=== PATIENT | female | born 1970 | race Caucasian/White ===

== ENCOUNTER 2020-07-08 17:27 | Inpatient (IN) | payer OTHER ==
[2020-07-08] MEDS ORDERED: IPRATROPIUM 0.5 MG/2.5 ML NEBU INHALATION STA (18:18)
[2020-07-08] MEDS ORDERED: ALBUTEROL NEBULIZED 2.5 MG/3 ML INHALATION STA (18:18)
[2020-07-08] MEDS ORDERED: SODIUM CHLORIDE 0.9% 500 ML 500 ML IV STA (18:18)
[2020-07-08] MEDS ORDERED: methylPREDNISolone SOD SUCCI 125 MG/2 ML VIAL IV STA (18:18)
[2020-07-08] MEDS ORDERED: cefTRIAXone IN SWFI 1,000 MG/10 ML SYRINGE IVP STA (18:22)
--- NOTE | 2020-07-08 18:35 | ED ---
General Adult HPI - General Chief complaint: Upper Respiratory Infection Stated complaint: near syncope Time Seen by Provider: 07/08/20 18:10 Source: patient Mode of arrival: ambulatory Limitations: no limitations - History of Present Illness Initial comments: 49-year-old female history of recurrent pneumonia, COPD, current smoker presenting for evaluation of cough and dyspnea. Patient states her symptoms have been on and off for the past several weeks. She has been admitted at outside hospitals with a bilateral pneumonia. She does report subjective fever and chills. She has a productive cough. She denies some left-sided chest pain worse with cough. No central radiating chest pain. No abdominal pain or vomiting. - Related Data Home Medications Medication Instructions Recorded Confirmed ALPRAZolam [Xanax] 0.5 mg PO TID 07/08/20 07/08/20 Albuterol Inhaler [Ventolin Hfa 2 puff INHALATION RT-TID PRN 07/08/20 07/08/20 Inhaler] Aspirin EC [Ecotrin Low Dose] 81 mg PO DAILY 07/08/20 07/08/20 Atorvastatin [Lipitor] 80 mg PO HS 07/08/20 07/08/20 Clopidogrel [Plavix] 75 mg PO DAILY 07/08/20 07/08/20 Cyclobenzaprine [Flexeril] 10 mg PO TID 07/08/20 07/08/20 Escitalopram [Lexapro] 20 mg PO DAILY 07/08/20 07/08/20 Hydrocodone/Acetaminophen [[place] 1 tab PO Q4-6H PRN 07/08/20 07/08/20 10-325] Isosorbide Mononitrate [Imdur] 120 mg PO BID 07/08/20 07/08/20 Metoprolol Tartrate [Lopressor] 50 mg PO BID 07/08/20 07/08/20 Omeprazole 40 mg PO BID 07/08/20 07/08/20 Pregabalin [Lyrica] 75 mg PO BID 07/08/20 07/08/20 Ranolazine [Ranolazine ER] 1,000 mg PO BID 07/08/20 07/08/20 amLODIPine [Norvasc] 10 mg PO DAILY 07/08/20 07/08/20 diphenhydrAMINE HCL [Benadryl] 50 mg PO HS 07/08/20 07/08/20 Allergies Allergy/AdvReac Type Severity Reaction Status Date / Time No Known Allergies Allergy Verified 07/08/20 17:45 Review of Systems ROS Statement: Those systems with pertinent positive or pertinent negative responses have been documented in the HPI. ROS Other: All systems not noted in ROS Statement are negative. Past Medical History Past Medical History: Asthma, Coronary Artery Disease (CAD), COPD, Diabetes Mellitus, GERD/Reflux, Osteoarthritis (OA) Additional Past Medical History / Comment(s): DDD History of Any Multi-Drug Resistant Organisms: None Reported Past Surgical History: Coronary Bypass/CABG, Heart Catheterization With Stent Past Psychological History: Anxiety, Bipolar Smoking Status: Current every day smoker Past Alcohol Use History: Occasional Past Drug Use History: Marijuana General Exam Limitations: no limitations General appearance: alert, in no apparent distress Head exam: Present: atraumatic, normocephalic Eye exam: Present: normal appearance, PERRL ENT exam: Present: mucous membranes dry Neck exam: Present: normal inspection. Absent: tenderness, meningismus Respiratory exam: Present: respiratory distress, wheezes Cardiovascular Exam: Present: regular rate, normal rhythm GI/Abdominal exam: Present: soft. Absent: distended, tenderness, guarding Extremities exam: Present: normal inspection, normal capillary refill. Absent: pedal edema Neurological exam: Present: alert, oriented X3, CN II-XII intact. Absent: motor sensory deficit Psychiatric exam: Present: normal affect, normal mood Course Vital Signs 07/08/20 07/08/20 07/08/20 17:46 18:25 18:42 Temperature 97.9 F Pulse Rate 81 77 63 Respiratory 18 26 H 20 Rate Blood Pressure 129/83 O2 Sat by Pulse 94 L 100 Oximetry 07/08/20 18:51 Temperature Pulse Rate 68 Respiratory 20 Rate Blood Pressure O2 Sat by Pulse Oximetry EKG Findings - EKG Comments: EKG Findings:: EKG: Normal sinus rhythm, rate 75, VT interval 120, QRS duration 96, QTC 424, no ST segment elevation. Medical Decision Making - Medical Decision Making 49-year-old female with cough and dyspnea. Patient has diffuse bronchospastic cough, wheezing, mild respiratory distress. She is stable vitals on arrival. Workup reveals chest x-ray concerning for pulmonary fibrosis, no focal pneumonia. She has an elevated white blood cell count of 21.6. Hemoglobin is 10.0 with no baseline for comparison. She has normal electrolytes. Negative troponin, nonischemic EKG sinus rhythm. Patient will be admitted for COPD exacerbation. Case discussed with Dr. Cotton - Lab Data Result diagrams: 07/08/20 18:54 07/08/20 18:54 Lab Results 07/08/20 07/08/20 07/08/20 Range/Units 18:54 18:54 18:54 WBC 21.6 H (3.8-10.6) k/uL RBC 3.51 L (3.80-5.40) m/uL Hgb 10.0 L (11.4-16.0) gm/dL Hct 31.9 L (34.0-46.0) % MCV 91.0 (80.0-100.0) fL MCH 28.6 (25.0-35.0) pg MCHC 31.4 (31.0-37.0) g/dL RDW 15.4 (11.5-15.5) % Plt Count 512 H (150-450) k/uL Neutrophils % 78 % Lymphocytes % 17 % Monocytes % 4 % Eosinophils % 0 % Basophils % 0 % Neutrophils # 16.9 H (1.3-7.7) k/uL Lymphocytes # 3.6 (1.0-4.8) k/uL Monocytes # 0.8 (0-1.0) k/uL Eosinophils # 0.0 (0-0.7) k/uL Basophils # 0.0 (0-0.2) k/uL Hypochromasia Slight Sodium 139 (137-145) mmol/L Potassium 4.4 (3.5-5.1) mmol/L Chloride 108 H (98-107) mmol/L Carbon Dioxide 25 (22-30) mmol/L Anion Gap 6 mmol/L BUN 17 (7-17) mg/dL Creatinine 0.86 (0.52-1.04) mg/dL Est GFR (CKD-EPI)AfAm >90 (>60 ml/min/1.73 sqM) Est GFR (CKD-EPI)NonAf 79 (>60 ml/min/1.73 sqM) Glucose 145 H (74-99) mg/dL Plasma Lactic Acid Sarthak 1.3 (0.7-2.0) mmol/L Calcium 9.7 (8.4-10.2) mg/dL Magnesium 2.0 (1.6-2.3) mg/dL Total Bilirubin 0.4 (0.2-1.3) mg/dL AST 24 (14-36) U/L ALT 19 (4-34) U/L Alkaline Phosphatase 123 (38-126) U/L Troponin I (0.000-0.034) ng/mL NT-Pro-B Natriuret Pep pg/mL Total Protein 6.8 (6.3-8.2) g/dL Albumin 4.1 (3.5-5.0) g/dL 07/08/20 07/08/20 Range/Units 18:54 18:54 WBC (3.8-10.6) k/uL RBC (3.80-5.40) m/uL Hgb (11.4-16.0) gm/dL Hct (34.0-46.0) % MCV (80.0-100.0) fL MCH (25.0-35.0) pg MCHC (31.0-37.0) g/dL RDW (11.5-15.5) % Plt Count (150-450) k/uL Neutrophils % % Lymphocytes % % Monocytes % % Eosinophils % % Basophils % % Neutrophils # (1.3-7.7) k/uL Lymphocytes # (1.0-4.8) k/uL Monocytes # (0-1.0) k/uL Eosinophils # (0-0.7) k/uL Basophils # (0-0.2) k/uL Hypochromasia Sodium (137-145) mmol/L Potassium (3.5-5.1) mmol/L Chloride (98-107) mmol/L Carbon Dioxide (22-30) mmol/L Anion Gap mmol/L BUN (7-17) mg/dL Creatinine (0.52-1.04) mg/dL Est GFR (CKD-EPI)AfAm (>60 ml/min/1.73 sqM) Est GFR (CKD-EPI)NonAf (>60 ml/min/1.73 sqM) Glucose (74-99) mg/dL Plasma Lactic Acid Sarthak (0.7-2.0) mmol/L Calcium (8.4-10.2) mg/dL Magnesium (1.6-2.3) mg/dL Total Bilirubin (0.2-1.3) mg/dL AST (14-36) U/L ALT (4-34) U/L Alkaline Phosphatase (38-126) U/L Troponin I <0.012 (0.000-0.034) ng/mL NT-Pro-B Natriuret Pep 1930 pg/mL Total Protein (6.3-8.2) g/dL Albumin (3.5-5.0) g/dL Disposition Clinical Impression: COPD exacerbation Disposition: ADMITTED IP TO THIS HOSP Condition: Stable Is patient prescribed a controlled substance at d/c from ED?: No Referrals: Nonstaff,Physician [Primary Care Provider] - 1-2 days Decision to Admit Reason: Admit from EC Decision Date: 07/08/20 Decision Time: 19:53
[2020-07-08 19:21] LABS: Basophils % (A) 0 %; Eosinophils % (A) 0 %; HCT 31.9 % (34.0-46.0); Hypochromasia Slight; Lymphocytes # (A) 3.6 k/uL (1.0-4.8); Lymphocytes % (A) 17 %; MCH 28.6 pg (25.0-35.0); MCHC 31.4 g/dL (31.0-37.0); Mean Platelet Volume 7.2; Monocytes # (A) 0.8 k/uL (0-1.0); Monocytes % (A) 4 %; Neutrophils # (A) 16.9 k/uL (1.3-7.7); Neutrophils % (A) 78 %; Platelet Count 512 k/uL (150-450); RBC 3.51 m/uL (3.80-5.40); RDW 15.4 % (11.5-15.5); WBC 21.6 k/uL (3.8-10.6)
--- NOTE | 2020-07-08 19:28 | XR ---
EXAMINATION TYPE: XR chest 2V DATE OF EXAM: 07/08/2020 COMPARISON: NONE HISTORY: Difficulty breathing TECHNIQUE: 3 views FINDINGS: Heart is normal. Lungs are clear of consolidation. There are sternal wires. There are chest leads. Costophrenic angles are clear. There is very slight coarsening of interstitial markings. IMPRESSION: Mild pulmonary fibrotic changes. No heart failure seen.
[2020-07-08 19:30] LABS: ALT 19 U/L (4-34); AST 24 U/L (14-36); African American GFR (CKD) >90 (>60 ml/min/1.73 sqM); Albumin 4.1 g/dL (3.5-5.0); Alkaline Phosphatase 123 U/L (38-126); Anion Gap 6 mmol/L; Blood Urea Nitrogen 17 mg/dL (7-17); Calcium 9.7 mg/dL (8.4-10.2); Carbon Dioxide 25 mmol/L (22-30); Chloride 108 mmol/L (98-107); Glucose 145 mg/dL (74-99); Non-African American GFR(CKD) 79 (>60 ml/min/1.73 sqM); Potassium 4.4 mmol/L (3.5-5.1); Sodium 139 mmol/L (137-145); Total Bilirubin 0.4 mg/dL (0.2-1.3); Total Protein 6.8 g/dL (6.3-8.2)
[2020-07-08] MEDS ORDERED: IPRATROPIUM-ALBUTEROL 3 ML NEB INHALATION PRN (19:51)
[2020-07-08] MEDS ORDERED: HYDROmorphone 1 MG/ML 1 ML SYRINGE IVP STA (19:57)
[2020-07-08 19:59] LABS: INR 0.9 (<1.2); Prothrombin Time 9.2 sec (9.0-12.0)
[2020-07-08 20:00] LABS: Partial Thromboplastin Time 20.8 sec (22.0-30.0)
[2020-07-08] MEDS: IPRATROPIUM-ALBUTEROL 3 ML NEB INHALATION SCH (20:10)
[2020-07-08] MEDS: CYCLOBENZAPRINE 10 MG TAB PO SCH (22:34)
[2020-07-08] MEDS: ALPRAZolam 0.5 MG TAB PO SCH (22:34)
[2020-07-08] MEDS: ATORVASTATIN 80 MG TAB PO SCH (22:34)
[2020-07-08] MEDS: PANTOPRAZOLE 40 MG TABLET PO SCH (22:35)
[2020-07-08] MEDS: METOPROLOL TARTRATE 50 MG TAB PO SCH (22:35)
[2020-07-08] MEDS: ISOSORBIDE MONONITRATE ER 60 MG TAB.ER.24H PO SCH (22:35)
[2020-07-09] MEDS: methylPREDNISolone SOD SUCCI 125 MG/2 ML VIAL IV SCH ×4 (00:43→17:30)
[2020-07-09 05:56] LABS: Glucose,Whole Blood 453 mg/dL (75-99)
[2020-07-09] MEDS: INSULIN ASPART (NovoLOG) 100 UNIT/ML VIAL SQ SCH ×4 (06:27→21:46)
[2020-07-09 06:54] LABS: Glucose,Whole Blood 396 mg/dL (75-99)
[2020-07-09] MEDS: IPRATROPIUM-ALBUTEROL 3 ML NEB INHALATION SCH ×4 (07:56→20:09)
[2020-07-09] MEDS: METOPROLOL TARTRATE 50 MG TAB PO SCH ×2 (08:08→21:48)
[2020-07-09] MEDS: ASPIRIN 81 MG PO SCH (08:08)
[2020-07-09] MEDS: ALPRAZolam 0.5 MG TAB PO SCH ×3 (08:08→21:47)
[2020-07-09] MEDS: amLODIPine 10 MG TAB PO SCH (08:09)
[2020-07-09] MEDS: ESCITALOPRAM 20 MG TAB PO SCH (08:09)
[2020-07-09] MEDS: RANOLAZINE 500 MG TAB.ER.12H PO SCH ×2 (08:09→21:47)
[2020-07-09] MEDS: CLOPIDOGREL 75 MG TAB PO SCH (08:09)
[2020-07-09] MEDS: CYCLOBENZAPRINE 10 MG TAB PO SCH ×3 (08:09→21:47)
[2020-07-09] MEDS: PANTOPRAZOLE 40 MG TABLET PO SCH ×2 (08:09→21:47)
[2020-07-09] MEDS: ISOSORBIDE MONONITRATE ER 60 MG TAB.ER.24H PO SCH (08:09)
[2020-07-09] MEDS: HYDROcodone/APAP 10-325MG 1 EACH TAB PO PRN ×2 (11:31→17:33)
[2020-07-09] MEDS: AZITHROMYCIN 500 MG TAB PO SCH (11:32)
[2020-07-09 11:39] LABS: Glucose,Whole Blood 245 mg/dL (75-99)
--- NOTE | 2020-07-09 12:28 | P.HPIM ---
History of Present Illness This is a pleasant 49 years old female with past medical history of diabetes mellitus, COPD, coronary artery disease, asthma, GERD, osteoarthritis, she is a status post CABG and cardiac bypass surgery. She is a cigarette smoker with anxiety and depression. She is a patient of Dr. Steele .Patient states she came to the hospital because of dyspnea of one week duration, earlier today week and she went to [facility] until her she has pneumonia but she refused to stay and she went to [facility] before she's been transferred to this hospital [facility]. Besides the dyspnea also patient complaining of from with cough but no thickness coming up associated with significant right lateral chest pain felt like sharp increased with coughing and deep breathing. Also she has loose bowel movements about 4 times per day with some vomiting but no abdominal pain She denies depression. She smokes about 1 pack per day and she is consult and she wants nicotine patch. Occasional alcohol and she uses marijuana daily. Vitals are stable and she saturating 95% and 2 L oxygen via nasal cannula patient is afebrile. Labs showed leukocytosis of 21.6. Hemoglobin is 10 and platelets 512. BMP is unremarkable, glucose is elevated 453 and 396. Liver enzymes are unremarkable and troponin is negative less than 0.012, proBNP is 1930. EKG showing normal sinus rhythm at 79 BPM. Chest x-ray showing mild pulmonary fibrotic changes with no heart failure seen. In the emergency room patient was given antibiotic block ceftazidime and ceftriaxone, and started on some Medrol 60 mg, Protonix twice daily and 500 bolus of normal saline. Review of Systems CONSTITUTIONAL: No fever, no malaise, no fatigue. HEENT: No recent visual problems or hearing problems. Denied any sore throat. CARDIOVASCULAR: No orthopnea, PND, no palpitations, no syncope. PULMONARY: No shortness of breath, no cough, no hemoptysis. GASTROINTESTINAL: No diarrhea, no nausea, no vomiting, no abdominal pain. Normoactive bowel sounds. NEUROLOGICAL: No headaches, no weakness, no numbness. HEMATOLOGICAL: Denies any bleeding or petechiae. GENITOURINARY: Denies any burning micturition, frequency, or urgency. MUSCULOSKELETAL/RHEUMATOLOGICAL: Denies any joint pain, swelling, or any muscle pain. ENDOCRINE: Denies any polyuria or polydipsia. Past Medical History Past Medical History: Asthma, Coronary Artery Disease (CAD), COPD, Diabetes Mellitus, GERD/Reflux, Osteoarthritis (OA) Additional Past Medical History / Comment(s): DDD History of Any Multi-Drug Resistant Organisms: None Reported Past Surgical History: Coronary Bypass/CABG, Heart Catheterization With Stent Past Anesthesia/Blood Transfusion Reactions: No Reported Reaction Date of Last Stent Placement:: 11/2018 Past Psychological History: Anxiety, Bipolar Smoking Status: Current every day smoker Past Alcohol Use History: Occasional Past Drug Use History: Marijuana Medications and Allergies Home Medications Medication Instructions Recorded Confirmed Type ALPRAZolam [Xanax] 0.5 mg PO TID 07/08/20 07/08/20 History Albuterol Inhaler [Ventolin Hfa 2 puff INHALATION RT-TID PRN 07/08/20 07/08/20 History Inhaler] Aspirin EC [Ecotrin Low Dose] 81 mg PO DAILY 07/08/20 07/08/20 History Atorvastatin [Lipitor] 80 mg PO HS 07/08/20 07/08/20 History Clopidogrel [Plavix] 75 mg PO DAILY 07/08/20 07/08/20 History Cyclobenzaprine [Flexeril] 10 mg PO TID 07/08/20 07/08/20 History Escitalopram [Lexapro] 20 mg PO DAILY 07/08/20 07/08/20 History Hydrocodone/Acetaminophen [[place] 1 tab PO Q4-6H PRN 07/08/20 07/08/20 History 10-325] Metoprolol Tartrate [Lopressor] 50 mg PO BID 07/08/20 07/08/20 History Omeprazole 40 mg PO BID 07/08/20 07/08/20 History Pregabalin [Lyrica] 75 mg PO BID 07/08/20 07/08/20 History Ranolazine [Ranolazine ER] 1,000 mg PO BID 07/08/20 07/08/20 History amLODIPine [Norvasc] 10 mg PO DAILY 07/08/20 07/08/20 History diphenhydrAMINE HCL [Benadryl] 50 mg PO HS 07/08/20 07/08/20 History Isosorbide Dinitrate 30 mg PO BID 07/09/20 07/09/20 History Allergies Allergy/AdvReac Type Severity Reaction Status Date / Time No Known Allergies Allergy Verified 07/08/20 17:45 Physical Exam Vitals: Vital Signs Temp Pulse Pulse Resp BP BP Pulse Ox 07/09/20 08:05 97.6 F 79 16 114/70 95 07/09/20 02:56 88 16 07/09/20 02:45 97.9 F 88 16 142/77 92 L 07/08/20 21:00 97.9 F 88 16 142/77 92 L 07/08/20 20:35 83 18 07/08/20 20:28 95 07/08/20 20:26 83 18 07/08/20 18:51 68 20 07/08/20 18:42 63 20 07/08/20 18:25 77 26 H 129/83 100 07/08/20 17:46 97.9 F 81 18 94 L Intake and Output 07/08/20 07/09/20 07/09/20 22:59 06:59 14:59 Intake Total 240 Balance 240 Intake: Oral 240 Other: # Voids 1 1 Weight 89.358 kg GENERAL: The patient is alert and oriented x3, not in any acute distress. Well developed, well nourished. HEENT: Pupils are round and equally reacting to light. EOMI. No scleral icterus. No conjunctival pallor. Normocephalic, atraumatic. No pharyngeal erythema. No thyromegaly. CARDIOVASCULAR: S1 and S2 present. No murmurs, rubs, or gallops. -PULMONARY: Chest is clear to auscultation, harsh breath sounds with wheezing an d prolonged expiration ABDOMEN: Soft, nontender, nondistended, normoactive bowel sounds. No palpable organomegaly. MUSCULOSKELETAL: No joint swelling or deformity. EXTREMITIES: No cyanosis, clubbing, or pedal edema. NEUROLOGICAL: Gross neurological examination did not reveal any focal deficits. SKIN: No rashes. No petechiae Results CBC & Chem 7: 07/08/20 18:54 07/08/20 18:54 Labs: Abnormal Lab Results - Last 24 Hours (Table) 07/08/20 07/08/20 07/08/20 Range/Units 18:54 18:54 18:54 WBC 21.6 H (3.8-10.6) k/uL RBC 3.51 L (3.80-5.40) m/uL Hgb 10.0 L (11.4-16.0) gm/dL Hct 31.9 L (34.0-46.0) % Plt Count 512 H (150-450) k/uL Neutrophils # 16.9 H (1.3-7.7) k/uL APTT 20.8 L (22.0-30.0) sec Chloride 108 H (98-107) mmol/L Glucose 145 H (74-99) mg/dL POC Glucose (mg/dL) (75-99) mg/dL 07/09/20 07/09/20 Range/Units 05:54 06:52 WBC (3.8-10.6) k/uL RBC (3.80-5.40) m/uL Hgb (11.4-16.0) gm/dL Hct (34.0-46.0) % Plt Count (150-450) k/uL Neutrophils # (1.3-7.7) k/uL APTT (22.0-30.0) sec Chloride (98-107) mmol/L Glucose (74-99) mg/dL POC Glucose (mg/dL) 453 H 396 H (75-99) mg/dL Assessment and Plan Assessment: Acute COPD exacerbation Acute tracheobronchitis Reactive gastroenteritis Nicotine dependence 2 diabetes mellitus Gastroesophageal reflux disease Osteoarthritis History of coronary artery disease status post CABG osteoarthritis Substance abuse Plan: This is a pleasant 49 years old female who was admitted for suspected COPD exacerbation. Continue with steroids, breathing treatment and oxygen as needed. Call for pulmonary consult. Continue with ceftriaxone and Zithromax. Sent for sputum culture and C. diff Labs and medication were reviewed.. Continue same treatment. Continue with symptomatic treatment. Resume home medication. Monitor lytes and vitals. DVT and GI prophylaxis. Further recommendations depends on the clinical course of the patient DVT prophylaxis: Subcutaneous heparin GI Prophylaxis: Pepcid PT/OT: Pending Prognosis is guarded
--- NOTE | 2020-07-09 13:05 | P.CNPUL ---
History of Present Illness Consult date: 07/09/20 Requesting physician: Kayleigh Cotton Reason for consult: COPD Chief complaint: Shortness of breath cough and wheezing History of present illness: This is a 49-year-old female, [id number] smoker, continues to smoke, patient is known to have history of severe COPD, however she is not O2 dependent, not prednisone dependent, she has mostly an updraft machine at home, and inhalers. Patient is also known to have history of severe underlying coronary artery disease, previous CABG and multiple stents. Last Monday, the patient was seen by her primary care physician in [place], and she was advised admission to [facility]. She was in the hospital for one day, patient apparently signed out AGAINST MEDICAL ADVICE, readmitted at [facility] for symptoms of COPD exacerbation. Patient was transferred to [facility] with worsening symptoms of cough wheezing and shortness of breath. Patient denies any fever, no chills, no hemoptysis, describes cough as dry hacking cough. Denies any nausea vomiting, she had a few loose bowel movements prior to admission. Patient has history of chronic pain syndrome, and she is maintained on multiple medications for pain control. Chest x-ray on this admission showed no evidence of infiltrate. Her WBC count was noted to be elevated at 21.6 hemoglobin is at 10 electrolytes are normal renal profile is normal. BNP level was a bit elevated at 1930. Review of Systems CONSTITUTIONAL: One episode of fever no malaise, no weight loss. HEENT: No sore throat, no earache, no nasal discharge. CARDIOVASCULAR: History of underlying coronary artery disease, however the patient has no active anginal symptoms PULMONARY: As noted in HPI, mostly symptoms of COPD exacerbation. GASTROINTESTINAL: As noted in HPI. NEUROLOGICAL: No headache blurred vision or dizziness. HEMATOLOGICAL: No clotting bleeding or bruising. GENITOURINARY: Dysuria frequency urgency or hematuria. MUSCULOSKELETAL/RHEUMATOLOGICAL: Chronic pain syndrome. ENDOCRINE: Heat or cold intolerance. Psychiatric: No symptoms of depression. Past Medical History Past Medical History: Asthma, Coronary Artery Disease (CAD), COPD, Diabetes Mellitus, GERD/Reflux, Osteoarthritis (OA) Additional Past Medical History / Comment(s): DDD History of Any Multi-Drug Resistant Organisms: None Reported Past Surgical History: Coronary Bypass/CABG, Heart Catheterization With Stent Past Anesthesia/Blood Transfusion Reactions: No Reported Reaction Date of Last Stent Placement:: 11/2018 Past Psychological History: Anxiety, Bipolar Smoking Status: Current every day smoker Past Alcohol Use History: Occasional Past Drug Use History: Marijuana Medications and Allergies Home Medications Medication Instructions Recorded Confirmed Type ALPRAZolam [Xanax] 0.5 mg PO TID 07/08/20 07/08/20 History Albuterol Inhaler [Ventolin Hfa 2 puff INHALATION RT-TID PRN 07/08/20 07/08/20 History Inhaler] Aspirin EC [Ecotrin Low Dose] 81 mg PO DAILY 07/08/20 07/08/20 History Atorvastatin [Lipitor] 80 mg PO HS 07/08/20 07/08/20 History Clopidogrel [Plavix] 75 mg PO DAILY 07/08/20 07/08/20 History Cyclobenzaprine [Flexeril] 10 mg PO TID 07/08/20 07/08/20 History Escitalopram [Lexapro] 20 mg PO DAILY 07/08/20 07/08/20 History Hydrocodone/Acetaminophen [[place] 1 tab PO Q4-6H PRN 07/08/20 07/08/20 History 10-325] Metoprolol Tartrate [Lopressor] 50 mg PO BID 07/08/20 07/08/20 History Omeprazole 40 mg PO BID 07/08/20 07/08/20 History Pregabalin [Lyrica] 75 mg PO BID 07/08/20 07/08/20 History Ranolazine [Ranolazine ER] 1,000 mg PO BID 07/08/20 07/08/20 History amLODIPine [Norvasc] 10 mg PO DAILY 07/08/20 07/08/20 History diphenhydrAMINE HCL [Benadryl] 50 mg PO HS 07/08/20 07/08/20 History Isosorbide Dinitrate 30 mg PO BID 07/09/20 07/09/20 History Allergies Allergy/AdvReac Type Severity Reaction Status Date / Time No Known Allergies Allergy Verified 07/08/20 17:45 Physical Exam Vitals: Vital Signs Temp Pulse Pulse Resp BP BP Pulse Ox 07/09/20 08:05 97.6 F 79 16 114/70 95 07/09/20 02:56 88 16 07/09/20 02:45 97.9 F 88 16 142/77 92 L 10/14/20 21:00 97.9 F 88 16 142/77 92 L 07/08/20 20:35 83 18 07/08/20 20:28 95 07/08/20 20:26 83 18 07/08/20 18:51 68 20 07/08/20 18:42 63 20 07/08/20 18:25 77 26 H 129/83 100 07/08/20 17:46 97.9 F 81 18 94 L Intake and Output 07/08/20 07/09/20 07/09/20 22:59 06:59 14:59 Intake Total 240 200 Balance 240 200 Intake: Oral 240 Other 200 Other: # Voids 1 1 Weight 89.358 kg Physical Exam: Revealed 49-year-old female in no distress. Head: Atraumatic, normocephalic. HEENT:[Neck is supple.] [No neck masses.] [No thyromegaly.] [No JVD.] PERRLA, EOMI, no icterus. Chest: [Symmetrical chest expansion, diffuse rhonchi and wheezes bilaterally.] Cardiac Exam: [Normal S1 and S2, no S3 gallop, no murmur.] Abdomen: [Obese, Soft, nontender, no megaly, no rebound, no guarding, normal bowel sounds.] Extremities: [No clubbing, trace of bipedal edema, no cyanosis.] Neurological Exam: [No focal neurologic deficit.] Alert and oriented 3. Skin: No rashes. Psychiatric: Normal mood affect and normal mental status examination. Results - Laboratory Findings CBC and BMP: 07/08/20 18:54 07/08/20 18:54 PT/INR, D-dimer PT 9.2 sec (9.0-12.0) 07/08/20 18:54 INR 0.9 (<1.2) 07/08/20 18:54 Abnormal lab findings: Abnormal Labs 07/08/20 07/08/20 07/08/20 18:54 18:54 18:54 WBC 21.6 H RBC 3.51 L Hgb 10.0 L Hct 31.9 L Plt Count 512 H Neutrophils # 16.9 H APTT 20.8 L Chloride 108 H Glucose 145 H POC Glucose (mg/dL) 07/09/20 07/09/20 07/09/20 05:54 06:52 11:37 WBC RBC Hgb Hct Plt Count Neutrophils # APTT Chloride Glucose POC Glucose (mg/dL) 453 H 396 H 245 H - Diagnostic Findings Chest x-ray: image reviewed (Chest x-ray as noted in HPI.) Assessment and Plan Assessment: Impression: Acute exacerbation of COPD. Acute tracheobronchitis. Tobacco dependence syndrome. GERD without esophagitis. Type 2 diabetes. History of underlying coronary artery disease. History of substance abuse. Recommendation: Continue present course of bronchodilators. Continue antibiotics. Continue Solu-Medrol. Continue Symbicort inhaler and DuoNeb updrafts 4 times a day and when necessary. Continue GI and DVT prophylaxis. Possible discharge in the next 48 hours. We'll continue to follow. Counseled regarding smoking cessation. Time with Patient: Greater than 30
[2020-07-09 16:42] LABS: Glucose,Whole Blood 192 mg/dL (75-99)
[2020-07-09] MEDS: SYMBICORT 160-4.5 MCG INHALER INHALATION SCH (20:09)
[2020-07-09] MEDS ORDERED: HEPARIN SODIUM,PORCINE 5,000 UNIT/ML 1 ML VIAL SQ SCH (21:00)
[2020-07-09 21:09] LABS: Glucose,Whole Blood 294 mg/dL (75-99)
[2020-07-09] MEDS: FAMOTIDINE 20 MG/2 ML VIAL IV SCH (21:47)
[2020-07-09] MEDS: ISOSORBIDE DINITRATE 10 MG TAB PO SCH (21:47)
[2020-07-09] MEDS: ATORVASTATIN 80 MG TAB PO SCH (21:48)
[2020-07-09] MEDS: HEPARIN SODIUM,PORCINE 5,000 UNIT/ML 1 ML VIAL SQ SCH (21:48)
[2020-07-10] MEDS: methylPREDNISolone SOD SUCCI 125 MG/2 ML VIAL IV SCH ×5 (00:34→23:46)
[2020-07-10] MEDS: HYDROcodone/APAP 10-325MG 1 EACH TAB PO PRN ×2 (03:28→21:00)
[2020-07-10 06:27] LABS: Glucose,Whole Blood 286 mg/dL (75-99)
[2020-07-10] MEDS: SYMBICORT 160-4.5 MCG INHALER INHALATION SCH ×2 (07:24→20:03)
[2020-07-10] MEDS: IPRATROPIUM-ALBUTEROL 3 ML NEB INHALATION SCH ×4 (07:24→20:04)
[2020-07-10 08:00] LABS: Basophils % (A) 0 %; Eosinophils % (A) 0 %; HCT 32.9 % (34.0-46.0); HGB 10.4 gm/dL (11.4-16.0); Hypochromasia Slight; Lymphocytes # (A) 1.3 k/uL (1.0-4.8); Lymphocytes % (A) 11 %; MCH 28.9 pg (25.0-35.0); MCHC 31.8 g/dL (31.0-37.0); Mean Platelet Volume 7.1; Monocytes # (A) 0.4 k/uL (0-1.0); Monocytes % (A) 4 %; Neutrophils # (A) 9.5 k/uL (1.3-7.7); Neutrophils % (A) 84 %; Platelet Count 479 k/uL (150-450); RBC 3.61 m/uL (3.80-5.40); RDW 15.6 % (11.5-15.5); WBC 11.3 k/uL (3.8-10.6)
[2020-07-10 08:10] LABS: African American GFR (CKD) >90 (>60 ml/min/1.73 sqM); Anion Gap 6 mmol/L; Blood Urea Nitrogen 15 mg/dL (7-17); Calcium 9.2 mg/dL (8.4-10.2); Carbon Dioxide 27 mmol/L (22-30); Chloride 103 mmol/L (98-107); Glucose 273 mg/dL (74-99); Non-African American GFR(CKD) >90 (>60 ml/min/1.73 sqM); Sodium 136 mmol/L (137-145)
[2020-07-10] MEDS: INSULIN ASPART (NovoLOG) 100 UNIT/ML VIAL SQ SCH ×4 (08:29→21:01)
[2020-07-10] MEDS: ASPIRIN 81 MG PO SCH (08:35)
[2020-07-10] MEDS: amLODIPine 10 MG TAB PO SCH (08:35)
[2020-07-10] MEDS: ALPRAZolam 0.5 MG TAB PO SCH ×3 (08:35→20:59)
[2020-07-10] MEDS: FAMOTIDINE 20 MG/2 ML VIAL IV SCH (08:36)
[2020-07-10] MEDS: CYCLOBENZAPRINE 10 MG TAB PO SCH ×3 (08:36→20:59)
[2020-07-10] MEDS: CLOPIDOGREL 75 MG TAB PO SCH (08:36)
[2020-07-10] MEDS: AZITHROMYCIN 500 MG TAB PO SCH (08:36)
[2020-07-10] MEDS: ESCITALOPRAM 20 MG TAB PO SCH (08:36)
[2020-07-10] MEDS: HEPARIN SODIUM,PORCINE 5,000 UNIT/ML 1 ML VIAL SQ SCH ×2 (08:37→21:01)
[2020-07-10] MEDS: METOPROLOL TARTRATE 50 MG TAB PO SCH ×2 (08:37→21:00)
[2020-07-10] MEDS: RANOLAZINE 500 MG TAB.ER.12H PO SCH ×2 (08:38→20:59)
[2020-07-10] MEDS: PANTOPRAZOLE 40 MG TABLET PO SCH ×2 (08:42→21:00)
[2020-07-10] MEDS: ISOSORBIDE DINITRATE 10 MG TAB PO SCH ×2 (08:43→21:03)
[2020-07-10] MEDS ORDERED: TRIMETHOBENZAMIDE 300 MG CAP PO PRN (09:54)
[2020-07-10] MEDS ORDERED: MORPHINE SULFATE 4 MG/ML SYRINGE IVP STA (09:54)
[2020-07-10 10:44] LABS: Glucose,Whole Blood 194 mg/dL (75-99)
[2020-07-10 11:51] LABS: Glucose,Whole Blood 144 mg/dL (75-99)
--- NOTE | 2020-07-10 12:14 | P.PN ---
Subjective Progress Note Date: 07/10/20 Principal diagnosis: Acute exacerbation of COPD This is a 49-year-old female, [id number] smoker, continues to smoke, patient is known to have history of severe COPD, however she is not O2 dependent, not prednisone dependent, she has mostly an updraft machine at home, and inhalers. Patient is also known to have history of severe underlying coronary artery disease, previous CABG and multiple stents. Last Monday, the patient was seen by her primary care physician in [facility], and she was advised admission to [facility]. She was in the hospital for one day, patient apparently signed out AGAINST MEDICAL ADVICE, readmitted at [facility] for symptoms of COPD exacerbation. Patient was transferred to [facility] with worsening symptoms of cough wheezing and shortness of breath. Patient denies any fever, no chills, no hemoptysis, describes cough as dry hacking cough. Denies any nausea vomiting, she had a few loose bowel movements prior to admission. Patient has history of chronic pain syndrome, and she is maintained on multiple medications for pain control. Chest x-ray on this admission showed no evidence of infiltrate. Her WBC count was noted to be elevated at 21.6 hemoglobin is at 10 electrolytes are normal renal profile is normal. BNP level was a bit elevated at 1930. Patient was reevaluated today on 07/10/20, feeling better from the pulmonary perspective, less cough and less wheezing, however she had an episode which seem to be a vasovagal episode patient was standing in the room, and she felt extremely lightheaded and dizzy. Patient was placed in bed and assisted by nursing, and she recovered quite well. Pulmonary-reina better, less cough and less wheezing less shortness of breath. Obviously seems to be responding well to her present course of bronchodilators. CBC is relatively normal electrolytes and renal profile are normal Objective - Vital Signs Vital signs: Vital Signs Temp 97.3 F L 07/10/20 09:00 Pulse 82 07/10/20 11:40 Resp 20 07/10/20 09:00 BP 145/75 07/10/20 11:40 Pulse Ox 98 07/10/20 11:40 Intake & Output 07/09/20 07/10/20 07/10/20 18:59 06:59 18:59 Intake Total 200 Balance 200 Intake: Other 200 Other: Voiding Method Toilet Toilet # Voids 1 1 - Exam Physical Exam: Revealed 49-year-old female in no distress. Laying flat in bed, felt lightheaded earlier, and she is recovering. Head: Atraumatic, normocephalic. HEENT:[Neck is supple.] [No neck masses.] [No thyromegaly.] [No JVD.] PERRLA, EOMI, no icterus. Chest: [Symmetrical chest expansion, minimal wheezing on forced expiratory maneuver. Cardiac Exam: [Normal S1 and S2, no S3 gallop, no murmur.] Abdomen: [Obese, Soft, nontender, no megaly, no rebound, no guarding, normal bowel sounds.] Extremities: [No clubbing, trace of bipedal edema, no cyanosis.] Neurological Exam: [No focal neurologic deficit.] Alert and oriented 3. Skin: No rashes. Psychiatric: Normal mood affect and normal mental status examination. - Labs CBC & Chem 7: 07/10/20 07:07 07/10/20 07:07 Labs: Abnormal Lab Results - Last 24 Hours (Table) 07/09/20 07/09/20 07/10/20 Range/Units 16:39 21:07 06:25 WBC (3.8-10.6) k/uL RBC (3.80-5.40) m/uL Hgb (11.4-16.0) gm/dL Hct (34.0-46.0) % RDW (11.5-15.5) % Plt Count (150-450) k/uL Neutrophils # (1.3-7.7) k/uL Sodium (137-145) mmol/L Glucose (74-99) mg/dL POC Glucose (mg/dL) 192 H 294 H 286 H (75-99) mg/dL 07/10/20 07/10/20 07/10/20 Range/Units 07:07 07:07 10:42 WBC 11.3 H (3.8-10.6) k/uL RBC 3.61 L (3.80-5.40) m/uL Hgb 10.4 L (11.4-16.0) gm/dL Hct 32.9 L (34.0-46.0) % RDW 15.6 H (11.5-15.5) % Plt Count 479 H (150-450) k/uL Neutrophils # 9.5 H (1.3-7.7) k/uL Sodium 136 L (137-145) mmol/L Glucose 273 H (74-99) mg/dL POC Glucose (mg/dL) 194 H (75-99) mg/dL 07/10/20 Range/Units 11:50 WBC (3.8-10.6) k/uL RBC (3.80-5.40) m/uL Hgb (11.4-16.0) gm/dL Hct (34.0-46.0) % RDW (11.5-15.5) % Plt Count (150-450) k/uL Neutrophils # (1.3-7.7) k/uL Sodium (137-145) mmol/L Glucose (74-99) mg/dL POC Glucose (mg/dL) 144 H (75-99) mg/dL Microbiology - Last 24 Hours (Table) 07/08/20 18:54 Blood Culture - Preliminary Blood No Growth after 24 hours Assessment and Plan Assessment: Impression: Acute exacerbation of COPD. Acute tracheobronchitis. Tobacco dependence syndrome. GERD without esophagitis. Type 2 diabetes. History of underlying coronary artery disease. History of substance abuse. Possible vasovagal episode. Recommendation: Continue present course of bronchodilators. Continue antibiotics. Continue Solu-Medrol. Continue Symbicort inhaler and DuoNeb updrafts 4 times a day and when necessary. Continue GI and DVT prophylaxis. Consider discharge planning in the next 24 hours. Counseled regarding smoking cessation. Time with Patient: Less than 30
[2020-07-10 16:48] LABS: Glucose,Whole Blood 207 mg/dL (75-99)
--- NOTE | 2020-07-10 18:43 | P.PN ---
Subjective This is a pleasant 32 years old female with past medical history of asthma and polycystic ovarian syndrome and closed head injury 10 years ago from a fall. Anxiety bipolar and depression. Presents with fever, hypertension and abdominal pain. Patient states she came family because of her left side, abdominal pain that is been going on for 2 week s, also she is been feeling dizzy mostly related to her hypotension. Associated with vomiting about once and loose bowel movement each time she eats starts about 2-3 times also patient found to have fever the abdominal pain is in the left upper quadrant area, left flank area radiating down into the pelvic area felt about 8/10 in severity but currently is pain free and rated 0/10 by patient. Patient went to [facility] where they checked her urine and they told her she has little blood in it.however UA checked here it's completely normal and patient denies any dysuria or other abnormality. Patient does has IUD so she really has no menstrual period as she states She denies smoking, alcohol or illicit drugs. She denies depression or suicidal ideation. On admission she has a fever of 101.1. Blood pressure was 92/42, she received 3 L boluses of normal saline as per documentation. Currently her blood pressure is 85/50. Labs showed leukocytosis of 12.7 K, with leukopenia at 0.3%. risks of CBC is unremarkable. D-dimer is at 0.74. Elevated lactic acid 2.4 Back to normal at 1.0. Lactate dehydrogenase elevated at 697, C-reactive protein is elevated mildly at 13.1. Urinalysis is unremarkable Chest x-ray: No active cardiopulmonary disease. Radiologist. CT of the abdomen and pelvis without contrast showing no acute abnormality of the abdomen and pelvis. EKG showed normal sinus rhythm at 86 BPM in the emergency room she received 3 boluses of normal saline of total of 3 L, and continued on normal saline at a rate of 1 30 mL/h. She received morphine wants and Toradol and Zofran. She was continued on levofloxacin orally 750 mg dailyand Flagyl orally.already given this morning 07/10/2020 Patient breathing status is improving with less cough and less wheezing however she was feeling nauseous and medication provided and on her way to the restroom patient developed dizziness and was going to pass out mostly due to vasovagal pre-syncope, happened while pulmonary team rounding. Orthostatic vitals are negative. Leukocytosis improved from 20 1K down to 11 K. Physical therapist evaluated the patient and recommended home Patient to continue on Zithromax and ceftriaxone and submental 60 mg. Tigan added. She is on aspirin and Plavix on subcu heparin. Objective - Vital Signs Vital signs: Vital Signs Temp 97.3 F L 07/10/20 09:00 Pulse 82 07/10/20 11:40 Resp 20 07/10/20 09:00 BP 145/75 07/10/20 11:40 Pulse Ox 98 07/10/20 11:40 Intake & Output 07/09/20 07/10/20 07/10/20 18:59 06:59 18:59 Intake Total 200 600 Balance 200 600 Intake: Oral 600 Other 200 Other: Voiding Method Toilet Toilet # Voids 1 2 - Exam -GENERAL: The patient is alert and oriented x3, not in any acute distress. obese HEENT: Pupils are round and equally reacting to light. EOMI. No scleral icterus. No conjunctival pallor. Normocephalic, atraumatic. No pharyngeal erythema. No thyromegaly. CARDIOVASCULAR: S1 and S2 present. No murmurs, rubs, or gallops. PULMONARY: Chest is clear to auscultation, no wheezing or crackles. -ABDOMEN: Soft, mild LUQ tenderness, no rebound tenderness or guarding, nondistended, normoactive bowel sounds. No palpable organomegaly. MUSCULOSKELETAL: No joint swelling or deformity. EXTREMITIES: No cyanosis, clubbing, or pedal edema. NEUROLOGICAL: Gross neurological examination did not reveal any focal deficits. SKIN: No rashes. No petechiae - Labs CBC & Chem 7: 07/10/20 07:07 07/10/20 07:07 Labs: Abnormal Lab Results - Last 24 Hours (Table) 07/09/20 07/09/20 07/10/20 Range/Units 16:39 21:07 06:25 WBC (3.8-10.6) k/uL RBC (3.80-5.40) m/uL Hgb (11.4-16.0) gm/dL Hct (34.0-46.0) % RDW (11.5-15.5) % Plt Count (150-450) k/uL Neutrophils # (1.3-7.7) k/uL Sodium (137-145) mmol/L Glucose (74-99) mg/dL POC Glucose (mg/dL) 192 H 294 H 286 H (75-99) mg/dL 07/10/20 07/10/20 07/10/20 Range/Units 07:07 07:07 10:42 WBC 11.3 H (3.8-10.6) k/uL RBC 3.61 L (3.80-5.40) m/uL Hgb 10.4 L (11.4-16.0) gm/dL Hct 32.9 L (34.0-46.0) % RDW 15.6 H (11.5-15.5) % Plt Count 479 H (150-450) k/uL Neutrophils # 9.5 H (1.3-7.7) k/uL Sodium 136 L (137-145) mmol/L Glucose 273 H (74-99) mg/dL POC Glucose (mg/dL) 194 H (75-99) mg/dL 07/10/20 Range/Units 11:50 WBC (3.8-10.6) k/uL RBC (3.80-5.40) m/uL Hgb (11.4-16.0) gm/dL Hct (34.0-46.0) % RDW (11.5-15.5) % Plt Count (150-450) k/uL Neutrophils # (1.3-7.7) k/uL Sodium (137-145) mmol/L Glucose (74-99) mg/dL POC Glucose (mg/dL) 144 H (75-99) mg/dL Microbiology - Last 24 Hours (Table) 07/08/20 18:54 Blood Culture - Preliminary Blood No Growth after 24 hours Assessment and Plan Assessment: Acute COPD exacerbation Acute tracheobronchitis Reactive gastroenteritis Nicotine dependence 2 diabetes mellitus Gastroesophageal reflux disease Osteoarthritis History of coronary artery disease status post CABG osteoarthritis Substance abuse Plan: This is a pleasant 49 years old female who was admitted for suspected COPD exacerbation. Continue with steroids, breathing treatment and oxygen as needed. Call for pulmonary consult. Continue with ceftriaxone and Zithromax. Sent for sputum culture and C. diff Labs and medication were reviewed.. Continue same treatment. Continue with symptomatic treatment. Resume home medication. Monitor lytes and vitals. DVT and GI prophylaxis. Further recommendations depends on the clinical course of the patient DVT prophylaxis: Subcutaneous heparin GI Prophylaxis: Pepcid PT/OT: Pending Prognosis is guarded
[2020-07-10] MEDS: ATORVASTATIN 80 MG TAB PO SCH (21:00)
[2020-07-11 03:57] LABS: Glucose,Whole Blood 400 mg/dL (75-99)
[2020-07-11 03:58] LABS: Glucose,Whole Blood 415 mg/dL (75-99)
[2020-07-11] MEDS: NITROGLYCERIN SL TABS 0.4 MG TAB SUBLINGUAL ONE ×3 (04:06→04:16)
[2020-07-11] MEDS ORDERED: NITROGLYCERIN SL TABS 0.4 MG TAB SUBLINGUAL ONE (04:11)
[2020-07-11] MEDS: HYDROcodone/APAP 10-325MG 1 EACH TAB PO PRN ×2 (04:17→12:22)
[2020-07-11 05:13] LABS: Glucose,Whole Blood 412 mg/dL (75-99)
[2020-07-11] MEDS ORDERED: INSULIN ASPART (NovoLOG) 100 UNIT/ML VIAL SQ ONE (05:13)
[2020-07-11] MEDS: methylPREDNISolone SOD SUCCI 125 MG/2 ML VIAL IV SCH ×2 (05:19→12:21)
[2020-07-11 07:21] LABS: Glucose,Whole Blood 260 mg/dL (75-99)
[2020-07-11] MEDS ORDERED: metFORMIN 500 MG TAB PO SCH (07:30)
[2020-07-11 07:42] LABS: Basophils % (A) 0 %; Eosinophils # (A) 0.1 k/uL (0-0.7); Eosinophils % (A) 1 %; HCT 37.3 % (34.0-46.0); Hypochromasia Slight; Lymphocytes % (A) 9 %; MCH 29.1 pg (25.0-35.0); MCHC 32.2 g/dL (31.0-37.0); MCV 90.5 fL (80.0-100.0); Mean Platelet Volume 6.8; Monocytes # (A) 0.4 k/uL (0-1.0); Monocytes % (A) 3 %; Neutrophils # (A) 10.3 k/uL (1.3-7.7); Neutrophils % (A) 87 %; Platelet Count 546 k/uL (150-450); RBC 4.12 m/uL (3.80-5.40); RDW 15.3 % (11.5-15.5); WBC 11.9 k/uL (3.8-10.6)
[2020-07-11] MEDS: IPRATROPIUM-ALBUTEROL 3 ML NEB INHALATION SCH ×2 (07:58→11:41)
[2020-07-11] MEDS: SYMBICORT 160-4.5 MCG INHALER INHALATION SCH (07:58)
[2020-07-11] MEDS: ISOSORBIDE DINITRATE 10 MG TAB PO SCH (08:30)
[2020-07-11] MEDS: HEPARIN SODIUM,PORCINE 5,000 UNIT/ML 1 ML VIAL SQ SCH (08:30)
[2020-07-11] MEDS: amLODIPine 10 MG TAB PO SCH (08:31)
[2020-07-11] MEDS: CLOPIDOGREL 75 MG TAB PO SCH (08:31)
[2020-07-11] MEDS: AZITHROMYCIN 500 MG TAB PO SCH (08:31)
[2020-07-11] MEDS: ASPIRIN 81 MG PO SCH (08:31)
[2020-07-11] MEDS: ESCITALOPRAM 20 MG TAB PO SCH (08:31)
[2020-07-11] MEDS: METOPROLOL TARTRATE 50 MG TAB PO SCH (08:31)
[2020-07-11] MEDS: PANTOPRAZOLE 40 MG TABLET PO SCH (08:31)
[2020-07-11] MEDS: ALPRAZolam 0.5 MG TAB PO SCH (08:31)
[2020-07-11] MEDS: RANOLAZINE 500 MG TAB.ER.12H PO SCH (08:31)
[2020-07-11] MEDS: CYCLOBENZAPRINE 10 MG TAB PO SCH (08:34)
[2020-07-11] MEDS: INSULIN ASPART (NovoLOG) 100 UNIT/ML VIAL SQ SCH ×2 (08:35→12:20)
[2020-07-11 09:15] VITALS: BP 149/91; PULSE 95; RESP 18; TEMP 97.9
--- NOTE | 2020-07-11 09:32 | P.PN ---
Subjective This is a pleasant 32 years old female with past medical history of asthma and polycystic ovarian syndrome and closed head injury 10 years ago from a fall. Anxiety bipolar and depression. Presents with fever, hypertension and abdominal pain. Patient states she came family because of her left side, abdominal pain that is been going on for 2 week s, also she is been feeling dizzy mostly related to her hypotension. Associated with vomiting about once and loose bowel movement each time she eats starts about 2-3 times also patient found to have fever the abdominal pain is in the left upper quadrant area, left flank area radiating down into the pelvic area felt about 8/10 in severity but currently is pain free and rated 0/10 by patient. Patient went to [facility] where they checked her urine and they told her she has little blood in it.however UA checked here it's completely normal and patient denies any dysuria or other abnormality. Patient does has IUD so she really has no menstrual period as she states She denies smoking, alcohol or illicit drugs. She denies depression or suicidal ideation. On admission she has a fever of 101.1. Blood pressure was 92/42, she received 3 L boluses of normal saline as per documentation. Currently her blood pressure is 85/50. Labs showed leukocytosis of 12.7 K, with leukopenia at 0.3%. risks of CBC is unremarkable. D-dimer is at 0.74. Elevated lactic acid 2.4 Back to normal at 1.0. Lactate dehydrogenase elevated at 697, C-reactive protein is elevated mildly at 13.1. Urinalysis is unremarkable Chest x-ray: No active cardiopulmonary disease. Radiologist. CT of the abdomen and pelvis without contrast showing no acute abnormality of the abdomen and pelvis. EKG showed normal sinus rhythm at 86 BPM in the emergency room she received 3 boluses of normal saline of total of 3 L, and continued on normal saline at a rate of 1 30 mL/h. She received morphine wants and Toradol and Zofran. She was continued on levofloxacin orally 750 mg dailyand Flagyl orally.already given this morning 07/10/2020 Patient breathing status is improving with less cough and less wheezing however she was feeling nauseous and medication provided and on her way to the restroom patient developed dizziness and was going to pass out mostly due to vasovagal pre-syncope, happened while pulmonary team rounding. Orthostatic vitals are negative. Leukocytosis improved from 20 1K down to 11 K. Physical therapist evaluated the patient and recommended home Patient to continue on Zithromax and ceftriaxone and submental 60 mg. Tigan added. She is on aspirin and Plavix on subcu heparin. 07/11/2020 Patient is awake this morning. Her breathing is improving and she thinks with the way she presents she can go home with. However patient had another episode of presyncope when she was at the restroom before voiding. Also this morning she has mild central chest pain that is improved with nitro glycerin, and review of her recurrent dizziness and cardiac history, we will ask for plant associate evaluated the patient. He ordered serial troponin 2 and EKG. Patient is already on aspirin 81 mg as well as Plavix, we'll continue with that. Orthostasis is negative. She is saturating 96% on 2 L oxygen Staple mild leukocytosis. Patient continue on some Medrol 60 mg, Zithromax and ceftriaxone. Pulmonary team on the case as well. CONSTITUTIONAL: No fever, no malaise, no fatigue. HEENT: No recent visual problems or hearing problems. Denied any sore throat. CARDIOVASCULAR: No orthopnea, PND, no palpitations, no syncope. PULMONARY: No shortness of breath, no cough, no hemoptysis. GASTROINTESTINAL: No diarrhea, no nausea, no vomiting, no abdominal pain. Normoactive bowel sounds. NEUROLOGICAL: No headaches, no weakness, no numbness. Active Medications Generic Name Dose Route Start Last Admin Trade Name Freq PRN Reason Stop Dose Admin Hydrocodone Bitart/Acetaminophen 1 each 07/08/20 21:48 07/11/20 04:17 Hydrocodone/Apap 10-325mg 1 Each Tab PO 1 each Q6H PRN Administration Pain Albuterol/Ipratropium 3 ml 07/08/20 19:51 07/08/20 20:26 Ipratropium-Albuterol 3 Ml Neb INHALATION 3 ml RT-Q4H PRN Administration Shortness Of Breath Or Wheezing Albuterol/Ipratropium 3 ml 07/08/20 20:00 07/11/20 07:58 Ipratropium-Albuterol 3 Ml Neb INHALATION Not Given RT-QID AMANDA Alprazolam 0.5 mg 07/08/20 22:00 07/11/20 08:31 Alprazolam 0.5 Mg Tab PO 0.5 mg TID AMANDA Administration Amlodipine Besylate 10 mg 07/09/20 09:00 07/11/20 08:31 Amlodipine 10 Mg Tab PO 10 mg DAILY AMANDA Administration Aspirin 81 mg 07/09/20 09:00 07/11/20 08:31 Aspirin 81 Mg PO 81 mg DAILY AMANDA Administration Atorvastatin Calcium 80 mg 07/08/20 22:00 07/10/20 21:00 Atorvastatin 80 Mg Tab PO 80 mg HS AMANDA Administration Azithromycin 500 mg 07/09/20 09:00 07/11/20 08:31 Azithromycin 500 Mg Tab PO 500 mg DAILY AMANDA Administration Budesonide/Formoterol Fumarate 2 puff 07/09/20 20:00 07/11/20 07:58 Symbicort 160-4.5 Mcg Inhaler INHALATION Not Given RT-BID [facility] Clopidogrel Bisulfate 75 mg 07/09/20 09:00 07/11/20 08:31 Clopidogrel 75 Mg Tab PO 75 mg DAILY AMANDA Administration Cyclobenzaprine HCl 10 mg 07/08/20 22:00 07/11/20 08:34 Cyclobenzaprine 10 Mg Tab PO 10 mg TID [facility] Administration Escitalopram Oxalate 20 mg 07/09/20 09:00 07/11/20 08:31 Escitalopram 20 Mg Tab PO 20 mg DAILY AMANDA Administration Heparin Sodium (Porcine) 5,000 unit 07/09/20 21:00 07/11/20 08:30 Heparin Sodium,Porcine 5,000 Unit/Ml 1 Ml Vial SQ 5,000 unit Q12HR AMANDA Administration Ceftriaxone Sodium 1 gm/ 50 mls @ 100 mls/hr 07/09/20 12:45 07/11/20 08:32 Sodium Chloride IVPB 100 mls/hr Q24HR AMANDA Administration Insulin Aspart 0 unit 07/09/20 07:30 07/11/20 08:35 Insulin Aspart (Novolog) 100 Unit/Ml Vial SQ 8 unit ACHS AMANDA Administration Protocol Isosorbide Dinitrate 30 mg 07/09/20 21:00 07/11/20 08:30 Isosorbide Dinitrate 10 Mg Tab PO 30 mg BID AMANDA Administration Metformin HCl 1,000 mg 07/11/20 07:30 07/11/20 08:31 Metformin 500 Mg Tab PO 1,000 mg BID-W/MEALS AMANDA Administration Methylprednisolone Sodium Succinate 60 mg 07/09/20 00:00 07/11/20 05:19 Methylprednisolone Sod Succi 125 Mg/2 Ml Vial IV 60 mg Q6HR AMANDA Administration Metoprolol Tartrate 50 mg 07/08/20 22:00 07/11/20 08:31 Metoprolol Tartrate 50 Mg Tab PO 50 mg BID AMANDA Administration Pantoprazole Sodium 40 mg 07/08/20 22:00 07/11/20 08:31 Pantoprazole 40 Mg Tablet PO 40 mg BID AMANDA Administration Ranolazine 1,000 mg 07/09/20 09:00 07/11/20 08:31 Ranolazine 500 Mg Tab.Er.12h PO 1,000 mg BID AMANDA Administration Trimethobenzamide HCl 300 mg 07/10/20 09:54 Trimethobenzamide 300 Mg Cap PO QID PRN Nausea And Vomiting Objective - Vital Signs Vital signs: Vital Signs Temp 97.9 F 07/11/20 08:00 Pulse 95 07/11/20 09:00 Resp 18 07/11/20 09:00 BP 149/91 07/11/20 08:00 Pulse Ox 96 07/11/20 08:00 Intake & Output 07/10/20 07/11/20 07/11/20 18:59 06:59 18:59 Intake Total 600 400 Balance 600 400 Intake: Oral 600 400 Other: Voiding Method Toilet Toilet Toilet # Voids 2 1 - Exam -GENERAL: The patient is alert and oriented x3, not in any acute distress. obese HEENT: Pupils are round and equally reacting to light. EOMI. No scleral icterus. No conjunctival pallor. Normocephalic, atraumatic. No pharyngeal erythema. No t hyromegaly. CARDIOVASCULAR: S1 and S2 present. No murmurs, rubs, or gallops. PULMONARY: Chest is clear to auscultation, no wheezing or crackles. -ABDOMEN: Soft, mild LUQ tenderness, no rebound tenderness or guarding, nondistended, normoactive bowel sounds. No palpable organomegaly. MUSCULOSKELETAL: No joint swelling or deformity. EXTREMITIES: No cyanosis, clubbing, or pedal edema. NEUROLOGICAL: Gross neurological examination did not reveal any focal deficits. SKIN: No rashes. No petechiae - Labs CBC & Chem 7: 07/11/20 07:24 07/10/20 07:07 Labs: Abnormal Lab Results - Last 24 Hours (Table) 07/10/20 07/10/20 07/10/20 Range/Units 10:42 11:50 16:47 WBC (3.8-10.6) k/uL Plt Count (150-450) k/uL Neutrophils # (1.3-7.7) k/uL POC Glucose (mg/dL) 194 H 144 H 207 H (75-99) mg/dL 07/11/20 07/11/20 07/11/20 Range/Units 03:54 03:56 05:11 WBC (3.8-10.6) k/uL Plt Count (150-450) k/uL Neutrophils # (1.3-7.7) k/uL POC Glucose (mg/dL) 400 H 415 H 412 H (75-99) mg/dL 07/11/20 07/11/20 Range/Units 07:19 07:24 WBC 11.9 H (3.8-10.6) k/uL Plt Count 546 H (150-450) k/uL Neutrophils # 10.3 H (1.3-7.7) k/uL POC Glucose (mg/dL) 260 H (75-99) mg/dL Microbiology - Last 24 Hours (Table) 07/08/20 18:54 Blood Culture - Preliminary Blood No Growth after 48 hours Assessment and Plan Assessment: Acute COPD exacerbation Acute tracheobronchitis Presyncope 2 while in the toilet, suspicious for vasovagal effect Mild chest pain, and in view of her presyncope, we will consult cardiology Reactive gastroenteritis Nicotine dependence 2 diabetes mellitus Gastroesophageal reflux disease Osteoarthritis History of coronary artery disease status post CABG osteoarthritis Substance abuse Plan: This is a pleasant 49 years old female who was admitted for suspected COPD exacerbation. Continue with steroids, breathing treatment and oxygen as needed. Call for pulmonary consult. Continue with ceftriaxone and Zithromax. We'll do serial troponins, EKG and cardiology consult Labs and medication were reviewed.. Continue same treatment. Continue with symptomatic treatment. Resume home medication. Monitor lytes and vitals. DVT and GI prophylaxis. Further recommendations depends on the clinical course of the patient DVT prophylaxis: Subcutaneous heparin GI Prophylaxis: Pepcid PT/OT: Recommended home
[2020-07-11 11:32] LABS: Glucose,Whole Blood 175 mg/dL (75-99)
== END 2020-07-11 15:33 | disposition left against medical advice (07) | DRG 192 ==
LOC: EC 17:27 → 1SOBS 19:52 → OBSVTOIN 07-10 10:13
PROVIDERS: ADMIT Internal Medicine; ATTEND Internal Medicine
DX: J44.1 Chronic obstructive pulmonary disease with (acute) exacerbation (principal); I95.9 Hypotension, unspecified; E11.9 Type 2 diabetes mellitus without complications; F31.9 Bipolar disorder, unspecified; J44.0 Chronic obstructive pulmonary disease with (acute) lower respiratory infection; M19.90 Unspecified osteoarthritis, unspecified site; I25.10 Atherosclerotic heart disease of native coronary artery without angina pectoris; M51.36 Other intervertebral disc degeneration, lumbar region; F41.9 Anxiety disorder, unspecified; F17.210 Nicotine dependence, cigarettes, uncomplicated; J20.9 Acute bronchitis, unspecified; K52.9 Noninfective gastroenteritis and colitis, unspecified; K21.9 Gastro-esophageal reflux disease without esophagitis; F12.10 Cannabis abuse, uncomplicated; G89.4 Chronic pain syndrome; R55 Syncope and collapse; I10 Essential (primary) hypertension; R79.89 Other specified abnormal findings of blood chemistry; D72.819 Decreased white blood cell count, unspecified; R06.03 Acute respiratory distress; Z71.6 Tobacco abuse counseling; Z79.899 Other long term (current) drug therapy; Z79.82 Long term (current) use of aspirin; Z79.02 Long term (current) use of antithrombotics/antiplatelets; Z95.1 Presence of aortocoronary bypass graft; Z95.5 Presence of coronary angioplasty implant and graft; Z87.820 Personal history of traumatic brain injury; Z87.42 Personal history of other diseases of the female genital tract; Z87.01 Personal history of pneumonia (recurrent)
CPT/HCPCS: 36415; 71046; 80048; 80053; 83605; 83735; 83880; 84484; 85025; 85610; 85730; 87040; 93005; 94640; 94760; 96361; 96374; 96375; 99284

== ENCOUNTER 2020-07-14 03:34 | Observation (INO) | payer OTHER ==
--- NOTE | 2020-07-14 04:09 | ED ---
Chest Pain HPI - General Chief Complaint: Chest Pain Stated Complaint: Chest pain Time Seen by Provider: 07/14/20 03:45 Source: patient, EMS Mode of arrival: EMS Limitations: no limitations - History of Present Illness Initial Comments: Griselda is a 49-year-old female who returns to the ER today as a transfer from [facility] for reevaluation of cough, shortness of breath, recurrent near-syncope and chest pain. Over the past 2 weeks the patient has been hospitalized 3 times once in [place], once a [facility] and once here she has left AMA from each of these hospitalizations. Most recently left AMA 3 days ago. Patient reports that at the time she left [place] she was supposed to be evaluated by cardiology for this recurrent syncope or near syncope. Patient return to [facility] today reporting chest pain and shortness of breath. Her workup there was essentially negative she was treated for COPD exacerbation with steroids, azithromycin, Rocephin and breathing treatments. Due to her extensive history and recent hospitalization here possible need for evaluation by pulmonology and cardiology she was transferred here for further evaluation. Upon arrival patient continues to complain of sharp chest pain that is worse with any deep breathing or coughing. She complains of sore throat. No active cough near-syncope. - Related Data Home Medications Medication Instructions Recorded Confirmed ALPRAZolam [Xanax] 0.5 mg PO TID 07/08/20 07/08/20 Albuterol Inhaler [Ventolin Hfa 2 puff INHALATION RT-TID PRN 07/08/20 07/08/20 Inhaler] Aspirin EC [Ecotrin Low Dose] 81 mg PO DAILY 07/08/20 07/08/20 Atorvastatin [Lipitor] 80 mg PO HS 07/08/20 07/08/20 Clopidogrel [Plavix] 75 mg PO DAILY 07/08/20 07/08/20 Cyclobenzaprine [Flexeril] 10 mg PO TID 07/08/20 07/08/20 Escitalopram [Lexapro] 20 mg PO DAILY 07/08/20 07/08/20 Hydrocodone/Acetaminophen [[place] 1 tab PO Q4-6H PRN 07/08/20 07/08/20 10-325] Metoprolol Tartrate [Lopressor] 50 mg PO BID 07/08/20 07/08/20 Omeprazole 40 mg PO BID 07/08/20 07/08/20 Pregabalin [Lyrica] 75 mg PO BID 07/08/20 07/08/20 Ranolazine [Ranolazine ER] 1,000 mg PO BID 07/08/20 07/08/20 amLODIPine [Norvasc] 10 mg PO DAILY 07/08/20 07/08/20 diphenhydrAMINE HCL [Benadryl] 50 mg PO HS 07/08/20 07/08/20 Isosorbide Dinitrate 30 mg PO BID 07/09/20 07/09/20 Allergies Allergy/AdvReac Type Severity Reaction Status Date / Time No Known Allergies Allergy Verified 07/14/20 03:38 Review of Systems ROS Statement: Those systems with pertinent positive or pertinent negative responses have been documented in the HPI. ROS Other: All systems not noted in ROS Statement are negative. EKG Findings - EKG Comments: EKG Findings:: EKG was obtained due to complaint of chest pain, EKG was obtained at 3:40 AM, rate is 79 rhythm is sinus tachycardia normal axis, normal intervals, CO 120, care is 86, QTC is 447 there are no acute ST elevations or depressions no evidence of acute ischemia or infarction. Movement artifact noted. Past Medical History Past Medical History: Asthma, Coronary Artery Disease (CAD), COPD, Diabetes Mellitus, GERD/Reflux, Osteoarthritis (OA) Additional Past Medical History / Comment(s): DDD History of Any Multi-Drug Resistant Organisms: None Reported Past Surgical History: Coronary Bypass/CABG, Heart Catheterization With Stent Past Anesthesia/Blood Transfusion Reactions: No Reported Reaction Date of Last Stent Placement:: 11/2018 Past Psychological History: Anxiety, Bipolar Smoking Status: Current every day smoker Past Alcohol Use History: Occasional Past Drug Use History: Marijuana General Exam - General Exam Comments Initial Comments: Physical Exam GENERAL: Patient is well-developed and well-nourished. Patient is nontoxic and well-hydrated and is in no distress. HENT: Normocephalic, Atraumatic. EYES: PERRL, EOMI PULMONARY: Crackles at left base CARDIOVASCULAR: There is a regular rate and rhythm without any murmurs gallops or rubs. ABDOMEN: Obese Soft and nontender with normal bowel sounds. SKIN: Skin is clear with no lesions or rashes and otherwise unremarkable. : Deferred NEUROLOGIC: Patient is alert and oriented x3. Moving all extremities spontaneously MUSCULOSKELETAL: Normal extremities with adequate strength and full range of motion. No lower extremity swelling or edema. No calf tenderness. PSYCHIATRIC: Anxious Normal psychiatric evaluation. Limitations: no limitations Course Vital Signs 07/14/20 07/14/20 03:36 05:00 Temperature 97.8 F Pulse Rate 80 78 Respiratory 18 18 Rate Blood Pressure 115/81 112/70 O2 Sat by Pulse 98 98 Oximetry Chest Pain MDM - MDM The patient was seen and evaluated history is obtained from transferring physician, review of medical record and the patient 49-year-old female, obese, smoker history of COPD CAD drug abuse who has left AMA 3 times in the past 2 weeks for hospitalizations for pneumonia Patient presenting to outside hospital hypoxic short of breath, afebrile Workup at outside hospital was relatively unremarkable Patient transferred here for further management of COPD, Chest pain, near syncope Disposition Clinical Impression: Chest pain, COPD exacerbation, Pleurisy Disposition: ADMITTED IP TO THIS HOSP Condition: Stable Is patient prescribed a controlled substance at d/c from ED?: No
[2020-07-14] MEDS ORDERED: NICOTINE POLACRILEX 2 MG GUM BUCCAL PRN (04:11)
[2020-07-14] MEDS ORDERED: MORPHINE SULFATE 2 MG/ML SYRINGE IVP PRN (04:17)
[2020-07-14 05:05] LABS: INR 0.9 (<1.2); Prothrombin Time 9.3 sec (9.0-12.0)
[2020-07-14 05:36] LABS: Partial Thromboplastin Time 18.2 sec (22.0-30.0)
[2020-07-14 06:32] LABS: Glucose,Whole Blood 305 mg/dL (75-99)
[2020-07-14] MEDS: KETOROLAC 15 MG/ML 1 ML VIAL IVP SCH ×2 (06:38→11:56)
[2020-07-14] MEDS: INSULIN ASPART (NovoLOG) 100 UNIT/ML VIAL SQ SCH ×3 (07:16→17:45)
[2020-07-14] MEDS: IPRATROPIUM-ALBUTEROL 3 ML NEB INHALATION SCH ×3 (07:19→15:31)
[2020-07-14 07:45] VITALS: RESP 16
[2020-07-14 08:17] LABS: INR 0.9 (<1.2); Prothrombin Time 9.7 sec (9.0-12.0)
[2020-07-14 08:18] LABS: Basophils % (A) 0 %; Eosinophils % (A) 0 %; HCT 37.1 % (34.0-46.0); HGB 11.7 gm/dL (11.4-16.0); Hypochromasia Slight; Lymphocytes % (A) 9 %; MCHC 31.5 g/dL (31.0-37.0); Monocytes # (A) 0.1 k/uL (0-1.0); Monocytes % (A) 1 %; Neutrophils # (A) 10.7 k/uL (1.3-7.7); Neutrophils % (A) 90 %; Platelet Count 451 k/uL (150-450); RBC 4.04 m/uL (3.80-5.40); RDW 15.2 % (11.5-15.5)
[2020-07-14 08:32] LABS: ALT 23 U/L (4-34); AST 21 U/L (14-36); African American GFR (CKD) >90 (>60 ml/min/1.73 sqM); Albumin 3.3 g/dL (3.5-5.0); Alkaline Phosphatase 96 U/L (38-126); Anion Gap 6 mmol/L; Bilirubin, Delta 0.3 mg/dL (0.0-0.2); Bilirubin,Unconjugated 0.1 mg/dL (0.0-1.1); Blood Urea Nitrogen 22 mg/dL (7-17); Calcium 8.7 mg/dL (8.4-10.2); Carbon Dioxide 24 mmol/L (22-30); Chloride 105 mmol/L (98-107); Glucose 334 mg/dL (74-99); Magnesium 1.9 mg/dL (1.6-2.3); Non-African American GFR(CKD) >90 (>60 ml/min/1.73 sqM); Potassium 4.7 mmol/L (3.5-5.1); Sodium 135 mmol/L (137-145); Total Bilirubin 0.4 mg/dL (0.2-1.3); Total Protein 5.6 g/dL (6.3-8.2)
--- NOTE | 2020-07-14 08:43 | P.HPIM ---
History of Present Illness This is a pleasant 32 years old female with past medical history of asthma and polycystic ovarian syndrome and closed head injury 10 years ago from a fall. Anxiety bipolar and depression. Patient was admitted to the hospital recently 07/08-07/11 for COPD and tracheobronchitis. Then developed presyncope however she left AMA As per documents over the last 2 weeks she is been hospitalized 3 times) yet, [facility] and [facility] and she left AMA each of these hospitals. This time she presents for similar complaints to [facility] with chest pain and shortness of breath. She was treated for COPD exacerbation with steroids, and antibiotic and bronchodilators and transferred to [facility] for further evaluation by cardiology and pulmonary services Patient denies abdominal pain or change in urine or bowel habits. She smokes about half pack per day but now is down to 5 cigarettes per day when she became sick. She denies alcohol or illicit drugs. She denies depression or suicidal ideation. Currently vital signs stable. He has mild leukocytosis of 11.9 other than that her CBC is unremarkable. INR 0.9, troponin is negative at less than 0.012 In the emergency room patient was started on Toradol, nicotine patch and prednisone 40 mg daily. Review of Systems CONSTITUTIONAL: No fever, no malaise, no fatigue. HEENT: No recent visual problems or hearing problems. Denied any sore throat. CARDIOVASCULAR: No orthopnea, PND, no palpitations, no syncope. PULMONARY no chest wall tenderness, no hemoptysis. GASTROINTESTINAL: No diarrhea, no nausea, no vomiting, no abdominal pain. Normoactive bowel sounds. NEUROLOGICAL: No headaches, no weakness, no numbness. HEMATOLOGICAL: Denies any bleeding or petechiae. GENITOURINARY: Denies any burning micturition, frequency, or urgency. MUSCULOSKELETAL/RHEUMATOLOGICAL: Denies any joint pain, swelling, or any muscle pain. ENDOCRINE: Denies any polyuria or polydipsia. Past Medical History Past Medical History: Asthma, Coronary Artery Disease (CAD), COPD, Diabetes Mellitus, GERD/Reflux, Osteoarthritis (OA) Additional Past Medical History / Comment(s): DDD History of Any Multi-Drug Resistant Organisms: None Reported Past Surgical History: Coronary Bypass/CABG, Heart Catheterization With Stent Past Anesthesia/Blood Transfusion Reactions: No Reported Reaction Date of Last Stent Placement:: 11/2018 Past Psychological History: Anxiety, Bipolar Smoking Status: Current every day smoker Past Alcohol Use History: Occasional Past Drug Use History: Marijuana Medications and Allergies Home Medications Medication Instructions Recorded Confirmed Type ALPRAZolam [Xanax] 0.5 mg PO TID 07/08/20 07/14/20 History Albuterol Inhaler [Ventolin Hfa 2 puff INHALATION RT-TID PRN 07/08/20 07/14/20 History Inhaler] Aspirin EC [Ecotrin Low Dose] 81 mg PO DAILY 07/08/20 07/14/20 History Atorvastatin [Lipitor] 80 mg PO HS 07/08/20 07/14/20 History Clopidogrel [Plavix] 75 mg PO DAILY 07/08/20 07/14/20 History Cyclobenzaprine [Flexeril] 10 mg PO TID 07/08/20 07/14/20 History Escitalopram [Lexapro] 20 mg PO DAILY 07/08/20 07/14/20 History Hydrocodone/Acetaminophen [[place] 1 tab PO Q4-6H PRN 07/08/20 07/14/20 History 10-325] Metoprolol Tartrate [Lopressor] 50 mg PO BID 07/08/20 07/14/20 History Omeprazole 40 mg PO BID 07/08/20 07/14/20 History Pregabalin [Lyrica] 75 mg PO BID 07/08/20 07/14/20 History Ranolazine [Ranolazine ER] 1,000 mg PO BID 07/08/20 07/14/20 History amLODIPine [Norvasc] 10 mg PO DAILY 07/08/20 07/14/20 History diphenhydrAMINE HCL [Benadryl] 50 mg PO HS 07/08/20 07/14/20 History Isosorbide Dinitrate 30 mg PO BID 07/09/20 07/14/20 History Allergies Allergy/AdvReac Type Severity Reaction Status Date / Time No Known Allergies Allergy Verified 07/14/20 07:57 Physical Exam Vitals: Vital Signs Temp Pulse Resp BP Pulse Ox 07/14/20 05:00 78 18 112/70 98 07/14/20 03:36 97.8 F 80 18 115/81 98 Intake and Output 07/13/20 07/14/20 07/14/20 22:59 06:59 14:59 Other: Weight 90.718 kg GENERAL: The patient is alert and oriented x3, not in any acute distress. Well developed, well nourished. HEENT: Pupils are round and equally reacting to light. EOMI. No scleral icterus. No conjunctival pallor. Normocephalic, atraumatic. No pharyngeal erythema. No thyromegaly. CARDIOVASCULAR: S1 and S2 present. No murmurs, rubs, or gallops. -PULMONARY: Chest is clear to auscultation, bilateral. Scattered wheezing with prolonged expiration ABDOMEN: Soft, nontender, nondistended, normoactive bowel sounds. No palpable organomegaly. MUSCULOSKELETAL: No joint swelling or deformity. EXTREMITIES: No cyanosis, clubbing, or pedal edema. NEUROLOGICAL: Gross neurological examination did not reveal any focal deficits. SKIN: No rashes. No petechiae Results CBC & Chem 7: 07/14/20 07:44 07/14/20 07:44 Labs: Abnormal Lab Results - Last 24 Hours (Table) 07/14/20 07/14/20 Range/Units 04:37 06:30 APTT 18.2 L (22.0-30.0) sec POC Glucose (mg/dL) 305 H (75-99) mg/dL Thrombosis Risk Factor Assmnt - Choose All That Apply Any of the Below Risk Factors Present?: Yes Each Factor Represents 1 point: Abnormal pulmonary function (COPD), Age 41-60 years, Obesity (BMI >25) Thrombosis Risk Factor Assessment Total Risk Factor Score: 3 Thrombosis Risk Factor Assessment Level: Moderate Risk Assessment and Plan Assessment: Acute COPD exacerbation Presyncope 2 while in the toilet last admission, and one episode of syncope at home chest pain, pleuritic-like Nonadherence to therapy and frequent leaving AMA 3 Nicotine dependence 2 diabetes mellitus Gastroesophageal reflux disease Osteoarthritis History of coronary artery disease status post CABG osteoarthritis Substance abuse Plan: This is a pleasant 49 years old female who presents with recurrent COPD exacerbation associated with chest pain and syncope/presyncope. Continue with steroids. Continue with cardiac telemetry. Pulmonary and cardiology consult with echocardiogram. Nicotine patch Labs and medication were reviewed.. Continue same treatment. Continue with symptomatic treatment. Resume home medication. Monitor lytes and vitals. DVT and GI prophylaxis. Further recommendations depends on the clinical course of the patient DVT prophylaxis: Subcutaneous heparin GI Prophylaxis: Pepcid Prognosis is guarded
[2020-07-14] MEDS ORDERED: NICOTINE 14MG/24HR PATCH TRANSDERM SCH (09:00)
[2020-07-14] MEDS ORDERED: AZITHROMYCIN 250 MG TAB PO SCH (09:00)
[2020-07-14] MEDS ORDERED: amLODIPine 10 MG TAB PO SCH (09:00)
[2020-07-14] MEDS ORDERED: METOPROLOL TARTRATE 50 MG TAB PO SCH (09:00)
[2020-07-14] MEDS ORDERED: ISOSORBIDE DINITRATE 10 MG TAB PO SCH (09:00)
[2020-07-14] MEDS ORDERED: FAMOTIDINE 20 MG/2 ML VIAL IV SCH (09:00)
[2020-07-14] MEDS ORDERED: predniSONE 20 MG TAB PO SCH (09:00)
[2020-07-14] MEDS ORDERED: CLOPIDOGREL 75 MG TAB PO SCH (09:00)
[2020-07-14] MEDS ORDERED: ASPIRIN 81 MG PO SCH (09:00)
[2020-07-14] MEDS ORDERED: HEPARIN SODIUM,PORCINE 5,000 UNIT/ML 1 ML VIAL SQ SCH (09:00)
[2020-07-14] MEDS ORDERED: ESCITALOPRAM 20 MG TAB PO SCH (09:00)
[2020-07-14] MEDS ORDERED: PREGABALIN 75 MG CAP PO SCH (09:00)
[2020-07-14] MEDS: HYDROcodone/APAP 5-325MG 1 EACH TAB PO PRN ×2 (09:32→15:29)
[2020-07-14] MEDS: guaiFENesin-DM 100-10MG/5ML 10 ML CUP PO SCH ×2 (09:33→15:02)
--- NOTE | 2020-07-14 09:37 | P.CRDCN ---
<Rupa Centeno - Last Filed: 07/14/20 09:35> History of Present Illness Consult date: 07/14/20 History of present illness: CHIEF COMPLAINT: syncope, chest pain HISTORY OF PRESENT ILLNESS: This is a 49-year old female with a past medical history significant for coronary artery disease with previous stent and CABG, COPD, GERD, and diabetes mellitus. Patient follows with a Dr. Sierra in [facility]. We have been asked to see the patient in consultation for chest pain and syncope. Patient states she has had a "chest cold" for the last two weeks. She reports seen her primary care physician about 10 days ago in [place] and was admitted to the hospital at that time for pneumonia. She states that she left AMA. Patient was also admitted to [facility] last week for pneumonia and left AMA because she thought she was feeling better. Patient states she began having chest pain last night around 2300. She states the pain was midsternal and felt like a squeezing sensation. She reports taking 3 nitro with no relief. She reports vomiting which has been on and off for the last 2 weeks. She reports feeling mildly short of breath this morning. She is coughing but denies sputum production. Patient reports history of CABG x 2 and also reports having 7 stents with the last one being placed in 2018. She reports she feel last week when she was sitting in her chair. She states she just slumped over and hit her head. DIAGNOSTICS: EKG reveals sinus rhythm Laboratory data: WBC 12.0. Hemoglobin 11.7. platelet Count 451. Sodium 135. Potassium 4.7. BUN 22. Creatinine 0.72. Troponin negative 2 Current home cardiac medications include Norvasc 10 mg daily, metoprolol 50 mg twice a day, Imdur 30 mg twice a day, Plavix 75 mg daily, Lipitor 80 mg daily, aspirin 81 mg daily REVIEW OF SYSTEMS: At the time of my exam: CONSTITUTIONAL: Denies fever or chills. HEENT: Denies blurred vision, vision changes, or eye pain. Denies hemoptysis CARDIOVASCULAR: Denies chest pain, orthopnea, PND or palpitations RESPIRATORY: No shortness of breath. GASTROINTESTINAL: Denies abdominal pain. Denies nausea or vomiting. HEMATOLOGIC: Denies bleeding disorders. GENITOURINARY: Denies any blood in urine. SKIN: Denies pruitis. Denies rash. PHYSICAL EXAM: VITAL SIGNS: Reviewed. GENERAL: Well-developed in no acute distress. HEENT: Head is normocephalic. Pupils are equal, round. Sclerae anicteric. Mucous membranes of the mouth are moist. Neck supple. No JVD or thyromegaly LUNGS: Respirations even and unlabored. Lungs essentially clear to auscultation bilaterally. HEART: Regular rate and rhythm. S1 and S2 heard. ABDOMEN: Soft. Nondistended. Nontender. EXTREMITIES: Normal range of motion. No clubbing or cyanosis. Peripheral pulses intact. No lower extremity edema NEUROLOGIC: Awake and alert. Oriented x 3. ASSESSMENT: Chest pain, atypical Acute COPD exacerbation Recent diagnosis of pneumonia Questionable presyncope History of coronary artery disease with previous CABG and stent placement Diabetes mellitus, type II Hypertension Nicotine dependence History of substance abuse PLAN: An acute coronary event has been ruled out Obtain 2D echo to assess cardiac structure and function If no significant abnormalities on echocardiogram, patient may be discharged from a cardiac perspective and follow-up outpatient with her board layer in [place] Nurse practitioner note has been reviewed by physician. Signing provider agrees with the documented findings, assessment, and plan of care. Past Medical History Past Medical History: Asthma, Coronary Artery Disease (CAD), COPD, Diabetes Mellitus, GERD/Reflux, Osteoarthritis (OA) Additional Past Medical History / Comment(s): DDD History of Any Multi-Drug Resistant Organisms: None Reported Past Surgical History: Coronary Bypass/CABG, Heart Catheterization With Stent Past Anesthesia/Blood Transfusion Reactions: No Reported Reaction Date of Last Stent Placement:: 11/2018 Past Psychological History: Anxiety, Bipolar Smoking Status: Current every day smoker Past Alcohol Use History: Occasional Past Drug Use History: Marijuana Medications and Allergies Home Medications Medication Instructions Recorded Confirmed Type ALPRAZolam [Xanax] 0.5 mg PO TID 07/08/20 07/14/20 History Albuterol Inhaler [Ventolin Hfa 2 puff INHALATION RT-TID PRN 07/08/20 07/14/20 History Inhaler] Aspirin EC [Ecotrin Low Dose] 81 mg PO DAILY 07/08/20 07/14/20 History Atorvastatin [Lipitor] 80 mg PO HS 07/08/20 07/14/20 History Clopidogrel [Plavix] 75 mg PO DAILY 07/08/20 07/14/20 History Cyclobenzaprine [Flexeril] 10 mg PO TID 07/08/20 07/14/20 History Escitalopram [Lexapro] 20 mg PO DAILY 07/08/20 07/14/20 History Hydrocodone/Acetaminophen [[place] 1 tab PO Q4-6H PRN 07/08/20 07/14/20 History 10-325] Metoprolol Tartrate [Lopressor] 50 mg PO BID 07/08/20 07/14/20 History Omeprazole 40 mg PO BID 07/08/20 07/14/20 History Pregabalin [Lyrica] 75 mg PO BID 07/08/20 07/14/20 History Ranolazine [Ranolazine ER] 1,000 mg PO BID 07/08/20 07/14/20 History amLODIPine [Norvasc] 10 mg PO DAILY 07/08/20 07/14/20 History diphenhydrAMINE HCL [Benadryl] 50 mg PO HS 07/08/20 07/14/20 History Isosorbide Dinitrate 30 mg PO BID 07/09/20 07/14/20 History Allergies Allergy/AdvReac Type Severity Reaction Status Date / Time No Known Allergies Allergy Verified 07/14/20 07:57 Physical Exam Vitals: Vital Signs Temp Pulse Pulse Resp BP BP Pulse Ox 07/14/20 07:41 97.4 F L 74 16 117/80 95 07/14/20 07:33 76 07/14/20 07:20 76 07/14/20 05:00 78 18 112/70 98 07/14/20 03:36 97.8 F 80 18 115/81 98 Intake and Output 07/13/20 07/14/20 07/14/20 22:59 06:59 14:59 Other: Weight 90.718 kg Results 07/14/20 07:44 07/14/20 07:44 Cardiac Enzymes 07/14/20 Range/Units 04:37 Troponin I <0.012 (0.000-0.034) ng/mL Coagulation 07/14/20 Range/Units 04:37 PT 9.3 (9.0-12.0) sec APTT 18.2 L (22.0-30.0) sec Current Medications Generic Name Dose Route Start Last Admin Trade Name Freq PRN Reason Stop Dose Admin Albuterol/Ipratropium 3 ml 07/14/20 08:00 07/14/20 07:19 Ipratropium-Albuterol 3 Ml Neb INHALATION 3 ml RT-QID AMANDA Administration Famotidine 20 mg 07/14/20 09:00 Famotidine 20 Mg/2 Ml Vial IV Q12HR AMANDA Heparin Sodium (Porcine) 5,000 unit 07/14/20 09:00 Heparin Sodium,Porcine 5,000 Unit/Ml 1 Ml Vial SQ Q12HR AMANDA Insulin Aspart 0 unit 07/14/20 07:30 07/14/20 07:16 Insulin Aspart (Novolog) 100 Unit/Ml Vial SQ 8 unit ACHS AMANDA Administration Protocol Ketorolac Tromethamine 15 mg 07/14/20 06:00 07/14/20 06:38 Ketorolac 15 Mg/Ml 1 Ml Vial IVP 07/17/20 04:17 15 mg Q6HR AMANDA Administration Nicotine 1 patch 07/14/20 09:00 Nicotine 14mg/24hr Patch TRANSDERM DAILY AMANDA Nicotine Polacrilex 4 mg 07/14/20 04:11 Nicotine Polacrilex 2 Mg Gum BUCCAL Q2HR PRN Nicotine Cravings Prednisone 40 mg 07/14/20 09:00 Prednisone 20 Mg Tab PO DAILY AMANDA Intake and Output 07/13/20 07/14/20 07/14/20 22:59 06:59 14:59 Other: Weight 90.718 kg <Genaro Guerra - Last Filed: 07/14/20 12:55> History of Present Illness History of present illness: Patient's main presentation appears related to an infection and COPD exacerbation with recent fevers, chills and cough. Echocardiogram reviewed with normal ejection fraction 55-60% without wall motion abnormality. Normal diastolic function and do not suspect heart failure. Doubt chest pain is cardiac in nature with normal troponins and normal echocardiogram. Would recommend outpatient follow-upwith primary board layer upon discharge for possible stress testing. Continue with management of her infection, COPD. Tobacco cessation encouraged. Please call with any questions. Genaro Guerra D.O. Physical Exam Vitals: Vital Signs Temp Pulse Pulse Resp BP BP Pulse Ox 07/14/20 11:21 76 07/14/20 11:08 76 07/14/20 07:41 97.4 F L 74 16 117/80 95 07/14/20 07:33 76 07/14/20 07:20 76 07/14/20 05:00 78 18 112/70 98 07/14/20 03:36 97.8 F 80 18 115/81 98 Intake and Output 07/13/20 07/14/20 07/14/20 22:59 06:59 14:59 Other: Weight 90.718 kg Results 07/14/20 07:44 07/14/20 07:44 Cardiac Enzymes 07/14/20 07/14/20 07/14/20 Range/Units 04:37 07:44 09:42 AST 21 (14-36) U/L Troponin I <0.012 <0.012 (0.000-0.034) ng/mL 07/14/20 Range/Units 11:13 AST (14-36) U/L Troponin I <0.012 (0.000-0.034) ng/mL Coagulation 07/14/20 07/14/20 Range/Units 04:37 07:44 PT 9.3 9.7 (9.0-12.0) sec APTT 18.2 L (22.0-30.0) sec CBC 07/14/20 Range/Units 07:44 WBC 12.0 H (3.8-10.6) k/uL RBC 4.04 (3.80-5.40) m/uL Hgb 11.7 (11.4-16.0) gm/dL Hct 37.1 (34.0-46.0) % Plt Count 451 H (150-450) k/uL Comprehensive Metabolic Panel 07/14/20 Range/Units 07:44 Sodium 135 L (137-145) mmol/L Potassium 4.7 (3.5-5.1) mmol/L Chloride 105 (98-107) mmol/L Carbon Dioxide 24 (22-30) mmol/L BUN 22 H (7-17) mg/dL Creatinine 0.72 (0.52-1.04) mg/dL Glucose 334 H (74-99) mg/dL Calcium 8.7 (8.4-10.2) mg/dL Unconjugated Bilirubin 0.1 (0.0-1.1) mg/dL AST 21 (14-36) U/L ALT 23 (4-34) U/L Alkaline Phosphatase 96 (38-126) U/L Total Protein 5.6 L (6.3-8.2) g/dL Albumin 3.3 L (3.5-5.0) g/dL Current Medications Generic Name Dose Route Start Last Admin Trade Name Freq PRN Reason Stop Dose Admin Hydrocodone Bitart/Acetaminophen 1 each 07/14/20 08:41 07/14/20 09:32 Hydrocodone/Apap 5-325mg 1 Each Tab PO 1 each Q6HR PRN Administration Pain Albuterol/Ipratropium 3 ml 07/14/20 08:00 07/14/20 11:08 Ipratropium-Albuterol 3 Ml Neb INHALATION 3 ml RT-QID AMANDA Administration Amlodipine Besylate 10 mg 07/14/20 09:00 07/14/20 09:32 Amlodipine 10 Mg Tab PO 10 mg DAILY AMANDA Administration Aspirin 81 mg 07/14/20 09:00 07/14/20 09:32 Aspirin 81 Mg PO 81 mg DAILY AMANDA Administration Atorvastatin Calcium 80 mg 07/14/20 21:00 Atorvastatin 80 Mg Tab PO HS AMANDA Azithromycin 250 mg 07/14/20 09:00 07/14/20 09:33 Azithromycin 250 Mg Tab PO 250 mg DAILY AMANDA Administration Clopidogrel Bisulfate 75 mg 07/14/20 09:00 07/14/20 09:32 Clopidogrel 75 Mg Tab PO 75 mg DAILY AMANDA Administration Escitalopram Oxalate 20 mg 07/14/20 09:00 07/14/20 09:33 Escitalopram 20 Mg Tab PO 20 mg DAILY AMANDA Administration Famotidine 20 mg 07/14/20 21:00 Famotidine 20 Mg Tab PO Q12HR AMANDA Guaifenesin/Dextromethorphan 10 ml 07/14/20 09:00 07/14/20 09:33 Guaifenesin-Dm 100-10mg/5ml 10 Ml Cup PO 10 ml Q6H AMANDA Administration Heparin Sodium (Porcine) 5,000 unit 07/14/20 09:00 07/14/20 09:31 Heparin Sodium,Porcine 5,000 Unit/Ml 1 Ml Vial SQ 5,000 unit Q12HR AMANDA Administration Insulin Aspart 0 unit 07/14/20 07:30 07/14/20 11:57 Insulin Aspart (Novolog) 100 Unit/Ml Vial SQ 8 unit ACHS AMANDA Administration Protocol Isosorbide Dinitrate 30 mg 07/14/20 09:00 07/14/20 09:33 Isosorbide Dinitrate 10 Mg Tab PO 30 mg BID AMANDA Administration Ketorolac Tromethamine 15 mg 07/14/20 06:00 07/14/20 11:56 Ketorolac 15 Mg/Ml 1 Ml Vial IVP 07/17/20 04:17 15 mg Q6HR AMANDA Administration Metoprolol Tartrate 50 mg 07/14/20 09:00 07/14/20 09:32 Metoprolol Tartrate 50 Mg Tab PO 50 mg BID AMANDA Administration Nicotine 1 patch 07/14/20 09:00 07/14/20 09:31 Nicotine 14mg/24hr Patch TRANSDERM 1 patch DAILY AMANDA Administration Nicotine Polacrilex 4 mg 07/14/20 04:11 Nicotine Polacrilex 2 Mg Gum BUCCAL Q2HR PRN Nicotine Cravings Prednisone 40 mg 07/14/20 09:00 07/14/20 09:32 Prednisone 20 Mg Tab PO 40 mg DAILY AMANDA Administration Pregabalin 75 mg 07/14/20 09:00 07/14/20 09:32 Pregabalin 75 Mg Cap PO 75 mg BID AMANDA Administration Intake and Output 07/13/20 07/14/20 07/14/20 22:59 06:59 14:59 Other: Weight 90.718 kg 07/14/20 07:44 07/14/20 07:44
--- NOTE | 2020-07-14 10:52 | ECHOF ---
Referral Reason:LV function MEASUREMENTS -------- HEIGHT: 165.1 cm WEIGHT: 90.7 kg BP: 117/80 IVSd: 1.7 cm (0.6 - 1.1) LVIDd: 3.4 cm (3.9 - 5.3) LVPWd: 1.7 cm (0.6 - 1.1) IVSs: 1.8 cm LVIDs: 2.4 cm LVPWs: 2.0 cm LAESV Index (A-L): 22.50 ml/m Ao Diam: 3.0 cm (2.0 - 3.7) AV Cusp: 1.6 cm (1.5 - 2.6) MV EXCURSION: 15.315 mm (> 18.000) MV EF SLOPE: 64 mm/s (70 - 150) EPSS: 0.7 cm MV E Oziel: 1.12 m/s MV DecT: 223 ms MV A Oziel: 0.86 m/s MV E/A Ratio: 1.31 RAP: 5.00 mmHg RVSP: 24.59 mmHg FINDINGS -------- This was a technically difficult study with suboptimal apical views. The left ventricular size is normal. There is borderline concentric left ventricular hypertrophy. Overall left ventricular systolic function is normal with, an EF between 55 - 60 %. Septal wall mo tion is delayed and consistent with prior cardiac surgery. The RV was not well visualized. Normal LA size by volume 22+/-6 ml/m2. The right atrium was not well visualized. 5.0mg of Lumason was utilized for enhancement of images Interatrial and interventricular septum intact. The aortic valve was not well visualized. There is no evidence of aortic regurgitation. There is no evidence of aortic stenosis. There is trace mitral regurgitation. Mild tricuspid regurgitation present. There is no evidence of pulmonary hypertension. The right v entricular systolic pressure, as measured by Doppler, is 24.59mmHg. There is no pulmonic regurgitation present. The aortic root size is normal. IVC Not well visulized. There is no pericardial effusion. CONCLUSIONS -------- 1. The left ventricular size is normal. 2. Overall left ventricular systolic function is normal with, an EF between 55 - 60 %. 3. Septal wall motion is delayed and consistent with prior cardiac surgery. 4. Mild tricuspid regurgitation present. COP[employer] LATHE TENDER: Zoë Ramirez RDCS
[2020-07-14 11:32] LABS: Glucose,Whole Blood 337 mg/dL (75-99)
--- NOTE | 2020-07-14 13:50 | CT ---
EXAMINATION TYPE: CT brain wo con DATE OF EXAM: 07/14/2020 HISTORY: Fall injury with headache CT DLP: 1121 mGycm. Automated Exposure Control for Dose Reduction was Utilized. TECHNIQUE: CT scan of the head is performed without contrast. COMPARISON: None. FINDINGS: Exam is suboptimal as there is some motion artifact degradation. There is no obvious acut e intracranial hemorrhage or midline shift identified. Ventricles and sulci are within normal limits in size for age. Medley-white matter differentiation maintained. Air-fluid level and visualized right m axillary sinus otherwise paranasal sinuses are clear. Globes are intact. IMPRESSION: Suboptimal study, No acute intracranial hemorrhage or midline shift. Acute right maxilla ry sinus disease suspected. Correlate clinically.
[2020-07-14] MEDS ORDERED: ALPRAZolam 0.5 MG TAB PO PRN (13:56)
[2020-07-14 15:04] VITALS: BP 110/70; TEMP 97.8
[2020-07-14 15:44] VITALS: PULSE 70
[2020-07-14 17:19] LABS: Glucose,Whole Blood 421 mg/dL (75-99)
[2020-07-14] MEDS ORDERED: INSULIN ASPART (NovoLOG) 100 UNIT/ML VIAL SQ ONE (17:45)
[2020-07-14] MEDS ORDERED: FAMOTIDINE 20 MG TAB PO SCH (21:00)
[2020-07-14] MEDS ORDERED: ATORVASTATIN 80 MG TAB PO SCH (21:00)
== END 2020-07-14 17:55 | disposition left against medical advice (07) ==
LOC: EC 03:34 → 3NCARDOBS 04:14
PROVIDERS: ADMIT Hospitalist; ATTEND Hospitalist
DX: R07.89 Other chest pain (principal); R55 Syncope and collapse; E11.9 Type 2 diabetes mellitus without complications; F17.210 Nicotine dependence, cigarettes, uncomplicated; F31.9 Bipolar disorder, unspecified; R11.10 Vomiting, unspecified; F41.9 Anxiety disorder, unspecified; I10 Essential (primary) hypertension; I25.10 Atherosclerotic heart disease of native coronary artery without angina pectoris; J44.0 Chronic obstructive pulmonary disease with (acute) lower respiratory infection; J44.1 Chronic obstructive pulmonary disease with (acute) exacerbation; K21.9 Gastro-esophageal reflux disease without esophagitis; M19.90 Unspecified osteoarthritis, unspecified site; R09.1 Pleurisy; Z79.02 Long term (current) use of antithrombotics/antiplatelets; Z79.82 Long term (current) use of aspirin; Z79.899 Other long term (current) drug therapy; Z95.1 Presence of aortocoronary bypass graft; Z95.5 Presence of coronary angioplasty implant and graft
CPT/HCPCS: 96372; 96374; 96375; 96376; 99285; 94640 ×2; 93005; 93306; 80048; 80076; 83735; 84484; 85025; 85610; 85730; 70450; G0378; S4990; J1644; J1885; J7512

== ENCOUNTER 2020-12-20 07:07 | Observation (INO) | payer OTHER ==
[2020-12-20] MEDS ORDERED: NITROGLYCERIN SL TABS 0.4 MG TAB SUBLINGUAL STA (07:35)
[2020-12-20] MEDS ORDERED: NITROGLYCERIN OINT 1 INCH/GM PACKET TOPICAL STA (07:35)
[2020-12-20] MEDS ORDERED: NITROGLYCERIN SL TABS 0.4 MG TAB SUBLINGUAL PRN (07:41)
[2020-12-20] MEDS ORDERED: ASPIRIN 81 MG PO STA (07:41)
--- NOTE | 2020-12-20 07:41 | ED ---
General Adult HPI - General Chief complaint: Chest Pain Stated complaint: Chest pain Time Seen by Provider: 12/20/20 07:11 Source: patient, RN notes reviewed, old records reviewed (Chart reviewed from [facility]) Mode of arrival: EMS Limitations: no limitations - History of Present Illness Initial comments: Patient is a pleasant 50-year-old female presenting to the emergency Department with complaints of chest discomfort. Patient was transferred from [facility]. Patient transferred for cardiac evaluation. Patient states ch est discomfort started early this morning. Discomfort improved however is starting to come back. Discomfort feels like pressure. Patient does have history of similar symptoms previously and does take nitro glycerin for this. Patient does have some mild associated dyspnea and nausea. No diaphoresis. There is some radiation towards left arm. No leg pain or leg swelling. - Related Data Home Medications Medication Instructions Recorded Confirmed ALPRAZolam [Xanax] 0.5 mg PO TID 07/08/20 12/20/20 Aspirin EC [Ecotrin Low Dose] 81 mg PO DAILY 07/08/20 12/20/20 Atorvastatin [Lipitor] 80 mg PO HS 07/08/20 12/20/20 Clopidogrel [Plavix] 75 mg PO DAILY 07/08/20 12/20/20 Cyclobenzaprine [Flexeril] 10 mg PO TID 07/08/20 12/20/20 Escitalopram [Lexapro] 20 mg PO DAILY 07/08/20 12/20/20 Hydrocodone/Acetaminophen [[place] 1 tab PO Q4-6H PRN 07/08/20 12/20/20 10-325] Metoprolol Tartrate [Lopressor] 50 mg PO BID 07/08/20 12/20/20 Omeprazole 40 mg PO BID 07/08/20 12/20/20 Pregabalin [Lyrica] 75 mg PO BID 07/08/20 12/20/20 Ranolazine [Ranolazine ER] 1,000 mg PO BID 07/08/20 12/20/20 amLODIPine [Norvasc] 10 mg PO DAILY 07/08/20 12/20/20 diphenhydrAMINE HCL [Benadryl] 50 mg PO HS 07/08/20 12/20/20 Isosorbide Dinitrate 30 mg PO BID 07/09/20 12/20/20 Albuterol Nebulized [Ventolin 2.5 mg INHALATION RT-Q6H PRN 12/20/20 12/20/20 Nebulized] Albuterol Sulfate [Proair Hfa] 1 - 2 puff INHALATION RT-Q6H PRN 12/20/20 12/20/20 Aspirin EC [Ecotrin Low Dose] 324 mg PO ONCE PRN 12/20/20 12/20/20 Budesonide/Formoterol Fumarate 2 puff INHALATION RT-BID 12/20/20 12/20/20 [Symbicort 160-4.5 Mcg Inhaler] levETIRAcetam [Keppra] 500 mg PO Q12HR 12/20/20 12/20/20 metFORMIN HCL 1,000 mg PO BID 12/20/20 12/20/20 rOPINIRole HCL [Requip] 0.25 mg PO HS 12/20/20 12/20/20 Allergies Allergy/AdvReac Type Severity Reaction Status Date / Time No Known Allergies Allergy Verified 12/20/20 08:28 Review of Systems ROS Statement: Those systems with pertinent positive or pertinent negative responses have been documented in the HPI. ROS Other: All systems not noted in ROS Statement are negative. Constitutional: Denies: fever Eyes: Denies: eye pain ENT: Denies: ear pain Respiratory: Reports: as per HPI. Denies: cough Cardiovascular: Reports: as per HPI, chest pain Endocrine: Denies: fatigue Gastrointestinal: Denies: abdominal pain Genitourinary: Denies: dysuria Musculoskeletal: Denies: back pain Skin: Denies: rash Neurological: Denies: weakness Past Medical History Past Medical History: Asthma, Coronary Artery Disease (CAD), COPD, Diabetes Mellitus, GERD/Reflux, Myocardial Infarction ([place]), Osteoarthritis (OA) Additional Past Medical History / Comment(s): DDD History of Any Multi-Drug Resistant Organisms: None Reported Past Surgical History: Coronary Bypass/CABG, Heart Catheterization With Stent Past Anesthesia/Blood Transfusion Reactions: No Reported Reaction Date of Last Stent Placement:: 11/2018 Past Psychological History: Anxiety, Bipolar Smoking Status: Current every day smoker Past Alcohol Use History: Occasional Past Drug Use History: Marijuana General Exam Limitations: no limitations General appearance: alert, in no apparent distress Head exam: Present: normocephalic Eye exam: Present: normal appearance Neck exam: Present: normal inspection Respiratory exam: Present: normal lung sounds bilaterally. Absent: chest wall tenderness Cardiovascular Exam: Present: regular rate, normal rhythm Expanded Peripheral pulses: 2+: Radial (R), Radial (L), Posterior Tibialis (R), Posterior Tibialis (L) GI/Abdominal exam: Present: soft. Absent: tenderness Extremities exam: Present: normal inspection. Absent: pedal edema, calf tenderness Neurological exam: Present: alert Psychiatric exam: Present: normal affect, normal mood Skin exam: Present: normal color Course Vital Signs 12/20/20 12/20/20 07:27 08:00 Temperature 97.8 F Pulse Rate 81 88 Respiratory 16 22 Rate Blood Pressure 152/81 118/73 O2 Sat by Pulse 94 L 94 L Oximetry EKG Findings - EKG Comments: EKG Findings:: Normal sinus rhythm with a rate of 87. IN 132. QRS 82. QT 380. QTC 457. Normal axis. Normal QRS. No acute ST change. Medical Decision Making - Medical Decision Making Chart reviewed. Patient made aware of plan. Case was discussed in detail with Dr. German, who will admit covering for hospital call. D-dimer will be added. He is aware. Disposition Clinical Impression: Chest pain Disposition: ADMITTED IP TO THIS HOSP Is patient prescribed a controlled substance at d/c from ED?: No Decision Time: 07:41
[2020-12-20] MEDS ORDERED: ONDANSETRON 4 MG/2 ML VIAL IVP STA (08:37)
[2020-12-20] MEDS ORDERED: ACETAMINOPHEN TAB 325 MG TAB PO PRN (08:52)
[2020-12-20] MEDS ORDERED: ONDANSETRON 4 MG/2 ML VIAL IVP PRN (08:52)
[2020-12-20] MEDS ORDERED: HEPARIN SODIUM,PORCINE 5,000 UNIT/ML 1 ML VIAL IV PRN (08:53)
[2020-12-20] MEDS ORDERED: HEPARIN SODIUM,PORCINE 5,000 UNIT/ML 1 ML VIAL IV ONE (08:53)
[2020-12-20] MEDS ORDERED: ALBUTEROL NEBULIZED 2.5 MG/3 ML INHALATION PRN (08:55)
[2020-12-20] MEDS ORDERED: CYCLOBENZAPRINE 10 MG TAB PO PRN (08:55)
[2020-12-20] MEDS ORDERED: CLOPIDOGREL 75 MG TAB PO SCH (09:00)
--- NOTE | 2020-12-20 09:04 | P.HPIM ---
History of Present Illness H&P Date: 12/20/20 Chief Complaint: Chest pain This is a 50-year-old female with a very complex past medical history noted below significant for coronary artery disease with history of bypass surgery and multiple stent placement [place] [facility] [place] I presented to the emergency room at [facility] with chest pain. Patient said that the pain started one hour prior to her presentation and woke her up from her sleep. Pain mostly in the left side of her chest. Pain was radiating to her left upper extremity. Patient said that she took 3 baby aspirin and 3 nitroglycerin with minimal relief. Patient was evaluated in outside emergency room in 12-lead EKG showed no acute ischemic changes. Initial troponin was negative. Patient was transferred here for cardiology evaluation. Soon after arrival to the ER, patient had an episode of vomiting. She was seen by me in the ED. She is still complaining of chest pain that she rates it as 6 out of 10 in severity. She denies significant shortness of breath. She reports compliance with her medications. She is a current every day smoker and usually smokes 1 pack per day. She also smokes marijuana. She denies heavy alcohol use. Patient will be admitted to the hospital for further evaluation. Review of Systems Review of system: 14 points review of systems were obtained and were negative except to what were mentioned in the HPI. Past Medical History Past Medical History: Asthma, Coronary Artery Disease (CAD), COPD, Diabetes Mellitus, GERD/Reflux, Myocardial Infarction ([place]), Osteoarthritis (OA) Additional Past Medical History / Comment(s): DDD History of Any Multi-Drug Resistant Organisms: None Reported Past Surgical History: Coronary Bypass/CABG, Heart Catheterization With Stent Past Anesthesia/Blood Transfusion Reactions: No Reported Reaction Date of Last Stent Placement:: 11/2018 Past Psychological History: Anxiety, Bipolar Smoking Status: Current every day smoker Past Alcohol Use History: Occasional Past Drug Use History: Marijuana Medications and Allergies Home Medications Medication Instructions Recorded Confirmed Type ALPRAZolam [Xanax] 0.5 mg PO TID 07/08/20 12/20/20 History Aspirin EC [Ecotrin Low Dose] 81 mg PO DAILY 07/08/20 12/20/20 History Atorvastatin [Lipitor] 80 mg PO HS 07/08/20 12/20/20 History Clopidogrel [Plavix] 75 mg PO DAILY 07/08/20 12/20/20 History Cyclobenzaprine [Flexeril] 10 mg PO TID 07/08/20 12/20/20 History Escitalopram [Lexapro] 20 mg PO DAILY 07/08/20 12/20/20 History Hydrocodone/Acetaminophen [[place] 1 tab PO Q4-6H PRN 07/08/20 12/20/20 History 10-325] Metoprolol Tartrate [Lopressor] 50 mg PO BID 07/08/20 12/20/20 History Omeprazole 40 mg PO BID 07/08/20 12/20/20 History Pregabalin [Lyrica] 75 mg PO BID 07/08/20 12/20/20 History Ranolazine [Ranolazine ER] 1,000 mg PO BID 07/08/20 12/20/20 History amLODIPine [Norvasc] 10 mg PO DAILY 07/08/20 12/20/20 History diphenhydrAMINE HCL [Benadryl] 50 mg PO HS 07/08/20 12/20/20 History Isosorbide Dinitrate 30 mg PO BID 07/09/20 12/20/20 History Albuterol Nebulized [Ventolin 2.5 mg INHALATION RT-Q6H PRN 12/20/20 12/20/20 History Nebulized] Albuterol Sulfate [Proair Hfa] 1 - 2 puff INHALATION RT-Q6H PRN 12/20/20 12/20/20 History Aspirin EC [Ecotrin Low Dose] 324 mg PO ONCE PRN 12/20/20 12/20/20 History Budesonide/Formoterol Fumarate 2 puff INHALATION RT-BID 12/20/20 12/20/20 History [Symbicort 160-4.5 Mcg Inhaler] levETIRAcetam [Keppra] 500 mg PO Q12HR 12/20/20 12/20/20 History metFORMIN HCL 1,000 mg PO BID 12/20/20 12/20/20 History rOPINIRole HCL [Requip] 0.25 mg PO HS 12/20/20 12/20/20 History Allergies Allergy/AdvReac Type Severity Reaction Status Date / Time No Known Allergies Allergy Verified 12/20/20 08:28 Physical Exam Vitals: Vital Signs Temp Pulse Resp BP Pulse Ox 12/20/20 08:00 88 22 118/73 94 L 12/20/20 07:27 97.8 F 81 16 152/81 94 L Intake and Output 12/19/20 12/20/20 12/20/20 22:59 06:59 14:59 Other: Weight 89.358 kg General: The patient is awake and alert, in no distress Eye: there is normal conjunctiva bilaterally. Neck: The neck is supple, there is no JVD. Cardiovascular: Normal S1-S2, no S3-S4, no murmurs. Respiratory: Lungs with end expiratory wheezing Gastrointestinal: Abdomen is soft, nontender Musculoskeletal: There is no pedal edema. Neurological:. Speech is normal. Skin: Skin is warm and dry Assessment and Plan Assessment: This is a 50-year-old female with very complex past medical history noted below presented to the emergency room with chest pain. Patient was evaluated in the ER and admitted to the hospital for further management of her medical problems noted below. 1. Unstable angina: Twelve-lead EKG showed no acute ischemic changes. Serial troponin negative 2 sets. I would start the patient on IV heparin drip and consult cardiology for further evaluation. Echocardiogram in June of last y ear showed preserved ejection fraction of 55-60%. D-dimer was normal. Continue home dose of Imdur and Ranexa 2. Coronary artery disease with history of CABG and multiple stent placement most recently last [place] [facility] [place] per patient report. On dual antiplatelet therapy with aspirin and Plavix 3. Essential hypertension: Blood pressure within acceptable range. Hold home dose of amlodipine. 4. Underlying COPD, with mild exacerbation. Continue duo nebs every 6 hours. 5. Type 2 diabetes: Hold oral medication and continue sliding scale insulin 6. Tobacco abuse, counseled extensively to quit 7. Chronic medical problems: Underlying depression, anxiety, chronic pain syndrome, reported brain aneurysm Today, I reviewed her medication list and lab work results. CBC and electrolytes done at [facility] within normal range. We will continue supportive care. Zofran as needed for nausea. IV morphine 2 mg every 4 hours as needed for pain. Continue telemetry monitoring. Awaiting cardiology evaluation.
[2020-12-20] MEDS: MORPHINE SULFATE 2 MG/ML SYRINGE IVP PRN ×3 (09:35→20:19)
[2020-12-20] MEDS: PANTOPRAZOLE 40 MG/10 ML VIAL IVP SCH (09:36)
[2020-12-20] MEDS: CLOPIDOGREL 75 MG TAB PO SCH (09:36)
[2020-12-20] MEDS: ALPRAZolam 0.5 MG TAB PO SCH ×3 (09:36→21:29)
[2020-12-20] MEDS: PREGABALIN 75 MG CAP PO SCH ×2 (09:37→21:30)
[2020-12-20] MEDS: HEPARIN SOD,PORK IN 0.45% NACL 25,000 UNIT in 0.45% NACL 1 250ML.BAG IV SCH (09:49)
[2020-12-20 10:08] LABS: INR 0.9 (<1.2); Prothrombin Time 9.5 sec (9.0-12.0)
[2020-12-20 10:20] LABS: Partial Thromboplastin Time 18.6 sec (22.0-30.0)
[2020-12-20] MEDS: METOPROLOL TARTRATE 50 MG TAB PO SCH ×2 (10:28→21:28)
[2020-12-20] MEDS: levETIRAcetam 500 MG TAB PO SCH ×2 (10:28→21:30)
[2020-12-20] MEDS: RANOLAZINE 500 MG TAB.ER.12H PO SCH ×2 (10:28→21:30)
[2020-12-20] MEDS: ESCITALOPRAM 20 MG TAB PO SCH (10:28)
[2020-12-20] MEDS: ISOSORBIDE DINITRATE 10 MG TAB PO SCH ×2 (10:28→22:19)
[2020-12-20] MEDS: IPRATROPIUM-ALBUTEROL 3 ML NEB INHALATION SCH ×3 (11:21→19:39)
--- NOTE | 2020-12-20 11:30 | CT ---
EXAMINATION TYPE: CT brain wo con DATE OF EXAM: 12/20/2020 COMPARISON: 07/14/2020 HISTORY: Chest pains, headache, vomiting CT DLP: 1078.4 mGycm Automated exposure control for dose reduction was used. Multiple axial images are obtained from skull base to vertex without IV contrast. FINDINGS: The ventricles, basal cisterns and sulci over the convexities are within normal limits. There is no mass, mass effect or shift of midline structures. No abnormal brain parenchyma and there is no acute intra or extra-axial hemorrhage. Grossly the posterior fossa including the brainstem, fourth ventricle and cerebellar pontine angles a ppear normal. The intraorbital contents appear normal and symmetric. Visualized paranasal sinuses are well aerated. The calvarium is intact. IMPRESSION: No significant abnormality seen.
[2020-12-20] MEDS: INSULIN ASPART (NovoLOG) 100 UNIT/ML VIAL SQ SCH ×3 (12:26→21:31)
[2020-12-20] MEDS: NITROGLYCERIN OINT 1 INCH/GM PACKET TOPICAL SCH ×2 (12:26→18:45)
[2020-12-20 14:55] LABS: Glucose,Whole Blood 100 mg/dL (75-99)
[2020-12-20] MEDS: SYMBICORT 160-4.5 MCG INHALER INHALATION SCH (19:39)
[2020-12-20] MEDS ORDERED: ATORVASTATIN 80 MG TAB PO SCH (21:00)
[2020-12-21] LABS: Glucose,Whole Blood 118 mg/dL (75-99)
[2020-12-21] MEDS: NITROGLYCERIN OINT 1 INCH/GM PACKET TOPICAL SCH ×3 (00:04→12:20)
[2020-12-21] MEDS: MORPHINE SULFATE 2 MG/ML SYRINGE IVP PRN ×3 (00:08→07:52)
[2020-12-21] MEDS: IPRATROPIUM-ALBUTEROL 3 ML NEB INHALATION SCH ×2 (07:23→11:05)
[2020-12-21] MEDS: SYMBICORT 160-4.5 MCG INHALER INHALATION SCH (07:23)
[2020-12-21] MEDS: levETIRAcetam 500 MG TAB PO SCH (07:53)
[2020-12-21] MEDS: PREGABALIN 75 MG CAP PO SCH (07:53)
[2020-12-21] MEDS: ALPRAZolam 0.5 MG TAB PO SCH (07:53)
[2020-12-21] MEDS: PANTOPRAZOLE 40 MG/10 ML VIAL IVP SCH (07:53)
[2020-12-21] MEDS: CLOPIDOGREL 75 MG TAB PO SCH (07:53)
[2020-12-21] MEDS: ISOSORBIDE DINITRATE 10 MG TAB PO SCH (07:54)
[2020-12-21] MEDS: RANOLAZINE 500 MG TAB.ER.12H PO SCH (07:54)
[2020-12-21] MEDS: HEPARIN SOD,PORK IN 0.45% NACL 25,000 UNIT in 0.45% NACL 1 250ML.BAG IV SCH (07:56)
[2020-12-21 08:04] VITALS: BP 116/78; PULSE 74; RESP 17; TEMP 98
[2020-12-21] MEDS: INSULIN ASPART (NovoLOG) 100 UNIT/ML VIAL SQ SCH (08:11)
[2020-12-21 08:12] LABS: Glucose,Whole Blood 102 mg/dL (75-99)
[2020-12-21] MEDS ORDERED: ASPIRIN 325 MG TAB PO SCH (09:00)
[2020-12-21 10:28] LABS: Basophils # (A) 0.04 X 10*3/uL (0.00-0.10); Basophils % (A) 0.6 %; Eosinophils # (A) 0.22 X 10*3/uL (0.04-0.35); Eosinophils % (A) 3.2 %; HCT 33.6 % (37.2-46.3); HGB 10.1 g/dL (12.0-15.0); Lymphocytes # (A) 3.44 X 10*3/uL (0.90-5.00); Lymphocytes % (A) 49.5 %; MCHC 30.1 g/dL (32.0-37.0); MCV 83.2 fL (80.0-97.0); Mean Platelet Volume 10.1 fL (9.5-12.2); Monocytes % (A) 7.2 %; Neutrophils # (A) 2.71 X 10*3/uL (1.80-7.70); Neutrophils % (A) 38.9 %; Platelet Count 297 X 10*3/uL (140-440); RBC 4.04 X 10*6/uL (4.10-5.20); RDW 18.4 % (11.5-14.5); WBC 6.95 X 10*3/uL (4.50-10.00)
[2020-12-21] MEDS: METOPROLOL TARTRATE 50 MG TAB PO SCH (10:28)
[2020-12-21] MEDS: ESCITALOPRAM 20 MG TAB PO SCH (10:28)
[2020-12-21 10:55] LABS: African American GFR (CKD) 98.2 (60.0-200.0); Anion Gap 8.1 mmol/L (4.00-12.00); BUN/Creat Ratio 13.75 Ratio (12.00-20.00); Calcium 8.6 mg/dL (8.7-10.3); Carbon Dioxide 21.9 mmol/L (21.6-31.8); Chol/HDL Ratio 8.19; LDL Cholesterol,Calculated 199.2 mg/dL (0.0-131.0); Non-African American GFR(CKD) 84.8 (60.0-200.0); VLDL Calculation 59.8 mg/dL (5.00-40.00)
--- NOTE | 2020-12-21 11:05 | P.CRDCN ---
History of Present Illness History of present illness: HISTORY OF PRESENT ILLNESS: This is a 49-year old female with a past medical history significant for coronary artery disease with previous stent and CABG in 2009 at [facility], COPD, GERD, and Type 2 diabetes mellitus. Patient reports history of 2 CVAs, and 4 MIs and CABG x 2 and also reports having 7 stents with the last one being placed in 2018. Patient follows with a Dr. Sierra in [facility]. States she has not seen Dr. Sierra in over a year. We have been asked to see the patient in consultation for chest pain. Patient was transferred from [facility]. Chest pain started 3:00am. Left sided radiating to left side of neck. Associated symptoms include nausea, vomiting (1 episode) and diaphoresis. Chest pain is non-exertional. States her left neck pain is sharp pain 10/10, does sometimes hurt with movement of marisa neck. Feels the same as previous MIs. Nitro and aspirin did not help alleviate the pain. Morphine helped relieve the pain. Patient with family history of heart disease- father had an AZ in 80s and Grandmother had AZ in her 60s. She continues to smoke cigarrettes. Denies alcohol and illicit drug use. DIAGNOSTICS: EKG reveals sinus rhythm, with T wave inversions in the lateral leads, T wave flattening in lead II, poor R wave progression Prior EKG in 06/2020- normal sinus rhythm, T wave inversion in lead aVL, poor R wave progression no significant ST-T wave abnormalities Most recent echocardiogram 06/2020- LV systolic function is normal with an EF 5 5-60%, septal wall motion is delayed and consistent with prior cardiac surgery. mild TR Brain CT- negative for any acute abnormalities Laboratory data: Troponin negative 1 at [facility] and negative x 2 Here, Current home cardiac medications include [id number] mg daily, metoprolol 50 mg twice a day, Imdur 30 mg twice a day, Plavix 75 mg daily, Lipitor 80 mg daily, aspirin 81 mg daily. REVIEW OF SYSTEMS: At the time of my exam: CONSTITUTIONAL: Denies fever or chills. HEENT: Denies blurred vision, vision changes, or eye pain. Denies hemoptysis CARDIOVASCULAR: +chest pain, Denies orthopnea, PND or palpitations RESPIRATORY: No shortness of breath. GASTROINTESTINAL: Denies abdominal pain. +nausea or vomiting. HEMATOLOGIC: Denies bleeding disorders. GENITOURINARY: Denies any blood in urine. SKIN: Denies pruitis. Denies rash. PHYSICAL EXAM: VITAL SIGNS: Reviewed. GENERAL: Well-developed in no acute distress. HEENT: Head is normocephalic. Pupils are equal, round. Sclerae anicteric. Mucous membranes of the mouth are moist. Neck supple. No JVD or thyromegaly LUNGS: Respirations even and unlabored. Lungs essentially clear to auscultation bilaterally. HEART: Regular rate and rhythm. S1 and S2 heard. ABDOMEN: Soft. Nondistended. Nontender. EXTREMITIES: Normal range of motion. No clubbing or cyanosis. Peripheral pulses intact. No lower extremity edema NEUROLOGIC: Awake and alert. Oriented x 3. ASSESSMENT: Chest pain, atypical - acute coronary event has been ruled out. COPD History of coronary artery disease with previous CABG in 2008 and multiple stent placements (most recent in 2018) Diabetes mellitus, type II Hypertension Nicotine dependence History of substance abuse PLAN: Chest pain is atypical, an acute coronary event has been ruled out Patient may be discharged from a cardiac perspective and follow-up outpatient with her fast food cashier in [place] Continue home cardiac medications: [id number] mg daily, metoprolol 50 mg twice a day, Imdur 30 mg twice a day, Plavix 75 mg daily, Lipitor 80 mg daily, aspirin 81 mg daily. Nurse practitioner note has been reviewed by physician. Signing provider agrees with the documented findings, assessment, and plan of care. Past Medical History Past Medical History: Asthma, Coronary Artery Disease (CAD), COPD, Diabetes Mellitus, GERD/Reflux, Myocardial Infarction (AZ), Osteoarthritis (OA) Additional Past Medical History / Comment(s): DDD History of Any Multi-Drug Resistant Organisms: None Reported Past Surgical History: Coronary Bypass/CABG, Heart Catheterization With Stent Past Anesthesia/Blood Transfusion Reactions: No Reported Reaction Date of Last Stent Placement:: 11/2018 Past Psychological History: Anxiety, Bipolar Smoking Status: Current every day smoker Past Alcohol Use History: Occasional Past Drug Use History: Marijuana Medications and Allergies Home Medications Medication Instructions Recorded Confirmed Type ALPRAZolam [Xanax] 0.5 mg PO TID 07/08/20 12/20/20 History Aspirin EC [Ecotrin Low Dose] 81 mg PO DAILY 07/08/20 12/20/20 History Atorvastatin [Lipitor] 80 mg PO HS 07/08/20 12/20/20 History Clopidogrel [Plavix] 75 mg PO DAILY 07/08/20 12/20/20 History Cyclobenzaprine [Flexeril] 10 mg PO TID 07/08/20 12/20/20 History Escitalopram [Lexapro] 20 mg PO DAILY 07/08/20 12/20/20 History Hydrocodone/Acetaminophen [[place]on 1 tab PO Q4-6H PRN 07/08/20 12/20/20 History 10-325] Metoprolol Tartrate [Lopressor] 50 mg PO BID 07/08/20 12/20/20 History Omeprazole 40 mg PO BID 07/08/20 12/20/20 History Pregabalin [Lyrica] 75 mg PO BID 07/08/20 12/20/20 History Ranolazine [Ranolazine ER] 1,000 mg PO BID 07/08/20 12/20/20 History amLODIPine [Norvasc] 10 mg PO DAILY 07/08/20 12/20/20 History diphenhydrAMINE HCL [Benadryl] 50 mg PO HS 07/08/20 12/20/20 History Isosorbide Dinitrate 30 mg PO BID 07/09/20 12/20/20 History Albuterol Nebulized [Ventolin 2.5 mg INHALATION RT-Q6H PRN 12/20/20 12/20/20 History Nebulized] Albuterol Sulfate [Proair Hfa] 1 - 2 puff INHALATION RT-Q6H PRN 12/20/20 12/20/20 History Aspirin EC [Ecotrin Low Dose] 324 mg PO ONCE PRN 12/20/20 12/20/20 History Budesonide/Formoterol Fumarate 2 puff INHALATION RT-BID 12/20/20 12/20/20 History [Symbicort 160-4.5 Mcg Inhaler] levETIRAcetam [Keppra] 500 mg PO Q12HR 12/20/20 12/20/20 History metFORMIN HCL 1,000 mg PO BID 12/20/20 12/20/20 History rOPINIRole HCL [Requip] 0.25 mg PO HS 12/20/20 12/20/20 History Allergies Allergy/AdvReac Type Severity Reaction Status Date / Time No Known Allergies Allergy Verified 12/20/20 08:28 Physical Exam Vitals: Vital Signs Temp Pulse Resp BP Pulse Ox 12/20/20 15:33 76 12/20/20 14:00 71 16 103/74 96 12/20/20 13:53 98.2 F 12/20/20 13:00 97 23 102/70 94 L 12/20/20 12:00 68 16 107/62 92 L 12/20/20 11:31 74 12/20/20 11:22 74 12/20/20 11:00 88 16 117/70 94 L 12/20/20 10:00 89 16 124/72 92 L 12/20/20 09:00 86 20 130/85 93 L 12/20/20 08:00 88 22 118/73 94 L 12/20/20 07:27 97.8 F 81 16 152/81 94 L Intake and Output 12/20/20 12/20/20 12/20/20 06:59 14:59 22:59 Other: Weight 89.358 kg Results 12/21/20 07:07 12/21/20 07:07 Cardiac Enzymes 12/20/20 12/20/20 Range/Units 07:48 10:19 Troponin I <0.012 <0.012 (0.000-0.034) ng/mL Coagulation 12/20/20 12/20/20 Range/Units 07:48 14:32 PT 9.5 (9.0-12.0) sec APTT 18.6 L 33.6 H (22.0-30.0) sec Current Medications Generic Name Dose Route Start Last Admin Trade Name Wesleyq PRN Reason Stop Dose Admin Acetaminophen 650 mg 12/20/20 08:52 Acetaminophen Tab 325 Mg Tab PO Q6HR PRN Fever and/ or Pain Albuterol Sulfate 2.5 mg 12/20/20 08:55 Albuterol Nebulized 2.5 Mg/3 Ml INHALATION RT-Q6H PRN Shortness Of Breath Albuterol/Ipratropium 3 ml 12/20/20 12:00 12/20/20 15:33 Ipratropium-Albuterol 3 Ml Neb INHALATION 3 ml RT-QID AMANDA Administration Alprazolam 0.5 mg 12/20/20 09:00 12/20/20 09:36 Alprazolam 0.5 Mg Tab PO 0.5 mg TID [facility] Administration Aspirin 325 mg 12/21/20 09:00 Aspirin 325 Mg Tab PO DAILY [facility] Atorvastatin Calcium 80 mg 12/20/20 21:00 Atorvastatin 80 Mg Tab PO HS [facility] Budesonide/Formoterol Fumarate 2 puff 12/20/20 20:00 Symbicort 160-4.5 Mcg Inhaler INHALATION RT-BID [facility] Clopidogrel Bisulfate 75 mg 12/20/20 09:30 12/20/20 09:36 Clopidogrel 75 Mg Tab PO 75 mg DAILY [facility] Administration Cyclobenzaprine HCl 10 mg 12/20/20 08:55 Cyclobenzaprine 10 Mg Tab PO TID PRN Muscle Spasm Escitalopram Oxalate 20 mg 12/20/20 09:30 12/20/20 10:28 Escitalopram 20 Mg Tab PO 20 mg DAILY [facility] Administration Heparin Sodium (Porcine) 0 unit 12/20/20 08:53 Heparin Sodium,Porcine 5,000 Unit/Ml 1 Ml Vial IV PER PROTOCOL PRN Low PTT Protocol Heparin Sodium/Sodium Chloride 250 mls @ 10 mls/hr 12/20/20 09:00 12/20/20 09:49 25,000 unit/ Sodium Chloride IV 11.191 units/kg/hr .Q24H AMANDA 10 mls/hr Administration Protocol 11.191 UNITS/KG/HR Insulin Aspart 0 unit 12/20/20 12:30 12/20/20 12:26 Insulin Aspart (Novolog) 100 Unit/Ml Vial SQ Not Given ACHS [facility] Protocol Isosorbide Dinitrate 30 mg 12/20/20 09:30 12/20/20 10:28 Isosorbide Dinitrate 10 Mg Tab PO 30 mg BID [facility] Administration Levetiracetam 500 mg 12/20/20 09:30 12/20/20 10:28 Levetiracetam 500 Mg Tab PO 500 mg Q12HR [facility] Administration Metoprolol Tartrate 50 mg 12/20/20 09:30 12/20/20 10:28 Metoprolol Tartrate 50 Mg Tab PO 50 mg BID [facility] Administration Morphine Sulfate 2 mg 12/20/20 08:52 12/20/20 09:35 Morphine Sulfate 2 Mg/Ml Syringe IVP 2 mg Q4H PRN Administration Pain/Discomfort Nitroglycerin 0.4 mg 12/20/20 07:41 Nitroglycerin Sl Tabs 0.4 Mg Tab SUBLINGUAL Q5M PRN Chest Pain Nitroglycerin 1 inch 12/20/20 12:00 12/20/20 12:26 Nitroglycerin Oint 1 Inch/Gm Packet TOPICAL Not Given Q6HR [facility]ANDA Ondansetron HCl 4 mg 12/20/20 08:52 Ondansetron 4 Mg/2 Ml Vial IVP Q6HR PRN Nausea And Vomiting Pantoprazole Sodium 40 mg 12/20/20 09:00 12/20/20 09:36 Pantoprazole 40 Mg/10 Ml Vial IVP 40 mg DAILY [facility]ANDA Administration Pregabalin 75 mg 12/20/20 09:00 12/20/20 09:37 Pregabalin 75 Mg Cap PO 75 mg BID [facility]ANDA Administration Ranolazine 1,000 mg 12/20/20 09:30 12/20/20 10:28 Ranolazine 500 Mg Tab.Er.12h PO 1,000 mg BID [facility]ANDA Administration Ropinirole HCl 0.25 mg 12/20/20 21:00 Ropinirole Hcl 0.25 Mg Tab PO HS [facility]AN[facility] Intake and Output 12/20/20 12/20/20 12/20/20 06:59 14:59 22:59 Other: Weight 89.358 kg Patient Weight 12/21/20 06:59 Weight 89.358 kg
--- NOTE | 2020-12-21 11:16 | P.DS ---
Providers Date of admission: 12/20/20 07:41 Expected date of discharge: 12/21/20 Attending physician: Elham Moyer Consults: 12/20/20 07:41 Consult Physician Urgent Consulting Provider: Iqra Ascencio Consult Reason/Comments: cp Do you want consulting provider notified?: Yes Primary care physician: Stated None Hospital Course: This is a 50-year-old female with very complex past medical history noted below presented to the emergency room with chest pain. Patient was evaluated in the ER and admitted to the hospital for further management of her medical problems noted below. 1. Chest pain. ACS ruled out. Patient was seen and evaluated by cardiology. No further testing recommended at this time. Twelve-lead EKG showed no acute ischemic changes. Serial troponin negative 2 sets. Patient was cleared by cardiology for discharge home. Echocardiogram in June of last year showed preserved ejection fraction of 55-60%. D-dimer was normal. Continue home dose of Imdur and Ranexa 2. Coronary artery disease with history of CABG and multiple stent placement most recently last year at [facility] in [place] per patient report. On dual antiplatelet therapy with aspirin and Plavix 3. Essential hypertension: Blood pressure within acceptable range. 4. Underlying COPD, with mild exacerbation. Improved significantly 5. Type 2 diabetes: Resume medications 6. Tobacco abuse, counseled extensively to quit 7. Chronic medical problems: Underlying depression, anxiety, chronic pain syndrome, reported brain aneurysm Patient will be discharged home in a stable condition. She will follow-up with her intermodal truck driver in [place] as directed. Patient Condition at Discharge: Stable Plan - Discharge Summary New Discharge Prescriptions: Continue Pregabalin [Lyrica] 75 mg PO BID Hydrocodone/Acetaminophen [[place] 10-325] 1 tab PO Q4-6H PRN PRN Reason: Pain Escitalopram [Lexapro] 20 mg PO DAILY Cyclobenzaprine [Flexeril] 10 mg PO TID Aspirin EC [Ecotrin Low Dose] 81 mg PO DAILY amLODIPine [Norvasc] 10 mg PO DAILY Omeprazole 40 mg PO BID Metoprolol Tartrate [Lopressor] 50 mg PO BID ALPRAZolam [Xanax] 0.5 mg PO TID Ranolazine [Ranolazine ER] 1,000 mg PO BID Clopidogrel [Plavix] 75 mg PO DAILY Atorvastatin [Lipitor] 80 mg PO HS Isosorbide Dinitrate 30 mg PO BID rOPINIRole HCL [Requip] 0.25 mg PO HS Albuterol Nebulized [Ventolin Nebulized] 2.5 mg INHALATION RT-Q6H PRN PRN Reason: Shortness Of Breath levETIRAcetam [Keppra] 500 mg PO Q12HR Budesonide/Formoterol Fumarate [Symbicort 160-4.5 Mcg Inhaler] 2 puff INHALATION RT-BID Albuterol Sulfate [Proair Hfa] 1 - 2 puff INHALATION RT-Q6H PRN PRN Reason: Shortness Of Breath metFORMIN HCL 1,000 mg PO BID Discontinued diphenhydrAMINE HCL [Benadryl] 50 mg PO HS Aspirin EC [Ecotrin Low Dose] 324 mg PO ONCE PRN PRN Reason: Chest Pain Discharge Medication List ALPRAZolam [Xanax] 0.5 mg PO TID 07/08/20 [History] Aspirin EC [Ecotrin Low Dose] 81 mg PO DAILY 07/08/20 [History] Atorvastatin [Lipitor] 80 mg PO HS 07/08/20 [History] Clopidogrel [Plavix] 75 mg PO DAILY 07/08/20 [History] Cyclobenzaprine [Flexeril] 10 mg PO TID 07/08/20 [History] Escitalopram [Lexapro] 20 mg PO DAILY 07/08/20 [History] Hydrocodone/Acetaminophen [[place] 10-325] 1 tab PO Q4-6H PRN 07/08/20 [History] Metoprolol Tartrate [Lopressor] 50 mg PO BID 07/08/20 [History] Omeprazole 40 mg PO BID 07/08/20 [History] Pregabalin [Lyrica] 75 mg PO BID 07/08/20 [History] Ranolazine [Ranolazine ER] 1,000 mg PO BID 07/08/20 [History] amLODIPine [Norvasc] 10 mg PO DAILY 07/08/20 [History] Isosorbide Dinitrate 30 mg PO BID 07/09/20 [History] Albuterol Nebulized [Ventolin Nebulized] 2.5 mg INHALATION RT-Q6H PRN 12/20/20 [History] Albuterol Sulfate [Proair Hfa] 1 - 2 puff INHALATION RT-Q6H PRN 12/20/20 [History] Budesonide/Formoterol Fumarate [Symbicort 160-4.5 Mcg Inhaler] 2 puff INHALATION RT-BID 12/20/20 [History] levETIRAcetam [Keppra] 500 mg PO Q12HR 12/20/20 [History] metFORMIN HCL 1,000 mg PO BID 12/20/20 [History] rOPINIRole HCL [Requip] 0.25 mg PO HS 12/20/20 [History] Follow up Appointment(s)/Referral(s): [facility] [NON-STAFF] - As Needed (Supplier of 4 wheeled walker) None,Stated [Primary Care Provider] - 1-2 days Discharge Disposition: HOME SELF-CARE
[2020-12-21 11:53] LABS: Glucose,Whole Blood 174 mg/dL (75-99)
== END 2020-12-21 12:18 | disposition home or self-care (01) ==
LOC: EC 07:07 → 6NMEDSUR 07:41
PROVIDERS: ADMIT Internal Medicine; ATTEND Internal Medicine
DX: R07.89 Other chest pain (principal); R61 Generalized hyperhidrosis; R06.00 Dyspnea, unspecified; R11.2 Nausea with vomiting, unspecified; M54.2 Cervicalgia; I25.10 Atherosclerotic heart disease of native coronary artery without angina pectoris; E11.9 Type 2 diabetes mellitus without complications; K21.9 Gastro-esophageal reflux disease without esophagitis; J44.9 Chronic obstructive pulmonary disease, unspecified; I25.2 Old myocardial infarction; F41.9 Anxiety disorder, unspecified; F31.9 Bipolar disorder, unspecified; F17.210 Nicotine dependence, cigarettes, uncomplicated; F12.90 Cannabis use, unspecified, uncomplicated; M19.90 Unspecified osteoarthritis, unspecified site; I10 Essential (primary) hypertension; G89.4 Chronic pain syndrome; I67.1 Cerebral aneurysm, nonruptured; F19.11 Other psychoactive substance abuse, in remission; Z86.73 Personal history of transient ischemic attack (TIA), and cerebral infarction without residual deficits; Z95.1 Presence of aortocoronary bypass graft; Z95.5 Presence of coronary angioplasty implant and graft; Z79.82 Long term (current) use of aspirin; Z79.899 Other long term (current) drug therapy; Z79.02 Long term (current) use of antithrombotics/antiplatelets; Z79.891 Long term (current) use of opiate analgesic; Z79.51 Long term (current) use of inhaled steroids; Z79.84 Long term (current) use of oral hypoglycemic drugs; Z82.49 Family history of ischemic heart disease and other diseases of the circulatory system; Z20.822 Contact with and (suspected) exposure to COVID-19
CPT/HCPCS: 96376 ×2; 96366 ×2; 93005 ×2; 96365; 96375; 99285; 94640 ×2; 97162; 97166; 85379; 80061; 80048; 84484; 85025; 85610; 85730 ×2; 87635; 70450; G0378 ×2; J1644 ×3; J2405; J2270 ×2; C9113 ×2

== ENCOUNTER 2021-04-03 22:20 | Emergency (ER) | payer OTHER ==
[2021-04-03 22:28] LABS: Glucose,Whole Blood 119 mg/dL (75-99)
[2021-04-03] MEDS ORDERED: SODIUM CHLORIDE 0.9% 1,000 ML IV STA ×2 (22:30)
[2021-04-03] MEDS ORDERED: methylPREDNISolone SOD SUCCI 125 MG/2 ML VIAL IV STA (22:31)
[2021-04-03] MEDS ORDERED: LORazepam 2 MG/ML INJ IV STA ×2 (22:38→22:45)
[2021-04-03] MEDS ORDERED: levETIRAcetam IV 1,500 MG in SALINE 1 100ML.BAG IVPB ONE (22:45)
[2021-04-03] MEDS ORDERED: DIAZEPAM 5 MG/ML 2 ML INJ IVP STA (22:48)
[2021-04-03 23:07] LABS: VBG PH 7.33 (7.31-7.41)
[2021-04-03 23:07] LABS: Anisocytosis Slight; Basophils # (A) 0.1 k/uL (0-0.2); Basophils % (A) 1 %; Eosinophils # (A) 0.3 k/uL (0-0.7); Eosinophils % (A) 3 %; HCT 35.5 % (34.0-46.0); HGB 11.4 gm/dL (11.4-16.0); Hypochromasia Moderate; Lymphocytes # (A) 3.3 k/uL (1.0-4.8); Lymphocytes % (A) 39 %; MCHC 32.1 g/dL (31.0-37.0); Mean Platelet Volume 7.3; Microcytosis Moderate; Monocytes # (A) 0.7 k/uL (0-1.0); Monocytes % (A) 8 %; Neutrophils # (A) 4.1 k/uL (1.3-7.7); Neutrophils % (A) 47 %; Platelet Count 299 k/uL (150-450); RBC 4.55 m/uL (3.80-5.40); RDW 19.9 % (11.5-15.5); WBC 8.6 k/uL (3.8-10.6)
[2021-04-03 23:13] VITALS: TEMP 98
[2021-04-03 23:16] LABS: Lactic Acid, Venous 1.9 mmol/L (0.7-2.0)
[2021-04-03 23:18] LABS: ALT 19 U/L (4-34); AST 32 U/L (14-36); Acetaminophen <10.0 ug/mL; African American GFR (CKD) >90 (>60 ml/min/1.73 sqM); Albumin 4.1 g/dL (3.5-5.0); Alcohol <10 mg/dL; Alkaline Phosphatase 135 U/L (38-126); Anion Gap 8 mmol/L; Blood Urea Nitrogen 14 mg/dL (7-17); Calcium 9.6 mg/dL (8.4-10.2); Carbon Dioxide 24 mmol/L (22-30); Chloride 108 mmol/L (98-107); Creatine Kinase 68 U/L (30-135); Glucose 101 mg/dL (74-99); INR 0.9 (<1.2); Magnesium 1.8 mg/dL (1.6-2.3); Non-African American GFR(CKD) 82 (>60 ml/min/1.73 sqM); Phosphorus 3.7 mg/dL (2.5-4.5); Potassium 3.6 mmol/L (3.5-5.1); Prothrombin Time 10.2 sec (9.0-12.0); Salicylate <1.0 mg/dL; Sodium 140 mmol/L (137-145); Total Bilirubin 0.7 mg/dL (0.2-1.3); Total Protein 6.5 g/dL (6.3-8.2)
--- NOTE | 2021-04-03 23:30 | XR ---
EXAMINATION TYPE: XR chest 1V portable DATE OF EXAM: 04/03/2021 COMPARISON: 12/20/2020 HISTORY: Weakness seizure TECHNIQUE: Single view FINDINGS: Heart and mediastinum appear normal. Lungs are clear of infiltrate. There is no heart failu re. There are chest leads. Costophrenic angles are clear. Bony thorax is intact. IMPRESSION: No active cardiopulmonary disease. No change.
[2021-04-03] MEDS ORDERED: ONDANSETRON 4 MG/2 ML VIAL IVP PRN (23:32)
[2021-04-03] MEDS ORDERED: NALOXONE 0.4 MG/ML 1 ML VIAL IV PRN (23:32)
--- NOTE | 2021-04-03 23:38 | ED ---
Seizure HPI - General Chief Complaint: Seizure Stated Complaint: seizure Time Seen by Provider: 04/03/21 22:30 Source: family, RN notes reviewed, old records reviewed Mode of arrival: wheelchair Limitations: altered mental status, physical limitation - History of Present Illness Initial Comments: This is a 50-year-old female who presents by car drop-off for active seizure. Patient unresponsive on arrival. Patient given supportive oxygen, did have a pulse and maintaining airway. Patient watch closely for possible intubation but she did come out of the seizure but remained significantly postictal history obtained from family and prior charting MD Complaint: seizure, loss of consciousness -: hour(s) Description of Episode: loss of consciousness, tonic-clonic movement, bladder incontinence, bowel incontinence, post-event confusion -: minutes(s) Witnessed: yes - by bystander Seizure History: known seizure disorder Place: home Possible Precipitating Event: none Associated Symptoms: denies other symptoms Treatments Prior to Arrival: none - Related Data Home Medications Medication Instructions Recorded Confirmed ALPRAZolam [Xanax] 0.5 mg PO TID 07/08/20 12/20/20 Aspirin EC [Ecotrin Low Dose] 81 mg PO DAILY 07/08/20 12/20/20 Atorvastatin [Lipitor] 80 mg PO HS 07/08/20 12/20/20 Clopidogrel [Plavix] 75 mg PO DAILY 07/08/20 12/20/20 Cyclobenzaprine [Flexeril] 10 mg PO TID 07/08/20 12/20/20 Escitalopram [Lexapro] 20 mg PO DAILY 07/08/20 12/20/20 Hydrocodone/Acetaminophen [[place] 1 tab PO Q4-6H PRN 07/08/20 12/20/20 10-325] Metoprolol Tartrate [Lopressor] 50 mg PO BID 07/08/20 12/20/20 Omeprazole 40 mg PO BID 07/08/20 12/20/20 Pregabalin [Lyrica] 75 mg PO BID 07/08/20 12/20/20 Ranolazine [Ranolazine ER] 1,000 mg PO BID 07/08/20 12/20/20 amLODIPine [Norvasc] 10 mg PO DAILY 07/08/20 12/20/20 Isosorbide Dinitrate 30 mg PO BID 07/09/20 12/20/20 Albuterol Nebulized [Ventolin 2.5 mg INHALATION RT-Q6H PRN 12/20/20 12/20/20 Nebulized] Albuterol Sulfate [Proair Hfa] 1 - 2 puff INHALATION RT-Q6H PRN 12/20/20 12/20/20 Budesonide/Formoterol Fumarate 2 puff INHALATION RT-BID 12/20/20 12/20/20 [Symbicort 160-4.5 Mcg Inhaler] levETIRAcetam [Keppra] 500 mg PO Q12HR 12/20/20 12/20/20 metFORMIN HCL 1,000 mg PO BID 12/20/20 12/20/20 rOPINIRole HCL [Requip] 0.25 mg PO HS 12/20/20 12/20/20 Allergies Allergy/AdvReac Type Severity Reaction Status Date / Time No Known Allergies Allergy Verified 12/20/20 08:28 Review of Systems ROS Statement: Those systems with pertinent positive or pertinent negative responses have been documented in the HPI. ROS Other: All systems not noted in ROS Statement are negative. Past Medical History Past Medical History: Asthma, Coronary Artery Disease (CAD), COPD, Diabetes Mellitus, GERD/Reflux, Myocardial Infarction (OR), Osteoarthritis (OA) Additional Past Medical History / Comment(s): DDD Last Myocardial Infarction Date:: 2011 History of Any Multi-Drug Resistant Organisms: None Reported Past Surgical History: Coronary Bypass/CABG, Heart Catheterization With Stent Past Anesthesia/Blood Transfusion Reactions: No Reported Reaction Date of Last Stent Placement:: 11/2018 Past Psychological History: Anxiety, Bipolar Smoking Status: Current every day smoker Past Alcohol Use History: Occasional Past Drug Use History: Marijuana General Exam Limitations: altered mental status, physical limitation General appearance: lethargic, obtunded, in distress Head exam: Present: atraumatic, normocephalic, normal inspection Eye exam: Present: normal appearance, other (Patient's pupils are reacting is active seizure). Absent: scleral icterus, conjunctival injection, periorbital swelling ENT exam: Present: normal exam, mucous membranes moist Neck exam: Present: normal inspection. Absent: tenderness, meningismus, lymph adenopathy Respiratory exam: Present: normal lung sounds bilaterally. Absent: respiratory distress, wheezes, rales, rhonchi, stridor Cardiovascular Exam: Present: regular rate, normal rhythm, normal heart sounds. Absent: systolic murmur, diastolic murmur, rubs, gallop, clicks GI/Abdominal exam: Present: soft, normal bowel sounds. Absent: distended, tenderness, guarding, rebound, rigid Extremities exam: Present: normal inspection, full ROM, normal capillary refill. Absent: tenderness, pedal edema, joint swelling, calf tenderness Back exam: Present: normal inspection Neurological exam: Present: alert, oriented X3, CN II-XII intact Psychiatric exam: Present: normal affect, normal mood Skin exam: Present: warm, dry, intact, normal color. Absent: rash Course Vital Signs 04/03/21 04/03/21 04/03/21 22:42 22:50 23:00 Temperature 98.0 F Pulse Rate 89 60 78 Respiratory 24 19 13 Rate Blood Pressure 134/84 143/93 O2 Sat by Pulse 98 99 98 Oximetry 04/03/21 04/03/21 23:10 23:16 Temperature Pulse Rate 72 Respiratory 33 H 18 Rate Blood Pressure 149/90 O2 Sat by Pulse 98 97 Oximetry - Reevaluation(s) Reevaluation #1: 04/03/21 23:36 Medical record is reviewed Reevaluation #2: 04/03/21 23:36 Patient has multiple recurrent seizures here in the ER requiring evaluation, Ativan Reevaluation #3: 04/03/21 23:36 Patient given Valium for recurrent seizures Reevaluation #4: 04/03/21 23:37 Currently patient is return to Baseline, informed results questions answered - Consultations Consultation #1: Spoke with sound who agree to admit the patient Medical Decision Making - Medical Decision Making 50 female DF for evaluation. Presents in status epilepticus today multiple seizures here in the ER without recurrent baseline. At this time patient's awake alert conversant, requiring antibiotic medication here in the emergency department placed back on Keppra IV and will be admitted for neurology to evaluate - Lab Data Result diagrams: 04/03/21 22:56 04/03/21 22:56 Lab Results 04/03/21 04/03/21 04/03/21 Range/Units 22:27 22:50 22:56 WBC 8.6 (3.8-10.6) k/uL RBC 4.55 (3.80-5.40) m/uL Hgb 11.4 (11.4-16.0) gm/dL Hct 35.5 (34.0-46.0) % MCV 78.0 L (80.0-100.0) fL MCH 25.0 (25.0-35.0) pg MCHC 32.1 (31.0-37.0) g/dL RDW 19.9 H (11.5-15.5) % Plt Count 299 (150-450) k/uL MPV 7.3 Neutrophils % 47 % Lymphocytes % 39 % Monocytes % 8 % Eosinophils % 3 % Basophils % 1 % Neutrophils # 4.1 (1.3-7.7) k/uL Lymphocytes # 3.3 (1.0-4.8) k/uL Monocytes # 0.7 (0-1.0) k/uL Eosinophils # 0.3 (0-0.7) k/uL Basophils # 0.1 (0-0.2) k/uL Hypochromasia Moderate Anisocytosis Slight Microcytosis Moderate VBG pH 7.33 (7.31-7.41) VBG pCO2 47 (37-51) mmHg VBG HCO3 24 (24-28) mmol/L Sodium (137-145) mmol/L Potassium (3.5-5.1) mmol/L Chloride (98-107) mmol/L Carbon Dioxide (22-30) mmol/L Anion Gap mmol/L BUN (7-17) mg/dL Creatinine (0.52-1.04) mg/dL Est GFR (CKD-EPI)AfAm (>60 ml/min/1.73 sqM) Est GFR (CKD-EPI)NonAf (>60 ml/min/1.73 sqM) Glucose (74-99) mg/dL POC Glucose (mg/dL) 119 H (75-99) mg/dL POC Glu [employer] Welding Equipment [employer]ic ID Alo, Rupa Plasma Lactic Acid Sarthak (0.7-2.0) mmol/L Calcium (8.4-10.2) mg/dL Phosphorus (2.5-4.5) mg/dL Magnesium (1.6-2.3) mg/dL Total Bilirubin (0.2-1.3) mg/dL AST (14-36) U/L ALT (4-34) U/L Alkaline Phosphatase (38-126) U/L Ammonia (<30) umol/L Creatine Kinase (30-135) U/L Troponin I (0.000-0.034) ng/mL NT-Pro-B Natriuret Pep pg/mL Total Protein (6.3-8.2) g/dL Albumin (3.5-5.0) g/dL Salicylates mg/dL Acetaminophen ug/mL Serum Alcohol mg/dL 04/03/21 04/03/21 04/03/21 Range/Units 22:56 22:56 22:56 WBC (3.8-10.6) k/uL RBC (3.80-5.40) m/uL Hgb (11.4-16.0) gm/dL Hct (34.0-46.0) % MCV (80.0-100.0) fL MCH (25.0-35.0) pg MCHC (31.0-37.0) g/dL RDW (11.5-15.5) % Plt Count (150-450) k/uL MPV Neutrophils % % Lymphocytes % % Monocytes % % Eosinophils % % Basophils % % Neutrophils # (1.3-7.7) k/uL Lymphocytes # (1.0-4.8) k/uL Monocytes # (0-1.0) k/uL Eosinophils # (0-0.7) k/uL Basophils # (0-0.2) k/uL Hypochromasia Anisocytosis Microcytosis VBG pH (7.31-7.41) VBG pCO2 (37-51) mmHg VBG HCO3 (24-28) mmol/L Sodium 140 (137-145) mmol/L Potassium 3.6 (3.5-5.1) mmol/L Chloride 108 H (98-107) mmol/L Carbon Dioxide 24 (22-30) mmol/L Anion Gap 8 mmol/L BUN 14 (7-17) mg/dL Creatinine 0.83 (0.52-1.04) mg/dL Est GFR (CKD-EPI)AfAm >90 (>60 ml/min/1.73 sqM) Est GFR (CKD-EPI)NonAf 82 (>60 ml/min/1.73 sqM) Glucose 101 H (74-99) mg/dL POC Glucose (mg/dL) (75-99) mg/dL POC Glu [employer] Welding Equipment Mechanic ID Plasma Lactic Acid Sarthak 1.9 (0.7-2.0) mmol/L Calcium 9.6 (8.4-10.2) mg/dL Phosphorus 3.7 (2.5-4.5) mg/dL Magnesium 1.8 (1.6-2.3) mg/dL Total Bilirubin 0.7 (0.2-1.3) mg/dL AST 32 (14-36) U/L ALT 19 (4-34) U/L Alkaline Phosphatase 135 H (38-126) U/L Ammonia <9 (<30) umol/L Creatine Kinase 68 (30-135) U/L Troponin I <0.012 (0.000-0.034) ng/mL NT-Pro-B Natriuret Pep pg/mL Total Protein 6.5 (6.3-8.2) g/dL Albumin 4.1 (3.5-5.0) g/dL Salicylates <1.0 mg/dL Acetaminophen <10.0 ug/mL Serum Alcohol <10 mg/dL 04/03/21 Range/Units 22:56 WBC (3.8-10.6) k/uL RBC (3.80-5.40) m/uL Hgb (11.4-16.0) gm/dL Hct (34.0-46.0) % MCV (80.0-100.0) fL MCH (25.0-35.0) pg MCHC (31.0-37.0) g/dL RDW (11.5-15.5) % Plt Count (150-450) k/uL MPV Neutrophils % % Lymphocytes % % Monocytes % % Eosinophils % % Basophils % % Neutrophils # (1.3-7.7) k/uL Lymphocytes # (1.0-4.8) k/uL Monocytes # (0-1.0) k/uL Eosinophils # (0-0.7) k/uL Basophils # (0-0.2) k/uL Hypochromasia Anisocytosis Microcytosis VBG pH (7.31-7.41) VBG pCO2 (37-51) mmHg VBG HCO3 (24-28) mmol/L Sodium (137-145) mmol/L Potassium (3.5-5.1) mmol/L Chloride (98-107) mmol/L Carbon Dioxide (22-30) mmol/L Anion Gap mmol/L BUN (7-17) mg/dL Creatinine (0.52-1.04) mg/dL Est GFR (CKD-EPI)AfAm (>60 ml/min/1.73 sqM) Est GFR (CKD-EPI)NonAf (>60 ml/min/1.73 sqM) Glucose (74-99) mg/dL POC Glucose (mg/dL) (75-99) mg/dL POC Glu [employer] Welding Equipment Mechanic ID Plasma Lactic Acid Sarthak (0.7-2.0) mmol/L Calcium (8.4-10.2) mg/dL Phosphorus (2.5-4.5) mg/dL Magnesium (1.6-2.3) mg/dL Total Bilirubin (0.2-1.3) mg/dL AST (14-36) U/L ALT (4-34) U/L Alkaline Phosphatase (38-126) U/L Ammonia (<30) umol/L Creatine Kinase (30-135) U/L Troponin I (0.000-0.034) ng/mL NT-Pro-B Natriuret Pep 193 pg/mL Total Protein (6.3-8.2) g/dL Albumin (3.5-5.0) g/dL Salicylates mg/dL Acetaminophen ug/mL Serum Alcohol mg/dL - Radiology Data Radiology results: report reviewed (CT brain negative for acute disease), image reviewed Critical Care Time Critical Care Time: Yes Total Critical Care Time: 31 Disposition Clinical Impression: Status epilepticus, Intractable seizure disorder, Epileptic seizure, generalized Disposition: ADMITTED IP TO THIS [facility] Condition: Serious Instructions (If sedation given, give patient instructions): Seizure/Epilepsy Discharge Instructions & Follow-Up Is patient prescribed a controlled substance at d/c from ED?: No Referrals: None,Stated [Primary Care Provider] - 1-2 days
[2021-04-03 23:40] LABS: Partial Thromboplastin Time 21.2 sec (22.0-30.0)
--- NOTE | 2021-04-03 23:53 | CT ---
EXAMINATION TYPE: CT brain wo con DATE OF EXAM: 04/03/2021 COMPARISON: 12/20/2020 HISTORY: seizure CT DLP: 1031.4 mGycm Automated exposure control for dose reduction was used. Ventricles and sulci appear normal. There is no mass effect nor midline shift. There is no sign of in tracranial hemorrhage. Calvarium is intact. There is normal aeration of the mastoid sinuses. Skull ba se is intact. IMPRESSION: Normal unenhanced head CT scan. No change.
--- NOTE | 2021-04-04 00:20 | ED ---
Medical Decision Making - Medical Decision Making 50 female DF for evaluation and reevaluation here in the emergency room patient continues to have recurrent seizures. Family at this time prefers discharged to [facility] is a very difficult to console seizures at home. Family is agreeable for transfer this patient has not returned to complete baseline are remaining postictal although alert able to answer questions - Lab Data Result diagrams: 04/03/21 22:56 04/03/21 22:56 Lab Results 04/03/21 04/03/21 04/03/21 Range/Units 22:27 22:50 22:56 WBC 8.6 (3.8-10.6) k/uL RBC 4.55 (3.80-5.40) m/uL Hgb 11.4 (11.4-16.0) gm/dL Hct 35.5 (34.0-46.0) % MCV 78.0 L (80.0-100.0) fL MCH 25.0 (25.0-35.0) pg MCHC 32.1 (31.0-37.0) g/dL RDW 19.9 H (11.5-15.5) % Plt Count 299 (150-450) k/uL MPV 7.3 Neutrophils % 47 % Lymphocytes % 39 % Monocytes % 8 % Eosinophils % 3 % Basophils % 1 % Neutrophils # 4.1 (1.3-7.7) k/uL Lymphocytes # 3.3 (1.0-4.8) k/uL Monocytes # 0.7 (0-1.0) k/uL Eosinophils # 0.3 (0-0.7) k/uL Basophils # 0.1 (0-0.2) k/uL Hypochromasia Moderate Anisocytosis Slight Microcytosis Moderate PT (9.0-12.0) sec INR (<1.2) APTT (22.0-30.0) sec VBG pH 7.33 (7.31-7.41) VBG pCO2 47 (37-51) mmHg VBG HCO3 24 (24-28) mmol/L Sodium (137-145) mmol/L Potassium (3.5-5.1) mmol/L Chloride (98-107) mmol/L Carbon Dioxide (22-30) mmol/L Anion Gap mmol/L BUN (7-17) mg/dL Creatinine (0.52-1.04) mg/dL Est GFR (CKD-EPI)AfAm (>60 ml/min/1.73 sqM) Est GFR (CKD-EPI)NonAf (>60 ml/min/1.73 sqM) Glucose (74-99) mg/dL POC Glucose (mg/dL) 119 H (75-99) mg/dL POC Glu Nursing Assoc ID Alo, Rupa Plasma Lactic Acid Sarthak (0.7-2.0) mmol/L Calcium (8.4-10.2) mg/dL Phosphorus (2.5-4.5) mg/dL Magnesium (1.6-2.3) mg/dL Total Bilirubin (0.2-1.3) mg/dL AST (14-36) U/L ALT (4-34) U/L Alkaline Phosphatase (38-126) U/L Ammonia (<30) umol/L Creatine Kinase (30-135) U/L Troponin I (0.000-0.034) ng/mL NT-Pro-B Natriuret Pep pg/mL Total Protein (6.3-8.2) g/dL Albumin (3.5-5.0) g/dL TSH (0.465-4.680) mIU/L Salicylates mg/dL Acetaminophen ug/mL Serum Alcohol mg/dL 04/03/21 04/03/21 04/03/21 Range/Units 22:56 22:56 22:56 WBC (3.8-10.6) k/uL RBC (3.80-5.40) m/uL Hgb (11.4-16.0) gm/dL Hct (34.0-46.0) % MCV (80.0-100.0) fL MCH (25.0-35.0) pg MCHC (31.0-37.0) g/dL RDW (11.5-15.5) % Plt Count (150-450) k/uL MPV Neutrophils % % Lymphocytes % % Monocytes % % Eosinophils % % Basophils % % Neutrophils # (1.3-7.7) k/uL Lymphocytes # (1.0-4.8) k/uL Monocytes # (0-1.0) k/uL Eosinophils # (0-0.7) k/uL Basophils # (0-0.2) k/uL Hypochromasia Anisocytosis Microcytosis PT 10.2 (9.0-12.0) sec INR 0.9 (<1.2) APTT 21.2 L (22.0-30.0) sec VBG pH (7.31-7.41) VBG pCO2 (37-51) mmHg VBG HCO3 (24-28) mmol/L Sodium 140 (137-145) mmol/L Potassium 3.6 (3.5-5.1) mmol/L Chloride 108 H (98-107) mmol/L Carbon Dioxide 24 (22-30) mmol/L Anion Gap 8 mmol/L BUN 14 (7-17) mg/dL Creatinine 0.83 (0.52-1.04) mg/dL Est GFR (CKD-EPI)AfAm >90 (>60 ml/min/1.73 sqM) Est GFR (CKD-EPI)NonAf 82 (>60 ml/min/1.73 sqM) Glucose 101 H (74-99) mg/dL POC Glucose (mg/dL) (75-99) mg/dL POC Glu Nursing Assoc ID Plasma Lactic Acid Sarthak 1.9 (0.7-2.0) mmol/L Calcium 9.6 (8.4-10.2) mg/dL Phosphorus 3.7 (2.5-4.5) mg/dL Magnesium 1.8 (1.6-2.3) mg/dL Total Bilirubin 0.7 (0.2-1.3) mg/dL AST 32 (14-36) U/L ALT 19 (4-34) U/L Alkaline Phosphatase 135 H (38-126) U/L Ammonia <9 (<30) umol/L Creatine Kinase 68 (30-135) U/L Troponin I (0.000-0.034) ng/mL NT-Pro-B Natriuret Pep pg/mL Total Protein 6.5 (6.3-8.2) g/dL Albumin 4.1 (3.5-5.0) g/dL TSH 3.760 (0.465-4.680) mIU/L Salicylates <1.0 mg/dL Acetaminophen <10.0 ug/mL Serum Alcohol <10 mg/dL 04/03/21 04/03/21 Range/Units 22:56 22:56 WBC (3.8-10.6) k/uL RBC (3.80-5.40) m/uL Hgb (11.4-16.0) gm/dL Hct (34.0-46.0) % MCV (80.0-100.0) fL MCH (25.0-35.0) pg MCHC (31.0-37.0) g/dL RDW (11.5-15.5) % Plt Count (150-450) k/uL MPV Neutrophils % % Lymphocytes % % Monocytes % % Eosinophils % % Basophils % % Neutrophils # (1.3-7.7) k/uL Lymphocytes # (1.0-4.8) k/uL Monocytes # (0-1.0) k/uL Eosinophils # (0-0.7) k/uL Basophils # (0-0.2) k/uL Hypochromasia Anisocytosis Microcytosis PT (9.0-12.0) sec INR (<1.2) APTT (22.0-30.0) sec VBG pH (7.31-7.41) VBG pCO2 (37-51) mmHg VBG HCO3 (24-28) mmol/L Sodium (137-145) mmol/L Potassium (3.5-5.1) mmol/L Chloride (98-107) mmol/L Carbon Dioxide (22-30) mmol/L Anion Gap mmol/L BUN (7-17) mg/dL Creatinine (0.52-1.04) mg/dL Est GFR (CKD-EPI)AfAm (>60 ml/min/1.73 sqM) Est GFR (CKD-EPI)NonAf (>60 ml/min/1.73 sqM) Glucose (74-99) mg/dL POC Glucose (mg/dL) (75-99) mg/dL POC Glu Nursing Assoc ID Plasma Lactic Acid Sarthak (0.7-2.0) mmol/L Calcium (8.4-10.2) mg/dL Phosphorus (2.5-4.5) mg/dL Magnesium (1.6-2.3) mg/dL Total Bilirubin (0.2-1.3) mg/dL AST (14-36) U/L ALT (4-34) U/L Alkaline Phosphatase (38-126) U/L Ammonia (<30) umol/L Creatine Kinase (30-135) U/L Troponin I <0.012 (0.000-0.034) ng/mL NT-Pro-B Natriuret Pep 193 pg/mL Total Protein (6.3-8.2) g/dL Albumin (3.5-5.0) g/dL TSH (0.465-4.680) mIU/L Salicylates mg/dL Acetaminophen ug/mL Serum Alcohol mg/dL Critical Care Time Critical Care Time: Yes Total Critical Care Time: 31 Disposition Clinical Impression: Status epilepticus, Intractable seizure disorder, Epileptic seizure, generalize d Disposition: TRANSFER TO PSYCH HOSP/UNIT Condition: Serious Is patient prescribed a controlled substance at d/c from ED?: No - Out of Hospital Transfer - Req. Specs Out of Hospital Transfer - Requested Specifics: Other Emergency Center ([facility])
[2021-04-04 01:29] VITALS: BP 109/71; PULSE 78; RESP 18
--- NOTE | 2021-04-04 02:58 | P.PN ---
Progress Note - Text Progress Note Date: 04/04/21 The patient was initially admitted to our service. I evaluated the patient in the emergency room. During the history taking, it became clear that the patient has been having continuous seizures throughout the day today as per the daughter at the bedside. The patient was confused and could provide little meaningful history. A full physical examination was not performed. I discussed the case with the emergency room physician regarding possible transfer due to suspected status epilepticus. He agreed with transfer to a tertiary care facility with 24-hour EEG monitoring. Advised the ED physician to load the patient with antiepileptics prior to transfer.
[2021-04-04] MEDS ORDERED: levETIRAcetam IV 1,000 MG in SALINE 1 100ML.BAG IVPB SCH (09:00)
== END 2021-04-04 01:32 ==
LOC: EC 22:20 → 3SCARD 23:32 → UNDOADMIN 23:32 → EC 04-04 01:32
DX: G40.411 Other generalized epilepsy and epileptic syndromes, intractable, with status epilepticus (principal); E11.9 Type 2 diabetes mellitus without complications; I25.10 Atherosclerotic heart disease of native coronary artery without angina pectoris; I25.2 Old myocardial infarction; J44.9 Chronic obstructive pulmonary disease, unspecified; M19.90 Unspecified osteoarthritis, unspecified site; F31.9 Bipolar disorder, unspecified; F41.9 Anxiety disorder, unspecified; F17.200 Nicotine dependence, unspecified, uncomplicated; F12.90 Cannabis use, unspecified, uncomplicated; Z79.82 Long term (current) use of aspirin; Z79.51 Long term (current) use of inhaled steroids; Z79.84 Long term (current) use of oral hypoglycemic drugs; Z79.891 Long term (current) use of opiate analgesic; Z79.899 Other long term (current) drug therapy
CPT/HCPCS: 96375 ×4; 96361 ×2; 96374 ×2; 99285 ×2; 36415; 93005; 83880; 80053; 80177; 82140; 82550; 82803; 83605; 83735; 84100; 84443; 84484; 85025; 85610; 85730; 80143; 80179; 71045; 70450; G0480; J2060; J2930; J3360; J1953; 80320

== ENCOUNTER 2021-11-12 17:01 | Inpatient (IN) | payer OTHER ==
[2021-11-12] MEDS ORDERED: NITROGLYCERIN OINT 1 INCH/GM PACKET TOPICAL STA (17:04)
[2021-11-12] MEDS ORDERED: HEPARIN SODIUM 1,000 UN/ML (10ML VL) IV ONE (17:04)
--- NOTE | 2021-11-12 17:08 | ED ---
Chest Pain HPI - General Stated Complaint: chest pain Time Seen by Provider: 11/12/21 17:03 Source: RN notes reviewed - History of Present Illness Initial Comments: 51-year-old female with extensive cardiac history including bypass surgery 2008 who presents with complaints of sharp midsternal chest pain 07/04 severity is started about one half hours ago she was given 324 aspirin as well as nitroglycerin with resolution of the pain down to a 6 she also had nausea with it. She states it feels similar to her previous episodes of heart disease. No shortness of breath at this time no fevers chills or sweats. MD Complaint: chest pain - Related Data Home Medications Medication Instructions Recorded Confirmed ALPRAZolam [Xanax] 0.5 mg PO TID 07/08/20 11/12/21 Aspirin EC [Ecotrin Low Dose] 81 mg PO DAILY 07/08/20 11/12/21 Atorvastatin [Lipitor] 80 mg PO HS 07/08/20 11/12/21 Clopidogrel [Plavix] 75 mg PO DAILY 07/08/20 11/12/21 Escitalopram [Lexapro] 20 mg PO DAILY 07/08/20 11/12/21 Hydrocodone/Acetaminophen [[place] 1 tab PO TID 07/08/20 11/12/21 10-325] Metoprolol Tartrate [Lopressor] 50 mg PO BID 07/08/20 11/12/21 Omeprazole 40 mg PO BID 07/08/20 11/12/21 amLODIPine [Norvasc] 10 mg PO DAILY 07/08/20 11/12/21 Albuterol Sulfate [Proair Hfa] 2 puff INHALATION RT-TID 12/20/20 11/12/21 metFORMIN HCL [Glucophage] 1,000 mg PO BID 12/20/20 11/12/21 Abilify 5mg(Unknown) 1 tab PO DAILY 11/12/21 11/12/21 Butalb/Acetaminophen/Caffeine 1 tab PO DAILY 11/12/21 11/12/21 [Fioricet 50-325-40] Isosorbide(Unknown) 1 tab PO DIRECTED 11/12/21 11/12/21 Nitroglycerin Sl Tabs [Nitrostat] 0.4 mg SL Q5M PRN 11/12/21 11/12/21 Pregabalin [Lyrica] 150 mg PO BID 11/12/21 11/12/21 Ranexa Er 1000mg(Unknown) 1 tab PO DIRECTED 11/12/21 11/12/21 Tiotropium 2.5 Mcg/Puff [Spiriva 1 puff INHALATION RT-BID 11/12/21 11/12/21 Respimat 2.5 Mcg] diphenhydrAMINE [Benadryl] 25 mg PO BID 11/12/21 11/12/21 rOPINIRole HCL [Requip] 1 mg PO HS 11/12/21 11/12/21 Allergies Allergy/AdvReac Type Severity Reaction Status Date / Time No Known Allergies Allergy Verified 11/12/21 17:23 Review of Systems ROS Statement: Those systems with pertinent positive or pertinent negative responses have been documented in the HPI. ROS Other: All systems not noted in ROS Statement are negative. EKG Findings - EKG Results: EKG: interpreted by SANJUANITA, sinus rhythm (Sinus bradycardia rate 54. Ago 146 QRS duration 84 QT since QTC 432/[address]-T wave configuration) Past Medical History Past Medical History: Asthma, Coronary Artery Disease (CAD), COPD, Diabetes Mellitus, GERD/Reflux, Myocardial Infarction (PR), Osteoarthritis (OA) Additional Past Medical History / Comment(s): DDD Last Myocardial Infarction Date:: 2011 History of Any Multi-Drug Resistant Organisms: None Reported Past Surgical History: Coronary Bypass/CABG, Heart Catheterization With Stent Past Anesthesia/Blood Transfusion Reactions: No Reported Reaction Date of Last Stent Placement:: 11/2018 Past Psychological History: Anxiety, Bipolar Smoking Status: Current every day smoker Past Alcohol Use History: Occasional Past Drug Use History: Marijuana General Exam - General Exam Comments Initial Comments: This is a well-developed well-nourished awake alert oriented 3 female General appearance: alert, in no apparent distress Head exam: Present: atraumatic, normocephalic, normal inspection Eye exam: Present: normal appearance, PERRL, EOMI. Absent: scleral icterus, conjunctival injection, periorbital swelling ENT exam: Present: normal exam, mucous membranes moist Neck exam: Present: normal inspection, full ROM, other. Absent: tenderness, meningismus, lymphadenopathy Respiratory exam: Present: normal lung sounds bilaterally. Absent: respiratory distress, wheezes, rales, rhonchi, stridor Cardiovascular Exam: Present: regular rate, normal rhythm, normal heart sounds. Absent: systolic murmur, diastolic murmur, rubs, gallop, clicks GI/Abdominal exam: Present: soft, normal bowel sounds. Absent: distended, tenderness, guarding, rebound, rigid, bruit (No surgery or bruits), pulsatile mass Extremities exam: Present: normal inspection, full ROM, normal capillary refill. Absent: tenderness, pedal edema, joint swelling, calf tenderness Back exam: Present: normal inspection Neurological exam: Present: alert, oriented X3, CN II-XII intact Psychiatric exam: Present: normal affect, normal mood Skin exam: Present: warm, dry, intact, normal color. Absent: rash Course Vital Signs 11/12/21 11/12/21 17:13 18:04 Temperature 98.6 F Pulse Rate 62 54 L Respiratory 18 18 Rate Blood Pressure 162/91 150/81 O2 Sat by Pulse 92 L 98 Oximetry - Reevaluation(s) Reevaluation #1: 11/12/21 19:23 Did complain of more chest pain and nausea. She was given IV morphine and Zofran Chest Pain MDM - MDM Imaging reviewed no evidence of acute findings this was within normal limits patient will be admitted I did discuss the case with Dr. Cortez. All labs are not back at this time Critical Care Time Critical Care Time: Yes Total Critical Care Time: 31 Critical Care Time: Critical care time including initial presentation with history physical labs x- rays multiple reevaluation the patient discussed with the admitting physician review of old charting admission orders documentation the above Disposition Clinical Impression: Chest pain, Unstable angina pectoris Disposition: ADMITTED IP TO THIS [facility] Condition: Fair Referrals: Nonstaff,Physician [Primary Care Provider] - 1-2 days
[2021-11-12 17:24] LABS: Anisocytosis Slight; Basophils % (A) 1 %; Eosinophils # (A) 0.2 k/uL (0-0.7); Eosinophils % (A) 2 %; HCT 40.4 % (34.0-46.0); HGB 12.9 gm/dL (11.4-16.0); Hypochromasia Moderate; Lymphocytes # (A) 2.7 k/uL (1.0-4.8); Lymphocytes % (A) 29 %; MCH 26.4 pg (25.0-35.0); MCV 82.5 fL (80.0-100.0); Mean Platelet Volume 7.4; Monocytes # (A) 0.7 k/uL (0-1.0); Monocytes % (A) 7 %; Neutrophils # (A) 5.2 k/uL (1.3-7.7); Neutrophils % (A) 57 %; Platelet Count 382 k/uL (150-450); WBC 9.2 k/uL (3.8-10.6)
[2021-11-12] MEDS ORDERED: MORPHINE SULFATE 4 MG/ML SYRINGE IVP STA ×2 (17:27→19:22)
[2021-11-12 17:30] LABS: ALT 17 U/L (4-34); AST 23 U/L (14-36); African American GFR (CKD) >90 (>60 ml/min/1.73 sqM); Albumin 4.4 g/dL (3.5-5.0); Alkaline Phosphatase 136 U/L (38-126); Anion Gap 9 mmol/L; Blood Urea Nitrogen 14 mg/dL (7-17); Calcium 9.5 mg/dL (8.4-10.2); Carbon Dioxide 23 mmol/L (22-30); Chloride 108 mmol/L (98-107); Glucose 113 mg/dL (74-99); Lipase 103 U/L (23-300); Magnesium 1.8 mg/dL (1.6-2.3); Non-African American GFR(CKD) 87 (>60 ml/min/1.73 sqM); Potassium 3.8 mmol/L (3.5-5.1); Sodium 140 mmol/L (137-145); Total Bilirubin 0.8 mg/dL (0.2-1.3); Total Protein 7.3 g/dL (6.3-8.2)
[2021-11-12 17:34] LABS: INR 0.9 (<1.2)
[2021-11-12] MEDS: HEPARIN SOD,PORK IN 0.45% NACL 25,000 UNIT in 0.45% NACL 1 250ML.BAG IV SCH (17:35)
[2021-11-12] MEDS ORDERED: CALCIUM CARBONATE 500 MG CHEWABLE PO PRN (18:25)
[2021-11-12] MEDS ORDERED: NALOXONE 0.4 MG/ML 1 ML VIAL IV PRN (18:25)
[2021-11-12] MEDS ORDERED: MAG HYDROX/AL HYDROX/SIMETH 30 ML CUP PO PRN (18:25)
[2021-11-12] MEDS ORDERED: ACETAMINOPHEN TAB 325 MG TAB PO PRN (18:25)
[2021-11-12] MEDS ORDERED: ONDANSETRON 4 MG/2 ML VIAL IVP PRN (18:25)
--- NOTE | 2021-11-12 18:32 | P.HPIM ---
History of Present Illness H&P Date: 11/12/21 51-year-old female with past medical history of diabetes hypertension: Artery disease and stents in the past was admitted to the hospital with chest pain started several hours before the admission substernal Review of systems and systems has been reviewed all negative and positive findings as per history of present illness Constitutional: No acute distress, conversant, pleasant Eyes: Anicteric sclerae, moist conjunctiva, no lid-lag PERRLA ENMT: NC/AT Oropharynx clear, no erythema, exudates Neck: Supple, FROM, no masses, or JVD No carotid bruits No thyromegaly Lungs: Clear to auscultation Clear to percussion Normal respiratory effort, no accessory muscle use Cardiovascular: Heart regular in rate and rhythm, No murmurs, gallops, or rubs No peripheral edema Abdominal: Soft Nontender, no guarding, rebound or rigidity Abdomen moving with respiration Normoactive bowel sounds No hepatomegaly, No splenomegaly No palpable mass No abdominal wall hernia noted Skin: Normal temperature, tone, texture, turgor No induration No subcutaneous nodules No rash, lesions No ulcers Extremities: No digital cyanosis No clubbing Pedal pulses intact and symmetrical Radial pulses intact and symmetrical Normal gait and station No calf tenderness Psychiatric:Alert and oriented to person, place and time Appropriate affect Intact judgement Neuro: Muscles Strength 5/5 in all 4 extremities Sensation to light touch grossly present throughout Cranial nerves II-XII grossly intact No focal sensory deficits Chest pain with typical and atypical features we'll observe overnight we'll consult cardiology Diabetes we'll put the patient on sliding scale insulin Hypertension Anxiety Multiple medical problems Past Medical History Past Medical History: Asthma, Coronary Artery Disease (CAD), COPD, Diabetes Mellitus, GERD/Reflux, Myocardial Infarction ([place]), Osteoarthritis (OA) Additional Past Medical History / Comment(s): DDD Last Myocardial Infarction Date:: 2011 History of Any Multi-Drug Resistant Organisms: None Reported Past Surgical History: Coronary Bypass/CABG, Heart Catheterization With Stent Past Anesthesia/Blood Transfusion Reactions: No Reported Reaction Date of Last Stent Placement:: 11/2018 Past Psychological History: Anxiety, Bipolar Smoking Status: Current every day smoker Past Alcohol Use History: Occasional Past Drug Use History: Marijuana Medications and Allergies Home Medications Medication Instructions Recorded Confirmed Type ALPRAZolam [Xanax] 0.5 mg PO TID 07/08/20 12/20/20 History Aspirin EC [Ecotrin Low Dose] 81 mg PO DAILY 07/08/20 12/20/20 History Atorvastatin [Lipitor] 80 mg PO HS 07/08/20 12/20/20 History Clopidogrel [Plavix] 75 mg PO DAILY 07/08/20 12/20/20 History Cyclobenzaprine [Flexeril] 10 mg PO TID 07/08/20 12/20/20 History Escitalopram [Lexapro] 20 mg PO DAILY 07/08/20 12/20/20 History Hydrocodone/Acetaminophen [[place] 1 tab PO Q4-6H PRN 07/08/20 12/20/20 History 10-325] Metoprolol Tartrate [Lopressor] 50 mg PO BID 07/08/20 12/20/20 History Omeprazole 40 mg PO BID 07/08/20 12/20/20 History Pregabalin [Lyrica] 75 mg PO BID 07/08/20 12/20/20 History Ranolazine [Ranolazine ER] 1,000 mg PO BID 07/08/20 12/20/20 History amLODIPine [Norvasc] 10 mg PO DAILY 07/08/20 12/20/20 History Isosorbide Dinitrate 30 mg PO BID 07/09/20 12/20/20 History Albuterol Nebulized [Ventolin 2.5 mg INHALATION RT-Q6H PRN 12/20/20 12/20/20 History Nebulized] Albuterol Sulfate [Proair Hfa] 1 - 2 puff INHALATION RT-Q6H PRN 12/20/20 12/20/20 History Budesonide/Formoterol Fumarate 2 puff INHALATION RT-BID 12/20/20 12/20/20 History [Symbicort 160-4.5 Mcg Inhaler] levETIRAcetam [Keppra] 500 mg PO Q12HR 12/20/20 12/20/20 History metFORMIN HCL [Glucophage] 1,000 mg PO BID 12/20/20 12/20/20 History rOPINIRole HCL [Requip] 0.25 mg PO HS 12/20/20 12/20/20 History Allergies Allergy/AdvReac Type Severity Reaction Status Date / Time No Known Allergies Allergy Verified 11/12/21 17:23 Physical Exam Vitals: Vital Signs Temp Pulse Resp BP Pulse Ox 11/12/21 18:04 54 L 18 150/81 98 11/12/21 17:13 98.6 F 62 18 162/91 92 L Intake and Output 11/12/21 11/12/21 11/12/21 06:59 14:59 22:59 Other: Weight 90.718 kg Results CBC & Chem 7: 11/12/21 17:09 11/12/21 17:09 Labs: Abnormal Lab Results - Last 24 Hours (Table) 11/12/21 11/12/21 11/12/21 Range/Units 17:09 17:09 17:09 RDW 17.0 H (11.5-15.5) % D-Dimer 0.75 H (<0.60) mg/L FEU Chloride 108 H (98-107) mmol/L Glucose 113 H (74-99) mg/dL Alkaline Phosphatase 136 H (38-126) U/L
--- NOTE | 2021-11-12 18:48 | XR ---
EXAMINATION TYPE: XR chest 2V DATE OF EXAM: 11/12/2021 COMPARISON: 04/03/2021 HISTORY: Seizure TECHNIQUE: 2 views FINDINGS: There is no heart failure nor confluent pneumonic infiltrate. There are sternal wires. Cost ophrenic angles are clear. There are chest leads. Bony thorax is intact. IMPRESSION: No active cardiopulmonary disease. Normal heart. No change.
[2021-11-12] MEDS ORDERED: ONDANSETRON 4 MG/2 ML VIAL IVP STA (19:21)
[2021-11-12] MEDS ORDERED: levETIRAcetam 500 MG TAB PO SCH (21:00)
[2021-11-12] MEDS ORDERED: RANOLAZINE 1000 MG PO SCH (21:00)
[2021-11-12] MEDS ORDERED: ISOSORBIDE DINITRATE 30 MG PO SCH (21:00)
[2021-11-12] MEDS ORDERED: CYCLOBENZAPRINE 10 MG TAB PO SCH (22:00)
[2021-11-12] MEDS: INSULIN ASPART (NovoLOG) 100 UNIT/ML VIAL SQ SCH (23:23)
[2021-11-12 23:24] LABS: Glucose,Whole Blood 132 mg/dL (75-99)
[2021-11-12] MEDS: METOPROLOL TARTRATE 50 MG TAB PO SCH (23:26)
[2021-11-12] MEDS: HYDROmorphone 1 MG/ML 1 ML SYRINGE IVP PRN (23:26)
[2021-11-12] MEDS: PANTOPRAZOLE 40 MG TABLET PO SCH (23:26)
[2021-11-12] MEDS: ATORVASTATIN 80 MG TAB PO SCH (23:26)
[2021-11-13] MEDS: HYDROmorphone 1 MG/ML 1 ML SYRINGE IVP PRN ×5 (02:52→20:26)
[2021-11-13 06:10] LABS: Glucose,Whole Blood 124 mg/dL (75-99)
[2021-11-13] MEDS: INSULIN ASPART (NovoLOG) 100 UNIT/ML VIAL SQ SCH ×4 (06:14→20:25)
[2021-11-13 06:52] LABS: Anisocytosis Slight; Basophils # (A) 0.1 k/uL (0-0.2); Basophils % (A) 1 %; Eosinophils # (A) 0.2 k/uL (0-0.7); Eosinophils % (A) 3 %; HCT 40.4 % (34.0-46.0); HGB 12.6 gm/dL (11.4-16.0); Hypochromasia Marked; Lymphocytes # (A) 1.5 k/uL (1.0-4.8); Lymphocytes % (A) 21 %; MCHC 31.2 g/dL (31.0-37.0); MCV 83.3 fL (80.0-100.0); Mean Platelet Volume 7.7; Monocytes # (A) 0.6 k/uL (0-1.0); Monocytes % (A) 8 %; Neutrophils # (A) 4.6 k/uL (1.3-7.7); Neutrophils % (A) 65 %; Platelet Count 338 k/uL (150-450); RBC 4.85 m/uL (3.80-5.40); RDW 17.1 % (11.5-15.5); WBC 7.1 k/uL (3.8-10.6)
[2021-11-13 07:30] LABS: ALT 19 U/L (4-34); AST 29 U/L (14-36); African American GFR (CKD) >90 (>60 ml/min/1.73 sqM); Albumin 4.3 g/dL (3.5-5.0); Alkaline Phosphatase 151 U/L (38-126); Anion Gap 7 mmol/L; Blood Urea Nitrogen 14 mg/dL (7-17); Calcium 9.6 mg/dL (8.4-10.2); Carbon Dioxide 23 mmol/L (22-30); Chloride 106 mmol/L (98-107); Glucose 128 mg/dL (74-99); Non-African American GFR(CKD) 80 (>60 ml/min/1.73 sqM); Potassium 4.4 mmol/L (3.5-5.1); Sodium 136 mmol/L (137-145); Total Protein 7.2 g/dL (6.3-8.2)
[2021-11-13] MEDS: ESCITALOPRAM 20 MG TAB PO SCH (08:49)
[2021-11-13] MEDS: CLOPIDOGREL 75 MG TAB PO SCH (08:49)
[2021-11-13] MEDS: METOPROLOL TARTRATE 50 MG TAB PO SCH ×2 (08:49→20:25)
[2021-11-13] MEDS: ASPIRIN 81 MG PO SCH (08:49)
[2021-11-13] MEDS: PANTOPRAZOLE 40 MG TABLET PO SCH ×2 (08:50→20:25)
[2021-11-13] MEDS ORDERED: ASPIRIN 325 MG TAB PO SCH (09:00)
--- NOTE | 2021-11-13 11:01 | P.CRDCN ---
History of Present Illness Consult date: 11/13/21 Consult reason: chest pain History of present illness: HISTORY OF PRESENT ILLNESS: This is a 51-year old female with a past medical history significant for coronary artery disease with previous stent and CABG in 2009 at [facility], COPD, GERD, and Type 2 diabetes mellitus. Patient reports history of 2 CVAs, and 4 MIs and CABG x 2 and also reports having 7 stents with the last one being placed in 2018. Patient followed in the past with a Dr. Sierra in [facility] but states that she is no longer following with his cardiol ogist and has not seen a [facility] for greater than 1 year. Patient presented to the hospital due to left shoulder and back pain. She denies having any shortness of breath. She complains of vomiting. She also complains of tenderness on the upper back area and pain with movement. She denies chest pain with deep breathing. This started at 3 PM yesterday and has been coming and going until it stayed for 2 hour. Patient states that Dilaudid helped her pain. EKG sinus bradycardia Chest x-ray reveals no active cardiopulmonary disease. Troponin was negative on 3 draws. Alkaline phosphatase 136. Chronic virus PCR not detected. Creatinine 0.78. Patient is a active tobacco use or cut down to 5 cigarettes per day. Denies alcohol and illicit drug use. Echocardiogram from 06/2020: EF 55-60%, mild tricuspid regurgitation. REVIEW OF SYSTEMS: At the time of my exam: CONSTITUTIONAL: Denies fever or chills. HEENT: Denies blurred vision, vision changes, or eye pain. Denies hemoptysis CARDIOVASCULAR: +chest pain/left upper back pain, Denies orthopnea, PND or palpitations RESPIRATORY: No shortness of breath. GASTROINTESTINAL: Denies abdominal pain. +nausea reports vomiting. HEMATOLOGIC: Denies bleeding disorders. GENITOURINARY: Denies any blood in urine. SKIN: Denies pruitis. Denies rash. PHYSICAL EXAM: VITAL SIGNS: Afebrile, heart rate in the 50s and 60s, blood pressure 124/81, pulse ox 94% on room air GENERAL: Well-developed in no acute distress. HEENT: Head is normocephalic. Pupils are equal, round. Sclerae anicteric. Mucous membranes of the mouth are moist. Neck supple. No JVD or thyromegaly LUNGS: Respirations even and unlabored. Lungs essentially clear to auscultation bilaterally. HEART: Regular rate and rhythm. S1 and S2 heard. ABDOMEN: Soft. Nondistended. Nontender. EXTREMITIES: Normal range of motion. No clubbing or cyanosis. Peripheral pulses intact. No lower extremity edema NEUROLOGIC: Awake and alert. Oriented x 3. ASSESSMENT: Chest pain, atypical - acute coronary event has been ruled out. COPD History of coronary artery disease with previous CABG in 2008 and multiple stent placements (most recent in 2017) Diabetes mellitus, type II Hypertension Nicotine dependence History of substance abuse PLAN: Patient has been resumed on home medications which will be continued, no new medications ordered Obtain 2-D echocardiogram and Doppler study to assess cardiac structure and function. Further recommendations to follow. Nurse practitioner note has been reviewed by physician. Signing provider agrees with the documented findings, assessment, and plan of care. Past Medical History Past Medical History: Asthma, Coronary Artery Disease (CAD), COPD, Diabetes Mellitus, GERD/Reflux, Myocardial Infarction ([place]), Osteoarthritis (OA) Additional Past Medical History / Comment(s): DDD Last Myocardial Infarction Date:: 2011 History of Any Multi-Drug Resistant Organisms: None Reported Past Surgical History: Coronary Bypass/CABG, Heart Catheterization With Stent Additional Past Surgical History / Comment(s): seven stents Past Anesthesia/Blood Transfusion Reactions: No Reported Reaction Date of Last Stent Placement:: 11/2018 Past Psychological History: Anxiety, Bipolar Smoking Status: Current every day smoker Past Alcohol Use History: Occasional Past Drug Use History: Marijuana Medications and Allergies Home Medications Medication Instructions Recorded Confirmed Type ALPRAZolam [Xanax] 0.5 mg PO TID 07/08/20 11/12/21 History Aspirin EC [Ecotrin Low Dose] 81 mg PO DAILY 07/08/20 11/12/21 History Atorvastatin [Lipitor] 80 mg PO HS 07/08/20 11/12/21 History Clopidogrel [Plavix] 75 mg PO DAILY 07/08/20 11/12/21 History Escitalopram [Lexapro] 20 mg PO DAILY 07/08/20 11/12/21 History Hydrocodone/Acetaminophen [[place] 1 tab PO TID 07/08/20 11/12/21 History 10-325] Metoprolol Tartrate [Lopressor] 50 mg PO BID 07/08/20 11/12/21 History Omeprazole 40 mg PO BID 07/08/20 11/12/21 History amLODIPine [Norvasc] 10 mg PO DAILY 07/08/20 11/12/21 History Albuterol Sulfate [Proair Hfa] 2 puff INHALATION RT-TID 12/20/20 11/12/21 History metFORMIN HCL [Glucophage] 1,000 mg PO BID 12/20/20 11/12/21 History Abilify 5mg(Unknown) 1 tab PO DAILY 11/12/21 11/12/21 History Butalb/Acetaminophen/Caffeine 1 tab PO DAILY 11/12/21 11/12/21 History [Fioricet 50-325-40] Isosorbide(Unknown) 1 tab PO DIRECTED 11/12/21 11/12/21 History Nitroglycerin Sl Tabs [Nitrostat] 0.4 mg SL Q5M PRN 11/12/21 11/12/21 History Pregabalin [Lyrica] 150 mg PO BID 11/12/21 11/12/21 History Ranexa Er 1000mg(Unknown) 1 tab PO DIRECTED 11/12/21 11/12/21 History Tiotropium 2.5 Mcg/Puff [Spiriva 1 puff INHALATION RT-BID 11/12/21 11/12/21 History Respimat 2.5 Mcg] diphenhydrAMINE [Benadryl] 25 mg PO BID 11/12/21 11/12/21 History rOPINIRole HCL [Requip] 1 mg PO HS 11/12/21 11/12/21 History Allergies Allergy/AdvReac Type Severity Reaction Status Date / Time No Known Allergies Allergy Verified 11/12/21 17:23 Physical Exam Vitals: Vital Signs Temp Pulse Pulse Resp BP BP Pulse Ox 11/13/21 08:00 98.5 F 59 L 17 124/81 94 L 11/13/21 04:00 66 16 128/81 91 L 11/12/21 23:30 98.1 F 75 18 120/78 95 11/12/21 19:37 54 L 18 152/86 94 L 11/12/21 18:04 54 L 18 150/81 98 11/12/21 17:13 98.6 F 62 18 162/91 92 L Intake and Output 11/12/21 11/13/21 11/13/21 22:59 06:59 14:59 Intake Total 548.667 Balance 548.667 Intake: Intake, IV Titration 63.667 Amount Heparin Sod,Pork in 0.45% 63.667 NaCl 25,000 unit In 0.45 % NaCl 1 250ml.bag @ 11. 023 UNITS/KG/HR 10 mls/hr IV .Q24H [facility] Rx#: [id number] Oral 485 Other: Voiding Method Toilet # Voids 1 Weight 90.718 kg 90.718 kg Results 11/13/21 06:26 11/13/21 06:26 Cardiac Enzymes 11/12/21 11/12/21 11/12/21 Range/Units 17:09 17:09 20:36 AST 23 (14-36) U/L Troponin I <0.012 <0.012 (0.000-0.034) ng/mL 11/12/21 11/13/21 Range/Units 23:14 06:26 AST 29 (14-36) U/L Troponin I <0.012 (0.000-0.034) ng/mL Coagulation 11/12/21 11/12/21 11/13/21 Range/Units 17:09 23:14 06:26 PT 10.0 (9.0-12.0) sec APTT 23.0 67.0 H 49.3 H (22.0-30.0) sec CBC 11/12/21 11/13/21 Range/Units 17:09 06:26 WBC 9.2 7.1 (3.8-10.6) k/uL RBC 4.90 4.85 (3.80-5.40) m/uL Hgb 12.9 12.6 (11.4-16.0) gm/dL Hct 40.4 40.4 (34.0-46.0) % Plt Count 382 338 (150-450) k/uL Comprehensive Metabolic Panel 11/12/21 11/13/21 Range/Units 17:09 06:26 Sodium 140 136 L (137-145) mmol/L Potassium 3.8 4.4 (3.5-5.1) mmol/L Chloride 108 H 106 (98-107) mmol/L Carbon Dioxide 23 23 (22-30) mmol/L BUN 14 14 (7-17) mg/dL Creatinine 0.78 0.84 (0.52-1.04) mg/dL Glucose 113 H 128 H (74-99) mg/dL Calcium 9.5 9.6 (8.4-10.2) mg/dL AST 23 29 (14-36) U/L ALT 17 19 (4-34) U/L Alkaline Phosphatase 136 H 151 H (38-126) U/L Total Protein 7.3 7.2 (6.3-8.2) g/dL Albumin 4.4 4.3 (3.5-5.0) g/dL Current Medications Generic Name Dose Route Start Last Admin Trade Name Freq PRN Reason Stop Dose Admin Acetaminophen 650 mg 11/12/21 18:25 Acetaminophen Tab 325 Mg Tab PO Q6HR PRN Mild Pain or Fever > 100.5 Hydrocodone Bitart/Acetaminophen 1 each 11/12/21 18:28 Hydrocodone/Apap 10-325mg 1 Each Tab PO Q6H PRN Pain Al Hydroxide/Mg Hydroxide 15 ml 11/12/21 18:25 Mag Hydrox/Al Hydrox/Simeth 30 Ml Cup PO Q6HR PRN Indigestion Alprazolam 0.5 mg 11/12/21 18:28 Alprazolam 0.5 Mg Tab PO TID PRN Anxiety Aspirin 81 mg 11/13/21 09:00 11/13/21 08:49 Aspirin 81 Mg PO 81 mg DAILY [facility] Administration Atorvastatin Calcium 80 mg 11/12/21 21:00 11/12/21 23:26 Atorvastatin 80 Mg Tab PO 80 mg HS [facility] Administration Calcium Carbonate/Glycine 1,000 mg 11/12/21 18:25 Calcium Carbonate 500 Mg Chewable PO Q4HR PRN Dyspepsia Clopidogrel Bisulfate 75 mg 11/13/21 09:00 11/13/21 08:49 Clopidogrel 75 Mg Tab PO 75 mg DAILY [facility] Administration Escitalopram Oxalate 20 mg 11/13/21 09:00 11/13/21 08:49 Escitalopram 20 Mg Tab PO 20 mg DAILY [facility] Administration Hydromorphone HCl 1 mg 11/12/21 18:25 11/13/21 08:48 Hydromorphone 1 Mg/Ml 1 Ml Syringe IVP 1 mg Q3HR PRN Administration Severe Pain Heparin Sodium/Sodium Chloride 250 mls @ 10 mls/hr 11/12/21 17:15 11/12/21 23:57 25,000 unit/ Sodium Chloride IV 9.023 units/kg/hr .Q24H [facility] 8.185 mls/hr Titration Protocol 11.023 UNITS/KG/HR Insulin Aspart 0 unit 11/12/21 21:00 11/13/21 06:14 Insulin Aspart (Novolog) 100 Unit/Ml Vial SQ Not Given ACHS [facility] Protocol Metoprolol Tartrate 50 mg 11/12/21 21:00 11/13/21 08:49 Metoprolol Tartrate 50 Mg Tab PO 50 mg BID [facility] Administration Naloxone HCl 0.2 mg 11/12/21 18:25 Naloxone 0.4 Mg/Ml 1 Ml Vial IV Q2M PRN Opioid Reversal Ondansetron HCl 4 mg 11/12/21 18:25 Ondansetron 4 Mg/2 Ml Vial IVP Q8HR PRN Nausea And Vomiting Pantoprazole Sodium 40 mg 11/12/21 21:00 11/13/21 08:50 Pantoprazole 40 Mg Tablet PO 40 mg BID [facility] Administration Intake and Output 11/12/21 11/13/21 11/13/21 22:59 06:59 14:59 Intake Total 548.667 Balance 548.667 Intake: Intake, IV Titration 63.667 Amount Heparin Sod,Pork in 0.45% 63.667 NaCl 25,000 unit In 0.45 % NaCl 1 250ml.bag @ 11. 023 UNITS/KG/HR 10 mls/hr IV .Q24H [facility] Rx#: [id number] Oral 485 Other: Voiding Method Toilet # Voids 1 Weight 90.718 kg 90.718 kg 11/13/21 06:26 11/13/21 06:26
[2021-11-13 12:17] LABS: Glucose,Whole Blood 102 mg/dL (75-99)
[2021-11-13] MEDS: HYDROcodone/APAP 10-325MG 1 EACH TAB PO PRN ×3 (12:17→23:05)
--- NOTE | 2021-11-13 13:19 | P.PN ---
Subjective Progress Note Date: 11/13/21 Patient continues to have chest pain radiating to the left shoulder 51-year-old female with past medical history of diabetes hypertension: Artery disease and stents in the past was admitted to the hospital with chest pain started several hours before the admission substernal Review of systems and systems has been reviewed all negative and positive findings as per history of present illness Constitutional: No acute distress, conversant, pleasant Eyes: Anicteric sclerae, moist conjunctiva, no lid-lag PERRLA ENMT: NC/AT Oropharynx clear, no erythema, exudates Neck: Supple, FROM, no masses, or JVD No carotid bruits No thyromegaly Lungs: Clear to auscultation Clear to percussion Normal respiratory effort, no accessory muscle use Cardiovascular: Heart regular in rate and rhythm, No murmurs, gallops, or rubs No peripheral edema Abdominal: Soft Nontender, no guarding, rebound or rigidity Abdomen moving with respiration Normoactive bowel sounds No hepatomegaly, No splenomegaly No palpable mass No abdominal wall hernia noted Skin: Normal temperature, tone, texture, turgor No induration No subcutaneous nodules No rash, lesions No ulcers Extremities: No digital cyanosis No clubbing Pedal pulses intact and symmetrical Radial pulses intact and symmetrical Normal gait and station No calf tenderness Psychiatric:Alert and oriented to person, place and time Appropriate affect Intact judgement Neuro: Muscles Strength 5/5 in all 4 extremities Sensation to light touch grossly present throughout Cranial nerves II-XII grossly intact No focal sensory deficits Echocardiogram has been ordered we'll continue to monitor Chest pain with typical and atypical features we'll observe overnight we'll consult cardiology Diabetes we'll put the patient on sliding scale insulin Hypertension Anxiety Multiple medical problems Objective - Vital Signs Vital signs: Vital Signs Temp 98.4 F 11/13/21 12:00 Pulse 74 11/13/21 12:00 Resp 17 11/13/21 12:00 BP 126/71 11/13/21 12:00 Pulse Ox 95 11/13/21 12:00 Intake & Output 11/12/21 11/13/21 11/13/21 18:59 06:59 18:59 Intake Total 548.667 Balance 548.667 Weight 90.718 kg 90.718 kg Intake: Intake, IV Titration 63.667 Amount Heparin Sod,Pork in 0.45% 63.667 NaCl 25,000 unit In 0.45 % NaCl 1 250ml.bag @ 11. 023 UNITS/KG/HR 10 mls/hr IV .Q24H [facility] Rx#: [id number] Oral 485 Other: Voiding Method Toilet Toilet # Voids 1 - Labs CBC & Chem 7: 11/13/21 06:26 11/13/21 06:26 Labs: Abnormal Lab Results - Last 24 Hours (Table) 11/12/21 11/12/21 11/12/21 Range/Units 17:09 17:09 17:09 RDW 17.0 H (11.5-15.5) % APTT (22.0-30.0) sec D-Dimer 0.75 H (<0.60) mg/L FEU Sodium (137-145) mmol/L Chloride 108 H (98-107) mmol/L Glucose 113 H (74-99) mg/dL POC Glucose (mg/dL) (75-99) mg/dL Alkaline Phosphatase 136 H (38-126) U/L 11/12/21 11/12/21 11/13/21 Range/Units 23:14 23:22 06:07 RDW (11.5-15.5) % APTT 67.0 H (22.0-30.0) sec D-Dimer (<0.60) mg/L FEU Sodium (137-145) mmol/L Chloride (98-107) mmol/L Glucose (74-99) mg/dL POC Glucose (mg/dL) 132 H 124 H (75-99) mg/dL Alkaline Phosphatase (38-126) U/L 11/13/21 11/13/21 11/13/21 Range/Units 06:26 06:26 06:26 RDW 17.1 H (11.5-15.5) % APTT 49.3 H (22.0-30.0) sec D-Dimer (<0.60) mg/L FEU Sodium 136 L (137-145) mmol/L Chloride (98-107) mmol/L Glucose 128 H (74-99) mg/dL POC Glucose (mg/dL) (75-99) mg/dL Alkaline Phosphatase 151 H (38-126) U/L 11/13/21 Range/Units 11:57 RDW (11.5-15.5) % APTT (22.0-30.0) sec D-Dimer (<0.60) mg/L FEU Sodium (137-145) mmol/L Chloride (98-107) mmol/L Glucose (74-99) mg/dL POC Glucose (mg/dL) 102 H (75-99) mg/dL Alkaline Phosphatase (38-126) U/L
--- NOTE | 2021-11-13 16:08 | ECHOF ---
Referral Reason:LVF MEASUREMENTS -------- HEIGHT: 165.1 cm WEIGHT: 90.7 kg BP: RVIDd: 2.8 cm (< 3.3) IVSd: 1.0 cm (0.6 - 1.1) LVIDd: 5.2 cm (3.9 - 5.3) LVPWd: 1.1 cm (0.6 - 1.1) IVSs: 1.2 cm LVIDs: 3.7 cm LVPWs: 1.4 cm LA Diam: 3.5 cm (2.7 - 3.8) Ao Diam: 3.0 cm (2.0 - 3.7) MV EXCURSION: 16.000 mm (> 18.000) MV EF SLOPE: 58 mm/s (70 - 150) EPSS: 2.1 cm MV E Oziel: 0.86 m/s MV DecT: 211 ms MV A Oziel: 0.57 m/s MV E/A Ratio: 1.50 RAP: 5.00 mmHg RVSP: 12.23 mmHg FINDINGS -------- Sinus rhythm. This was a techncally difficult study with suboptimal views, , Lumason utilized for enhancement of im ages. LV size, wall thickness and systolic function are normal, with an EF greater than 55%. The left arlyn tricular size is normal. The right ventricle is normal in size. The left atrial size is normal. The right atrial size is normal. The aortic valve was not well visualized. Mild mitral regurgitation is present. Mild tricuspid regurgitation present. Right ventricular systolic pressure is normal at < 35 mmHg. The pulmonic valve was not well visualized. The aortic root size is normal. There is no pericardial effusion. CONCLUSIONS -------- 1. This was a techncally difficult study with suboptimal views, , Lumason utilized for enhancement of images. 2. LV size, wall thickness and systolic function are normal, with an EF greater than 55%. 3. The left ventricular size is normal. 4. The right ventricle is normal in size. 5. The left atrial size is normal. 6. The right atrial size is normal. 7. The aortic valve was not well visualized. 8. Mild mitral regurgitation is present. 9. Mild tricuspid regurgitation present. 10. The pulmonic valve was not well visualized. 11. The aortic root size is normal. 12. There is no pericardial effusion. FUNCTIONAL CONSULTANT: Manda Watkins RDCS
[2021-11-13 16:37] LABS: Glucose,Whole Blood 106 mg/dL (75-99)
[2021-11-13] MEDS: HEPARIN SOD,PORK IN 0.45% NACL 25,000 UNIT in 0.45% NACL 1 250ML.BAG IV SCH (17:22)
[2021-11-13 19:57] LABS: Glucose,Whole Blood 141 mg/dL (75-99)
[2021-11-13] MEDS: ATORVASTATIN 80 MG TAB PO SCH (20:25)
[2021-11-14] MEDS: HYDROmorphone 1 MG/ML 1 ML SYRINGE IVP PRN ×5 (00:57→22:05)
[2021-11-14] MEDS: HYDROcodone/APAP 10-325MG 1 EACH TAB PO PRN ×3 (05:02→17:23)
[2021-11-14 06:05] LABS: Glucose,Whole Blood 127 mg/dL (75-99)
[2021-11-14] MEDS: INSULIN ASPART (NovoLOG) 100 UNIT/ML VIAL SQ SCH ×4 (06:13→21:17)
[2021-11-14 09:14] LABS: Chol/HDL Ratio 4.21 Ratio; LDL Cholesterol,Calculated 118.4 mg/dL (0.0-131.0)
[2021-11-14] MEDS ORDERED: AMINOPHYLLINE 500 MG/20 ML VIAL IV PRN (09:16)
[2021-11-14] MEDS: METOPROLOL TARTRATE 50 MG TAB PO SCH ×2 (09:18→21:18)
[2021-11-14] MEDS: CLOPIDOGREL 75 MG TAB PO SCH (09:18)
[2021-11-14] MEDS: PANTOPRAZOLE 40 MG TABLET PO SCH ×2 (09:18→21:18)
[2021-11-14] MEDS: ASPIRIN 81 MG PO SCH (09:18)
[2021-11-14] MEDS: ESCITALOPRAM 20 MG TAB PO SCH (09:18)
[2021-11-14 09:29] LABS: Albumin 4.5 g/dL (3.5-5.0); Calcium 10.2 mg/dL (8.4-10.2); Potassium 4.6 mmol/L (3.5-5.1); Total Bilirubin 0.7 mg/dL (0.2-1.3); Total Protein 7.3 g/dL (6.3-8.2)
[2021-11-14 09:48] LABS: Anisocytosis Slight; Basophils # (A) 0.1 k/uL (0-0.2); Basophils % (A) 1 %; Eosinophils # (A) 0.2 k/uL (0-0.7); Eosinophils % (A) 3 %; HGB 13.8 gm/dL (11.4-16.0); Hypochromasia Marked; Lymphocytes # (A) 3.2 k/uL (1.0-4.8); Lymphocytes % (A) 42 %; MCH 26.8 pg (25.0-35.0); MCHC 31.4 g/dL (31.0-37.0); MCV 85.3 fL (80.0-100.0); Mean Platelet Volume 8.1; Monocytes # (A) 0.8 k/uL (0-1.0); Monocytes % (A) 11 %; Neutrophils % (A) 39 %; Platelet Count 315 k/uL (150-450); RBC 5.16 m/uL (3.80-5.40); RDW 16.8 % (11.5-15.5); WBC 7.6 k/uL (3.8-10.6)
--- NOTE | 2021-11-14 11:39 | P.PN ---
Subjective Progress Note Date: 11/14/21 HISTORY OF PRESENT ILLNESS: This is a 51-year old female with a past medical history significant for cor onary artery disease with previous stent and CABG in 2009 at [facility], COPD, GERD, and Type 2 diabetes mellitus. Patient reports history of 2 CVAs, and 4 MIs and CABG x 2 and also reports having 7 stents with the last one being placed in 2018. Patient followed in the past with a Dr. Sierra in [facility] but states that she is no longer following with his tobacco conditioner and has not seen a tobacco conditioner for greater than 1 year. Patient presented to the hospital due to left shoulder and back pain. She denies having any shortness of breath. She complains of vomiting. She also complains of tenderness on the upper back area and pain with movement. She denies chest pain with deep breathing. This started at 3 PM yesterday and has been coming and going until it stayed for 2 hour. Patient states that Dilaudid helped her pain. EKG sinus bradycardia Chest x-ray reveals no active cardiopulmonary disease. Troponin was negative on 3 draws. Alkaline phosphatase 136. Chronic virus PCR not detected. Creatinine 0.78. Patient is a active tobacco use or cut down to 5 cigarettes per day. Denies alcohol and illicit drug use. Echocardiogram from 06/2020: EF 55-60%, mild tricuspid regurgitation. 11/14: Patient says she continues to have chest pain. Echocardiogram reveals EF of 55%, mild mitral regurgitation, mild tricuspid regurgitation. Discussed options with patient and she is agreeable for Lexiscan stress test tomorrow. PHYSICAL EXAM: VITAL SIGNS: Afebrile, heart rate in the 60s80s, blood pressure 123/84, pulse ox 96% on room air GENERAL: Well-developed in no acute distress. HEENT: Head is normocephalic. Pupils are equal, round. Sclerae anicteric. Mucous membranes of the mouth are moist. Neck supple. No JVD LUNGS: Respirations even and unlabored. Lungs essentially clear to auscultation bilaterally. HEART: Regular rate and rhythm. S1 and S2 heard. ABDOMEN: Soft. Nondistended. Nontender. EXTREMITIES: Normal range of motion. No clubbing or cyanosis. Peripheral pulses intact. No lower extremity edema NEUROLOGIC: Awake and alert. Oriented x 3. ASSESSMENT: Chest pain, atypical - acute coronary event has been ruled out. COPD History of coronary artery disease with previous CABG in 2009 and multiple stent placements (most recent in 2018) Diabetes mellitus, type II Hypertension Nicotine dependence History of substance abuse PLAN: Patient has been resumed on home medications which will be continued, no new medications ordered Patient will be scheduled for Lexiscan stress test tomorrow Further recommendations to follow. Nurse practitioner note has been reviewed by physician. Signing provider agrees with the documented findings, assessment, and plan of care. Objective - Vital Signs Vital signs: Vital Signs Temp 98.5 F 11/14/21 08:00 Pulse 82 11/14/21 08:00 Resp 17 11/14/21 08:00 BP 123/84 11/14/21 08:00 Pulse Ox 96 11/14/21 08:00 Intake & Output 11/13/21 11/14/21 11/14/21 18:59 06:59 18:59 Intake Total 142.555 970 0 Balance 142.555 970 0 Intake: Intake, IV Titration 142.555 Amount Heparin Sod,Pork in 0.45% 142.555 NaCl 25,000 unit In 0.45 % NaCl 1 250ml.bag @ 11. 023 UNITS/KG/HR 10 mls/hr IV .Q24H [facility] Rx#: [id number] Oral 970 0 Other: Voiding Method Toilet Toilet Toilet # Voids 3 1 - Labs CBC & Chem 7: 11/14/21 08:38 11/14/21 08:38 Labs: Abnormal Lab Results - Last 24 Hours (Table) 11/13/21 11/13/21 11/13/21 Range/Units 06:26 11:57 16:33 POC Glucose (mg/dL) 102 H 106 H (75-99) mg/dL Triglycerides 163.00 H (0.00-149.00) mg/dL 11/13/21 11/14/21 Range/Units 19:55 06:03 POC Glucose (mg/dL) 141 H 127 H (75-99) mg/dL Triglycerides (0.00-149.00) mg/dL
--- NOTE | 2021-11-14 12:13 | P.PN ---
Subjective Progress Note Date: 11/14/21 Principal diagnosis: patient continues to have chest pain radiating to the left shoulder 51-year-old female with past medical history of diabetes hypertension: Artery disease and stents in the past was admitted to the hospital with chest pain started several hours before the admission substernal Review of systems and systems has been reviewed all negative and positive findings as per history of present illness Constitutional: No acute distress, conversant, pleasant Eyes: Anicteric sclerae, moist conjunctiva, no lid-lag PERRLA ENMT: NC/AT Oropharynx clear, no erythema, exudates Neck: Supple, FROM, no masses, or JVD No carotid bruits No thyromegaly Lungs: Clear to auscultation Clear to percussion Normal respiratory effort, no accessory muscle use Cardiovascular: Heart regular in rate and rhythm, No murmurs, gallops, or rubs No peripheral edema Abdominal: Soft Nontender, no guarding, rebound or rigidity Abdomen moving with respiration Normoactive bowel sounds No hepatomegaly, No splenomegaly No palpable mass No abdominal wall hernia noted Skin: Normal temperature, tone, texture, turgor No induration No subcutaneous nodules No rash, lesions No ulcers Extremities: No digital cyanosis No clubbing Pedal pulses intact and symmetrical Radial pulses intact and symmetrical Normal gait and station No calf tenderness Psychiatric:Alert and oriented to person, place and time Appropriate affect Intact judgement Neuro: Muscles Strength 5/5 in all 4 extremities Sensation to light touch grossly present throughout Cranial nerves II-XII grossly intact No focal sensory deficits Echocardiogram has been ordered we'll continue to monitor Chest pain with typical and atypical features we'll observe overnight we'll consult cardiology Diabetes we'll put the patient on sliding scale insulin Hypertension Anxiety Multiple medical problems Patient scheduled to have a stress test in a.m. Objective - Vital Signs Vital signs: Vital Signs Temp 98.5 F 11/14/21 08:00 Pulse 82 11/14/21 08:00 Resp 17 11/14/21 08:00 BP 123/84 11/14/21 08:00 Pulse Ox 96 11/14/21 08:00 Intake & Output 11/13/21 11/14/21 11/14/21 18:59 06:59 18:59 Intake Total 142.555 970 0 Balance 142.555 970 0 Intake: Intake, IV Titration 142.555 Amount Heparin Sod,Pork in 0.45% 142.555 NaCl 25,000 unit In 0.45 % NaCl 1 250ml.bag @ 11. 023 UNITS/KG/HR 10 mls/hr IV .Q24H [facility] Rx#: [id number] Oral 970 0 Other: Voiding Method Toilet Toilet Toilet # Voids 3 1 - Labs CBC & Chem 7: 11/14/21 08:38 11/14/21 08:38 Labs: Abnormal Lab Results - Last 24 Hours (Table) 11/13/21 11/13/21 11/13/21 Range/Units 06:26 11:57 16:33 RDW (11.5-15.5) % Glucose (74-99) mg/dL POC Glucose (mg/dL) 102 H 106 H (75-99) mg/dL Alkaline Phosphatase (38-126) U/L Triglycerides 163.00 H (0.00-149.00) mg/dL 11/13/21 11/14/21 11/14/21 Range/Units 19:55 06:03 08:38 RDW 16.8 H (11.5-15.5) % Glucose (74-99) mg/dL POC Glucose (mg/dL) 141 H 127 H (75-99) mg/dL Alkaline Phosphatase (38-126) U/L Triglycerides (0.00-149.00) mg/dL 11/14/21 Range/Units 08:38 RDW (11.5-15.5) % Glucose 115 H (74-99) mg/dL POC Glucose (mg/dL) (75-99) mg/dL Alkaline Phosphatase 145 H (38-126) U/L Triglycerides (0.00-149.00) mg/dL
[2021-11-14 12:26] LABS: Glucose,Whole Blood 132 mg/dL (75-99)
[2021-11-14 17:10] LABS: Glucose,Whole Blood 113 mg/dL (75-99)
[2021-11-14 20:32] LABS: Glucose,Whole Blood 155 mg/dL (75-99)
[2021-11-14] MEDS: ALPRAZolam 0.5 MG TAB PO PRN (21:18)
[2021-11-14] MEDS: ATORVASTATIN 80 MG TAB PO SCH (21:18)
[2021-11-14] MEDS: HEPARIN SOD,PORK IN 0.45% NACL 25,000 UNIT in 0.45% NACL 1 250ML.BAG IV SCH (21:21)
[2021-11-15] MEDS: HYDROmorphone 1 MG/ML 1 ML SYRINGE IVP PRN ×7 (01:07→23:53)
[2021-11-15 06:16] LABS: Glucose,Whole Blood 114 mg/dL (75-99)
[2021-11-15] MEDS: INSULIN ASPART (NovoLOG) 100 UNIT/ML VIAL SQ SCH ×4 (06:46→20:30)
[2021-11-15] MEDS ORDERED: AMINOPHYLLINE 500 MG/20 ML VIAL IV PRN (07:00)
[2021-11-15] MEDS ORDERED: CAFFEINE CITRATE 60 MG/3 ML VIAL IV PRN (07:00)
[2021-11-15] MEDS ORDERED: REGADENOSON 0.4 MG/5 ML SYRINGE IV PRN (07:00)
[2021-11-15] MEDS: ASPIRIN 81 MG PO SCH (08:15)
[2021-11-15] MEDS: CLOPIDOGREL 75 MG TAB PO SCH (08:15)
[2021-11-15] MEDS: ESCITALOPRAM 20 MG TAB PO SCH (08:15)
[2021-11-15] MEDS: PANTOPRAZOLE 40 MG TABLET PO SCH ×2 (08:16→20:01)
[2021-11-15] MEDS: METOPROLOL TARTRATE 50 MG TAB PO SCH ×2 (08:16→20:00)
[2021-11-15 08:27] LABS: Albumin 4.3 g/dL (3.5-5.0); Calcium 9.9 mg/dL (8.4-10.2); Potassium 4.1 mmol/L (3.5-5.1); Total Bilirubin 0.9 mg/dL (0.2-1.3); Total Protein 7.3 g/dL (6.3-8.2)
[2021-11-15 08:36] LABS: Anisocytosis Slight; Basophils # (A) 0.1 k/uL (0-0.2); Basophils % (A) 1 %; Eosinophils # (A) 0.3 k/uL (0-0.7); Eosinophils % (A) 4 %; HCT 41.5 % (34.0-46.0); HGB 13.3 gm/dL (11.4-16.0); Hypochromasia Moderate; Lymphocytes # (A) 3.8 k/uL (1.0-4.8); Lymphocytes % (A) 47 %; MCH 26.6 pg (25.0-35.0); MCV 83.2 fL (80.0-100.0); Monocytes # (A) 0.6 k/uL (0-1.0); Monocytes % (A) 8 %; Neutrophils # (A) 3.1 k/uL (1.3-7.7); Neutrophils % (A) 38 %; Platelet Count 341 k/uL (150-450); RBC 4.99 m/uL (3.80-5.40); RDW 16.7 % (11.5-15.5); WBC 8.1 k/uL (3.8-10.6)
--- NOTE | 2021-11-15 11:49 | NM ---
EXAMINATION TYPE: NM stress lexiscan cardiolite DATE OF EXAM: 11/15/2021 COMPARISON: NONE HISTORY: Chest pain TECHNIQUE: After the intravenous administration of 9.9 mCi Tc 99m Sestamibi - Cardiolite resting SPE CT images acquired 70 minutes post injection. At peak stress 25.3 mCi Tc 99m Sestamibi - Stress images obtained 37 minutes post injection The patient was stressed with 0.4mg Lexiscan. FINDINGS: There is some diminished radiotracer accumulation along the inferior lateral wall. This appears large r on the stress images in the resting images. Correlate for some stress-induced ischemic change. There may be some dyskinesia of the cardiac apex. Some dyskinesia of the inferior wall may also be pr esent. Ejection fraction is calculated to be 55 %. IMPRESSION: 1. Clinical correlation recommended for stress-induced ischemic change inferior lateral wall. 2. Dyskinesia of the cardiac apex and inferior wall.
[2021-11-15 12:14] LABS: Glucose,Whole Blood 113 mg/dL (75-99)
--- NOTE | 2021-11-15 13:23 | P.PN ---
Subjective Progress Note Date: 11/15/21 Principal diagnosis: patient continues to have chest pain radiating to the left shoulder 51-year-old female with past medical history of diabetes hypertension: Artery disease and stents in the past was admitted to the hospital with chest pain started several hours before the admission substernal Review of systems and systems has been reviewed all negative and positive findings as per history of present illness Constitutional: No acute distress, conversant, pleasant Eyes: Anicteric sclerae, moist conjunctiva, no lid-lag PERRLA ENMT: NC/AT Oropharynx clear, no erythema, exudates Neck: Supple, FROM, no masses, or JVD No carotid bruits No thyromegaly Lungs: Clear to auscultation Clear to percussion Normal respiratory effort, no accessory muscle use Cardiovascular: Heart regular in rate and rhythm, No murmurs, gallops, or rubs No peripheral edema Abdominal: Soft Nontender, no guarding, rebound or rigidity Abdomen moving with respiration Normoactive bowel sounds No hepatomegaly, No splenomegaly No palpable mass No abdominal wall hernia noted Skin: Normal temperature, tone, texture, turgor No induration No subcutaneous nodules No rash, lesions No ulcers Extremities: No digital cyanosis No clubbing Pedal pulses intact and symmetrical Radial pulses intact and symmetrical Normal gait and station No calf tenderness Psychiatric:Alert and oriented to person, place and time Appropriate affect Intact judgement Neuro: Muscles Strength 5/5 in all 4 extremities Sensation to light touch grossly present throughout Cranial nerves II-XII grossly intact No focal sensory deficits Echocardiogram has been ordered we'll continue to monitor Chest pain with typical and atypical features we'll observe overnight we'll consult cardiology Diabetes we'll put the patient on sliding scale insulin Hypertension Anxiety Multiple medical problems We will check computed tomography scan of the lungs to rule out PE Stress test pending Objective - Vital Signs Vital signs: Vital Signs Temp 97.6 F 11/15/21 08:00 Pulse 54 L 11/15/21 11:10 Resp 16 11/15/21 11:10 BP 135/80 11/15/21 11:10 Pulse Ox 95 11/15/21 11:10 Intake & Output 11/14/21 11/15/21 11/15/21 18:59 06:59 18:59 Intake Total 209.4 326.844 Balance 209.4 326.844 Weight 90.72 kg Intake: Intake, IV Titration 209.4 26.844 Amount Heparin Sod,Pork in 0.45% 209.4 26.844 NaCl 25,000 unit In 0.45 % NaCl 1 250ml.bag @ 11. 023 UNITS/KG/HR 10 mls/hr IV .Q24H [facility] Rx#: [id number] Oral 0 300 Other: Voiding Method Toilet Toilet # Voids 0 1 - Labs CBC & Chem 7: 11/15/21 07:37 11/15/21 07:37 Labs: Abnormal Lab Results - Last 24 Hours (Table) 11/14/21 11/14/21 11/14/21 Range/Units 16:46 17:07 20:31 RDW (11.5-15.5) % APTT 30.5 H (22.0-30.0) sec Glucose (74-99) mg/dL POC Glucose (mg/dL) 113 H 155 H (75-99) mg/dL Alkaline Phosphatase (38-126) U/L 11/15/21 11/15/21 11/15/21 Range/Units 00:29 06:15 07:37 RDW 16.7 H (11.5-15.5) % APTT 45.2 H (22.0-30.0) sec Glucose (74-99) mg/dL POC Glucose (mg/dL) 114 H (75-99) mg/dL Alkaline Phosphatase (38-126) U/L 11/15/21 11/15/21 Range/Units 07:37 12:12 RDW (11.5-15.5) % APTT (22.0-30.0) sec Glucose 115 H (74-99) mg/dL POC Glucose (mg/dL) 113 H (75-99) mg/dL Alkaline Phosphatase 140 H (38-126) U/L
--- NOTE | 2021-11-15 13:52 | P.PN ---
Subjective Progress Note Date: 11/15/21 HISTORY OF PRESENT ILLNESS: This is a 51-year old female with a past medical history significant for coronary artery disease with previous stent and CABG in 2008 at [facility], COPD, GERD, and Type 2 diabetes mellitus. Patient reports history of 2 CVAs, and 4 MIs and CABG x 2 and also reports having 7 stents with the last one being placed in 2018. Patient followed in the past with a Dr. Sierra in [facility] but states that she is no longer following with his produce wrapper and has not seen a produce wrapper for greater than 1 year. Patient presented to the hospital due to left shoulder and back pain. She denies having any shortness of breath. She complains of vomiting. She also complains of tenderness on the upper back area and pain with movement. She denies chest pain with deep breathing. This started at 3 PM yesterday and has been coming and going until it stayed for 2 hour. Patient states that Dilaudid helped her pain. EKG sinus bradycardia Chest x-ray reveals no active cardiopulmonary disease. Troponin was negative on 3 draws. Alkaline phosphatase 136. Chronic virus PCR not detected. Creatinine 0.78. Patient is a active tobacco use or cut down to 5 cigarettes per day. Denies alcohol and illicit drug use. Echocardiogram from 06/2020: EF 55-60%, mild tricuspid regurgitation. 11/14: Patient says she continues to have chest pain. Echocardiogram reveals EF of 55%, mild mitral regurgitation, mild tricuspid regurgitation. Discussed o ptions with patient and she is agreeable for Lexiscan stress test tomorrow. 11/15/2021 Patient examined this morning at the bedside. Patient underwent Lexiscan stress test revealing stress-induced ischemic changes inferior lateral wall. Dyskinesia of the cardiac apex and inferior wall. Patient's vital signs are stable. Patient is scheduled to undergo chest CT to rule out PE per internal medicine. PHYSICAL EXAM: VITAL SIGNS: Reviewed. GENERAL: Well-developed in no acute distress. NECK: Supple. No JVD or thyromegaly LUNGS: Respirations even and unlabored. Lungs essentially clear to auscultation bilaterally. HEART: Regular rate and rhythm. S1 and S2 heard. EXTREMITIES: Normal range of motion. No clubbing or cyanosis. Peripheral pulses intact. No lower extremity edema ASSESSMENT: Chest pain, atypical - acute coronary event has been ruled out. COPD History of coronary artery disease with previous CABG in 2009 and multiple stent placements (most recent in 2018) Diabetes mellitus, type II Hypertension Nicotine dependence History of substance abuse PLAN: Stress test reviewed by Dr. Devlin which he states reveals "old infarct with toya-infarct ischemia" Per Dr. Devlin, no plans for cardiac cath at this time. He states patient may be discharged home today and follow up outpatient with Dr. Garcia Will add Imdur 30mg daily Nurse practitioner note has been reviewed by physician. Signing provider agrees with the documented findings, assessment, and plan of care. Objective - Vital Signs Vital signs: Vital Signs Temp 97.6 F 11/15/21 08:00 Pulse 54 L 11/15/21 11:10 Resp 16 11/15/21 11:10 BP 135/80 11/15/21 11:10 Pulse Ox 95 11/15/21 11:10 Intake & Output 11/14/21 11/15/21 11/15/21 18:59 06:59 18:59 Intake Total 209.4 326.844 Balance 209.4 326.844 Weight 90.72 kg Intake: Intake, IV Titration 209.4 26.844 Amount Heparin Sod,Pork in 0.45% 209.4 26.844 NaCl 25,000 unit In 0.45 % NaCl 1 250ml.bag @ 11. 023 UNITS/KG/HR 10 mls/hr IV .Q24H [facility] Rx#: [id number] Oral 0 300 Other: Voiding Method Toilet Toilet # Voids 0 1 - Labs CBC & Chem 7: 11/15/21 07:37 11/15/21 07:37 Labs: Abnormal Lab Results - Last 24 Hours (Table) 11/14/21 11/14/21 11/14/21 Range/Units 16:46 17:07 20:31 RDW (11.5-15.5) % APTT 30.5 H (22.0-30.0) sec Glucose (74-99) mg/dL POC Glucose (mg/dL) 113 H 155 H (75-99) mg/dL Alkaline Phosphatase (38-126) U/L 11/15/21 11/15/21 11/15/21 Range/Units 00:29 06:15 07:37 RDW 16.7 H (11.5-15.5) % APTT 45.2 H (22.0-30.0) sec Glucose (74-99) mg/dL POC Glucose (mg/dL) 114 H (75-99) mg/dL Alkaline Phosphatase (38-126) U/L 11/15/21 11/15/21 Range/Units 07:37 12:12 RDW (11.5-15.5) % APTT (22.0-30.0) sec Glucose 115 H (74-99) mg/dL POC Glucose (mg/dL) 113 H (75-99) mg/dL Alkaline Phosphatase 140 H (38-126) U/L
[2021-11-15] MEDS: ISOSORBIDE MONONITRATE ER 30 MG TAB.ER.24H PO SCH (13:54)
[2021-11-15] MEDS: HYDROcodone/APAP 10-325MG 1 EACH TAB PO PRN ×2 (13:55→23:04)
--- NOTE | 2021-11-15 14:40 | EST ---
EXERCISE STRESS AGE: 51 SEX: F HT: 5'5" WT: 200 lbs. PROTOCOL: Lexiscan STAGE: NA DURATION OF EXERCISE: NA HEART RATE REST: 51 BLOOD PRESSURE REST: 140/78 MAXIMUM HEART RATE ACHIEVED: 81 MAXIMUM BLOOD PRESSURE: 155/84 85% MPHR: 142 100% MPHR: 167 METS: NA INDICATIONS: Chest pain CLINICAL INFORMATION: Baseline rhythm is sinus mechanism, rate of 51, normal axis and intervals, minor nonspecific ST-T wave changes. Baseline blood pressure 140/78 mmHg. Patient received injection of Lexiscan. Electrocardiographic monitoring revealed no evidence of diagnostic ischemic ST deviation. Cardiolite was injected per protocol. CONCLUSION: 1. Nondiagnostic electrocardiograph stress testing. 2. Nuclear images will be reported separately. MMODL / IJN: [id number] /
[2021-11-15 17:00] LABS: Glucose,Whole Blood 169 mg/dL (75-99)
--- NOTE | 2021-11-15 17:30 | CT ---
EXAMINATION TYPE: CT chest angio for PE DATE OF EXAM: 11/15/2021 COMPARISON: None available HISTORY: Chest pain. CT DLP: 354.1 mGycm Automated exposure control for dose reduction was used. CONTRAST: CT Chest for pulmonary embolism performed with with IV Contrast, patient injected with 100 mL of Isov ue 370. MIP images were performed and reviewed. FINDINGS: Artifactual images mainly in the left lower lobe. No definite filling defect is seen within the pulmo nary trunk, main pulmonary arteries, lobar, segmental and proximal subsegmental arteries. Distal subs egmental arteries mainly in the left lower lobe are suboptimally assessed. The pulmonary trunk measur es 2.9 cm. Scattered arterial atherosclerotic calcifications. Previous coronary bypass surgery. No gross cardiom egaly. No pleural or pericardial effusion. Subcentimeter bilateral hilar and mediastinal lymph nodes, nonspecific. No pathologically enlarged lymph nodes in the chest. COPD changes mainly involving the upper lung lobes. 5.6 mm nodule along the right transverse fissure, with 5.8 mm pleural-based nodule at the lateral asp ect of the left lower lobe and adjacent 5 mm pleural-based nodule. For optional follow-up CT scan in 12 months. Unremarkable lungs otherwise. Patent central airways. Previous sternotomy wire sutures. Un remarkable upper abdomen. No aggressive bone lesion. IMPRESSION: With the limitation of the artifactual images, no major or central pulmonary emboli. No definite acut e pulmonary abnormality. COPD changes as described above. Scattered pulmonary nodules as described above, requiring no further follow-up if low risk patient. I f high-risk patient, optional follow-up CT scan in 12 months can be considered. Other incidental find ings as described above.
[2021-11-15] MEDS: ALPRAZolam 0.5 MG TAB PO PRN (20:01)
[2021-11-15] MEDS: ATORVASTATIN 80 MG TAB PO SCH (20:01)
[2021-11-15 20:27] LABS: Glucose,Whole Blood 96 mg/dL (75-99)
[2021-11-16] MEDS: HYDROmorphone 1 MG/ML 1 ML SYRINGE IVP PRN ×2 (03:43→06:51)
[2021-11-16 06:14] LABS: Glucose,Whole Blood 117 mg/dL (75-99)
[2021-11-16] MEDS: INSULIN ASPART (NovoLOG) 100 UNIT/ML VIAL SQ SCH (06:49)
[2021-11-16] MEDS: HYDROcodone/APAP 10-325MG 1 EACH TAB PO PRN (08:28)
[2021-11-16] MEDS: CLOPIDOGREL 75 MG TAB PO SCH (08:28)
[2021-11-16] MEDS: PANTOPRAZOLE 40 MG TABLET PO SCH (08:29)
[2021-11-16] MEDS: ASPIRIN 81 MG PO SCH (08:29)
[2021-11-16] MEDS: ESCITALOPRAM 20 MG TAB PO SCH (08:29)
[2021-11-16] MEDS: METOPROLOL TARTRATE 50 MG TAB PO SCH (08:29)
[2021-11-16] MEDS: ISOSORBIDE MONONITRATE ER 30 MG TAB.ER.24H PO SCH (08:29)
[2021-11-16] MEDS: ALPRAZolam 0.5 MG TAB PO PRN (08:29)
[2021-11-16 09:35] LABS: Anisocytosis Slight; Basophils % (A) 1 %; Eosinophils # (A) 0.3 k/uL (0-0.7); Eosinophils % (A) 4 %; HCT 41.3 % (34.0-46.0); HGB 13.2 gm/dL (11.4-16.0); Hypochromasia Slight; Lymphocytes # (A) 2.4 k/uL (1.0-4.8); Lymphocytes % (A) 35 %; MCH 26.4 pg (25.0-35.0); MCHC 31.9 g/dL (31.0-37.0); MCV 82.9 fL (80.0-100.0); Mean Platelet Volume 7.9; Monocytes # (A) 0.5 k/uL (0-1.0); Monocytes % (A) 7 %; Neutrophils # (A) 3.6 k/uL (1.3-7.7); Neutrophils % (A) 51 %; Platelet Count 344 k/uL (150-450); RBC 4.98 m/uL (3.80-5.40); RDW 16.8 % (11.5-15.5)
[2021-11-16 10:00] LABS: ALT 24 U/L (4-34); AST 32 U/L (14-36); African American GFR (CKD) >90 (>60 ml/min/1.73 sqM); Albumin 4.3 g/dL (3.5-5.0); Alkaline Phosphatase 129 U/L (38-126); Anion Gap 6 mmol/L; Blood Urea Nitrogen 16 mg/dL (7-17); Calcium 10.1 mg/dL (8.4-10.2); Carbon Dioxide 25 mmol/L (22-30); Chloride 105 mmol/L (98-107); Glucose 119 mg/dL (74-99); Non-African American GFR(CKD) 87 (>60 ml/min/1.73 sqM); Potassium 4.1 mmol/L (3.5-5.1); Sodium 136 mmol/L (137-145); Total Bilirubin 0.9 mg/dL (0.2-1.3); Total Protein 7.2 g/dL (6.3-8.2)
[2021-11-16 10:24] VITALS: BP 116/69; PULSE 89; RESP 16; TEMP 98.3
--- NOTE | 2021-11-16 10:59 | P.DS ---
Providers Date of admission: 11/15/21 07:51 Expected date of discharge: 11/16/21 Attending physician: Erasto Cortez MD Consults: 11/12/21 18:27 Consult Physician Routine Consulting Provider: Iqra Ascencio Consult Reason/Comments: cp Do you want consulting provider notified?: Yes Primary care physician: Physician Nonstaff Hospital Course: Discharge Diagnosis: Chest pain, atypical - acute coronary event has been ruled out. COPD History of coronary artery disease with previous CABG in 2008 and multiple stent placements (most recent in 2018) Diabetes mellitus, type II Hypertension Nicotine dependence History of substance abuse Hospital Course: This is a 51-year old female with a past medical history significant for coronary artery disease with previous stent and CABG in 2008 at [facility], COPD, GERD, and Type 2 diabetes mellitus. Patient reports history of 2 CVAs, and 4 MIs and CABG x 2 and also reports having 7 stents with the last one being placed in 2018. Patient followed in the past with a Dr. Sierra in [facility] but states that she is no longer following with his rn palliative and has not seen a rn palliative for greater than 1 year. Patient presented to the hospital due to left shoulder and back pain. Patient's pain was atypical in however due to her significant cardiac history she is admitted for ACS rule out. Patient had a stress test done that showed "old infarct with toya-infarct ischemia". Patient was seen by cardiology and deemed stable for discharge. Patient states that she is looking for a new rn palliative in the area. Patient will be referred to . Patient was seen on the day of discharge. She denied any chest pain. She is looking f orward to going home. Patient seen and examined at bedside.[] Vital signs reviewed and stable. General: [non toxic], [no distress], [appears at stated age] Derm: [warm], [dry] Head: [atraumatic], [normocephalic], [symmetric] Eyes: [EOMI], [no lid lag], [anicteric sclera] Mouth: [no lip lesion], [mucus membranes moist] Cardiovascular: [S1S2 reg], [no murmur], [positive posterior tibial pulse bilateral], Lungs: [CTA bilateral], [no rhonchi, no rales] , [no accessory muscle use] Abdominal: [soft], [ nontender to palpation], [no guarding], [no appreciable organomegaly] Ext: [no gross muscle atrophy], [no edema], [no contractures] Neuro: [ CN II-XI grossly intact], [no focal neuro deficits] Psych: [Alert], [oriented], [appropriate affect] A total of [25] minutes of time were spent preparing this complex discharge summary . Patient Condition at Discharge: Fair Plan - Discharge Summary Discharge Rx Participant: Yes New Discharge Prescriptions: Continue Hydrocodone/Acetaminophen [[place] 10-325] 1 tab PO TID Escitalopram [Lexapro] 20 mg PO DAILY Aspirin EC [Ecotrin Low Dose] 81 mg PO DAILY amLODIPine [Norvasc] 10 mg PO DAILY Omeprazole 40 mg PO BID Metoprolol Tartrate [Lopressor] 50 mg PO BID ALPRAZolam [Xanax] 0.5 mg PO TID Clopidogrel [Plavix] 75 mg PO DAILY Atorvastatin [Lipitor] 80 mg PO HS rOPINIRole HCL [Requip] 1 mg PO HS diphenhydrAMINE [Benadryl] 25 mg PO BID Butalb/Acetaminophen/Caffeine [Fioricet 50-325-40] 1 tab PO DAILY ARIPiprazole [Abilify] 5 mg PO DAILY Ranolazine [Ranexa] 1,000 mg PO BID Albuterol Sulfate [Proair Hfa] 2 puff INHALATION RT-TID metFORMIN HCL [Glucophage] 1,000 mg PO BID Pregabalin [Lyrica] 150 mg PO BID Tiotropium 2.5 Mcg/Puff [Spiriva Respimat 2.5 Mcg] 1 puff INHALATION RT-BID Nitroglycerin Sl Tabs [Nitrostat] 0.4 mg SL Q5M PRN PRN Reason: Chest Pain Isosorbide Dinitrate 30 mg PO BID Discharge Medication List ALPRAZolam [Xanax] 0.5 mg PO TID 07/08/20 [History] Aspirin EC [Ecotrin Low Dose] 81 mg PO DAILY 07/08/20 [History] Atorvastatin [Lipitor] 80 mg PO HS 07/08/20 [History] Clopidogrel [Plavix] 75 mg PO DAILY 07/08/20 [History] Escitalopram [Lexapro] 20 mg PO DAILY 07/08/20 [History] Hydrocodone/Acetaminophen [[place] 10-325] 1 tab PO TID 07/08/20 [History] Metoprolol Tartrate [Lopressor] 50 mg PO BID 07/08/20 [History] Omeprazole 40 mg PO BID 07/08/20 [History] amLODIPine [Norvasc] 10 mg PO DAILY 07/08/20 [History] Albuterol Sulfate [Proair Hfa] 2 puff INHALATION RT-TID 12/20/20 [History] metFORMIN HCL [Glucophage] 1,000 mg PO BID 12/20/20 [History] Butalb/Acetaminophen/Caffeine [Fioricet 50-325-40] 1 tab PO DAILY 11/12/21 [History] Nitroglycerin Sl Tabs [Nitrostat] 0.4 mg SL Q5M PRN 11/12/21 [History] Pregabalin [Lyrica] 150 mg PO BID 11/12/21 [History] Tiotropium 2.5 Mcg/Puff [Spiriva Respimat 2.5 Mcg] 1 puff INHALATION RT-BID 11/12/21 [History] diphenhydrAMINE [Benadryl] 25 mg PO BID 11/12/21 [History] rOPINIRole HCL [Requip] 1 mg PO HS 11/12/21 [History] ARIPiprazole [Abilify] 5 mg PO DAILY 11/13/21 [History] Isosorbide Dinitrate 30 mg PO BID 11/13/21 [History] Ranolazine [Ranexa] 1,000 mg PO BID 11/13/21 [History] Follow up Appointment(s)/Referral(s): Genaro Guerra DO [STAFF PHYSICIAN] - 11/30/21 3:45 pm Nonstaff,Physician [Primary Care Provider] - 1-2 days Patient Instructions/Handouts: Chest Pain (DC) Discharge Disposition: HOME SELF-CARE
--- NOTE | 2021-11-16 11:57 | P.PN ---
Subjective Progress Note Date: 11/16/21 HISTORY OF PRESENT ILLNESS: This is a 51-year old female with a past medical history significant for coronary artery disease with previous stent and CABG in 2009 at [facility], COPD, GERD, and Type 2 diabetes mellitus. Patient reports history of 2 CVAs, and 4 MIs and CABG x 2 and also reports having 7 stents with the last one being placed in 2018. Patient followed in the past with a Dr. Sierra in [facility] but states that she is no longer following with his vegetable grower and has not seen a vegetable grower for greater than 1 year. Patient presented to the hospital due to left shoulder and back pain. She denies having any shortness of breath. She complains of vomiting. She also complains of tenderness on the upper back area and pain with movement. She denies chest pain with deep breathing. This started at 3 PM yesterday and has been coming and going until it stayed for 2 hour. Patient states that Dilaudid helped her pain. EKG sinus bradycardia Chest x-ray reveals no active cardiopulmonary disease. Troponin was negative on 3 draws. Alkaline phosphatase 136. Chronic virus PCR not detected. Creatinine 0.78. Patient is a active tobacco use or cut down to 5 cigarettes per day. Denies alcohol and illicit drug use. Echocardiogram from 06/2020: EF 55-60%, mild tricuspid regurgitation. 11/14: Patient says she continues to have chest pain. Echocardiogram reveals EF of 55%, mild mitral regurgitation, mild tricuspid regurgitation. Discussed o ptions with patient and she is agreeable for Lexiscan stress test tomorrow. 11/15/2021 Patient examined this morning at the bedside. Patient underwent Lexiscan stress test revealing stress-induced ischemic changes inferior lateral wall. Dyskinesia of the cardiac apex and inferior wall. Patient's vital signs are stable. Patient is scheduled to undergo chest CT to rule out PE per internal medicine. 11/16/2021 Patient examined this morning at the bedside. Patient remains hemodynamically stable. She underwent CTA of the chest which was negative for pulmonary embolism. Her vital signs are stable. PHYSICAL EXAM: VITAL SIGNS: Reviewed. GENERAL: Well-developed in no acute distress. NECK: Supple. No JVD or thyromegaly LUNGS: Respirations even and unlabored. Lungs essentially clear to auscultation bilaterally. HEART: Regular rate and rhythm. S1 and S2 heard. EXTREMITIES: Normal range of motion. No clubbing or cyanosis. Peripheral pulses intact. No lower extremity edema ASSESSMENT: Chest pain, atypical - acute coronary event has been ruled out. COPD History of coronary artery disease with previous CABG in 2009 and multiple stent placements (most recent in 2018) Diabetes mellitus, type II Hypertension Nicotine dependence History of substance abuse PLAN: No plans for cardiac catheterization per Dr. Devlin Patient may be discharged home today from a cardiac standpoint and follow up on an outpatient basis Nurse practitioner note has been reviewed by physician. Signing provider agrees with the documented findings, assessment, and plan of care. Objective - Vital Signs Vital signs: Vital Signs Temp 98.3 F 11/16/21 08:00 Pulse 89 11/16/21 08:00 Resp 16 11/16/21 08:00 BP 116/69 11/16/21 08:00 Pulse Ox 97 11/16/21 08:00 Intake & Output 11/15/21 11/16/21 11/16/21 18:59 06:59 18:59 Intake Total 240 540 Balance 240 540 Weight 90.72 kg Intake: Oral 240 540 Other: Voiding Method Toilet Toilet # Voids 1 1 - Labs CBC & Chem 7: 11/16/21 09:02 11/16/21 09:02 Labs: Abnormal Lab Results - Last 24 Hours (Table) 11/15/21 11/15/21 11/15/21 Range/Units 12:12 14:07 16:58 RDW (11.5-15.5) % D-Dimer 0.66 H (<0.60) mg/L FEU Sodium (137-145) mmol/L Glucose (74-99) mg/dL POC Glucose (mg/dL) 113 H 169 H (75-99) mg/dL Alkaline Phosphatase (38-126) U/L 11/16/21 11/16/21 11/16/21 Range/Units 06:12 09:02 09:02 RDW 16.8 H (11.5-15.5) % D-Dimer (<0.60) mg/L FEU Sodium 136 L (137-145) mmol/L Glucose 119 H (74-99) mg/dL POC Glucose (mg/dL) 117 H (75-99) mg/dL Alkaline Phosphatase 129 H (38-126) U/L
== END 2021-11-16 11:08 | disposition left against medical advice (07) | DRG 313 ==
LOC: EC 17:01 → 3SCARD 19:25 → OBSVTOIN 11-15 07:51
PROVIDERS: ADMIT Internal Medicine; ATTEND Internal Medicine
DX: R07.89 Other chest pain (principal); E11.9 Type 2 diabetes mellitus without complications; I25.10 Atherosclerotic heart disease of native coronary artery without angina pectoris; F17.210 Nicotine dependence, cigarettes, uncomplicated; F31.9 Bipolar disorder, unspecified; F41.9 Anxiety disorder, unspecified; I10 Essential (primary) hypertension; Z20.822 Contact with and (suspected) exposure to COVID-19; I25.2 Old myocardial infarction; J44.9 Chronic obstructive pulmonary disease, unspecified; Z79.02 Long term (current) use of antithrombotics/antiplatelets; Z79.51 Long term (current) use of inhaled steroids; Z79.82 Long term (current) use of aspirin; Z79.84 Long term (current) use of oral hypoglycemic drugs; Z79.899 Other long term (current) drug therapy; Z95.1 Presence of aortocoronary bypass graft; Z95.5 Presence of coronary angioplasty implant and graft; G24.9 Dystonia, unspecified
CPT/HCPCS: 36415; 71046; 71275; 78452; 80053; 80061; 83690; 83735; 83880; 84484; 85025; 85379; 85610; 85730; 87635; 93005; 93017; 93306; 96374; 96375; 99291

== ENCOUNTER 2021-11-17 19:30 | Inpatient (IN) | payer OTHER ==
[2021-11-17] MEDS ORDERED: HEPARIN SODIUM 1,000 UN/ML (10ML VL) IV PRN (20:00)
[2021-11-17] MEDS ORDERED: HEPARIN SODIUM 1,000 UN/ML (10ML VL) IV ONE (20:00)
[2021-11-17] MEDS ORDERED: HEPARIN SOD,PORK IN 0.45% NACL 25,000 UNIT in 0.45% NACL 1 250ML.BAG IV SCH (20:00)
[2021-11-17] MEDS ORDERED: MORPHINE SULFATE 4 MG/ML SYRINGE IV STA (20:00)
[2021-11-17 20:16] LABS: Anisocytosis Slight; Basophils # (A) 0.1 k/uL (0-0.2); Basophils % (A) 1 %; Eosinophils # (A) 0.3 k/uL (0-0.7); Eosinophils % (A) 3 %; HCT 39.8 % (34.0-46.0); HGB 12.7 gm/dL (11.4-16.0); Hypochromasia Slight; Lymphocytes # (A) 3.2 k/uL (1.0-4.8); Lymphocytes % (A) 31 %; MCH 25.9 pg (25.0-35.0); MCV 80.8 fL (80.0-100.0); Mean Platelet Volume 8.1; Microcytosis Slight; Monocytes # (A) 0.7 k/uL (0-1.0); Monocytes % (A) 7 %; Neutrophils # (A) 5.8 k/uL (1.3-7.7); Neutrophils % (A) 56 %; Platelet Count 392 k/uL (150-450); RBC 4.93 m/uL (3.80-5.40); RDW 17.3 % (11.5-15.5); WBC 10.4 k/uL (3.8-10.6)
--- NOTE | 2021-11-17 20:21 | ED ---
General Adult HPI - General Chief complaint: Chest Pain Stated complaint: Chest Pain Time Seen by Provider: 11/17/21 19:51 Source: patient, EMS Mode of arrival: EMS Limitations: no limitations - History of Present Illness Initial comments: Dictation was produced using [employer] dictation software. please excuse any grammatical, word or spelling errors. Chief Complaint: 51-year-old female presents to emergency room for chest pain. History of Present Illness: She is 51-year-old female presents emergency department for chest pain. Patient was just discharged from this facility yesterday. She is admitted for 5 days for chest pain. Patient had an abnormal stress test. Patient was discharged after the stress test with plans to follow up with outpatient care. She presents emergency department for one hour of chest pain symptoms. She states that it's pressure-like sensation to her substernal area ideation to the left shoulder. Emergency medical services was contacted patient was brought to the emergency department. She is given Zofran, morphine and aspirin. She was also given 4 sublingual nitroglycerin doses. Patient states that her pain slightly abated however still persistent. The ROS documented in this emergency department record has been reviewed and confirmed by me. Those systems with pertinent positive or negative responses have been documented in the HPI. All other systems are other negative and/or noncontributory. PHYSICAL EXAM: General Impression: Alert and oriented x3, acute distress secondary to pain HEENT: Normocephalic atraumatic, extra-ocular movements intact, pupils equal and reactive to light bilaterally, mucous membranes moist. Cardiovascular: Heart regular rate and rhythm Chest: Able to complete full sentences, no retractions, no tachypnea Abdomen: abdomen soft, non-tender, non-distended, no organomegaly Musculoskeletal: Pulses present and equal in all extremities, no peripheral e lilo Motor: no focal deficits noted Neurological: CN II-XII grossly intact, no focal motor or sensory deficits noted Skin: Intact with no visualized rashes Psych: Normal affect and mood ED course: 51-year-old female presents to the emergency room for chest pain concerning for acute coronary syndrome. Signs upon arrival are within acceptable limits. Initial EKG showed ST depressions in inferior leads. No obvious ST elevations. First EKG was performed at 7:40 PM. Second EKG was performed at 7:56 PM showing improvement of ST depressions in inferior leads however still noticeable. EKG #3 was performed at 813 showing similar findings a second EKG. patient started on low dose heparin. Clinical presentation consistent with unstable angina. Laboratory evaluation obtained. CBC 7, coag panel, metabolic panel is unremarkable. First troponin is negative. Chest x-ray is nonacute. Patient given IV analgesia. Patient will be admitted for unstable angina. She will be admitted to [facility]. Cardiology be consulted. EKG interpretation: Ventricular rate sinus rhythm, LA interval 120, QRS 89, QTc 43, ST depressions in inferior leads.. No LA prolongation. This EKG is conc erning for cardiac ischemia. - Related Data Home Medications Medication Instructions Recorded Confirmed ALPRAZolam [Xanax] 0.5 mg PO TID 07/08/20 11/17/21 Aspirin EC [Ecotrin Low Dose] 81 mg PO DAILY 07/08/20 11/17/21 Atorvastatin [Lipitor] 80 mg PO HS 07/08/20 11/17/21 Clopidogrel [Plavix] 75 mg PO DAILY 07/08/20 11/17/21 Escitalopram [Lexapro] 20 mg PO DAILY 07/08/20 11/17/21 Hydrocodone/Acetaminophen [[place] 1 tab PO TID 07/08/20 11/17/21 10-325] Metoprolol Tartrate [Lopressor] 50 mg PO BID 07/08/20 11/17/21 Omeprazole 40 mg PO BID 07/08/20 11/17/21 amLODIPine [Norvasc] 10 mg PO DAILY 07/08/20 11/17/21 Albuterol Sulfate [Proair Hfa] 2 puff INHALATION RT-TID 12/20/20 11/17/21 metFORMIN HCL [Glucophage] 1,000 mg PO BID 12/20/20 11/17/21 Butalb/Acetaminophen/Caffeine 1 tab PO DAILY 11/12/21 11/17/21 [Fioricet 50-325-40] Nitroglycerin Sl Tabs [Nitrostat] 0.4 mg SL Q5M PRN 11/12/21 11/17/21 Pregabalin [Lyrica] 150 mg PO BID 11/12/21 11/17/21 Tiotropium 2.5 Mcg/Puff [Spiriva 1 puff INHALATION RT-BID 11/12/21 11/17/21 Respimat 2.5 Mcg] diphenhydrAMINE [Benadryl] 25 mg PO BID 11/12/21 11/17/21 rOPINIRole HCL [Requip] 1 mg PO HS 11/12/21 11/17/21 ARIPiprazole [Abilify] 5 mg PO DAILY 11/13/21 11/17/21 Isosorbide Dinitrate 30 mg PO BID 11/13/21 11/17/21 Ranolazine [Ranexa] 1,000 mg PO BID 11/13/21 11/17/21 Allergies Allergy/AdvReac Type Severity Reaction Status Date / Time No Known Allergies Allergy Verified 11/12/21 17:23 Review of Systems ROS Statement: Those systems with pertinent positive or pertinent negative responses have been documented in the HPI. ROS Other: All systems not noted in ROS Statement are negative. Past Medical History Past Medical History: Asthma, Coronary Artery Disease (CAD), COPD, Diabetes Mellitus, GERD/Reflux, Myocardial Infarction ([place]), Osteoarthritis (OA) Additional Past Medical History / Comment(s): DDD Last Myocardial Infarction Date:: 2011 History of Any Multi-Drug Resistant Organisms: None Reported Past Surgical History: Coronary Bypass/CABG, Heart Catheterization With Stent Additional Past Surgical History / Comment(s): seven stents Past Anesthesia/Blood Transfusion Reactions: No Reported Reaction Date of Last Stent Placement:: 11/2018 Past Psychological History: Anxiety, Bipolar Smoking Status: Current every day smoker Past Alcohol Use History: Occasional Past Drug Use History: Marijuana General Exam Limitations: no limitations Course Vital Signs 11/17/21 19:34 Temperature 98.7 F Pulse Rate 85 Respiratory 20 Rate Blood Pressure 158/97 O2 Sat by Pulse 97 Oximetry Medical Decision Making - Lab Data Result diagrams: 11/17/21 19:52 11/17/21 19:52 Lab Results 11/17/21 11/17/21 11/17/21 Range/Units 19:52 19:52 19:52 WBC 10.4 (3.8-10.6) k/uL RBC 4.93 (3.80-5.40) m/uL Hgb 12.7 (11.4-16.0) gm/dL Hct 39.8 (34.0-46.0) % MCV 80.8 (80.0-100.0) fL MCH 25.9 (25.0-35.0) pg MCHC 32.0 (31.0-37.0) g/dL RDW 17.3 H (11.5-15.5) % Plt Count 392 (150-450) k/uL MPV 8.1 Neutrophils % 56 % Lymphocytes % 31 % Monocytes % 7 % Eosinophils % 3 % Basophils % 1 % Neutrophils # 5.8 (1.3-7.7) k/uL Lymphocytes # 3.2 (1.0-4.8) k/uL Monocytes # 0.7 (0-1.0) k/uL Eosinophils # 0.3 (0-0.7) k/uL Basophils # 0.1 (0-0.2) k/uL Hypochromasia Slight Anisocytosis Slight Microcytosis Slight PT 10.3 (9.0-12.0) sec INR 0.9 (<1.2) APTT 22.1 (22.0-30.0) sec Sodium 140 (137-145) mmol/L Potassium 3.2 L (3.5-5.1) mmol/L Chloride 104 (98-107) mmol/L Carbon Dioxide 26 (22-30) mmol/L Anion Gap 10 mmol/L BUN 13 (7-17) mg/dL Creatinine 0.87 (0.52-1.04) mg/dL Est GFR (CKD-EPI)AfAm 88 (>60 ml/min/1.73 sqM) Est GFR (CKD-EPI)NonAf 77 (>60 ml/min/1.73 sqM) Glucose 146 H (74-99) mg/dL Calcium 10.1 (8.4-10.2) mg/dL Total Bilirubin 0.6 (0.2-1.3) mg/dL AST 25 (14-36) U/L ALT 21 (4-34) U/L Alkaline Phosphatase 125 (38-126) U/L Troponin I (0.000-0.034) ng/mL Total Protein 7.5 (6.3-8.2) g/dL Albumin 4.6 (3.5-5.0) g/dL Lipase 46 (23-300) U/L 11/17/21 Range/Units 19:52 WBC (3.8-10.6) k/uL RBC (3.80-5.40) m/uL Hgb (11.4-16.0) gm/dL Hct (34.0-46.0) % MCV (80.0-100.0) fL MCH (25.0-35.0) pg MCHC (31.0-37.0) g/dL RDW (11.5-15.5) % Plt Count (150-450) k/uL MPV Neutrophils % % Lymphocytes % % Monocytes % % Eosinophils % % Basophils % % Neutrophils # (1.3-7.7) k/uL Lymphocytes # (1.0-4.8) k/uL Monocytes # (0-1.0) k/uL Eosinophils # (0-0.7) k/uL Basophils # (0-0.2) k/uL Hypochromasia Anisocytosis Microcytosis PT (9.0-12.0) sec INR (<1.2) APTT (22.0-30.0) sec Sodium (137-145) mmol/L Potassium (3.5-5.1) mmol/L Chloride (98-107) mmol/L Carbon Dioxide (22-30) mmol/L Anion Gap mmol/L BUN (7-17) mg/dL Creatinine (0.52-1.04) mg/dL Est GFR (CKD-EPI)AfAm (>60 ml/min/1.73 sqM) Est GFR (CKD-EPI)NonAf (>60 ml/min/1.73 sqM) Glucose (74-99) mg/dL Calcium (8.4-10.2) mg/dL Total Bilirubin (0.2-1.3) mg/dL AST (14-36) U/L ALT (4-34) U/L Alkaline Phosphatase (38-126) U/L Troponin I <0.012 (0.000-0.034) ng/mL Total Protein (6.3-8.2) g/dL Albumin (3.5-5.0) g/dL Lipase (23-300) U/L Critical Care Time Critical Care Time: Yes Total Critical Care Time: 33 Disposition Clinical Impression: Unstable angina Disposition: ADMITTED IP TO THIS [facility] Condition: Critical Referrals: Nonstaff,Physician [Primary Care Provider] - 1-2 days
[2021-11-17 20:27] LABS: INR 0.9 (<1.2); Partial Thromboplastin Time 22.1 sec (22.0-30.0); Prothrombin Time 10.3 sec (9.0-12.0)
--- NOTE | 2021-11-17 20:30 | XR ---
EXAMINATION TYPE: XR chest 1V portable DATE OF EXAM: 11/17/2021 COMPARISON: 11/12/2021 HISTORY: Chest pain TECHNIQUE: Single frontal view of the chest is obtained. FINDINGS: There is no focal air space opacity, pleural effusion, or pneumothorax seen. The cardiac silhouette size is within normal limits. The osseous structures are without acute abnormality. Medi an sternotomy seen. Subcentimeter calcification adjacent to the right humeral greater tuberosity cons istent with calcific tendinopathy seen. IMPRESSION: No acute process.
[2021-11-17 20:35] LABS: Albumin 4.6 g/dL (3.5-5.0); Calcium 10.1 mg/dL (8.4-10.2); Potassium 3.2 mmol/L (3.5-5.1); Total Bilirubin 0.6 mg/dL (0.2-1.3); Total Protein 7.5 g/dL (6.3-8.2)
[2021-11-17] MEDS ORDERED: HYDROmorphone 0.5 MG/0.5 ML SYRINGE IVP STA (21:05)
[2021-11-17] MEDS: NITROGLYCERIN SL TABS 0.4 MG TAB SUBLINGUAL PRN ×3 (23:13→23:26)
[2021-11-17] MEDS ORDERED: HYDROmorphone 1 MG/ML 1 ML SYRINGE IVP PRN (23:26)
[2021-11-17] MEDS ORDERED: POTASSIUM CHLORIDE ER 20 MEQ TAB.ER PO STA (23:27)
[2021-11-17] MEDS ORDERED: ALPRAZolam 0.5 MG TAB PO PRN (23:42)
--- NOTE | 2021-11-17 23:45 | P.HPIM ---
History of Present Illness H&P Date: 11/17/21 Chief Complaint: chest pain 51 year old female with CAD s/p CABG, Stents, DM, hypertension patient was just discharged from the hospital yesterday for which she was admitted for atypical chest pain , cardiology did cardiac workup and cleared patient for discharge and outpatient follow up and maximize medical management patient comes back today due to recurrent chest pain described as central pressure 8/10 in severity radiating to left shoulder, and jaw tightness. as sociated with nausea and vomiting, profuse sweating and palpitations. patient took nitro and aspirin with not much relief, notified EMS and was brought to hospital for evaluation upon arrival , her EKG showed inferior leads ST depression , negative trops. patient was started on heparin drip and meds to control pain patient denies any bleeding , abd pain , fever chills, or any focal neuro de ficits Review of Systems Pertinent positives as noted in HPI. All other systems were reviewed and are negative Past Medical History Past Medical History: Asthma, Coronary Artery Disease (CAD), COPD, Diabetes Mellitus, GERD/Reflux, Myocardial Infarction ([place]), Osteoarthritis (OA) Additional Past Medical History / Comment(s): DDD Last Myocardial Infarction Date:: 2011 History of Any Multi-Drug Resistant Organisms: None Reported Past Surgical History: Coronary Bypass/CABG, Heart Catheterization With Stent Additional Past Surgical History / Comment(s): seven stents Past Anesthesia/Blood Transfusion Reactions: No Reported Reaction Date of Last Stent Placement:: 11/2018 Past Psychological History: Anxiety, Bipolar Smoking Status: Current every day smoker Past Alcohol Use History: Occasional Past Drug Use History: Marijuana - Past Family History Fmily Family Medical History: No Reported History Medications and Allergies Home Medications Medication Instructions Recorded Confirmed Type ALPRAZolam [Xanax] 0.5 mg PO TID 07/08/20 11/17/21 History Aspirin EC [Ecotrin Low Dose] 81 mg PO DAILY 07/08/20 11/17/21 History Atorvastatin [Lipitor] 80 mg PO HS 07/08/20 11/17/21 History Clopidogrel [Plavix] 75 mg PO DAILY 07/08/20 11/17/21 History Escitalopram [Lexapro] 20 mg PO DAILY 07/08/20 11/17/21 History Hydrocodone/Acetaminophen [[place] 1 tab PO TID 07/08/20 11/17/21 History 10-325] Metoprolol Tartrate [Lopressor] 50 mg PO BID 07/08/20 11/17/21 History Omeprazole 40 mg PO BID 07/08/20 11/17/21 History amLODIPine [Norvasc] 10 mg PO DAILY 07/08/20 11/17/21 History Albuterol Sulfate [Proair Hfa] 2 puff INHALATION RT-TID 12/20/20 11/17/21 History metFORMIN HCL [Glucophage] 1,000 mg PO BID 12/20/20 11/17/21 History Butalb/Acetaminophen/Caffeine 1 tab PO DAILY 11/12/21 11/17/21 History [Fioricet 50-325-40] Nitroglycerin Sl Tabs [Nitrostat] 0.4 mg SL Q5M PRN 11/12/21 11/17/21 History Pregabalin [Lyrica] 150 mg PO BID 11/12/21 11/17/21 History Tiotropium 2.5 Mcg/Puff [Spiriva 1 puff INHALATION RT-BID 11/12/21 11/17/21 History Respimat 2.5 Mcg] diphenhydrAMINE [Benadryl] 25 mg PO BID 11/12/21 11/17/21 History rOPINIRole HCL [Requip] 1 mg PO HS 11/12/21 11/17/21 History ARIPiprazole [Abilify] 5 mg PO DAILY 11/13/21 11/17/21 History Isosorbide Dinitrate 30 mg PO BID 11/13/21 11/17/21 History Ranolazine [Ranexa] 1,000 mg PO BID 11/13/21 11/17/21 History Allergies Allergy/AdvReac Type Severity Reaction Status Date / Time No Known Allergies Allergy Verified 11/12/21 17:23 Physical Exam Vitals: Vital Signs Temp Pulse Resp BP Pulse Ox 11/17/21 19:34 98.7 F 85 20 158/97 97 Intake and Output 11/17/21 11/17/21 11/17/21 06:59 14:59 22:59 Other: Weight 90.718 kg Constitutional: No acute distress, conversant, pleasant Eyes: Anicteric sclerae, moist conjunctiva, Pupils equal round reactive to light ENMT: NC/AT Oropharynx clear, no erythema, or exudates Neck: Supple, FROM, no masses, or JVD No carotid bruits No thyromegaly Lungs: Clear to auscultation Clear to percussion Normal respiratory effort, no accessory muscle use Cardiovascular: Heart regular in rate and rhythm, No murmurs, gallops, or rubs No peripheral edema Abdominal: Soft Nontender, no guarding, rebound or rigidity Abdomen moving with respiration Normoactive bowel sounds No hepatomegaly, No splenomegaly No palpable mass No abdominal wall hernia noted Skin: Normal temperature, tone, texture, turgor No induration No subcutaneous nodules No rash, lesions No ulcers Extremities: No digital cyanosis No clubbing Pedal pulses intact and symmetrical Radial pulses intact and symmetrical No calf tenderness Psychiatric: Alert and oriented to person, place and time Appropriate affect fair judgement Neuro Muscles Strength 5/5 in all 4 extremities Sensation to light touch grossly present throughout Cranial nerves II-XII grossly intact No focal sensory deficits Lymphatics: no palpable cervical or supraclavicular , or inguinal lymph nodes Results CBC & Chem 7: 11/17/21 19:52 11/17/21 19:52 Labs: Abnormal Lab Results - Last 24 Hours (Table) 11/17/21 11/17/21 Range/Units 19:52 19:52 RDW 17.3 H (11.5-15.5) % Potassium 3.2 L (3.5-5.1) mmol/L Glucose 146 H (74-99) mg/dL Assessment and Plan Assessment: atypical chest pain with history of CAD trend trops, negative X2 cardio consult heparin drip EKG st depression in inferior leads patient had extensive cardiac workup and was discharged yesterday opiates for pain control xanax for anxiety ASA, statin , plavix cardiac tele hypokalemia replace and follow up levels chronic conditions DM , insulin sliding scale CAD s/p CABG and stents last stent 2018 hypertension , resume home meds full code GI PPX ppi DVT PPX on heparin drip anticipated length of stay < 2midnights
[2021-11-17] MEDS: PANTOPRAZOLE 40 MG TABLET PO SCH (23:53)
[2021-11-17] MEDS: HYDROmorphone 1 MG/ML 1 ML SYRINGE IVP PRN (23:54)
[2021-11-18] MEDS: HYDROmorphone 1 MG/ML 1 ML SYRINGE IVP PRN ×4 (02:45→16:22)
[2021-11-18] MEDS: NITROGLYCERIN SL TABS 0.4 MG TAB SUBLINGUAL PRN ×3 (05:12→05:22)
[2021-11-18 06:14] LABS: Glucose,Whole Blood 126 mg/dL (75-99)
[2021-11-18] MEDS: INSULIN ASPART (NovoLOG) 100 UNIT/ML VIAL SQ SCH ×2 (06:16→12:16)
[2021-11-18] MEDS: PANTOPRAZOLE 40 MG TABLET PO SCH ×2 (06:21→16:22)
[2021-11-18] MEDS ORDERED: HEPARIN SODIUM,PORCINE 2,500 UNIT in SODIUM CHLORIDE 0.9% 250 ML IRRIGATION PRN (07:00)
[2021-11-18] MEDS ORDERED: HEPARIN SODIUM,PORCINE 10,000 UNIT in SODIUM CHLORIDE 0.9% 1,000 ML IRRIGATION PRN (07:00)
[2021-11-18] MEDS ORDERED: PANTOPRAZOLE 40 MG TABLET PO SCH (07:30)
[2021-11-18] MEDS ORDERED: ATORVASTATIN 80 MG TAB PO STA (08:11)
[2021-11-18] MEDS ORDERED: ALPRAZolam 0.5 MG TAB PO PRN (08:11)
[2021-11-18] MEDS ORDERED: NITROGLYCERIN SL TABS 0.4 MG TAB SUBLINGUAL PRN (08:11)
[2021-11-18] MEDS ORDERED: ASPIRIN 325 MG TAB PO STA (08:11)
[2021-11-18] MEDS ORDERED: ALPRAZolam 0.25 MG TAB PO PRN (08:11)
[2021-11-18] MEDS ORDERED: IV FLUID CONTINUATION 900 ML IV ONE (08:45)
[2021-11-18] MEDS ORDERED: fentaNYL (PF) 50 MCG/ML 2 ML AMP IV ONE (08:55)
[2021-11-18] MEDS ORDERED: MIDAZOLAM 2 MG/2 ML VIAL IV ONE (08:55)
[2021-11-18] MEDS ORDERED: LIDOCAINE 1% INJ 10MG/ML (20 ML MDV) SQ ONE (08:57)
[2021-11-18] MEDS ORDERED: ISOSORBIDE DINITRATE 10 MG TAB PO SCH (09:00)
[2021-11-18] MEDS ORDERED: ASPIRIN 325 MG TAB PO SCH (09:00)
[2021-11-18] MEDS ORDERED: ARIPiprazole 5 MG TAB PO SCH (09:00)
[2021-11-18] MEDS ORDERED: diphenhydrAMINE 25 MG CAP PO SCH (09:00)
[2021-11-18] MEDS ORDERED: RANOLAZINE 500 MG TAB.ER.12H PO SCH (09:00)
[2021-11-18] MEDS ORDERED: amLODIPine 10 MG TAB PO SCH (09:00)
[2021-11-18] MEDS ORDERED: METOPROLOL TARTRATE 50 MG TAB PO SCH (09:00)
[2021-11-18] MEDS ORDERED: ALPRAZolam 0.5 MG TAB PO SCH (09:00)
[2021-11-18] MEDS ORDERED: PREGABALIN 75 MG CAP PO SCH (09:00)
[2021-11-18] MEDS ORDERED: ESCITALOPRAM 20 MG TAB PO SCH (09:00)
[2021-11-18] MEDS ORDERED: CLOPIDOGREL 75 MG TAB PO SCH (09:00)
[2021-11-18] MEDS: ALBUTEROL NEBULIZED 2.5 MG/3 ML INHALATION SCH ×2 (09:18→13:01)
[2021-11-18] MEDS: IPRATROPIUM 0.5 MG/2.5 ML NEBU INHALATION SCH ×3 (09:19→16:25)
[2021-11-18] MEDS ORDERED: IOPAMIDOL-370 125ML BTL INJ ONE (09:20)
[2021-11-18] MEDS ORDERED: RX INFO: IV CONTRAST WAS GIVEN 1 EACH MISC MISCELLANE PRN (09:47)
[2021-11-18 10:00] LABS: Chol/HDL Ratio 3.94 Ratio
[2021-11-18] MEDS ORDERED: SODIUM CHLORIDE 0.9% 1,000 ML IV SCH (10:00)
--- NOTE | 2021-11-18 10:16 | P.CRDCN ---
History of Present Illness Consult date: 11/18/21 History of present illness: HISTORY OF PRESENT ILLNESS: This is a 51 year old female with a past medical history significant for coronary artery disease with previous CABG and stenting, hypertension, hyperlipidemia, and nicotine dependence. Patient does not follow with a perforator at [facility]. We have been asked to see the patient in consultation for chest pain. Patient examined at the bedside. Patient was recently hospitalized for chest pain. She underwent Patricia scan revealing clinical correlation recommended for stress-induced ischemic changes inferior lateral wall. Dyskinesia of the cardiac apex and inferior wall. Dr. Devlin reviewed the stress test and cleared the patient for discharge home and to follow up with Dr. Garcia. The patient presented back to the hospital with complaints of chest pain that radiated into her left arm and back. She was started on IV heparin. Records were obtained from [facility]. Patient had cardiac cath in 2018 with stenting to the circumflex. * EKG reveals sinus mechanism with ST depression throughout, however most prominent in inferior leads * Chest xray negative for acute process * Laboratory data: WBC 10.4. Hemoglobin 12.7. Platelet count 392. Sodium 140. Potassium 3.2. BUN 13. Creatinine 0.87. Troponin negative 3 * Current home cardiac medications include amlodipine 10 mg daily, Ranexa 1000 mg twice a day, metoprolol 50 mg twice a day, isosorbide 30 mg twice a day, Plavix 75 mg daily, Lipitor 80 mg daily, aspirin 81 mg daily * Most recent echocardiogram obtained November 13 2021 revealed ejection fraction greater than 55%, mild MR, mild TR REVIEW OF SYSTEMS: At the time of my exam: CONSTITUTIONAL: Denies fever or chills. HEENT: Denies blurred vision, vision changes, or eye pain. Denies hemoptysis CARDIOVASCULAR: Denies chest pain. Denies orthopnea. Denies PND. Denies palpitations RESPIRATORY: Denies shortness of breath. GASTROINTESTINAL: Denies abdominal pain. Denies nausea or vomiting. HEMATOLOGIC: Denies bleeding disorders. GENITOURINARY: Denies any blood in urine. SKIN: Denies pruitis. Denies rash. PHYSICAL EXAM: VITAL SIGNS: Reviewed. GENERAL: Well-developed in no acute distress. HEENT: Head is normocephalic. Pupils are equal, round. Sclerae anicteric. Mucous membranes of the mouth are moist. Neck supple. No JVD or thyromegaly LUNGS: Respirations even and unlabored. Lungs essentially clear to auscultation bilaterally. HEART: Regular rate and rhythm. S1 and S2 heard. ABDOMEN: Soft. Nondistended. Nontender. EXTREMITIES: Normal range of motion. No clubbing or cyanosis. Peripheral pulses intact. No lower extremity edema NEUROLOGIC: Awake and alert. Oriented x 3. ASSESSMENT: Chest pain Coronary artery disease with previous CABG and stenting Hypertension Hyperlipidemia Nicotine dependence PLAN: No need to repeat echo Continue IV heparin Patient to undergo cardiac cath today with Dr. Garcia Further recommendations pending patient course Nurse practitioner note has been reviewed by physician. Signing provider agrees with the documented findings, assessment, and plan of care. Past Medical History Past Medical History: Asthma, Coronary Artery Disease (CAD), COPD, Diabetes Mellitus, GERD/Reflux, Myocardial Infarction (AK), Osteoarthritis (OA) Additional Past Medical History / Comment(s): DDD Last Myocardial Infarction Date:: 2011 History of Any Multi-Drug Resistant Organisms: None Reported Past Surgical History: Coronary Bypass/CABG, Heart Catheterization With Stent Additional Past Surgical History / Comment(s): seven stents Past Anesthesia/Blood Transfusion Reactions: No Reported Reaction Date of Last Stent Placement:: 11/2018 Past Psychological History: Anxiety, Bipolar Smoking Status: Current every day smoker Past Alcohol Use History: Occasional Past Drug Use History: Marijuana - Past Family History Mother Family Medical History: Cancer Additional Family Medical History / Comment(s): Ovarian cancer Father Family Medical History: Congestive Heart Failure (CHF) Fmily Family Medical History: No Reported History Medications and Allergies Home Medications Medication Instructions Recorded Confirmed Type ALPRAZolam [Xanax] 0.5 mg PO TID 07/08/20 11/17/21 History Aspirin EC [Ecotrin Low Dose] 81 mg PO DAILY 07/08/20 11/17/21 History Atorvastatin [Lipitor] 80 mg PO HS 07/08/20 11/17/21 History Clopidogrel [Plavix] 75 mg PO DAILY 07/08/20 11/17/21 History Escitalopram [Lexapro] 20 mg PO DAILY 07/08/20 11/17/21 History Hydrocodone/Acetaminophen [[place] 1 tab PO TID 07/08/20 11/17/21 History 10-325] Metoprolol Tartrate [Lopressor] 50 mg PO BID 10/14/20 02/23/22 History Omeprazole 40 mg PO BID 07/08/20 11/17/21 History amLODIPine [Norvasc] 10 mg PO DAILY 07/08/20 11/17/21 History Albuterol Sulfate [Proair Hfa] 2 puff INHALATION RT-TID 12/20/20 11/17/21 History metFORMIN HCL [Glucophage] 1,000 mg PO BID 12/20/20 11/17/21 History Butalb/Acetaminophen/Caffeine 1 tab PO DAILY 11/12/21 11/17/21 History [Fioricet 50-325-40] Nitroglycerin Sl Tabs [Nitrostat] 0.4 mg SL Q5M PRN 11/12/21 11/17/21 History Pregabalin [Lyrica] 150 mg PO BID 11/12/21 11/17/21 History Tiotropium 2.5 Mcg/Puff [Spiriva 1 puff INHALATION RT-BID 11/12/21 11/17/21 History Respimat 2.5 Mcg] diphenhydrAMINE [Benadryl] 25 mg PO BID 11/12/21 11/17/21 History rOPINIRole HCL [Requip] 1 mg PO HS 11/12/21 11/17/21 History ARIPiprazole [Abilify] 5 mg PO DAILY 11/13/21 11/17/21 History Isosorbide Dinitrate 30 mg PO BID 11/13/21 11/17/21 History Ranolazine [Ranexa] 1,000 mg PO BID 11/13/21 11/17/21 History Allergies Allergy/AdvReac Type Severity Reaction Status Date / Time No Known Allergies Allergy Verified 11/12/21 17:23 Physical Exam Vitals: Vital Signs Temp Pulse Pulse Resp BP BP Pulse Ox 11/18/21 06:19 122/78 11/18/21 05:25 99/67 11/18/21 05:21 121/72 11/18/21 05:16 119/76 11/18/21 05:12 134/66 11/18/21 03:27 98.1 F 87 18 159/84 95 11/18/21 01:18 68 11/18/21 00:48 137/86 11/17/21 23:34 122/70 11/17/21 23:26 133/81 11/17/21 23:20 133/76 11/17/21 23:10 98.2 F 68 20 163/84 96 11/17/21 22:00 74 16 133/96 93 L 11/17/21 21:01 70 17 122/84 97 11/17/21 19:34 98.7 F 85 20 158/97 97 Intake and Output 11/17/21 11/18/21 11/18/21 22:59 06:59 14:59 Intake Total 100 Balance 100 Intake: IV 100 Oral 0 Other: # Voids 1 Weight 90.718 kg Results 11/17/21 19:52 11/17/21 19:52 Cardiac Enzymes 11/17/21 11/17/21 11/17/21 Range/Units 19:52 19:52 22:37 AST 25 (14-36) U/L Troponin I <0.012 <0.012 (0.000-0.034) ng/mL 11/18/21 Range/Units 02:40 AST (14-36) U/L Troponin I <0.012 (0.000-0.034) ng/mL Coagulation 11/17/21 11/18/21 Range/Units 19:52 02:40 PT 10.3 (9.0-12.0) sec APTT 22.1 45.4 H (22.0-30.0) sec CBC 11/17/21 Range/Units 19:52 WBC 10.4 (3.8-10.6) k/uL RBC 4.93 (3.80-5.40) m/uL Hgb 12.7 (11.4-16.0) gm/dL Hct 39.8 (34.0-46.0) % Plt Count 392 (150-450) k/uL Comprehensive Metabolic Panel 11/17/21 Range/Units 19:52 Sodium 140 (137-145) mmol/L Potassium 3.2 L (3.5-5.1) mmol/L Chloride 104 (98-107) mmol/L Carbon Dioxide 26 (22-30) mmol/L BUN 13 (7-17) mg/dL Creatinine 0.87 (0.52-1.04) mg/dL Glucose 146 H (74-99) mg/dL Calcium 10.1 (8.4-10.2) mg/dL AST 25 (14-36) U/L ALT 21 (4-34) U/L Alkaline Phosphatase 125 (38-126) U/L Total Protein 7.5 (6.3-8.2) g/dL Albumin 4.6 (3.5-5.0) g/dL Current Medications Generic Name Dose Route Start Last Admin Trade Name Freq PRN Reason Stop Dose Admin Albuterol Sulfate 2.5 mg 11/18/21 08:00 11/18/21 09:18 Albuterol Nebulized 2.5 Mg/3 Ml INHALATION Not Given RT-TID AMANDA Alprazolam 0.25 mg 11/18/21 08:11 Alprazolam 0.25 Mg Tab PO Q6HR PRN Mild Anxiety Alprazolam 0.5 mg 11/18/21 08:11 Alprazolam 0.5 Mg Tab PO Q6HR PRN Moderate Anxiety Amlodipine Besylate 10 mg 11/18/21 09:00 Amlodipine 10 Mg Tab PO DAILY AMANDA Aripiprazole 5 mg 11/18/21 09:00 Aripiprazole 5 Mg Tab PO DAILY [facility] Aspirin 81 mg 11/19/21 09:00 Aspirin 81 Mg PO DAILY AMANDA Atorvastatin Calcium 80 mg 11/18/21 21:00 Atorvastatin 80 Mg Tab PO HS [facility] Clopidogrel Bisulfate 75 mg 11/18/21 09:00 Clopidogrel 75 Mg Tab PO DAILY [facility] Diphenhydramine HCl 25 mg 11/18/21 09:00 Diphenhydramine 25 Mg Cap PO BID AMANDA Escitalopram Oxalate 20 mg 11/18/21 09:00 Escitalopram 20 Mg Tab PO DAILY AMANDA Heparin Sodium (Porcine) 0 unit 11/17/21 20:00 Heparin Sodium 1,000 Un/Ml (10ml Vl) IV PER PROTOCOL PRN Low PTT Protocol Hydromorphone HCl 0.5 mg 11/17/21 23:42 11/18/21 06:20 Hydromorphone 1 Mg/Ml 1 Ml Syringe IVP 0.5 mg Q3HR PRN Administration Pain Heparin Sodium (Porcine) 10, 1,001 mls @ 999 mls/hr 11/19/21 07:00 000 unit/ Sodium Chloride IRRIGATION 11/19/21 23:00 ONCE PRN INTRA-OP Heparin Sodium (Porcine) 2,500 250.5 mls @ 250 mls/hr 11/19/21 07:00 unit/ Sodium Chloride IRRIGATION 11/19/21 23:00 ONCE PRN INTRA-OP Sodium Chloride 1,000 mls @ 75 mls/hr 11/18/21 10:00 Saline 0.9% IV .[id number] [facility] Insulin Aspart 0 unit 11/18/21 07:30 11/18/21 06:16 Insulin Aspart (Novolog) 100 Unit/Ml Vial SQ Not Given ACHS AMANDA Protocol Ipratropium [place] 0.5 mg 11/18/21 08:00 11/18/21 09:19 Ipratropium 0.5 Mg/2.5 Ml Nebu INHALATION Not Given RT-QID [facility] Isosorbide Dinitrate 30 mg 11/18/21 09:00 Isosorbide Dinitrate 10 Mg Tab PO BID [facility] Metoprolol Tartrate 50 mg 11/18/21 09:00 Metoprolol Tartrate 50 Mg Tab PO BID [facility] Miscellaneous Information 1 each 11/18/21 09:47 Rx Info: Iv Contrast Was Given 1 Each Misc MISCELLANE 11/20/21 09:47 DAILY PRN Per Protocol Nitroglycerin 0.4 mg 11/17/21 21:44 11/18/21 05:22 Nitroglycerin Sl Tabs 0.4 Mg Tab SUBLINGUAL 0.4 mg Q5M PRN Administration Chest Pain Pantoprazole Sodium 40 mg 11/17/21 23:45 11/18/21 06:21 Pantoprazole 40 Mg Tablet PO 40 mg AC-BID AMANDA Administration Pregabalin 150 mg 11/18/21 09:00 Pregabalin 75 Mg Cap PO BID [facility] Ranolazine 1,000 mg 11/18/21 09:00 Ranolazine 500 Mg Tab.Er.12h PO BID [facility] Ropinirole HCl 1 mg 11/17/21 23:44 11/17/21 23:53 Ropinirole Hcl 1 Mg Tab PO 1 mg HS AMANDA Administration Intake and Output 11/17/21 11/18/21 11/18/21 22:59 06:59 14:59 Intake Total 100 Balance 100 Intake: IV 100 Oral 0 Other: # Voids 1 Weight 90.718 kg 11/17/21 19:52 11/17/21 19:52
[2021-11-18 12:08] LABS: Glucose,Whole Blood 168 mg/dL (75-99)
--- NOTE | 2021-11-18 13:19 | P.DS ---
Providers Date of admission: 11/17/21 21:44 Expected date of discharge: 11/18/21 Attending physician: Ander Mccain MD Consults: 11/17/21 21:44 Consult Physician Urgent Consulting Provider: González Devlin Consult Reason/Comments: unstable angina Do you want consulting provider notified?: Yes Primary care physician: Physician Nonstaff Hospital Course: Discharge Diagnosis: atypical chest pain with history of CAD mild hypokalemia Diabetes mellitus Coronary artery disease status post CABG and stents Hypertension Hospital Course: Patient is a 50-year-old female with a past medical history of coronary artery disease status post CABG and stents, diabetes and hypertension who was just discharged yesterday for atypical chest pain and returns back to the ED with chest pain. On last admission patient had a stress test that showed findings consistent with previous NC. There were no reversible defects noted. Patient was seen again by cardiology on this admission and she had a heart catheterization done. No intervention done during heart catheterization as patient did not have any significant coronary blockages. I discussed the case with cardiology who said okay to discharge from their standpoint. Patient instructed to follow cardiology as outpatient Patient seen and examined at bedside.[] Vital signs reviewed and stable. General: [non toxic], [no distress], [appears at stated age] Derm: [warm], [dry] Head: [atraumatic], [normocephalic], [symmetric] Eyes: [EOMI], [no lid lag], [anicteric sclera] Mouth: [no lip lesion], [mucus membranes moist] Cardiovascular: [S1S2 reg], [no murmur], [positive posterior tibial pulse bilateral], Lungs: [CTA bilateral], [no rhonchi, no rales] , [no accessory muscle use] Abdominal: [soft], [ nontender to palpation], [no guarding], [no appreciable organomegaly] Ext: [no gross muscle atrophy], [no edema], [no contractures] Neuro: [ CN II-XI grossly intact], [no focal neuro deficits] Psych: [Alert], [oriented], [appropriate affect] A total of [25] minutes of time were spent preparing this complex discharge summary . Patient Condition at Discharge: Fair Plan - Discharge Summary Discharge Rx Participant: No New Discharge Prescriptions: Continue Hydrocodone/Acetaminophen [[place] 10-325] 1 tab PO TID Escitalopram [Lexapro] 20 mg PO DAILY Aspirin EC [Ecotrin Low Dose] 81 mg PO DAILY amLODIPine [Norvasc] 10 mg PO DAILY Metoprolol Tartrate [Lopressor] 50 mg PO BID ALPRAZolam [Xanax] 0.5 mg PO TID Clopidogrel [Plavix] 75 mg PO DAILY Atorvastatin [Lipitor] 80 mg PO HS rOPINIRole HCL [Requip] 1 mg PO HS diphenhydrAMINE [Benadryl] 25 mg PO BID Butalb/Acetaminophen/Caffeine [Fioricet 50-325-40] 1 tab PO DAILY ARIPiprazole [Abilify] 5 mg PO DAILY Ranolazine [Ranexa] 1,000 mg PO BID Albuterol Sulfate [Proair Hfa] 2 puff INHALATION RT-TID metFORMIN HCL [Glucophage] 1,000 mg PO BID Pregabalin [Lyrica] 150 mg PO BID Tiotropium 2.5 Mcg/Puff [Spiriva Respimat 2.5 Mcg] 1 puff INHALATION RT-BID Nitroglycerin Sl Tabs [Nitrostat] 0.4 mg SL Q5M PRN PRN Reason: Chest Pain Isosorbide Dinitrate 30 mg PO BID Discontinued Omeprazole 40 mg PO BID Discharge Medication List ALPRAZolam [Xanax] 0.5 mg PO TID 07/08/20 [History] Aspirin EC [Ecotrin Low Dose] 81 mg PO DAILY 07/08/20 [History] Atorvastatin [Lipitor] 80 mg PO HS 07/08/20 [History] Clopidogrel [Plavix] 75 mg PO DAILY 07/08/20 [History] Escitalopram [Lexapro] 20 mg PO DAILY 07/08/20 [History] Hydrocodone/Acetaminophen [[place] 10-325] 1 tab PO TID 07/08/20 [History] Metoprolol Tartrate [Lopressor] 50 mg PO BID 07/08/20 [History] amLODIPine [Norvasc] 10 mg PO DAILY 07/08/20 [History] Albuterol Sulfate [Proair Hfa] 2 puff INHALATION RT-TID 12/20/20 [History] metFORMIN HCL [Glucophage] 1,000 mg PO BID 12/20/20 [History] Butalb/Acetaminophen/Caffeine [Fioricet 50-325-40] 1 tab PO DAILY 11/12/21 [History] Nitroglycerin Sl Tabs [Nitrostat] 0.4 mg SL Q5M PRN 11/12/21 [History] Pregabalin [Lyrica] 150 mg PO BID 11/12/21 [History] Tiotropium 2.5 Mcg/Puff [Spiriva Respimat 2.5 Mcg] 1 puff INHALATION RT-BID 11/12/21 [History] diphenhydrAMINE [Benadryl] 25 mg PO BID 11/12/21 [History] rOPINIRole HCL [Requip] 1 mg PO HS 11/12/21 [History] ARIPiprazole [Abilify] 5 mg PO DAILY 11/13/21 [History] Isosorbide Dinitrate 30 mg PO BID 11/13/21 [History] Ranolazine [Ranexa] 1,000 mg PO BID 11/13/21 [History] Follow up Appointment(s)/Referral(s): Nonstaff,Physician [Primary Care Provider] - 1-2 days Neena Garcia MD [STAFF PHYSICIAN] - 1 Week Discharge Disposition: HOME SELF-CARE
--- NOTE | 2021-11-18 13:41 | P.CARDCATH ---
Date of Procedure: 11/18/21 Preoperative Diagnosis: Chest pain and abnormal EKG Postoperative Diagnosis: Patent vein graft to the LAD, patent stent in the circumflex and mild disease in the RCA Procedure(s) Performed: Left heart catheterization without left ventriculography Description of Procedure: HISTORY: This is a 51-year-old female with history of ischemic heart disease with previous stent placement of the LAD and also proximal circumflex. Patient had previous bypass surgery with vein graft to the LAD and vein graft to circumflex. Patient had occluded vein graft to circumflex, according to the cath done in [place] and also totally occluded proximal LAD which was stented previously. Patient presented to the hospital second time with chest pain with some abnormal findings on the EKG and recent stress test. Advised to have cardiac catheterization for definitive diagnosis CONSENT:I have discussed the risks, benefits and alternative therapies for the above-mentioned procedure and for both sedation/analgesia as well as necessary blood product administration, if indicated, as they pertain to this patient. The patient has indicated understanding and acceptance of the risks and procedures discussed. [] PROCEDURE: Patient was brought to the lab in a fasting state. Patient was given some IV sedation. The right groin is infiltrated with lidocaine and right femoral artery was entered using Seldinger technique. A 6-German catheter was left in place and selective coronary arteriography was performed. Left ventriculography was not performed Patient tolerated the procedure well. Femoral angiogram was performed and manual compression was applied for hemostasis. No immediate complications were noted and patient was transferred to [facility] in a stable condition Conscious Sedation: Versed 1mg Fentanyl 25 g Duration 27minutes HEMODYNAMICS: The aortic pressure is about 120/70. SELECTIVE CORONARY ARTERIOGRAPHY: LEFT MAIN: Moderate in caliber and seemed to be free of any occlusive disease with a stent noted in the proximal circumflex THE LEFT ANTERIOR DESCENDING CORONARY ARTERY: Totally occluded at the ostium with evidence of previous stent placement THE LEFT CIRCUMFLEX AND IS CORONARY ARTERY:. This is a proximally patent at the stented area. Beyond that it appears to be small in caliber with about 40-50% stenosis THE RIGHT CORONARY ARTERY:. This is a moderate caliber vessel and dominant in distribution mild disease noted in the proximal and mid segments without any critical lesions. No THE VEIN GRAFT TO THE LAD: This is a huge caliber vessel and patent at the proximal and distal anastomosis. The distal LAD is small in caliber but free of occlusive disease. THE VEIN GRAFT TO THE CIRCUMFLEX: This is proximally totally occluded. LEFT VENTRICULOGRAPHY: Not performed FINAL IMPRESSION: Stable coronary artery disease with patent vein graft to the LAD. Total occluded graft to the circumflex but stent in the proximal circumflex is patent. Right coronary artery is mild disease PLAN: Maximum medical therapy and this factor modification PROGNOSIS: Fair
[2021-11-18 16:21] VITALS: BP 126/72; PULSE 51; RESP 17; TEMP 98
[2021-11-18 16:42] LABS: Glucose,Whole Blood 92 mg/dL (75-99)
[2021-11-18] MEDS ORDERED: ATORVASTATIN 80 MG TAB PO SCH (21:00)
[2021-11-19] MEDS ORDERED: ASPIRIN 81 MG PO SCH (09:00)
== END 2021-11-18 17:55 | disposition home or self-care (01) | DRG 287 ==
LOC: EC 19:30 → 3SCARD 21:44
PROVIDERS: ADMIT Internal Medicine; ATTEND Internal Medicine
PROC: B2151ZZ Fluoroscopy of Left Heart using Low Osmolar Contrast (ICD-10-PCS; 2021-11-18)
PROC: 4A023N7 Measurement of Cardiac Sampling and Pressure, Left Heart, Percutaneous Approach (ICD-10-PCS; principal; 2021-11-18 11:15)
DX: I25.110 Atherosclerotic heart disease of native coronary artery with unstable angina pectoris (principal); E11.9 Type 2 diabetes mellitus without complications; J44.9 Chronic obstructive pulmonary disease, unspecified; F31.9 Bipolar disorder, unspecified; Z20.822 Contact with and (suspected) exposure to COVID-19; E87.6 Hypokalemia; I08.1 Rheumatic disorders of both mitral and tricuspid valves; I10 Essential (primary) hypertension; K21.9 Gastro-esophageal reflux disease without esophagitis; I25.2 Old myocardial infarction; M19.90 Unspecified osteoarthritis, unspecified site; E78.5 Hyperlipidemia, unspecified; G24.9 Dystonia, unspecified; F41.9 Anxiety disorder, unspecified; F17.210 Nicotine dependence, cigarettes, uncomplicated; Z95.5 Presence of coronary angioplasty implant and graft; Z95.1 Presence of aortocoronary bypass graft; Z79.82 Long term (current) use of aspirin; Z79.899 Other long term (current) drug therapy; Z79.02 Long term (current) use of antithrombotics/antiplatelets; Z79.84 Long term (current) use of oral hypoglycemic drugs; Z80.41 Family history of malignant neoplasm of ovary; Z82.49 Family history of ischemic heart disease and other diseases of the circulatory system
CPT/HCPCS: 36415; 71045; 80053; 80061; 83690; 84484; 85025; 85610; 85730; 87635; 93005; 93458; 96374; 96375; 99291

== ENCOUNTER 2022-12-10 12:21 | Inpatient (IN) | payer OTHER ==
[2022-12-10] MEDS ORDERED: ASPIRIN 325 MG TAB PO STA (12:41)
[2022-12-10] MEDS ORDERED: CLOPIDOGREL 75 MG TAB PO STA (12:42)
--- NOTE | 2022-12-10 12:57 | ED ---
General Adult HPI - General Chief complaint: Chest Pain Stated complaint: chest pain Time Seen by Provider: 12/10/22 12:24 Source: patient, police, RN notes reviewed, old records reviewed Mode of arrival: EMS Limitations: no limitations - History of Present Illness Initial comments: 52-year-old female presenting for evaluation of substernal chest pain associated with nausea. Patient has significant past medical history including coronary artery disease status post bypass surgery and multiple stents. She had a heart catheterization performed approximately one year ago. She is on dual antiplatelet therapy. She has not been taking her medication because she has been in the [facility] for the past several days. The denies significant dyspnea. Denies fever. Symptoms began about 2 hours prior to arrival. - Related Data Home Medications Medication Instructions Recorded Confirmed Atorvastatin [Lipitor] 80 mg PO HS 07/08/20 12/10/22 ARIPiprazole [Abilify] 5 mg PO DAILY 11/13/21 12/10/22 Ranolazine [Ranexa] 1,000 mg PO BID 11/13/21 12/10/22 Albuterol Nebulized [Ventolin 2.5 mg INHALATION RT-TID PRN 12/10/22 12/10/22 Nebulized] Isosorbide Mononitrate ER [Imdur] 30 mg PO BID 12/10/22 12/10/22 Omeprazole 20 mg PO BID 12/10/22 12/10/22 lisinopriL [Zestril] 5 mg PO DAILY 12/10/22 12/10/22 Allergies Allergy/AdvReac Type Severity Reaction Status Date / Time No Known Allergies Allergy Verified 12/10/22 13:41 Review of Systems ROS Statement: Those systems with pertinent positive or pertinent negative responses have been documented in the HPI. ROS Other: All systems not noted in ROS Statement are negative. Past Medical History Past Medical History: Asthma, Coronary Artery Disease (CAD), COPD, Diabetes Mellitus, GERD/Reflux, Myocardial Infarction (NH), Osteoarthritis (OA) Additional Past Medical History / Comment(s): DDD Last Myocardial Infarction Date:: 2011 History of Any Multi-Drug Resistant Organisms: None Reported Past Surgical History: Coronary Bypass/CABG, Heart Catheterization With Stent Additional Past Surgical History / Comment(s): seven stents Past Anesthesia/Blood Transfusion Reactions: No Reported Reaction Date of Last Stent Placement:: 11/2018 Past Psychological History: Anxiety, Bipolar Smoking Status: Current every day smoker Past Alcohol Use History: Occasional Past Drug Use History: Marijuana - Past Family History Mother Family Medical History: Cancer Additional Family Medical History / Comment(s): Ovarian cancer Father Family Medical History: Congestive Heart Failure (CHF) Fmily Family Medical History: No Reported History General Exam Limitations: no limitations General appearance: alert, in no apparent distress Head exam: Present: atraumatic, normocephalic Eye exam: Present: normal appearance, PERRL ENT exam: Present: normal exam Neck exam: Present: normal inspection. Absent: tenderness Respiratory exam: Present: normal lung sounds bilaterally. Absent: respiratory distress, wheezes Cardiovascular Exam: Present: regular rate, normal rhythm GI/Abdominal exam: Present: soft. Absent: distended, tenderness Extremities exam: Present: normal inspection, normal capillary refill. Absent: pedal edema, calf tenderness Neurological exam: Present: alert, oriented X3, CN II-XII intact. Absent: motor sensory deficit Psychiatric exam: Present: normal affect, normal mood Skin exam: Present: warm, dry, intact. Absent: cyanosis, diaphoretic Course Vital Signs 12/10/22 12:23 Temperature 97.6 F Pulse Rate 82 Respiratory 18 Rate Blood Pressure 141/96 O2 Sat by Pulse 99 Oximetry EKG Findings - EKG Comments: EKG Findings:: EKG sinus rhythm ventricular rate of 61, WI interval 133, QRS duration 88, QTC 409, no ST segment elevation T waves are upright Medical Decision Making - Medical Decision Making Was pt. sent in by a medical professional or institution (, PA, FURNITURE MAKER, urgent care, hospital, or long term...) When possible be specific @ -No Did you speak to anyone other than the patient for history (EMS, parent, family, police, friend...)? What history was obtained from this source @ -No Did you review nursing and triage notes (agree or disagree)? Why? @ -I reviewed and agree with nursing and triage notes Were old charts reviewed (outside hosp., previous admission, EMS record, old EKG, old radiological studies, urgent care reports/EKG's, long term records)? Report findings @ -Previous heart cath, previous cardiology consultation Differential Diagnosis (chest pain, altered mental status, abdominal pain women, abdominal pain men, vaginal bleeding, weakness, fever, dyspnea, syncope, headache, dizziness, GI bleed, back pain, seizure, CVA, palpatations, mental health, musculoskeletal)? @ -Differential Chest Pain: Stable Angina, Unstable Angina, STEMI, NSTEMI Aortic Dissection, Pneumothorax, Musculoskeletal, Esophageal Spasm GERD, Cholecystitis, Pancreatitis, Zoster, this is not meant to be an all-inclusive list. EKG interpreted by me (3pts min.). @ -As above X-rays interpreted by me (1pt min.). @ -Chest x-ray reviewed by myself, no acute findings CT interpreted by me (1pt min.). @ -None done U/S interpreted by me (1pt. min.). @ -None done What testing was considered but not performed or refused? (CT, X-rays, U/S, labs)? Why? @ -None What meds were considered but not given or refused? Why? @ -None Did you discuss the management of the patient with other professionals (professionals i.e. , PA, FURNITURE MAKER, lab, RT, psych nurse, manager social services, media center director school, teacher, chairman president and chief executive officer, clinical case manager)? Give summary @ -Case discussed with Dr. Nelson who will admit Was smoking cessation discussed for >3mins.? @ -No Was critical care preformed (if so, how long)? @ -No Were there social determinants of health that impacted care today? How? (Homelessness, low income, unemployed, alcoholism, drug addiction, transportation, low edu. Level, literacy, decrease access to med. care, assisted, rehab)? @ -Sheet currently in the [facility] Was there de-escalation of care discussed even if they declined (Discuss DNR or withdrawal of care, Hospice)? DNR status @ -No What co-morbidities impacted this encounter? (DM, HTN, Smoking, COPD, CAD, Cancer, CVA, ARF, Chemo, Hep., AIDS, mental health diagnosis, sleep apnea, morbid obesity)? @ -Hypertension, CAD Was patient admitted / discharged? Hospital course, mention meds given and route, prescriptions, significant lab abnormalities, going to OR and other pertinent info. @ -52-year-old female with known coronary artery disease status post stenting and bypass surgery presenting with upper chest pain pain had been present for approximately 2 hours at the time of arrival. Patient's has an EKG showing sinus rhythm without definitive signs of ischemia. Chest x-ray is clear without acute findings. She has normal CBC, normal CMP, negative initial troponin. She's given aspirin and given her dose of Plavix in the emergency department. She will be admitted for serial cardiac enzymes, telemetry, cardiology consultation. Undiagnosed new problem with uncertain prognosis? @ -No Drug Therapy requiring intensive monitoring for toxicity (Heparin, Nitro, Insulin, Cardizem)? @ -No Were any procedures done? @ -No Diagnosis/symptom? @ -CP Acute, or Chronic, or Acute on Chronic? @ -acute Uncomplicated (without systemic symptoms) or Complicated (systemic symptoms)? @ -Complicated Side effects of treatment? @ -No Exacerbation, Progression, or Severe Exacerbation? @ -No Poses a threat to life or bodily function? How? (Chest pain, USA, NH, pneumonia, PE, COPD, DKA, ARF, appy, cholecystitis, CVA, Diverticulitis, Homicidal, Suicidal, threat to staff... and all critical care pts) @ -Yes chest pain, risk of coronary ischemia, arrhythmia, sudden cardiac - Lab Data Result diagrams: 12/10/22 12:34 12/10/22 12:34 Lab Results 12/10/22 12/10/22 12/10/22 Range/Units 12:34 12:34 12:34 WBC 9.0 (3.8-10.6) k/uL RBC 5.21 (3.80-5.40) m/uL Hgb 14.3 (11.4-16.0) gm/dL Hct 43.9 (34.0-46.0) % MCV 84.3 (80.0-100.0) fL MCH 27.4 (25.0-35.0) pg MCHC 32.5 (31.0-37.0) g/dL RDW 16.7 H (11.5-15.5) % Plt Count 346 (150-450) k/uL MPV 8.1 Neutrophils % 55 % Lymphocytes % 34 % Monocytes % 7 % Eosinophils % 1 % Basophils % 1 % Neutrophils # 5.0 (1.3-7.7) k/uL Lymphocytes # 3.0 (1.0-4.8) k/uL Monocytes # 0.6 (0-1.0) k/uL Eosinophils # 0.1 (0-0.7) k/uL Basophils # 0.1 (0-0.2) k/uL Anisocytosis Slight PT 9.8 (9.0-12.0) sec INR 0.9 (<1.2) APTT 22.1 (22.0-30.0) sec Sodium 142 (137-145) mmol/L Potassium 4.4 (3.5-5.1) mmol/L Chloride 107 (98-107) mmol/L Carbon Dioxide 25 (22-30) mmol/L Anion Gap 10 mmol/L BUN 14 (7-17) mg/dL Creatinine 0.75 (0.52-1.04) mg/dL Est GFR (CKD-EPI)AfAm >90 (>60 ml/min/1.73 sqM) Est GFR (CKD-EPI)NonAf >90 (>60 ml/min/1.73 sqM) Glucose 95 (74-99) mg/dL Calcium 10.4 H (8.4-10.2) mg/dL Magnesium 2.1 (1.6-2.3) mg/dL Total Bilirubin 1.2 (0.2-1.3) mg/dL AST 43 H (14-36) U/L ALT 36 H (4-34) U/L Alkaline Phosphatase 172 H (38-126) U/L Troponin I (0.000-0.034) ng/mL NT-Pro-B Natriuret Pep pg/mL Total Protein 8.2 (6.3-8.2) g/dL Albumin 5.1 H (3.5-5.0) g/dL 12/10/22 12/10/22 Range/Units 12:34 12:34 WBC (3.8-10.6) k/uL RBC (3.80-5.40) m/uL Hgb (11.4-16.0) gm/dL Hct (34.0-46.0) % MCV (80.0-100.0) fL MCH (25.0-35.0) pg MCHC (31.0-37.0) g/dL RDW (11.5-15.5) % Plt Count (150-450) k/uL MPV Neutrophils % % Lymphocytes % % Monocytes % % Eosinophils % % Basophils % % Neutrophils # (1.3-7.7) k/uL Lymphocytes # (1.0-4.8) k/uL Monocytes # (0-1.0) k/uL Eosinophils # (0-0.7) k/uL Basophils # (0-0.2) k/uL Anisocytosis PT (9.0-12.0) sec INR (<1.2) APTT (22.0-30.0) sec Sodium (137-145) mmol/L Potassium (3.5-5.1) mmol/L Chloride (98-107) mmol/L Carbon Dioxide (22-30) mmol/L Anion Gap mmol/L BUN (7-17) mg/dL Creatinine (0.52-1.04) mg/dL Est GFR (CKD-EPI)AfAm (>60 ml/min/1.73 sqM) Est GFR (CKD-EPI)NonAf (>60 ml/min/1.73 sqM) Glucose (74-99) mg/dL Calcium (8.4-10.2) mg/dL Magnesium (1.6-2.3) mg/dL Total Bilirubin (0.2-1.3) mg/dL AST (14-36) U/L ALT (4-34) U/L Alkaline Phosphatase (38-126) U/L Troponin I <0.012 (0.000-0.034) ng/mL NT-Pro-B Natriuret Pep 115 pg/mL Total Protein (6.3-8.2) g/dL Albumin (3.5-5.0) g/dL Disposition Clinical Impression: Chest pain Disposition: ADMITTED IP TO THIS [facility] Condition: Stable Is patient prescribed a controlled substance at d/c from ED?: No Referrals: Nonstaff,Physician [REFERRING] - 1-2 days Time of Disposition: 14:06
--- NOTE | 2022-12-10 12:59 | XR ---
EXAMINATION TYPE: XR chest 2V DATE OF EXAM: 12/10/2022 COMPARISON: 11/17/2021 HISTORY: 52-year-old female with chest pain TECHNIQUE: PA and lateral views FINDINGS: Median sternotomy wires are present with post-CABG clips. Coronary stents are noted. Mild hyperinflat ion. The cardiomediastinal silhouette, aorta, and pulmonary vasculature are within normal limits. Lindy gs and pleural spaces are clear. IMPRESSION: Mild hyperinflation which may relate to depth of inspiration underlying emphysema. Post-CABG changes. Underlying coronary stents. No acute cardiopulmonary process.
[2022-12-10 13:10] LABS: Anisocytosis Slight; Basophils # (A) 0.1 k/uL (0-0.2); Basophils % (A) 1 %; Eosinophils # (A) 0.1 k/uL (0-0.7); Eosinophils % (A) 1 %; HCT 43.9 % (34.0-46.0); HGB 14.3 gm/dL (11.4-16.0); Lymphocytes % (A) 34 %; MCH 27.4 pg (25.0-35.0); MCHC 32.5 g/dL (31.0-37.0); MCV 84.3 fL (80.0-100.0); Mean Platelet Volume 8.1; Monocytes # (A) 0.6 k/uL (0-1.0); Monocytes % (A) 7 %; Neutrophils % (A) 55 %; Platelet Count 346 k/uL (150-450); RBC 5.21 m/uL (3.80-5.40); RDW 16.7 % (11.5-15.5)
[2022-12-10 13:16] LABS: Potassium 4.4 mmol/L (3.5-5.1)
[2022-12-10 13:17] LABS: ALT 36 U/L (4-34); AST 43 U/L (14-36); African American GFR (CKD) >90 (>60 ml/min/1.73 sqM); Albumin 5.1 g/dL (3.5-5.0); Alkaline Phosphatase 172 U/L (38-126); Anion Gap 10 mmol/L; Blood Urea Nitrogen 14 mg/dL (7-17); Calcium 10.4 mg/dL (8.4-10.2); Carbon Dioxide 25 mmol/L (22-30); Chloride 107 mmol/L (98-107); Glucose 95 mg/dL (74-99); Magnesium 2.1 mg/dL (1.6-2.3); Non-African American GFR(CKD) >90 (>60 ml/min/1.73 sqM); Sodium 142 mmol/L (137-145); Total Bilirubin 1.2 mg/dL (0.2-1.3); Total Protein 8.2 g/dL (6.3-8.2)
[2022-12-10 13:25] LABS: INR 0.9 (<1.2); Partial Thromboplastin Time 22.1 sec (22.0-30.0); Prothrombin Time 9.8 sec (9.0-12.0)
[2022-12-10] MEDS ORDERED: NALOXONE 0.4 MG/ML 1 ML VIAL IV PRN (14:01)
[2022-12-10] MEDS: MORPHINE SULFATE 4 MG/ML SYRINGE IV PRN ×2 (14:15→19:54)
[2022-12-10] MEDS ORDERED: ALBUTEROL NEBULIZED 2.5 MG/3 ML INHALATION PRN (17:04)
[2022-12-10] MEDS ORDERED: IPRATROPIUM 0.5 MG/2.5 ML NEBU INHALATION PRN (17:04)
[2022-12-10 17:21] LABS: Glucose,Whole Blood 110 mg/dL (70-110)
[2022-12-10] MEDS: ONDANSETRON 4 MG/2 ML VIAL IVP PRN (20:06)
[2022-12-10] MEDS: ISOSORBIDE MONONITRATE ER 30 MG TAB.ER.24H PO SCH (20:07)
[2022-12-10] MEDS: HEPARIN SODIUM,PORCINE/PF 5,000 UNIT/0.5 ML SYRINGE SQ SCH (20:07)
[2022-12-10] MEDS: RANOLAZINE 500 MG TAB.ER.12H PO SCH (20:07)
[2022-12-10] MEDS: ATORVASTATIN 80 MG TAB PO SCH (20:07)
[2022-12-10 22:01] LABS: Glucose,Whole Blood 117 mg/dL (70-110)
--- NOTE | 2022-12-10 23:13 | P.HPIM ---
History of Present Illness H&P Date: 12/10/22 Chief Complaint: Chest pain Patient is a 52-year-old female with a known history of coronary artery disease with stent placement x6, coronary artery bypass graft, COPD, diabetes type 2 [id number] history of DC, osteoarthritis, anxiety/bipolar disorder and currently on day smoker and history of marijuana use was brought to the hospital due to complaints of chest pain. Patient states that she developed chest pain around 10:30 AM mainly left retrosternal squeezing type pain with radiation to the left arm and tingling sensation of the fingers. Patient also states that she had a jaw pain as well. Associate with nausea and cold sweats. Symptoms lasted about 5 minutes. Denies any complaints of dizziness or lightheadedness. No cough or sputum production. Denies any recent illnesses. Denies any shortness of breath. Patient is currently not taking medications because she has been in the [facility] for the past several days. EKG showed sinus rhythm. Chest x-ray showed mild hyperinflation which may relate to depth of inspiration underlying emphysema. Laboratory data showed WBC 9.0 hemoglobin 14.3 and platelets 346 sodium 142 potassium 4.4. 107 bicarb is 25 BUN 14 and creatinine 0.75 calcium 10.4 AST 43 ALT 36 and alk phos 172. Troponin x2 negative and proBNP is 115. Review of Systems Constitutional: Patient denies any fever or chills . no Generalized weakness. Abdomen: Patient denied any nausea or vomiting or abd. pain Cardiovascular: Patient did have chest pain. No short of breath no palpitations. No leg swelling Respiratory: patient denied any cough . no sputum production. No shortness of breath Neurologic: Patient denied any numbness or tingling headache. Musculoskeletal: Patient denies any complaints of joint swelling or deformity. Skin: Negative Psychiatric: Negative Endocrine: No heat or cold intolerance. No recent weight gain. Genitourinary: No dysuria or hematuria. All other 14 point ROS negative except the above Past Medical History Past Medical History: Asthma, Coronary Artery Disease (CAD), COPD, Diabetes Mellitus, GERD/Reflux, Myocardial Infarction (DC), Osteoarthritis (OA) Additional Past Medical History / Comment(s): DDD Last Myocardial Infarction Date:: 2011 History of Any Multi-Drug Resistant Organisms: None Reported Past Surgical History: Coronary Bypass/CABG, Heart Catheterization With Stent Additional Past Surgical History / Comment(s): seven stents Past Anesthesia/Blood Transfusion Reactions: No Reported Reaction Date of Last Stent Placement:: 11/2018 Past Psychological History: Anxiety, Bipolar Smoking Status: Current every day smoker Past Alcohol Use History: Occasional Additional Past Alcohol Use History / Comment(s): 5 cigarettes per day Past Drug Use History: Marijuana - Past Family History Mother Family Medical History: Cancer Additional Family Medical History / Comment(s): Ovarian cancer Father Family Medical History: Congestive Heart Failure (CHF) Fmily Family Medical History: No Reported History Medications and Allergies Home Medications Medication Instructions Recorded Confirmed Type Atorvastatin [Lipitor] 80 mg PO HS 07/08/20 12/10/22 History ARIPiprazole [Abilify] 5 mg PO DAILY 11/13/21 12/10/22 History Ranolazine [Ranexa] 1,000 mg PO BID 11/13/21 12/10/22 History Albuterol Nebulized [Ventolin 2.5 mg INHALATION RT-TID PRN 12/10/22 12/10/22 History Nebulized] Isosorbide Mononitrate ER [Imdur] 30 mg PO BID 12/10/22 12/10/22 History Omeprazole 20 mg PO BID 12/10/22 12/10/22 History lisinopriL [Zestril] 5 mg PO DAILY 12/10/22 12/10/22 History Allergies Allergy/AdvReac Type Severity Reaction Status Date / Time No Known Allergies Allergy Verified 12/10/22 13:41 Physical Exam Vitals: Vital Signs Temp Pulse Pulse Resp BP BP Pulse Ox 12/10/22 16:25 98 F 69 16 133/90 98 12/10/22 14:26 96 18 141/69 98 12/10/22 12:23 97.6 F 82 18 141/96 99 Intake and Output 12/10/22 12/10/22 12/10/22 06:59 14:59 22:59 Other: Weight 93.894 kg 93.894 kg PHYSICAL EXAMINATION: Patient is lying in the bed comfortably, no acute distress, awake alert and oriented.. HEENT: Normocephalic. Neck is supple. Pupils reactive. Nostrils clear. Oral cav ity is moist. Neck reveals no JVD, carotid bruits, or thyromegaly. CHEST EXAMINATION: Trachea is central. Symmetrical expansion. Patient does have bilateral expiratory wheezing. No rhonchi or crackles. Nonlabored breathing.. CARDIAC: Normal S1, S2 with no gallops. No murmurs ABDOMEN: Soft. Bowel sounds present. Nontender. No organomegaly. No abdominal bruits. Extremities: reveal no edema. No clubbing or cyanosis Neurologically awake, alert, oriented x3 with well-coordinated movements. No focal deficits noted Skin: No rash or skin lesions. Psychiatric: Coperative. Nonsuicidal, Musculoskeletal: No joint swelling or deformity. Normal range of motion. Results CBC & Chem 7: 12/10/22 12:34 12/10/22 12:34 Labs: Abnormal Lab Results - Last 24 Hours (Table) 12/10/22 12/10/22 Range/Units 12:34 12:34 RDW 16.7 H (11.5-15.5) % Calcium 10.4 H (8.4-10.2) mg/dL AST 43 H (14-36) U/L ALT 36 H (4-34) U/L Alkaline Phosphatase 172 H (38-126) U/L Albumin 5.1 H (3.5-5.0) g/dL Thrombosis Risk Factor Assmnt - DVT/VTE Prophylaxis DVT/VTE Prophylaxis: Pharmacologic Prophylaxis ordered - Choose All That Apply Each Factor Represents 1 point: Age 41-60 years Each Risk Factor Represents 3 Points: History of DVT/PE Thrombosis Risk Factor Assessment Total Risk Factor Score: 4 Thrombosis Risk Factor Assessment Level: Moderate Risk Assessment and Plan Assessment: Chest pain with history of coronary artery disease and multiple stent placement History of CABG about 1 year ago COPD GERD Diabetes type 2 [id number] History of DC Osteoarthritis Anxiety/ bipolar disorder Currently everyday smoker and occasional marijuana use DVT prophylaxis with heparin subcu Plan: Patient will continue on telemetry monitoring. EKG and troponin x2 negative. Follow-up third troponin. Patient will be started back on her home medications including aspirin, statins, ranolazine and Imdur. Cardiology was consulted Continue with breathing treatments. Patient is currently on room air. Follow-up closely. Time with Patient: Greater than 30
[2022-12-11] MEDS: MORPHINE SULFATE 4 MG/ML SYRINGE IV PRN ×4 (03:23→22:05)
[2022-12-11] MEDS: PANTOPRAZOLE 40 MG TABLET PO SCH (06:30)
--- NOTE | 2022-12-11 07:57 | US ---
EXAMINATION TYPE: US liver DATE OF EXAM: 12/11/2022 COMPARISON: NONE CLINICAL HISTORY: 52-year-old female elevated Liver Enzymes. Chest pain/tightness. Abnormal labs. TECHNIQUE: Multiple sonographic images of the right upper quadrant are obtained. FINDINGS: EXAM MEASUREMENTS: Liver Length: 14.9 cm Gallbladder Wall: 0.1 cm CBD: 0.4 cm Right Kidney: 10.0 x 4.3 x 5.6 cm Pancreas: Limited visualization of the pancreatic tail due to bowel gas shadowing. Visualized portio ns within normal limits. Liver: slightly echogenic and attenuating. No focal lesion seen. Gallbladder: Mildly hydropic measuring 5.1 cm wide. No shadowing calculi, wall thickening, or surrou nding fluid. Evidence for sonographic Rose's sign: neg CBD: wnl Right Kidney: No hydronephrosis or masses seen IMPRESSION: 1. There may be mild fatty infiltration of the liver. 2. No gallstones or biliary ductal dilatation. 3. Mild gallbladder hydrops may be due to fasting state. Recommend clinical confirmation. No gallston es or ancillary imaging findings of acute cholecystitis. If concern for early acute cholecystitis, fo llow-up ultrasound or HIDA scan.
--- NOTE | 2022-12-11 08:21 | P.CRDCN ---
History of Present Illness History of present illness: HISTORY OF PRESENT ILLNESS: This is a 52 year old female with a past medical history significant for coronary artery disease with previous CABG and stenting, DM2, hypertension, hyperlipidemia, and nicotine dependence. Patient does not follow with a pre coder at [facility]. Patient currently has been in group home over the last 4 days for contempt of court. She therefore has not been receiving any of her home medications over the last 3 days. She states a day ago she started having persistent chest pain radiating into her arm and jaw similar to her prior angina. She admits the pain medications have helped. She was also placed back on some of her home medications however some of these are missing including metoprolol and Metformin. Patient had undergone heart catheterization November 14 tried to which showed patent vein graft to LAD and known occluded vein graft to circumflex. Prior stress test that shown ischemia in the inferolateral wall. REVIEW OF SYSTEMS: At the time of my exam: CONSTITUTIONAL: Denies fever or chills. HEENT: Denies blurred vision, vision changes, or eye pain. Denies hemoptysis CARDIOVASCULAR: +chest pain. Denies orthopnea. Denies PND. Denies palpitations RESPIRATORY: Denies shortness of breath. GASTROINTESTINAL: Denies abdominal pain. Denies nausea or vomiting. HEMATOLOGIC: Denies bleeding disorders. GENITOURINARY: Denies any blood in urine. SKIN: Denies pruitis. Denies rash. PHYSICAL EXAM: VITAL SIGNS: Reviewed. GENERAL: Well-developed in no acute distress. HEENT: Head is normocephalic. Pupils are equal, round. Sclerae anicteric. Mucous membranes of the mouth are moist. Neck supple. No JVD or thyromegaly LUNGS: Respirations even and unlabored. Lungs essentially clear to auscultation bilaterally. HEART: Regular rate and rhythm. S1 and S2 heard. ABDOMEN: Soft. Nondistended. Nontender. EXTREMITIES: Normal range of motion. No clubbing or cyanosis. Peripheral pulses intact. No lower extremity edema NEUROLOGIC: Awake and alert. Oriented x 3. ASSESSMENT: Chest pain consistent with angina Coronary artery disease with previous CABG and stenting Hypertension Hyperlipidemia Nicotine dependence DM2 PLAN: Patient having chest pain similar to her prior angina which has occurred 4 days after stopping her medications. Chest pain likely related to an revascularized circumflex territory and chronic angina. Restart home antianginal medications and monitor response. Check repeat stress test for completeness sake. If no other significant ischemia other than inferior lateral wall likely discharge home tomorrow. Past Medical History Past Medical History: Asthma, Coronary Artery Disease (CAD), COPD, Diabetes Mellitus, GERD/Reflux, Myocardial Infarction (HI), Osteoarthritis (OA) Additional Past Medical History / Comment(s): DDD Last Myocardial Infarction Date:: 2011 History of Any Multi-Drug Resistant Organisms: None Reported Past Surgical History: Coronary Bypass/CABG, Heart Catheterization With Stent Additional Past Surgical History / Comment(s): seven stents Past Anesthesia/Blood Transfusion Reactions: No Reported Reaction Date of Last Stent Placement:: 11/2018 Past Psychological History: Anxiety, Bipolar Smoking Status: Current every day smoker Past Alcohol Use History: Occasional Additional Past Alcohol Use History / Comment(s): 5 cigarettes per day Past Drug Use History: Marijuana - Past Family History Mother Family Medical History: Cancer Additional Family Medical History / Comment(s): Ovarian cancer Father Family Medical History: Congestive Heart Failure (CHF) Fmily Family Medical History: No Reported History Medications and Allergies Home Medications Medication Instructions Recorded Confirmed Type Atorvastatin [Lipitor] 80 mg PO HS 07/08/20 12/10/22 History ARIPiprazole [Abilify] 5 mg PO DAILY 11/13/21 12/10/22 History Ranolazine [Ranexa] 1,000 mg PO BID 11/13/21 12/10/22 History Albuterol Nebulized [Ventolin 2.5 mg INHALATION RT-TID PRN 12/10/22 12/10/22 History Nebulized] Isosorbide Mononitrate ER [Imdur] 30 mg PO BID 12/10/22 12/10/22 History Omeprazole 20 mg PO BID 12/10/22 12/10/22 History lisinopriL [Zestril] 5 mg PO DAILY 12/10/22 12/10/22 History Allergies Allergy/AdvReac Type Severity Reaction Status Date / Time No Known Allergies Allergy Verified 12/10/22 13:41 Physical Exam Vitals: Vital Signs Temp Pulse Pulse Resp BP BP Pulse Ox 12/11/22 07:00 97.9 F 95 16 100/67 96 12/11/22 03:08 98.3 F 74 16 94/59 95 12/10/22 20:00 69 16 12/10/22 19:40 97.7 F 83 19 132/83 96 12/10/22 16:25 98 F 69 16 133/90 98 12/10/22 14:26 96 18 141/69 98 12/10/22 12:23 97.6 F 82 18 141/96 99 Intake and Output 12/10/22 12/11/22 12/11/22 22:59 06:59 14:59 Other: # Voids 1 1 Weight 93.894 kg Results 12/10/22 12:34 12/10/22 12:34 Cardiac Enzymes 12/10/22 12/10/22 12/10/22 Range/Units 12:34 12:34 15:26 AST 43 H (14-36) U/L Troponin I <0.012 <0.012 (0.000-0.034) ng/mL 12/10/22 Range/Units 19:26 AST (14-36) U/L Troponin I 0.018 (0.000-0.034) ng/mL Coagulation 12/10/22 Range/Units 12:34 PT 9.8 (9.0-12.0) sec APTT 22.1 (22.0-30.0) sec CBC 12/10/22 Range/Units 12:34 WBC 9.0 (3.8-10.6) k/uL RBC 5.21 (3.80-5.40) m/uL Hgb 14.3 (11.4-16.0) gm/dL Hct 43.9 (34.0-46.0) % Plt Count 346 (150-450) k/uL Comprehensive Metabolic Panel 12/10/22 Range/Units 12:34 Sodium 142 (137-145) mmol/L Potassium 4.4 (3.5-5.1) mmol/L Chloride 107 (98-107) mmol/L Carbon Dioxide 25 (22-30) mmol/L BUN 14 (7-17) mg/dL Creatinine 0.75 (0.52-1.04) mg/dL Glucose 95 (74-99) mg/dL Calcium 10.4 H (8.4-10.2) mg/dL AST 43 H (14-36) U/L ALT 36 H (4-34) U/L Alkaline Phosphatase 172 H (38-126) U/L Total Protein 8.2 (6.3-8.2) g/dL Albumin 5.1 H (3.5-5.0) g/dL Current Medications Generic Name Dose Route Start Last Admin Trade Name Freq PRN Reason Stop Dose Admin Acetaminophen 650 mg 12/10/22 14:01 Acetaminophen Tab 325 Mg Tab PO Q6HR PRN Mild Pain or Fever > 100.5 Albuterol Sulfate 2.5 mg 12/10/22 17:04 Albuterol Nebulized 2.5 Mg/3 Ml INHALATION RT-TID PRN Shortness Of Breath Aripiprazole 5 mg 12/11/22 09:00 Aripiprazole 5 Mg Tab PO DAILY AMANDA Atorvastatin Calcium 80 mg 12/10/22 21:00 12/10/22 20:07 Atorvastatin 80 Mg Tab PO 80 mg HS AMANDA Administration Heparin Sodium (Porcine) 5,000 unit 12/11/22 00:00 12/10/22 20:07 Heparin Sodium,Porcine/Pf 5,000 Unit/0.5 Ml Syringe SQ 5,000 unit Q8HR AMANDA Administration Ipratropium [place] 0.5 mg 12/10/22 17:04 Ipratropium 0.5 Mg/2.5 Ml Nebu INHALATION RT-QID PRN Shortness Of Breath Or Wheezing Isosorbide Mononitrate 30 mg 12/10/22 21:00 12/10/22 20:07 Isosorbide Mononitrate Er 30 Mg Tab.Er.24h PO 30 mg BID AMANDA Administration Lisinopril 5 mg 12/11/22 09:00 Lisinopril 5 Mg Tab PO DAILY [facility] Morphine Sulfate 4 mg 12/10/22 14:01 12/11/22 03:23 Morphine Sulfate 4 Mg/Ml Syringe IV 4 mg Q4HR PRN Administration Severe Pain (Scale 7 to 10) Naloxone HCl 0.2 mg 12/10/22 14:01 Naloxone 0.4 Mg/Ml 1 Ml Vial IV Q2M PRN Opioid Reversal Ondansetron HCl 4 mg 12/10/22 14:01 12/10/22 20:06 Ondansetron 4 Mg/2 Ml Vial IVP 4 mg Q8HR PRN Administration Nausea And Vomiting Pantoprazole Sodium 40 mg 12/11/22 07:30 12/11/22 06:30 Pantoprazole 40 Mg Tablet PO 40 mg DAILY@0730 AMANDA Administration Ranolazine 1,000 mg 12/10/22 21:00 12/10/22 20:07 Ranolazine 500 Mg Tab.Er.12h PO 1,000 mg BID AMANDA Administration Intake and Output 12/10/22 12/11/22 12/11/22 22:59 06:59 14:59 Other: # Voids 1 1 Weight 93.894 kg 12/10/22 12:34 12/10/22 12:34
[2022-12-11] MEDS: lisinopriL 5 MG TAB PO SCH (09:13)
[2022-12-11] MEDS: RANOLAZINE 500 MG TAB.ER.12H PO SCH ×2 (09:13→22:07)
[2022-12-11] MEDS: METOPROLOL SUCCINATE (ER) 25 MG TAB.ER.24H PO SCH (09:13)
[2022-12-11] MEDS: ARIPiprazole 5 MG TAB PO SCH (09:13)
[2022-12-11] MEDS: ISOSORBIDE MONONITRATE ER 30 MG TAB.ER.24H PO SCH ×2 (09:13→22:07)
[2022-12-11] MEDS: HEPARIN SODIUM,PORCINE/PF 5,000 UNIT/0.5 ML SYRINGE SQ SCH ×3 (09:14→22:07)
[2022-12-11 09:53] LABS: Hepatitis A Antibody IgM Nonreactive (Nonreactive); Hepatitis B Core IgM Nonreactive (Nonreactive); Hepatitis B Surface Antigen Nonreactive (Nonreactive); Hepatitis C IgG Antibody Nonreactive (Nonreactive)
[2022-12-11 12:25] LABS: Glucose,Whole Blood 105 mg/dL (70-110)
[2022-12-11 17:24] LABS: Glucose,Whole Blood 94 mg/dL (70-110)
[2022-12-11 21:09] LABS: Glucose,Whole Blood 100 mg/dL (70-110)
[2022-12-11] MEDS: ATORVASTATIN 80 MG TAB PO SCH (22:07)
[2022-12-11] MEDS: ACETAMINOPHEN TAB 325 MG TAB PO PRN (22:08)
--- NOTE | 2022-12-12 01:31 | P.PN ---
Subjective Progress Note Date: 12/11/22 Patient is a 52-year-old female with a known history of coronary artery disease with stent placement x6, coronary artery bypass graft, COPD, diabetes type 2 acd-opadtmo-dgegwhqnd history of [place], osteoarthritis, anxiety/bipolar disorder and currently on day smoker and history of marijuana use was brought to the hospital due to complaints of chest pain. Patient states that she developed chest pain around 10:30 AM mainly left retrosternal squeezing type pain with radiation to the left arm and tingling sensation of the fingers. Patient also states that she had a jaw pain as well. Associate with nausea and cold sweats. Symptoms lasted about 5 minutes. Denies any complaints of dizziness or lightheadedness. No cough or sputum production. Denies any recent illnesses. Denies any shortness of breath. Patient is currently not taking medications because she has been in the [facility] skilled nursing for the past several days. EKG showed sinus rhythm. Chest x-ray showed mild hyperinflation which may relate to depth of inspiration underlying emphysema. Laboratory data showed WBC 9.0 hemoglobin 14.3 and platelets 346 sodium 142 potassium 4.4. 107 bicarb is 25 BUN 14 and creatinine 0.75 calcium 10.4 AST 43 ALT 36 and alk phos 172. Troponin x2 negative and proBNP is 115. 12/11/2022 Patient is currently resting in bed. Awake alert and oriented x3. No complaints of chest pain or shortness of breath. Patient was seen by cardiology and recommending repeat stress test likely tomorrow. Patient was started back on antianginal medications. Currently on Imdur and started on metoprolol XL. Patient is also on ranolazine. Otherwise hepatitis panel is negative. Ultrasound of the liver due to elevated liver enzymes showed mild fatty infiltration of the liver. No gallstones or biliary ductal dilatation. Mild gallbladder hydrops may be due to fasting state. No gallstones. Other laboratory data reviewed. Current medications reviewed. Objective - Vital Signs Vital signs: Vital Signs Temp 97.6 F 12/11/22 14:08 Pulse 93 12/11/22 14:08 Resp 16 12/11/22 14:08 BP 92/61 12/11/22 14:08 Pulse Ox 94 L 12/11/22 14:08 FiO2 21 12/11/22 09:08 Intake & Output 12/10/22 12/11/22 12/11/22 18:59 06:59 18:59 Intake Total 50 Balance 50 Weight 93.894 kg Intake: Oral 50 Other: # Voids 1 2 - Exam PHYSICAL EXAMINATION: Patient is lying in the bed comfortably, no acute distress, awake alert and oriented.. HEENT: Normocephalic. Neck is supple. Pupils reactive. Nostrils clear. Oral cavity is moist. Neck reveals no JVD, carotid bruits, or thyromegaly. CHEST EXAMINATION: Trachea is central. Symmetrical expansion. no wheezing. No rhonchi or crackles. Nonlabored breathing.. CARDIAC: Normal S1, S2 with no gallops. No murmurs ABDOMEN: Soft. Bowel sounds present. Nontender. No organomegaly. No abdominal bruits. Extremities: reveal no edema. No clubbing or cyanosis Neurologically awake, alert, oriented x3 with well-coordinated movements. No focal deficits noted Skin: No rash or skin lesions. Psychiatric: Coperative. Nonsuicidal, Musculoskeletal: No joint swelling or deformity. Normal range of motion. - Labs CBC & Chem 7: 12/10/22 12:34 12/10/22 12:34 Labs: Abnormal Lab Results - Last 24 Hours (Table) 12/10/22 Range/Units 21:59 POC Glucose (mg/dL) 117 H (70-110) mg/dL Assessment and Plan Assessment: Chest pain with history of coronary artery disease and multiple stent placement.Suggestive of angina. Patient is off medication for the past 4 days. History of CABG about 1 year ago COPD GERD Diabetes type 2 [id number]-kemyasrgd History of [place] Osteoarthritis Anxiety/ bipolar disorder Currently everyday smoker and occasional marijuana use DVT prophylaxis with heparin subcu Plan: Patient will continue on telemetry monitoring. EKG and troponin x3 negative. Patient will be started back on her home medications including aspirin, statins, ranolazine and Imdur.added bb Cardiology is on board. Patient is scheduled for stress test tomorrow. Continue with breathing treatments. Patient is currently on room air. Follow-up closely.
[2022-12-12] MEDS: ACETAMINOPHEN TAB 325 MG TAB PO PRN ×2 (04:08→14:52)
[2022-12-12] MEDS: ONDANSETRON 4 MG/2 ML VIAL IVP PRN (04:09)
[2022-12-12] MEDS ORDERED: CAFFEINE CITRATE 60 MG/3 ML VIAL IV PRN (05:00)
[2022-12-12] MEDS ORDERED: AMINOPHYLLINE 500 MG/20 ML VIAL IV PRN (05:00)
[2022-12-12] MEDS: PANTOPRAZOLE 40 MG TABLET PO SCH (06:14)
[2022-12-12] MEDS ORDERED: REGADENOSON 0.4 MG/5 ML SYRINGE IV PRN (07:00)
[2022-12-12 07:07] LABS: Glucose,Whole Blood 118 mg/dL (70-110)
[2022-12-12] MEDS: MORPHINE SULFATE 4 MG/ML SYRINGE IV PRN (07:51)
[2022-12-12] MEDS: RANOLAZINE 500 MG TAB.ER.12H PO SCH (07:52)
[2022-12-12] MEDS: HEPARIN SODIUM,PORCINE/PF 5,000 UNIT/0.5 ML SYRINGE SQ SCH ×2 (07:52→15:04)
[2022-12-12] MEDS: ISOSORBIDE MONONITRATE ER 30 MG TAB.ER.24H PO SCH (07:52)
[2022-12-12] MEDS: METOPROLOL SUCCINATE (ER) 25 MG TAB.ER.24H PO SCH (07:52)
[2022-12-12] MEDS: lisinopriL 5 MG TAB PO SCH (07:52)
[2022-12-12] MEDS: ARIPiprazole 5 MG TAB PO SCH (07:52)
[2022-12-12] MEDS ORDERED: REGADENOSON 0.4 MG/5 ML SYRINGE IV ONE (08:00)
--- NOTE | 2022-12-12 09:19 | P.PN ---
Subjective Progress Note Date: 12/12/22 HISTORY OF PRESENT ILLNESS: This is a 52 year old female with a past medical history significant for co ronary artery disease with previous CABG and stenting, DM2, hypertension, hyperlipidemia, and nicotine dependence. Patient does not follow with a ammunition specialist at [facility]. Patient currently has been in half-way over the last 4 days for contempt of court. She therefore has not been receiving any of her home medications over the last 3 days. She states a day ago she started having persistent chest pain radiating into her arm and jaw similar to her prior angina. She admits the pain medications have helped. She was also placed back on some of her home medications however some of these are missing including metoprolol and Metformin. Patient had undergone heart catheterization November 14 tried to which showed patent vein graft to LAD and known occluded vein graft to circumflex. Prior stress test that shown ischemia in the inferolateral wall. 12/12 Patient states that she has had some chest pain overnight off and on but is not sure what is causing it to come and go. She denies having any shortness of breath which she states is improved after receiving nebulizer treatment. Vital signs have been stable. ekg monitor has been a sinus rhythm. Sheriff lombardi at bedside PHYSICAL EXAM: VITAL SIGNS: Reviewed. GENERAL: Well-developed in no acute distress. HEENT: Head is normocephalic. Pupils are equal, round. Sclerae anicteric. Mucous membranes of the mouth are moist. Neck supple. No JVD or thyromegaly LUNGS: Respirations even and unlabored. Lungs essentially clear to auscultation bilaterally. HEART: Regular rate and rhythm. S1 and S2 heard. ABDOMEN: Soft. Nondistended. Nontender. EXTREMITIES: Normal range of motion. No clubbing or cyanosis. Peripheral puls es intact. No lower extremity edema NEUROLOGIC: Awake and alert. Oriented x 3. ASSESSMENT: Chest pain consistent with angina Coronary artery disease with previous CABG and stenting Hypertension Hyperlipidemia Nicotine dependence DM2 PLAN: Patient having chest pain similar to her prior angina which has occurred 4 days after stopping her medications. Chest pain likely related to an revascularized circumflex territory and chronic angina. Continue patient's home cardiac medications Obtain Lexiscan stress test today If stress testing is within normal limits, patient is cleared for discharge from cardiology. Nurse practitioner note has been reviewed, I agree with the documented findings and plan of care. Patient was seen and examined. Objective - Vital Signs Vital signs: Vital Signs Temp 97.8 F 12/12/22 07:36 Pulse 67 12/12/22 07:36 Resp 18 12/12/22 07:36 BP 142/74 12/12/22 07:36 Pulse Ox 95 12/12/22 07:51 FiO2 21 12/11/22 09:08 Intake & Output 12/11/22 12/12/22 12/12/22 18:59 06:59 18:59 Intake Total 50 Balance 50 Intake: Oral 50 Other: # Voids 2 2 - Labs CBC & Chem 7: 12/10/22 12:34 12/10/22 12:34 Labs: Abnormal Lab Results - Last 24 Hours (Table) 12/12/22 Range/Units 07:05 POC Glucose (mg/dL) 118 H (70-110) mg/dL
[2022-12-12 09:49] LABS: Basophils # (A) 0.06 X 10*3/uL (0.00-0.10); Basophils % (A) 0.8 %; Eosinophils # (A) 0.24 X 10*3/uL (0.04-0.35); Eosinophils % (A) 3.1 %; HCT 40.2 % (37.2-46.3); HGB 12.8 g/dL (12.0-15.0); Immature Grans, Automated 0.3 %; Lymphocytes # (A) 3.56 X 10*3/uL (0.90-5.00); Lymphocytes % (A) 46.4 %; MCH 26.6 pg (27.0-32.0); MCHC 31.8 g/dL (32.0-37.0); MCV 83.6 fL (80.0-97.0); Mean Platelet Volume 10.7 fL (9.5-12.2); Monocytes # (A) 0.87 X 10*3/uL (0.20-1.00); Monocytes % (A) 11.3 %; NRBC Per 100 WBC 0 /100 WBCS (0.0-0.0); Neutrophils # (A) 2.93 X 10*3/uL (1.80-7.70); Neutrophils % (A) 38.1 %; Platelet Count 299 X 10*3/uL (140-440); RBC 4.81 X 10*6/uL (4.10-5.20); RDW 17.2 % (11.5-14.5); WBC 7.68 X 10*3/uL (4.50-10.00)
--- NOTE | 2022-12-12 12:49 | CA ---
Lexiscan Nuclear Stress Test Report Name: Griselda Mcadams Exam Date: 12/12/2022 11:38 Exam Location: [facility] Ht (in): 65 Wt (lb): 200 BSA: 1.98 Ordering Phys: Genaro Eastman DO Referring Phys: ELLY EASTMAN,, Technologist: Davis Macedo Age: 52 Gender: F : 1970 Procedure CPT: Indications: Reflex order-Stress test ICD-10 Codes: Patient History: Medications: SEE CHART Meds past 24 hrs: Pretest Chest Pain: STRESS TEST Lexiscan Protocol Exercise Duration (min:sec): 02:[address] Depressions (mm): Angina Score: Justice Score: Resting HR (bpm): 73 Peak HR (bpm): 122 Resting BP (mmHg): 113 / 79 Peak BP (mmHg): 141 / 80 MPHR: 166 Target HR: 141 % MPHR: 73 METS: 1.0 Total Dose: Peak Dose: Atropine: Double Product: 39279 BP Response: Stress Termination: PROTOCOL COMPLETE Stress Symptoms: CHEST PAIN x8, SHORT OF BREATH Stress Summary: ECG ANALYSIS Resting ECG: Sinus rhythm. Normal conduction. No arrhythmias. Nonspecific ST-T abnormality. Stress ECG: No ECG changes from baseline with Lexiscan infusion. CONCLUSIONS No ECG evidence of ischemia with Lexiscan infusion. Nuclear test results to follow. Dr. Iqra Ascencio MD (Electronically Signed) Final Date: 12 December 2022 12:48
[2022-12-12 12:57] LABS: Glucose,Whole Blood 121 mg/dL (70-110)
--- NOTE | 2022-12-12 14:27 | NM ---
EXAMINATION TYPE: NM stress lexiscan cardiolite DATE OF EXAM: 12/12/2022 COMPARISON: Prior study November 15, 2021 HISTORY: History of hypertension and diabetes with 2 prior strokes and for prior heart attacks along with 2 vessel CABG procedure along with COPD and asthma presents with chest pain and difficulty in br eathing. TECHNIQUE: After the intravenous administration of 10.1 mCi Tc 99m Sestamibi - Cardiolite resting SP ECT images acquired 45 minutes post injection. The patient received 0.4mg Lexiscan, 25.0 mCi Tc 99m Sestamibi - Stress images obtained [address] injection FINDINGS: Review of stress and rest SPECT images demonstrates small area of diminished radiotracer uptake invol ving the inferolateral left ventricular wall on stress and rest images could reflect old infarct. Thi s is less prominent versus prior study. No definitive reversible ischemia on today's study. Gated rosaura lysis shows normal wall motion with an estimated left ventricular ejection fraction of 54 %. IMPRESSION: Possible old infarct. No convincing scintigraphic evidence for reversible ischemia on rosita saucedo's study.
[2022-12-12 14:45] VITALS: BP 97/63; PULSE 90; RESP 17; TEMP 97.4
[2022-12-12 18:50] LABS: African American GFR (CKD) 65.9 (60.0-200.0); Albumin 4.8 g/dL (3.8-4.9); Albumin/Globulin Ratio 1.92 (1.60-3.17); Anion Gap 18.1 mmol/L (10.00-18.00); BUN/Creat Ratio 15.64 Ratio (12.00-20.00); Blood Urea Nitrogen 17.2 mg/dL (9.0-27.0); Calcium 10.2 mg/dL (8.7-10.3); Carbon Dioxide 18.9 mmol/L (20.0-27.5); Globulin 2.5 g/dL (1.6-3.3); Non-African American GFR(CKD) 56.9 (60.0-200.0); Potassium 4.5 mmol/L (3.5-5.5); Total Bilirubin 0.8 mg/dL (0.30-1.20); Total Protein 7.3 g/dL (6.2-8.2)
--- NOTE | 2022-12-13 14:30 | P.DS ---
Providers Date of admission: 12/10/22 14:03 Expected date of discharge: 12/12/22 Attending physician: Valorie Nelson Consults: 12/10/22 14:01 Consult Physician Routine Consulting Provider: Iqra Ascencio Consult Reason/Comments: CP Do you want consulting provider notified?: Yes Primary care physician: Stated None Hospital Course: Final diagnosis Chest pain with history of coronary artery disease and multiple stent placement. Suggestive of angina. Patient is off medication for the past 4 days. Negative stress test History of CABG about 1 year ago COPD GERD Diabetes type 2 [id number]-gjswrnreg History of [place] Osteoarthritis Anxiety/ bipolar disorder Currently everyday smoker and occasional marijuana use DVT prophylaxis Discharge disposition Patient is being discharged in a stable condition with guarded prognosis to [facility]. Patient will follow-up with her PCP as well as cardiology in the outpatient setting upon discharge. Patient is to continue with Toprol-XL on discharge. Total time taken is greater than 35 minutes. Hospital course This is a 52-year-old female who was recently [facility] with chest [facility] at prison and sent here for further evaluation. Patient was seen and evaluated by cardiology recommend undergoing stress testing. Stress testing was negative and patient has been cleared by cardiology for outpatient follow-up. Patient will continue on Toprol-XL and a prescription was provided. Patient had been noncompliant with medications that she had been incarcerated over the last few days. Please refer to cardiology notes for further HPI. Currently no reports of worsening chest pain, shortness of breath, or palpitations. Patient is afebrile. No reports of nausea or vomiting and patient is tolerating diet. Patient will be discharged back to prison today. Guarded prognosis Physical exam: Gen: This is a 52-year-old female who is awake, alert and oriented 3, well- developed, well-nourished, obese HEENT: Head is atraumatic, normocephalic. Pupils equal, round. Sclerae is anicteric. NECK: Supple. No JVD. No lymphadenopathy. No thyromegaly. LUNGS: Clear to auscultation. No wheezes or rhonchi. No intercostal retractions. HEART: S1, S2 are muffled ABDOMEN: Soft. Bowel sounds are present. No masses. No tenderness. EXTREMITIES: No pedal edema. No calf tenderness. NEUROLOGICAL: Patient is awake, alert and oriented x3. Cranial nerves 2 through 12 are grossly intact. Please refer to medication reconciliation sheet for a list of medications. The impression and plan of care has been dictated by Lesia Rivera, Nurse Practitioner as directed. Dr. Agustin MD I have performed a history and examination and MDM of this patient, discussed the same with the dictator, and agree with the dictator's assessment and plan as written ,documented as a scribe. Based on total visit time, I have performed more than 50% of the visit. Patient Condition at Discharge: Fair Plan - Discharge Summary Discharge Rx Participant: No New Discharge Prescriptions: New Acetaminophen Tab [Tylenol] 650 mg PO Q6HR PRN tab PRN Reason: Mild Pain Or Fever > 100.5 Metoprolol Succinate (ER) [Toprol Xl] 25 mg PO DAILY 30 Days #30 tab Continue Atorvastatin [Lipitor] 80 mg PO HS ARIPiprazole [Abilify] 5 mg PO DAILY Ranolazine [Ranexa] 1,000 mg PO BID Albuterol Nebulized [Ventolin Nebulized] 2.5 mg INHALATION RT-TID PRN PRN Reason: Shortness Of Breath Isosorbide Mononitrate ER [Imdur] 30 mg PO BID lisinopriL [Zestril] 5 mg PO DAILY Omeprazole 20 mg PO BID Discharge Medication List Atorvastatin [Lipitor] 80 mg PO HS 07/08/20 [History] ARIPiprazole [Abilify] 5 mg PO DAILY 11/13/21 [History] Ranolazine [Ranexa] 1,000 mg PO BID 11/13/21 [History] Albuterol Nebulized [Ventolin Nebulized] 2.5 mg INHALATION RT-TID PRN 12/10/22 [History] Isosorbide Mononitrate ER [Imdur] 30 mg PO BID 12/10/22 [History] Omeprazole 20 mg PO BID 12/10/22 [History] lisinopriL [Zestril] 5 mg PO DAILY 12/10/22 [History] Acetaminophen Tab [Tylenol] 650 mg PO Q6HR PRN tab 12/12/22 [Rx] Metoprolol Succinate (ER) [Toprol Xl] 25 mg PO DAILY 30 Days #30 tab 12/12/22 [Rx] Follow up Appointment(s)/Referral(s): Nonstaff,Physician [REFERRING] - 1-2 days Ambulatory/Diagnostic Orders: Comprehensive Metabolic Panel [LAB.AMB] Time Frame: 1 Week, Location: None Selected Patient Instructions/Handouts: Chest Pain (DC) Activity/Diet/Wound Care/Special Instructions: activity limited until follow up follow up with cardio outpatient continue heart healthy diet Discharge Disposition: DC/TRANSFER COURT/LAW
== END 2022-12-12 15:40 | DRG 198 ==
LOC: EC 12:21 → OBSVTOIN 14:03 → 6NMEDSUR 14:03 → UNDODISOB 12-12 15:40
PROVIDERS: ADMIT Internal Medicine; ATTEND Internal Medicine
DX: I25.719 Atherosclerosis of autologous vein coronary artery bypass graft(s) with unspecified angina pectoris (principal); I25.119 Atherosclerotic heart disease of native coronary artery with unspecified angina pectoris; J44.9 Chronic obstructive pulmonary disease, unspecified; K82.1 Hydrops of gallbladder; K76.0 Fatty (change of) liver, not elsewhere classified; E11.9 Type 2 diabetes mellitus without complications; F31.9 Bipolar disorder, unspecified; Z28.310 Unvaccinated for COVID-19; K21.9 Gastro-esophageal reflux disease without esophagitis; M19.90 Unspecified osteoarthritis, unspecified site; E78.5 Hyperlipidemia, unspecified; I10 Essential (primary) hypertension; F41.9 Anxiety disorder, unspecified; I25.2 Old myocardial infarction; F17.210 Nicotine dependence, cigarettes, uncomplicated; T50.916A Underdosing of multiple unspecified drugs, medicaments and biological substances, initial encounter; Z91.138 Patient's unintentional underdosing of medication regimen for other reason; E66.9 Obesity, unspecified; Z68.34 Body mass index [BMI] 34.0-34.9, adult; Z79.899 Other long term (current) drug therapy; Z95.5 Presence of coronary angioplasty implant and graft; Z95.1 Presence of aortocoronary bypass graft; Z82.49 Family history of ischemic heart disease and other diseases of the circulatory system
CPT/HCPCS: 36415; 71046; 76705; 78452; 80053; 80074; 83735; 83880; 84484; 85025; 85610; 85730; 93005; 93017; 94640; 94760; 96372; 96374; 96375; 96376; 99285

== ENCOUNTER 2022-12-17 21:47 | Emergency (ER) | payer OTHER ==
[2022-12-17 21:58] VITALS: TEMP 98
--- NOTE | 2022-12-17 22:00 | ED ---
General Adult HPI - General Source: patient, EMS Mode of arrival: EMS Limitations: no limitations <Dariusz Peña - Last Filed: 12/17/22 23:11> <Justo Hilario - Last Filed: 12/18/22 01:23> - General Chief complaint: Chest Pain Stated complaint: Chest Pain Time Seen by Provider: 12/17/22 21:51 - History of Present Illness Initial comments: Patient presents to the ED by ambulance from care home with chief nursing officer for evaluation. Patient states that she has had left-sided chest pain radiating to her left arm with associated nausea for the past 2 hours or so. Patient states that her pain/symptoms began while at rest. Patient denies having any other associated symptoms. Patient was admitted to the hospital just a few days ago for similar symptoms, and she had a negative nuclear stress test done at that time. Patient states that she took 3 sublingual nitroglycerin tabs prior to EMS arrival, and she was given aspirin and IV fentanyl by EMS. Patient reports that her chest pain has currently improved. Patient denies trauma or injury, fever or chills, headache, focal numbness/weakness/neuro deficit, neck/jaw/back pain, pleuritic pain, dyspnea, cough or cold symptoms, diaphoresis, palpitations, dizziness, vomiting or diarrhea, bloody or melanotic stool, dysuria or urinary symptoms, decreased urine output, leg or calf swelling or pain, or any other symptoms or complaints. (Dariusz Peña) - Related Data Home Medications Medication Instructions Recorded Confirmed Atorvastatin [Lipitor] 80 mg PO HS 07/08/20 12/10/22 ARIPiprazole [Abilify] 5 mg PO DAILY 11/13/21 12/10/22 Ranolazine [Ranexa] 1,000 mg PO BID 11/13/21 12/10/22 Albuterol Nebulized [Ventolin 2.5 mg INHALATION RT-TID PRN 12/10/22 12/10/22 Nebulized] Isosorbide Mononitrate ER [Imdur] 30 mg PO BID 12/10/22 12/10/22 Omeprazole 20 mg PO BID 12/10/22 12/10/22 lisinopriL [Zestril] 5 mg PO DAILY 12/10/22 12/10/22 Previous Rx's Medication Instructions Recorded Acetaminophen Tab [Tylenol] 650 mg PO Q6HR PRN tab 12/12/22 Metoprolol Succinate (ER) [Toprol 25 mg PO DAILY 30 Days #30 tab 12/12/22 Xl] Allergies Allergy/AdvReac Type Severity Reaction Status Date / Time No Known Allergies Allergy Verified 12/17/22 21:57 Review of Systems ROS Other: All systems not noted in ROS Statement are negative. <Dariusz Peña - Last Filed: 12/17/22 23:11> ROS Other: All systems not noted in ROS Statement are negative. <Justo Hilario - Last Filed: 12/18/22 01:23> ROS Statement: Those systems with pertinent positive or pertinent negative responses have been documented in the HPI. Past Medical History Past Medical History: Asthma, Coronary Artery Disease (CAD), COPD, Diabetes Mellitus, GERD/Reflux, Myocardial Infarction ([place]), Osteoarthritis (OA) Additional Past Medical History / Comment(s): DDD Last Myocardial Infarction Date:: 2011 History of Any Multi-Drug Resistant Organisms: None Reported Past Surgical History: Coronary Bypass/CABG, Heart Catheterization With Stent Additional Past Surgical History / Comment(s): seven stents Past Anesthesia/Blood Transfusion Reactions: No Reported Reaction Date of Last Stent Placement:: 11/2018 Past Psychological History: Anxiety, Bipolar Smoking Status: Current every day smoker Past Alcohol Use History: Occasional Past Drug Use History: Marijuana - Past Family History Mother Family Medical History: Cancer Additional Family Medical History / Comment(s): Ovarian cancer Father Family Medical History: Congestive Heart Failure (CHF) Fmily Family Medical History: No Reported History <Dariusz Peña - Last Filed: 12/17/22 23:11> General Exam Limitations: no limitations General appearance: alert, in no apparent distress Head exam: Present: atraumatic, normocephalic Eye exam: Present: normal appearance, EOMI ENT exam: Present: mucous membranes moist Neck exam: Present: other (Trachea is in midline) Respiratory exam: Present: normal lung sounds bilaterally. Absent: respiratory distress, wheezes, rales, rhonchi, stridor, chest wall tenderness Cardiovascular Exam: Present: regular rate, normal rhythm, normal heart sounds, other (Normal radial pulses bilaterally) GI/Abdominal exam: Present: soft. Absent: distended, tenderness, guarding Extremities exam: Present: other (Negative Homans sign bilaterally). Absent: tenderness, pedal edema, calf tenderness Neurological exam: Present: alert, oriented X3. Absent: motor sensory deficit Psychiatric exam: Present: normal affect, normal mood Skin exam: Present: warm, dry, intact, normal color <KeshiafarihavandanaDariusz - Last Filed: 12/17/22 23:11> Course Vital Signs 12/17/22 12/17/22 12/17/22 21:52 22:08 23:07 Temperature 98.0 F Pulse Rate 70 63 Respiratory 18 18 Rate Blood Pressure 172/102 143/91 126/87 O2 Sat by Pulse 97 98 Oximetry 12/17/22 12/18/22 12/18/22 23:41 00:02 00:57 Temperature Pulse Rate 76 82 Respiratory 24 16 Rate Blood Pressure 210/120 200/109 138/82 O2 Sat by Pulse 100 98 Oximetry EKG Findings - EKG Comments: EKG Findings:: ED physician interpretation: Normal sinus rhythm, ventricular rate of 65 bpm, no ectopy, normal KS and QRS intervals, normal QT interval, normal axis, nonspecific ST and T-wave abnormality, no significant change when compared to 12/10/2022 EKG <NataliaDariusz balderas - Last Filed: 12/17/22 23:11> Medical Decision Making - Lab Data Result diagrams: 12/17/22 22:06 12/17/22 22:06 <Dariusz Peña - Last Filed: 12/17/22 23:11> - Lab Data Result diagrams: 12/17/22 22:06 12/17/22 22:06 - EKG Data -: EKG Interpreted by [facility] <Justo Hilario - Last Filed: 12/18/22 01:23> - Medical Decision Making Was pt. sent in by a medical professional or institution (, PA, CAREER DEVELOPMENT DIRECTOR, urgent care, hospital, or assisted...) When possible be specific @ -[No] Did you speak to anyone other than the patient for history (EMS, parent, family, police, friend...)? What history was obtained from this source @ -[No] Did you review nursing and triage notes (agree or disagree)? Why? @ -[I reviewed and agree with nursing and triage notes] Were old charts reviewed (outside hosp., previous admission, EMS record, old EKG, old radiological studies, urgent care reports/EKG's, assisted records)? Report findings @ -[No old charts were reviewed] Differential Diagnosis (chest pain, altered mental status, abdominal pain women, abdominal pain men, vaginal bleeding, weakness, fever, dyspnea, syncope, headache, dizziness, GI bleed, back pain, seizure, CVA, palpatations, mental health, musculoskeletal)? @ -Differential Chest Pain: Stable Angina, Unstable Angina, STEMI, NSTEMI Aortic Dissection, Pneumothorax, Musculoskeletal, Esophageal Spasm GERD, pleurisy, pleural effusion, chest wall pain, this is not meant to be an all-inclusive list. EKG interpreted by me (3pts min.). @ -[As above] X-rays interpreted by me (1pt min.). @ -[Chest x-ray was reviewed myself, and agree with the radiologist's interpretation as above.] CT interpreted by me (1pt min.). @ -[None done] U/S interpreted by me (1pt. min.). @ -[None done] What testing was considered but not performed or refused? (CT, X-rays, U/S, labs)? Why? @ -[None] What meds were considered but not given or refused? Why? @ -[None] Did you discuss the management of the patient with other professionals (professionals i.e. , PA, CAREER DEVELOPMENT DIRECTOR, lab, RT, psych nurse, social staff worker, automobile body repair chief, teacher, chief risk officer, pillowcase cleaner)? Give summary @ -[No] Was smoking cessation discussed for >3mins.? @ -[No] Was critical care preformed (if so, how long)? @ -[No] Were there social determinants of health that impacted care today? How? (Homelessness, low income, unemployed, alcoholism, drug addiction, transportation, low edu. Level, literacy, decrease access to med. care, care home, rehab)? @ -[No] Was there de-escalation of care discussed even if they declined (Discuss DNR or withdrawal of care, Hospice)? DNR status @ -[No] What co-morbidities impacted this encounter? (DM, HTN, Smoking, COPD, CAD, Cancer, CVA, ARF, Chemo, Hep., AIDS, mental health diagnosis, sleep apnea, morb id obesity)? @ -[CAD] Was patient admitted / discharged? Hospital course, mention meds given and route, prescriptions, significant lab abnormalities, going to OR and other pertinent info. @ -[Patient has been alert and breathing comfortably in the ED. Patient has a normal room air oxygen saturation. Patient's chest x-ray is negative. Pat ient's initial troponin is negative. Patient's d-dimer is elevated. A CT angiography chest has been ordered to rule out PE. A 2 hour troponin has also been ordered. 2310: Patient was endorsed to ED physician Dr. Hilario secondary to end of my shift. Dr. Hilario to follow up on the patient's 2 hour troponin result, as well as the patient's CT angiography chest report. Dr. Hilario to take over care of the patient at this time.] (Dariusz Peña) Patient signed out to me pending results of workup, repeat troponin, CT angiogram. Has a history of significant cardiac disease. This includes bypass, angina. Had an episode of chest pain today while at care home. Had similar episode last week and received a full cardiac workup including stress test that was within acceptable limits. Workup here shows an EKG that is unchanged from prior EKGs. No evidence of acute ischemia. Initial troponin is undetectable. Secondary troponin that was obtained 3 hours after the first was unremarkable. Chest x-ray revealed no acute cardio putting process. D-dimer was elevated and CT angiogram was obtained to evaluate for PE. CT PE was negative for pulmonary embolism. Patient did become briefly hypotensive the result of pain medication. At that time, patient did complain of some anxiety as well as tightness in her chest. Morphine resolved all of her symptoms. I have treated the patient. We discussed her recent full cardiac workup on admission last week as well as her negative workup thus far today. We did discuss admission versus discharge, and we are both in agreement for discharge home at this time, considering she did have the recent cardiac observation with stress test that was unremarkable within the last week. She was in agreement with this plan. Strict return precautions were discussed. She'll be discharged back to care home. I instructed the patient to follow up with their PCP in the next 1-3 days. I explained that the patient should return to the emergency department if they experience any worsening symptoms. Strict return precautions were discussed with the patient. The patient expressed understanding of these instructions. I answered all questions that the patient had. The patient was discharged home in good condition with their prescriptions and follow up information. Diagnosis/symptom? @ -Chest pain Acute, or Chronic, or Acute on Chronic? @ -Acute Uncomplicated (without systemic symptoms) or Complicated (systemic symptoms)? @ -Uncomplicated Side effects of treatment? @ -none Exacerbation, Progression, or Severe Exacerbation] @ -no Poses a threat to life or bodily function? @ - Potentially, however patient does have recent negative cardiac workup and negative stress test within the last week for identical symptoms. (Justo Hilario) - Lab Data Lab Results 12/17/22 12/17/22 12/17/22 Range/Units 22:06 22:06 22:06 WBC 8.7 (3.8-10.6) k/uL RBC 4.93 (3.80-5.40) m/uL Hgb 13.9 (11.4-16.0) gm/dL Hct 41.5 (34.0-46.0) % MCV 84.3 (80.0-100.0) fL MCH 28.1 (25.0-35.0) pg MCHC 33.4 (31.0-37.0) g/dL RDW 16.7 H (11.5-15.5) % Plt Count 317 (150-450) k/uL MPV 8.1 Neutrophils % 48 % Lymphocytes % 39 % Monocytes % 7 % Eosinophils % 2 % Basophils % 0 % Neutrophils # 4.1 (1.3-7.7) k/uL Lymphocytes # 3.4 (1.0-4.8) k/uL Monocytes # 0.6 (0-1.0) k/uL Eosinophils # 0.2 (0-0.7) k/uL Basophils # 0.0 (0-0.2) k/uL Anisocytosis Slight PT 10.2 (9.0-12.0) sec INR 1.0 (<1.2) APTT 22.3 (22.0-30.0) sec D-Dimer 1.12 H (<0.60) mg/L FEU Sodium 139 (137-145) mmol/L Potassium 3.8 (3.5-5.1) mmol/L Chloride 107 (98-107) mmol/L Carbon Dioxide 19 L (22-30) mmol/L Anion Gap 13 mmol/L BUN 18 H (7-17) mg/dL Creatinine 0.96 (0.52-1.04) mg/dL Est GFR (CKD-EPI)AfAm 78 (>60 ml/min/1.73 sqM) Est GFR (CKD-EPI)NonAf 67 (>60 ml/min/1.73 sqM) Glucose 106 H (74-99) mg/dL Calcium 9.9 (8.4-10.2) mg/dL Magnesium 1.6 (1.6-2.3) mg/dL Total Bilirubin 0.8 (0.2-1.3) mg/dL AST 37 H (14-36) U/L ALT 32 (4-34) U/L Alkaline Phosphatase 134 H (38-126) U/L Troponin I (0.000-0.034) ng/mL NT-Pro-B Natriuret Pep pg/mL Total Protein 7.8 (6.3-8.2) g/dL Albumin 5.0 (3.5-5.0) g/dL 12/17/22 12/17/22 12/18/22 Range/Units 22:06 22:06 00:21 WBC (3.8-10.6) k/uL RBC (3.80-5.40) m/uL Hgb (11.4-16.0) gm/dL Hct (34.0-46.0) % MCV (80.0-100.0) fL MCH (25.0-35.0) pg MCHC (31.0-37.0) g/dL RDW (11.5-15.5) % Plt Count (150-450) k/uL MPV Neutrophils % % Lymphocytes % % Monocytes % % Eosinophils % % Basophils % % Neutrophils # (1.3-7.7) k/uL Lymphocytes # (1.0-4.8) k/uL Monocytes # (0-1.0) k/uL Eosinophils # (0-0.7) k/uL Basophils # (0-0.2) k/uL Anisocytosis PT (9.0-12.0) sec INR (<1.2) APTT (22.0-30.0) sec D-Dimer (<0.60) mg/L FEU Sodium (137-145) mmol/L Potassium (3.5-5.1) mmol/L Chloride (98-107) mmol/L Carbon Dioxide (22-30) mmol/L Anion Gap mmol/L BUN (7-17) mg/dL Creatinine (0.52-1.04) mg/dL Est GFR (CKD-EPI)AfAm (>60 ml/min/1.73 sqM) Est GFR (CKD-EPI)NonAf (>60 ml/min/1.73 sqM) Glucose (74-99) mg/dL Calcium (8.4-10.2) mg/dL Magnesium (1.6-2.3) mg/dL Total Bilirubin (0.2-1.3) mg/dL AST (14-36) U/L ALT (4-34) U/L Alkaline Phosphatase (38-126) U/L Troponin I <0.012 0.013 (0.000-0.034) ng/mL NT-Pro-B Natriuret Pep 65 pg/mL Total Protein (6.3-8.2) g/dL Albumin (3.5-5.0) g/dL - EKG Data EKG Comments: 12-lead Electrocardiogram Interpretation Note EKG was reviewed and interpreted by myself. 12-lead ECG performed at 2359 is interpreted by me as revealing normal sinus rhythm at a rate of 59 beats per minute. [place] is normal. KS interval is 137 ms, QRS duration is 86 ms, QTc is 434 ms.. There were no acute ST or T wave abnormalities to suggest myocardial ischemia or injury. R wave progression across the precordium was satisfactory. By my interpretation this EKG is non-diagnostic for acute ischemia. No change from prior EKG earlier this evening. (Justo Hilario) - Radiology Data Chest x-ray: No active cardiopulmonary disease. No change. (Dariusz Peña) Disposition <Dariusz Peña - Last Filed: 12/17/22 23:11> Is patient prescribed a controlled substance at d/c from ED?: No Time of Disposition: 01:15 <Justo Hilario - Last Filed: 12/18/22 01:23> Clinical Impression: Chest pain Disposition: HOME SELF-CARE Condition: Good Instructions (If sedation given, give patient instructions): Chest Pain (ED) Referrals: None,Stated [Primary Care Provider] - 1-2 days
[2022-12-17 22:28] LABS: Anisocytosis Slight; Basophils % (A) 0 %; Eosinophils # (A) 0.2 k/uL (0-0.7); Eosinophils % (A) 2 %; HCT 41.5 % (34.0-46.0); HGB 13.9 gm/dL (11.4-16.0); Lymphocytes # (A) 3.4 k/uL (1.0-4.8); Lymphocytes % (A) 39 %; MCH 28.1 pg (25.0-35.0); MCHC 33.4 g/dL (31.0-37.0); MCV 84.3 fL (80.0-100.0); Mean Platelet Volume 8.1; Monocytes # (A) 0.6 k/uL (0-1.0); Monocytes % (A) 7 %; Neutrophils # (A) 4.1 k/uL (1.3-7.7); Neutrophils % (A) 48 %; Platelet Count 317 k/uL (150-450); RBC 4.93 m/uL (3.80-5.40); RDW 16.7 % (11.5-15.5); WBC 8.7 k/uL (3.8-10.6)
--- NOTE | 2022-12-17 22:38 | XR ---
EXAMINATION TYPE: XR chest 2V DATE OF EXAM: 12/17/2022 COMPARISON: 12/10/2022 HISTORY: Chest pain TECHNIQUE: 2 views FINDINGS: Heart is normal. Lungs are clear of consolidation. There are no hilar masses. There are terrie rnal wires. No pleural effusion. Bony thorax is intact. There are chest leads. There is apparent card iac stents. IMPRESSION: No active cardiopulmonary disease. No change.
[2022-12-17 22:45] LABS: Calcium 9.9 mg/dL (8.4-10.2); Magnesium 1.6 mg/dL (1.6-2.3); Potassium 3.8 mmol/L (3.5-5.1); Total Bilirubin 0.8 mg/dL (0.2-1.3); Total Protein 7.8 g/dL (6.3-8.2)
[2022-12-17 22:46] LABS: Partial Thromboplastin Time 22.3 sec (22.0-30.0); Prothrombin Time 10.2 sec (9.0-12.0)
[2022-12-17] MEDS ORDERED: KETOROLAC 15 MG/ML 1 ML VIAL IVP STA (22:54)
[2022-12-17] MEDS ORDERED: MORPHINE SULFATE 4 MG/ML SYRINGE IVP STA (23:49)
--- NOTE | 2022-12-17 23:57 | CT ---
EXAMINATION TYPE: CT chest angio for PE DATE OF EXAM: 12/17/2022 COMPARISON: 11/15/2021 HISTORY: chest pain since 1999 tonight, elevated d dimer CT DLP: 401.7 mGycm Automated exposure control for dose reduction was used. CONTRAST: Performed with IV Contrast, patient injected with 90 mL of Isovue 370. There are Three-D postprocessed images. There is some pulmonary emphysema. There is mild subsegmental atelectasis and scarring left lung base without change. Heart size is normal. No pericardial effusion. There are no hilar masses. No mediast inal adenopathy. Thoracic aorta is intact. No aneurysm. There is no evidence of filling defect in the pulmonary arteri es. The thoracic spine is intact. No compression fracture. There are sternal wires. IMPRESSION: No evidence of pulmonary embolism. Mild pulmonary emphysema without change.
[2022-12-18 01:45] VITALS: BP 134/79; PULSE 78; RESP 15
== END 2022-12-18 01:52 | disposition home or self-care (01) ==
LOC: EC 21:47
DX: R07.89 Other chest pain (principal); E11.9 Type 2 diabetes mellitus without complications; I25.10 Atherosclerotic heart disease of native coronary artery without angina pectoris; I25.2 Old myocardial infarction; J44.9 Chronic obstructive pulmonary disease, unspecified; K21.9 Gastro-esophageal reflux disease without esophagitis; F31.9 Bipolar disorder, unspecified; F41.9 Anxiety disorder, unspecified; F17.200 Nicotine dependence, unspecified, uncomplicated; F12.90 Cannabis use, unspecified, uncomplicated; Z95.1 Presence of aortocoronary bypass graft; Z79.899 Other long term (current) drug therapy
CPT/HCPCS: 36415 ×2; 93005; 85379; 83880; 80053; 83735; 84484 ×2; 85025; 85610; 85730; 71046; 71275; 99285; 96374; 96375; J2270; J1885; Q9967

== ENCOUNTER 2023-03-27 11:16 | Emergency (ER) | payer OTHER ==
[2023-03-27 12:04] LABS: Glucose,Whole Blood 141 mg/dL (70-110)
[2023-03-27] MEDS ORDERED: MORPHINE SULFATE 4 MG/ML SYRINGE IV STA (12:37)
[2023-03-27] MEDS ORDERED: NITROGLYCERIN OINT 1 INCH/GM PACKET TOPICAL STA (12:37)
[2023-03-27] MEDS ORDERED: ONDANSETRON 4 MG/2 ML VIAL IVP STA (12:37)
[2023-03-27] MEDS ORDERED: ASPIRIN 81 MG PO STA (12:37)
--- NOTE | 2023-03-27 12:45 | ED ---
General Adult HPI - General Chief complaint: Weakness Stated complaint: General Weakness, High Blood Sugar, Dizziness Time Seen by Provider: 03/27/23 11:20 Source: patient Mode of arrival: EMS Limitations: no limitations - History of Present Illness Initial comments: 52-year-old female past history of asthma, COPD, diabetes, heart disease who presents to the emergency department reporting elevated sugars, weakness and chest pain. States that her symptoms started last night. She took her glucose at home and it was in the 300s. She is [id number]. She also began having left-sided chest wall pain which radiates into her jaw. She does have significant cardiac history including 7 stents and 2 bypass surgeries. She denies fevers, chills or cough. No shortness of breath. No ripping or tearing sensation to her back. Follows with a [facility] faculty assistant out of [place]. No other alleviating, precipitating or modifying factors - Related Data Home Medications Medication Instructions Recorded Confirmed Atorvastatin [Lipitor] 80 mg PO DAILY 07/08/20 04/03/23 ARIPiprazole [Abilify] 5 mg PO DAILY 11/13/21 04/03/23 Ranolazine [Ranexa] 1,000 mg PO BID 11/13/21 04/03/23 lisinopriL [Zestril] 5 mg PO DAILY 12/10/22 04/03/23 Albuterol Inhaler [Ventolin Hfa 1 - 2 puff INHALATION RT-Q4H PRN 03/27/23 04/03/23 Inhaler] Aspirin EC [Ecotrin Low Dose] 81 mg PO DAILY 03/27/23 04/03/23 Budesonide/Formoterol Fumarate 2 puff INHALATION RT-BID 03/27/23 04/03/23 [Symbicort 160-4.5 Mcg Inhaler] Clopidogrel [Plavix] 75 mg PO DAILY 03/27/23 04/03/23 Dulaglutide [Trulicity] 1.5 mg SQ TU 03/27/23 04/03/23 Escitalopram [Lexapro] 20 mg PO DAILY 03/27/23 04/03/23 Isosorbide Dinitrate 30 mg PO BID 03/27/23 04/03/23 Metoprolol Tartrate [Lopressor] 50 mg PO BID 03/27/23 04/03/23 Nitroglycerin Sl Tabs [Nitrostat] 0.4 mg SUBLINGUAL Q5M PRN 03/27/23 04/03/23 Omeprazole 40 mg PO BID 03/27/23 04/03/23 Ondansetron [Zofran] 4 mg PO TID PRN 03/27/23 04/03/23 Pregabalin [Lyrica] 150 mg PO BID 03/27/23 04/03/23 Spiriva Respimat 1.25mcg/Actua 2 puff INHALATION RT-DAILY 03/27/23 04/03/23 amLODIPine [Norvasc] 10 mg PO DAILY 03/27/23 04/03/23 diphenhydrAMINE [Benadryl] 25 mg PO BID 03/27/23 04/03/23 metFORMIN HCL 1,000 mg PO BID 03/27/23 04/03/23 rOPINIRole HCL [Requip] 1 mg PO HS 03/27/23 04/03/23 Allergies Allergy/AdvReac Type Severity Reaction Status Date / Time No Known Allergies Allergy Verified 04/03/23 12:29 Review of Systems ROS Statement: Those systems with pertinent positive or pertinent negative responses have been documented in the HPI. ROS Other: All systems not noted in ROS Statement are negative. Past Medical History Past Medical History: Asthma, Coronary Artery Disease (CAD), COPD, Diabetes Mellitus, GERD/Reflux, Myocardial Infarction (UT), Osteoarthritis (OA) Additional Past Medical History / Comment(s): DDD Last Myocardial Infarction Date:: 2011 History of Any Multi-Drug Resistant Organisms: None Reported Past Surgical History: Coronary Bypass/CABG, Heart Catheterization With Stent Additional Past Surgical History / Comment(s): seven stents Past Anesthesia/Blood Transfusion Reactions: No Reported Reaction Date of Last Stent Placement:: 11/2018 Past Psychological History: Anxiety, Bipolar Smoking Status: Current every day smoker Past Alcohol Use History: Occasional Past Drug Use History: Marijuana - Past Family History Mother Family Medical History: Cancer Additional Family Medical History / Comment(s): Ovarian cancer Father Family Medical History: Congestive Heart Failure (CHF) Fmily Family Medical History: No Reported History General Exam Limitations: no limitations General appearance: alert, in no apparent distress Head exam: Present: atraumatic, normocephalic, normal inspection Eye exam: Present: normal appearance, PERRL, EOMI. Absent: scleral icterus, conjunctival injection, periorbital swelling ENT exam: Present: normal exam, mucous membranes moist Neck exam: Present: normal inspection. Absent: tenderness, meningismus, lymphadenopathy Respiratory exam: Present: normal lung sounds bilaterally. Absent: respiratory distress, wheezes, rales, rhonchi, stridor Cardiovascular Exam: Present: regular rate, normal rhythm, normal heart sounds. Absent: systolic murmur, diastolic murmur, rubs, gallop, clicks GI/Abdominal exam: Present: soft, normal bowel sounds. Absent: distended, tenderness, guarding, rebound, rigid Extremities exam: Present: normal inspection, full ROM, normal capillary refill. Absent: tenderness, pedal edema, joint swelling, calf tenderness Back exam: Present: normal inspection Neurological exam: Present: alert, oriented X3, CN II-XII intact Psychiatric exam: Present: normal affect, normal mood Skin exam: Present: warm, dry, intact, normal color. Absent: rash Course Vital Signs 03/27/23 03/27/23 03/27/23 11:19 12:11 14:52 Pulse Rate 61 71 82 Respiratory 18 22 18 Rate Blood Pressure 124/76 125/93 105/68 O2 Sat by Pulse 97 97 92 L Oximetry Medical Decision Making - Medical Decision Making Was pt. sent in by a medical professional or institution (VICENTE Mckenna, PHARMACY STUDENT, urgent care, hospital, or fpc...) When possible be specific @ -No Did you speak to anyone other than the patient for history (EMS, parent, family, police, friend...)? What history was obtained from this source @ -No Did you review nursing and triage notes (agree or disagree)? Why? @ -I reviewed and agree with nursing and triage notes Were old charts reviewed (outside hosp., previous admission, EMS record, old EKG, old radiological studies, urgent care reports/EKG's, fpc records)? Report findings @ -No old charts were reviewed Differential Diagnosis (chest pain, altered mental status, abdominal pain women, abdominal pain men, vaginal bleeding, weakness, fever, dyspnea, syncope, headache, dizziness, GI bleed, back pain, seizure, CVA, palpatations, mental health, musculoskeletal)? @ -acs, stemi, nstemi, coronary vasospasm EKG interpreted by me (3pts min.). @ -yes. EKG completed at 1123 demonstrates sinus rhythm with a rate of 62. CA interval 159. QRS 90. QTC 419. No acute ST segment elevations or depressions. Repeat EKG performed at 1240 as patient is having worsening chest pain. Continues to demonstrate sinus rhythm with no ST segment elevations or depressions. Rate of 60. CA interval 144. QRS 86. QTC of 408 X-rays interpreted by me (1pt min.). @ -yes, no acute process CT interpreted by me (1pt min.). @ -None done U/S interpreted by me (1pt. min.). @ -None done What testing was considered but not performed or refused? (CT, X-rays, U/S, labs)? Why? @ -None What meds were considered but not given or refused? Why? @ -None Did you discuss the management of the patient with other professionals (pro fessionals i.e. , PA, PHARMACY STUDENT, lab, RT, psych nurse, social media coordinator, mortgage loan officer originator, teacher, founder and chief executive officer, family caseworker)? Give summary @ -No Was smoking cessation discussed for >3mins.? @ -No Was critical care preformed (if so, how long)? @ -No Were there social determinants of health that impacted care today? How? (Homelessness, low income, unemployed, alcoholism, drug addiction, transporta tion, low edu. Level, literacy, decrease access to med. care, [place] [facility], rehab)? @ -No Was there de-escalation of care discussed even if they declined (Discuss DNR or withdrawal of care, Hospice)? DNR status @ -No What co-morbidities impacted this encounter? (DM, HTN, Smoking, COPD, CAD, Cancer, CVA, ARF, Chemo, Hep., AIDS, mental health diagnosis, sleep apnea, morbid obesity)? @ -CAD, DM, HTN Was patient admitted / discharged? Hospital course, mention meds given and route, prescriptions, significant lab abnormalities, going to OR and other pertinent info. @ -Upon arrival patient was placed in room 17. There are history of physical exam is performed. IV access was established laboratory studies are conducted. Patient was given 4 mg of Zofran, 1 nitro, formula grams of morphine and a full dose aspirin. Laboratory studies are conducted and reviewed. Troponin is negative. Glucose is only 126. Chest x-ray demonstrates no acute cardio pulmonary process. Did discuss results with the patient. Did recommend admission. Patient would like to go home at this time. She has been admitted several times in the past for same complaints and states that this time she wants to go home. I did discuss the risks with the patient for which she understood that chest pain with her significant cardiac history could mean permanent disability and even . She is willing to accept these risks. With like to follow up with her own doctor. She is instructed to continue taking her medications as directed and return for any new or worsening symptoms. Patient agreeable to plan and discharged in stable condition Undiagnosed new problem with uncertain prognosis? @ -yes Drug Therapy requiring intensive monitoring for toxicity (Heparin, Nitro, Insulin, Cardizem)? @ -No Were any procedures done? @ -No Diagnosis/symptom? @ -acute chest pain, hx ascad Acute, or Chronic, or Acute on Chronic? @ -acute Uncomplicated (without systemic symptoms) or Complicated (systemic symptoms)? @ -complicated Side effects of treatment? @ -No Exacerbation, Progression, or Severe Exacerbation? @ -No Poses a threat to life or bodily function? How? (Chest pain, USA, [place], pneumonia, PE, COPD, DKA, ARF, appy, cholecystitis, CVA, Diverticulitis, Homicidal, Cervantes icidal, threat to staff... and all critical care pts) @ -yes - Lab Data Result diagrams: 03/27/23 12:41 03/27/23 12:41 Lab Results 03/27/23 03/27/23 03/27/23 Range/Units 12:03 12:41 12:41 WBC 9.0 (3.8-10.6) k/uL RBC 4.56 (3.80-5.40) m/uL Hgb 12.6 (11.4-16.0) gm/dL Hct 39.2 (34.0-46.0) % MCV 86.0 (80.0-100.0) fL MCH 27.5 (25.0-35.0) pg MCHC 32.0 (31.0-37.0) g/dL RDW 15.3 (11.5-15.5) % Plt Count 353 (150-450) k/uL MPV 8.1 Neutrophils % 56 % Lymphocytes % 33 % Monocytes % 5 % Eosinophils % 2 % Basophils % 0 % Neutrophils # 5.1 (1.3-7.7) k/uL Lymphocytes # 3.0 (1.0-4.8) k/uL Monocytes # 0.5 (0-1.0) k/uL Eosinophils # 0.2 (0-0.7) k/uL Basophils # 0.0 (0-0.2) k/uL PT 9.6 (9.0-12.0) sec INR 0.9 (<1.2) APTT 22.4 (22.0-30.0) sec Sodium (137-145) mmol/L Potassium (3.5-5.1) mmol/L Chloride (98-107) mmol/L Carbon Dioxide (22-30) mmol/L Anion Gap mmol/L BUN (7-17) mg/dL Creatinine (0.52-1.04) mg/dL Est GFR (CKD-EPI)AfAm (>60 ml/min/1.73 sqM) Est GFR (CKD-EPI)NonAf (>60 ml/min/1.73 sqM) Glucose (74-99) mg/dL POC Glucose (mg/dL) 141 H (70-110) mg/dL POC Glu Director Of Employer Services ID Iveth, Benji Calcium (8.4-10.2) mg/dL Magnesium (1.6-2.3) mg/dL Total Bilirubin (0.2-1.3) mg/dL AST (14-36) U/L ALT (4-34) U/L Alkaline Phosphatase (38-126) U/L Troponin I (0.000-0.034) ng/mL NT-Pro-B Natriuret Pep pg/mL Total Protein (6.3-8.2) g/dL Albumin (3.5-5.0) g/dL Lipase (23-300) U/L 03/27/23 03/27/23 03/27/23 Range/Units 12:41 12:41 12:41 WBC (3.8-10.6) k/uL RBC (3.80-5.40) m/uL Hgb (11.4-16.0) gm/dL Hct (34.0-46.0) % MCV (80.0-100.0) fL MCH (25.0-35.0) pg MCHC (31.0-37.0) g/dL RDW (11.5-15.5) % Plt Count (150-450) k/uL MPV Neutrophils % % Lymphocytes % % Monocytes % % Eosinophils % % Basophils % % Neutrophils # (1.3-7.7) k/uL Lymphocytes # (1.0-4.8) k/uL Monocytes # (0-1.0) k/uL Eosinophils # (0-0.7) k/uL Basophils # (0-0.2) k/uL PT (9.0-12.0) sec INR (<1.2) APTT (22.0-30.0) sec Sodium 138 (137-145) mmol/L Potassium 4.6 (3.5-5.1) mmol/L Chloride 103 (98-107) mmol/L Carbon Dioxide 27 (22-30) mmol/L Anion Gap 8 mmol/L BUN 12 (7-17) mg/dL Creatinine 0.84 (0.52-1.04) mg/dL Est GFR (CKD-EPI)AfAm >90 (>60 ml/min/1.73 sqM) Est GFR (CKD-EPI)NonAf 79 (>60 ml/min/1.73 sqM) Glucose 126 H (74-99) mg/dL POC Glucose (mg/dL) (70-110) mg/dL POC Glu Director Of Employer Services ID Calcium 9.3 (8.4-10.2) mg/dL Magnesium 2.2 (1.6-2.3) mg/dL Total Bilirubin 0.5 (0.2-1.3) mg/dL AST 25 (14-36) U/L ALT 21 (4-34) U/L Alkaline Phosphatase 150 H (38-126) U/L Troponin I <0.012 (0.000-0.034) ng/mL NT-Pro-B Natriuret Pep 274 pg/mL Total Protein 7.0 (6.3-8.2) g/dL Albumin 4.2 (3.5-5.0) g/dL Lipase 61 (23-300) U/L Disposition Clinical Impression: Chest pain Disposition: HOME SELF-CARE Condition: Stable Instructions (If sedation given, give patient instructions): Chest Pain (ED) Additional Instructions: I recommended hospital admission. Please follow-up with your doctor as soon as possible and return for any new or worsening symptoms Is patient prescribed a controlled substance at d/c from ED?: No Referrals: Ike Meza MD [Primary Care Provider] - 1-2 days Time of Disposition: 15:08
[2023-03-27 12:55] LABS: Basophils % (A) 0 %; Eosinophils # (A) 0.2 k/uL (0-0.7); Eosinophils % (A) 2 %; HCT 39.2 % (34.0-46.0); HGB 12.6 gm/dL (11.4-16.0); Lymphocytes % (A) 33 %; MCH 27.5 pg (25.0-35.0); Mean Platelet Volume 8.1; Monocytes # (A) 0.5 k/uL (0-1.0); Monocytes % (A) 5 %; Neutrophils # (A) 5.1 k/uL (1.3-7.7); Neutrophils % (A) 56 %; Platelet Count 353 k/uL (150-450); RBC 4.56 m/uL (3.80-5.40); RDW 15.3 % (11.5-15.5)
[2023-03-27 13:09] LABS: INR 0.9 (<1.2); Partial Thromboplastin Time 22.4 sec (22.0-30.0); Prothrombin Time 9.6 sec (9.0-12.0)
[2023-03-27 13:28] LABS: ALT 21 U/L (4-34); AST 25 U/L (14-36); African American GFR (CKD) >90 (>60 ml/min/1.73 sqM); Albumin 4.2 g/dL (3.5-5.0); Alkaline Phosphatase 150 U/L (38-126); Anion Gap 8 mmol/L; Blood Urea Nitrogen 12 mg/dL (7-17); Calcium 9.3 mg/dL (8.4-10.2); Carbon Dioxide 27 mmol/L (22-30); Chloride 103 mmol/L (98-107); Glucose 126 mg/dL (74-99); Lipase 61 U/L (23-300); Magnesium 2.2 mg/dL (1.6-2.3); Non-African American GFR(CKD) 79 (>60 ml/min/1.73 sqM); Potassium 4.6 mmol/L (3.5-5.1); Sodium 138 mmol/L (137-145); Total Bilirubin 0.5 mg/dL (0.2-1.3)
--- NOTE | 2023-03-27 13:43 | XR ---
EXAMINATION TYPE: XR chest 2V DATE OF EXAM: 03/27/2023 COMPARISON: 12/17/2022 INDICATION: Weakness TECHNIQUE: Frontal and lateral views of the chest are obtained. FINDINGS: The heart size is normal. The pulmonary vasculature is normal. The lungs are clear. IMPRESSION: 1. No acute pulmonary process.
[2023-03-27 14:52] VITALS: BP 105/68; PULSE 82; RESP 18
== END 2023-03-27 15:14 | disposition home or self-care (01) ==
LOC: EC 11:16
DX: R07.89 Other chest pain (principal); J44.9 Chronic obstructive pulmonary disease, unspecified; K21.9 Gastro-esophageal reflux disease without esophagitis; E11.9 Type 2 diabetes mellitus without complications; I25.2 Old myocardial infarction; I25.10 Atherosclerotic heart disease of native coronary artery without angina pectoris; M19.90 Unspecified osteoarthritis, unspecified site; F31.9 Bipolar disorder, unspecified; F41.9 Anxiety disorder, unspecified; F17.200 Nicotine dependence, unspecified, uncomplicated; F12.90 Cannabis use, unspecified, uncomplicated; Z79.82 Long term (current) use of aspirin; Z79.02 Long term (current) use of antithrombotics/antiplatelets; Z79.51 Long term (current) use of inhaled steroids; Z79.84 Long term (current) use of oral hypoglycemic drugs; Z79.899 Other long term (current) drug therapy
CPT/HCPCS: 36415; 93005; 83880; 80053; 83690; 83735; 84484; 85025; 85610; 85730; 71046; 99285; 96374; 96375; J2270; J2405

== ENCOUNTER 2023-04-03 10:52 | Observation (INO) | payer OTHER ==
[2023-04-03] MEDS ORDERED: MORPHINE SULFATE 4 MG/ML SYRINGE IVP STA (11:25)
[2023-04-03] MEDS ORDERED: ONDANSETRON 4 MG/2 ML VIAL IVP STA (11:37)
--- NOTE | 2023-04-03 11:37 | ED ---
Chest Pain HPI - General Chief Complaint: Chest Pain Stated Complaint: Upper Left Chest Pain Time Seen by Provider: 04/03/23 11:08 Source: EMS Limitations: no limitations - History of Present Illness Initial Comments: 42-year-old female with a past medical history significant for hypertension, hyperlipidemia, tobacco use, type 2 diabetes, and CAD S/PE CABG and stenting presents to ED with a chief complaint of chest pain. Patient states started to experience chest pain this morning at 9 PM while at rest. Pain is on the left side of her chest and radiates to her left arm. She notes similar to history of prior angina. Associated nausea and vomiting. Patient states she took a nitro which improved pain initially however notes upon EMS arrival additional nitro did not improve pain. Associated palpitations and shortness of breath. No other complaints. - Related Data Home Medications Medication Instructions Recorded Confirmed Atorvastatin [Lipitor] 80 mg PO DAILY 07/08/20 04/03/23 ARIPiprazole [Abilify] 5 mg PO DAILY 11/13/21 04/03/23 Ranolazine [Ranexa] 1,000 mg PO BID 11/13/21 04/03/23 lisinopriL [Zestril] 5 mg PO DAILY 12/10/22 04/03/23 Albuterol Inhaler [Ventolin Hfa 1 - 2 puff INHALATION RT-Q4H PRN 03/27/23 04/03/23 Inhaler] Aspirin EC [Ecotrin Low Dose] 81 mg PO DAILY 03/27/23 04/03/23 Budesonide/Formoterol Fumarate 2 puff INHALATION RT-BID 03/27/23 04/03/23 [Symbicort 160-4.5 Mcg Inhaler] Clopidogrel [Plavix] 75 mg PO DAILY 03/27/23 04/03/23 Dulaglutide [Trulicity] 1.5 mg SQ TU 03/27/23 04/03/23 Escitalopram [Lexapro] 20 mg PO DAILY 03/27/23 04/03/23 Isosorbide Dinitrate 30 mg PO BID 03/27/23 04/03/23 Metoprolol Tartrate [Lopressor] 50 mg PO BID 03/27/23 04/03/23 Nitroglycerin Sl Tabs [Nitrostat] 0.4 mg SUBLINGUAL Q5M PRN 03/27/23 04/03/23 Omeprazole 40 mg PO BID 03/27/23 04/03/23 Ondansetron [Zofran] 4 mg PO TID PRN 03/27/23 04/03/23 Pregabalin [Lyrica] 150 mg PO BID 03/27/23 04/03/23 Spiriva Respimat 1.25mcg/Actua 2 puff INHALATION RT-DAILY 03/27/23 04/03/23 amLODIPine [Norvasc] 10 mg PO DAILY 03/27/23 04/03/23 diphenhydrAMINE [Benadryl] 25 mg PO BID 03/27/23 04/03/23 metFORMIN HCL 1,000 mg PO BID 03/27/23 04/03/23 rOPINIRole HCL [Requip] 1 mg PO HS 03/27/23 04/03/23 Allergies Allergy/AdvReac Type Severity Reaction Status Date / Time No Known Allergies Allergy Verified 04/03/23 12:29 Review of Systems ROS Statement: Those systems with pertinent positive or pertinent negative responses have been documented in the HPI. ROS Other: All systems not noted in ROS Statement are negative. Past Medical History Past Medical History: Asthma, Coronary Artery Disease (CAD), COPD, Diabetes Mellitus, GERD/Reflux, Myocardial Infarction (DC), Osteoarthritis (OA) Additional Past Medical History / Comment(s): DDD Last Myocardial Infarction Date:: 2011 History of Any Multi-Drug Resistant Organisms: None Reported Past Surgical History: Coronary Bypass/CABG, Heart Catheterization With Stent Additional Past Surgical History / Comment(s): seven stents Past Anesthesia/Blood Transfusion Reactions: No Reported Reaction Date of Last Stent Placement:: 11/2018 Past Psychological History: Anxiety, Bipolar Smoking Status: Current every day smoker Past Alcohol Use History: Occasional Past Drug Use History: Marijuana - Past Family History Mother Family Medical History: Cancer Additional Family Medical History / Comment(s): Ovarian cancer Father Family Medical History: Congestive Heart Failure (CHF) Fmily Family Medical History: No Reported History General Exam Limitations: no limitations General appearance: alert, in distress Eye exam: Present: normal appearance Respiratory exam: Present: wheezes Cardiovascular Exam: Present: regular rate, normal rhythm Neurological exam: Present: alert, oriented X3 Course Vital Signs 04/03/23 11:07 Temperature 97.6 F Pulse Rate 85 Respiratory 18 Rate Blood Pressure 176/100 O2 Sat by Pulse 98 Oximetry Chest Pain MDM - MDM Was pt. sent in by a medical professional or institution (, PA, EASTERN PHILOSOPHY PROFESSOR, urgent care, hospital, or long term...) When possible be specific @ -No Did you speak to anyone other than the patient for history (EMS, parent, family, police, friend...)? What history was obtained from this source @ -No Did you review nursing and triage notes (agree or disagree)? Why? @ -I reviewed and agree with nursing and triage notes Were old charts reviewed (outside hosp., previous admission, EMS record, old EKG, old radiological studies, urgent care reports/EKG's, long term records)? Report findings @ -Charts reviewed showing history of coronary disease status post CABG and stent additional history of hypertension and hyperlipidemia. Prior EKG reviewed for comparison to new. Differential Diagnosis (chest pain, altered mental status, abdominal pain women, abdominal pain men, vaginal bleeding, weakness, fever, dyspnea, syncope, headache, dizziness, GI bleed, back pain, seizure, CVA, palpatations, mental health, musculoskeletal)? @ -Differential Chest Pain: Stable Angina, Unstable Angina, STEMI, NSTEMI Aortic Dissection, Pneumothorax, Musculoskeletal, Esophageal Spasm GERD, Cholecystitis, Pancreatitis, Zoster, this is not meant to be an all-inclusive list. EKG interpreted by me (3pts min.). @ -EKG shows a sinus rhythm with diffuse ST and T-wave changes. New T-wave inversions in leads 1 and aVL compared to prior. T-wave changes in V2. 75 bpm, AR 135, QRS 88, QT/QTc 356/385. X-rays interpreted by me (1pt min.). @ -X-ray shows no acute process CT interpreted by me (1pt min.). @ -None done U/S interpreted by me (1pt. min.). @ -None done What testing was considered but not performed or refused? (CT, X-rays, U/S, labs)? Why? @ -None What meds were considered but not given or refused? Why? @ -None Did you discuss the management of the patient with other professionals (professionals i.e. , PA, EASTERN PHILOSOPHY PROFESSOR, lab, RT, psych nurse, executive secretary social welfare, tip fixer, teacher, ship officer, residential case manager)? Give summary @ -Spoke to Dr. Rinaldi who accepted admission. Was smoking cessation discussed for >3mins.? @ -No Was critical care preformed (if so, how long)? @ -No Were there social determinants of health that impacted care today? How? (Homelessness, low income, unemployed, alcoholism, drug addiction, transportation, low edu. Level, literacy, decrease access to med. care, snf, rehab)? @ -No Was there de-escalation of care discussed even if they declined (Discuss DNR or withdrawal of care, Hospice)? DNR status @ -No What co-morbidities impacted this encounter? (DM, HTN, Smoking, COPD, CAD, Cancer, CVA, ARF, Chemo, Hep., AIDS, mental health diagnosis, sleep apnea, morbid obesity)? @ -Hypertension, hyperlipidemia, smoking Was patient admitted / discharged? Hospital course, mention meds given and route, prescriptions, significant lab abnormalities, going to OR and other pertinent info. @ -Admission. Initial troponin negative. Chest x-ray as above. Patient will be admitted to observation with consultation to cardiology for chest pain rule out. Discussed plan of care with patient who is in agreement. Spoke to Dr. Rinaldi who accepted admission. Undiagnosed new problem with uncertain prognosis? @ -No Drug Therapy requiring intensive monitoring for toxicity (Heparin, Nitro, Insulin, Cardizem)? @ -No Were any procedures done? @ -No Diagnosis/symptom? @ -Chest pain Acute, or Chronic, or Acute on Chronic? @ -Acute Uncomplicated (without systemic symptoms) or Complicated (systemic symptoms)? @ -Uncomplicated Side effects of treatment? @ -No Exacerbation, Progression, or Severe Exacerbation? @ -No Poses a threat to life or bodily function? How? (Chest pain, USA, [place], pneumonia, PE, COPD, DKA, ARF, appy, cholecystitis, CVA, Diverticulitis, Homicidal, Suicidal, threat to staff... and all critical care pts) @ Yes, Chest pain Disposition Clinical Impression: Chest pain Disposition: ADMITTED IP TO THIS [facility] Condition: Good Referrals: Ike Meza MD [Primary Care Provider] - 1-2 days Time of Disposition: 12:50
[2023-04-03 11:49] LABS: Basophils % (A) 0 %; Eosinophils # (A) 0.3 k/uL (0-0.7); Eosinophils % (A) 2 %; HCT 44.1 % (34.0-46.0); Hypochromasia Slight; Lymphocytes # (A) 2.6 k/uL (1.0-4.8); Lymphocytes % (A) 14 %; MCH 27.3 pg (25.0-35.0); MCHC 31.7 g/dL (31.0-37.0); MCV 86.2 fL (80.0-100.0); Monocytes # (A) 0.7 k/uL (0-1.0); Monocytes % (A) 4 %; Neutrophils # (A) 13.9 k/uL (1.3-7.7); Neutrophils % (A) 77 %; Platelet Count 337 k/uL (150-450); RBC 5.12 m/uL (3.80-5.40); RDW 15.1 % (11.5-15.5); WBC 17.9 k/uL (3.8-10.6)
--- NOTE | 2023-04-03 12:02 | XR ---
EXAMINATION TYPE: XR chest 2V DATE OF EXAM: 04/03/2023 11:56 AM COMPARISON: Chest radiographs from 03/27/2023 TECHNIQUE: XR chest 2V Frontal and lateral views of the chest. CLINICAL INDICATION:Female, 52 years old with history of Chest Pain; FINDINGS: Lungs/Pleura: There is no evidence of pleural effusion, focal consolidation, or pneumothorax. Pulmonary vascularity: Unremarkable. Heart/mediastinum: Cardiomediastinal silhouette is unremarkable. Coronary artery stent grafts noted. Musculoskeletal: No acute osseous pathology. Midline sternotomy wires are noted. IMPRESSION: No acute cardiopulmonary disease/process.
[2023-04-03 12:22] LABS: ALT 23 U/L (4-34); AST 30 U/L (14-36); African American GFR (CKD) 80 (>60 ml/min/1.73 sqM); Albumin 4.8 g/dL (3.5-5.0); Alkaline Phosphatase 171 U/L (38-126); Anion Gap 10 mmol/L; Blood Urea Nitrogen 15 mg/dL (7-17); Calcium 9.9 mg/dL (8.4-10.2); Carbon Dioxide 19 mmol/L (22-30); Chloride 110 mmol/L (98-107); Glucose 95 mg/dL (74-99); Magnesium 1.9 mg/dL (1.6-2.3); Non-African American GFR(CKD) 69 (>60 ml/min/1.73 sqM); Potassium 4.5 mmol/L (3.5-5.1); Sodium 139 mmol/L (137-145); Total Bilirubin 0.5 mg/dL (0.2-1.3); Total Protein 7.9 g/dL (6.3-8.2)
[2023-04-03 12:30] LABS: INR 0.9 (<1.2); Prothrombin Time 9.4 sec (9.0-12.0)
[2023-04-03 12:34] LABS: Partial Thromboplastin Time 21.8 sec (22.0-30.0)
[2023-04-03] MEDS ORDERED: NALOXONE 0.4 MG/ML 1 ML VIAL IV PRN (12:56)
[2023-04-03] MEDS ORDERED: ACETAMINOPHEN TAB 325 MG TAB PO PRN (12:57)
[2023-04-03] MEDS ORDERED: ONDANSETRON 4 MG/2 ML VIAL IVP PRN (12:57)
[2023-04-03] MEDS: SODIUM CHLORIDE 0.9% 1,000 ML IV SCH (13:03)
[2023-04-03] MEDS ORDERED: ALBUTEROL NEBULIZED 2.5 MG/3 ML INHALATION PRN (14:28)
[2023-04-03] MEDS ORDERED: DEXTROSE 50% SYRINGE 50 ML IVP PRN ×2 (14:32)
--- NOTE | 2023-04-03 14:32 | P.HPIM ---
History of Present Illness H&P Date: 04/03/23 History of present illness; patient is a 52-year-old lady with past medical history significant for coronary artery disease status post CABG, hypertension, hyperlipidemia, tobacco use who presented to The ER because of chest pain. Patient stated that she was all right this morning when while sitting in the chair she started experiencing left-sided chest pain, it was severe in intensity, stabbing in nature, radiating to her left shoulder and jaw. It was associated with shortness of breath. Patient took some nitroglycerin that relieved her pain but after a few moments chest pain came back at which time she took another dose of nitro decided to come to the ER. In the ER, initial lab work done in the ER showed WBC 17.9, hemoglobin 14, platelet count 337, sodium 139, potassium 4.5, BUN 15, creatinine 0.94, Initial EKG done did not show any ST segment changes, no T-wave inversion. Patient was admitted to medicine service REVIEW OF SYSTEMS: CONSTITUTIONAL: No fever, no malaise, no fatigue. HEENT: No recent visual problems or hearing problems. Denied any sore throat. CARDIOVASCULAR: As mentioned in HPI PULMONARY: No shortness of breath, no cough, no hemoptysis. GASTROINTESTINAL: No diarrhea, no nausea, no vomiting, no abdominal pain. NEUROLOGICAL: No headaches, no weakness, no numbness. HEMATOLOGICAL: Denies any bleeding or petechiae. GENITOURINARY: Denies any burning micturition, frequency, or urgency. MUSCULOSKELETAL/RHEUMATOLOGICAL: Denies any joint pain, swelling, or any muscle pain. ENDOCRINE: Denies any polyuria or polydipsia. The rest of the 14-point review of systems is negative. PHYSICAL EXAMINATION: GENERAL: The patient is alert and oriented x3, not in any acute distress. Well developed, well nourished. HEENT: Pupils are round and equally reacting to light. EOMI. No scleral icterus. No conjunctival pallor. Normocephalic, atraumatic. No pharyngeal erythema. No thyromegaly. CARDIOVASCULAR: S1 and S2 present. No murmurs, rubs, or gallops. PULMONARY: Chest is clear to auscultation, no wheezing or crackles. ABDOMEN: Soft, nontender, nondistended, normoactive bowel sounds. No palpable organomegaly. MUSCULOSKELETAL: No joint swelling or deformity. EXTREMITIES: No cyanosis, clubbing, or pedal edema. NEUROLOGICAL: Gross neurological examination did not reveal any focal deficits. SKIN: No rashes. Assessment and plan Chest pain Hypertension Hyperlipidemia History of coronary artery disease Monitor vital signs Monitor CBC Monitor CMP Trend troponin Telemetry monitoring Ordered 2-D echo Ordered lipid panel Continue aspirin Consult cardiology DVT prophylaxis: Past Medical History Past Medical History: Asthma, Coronary Artery Disease (CAD), COPD, Diabetes Mellitus, GERD/Reflux, Myocardial Infarction (PR), Osteoarthritis (OA) Additional Past Medical History / Comment(s): DDD Last Myocardial Infarction Date:: 2011 History of Any Multi-Drug Resistant Organisms: None Reported Past Surgical History: Coronary Bypass/CABG, Heart Catheterization With Stent Additional Past Surgical History / Comment(s): seven stents Past Anesthesia/Blood Transfusion Reactions: No Reported Reaction Date of Last Stent Placement:: 11/2018 Past Psychological History: Anxiety, Bipolar Smoking Status: Current every day smoker Past Alcohol Use History: Occasional Past Drug Use History: Marijuana - Past Family History Mother Family Medical History: Cancer Additional Family Medical History / Comment(s): Ovarian cancer Father Family Medical History: Congestive Heart Failure (CHF) Fmily Family Medical History: No Reported History Medications and Allergies Home Medications Medication Instructions Recorded Confirmed Type Atorvastatin [Lipitor] 80 mg PO DAILY 07/08/20 04/03/23 History ARIPiprazole [Abilify] 5 mg PO DAILY 11/13/21 04/03/23 History Ranolazine [Ranexa] 1,000 mg PO BID 11/13/21 04/03/23 History lisinopriL [Zestril] 5 mg PO DAILY 12/10/22 04/03/23 History Albuterol Inhaler [Ventolin Hfa 1 - 2 puff INHALATION RT-Q4H PRN 03/27/23 04/03/23 History Inhaler] Aspirin EC [Ecotrin Low Dose] 81 mg PO DAILY 03/27/23 04/03/23 History Budesonide/Formoterol Fumarate 2 puff INHALATION RT-BID 03/27/23 04/03/23 History [Symbicort 160-4.5 Mcg Inhaler] Clopidogrel [Plavix] 75 mg PO DAILY 03/27/23 04/03/23 History Dulaglutide [Trulicity] 1.5 mg SQ TU 03/27/23 04/03/23 History Escitalopram [Lexapro] 20 mg PO DAILY 03/27/23 04/03/23 History Isosorbide Dinitrate 30 mg PO BID 03/27/23 04/03/23 History Metoprolol Tartrate [Lopressor] 50 mg PO BID 03/27/23 04/03/23 History Nitroglycerin Sl Tabs [Nitrostat] 0.4 mg SUBLINGUAL Q5M PRN 03/27/23 04/03/23 History Omeprazole 40 mg PO BID 03/27/23 04/03/23 History Ondansetron [Zofran] 4 mg PO TID PRN 03/27/23 04/03/23 History Pregabalin [Lyrica] 150 mg PO BID 03/27/23 04/03/23 History Spiriva Respimat 1.25mcg/Actua 2 puff INHALATION RT-DAILY 03/27/23 04/03/23 History amLODIPine [Norvasc] 10 mg PO DAILY 03/27/23 04/03/23 History diphenhydrAMINE [Benadryl] 25 mg PO BID 03/27/23 04/03/23 History metFORMIN HCL 1,000 mg PO BID 03/27/23 04/03/23 History rOPINIRole HCL [Requip] 1 mg PO HS 03/27/23 04/03/23 History Allergies Allergy/AdvReac Type Severity Reaction Status Date / Time No Known Allergies Allergy Verified 04/03/23 12:29 Physical Exam Vitals: Vital Signs Temp Pulse Resp BP Pulse Ox 04/03/23 13:00 77 20 162/107 04/03/23 11:07 97.6 F 85 18 176/100 98 Intake and Output 04/02/23 04/03/23 04/03/23 22:59 06:59 14:59 Other: Weight 90.718 kg Results CBC & Chem 7: 04/03/23 11:29 04/03/23 11:29 Labs: Abnormal Lab Results - Last 24 Hours (Table) 04/03/23 04/03/23 04/03/23 Range/Units 11:29 11:29 11:29 WBC 17.9 H (3.8-10.6) k/uL Neutrophils # 13.9 H (1.3-7.7) k/uL APTT 21.8 L (22.0-30.0) sec Chloride 110 H (98-107) mmol/L Carbon Dioxide 19 L (22-30) mmol/L Alkaline Phosphatase 171 H (38-126) U/L
[2023-04-03 15:13] LABS: Glucose,Whole Blood 95 mg/dL (70-110)
[2023-04-03] MEDS: HYDROmorphone 1 MG/ML 1 ML SYRINGE IVP PRN ×2 (15:15→19:57)
[2023-04-03 16:47] LABS: Glucose,Whole Blood 119 mg/dL (70-110)
[2023-04-03] MEDS: INSULIN ASPART (NovoLOG) 100 UNIT/ML VIAL SQ SCH ×2 (16:48→21:09)
[2023-04-03] MEDS: IPRATROPIUM 0.5 MG/2.5 ML NEBU INHALATION SCH ×2 (17:21→19:33)
[2023-04-03] MEDS: PANTOPRAZOLE 40 MG TABLET PO SCH (17:32)
[2023-04-03] MEDS: SYMBICORT 160-4.5 MCG INHALER INHALATION SCH (19:33)
[2023-04-03 20:49] LABS: Glucose,Whole Blood 126 mg/dL (70-110)
[2023-04-03] MEDS: diphenhydrAMINE 25 MG CAP PO SCH (21:05)
[2023-04-03] MEDS: PREGABALIN 75 MG CAP PO SCH (21:05)
[2023-04-03] MEDS: RANOLAZINE 500 MG TAB.ER.12H PO SCH (21:05)
[2023-04-03] MEDS: ISOSORBIDE DINITRATE 10 MG TAB PO SCH (21:05)
--- NOTE | 2023-04-03 22:51 | CONS ---
CONSULTATION REFERRING PHYSICIAN: James Rinaldi. CHIEF COMPLAINT: Chest pain. HISTORY OF PRESENT ILLNESS: Griselda is a 52-year-old lady with history of coronary artery disease status post bypass surgery, hypertension, dyslipidemia, who presents to hospital complaining of chest pain. She describes the chest discomfort as left-sided that radiates to her left shoulder and jaw. She was just in the hospital back in November with very similar symptoms ruled out for myocardial infarction, underwent a stress test that revealed normal myocardial perfusion function. The patient had a cardiac catheterization a year ago that revealed patent venous graft to LAD and occluded venous graft to the circ. At the time of my evaluation, she appears comfortable at rest and states that the only thing that is helping the pain is pain medication. CBC shows that the white cell count is elevated. Two sets of troponins are negative. EKG does not reveal acute ischemic changes. She had a chest x-ray that is unremarkable. D-dimer is elevated at 1.19, but it was 1.1 even at last visit. She has a chronically elevated D-dimer. PAST MEDICAL HISTORY: Significant for coronary artery disease status post CABG, hypertension, diabetes, dyslipidemia and COPD. CURRENT MEDICATIONS: Include, 1. Aspirin. 2. Lipitor. 3. Abilify. 4. Symbicort. 5. Plavix. 6. Trulicity. 7. Lexapro. 8. Lopressor. 9. Ranexa. 10.Lyrica. 11.Omeprazole. 12.Zofran. 13.Requip. 14.Vistaril. 15.Benadryl. ALLERGIES: There are no known drug allergies. FAMILY HISTORY: Negative for premature coronary artery disease. SOCIAL HISTORY: Denies smoking, ETOH abuse, or drug abuse. REVIEW OF SYSTEMS: 14 out of 14 review of systems has been performed. Pertinents are as documented in history of presenting illness. PHYSICAL EXAMINATION: GENERAL: On exam, comfortable at rest. VITAL SIGNS: Stable. NECK: There jugular venous distention. Carotid upstroke is normal. There is no bruit. CHEST: Reveals good air entry bilaterally. HEART: Reveals first and second heart sounds. No gallop. No murmur. No rub. ABDOMEN: Soft, nontender. EXTREMITIES: Exam of extremities did not reveal any edema. Peripheral pulses are felt. DIAGNOSTIC DATA: EKG shows sinus rhythm without acute ST-T wave changes. Cardiac enzymes have been negative. I reviewed rest of plan. She has elevated white cell count of unclear clinical significance . ASSESSMENT AND PLAN: 1. Precordial chest pain. 2. Coronary artery disease, status post coronary artery bypass grafting. PLAN: The patient had a stress test within the last 2 months that did not reveal any ischemia. I am going to treat her with continued aggressive and optimal medical therapy. Obtain a 2D echo to evaluate LV function. Once the chest discomfort resolves, we should be able to discharge her home. SEGUNDO / IJN: [id number] /
[2023-04-04] MEDS: HYDROmorphone 1 MG/ML 1 ML SYRINGE IVP PRN ×4 (01:20→20:13)
[2023-04-04] MEDS: SODIUM CHLORIDE 0.9% 1,000 ML IV SCH ×2 (01:22→15:04)
[2023-04-04] MEDS: HYDROcodone/APAP 5-325MG 1 EACH TAB PO PRN (05:44)
[2023-04-04 08:07] LABS: Glucose,Whole Blood 114 mg/dL (70-110)
[2023-04-04] MEDS: IPRATROPIUM 0.5 MG/2.5 ML NEBU INHALATION SCH ×4 (08:17→19:36)
[2023-04-04] MEDS: SYMBICORT 160-4.5 MCG INHALER INHALATION SCH ×2 (08:17→19:36)
[2023-04-04 09:02] LABS: ALT 22 U/L (4-34); AST 30 U/L (14-36); African American GFR (CKD) >90 (>60 ml/min/1.73 sqM); Albumin 3.9 g/dL (3.5-5.0); Albumin/Globulin Ratio 1.5; Alkaline Phosphatase 140 U/L (38-126); Anion Gap 7 mmol/L; Blood Urea Nitrogen 12 mg/dL (7-17); Calcium 8.8 mg/dL (8.4-10.2); Carbon Dioxide 23 mmol/L (22-30); Chloride 108 mmol/L (98-107); Globulin 2.6 g/dL; Glucose 118 mg/dL (74-99); Non-African American GFR(CKD) 88 (>60 ml/min/1.73 sqM); Potassium 4.3 mmol/L (3.5-5.1); Sodium 138 mmol/L (137-145); Total Bilirubin 0.6 mg/dL (0.2-1.3); Total Protein 6.5 g/dL (6.3-8.2)
--- NOTE | 2023-04-04 10:15 | PN ---
PROGRESS NOTE SUBJECTIVE: Griselda is a 52-year-old lady, with known coronary artery disease, status post prior bypass surgery; hypertension; and dyslipidemia, who presented to hospital complaining of chest discomfort. EKG did not reveal acute ischemic changes and her 3 sets of troponins have all been negative. At the time of my evaluation this morning, she appears comfortable at rest and is free of symptoms. The patient had a stress test earlier in the year that did not reveal any ischemia. Had a cardiac catheterization last year and was advised medical therapy. As soon as we had information on the echocardiogram, we should be able to discharge her. I asked her to ambulate and she has done that without any issues. OBJECTIVE: GENERAL: The patient is comfortable at rest VITAL SIGNS: Stable. CHEST: Reveals good air entry bilaterally. HEART: Reveals first and second heart sounds. No gallop. No murmur. ABDOMEN: Soft, nontender. EXTREMITIES: Did not reveal any edema. Peripheral pulses are felt. LABORATORY DATA: Showed that the potassium is 4.3 creatinine is 0.7. Hemoglobin is 14. ASSESSMENT: 1. Precordial chest pain, myocardial infarction ruled out. 2. Coronary artery disease, status post coronary artery bypass graft. 3. Elevated white cell count of unclear clinical significance. PLAN: I will obtain a 2D echo. 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 SEGUNDO / KATE: [id number] /
[2023-04-04] MEDS: INSULIN ASPART (NovoLOG) 100 UNIT/ML VIAL SQ SCH ×4 (10:19→21:42)
[2023-04-04] MEDS: amLODIPine 10 MG TAB PO SCH (10:21)
[2023-04-04] MEDS: ARIPiprazole 5 MG TAB PO SCH (10:21)
[2023-04-04] MEDS: PANTOPRAZOLE 40 MG TABLET PO SCH ×2 (10:21→18:25)
[2023-04-04] MEDS: ATORVASTATIN 80 MG TAB PO SCH (10:21)
[2023-04-04] MEDS: ASPIRIN 81 MG PO SCH (10:21)
[2023-04-04] MEDS: CLOPIDOGREL 75 MG TAB PO SCH (10:21)
[2023-04-04] MEDS: diphenhydrAMINE 25 MG CAP PO SCH ×2 (10:21→21:49)
[2023-04-04] MEDS: PREGABALIN 75 MG CAP PO SCH ×2 (10:21→21:49)
[2023-04-04] MEDS: ESCITALOPRAM 20 MG TAB PO SCH (10:21)
[2023-04-04] MEDS: RANOLAZINE 500 MG TAB.ER.12H PO SCH ×2 (10:22→21:49)
[2023-04-04] MEDS: lisinopriL 5 MG TAB PO SCH (10:22)
[2023-04-04] MEDS: ISOSORBIDE DINITRATE 10 MG TAB PO SCH ×2 (10:22→21:49)
[2023-04-04 11:41] LABS: Glucose,Whole Blood 113 mg/dL (70-110)
--- NOTE | 2023-04-04 14:33 | P.PN ---
Subjective Progress Note Date: 04/04/23 patient is a 52-year-old lady with past medical history significant for coronary artery disease status post CABG, hypertension, hyperlipidemia, tobacco use who presented to The ER because of chest pain. Patient stated that she was all right this morning when while sitting in the chair she started experiencing left-sided chest pain, it was severe in intensity, stabbing in nature, radiating to her left shoulder and jaw. It was associated with shortness of breath. Patient took some nitroglycerin that relieved her pain but after a few moments chest pain came back at which time she took another dose of nitro decided to come to the ER. In the ER, initial lab work done in the ER showed WBC 17.9, hemoglobin 14, platelet count 337, sodium 139, potassium 4.5, BUN 15, creatinine 0.94, Initial EKG done did not show any ST segment changes, no T-wave inversion. Patient was admitted to medicine service 04/04. Patient seen and examined. Has any further episodes of chest pain. Vital signs stable REVIEW OF SYSTEMS: CONSTITUTIONAL: No fever, no malaise,. CARDIOVASCULAR: No chest pain, no palpitations, no syncope. PULMONARY: No shortness of breath, no cough, GASTROINTESTINAL: No diarrhea, no nausea, no vomiting, no abdominal pain. NEUROLOGICAL: No headaches, no weakness, PHYSICAL EXAMINATION: GENERAL: The patient is alert and oriented x3, not in any acute distress. Well developed, well nourished. HEENT: Pupils are round and equally reacting to light. EOMI. No scleral icterus. No conjunctival pallor. Normocephalic, atraumatic. No pharyngeal erythema. No thyromegaly. CARDIOVASCULAR: S1 and S2 present. No murmurs, rubs, or gallops. PULMONARY: Chest is clear to auscultation, no wheezing or crackles. ABDOMEN: Soft, nontender, nondistended, normoactive bowel sounds. No palpable organomegaly. MUSCULOSKELETAL: No joint swelling or deformity. EXTREMITIES: No cyanosis, clubbing, or pedal edema. NEUROLOGICAL: Gross neurological examination did not reveal any focal deficits. SKIN: No rashes. Assessment and plan Chest pain Hypertension Hyperlipidemia History of coronary artery disease Monitor vital signs Monitor CBC Monitor CMP Continue telemetry monitoring Follow-up on 2-D echo. Cardiology recommended keeping patient current medications and following up on 2-D echo Labs and medication were reviewed.. Continue same treatment. Continue with symptomatic treatment. Resume home medication. Monitor labs and vitals. DVT and GI prophylaxis. Further recommendations as per clinical course of the patient Objective - Vital Signs Vital signs: Vital Signs Temp 97.5 F L 04/04/23 14:20 Pulse 95 04/04/23 14:20 Resp 18 04/04/23 14:20 BP 116/70 04/04/23 14:20 Pulse Ox 91 L 04/04/23 14:20 FiO2 Intake & Output 04/03/23 04/04/23 04/04/23 18:59 06:59 18:59 Intake Total 0 Balance 0 Weight 90.718 kg Intake: Oral 0 Other: # Voids 1 # Bowel Movements 0 - Labs CBC & Chem 7: 04/03/23 11:29 04/04/23 08:29 Labs: Abnormal Lab Results - Last 24 Hours (Table) 04/03/23 04/03/23 04/03/23 Range/Units 12:00 16:45 20:47 D-Dimer 1.19 H (<0.60) mg/L FEU Chloride (98-107) mmol/L Glucose (74-99) mg/dL POC Glucose (mg/dL) 119 H 126 H (70-110) mg/dL Alkaline Phosphatase (38-126) U/L 04/04/23 04/04/23 04/04/23 Range/Units 08:06 08:29 11:40 D-Dimer (<0.60) mg/L FEU Chloride 108 H (98-107) mmol/L Glucose 118 H (74-99) mg/dL POC Glucose (mg/dL) 114 H 113 H (70-110) mg/dL Alkaline Phosphatase 140 H (38-126) U/L
[2023-04-04 16:36] LABS: HCT 41.4 % (37.2-46.3); HGB 12.4 d/dL (12.0-15.0); MCH 26.6 pg (27.0-32.0); MCV 88.7 FL (80.0-97.0); Mean Platelet Volume 10.4 FL (9.5-12.2); NRBC Per 100 WBC 0 X 10*3/uL (0.00-0.01); Platelet Count 297 X 10*3/uL (140-440); RBC 4.67 X 10*6/uL (4.10-5.20); RDW 15.5 % (11.5-14.5)
[2023-04-04 17:27] LABS: Glucose,Whole Blood 108 mg/dL (70-110)
--- NOTE | 2023-04-04 17:42 | CA ---
Transthoracic Echo Report Name: Griselda Mcadams Age: 52 Gender: F : 1970 Exam Date: 04/04/2023 09:39 Exam Location: [facility] Ht (in): 65 Wt (lb): 200 Ordering Physician: Isra Rinaldi MD Attending/Referring Phys: Chip Frier TM Procedure CPT: Indications: Slurred speech, CVA Cardiac Hx: Technical Quality: Very technically difficult study Contrast 1: Lumason Total Dose (mL): 5 Contrast 2: Agitated Saline Total Dose (mL): 10 MEASUREMENTS (Male / Female) Normal Values 2D ECHO LV Systolic Diameter PLAX 3.2 cm RV Internal Dim ED PLAX 2.6 cm LVOT Diameter 2.0 cm Aortic Root Diameter 2.8 cm LA Systolic Diameter LX 2.6 cm 3.0 - 4.0 / 2.7 - 3.8 cm LV Diastolic Volume MOD BP 71.1 cm??? 67 - 155 / 56 - 104 cm??? LV Systolic Volume MOD BP 26.4 cm??? 22 - 58 / 19 - 49 cm??? LV Ejection Fraction MOD BP 62.8 % >= 55 % LV Diastolic Volume MOD 4C 80.2 cm??? LV Systolic Volume MOD 4C 29.2 cm??? LV Ejection Fraction MOD 4C 63.6 % LV Diastolic Length 4C 7.7 cm LV Systolic Length 4C 6.8 cm LV Diastolic Volume MOD 2C 57.7 cm??? LV Systolic Volume MOD 2C 21.8 cm??? LV Ejection Fraction MOD 2C 62.2 % LV Diastolic Length 2C 7.0 cm LV Systolic Length 2C 6.2 cm LA Volume 44.4 cm??? 18 - 58 / 22 - 52 cm??? DOPPLER AV Peak Velocity 203.8 cm/s AV Peak Gradient 16.6 mmHg AV Mean Velocity 124.3 cm/s AV Mean Gradient 7.5 mmHg AV Velocity Time Integral 40.2 cm AI Peak Velocity 374.9 cm/s AI Peak Gradient 56.2 mmHg AI Pressure Half Time 705.3 ms LVOT Peak Velocity 118.7 cm/s LVOT Peak Gradient 5.6 mmHg AV Area Cont Eq pk 1.9 cm??? MV Peak Velocity 109.2 cm/s MV Peak Gradient 4.8 mmHg MV Mean Velocity 55.9 cm/s MV Mean Gradient 1.6 mmHg MV Velocity Time Integral 48.3 cm MR Peak Velocity 280.8 cm/s MR Peak Gradient 31.5 mmHg Mitral E Point Velocity 91.2 cm/s Mitral A Point Velocity 69.9 cm/s Mitral E to A Ratio 1.3 MV Deceleration Time 278.9 ms TR Peak Velocity 144.2 cm/s TR Peak Gradient 8.3 mmHg PV Peak Velocity 143.1 cm/s PV Peak Gradient 8.2 mmHg FINDINGS Left Ventricle Normal LV size. Left ventricular ejection fraction is estimated at 55-60 %. Right Ventricle Normal right ventricular size. Right Atrium Normal right atrial size. Left Atrium Normal left atrial size. Mitral Valve Structurally normal mitral valve. Trace MR. Aortic Valve Aortic valve not well visualized. Moderate AI. Tricuspid Valve Tricuspid valve not well visualized. Trace TR. Pulmonic Valve Pulmonic valve not well visualized. No pulmonic regurgitation. Pericardium Normal pericardium. Aorta Normal size aortic root and proximal ascending aorta. CONCLUSIONS Normal LV function Moderate aortic regurgitation Previewed by: Dr. Navin Mcfarlane MD (Electronically Signed) Final Date: 04 April 2023 17:42
[2023-04-04 17:44] LABS: Chol/HDL Ratio 4.02 Ratio; LDL Cholesterol,Calculated 120.9 mg/dL (0.0-131.0)
[2023-04-04 21:05] LABS: Glucose,Whole Blood 120 mg/dL (70-110)
[2023-04-05] MEDS: HYDROmorphone 1 MG/ML 1 ML SYRINGE IVP PRN (03:25)
[2023-04-05] MEDS: SODIUM CHLORIDE 0.9% 1,000 ML IV SCH (06:20)
[2023-04-05] MEDS: PANTOPRAZOLE 40 MG TABLET PO SCH (06:21)
[2023-04-05 06:28] LABS: Glucose,Whole Blood 118 mg/dL (70-110)
[2023-04-05] MEDS: INSULIN ASPART (NovoLOG) 100 UNIT/ML VIAL SQ SCH (06:31)
[2023-04-05] MEDS: SYMBICORT 160-4.5 MCG INHALER INHALATION SCH (07:58)
[2023-04-05] MEDS: IPRATROPIUM 0.5 MG/2.5 ML NEBU INHALATION SCH ×3 (07:59→15:19)
[2023-04-05 08:46] VITALS: BP 108/73; PULSE 80; RESP 18; TEMP 98.1
[2023-04-05] MEDS: ESCITALOPRAM 20 MG TAB PO SCH (08:46)
[2023-04-05] MEDS: CLOPIDOGREL 75 MG TAB PO SCH (08:46)
[2023-04-05] MEDS: amLODIPine 10 MG TAB PO SCH (08:46)
[2023-04-05] MEDS: diphenhydrAMINE 25 MG CAP PO SCH (08:47)
[2023-04-05] MEDS: ASPIRIN 81 MG PO SCH (08:47)
[2023-04-05] MEDS: ATORVASTATIN 80 MG TAB PO SCH (08:47)
[2023-04-05] MEDS: RANOLAZINE 500 MG TAB.ER.12H PO SCH (08:47)
[2023-04-05] MEDS: lisinopriL 5 MG TAB PO SCH (08:47)
[2023-04-05] MEDS: PREGABALIN 75 MG CAP PO SCH (08:47)
[2023-04-05] MEDS: HYDROcodone/APAP 5-325MG 1 EACH TAB PO PRN (08:48)
[2023-04-05] MEDS ORDERED: ISOSORBIDE DINITRATE 20 MG TAB PO SCH (09:00)
--- NOTE | 2023-04-05 09:49 | P.PN ---
Subjective Progress Note Date: 04/05/23 History of present illness: This is a 52-year-old female with known coronary artery disease status post pr ior bypass surgery, hypertension, dyslipidemia. Patient presented to the hospital due to chest discomfort. EKG did not reveal any acute ischemic changes and 3 sets of troponins were negative. Patient is complaining of chest pain and requiring pain medications. She is currently on Imdur 30 mg twice daily and Ranexa 1000 mg twice daily. Also noted the patient had cardiac catheterization last year and advised for medical therapy. Echocardiogram reveals normal LV function, moderate aortic regurgitation. Physical examination: Gen: This is a obese 52-year-old female. She is resting in bed. No acute respiratory distress noted. VS: reviewed HEENT: Head is atraumatic, normocephalic. Pupils equal, round. Sclerae is anicteric. NECK: Supple. No JVD. . LUNGS: Clear to auscultation. No wheezes or rhonchi. No intercostal retractions. HEART: Regular rate and rhythm. No murmur. ABDOMEN: Soft and obese. EXTREMITIES: No pedal edema. NEUROLOGICAL: Patient is awake, alert and oriented x3. Assessment: Precordial chest pain, myocardial infarction ruled out Coronary artery disease status post CABG Elevated WBC unclear significance Plan: Continue current cardiac medications Increase Imdur to 60 mg twice daily Patient is cleared for discharge from cardiology. Nurse practitioner note has been reviewed, I agree with documented findings and plan of care. Patient was seen and examined. Objective - Vital Signs Vital signs: Vital Signs Temp 98.3 F 04/05/23 03:00 Pulse 79 04/05/23 03:00 Resp 20 04/05/23 03:00 BP 149/91 04/05/23 03:00 Pulse Ox 94 L 04/05/23 03:00 FiO2 Intake & Output 04/04/23 04/05/23 04/05/23 18:59 06:59 18:59 Intake Total 591 Balance 591 Intake: Oral 591 Other: Voiding Method Toilet # Voids 1 2 # Bowel Movements 0 - Labs CBC & Chem 7: 04/04/23 08:29 04/04/23 08:29 Labs: Abnormal Lab Results - Last 24 Hours (Table) 04/04/23 04/04/23 04/04/23 Range/Units 08:06 08:29 08:29 WBC 11.50 H (4.50-10.00) X 10*3/uL MCH 26.6 L (27.0-32.0) pg MCHC 30.0 L (32.0-37.0) d/dL RDW 15.5 H (11.5-14.5) % Chloride (98-107) mmol/L Glucose (74-99) mg/dL POC Glucose (mg/dL) 114 H (70-110) mg/dL Hemoglobin A1c 7.4 H (<=6.0) % Alkaline Phosphatase (38-126) U/L Triglycerides (0.00-149.00) mg/dL Cholesterol (0.00-200.00) mg/dL 04/04/23 04/04/23 04/04/23 Range/Units 08:29 11:40 21:04 WBC (4.50-10.00) X 10*3/uL MCH (27.0-32.0) pg MCHC (32.0-37.0) d/dL RDW (11.5-14.5) % Chloride 108 H (98-107) mmol/L Glucose 118 H (74-99) mg/dL POC Glucose (mg/dL) 113 H 120 H (70-110) mg/dL Hemoglobin A1c (<=6.0) % Alkaline Phosphatase 140 H (38-126) U/L Triglycerides 162.00 H (0.00-149.00) mg/dL Cholesterol 204.00 H (0.00-200.00) mg/dL 04/05/23 Range/Units 06:27 WBC (4.50-10.00) X 10*3/uL MCH (27.0-32.0) pg MCHC (32.0-37.0) d/dL RDW (11.5-14.5) % Chloride (98-107) mmol/L Glucose (74-99) mg/dL POC Glucose (mg/dL) 118 H (70-110) mg/dL Hemoglobin A1c (<=6.0) % Alkaline Phosphatase (38-126) U/L Triglycerides (0.00-149.00) mg/dL Cholesterol (0.00-200.00) mg/dL
[2023-04-05] MEDS: ARIPiprazole 5 MG TAB PO SCH (11:55)
[2023-04-05 12:47] LABS: Glucose,Whole Blood 104 mg/dL (70-110)
--- NOTE | 2023-04-05 13:40 | P.DS ---
Providers Date of admission: 04/03/23 13:17 Expected date of discharge: 04/05/23 Attending physician: Isra Rinaldi MD Consults: 04/03/23 14:24 Consult Physician Routine Consulting Provider: Navin Mcfarlane Consult Reason/Comments: Chest pain Do you want consulting provider notified?: Yes Primary care physician: Ike Meza MD Hospital Course: Discharge diagnoses; Chest pain Hypertension Hyperlipidemia History of coronary artery disease Hospital course; patient is a 52-year-old lady with past medical history significant for coronary artery disease status post CABG, hypertension, hyperlipidemia, tobacco use who presented to The ER because of chest pain. Patient stated that she was all right this morning when while sitting in the chair she started experiencing left-sided chest pain, it was severe in intensity, stabbing in nature, radiating to her left shoulder and jaw. It was associated with shortness of breath. Patient took some nitroglycerin that relieved her pain but after a few moments chest pain came back at which time she took another dose of nitro decided to come to the ER. In the ER, initial lab work done in the ER showed WBC 17.9, hemoglobin 14, platelet count 337, sodium 139, potassium 4.5, BUN 15, creatinine 0.94, Initial EKG done did not show any ST segment changes, no T-wave inversion. Patient was admitted to medicine service 04/04. Patient seen and examined. Has any further episodes of chest pain. Vital signs stable 04/05. Cardiology evaluated the patient, increase the dose of Imdur to 60 minute on twice a day. Echo done showed moderate aortic regurg, normal LV function Recommend outpatient follow-up PHYSICAL EXAMINATION: GENERAL: The patient is alert and oriented x3, not in any acute distress. Well developed, well nourished. HEENT: Pupils are round and equally reacting to light. EOMI. No scleral icterus. No conjunctival pallor. Normocephalic, atraumatic. No pharyngeal erythema. No thyromegaly. CARDIOVASCULAR: S1 and S2 present. No murmurs, rubs, or gallops. PULMONARY: Chest is clear to auscultation, no wheezing or crackles. ABDOMEN: Soft, nontender, nondistended, normoactive bowel sounds. No palpable organomegaly. MUSCULOSKELETAL: No joint swelling or deformity. EXTREMITIES: No cyanosis, clubbing, or pedal edema. NEUROLOGICAL: Gross neurological examination did not reveal any focal deficits. SKIN: No rashes. Patient Condition at Discharge: Good Plan - Discharge Summary New Discharge Prescriptions: New Isosorbide Dinitrate [Isordil] 60 mg PO BID #60 tab Continue Atorvastatin [Lipitor] 80 mg PO DAILY ARIPiprazole [Abilify] 5 mg PO DAILY Ranolazine [Ranexa] 1,000 mg PO BID lisinopriL [Zestril] 5 mg PO DAILY metFORMIN HCL 1,000 mg PO BID Spiriva Respimat 1.25mcg/Actua 2 puff INHALATION RT-DAILY Nitroglycerin Sl Tabs [Nitrostat] 0.4 mg SUBLINGUAL Q5M PRN PRN Reason: Chest Pain Dulaglutide [Trulicity] 1.5 mg SQ TU diphenhydrAMINE [Benadryl] 25 mg PO BID Aspirin EC [Ecotrin Low Dose] 81 mg PO DAILY Albuterol Inhaler [Ventolin Hfa Inhaler] 1 - 2 puff INHALATION RT-Q4H PRN PRN Reason: Shortness Of Breath rOPINIRole HCL [Requip] 1 mg PO HS Metoprolol Tartrate [Lopressor] 50 mg PO BID Escitalopram [Lexapro] 20 mg PO DAILY amLODIPine [Norvasc] 10 mg PO DAILY Omeprazole 40 mg PO BID Budesonide/Formoterol Fumarate [Symbicort 160-4.5 Mcg Inhaler] 2 puff INHALAT ION RT-BID Ondansetron [Zofran] 4 mg PO TID PRN PRN Reason: Nausea Pregabalin [Lyrica] 150 mg PO BID Clopidogrel [Plavix] 75 mg PO DAILY Discontinued Isosorbide Dinitrate 30 mg PO BID Discharge Medication List Atorvastatin [Lipitor] 80 mg PO DAILY 07/08/20 [History] ARIPiprazole [Abilify] 5 mg PO DAILY 11/13/21 [History] Ranolazine [Ranexa] 1,000 mg PO BID 11/13/21 [History] lisinopriL [Zestril] 5 mg PO DAILY 12/10/22 [History] Albuterol Inhaler [Ventolin Hfa Inhaler] 1 - 2 puff INHALATION RT-Q4H PRN 03/27/23 [History] Aspirin EC [Ecotrin Low Dose] 81 mg PO DAILY 03/27/23 [History] Budesonide/Formoterol Fumarate [Symbicort 160-4.5 Mcg Inhaler] 2 puff INHALATION RT-BID 03/27/23 [History] Clopidogrel [Plavix] 75 mg PO DAILY 03/27/23 [History] Dulaglutide [Trulicity] 1.5 mg SQ TU 03/27/23 [History] Escitalopram [Lexapro] 20 mg PO DAILY 03/27/23 [History] Metoprolol Tartrate [Lopressor] 50 mg PO BID 03/27/23 [History] Nitroglycerin Sl Tabs [Nitrostat] 0.4 mg SUBLINGUAL Q5M PRN 03/27/23 [History] Omeprazole 40 mg PO BID 03/27/23 [History] Ondansetron [Zofran] 4 mg PO TID PRN 03/27/23 [History] Pregabalin [Lyrica] 150 mg PO BID 03/27/23 [History] Spiriva Respimat 1.25mcg/Actua 2 puff INHALATION RT-DAILY 03/27/23 [History] amLODIPine [Norvasc] 10 mg PO DAILY 03/27/23 [History] diphenhydrAMINE [Benadryl] 25 mg PO BID 03/27/23 [History] metFORMIN HCL 1,000 mg PO BID 03/27/23 [History] rOPINIRole HCL [Requip] 1 mg PO HS 03/27/23 [History] Isosorbide Dinitrate [Isordil] 60 mg PO BID #60 tab 04/05/23 [Rx] Follow up Appointment(s)/Referral(s): Ike Meza MD [Primary Care Provider] - 1-2 days Discharge Disposition: HOME SELF-CARE
== END 2023-04-05 16:03 | disposition home or self-care (01) ==
LOC: EC 10:52 → 6NMEDSUR 13:17
PROVIDERS: ADMIT Internal Medicine; ATTEND Internal Medicine
DX: R07.9 Chest pain, unspecified (principal); I10 Essential (primary) hypertension; E78.5 Hyperlipidemia, unspecified; I25.10 Atherosclerotic heart disease of native coronary artery without angina pectoris; M19.90 Unspecified osteoarthritis, unspecified site; F41.9 Anxiety disorder, unspecified; F31.9 Bipolar disorder, unspecified; Z95.1 Presence of aortocoronary bypass graft; F17.200 Nicotine dependence, unspecified, uncomplicated; Z95.5 Presence of coronary angioplasty implant and graft; J44.9 Chronic obstructive pulmonary disease, unspecified; I25.2 Old myocardial infarction; Z80.41 Family history of malignant neoplasm of ovary; Z82.49 Family history of ischemic heart disease and other diseases of the circulatory system; Z79.85 Long-term (current) use of injectable non-insulin antidiabetic drugs; Z79.84 Long term (current) use of oral hypoglycemic drugs; Z79.82 Long term (current) use of aspirin; Z79.51 Long term (current) use of inhaled steroids; Z79.899 Other long term (current) drug therapy; Z79.02 Long term (current) use of antithrombotics/antiplatelets
CPT/HCPCS: 96376 ×4; 96361 ×4; 96374; 96375; 99285; 36415; 94640 ×4; 94760; 93005; 85379; 80061; 80053 ×2; 84443; 83735; 84484; 85025; 85027; 85610; 85730; 83036; 71046; G0378 ×3; C8929; J2270; J2405; J1170 ×3; 93306

== ENCOUNTER 2023-06-22 18:51 | Observation (INO) | payer OTHER ==
[2023-06-22 19:13] VITALS: TEMP 98.6
[2023-06-22] MEDS ORDERED: NITROGLYCERIN OINT 1 INCH/GM PACKET TOPICAL STA (19:19)
--- NOTE | 2023-06-22 19:20 | ED ---
General Adult HPI - General Chief complaint: Chest Pain Stated complaint: Chest Pain Time Seen by Provider: 06/22/23 18:55 Source: patient, EMS Mode of arrival: EMS - History of Present Illness Initial comments: Dictation was produced using [employer] dictation software. please excuse any grammatical, word or spelling errors. Chief Complaint: 52-year-old female with past medical history of myocardia infarction presents to the ER for chest pain History of Present Illness: 52-year-old female presents emergency department for chest pain. She has history of myocardia infarction and alleged coronary artery stents. She does not remember when was the last time she had a stent placed. States that for the last several hours she's had left-sided sharp chest pain that radiates to the left neck. Associated with nausea. No diaphoresis. Chart review was performed. She has history of coronary artery disease and patent vein graft to the LAD. She rates her pain as a 9 out of 10. The ROS documented in this emergency department record has been reviewed and confirmed by me. Those systems with pertinent positive or negative responses have been documented in the HPI. All other systems are other negative and/or noncontributory. - Related Data Home Medications Medication Instructions Recorded Confirmed Atorvastatin [Lipitor] 80 mg PO DAILY 07/08/20 06/22/23 ARIPiprazole [Abilify] 5 mg PO DAILY 11/13/21 06/22/23 Ranolazine [Ranexa] 1,000 mg PO BID 11/13/21 06/22/23 lisinopriL [Zestril] 5 mg PO DAILY 12/10/22 06/22/23 Albuterol Inhaler [Ventolin Hfa 2 puff INHALATION RT-TID 03/27/23 06/22/23 Inhaler] Aspirin EC [Ecotrin Low Dose] 81 mg PO DAILY 03/27/23 06/22/23 Budesonide/Formoterol Fumarate 2 puff INHALATION RT-BID 03/27/23 06/22/23 [Symbicort 160-4.5 Mcg Inhaler] Clopidogrel [Plavix] 75 mg PO DAILY 03/27/23 06/22/23 Dulaglutide [Trulicity] 1.5 mg SQ TU 03/27/23 06/22/23 Escitalopram [Lexapro] 20 mg PO DAILY 03/27/23 06/22/23 Metoprolol Tartrate [Lopressor] 50 mg PO BID 03/27/23 06/22/23 Nitroglycerin Sl Tabs [Nitrostat] 0.4 mg SL Q5M PRN 03/27/23 06/22/23 Omeprazole 40 mg PO BID 03/27/23 06/22/23 Ondansetron [Zofran] 4 mg PO TID PRN 03/27/23 06/22/23 Pregabalin [Lyrica] 150 mg PO BID 03/27/23 06/22/23 amLODIPine [Norvasc] 10 mg PO DAILY 03/27/23 06/22/23 diphenhydrAMINE [Benadryl] 25 mg PO BID 03/27/23 06/22/23 metFORMIN HCL 1,000 mg PO BID 03/27/23 06/22/23 rOPINIRole HCL [Requip] 1 mg PO HS 03/27/23 06/22/23 ALPRAZolam [Xanax] 0.5 mg PO TID PRN 06/22/23 06/22/23 HYDROcodone/APAP 10-325MG [[place] 1 tab PO TID PRN 06/22/23 06/22/23 10-325] Isosorbide(Unknown Dose) 1 tab PO DIRECTED 06/22/23 06/22/23 Tiotropium 2.5 Mcg/Puff [Spiriva 1 puff INHALATION RT-BID 06/22/23 06/22/23 Respimat 2.5 Mcg] Allergies Allergy/AdvReac Type Severity Reaction Status Date / Time No Known Allergies Allergy Verified 04/03/23 12:29 Review of Systems ROS Statement: Those systems with pertinent positive or pertinent negative responses have been documented in the HPI. ROS Other: All systems not noted in ROS Statement are negative. Past Medical History Past Medical History: Asthma, Coronary Artery Disease (CAD), COPD, Diabetes Mellitus, GERD/Reflux, Myocardial Infarction (VT), Osteoarthritis (OA) Additional Past Medical History / Comment(s): DDD Last Myocardial Infarction Date:: 2011 History of Any Multi-Drug Resistant Organisms: None Reported Past Surgical History: Coronary Bypass/CABG, Heart Catheterization With Stent Additional Past Surgical History / Comment(s): seven stents Past Anesthesia/Blood Transfusion Reactions: No Reported Reaction Date of Last Stent Placement:: 11/2018 Past Psychological History: Anxiety, Bipolar Smoking Status: Current every day smoker Past Alcohol Use History: None Reported, Occasional Past Drug Use History: Marijuana - Past Family History Mother Family Medical History: Cancer Additional Family Medical History / Comment(s): Ovarian cancer Father Family Medical History: Congestive Heart Failure (CHF) Fmily Family Medical History: No Reported History General Exam - General Exam Comments Initial Comments: PHYSICAL EXAM: General Impression: Alert and oriented x3, not in acute distress HEENT: Normocephalic atraumatic, extra-ocular movements intact, pupils equal and reactive to light bilaterally, mucous membranes moist. Cardiovascular: Heart regular rate and rhythm Chest: Able to complete full sentences, no retractions, no tachypnea Abdomen: abdomen soft, non-tender, non-distended, no organomegaly Musculoskeletal: Pulses present and equal in all extremities, no peripheral edema Motor: no focal deficits noted Neurological: CN II-XII grossly intact, no focal motor or sensory deficits noted Skin: Intact with no visualized rashes Psych: Normal affect and mood Course Vital Signs 06/22/23 18:58 Temperature 98.6 F Pulse Rate 70 Respiratory 18 Rate Blood Pressure 151/111 O2 Sat by Pulse 98 Oximetry - Reevaluation(s) Reevaluation #1: 06/22/23 21:05 Patient reevaluated at bedside and 9:05pm. she is well-appearing and showing stable vital signs. Patient requesting Percocet. EKG Findings - EKG Comments: EKG Findings:: My EKG interpretation: Ventricular rate 69, sinus rhythm, ME interval 135, QRS 84, QTC 420. No ME prolongation, no QTC prolongation, no ST or T-wave changes noted. . Overall, this EKG is unremarkable Medical Decision Making - Medical Decision Making Was pt. sent in by a medical professional or institution (, PA, BUSINESS CONTINUITY CONSULTANT, urgent care, hospital, or usp...) When possible be specific @ -No Did you speak to anyone other than the patient for history (EMS, parent, family, police, friend...)? What history was obtained from this source @ -EMS provide some history states that patient's here for chest pain Did you review nursing and triage notes (agree or disagree)? Why? @ -I reviewed and agree with nursing and triage notes Were old charts reviewed (outside hosp., previous admission, EMS record, old EKG, old radiological studies, urgent care reports/EKG's, usp records)? Report findings @ -No old charts were reviewed Differential Diagnosis (chest pain, altered mental status, abdominal pain women, abdominal pain men, vaginal bleeding, musculoskeletal, weakness, fever, dyspnea, syncope, headache, dizziness, GI bleed, back pain, seizure, CVA, palpatations, mental health)? @ -Differential Chest Pain: Stable Angina, Unstable Angina, STEMI, NSTEMI Aortic Dissection, Pneumothorax, Musculoskeletal, Esophageal Spasm GERD, Cholecystitis, Pancreatitis, Zoster, this is not meant to be an all-inclusive list. EKG interpreted by me (3pts min.). @ -None done X-rays interpreted by me (1pt min.). @ -Right medial base infiltrate seen on chest x-ray CT interpreted by me (1pt min.). @ -None done U/S interpreted by me (1pt. min.). @ -None done What testing was considered but not performed or refused? (CT, X-rays, U/S, labs)? Why? @ -None What meds were considered but not given or refused? Why? @ -None Did you discuss the management of the patient with other professionals (professionals i.e. , PA, BUSINESS CONTINUITY CONSULTANT, lab, RT, psych nurse, social service worker, video coordinator, teacher, certification officer, outsole caser)? Give summary @ -No Was smoking cessation discussed for >3mins.? @ -No Was critical care preformed (if so, how long)? @ -No Were there social determinants of health that impacted care today? How? (Homele ssness, low income, unemployed, alcoholism, drug addiction, transportation, low edu. Level, literacy, decrease access to med. care, usp, rehab)? @ -No Was there de-escalation of care discussed even if they declined (Discuss DNR or withdrawal of care, Hospice)? DNR status @ -No What co-morbidities impacted this encounter? (DM, HTN, Smoking, COPD, CAD, Cancer, CVA, ARF, Chemo, Hep., AIDS, mental health diagnosis, sleep apnea, morbid obesity)? @ -None Was patient admitted / discharged? Hospital course, mention meds given and route, prescriptions, significant lab abnormalities, going to OR and other pertinent info. @ -52-year-old female past medical history coronary artery disease presents to the ER for chest pain or symptoms are atypical typical features. Patient well- appearing at bedside. Vital signs are stable. EKG is unremarkable. Patient received aspirin by prehospital providers. She also reported some improvement of her symptoms with sublingual nitroglycerin. Patient given topical nitro. Patient stable. Troponin is negative. Will be admitted for cardiac monitoring, cardiac consultation. Undiagnosed new problem with uncertain prognosis? @ -No Drug Therapy requiring intensive monitoring for toxicity (Heparin, Nitro, Insulin, Cardizem)? @ -No Were any procedures done? @ -No Diagnosis/symptom? Acute, or Chronic, or Acute on Chronic? Uncomplicated (without systemic symptoms) or Complicated (systemic symptoms)? @ -Chest pain Side effects of treatment? @ -No Exacerbation, Progression, or Severe Exacerbation? @ -No Poses a threat to life or bodily function? How? (Chest pain, USA, VT, pneumonia, PE, COPD, DKA, ARF, appy, cholecystitis, CVA, Diverticulitis, Homicidal, Suicidal, threat to staff... and all critical care pts) @ -yes - Lab Data Result diagrams: 06/22/23 19:46 06/22/23 19:46 Lab Results 06/22/23 06/22/23 06/22/23 Range/Units 19:46 19:46 19:46 WBC 12.6 H (3.8-10.6) k/uL RBC 4.68 (3.80-5.40) m/uL Hgb 13.1 (11.4-16.0) gm/dL Hct 40.1 (34.0-46.0) % MCV 85.7 (80.0-100.0) fL MCH 28.0 (25.0-35.0) pg MCHC 32.7 (31.0-37.0) g/dL RDW 16.3 H (11.5-15.5) % Plt Count 273 (150-450) k/uL MPV 8.5 Neutrophils % 60 % Lymphocytes % 30 % Monocytes % 5 % Eosinophils % 3 % Basophils % 0 % Neutrophils # 7.6 (1.3-7.7) k/uL Lymphocytes # 3.8 (1.0-4.8) k/uL Monocytes # 0.6 (0-1.0) k/uL Eosinophils # 0.4 (0-0.7) k/uL Basophils # 0.1 (0-0.2) k/uL Anisocytosis Slight PT 9.6 (9.0-12.0) sec INR 0.9 (<1.2) APTT 23.7 (22.0-30.0) sec Sodium 139 (137-145) mmol/L Potassium 3.8 (3.5-5.1) mmol/L Chloride 110 H (98-107) mmol/L Carbon Dioxide 20 L (22-30) mmol/L Anion Gap 9 mmol/L BUN 13 (7-17) mg/dL Creatinine 0.77 (0.52-1.04) mg/dL Est GFR (CKD-EPI)AfAm >90 (>60 ml/min/1.73 sqM) Est GFR (CKD-EPI)NonAf 88 (>60 ml/min/1.73 sqM) Glucose 122 H (74-99) mg/dL Calcium 9.6 (8.4-10.2) mg/dL Magnesium 1.7 (1.6-2.3) mg/dL Total Bilirubin 0.6 (0.2-1.3) mg/dL AST 30 (14-36) U/L ALT 27 (4-34) U/L Alkaline Phosphatase 144 H (38-126) U/L Troponin I (0.000-0.034) ng/mL Total Protein 7.5 (6.3-8.2) g/dL Albumin 4.4 (3.5-5.0) g/dL 06/22/23 Range/Units 19:46 WBC (3.8-10.6) k/uL RBC (3.80-5.40) m/uL Hgb (11.4-16.0) gm/dL Hct (34.0-46.0) % MCV (80.0-100.0) fL MCH (25.0-35.0) pg MCHC (31.0-37.0) g/dL RDW (11.5-15.5) % Plt Count (150-450) k/uL MPV Neutrophils % % Lymphocytes % % Monocytes % % Eosinophils % % Basophils % % Neutrophils # (1.3-7.7) k/uL Lymphocytes # (1.0-4.8) k/uL Monocytes # (0-1.0) k/uL Eosinophils # (0-0.7) k/uL Basophils # (0-0.2) k/uL Anisocytosis PT (9.0-12.0) sec INR (<1.2) APTT (22.0-30.0) sec Sodium (137-145) mmol/L Potassium (3.5-5.1) mmol/L Chloride (98-107) mmol/L Carbon Dioxide (22-30) mmol/L Anion Gap mmol/L BUN (7-17) mg/dL Creatinine (0.52-1.04) mg/dL Est GFR (CKD-EPI)AfAm (>60 ml/min/1.73 sqM) Est GFR (CKD-EPI)NonAf (>60 ml/min/1.73 sqM) Glucose (74-99) mg/dL Calcium (8.4-10.2) mg/dL Magnesium (1.6-2.3) mg/dL Total Bilirubin (0.2-1.3) mg/dL AST (14-36) U/L ALT (4-34) U/L Alkaline Phosphatase (38-126) U/L Troponin I <0.012 (0.000-0.034) ng/mL Total Protein (6.3-8.2) g/dL Albumin (3.5-5.0) g/dL Disposition Clinical Impression: Chest pain Disposition: ADMITTED IP TO THIS [facility] Condition: Fair Referrals: Arian Chaparro MD [Primary Care Provider] - 1-2 days Decision Time: 21:20
--- NOTE | 2023-06-22 20:07 | XR ---
EXAMINATION TYPE: XR chest 2V DATE OF EXAM: 06/22/2023 COMPARISON: 04/03/2023 HISTORY: 52-year-old female with chest pain TECHNIQUE: PA and lateral views FINDINGS: Heart normal size. Cardiac stents are present. Aorta and pulmonary vasculature within normal limits. Median sternotomy wires are present. There is some focal opacity adjacent to the right heart border b ut without clear correlate on the lateral view. IMPRESSION: Correlate for any infectious respiratory signs/symptoms to exclude the possibility of an early pneumo miladys at the medial right base.
[2023-06-22] MEDS ORDERED: oxyCODONE-APAP 10-325MG 1 EACH TAB PO STA (20:50)
[2023-06-22 20:55] LABS: Anisocytosis Slight; Basophils # (A) 0.1 k/uL (0-0.2); Basophils % (A) 0 %; Eosinophils # (A) 0.4 k/uL (0-0.7); Eosinophils % (A) 3 %; HCT 40.1 % (34.0-46.0); HGB 13.1 gm/dL (11.4-16.0); Lymphocytes # (A) 3.8 k/uL (1.0-4.8); Lymphocytes % (A) 30 %; MCHC 32.7 g/dL (31.0-37.0); MCV 85.7 fL (80.0-100.0); Mean Platelet Volume 8.5; Monocytes # (A) 0.6 k/uL (0-1.0); Monocytes % (A) 5 %; Neutrophils # (A) 7.6 k/uL (1.3-7.7); Neutrophils % (A) 60 %; Platelet Count 273 k/uL (150-450); RBC 4.68 m/uL (3.80-5.40); RDW 16.3 % (11.5-15.5); WBC 12.6 k/uL (3.8-10.6)
[2023-06-22 21:00] LABS: INR 0.9 (<1.2); Partial Thromboplastin Time 23.7 sec (22.0-30.0); Prothrombin Time 9.6 sec (9.0-12.0)
[2023-06-22 21:04] LABS: ALT 27 U/L (4-34); AST 30 U/L (14-36); African American GFR (CKD) >90 (>60 ml/min/1.73 sqM); Albumin 4.4 g/dL (3.5-5.0); Alkaline Phosphatase 144 U/L (38-126); Anion Gap 9 mmol/L; Blood Urea Nitrogen 13 mg/dL (7-17); Calcium 9.6 mg/dL (8.4-10.2); Carbon Dioxide 20 mmol/L (22-30); Chloride 110 mmol/L (98-107); Glucose 122 mg/dL (74-99); Magnesium 1.7 mg/dL (1.6-2.3); Non-African American GFR(CKD) 88 (>60 ml/min/1.73 sqM); Potassium 3.8 mmol/L (3.5-5.1); Sodium 139 mmol/L (137-145); Total Bilirubin 0.6 mg/dL (0.2-1.3); Total Protein 7.5 g/dL (6.3-8.2)
[2023-06-22] MEDS ORDERED: ALPRAZolam 0.5 MG TAB PO PRN (22:08)
[2023-06-22] MEDS ORDERED: HYDROcodone/APAP 10-325MG 1 EACH TAB PO PRN (22:08)
[2023-06-22] MEDS ORDERED: ONDANSETRON 4 MG TAB PO PRN (22:08)
[2023-06-22] MEDS ORDERED: DEXTROSE 50% SYRINGE 50 ML IVP PRN ×2 (22:10)
[2023-06-22] MEDS: RANOLAZINE 500 MG TAB.ER.12H PO SCH (22:47)
[2023-06-22] MEDS: METOPROLOL TARTRATE 50 MG TAB PO SCH (22:47)
[2023-06-22] MEDS: PANTOPRAZOLE 40 MG TABLET PO SCH (22:48)
[2023-06-22] MEDS: PREGABALIN 75 MG CAP PO SCH (22:48)
[2023-06-22] MEDS: IPRATROPIUM 0.5 MG/2.5 ML NEBU INHALATION SCH (23:26)
[2023-06-23] MEDS: NITROGLYCERIN SL TABS 0.4 MG TAB SUBLINGUAL PRN ×2 (04:31→04:37)
[2023-06-23 07:21] LABS: Glucose,Whole Blood 119 mg/dL (70-110)
[2023-06-23] MEDS ORDERED: INSULIN ASPART (NovoLOG) 100 UNIT/ML VIAL SQ SCH (07:30)
[2023-06-23] MEDS: IPRATROPIUM 0.5 MG/2.5 ML NEBU INHALATION SCH (07:57)
--- NOTE | 2023-06-23 07:58 | CT ---
EXAMINATION TYPE: CT chest angio for PE DATE OF EXAM: 06/23/2023 COMPARISON: 12/17/2022 HISTORY: 52-year-old female with chest pain, shortness of breath TECHNIQUE: Contiguous axial scanning of the chest performed with IV Contrast, patient injected with 1 00 mL of Isovue 370. Coronal/sagittal MIP reconstructions performed. CT DLP: 470.7 mGycm Automated exposure control for dose reduction was used. FINDINGS: The heart is normal size without pericardial effusion. Median sternotomy wires and post-CABG changes. Mild atherosclerotic calcifications aortic arch with conventional arch vessel branching anatomy. Satisfactory opacification of the pulmonary arterial system. No evidence for pulmonary embolus. Enlarged right hilar lymph nodes measuring up to 2.2 cm remains unchanged back to at least 11/15/2021. Smaller left hilar lymph nodes also remain unchanged findings suggest a chronic reactive/post inflam matory etiology. Also, unchanged lower left paratracheal nodes measuring up to 9 mm. There is moderate emphysematous change. Some strandy scarring scattered throughout. Diffuse bronchial wall thickening. A few scattered 4 mm smaller pulmonary nodules remain unchanged. Additional mild strandy atelectasis in the lower lungs. Visualized upper abdomen shows no gross abnormality. Bones: No osseous destructive process. IMPRESSION: 1. COPD WITH MODERATE EMPHYSEMA. DIFFUSE BRONCHIAL WALL THICKENING COULD REPRESENT A PROMINENT COMPON ENT OF CHRONIC BRONCHITIS VERSUS SUPERIMPOSED ACUTE BRONCHITIS. CLINICALLY CORRELATE. 2. NO EVIDENCE FOR PULMONARY EMBOLUS. 3. SCATTERED HILAR NODES MEASURING UP TO 2.2 CM REMAIN UNCHANGED BACK TO AT LEAST 11/15/2021 SUGGESTIN G A CHRONIC REACTIVE/POST INFLAMMATORY ETIOLOGY. MEDIASTINAL LYMPH NODES ARE ALSO SIMILAR.
[2023-06-23] MEDS ORDERED: ALBUTEROL NEBULIZED 2.5 MG/3 ML INHALATION SCH (08:00)
[2023-06-23] MEDS ORDERED: SYMBICORT 160-4.5 MCG INHALER INHALATION SCH (08:00)
[2023-06-23] MEDS: PREGABALIN 75 MG CAP PO SCH (08:54)
[2023-06-23] MEDS: PANTOPRAZOLE 40 MG TABLET PO SCH (08:55)
[2023-06-23] MEDS: RANOLAZINE 500 MG TAB.ER.12H PO SCH (08:55)
[2023-06-23] MEDS: METOPROLOL TARTRATE 50 MG TAB PO SCH (08:55)
[2023-06-23] MEDS ORDERED: diphenhydrAMINE 25 MG CAP PO SCH (09:00)
[2023-06-23] MEDS ORDERED: CLOPIDOGREL 75 MG TAB PO SCH (09:00)
[2023-06-23] MEDS ORDERED: lisinopriL 5 MG TAB PO SCH (09:00)
[2023-06-23] MEDS ORDERED: ATORVASTATIN 80 MG TAB PO SCH (09:00)
[2023-06-23] MEDS ORDERED: ASPIRIN 325 MG TAB PO SCH (09:00)
[2023-06-23] MEDS ORDERED: ARIPiprazole 5 MG TAB PO SCH (09:00)
[2023-06-23] MEDS ORDERED: ISOSORBIDE MONONITRATE ER 60 MG TAB.ER.24H PO SCH (09:00)
[2023-06-23] MEDS ORDERED: ESCITALOPRAM 20 MG TAB PO SCH (09:00)
[2023-06-23] MEDS ORDERED: ASPIRIN 81 MG PO SCH (09:00)
[2023-06-23] MEDS ORDERED: metFORMIN 500 MG TAB PO SCH (09:00)
[2023-06-23] MEDS ORDERED: lisinopriL 10 MG TAB PO SCH (09:00)
[2023-06-23] MEDS ORDERED: ISOSORBIDE MONONITRATE ER 30 MG TAB.ER.24H PO SCH (09:00)
[2023-06-23] MEDS ORDERED: amLODIPine 10 MG TAB PO SCH (09:00)
[2023-06-23 09:49] LABS: Chol/HDL Ratio 5.72 Ratio; LDL Cholesterol,Calculated 175.1 mg/dL (0.0-131.0)
--- NOTE | 2023-06-23 10:10 | P.CRDCN ---
History of Present Illness History of present illness: HISTORY OF PRESENT ILLNESS: This is a 52-year-old female with a past medical history significant for hypertension, hyperlipidemia, and coronary artery disease with previous 2 vessel CABG in 2008 at [facility] in [place]. Patient does not follow with a bander and cellophaner machine. We have been asked to see the patient in consultation for chest pain. Patient examined at the bedside. Patient states she began having chest pain yesterday in the middle of her chest with radiation into her arm and neck. She denied any shortness of breath. Denied any dizziness or lightheadedness. Vital signs are stable. * EKG reveals sinus mechanism with nonspecific ST-T wave changes. No signs of acute ischemia * Chest xray COPD with moderate emphysema. No evidence for pulmonary embolism. * Laboratory data: W BC 12.6. Hemoglobin 13.1. Platelet count 273. Sodium 139. Potassium 3.8. BUN 13. Creatinine 0.77. Troponin negative 3 * Current home cardiac medications include aspirin 81 mg daily, Lipitor 80 mg daily, Plavix 75 mg daily, metoprolol tartrate 50 mg twice a day, Ranexa 1000 mg twice a day, amlodipine 10 mg daily, lisinopril 5 mg daily, and Imdur (dosage unknown) * Most recent echocardiogram obtained in March 2023 revealed normal LV function with moderate aortic regurgitation * patient underwent Lexiscan stress test in November 2022 revealing possible old infarct. No convincing evidence for reversible ischemia. * Cardiac catheterization history: October 2021 revealing stable coronary artery disease with patent vein graft to the LAD. Totally occluded graft to the circumflex but stent in the proximal circumflex is patent. Right coronary artery with mild disease. Medical management was recommended. REVIEW OF SYSTEMS: At the time of my exam: CONSTITUTIONAL: Denies fever or chills. HEENT: Denies blurred vision, vision changes, or eye pain. Denies hemoptysis CARDIOVASCULAR: Denies chest pain. Denies orthopnea. Denies PND. Denies palpitations RESPIRATORY: Denies shortness of breath. GASTROINTESTINAL: Denies abdominal pain. Denies nausea or vomiting. HEMATOLOGIC: Denies bleeding disorders. GENITOURINARY: Denies any blood in urine. SKIN: Denies pruitis. Denies rash. PHYSICAL EXAM: VITAL SIGNS: Reviewed. GENERAL: Well-developed in no acute distress. HEENT: Head is normocephalic. Pupils are equal, round. Sclerae anicteric. Mucous membranes of the mouth are moist. Neck supple. No JVD or thyromegaly LUNGS: Respirations even and unlabored. Lungs essentially clear to auscultation bilaterally. HEART: Regular rate and rhythm. S1 and S2 heard. ABDOMEN: Soft. Nondistended. Nontender. EXTREMITIES: Normal range of motion. No clubbing or cyanosis. Peripheral pulses intact. No lower extremity edema NEUROLOGIC: Awake and alert. Oriented x 3. ASSESSMENT: Chest pain, troponins negative 3 Coronary artery disease with previous 2 vessel CABG, 2008, at [facility] in [place] Hypertension Hyperlipidemia Moderate aortic regurgitation PLAN: An acute coronary event has been ruled out No need to obtain echo Resume home cardiac medications Add Imdur 60mg daily Increase lisinopril to 10mg daily patient may be discharged home today from a cardiac standpoint and follow up on an outpatient basis Nurse practitioner note has been reviewed by physician. Signing provider agrees with the documented findings, assessment, and plan of care. Past Medical History Past Medical History: Asthma, Coronary Artery Disease (CAD), COPD, Diabetes Mellitus, GERD/Reflux, Myocardial Infarction ([place]), Osteoarthritis (OA) Additional Past Medical History / Comment(s): DDD, scoliosis Last Myocardial Infarction Date:: 2011 History of Any Multi-Drug Resistant Organisms: None Reported Past Surgical History: Coronary Bypass/CABG, Heart Catheterization With Stent Additional Past Surgical History / Comment(s): seven stents Past Anesthesia/Blood Transfusion Reactions: No Reported Reaction Date of Last Stent Placement:: 11/2018 Past Psychological History: Anxiety, Bipolar Smoking Status: Current every day smoker Past Alcohol Use History: None Reported Additional Past Alcohol Use History / Comment(s): 1 ppd Past Drug Use History: Marijuana - Past Family History Mother Family Medical History: Cancer Additional Family Medical History / Comment(s): Ovarian cancer Father Family Medical History: Congestive Heart Failure (CHF) Fmily Family Medical History: No Reported History Medications and Allergies Home Medications Medication Instructions Recorded Confirmed Type Atorvastatin [Lipitor] 80 mg PO DAILY 07/08/20 06/22/23 History ARIPiprazole [Abilify] 5 mg PO DAILY 11/13/21 06/22/23 History Ranolazine [Ranexa] 1,000 mg PO BID 11/13/21 06/22/23 History lisinopriL [Zestril] 5 mg PO DAILY 12/10/22 06/22/23 History Albuterol Inhaler [Ventolin Hfa 2 puff INHALATION RT-TID 03/27/23 06/22/23 History Inhaler] Aspirin EC [Ecotrin Low Dose] 81 mg PO DAILY 03/27/23 06/22/23 History Budesonide/Formoterol Fumarate 2 puff INHALATION RT-BID 03/27/23 06/22/23 History [Symbicort 160-4.5 Mcg Inhaler] Clopidogrel [Plavix] 75 mg PO DAILY 03/27/23 06/22/23 History Dulaglutide [Trulicity] 1.5 mg SQ TU 03/27/23 06/22/23 History Escitalopram [Lexapro] 20 mg PO DAILY 03/27/23 06/22/23 History Metoprolol Tartrate [Lopressor] 50 mg PO BID 03/27/23 06/22/23 History Nitroglycerin Sl Tabs [Nitrostat] 0.4 mg SL Q5M PRN 03/27/23 06/22/23 History Omeprazole 40 mg PO BID 03/27/23 06/22/23 History Ondansetron [Zofran] 4 mg PO TID PRN 03/27/23 06/22/23 History Pregabalin [Lyrica] 150 mg PO BID 03/27/23 06/22/23 History amLODIPine [Norvasc] 10 mg PO DAILY 03/27/23 06/22/23 History diphenhydrAMINE [Benadryl] 25 mg PO BID 03/27/23 06/22/23 History metFORMIN HCL 1,000 mg PO BID 03/27/23 06/22/23 History rOPINIRole HCL [Requip] 1 mg PO HS 03/27/23 06/22/23 History ALPRAZolam [Xanax] 0.5 mg PO TID PRN 06/22/23 06/22/23 History HYDROcodone/APAP 10-325MG [[place] 1 tab PO TID PRN 06/22/23 06/22/23 History 10-325] Tiotropium 2.5 Mcg/Puff [Spiriva 1 puff INHALATION RT-BID 06/22/23 06/22/23 History Respimat 2.5 Mcg] Isosorbide Dinitrate-Unk Dose 1 tab PO DIRECTED 06/23/23 06/23/23 History Allergies Allergy/AdvReac Type Severity Reaction Status Date / Time No Known Allergies Allergy Verified 04/03/23 12:29 Physical Exam Vitals: Vital Signs Temp Pulse Resp BP Pulse Ox 06/23/23 06:00 57 L 20 128/85 98 06/23/23 04:25 58 L 22 146/91 93 L 06/22/23 22:50 92 20 167/102 95 06/22/23 18:58 98.6 F 70 18 151/111 98 Intake and Output 06/22/23 06/23/23 06/23/23 22:59 06:59 14:59 Other: Weight 90.718 kg 90.718 kg Results 06/22/23 19:46 06/22/23 19:46 Cardiac Enzymes 06/22/23 06/22/23 06/22/23 Range/Units 19:46 19:46 21:36 AST 30 (14-36) U/L Troponin I <0.012 <0.012 (0.000-0.034) ng/mL 06/22/23 Range/Units 23:57 AST (14-36) U/L Troponin I <0.012 (0.000-0.034) ng/mL Coagulation 06/22/23 Range/Units 19:46 PT 9.6 (9.0-12.0) sec APTT 23.7 (22.0-30.0) sec CBC 06/22/23 Range/Units 19:46 WBC 12.6 H (3.8-10.6) k/uL RBC 4.68 (3.80-5.40) m/uL Hgb 13.1 (11.4-16.0) gm/dL Hct 40.1 (34.0-46.0) % Plt Count 273 (150-450) k/uL Comprehensive Metabolic Panel 06/22/23 Range/Units 19:46 Sodium 139 (137-145) mmol/L Potassium 3.8 (3.5-5.1) mmol/L Chloride 110 H (98-107) mmol/L Carbon Dioxide 20 L (22-30) mmol/L BUN 13 (7-17) mg/dL Creatinine 0.77 (0.52-1.04) mg/dL Glucose 122 H (74-99) mg/dL Calcium 9.6 (8.4-10.2) mg/dL AST 30 (14-36) U/L ALT 27 (4-34) U/L Alkaline Phosphatase 144 H (38-126) U/L Total Protein 7.5 (6.3-8.2) g/dL Albumin 4.4 (3.5-5.0) g/dL Current Medications Generic Name Dose Route Start Last Admin Trade Name Freq PRN Reason Stop Dose Admin Hydrocodone Bitart/Acetaminophen 1 each 06/22/23 22:08 06/23/23 06:22 Hydrocodone/Apap 10-325mg 1 Each Tab PO 1 each TID PRN Administration Pain Albuterol Sulfate 2.5 mg 06/23/23 08:00 Albuterol Nebulized 2.5 Mg/3 Ml INHALATION RT-TID [facility] Alprazolam 0.5 mg 06/22/23 22:08 Alprazolam 0.5 Mg Tab PO TID PRN Anxiety Amlodipine Besylate 10 mg 06/23/23 09:00 Amlodipine 10 Mg Tab PO DAILY [facility] Aripiprazole 5 mg 06/23/23 09:00 Aripiprazole 5 Mg Tab PO DAILY [facility] Aspirin 81 mg 06/23/23 09:00 Aspirin 81 Mg PO DAILY [facility] Atorvastatin Calcium 80 mg 06/23/23 09:00 Atorvastatin 80 Mg Tab PO DAILY [facility] Budesonide/Formoterol Fumarate 2 puff 06/23/23 08:00 Symbicort 160-4.5 Mcg Inhaler INHALATION RT-BID [facility] Clopidogrel Bisulfate 75 mg 06/23/23 09:00 Clopidogrel 75 Mg Tab PO DAILY [facility] Dextrose/Water 25 ml 06/22/23 22:10 Dextrose 50% Syringe 50 Ml IVP PER PROTOCOL PRN Hypoglycemia Protocol Dextrose/Water 50 ml 06/22/23 22:10 Dextrose 50% Syringe 50 Ml IVP PER PROTOCOL PRN Hypoglycemia Protocol Diphenhydramine HCl 25 mg 06/23/23 09:00 Diphenhydramine 25 Mg Cap PO BID [facility] Escitalopram Oxalate 20 mg 06/23/23 09:00 Escitalopram 20 Mg Tab PO DAILY [facility] Insulin Aspart 0 unit 06/23/23 07:30 06/23/23 07:22 Insulin Aspart (Novolog) 100 Unit/Ml Vial SQ Not Given AC-TID [facility] Protocol Ipratropium [place] 0.5 mg 06/22/23 22:08 06/22/23 23:26 Ipratropium 0.5 Mg/2.5 Ml Nebu INHALATION Not Given RT-QID [facility] Lisinopril 5 mg 06/23/23 09:00 Lisinopril 5 Mg Tab PO DAILY [facility] Metformin HCl 1,000 mg 06/23/23 09:00 Metformin 500 Mg Tab PO BID [facility] Metoprolol Tartrate 50 mg 06/22/23 22:15 06/22/23 22:47 Metoprolol Tartrate 50 Mg Tab PO 50 mg BID AMANDA Administration Nitroglycerin 0.4 mg 06/22/23 20:47 06/23/23 04:37 Nitroglycerin Sl Tabs 0.4 Mg Tab SUBLINGUAL 0.4 mg Q5M PRN Administration Chest Pain Non-Formulary Medication 1.5 mg 06/27/23 09:00 Dulaglutide [Trulicity] SQ TU [facility] Ondansetron HCl 4 mg 06/22/23 22:08 Ondansetron 4 Mg Tab PO TID PRN Nausea Pantoprazole Sodium 40 mg 06/22/23 22:15 06/22/23 22:48 Pantoprazole 40 Mg Tablet PO 40 mg BID [facility] Administration Pregabalin 150 mg 06/22/23 22:15 06/22/23 22:48 Pregabalin 75 Mg Cap PO 150 mg BID AMANDA Administration Ranolazine 1,000 mg 06/22/23 22:15 06/22/23 22:47 Ranolazine 500 Mg Tab.Er.12h PO 1,000 mg BID AMANDA Administration Ropinirole HCl 1 mg 06/22/23 22:15 06/22/23 22:48 Ropinirole Hcl 1 Mg Tab PO 1 mg HS AMANDA Administration Intake and Output 06/22/23 06/23/23 06/23/23 22:59 06:59 14:59 Other: Weight 90.718 kg 90.718 kg 06/22/23 19:46 06/22/23 19:46
[2023-06-23] MEDS ORDERED: IPRATROPIUM-ALBUTEROL 3 ML NEB INHALATION SCH (12:00)
[2023-06-23] MEDS ORDERED: NICOTINE 21MG/24HR PATCH TRANSDERM SCH (12:15)
[2023-06-23 12:26] VITALS: BP 105/78; PULSE 67; RESP 18
--- NOTE | 2023-06-23 14:36 | P.HPIM ---
History of Present Illness H&P Date: 06/23/23 Chief Complaint: Chest pain This is a 52-year-old patient who follows with Kathryn oMise. Chronic stable medical conditions include COPD, diabetes, GERD, osteoarthritis, bipolar,. Continue to smoke. Patient has a known history of CAD with stent and coronary bypass. Last stent was over 5 years ago. For 3 days patient had a left precordial pain on and off for about 3 days. Initial 2 days nitroglycerin helping the stopped helping yesterday. Pain didn't radiate to the neck and arm. Patient has baseline junctional shortness of breath and wheezing from COPD. Decided to come in. Admitted for unstable angina Review of systems: GEN.: Tired EYES: None HEENT: None NECK: None RESPIRATORY: As above CARDIOVASCULAR: No edema GASTROINTESTINAL: None GENITOURINARY: None MUSCULOSKELETAL: Chronic joint pains LYMPHATICS: None HEMATOLOGICAL: None PSYCHIATRY: Anxious NEUROLOGICAL: None Past medical history to include: COPD, CAD with stent and coronary bypass, diabetes mellitus, GERD, osteomyelitis, scoliosis, restless legs syndrome, bipolar disorder Social history: Patient been smoking for 46 years. Used to be up to 2 packs a day. Now one pack a day. Lives alone. Physical examination: VITAL SIGNS: 98.6, 57, 20, 128/85, 98% on 3 L GENERAL: BMI 33.3, declining but awake not in distress. EYES: Pupils equal. Conjunctiva normal. HEENT: External appearance of nose and ears normal, oral cavity grossly normal. NECK: JVD not raised; masses not palpable. HEART: First and second heart sounds are normal; no edema. LUNGS:[ Respiratory rate normal; decreased breath sounds or wheezing. ABDOMEN: Soft, nontender, liver spleen not palpable, no masses palpable. PSYCH: Alert and oriented x3; mood and affect anxiousl. MUSCULOSKELETAL:No Clubbing/cyanosis;muscles-grossly intact NEUROLOGICAL: Cranial nerves grossly intact; no facial asymmetry, power and sensation grossly intact. LYMPHATICS: No lymph nodes palpable in the axilla and neck INVESTIGATIONS, reviewed in the clinical context: White count 12.6 hemoglobin 13.1 platelets 273 potassium 3.8 BUN 13 creatinine 0.77 Troponin I less than 0.0123 LDL 175 EKG tracing personally reviewed by me-no sinus rhythm. Nonspecific T ST segment changes. Chest x-ray film personally reviewed by me-possibly some hyperinflation. Chest CTA: Moderate emphysema. Diffuse bronchial wall thickening. Assessment and plan: -Possible unstable angina in a patient with known coronary artery disease and prior coronary bypass. Has had chest pain on and off for 3 days. With some initial relief with nitroglycerin. Has some nonspecific EKG changes. Negative troponin. Aspirin. Telemetry. Cardiology consulted. -COPD in a current smoker Symbicort, Spiriva. -Chronic nicotine dependence, cigarette smoker Nicotine patch. Patient advised against. -Bipolar disorder Abilify. Lexapro. Xanax when necessary. -Restless leg syndrome Requip 1 mg daily at bedtime -Diabetes mellitus type 2 on oral hypoglycemic Metformin. Follow Accu-Cheks and sliding scale. Trulicity. -Essential hypertension Zestril. Lopressor. Amlodipine. -Chronic pain in the chest at the bypass incision site. Patient takes Lyrica for the same. [place] when necessary. Care was discussed with the patient. Home medications resumed. Cardiac cardiology consulted. Was placed on Nitropaste in the ER. Past Medical History Past Medical History: Asthma, Coronary Artery Disease (CAD), COPD, Diabetes Mellitus, GERD/Reflux, Myocardial Infarction ([place]), Osteoarthritis (OA) Additional Past Medical History / Comment(s): DDD, scoliosis Last Myocardial Infarction Date:: 2011 History of Any Multi-Drug Resistant Organisms: None Reported Past Surgical History: Coronary Bypass/CABG, Heart Catheterization With Stent Additional Past Surgical History / Comment(s): seven stents Past Anesthesia/Blood Transfusion Reactions: No Reported Reaction Date of Last Stent Placement:: 11/2018 Past Psychological History: Anxiety, Bipolar Smoking Status: Current every day smoker Past Alcohol Use History: None Reported Additional Past Alcohol Use History / Comment(s): 1 ppd Past Drug Use History: Marijuana - Past Family History Mother Family Medical History: Cancer Additional Family Medical History / Comment(s): Ovarian cancer Father Family Medical History: Congestive Heart Failure (CHF) Fmily Family Medical History: No Reported History Medications and Allergies Home Medications Medication Instructions Recorded Confirmed Type Atorvastatin [Lipitor] 80 mg PO DAILY 07/08/20 06/22/23 History ARIPiprazole [Abilify] 5 mg PO DAILY 11/13/21 06/22/23 History Ranolazine [Ranexa] 1,000 mg PO BID 11/13/21 06/22/23 History Albuterol Inhaler [Ventolin Hfa 2 puff INHALATION RT-TID 03/27/23 06/22/23 History Inhaler] Aspirin EC [Ecotrin Low Dose] 81 mg PO DAILY 03/27/23 06/22/23 History Budesonide/Formoterol Fumarate 2 puff INHALATION RT-BID 03/27/23 06/22/23 History [Symbicort 160-4.5 Mcg Inhaler] Clopidogrel [Plavix] 75 mg PO DAILY 03/27/23 06/22/23 History Dulaglutide [Trulicity] 1.5 mg SQ TU 03/27/23 06/22/23 History Escitalopram [Lexapro] 20 mg PO DAILY 03/27/23 06/22/23 History Metoprolol Tartrate [Lopressor] 50 mg PO BID 03/27/23 06/22/23 History Nitroglycerin Sl Tabs [Nitrostat] 0.4 mg SL Q5M PRN 03/27/23 06/22/23 History Omeprazole 40 mg PO BID 03/27/23 06/22/23 History Ondansetron [Zofran] 4 mg PO TID PRN 03/27/23 06/22/23 History Pregabalin [Lyrica] 150 mg PO BID 03/27/23 06/22/23 History amLODIPine [Norvasc] 10 mg PO DAILY 03/27/23 06/22/23 History diphenhydrAMINE [Benadryl] 25 mg PO BID 03/27/23 06/22/23 History metFORMIN HCL 1,000 mg PO BID 03/27/23 06/22/23 History rOPINIRole HCL [Requip] 1 mg PO HS 03/27/23 06/22/23 History ALPRAZolam [Xanax] 0.5 mg PO TID PRN 06/22/23 06/22/23 History HYDROcodone/APAP 10-325MG [[place] 1 tab PO TID PRN 06/22/23 06/22/23 History 10-325] Tiotropium 2.5 Mcg/Puff [Spiriva 1 puff INHALATION RT-BID 06/22/23 06/22/23 History Respimat 2.5 Mcg] Isosorbide Mononitrate ER [Imdur] 60 mg PO DAILY #30 tab 06/23/23 Rx Nicotine [Nicoderm Cq 21 mg] 21 mg TRANSDERM DAILY #14 patch 06/23/23 Rx lisinopriL [Zestril] 10 mg PO DAILY #30 tab 06/23/23 Rx Allergies Allergy/AdvReac Type Severity Reaction Status Date / Time No Known Allergies Allergy Verified 04/03/23 12:29 Physical Exam Vitals: Vital Signs Temp Pulse Resp BP Pulse Ox 06/23/23 07:57 93 L 06/23/23 06:00 57 L 20 128/85 98 06/23/23 04:25 58 L 22 146/91 93 L 06/22/23 22:50 92 20 167/102 95 06/22/23 18:58 98.6 F 70 18 151/111 98 Intake and Output 06/22/23 06/23/23 06/23/23 22:59 06:59 14:59 Other: Weight 90.718 kg 90.718 kg Results CBC & Chem 7: 06/22/23 19:46 06/22/23 19:46 Labs: Abnormal Lab Results - Last 24 Hours (Table) 06/22/23 06/22/23 06/22/23 Range/Units 19:46 19:46 19:46 WBC 12.6 H (3.8-10.6) k/uL RDW 16.3 H (11.5-15.5) % Chloride 110 H (98-107) mmol/L Carbon Dioxide 20 L (22-30) mmol/L Glucose 122 H (74-99) mg/dL POC Glucose (mg/dL) (70-110) mg/dL Alkaline Phosphatase 144 H (38-126) U/L Triglycerides 185.00 H (0.00-149.00) mg/dL Cholesterol 257.00 H (0.00-200.00) mg/dL LDL Cholesterol, Calc 175.1 H (0.0-131.0) mg/dL 06/23/23 Range/Units 07:20 WBC (3.8-10.6) k/uL RDW (11.5-15.5) % Chloride (98-107) mmol/L Carbon Dioxide (22-30) mmol/L Glucose (74-99) mg/dL POC Glucose (mg/dL) 119 H (70-110) mg/dL Alkaline Phosphatase (38-126) U/L Triglycerides (0.00-149.00) mg/dL Cholesterol (0.00-200.00) mg/dL LDL Cholesterol, Calc (0.0-131.0) mg/dL Thrombosis Risk Factor Assmnt - Choose All That Apply Any of the Below Risk Factors Present?: Yes Each Factor Represents 1 point: Abnormal pulmonary function (COPD), Age 41-60 years Other Risk Factors: No Other congenital or acquired thrombophilia - If yes, enter type in comment: No Thrombosis Risk Factor Assessment Total Risk Factor Score: 2 Thrombosis Risk Factor Assessment Level: Low Risk
--- NOTE | 2023-06-23 21:18 | P.DS ---
Providers Date of admission: 06/22/23 20:47 Expected date of discharge: 06/23/23 Attending physician: Jay Jay Weaver Consults: 06/22/23 20:47 Consult Physician Urgent Consulting Provider: Genaro Guerra Consult Reason/Comments: chest pain Do you want consulting provider notified?: Yes Primary care physician: [facility] Course: Chief Complaint: Chest pain This is a 52-year-old patient who follows with Kathryn Moise. Chronic stable medical conditions include COPD, diabetes, GERD, osteoarthritis, bipolar,. Continue to smoke. Patient has a known history of CAD with stent and coronary bypass. Last stent was over 5 years ago. For 3 days patient had a left precordial pain on and off for about 3 days. Initial 2 days nitroglycerin helping the stopped helping yesterday. Pain didn't radiate to the neck and arm. Patient has baseline junctional shortness of breath and wheezing from COPD. Decided to come in. Admitted for unstable angina Patient was seen by cardiac he. Imdur 60 mg a day added. Lisinopril increased. Follow-up outpatient. Past medical history to include: COPD, CAD with stent and coronary bypass, diabetes mellitus, GERD, osteomyelitis, scoliosis, restless legs syndrome, bipolar disorder Social history: Patient been smoking for 46 years. Used to be up to 2 packs a day. Now one pack a day. Lives alone. Physical examination: VITAL SIGNS: 98.6, 57, 20, 128/85, 98% on 3 L GENERAL: BMI 33.3, declining but awake not in distress. EYES: Pupils equal. Conjunctiva normal. HEENT: External appearance of nose and ears normal, oral cavity grossly normal. NECK: JVD not raised; masses not palpable. HEART: First and second heart sounds are normal; no edema. LUNGS:[ Respiratory rate normal; decreased breath sounds or wheezing. ABDOMEN: Soft, nontender, liver spleen not palpable, no masses palpable. PSYCH: Alert and oriented x3; mood and affect anxiousl. MUSCULOSKELETAL:No Clubbing/cyanosis;muscles-grossly intact NEUROLOGICAL: Cranial nerves grossly intact; no facial asymmetry, power and sensation grossly intact. LYMPHATICS: No lymph nodes palpable in the axilla and neck INVESTIGATIONS, reviewed in the clinical context: White count 12.6 hemoglobin 13.1 platelets 273 potassium 3.8 BUN 13 creatinine 0.77 Troponin I less than 0.0123 LDL 175 EKG tracing personally reviewed by me-no sinus rhythm. Nonspecific T ST segment changes. Chest x-ray film personally reviewed by me-possibly some hyperinflation. Chest CTA: Moderate emphysema. Diffuse bronchial wall thickening. Assessment and plan: -Possible unstable angina in a patient with known coronary artery disease and prior coronary bypass. Has had chest pain on and off for 3 days. With some initial relief with nitroglycerin. Has some nonspecific EKG changes. Negative troponin. Aspirin. Telemetry. Seen by cardiac cardiology. Imdur 60 mg daily added. Follow-up outpatient. -COPD in a current smoker Symbicort, Spiriva. -Chronic nicotine dependence, cigarette smoker Nicotine patch. Patient advised against. -Bipolar disorder Abilify. Lexapro. Xanax when necessary. -Restless leg syndrome Requip 1 mg daily at bedtime -Diabetes mellitus type 2 on oral hypoglycemic Metformin. Follow Accu-Cheks and sliding scale. Trulicity. -Essential hypertension Zestril increased to 10 mg a day. Lopressor. Amlodipine. -Chronic pain in the chest at the bypass incision site. Patient takes Lyrica for the same. [place] when necessary. Disposition: Home Past Medical History Past Medical History: Asthma, Coronary Artery Disease (CAD), COPD, Diabetes Mellitus, GERD/Reflux, Myocardial Infarction ([place]), Osteoarthritis (OA) Additional Past Medical History / Comment(s): DDD, scoliosis Last Myocardial Infarction Date:: 2011 History of Any Multi-Drug Resistant Organisms: None Reported Past Surgical History: Coronary Bypass/CABG, Heart Catheterization With Stent Additional Past Surgical History / Comment(s): seven stents Past Anesthesia/Blood Transfusion Reactions: No Reported Reaction Date of Last Stent Placement:: 11/2018 Past Psychological History: Anxiety, Bipolar Smoking Status: Current every day smoker Past Alcohol Use History: None Reported Additional Past Alcohol Use History / Comment(s): 1 ppd Past Drug Use History: Marijuana - Past Family History Mother Family Medical History: Cancer Additional Family Medical History / Comment(s): Ovarian cancer Father Family Medical History: Congestive Heart Failure (CHF) Fmily Family Medical History: No Reported History Plan - Discharge Summary Discharge Rx Participant: Yes New Discharge Prescriptions: New Isosorbide Mononitrate ER [Imdur] 60 mg PO DAILY #30 tab Nicotine [Nicoderm Cq 21 mg] 21 mg TRANSDERM DAILY #14 patch lisinopriL [Zestril] 10 mg PO DAILY #30 tab Continue Atorvastatin [Lipitor] 80 mg PO DAILY ARIPiprazole [Abilify] 5 mg PO DAILY Ranolazine [Ranexa] 1,000 mg PO BID metFORMIN HCL 1,000 mg PO BID Nitroglycerin Sl Tabs [Nitrostat] 0.4 mg SL Q5M PRN PRN Reason: Chest Pain Dulaglutide [Trulicity] 1.5 mg SQ TU diphenhydrAMINE [Benadryl] 25 mg PO BID Aspirin EC [Ecotrin Low Dose] 81 mg PO DAILY Albuterol Inhaler [Ventolin Hfa Inhaler] 2 puff INHALATION RT-TID HYDROcodone/APAP 10-325MG [[place]land 10-325] 1 tab PO TID PRN PRN Reason: Pain rOPINIRole HCL [Requip] 1 mg PO HS Metoprolol Tartrate [Lopressor] 50 mg PO BID Escitalopram [Lexapro] 20 mg PO DAILY amLODIPine [Norvasc] 10 mg PO DAILY Omeprazole 40 mg PO BID Budesonide/Formoterol Fumarate [Symbicort 160-4.5 Mcg Inhaler] 2 puff INHALATION RT-BID Ondansetron [Zofran] 4 mg PO TID PRN PRN Reason: Nausea Pregabalin [Lyrica] 150 mg PO BID Clopidogrel [Plavix] 75 mg PO DAILY ALPRAZolam [Xanax] 0.5 mg PO TID PRN PRN Reason: Anxiety Tiotropium 2.5 Mcg/Puff [Spiriva Respimat 2.5 Mcg] 1 puff INHALATION RT-BID Discontinued lisinopriL [Zestril] 5 mg PO DAILY Isosorbide Dinitrate-Unk Dose 1 tab PO DIRECTED Discharge Medication List Atorvastatin [Lipitor] 80 mg PO DAILY 07/08/20 [History] ARIPiprazole [Abilify] 5 mg PO DAILY 11/13/21 [History] Ranolazine [Ranexa] 1,000 mg PO BID 11/13/21 [History] Albuterol Inhaler [Ventolin Hfa Inhaler] 2 puff INHALATION RT-TID 03/27/23 [History] Aspirin EC [Ecotrin Low Dose] 81 mg PO DAILY 03/27/23 [History] Budesonide/Formoterol Fumarate [Symbicort 160-4.5 Mcg Inhaler] 2 puff INHALATION RT-BID 03/27/23 [History] Clopidogrel [Plavix] 75 mg PO DAILY 03/27/23 [History] Dulaglutide [Trulicity] 1.5 mg SQ TU 03/27/23 [History] Escitalopram [Lexapro] 20 mg PO DAILY 03/27/23 [History] Metoprolol Tartrate [Lopressor] 50 mg PO BID 03/27/23 [History] Nitroglycerin Sl Tabs [Nitrostat] 0.4 mg SL Q5M PRN 03/27/23 [History] Omeprazole 40 mg PO BID 03/27/23 [History] Ondansetron [Zofran] 4 mg PO TID PRN 03/27/23 [History] Pregabalin [Lyrica] 150 mg PO BID 03/27/23 [History] amLODIPine [Norvasc] 10 mg PO DAILY 03/27/23 [History] diphenhydrAMINE [Benadryl] 25 mg PO BID 03/27/23 [History] metFORMIN HCL 1,000 mg PO BID 03/27/23 [History] rOPINIRole HCL [Requip] 1 mg PO HS 03/27/23 [History] ALPRAZolam [Xanax] 0.5 mg PO TID PRN 06/22/23 [History] HYDROcodone/APAP 10-325MG [[place] 10-325] 1 tab PO TID PRN 06/22/23 [History] Tiotropium 2.5 Mcg/Puff [Spiriva Respimat 2.5 Mcg] 1 puff INHALATION RT-BID 06/22/23 [History] Isosorbide Mononitrate ER [Imdur] 60 mg PO DAILY #30 tab 06/23/23 [Rx] Nicotine [Nicoderm Cq 21 mg] 21 mg TRANSDERM DAILY #14 patch 06/23/23 [Rx] lisinopriL [Zestril] 10 mg PO DAILY #30 tab 06/23/23 [Rx] Follow up Appointment(s)/Referral(s): González Devlin MD [STAFF PHYSICIAN] - 1 Week Arian Chaparro MD [Primary Care Provider] - 1-2 days Discharge Disposition: HOME SELF-CARE
[2023-06-27] MEDS ORDERED: NON FORMULARY DRUG (Dulaglutide [Trulicity] 1.5 MG/0.5 ML Each) SQ SCH (09:00)
== END 2023-06-23 12:30 | disposition home or self-care (01) ==
LOC: EC 18:51 → 6NMEDSUR 20:47
PROVIDERS: ADMIT Hospitalist; ATTEND Hospitalist
DX: R07.89 Other chest pain (principal); R07.2 Precordial pain; G89.29 Other chronic pain; I25.10 Atherosclerotic heart disease of native coronary artery without angina pectoris; J43.9 Emphysema, unspecified; I35.1 Nonrheumatic aortic (valve) insufficiency; I25.2 Old myocardial infarction; I10 Essential (primary) hypertension; E78.5 Hyperlipidemia, unspecified; K21.9 Gastro-esophageal reflux disease without esophagitis; M41.9 Scoliosis, unspecified; F17.210 Nicotine dependence, cigarettes, uncomplicated; G25.81 Restless legs syndrome; F31.9 Bipolar disorder, unspecified; F41.9 Anxiety disorder, unspecified; Z79.82 Long term (current) use of aspirin; Z79.02 Long term (current) use of antithrombotics/antiplatelets; Z79.51 Long term (current) use of inhaled steroids; Z79.85 Long-term (current) use of injectable non-insulin antidiabetic drugs; Z79.84 Long term (current) use of oral hypoglycemic drugs; Z79.899 Other long term (current) drug therapy; Z95.5 Presence of coronary angioplasty implant and graft; Z95.1 Presence of aortocoronary bypass graft; Z80.41 Family history of malignant neoplasm of ovary; Z82.49 Family history of ischemic heart disease and other diseases of the circulatory system
CPT/HCPCS: 99285; 36415; 94760; 93005 ×2; 80061; 80053; 83735; 84484; 85025; 85610; 85730; 71046; 71275; G0378 ×2; Q9967

== ENCOUNTER 2024-03-15 23:05 | Observation (INO) | payer OTHER ==
--- NOTE | 2024-03-15 23:16 | ED ---
Recheck HPI - General Stated Complaint: chest pain Time Seen by Provider: 03/15/24 23:07 Source: RN notes reviewed, old records reviewed Mode of arrival: EMS Limitations: no limitations - History of Present Illness Initial Comments: Is a 53-year-old female accepted in transfer from outside facility for chest pain. Well-known to our facility for chest pain and cardiac evaluations MD Complaint: abnormal lab Returns Today for: Called Because of Abnormal Lab/Test, persistent/worsening pain related to initial visit Symptoms Since Prior Visit: worsening pain Context: planned re-check Associated Symptoms: none - Related Data Home Medications Medication Instructions Recorded Confirmed Atorvastatin [Lipitor] 80 mg PO DAILY 07/08/20 06/22/23 ARIPiprazole [Abilify] 5 mg PO DAILY 11/13/21 06/22/23 Ranolazine [Ranexa] 1,000 mg PO BID 11/13/21 06/22/23 Albuterol Inhaler [Ventolin Hfa 2 puff INHALATION RT-TID 03/27/23 06/22/23 Inhaler] Aspirin EC [Ecotrin Low Dose] 81 mg PO DAILY 03/27/23 06/22/23 Budesonide/Formoterol Fumarate 2 puff INHALATION RT-BID 03/27/23 06/22/23 [Symbicort 160-4.5 Mcg Inhaler] Clopidogrel [Plavix] 75 mg PO DAILY 03/27/23 06/22/23 Dulaglutide [Trulicity] 1.5 mg SQ TU 03/27/23 06/22/23 Escitalopram [Lexapro] 20 mg PO DAILY 03/27/23 06/22/23 Metoprolol Tartrate [Lopressor] 50 mg PO BID 03/27/23 06/22/23 Nitroglycerin Sl Tabs [Nitrostat] 0.4 mg SL Q5M PRN 03/27/23 06/22/23 Omeprazole 40 mg PO BID 03/27/23 06/22/23 Ondansetron [Zofran] 4 mg PO TID PRN 03/27/23 06/22/23 Pregabalin [Lyrica] 150 mg PO BID 03/27/23 06/22/23 amLODIPine [Norvasc] 10 mg PO DAILY 03/27/23 06/22/23 diphenhydrAMINE [Benadryl] 25 mg PO BID 03/27/23 06/22/23 metFORMIN HCL 1,000 mg PO BID 03/27/23 06/22/23 rOPINIRole HCL [Requip] 1 mg PO HS 03/27/23 06/22/23 ALPRAZolam [Xanax] 0.5 mg PO TID PRN 06/22/23 06/22/23 HYDROcodone/APAP 10-325MG [[place] 1 tab PO TID PRN 06/22/23 06/22/23 10-325] Tiotropium 2.5 Mcg/Puff [Spiriva 1 puff INHALATION RT-BID 06/22/23 06/22/23 Respimat 2.5 Mcg] Previous Rx's Medication Instructions Recorded Isosorbide Mononitrate ER [Imdur] 60 mg PO DAILY #30 tab 06/23/23 Nicotine [Nicoderm Cq 21 mg] 21 mg TRANSDERM DAILY #14 patch 06/23/23 lisinopriL [Zestril] 10 mg PO DAILY #30 tab 06/23/23 Allergies Allergy/AdvReac Type Severity Reaction Status Date / Time No Known Allergies Allergy Verified 04/03/23 12:29 Review of Systems ROS Statement: Those systems with pertinent positive or pertinent negative responses have been documented in the HPI. ROS Other: All systems not noted in ROS Statement are negative. Past Medical History Past Medical History: Asthma, Coronary Artery Disease (CAD), COPD, Diabetes Mellitus, GERD/Reflux, Myocardial Infarction ([place]), Osteoarthritis (OA) Additional Past Medical History / Comment(s): DDD, scoliosis Last Myocardial Infarction Date:: 2011 History of Any Multi-Drug Resistant Organisms: None Reported Past Surgical History: Coronary Bypass/CABG, Heart Catheterization With Stent Additional Past Surgical History / Comment(s): seven stents Past Anesthesia/Blood Transfusion Reactions: No Reported Reaction Date of Last Stent Placement:: 11/2018 Past Psychological History: Anxiety, Bipolar Smoking Status: Current every day smoker Past Alcohol Use History: None Reported Additional Past Alcohol Use History / Comment(s): 1 ppd Past Drug Use History: Marijuana - Past Family History Mother Family Medical History: Cancer Additional Family Medical History / Comment(s): Ovarian cancer Father Family Medical History: Congestive Heart Failure (CHF) Fmily Family Medical History: No Reported History General Exam General appearance: alert, in no apparent distress Head exam: Present: atraumatic, normocephalic, normal inspection Eye exam: Present: normal appearance, PERRL, EOMI. Absent: scleral icterus, conjunctival injection, periorbital swelling ENT exam: Present: normal exam, mucous membranes moist Neck exam: Present: normal inspection. Absent: tenderness, meningismus, lymphadenopathy Respiratory exam: Present: normal lung sounds bilaterally. Absent: respiratory distress, wheezes, rales, rhonchi, stridor Cardiovascular Exam: Present: regular rate, normal rhythm, normal heart sounds. Absent: systolic murmur, diastolic murmur, rubs, gallop, clicks GI/Abdominal exam: Present: soft, normal bowel sounds. Absent: distended, tenderness, guarding, rebound, rigid Extremities exam: Present: normal inspection, full ROM, normal capillary refill. Absent: tenderness, pedal edema, joint swelling, calf tenderness Back exam: Present: normal inspection Neurological exam: Present: alert, oriented X3, CN II-XII intact Psychiatric exam: Present: normal affect, normal mood Skin exam: Present: warm, dry, intact, normal color. Absent: rash Course Vital Signs 03/15/24 03/16/24 23:08 00:04 Temperature 98.4 F Pulse Rate 86 94 Respiratory 20 18 Rate Blood Pressure 152/110 131/81 O2 Sat by Pulse 96 92 L Oximetry - Reevaluation(s) Reevaluation #1: 03/16/24 01:15 Records reviewed transferring paperwork is also reviewed Reevaluation #2: 03/16/24 01:15 Patient's chest pain is resolved here in the ER or at least mildly improved Reevaluation #3: 03/16/24 01:16 Patient informed of results and questions answered Reevaluation #4: Was pt. sent in by a medical professional or institution (, PA, POOL TABLE MECHANIC, urgent care, hospital, or long term...) When possible be specific @ -no Did you speak to anyone other than the patient for history (EMS, parent, family, police, friend...)? What history was obtained from this source @ -no Did you review nursing and triage notes (agree or disagree)? Why? @ -agree Are old charts reviewed (outside hosp., previous admission, EMS record, old EKG, old radiological studies, urgent care reports/EKG's, long term records)? Report findings @ -yes Differential Diagnosis (chest pain, altered mental status, abdominal pain women, abdominal pain men, vaginal bleeding, weakness, fever, dyspnea, syncope, headache, dizziness, GI bleed, back pain, seizure, CVA, palpatations, mental health, musculoskeletal)? @ -prior EKG interpreted by me (3pts min.). @ -yes X-rays interpreted by me (1pt min.). @ -yes negative for acute disease CT interpreted by me (1pt min.). @ -no U/S interpreted by me (1pt. min.). @ -no What testing was considered but not performed or refused? (CT, X-rays, U/S, labs)? Why? @ -none What meds were considered but not given or refused? Why? @ -none Did you discuss the management of the patient with other professionals (professionals i.e. , PA, POOL TABLE MECHANIC, lab, RT, psych nurse, social sciences department chair, hot blaster, teacher, transport corps officer, case filler)? Give summary @ -no Was smoking cessation discussed for >3mins.? @ -no Was critical care preformed (if so, how long)? @ -no Were there social determinants of health that impacted care today? How? (Homelessness, low income, unemployed, alcoholism, drug addiction, transportation, low edu. Level, literacy, decrease access to med. care, mcc, rehab)? @ -none Was there de-escalation of care discussed even if they declined (Discuss DNR or withdrawal of care, Hospice)? DNR status @ -no What co-morbidities impacted this encounter? (DM, HTN, Smoking, COPD, CAD, Cancer, CVA, ARF, Chemo, Hep., AIDS, mental health diagnosis, sleep apnea, morbid obesity)? @ -none Was patient admitted / discharged? Hospital course, mention meds given and route, prescriptions, significant lab abnormalities, going to OR and other pertinent info. @ - Undiagnosed new problem with uncertain prognosis? @ -no Drug Therapy requiring intensive monitoring for toxicity (Heparin, Nitro, Insulin, Cardizem)? @ -no Were any procedures done? @ -no Diagnosis/symptom? @ - Acute, or Chronic, or Acute on Chronic? @ -Acute Uncomplicated (without systemic symptoms) or Complicated (systemic symptoms)? @ -Complicated Side effects of treatment? @ -no Exacerbation, Progression, or Severe Exacerbation? @ -exacerbation Poses a threat to life or bodily function? How? (Chest pain, [place], [place], pneumonia, PE, COPD, DKA, ARF, appy, cholecystitis, CVA, Diverticulitis, Homicidal, Suicidal, threat to staff... and all critical care pts) @ -yes Reevaluation #5: Differential Chest Pain: Stable Angina, Unstable Angina, STEMI, NSTEMI Aortic Dissection, Pneumothorax, Musculoskeletal, Esophageal Spasm GERD, Cholecystitis, Pancreatitis, Zoster, this is not meant to be an all-inclusive list. - Consultations Consultation #1: Spoke with Roxanna who agrees to admit this patient Medical Decision Making - Medical Decision Making 53 Female accepted in transfer for chest pain observation - Lab Data Result diagrams: 03/16/24 00:00 03/16/24 00:00 Lab Results 03/16/24 03/16/24 03/16/24 Range/Units 00:00 00:00 00:00 WBC 10.5 (3.8-10.6) k/uL RBC 5.49 H (3.80-5.40) m/uL Hgb 14.4 (11.4-16.0) gm/dL Hct 45.8 (34.0-46.0) % MCV 83.6 (80.0-100.0) fL MCH 26.3 (25.0-35.0) pg MCHC 31.5 (31.0-37.0) g/dL RDW 18.2 H (11.5-15.5) % Plt Count 355 (150-450) k/uL MPV 8.2 Neutrophils % 41 % Lymphocytes % 49 % Monocytes % 5 % Eosinophils % 2 % Basophils % 1 % Neutrophils # 4.3 (1.3-7.7) k/uL Lymphocytes # 5.2 H (1.0-4.8) k/uL Monocytes # 0.6 (0-1.0) k/uL Eosinophils # 0.2 (0-0.7) k/uL Basophils # 0.1 (0-0.2) k/uL Anisocytosis Slight PT 11.0 (10.0-12.5) sec INR 1.0 (<1.2) APTT 88.7 H (22.0-30.0) sec Sodium 140 (137-145) mmol/L Potassium 3.4 L (3.5-5.1) mmol/L Chloride 110 H (98-107) mmol/L Carbon Dioxide 18 L (22-30) mmol/L Anion Gap 12 mmol/L BUN 21 H (7-17) mg/dL Creatinine 0.91 (0.52-1.04) mg/dL Est GFR (CKD-EPI)AfAm 82 (>60 ml/min/1.73 sqM) Est GFR (CKD-EPI)NonAf 71 (>60 ml/min/1.73 sqM) Glucose 129 H (74-99) mg/dL Calcium 9.4 (8.4-10.2) mg/dL Magnesium 1.8 (1.6-2.3) mg/dL Total Bilirubin 1.0 (0.2-1.3) mg/dL AST 31 (14-36) U/L ALT 13 (4-34) U/L Alkaline Phosphatase 157 H (38-126) U/L Troponin I (0.000-0.034) ng/mL NT-Pro-B Natriuret Pep 652 pg/mL Total Protein 7.0 (6.3-8.2) g/dL Albumin 4.3 (3.5-5.0) g/dL 03/16/24 Range/Units 00:00 WBC (3.8-10.6) k/uL RBC (3.80-5.40) m/uL Hgb (11.4-16.0) gm/dL Hct (34.0-46.0) % MCV (80.0-100.0) fL MCH (25.0-35.0) pg MCHC (31.0-37.0) g/dL RDW (11.5-15.5) % Plt Count (150-450) k/uL MPV Neutrophils % % Lymphocytes % % Monocytes % % Eosinophils % % Basophils % % Neutrophils # (1.3-7.7) k/uL Lymphocytes # (1.0-4.8) k/uL Monocytes # (0-1.0) k/uL Eosinophils # (0-0.7) k/uL Basophils # (0-0.2) k/uL Anisocytosis PT (10.0-12.5) sec INR (<1.2) APTT (22.0-30.0) sec Sodium (137-145) mmol/L Potassium (3.5-5.1) mmol/L Chloride (98-107) mmol/L Carbon Dioxide (22-30) mmol/L Anion Gap mmol/L BUN (7-17) mg/dL Creatinine (0.52-1.04) mg/dL Est GFR (CKD-EPI)AfAm (>60 ml/min/1.73 sqM) Est GFR (CKD-EPI)NonAf (>60 ml/min/1.73 sqM) Glucose (74-99) mg/dL Calcium (8.4-10.2) mg/dL Magnesium (1.6-2.3) mg/dL Total Bilirubin (0.2-1.3) mg/dL AST (14-36) U/L ALT (4-34) U/L Alkaline Phosphatase (38-126) U/L Troponin I <0.012 (0.000-0.034) ng/mL NT-Pro-B Natriuret Pep pg/mL Total Protein (6.3-8.2) g/dL Albumin (3.5-5.0) g/dL - EKG Data -: EKG Interpreted by Me (EKG is is a 52 TN 125 QRS 80 QTc 407) Disposition Clinical Impression: Chest pain Disposition: ADMITTED IP TO THIS HOSP Condition: Undetermined Is patient prescribed a controlled substance at d/c from ED?: No Referrals: Arian Chaparro MD [Primary Care Provider] - 1-2 days Time of Disposition: 01:00
[2024-03-15 23:20] VITALS: TEMP 98.4
[2024-03-15] MEDS: SODIUM CHLORIDE 0.9% 1,000 ML IV STA (23:28)
[2024-03-16] MEDS: HEPARIN SOD,PORK IN 0.45% NACL 25,000 UNIT in 0.45% NACL 1 250ML.BAG IV SCH (00:07)
[2024-03-16 00:35] LABS: Anisocytosis Slight; Basophils # (A) 0.1 k/uL (0-0.2); Basophils % (A) 1 %; Eosinophils # (A) 0.2 k/uL (0-0.7); Eosinophils % (A) 2 %; HCT 45.8 % (34.0-46.0); HGB 14.4 gm/dL (11.4-16.0); Lymphocytes # (A) 5.2 k/uL (1.0-4.8); Lymphocytes % (A) 49 %; MCH 26.3 pg (25.0-35.0); MCHC 31.5 g/dL (31.0-37.0); MCV 83.6 fL (80.0-100.0); Mean Platelet Volume 8.2; Monocytes # (A) 0.6 k/uL (0-1.0); Monocytes % (A) 5 %; Neutrophils # (A) 4.3 k/uL (1.3-7.7); Neutrophils % (A) 41 %; Platelet Count 355 k/uL (150-450); RBC 5.49 m/uL (3.80-5.40); RDW 18.2 % (11.5-15.5); WBC 10.5 k/uL (3.8-10.6)
[2024-03-16 00:43] LABS: ALT 13 U/L (4-34); AST 31 U/L (14-36); African American GFR (CKD) 82 (>60 ml/min/1.73 sqM); Albumin 4.3 g/dL (3.5-5.0); Alkaline Phosphatase 157 U/L (38-126); Anion Gap 12 mmol/L; Blood Urea Nitrogen 21 mg/dL (7-17); Calcium 9.4 mg/dL (8.4-10.2); Carbon Dioxide 18 mmol/L (22-30); Chloride 110 mmol/L (98-107); Glucose 129 mg/dL (74-99); Magnesium 1.8 mg/dL (1.6-2.3); Non-African American GFR(CKD) 71 (>60 ml/min/1.73 sqM); Potassium 3.4 mmol/L (3.5-5.1); Sodium 140 mmol/L (137-145)
[2024-03-16 00:51] LABS: NT-Pro-B-Type Natriuretic Pept 652 pg/mL
[2024-03-16 00:52] LABS: Partial Thromboplastin Time 88.7 sec (22.0-30.0)
[2024-03-16] MEDS ORDERED: NITROGLYCERIN SL TABS 0.4 MG TAB SUBLINGUAL PRN ×2 (01:17→10:56)
[2024-03-16] MEDS: MORPHINE SULFATE 4 MG/ML SYRINGE IV PRN (03:41)
[2024-03-16] MEDS: HEPARIN SODIUM 1,000 UN/ML (10ML VL) IV PRN (09:24)
[2024-03-16] MEDS ORDERED: HYDROcodone/APAP 5-325MG 1 EACH TAB PO PRN (10:56)
[2024-03-16] MEDS ORDERED: ALPRAZolam 0.5 MG TAB PO PRN (10:56)
[2024-03-16] MEDS ORDERED: ALBUTEROL NEBULIZED 2.5 MG/3 ML INHALATION PRN (10:56)
[2024-03-16] MEDS ORDERED: ONDANSETRON 4 MG TAB PO PRN (10:56)
[2024-03-16] MEDS ORDERED: DEXTROSE 50% SYRINGE 50 ML IVP PRN ×2 (10:58)
[2024-03-16] MEDS ORDERED: NON FORMULARY DRUG (Aspirin Ec 81 MG Tablet) PO SCH (11:00)
[2024-03-16] MEDS: RANOLAZINE 500 MG TAB.ER.12H PO SCH (11:19)
[2024-03-16] MEDS: ATORVASTATIN 80 MG TAB PO SCH (11:19)
[2024-03-16] MEDS: METOPROLOL TARTRATE 50 MG TAB PO SCH (11:19)
[2024-03-16] MEDS: PANTOPRAZOLE 40 MG TABLET PO SCH (11:19)
[2024-03-16] MEDS: CLOPIDOGREL 75 MG TAB PO SCH (11:19)
[2024-03-16] MEDS: ISOSORBIDE MONONITRATE ER 30 MG TAB.ER.24H PO SCH (11:20)
[2024-03-16] MEDS: metFORMIN 500 MG TAB PO SCH (11:20)
[2024-03-16] MEDS: ENOXAPARIN 40 MG/0.4 ML SYRINGE SQ SCH (11:20)
[2024-03-16] MEDS: DAPAGLIFLOZIN PROPANEDIOL 5 MG TABLET PO SCH (11:20)
[2024-03-16] MEDS: lisinopriL 10 MG TAB PO SCH (11:20)
--- NOTE | 2024-03-16 11:56 | P.CRDCN ---
History of Present Illness Consult date: 03/16/24 Requesting physician: Jay Jay Weaver Reason for Consult (text): chest pain Chief complaint: chest pain History of present illness: This is a pleasant 53-year-old female who follows with Dr. Acosta at [place] [facility]. She has a prior history of two-vessel CABG in 2008 at [facility] in [place]. Most recent available cardiac catheterization done here in 2021 showed stable CAD with patent vein graft to the LAD and totally occluded graft to the circumflex with patent proximal circumflex stent And mild RCA disease. She presented with complaints of sudden onset chest and jaw pain somewhat similar but different compared to what she has felt in the past she does have stable angina with activity but this is unchanged for quite some time. She recently underwent cardiac catheterization at [facility] and according to the patient this was stable with some blockage not requiring intervention. Troponins have been negative. EKG is relatively unchanged compared to previous. She has been chest pain-free since admission. Past Medical History Past Medical History: Asthma, Coronary Artery Disease (CAD), COPD, Diabetes Mellitus, GERD/Reflux, Myocardial Infarction ([place]), Osteoarthritis (OA) Additional Past Medical History / Comment(s): DDD, scoliosis Last Myocardial Infarction Date:: 2011 History of Any Multi-Drug Resistant Organisms: None Reported Past Surgical History: Coronary Bypass/CABG, Heart Catheterization With Stent Additional Past Surgical History / Comment(s): seven stents Past Anesthesia/Blood Transfusion Reactions: No Reported Reaction Date of Last Stent Placement:: 11/2018 Past Psychological History: Anxiety, Bipolar Smoking Status: Current every day smoker Past Alcohol Use History: None Reported Additional Past Alcohol Use History / Comment(s): 1 ppd Past Drug Use History: Marijuana - Past Family History Mother Family Medical History: Cancer Additional Family Medical History / Comment(s): Ovarian cancer Father Family Medical History: Congestive Heart Failure (CHF) Fmily Family Medical History: No Reported History Medications and Allergies Home Medications Medication Instructions Recorded Confirmed Type Atorvastatin [Lipitor] 80 mg PO DAILY 07/08/20 03/16/24 History Ranolazine [Ranexa] 1,000 mg PO BID 11/13/21 03/16/24 History Albuterol Inhaler [Ventolin Hfa 2 puff INHALATION RT-QID PRN 03/27/23 03/16/24 History Inhaler] Aspirin EC [Ecotrin Low Dose] 81 mg PO DAILY 03/27/23 03/16/24 History Budesonide/Formoterol Fumarate 2 puff INHALATION RT-BID 03/27/23 03/16/24 History [Symbicort 160-4.5 Mcg Inhaler] Clopidogrel [Plavix] 75 mg PO DAILY 03/27/23 03/16/24 History Metoprolol Tartrate [Lopressor] 50 mg PO BID 03/27/23 03/16/24 History Nitroglycerin Sl Tabs [Nitrostat] 0.4 mg SL Q5M PRN 03/27/23 03/16/24 History Omeprazole 40 mg PO BID 03/27/23 03/16/24 History Ondansetron [Zofran] 4 mg PO TID PRN 03/27/23 03/16/24 History Pregabalin [Lyrica] 150 mg PO TID 03/27/23 03/16/24 History amLODIPine [Norvasc] 10 mg PO DAILY 03/27/23 03/16/24 History metFORMIN HCL 1,000 mg PO BID 03/27/23 03/16/24 History rOPINIRole HCL [Requip] 1 mg PO HS 03/27/23 03/16/24 History ALPRAZolam [Xanax] 0.5 mg PO BID PRN 06/22/23 03/16/24 History lisinopriL [Zestril] 10 mg PO DAILY #30 tab 06/23/23 03/16/24 Rx Dapagliflozin Propanediol [Farxiga] 5 mg PO DAILY 03/16/24 03/16/24 History Doxycycline Hyclate 100 mg PO BID 03/16/24 03/16/24 History Dulaglutide [Trulicity] 3 mg SQ WE 03/16/24 03/16/24 History HYDROcodone/APAP 5-325MG [[place] 1 tab PO BID PRN 03/16/24 03/16/24 History 5-325] Insulin Lispro [humaLOG Kwikpen] See Protocol SQ AC-TID PRN 03/16/24 03/16/24 History Ipratropium-Albuterol Nebulize 3 ml INHALATION RT-TID 03/16/24 03/16/24 History [Duoneb 0.5 mg-3 mg/3 ml Soln] Isosorbide Mononitrate ER [Imdur] 30 mg PO DAILY 03/16/24 03/16/24 History Nystatin [Nystatin Oral Susp] 4 ml PO QID 03/16/24 03/16/24 History Spiriva Respimat 1.25mcg/Acutation 2 puff INHALATION RT-DAILY 03/16/24 03/16/24 History Mist predniSONE [Deltasone] 40 mg PO DAILY 03/16/24 03/16/24 History Allergies Allergy/AdvReac Type Severity Reaction Status Date / Time No Known Allergies Allergy Verified 03/16/24 10:07 Physical Exam Vitals: Vital Signs Temp Pulse Resp BP Pulse Ox 03/16/24 11:24 72 134/96 03/16/24 10:41 81 16 114/81 96 03/16/24 08:29 92 L 03/16/24 07:59 85 16 138/100 98 03/16/24 06:18 89 14 127/89 96 03/16/24 03:38 85 16 125/94 95 03/16/24 00:04 94 18 131/81 92 L 03/15/24 23:08 98.4 F 86 20 152/110 96 Intake and Output 03/15/24 03/16/24 03/16/24 22:59 06:59 14:59 Intake Total 7.668 69.229 Balance 7.668 69.229 Intake: Intake, IV Titration 7.668 69.229 Amount Heparin Sod,Pork in 0.45% 7.668 69.229 NaCl 25,000 unit In 0.45 % NaCl 1 250ml.bag @ 10.5 UNITS/KG/HR 10.002 mls/ hr IV .Q24H [facility] Rx#: [id number] Other: Weight 95.254 kg PHYSICAL EXAMINATION: This is a 53-year-old female in no apparent distress at the time of my examination. VITAL SIGNS: Reviewed. HEENT: Head is atraumatic, normocephalic. Pupils are equal, round. Sclerae anicteric. Conjunctivae are clear. Mucous membranes of the mouth are moist. Neck is supple. There is no elevated jugular venous pressure. No carotid bruit is heard. CHEST EXAMINATION: Clear to auscultation bilaterally. No wheezes rales or rhonchi. Respirations even and nonlabored. HEART EXAMINATION: Heart regular, positive S1 and S2. No S3. No S4. No clicks, rubs or murmurs. ABDOMEN: Soft, nontender. Bowel sounds are heard. No organomegaly noted. EXTREMITIES: 2+ peripheral pulses with no evidence of peripheral edema and no calf tenderness noted. NEUROLOGIC EXAMINATION: Patient is awake, alert and oriented x3. Results 03/16/24 00:00 03/16/24 00:00 Cardiac Enzymes 03/16/24 03/16/24 03/16/24 Range/Units 00:00 00:00 01:52 AST 31 (14-36) U/L Troponin I <0.012 <0.012 (0.000-0.034) ng/mL 03/16/24 Range/Units 07:52 AST (14-36) U/L Troponin I <0.012 (0.000-0.034) ng/mL Coagulation 03/16/24 03/16/24 Range/Units 00:00 07:52 PT 11.0 (10.0-12.5) sec APTT 88.7 H 36.0 H (22.0-30.0) sec CBC 03/16/24 Range/Units 00:00 WBC 10.5 (3.8-10.6) k/uL RBC 5.49 H (3.80-5.40) m/uL Hgb 14.4 (11.4-16.0) gm/dL Hct 45.8 (34.0-46.0) % Plt Count 355 (150-450) k/uL Comprehensive Metabolic Panel 03/16/24 Range/Units 00:00 Sodium 140 (137-145) mmol/L Potassium 3.4 L (3.5-5.1) mmol/L Chloride 110 H (98-107) mmol/L Carbon Dioxide 18 L (22-30) mmol/L BUN 21 H (7-17) mg/dL Creatinine 0.91 (0.52-1.04) mg/dL Glucose 129 H (74-99) mg/dL Calcium 9.4 (8.4-10.2) mg/dL AST 31 (14-36) U/L ALT 13 (4-34) U/L Alkaline Phosphatase 157 H (38-126) U/L Total Protein 7.0 (6.3-8.2) g/dL Albumin 4.3 (3.5-5.0) g/dL Current Medications Generic Name Dose Route Start Last Admin Trade Name Freq PRN Reason Stop Dose Admin Hydrocodone Bitart/Acetaminophen 1 each 03/16/24 10:56 Hydrocodone/Apap 5-325mg 1 Each Tab PO BID PRN Pain Albuterol Sulfate 2.5 mg 03/16/24 10:56 Albuterol Nebulized 2.5 Mg/3 Ml INHALATION RT-QID PRN Shortness Of Breath Albuterol/Ipratropium 3 ml 03/16/24 13:00 Ipratropium-Albuterol 3 Ml Neb INHALATION RT-TID AMANDA Alprazolam 0.5 mg 03/16/24 10:56 Alprazolam 0.5 Mg Tab PO BID PRN Anxiety Aspirin 81 mg 03/17/24 09:00 Aspirin 81 Mg PO DAILY AMANDA Atorvastatin Calcium 80 mg 03/16/24 11:00 03/16/24 11:19 Atorvastatin 80 Mg Tab PO 80 mg DAILY AMANDA Administration Budesonide/Formoterol Fumarate 2 puff 03/16/24 10:56 Symbicort 160-4.5 Mcg Inhaler INHALATION RT-BID AMANDA Clopidogrel Bisulfate 75 mg 03/16/24 11:00 03/16/24 11:19 Clopidogrel 75 Mg Tab PO 75 mg DAILY AMANDA Administration Dapagliflozin 5 mg 03/16/24 11:00 03/16/24 11:20 Dapagliflozin Propanediol 5 Mg Tablet PO 5 mg DAILY AMANDA Administration Dextrose/Water 25 ml 03/16/24 10:58 Dextrose 50% Syringe 50 Ml IVP PER PROTOCOL PRN Hypoglycemia Protocol Dextrose/Water 50 ml 03/16/24 10:58 Dextrose 50% Syringe 50 Ml IVP PER PROTOCOL PRN Hypoglycemia Protocol Enoxaparin Sodium 40 mg 03/16/24 11:00 03/16/24 11:20 Enoxaparin 40 Mg/0.4 Ml Syringe SQ 40 mg DAILY AMANDA Administration Sodium Chloride 1,000 mls @ 20 mls/hr 03/15/24 23:15 03/15/24 23:28 Saline 0.9% IV 03/16/24 23:14 20 mls/hr .Q24H STA Administration Insulin Aspart 0 unit 03/16/24 12:30 Insulin Aspart (Novolog) 100 Unit/Ml Vial SQ AC-TID [facility] Protocol Isosorbide Mononitrate 30 mg 03/16/24 11:00 03/16/24 11:20 Isosorbide Mononitrate Er 30 Mg Tab.Er.24h PO 30 mg DAILY AMANDA Administration Lisinopril 10 mg 03/16/24 11:00 03/16/24 11:20 Lisinopril 10 Mg Tab PO 10 mg DAILY AMANDA Administration Metformin HCl 1,000 mg 03/16/24 11:00 03/16/24 11:20 Metformin 500 Mg Tab PO 1,000 mg BID-W/MEALS AMANDA Administration Metoprolol Tartrate 50 mg 03/16/24 11:00 03/16/24 11:19 Metoprolol Tartrate 50 Mg Tab PO 50 mg BID AMANDA Administration Morphine Sulfate 4 mg 03/16/24 01:17 03/16/24 08:04 Morphine Sulfate 4 Mg/Ml Syringe IV 4 mg Q4HR PRN Administration Chest Pain Nitroglycerin 0.4 mg 03/16/24 01:17 Nitroglycerin Sl Tabs 0.4 Mg Tab SUBLINGUAL Q5M PRN Chest Pain Non-Formulary Medication 3 mg 03/20/24 09:00 Dulaglutide [Trulicity] SQ WE AMANDA Ondansetron HCl 4 mg 03/16/24 10:56 Ondansetron 4 Mg Tab PO TID PRN Nausea Pantoprazole Sodium 40 mg 03/16/24 11:00 03/16/24 11:19 Pantoprazole 40 Mg Tablet PO 40 mg AC-BID AMANDA Administration Ranolazine 1,000 mg 03/16/24 11:00 03/16/24 11:19 Ranolazine 500 Mg Tab.Er.12h PO 1,000 mg BID AMANDA Administration Ropinirole HCl 1 mg 03/16/24 21:00 Ropinirole Hcl 1 Mg Tab PO HS [facility] Intake and Output 03/15/24 03/16/24 03/16/24 22:59 06:59 14:59 Intake Total 7.668 69.229 Balance 7.668 69.229 Intake: Intake, IV Titration 7.668 69.229 Amount Heparin Sod,Pork in 0.45% 7.668 69.229 NaCl 25,000 unit In 0.45 % NaCl 1 250ml.bag @ 10.5 UNITS/KG/HR 10.002 mls/ hr IV .Q24H [facility] Rx#: [id number] Other: Weight 95.254 kg 03/16/24 00:00 03/16/24 00:00 Assessment and Plan Assessment: #1 chest pain, acute coronary event has been ruled out 2 CAD with prior CABG in 2008 with subsequent stent to the circumflex #3 hypertension #4 hyperlipidemia #5 diabetes Plan: From cardiology's perspective though we will attempt to obtain results of recent cardiac catheterization. Will obtain a 2D echo with Doppler study to assess cardiac structure and function. Continue current home cardiac medications. If echocardiogram shows no significant abnormalities may consider discharge home w ith follow-up with her primary steno typist. ACCOUNTING FILE CLERK note has been reviewed, I agree with a documented findings and plan of care. Patient was seen and examined.
[2024-03-16 12:00] LABS: Glucose,Whole Blood 111 mg/dL (70-110)
[2024-03-16] MEDS: [UNRECOGNIZED DRUG - OTHER] INHALATION SCH (12:14)
[2024-03-16] MEDS: TIOTROPIUM INHALATION SCH (12:14)
[2024-03-16] MEDS: predniSONE 20 MG TAB PO SCH (12:14)
[2024-03-16] MEDS: SYMBICORT 160-4.5 MCG INHALER INHALATION SCH (12:18)
[2024-03-16] MEDS: INSULIN ASPART (NovoLOG) 100 UNIT/ML VIAL SQ SCH (12:20)
[2024-03-16] MEDS: IPRATROPIUM-ALBUTEROL 3 ML NEB INHALATION SCH (12:31)
[2024-03-16 13:18] VITALS: BP 103/70; PULSE 81; RESP 16
[2024-03-16] MEDS ORDERED: TEMAZEPAM 15 MG CAP PO PRN (13:44)
[2024-03-16] MEDS ORDERED: LACTULOSE 20 GM/30 ML CUP PO PRN (13:44)
[2024-03-16] MEDS ORDERED: CALCIUM CARBONATE 500 MG CHEWABLE PO PRN (13:44)
[2024-03-16] MEDS ORDERED: NALOXONE 0.4 MG/ML 1 ML VIAL IV PRN (13:44)
[2024-03-16] MEDS ORDERED: ONDANSETRON 4 MG/2 ML VIAL IVP PRN (13:44)
[2024-03-16] MEDS ORDERED: ACETAMINOPHEN TAB 325 MG TAB PO PRN (13:44)
--- NOTE | 2024-03-16 13:46 | P.HPIM ---
History of Present Illness H&P Date: 03/16/24 Chief Complaint: Chest pain This is a 52-year-old patient who follows with Kathryn Moise. Chronic stable medical conditions include COPD, diabetes, GERD, osteoarthritis, bipolar,. Continue to smoke. Patient has a known history of CAD with stent and coronary bypass. Last stent about [address] Oconnor. Patient underwent a cardiac catheterization in the last 1 to 2 months. Some blockage was discovered. But was medically managed. Left precordial pressure started yesterday. Going up to the jaw. Has been present on and off even at rest. No dizziness no lightheadedness. Did break down into perspiration. Tired. Nausea. Admitted unstable angina. Patient walks about 100 feet he gets cramping in both the legs. Continues to smoke a pack a day. Review of systems: GEN.: Tired EYES: None HEENT: None NECK: None RESPIRATORY: As above CARDIOVASCULAR: As above GASTROINTESTINAL: None GENITOURINARY: None MUSCULOSKELETAL: Chronic joint pains LYMPHATICS: None HEMATOLOGICAL: None PSYCHIATRY: Anxious NEUROLOGICAL: None Past medical history to include: COPD, CAD with stent and coronary bypass, diabetes mellitus, GERD, osteomyelitis, scoliosis, restless legs syndrome, bipolar disorder Social history: Patient been smoking for 46 years. Used to be up to 2 packs a day. Now one pack a day. Lives alone. Physical examination: VITAL SIGNS: Afebrile, 81, 16, 114/81, 96% on 2 L GENERAL: BMI 34.9, reclining bed awake slightly anxious EYES: Pupils equal. Conjunctiva normal. HEENT: External appearance of nose and ears normal, oral cavity grossly normal. NECK: JVD not raised; masses not palpable. HEART: First and second heart sounds are normal; no edema. LUNGS:[ Respiratory rate normal; decreased breath sounds . ABDOMEN: Soft, nontender, liver spleen not palpable, no masses palpable. PSYCH: Alert and oriented x3; mood and affect anxiousl. MUSCULOSKELETAL:No Clubbing/cyanosis;muscles-grossly intact NEUROLOGICAL: Cranial nerves grossly intact; no facial asymmetry, power and sensation grossly intact. LYMPHATICS: No lymph nodes palpable in the axilla and neck INVESTIGATIONS, reviewed in the clinical context: March 16: White count 10.5 hemoglobin 14.4 platelets 355 sodium 140 potassium 3.4 BUN 21 creatinine 0.91 Troponin I less than 0.012 x 3 EKG tracing personally reviewed by me-normal sinus rhythm. ST segment d epression in inferior lateral leads Assessment and plan: -Possible unstable angina in a patient with known coronary artery disease and prior coronary bypass. Patient last stent was about 2 years ago. Cardiac catheterization with last 1 to 2 months showed blockage with no intervention except for medical management. Aspirin. Telemetry. Seen by cardiology. They have asked for a 2D echocardiogram. -COPD in a current smoker Symbicort, Spiriva. -Chronic nicotine dependence, cigarette smoker Nicotine patch. . -Bipolar disorder Abilify. Lexapro. Xanax when necessary. -Restless leg syndrome Requip 1 mg daily at bedtime -Diabetes mellitus type 2 on oral hypoglycemic Metformin. Follow Accu-Cheks and sliding scale. Trulicity. -Essential hypertension Zestril . Lopressor. Amlodipine. -Chronic pain in the chest at the bypass incision site. takes Lyrica for the same. [place] when necessary. Discussed with patient. Follow with cardiology. Past Medical History Past Medical History: Asthma, Coronary Artery Disease (CAD), COPD, Diabetes Antionette itus, GERD/Reflux, Myocardial Infarction ([place]), Osteoarthritis ([place]) Additional Past Medical History / Comment(s): DDD, scoliosis Last Myocardial Infarction Date:: 2011 History of Any Multi-Drug Resistant Organisms: None Reported Past Surgical History: Coronary Bypass/CABG, Heart Catheterization With Stent Additional Past Surgical History / Comment(s): seven stents Past Anesthesia/Blood Transfusion Reactions: No Reported Reaction Date of Last Stent Placement:: 11/2018 Past Psychological History: Anxiety, Bipolar Smoking Status: Current every day smoker Past Alcohol Use History: None Reported Additional Past Alcohol Use History / Comment(s): 1 ppd Past Drug Use History: Marijuana - Past Family History Mother Family Medical History: Cancer Additional Family Medical History / Comment(s): Ovarian cancer Father Family Medical History: Congestive Heart Failure (CHF) Fmily Family Medical History: No Reported History Medications and Allergies Home Medications Medication Instructions Recorded Confirmed Type Atorvastatin [Lipitor] 80 mg PO DAILY 07/08/20 03/16/24 History Ranolazine [Ranexa] 1,000 mg PO BID 11/13/21 03/16/24 History Albuterol Inhaler [Ventolin Hfa 2 puff INHALATION RT-QID PRN 03/27/23 03/16/24 History Inhaler] Aspirin EC [Ecotrin Low Dose] 81 mg PO DAILY 03/27/23 03/16/24 History Budesonide/Formoterol Fumarate 2 puff INHALATION RT-BID 03/27/23 03/16/24 History [Symbicort 160-4.5 Mcg Inhaler] Clopidogrel [Plavix] 75 mg PO DAILY 03/27/23 03/16/24 History Metoprolol Tartrate [Lopressor] 50 mg PO BID 03/27/23 03/16/24 History Nitroglycerin Sl Tabs [Nitrostat] 0.4 mg SL Q5M PRN 03/27/23 03/16/24 History Omeprazole 40 mg PO BID 03/27/23 03/16/24 History Ondansetron [Zofran] 4 mg PO TID PRN 03/27/23 03/16/24 History Pregabalin [Lyrica] 150 mg PO TID 03/27/23 03/16/24 History amLODIPine [Norvasc] 10 mg PO DAILY 03/27/23 03/16/24 History metFORMIN HCL 1,000 mg PO BID 03/27/23 03/16/24 History rOPINIRole HCL [Requip] 1 mg PO HS 03/27/23 03/16/24 History ALPRAZolam [Xanax] 0.5 mg PO BID PRN 06/22/23 03/16/24 History lisinopriL [Zestril] 10 mg PO DAILY #30 tab 06/23/23 03/16/24 Rx Dapagliflozin Propanediol [Farxiga] 5 mg PO DAILY 03/16/24 03/16/24 History Doxycycline Hyclate 100 mg PO BID 03/16/24 03/16/24 History Dulaglutide [Trulicity] 3 mg SQ WE 03/16/24 03/16/24 History HYDROcodone/APAP 5-325MG [[place] 1 tab PO BID PRN 03/16/24 03/16/24 History 5-325] Insulin Lispro [humaLOG Kwikpen] See Protocol SQ AC-TID PRN 03/16/24 03/16/24 History Ipratropium-Albuterol Nebulize 3 ml INHALATION RT-TID 03/16/24 03/16/24 History [Duoneb 0.5 mg-3 mg/3 ml Soln] Isosorbide Mononitrate ER [Imdur] 30 mg PO DAILY 03/16/24 03/16/24 History Nystatin [Nystatin Oral Susp] 4 ml PO QID 03/16/24 03/16/24 History Spiriva Respimat 1.25mcg/Acutation 2 puff INHALATION RT-DAILY 03/16/24 03/16/24 History Mist predniSONE [Deltasone] 40 mg PO DAILY 03/16/24 03/16/24 History Allergies Allergy/AdvReac Type Severity Reaction Status Date / Time No Known Allergies Allergy Verified 03/16/24 10:07 Physical Exam Vitals: Vital Signs Temp Pulse Resp BP Pulse Ox 03/16/24 10:41 81 16 114/81 96 03/16/24 08:29 92 L 03/16/24 07:59 85 16 138/100 98 03/16/24 06:18 89 14 127/89 96 03/16/24 03:38 85 16 125/94 95 03/16/24 00:04 94 18 131/81 92 L 03/15/24 23:08 98.4 F 86 20 152/110 96 Intake and Output 03/15/24 03/16/24 03/16/24 22:59 06:59 14:59 Intake Total 7.668 69.229 Balance 7.668 69.229 Intake: Intake, IV Titration 7.668 69.229 Amount Heparin Sod,Pork in 0.45% 7.668 69.229 NaCl 25,000 unit In 0.45 % NaCl 1 250ml.bag @ 10.5 UNITS/KG/HR 10.002 mls/ hr IV .Q24H [facility] Rx#: [id number] Other: Weight 95.254 kg Results CBC & Chem 7: 03/16/24 00:00 03/16/24 00:00 Labs: Abnormal Lab Results - Last 24 Hours (Table) 03/16/24 03/16/24 03/16/24 Range/Units 00:00 00:00 00:00 RBC 5.49 H (3.80-5.40) m/uL RDW 18.2 H (11.5-15.5) % Lymphocytes # 5.2 H (1.0-4.8) k/uL APTT 88.7 H (22.0-30.0) sec Potassium 3.4 L (3.5-5.1) mmol/L Chloride 110 H (98-107) mmol/L Carbon Dioxide 18 L (22-30) mmol/L BUN 21 H (7-17) mg/dL Glucose 129 H (74-99) mg/dL Alkaline Phosphatase 157 H (38-126) U/L 03/16/24 Range/Units 07:52 RBC (3.80-5.40) m/uL RDW (11.5-15.5) % Lymphocytes # (1.0-4.8) k/uL APTT 36.0 H (22.0-30.0) sec Potassium (3.5-5.1) mmol/L Chloride (98-107) mmol/L Carbon Dioxide (22-30) mmol/L BUN (7-17) mg/dL Glucose (74-99) mg/dL Alkaline Phosphatase (38-126) U/L
[2024-03-16] MEDS: NICOTINE 21MG/24HR PATCH TRANSDERM SCH (16:24)
[2024-03-16 17:00] LABS: Glucose,Whole Blood 108 mg/dL (70-110)
[2024-03-17] MEDS ORDERED: ASPIRIN 81 MG PO SCH (09:00)
[2024-03-17] MEDS ORDERED: ASPIRIN 325 MG TAB PO SCH (09:00)
--- NOTE | 2024-03-17 09:49 | P.DS ---
Providers Date of admission: 03/16/24 01:17 Expected date of discharge: 03/16/24 (Left AMA) Attending physician: Jay Jay Weaver Consults: 03/16/24 01:17 Consult Physician Urgent Consulting Provider: Iqra Ascencio Consult Reason/Comments: cp Do you want consulting provider notified?: Yes Primary care physician: [facility] Course: Chief Complaint: Chest pain This is a 52-year-old patient who follows with Kathryn Moise. Chronic stable medical conditions include COPD, diabetes, GERD, osteoarthritis, bipolar,. Continue to smoke. Patient has a known history of CAD with stent and coronary bypass. Last stent about [address] [employer] Dr. Oconnor. Patient underwent a cardiac catheterization in the last 1 to 2 months. Some blockage was discovered. But was medically managed. Left precordial pressure started yesterday. Going up to the jaw. Has been present on and off even at rest. No dizziness no lightheadedness. Did break down into perspiration. Tired. Nausea. Admitted unstable angina. Patient walks about 100 feet he gets cramping in both the legs. Continues to smoke a pack a day. Later in the day nurse called to state that patient leaving AMA Past medical history to include: COPD, CAD with stent and coronary bypass, diabetes mellitus, GERD, osteomyelitis, scoliosis, restless legs syndrome, bipolar disorder Social history: Patient been smoking for 46 years. Used to be up to 2 packs a day. Now one pack a day. Lives alone. Physical examination: VITAL SIGNS: Afebrile, 81, 16, 114/81, 96% on 2 L GENERAL: BMI 34.9, reclining bed awake slightly anxious EYES: Pupils equal. Conjunctiva normal. HEENT: External appearance of nose and ears normal, oral cavity grossly normal. NECK: JVD not raised; masses not palpable. HEART: First and second heart sounds are normal; no edema. LUNGS:[ Respiratory rate normal; decreased breath sounds . ABDOMEN: Soft, nontender, liver spleen not palpable, no masses palpable. PSYCH: Alert and oriented x3; mood and affect anxiousl. MUSCULOSKELETAL:No Clubbing/cyanosis;muscles-grossly intact NEUROLOGICAL: Cranial nerves grossly intact; no facial asymmetry, power and sensation grossly intact. LYMPHATICS: No lymph nodes palpable in the axilla and neck INVESTIGATIONS, reviewed in the clinical context: March 16: White count 10.5 hemoglobin 14.4 platelets 355 sodium 140 potassium 3.4 BUN 21 creatinine 0.91 Troponin I less than 0.012 x 3 EKG tracing personally reviewed by me-normal sinus rhythm. ST segment depression in inferior lateral leads Assessment and plan: -Possible unstable angina in a patient with known coronary artery disease and prior coronary bypass. Patient last stent was about 2 years ago. Cardiac catheterization with last 1 to 2 months showed blockage with no intervention except for medical management. Aspirin. Telemetry. Seen by cardiology. They have asked for a 2D echocardiogram. -COPD in a current smoker Symbicort, Spiriva. -Chronic nicotine dependence, cigarette smoker Nicotine patch. . -Bipolar disorder Abilify. Lexapro. Xanax when necessary. -Restless leg syndrome Requip 1 mg daily at bedtime -Diabetes mellitus type 2 on oral hypoglycemic Metformin. Follow Accu-Cheks and sliding scale. Trulicity. -Essential hypertension Zestril . Lopressor. Amlodipine. -Chronic pain in the chest at the bypass incision site. takes Lyrica for the same. [place] when necessary. Disposition: Left AMA Past Medical History Past Medical History: Asthma, Coronary Artery Disease (CAD), COPD, Diabetes Mellitus, GERD/Reflux, Myocardial Infarction ([place]), Osteoarthritis (OA) Additional Past Medical History / Comment(s): DDD, scoliosis Last Myocardial Infarction Date:: 2011 History of Any Multi-Drug Resistant Organisms: None Reported Past Surgical History: Coronary Bypass/CABG, Heart Catheterization With Stent Additional Past Surgical History / Comment(s): seven stents Past Anesthesia/Blood Transfusion Reactions: No Reported Reaction Date of Last Stent Placement:: 11/2018 Past Psychological History: Anxiety, Bipolar Smoking Status: Current every day smoker Past Alcohol Use History: None Reported Additional Past Alcohol Use History / Comment(s): 1 ppd Past Drug Use History: Marijuana Patient Condition at Discharge: Undetermined Plan - Discharge Summary New Discharge Prescriptions: No Action Atorvastatin [Lipitor] 80 mg PO DAILY Ranolazine [Ranexa] 1,000 mg PO BID metFORMIN HCL 1,000 mg PO BID Nitroglycerin Sl Tabs [Nitrostat] 0.4 mg SL Q5M PRN PRN Reason: Chest Pain Aspirin EC [Ecotrin Low Dose] 81 mg PO DAILY Albuterol Inhaler [Ventolin Hfa Inhaler] 2 puff INHALATION RT-QID PRN PRN Reason: Shortness Of Breath Isosorbide Mononitrate ER [Imdur] 30 mg PO DAILY Insulin Lispro [humaLOG Kwikpen] See Protocol SQ AC-TID PRN PRN Reason: HIGH BLOOD SUGAR Dapagliflozin Propanediol [Farxiga] 5 mg PO DAILY predniSONE [Deltasone] 40 mg PO DAILY Dulaglutide [Trulicity] 3 mg SQ WE Doxycycline Hyclate 100 mg PO BID Ipratropium-Albuterol Nebulize [Duoneb 0.5 mg-3 mg/3 ml Soln] 3 ml INHALATION RT-TID rOPINIRole HCL [Requip] 1 mg PO HS Metoprolol Tartrate [Lopressor] 50 mg PO BID amLODIPine [Norvasc] 10 mg PO DAILY Omeprazole 40 mg PO BID Budesonide/Formoterol Fumarate [Symbicort 160-4.5 Mcg Inhaler] 2 puff INHALATION RT-BID Ondansetron [Zofran] 4 mg PO TID PRN PRN Reason: Nausea Pregabalin [Lyrica] 150 mg PO TID Clopidogrel [Plavix] 75 mg PO DAILY ALPRAZolam [Xanax] 0.5 mg PO BID PRN PRN Reason: Anxiety lisinopriL [Zestril] 10 mg PO DAILY #30 tab Spiriva Respimat 1.25mcg/Acutation Mist 2 puff INHALATION RT-DAILY HYDROcodone/APAP 5-325MG [[place] 5-325] 1 tab PO BID PRN PRN Reason: Pain Nystatin [Nystatin Oral Susp] 4 ml PO QID Discharge Medication List Atorvastatin [Lipitor] 80 mg PO DAILY 07/08/20 [History] Ranolazine [Ranexa] 1,000 mg PO BID 11/13/21 [History] Albuterol Inhaler [Ventolin Hfa Inhaler] 2 puff INHALATION RT-QID PRN 03/27/23 [History] Aspirin EC [Ecotrin Low Dose] 81 mg PO DAILY 03/27/23 [History] Budesonide/Formoterol Fumarate [Symbicort 160-4.5 Mcg Inhaler] 2 puff INHALATION RT-BID 03/27/23 [History] Clopidogrel [Plavix] 75 mg PO DAILY 03/27/23 [History] Metoprolol Tartrate [Lopressor] 50 mg PO BID 03/27/23 [History] Nitroglycerin Sl Tabs [Nitrostat] 0.4 mg SL Q5M PRN 03/27/23 [History] Omeprazole 40 mg PO BID 03/27/23 [History] Ondansetron [Zofran] 4 mg PO TID PRN 03/27/23 [History] Pregabalin [Lyrica] 150 mg PO TID 03/27/23 [History] amLODIPine [Norvasc] 10 mg PO DAILY 03/27/23 [History] metFORMIN HCL 1,000 mg PO BID 03/27/23 [History] rOPINIRole HCL [Requip] 1 mg PO HS 03/27/23 [History] ALPRAZolam [Xanax] 0.5 mg PO BID PRN 06/22/23 [History] lisinopriL [Zestril] 10 mg PO DAILY #30 tab 06/23/23 [Rx] Dapagliflozin Propanediol [Farxiga] 5 mg PO DAILY 03/16/24 [History] Doxycycline Hyclate 100 mg PO BID 03/16/24 [History] Dulaglutide [Trulicity] 3 mg SQ WE 03/16/24 [History] HYDROcodone/APAP 5-325MG [[place] 5-325] 1 tab PO BID PRN 03/16/24 [History] Insulin Lispro [humaLOG Kwikpen] See Protocol SQ AC-TID PRN 03/16/24 [History] Ipratropium-Albuterol Nebulize [Duoneb 0.5 mg-3 mg/3 ml Soln] 3 ml INHALATION RT-TID 03/16/24 [History] Isosorbide Mononitrate ER [Imdur] 30 mg PO DAILY 03/16/24 [History] Nystatin [Nystatin Oral Susp] 4 ml PO QID 03/16/24 [History] Spiriva Respimat 1.25mcg/Acutation Mist 2 puff INHALATION RT-DAILY 03/16/24 [History] predniSONE [Deltasone] 40 mg PO DAILY 03/16/24 [History] Follow up Appointment(s)/Referral(s): Arian Chaparro MD [Primary Care Provider] - 1-2 days Discharge Disposition: LEFT AGAINST MEDICAL ADVICE
[2024-03-20] MEDS ORDERED: NON FORMULARY DRUG (Dulaglutide [Trulicity] 3 MG/0.5 ML Each) SQ SCH (09:00)
== END 2024-03-16 18:57 | disposition left against medical advice (07) ==
LOC: EC 23:05 → 6NMEDSUR 03-16 01:17
PROVIDERS: ADMIT Hospitalist; ATTEND Hospitalist
DX: R07.89 Other chest pain (principal); G89.29 Other chronic pain; I25.810 Atherosclerosis of coronary artery bypass graft(s) without angina pectoris; I25.82 Chronic total occlusion of coronary artery; E11.9 Type 2 diabetes mellitus without complications; R68.84 Jaw pain; I10 Essential (primary) hypertension; E78.5 Hyperlipidemia, unspecified; K21.9 Gastro-esophageal reflux disease without esophagitis; M19.90 Unspecified osteoarthritis, unspecified site; F31.9 Bipolar disorder, unspecified; G25.81 Restless legs syndrome; Z53.29 Procedure and treatment not carried out because of patient's decision for other reasons; F17.210 Nicotine dependence, cigarettes, uncomplicated; Z79.82 Long term (current) use of aspirin; Z79.02 Long term (current) use of antithrombotics/antiplatelets; Z79.51 Long term (current) use of inhaled steroids; Z79.85 Long-term (current) use of injectable non-insulin antidiabetic drugs; Z79.52 Long term (current) use of systemic steroids; Z79.84 Long term (current) use of oral hypoglycemic drugs; Z79.899 Other long term (current) drug therapy; Z95.1 Presence of aortocoronary bypass graft; Z95.5 Presence of coronary angioplasty implant and graft
CPT/HCPCS: 96376; 96365; 96366; 96372; 96375; 99285; 36415; 94640; 93005 ×2; 83880; 80053; 83735; 84484; 85025; 85610; 85730; G0378; J2270; J1650; J1644 ×2

== ENCOUNTER 2024-05-20 15:39 | Observation (INO) | payer OTHER ==
--- NOTE | 2024-05-20 16:01 | ED ---
General Adult HPI - General Chief complaint: Chest Pain Stated complaint: Chest Pain Time Seen by Provider: 05/20/24 15:44 Source: patient, RN notes reviewed, old records reviewed Mode of arrival: EMS Limitations: no limitations - History of Present Illness Initial comments: 53 male presenting with left-sided upper chest pain. Pain began suddenly after an episode of vomiting. Patient states that her stomach had not felt well this morning and she began to have nausea vomiting subsequently developed left upper chest pain with associated dyspnea. Patient denies substernal chest pain currently. She also reports associated dyspnea. Patient was transported by paramedics, given aspirin, nitroglycerin, fentanyl for pain. Additionally she was given albuterol and Solu-Medrol. - Related Data Home Medications Medication Instructions Recorded Confirmed Atorvastatin [Lipitor] 80 mg PO DAILY 07/08/20 05/20/24 Ranolazine [Ranexa] 1,000 mg PO BID 11/13/21 05/20/24 Albuterol Inhaler [Ventolin Hfa 2 puff INHALATION RT-QID PRN 03/27/23 05/20/24 Inhaler] Aspirin EC [Ecotrin Low Dose] 81 mg PO DAILY 03/27/23 05/20/24 Budesonide/Formoterol Fumarate 2 puff INHALATION RT-BID 03/27/23 05/20/24 [Symbicort 160-4.5 Mcg Inhaler] Clopidogrel [Plavix] 75 mg PO DAILY 03/27/23 05/20/24 Metoprolol Tartrate [Lopressor] 50 mg PO BID 03/27/23 05/20/24 Nitroglycerin Sl Tabs [Nitrostat] 0.4 mg SL Q5M PRN 03/27/23 05/20/24 Omeprazole 40 mg PO BID 03/27/23 05/20/24 Ondansetron [Zofran] 4 mg PO TID PRN 03/27/23 05/20/24 Pregabalin [Lyrica] 150 mg PO TID 03/27/23 05/20/24 amLODIPine [Norvasc] 10 mg PO DAILY 03/27/23 05/20/24 metFORMIN HCL 1,000 mg PO BID 03/27/23 05/20/24 rOPINIRole HCL [Requip] 1 mg PO HS 03/27/23 05/20/24 ALPRAZolam [Xanax] 0.5 mg PO BID PRN 06/22/23 05/20/24 Dapagliflozin Propanediol [Farxiga] 5 mg PO DAILY 03/16/24 05/20/24 Dulaglutide [Trulicity] 3 mg SQ WE 03/16/24 05/20/24 HYDROcodone/APAP 5-325MG [[place] 1 tab PO BID PRN 03/16/24 05/20/24 5-325] Insulin Lispro [humaLOG Kwikpen] See Protocol SQ AC-TID 03/16/24 05/20/24 Ipratropium-Albuterol Nebulize 3 ml INHALATION RT-TID 03/16/24 05/20/24 [Duoneb 0.5 mg-3 mg/3 ml Soln] Isosorbide Mononitrate ER [Imdur] 30 mg PO DAILY 03/16/24 05/20/24 Spiriva Respimat 1.25mcg/Acutation 2 puff INHALATION RT-DAILY 03/16/24 05/20/24 Mist Previous Rx's Medication Instructions Recorded lisinopriL [Zestril] 10 mg PO DAILY #30 tab 06/23/23 Allergies Allergy/AdvReac Type Severity Reaction Status Date / Time No Known Allergies Allergy Verified 05/20/24 16:39 Review of Systems ROS Statement: Those systems with pertinent positive or pertinent negative responses have been documented in the HPI. ROS Other: All systems not noted in ROS Statement are negative. Past Medical History Past Medical History: Asthma, Coronary Artery Disease (CAD), COPD, Diabetes Mellitus, GERD/Reflux, Hypertension, Myocardial Infarction ([place]), Osteoarthritis (OA) Additional Past Medical History / Comment(s): DDD, scoliosis Last Myocardial Infarction Date:: 2011 History of Any Multi-Drug Resistant Organisms: None Reported Past Surgical History: Coronary Bypass/CABG, Heart Catheterization With Stent Additional Past Surgical History / Comment(s): seven stents Past Anesthesia/Blood Transfusion Reactions: No Reported Reaction Date of Last Stent Placement:: 11/2018 Past Psychological History: Anxiety, Bipolar Smoking Status: Current every day smoker Past Alcohol Use History: None Reported Past Drug Use History: Marijuana - Past Family History Mother Family Medical History: Cancer Additional Family Medical History / Comment(s): Ovarian cancer Father Family Medical History: Congestive Heart Failure (CHF) Fmily Family Medical History: No Reported History General Exam Limitations: no limitations General appearance: alert, in distress Head exam: Present: atraumatic, normocephalic Eye exam: Present: normal appearance, PERRL ENT exam: Present: normal exam Neck exam: Present: normal inspection. Absent: tenderness, meningismus Respiratory exam: Present: respiratory distress, rhonchi Cardiovascular Exam: Present: regular rate, normal rhythm GI/Abdominal exam: Present: soft. Absent: distended, tenderness, guarding Extremities exam: Present: normal inspection, normal capillary refill Course Vital Signs 05/20/24 05/20/24 05/20/24 15:42 15:47 15:57 Temperature 97.1 F L Pulse Rate 102 H 105 H Pulse Rate [ 108 H Auto Damage Insurance Appraiser ] Respiratory 26 H 30 H Rate Blood Pressure 148/112 161/131 O2 Sat by Pulse 93 L 94 L Oximetry 05/20/24 05/20/24 05/20/24 16:05 16:41 17:30 Temperature Pulse Rate 79 113 H Pulse Rate [ Auto Damage Insurance Appraiser ] Respiratory 28 H 20 34 H Rate Blood Pressure 142/89 151/116 O2 Sat by Pulse 97 96 Oximetry 05/20/24 05/20/24 05/20/24 17:51 18:03 19:02 Temperature Pulse Rate 94 96 76 Pulse Rate [ Auto Damage Insurance Appraiser ] Respiratory 24 20 18 Rate Blood Pressure 136/96 146/97 118/79 O2 Sat by Pulse 95 96 95 Oximetry - Reevaluation(s) Reevaluation #1: 05/20/24 19:54 Patient has persistent chest pain requiring multiple doses of medication. Pain is atypical at this time. No associated diaphoresis.'s are improved and stable. Repeat troponin is pending. Had been given aspirin by paramedics prior to arrival. Medical Decision Making - Medical Decision Making Was pt. sent in by a medical professional or institution (, PA, CIVIL ENGINEERING TECHNICIAN, urgent care, hospital, or senior care...) When possible be specific @ -No Did you speak to anyone other than the patient for history (EMS, parent, family, police, friend...)? What history was obtained from this source @ -No Did you review nursing and triage notes (agree or disagree)? Why? @ -I reviewed and agree with nursing and triage notes Were old charts reviewed (outside hosp., previous admission, EMS record, old EKG, old radiological studies, urgent care reports/EKG's, senior care records)? Report findings @ -No old charts were reviewed Differential Diagnosis (chest pain, altered mental status, abdominal pain women, abdominal pain men, vaginal bleeding, weakness, fever, dyspnea, syncope, headache, dizziness, GI bleed, back pain, seizure, CVA, palpatations, mental health, musculoskeletal)? @ -Not applicable EKG interpreted by me (3pts min.). @Sinus rhythm rate of 96, MI interval 133, QRS duration 82, QTc [address] segment elevation X-rays interpreted by me (1pt min.). @ -Single view chest x-ray negative for acute cardiopulmonary finding CT interpreted by me (1pt min.). @CT angiogram reviewed of the chest abdomen pelvis, no aortic pathology. U/S interpreted by me (1pt. min.). @ -None done What testing was considered but not performed or refused? (CT, X-rays, U/S, labs)? Why? @ -None What meds were considered but not given or refused? Why? @ -None Did you discuss the management of the patient with other professionals (professionals i.e. , PA, CIVIL ENGINEERING TECHNICIAN, lab, RT, psych nurse, social work manager, puzzle assembler, teacher, fire officer, nurse outreach case manager)? Give summary @ -Case discussed with [facility], will admit, Joseph Was smoking cessation discussed for >3mins.? @ -No Was critical care preformed (if so, how long)? @ -No Were there social determinants of health that impacted care today? How? (Homelessness, low income, unemployed, alcoholism, drug addiction, transportation, low edu. Level, literacy, decrease access to med. care, [place] [facility], rehab)? @ -No Was there de-escalation of care discussed even if they declined (Discuss DNR or withdrawal of care, Hospice)? DNR status @ -No What co-morbidities impacted this encounter? (DM, HTN, Smoking, COPD, CAD, Cancer, CVA, ARF, Chemo, Hep., AIDS, mental health diagnosis, sleep apnea, morbid obesity)? @ -None Was patient admitted / discharged? Hospital course, mention meds given and route, prescriptions, significant lab abnormalities, going to OR and other perti nent info. @ -53-year-old female with left-sided chest pain radiating into her back. Patient is in significant pain upon arrival. EKG is sinus without ST segment elevation. I did perform single view chest followed by CT angiography to rule out aortic pathology. This was negative. Patient has normal CBC, normal CMP, negative initial troponin. Her pain is atypical but persistent. She will be observed overnight with repeat cardiac enzymes, telemetry, cardiology consultation. Undiagnosed new problem with uncertain prognosis? @ -No Drug Therapy requiring intensive monitoring for toxicity (Heparin, Nitro, Insulin, Cardizem)? @ -No Were any procedures done? @ -No Diagnosis/symptom? @ -Left-sided chest pain Acute, or Chronic, or Acute on Chronic? @ -[Acute Uncomplicated (without systemic symptoms) or Complicated (systemic symptoms)? @ -Default Side effects of treatment? @ -No Exacerbation, Progression, or Severe Exacerbation? @ -No Poses a threat to life or bodily function? How? (Chest pain, [place], [place], pneumonia, PE, COPD, DKA, ARF, appy, cholecystitis, CVA, Diverticulitis, Homicidal, Suicidal, threat to staff... and all critical care pts) @Yes, chest pain, ACS - Lab Data Result diagrams: 05/20/24 15:52 05/20/24 15:52 Lab Results 05/20/24 05/20/24 05/20/24 Range/Units 15:52 15:52 15:52 WBC 10.5 (3.8-10.6) k/uL RBC 4.61 (3.80-5.40) m/uL Hgb 13.0 (11.4-16.0) gm/dL Hct 39.5 (34.0-46.0) % MCV 85.7 (80.0-100.0) fL MCH 28.2 (25.0-35.0) pg MCHC 32.9 (31.0-37.0) g/dL RDW 17.1 H (11.5-15.5) % Plt Count 377 (150-450) k/uL MPV 7.6 Neutrophils % 52 % Lymphocytes % 38 % Monocytes % 6 % Eosinophils % 2 % Basophils % 0 % Neutrophils # 5.4 (1.3-7.7) k/uL Lymphocytes # 4.0 (1.0-4.8) k/uL Monocytes # 0.6 (0-1.0) k/uL Eosinophils # 0.2 (0-0.7) k/uL Basophils # 0.0 (0-0.2) k/uL Hypochromasia Slight Anisocytosis Slight PT 10.0 (10.0-12.5) sec INR 0.9 (<1.2) APTT 23.0 (22.0-30.0) sec Sodium 137 (137-145) mmol/L Potassium 3.9 (3.5-5.1) mmol/L Chloride 113 H (98-107) mmol/L Carbon Dioxide 16 L (22-30) mmol/L Anion Gap 8 mmol/L BUN 10 (7-17) mg/dL Creatinine 0.68 (0.52-1.04) mg/dL Est GFR (CKD-EPI)AfAm >90 (>60 ml/min/1.73 sqM) Est GFR (CKD-EPI)NonAf >90 (>60 ml/min/1.73 sqM) Glucose 129 H (74-99) mg/dL Plasma Lactic Acid Sarthak (0.7-2.0) mmol/L Calcium 9.5 (8.4-10.2) mg/dL Magnesium 1.7 (1.6-2.3) mg/dL Total Bilirubin 0.9 (0.2-1.3) mg/dL AST 24 (14-36) U/L ALT 14 (4-34) U/L Alkaline Phosphatase 108 (38-126) U/L Troponin I (0.000-0.034) ng/mL NT-Pro-B Natriuret Pep 106 pg/mL Total Protein 6.8 (6.3-8.2) g/dL Albumin 4.1 (3.5-5.0) g/dL Lipase 80 (23-300) U/L 05/20/24 05/20/24 Range/Units 15:52 15:52 WBC (3.8-10.6) k/uL RBC (3.80-5.40) m/uL Hgb (11.4-16.0) gm/dL Hct (34.0-46.0) % MCV (80.0-100.0) fL MCH (25.0-35.0) pg MCHC (31.0-37.0) g/dL RDW (11.5-15.5) % Plt Count (150-450) k/uL MPV Neutrophils % % Lymphocytes % % Monocytes % % Eosinophils % % Basophils % % Neutrophils # (1.3-7.7) k/uL Lymphocytes # (1.0-4.8) k/uL Monocytes # (0-1.0) k/uL Eosinophils # (0-0.7) k/uL Basophils # (0-0.2) k/uL Hypochromasia Anisocytosis PT (10.0-12.5) sec INR (<1.2) APTT (22.0-30.0) sec Sodium (137-145) mmol/L Potassium (3.5-5.1) mmol/L Chloride (98-107) mmol/L Carbon Dioxide (22-30) mmol/L Anion Gap mmol/L BUN (7-17) mg/dL Creatinine (0.52-1.04) mg/dL Est GFR (CKD-EPI)AfAm (>60 ml/min/1.73 sqM) Est GFR (CKD-EPI)NonAf (>60 ml/min/1.73 sqM) Glucose (74-99) mg/dL Plasma Lactic Acid Sarthak 1.2 (0.7-2.0) mmol/L Calcium (8.4-10.2) mg/dL Magnesium (1.6-2.3) mg/dL Total Bilirubin (0.2-1.3) mg/dL AST (14-36) U/L ALT (4-34) U/L Alkaline Phosphatase (38-126) U/L Troponin I <0.012 (0.000-0.034) ng/mL NT-Pro-B Natriuret Pep pg/mL Total Protein (6.3-8.2) g/dL Albumin (3.5-5.0) g/dL Lipase (23-300) U/L Disposition Clinical Impression: Chest pain Disposition: ADMITTED IP TO THIS [facility] Condition: Stable Is patient prescribed a controlled substance at d/c from ED?: No Referrals: Nonstaff,Physician [Primary Care Provider] - 1-2 days Time of Disposition: 19:56
[2024-05-20 16:08] LABS: Anisocytosis Slight; Basophils % (A) 0 %; Eosinophils # (A) 0.2 k/uL (0-0.7); Eosinophils % (A) 2 %; HCT 39.5 % (34.0-46.0); Hypochromasia Slight; Lymphocytes % (A) 38 %; MCH 28.2 pg (25.0-35.0); MCHC 32.9 g/dL (31.0-37.0); MCV 85.7 fL (80.0-100.0); Mean Platelet Volume 7.6; Monocytes # (A) 0.6 k/uL (0-1.0); Monocytes % (A) 6 %; Neutrophils # (A) 5.4 k/uL (1.3-7.7); Neutrophils % (A) 52 %; Platelet Count 377 k/uL (150-450); RBC 4.61 m/uL (3.80-5.40); RDW 17.1 % (11.5-15.5); WBC 10.5 k/uL (3.8-10.6)
[2024-05-20 16:20] LABS: INR 0.9 (<1.2)
[2024-05-20] MEDS: HYDROmorphone 1 MG/ML 1 ML SYRINGE IVP STA ×4 (16:20→19:57)
--- NOTE | 2024-05-20 16:23 | XR ---
EXAMINATION TYPE: XR chest 1V portable DATE OF EXAM: 05/20/2024 COMPARISON: 06/14/2023 HISTORY: Chest pain TECHNIQUE: Single frontal view of the chest is obtained. FINDINGS: There is been prior CABG surgery. The lungs are clear. No pleural effusion or pneumothorax. Heart and pulmonary vasculature are normal. The osseous structures are intact. IMPRESSION: No acute cardiopulmonary disease.
[2024-05-20 16:38] LABS: ALT 14 U/L (4-34); African American GFR (CKD) >90 (>60 ml/min/1.73 sqM); Albumin 4.1 g/dL (3.5-5.0); Anion Gap 8 mmol/L; Blood Urea Nitrogen 10 mg/dL (7-17); Calcium 9.5 mg/dL (8.4-10.2); Carbon Dioxide 16 mmol/L (22-30); Chloride 113 mmol/L (98-107); Glucose 129 mg/dL (74-99); Lipase 80 U/L (23-300); Non-African American GFR(CKD) >90 (>60 ml/min/1.73 sqM); Sodium 137 mmol/L (137-145); Total Bilirubin 0.9 mg/dL (0.2-1.3); Total Protein 6.8 g/dL (6.3-8.2)
[2024-05-20 16:46] LABS: NT-Pro-B-Type Natriuretic Pept 106 pg/mL
[2024-05-20 16:49] LABS: AST 24 U/L (14-36); Potassium 3.9 mmol/L (3.5-5.1)
[2024-05-20 16:50] LABS: Alkaline Phosphatase 108 U/L (38-126); Magnesium 1.7 mg/dL (1.6-2.3)
[2024-05-20] MEDS: LORazepam 2 MG/ML INJ IV STA (17:33)
--- NOTE | 2024-05-20 18:17 | CT ---
EXAMINATION TYPE: CT angio thor/abd pel aorta CT DLP: 1817.1 mGycm, Automated exposure control for dose reduction was used. DATE OF EXAM: 05/20/2024 5:29 PM COMPARISON: 06/23/2023.. CLINICAL INDICATION: Female, 53 years old with history of CP/Back pain/HTN, chest pain, back pain, HT N TECHNIQUE: Dissection protocol: Multiple axial CT images of the chest, abdomen, and pelvis were obtai caroline prior and to the administration of IV contrast. 3-D reformats and maximum intensity projection fo rmat were performed on a separate workstation. Contrast used:100ml mL of Isovue 370 with IV Contrast, Oral contrast used: FINDINGS: ARTERIAL VASCULATURE: Ascending thoracic aorta and descending thoracic aorta are within normal limits for size. There is no evidence for intramural hematoma within the aorta on noncontrast imaging. Post contrast imaging demonstrates no evidence for dissection. The major vessels of the aortic arch are pa tent. The major vessels of the abdominal aorta are patent. PULMONARY ARTERIAL VASCULATURE: Normal caliber. No evidence of filling defect to suggest pulmonary em bolus. VENOUS SYSTEM: Unremarkable. LUNGS/ PLEURA: Mild centrilobular emphysema changes throughout the lungs. No evidence for focal conso lidation, pneumothorax or pleural effusion. AIRWAY: Patent and unremarkable. HEART: Size within normal limits. Coronary artery atherosclerotic calcifications and/or stent grafts from surgery. MEDIASTINUM: No gross evidence of adenopathy. MUSCULOSKELETAL: No acute osseous abnormalities SOFT TISSUES/LYMPH NODES: Unremarkable. LOWER NECK: No significant findings. Abdomen: LIVER: Unremarkable GALLBLADDER AND BILE DUCTS: Unremarkable. PANCREAS: Unremarkable. SPLEEN: Unremarkable. ADRENAL GLANDS: Unremarkable. KIDNEYS AND URETERS: No evidence of hydronephrosis or renal calculus. The ureters are unremarkable. PELVIS BLADDER: Unremarkable REPRODUCTIVE: Unremarkable. ABDOMEN & PELVIS STOMACH AND BOWEL: No evidence of bowel obstruction. Scattered colonic diverticula. PERITONEUM/RETROPERITONEUM: No evidence of pneumoperitoneum or free fluid. MUSCULOSKELETAL: No acute osseous abnormalities LYMPH NODES: No gross evidence for lymphadenopathy. SOFT TISSUE/ABDOMINAL WALL: Unremarkable IMPRESSION: 1. Moderate atherosclerosis of the arterial vasculature. No evidence for intramural hematoma, dissec tion, aneurysm or occlusion. 2. Postsurgical changes of the coronary arteries with Moderate coronary artery atherosclerosis and/o r stent grafts.
[2024-05-20] MEDS ORDERED: NALOXONE 0.4 MG/ML 1 ML VIAL IV PRN (19:51)
[2024-05-20] MEDS: SODIUM CHLORIDE 0.9% 1,000 ML IV SCH (22:38)
[2024-05-20] MEDS: HYDROmorphone 0.5 MG/0.5 ML SYRINGE IVP PRN (22:48)
--- NOTE | 2024-05-21 10:09 | P.CRDCN ---
History of Present Illness History of present illness: HISTORY OF PRESENT ILLNESS: This is a 53-year-old female with a past medical history significant for coronary artery disease with previous CABG, hypertension, hyperlipidemia, and diabetes. 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 We have been asked to see the patient in consultation for chest pain. Patient examined at the bedside in the ER. Patient states she was nauseated all day yesterday. She threw up a few times. She states she had mild chest pain prior to throwing up but after vomiting the chest pain got alot worse. She states the pain is similiar to previous heart attacks she has had. She is receiving Dilaudid which is helping her pain. Pain is not worse with deep inspiration and chest wall palpation. She reports compliance with her medications at home. Reports normal stress test about 7 months ago with her primary bean weigher. DIAGNOSTICS: - EKG reveals sinus mechanism with mild ST depression inferiorly. - Chest xray negative for acute process. - Laboratory data: WBC 10.5. Hemoglobin 13.0. Platelet count 377. Sodium 137. Potassium 3.9. BUN 10. Creatinine 0.68. Troponin negative x 3. proBNP 106. - Current home cardiac medications include aspirin 81 mg daily, Lipitor 80 mg daily, Plavix 75 mg daily, Farxiga 5 mg daily, Imdur 30 mg daily, metoprolol tartrate 50 mg twice a day, Ranexa 1000 mg twice a day, amlodipine 10 mg daily, lisinopril 10 mg daily - Most recent echocardiogram obtained in March 2023 revealed normal LV systolic function with moderate aortic regurgitation, trace MR, trace TR - Cardiac catheterization history: October 2021 revealing stable coronary artery disease with patent vein graft to the LAD. Total occluded graft to the circumflex but stent in the proximal circumflex is patent. RCA with mild disease. Medical management was recommended. REVIEW OF SYSTEMS: At the time of my exam: CONSTITUTIONAL: Denies fever or chills. HEENT: Denies blurred vision, vision changes, or eye pain. Denies hemoptysis CARDIOVASCULAR: Denies chest pain. Denies orthopnea. Denies PND. Denies palpitations RESPIRATORY: Denies shortness of breath. GASTROINTESTINAL: Denies abdominal pain. Denies nausea or vomiting. HEMATOLOGIC: Denies bleeding disorders. GENITOURINARY: Denies any blood in urine. SKIN: Denies pruitis. Denies rash. PHYSICAL EXAM: VITAL SIGNS: Reviewed. GENERAL: Well-developed in no acute distress. HEENT: Head is normocephalic. Pupils are equal, round. Sclerae anicteric. Mucous membranes of the mouth are moist. Neck supple. No JVD or thyromegaly LUNGS: Respirations even and unlabored. Lungs with expiratory wheezing throughout. HEART: Regular rate and rhythm. S1 and S2 heard. ABDOMEN: Soft. Nondistended. Nontender. EXTREMITIES: Normal range of motion. No clubbing or cyanosis. Peripheral pulses intact. No lower extremity edema NEUROLOGIC: Awake and alert. Oriented x 3. ASSESSMENT: Chest pain may be secondary to vomiting as CP worsening after episodes of vomiting Nausea and vomiting Coronary artery disease with previous two-vessel CABG in 2008, [facility] Patent VG to LAD, totally occluded graft to circumflex with patent proximal circumflex stent, mild RCA disease, per cardiac catheterization in 2021 Hypertension Hyperlipidemia Diabetes Nicotine dependence PLAN: An acute coronary event has been ruled out Obtain 2D echo to assess cardiac structure and function Resume home cardiac medications Smoking cessation recommended GI cocktail x 1 Further recommendations pending patient course Nurse practitioner note has been reviewed by physician. Signing provider agrees with the documented findings, assessment, and plan of care documented by FELT STRIP FINISHER as a scribe. Past Medical History Past Medical History: Asthma, Coronary Artery Disease (CAD), COPD, Diabetes Mellitus, GERD/Reflux, Hypertension, Myocardial Infarction ([place]), Osteoarthritis (OA) Additional Past Medical History / Comment(s): DDD, scoliosis Last Myocardial Infarction Date:: 2011 History of Any Multi-Drug Resistant Organisms: None Reported Past Surgical History: Coronary Bypass/CABG, Heart Catheterization With Stent Additional Past Surgical History / Comment(s): seven stents Past Anesthesia/Blood Transfusion Reactions: No Reported Reaction Date of Last Stent Placement:: 11/2018 Past Psychological History: Anxiety, Bipolar Smoking Status: Current every day smoker Past Alcohol Use History: None Reported Past Drug Use History: Marijuana - Past Family History Mother Family Medical History: Cancer Additional Family Medical History / Comment(s): Ovarian cancer Father Family Medical History: Congestive Heart Failure (CHF) Fmily Family Medical History: No Reported History Medications and Allergies Home Medications Medication Instructions Recorded Confirmed Type Atorvastatin [Lipitor] 80 mg PO DAILY 07/08/20 05/20/24 History Ranolazine [Ranexa] 1,000 mg PO BID 11/13/21 05/20/24 History Albuterol Inhaler [Ventolin Hfa 2 puff INHALATION RT-QID PRN 03/27/23 05/20/24 History Inhaler] Aspirin EC [Ecotrin Low Dose] 81 mg PO DAILY 03/27/23 05/20/24 History Budesonide/Formoterol Fumarate 2 puff INHALATION RT-BID 03/27/23 05/20/24 History [Symbicort 160-4.5 Mcg Inhaler] Clopidogrel [Plavix] 75 mg PO DAILY 03/27/23 05/20/24 History Metoprolol Tartrate [Lopressor] 50 mg PO BID 03/27/23 05/20/24 History Nitroglycerin Sl Tabs [Nitrostat] 0.4 mg SL Q5M PRN 03/27/23 05/20/24 History Omeprazole 40 mg PO BID 03/27/23 05/20/24 History Ondansetron [Zofran] 4 mg PO TID PRN 03/27/23 05/20/24 History Pregabalin [Lyrica] 150 mg PO TID 03/27/23 05/20/24 History amLODIPine [Norvasc] 10 mg PO DAILY 03/27/23 05/20/24 History metFORMIN HCL 1,000 mg PO BID 03/27/23 05/20/24 History rOPINIRole HCL [Requip] 1 mg PO HS 03/27/23 05/20/24 History ALPRAZolam [Xanax] 0.5 mg PO BID PRN 06/22/23 05/20/24 History lisinopriL [Zestril] 10 mg PO DAILY #30 tab 06/23/23 05/20/24 Rx Dapagliflozin Propanediol [Farxiga] 5 mg PO DAILY 03/16/24 05/20/24 History Dulaglutide [Trulicity] 3 mg SQ WE 03/16/24 05/20/24 History HYDROcodone/APAP 5-325MG [[place] 1 tab PO BID PRN 03/16/24 05/20/24 History 5-325] Insulin Lispro [humaLOG Kwikpen] See Protocol SQ AC-TID 03/16/24 05/20/24 History Ipratropium-Albuterol Nebulize 3 ml INHALATION RT-TID 03/16/24 05/20/24 History [Duoneb 0.5 mg-3 mg/3 ml Soln] Isosorbide Mononitrate ER [Imdur] 30 mg PO DAILY 03/16/24 05/20/24 History Spiriva Respimat 1.25mcg/Acutation 2 puff INHALATION RT-DAILY 03/16/24 05/20/24 History Mist Allergies Allergy/AdvReac Type Severity Reaction Status Date / Time No Known Allergies Allergy Verified 05/20/24 16:39 Physical Exam Vitals: Vital Signs Temp Pulse Pulse Resp BP Pulse Ox 05/21/24 07:51 98.6 F 85 20 129/78 98 05/21/24 06:01 57 L 16 116/61 96 05/21/24 02:31 81 18 124/86 96 05/20/24 22:34 91 20 130/72 98 05/20/24 19:02 76 18 118/79 95 05/20/24 18:03 96 20 146/97 96 05/20/24 17:51 94 24 136/96 95 05/20/24 17:30 113 H 34 H 151/116 96 05/20/24 16:41 79 20 142/89 97 05/20/24 16:05 28 H 05/20/24 15:57 105 H 30 H 161/131 94 L 05/20/24 15:47 108 H 05/20/24 15:42 97.1 F L 102 H 26 H 148/112 93 L Intake and Output 05/20/24 05/21/24 05/21/24 22:59 06:59 14:59 Other: Weight 90.718 kg Results 05/20/24 15:52 05/20/24 15:52 Cardiac Enzymes 05/20/24 05/20/24 05/20/24 Range/Units 15:52 15:52 20:52 AST 24 (14-36) U/L Troponin I <0.012 <0.012 (0.000-0.034) ng/mL 05/21/24 Range/Units 00:41 AST (14-36) U/L Troponin I 0.014 (0.000-0.034) ng/mL Coagulation 05/20/24 Range/Units 15:52 PT 10.0 (10.0-12.5) sec APTT 23.0 (22.0-30.0) sec CBC 05/20/24 Range/Units 15:52 WBC 10.5 (3.8-10.6) k/uL RBC 4.61 (3.80-5.40) m/uL Hgb 13.0 (11.4-16.0) gm/dL Hct 39.5 (34.0-46.0) % Plt Count 377 (150-450) k/uL Comprehensive Metabolic Panel 05/20/24 Range/Units 15:52 Sodium 137 (137-145) mmol/L Potassium 3.9 (3.5-5.1) mmol/L Chloride 113 H (98-107) mmol/L Carbon Dioxide 16 L (22-30) mmol/L BUN 10 (7-17) mg/dL Creatinine 0.68 (0.52-1.04) mg/dL Glucose 129 H (74-99) mg/dL Calcium 9.5 (8.4-10.2) mg/dL AST 24 (14-36) U/L ALT 14 (4-34) U/L Alkaline Phosphatase 108 (38-126) U/L Total Protein 6.8 (6.3-8.2) g/dL Albumin 4.1 (3.5-5.0) g/dL Current Medications Generic Name Dose Route Start Last Admin Trade Name Freq PRN Reason Stop Dose Admin Hydromorphone HCl 0.5 mg 05/20/24 19:51 05/21/24 06:31 Hydromorphone 0.5 Mg/0.5 Ml Syringe IVP 0.5 mg Q3HR PRN Administration Moderate Pain (Scale 4 to 6) Sodium Chloride 1,000 mls @ 75 mls/hr 05/20/24 20:00 05/20/24 22:38 Saline 0.9% IV 75 mls/hr .[id number] AMANDA Administration Naloxone HCl 0.2 mg 05/20/24 19:51 Naloxone 0.4 Mg/Ml 1 Ml Vial IV Q2M PRN Opioid Reversal Ondansetron HCl 4 mg 05/20/24 19:51 Ondansetron 4 Mg/2 Ml Vial IVP Q8HR PRN Nausea And Vomiting Intake and Output 05/20/24 05/21/24 05/21/24 22:59 06:59 14:59 Other: Weight 90.718 kg 05/20/24 15:52 05/20/24 15:52
[2024-05-21] MEDS: ISOSORBIDE MONONITRATE ER 30 MG TAB.ER.24H PO SCH (10:18)
[2024-05-21] MEDS: ATORVASTATIN 80 MG TAB PO SCH (10:18)
[2024-05-21] MEDS: lisinopriL 10 MG TAB PO SCH (10:18)
[2024-05-21] MEDS: ASPIRIN 81 MG PO SCH (10:18)
[2024-05-21] MEDS: RANOLAZINE 500 MG TAB.ER.12H PO SCH (10:18)
[2024-05-21] MEDS: CLOPIDOGREL 75 MG TAB PO SCH (10:18)
[2024-05-21] MEDS: amLODIPine 10 MG TAB PO SCH (10:19)
[2024-05-21] MEDS: DAPAGLIFLOZIN PROPANEDIOL 5 MG TABLET PO SCH (10:19)
[2024-05-21] MEDS: MAG HYDROX/AL HYDROX/SIMETH 30 ML, HYOSCYAMINE ELIXIR 10 ML, LIDOCAINE VISCOUS 2% 10 ML PO ONE (10:26)
[2024-05-21] MEDS ORDERED: ALBUTEROL HFA INHALER INHALATION PRN (15:21)
[2024-05-21] MEDS ORDERED: guaiFENesin SYRUP 100MG/5ML 200 MG/10 ML CUP PO PRN (15:23)
[2024-05-21] MEDS ORDERED: DEXTROSE 50% SYRINGE 50 ML IVP PRN ×2 (15:25)
--- NOTE | 2024-05-21 15:25 | P.HPIM ---
History of Present Illness H&P Date: 05/21/24 This is a pleasant 53-year-old female with medical history significant for oxygen dependent COPD, coronary artery disease with prior CABG and cardiac stenting,, diabetes mellitus, Acid reflux, hypertension, patient is a current smoker about 1/2 pack/day. She comes into the hospital complaining of si gnificant left-sided chest discomfort with radiation into the neck and shoulder. She also reports feeling short of breath and having episodes of nausea and diaphoresis she states that she felt the same with her prior heart attacks. Not having any fever or chills she is not having numbness or tingling in her extremities she is not having any dizziness or lightheadedness or palpitations. Her EKG reveals sinus rhythm with no specific ST or T wave changes heart rate of 96 normal sinus rhythm. Chest X-ray reveals no acute cardiopulmonary process. Thoracic aorta CT reveals moderate atherosclerosis of the arterial vasculature, no evidence of intramural hematoma, dissection, aneurysm, or occlusion. There are postsurgical changes of the coronary arteries with moderate coronary artery atherosclerosis and or stent grafts. Blood work is essentially unremarkable, troponin level is negative x 3, proBNP is 106. REVIEW OF SYSTEMS: CONSTITUTIONAL: No fever, no malaise, no fatigue. HEENT: No recent visual problems or hearing problems. Denied any sore throat. CARDIOVASCULAR: Reports chest pain, orthopnea, PND, no palpitations, no syncope. PULMONARY: Reports shortness of breath, no cough, no hemoptysis. GASTROINTESTINAL: No diarrhea, no nausea, no vomiting, no abdominal pain. NEUROLOGICAL: No headaches, no weakness, no numbness. HEMATOLOGICAL: Denies any bleeding or petechiae. GENITOURINARY: Denies any burning micturition, frequency, or urgency. MUSCULOSKELETAL/RHEUMATOLOGICAL: Denies any joint pain, swelling, or any muscle pain. ENDOCRINE: Denies any polyuria or polydipsia. The rest of the 14-point review of systems is negative. PHYSICAL EXAMINATION: GENERAL: The patient is alert and oriented x3, not in any acute distress. Well developed, well nourished. Elderly appearing, on 2 L of oxygen. HEENT: Pupils are round and equally reacting to light. EOMI. No scleral icterus. No conjunctival pallor. Normocephalic, atraumatic. No pharyngeal erythema. No thyromegaly. CARDIOVASCULAR: S1 and S2 present. No murmurs, rubs, or gallops. PULMONARY: Chest is clear to auscultation, no wheezing or crackles. ABDOMEN: Soft, nontender, nondistended, normoactive bowel sounds. No palpable organomegaly. MUSCULOSKELETAL: No joint swelling or deformity. EXTREMITIES: No cyanosis, clubbing, or pedal edema. NEUROLOGICAL: Gross neurological examination did not reveal any focal deficits. SKIN: No rashes. Assessment Chest pain, ACS rule out, chest pain may have been exacerbated by vomiting Nausea and vomiting as well as episode of diaphoresis need to rule out cardiac causes this also could be gastritis Coronary artery disease with prior cardiac stenting and percutaneous in tervention Patent VG to LAD, totally occluded graft to circumflex with patent proximal circumflex stent, mild RCA disease, per cardiac catheterization in 2021 Hypertension Hyperlipidemia Diabetes mellitus type II Nicotine use and oxygen dependent COPD Anxiety/bipolar Prophylaxis DVT prophylaxis Full code Plan Echocardiogram ordered and pending Continue IV fluids Resume appropriate cardiac medications Continue pain management Continue on aspirin Plavix The impression and plan of care has been dictated by Violetta Maya Nurse Practitioner as directed. Dr. Lito MD I have performed a history and physical examination and medical decision making of this patient, discussed the same with the dictator, and agree with the dictators assessment and plan as written, documented as a scribe. Based on total visit time, I have performed more than 50% of this visit. Past Medical History Past Medical History: Asthma, Coronary Artery Disease (CAD), COPD, Diabetes Mellitus, GERD/Reflux, Hypertension, Myocardial Infarction ([place]), Osteoarthritis (OA) Additional Past Medical History / Comment(s): DDD, scoliosis Last Myocardial Infarction Date:: 2011 History of Any Multi-Drug Resistant Organisms: None Reported Past Surgical History: Coronary Bypass/CABG, Heart Catheterization With Stent Additional Past Surgical History / Comment(s): seven stents Past Anesthesia/Blood Transfusion Reactions: No Reported Reaction Date of Last Stent Placement:: 11/2018 Past Psychological History: Anxiety, Bipolar Smoking Status: Current every day smoker Past Alcohol Use History: None Reported Past Drug Use History: Marijuana - Past Family History Mother Family Medical History: Cancer Additional Family Medical History / Comment(s): Ovarian cancer Father Family Medical History: Congestive Heart Failure (CHF) Fmily Family Medical History: No Reported History Medications and Allergies Home Medications Medication Instructions Recorded Confirmed Type Atorvastatin [Lipitor] 80 mg PO DAILY 07/08/20 05/20/24 History Ranolazine [Ranexa] 1,000 mg PO BID 11/13/21 05/20/24 History Albuterol Inhaler [Ventolin Hfa 2 puff INHALATION RT-QID PRN 03/27/23 05/20/24 History Inhaler] Aspirin EC [Ecotrin Low Dose] 81 mg PO DAILY 03/27/23 05/20/24 History Budesonide/Formoterol Fumarate 2 puff INHALATION RT-BID 03/27/23 05/20/24 History [Symbicort 160-4.5 Mcg Inhaler] Clopidogrel [Plavix] 75 mg PO DAILY 03/27/23 05/20/24 History Metoprolol Tartrate [Lopressor] 50 mg PO BID 03/27/23 05/20/24 History Nitroglycerin Sl Tabs [Nitrostat] 0.4 mg SL Q5M PRN 03/27/23 05/20/24 History Omeprazole 40 mg PO BID 03/27/23 05/20/24 History Ondansetron [Zofran] 4 mg PO TID PRN 03/27/23 05/20/24 History Pregabalin [Lyrica] 150 mg PO TID 03/27/23 05/20/24 History amLODIPine [Norvasc] 10 mg PO DAILY 03/27/23 05/20/24 History metFORMIN HCL 1,000 mg PO BID 03/27/23 05/20/24 History rOPINIRole HCL [Requip] 1 mg PO HS 03/27/23 05/20/24 History ALPRAZolam [Xanax] 0.5 mg PO BID PRN 06/22/23 05/20/24 History lisinopriL [Zestril] 10 mg PO DAILY #30 tab 06/23/23 05/20/24 Rx Dapagliflozin Propanediol [Farxiga] 5 mg PO DAILY 03/16/24 05/20/24 History Dulaglutide [Trulicity] 3 mg SQ WE 03/16/24 05/20/24 History HYDROcodone/APAP 5-325MG [[place] 1 tab PO BID PRN 03/16/24 05/20/24 History 5-325] Insulin Lispro [humaLOG Kwikpen] See Protocol SQ AC-TID 03/16/24 05/20/24 Histo ry Ipratropium-Albuterol Nebulize 3 ml INHALATION RT-TID 03/16/24 05/20/24 History [Duoneb 0.5 mg-3 mg/3 ml Soln] Isosorbide Mononitrate ER [Imdur] 30 mg PO DAILY 03/16/24 05/20/24 History Spiriva Respimat 1.25mcg/Acut[place] 2 puff INHALATION RT-DAILY 03/16/24 05/20/24 History Mist Allergies Allergy/AdvReac Type Severity Reaction Status Date / Time No Known Allergies Allergy Verified 05/20/24 16:39 Physical Exam Vitals: Vital Signs Temp Pulse Pulse Resp BP Pulse Ox 05/21/24 14:34 86 16 118/68 98 05/21/24 14:00 82 16 119/70 98 05/21/24 12:00 68 16 136/68 94 L 05/21/24 10:21 70 20 130/60 98 05/21/24 10:00 78 16 123/40 98 05/21/24 07:51 98.6 F 85 20 129/78 98 05/21/24 06:01 57 L 16 116/61 96 05/21/24 02:31 81 18 124/86 96 05/20/24 22:34 91 20 130/72 98 05/20/24 19:02 76 18 118/79 95 05/20/24 18:03 96 20 146/97 96 05/20/24 17:51 94 24 136/96 95 05/20/24 17:30 113 H 34 H 151/116 96 05/20/24 16:41 79 20 142/89 97 05/20/24 16:05 28 H 05/20/24 15:57 105 H 30 H 161/131 94 L 05/20/24 15:47 108 H 05/20/24 15:42 97.1 F L 102 H 26 H 148/112 93 L Results CBC & Chem 7: 05/20/24 15:52 05/20/24 15:52 Labs: Abnormal Lab Results - Last 24 Hours (Table) 05/20/24 05/20/24 Range/Units 15:52 15:52 RDW 17.1 H (11.5-15.5) % Chloride 113 H (98-107) mmol/L Carbon Dioxide 16 L (22-30) mmol/L Glucose 129 H (74-99) mg/dL Assessment and Plan Time with Patient: Greater than 30
[2024-05-21] MEDS: PREGABALIN 75 MG CAP PO SCH (16:05)
[2024-05-21] MEDS: INSULIN ASPART (NovoLOG) 100 UNIT/ML VIAL SQ SCH (16:16)
[2024-05-21 16:19] LABS: Glucose,Whole Blood 105 mg/dL (70-110)
[2024-05-21] MEDS: ONDANSETRON 4 MG/2 ML VIAL IVP PRN (18:52)
[2024-05-21] MEDS: SYMBICORT 160-4.5 MCG INHALER INHALATION SCH (19:58)
[2024-05-21] MEDS: IPRATROPIUM-ALBUTEROL 3 ML NEB INHALATION SCH (19:58)
[2024-05-21 20:22] LABS: Glucose,Whole Blood 112 mg/dL (70-110)
[2024-05-21] MEDS: METOPROLOL TARTRATE 50 MG TAB PO SCH (20:25)
[2024-05-21] MEDS: PANTOPRAZOLE 40 MG TABLET PO SCH (21:09)
[2024-05-22] MEDS: ALPRAZolam 0.5 MG TAB PO PRN (01:58)
[2024-05-22 05:17] LABS: Glucose,Whole Blood 113 mg/dL (70-110)
[2024-05-22] MEDS: TIOTROPIUM 2.5 MCG INHALER INHALATION SCH (08:11)
[2024-05-22] MEDS: HYDROcodone/APAP 5-325MG 1 EACH TAB PO PRN (11:24)
--- NOTE | 2024-05-22 12:01 | CA ---
Transthoracic Echo Report Name: Griselda Mcadams Age: 53 Gender: F : 1970 Exam Date: 05/22/2024 10:25 Exam Location: [facility] Ht (in): 65 Wt (lb): 200 Ordering Physician: Rupa García Attending/Referring Phys: [id number], Ricky Insole Rounder Antonia Pizarro, KEM Procedure CPT: Indications: CP, hx CABG, LV function Cardiac Hx: Technical Quality: Fair Contrast 1: Total Dose (mL): Contrast 2: Total Dose (mL): MEASUREMENTS (Male / Female) Normal Values 2D ECHO LV Diastolic Diameter PLAX 4.6 cm 4.2 - 5.9 / 3.9 - 5.3 cm LV Systolic Diameter PLAX 3.2 cm IVS Diastolic Thickness 1.5 cm 0.6 - 1.0 / 0.6 - 0.9 cm LVPW Diastolic Thickness 1.2 cm 0.6 - 1.0 / 0.6 - 0.9 cm LV Relative Wall Thickness 0.6 RV Internal Dim ED PLAX 2.3 cm LVOT Diameter 1.8 cm LA Systolic Diameter LX 3.9 cm 3.0 - 4.0 / 2.7 - 3.8 cm LV Diastolic Volume MOD BP 60.6 cm??? 67 - 155 / 56 - 104 cm??? LV Systolic Volume MOD BP 21.8 cm??? 22 - 58 / 19 - 49 cm??? LV Ejection Fraction MOD BP 64.0 % >= 55 % LV Cardiac Index MOD BP 1494.6 cm???/min???m??? LV Diastolic Volume MOD 4C 70.7 cm??? LV Systolic Volume MOD 4C 22.9 cm??? LV Ejection Fraction MOD 4C 67.6 % LV Cardiac Index MOD 4C 1842.4 cm???/min???m??? LV Diastolic Length 4C 8.0 cm LV Systolic Length 4C 6.2 cm LV Diastolic Volume MOD 2C 46.1 cm??? LV Systolic Volume MOD 2C 20.5 cm??? LV Ejection Fraction MOD 2C 55.4 % LV Cardiac Index MOD 2C 985.3 cm???/min???m??? LV Diastolic Length 2C 7.1 cm LV Systolic Length 2C 6.1 cm LA Volume 57.2 cm??? 18 - 58 / 22 - 52 cm??? LA Volume Index 27.6 cm???/m??? 16 - 28 cm???/m??? M-MODE Aortic Root Diameter MM 3.1 cm LA Systolic Diameter MM 2.9 cm LA Ao Ratio MM 0.9 AV Cusp Separation MM 1.9 cm DOPPLER AV Peak Velocity 189.3 cm/s AV Peak Gradient 14.3 mmHg AV Mean Velocity 127.9 cm/s AV Mean Gradient 7.4 mmHg AV Velocity Time Integral 39.5 cm AI Peak Velocity 347.1 cm/s AI Peak Gradient 48.2 mmHg AI Pressure Half Time 569.9 ms MV Area PHT 2.3 cm??? Mitral E Point Velocity 101.8 cm/s Mitral A Point Velocity 73.4 cm/s Mitral E to A Ratio 1.4 MV Deceleration Time 325.6 ms TR Peak Velocity 250.3 cm/s TR Peak Gradient 25.1 mmHg Right Ventricular Systolic Press 29.2 mmHg FINDINGS Left Ventricle Left ventricular ejection fraction is estimated at 55-60 %. Moderately increased septal wall thickness. Mildly increased posterior wall thickness. No obvious regional wall motion abnormalities. Left ventricular cavity size normal. Right Ventricle Normal right ventricular size and function. Right ventricular systolic pressure within normal limits. Right Atrium Mild right atrial dilatation. Left Atrium Mildly increased left atrial diameter. Mildly increased left atrial volume. Mitral Valve Structurally normal mitral valve. Mild mitral regurgitation. No mitral stenosis. Aortic Valve Trileaflet aortic valve. Diffuse thickening (sclerosis) of the aortic valve cusps without reduced excursion. Mild aortic regurgitation. Tricuspid Valve Structurally normal tricuspid valve. Mild tricuspid regurgitation. No tricuspid stenosis. Pulmonic Valve Structurally normal pulmonic valve. Trace pulmonic regurgitation. No pulmonic stenosis. Pericardium No pericardial or pleural effusion. Aorta Normal size aortic root and proximal ascending aorta. CONCLUSIONS Left ventricular ejection fraction 55-60% Moderately increased left ventricular wall thickness RVSP 29 Mild mitral regurgitation Mild aortic regurgitation Mild tricuspid regurgitation Previewed by: Dr. Genaro Guerra DO (Electronically Signed) Final Date: 22 May 2024 12:00
[2024-05-22 12:03] LABS: Glucose,Whole Blood 103 mg/dL (70-110)
--- NOTE | 2024-05-22 12:29 | P.PN ---
Subjective HISTORY OF PRESENT ILLNESS: This is a 53-year-old female with a past medical history significant for coronary artery disease with previous CABG, hypertension, hyperlipidemia, and diabetes. Patient follows with a straight knife machine cutter in [place]. We have been asked to see the patient in consultation for chest pain. Patient examined at the bedside in the ER. Patient states she was nauseated all day yesterday. She threw up a few times. She states she had mild chest pain prior to throwing up but after vomiting the chest pain got alot worse. She states the pain is similiar to previous heart attacks she has had. She is receiving Dilaudid which is helping her pain. Pain is not worse with deep inspiration and chest wall palpation. She reports compliance with her medications at home. Reports normal stress test about 7 months ago with her primary straight knife machine cutter. DIAGNOSTICS: - EKG reveals sinus mechanism with mild ST depression inferiorly. - Chest xray negative for acute process. - Laboratory data: WBC 10.5. Hemoglobin 13.0. Platelet count 377. Sodium 137. Potassium 3.9. BUN 10. Creatinine 0.68. Troponin negative x 3. proBNP 106. - Current home cardiac medications include aspirin 81 mg daily, Lipitor 80 mg daily, Plavix 75 mg daily, Farxiga 5 mg daily, Imdur 30 mg daily, metoprolol tartrate 50 mg twice a day, Ranexa 1000 mg twice a day, amlodipine 10 mg daily, lisinopril 10 mg daily - Most recent echocardiogram obtained in March 2023 revealed normal LV systolic function with moderate aortic regurgitation, trace MR, trace TR - Cardiac catheterization history: October 2021 revealing stable coronary artery disease with patent vein graft to the LAD. Total occluded graft to the circumflex but stent in the proximal circumflex is patent. RCA with mild disease. Medical management was recommended. 05/22/2024 Patient examined this morning at the bedside. Patient continues to report chest discomfort. She states the pain is in the left upper portion of her chest. She states the pain feels about the same as it did yesterday. She does report relief of her chest pain with Dilaudid. Additional troponin obtained this morning is negative. EKG obtained this morning with no acute ischemic changes. Echocardiogram completed revealing ejection fraction 55 to 60%, mild aortic regurgitation. PHYSICAL EXAM: VITAL SIGNS: Reviewed. GENERAL: Well-developed in no acute distress. HEENT: Head is normocephalic. Pupils are equal, round. Sclerae anicteric. Mucous membranes of the mouth are moist. Neck supple. No JVD or thyromegaly LUNGS: Respirations even and unlabored. Lungs with expiratory wheezing throughout. HEART: Regular rate and rhythm. S1 and S2 heard. ABDOMEN: Soft. Nondistended. Nontender. EXTREMITIES: Normal range of motion. No clubbing or cyanosis. Peripheral pulses intact. No lower extremity edema NEUROLOGIC: Awake and alert. Oriented x 3. ASSESSMENT: Chest pain may be secondary to vomiting as CP worsening after episodes of vomiting Nausea and vomiting Coronary artery disease with previous two-vessel CABG in 2008, [facility] [place] [facility] VG to LAD, totally occluded graft to circumflex with patent proximal circumflex stent, mild RCA disease, per cardiac catheterization in 2021 Hypertension Hyperlipidemia Diabetes Nicotine dependence PLAN: Continue current cardiac medications Patient may be discharged home today from a cardiac standpoint She is to follow-up postdischarge with her primary straight knife machine cutter in [place] Nurse practitioner note has been reviewed by physician. Signing provider agrees with the documented findings, assessment, and plan of care documented by MANAGEMENT SUPERVISOR as a scribe. Objective - Vital Signs Vital signs: Vital Signs Temp 98.4 F 05/22/24 07:00 Pulse 78 05/22/24 12:06 Resp 16 05/22/24 08:00 BP 93/60 05/22/24 07:00 Pulse Ox 96 05/22/24 08:13 FiO2 Intake & Output 05/21/24 05/22/24 05/22/24 18:59 06:59 18:59 Weight 90.718 kg - Labs CBC & Chem 7: 05/20/24 15:52 05/20/24 15:52 Labs: Abnormal Lab Results - Last 24 Hours (Table) 05/21/24 05/22/24 05/22/24 Range/Units 20:20 04:02 05:16 POC Glucose (mg/dL) 112 H 113 H (70-110) mg/dL Hemoglobin A1c 6.6 H (<=6.0) %
[2024-05-22] MEDS ORDERED: ALBUTEROL NEBULIZED 2.5 MG/3 ML INHALATION PRN (12:41)
[2024-05-22] MEDS: diphenhydrAMINE 50 MG/ML 1 ML VIAL IVP STA (13:00)
[2024-05-22] MEDS: methylPREDNISolone SOD SUCCI 125 MG/2 ML VIAL IV STA (13:53)
[2024-05-22 14:51] VITALS: BP 98/58; PULSE 74; RESP 17; TEMP 98.6
[2024-05-22] MEDS: MAG HYDROX/AL HYDROX/SIMETH 30 ML CUP PO SCH (14:55)
[2024-05-23] MEDS ORDERED: PANTOPRAZOLE 40 MG/10 ML VIAL IVP SCH (09:00)
--- NOTE | 2024-05-24 09:24 | P.DS ---
Providers Date of admission: 05/20/24 19:53 Attending physician: Hiro Velez Consults: 05/20/24 19:51 Consult Physician Routine Consulting Provider: Genaro Guerra Consult Reason/Comments: Chest pain Do you want consulting provider notified?: Yes Primary care physician: Physician Nonstaff Hospital Course: Final Diagnosis Chest pain may be secondary to vomiting as CP worsening after episodes of vomi ting Nausea and vomiting Coronary artery disease with previous two-vessel CABG in 2008, [facility] [place] [facility] VG to LAD, totally occluded graft to circumflex with patent proximal circumflex stent, mild RCA disease, per cardiac catheterization in 2021 Hypertension Hyperlipidemia Diabetes Nicotine dependence Discharge Disposition Patient instructed to discharge with oral steroid taper. Also to continue on her spiriva. patient was given GI cocktail with maalox. Recommended to hold her lisinopril as BP has been running on the lower side and follow up with her main head of product out of [place]. Hospital Course This is a pleasant 53-year-old female with medical history significant for oxygen dependent COPD, coronary artery disease with prior CABG and cardiac stenting,, diabetes mellitus, Acid reflux, hypertension, patient is a current smoker about 1/2 pack/day. She comes into the hospital complaining of significant left-sided chest discomfort with radiation into the neck and shoulder. She also reports feeling short of breath and having episodes of nausea and diaphoresis she states that she felt the same with her prior heart attacks. Not having any fever or chills she is not having numbness or tingling in her extremities she is not having any dizziness or lightheadedness or palpitations. Her EKG reveals sinus rhythm with no specific ST or T wave changes heart rate of 96 normal sinus rhythm. Chest X-ray reveals no acute cardiopulmonary process. Thoracic aorta CT reveals moderate atherosclerosis of the arterial vasculature, no evidence of intramural hematoma, dissection, a neurysm, or occlusion. There are postsurgical changes of the coronary arteries with moderate coronary artery atherosclerosis and or stent grafts. Blood work is essentially unremarkable, troponin level is negative x 3, proBNP is 106. Admitted for cardiac evaluation. Echocardiogram completed revealing ejection fraction 55 to 60%, mild aortic regurgitation. The chest discomfort and nausea got better after a dose of IV steroids and also a GI cocktail with Maalox. She is to follow-up postdischarge with her primary head of product in [place]. Patient was cleared for discharge. Please see medication reconciliation for a list of current medications. Thank you for allowing us to participate in the care of this patient. The impression and plan of care has been dictated by Nurse Debra Briceno as directed. Dr. Lito MD I have performed a history and physical examination and medical decision making of this patient, discussed the same with the dictator, and agree with the dict ators assessment and plan as written, documented as a scribe. Based on total visit time, I have performed more than 50% of this visit. Patient Condition at Discharge: Stable Plan - Discharge Summary New Discharge Prescriptions: New Mag Hydrox/Al Hydrox/Simeth [Maalox] 30 ml PO QID PRN 2 Days #180 ml PRN Reason: Heartburn Continue Atorvastatin [Lipitor] 80 mg PO DAILY Ranolazine [Ranexa] 1,000 mg PO BID metFORMIN HCL 1,000 mg PO BID Nitroglycerin Sl Tabs [Nitrostat] 0.4 mg SL Q5M PRN PRN Reason: Chest Pain Aspirin EC [Ecotrin Low Dose] 81 mg PO DAILY Albuterol Inhaler [Ventolin Hfa Inhaler] 2 puff INHALATION RT-QID PRN PRN Reason: Shortness Of Breath Isosorbide Mononitrate ER [Imdur] 30 mg PO DAILY Insulin Lispro [humaLOG Kwikpen] See Protocol SQ AC-TID Dapagliflozin Propanediol [Farxiga] 5 mg PO DAILY Dulaglutide [Trulicity] 3 mg SQ WE Ipratropium-Albuterol Nebulize [Duoneb 0.5 mg-3 mg/3 ml Soln] 3 ml INHALATION RT-TID rOPINIRole HCL [Requip] 1 mg PO HS Metoprolol Tartrate [Lopressor] 50 mg PO BID amLODIPine [Norvasc] 10 mg PO DAILY Omeprazole 40 mg PO BID Budesonide/Formoterol Fumarate [Symbicort 160-4.5 Mcg Inhaler] 2 puff INHALATION RT-BID Ondansetron [Zofran] 4 mg PO TID PRN PRN Reason: Nausea Pregabalin [Lyrica] 150 mg PO TID Clopidogrel [Plavix] 75 mg PO DAILY ALPRAZolam [Xanax] 0.5 mg PO BID PRN PRN Reason: Anxiety HYDROcodone/APAP 5-325MG [[place] 5-325] 1 tab PO BID PRN PRN Reason: Pain Discontinued lisinopriL [Zestril] 10 mg PO DAILY #30 tab No Action methylPREDNISolone Dose Pack [Medrol Dose Pack] See Taper PO DIRECTED Spiriva Respimat 1.25mcg/Actuation Mist 2 puff INHALATION RT-DAILY Discharge Medication List Atorvastatin [Lipitor] 80 mg PO DAILY 07/08/20 [History] Ranolazine [Ranexa] 1,000 mg PO BID 11/13/21 [History] Albuterol Inhaler [Ventolin Hfa Inhaler] 2 puff INHALATION RT-QID PRN 03/27/23 [History] Aspirin EC [Ecotrin Low Dose] 81 mg PO DAILY 03/27/23 [History] Budesonide/Formoterol Fumarate [Symbicort 160-4.5 Mcg Inhaler] 2 puff INHALATION RT-BID 03/27/23 [History] Clopidogrel [Plavix] 75 mg PO DAILY 03/27/23 [History] Metoprolol Tartrate [Lopressor] 50 mg PO BID 03/27/23 [History] Nitroglycerin Sl Tabs [Nitrostat] 0.4 mg SL Q5M PRN 03/27/23 [History] Omeprazole 40 mg PO BID 03/27/23 [History] Ondansetron [Zofran] 4 mg PO TID PRN 03/27/23 [History] Pregabalin [Lyrica] 150 mg PO TID 03/27/23 [History] amLODIPine [Norvasc] 10 mg PO DAILY 03/27/23 [History] metFORMIN HCL 1,000 mg PO BID 03/27/23 [History] rOPINIRole HCL [Requip] 1 mg PO HS 03/27/23 [History] ALPRAZolam [Xanax] 0.5 mg PO BID PRN 06/22/23 [History] Dapagliflozin Propanediol [Farxiga] 5 mg PO DAILY 03/16/24 [History] Dulaglutide [Trulicity] 3 mg SQ WE 03/16/24 [History] HYDROcodone/APAP 5-325MG [[place] 5-325] 1 tab PO BID PRN 03/16/24 [History] Insulin Lispro [humaLOG Kwikpen] See Protocol SQ AC-TID 03/16/24 [History] Ipratropium-Albuterol Nebulize [Duoneb 0.5 mg-3 mg/3 ml Soln] 3 ml INHALATION RT-TID 03/16/24 [History] Isosorbide Mononitrate ER [Imdur] 30 mg PO DAILY 03/16/24 [History] Mag Hydrox/Al Hydrox/Simeth [Maalox] 30 ml PO QID PRN 2 Days #180 ml 05/22/24 [Rx] Spiriva Respimat 1.25mcg/Actuation Mist 2 puff INHALATION RT-DAILY 05/24/24 [History] methylPREDNISolone Dose Pack [Medrol Dose Pack] See Taper PO DIRECTED 05/24/24 [History] Follow up Appointment(s)/Referral(s): Nonstaff,Physician [Primary Care Provider] - 1-2 days Activity/Diet/Wound Care/Special Instructions: Follow up with your head of product out of [place] Follow up with your Family provider Continue oral prednisone taper Stop lisinopril Discharge Disposition: HOME SELF-CARE
== END 2024-05-22 15:58 | disposition home or self-care (01) ==
LOC: EC 15:39 → 6NMEDSUR 19:53
PROVIDERS: ADMIT Hospitalist; ATTEND Hospitalist
DX: R07.89 Other chest pain (principal); I25.82 Chronic total occlusion of coronary artery; J44.9 Chronic obstructive pulmonary disease, unspecified; I08.3 Combined rheumatic disorders of mitral, aortic and tricuspid valves; I10 Essential (primary) hypertension; R11.2 Nausea with vomiting, unspecified; R61 Generalized hyperhidrosis; M54.9 Dorsalgia, unspecified; M54.2 Cervicalgia; M25.519 Pain in unspecified shoulder; E78.5 Hyperlipidemia, unspecified; E11.9 Type 2 diabetes mellitus without complications; K21.9 Gastro-esophageal reflux disease without esophagitis; I25.2 Old myocardial infarction; F41.9 Anxiety disorder, unspecified; F31.9 Bipolar disorder, unspecified; F17.210 Nicotine dependence, cigarettes, uncomplicated; Z99.81 Dependence on supplemental oxygen; Z79.82 Long term (current) use of aspirin; Z79.51 Long term (current) use of inhaled steroids; Z79.02 Long term (current) use of antithrombotics/antiplatelets; Z79.84 Long term (current) use of oral hypoglycemic drugs; Z79.85 Long-term (current) use of injectable non-insulin antidiabetic drugs; Z79.4 Long term (current) use of insulin; Z79.899 Other long term (current) drug therapy; Z95.1 Presence of aortocoronary bypass graft; Z95.5 Presence of coronary angioplasty implant and graft
CPT/HCPCS: 36415; 71045; 71275; 74174; 80053; 83036; 83605; 83690; 83735; 83880; 84484; 85025; 85610; 85730; 86850; 86900; 86901; 93005; 93306; 94640; 94760; 96361; 96374; 96375; 96376; 99285

== ENCOUNTER 2024-05-24 04:14 | Observation (INO) | payer OTHER ==
--- NOTE | 2024-05-24 05:22 | ED ---
Chest Pain HPI - General Chief Complaint: Chest Pain Stated Complaint: Chest Pain Time Seen by Provider: 05/24/24 04:25 Source: patient, EMS Mode of arrival: EMS Limitations: no limitations - History of Present Illness Initial Comments: This patient is a 53-year-old woman who arrives here as a transfer from [facility]. The patient had gone there at approximately 10:30 PM to have evaluation of chest pain with left upper extremity pain. That had started approximately 1 hour before she went to the hospital. She states it was similar to pain she has previously had an association with coronary artery disease. The patient has history of CABG in 2006 at [facility]. She states she also has had multiple stents placed. The patient does continue to smoke half pack of cigarettes per day. She states she does have some chronically occluded vessels. She had been seen here for similar pain last week and was reportedly discharged 2 days ago. Patient denies associated symptoms. At the other facility the patient had initial workup that was negative including troponin. MD Complaint: chest pain Onset/Timin -: hour(s) Onset: during rest Pain Location: left chest Pain Radiation: LUE Severity: moderate Quality: aching Consistency: constant Improves With: nothing Worsens With: nothing Treatments Prior to Arrival: aspirin, oxygen - Related Data Home Medications Medication Instructions Recorded Confirmed Atorvastatin [Lipitor] 80 mg PO DAILY 07/08/20 06/06/24 Ranolazine [Ranexa] 1,000 mg PO BID 11/13/21 06/06/24 Albuterol Inhaler [Ventolin Hfa 2 puff INHALATION RT-QID PRN 03/27/23 06/06/24 Inhaler] Aspirin EC [Ecotrin Low Dose] 81 mg PO DAILY 03/27/23 06/06/24 Budesonide/Formoterol Fumarate 2 puff INHALATION RT-BID 03/27/23 06/06/24 [Symbicort 160-4.5 Mcg Inhaler] Clopidogrel [Plavix] 75 mg PO DAILY 03/27/23 06/06/24 Nitroglycerin Sl Tabs [Nitrostat] 0.4 mg SL Q5M PRN 03/27/23 06/06/24 Omeprazole 40 mg PO BID 03/27/23 06/06/24 Pregabalin [Lyrica] 150 mg PO TID 03/27/23 06/06/24 amLODIPine [Norvasc] 10 mg PO DAILY 03/27/23 06/06/24 metFORMIN HCL 1,000 mg PO BID 03/27/23 06/06/24 rOPINIRole HCL [Requip] 1 mg PO HS 03/27/23 06/06/24 ALPRAZolam [Xanax] 0.5 mg PO BID PRN 06/22/23 06/06/24 Dapagliflozin Propanediol [Farxiga] 5 mg PO DAILY 03/16/24 06/06/24 Dulaglutide [Trulicity] 3 mg SQ WE 03/16/24 06/06/24 Insulin Lispro [humaLOG Kwikpen] See Protocol SQ AC-TID 03/16/24 06/06/24 Ipratropium-Albuterol Nebulize 3 ml INHALATION RT-TID 03/16/24 06/06/24 [Duoneb 0.5 mg-3 mg/3 ml Soln] Isosorbide Mononitrate ER [Imdur] 30 mg PO DAILY 03/16/24 06/06/24 Spiriva Respimat 1.25mcg/Actuation 2 puff INHALATION RT-DAILY 05/24/24 06/06/24 Mist Albuterol Nebulized [Ventolin 2.5 mg INHALATION RT-Q6H PRN 05/31/24 06/06/24 Nebulized] Ondansetron Odt [Zofran ODT] 4 mg PO Q8HR PRN 05/31/24 06/06/24 lisinopriL [Zestril] 10 mg PO DAILY 05/31/24 06/06/24 Previous Rx's Medication Instructions Recorded Mag Hydrox/Al Hydrox/Simeth 30 ml PO QID PRN 2 Days #180 ml 05/22/24 [Maalox] Metoprolol Tartrate [Lopressor] 25 mg PO BID #60 tab 05/29/24 Cholestyramine (with Sugar) 4 gm PO BID #60 packet 06/03/24 [Questran] HYDROcodone/APAP 5-325MG [[place] 1 tab PO BID PRN 3 Days #6 tab 06/03/24 5-325] cefUROXime axetiL [Ceftin] 500 mg PO BID 6 Days #12 tab 06/03/24 metroNIDAZOLE [Flagyl] 500 mg PO TID 6 Days #18 tab 06/03/24 Allergies Allergy/AdvReac Type Severity Reaction Status Date / Time No Known Allergies Allergy Verified 06/06/24 09:35 Review of Systems ROS Statement: Those systems with pertinent positive or pertinent negative responses have been documented in the HPI. ROS Other: All systems not noted in ROS Statement are negative. Constitutional: Denies: fever, chills, weakness Respiratory: Denies: cough, dyspnea Cardiovascular: Reports: chest pain. Denies: palpitations, dyspnea on exertion, orthopnea, edema Endocrine: Denies: fatigue EKG Findings - EKG Results: EKG: interpreted by ERMD, sinus rhythm (87), normal axis, normal QRS, normal ST/T, no acute changes - DE, Pacemaker, Normal: Normal tracing: normal tracing Past Medical History Past Medical History: Asthma, Coronary Artery Disease (CAD), COPD, Diabetes Mellitus, GERD/Reflux, Hypertension, Myocardial Infarction (DE), Osteoarthritis (OA) Additional Past Medical History / Comment(s): DDD, scoliosis Last Myocardial Infarction Date:: 2011 History of Any Multi-Drug Resistant Organisms: None Reported Past Surgical History: Coronary Bypass/CABG, Heart Catheterization With Stent Additional Past Surgical History / Comment(s): seven stents Past Anesthesia/Blood Transfusion Reactions: No Reported Reaction Date of Last Stent Placement:: 11/2018 Past Psychological History: Anxiety, Bipolar Smoking Status: Current every day smoker Past Alcohol Use History: None Reported Past Drug Use History: Marijuana - Past Family History Mother Family Medical History: Cancer Additional Family Medical History / Comment(s): Ovarian cancer Father Family Medical History: Congestive Heart Failure (CHF) Fmily Family Medical History: No Reported History General Exam Limitations: no limitations General appearance: alert, in no apparent distress Head exam: Present: atraumatic, normocephalic Eye exam: Present: normal appearance. Absent: scleral icterus, conjunctival injection Neck exam: Present: normal inspection, full ROM Respiratory exam: Present: normal lung sounds bilaterally. Absent: respiratory distress, wheezes, rales, rhonchi, stridor, chest wall tenderness, accessory muscle use Cardiovascular Exam: Present: regular rate, normal rhythm, normal heart sounds. Absent: systolic murmur, diastolic murmur, rubs, gallop GI/Abdominal exam: Present: soft. Absent: distended, tenderness, guarding, rebound, rigid, mass Extremities exam: Present: normal inspection, normal capillary refill. Absent: pedal edema, calf tenderness Back exam: Present: normal inspection. Absent: CVA tenderness (R), CVA tenderness (L) Neurological exam: Present: alert Skin exam: Present: warm, dry, intact, normal color. Absent: rash Course Vital Signs 05/24/24 05/24/24 05/24/24 04:15 04:20 05:10 Temperature 97.6 F Pulse Rate 85 87 Respiratory 18 18 Rate Blood Pressure 185/100 164/96 O2 Sat by Pulse 97 96 Oximetry 05/24/24 05/24/24 05/24/24 06:16 08:19 08:29 Temperature Pulse Rate 74 78 89 Respiratory 16 Rate Blood Pressure 138/67 O2 Sat by Pulse 95 98 Oximetry 05/24/24 05/24/24 05/24/24 09:00 09:24 09:30 Temperature 98.8 F Pulse Rate 92 94 87 Respiratory 18 Rate Blood Pressure 141/88 160/101 138/88 O2 Sat by Pulse 96 Oximetry 05/24/24 05/24/24 05/24/24 11:53 12:00 12:56 Temperature 97.7 F Pulse Rate 69 75 75 Respiratory 17 Rate Blood Pressure 139/91 O2 Sat by Pulse 98 Oximetry 05/24/24 16:00 Temperature Pulse Rate 86 Respiratory 18 Rate Blood Pressure 135/82 O2 Sat by Pulse 95 Oximetry Chest Pain MDM - MDM Was pt. sent in by a medical professional or institution (VICENTE Mckenna, SPEECH LANGUAGE PATHOLOGIST PRN, urgent care, hospital, or care home...) When possible be specific @ -[No] Did you speak to anyone other than the patient for history (EMS, parent, family, police, friend...)? What history was obtained from this source @ -[No] Did you review nursing and triage notes (agree or disagree)? Why? @ -[I reviewed and agree with nursing and triage notes] Were old charts reviewed (outside hosp., previous admission, EMS record, old EKG, old radiological studies, urgent care reports/EKG's, care home records)? Report findings @ -[Transfer records were reviewed] Differential Diagnosis (chest pain, altered mental status, abdominal pain women, abdominal pain men, vaginal bleeding, weakness, fever, dyspnea, syncope, headache, dizziness, GI bleed, back pain, seizure, CVA, palpatations, mental health, musculoskeletal)? @ -[Differential Chest Pain: Stable Angina, Unstable Angina, STEMI, NSTEMI Aortic Dissection, Pneumothorax, Musculoskeletal, Esophageal Spasm GERD, Cholecystitis, Pancreatitis, Zoster, this is not meant to be an all-inclusive list. EKG interpreted by me (3pts min.). @ -[I interpreted as above] X-rays interpreted by me (1pt min.). @ -[None done] CT interpreted by me (1pt min.). @ -[None done] U/S interpreted by me (1pt. min.). @ -[None done] What testing was considered but not performed or refused? (CT, X-rays, U/S, labs)? Why? @ -[None] What meds were considered but not given or refused? Why? @ -[None] Did you discuss the management of the patient with other professionals (professionals i.e. , PA, SPEECH LANGUAGE PATHOLOGIST PRN, lab, RT, psych nurse, social service worker, trade embalmer, teacher, field artillery officer, piano case and bench assembler)? Give summary @ -Case discussed with admitting physician and treatment recommendations are incorporated Was smoking cessation discussed for >3mins.? @ -[No] Was critical care preformed (if so, how long)? @ -[No] Were there social determinants of health that impacted care today? How? (Homelessness, low income, unemployed, alcoholism, drug addiction, transportation, low edu. Level, literacy, decrease access to med. care, mcc, rehab)? @ -[No] Was there de-escalation of care discussed even if they declined (Discuss DNR or withdrawal of care, Hospice)? DNR status @ -[No] What co-morbidities impacted this encounter? (DM, HTN, Smoking, COPD, CAD, Canc er, CVA, ARF, Chemo, Hep., AIDS, mental health diagnosis, sleep apnea, morbid obesity)? @ -[None] Was patient admitted / discharged? Hospital course, mention meds given and route, prescriptions, significant lab abnormalities, going to OR and other pertinent info. @ -[This patient is 53-year-old woman who is seen at the outside hospital and transferred here to have further evaluation and treatment including serial cardiac enzymes and cardiology consultation for chest pain. Undiagnosed new problem with uncertain prognosis? @ -[No] Drug Therapy requiring intensive monitoring for toxicity (Heparin, Nitro, Insulin, Cardizem)? @ -[No] Were any procedures done? @ -[No] Diagnosis/symptom? @ -[Acute chest pain Acute, or Chronic, or Acute on Chronic? @ -[Acute Uncomplicated (without systemic symptoms) or Complicated (systemic symptoms)? @ -[d uncomplicated Side effects of treatment? @ -[No] Exacerbation, Progression, or Severe Exacerbation? @ -[No] Poses a threat to life or bodily function? How? (Chest pain, [place], DE, pneumonia, PE, COPD, DKA, ARF, appy, cholecystitis, CVA, Diverticulitis, Homicidal, Suicidal, threat to staff... and all critical care pts) @ -[Requires further evaluation Disposition Clinical Impression: Chest pain Disposition: ADMITTED IP TO THIS HOSP Is patient prescribed a controlled substance at d/c from ED?: No
[2024-05-24] MEDS: MORPHINE SULFATE 2 MG/ML SYRINGE IV STA (05:35)
[2024-05-24] MEDS ORDERED: ONDANSETRON 4 MG TAB PO PRN (06:21)
[2024-05-24] MEDS ORDERED: ALBUTEROL NEBULIZED 2.5 MG/3 ML INHALATION PRN (06:21)
[2024-05-24] MEDS ORDERED: TIOTROPIUM INHALATION SCH (08:00)
[2024-05-24] MEDS ORDERED: [UNRECOGNIZED DRUG - OTHER] INHALATION SCH (08:00)
[2024-05-24] MEDS: SYMBICORT 160-4.5 MCG INHALER INHALATION SCH (08:17)
[2024-05-24] MEDS: IPRATROPIUM-ALBUTEROL 3 ML NEB INHALATION SCH (08:17)
[2024-05-24] MEDS: HYDROcodone/APAP 5-325MG 1 EACH TAB PO PRN (09:23)
[2024-05-24] MEDS: NITROGLYCERIN SL TABS 0.4 MG TAB SUBLINGUAL PRN (09:24)
[2024-05-24] MEDS: CLOPIDOGREL 75 MG TAB PO SCH (09:25)
[2024-05-24] MEDS: MAG HYDROX/AL HYDROX/SIMETH 30 ML CUP PO PRN (09:25)
[2024-05-24] MEDS: ASPIRIN 81 MG PO SCH (09:26)
[2024-05-24] MEDS: RANOLAZINE 500 MG TAB.ER.12H PO SCH (09:26)
[2024-05-24] MEDS: ATORVASTATIN 80 MG TAB PO SCH (09:26)
[2024-05-24] MEDS: METOPROLOL TARTRATE 50 MG TAB PO SCH (09:26)
[2024-05-24] MEDS: amLODIPine 10 MG TAB PO SCH (09:26)
[2024-05-24] MEDS: PANTOPRAZOLE 40 MG TABLET PO SCH (09:26)
[2024-05-24] MEDS: metFORMIN 500 MG TAB PO SCH (09:28)
[2024-05-24] MEDS: ISOSORBIDE MONONITRATE ER 30 MG TAB.ER.24H PO SCH (09:29)
[2024-05-24] MEDS: lisinopriL 10 MG TAB PO SCH (09:34)
[2024-05-24] MEDS: PREGABALIN 75 MG CAP PO SCH (10:25)
--- NOTE | 2024-05-24 11:45 | P.CRDCN ---
History of Present Illness History of present illness: HISTORY OF PRESENT ILLNESS: This is a 53-year-old female with a past medical history significant for coronary artery disease with previous CABG, hypertension, hyperlipidemia, and diabetes. Patient follows with a environmental health technician in [place]. We have been asked to see the patient in consultation for chest pain. Patient examined at the bedside. Patient was just admitted to the hospital earlier this week for chest pain. Patient had developed chest pain after multiple episodes of nausea and vomiting. Echocardiogram was completed revealing normal LV systolic function. The patient's chest pain resolved and she was discharged home in stable condition. Patient states she has continued to have CP since being discharged. She denies radiation of the pain. She did receive nitro this morning without relief of the pain. Repeat EKG negative for ischemia. DIAGNOSTICS: - EKG reveals sinus mechanism with no signs of acute ischemia - Laboratory data: Troponin negative x 2 - Current home cardiac medications include aspirin 81 mg daily, Lipitor 80 mg daily, Plavix 75 mg daily, Farxiga 5 mg daily, Imdur 30 mg daily, metoprolol tartrate 50 mg twice a day, Ranexa 1000 mg twice a day, amlodipine 10 mg daily - Most recent echocardiogram obtained earlier this week revealed ejection fraction 55 to 60% with mild AR - Cardiac catheterization history: October 2021 revealing stable coronary artery disease with patent vein graft to the LAD. Total occluded graft to the circumflex but stent in the proximal circumflex is patent. RCA with mild disease. Medical management was recommended. REVIEW OF SYSTEMS: At the time of my exam: CONSTITUTIONAL: Denies fever or chills. HEENT: Denies blurred vision, vision changes, or eye pain. Denies hemoptysis CARDIOVASCULAR: Denies chest pain. Denies orthopnea. Denies PND. Denies palpitations RESPIRATORY: Denies shortness of breath. GASTROINTESTINAL: Denies abdominal pain. Denies nausea or vomiting. HEMATOLOGIC: Denies bleeding disorders. GENITOURINARY: Denies any blood in urine. SKIN: Denies pruitis. Denies rash. PHYSICAL EXAM: VITAL SIGNS: Reviewed. GENERAL: Well-developed in no acute distress. HEENT: Head is normocephalic. Pupils are equal, round. Sclerae anicteric. Mucous membranes of the mouth are moist. Neck supple. No JVD or thyromegaly LUNGS: Respirations even and unlabored. Lungs essentially clear to auscultation bilaterally. HEART: Regular rate and rhythm. S1 and S2 heard. ABDOMEN: Soft. Nondistended. Nontender. EXTREMITIES: Normal range of motion. No clubbing or cyanosis. Peripheral pulses intact. No lower extremity edema NEUROLOGIC: Awake and alert. Oriented x 3. ASSESSMENT: Chest pain, does not appear cardiac in nature Coronary artery disease with previous two-vessel CABG in 2008, [facility] Patent VG to LAD, totally occluded graft to circumflex with patent proximal circumflex stent, mild RCA disease, per cardiac catheterization in 2021 Hypertension Hyperlipidemia Diabetes Nicotine dependence PLAN: An acute coronary event has been ruled out No need to repeat echocardiogram as this was obtained earlier this week Resume home cardiac medications Obtain d-dimer No plans for stress testing or cardiac cath at this time Further recommendations pending patient course Nurse practitioner note has been reviewed by physician. Signing provider agrees with the documented findings, assessment, and plan of care documented by HARDBOARD COATING MACHINE OPERATOR as a scribe. Past Medical History Past Medical History: Asthma, Coronary Artery Disease (CAD), COPD, Diabetes Mellitus, GERD/Reflux, Hypertension, Myocardial Infarction ([place]), Osteoarthritis (OA) Additional Past Medical History / Comment(s): DDD, scoliosis Last Myocardial Infarction Date:: 2011 History of Any Multi-Drug Resistant Organisms: None Reported Past Surgical History: Coronary Bypass/CABG, Heart Catheterization With Stent Additional Past Surgical History / Comment(s): seven stents Past Anesthesia/Blood Transfusion Reactions: No Reported Reaction Date of Last Stent Placement:: 11/2018 Past Psychological History: Anxiety, Bipolar Smoking Status: Current every day smoker Past Alcohol Use History: None Reported Past Drug Use History: Marijuana - Past Family History Mother Family Medical History: Cancer Additional Family Medical History / Comment(s): Ovarian cancer Father Family Medical History: Congestive Heart Failure (CHF) Fmily Family Medical History: No Reported History Medications and Allergies Home Medications Medication Instructions Recorded Confirmed Type Atorvastatin [Lipitor] 80 mg PO DAILY 07/08/20 05/24/24 History Ranolazine [Ranexa] 1,000 mg PO BID 11/13/21 05/24/24 History Albuterol Inhaler [Ventolin Hfa 2 puff INHALATION RT-QID PRN 03/27/23 05/24/24 History Inhaler] Aspirin EC [Ecotrin Low Dose] 81 mg PO DAILY 03/27/23 05/24/24 History Budesonide/Formoterol Fumarate 2 puff INHALATION RT-BID 03/27/23 05/24/24 History [Symbicort 160-4.5 Mcg Inhaler] Clopidogrel [Plavix] 75 mg PO DAILY 03/27/23 05/24/24 History Metoprolol Tartrate [Lopressor] 50 mg PO BID 03/27/23 05/24/24 History Nitroglycerin Sl Tabs [Nitrostat] 0.4 mg SL Q5M PRN 03/27/23 05/24/24 History Omeprazole 40 mg PO BID 03/27/23 05/24/24 History Ondansetron [Zofran] 4 mg PO TID PRN 03/27/23 05/24/24 History Pregabalin [Lyrica] 150 mg PO TID 03/27/23 05/24/24 History amLODIPine [Norvasc] 10 mg PO DAILY 03/27/23 05/24/24 History metFORMIN HCL 1,000 mg PO BID 03/27/23 05/24/24 History rOPINIRole HCL [Requip] 1 mg PO HS 03/27/23 05/24/24 History ALPRAZolam [Xanax] 0.5 mg PO BID PRN 06/22/23 05/24/24 History Dapagliflozin Propanediol [Farxiga] 5 mg PO DAILY 03/16/24 05/24/24 History Dulaglutide [Trulicity] 3 mg SQ WE 03/16/24 05/24/24 History HYDROcodone/APAP 5-325MG [[place] 1 tab PO BID PRN 03/16/24 05/24/24 History 5-325] Insulin Lispro [humaLOG Kwikpen] See Protocol SQ AC-TID 03/16/24 05/24/24 History Ipratropium-Albuterol Nebulize 3 ml INHALATION RT-TID 03/16/24 05/24/24 History [Duoneb 0.5 mg-3 mg/3 ml Soln] Isosorbide Mononitrate ER [Imdur] 30 mg PO DAILY 03/16/24 05/24/24 History Mag Hydrox/Al Hydrox/Simeth 30 ml PO QID PRN 2 Days #180 ml 05/22/24 05/24/24 Rx [Maalox] Spiriva Respimat 1.25mcg/Actuation 2 puff INHALATION RT-DAILY 05/24/24 05/24/24 History Mist methylPREDNISolone Dose Pack See Taper PO DIRECTED 05/24/24 05/24/24 History [Medrol Dose Pack] Allergies Allergy/AdvReac Type Severity Reaction Status Date / Time No Known Allergies Allergy Verified 05/20/24 16:39 Physical Exam Vitals: Vital Signs Temp Pulse Resp BP Pulse Ox 05/24/24 09:30 87 138/88 05/24/24 09:24 94 160/101 05/24/24 09:00 98.8 F 92 18 141/88 96 05/24/24 08:29 89 05/24/24 08:19 78 98 05/24/24 06:16 74 16 138/67 95 05/24/24 05:10 87 18 164/96 96 05/24/24 04:20 85 18 185/100 97 05/24/24 04:15 97.6 F Intake and Output 05/23/24 05/24/24 05/24/24 22:59 06:59 14:59 Other: Weight 90.718 kg Results Cardiac Enzymes 05/24/24 05/24/24 Range/Units 04:36 07:20 Troponin I <0.012 <0.012 (0.000-0.034) ng/mL Current Medications Generic Name Dose Route Start Last Admin Trade Name Freq PRN Reason Stop Dose Admin Hydrocodone Bitart/Acetaminophen 1 each 05/24/24 06:21 05/24/24 09:23 Hydrocodone/Apap 5-325mg 1 Each Tab PO 1 each BID PRN Administration Pain Al Hydroxide/Mg Hydroxide 30 ml 05/24/24 06:21 05/24/24 09:25 Mag Hydrox/Al Hydrox/Simeth 30 Ml Cup PO 30 ml QID PRN Administration Heartburn Albuterol Sulfate 2.5 mg 05/24/24 06:21 Albuterol Nebulized 2.5 Mg/3 Ml INHALATION RT-QID PRN Shortness Of Breath Albuterol/Ipratropium 3 ml 05/24/24 08:00 05/24/24 08:17 Ipratropium-Albuterol 3 Ml Neb INHALATION 3 ml RT-TID AMANDA Administration Amlodipine Besylate 10 mg 05/24/24 09:00 05/24/24 09:26 Amlodipine 10 Mg Tab PO 10 mg DAILY AMANDA Administration Aspirin 81 mg 05/24/24 09:00 05/24/24 09:26 Aspirin 81 Mg PO 81 mg DAILY AMANDA Administration Atorvastatin Calcium 80 mg 05/24/24 09:00 05/24/24 09:26 Atorvastatin 80 Mg Tab PO 80 mg DAILY AMANDA Administration Budesonide/Formoterol Fumarate 2 puff 05/24/24 08:00 05/24/24 08:17 Symbicort 160-4.5 Mcg Inhaler INHALATION 2 puff RT-BID AMANDA Administration Clopidogrel Bisulfate 75 mg 05/24/24 09:00 05/24/24 09:26 Clopidogrel 75 Mg Tab PO 75 mg DAILY AMANDA Administration Isosorbide Mononitrate 30 mg 05/24/24 09:00 05/24/24 09:29 Isosorbide Mononitrate Er 30 Mg Tab.Er.24h PO 30 mg DAILY AMANDA Administration Lisinopril 10 mg 05/24/24 09:30 05/24/24 09:34 Lisinopril 10 Mg Tab PO 10 mg DAILY AMANDA Administration Metformin HCl 1,000 mg 05/24/24 07:30 05/24/24 09:28 Metformin 500 Mg Tab PO Not Given AC-BID AMANDA Metoprolol Tartrate 50 mg 05/24/24 09:00 05/24/24 09:26 Metoprolol Tartrate 50 Mg Tab PO 50 mg BID AMANDA Administration Nitroglycerin 0.4 mg 05/24/24 06:18 05/24/24 09:34 Nitroglycerin Sl Tabs 0.4 Mg Tab SUBLINGUAL 0.4 mg Q5M PRN Administration Chest Pain Ondansetron HCl 4 mg 05/24/24 06:21 Ondansetron 4 Mg Tab PO TID PRN Nausea Pantoprazole Sodium 40 mg 05/24/24 07:30 05/24/24 09:26 Pantoprazole 40 Mg Tablet PO 40 mg AC-BID AMANDA Administration Pregabalin 150 mg 05/24/24 09:00 Pregabalin 75 Mg Cap PO TID AMANDA Ranolazine 1,000 mg 05/24/24 09:00 05/24/24 09:26 Ranolazine 500 Mg Tab.Er.12h PO 1,000 mg BID AMANDA Administration Ropinirole HCl 1 mg 05/24/24 21:00 Ropinirole Hcl 1 Mg Tab PO HS AMANDA Intake and Output 05/23/24 05/24/24 05/24/24 22:59 06:59 14:59 Other: Weight 90.718 kg
[2024-05-24 13:05] VITALS: TEMP 97.7
--- NOTE | 2024-05-24 14:16 | P.HPIM ---
History of Present Illness H&P Date: 05/24/24 This is a pleasant 53-year-old female with medical history significant for oxygen dependent COPD, coronary artery disease with prior CABG and cardiac stenting,, diabetes mellitus, Acid reflux, hypertension, patient is a current smoker about 1/2 pack/day. She comes into the hospital complaining of si gnificant left-sided chest discomfort with radiation into the neck and shoulder. She also reports feeling short of breath and having episodes of nausea and diaphoresis she states that she felt the same with her prior heart attacks. Not having any fever or chills she is not having numbness or tingling in her extremities she is not having any dizziness or lightheadedness or palpitations. Her EKG reveals sinus rhythm with no specific ST or T wave changes heart rate of 96 normal sinus rhythm. Chest X-ray reveals no acute cardiopulmonary process. Patient was discharged on with same symptoms and she had a thoracic aorta CT reveals moderate atherosclerosis of the arterial vasculature, no evidence of intramural hematoma, dissection, aneurysm, or occlusion. There are postsurgical changes of the coronary arteries with moderate coronary artery atherosclerosis and or stent grafts. Blood work is essentially unremarkable, troponin level is negative x 3, proBNP is 106. Admitted for cardiac evaluation. Echocardiogram completed revealing ejection fraction 55 to 60%, mild aortic regurgitation. 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 Patient returns with the same symptoms and states it started night with mid to left sided chest pressure wrapping around to the back and into the left shoulder and arm. She states it got worse by Monday went to [place] who brought her down for admission. She did receive nitro this morning without relief of the pain. Repeat EKG negative for ischemia. REVIEW OF SYSTEMS: CONSTITUTIONAL: No fever, no malaise, no fatigue. HEENT: No recent visual problems or hearing problems. Denied any sore throat. CARDIOVASCULAR: Reports chest pain, orthopnea, PND, no palpitations, no syncope. PULMONARY: Reports shortness of breath, no cough, no hemoptysis. GASTROINTESTINAL: No diarrhea, no nausea, no vomiting, no abdominal pain. NEUROLOGICAL: No headaches, no weakness, no numbness. HEMATOLOGICAL: Denies any bleeding or petechiae. GENITOURINARY: Denies any burning micturition, frequency, or urgency. MUSCULOSKELETAL/RHEUMATOLOGICAL: Denies any joint pain, swelling, or any muscle pain. ENDOCRINE: Denies any polyuria or polydipsia. The rest of the 14-point review of systems is negative. PHYSICAL EXAMINATION: GENERAL: The patient is alert and oriented x3, not in any acute distress. Well developed, well nourished. Elderly appearing, on 2 L of oxygen. HEENT: Pupils are round and equally reacting to light. EOMI. No scleral icterus. No conjunctival pallor. Normocephalic, atraumatic. No pharyngeal erythema. No thyromegaly. CARDIOVASCULAR: S1 and S2 present. No murmurs, rubs, or gallops. PULMONARY: Chest is clear to auscultation, no wheezing or crackles. ABDOMEN: Soft, nontender, nondistended, normoactive bowel sounds. No palpable organomegaly. MUSCULOSKELETAL: No joint swelling or deformity. EXTREMITIES: No cyanosis, clubbing, or pedal edema. NEUROLOGICAL: Gross neurological examination did not reveal any focal deficits. SKIN: No rashes. Assessment Chest pain, ACS rule out Coronary artery disease with prior cardiac stenting and percutaneous intervention Patent VG to LAD, totally occluded graft to circumflex with patent proximal circumflex stent, mild RCA disease, per cardiac catheterization in 2021 Hypertension Hyperlipidemia Diabetes mellitus type II Nicotine use and oxygen dependent COPD Anxiety/bipolar Prophylaxis DVT prophylaxis Full code Plan Echocardiogram will not be repeated as patient had one 2 days ago Resume appropriate cardiac medications Continue pain management Continue on aspirin Plavix Pending D-Dimer Lipid panel pending Patient admitted in observation. The impression and plan of care has been dictated by Violetta Maya Nurse Practitioner as directed. Dr. Lito MD I have performed a history and physical examination and medical decision making of this patient, discussed the same with the dictator, and agree with the dictators assessment and plan as written, documented as a scribe. Based on total visit time, I have performed more than 50% of this visit. Past Medical History Past Medical History: Asthma, Coronary Artery Disease (CAD), COPD, Diabetes Mellitus, GERD/Reflux, Hypertension, Myocardial Infarction ([place]), Osteoarthritis (OA) Additional Past Medical History / Comment(s): DDD, scoliosis Last Myocardial Infarction Date:: 2011 History of Any Multi-Drug Resistant Organisms: None Reported Past Surgical History: Coronary Bypass/CABG, Heart Catheterization With Stent Additional Past Surgical History / Comment(s): seven stents Past Anesthesia/Blood Transfusion Reactions: No Reported Reaction Date of Last Stent Placement:: 11/2018 Past Psychological History: Anxiety, Bipolar Smoking Status: Current every day smoker Past Alcohol Use History: None Reported Past Drug Use History: Marijuana - Past Family History Mother Family Medical History: Cancer Additional Family Medical History / Comment(s): Ovarian cancer Father Family Medical History: Congestive Heart Failure (CHF) Fmily Family Medical History: No Reported History Medications and Allergies Home Medications Medication Instructions Recorded Confirmed Type Atorvastatin [Lipitor] 80 mg PO DAILY 07/08/20 05/24/24 History Ranolazine [Ranexa] 1,000 mg PO BID 11/13/21 05/24/24 History Albuterol Inhaler [Ventolin Hfa 2 puff INHALATION RT-QID PRN 03/27/23 05/24/24 History Inhaler] Aspirin EC [Ecotrin Low Dose] 81 mg PO DAILY 03/27/23 05/24/24 History Budesonide/Formoterol Fumarate 2 puff INHALATION RT-BID 03/27/23 05/24/24 History [Symbicort 160-4.5 Mcg Inhaler] Clopidogrel [Plavix] 75 mg PO DAILY 03/27/23 05/24/24 History Metoprolol Tartrate [Lopressor] 50 mg PO BID 03/27/23 05/24/24 History Nitroglycerin Sl Tabs [Nitrostat] 0.4 mg SL Q5M PRN 03/27/23 05/24/24 History Omeprazole 40 mg PO BID 03/27/23 05/24/24 History Ondansetron [Zofran] 4 mg PO TID PRN 03/27/23 05/24/24 History Pregabalin [Lyrica] 150 mg PO TID 03/27/23 05/24/24 History amLODIPine [Norvasc] 10 mg PO DAILY 03/27/23 05/24/24 History metFORMIN HCL 1,000 mg PO BID 03/27/23 05/24/24 History rOPINIRole HCL [Requip] 1 mg PO HS 03/27/23 05/24/24 History ALPRAZolam [Xanax] 0.5 mg PO BID PRN 06/22/23 05/24/24 History Dapagliflozin Propanediol [Farxiga] 5 mg PO DAILY 03/16/24 05/24/24 History Dulaglutide [Trulicity] 3 mg SQ WE 03/16/24 05/24/24 History HYDROcodone/APAP 5-325MG [[place] 1 tab PO BID PRN 03/16/24 05/24/24 History 5-325] Insulin Lispro [humaLOG Kwikpen] See Protocol SQ AC-TID 03/16/24 05/24/24 Hi story Ipratropium-Albuterol Nebulize 3 ml INHALATION RT-TID 03/16/24 05/24/24 History [Duoneb 0.5 mg-3 mg/3 ml Soln] Isosorbide Mononitrate ER [Imdur] 30 mg PO DAILY 03/16/24 05/24/24 History Mag Hydrox/Al Hydrox/Simeth 30 ml PO QID PRN 2 Days #180 ml 05/22/24 05/24/24 Rx [Maalox] Spiriva Respimat 1.25mcg/Actuation 2 puff INHALATION RT-DAILY 05/24/24 05/24/24 History Mist methylPREDNISolone Dose Pack See Taper PO DIRECTED 05/24/24 05/24/24 History [Medrol Dose Pack] Allergies Allergy/AdvReac Type Severity Reaction Status Date / Time No Known Allergies Allergy Verified 05/20/24 16:39 Physical Exam Vitals: Vital Signs Temp Pulse Resp BP Pulse Ox 05/24/24 12:56 97.7 F 75 17 139/91 98 05/24/24 12:00 75 05/24/24 11:53 69 05/24/24 09:30 87 138/88 05/24/24 09:24 94 160/101 05/24/24 09:00 98.8 F 92 18 141/88 96 05/24/24 08:29 89 05/24/24 08:19 78 98 05/24/24 06:16 74 16 138/67 95 05/24/24 05:10 87 18 164/96 96 05/24/24 04:20 85 18 185/100 97 05/24/24 04:15 97.6 F Intake and Output 05/23/24 05/24/24 05/24/24 22:59 06:59 14:59 Other: Weight 90.718 kg Assessment and Plan Time with Patient: Less than 30
[2024-05-24] MEDS: KETOROLAC 15 MG/ML 1 ML VIAL IVP PRN (14:58)
[2024-05-24 17:25] VITALS: BP 135/82; PULSE 86; RESP 18
--- NOTE | 2024-05-24 18:49 | P.DS ---
Providers Date of admission: 05/24/24 06:18 Attending physician: Paz Schmitt MD Consults: 05/24/24 06:18 Consult Physician Routine Consulting Provider: Cali Han Consult Reason/Comments: chest pain Do you want consulting provider notified?: Yes Primary care physician: Kemar Jin MD Hospital Course: Patient Left AMA. Chest CT angio ordered due to the ongoing chest pain. Also ordered an xray of the left shoulderr. Patient requesting pain medication. IV toradol given. Patient per nurse stated nothing was being done for her. She left AMA, cardiology felt the chest pain was non cardiac in nature. The impression and plan of care has been dictated by Violetta Maya, Nurse Practitioner as directed. Dr. Lito MD I have performed a history and physical examination and medical decision making of this patient, discussed the same with the dictator, and agree with the dictators assessment and plan as written, documented as a scribe. Based on total visit time, I have performed more than 50% of this visit. Plan - Discharge Summary New Discharge Prescriptions: No Action Atorvastatin [Lipitor] 80 mg PO DAILY Ranolazine [Ranexa] 1,000 mg PO BID metFORMIN HCL 1,000 mg PO BID Nitroglycerin Sl Tabs [Nitrostat] 0.4 mg SL Q5M PRN PRN Reason: Chest Pain Aspirin EC [Ecotrin Low Dose] 81 mg PO DAILY Albuterol Inhaler [Ventolin Hfa Inhaler] 2 puff INHALATION RT-QID PRN PRN Reason: Shortness Of Breath Isosorbide Mononitrate ER [Imdur] 30 mg PO DAILY Insulin Lispro [humaLOG Kwikpen] See Protocol SQ AC-TID Dapagliflozin Propanediol [Farxiga] 5 mg PO DAILY Dulaglutide [Trulicity] 3 mg SQ WE Ipratropium-Albuterol Nebulize [Duoneb 0.5 mg-3 mg/3 ml Soln] 3 ml INHALATION RT-TID methylPREDNISolone Dose Pack [Medrol Dose Pack] See Taper PO DIRECTED Spiriva Respimat 1.25mcg/Actuation Mist 2 puff INHALATION RT-DAILY rOPINIRole HCL [Requip] 1 mg PO HS Metoprolol Tartrate [Lopressor] 50 mg PO BID amLODIPine [Norvasc] 10 mg PO DAILY Omeprazole 40 mg PO BID Budesonide/Formoterol Fumarate [Symbicort 160-4.5 Mcg Inhaler] 2 puff INHALATION RT-BID Ondansetron [Zofran] 4 mg PO TID PRN PRN Reason: Nausea Pregabalin [Lyrica] 150 mg PO TID Clopidogrel [Plavix] 75 mg PO DAILY ALPRAZolam [Xanax] 0.5 mg PO BID PRN PRN Reason: Anxiety HYDROcodone/APAP 5-325MG [[place] 5-325] 1 tab PO BID PRN PRN Reason: Pain Mag Hydrox/Al Hydrox/Simeth [Maalox] 30 ml PO QID PRN 2 Days #180 ml PRN Reason: Heartburn Discharge Medication List Atorvastatin [Lipitor] 80 mg PO DAILY 07/08/20 [History] Ranolazine [Ranexa] 1,000 mg PO BID 11/13/21 [History] Albuterol Inhaler [Ventolin Hfa Inhaler] 2 puff INHALATION RT-QID PRN 03/27/23 [History] Aspirin EC [Ecotrin Low Dose] 81 mg PO DAILY 03/27/23 [History] Budesonide/Formoterol Fumarate [Symbicort 160-4.5 Mcg Inhaler] 2 puff INHALATION RT-BID 03/27/23 [History] Clopidogrel [Plavix] 75 mg PO DAILY 03/27/23 [History] Metoprolol Tartrate [Lopressor] 50 mg PO BID 03/27/23 [History] Nitroglycerin Sl Tabs [Nitrostat] 0.4 mg SL Q5M PRN 03/27/23 [History] Omeprazole 40 mg PO BID 03/27/23 [History] Ondansetron [Zofran] 4 mg PO TID PRN 03/27/23 [History] Pregabalin [Lyrica] 150 mg PO TID 03/27/23 [History] amLODIPine [Norvasc] 10 mg PO DAILY 03/27/23 [History] metFORMIN HCL 1,000 mg PO BID 03/27/23 [History] rOPINIRole HCL [Requip] 1 mg PO HS 03/27/23 [History] ALPRAZolam [Xanax] 0.5 mg PO BID PRN 06/22/23 [History] Dapagliflozin Propanediol [Farxiga] 5 mg PO DAILY 03/16/24 [History] Dulaglutide [Trulicity] 3 mg SQ WE 03/16/24 [History] HYDROcodone/APAP 5-325MG [[place] 5-325] 1 tab PO BID PRN 03/16/24 [History] Insulin Lispro [humaLOG Kwikpen] See Protocol SQ AC-TID 03/16/24 [History] Ipratropium-Albuterol Nebulize [Duoneb 0.5 mg-3 mg/3 ml Soln] 3 ml INHALATION RT-TID 03/16/24 [History] Isosorbide Mononitrate ER [Imdur] 30 mg PO DAILY 03/16/24 [History] Mag Hydrox/Al Hydrox/Simeth [Maalox] 30 ml PO QID PRN 2 Days #180 ml 05/22/24 [Rx] Spiriva Respimat 1.25mcg/Actuation Mist 2 puff INHALATION RT-DAILY 05/24/24 [History] methylPREDNISolone Dose Pack [Medrol Dose Pack] See Taper PO DIRECTED 05/24/24 [History] Follow up Appointment(s)/Referral(s): Kemar Jin MD [Primary Care Provider] - 1-2 days
[2024-05-25] MEDS ORDERED: ASPIRIN 325 MG TAB PO SCH (09:00)
== END 2024-05-24 17:27 | disposition left against medical advice (07) ==
LOC: EC 04:14 → 6NMEDSUR 06:18
PROVIDERS: ADMIT Internal Medicine; ATTEND Internal Medicine
DX: R07.89 Other chest pain (principal); T82.857A Stenosis of other cardiac prosthetic devices, implants and grafts, initial encounter; I25.10 Atherosclerotic heart disease of native coronary artery without angina pectoris; Z53.29 Procedure and treatment not carried out because of patient's decision for other reasons; J44.89 Other specified chronic obstructive pulmonary disease; E11.9 Type 2 diabetes mellitus without complications; I10 Essential (primary) hypertension; I35.1 Nonrheumatic aortic (valve) insufficiency; E78.5 Hyperlipidemia, unspecified; K21.9 Gastro-esophageal reflux disease without esophagitis; M54.2 Cervicalgia; M79.602 Pain in left arm; M25.512 Pain in left shoulder; M54.9 Dorsalgia, unspecified; R11.2 Nausea with vomiting, unspecified; R61 Generalized hyperhidrosis; I25.2 Old myocardial infarction; F31.9 Bipolar disorder, unspecified; F41.9 Anxiety disorder, unspecified; Z99.81 Dependence on supplemental oxygen; F17.210 Nicotine dependence, cigarettes, uncomplicated; Z79.02 Long term (current) use of antithrombotics/antiplatelets; Z79.82 Long term (current) use of aspirin; Z79.52 Long term (current) use of systemic steroids; Z79.51 Long term (current) use of inhaled steroids; Z79.84 Long term (current) use of oral hypoglycemic drugs; Z79.85 Long-term (current) use of injectable non-insulin antidiabetic drugs; Z79.4 Long term (current) use of insulin; Z79.899 Other long term (current) drug therapy; Z95.1 Presence of aortocoronary bypass graft; Z95.5 Presence of coronary angioplasty implant and graft
CPT/HCPCS: 36415; 84484; 85379; 93005; 94640; 94760; 96374; 99285

== ENCOUNTER 2024-05-26 20:03 | Observation (INO) | payer OTHER ==
--- NOTE | 2024-05-26 20:35 | ED ---
Chest Pain HPI - General Chief Complaint: Chest Pain Stated Complaint: SOB chest pain Time Seen by Provider: 05/26/24 20:20 Source: patient, EMS Mode of arrival: EMS - History of Present Illness Initial Comments: Patient is a 53-year-old female presenting today for chest pain that began prior to arrival. Described as pressure and tightness. Radiates to back. Patient states this is how her chest felt prior to her last CABG in 2008. Endorses associated chest tightness, causing shortness of breath. No associated diaphoresis or vomiting. Endorses nausea.No fevers. No cough, no hemoptysis. Hx limited as patient is tearful and painful. - Related Data Home Medications Medication Instructions Recorded Confirmed Atorvastatin [Lipitor] 80 mg PO DAILY 07/08/20 05/27/24 Ranolazine [Ranexa] 1,000 mg PO BID 11/13/21 05/27/24 Albuterol Inhaler [Ventolin Hfa 2 puff INHALATION RT-QID PRN 03/27/23 05/27/24 Inhaler] Aspirin EC [Ecotrin Low Dose] 81 mg PO DAILY 03/27/23 05/27/24 Budesonide/Formoterol Fumarate 2 puff INHALATION RT-BID 03/27/23 05/27/24 [Symbicort 160-4.5 Mcg Inhaler] Clopidogrel [Plavix] 75 mg PO DAILY 03/27/23 05/27/24 Metoprolol Tartrate [Lopressor] 50 mg PO BID 03/27/23 05/27/24 Nitroglycerin Sl Tabs [Nitrostat] 0.4 mg SL Q5M PRN 03/27/23 05/27/24 Omeprazole 40 mg PO BID 03/27/23 05/27/24 Ondansetron [Zofran] 4 mg PO TID PRN 03/27/23 05/27/24 Pregabalin [Lyrica] 150 mg PO TID 03/27/23 05/27/24 amLODIPine [Norvasc] 10 mg PO DAILY 03/27/23 05/27/24 metFORMIN HCL 1,000 mg PO BID 03/27/23 05/27/24 rOPINIRole HCL [Requip] 1 mg PO HS 03/27/23 05/27/24 ALPRAZolam [Xanax] 0.5 mg PO BID PRN 06/22/23 05/27/24 Dapagliflozin Propanediol [Farxiga] 5 mg PO DAILY 03/16/24 05/27/24 Dulaglutide [Trulicity] 3 mg SQ WE 03/16/24 05/27/24 HYDROcodone/APAP 5-325MG [[place] 1 tab PO BID PRN 03/16/24 05/27/24 5-325] Insulin Lispro [humaLOG Kwikpen] See Protocol SQ AC-TID 03/16/24 05/27/24 Ipratropium-Albuterol Nebulize 3 ml INHALATION RT-TID 03/16/24 05/27/24 [Duoneb 0.5 mg-3 mg/3 ml Soln] Isosorbide Mononitrate ER [Imdur] 30 mg PO DAILY 03/16/24 05/27/24 Spiriva Respimat 1.25mcg/Actuation 2 puff INHALATION RT-DAILY 05/24/24 05/27/24 Mist methylPREDNISolone Dose Pack See Taper PO DIRECTED 05/24/24 05/27/24 [Medrol Dose Pack] Previous Rx's Medication Instructions Recorded Mag Hydrox/Al Hydrox/Simeth 30 ml PO QID PRN 2 Days #180 ml 05/22/24 [Maalox] Allergies Allergy/AdvReac Type Severity Reaction Status Date / Time No Known Allergies Allergy Verified 05/27/24 11:54 Review of Systems ROS Statement: Those systems with pertinent positive or pertinent negative responses have been documented in the HPI. EKG Findings - EKG Comments: EKG Findings:: Sinus tachycardia, rate 111 bpm, CT interval 125 ms, QRS duration 86 ms, QT/QTc 330/395 ms, normal axis No ST elevation no arrhythmia Past Medical History Past Medical History: Asthma, Coronary Artery Disease (CAD), COPD, Diabetes Mellitus, GERD/Reflux, Hypertension, Myocardial Infarction ([place]), Osteoarthritis (OA) Additional Past Medical History / Comment(s): DDD, scoliosis Last Myocardial Infarction Date:: 2011 History of Any Multi-Drug Resistant Organisms: None Reported Past Surgical History: Coronary Bypass/CABG, Heart Catheterization With Stent Additional Past Surgical History / Comment(s): seven stents Past Anesthesia/Blood Transfusion Reactions: No Reported Reaction Date of Last Stent Placement:: 11/2018 Past Psychological History: Anxiety, Bipolar Smoking Status: Current every day smoker Past Alcohol Use History: None Reported Past Drug Use History: Marijuana - Past Family History Mother Family Medical History: Cancer Additional Family Medical History / Comment(s): Ovarian cancer Father Family Medical History: Congestive Heart Failure (CHF) Fmily Family Medical History: No Reported History General Exam - General Exam Comments Initial Comments: PE: CONSTITUTIONAL: Mild distress, tearful, mildly tachypneic, non toxic appearing SKIN: Warm, dry, no jaundice, hives or petechiae EYES: Pupils are equally round, extraocular movements intact without nystagmus, clear conjunctiva, non-icteric sclera HENT: Normocephalic, atraumatic, moist mucus membranes, oropharynx clear without exudates NECK: , Full range of motion, normal appearance PULMONARY: Clear to auscultation without wheezes, rhonchi, or rales, normal excursion, no accessory muscle use and no stridor CARDIOVASCULAR: Regular rate, rhythm, normal S1 and S2. No appreciated murmurs, rubs or gallops. Strong radial pulses with intact distal perfusion, strong DP pulses, No lower extremity edema, equal pulses in all 4 extremities GASTROINTESTINAL: Soft, non-tender, non-distended, no palpable masses, no rebound or guarding. No hepatosplenomegaly MUSCULOSKELETAL: Extremities have no gross deformity, no edema, redness, or swelling. No calf swelling NEUROLOGIC:_a/o x 3, GCS 15, normal mentation and speech. Moves all extremities x 4 without motor or sensory deficit PSYCHIATRIC: Anxious mood and tearful affect, thought process is clear and linear Course Vital Signs 05/26/24 05/26/24 05/26/24 20:07 20:15 21:31 Temperature 98.7 F Pulse Rate 116 H 114 H 93 Pulse Rate [ Pulse Oximetery ] Respiratory 18 18 18 Rate Blood Pressure 145/92 145/92 130/93 Blood Pressure [Left Arm] O2 Sat by Pulse 98 98 95 Oximetry 05/26/24 05/27/24 05/27/24 23:22 00:07 00:52 Temperature Pulse Rate 96 72 95 Pulse Rate [ Pulse Oximetery ] Respiratory 18 18 18 Rate Blood Pressure 153/91 152/99 Blood Pressure [Left Arm] O2 Sat by Pulse 100 100 95 Oximetry 05/27/24 05/27/24 01:12 01:25 Temperature 97.8 F Pulse Rate 88 Pulse Rate [ 98 Pulse Oximetery ] Respiratory 19 18 Rate Blood Pressure 119/72 Blood Pressure 156/88 [Left Arm] O2 Sat by Pulse 95 95 Oximetry - Reevaluation(s) Reevaluation #1: 05/26/24 21:28 Patient taken for dissection study however IV blew. Patient requires US guided IV. Zhao RN, will again attempt to place IV. CT delayed due to this. 05/26/24 23:58 Chest Pain MDM - MDM Was pt. sent in by a medical professional or institution (, PA, EDUCATIONAL PSYCHOLOGY TEACHER, urgent care, hospital, or fpc...) When possible be specific @ -No Did you speak to anyone other than the patient for history (EMS, parent, family, police, friend...)? What history was obtained from this source @ -No Did you review nursing and triage notes (agree or disagree)? Why? @ -I reviewed and agree with nursing and triage notes Were old charts reviewed (outside hosp., previous admission, EMS record, old EKG, old radiological studies, urgent care reports/EKG's, fpc records)? Report findings @ -No old charts were reviewed Patient was seen by eggs inspector on 05/24/2024 during recent admission. This note from cardiology does note that echocardiogram obtained during this hospitalization showed ejection fraction of 55 to 60% with mild aortic aortic regurgitation, most recent cardiac cath was in October 2021 revealing stable coronary artery disease with patent vein graft to the left anterior descending artery totally occluded graft stent in the proximal circumflex, patent RCA with mild disease; medical management was recommended ; plan from cardiology notes that acute coronary event had been ruled out, and D-dimer obtained and 0.98 on 05/24/[address] angiogram at that time on 05/20/24 showed mild to moderate atherosclerosis no dissection aneurysm or occlusion. Differential Diagnosis (chest pain, altered mental status, abdominal pain women, abdominal pain men, vaginal bleeding, weakness, fever, dyspnea, syncope, headache, dizziness, GI bleed, back pain, seizure, CVA, palpatations, mental health, musculoskeletal)? @ -Differential Chest Pain: ACS, aortic Dissection, pericarditis, pleurisy, chostochondritis, Musculoskeletal, Esophageal Spasm, GERD, Pancreatitis, Zoster, this is not meant to be an all-inclusive list. EKG interpreted by me (3pts min.). @ -As above X-rays interpreted by me (1pt min.). @ -None done CT interpreted by me (1pt min.). @ CT chest/A/P wo contrast did not show acute process, cardiomegaly, widened mediastinum, consolidations U/S interpreted by me (1pt. min.). @ -None done What testing was considered but not performed or refused? (CT, X-rays, U/S, labs)? Why? @ -Considered CTA dissection study, this was attempted twice however both usable IVs blew when contrast injection was attempted. Patient not significantly hypertensive, D dimer drawn, D dimer lower than prior 0.96 from recent 0.98, V/Q scan ordered; patient has equal pulses in all 4 extremities, on reassessment patient endorses persistent chest pressure/tightness that mildly improves with morphine, however pain mainly present in anterior chest and no longer radiating to back. What meds were considered but not given or refused? Why? @ -None Did you discuss the management of the patient with other professionals (professionals i.e. , PA, EDUCATIONAL PSYCHOLOGY TEACHER, lab, RT, psych nurse, social worker delinquency prevention, preschool assistant teacher, teacher, district resource officer, classification case manager)? Give summary @ -No Was smoking cessation discussed for >3mins.? @ -No Was critical care preformed (if so, how long)? @ -No Were there social determinants of health that impacted care today? How? ( Homelessness, low income, unemployed, alcoholism, drug addiction, transportation, low edu. Level, literacy, decrease access to med. care, long-term, rehab)? @ -No Was there de-escalation of care discussed even if they declined (Discuss DNR or withdrawal of care, Hospice)? @ -No What co-morbidities impacted this encounter? (DM, HTN, Smoking, COPD, CAD, Cancer, CVA, ARF, Chemo, Hep., AIDS, mental health diagnosis, sleep apnea, morbid obesity)? @ -HTN, DM, CAD Was patient admitted / discharged? Hospital course, mention meds given and route, prescriptions, significant lab abnormalities, going to OR and other pertinent info. @ -Hospital course Admitted- Patient is a 53 y/o female presenting today for chest pressure/tightness. States similar to prior [place], recently admitted for the same and discharged approx 2 days river captain after evaluation by cardiology with chest pain suspected to be noncardiac in nature. Pt given ASA and SL nitro river captain without relief. Due to radiation of pain to back, acute aortic syndrome was considered, however BP not significant hypertensive and pain described as pressure/tightness and not tearing, additionally pulses in all 4 extremities 2+ and equal. CT thoracic ordered, US guided IV placed, IV failed with attempted contrast injection, patient was brought back to room, additional ultrasound-guided IV placed, contrast injection was attempted a second time and again IV failed. Patient does still have working IV in left hand for medication administration. On reassessment patient states chest pain is now mainly in front of chest. BP is stable, I have a low suspicion for dissection at this point, D Dimer ordered. Cardiac workup initiated. Patient endorsed slight improvement in pain with morphine so was given additional dose, noted to be sleeping comfortably shortly afterward. Initial Troponin wnl. D Dimer 0.96, so decreased from recent admission when CTA negative. CT chest here shows Atherosclerotic coronary arteries and/or stents. No STEMI or significant changes on EKG. Repeat troponin 0.012, labs otherwise significant for white blood cell count 15.4, otherwise reassuring. On reassessment patient no longer tachycardic, though still somewhat anxious, offered anxiolytic, patient state she takes ativan at home, will administer. Given persistence of CP and patient's hx CAD will admit for observation. Discussed with Dr. Schmitt who kindly accepts for admission. Undiagnosed new problem with uncertain prognosis? @ -No Drug Therapy requiring intensive monitoring for toxicity (Heparin, Nitro, Insulin, Cardizem)? @ -No Were any procedures done? @ -No Diagnosis/symptom? @ -Chest pain Acute, or Chronic, or Acute on Chronic? @ -Acute Uncomplicated (without systemic symptoms) or Complicated (systemic symptoms)? @ -Complicated Side effects of treatment? @ -No Exacerbation, Progression, or Severe Exacerbation? @ -No Poses a threat to life or bodily function? How? (Chest pain, [place], [place], pneumonia, PE, COPD, DKA, ARF, appy, cholecystitis, CVA, Diverticulitis, Homicidal, Suicidal, threat to staff... and all critical care pts) @ -Potentially, secondary to ACS Disposition Clinical Impression: Chest pain Disposition: ADMITTED IP TO THIS HOSP Condition: Stable
[2024-05-26] MEDS: MORPHINE SULFATE 4 MG/ML SYRINGE IV STA (21:21)
[2024-05-26] MEDS: ONDANSETRON 4 MG/2 ML VIAL IVP STA ×2 (21:21→23:33)
[2024-05-26] MEDS: SODIUM CHLORIDE 0.9% 1,000 ML IV STA (21:22)
[2024-05-26 21:27] LABS: Anisocytosis Slight; Basophils # (A) 0.1 k/uL (0-0.2); Basophils % (A) 0 %; Eosinophils # (A) 0.2 k/uL (0-0.7); Eosinophils % (A) 2 %; HCT 39.2 % (34.0-46.0); HGB 12.6 gm/dL (11.4-16.0); Hypochromasia Slight; Lymphocytes # (A) 3.5 k/uL (1.0-4.8); Lymphocytes % (A) 23 %; MCH 27.7 pg (25.0-35.0); MCHC 32.2 g/dL (31.0-37.0); MCV 85.9 fL (80.0-100.0); Mean Platelet Volume 7.8; Monocytes # (A) 0.5 k/uL (0-1.0); Monocytes % (A) 3 %; Neutrophils # (A) 10.9 k/uL (1.3-7.7); Neutrophils % (A) 71 %; Platelet Count 402 k/uL (150-450); RBC 4.57 m/uL (3.80-5.40); RDW 17.2 % (11.5-15.5); WBC 15.4 k/uL (3.8-10.6)
--- NOTE | 2024-05-26 21:30 | CT ---
EXAMINATION TYPE: CT ChestAbdPelvis wo con CT DLP: 924.6 mGycm, Automated exposure control for dose reduction was used. DATE OF EXAM: 05/26/2024 9:19 PM COMPARISON: None. CLINICAL INDICATION: Female, 53 years old with history of Dissection?; PHH, Chest pain substernal rad iating around to the back . pain 10/10 scale. Extensive cardiac history including bypass and several stents. PMH: asthma, COPD, DM, HTN, [place], Technique: CT ChestAbdPelvis wo con; Multiple axial images were obtained. Two-dimensional coronal and sagittal reconstructions were obtained. Contrast used:100 mL of Isovue 370 with IV Contrast, Oral contrast used: without Oral Contrast Findings: CHEST: LUNGS/ PLEURA: No focal consolidation, pneumothorax or pleural effusion. AIRWAY: Patent and unremarkable. HEART: Size within normal limits. High densitywithin the coronary arteries possibly related stents ve rsus atherosclerosis. MEDIASTINUM: No gross evidence of adenopathy. VASCULATURE: No aortic aneurysm. Centimeters skin aorta is within normal limits for size. Scattered moderate atherosclerosis. MUSCULOSKELETAL: No acute osseous abnormalities. SOFT TISSUES/LYMPH NODES: Unremarkable. LOWER NECK: No significant findings. ABDOMEN: ABDOMEN LIVER: Unremarkable GALLBLADDER AND BILE DUCTS: Unremarkable. PANCREAS: Unremarkable. SPLEEN: Unremarkable. ADRENAL GLANDS: Unremarkable. KIDNEYS AND URETERS: No evidence of hydronephrosis or renal calculus. The ureters are unremarkable. PELVIS BLADDER: Unremarkable REPRODUCTIVE: Unremarkable. ABDOMEN & PELVIS STOMACH AND BOWEL: No evidence of bowel obstruction. The appendix is normal. Scattered colonic divert icula. PERITONEUM: No evidence of pneumoperitoneum or free fluid. VASCULATURE: No evidence of aortic aneurysm. MUSCULOSKELETAL: No acute osseous abnormalities LYMPH NODES: No gross evidence for lymphadenopathy. SOFT TISSUE/ABDOMINAL WALL: Unremarkable IMPRESSION: 1. No acute process within the thorax or abdomen and pelvis. 2. Atherosclerotic coronary arteries and/or stents correlate with EKG given patient's symptoms. 3. Scattered colonic diverticula.
[2024-05-26 21:44] LABS: INR 0.9 (<1.2); Prothrombin Time 9.7 sec (10.0-12.5)
[2024-05-26 21:51] LABS: ALT 15 U/L (4-34); AST 20 U/L (14-36); African American GFR (CKD) >90 (>60 ml/min/1.73 sqM); Albumin 4.1 g/dL (3.5-5.0); Alkaline Phosphatase 118 U/L (38-126); Amylase 44 U/L (30-110); Anion Gap 7 mmol/L; Blood Urea Nitrogen 13 mg/dL (7-17); Calcium 9.6 mg/dL (8.4-10.2); Carbon Dioxide 22 mmol/L (22-30); Chloride 110 mmol/L (98-107); Glucose 176 mg/dL (74-99); Lipase 101 U/L (23-300); Non-African American GFR(CKD) 81 (>60 ml/min/1.73 sqM); Potassium 3.7 mmol/L (3.5-5.1); Sodium 139 mmol/L (137-145); Total Bilirubin 0.5 mg/dL (0.2-1.3); Total Protein 6.3 g/dL (6.3-8.2)
[2024-05-26 21:58] LABS: NT-Pro-B-Type Natriuretic Pept 229 pg/mL
[2024-05-26] MEDS: MORPHINE SULFATE 4 MG/ML SYRINGE IVP STA (23:26)
[2024-05-27] MEDS ORDERED: ACETAMINOPHEN TAB 325 MG TAB PO PRN (00:06)
[2024-05-27] MEDS ORDERED: CALCIUM CARBONATE 500 MG CHEWABLE PO PRN (00:06)
[2024-05-27] MEDS ORDERED: HYDROcodone/APAP 5-325MG 1 EACH TAB PO PRN ×2 (00:06→13:29)
[2024-05-27] MEDS ORDERED: MAG HYDROX/AL HYDROX/SIMETH 30 ML CUP PO PRN ×2 (00:06→13:29)
[2024-05-27] MEDS ORDERED: NALOXONE 0.4 MG/ML 1 ML VIAL IV PRN (00:06)
[2024-05-27] MEDS: MORPHINE SULFATE 4 MG/ML SYRINGE IM STA (00:27)
[2024-05-27] MEDS: MORPHINE SULFATE 4 MG/ML SYRINGE IVP STA (00:28)
[2024-05-27] MEDS: ONDANSETRON 4 MG/2 ML VIAL IVP STA (00:28)
[2024-05-27] MEDS: ONDANSETRON 4 MG/2 ML VIAL IM STA (00:28)
[2024-05-27] MEDS: LORazepam 2 MG/ML INJ IV STA (01:27)
[2024-05-27] MEDS: MORPHINE SULFATE 4 MG/ML SYRINGE IV PRN (05:13)
--- NOTE | 2024-05-27 09:15 | NM ---
EXAMINATION TYPE: NM pul vent and perfuse DATE OF EXAM: 05/27/2024 CLINICAL INDICATION: Female, 53 years old with history of elevated D Dimer COMPARISON: NONE TECHNIQUE: Utilizing inhalation of mCi Tc 99m DTPA aerosol and intravenous injection of 5.3 mCi of T c 99m MAA, ventilation and perfusion images are acquired post injection in multiple projections. FINDINGS: Normal radiotracer distribution is noted in the lungs. There is no evidence of mismatched defects. IMPRESSION: Low probability of pulmonary embolism
[2024-05-27] MEDS: FAMOTIDINE 20 MG TAB PO SCH (09:26)
[2024-05-27 09:43] LABS: Glucose,Whole Blood 171 mg/dL (70-110)
[2024-05-27 12:28] LABS: Glucose,Whole Blood 223 mg/dL (70-110)
[2024-05-27] MEDS ORDERED: DEXTROSE 50% SYRINGE 50 ML IVP PRN ×2 (13:25)
[2024-05-27] MEDS ORDERED: ALBUTEROL HFA INHALER INHALATION PRN (13:29)
[2024-05-27] MEDS: ISOSORBIDE MONONITRATE ER 30 MG TAB.ER.24H PO SCH (13:55)
[2024-05-27] MEDS: CLOPIDOGREL 75 MG TAB PO SCH (13:55)
[2024-05-27] MEDS: INSULIN ASPART (NovoLOG) 100 UNIT/ML VIAL SQ SCH (13:55)
--- NOTE | 2024-05-27 15:15 | P.CRDCN ---
History of Present Illness Consult date: 05/27/24 Consult reason: chest pain History of present illness: History of present illness: Patient is a pleasant 53-year-old female with significant past medical history of CAD status post CABG, hypertension, hyperlipidemia, diabetes who presents with chest pain. She follows with a infrastructure administrator in [place]. She has had 2 prior admissions this past week for chest pain. She reports that her chest pain started again yesterday and she tried nitro and rest with no results. She does report that Lyrica and morphine helps her pain. Labs reviewed: WBC 15.4, troponin negative x 3, creatinine 0.82. Echocardiogram was done 05/21/2024 with a EF 55-60%. VQ scan shows low probability of pulmonary embolism. EKG shows sinus tachycardia, nonspecific ST and T wave abnormality. She had prior cardiac catheterization 10/2021 which revealed stable coronary artery disease with patent vein graft to the LAD, total occluded graft to the circumflex but stent in the proximal circumflex is patent, RCA with mild disease. REVIEW OF SYSTEMS: No fever or chills. No cough or expectoration. No diaphoresis. Patient denies headache, dizziness, blurred vision, double vision. Patient denies any stomach discomfort. No nausea, vomiting. No hematochezia. No hematemesis. Denies any black stools or blood in his stools. Denies dysuria or hematuria. No muscle weakness or numbness. Reports chest pain. PHYSICAL EXAMINATION: This is a 53-year-old female in no apparent distress at the time of my examination. HEENT: Head is atraumatic, normocephalic. Pupils are equal, round. Sclerae anicteric. Conjunctivae are clear. Mucous membranes of the mouth are moist. Neck is supple. There is no jugular venous distention. No carotid bruit is heard. CHEST EXAMINATION: Lungs are clear to auscultation. No chest wall tenderness is noted on palpation or with deep breathing. HEART EXAMINATION: Heart regular rate and rhythm. S1, S2 heard. No murmurs, gallops or rub. ABDOMEN: Soft, nontender. Bowel sounds are heard. No organomegaly noted. EXTREMITIES: 2+ peripheral pulses with no evidence of peripheral edema and no calf tenderness noted. NEUROLOGIC EXAMINATION: Patient is awake, alert and oriented x3. IMPRESSION AND PLAN: CAD with prior two-vessel CABG in 2008 Chest pain Hypertension Hyperlipidemia Diabetes type 2 PLAN: She has now had 3 admissions in the past 1 week related to chest pain. VQ scan low probability of a PE. Echo with preserved EF. Will check Lexiscan stress test to rule out inducible ischemia. Further recommendations pending patient's clinical course. I am dictating on behalf of Dr. Genaro Guerra's history/physical and assessment/plan. Past Medical History Past Medical History: Asthma, Coronary Artery Disease (CAD), COPD, Diabetes Mellitus, GERD/Reflux, Hypertension, Myocardial Infarction ([place]), Osteoarthritis (OA) Additional Past Medical History / Comment(s): DDD, scoliosis Last Myocardial Infarction Date:: 2011 History of Any Multi-Drug Resistant Organisms: None Reported Past Surgical History: Coronary Bypass/CABG, Heart Catheterization With Stent Additional Past Surgical History / Comment(s): seven stents Past Anesthesia/Blood Transfusion Reactions: No Reported Reaction Date of Last Stent Placement:: 11/2018 Past Psychological History: Anxiety, Bipolar Smoking Status: Current every day smoker Past Alcohol Use History: None Reported Past Drug Use History: Marijuana - Past Family History Mother Family Medical History: Cancer Additional Family Medical History / Comment(s): Ovarian cancer Father Family Medical History: Congestive Heart Failure (CHF) Fmily Family Medical History: No Reported History Medications and Allergies Home Medications Medication Instructions Recorded Confirmed Type Atorvastatin [Lipitor] 80 mg PO DAILY 07/08/20 05/27/24 History Ranolazine [Ranexa] 1,000 mg PO BID 11/13/21 05/27/24 History Albuterol Inhaler [Ventolin Hfa 2 puff INHALATION RT-QID PRN 03/27/23 05/27/24 History Inhaler] Aspirin EC [Ecotrin Low Dose] 81 mg PO DAILY 03/27/23 05/27/24 History Budesonide/Formoterol Fumarate 2 puff INHALATION RT-BID 03/27/23 05/27/24 History [Symbicort 160-4.5 Mcg Inhaler] Clopidogrel [Plavix] 75 mg PO DAILY 03/27/23 05/27/24 History Metoprolol Tartrate [Lopressor] 50 mg PO BID 03/27/23 05/27/24 History Nitroglycerin Sl Tabs [Nitrostat] 0.4 mg SL Q5M PRN 03/27/23 05/27/24 History Omeprazole 40 mg PO BID 03/27/23 05/27/24 History Ondansetron [Zofran] 4 mg PO TID PRN 03/27/23 05/27/24 History Pregabalin [Lyrica] 150 mg PO TID 03/27/23 05/27/24 History amLODIPine [Norvasc] 10 mg PO DAILY 03/27/23 05/27/24 History metFORMIN HCL 1,000 mg PO BID 03/27/23 05/27/24 History rOPINIRole HCL [Requip] 1 mg PO HS 03/27/23 05/27/24 History ALPRAZolam [Xanax] 0.5 mg PO BID PRN 06/22/23 05/27/24 History Dapagliflozin Propanediol [Farxiga] 5 mg PO DAILY 03/16/24 05/27/24 History Dulaglutide [Trulicity] 3 mg SQ WE 03/16/24 05/27/24 History HYDROcodone/APAP 5-325MG [[place] 1 tab PO BID PRN 03/16/24 05/27/24 History 5-325] Insulin Lispro [humaLOG Kwikpen] See Protocol SQ AC-TID 03/16/24 05/27/24 History Ipratropium-Albuterol Nebulize 3 ml INHALATION RT-TID 03/16/24 05/27/24 History [Duoneb 0.5 mg-3 mg/3 ml Soln] Isosorbide Mononitrate ER [Imdur] 30 mg PO DAILY 03/16/24 05/27/24 History Mag Hydrox/Al Hydrox/Simeth 30 ml PO QID PRN 2 Days #180 ml 05/22/24 05/27/24 Rx [Maalox] Spiriva Respimat 1.25mcg/Actuation 2 puff INHALATION RT-DAILY 05/24/24 05/27/24 History Mist methylPREDNISolone Dose Pack See Taper PO DIRECTED 05/24/24 05/27/24 History [Medrol Dose Pack] Allergies Allergy/AdvReac Type Severity Reaction Status Date / Time No Known Allergies Allergy Verified 05/27/24 11:54 Physical Exam Vitals: Vital Signs Temp Pulse Pulse Resp BP BP Pulse Ox 05/27/24 07:00 98.2 F 92 17 132/84 94 L 05/27/24 01:58 98 18 05/27/24 01:25 88 18 119/72 95 05/27/24 01:12 97.8 F 98 19 156/88 95 05/27/24 00:52 95 18 152/99 95 05/27/24 00:07 72 18 100 05/26/24 23:22 96 18 153/91 100 05/26/24 21:31 93 18 130/93 95 05/26/24 20:15 98.7 F 114 H 18 145/92 98 05/26/24 20:07 116 H 18 145/92 98 Intake and Output 05/26/24 05/27/24 05/27/24 22:59 06:59 14:59 Other: Voiding Method Toilet # Voids 1 Weight 92.986 kg 92.986 kg Results 05/26/24 21:00 05/26/24 21:00 Cardiac Enzymes 05/26/24 05/26/24 05/26/24 Range/Units 21:00 21:00 23:39 AST 20 (14-36) U/L Troponin I <0.012 <0.012 (0.000-0.034) ng/mL 05/27/24 Range/Units 05:40 AST (14-36) U/L Troponin I <0.012 (0.000-0.034) ng/mL Coagulation 05/26/24 Range/Units 21:00 PT 9.7 L (10.0-12.5) sec APTT 22.0 (22.0-30.0) sec CBC 05/26/24 Range/Units 21:00 WBC 15.4 H (3.8-10.6) k/uL RBC 4.57 (3.80-5.40) m/uL Hgb 12.6 (11.4-16.0) gm/dL Hct 39.2 (34.0-46.0) % Plt Count 402 (150-450) k/uL Comprehensive Metabolic Panel 05/26/24 Range/Units 21:00 Sodium 139 (137-145) mmol/L Potassium 3.7 (3.5-5.1) mmol/L Chloride 110 H (98-107) mmol/L Carbon Dioxide 22 (22-30) mmol/L BUN 13 (7-17) mg/dL Creatinine 0.82 (0.52-1.04) mg/dL Glucose 176 H (74-99) mg/dL Calcium 9.6 (8.4-10.2) mg/dL AST 20 (14-36) U/L ALT 15 (4-34) U/L Alkaline Phosphatase 118 (38-126) U/L Total Protein 6.3 (6.3-8.2) g/dL Albumin 4.1 (3.5-5.0) g/dL Current Medications Generic Name Dose Route Start Last Admin Trade Name Freq PRN Reason Stop Dose Admin Acetaminophen 650 mg 05/27/24 00:06 Acetaminophen Tab 325 Mg Tab PO Q6HR PRN Mild Pain or Fever > 100.5 Hydrocodone Bitart/Acetaminophen 1 each 05/27/24 00:06 Hydrocodone/Apap 5-325mg 1 Each Tab PO Q6HR PRN Moderate Pain (Scale 4 to 6) Al Hydroxide/Mg Hydroxide 15 ml 05/27/24 00:06 Mag Hydrox/Al Hydrox/Simeth 30 Ml Cup PO Q6HR PRN Indigestion Calcium Carbonate/Glycine 1,000 mg 05/27/24 00:06 Calcium Carbonate 500 Mg Chewable PO Q4HR PRN Dyspepsia Famotidine 20 mg 05/27/24 09:00 Famotidine 20 Mg Tab PO BID AMANDA Morphine Sulfate 4 mg 05/27/24 00:06 05/27/24 05:13 Morphine Sulfate 4 Mg/Ml Syringe IV 4 mg Q4HR PRN Administration Severe Pain (Scale 7 to 10) Naloxone HCl 0.2 mg 05/27/24 00:06 Naloxone 0.4 Mg/Ml 1 Ml Vial IV Q2M PRN Opioid Reversal Ondansetron HCl 4 mg 05/27/24 00:06 Ondansetron 4 Mg/2 Ml Vial IVP Q8HR PRN Nausea And Vomiting Intake and Output 05/26/24 05/27/24 05/27/24 22:59 06:59 14:59 Other: Voiding Method Toilet # Voids 1 Weight 92.986 kg 92.986 kg 05/26/24 21:00 05/26/24 21:00
[2024-05-27] MEDS: PREGABALIN 75 MG CAP PO SCH (16:27)
[2024-05-27 16:58] LABS: Appearance,Urine Clear (Clear); Bilirubin,Urine Negative (Negative); Blood,Urine Negative (Negative); Color,Urine Colorless; Glucose,Urine (UA) Trace (Negative); Ketones,Urine Negative (Negative); Leukocyte Esterase,Urine Negative (Negative); Nitrite,Urine Negative (Negative); PH, Urine 6.5 (5.0-8.0); Protein,Urine Negative (Negative); Specific Gravity,Urine 1.011 (1.001-1.035); Urobilinogen,Urine <2.0 mg/dL (<2.0)
[2024-05-27 17:15] LABS: Glucose,Whole Blood 116 mg/dL (70-110)
[2024-05-27] MEDS: SYMBICORT 160-4.5 MCG INHALER INHALATION SCH (18:41)
[2024-05-27] MEDS: IPRATROPIUM-ALBUTEROL 3 ML NEB INHALATION SCH (18:41)
[2024-05-27 20:36] LABS: Glucose,Whole Blood 138 mg/dL (70-110)
[2024-05-27] MEDS: METOPROLOL TARTRATE 50 MG TAB PO SCH (21:53)
[2024-05-27] MEDS: RANOLAZINE 500 MG TAB.ER.12H PO SCH (21:54)
--- NOTE | 2024-05-27 21:56 | P.HPIM ---
History of Present Illness H&P Date: 05/27/24 Chief Complaint: Chest pain Patient is a 52-year-old female with a past medical history of coronary artery disease status post CABG, cardiac catheterization and stent placement, hypertension, hyperlipidemia, diabetes type 2 insulin-dependent, history of [place], osteoarthritis, anxiety/bipolar disorder and currently everyday smoker and marijuana use. Patient presents to ER with complaints of chest pain. Patient states that her pain started again yesterday, mainly left retrosternal. And radiating to the left arm. Patient did take nitro without improvement. She was able to take Lyrica and morphine which seemed to improve her pain. Patient has 2 previous admissions with similar complaints during this past week. Patient follows with cardiology at [facility]. Patient had recent echocardiogram done showed ejection fraction 55 to 60%. Denied any fever or chills. No cough or sputum production. No leg swelling. CT of the abdomen pelvis and chest done in the ER showed no acute process within the thorax or abdominal pelvis. There was sclerotic coronary artery disease and stents correlate with EKG given patient's symptoms. Gated colonic diverticula. EKG showed sinus tachycardia. VQ scan showed low probability for PE. Laboratory data showed WBC 15.4 hemoglobin 12.6 and platelets 402 D-dimer 0.96 Sodium 139 potassium 3.7 chloride 110 bicarb is 22 BUN 39 creatinine 0.8 and blood sugar 176 Troponin x 3 negative liver enzymes are not elevated proBNP 229 lipase 101 urinalysis is negative for infection. Review of Systems Constitutional: Patient denies any fever or chills . No generalized weakness or weight loss. Abdomen: Patient denied nausea vomiting and diarrhea and abdominal pain. Cardiovascular: Patient denies any chest pain or short of breath no palpitations. Respiratory: patient denied any cough or sputum production. No shortness of breath Neurologic: Patient denied any numbness or tingling. no headache. Musculoskeletal: Patient denies any complaints of joint swelling or deformity. Skin: Negative Psychiatric: Negative Endocrine: No heat or cold intolerance. No recent weight gain. Genitourinary: No dysuria or hematuria. All other 14 point ROS negative except the above Past Medical History Past Medical History: Asthma, Coronary Artery Disease (CAD), COPD, Diabetes Mellitus, GERD/Reflux, Hypertension, Myocardial Infarction (GA), Osteoarthritis (OA) Additional Past Medical History / Comment(s): DDD, scoliosis Last Myocardial Infarction Date:: 2011 History of Any Multi-Drug Resistant Organisms: None Reported Past Surgical History: Coronary Bypass/CABG, Heart Catheterization With Stent Additional Past Surgical History / Comment(s): seven stents Past Anesthesia/Blood Transfusion Reactions: No Reported Reaction Date of Last Stent Placement:: 11/2018 Past Psychological History: Anxiety, Bipolar Smoking Status: Current every day smoker Past Alcohol Use History: None Reported Past Drug Use History: Marijuana - Past Family History Mother Family Medical History: Cancer Additional Family Medical History / Comment(s): Ovarian cancer Father Family Medical History: Congestive Heart Failure (CHF) Fmily Family Medical History: No Reported History Medications and Allergies Home Medications Medication Instructions Recorded Confirmed Type Atorvastatin [Lipitor] 80 mg PO DAILY 07/08/20 05/27/24 History Ranolazine [Ranexa] 1,000 mg PO BID 11/13/21 05/27/24 History Albuterol Inhaler [Ventolin Hfa 2 puff INHALATION RT-QID PRN 03/27/23 05/27/24 History Inhaler] Aspirin EC [Ecotrin Low Dose] 81 mg PO DAILY 03/27/23 05/27/24 History Budesonide/Formoterol Fumarate 2 puff INHALATION RT-BID 03/27/23 05/27/24 History [Symbicort 160-4.5 Mcg Inhaler] Clopidogrel [Plavix] 75 mg PO DAILY 03/27/23 05/27/24 History Metoprolol Tartrate [Lopressor] 50 mg PO BID 03/27/23 05/27/24 History Nitroglycerin Sl Tabs [Nitrostat] 0.4 mg SL Q5M PRN 03/27/23 05/27/24 History Omeprazole 40 mg PO BID 03/27/23 05/27/24 History Ondansetron [Zofran] 4 mg PO TID PRN 03/27/23 05/27/24 History Pregabalin [Lyrica] 150 mg PO TID 03/27/23 05/27/24 History amLODIPine [Norvasc] 10 mg PO DAILY 03/27/23 05/27/24 History metFORMIN HCL 1,000 mg PO BID 03/27/23 05/27/24 History rOPINIRole HCL [Requip] 1 mg PO HS 03/27/23 05/27/24 History ALPRAZolam [Xanax] 0.5 mg PO BID PRN 06/22/23 05/27/24 History Dapagliflozin Propanediol [Farxiga] 5 mg PO DAILY 03/16/24 05/27/24 History Dulaglutide [Trulicity] 3 mg SQ WE 03/16/24 05/27/24 History HYDROcodone/APAP 5-325MG [[place] 1 tab PO BID PRN 03/16/24 05/27/24 History 5-325] Insulin Lispro [humaLOG Kwikpen] See Protocol SQ AC-TID 03/16/24 05/27/24 History Ipratropium-Albuterol Nebulize 3 ml INHALATION RT-TID 03/16/24 05/27/24 History [Duoneb 0.5 mg-3 mg/3 ml Soln] Isosorbide Mononitrate ER [Imdur] 30 mg PO DAILY 03/16/24 05/27/24 History Mag Hydrox/Al Hydrox/Simeth 30 ml PO QID PRN 2 Days #180 ml 05/22/24 05/27/24 Rx [Maalox] Spiriva Respimat 1.25mcg/Actuation 2 puff INHALATION RT-DAILY 05/24/24 05/27/24 History Mist methylPREDNISolone Dose Pack See Taper PO DIRECTED 05/24/24 05/27/24 History [Medrol Dose Pack] Allergies Allergy/AdvReac Type Severity Reaction Status Date / Time No Known Allergies Allergy Verified 05/27/24 11:54 Physical Exam Vitals: Vital Signs Temp Pulse Pulse Resp BP BP Pulse Ox 05/27/24 07:00 98.2 F 92 17 132/84 94 L 05/27/24 01:58 98 18 05/27/24 01:25 88 18 119/72 95 05/27/24 01:12 97.8 F 98 19 156/88 95 05/27/24 00:52 95 18 152/99 95 05/27/24 00:07 72 18 100 05/26/24 23:22 96 18 153/91 100 05/26/24 21:31 93 18 130/93 95 05/26/24 20:15 98.7 F 114 H 18 145/92 98 05/26/24 20:07 116 H 18 145/92 98 Intake and Output 05/26/24 05/27/24 05/27/24 22:59 06:59 14:59 Other: Voiding Method Toilet # Voids 1 Weight 92.986 kg 92.986 kg PHYSICAL EXAMINATION: Patient is lying in the bed comfortably, no acute distress, awake alert and oriented.. HEENT: Normocephalic. Neck is supple. Pupils reactive. Nostrils clear. Oral cavity is moist. Neck reveals no JVD, carotid bruits, or thyromegaly. CHEST EXAMINATION: Trachea is central. Symmetrical expansion. Lung yeung clear to auscultation and percussion. CARDIAC: Normal S1, S2 with no gallops. No murmurs ABDOMEN: Soft. Bowel sounds normal. No organomegaly. No abdominal bruits. Extremities: reveal no edema. No clubbing or cyanosis Neurologically awake, alert, oriented x3 with well-coordinated movements. No focal deficits noted Skin: No rash or skin lesions. Psychiatric: Coperative. Nonsuicidal Musculoskeletal: No joint swelling or deformity. Normal range of motion. Results CBC & Chem 7: 05/26/24 21:00 05/26/24 21:00 Labs: Abnormal Lab Results - Last 24 Hours (Table) 05/26/24 05/26/24 05/26/24 Range/Units 21:00 21:00 21:00 WBC 15.4 H (3.8-10.6) k/uL RDW 17.2 H (11.5-15.5) % Neutrophils # 10.9 H (1.3-7.7) k/uL PT 9.7 L (10.0-12.5) sec D-Dimer (<0.60) mg/L FEU Chloride 110 H (98-107) mmol/L Glucose 176 H (74-99) mg/dL POC Glucose (mg/dL) (70-110) mg/dL 05/26/24 05/27/24 05/27/24 Range/Units 21:00 09:41 12:26 WBC (3.8-10.6) k/uL RDW (11.5-15.5) % Neutrophils # (1.3-7.7) k/uL PT (10.0-12.5) sec D-Dimer 0.96 H (<0.60) mg/L FEU Chloride (98-107) mmol/L Glucose (74-99) mg/dL POC Glucose (mg/dL) 171 H 223 H (70-110) mg/dL Thrombosis Risk Factor Assmnt - DVT/VTE Prophylaxis DVT/VTE Prophylaxis: Pharmacologic Prophylaxis ordered - Choose All That Apply Any of the Below Risk Factors Present?: Yes Each Factor Represents 1 point: Abnormal pulmonary function (COPD), Age 41-60 years, Obesity (BMI >25) Other Risk Factors: No Other congenital or acquired thrombophilia - If yes, enter type in comment: No Thrombosis Risk Factor Assessment Total Risk Factor Score: 3 Thrombosis Risk Factor Assessment Level: Moderate Risk Assessment and Plan Assessment: Atypical chest pain. Ruled out ACS. Elevated D-dimer level. VQ scan is low probability of PE Leukocytosis likely reactive. Chest x-ray and UA negative. Coronary artery disease with history of CABG and prior stent placement Hypertension Hyperlipidemia GERD Diabetes type 2 insulin-dependent Anxiety/bipolar disorder Marijuana use DVT prophylaxis none GI prophylaxis with heparin subcu and Pepcid. Plan: Patient will be continued on telemonitoring. Continue with aspirin, statins, Plavix and metoprolol. Patient is also on Farxiga which is being continued. Current with insulin regimen and sliding scale. Follow-up repeat CBC and BMP VQ scan showed low probability of PE. 2D echocardiogram showed preserved ejecti on fraction. Cardiology is planning for likely stress test rule out inducible ischemia. Will continue with pain management and follow-up closely. Time with Patient: Greater than 30
[2024-05-28] MEDS: HEPARIN SODIUM,PORCINE 5,000 UNIT/ML 1 ML VIAL SQ SCH (00:05)
[2024-05-28 05:51] LABS: Glucose,Whole Blood 120 mg/dL (70-110)
[2024-05-28] MEDS ORDERED: CAFFEINE CITRATE 60 MG/3 ML VIAL IV PRN (06:00)
[2024-05-28] MEDS ORDERED: REGADENOSON 0.4 MG/5 ML SYRINGE IV PRN (06:00)
[2024-05-28] MEDS ORDERED: AMINOPHYLLINE 500 MG/20 ML VIAL IV PRN (06:00)
[2024-05-28] MEDS ORDERED: SPIRIVA RESPIMAT INHALATION SCH (08:00)
[2024-05-28] MEDS ORDERED: MIST INHALATION SCH (08:00)
[2024-05-28 08:55] LABS: Basophils # (A) 0.05 X 10*3/uL (0.00-0.10); Basophils % (A) 0.4 %; Eosinophils % (A) 0.8 %; HCT 36.5 % (37.2-46.3); HGB 11.4 g/dL (12.0-15.0); Lymphocytes # (A) 3.87 X 10*3/uL (0.90-5.00); Lymphocytes % (A) 29.9 %; MCH 27.5 pg (27.0-32.0); MCHC 31.2 g/dL (32.0-37.0); MCV 88.2 FL (80.0-97.0); Mean Platelet Volume 10.8 FL (9.5-12.2); Monocytes % (A) 6.9 %; NRBC Per 100 WBC 0 X 10*3/uL (0.00-0.01); Neutrophils # (A) 7.94 X 10*3/uL (1.80-7.70); Neutrophils % (A) 61.3 %; Platelet Count 381 X 10*3/uL (140-440); RBC 4.14 X 10*6/uL (4.10-5.20); WBC 12.95 X 10*3/uL (4.50-10.00)
[2024-05-28] MEDS: DAPAGLIFLOZIN PROPANEDIOL 5 MG TABLET PO SCH (09:23)
[2024-05-28] MEDS: ATORVASTATIN 80 MG TAB PO SCH (09:23)
[2024-05-28] MEDS: ASPIRIN 81 MG PO SCH (09:23)
[2024-05-28] MEDS: amLODIPine 10 MG TAB PO SCH (09:23)
[2024-05-28] MEDS ORDERED: DOBUTamine DRIP for NUC MED 500 MG in DEXTROSE/WATER 1 250ML.BAG IV PRN ×2 (09:26→09:34)
[2024-05-28] MEDS: ALPRAZolam 0.5 MG TAB PO PRN (09:35)
[2024-05-28 10:58] LABS: BUN/Creat Ratio 17.67 Ratio (12.00-20.00); Blood Urea Nitrogen 15.9 mg/dL (9.0-27.0); Calcium 9.2 mg/dL (8.7-10.3); Carbon Dioxide 23.1 mmol/L (21.6-31.8); Chloride 110 mmol/L (96-109); Glucose 125 mg/dL (70-110); Potassium 4.4 mmol/L (3.5-5.5); Sodium 143 mmol/L (135-145)
[2024-05-28 11:00] LABS: Glucose,Whole Blood 109 mg/dL (70-110)
[2024-05-28 12:44] LABS: Glucose,Whole Blood 112 mg/dL (70-110)
--- NOTE | 2024-05-28 12:55 | P.PN ---
Subjective Progress Note Date: 05/28/24 Consult reason: chest pain History of present illness: History of present illness: Patient is a pleasant 53-year-old female with significant past medical history of CAD status post CABG, hypertension, hyperlipidemia, diabetes who presents with chest pain. She follows with a global regulatory affairs manager in [place]. She has had 2 prior admissions this past week for chest pain. She reports that her chest pain started again yesterday and she tried nitro and rest with no results. She does report that Lyrica and morphine helps her pain. Labs reviewed: WBC 15.4, tr oponin negative x 3, creatinine 0.82. Echocardiogram was done 05/21/2024 with a EF 55-60%. VQ scan shows low probability of pulmonary embolism. EKG shows sinus tachycardia, nonspecific ST and T wave abnormality. She had prior cardiac catheterization 10/2021 which revealed stable coronary artery disease with patent vein graft to the LAD, total occluded graft to the circumflex but stent in the proximal circumflex is patent, RCA with mild disease. 05/28 Patient is seen today in follow-up. She denies having any chest pain no shortness of breath, no palpitations. She underwent a VQ scan which was low probability for PE but because of this test, Lexiscan needs to be delayed until . She is agreeable to undergo dobutamine echocardiogram which we will schedule for tomorrow as patient has eaten this morning. Blood pressure 125/85, heart rate 70, pulse ox 91 to 95% on room air. Repeat blood work reveals WBC 12.9, hemoglobin 9.4, platelet count 381. Sodium 143, potassium 4.4, creatinine 0.9. Troponins negative x 4 specimens. PHYSICAL EXAMINATION: This is a 53-year-old female in no apparent distress at the time of my examination. HEENT: Head is atraumatic, normocephalic. Pupils are equal, round. Sclerae anicteric. Conjunctivae are clear. Mucous membranes of the mouth are moist. Neck is supple. There is no jugular venous distention. No carotid bruit is heard. CHEST EXAMINATION: Lungs are clear to auscultation. No chest wall tenderness is noted on palpation or with deep breathing. HEART EXAMINATION: Heart regular rate and rhythm. S1, S2 heard. No murmurs, gallops or rub. ABDOMEN: Soft, nontender. Bowel sounds are heard. No organomegaly noted. EXTREMITIES: 2+ peripheral pulses with no evidence of peripheral edema and no calf tenderness noted. NEUROLOGIC EXAMINATION: Patient is awake, alert and oriented x3. IMPRESSION AND PLAN: CAD with prior two-vessel CABG in 2008 Atypical chest pain, acute coronary syndrome ruled out with negative troponins Hypertension Hyperlipidemia Diabetes type 2 PLAN: Continue current cardiac medications Schedule patient for dobutamine echocardiogram tomorrow If testing is unremarkable, patient will be cleared for discharge tomorrow. Patient will follow-up with her primary global regulatory affairs manager in 1 to 2 weeks. Nurse practitioner note has been reviewed, I agree with documented findings and plan of care. Patient was seen and examined. Objective - Vital Signs Vital signs: Vital Signs Temp 98.4 F 05/28/24 01:46 Pulse 75 05/28/24 01:46 Resp 18 05/28/24 01:46 BP 119/74 05/28/24 01:46 Pulse Ox 95 05/28/24 01:46 FiO2 Intake & Output 05/27/24 05/28/24 05/28/24 18:59 06:59 18:59 Intake Total 120 Balance 120 Intake: Oral 120 Other: Voiding Method Toilet # Voids 2 2 - Labs CBC & Chem 7: 05/28/24 05:43 05/28/24 05:43 Labs: Abnormal Lab Results - Last 24 Hours (Table) 05/27/24 05/27/24 05/27/24 Range/Units 09:41 12:26 16:31 WBC (4.50-10.00) X 10*3/uL Hgb (12.0-15.0) g/dL Hct (37.2-46.3) % MCHC (32.0-37.0) g/dL RDW (11.5-14.5) % Immature Gran # (0.00-0.04) X 10*3/uL Neutrophils # (1.80-7.70) X 10*3/uL POC Glucose (mg/dL) 171 H 223 H (70-110) mg/dL Urine Glucose (UA) Trace H (Negative) 05/27/24 05/27/24 05/28/24 Range/Units 17:14 20:35 05:43 WBC 12.95 H (4.50-10.00) X 10*3/uL Hgb 11.4 L (12.0-15.0) g/dL Hct 36.5 L (37.2-46.3) % MCHC 31.2 L (32.0-37.0) g/dL RDW 18.0 H (11.5-14.5) % Immature Gran # 0.09 H (0.00-0.04) X 10*3/uL Neutrophils # 7.94 H (1.80-7.70) X 10*3/uL POC Glucose (mg/dL) 116 H 138 H (70-110) mg/dL Urine Glucose (UA) (Negative) 05/28/24 Range/Units 05:49 WBC (4.50-10.00) X 10*3/uL Hgb (12.0-15.0) g/dL Hct (37.2-46.3) % MCHC (32.0-37.0) g/dL RDW (11.5-14.5) % Immature Gran # (0.00-0.04) X 10*3/uL Neutrophils # (1.80-7.70) X 10*3/uL POC Glucose (mg/dL) 120 H (70-110) mg/dL Urine Glucose (UA) (Negative)
[2024-05-28 17:19] LABS: Glucose,Whole Blood 155 mg/dL (70-110)
[2024-05-28] MEDS: TRIAMCINOLONE ACET 0.1% OINTMENT 15 GM TUBE TOPICAL SCH (20:17)
[2024-05-28] MEDS: ONDANSETRON 4 MG/2 ML VIAL IVP PRN (20:17)
[2024-05-28 20:24] LABS: Glucose,Whole Blood 118 mg/dL (70-110)
[2024-05-28] MEDS ORDERED: SENNOSIDES 8.6 MG TAB PO PRN (23:41)
--- NOTE | 2024-05-28 23:44 | P.PN ---
Subjective Progress Note Date: 05/28/24 Patient is a 52-year-old female with a past medical history of coronary artery disease status post CABG, cardiac catheterization and stent placement, hypertension, hyperlipidemia, diabetes type 2 insulin-dependent, history of [place], osteoarthritis, anxiety/bipolar disorder and currently everyday smoker and marijuana use. Patient presents to ER with complaints of chest pain. Patient states that her pain started again yesterday, mainly left retrosternal. And radiating to the left arm. Patient did take nitro without improvement. She was able to take Lyrica and morphine which seemed to improve her pain. Patient has 2 previous admissions with similar complaints during this past week. Patient follows with cardiology at [facility]. Patient had recent echocardiogram done showed ejection fraction 55 to 60%. Denied any fever or chills. No cough or sputum production. No leg swelling. CT of the abdomen pelvis and chest done in the ER showed no acute process within the thorax or abdominal pelvis. There was sclerotic coronary artery disease and stents correlate with EKG given patient's symptoms. Gated colonic diverticula. EKG showed sinus tachycardia. VQ scan showed low probability for PE. Laboratory data showed WBC 15.4 hemoglobin 12.6 and platelets 402 D-dimer 0.96 Sodium 139 potassium 3.7 chloride 110 bicarb is 22 BUN 39 creatinine 0.8 and blood sugar 176 Troponin x 3 negative liver enzymes are not elevated proBNP 229 lipase 101 urinalysis is negative for infection. 05/28/2024 Patient is complaining of pain in the upper abdomen radiating to the back. Denied any chest pain. Denied any shortness of breath. Patient has been afebrile. CT of the abdomen pelvis and chest was done in the ER showed no acute process. Lipase and amylase levels within normal limits on admission. Laboratory WBC 12.9 hemoglobin 11.4 and platelets 381 RDW 18.0, sodium 143 potassium 4.4 chloride 110 bicarb is 23.1 BUN 15.9 and creatinine 0.9 and blood sugar is 128 hide and calcium 9.2. Urinalysis is negative for infection. Ultrasound of abdomen was ordered and follow-up repeat CMP. Patient is being continued on PPI. Patient is scheduled for Lexiscan on since patient had VQ scan yesterday. Blood pressure is stable. Patient is on room air. Current medications reviewed. Objective - Vital Signs Vital signs: Vital Signs Temp 98.8 F 05/28/24 07:00 Pulse 76 05/28/24 12:09 Resp 16 05/28/24 07:00 BP 125/85 05/28/24 07:00 Pulse Ox 91 L 05/28/24 07:00 FiO2 Intake & Output 05/27/24 05/28/24 05/28/24 18:59 06:59 18:59 Intake Total 120 Balance 120 Intake: Oral 120 Other: Voiding Method Toilet # Voids 2 2 - Exam PHYSICAL EXAMINATION: Patient is lying in the bed comfortably, no acute distress, awake alert and oriented.. HEENT: Normocephalic. Neck is supple. Pupils reactive. Nostrils clear. Oral cavity is moist. Neck reveals no JVD, carotid bruits, or thyromegaly. CHEST EXAMINATION: Trachea is central. Symmetrical expansion. Lung yeung clear to auscultation and percussion. CARDIAC: Normal S1, S2 with no gallops. No murmurs ABDOMEN: Soft. Bowel sounds present. Mild epigastric tenderness.. No o rganomegaly. No abdominal bruits. Extremities: reveal no edema. No clubbing or cyanosis Neurologically awake, alert, oriented x3 with well-coordinated movements. No focal deficits noted Skin: No rash or skin lesions. Psychiatric: Coperative. Nonsuicidal Musculoskeletal: No joint swelling or deformity. Normal range of motion. - Labs CBC & Chem 7: 05/29/24 02:30 05/29/24 02:30 Labs: Abnormal Lab Results - Last 24 Hours (Table) 05/27/24 05/27/24 05/27/24 Range/Units 16:31 17:14 20:35 WBC (4.50-10.00) X 10*3/uL Hgb (12.0-15.0) g/dL Hct (37.2-46.3) % MCHC (32.0-37.0) g/dL RDW (11.5-14.5) % Immature Gran # (0.00-0.04) X 10*3/uL Neutrophils # (1.80-7.70) X 10*3/uL Chloride (96-109) mmol/L Glucose (70-110) mg/dL POC Glucose (mg/dL) 116 H 138 H (70-110) mg/dL Urine Glucose (UA) Trace H (Negative) 05/28/24 05/28/24 05/28/24 Range/Units 05:43 05:43 05:49 WBC 12.95 H (4.50-10.00) X 10*3/uL Hgb 11.4 L (12.0-15.0) g/dL Hct 36.5 L (37.2-46.3) % MCHC 31.2 L (32.0-37.0) g/dL RDW 18.0 H (11.5-14.5) % Immature Gran # 0.09 H (0.00-0.04) X 10*3/uL Neutrophils # 7.94 H (1.80-7.70) X 10*3/uL Chloride 110 H (96-109) mmol/L Glucose 125 H (70-110) mg/dL POC Glucose (mg/dL) 120 H (70-110) mg/dL Urine Glucose (UA) (Negative) 05/28/24 Range/Units 12:43 WBC (4.50-10.00) X 10*3/uL Hgb (12.0-15.0) g/dL Hct (37.2-46.3) % MCHC (32.0-37.0) g/dL RDW (11.5-14.5) % Immature Gran # (0.00-0.04) X 10*3/uL Neutrophils # (1.80-7.70) X 10*3/uL Chloride (96-109) mmol/L Glucose (70-110) mg/dL POC Glucose (mg/dL) 112 H (70-110) mg/dL Urine Glucose (UA) (Negative) Assessment and Plan Assessment: Atypical chest pain. Ruled out ACS. Elevated D-dimer level. VQ scan is low probability of PE Leukocytosis likely reactive. Chest x-ray and UA negative. WBC trending down. Epigastric abdominal pain Coronary artery disease with history of CABG and prior stent placement Hypertension Hyperlipidemia GERD Diabetes type 2 insulin-dependent Anxiety/bipolar disorder Marijuana use DVT prophylaxis none GI prophylaxis with heparin subcu and Pepcid. GI prophylaxis PPI Plan: Patient will be continued on telemonitoring. Continue with aspirin, statins, Plavix and metoprolol. Patient is also on Farxiga which is being continued. Current with insulin regimen and sliding scale. Follow-up repeat CBC and CMP. VQ scan showed low probability of PE. 2D echocardiogram showed preserved ejection fraction. Cardiology is planning for Lexiscan stress test rule out inducible ischemia which is postponed until due to patient had VQ scan. Consider repeat abdominal imaging if continues to have pain and general surgery/GI evaluation.. Ultrasound abdominal/gallbladder was ordered. Continue with PPI. Follow-up closely. Time with Patient: Greater than 30
[2024-05-29] MEDS: PANTOPRAZOLE 40 MG TABLET PO SCH (00:04)
[2024-05-29] MEDS: SODIUM CHLORIDE 0.45% 1,000 ML IV SCH (00:09)
[2024-05-29] MEDS ORDERED: DOBUTamine DRIP for NUC MED 500 MG in DEXTROSE/WATER 1 250ML.BAG IV PRN (06:00)
[2024-05-29 06:07] LABS: Glucose,Whole Blood 132 mg/dL (70-110)
[2024-05-29] MEDS ORDERED: DOBUTamine DRIP for NUC MED 500 MG/250 ML BAG IV ONE (08:00)
--- NOTE | 2024-05-29 08:13 | US ---
EXAMINATION TYPE: US gallbladder DATE OF EXAM: 05/29/2024 COMPARISON: 05/26/2024 CLINICAL INDICATION: Female, 53 years old with history of Abdominal pain; Pain x 2 years with recent increase 1-2 weeks. TECHNIQUE: Multiple sonographic images of the right upper quadrant are obtained. FINDINGS: EXAM MEASUREMENTS: Liver Length: 15.9 cm Gallbladder Wall: 0.2 cm CBD: 0.3 cm Right Kidney: 9.3 x 4.7 x 3.7 cm Pancreas: Main pancreatic duct = 1.0 mm Liver: wnl Gallbladder: No stones or wall thickening Evidence for sonographic Rose's sign: neg CBD: wnl Right Kidney: No hydronephrosis or masses seen IMPRESSION: No evidence for acute process.
[2024-05-29 08:50] LABS: Basophils # (A) 0.05 X 10*3/uL (0.00-0.10); Basophils % (A) 0.6 %; Eosinophils # (A) 0.17 X 10*3/uL (0.04-0.35); Eosinophils % (A) 1.9 %; HCT 39.3 % (37.2-46.3); HGB 12.2 g/dL (12.0-15.0); Lymphocytes # (A) 4.19 X 10*3/uL (0.90-5.00); Lymphocytes % (A) 46.5 %; MCH 27.2 pg (27.0-32.0); MCV 87.7 FL (80.0-97.0); Mean Platelet Volume 10.5 FL (9.5-12.2); Monocytes # (A) 0.77 X 10*3/uL (0.20-1.00); Monocytes % (A) 8.5 %; NRBC Per 100 WBC 0 X 10*3/uL (0.00-0.01); Neutrophils # (A) 3.72 X 10*3/uL (1.80-7.70); Neutrophils % (A) 41.3 %; Platelet Count 370 X 10*3/uL (140-440); RBC 4.48 X 10*6/uL (4.10-5.20); RDW 17.5 % (11.5-14.5); WBC 9.01 X 10*3/uL (4.50-10.00)
[2024-05-29 09:05] LABS: ALT 16 U/L (8-44); AST 17 U/L (13-35); Albumin 4.1 g/dL (3.8-4.9); Albumin/Globulin Ratio 1.95 Ratio (1.60-3.17); Alkaline Phosphatase 115 U/L (41-126); BUN/Creat Ratio 14.82 Ratio (12.00-20.00); Blood Urea Nitrogen 16.3 mg/dL (9.0-27.0); Calcium 9.2 mg/dL (8.7-10.3); Chloride 102 mmol/L (96-109); Globulin 2.1 g/dL (1.6-3.3); Glucose 118 mg/dL (70-110); Potassium 4.3 mmol/L (3.5-5.5); Sodium 140 mmol/L (135-145); Total Bilirubin 0.3 mg/dL (0.3-1.2); Total Protein 6.2 g/dL (6.2-8.2)
--- NOTE | 2024-05-29 11:21 | P.PN ---
Subjective Progress Note Date: 05/29/24 Consult reason: chest pain History of present illness: History of present illness: Patient is a pleasant 53-year-old female with significant past medical history of CAD status post CABG, hypertension, hyperlipidemia, diabetes who presents with chest pain. She follows with a inventory and pricing associate in [place]. She has had 2 prior admissions this past week for chest pain. She reports that her chest pain started again yesterday and she tried nitro and rest with no results. She does report that Lyrica and morphine helps her pain. Labs reviewed: WBC 15.4, tr oponin negative x 3, creatinine 0.82. Echocardiogram was done 05/21/2024 with a EF 55-60%. VQ scan shows low probability of pulmonary embolism. EKG shows sinus tachycardia, nonspecific ST and T wave abnormality. She had prior cardiac catheterization 10/2021 which revealed stable coronary artery disease with patent vein graft to the LAD, total occluded graft to the circumflex but stent in the proximal circumflex is patent, RCA with mild disease. 05/28 Patient is seen today in follow-up. She denies having any chest pain no shortness of breath, no palpitations. She underwent a VQ scan which was low probability for PE but because of this test, Lexiscan needs to be delayed until . She is agreeable to undergo dobutamine echocardiogram which we will schedule for tomorrow as patient has eaten this morning. Blood pressure 125/85, heart rate 70, pulse ox 91 to 95% on room air. Repeat blood work reveals WBC 12.9, hemoglobin 9.4, platelet count 381. Sodium 143, potassium 4.4, creatinine 0.9. Troponins negative x 4 specimens. 05/29 Patient is seen today in follow-up during her dobutamine stress echocardiogram. Overnight she has had no new events. She states she has a lingering chest pain that is a #5. No shortness of breath. Blood pressure 98/64, heart rate 72, pulse ox 96% on room air. Repeat blood work reveals hemoglobin 12.2, BUN 16 creatinine 1.1. PHYSICAL EXAMINATION: This is a 53-year-old female in no apparent distress at the time of my examination. HEENT: Head is atraumatic, normocephalic. Pupils are equal, round. Sclerae anicteric. Conjunctivae are clear. Mucous membranes of the mouth are moist. Neck is supple. There is no jugular venous distention. No carotid bruit is heard. CHEST EXAMINATION: Lungs are clear to auscultation. No chest wall tenderness is noted on palpation or with deep breathing. HEART EXAMINATION: Heart regular rate and rhythm. S1, S2 heard. No murmurs, gallops or rub. ABDOMEN: Soft, nontender. Bowel sounds are heard. No organomegaly noted. EXTREMITIES: 2+ peripheral pulses with no evidence of peripheral edema and no calf tenderness noted. NEUROLOGIC EXAMINATION: Patient is awake, alert and oriented x3. IMPRESSION AND PLAN: CAD with prior two-vessel CABG in 2008 Atypical chest pain, acute coronary syndrome ruled out with negative troponins Hypertension Hyperlipidemia Diabetes type 2 PLAN: Continue current cardiac medications Dobutamine stress echocardiogram revealed no stress-induced ischemia and is cleared for discharge home. Patient will follow-up with her primary inventory and pricing associate in 1 to 2 weeks. Nurse practitioner note has been reviewed, I agree with documented findings and plan of care. Patient was seen and examined. Objective - Vital Signs Vital signs: Vital Signs Temp 97.8 F 05/29/24 07:00 Pulse 90 05/29/24 07:52 Resp 16 05/29/24 07:00 BP 98/64 05/29/24 07:00 Pulse Ox 96 05/29/24 07:00 FiO2 Intake & Output 05/28/24 05/29/24 05/29/24 18:59 06:59 18:59 Intake Total 236 218 Balance 236 218 Intake: Oral 236 218 Other: # Voids 2 2 - Labs CBC & Chem 7: 05/29/24 02:30 05/29/24 02:30 Labs: Abnormal Lab Results - Last 24 Hours (Table) 05/28/24 05/28/24 05/28/24 Range/Units 05:43 05:43 12:43 WBC 12.95 H (4.50-10.00) X 10*3/uL Hgb 11.4 L (12.0-15.0) g/dL Hct 36.5 L (37.2-46.3) % MCHC 31.2 L (32.0-37.0) g/dL RDW 18.0 H (11.5-14.5) % Immature Gran # 0.09 H (0.00-0.04) X 10*3/uL Neutrophils # 7.94 H (1.80-7.70) X 10*3/uL Chloride 110 H (96-109) mmol/L Glucose 125 H (70-110) mg/dL POC Glucose (mg/dL) 112 H (70-110) mg/dL 05/28/24 05/28/24 05/29/24 Range/Units 17:17 20:23 06:06 WBC (4.50-10.00) X 10*3/uL Hgb (12.0-15.0) g/dL Hct (37.2-46.3) % MCHC (32.0-37.0) g/dL RDW (11.5-14.5) % Immature Gran # (0.00-0.04) X 10*3/uL Neutrophils # (1.80-7.70) X 10*3/uL Chloride (96-109) mmol/L Glucose (70-110) mg/dL POC Glucose (mg/dL) 155 H 118 H 132 H (70-110) mg/dL
--- NOTE | 2024-05-29 11:23 | CA ---
Dobutamine Stress Echocardiogram Report Griselda Mcadams Age: 53 Gender: F : 1970 Exam Date: 05/29/2024 09:17 Exam Location: [place] [facility] Ordering Physician: Marybeth Leslie Referring Physician: nAuj HSU Hardware Press Operator: XOCHITL,, Technologist: Ht (in): 65 Wt (lb): 205 Procedure CPT: Indication: Chest Pain ICD-9 Codes: Rhythm: Patient History: ASCAD, Chest pain, shortness of breath palpitations, AK x 4, PTCA x 7, Bypass surgery x2. Cardiac Medications: Medications in past 24 hours: Contrast: Definity Total Dose (mL): 2 Stress Results Protocol: Dobutamine Peak Dose (???g/kg/min): 40 Duration (min:sec): Atropine:(mg) Target HR: 140 Double Product: Resting HR: 50 Resting BP: 102 / 69 Peak HR: 131 Peak BP: 149 / 65 Max Predicted HR: 165 79 % Max Predicted HR Stress Summary: BP Response: Reason for Termination: 18 min infusion with max exertion. Cardiac Symptoms: No symptoms ECG Analysis Resting EKG: Stress EKG: Arrhythmia: Echo Analysis Base Echo Analysis: Low Echo Anaylsis: Peak Echo Analysis: Recovery Echo: MEASUREMENTS (Male/Female) Normal Values CONCLUSIONS Baseline EKG revealed a normal sinus rhythm without significant ST-T changes. Patient was administered dobutamine as per protocol and the heart rate went up to 130 bpm which is about 80% of her predicted maximal. No significant symptoms no EKG changes no significant arrhythmia. Baseline echo images revealed normal wall motion and wall thickening. Echo contrast was used. With dobutamine administration there was progressive increase in contractility noted. Maximal heart rate was about 80% of predicted maximal. No ischemia at this level. Final impression: #1 this is a negative stress test by EKG criteria at 80% of predicted maximal heart rate. #2 negative dobutamine stress test echocardiogram without evidence of ischemia at a heart rate of 80% of predicted maximal Dr. González Devlin MD (Electronically Signed) Final Date: 29 May 2024 11:20
[2024-05-29 12:00] LABS: Glucose,Whole Blood 175 mg/dL (70-110)
[2024-05-29 14:20] VITALS: BP 85/60; PULSE 85; RESP 17; TEMP 97.7
[2024-05-29] MEDS ORDERED: METOPROLOL TARTRATE 25 MG TAB PO SCH (21:00)
== END 2024-05-29 15:55 | disposition home or self-care (01) ==
LOC: EC 20:03 → 6NMEDSUR 05-27 00:12
PROVIDERS: ADMIT Internal Medicine; ATTEND Internal Medicine
DX: R07.89 Other chest pain (principal); R79.89 Other specified abnormal findings of blood chemistry; I10 Essential (primary) hypertension; E11.9 Type 2 diabetes mellitus without complications; E78.5 Hyperlipidemia, unspecified; I25.810 Atherosclerosis of coronary artery bypass graft(s) without angina pectoris; K57.30 Diverticulosis of large intestine without perforation or abscess without bleeding; J44.89 Other specified chronic obstructive pulmonary disease; I35.1 Nonrheumatic aortic (valve) insufficiency; F17.200 Nicotine dependence, unspecified, uncomplicated; R00.0 Tachycardia, unspecified; D72.829 Elevated white blood cell count, unspecified; I25.2 Old myocardial infarction; M19.90 Unspecified osteoarthritis, unspecified site; F41.9 Anxiety disorder, unspecified; F31.9 Bipolar disorder, unspecified; E66.9 Obesity, unspecified; Z68.34 Body mass index [BMI] 34.0-34.9, adult; K21.9 Gastro-esophageal reflux disease without esophagitis; M54.9 Dorsalgia, unspecified; Z79.82 Long term (current) use of aspirin; Z79.51 Long term (current) use of inhaled steroids; Z79.84 Long term (current) use of oral hypoglycemic drugs; Z79.85 Long-term (current) use of injectable non-insulin antidiabetic drugs; Z79.02 Long term (current) use of antithrombotics/antiplatelets; Z79.4 Long term (current) use of insulin; Z79.52 Long term (current) use of systemic steroids; Z79.899 Other long term (current) drug therapy; Z95.1 Presence of aortocoronary bypass graft; Z95.5 Presence of coronary angioplasty implant and graft
CPT/HCPCS: 36415; 71250; 71275; 74174; 74176; 76705; 78582; 80048; 80053; 81003; 82150; 83690; 83880; 84484; 85025; 85379; 85610; 85730; 93005; 93351; 94640; 96361; 96372; 96374; 96375; 96376; 99285

== ENCOUNTER 2024-05-30 18:46 | Observation (INO) | payer OTHER ==
--- NOTE | 2024-05-30 19:11 | ED ---
Abdominal Pain HPI - General Chief Complaint: Abdominal Pain Stated Complaint: Abd pain Time Seen by Provider: 05/30/24 19:02 Source: patient, EMS, RN notes reviewed Mode of arrival: EMS Limitations: no limitations - History of Present Illness Initial Comments: 53-year-old female with a history of diabetes, hypertension, COPD presents to emergency department chief complaint of right sided abdominal pain that started this morning. She states that this pain is constant described as a stabbing sensation. Denies radiation of pain. endorses nausea with no vomiting. Denies fevers, chills, bladder or bowel changes. denies previous surgical abdominal h istory. Patient was recently evaluated admitted to the hospital for chest pain and discharged yesterday. - Related Data Home Medications Medication Instructions Recorded Confirmed Atorvastatin [Lipitor] 80 mg PO DAILY 07/08/20 05/27/24 Ranolazine [Ranexa] 1,000 mg PO BID 11/13/21 05/27/24 Albuterol Inhaler [Ventolin Hfa 2 puff INHALATION RT-QID PRN 03/27/23 05/27/24 Inhaler] Aspirin EC [Ecotrin Low Dose] 81 mg PO DAILY 03/27/23 05/27/24 Budesonide/Formoterol Fumarate 2 puff INHALATION RT-BID 03/27/23 05/27/24 [Symbicort 160-4.5 Mcg Inhaler] Clopidogrel [Plavix] 75 mg PO DAILY 03/27/23 05/27/24 Nitroglycerin Sl Tabs [Nitrostat] 0.4 mg SL Q5M PRN 03/27/23 05/27/24 Omeprazole 40 mg PO BID 03/27/23 05/27/24 Ondansetron [Zofran] 4 mg PO TID PRN 03/27/23 05/27/24 Pregabalin [Lyrica] 150 mg PO TID 03/27/23 05/27/24 amLODIPine [Norvasc] 10 mg PO DAILY 03/27/23 05/27/24 metFORMIN HCL 1,000 mg PO BID 03/27/23 05/27/24 rOPINIRole HCL [Requip] 1 mg PO HS 03/27/23 05/27/24 ALPRAZolam [Xanax] 0.5 mg PO BID PRN 06/22/23 05/27/24 Dapagliflozin Propanediol [Farxiga] 5 mg PO DAILY 03/16/24 05/27/24 Dulaglutide [Trulicity] 3 mg SQ WE 03/16/24 05/27/24 HYDROcodone/APAP 5-325MG [Vivian 1 tab PO BID PRN 03/16/24 05/27/24 5-325] Insulin Lispro [humaLOG Kwikpen] See Protocol SQ AC-TID 03/16/24 05/27/24 Ipratropium-Albuterol Nebulize 3 ml INHALATION RT-TID 03/16/24 05/27/24 [Duoneb 0.5 mg-3 mg/3 ml Soln] Isosorbide Mononitrate ER [Imdur] 30 mg PO DAILY 03/16/24 05/27/24 Spiriva Respimat 1.25mcg/Actuation 2 puff INHALATION RT-DAILY 05/24/24 05/27/24 Mist methylPREDNISolone Dose Pack See Taper PO DIRECTED 05/24/24 05/27/24 [Medrol Dose Pack] Previous Rx's Medication Instructions Recorded Mag Hydrox/Al Hydrox/Simeth 30 ml PO QID PRN 2 Days #180 ml 05/22/24 [Maalox] Metoprolol Tartrate [Lopressor] 25 mg PO BID #60 tab 05/29/24 Allergies Allergy/AdvReac Type Severity Reaction Status Date / Time No Known Allergies Allergy Verified 05/27/24 11:54 Review of Systems ROS Statement: Those systems with pertinent positive or pertinent negative responses have been documented in the HPI. ROS Other: All systems not noted in ROS Statement are negative. Past Medical History Past Medical History: Asthma, Coronary Artery Disease (CAD), COPD, Diabetes Mellitus, GERD/Reflux, Hypertension, Myocardial Infarction (NM), Osteoarthritis (OA) Additional Past Medical History / Comment(s): DDD, scoliosis Last Myocardial Infarction Date:: 2011 History of Any Multi-Drug Resistant Organisms: None Reported Past Surgical History: Coronary Bypass/CABG, Heart Catheterization With Stent Additional Past Surgical History / Comment(s): seven stents Past Anesthesia/Blood Transfusion Reactions: No Reported Reaction Date of Last Stent Placement:: 11/2018 Past Psychological History: Anxiety, Bipolar Smoking Status: Current every day smoker Past Alcohol Use History: None Reported Past Drug Use History: Marijuana - Past Family History Mother Family Medical History: Cancer Additional Family Medical History / Comment(s): Ovarian cancer Father Family Medical History: Congestive Heart Failure (CHF) Fmily Family Medical History: No Reported History General Exam Limitations: no limitations General appearance: alert, in no apparent distress Head exam: Present: atraumatic, normocephalic, normal inspection Eye exam: Present: normal appearance, PERRL, EOMI. Absent: scleral icterus, conjunctival injection, periorbital swelling Neck exam: Present: normal inspection. Absent: tenderness, meningismus, lymphadenopathy Respiratory exam: Present: wheezes, decreased breath sounds. Absent: respiratory distress, rales, rhonchi, stridor Cardiovascular Exam: Present: regular rate, normal rhythm, normal heart sounds. Absent: systolic murmur, diastolic murmur, rubs, gallop, clicks GI/Abdominal exam: Present: soft, tenderness (right sided, suprapubic), normal bowel sounds. Absent: distended, guarding, rebound, rigid Extremities exam: Present: normal inspection, full ROM, normal capillary refill. Absent: tenderness, pedal edema, joint swelling, calf tenderness Back exam: Present: normal inspection Skin exam: Present: warm, dry, intact, normal color. Absent: rash Course Vital Signs 05/30/24 18:48 Temperature 98.3 F Pulse Rate 99 Respiratory 18 Rate Blood Pressure 122/86 O2 Sat by Pulse 97 Oximetry Medical Decision Making - Medical Decision Making Was pt. sent in by a medical professional or institution (VICENTE Mckenna, ELECTROENCEPHALOGRAPH TECHNOLOGIST, urgent care, hospital, or shelter...) When possible be specific @ -No Did you speak to anyone other than the patient for history (EMS, parent, family, police, friend...)? What history was obtained from this source @ -No Did you review nursing and triage notes (agree or disagree)? Why? @ -I reviewed and agree with nursing and triage notes Were old charts reviewed (outside hosp., previous admission, EMS record, old EKG, old radiological studies, urgent care reports/EKG's, shelter records)? Report findings @ -I reviewed the patient's emergency department visit note from 05/26/2024 where she presented with chest pain was admitted to the hospital for further e valuation. Differential Diagnosis (chest pain, altered mental status, abdominal pain women, abdominal pain men, vaginal bleeding, weakness, fever, dyspnea, syncope, headache, dizziness, GI bleed, back pain, seizure, CVA, palpatations, mental health, musculoskeletal)? @ -Differential Abdominal Pain Women: Appendicitis, Cholecystitis, diverticulosis, ischemic bowel, pancreatitis, hepatitis, UTI, gastroenteritis, AAA, incarcerated hernia, bowel obstruction, constipation, inflammatory bowel, hepatitis, peptic ulcer disease, splenic infarction, perforated viscus, vulvitis, ovarian torsion, PID, kidney stone, placenta abruption, this is not meant to be an all-inclusive list EKG interpreted by me (3pts min.). @ -Completed at 1916 sinus tachycardia with a ventricular rate of 100, KS interval 136, QTc 404. No acute signs of ischemia. X-rays interpreted by me (1pt min.). @ -None done CT interpreted by me (1pt min.). @ -CT imaging of the abdomen pelvis with IV contrast reveals a minimal inflammatory change adjacent to the cecum and terminal ileum, dilated small bowel loops containing fluid with potential ileus with no zone of transition identified or obstruction. U/S interpreted by me (1pt. min.). @ -None done What testing was considered but not performed or refused? (CT, X-rays, U/S, labs)? Why? @ -None What meds were considered but not given or refused? Why? @ -None Did you discuss the management of the patient with other professionals (professionals i.e. , PA, ELECTROENCEPHALOGRAPH TECHNOLOGIST, lab, RT, psych nurse, public health social worker, automatic serging machine operator, teacher, press officer, human services case manager)? Give summary @ -Spoke with internal medicine nurse practitioner, Violetta from [facility] hospitalist group in regard to the patient's abdominal pain, leukocytosis, CT scan concerning for early development diverticulitis. Patient is excepted with admission and surgery on consult and IV antibiotics started Was smoking cessation discussed for >3mins.? @ -No Was critical care preformed (if so, how long)? @ -No Were there social determinants of health that impacted care today? How? (Homelessness, low income, unemployed, alcoholism, drug addiction, transportation, low edu. Level, literacy, decrease access to med. care, half-way, rehab)? @ -No Was there de-escalation of care discussed even if they declined (Discuss DNR or withdrawal of care, Hospice)? DNR status @ -No What co-morbidities impacted this encounter? (DM, HTN, Smoking, COPD, CAD, Cancer, CVA, ARF, Chemo, Hep., AIDS, mental health diagnosis, sleep apnea, morbid obesity)? @ -None Was patient admitted / discharged? Hospital course, mention meds given and route, prescriptions, significant lab abnormalities, going to OR and other pertinent info. @ -Admitted. 53-year-old female with abdominal pain. On examination patient is in mild pain to palpation of the right mid abdomen and suprapubic region with equal bowel sounds heard throughout. Vitals are stable. She is symptomatically treated with fluids and Toradol pending labs. Patient CBC reveals a leukocytosis of 25.5 and neutrophilia of 22.5, CMP unremarkable, troponin nonelevated at less than 0.012, pancreatic enzymes within normal limits. Due to patient's abdominal pain and elevated white count that his increases yesterday she is sent for a CT of the abdomen for further evaluation. CT remarkable for potential early development of diverticulitis addition to ileus. Patient will be maintained on n.p.o. status and started on IV antibiotics and deferred from opioids to be treated for infection and ileus. Surgery on consult and internal medicine has accepted patient, [facility],. discussed with Dr. Shane. Undiagnosed new problem with uncertain prognosis? @ -No Drug Therapy requiring intensive monitoring for toxicity (Heparin, Nitro, Insulin, Cardizem)? @ -No Were any procedures done? @ -No Diagnosis/symptom? @ -ileus, early development diverticulitis vs. colitis Acute, or Chronic, or Acute on Chronic? @ -Acute Uncomplicated (without systemic symptoms) or Complicated (systemic symptoms)? @ -Complicated Side effects of treatment? @ -No Exacerbation, Progression, or Severe Exacerbation? @ -No Poses a threat to life or bodily function? How? (Chest pain, USA, NM, pneumonia, PE, COPD, DKA, ARF, appy, cholecystitis, CVA, Diverticulitis, Homicidal, Suicidal, threat to staff... and all critical care pts) @ -No - Lab Data Result diagrams: 05/30/24 20:15 05/30/24 20:15 Lab Results 05/30/24 05/30/24 05/30/24 Range/Units 20:15 20:15 20:15 WBC 25.5 H (3.8-10.6) k/uL RBC 4.36 (3.80-5.40) m/uL Hgb 12.1 (11.4-16.0) gm/dL Hct 37.0 (34.0-46.0) % MCV 84.8 (80.0-100.0) fL MCH 27.9 (25.0-35.0) pg MCHC 32.8 (31.0-37.0) g/dL RDW 17.0 H (11.5-15.5) % Plt Count 318 (150-450) k/uL MPV 7.9 Neutrophils % 88 % Lymphocytes % 8 % Monocytes % 3 % Eosinophils % 1 % Basophils % 0 % Neutrophils # 22.5 H (1.3-7.7) k/uL Lymphocytes # 2.0 (1.0-4.8) k/uL Monocytes # 0.8 (0-1.0) k/uL Eosinophils # 0.2 (0-0.7) k/uL Basophils # 0.0 (0-0.2) k/uL Hypochromasia Slight Anisocytosis Slight Sodium 137 (137-145) mmol/L Potassium 3.8 (3.5-5.1) mmol/L Chloride 108 H (98-107) mmol/L Carbon Dioxide 23 (22-30) mmol/L Anion Gap 6 mmol/L BUN 14 (7-17) mg/dL Creatinine 0.79 (0.52-1.04) mg/dL Est GFR (CKD-EPI)AfAm >90 (>60 ml/min/1.73 sqM) Est GFR (CKD-EPI)NonAf 85 (>60 ml/min/1.73 sqM) Glucose 139 H (74-99) mg/dL Plasma Lactic Acid Sarthak (0.7-2.0) mmol/L Calcium 8.9 (8.4-10.2) mg/dL Total Bilirubin 0.8 (0.2-1.3) mg/dL AST 17 (14-36) U/L ALT 13 (4-34) U/L Alkaline Phosphatase 93 (38-126) U/L Troponin I <0.012 (0.000-0.034) ng/mL Total Protein 5.5 L (6.3-8.2) g/dL Albumin 3.3 L (3.5-5.0) g/dL Amylase 35 (30-110) U/L Lipase 27 (23-300) U/L 05/30/24 Range/Units 20:15 WBC (3.8-10.6) k/uL RBC (3.80-5.40) m/uL Hgb (11.4-16.0) gm/dL Hct (34.0-46.0) % MCV (80.0-100.0) fL MCH (25.0-35.0) pg MCHC (31.0-37.0) g/dL RDW (11.5-15.5) % Plt Count (150-450) k/uL MPV Neutrophils % % Lymphocytes % % Monocytes % % Eosinophils % % Basophils % % Neutrophils # (1.3-7.7) k/uL Lymphocytes # (1.0-4.8) k/uL Monocytes # (0-1.0) k/uL Eosinophils # (0-0.7) k/uL Basophils # (0-0.2) k/uL Hypochromasia Anisocytosis Sodium (137-145) mmol/L Potassium (3.5-5.1) mmol/L Chloride (98-107) mmol/L Carbon Dioxide (22-30) mmol/L Anion Gap mmol/L BUN (7-17) mg/dL Creatinine (0.52-1.04) mg/dL Est GFR (CKD-EPI)AfAm (>60 ml/min/1.73 sqM) Est GFR (CKD-EPI)NonAf (>60 ml/min/1.73 sqM) Glucose (74-99) mg/dL Plasma Lactic Acid Sarthak 1.6 (0.7-2.0) mmol/L Calcium (8.4-10.2) mg/dL Total Bilirubin (0.2-1.3) mg/dL AST (14-36) U/L ALT (4-34) U/L Alkaline Phosphatase (38-126) U/L Troponin I (0.000-0.034) ng/mL Total Protein (6.3-8.2) g/dL Albumin (3.5-5.0) g/dL Amylase (30-110) U/L Lipase (23-300) U/L Disposition Clinical Impression: Ileus, Colitis Disposition: ADMITTED IP TO THIS [facility] Condition: Stable Is patient prescribed a controlled substance at d/c from ED?: No Referrals: Kemar Jin MD [Primary Care Provider] - 1-2 days Decision to Admit Reason: Admit from EC Decision Date: 05/30/24 Decision Time: 22:40
[2024-05-30] MEDS: SODIUM CHLORIDE 0.9% 1,000 ML IV STA (20:05)
[2024-05-30] MEDS: KETOROLAC 15 MG/ML 1 ML VIAL IVP STA (20:12)
[2024-05-30] MEDS: ONDANSETRON 4 MG/2 ML VIAL IVP STA (20:13)
[2024-05-30 20:31] LABS: Anisocytosis Slight; Basophils % (A) 0 %; Eosinophils # (A) 0.2 k/uL (0-0.7); Eosinophils % (A) 1 %; HGB 12.1 gm/dL (11.4-16.0); Hypochromasia Slight; Lymphocytes % (A) 8 %; MCH 27.9 pg (25.0-35.0); MCHC 32.8 g/dL (31.0-37.0); MCV 84.8 fL (80.0-100.0); Mean Platelet Volume 7.9; Monocytes # (A) 0.8 k/uL (0-1.0); Monocytes % (A) 3 %; Neutrophils # (A) 22.5 k/uL (1.3-7.7); Neutrophils % (A) 88 %; Platelet Count 318 k/uL (150-450); RBC 4.36 m/uL (3.80-5.40); WBC 25.5 k/uL (3.8-10.6)
[2024-05-30 20:46] LABS: African American GFR (CKD) >90 (>60 ml/min/1.73 sqM); Albumin 3.3 g/dL (3.5-5.0); Amylase 35 U/L (30-110); Anion Gap 6 mmol/L; Blood Urea Nitrogen 14 mg/dL (7-17); Calcium 8.9 mg/dL (8.4-10.2); Carbon Dioxide 23 mmol/L (22-30); Chloride 108 mmol/L (98-107); Glucose 139 mg/dL (74-99); Non-African American GFR(CKD) 85 (>60 ml/min/1.73 sqM); Potassium 3.8 mmol/L (3.5-5.1); Sodium 137 mmol/L (137-145); Total Bilirubin 0.8 mg/dL (0.2-1.3); Total Protein 5.5 g/dL (6.3-8.2)
[2024-05-30 20:47] LABS: ALT 13 U/L (4-34); AST 17 U/L (14-36); Alkaline Phosphatase 93 U/L (38-126); Lipase 27 U/L (23-300)
[2024-05-30] MEDS: MORPHINE SULFATE 2 MG/ML SYRINGE IVP ONE (21:20)
--- NOTE | 2024-05-30 22:08 | CT ---
EXAMINATION TYPE: CT abdomen pelvis w con DATE OF EXAM: 05/30/2024 COMPARISON: 05/26/2024 INDICATION: Abdominal pain and nausea DLP: 1262.4 mGycm, Automated exposure control for dose reduction was used. CONTRAST: 100 ml mL of Isovue 300. Study performed without Oral Contrast TECHNIQUE: Axial images were obtained from above the diaphragm to the pubic rami in the axial plane a t 5 mm thick sections. Reconstructed images are reviewed on the computer in the coronal plane. FINDINGS: Limited CT sections are obtained the lung bases. The lung bases are clear. CT ABDOMEN: Liver: Normal Spleen: Normal Pancreas: Normal Adrenal glands: The adrenal glands are normal. Gallbladder: Normal Kidneys: No masses are evident. No hydronephrosis is present. No cysts are present. No renal stone s are evident. Aorta: Vascular calcification is within the aorta. Inferior vena cava: Normal. CT PELVIS: There is some inflammatory change in the right lower quadrant adjacent to terminal ileum cecum. Cecum contains fecal debris. The adjacent appendix appears normal without wall thickening dilatation. Flui d-filled small bowel loops extend through the pelvis. Some proximal jejunal loops are dilated with fl uid. Some minimal wall thickening of the distal transverse colon may be present. Example image series 202 image 61. No adjacent inflammatory change adjacent to this area is evident. No zone of transiti on is evident. Prominent small bowel loops extend to the terminal ileum. Differential diagnosis inclu vikki ileus and partial small bowel obstruction. This study is without oral contrast material bowel paul luation. Appendix: Normal as visualized. Urinary bladder: Normal. Genitourinary structures: Uterus and adnexa appear normal. Osseous structures: No suspicious lytic or sclerotic lesions. IMPRESSION: 1. Some minimal inflammatory change may be developing adjacent to the cecum and terminal ileum. The appendix in this region however appears normal. 2. Some mild wall thickening of the splenic flexure of the colon may be present. 3. Multiple dilated small bowel loops containing fluid. Ileus may be present. No zone of transition i dentified obstruction identified.
[2024-05-30] MEDS ORDERED: NALOXONE 0.4 MG/ML 1 ML VIAL IV PRN (22:40)
[2024-05-30] MEDS: CIPROFLOXACIN/DEXTROSE PMX 400 MG in DEXTROSE/WATER 1 200ML.BAG IVPB ONE (23:23)
[2024-05-30] MEDS: KETOROLAC 15 MG/ML 1 ML VIAL IVP PRN (23:26)
[2024-05-30] MEDS: metroNIDAZOLE-NS PMX 500 MG in SALINE 1 100ML.BAG IVPB SCH (23:32)
[2024-05-30] MEDS: ACETAMINOPHEN TAB 500 MG TAB PO STA (23:42)
[2024-05-31] MEDS: IBUPROFEN 400 MG TAB PO PRN (02:37)
[2024-05-31 05:58] LABS: Anisocytosis Slight; Basophils % (A) 0 %; Eosinophils # (A) 0.3 k/uL (0-0.7); Eosinophils % (A) 1 %; HCT 35.5 % (34.0-46.0); HGB 11.4 gm/dL (11.4-16.0); Hypochromasia Moderate; Lymphocytes # (A) 1.4 k/uL (1.0-4.8); Lymphocytes % (A) 7 %; MCHC 32.1 g/dL (31.0-37.0); Mean Platelet Volume 7.8; Monocytes # (A) 0.4 k/uL (0-1.0); Monocytes % (A) 2 %; Neutrophils # (A) 17.6 k/uL (1.3-7.7); Neutrophils % (A) 89 %; Platelet Count 283 k/uL (150-450); RBC 4.08 m/uL (3.80-5.40); WBC 19.8 k/uL (3.8-10.6)
[2024-05-31 06:10] LABS: ALT 11 U/L (4-34); AST 17 U/L (14-36); African American GFR (CKD) >90 (>60 ml/min/1.73 sqM); Albumin 3.1 g/dL (3.5-5.0); Alkaline Phosphatase 101 U/L (38-126); Anion Gap 9 mmol/L; Blood Urea Nitrogen 15 mg/dL (7-17); Calcium 8.7 mg/dL (8.4-10.2); Carbon Dioxide 22 mmol/L (22-30); Chloride 104 mmol/L (98-107); Glucose 107 mg/dL (74-99); Non-African American GFR(CKD) >90 (>60 ml/min/1.73 sqM); Potassium 3.5 mmol/L (3.5-5.1); Sodium 135 mmol/L (137-145); Total Bilirubin 1.2 mg/dL (0.2-1.3); Total Protein 5.4 g/dL (6.3-8.2)
[2024-05-31] MEDS ORDERED: NON FORMULARY DRUG (Albuterol Inhaler 90 MCG Puff) INHALATION PRN (09:07)
[2024-05-31] MEDS ORDERED: ALBUTEROL NEBULIZED 2.5 MG/3 ML INHALATION PRN (09:07)
[2024-05-31] MEDS: HYDROmorphone 0.5 MG/0.5 ML SYRINGE IVP PRN (09:20)
[2024-05-31 10:03] LABS: Appearance,Urine Clear (Clear); Bilirubin,Urine Negative (Negative); Blood,Urine Negative (Negative); Color,Urine Yellow; Glucose,Urine (UA) 3+ (Negative); Ketones,Urine Negative (Negative); Leukocyte Esterase,Urine Negative (Negative); Mucus,Urine Rare /hpf; Nitrite,Urine Negative (Negative); PH, Urine 6.5 (5.0-8.0); Protein,Urine 1+ (Negative); RBC,Urine 2 /hpf (0-5); Squamous Epithelial Cell,Urine 2 /hpf (0-4); Urobilinogen,Urine <2.0 mg/dL (<2.0); WBC,Urine 4 /hpf (0-5)
[2024-05-31 10:13] LABS: Specific Gravity,Urine 1.047 (1.001-1.035)
[2024-05-31] MEDS ORDERED: CIPROFLOXACIN/DEXTROSE PMX 400 MG in DEXTROSE/WATER 1 200ML.BAG IVPB SCH (12:00)
[2024-05-31 12:01] LABS: Glucose,Whole Blood 149 mg/dL (70-110)
--- NOTE | 2024-05-31 12:49 | P.HPIM ---
History of Present Illness H&P Date: 05/31/24 Patient is a 53-year-old female with diabetes, hypertension, COPD who presented to the emergency department last night with complaints of right-sided abdominal pain for several hours that started after being discharge. She notes that the pain started while she was resting, it is constant and stabbing, does not radiate, worsens with breathing. She attempted to take aspirin to relieve the pain but it did not help. She denies radiation of the pain. She endorses nausea without vomiting. She was discharged from the hospital on 05/29/2024 after chest pain evaluation. She denies fever, chills, vomiting, chest pain, shortness of breath, hematochezia, melena, hematuria, dysuria. She was started on IV antibiotics and made n.p.o. status. CT abdomen/pelvis: Minimal inflammatory changes adjacent to the cecum and terminal ileum, appendix appears normal, mild wall thickening of the splenic fle xure, multiple dilated small bowel loops containing fluid, ileus may be present, no obstruction identified. WBCs 25.5, hemoglobin 12.1, troponin <0.012. Remainder of labs unremarkable. Afebrile, normotensive. CT chest/abdomen/pelvis 05/26/2024 showed scattered colonic diverticula. ED documentation reviewed. Review of systems: Pertinent positives and negatives as discussed in HPI, a complete review of systems was performed and all other systems are negative. Family history: Father -congestive heart failure; mother -ovarian cancer Social history: Tobacco: Every day smoker, less than 1/2 ppd for 40 years Alcohol: Denies Recreational drugs: Marijuana, a few joints/day Travel: Denies Occupation: Unemployed Physical examination: Vital signs reviewed General: non toxic, mild distress Derm: no unusual rashes/lesions, warm Head: atraumatic, normocephalic, symmetric Eyes: EOMI, no lid lag, anicteric sclera, pupils equal round reactive to light ENT: Nose and ears atraumatic Neck: No cervical lymphadenopathy, trachea midline, supple Mouth: no lip lesion, mucus membranes moist Cardiovascular: S1S2 present, regular rate and rhythm, no murmurs, rubs, gallops Lungs: CTA bilateral, no rhonchi, no rales, no accessory muscle use Abdominal: Diffuse tenderness to palpation, no rebound, soft abdomen Ext: muscle strength 5 out of 5 in all 4 extremities grossly, no gross muscle atrophy, no contractures, positive dorsalis pedis pulse bilateral, no edema Neuro: CN II-XI grossly intact, no gross focal neuro deficits Psych: Alert, oriented, appropriate affect and mood Assessment/Plan: #. Diverticulitis versus colitis #. Possible ileus Pain control Surgery consulted - pending recommendations #. Leukocytosis IV Rocephin DVT prophylaxis: SCD Chronic conditions: COPD, diabetes mellitus type 2, hypertension, hyperlipidemia, tobacco abuse The patient is admitted with an anticipated less than than 2 midnight stay for evaluation of abdominal pain. Discussed with: Patient Anticipated discharge place: Home Past Medical History Past Medical History: Asthma, Coronary Artery Disease (CAD), COPD, Diabetes Mellitus, GERD/Reflux, Hypertension, Myocardial Infarction ([place]), Osteoarthritis (OA) Additional Past Medical History / Comment(s): DDD, scoliosis Last Myocardial Infarction Date:: 2011 History of Any Multi-Drug Resistant Organisms: None Reported Past Surgical History: Coronary Bypass/CABG, Heart Catheterization With Stent Additional Past Surgical History / Comment(s): seven stents Past Anesthesia/Blood Transfusion Reactions: No Reported Reaction Date of Last Stent Placement:: 11/2018 Past Psychological History: Anxiety, Bipolar Smoking Status: Current every day smoker Past Alcohol Use History: None Reported Past Drug Use History: Marijuana - Past Family History Mother Family Medical History: Cancer Additional Family Medical History / Comment(s): Ovarian cancer Father Family Medical History: Congestive Heart Failure (CHF) Fmily Family Medical History: No Reported History Medications and Allergies Home Medications Medication Instructions Recorded Confirmed Type Atorvastatin [Lipitor] 80 mg PO DAILY 07/08/20 05/31/24 History Ranolazine [Ranexa] 1,000 mg PO BID 11/13/21 05/31/24 History Albuterol Inhaler [Ventolin Hfa 2 puff INHALATION RT-QID PRN 03/27/23 05/31/24 History Inhaler] Aspirin EC [Ecotrin Low Dose] 81 mg PO DAILY 03/27/23 05/31/24 History Budesonide/Formoterol Fumarate 2 puff INHALATION RT-BID 03/27/23 05/31/24 Histor y [Symbicort 160-4.5 Mcg Inhaler] Clopidogrel [Plavix] 75 mg PO DAILY 03/27/23 05/31/24 History Nitroglycerin Sl Tabs [Nitrostat] 0.4 mg SL Q5M PRN 03/27/23 05/31/24 History Omeprazole 40 mg PO BID 03/27/23 05/31/24 History Pregabalin [Lyrica] 150 mg PO TID 03/27/23 05/31/24 History amLODIPine [Norvasc] 10 mg PO DAILY 03/27/23 05/31/24 History metFORMIN HCL 1,000 mg PO BID 03/27/23 05/31/24 History rOPINIRole HCL [Requip] 1 mg PO HS 03/27/23 05/31/24 History ALPRAZolam [Xanax] 0.5 mg PO BID PRN 06/22/23 05/31/24 History Dapagliflozin Propanediol [Farxiga] 5 mg PO DAILY 03/16/24 05/31/24 History Dulaglutide [Trulicity] 3 mg SQ WE 03/16/24 05/31/24 History HYDROcodone/APAP 5-325MG [[place] 1 tab PO BID PRN 03/16/24 05/31/24 History 5-325] Insulin Lispro [humaLOG Kwikpen] See Protocol SQ AC-TID 03/16/24 05/31/24 History Ipratropium-Albuterol Nebulize 3 ml INHALATION RT-TID 03/16/24 05/31/24 History [Duoneb 0.5 mg-3 mg/3 ml Soln] Isosorbide Mononitrate ER [Imdur] 30 mg PO DAILY 03/16/24 05/31/24 History Mag Hydrox/Al Hydrox/Simeth 30 ml PO QID PRN 2 Days #180 ml 05/22/24 05/31/24 Rx [Maalox] Spiriva Respimat 1.25mcg/Actuation 2 puff INHALATION RT-DAILY 05/24/24 05/31/24 History Mist Metoprolol Tartrate [Lopressor] 25 mg PO BID #60 tab 05/29/24 05/31/24 Rx Albuterol Nebulized [Ventolin 2.5 mg INHALATION RT-Q6H PRN 05/31/24 05/31/24 History Nebulized] Ondansetron Odt [Zofran Odt] 4 mg PO Q8HR PRN 05/31/24 05/31/24 History lisinopriL [Zestril] 10 mg PO DAILY 05/31/24 05/31/24 History Allergies Allergy/AdvReac Type Severity Reaction Status Date / Time No Known Allergies Allergy Verified 05/31/24 07:09 Physical Exam Vitals: Vital Signs Temp Pulse Pulse Resp BP BP Pulse Ox 05/31/24 05:07 84 18 120/54 95 05/31/24 01:33 85 18 109/61 95 05/31/24 00:03 86 18 116/60 94 L 05/30/24 18:48 98.3 F 99 18 122/86 97 Intake and Output 05/30/24 05/31/24 05/31/24 22:59 06:59 14:59 Other: Weight 90.718 kg Results CBC & Chem 7: 05/31/24 05:34 05/31/24 05:34 Labs: Abnormal Lab Results - Last 24 Hours (Table) 05/30/24 05/30/24 05/31/24 Range/Units 20:15 20:15 05:34 WBC 25.5 H 19.8 H (3.8-10.6) k/uL RDW 17.0 H 17.0 H (11.5-15.5) % Neutrophils # 22.5 H 17.6 H (1.3-7.7) k/uL Sodium (137-145) mmol/L Chloride 108 H (98-107) mmol/L Glucose 139 H (74-99) mg/dL Total Protein 5.5 L (6.3-8.2) g/dL Albumin 3.3 L (3.5-5.0) g/dL 05/31/24 Range/Units 05:34 WBC (3.8-10.6) k/uL RDW (11.5-15.5) % Neutrophils # (1.3-7.7) k/uL Sodium 135 L (137-145) mmol/L Chloride (98-107) mmol/L Glucose 107 H (74-99) mg/dL Total Protein 5.4 L (6.3-8.2) g/dL Albumin 3.1 L (3.5-5.0) g/dL
--- NOTE | 2024-05-31 15:04 | P.CON ---
Consult Note - . Consult date: 05/31/24 Assessment/Plan:: 53-year-old female with a history of diabetes, hypertension, COPD presents to emergency department chief complaint of right sided abdominal pain that started this morning. She states that this pain is constant described as a stabbing s ensation. Denies radiation of pain. She endorses nausea with no vomiting. Denies fevers, chills, bladder or bowel changes. Denies previous surgical abdominal history. Patient was recently evaluated admitted to the hospital for chest pain and discharged yesterday. CT-AP shows some inflammation around her right colon concerning for colitis. No evidence of Appendicitis Review of Systems ROS Statement: Those systems with pertinent positive or pertinent negative responses have been documented in the HPI. ROS Other: All systems not noted in ROS Statement are negative. Past Medical History Past Medical History: Asthma, Coronary Artery Disease (CAD), COPD, Diabetes Mellitus, GERD/Reflux, Hypertension, Myocardial Infarction ([place]), Osteoarthritis (OA) Additional Past Medical History / Comment(s): DDD, scoliosis Last Myocardial Infarction Date:: 2011 History of Any Multi-Drug Resistant Organisms: None Reported Past Surgical History: Coronary Bypass/CABG, Heart Catheterization With Stent Additional Past Surgical History / Comment(s): seven stents Past Anesthesia/Blood Transfusion Reactions: No Reported Reaction Date of Last Stent Placement:: 11/2018 Past Psychological History: Anxiety, Bipolar Smoking Status: Current every day smoker Past Alcohol Use History: None Reported Past Drug Use History: Marijuana - Past Family History Mother Family Medical History: Cancer Additional Family Medical History / Comment(s): Ovarian cancer Father Family Medical History: Congestive Heart Failure (CHF) Fmily Family Medical History: No Reported History General Exam Limitations: no limitations General appearance: alert, in no apparent distress Head exam: Present: atraumatic, normocephalic, normal inspection Eye exam: Present: normal appearance, PERRL, EOMI. Absent: scleral icterus, conjunctival injection, periorbital swelling Neck exam: Present: normal inspection. Absent: tenderness, meningismus, lymphadenopathy Respiratory exam: Present: wheezes, decreased breath sounds. Absent: respiratory distress, rales, rhonchi, stridor Cardiovascular Exam: Present: regular rate, normal rhythm, normal heart sounds. Absent: systolic murmur, diastolic murmur, rubs, gallop, clicks GI/Abdominal exam: Present: soft, tenderness (right sided, suprapubic), normal bowel sounds. Absent: distended, guarding, rebound, rigid Extremities exam: Present: normal inspection, full ROM, normal capillary refill. Absent: tenderness, pedal edema, joint swelling, calf tenderness Back exam: Present: normal inspection Skin exam: Present: warm, dry, intact, normal color. Absent: rash Assessment/Plan 1. Right Colon Colitis/Inflammation with Leukocytosis -NPO -Rocephin/Flagyl -IV fluids -Pain and Nausea Control -AM labs -Further recs to follow pending patients clinical course Freeman Portillo DO [facility] [phone]
[2024-05-31] MEDS: HYDROmorphone 1 MG/ML 1 ML SYRINGE IVP PRN (16:50)
[2024-05-31 17:06] LABS: Glucose,Whole Blood 110 mg/dL (70-110)
[2024-05-31] MEDS: PANTOPRAZOLE 40 MG/10 ML VIAL IVP SCH (20:15)
[2024-05-31] MEDS: SYMBICORT 160-4.5 MCG INHALER INHALATION SCH (20:31)
[2024-05-31 20:46] LABS: Glucose,Whole Blood 116 mg/dL (70-110)
[2024-06-01] MEDS: ACETAMINOPHEN TAB 325 MG TAB PO PRN (00:02)
[2024-06-01 07:02] LABS: Glucose,Whole Blood 98 mg/dL (70-110)
[2024-06-01] MEDS: TIOTROPIUM 2.5 MCG INHALER INHALATION SCH (07:56)
[2024-06-01 08:12] LABS: Anisocytosis Slight; Basophils % (A) 0 %; Eosinophils # (A) 0.2 k/uL (0-0.7); Eosinophils % (A) 2 %; HCT 32.6 % (34.0-46.0); HGB 10.5 gm/dL (11.4-16.0); Hypochromasia Moderate; Lymphocytes # (A) 1.7 k/uL (1.0-4.8); Lymphocytes % (A) 15 %; MCH 28.2 pg (25.0-35.0); MCHC 32.3 g/dL (31.0-37.0); MCV 87.3 fL (80.0-100.0); Mean Platelet Volume 7.7; Monocytes # (A) 0.6 k/uL (0-1.0); Monocytes % (A) 5 %; Neutrophils # (A) 8.8 k/uL (1.3-7.7); Neutrophils % (A) 76 %; Platelet Count 294 k/uL (150-450); RBC 3.74 m/uL (3.80-5.40); RDW 17.1 % (11.5-15.5); WBC 11.5 k/uL (3.8-10.6)
[2024-06-01 08:36] LABS: ALT 9 U/L (4-34); AST 18 U/L (14-36); African American GFR (CKD) >90 (>60 ml/min/1.73 sqM); Albumin 2.9 g/dL (3.5-5.0); Albumin/Globulin Ratio 1.3; Alkaline Phosphatase 101 U/L (38-126); Anion Gap 2 mmol/L; Blood Urea Nitrogen 14 mg/dL (7-17); Calcium 8.4 mg/dL (8.4-10.2); Carbon Dioxide 23 mmol/L (22-30); Chloride 109 mmol/L (98-107); Globulin 2.2 g/dL; Glucose 93 mg/dL (74-99); Non-African American GFR(CKD) 84 (>60 ml/min/1.73 sqM); Potassium 3.6 mmol/L (3.5-5.1); Sodium 134 mmol/L (137-145); Total Bilirubin 0.7 mg/dL (0.2-1.3); Total Protein 5.1 g/dL (6.3-8.2)
--- NOTE | 2024-06-01 10:34 | P.PN ---
Progress Note - Text Progress Note Date: 06/01/24 Patient seen and examined. NAEO. Right sided abdominal pain is improving. WBC is trending down. General Exam Limitations: no limitations General appearance: alert, in no apparent distress Head exam: Present: atraumatic, normocephalic, normal inspection Eye exam: Present: normal appearance, PERRL, EOMI. Absent: scleral icterus, conjunctival injection, periorbital swelling Neck exam: Present: normal inspection. Absent: tenderness, meningismus, lymphadenopathy Respiratory exam: Present: wheezes, decreased breath sounds. Absent: respiratory distress, rales, rhonchi, stridor Cardiovascular Exam: Present: regular rate, normal rhythm, normal heart sounds. Absent: systolic murmur, diastolic murmur, rubs, gallop, clicks GI/Abdominal exam: Present: soft, tenderness (right sided, suprapubic), normal bowel sounds. Absent: distended, guarding, rebound, rigid Extremities exam: Present: normal inspection, full ROM, normal capillary refill. Absent: tenderness, pedal edema, joint swelling, calf tenderness Back exam: Present: normal inspection Skin exam: Present: warm, dry, intact, normal color. Absent: rash Assessment/Plan 1. Right Colon Colitis/Inflammation with Leukocytosis -Will start CLD -Rocephin/Flagyl -IV fluids -Pain and Nausea Control -AM labs -Further recs to follow pending patients clinical course Freeman Portillo DO [facility] [phone]
[2024-06-01 12:00] LABS: Glucose,Whole Blood 105 mg/dL (70-110)
[2024-06-01] MEDS ORDERED: DEXTROSE 50% SYRINGE 50 ML IVP PRN ×2 (13:05)
[2024-06-01] MEDS: POTASSIUM CHLORIDE ER 20 MEQ TAB.ER PO STA (14:29)
[2024-06-01] MEDS ORDERED: NITROGLYCERIN SL TABS 0.4 MG TAB SUBLINGUAL PRN (14:34)
[2024-06-01] MEDS: ASPIRIN 81 MG PO SCH (15:08)
[2024-06-01] MEDS: PREGABALIN 75 MG CAP PO SCH (15:08)
--- NOTE | 2024-06-01 16:37 | P.PN ---
Subjective Progress Note Date: 06/01/24 Patient is a 53-year-old female with diabetes, hypertension, COPD who presented to the emergency department last night with complaints of right-sided abdominal pain for several hours. She notes that the pain started while she was resting, it is constant and stabbing, does not radiate, worsens with breathing. She attempted to take aspirin to relieve the pain but it did not help. She denies radiation of the pain. She endorses nausea without vomiting. She was discharged from the hospital on 05/29/2024 after chest pain evaluation. She denies fever, chills, vomiting, chest pain, shortness of breath, hematochezia, melena, hematuria, dysuria. She was started on IV antibiotics and made n.p.o. status. CT abdomen/pelvis: Minimal inflammatory changes adjacent to the cecum and terminal ileum, appendix appears normal, mild wall thickening of the splenic flexure, multiple dilated small bowel loops containing fluid, ileus may be present, no obstruction identified. WBCs 25.5, hemoglobin 12.1, troponin <0.012. Remainder of labs unremarkable. Afebrile, normotensive. 06/01. Patient seen and examined laying in bed. She endorses continued right- sided abdominal discomfort but improved from yesterday, now states pain is 9/10. She endorses nausea and 2 episodes of watery diarrhea in the last 24 hours. She denies chest pain, shortness of breath, vomiting. WBCs 11.5, downtrending. Hemoglobin 10.5, sodium 134, chloride 109. Pertinent positives and negatives discussed above, a complete review of systems was preformed and all the other systems were negative. Physical examination: Vitals signs reviewed. General: No acute distress Derm: No unusual rashes/lesions, warm Head: Atraumatic normocephalic, symmetric Eyes: EOMI, no lid lag, anicteric sclera, pupils equal round reactive to light ENT: Nose and ears atraumatic Neck: Trachea midline, supple Mouth: No lip lesion, mucus membranes moist Cardiovascular: S1S2 present, regular rate and rhythm, no murmurs, rubs, gallops, dorsalis pedis pulses bilaterally, no edema Lungs: Decreased air entry bilaterally, no rhonchi, no rales, no accessory muscle use Abdominal: Soft, moderately tender to palpation Ext: muscle strength 5 out of 5 in all 4 extremities grossly, no gross muscle atrophy, no contractures Neuro: CN II-XI grossly intact, no gross focal neuro deficits Psych: Alert, oriented, appropriate affect Assessment/Plan: #. Right colon colitis #. Inflammation with leukocytosis Can begin clear liquid diet as per surgery Rocephin IV fluids Pain and nausea control Monitor CBC/CMP #. Diarrhea Obtain c.diff PCR Attestation: I have personally seen and examined the patient with Resident, reviewed the documentation and participated and agree with the assessment and plan as written. Objective - Vital Signs Vital signs: Vital Signs Temp 98.6 F 06/01/24 02:00 Pulse 90 06/01/24 02:00 Resp 16 06/01/24 02:00 BP 114/76 06/01/24 02:00 Pulse Ox 91 L 06/01/24 02:00 FiO2 Intake & Output 05/31/24 06/01/24 06/01/24 18:59 06:59 18:59 Weight 90.718 kg Other: # Voids 1 2 # Bowel Movements 1 1 - Labs CBC & Chem 7: 06/01/24 08:01 06/01/24 08:01 Labs: Abnormal Lab Results - Last 24 Hours (Table) 05/31/24 05/31/24 05/31/24 Range/Units 09:26 12:00 20:44 POC Glucose (mg/dL) 149 H 116 H (70-110) mg/dL Ur Specific [place] 1.047 H (1.001-1.035) Urine Protein 1+ H (Negative) Urine Glucose (UA) 3+ H (Negative) Urine Mucus Rare H (None) /hpf
[2024-06-01 17:03] LABS: Glucose,Whole Blood 69 mg/dL (70-110)
[2024-06-01] MEDS: INSULIN ASPART (NovoLOG) 100 UNIT/ML VIAL SQ SCH (17:05)
[2024-06-01] MEDS: CLOPIDOGREL 75 MG TAB PO SCH (17:05)
[2024-06-01 17:25] LABS: Glucose,Whole Blood 88 mg/dL (70-110)
[2024-06-01 20:22] LABS: Glucose,Whole Blood 129 mg/dL (70-110)
[2024-06-01] MEDS: RANOLAZINE 500 MG TAB.ER.12H PO SCH (20:32)
[2024-06-01] MEDS: METOPROLOL TARTRATE 25 MG TAB PO SCH (20:32)
[2024-06-01] MEDS: ALPRAZolam 0.5 MG TAB PO PRN (20:45)
[2024-06-01] MEDS ORDERED: NON FORMULARY DRUG (Omeprazole [Omeprazole] 40 MG Capsule.Dr) PO SCH (21:00)
--- NOTE | 2024-06-02 06:55 | P.PN ---
Progress Note - Text Progress Note Date: 06/02/24 Patient seen and examined. NAEO. Right sided abdominal pain is improving. WBC is trending down. AM labs pending this morning General Exam Limitations: no limitations General appearance: alert, in no apparent distress Head exam: Present: atraumatic, normocephalic, normal inspection Eye exam: Present: normal appearance, PERRL, EOMI. Absent: scleral icterus, conjunctival injection, periorbital swelling Neck exam: Present: normal inspection. Absent: tenderness, meningismus, lymphadenopathy Respiratory exam: Present: wheezes, decreased breath sounds. Absent: respiratory distress, rales, rhonchi, stridor Cardiovascular Exam: Present: regular rate, normal rhythm, normal heart sounds. Absent: systolic murmur, diastolic murmur, rubs, gallop, clicks GI/Abdominal exam: Present: soft, tenderness (right sided, suprapubic), normal bowel sounds. Absent: distended, guarding, rebound, rigid Extremities exam: Present: normal inspection, full ROM, normal capillary refill. Absent: tenderness, pedal edema, joint swelling, calf tenderness Back exam: Present: normal inspection Skin exam: Present: warm, dry, intact, normal color. Absent: rash Assessment/Plan 1. Right Colon Colitis/Inflammation with Leukocytosis -Advanced to FLD -Rocephin/Flagyl -IV fluids -Pain and Nausea Control -AM labs -Further recs to follow pending patients clinical course Freeman Portillo DO [facility] [phone]
[2024-06-02 07:05] LABS: Glucose,Whole Blood 105 mg/dL (70-110)
[2024-06-02] MEDS: ATORVASTATIN 80 MG TAB PO SCH (07:35)
[2024-06-02] MEDS: amLODIPine 10 MG TAB PO SCH (07:35)
[2024-06-02] MEDS: ISOSORBIDE MONONITRATE ER 30 MG TAB.ER.24H PO SCH (07:35)
[2024-06-02] MEDS: lisinopriL 10 MG TAB PO SCH (07:36)
[2024-06-02 09:36] LABS: Basophils # (A) 0.03 X 10*3/uL (0.00-0.10); Basophils % (A) 0.3 %; Eosinophils % (A) 1.9 %; HCT 34.8 % (37.2-46.3); HGB 10.6 g/dL (12.0-15.0); Lymphocytes # (A) 1.54 X 10*3/uL (0.90-5.00); Lymphocytes % (A) 14.7 %; MCH 26.9 pg (27.0-32.0); MCHC 30.5 g/dL (32.0-37.0); MCV 88.3 FL (80.0-97.0); Mean Platelet Volume 11.1 FL (9.5-12.2); Monocytes # (A) 0.77 X 10*3/uL (0.20-1.00); Monocytes % (A) 7.4 %; NRBC Per 100 WBC 0 X 10*3/uL (0.00-0.01); Neutrophils # (A) 7.85 X 10*3/uL (1.80-7.70); Neutrophils % (A) 75.1 %; Platelet Count 320 X 10*3/uL (140-440); RBC 3.94 X 10*6/uL (4.10-5.20); RDW 17.6 % (11.5-14.5); WBC 10.45 X 10*3/uL (4.50-10.00)
[2024-06-02 10:40] LABS: ALT 8 U/L (8-44); AST 14 U/L (13-35); Albumin 3.3 g/dL (3.8-4.9); Albumin/Globulin Ratio 1.83 Ratio (1.60-3.17); Alkaline Phosphatase 104 U/L (41-126); BUN/Creat Ratio 9.88 Ratio (12.00-20.00); Blood Urea Nitrogen 7.9 mg/dL (9.0-27.0); Calcium 8.3 mg/dL (8.7-10.3); Carbon Dioxide 21.6 mmol/L (21.6-31.8); Chloride 110 mmol/L (96-109); Globulin 1.8 g/dL (1.6-3.3); Glucose 96 mg/dL (70-110); Potassium 4.6 mmol/L (3.5-5.5); Sodium 140 mmol/L (135-145); Total Bilirubin 0.3 mg/dL (0.3-1.2); Total Protein 5.1 g/dL (6.2-8.2)
[2024-06-02 12:11] LABS: Glucose,Whole Blood 107 mg/dL (70-110)
--- NOTE | 2024-06-02 14:22 | P.PN ---
Subjective Progress Note Date: 06/02/24 Interval History: Patient is a 53-year-old female with diabetes, hypertension, COPD who presented to the emergency department last night with complaints of right-sided abdominal pain for several hours. She notes that the pain started while she was resting, it is constant and stabbing, does not radiate, worsens with breathing. She attempted to take aspirin to relieve the pain but it did not help. She denies radiation of the pain. She endorses nausea without vomiting. She was discharged from the hospital on 05/29/2024 after chest pain evaluation. She denies fever, chills, vomiting, chest pain, shortness of breath, hematochezia, melena, hematuria, dysuria. She was started on IV antibiotics and made n.p.o. status. CT abdomen/pelvis: Minimal inflammatory changes adjacent to the cecum and term inal ileum, appendix appears normal, mild wall thickening of the splenic flexure, multiple dilated small bowel loops containing fluid, ileus may be present, no obstruction identified. WBCs 25.5, hemoglobin 12.1, troponin <0.012. Remainder of labs unremarkable. Afebrile, normotensive. 06/01. Patient seen and examined laying in bed. She endorses continued right- sided abdominal discomfort but improved from yesterday, now states pain is 9/10. She endorses nausea and 2 episodes of watery diarrhea in the last 24 hours. She denies chest pain, shortness of breath, vomiting. WBCs 11.5, downtrending. Hemoglobin 10.5, sodium 134, chloride 109. 06/02/2024--patient was seen and examined today. Abdominal pain is gradually improving, nausea and vomiting is better. Still complain of loose stool, has 1 loose stool this morning. C. difficile pending. Vital stable. Afebrile. Saturating 95% on 3 L. WBCs trending down to 10.45, hemoglobin stable at 10.6, platelet normal. BMP unremarkable. HbA1c 6.9. Assessment and plan: Colitis: Presented with right-sided abdominal pain for several hours, complain of loose stools, nausea. CT abdomen pelvis showed mild inflammatory changes adjacent to cecum and terminal ileum, appendix appears normal, mild wall thickening of the splenic flexure, multiple dilated small bowel loops containing fluid, ileus may be present. No obstruction. Leukocytosis on presentation, improving Continue Rocephin and Flagyl IV fluids Symptomatic management CT pending General Surgery consultedfollowing, recommended to advance to full liquid diet today. History of coronary artery disease Diabetes mellitus Hypertension Hyperlipidemia DVT prophylaxis: SCD PHYSICAL EXAMINATION: GENERAL: The patient is A&O x3, NAD HEENT: EOMI, Sclerae anicteric, Moist Mucous membranes Neck: Supple, Non tender, No JVD PULMONARY: Equal breath souds B/L, No wheezing, No crackles. CARDIOVASCULAR: S1, S2 present. No murmurs, rubs, or gallops. ABDOMEN: Soft, RLQ tender, nondistended, normoactive bowel sounds. No guarding or rebound tenderness. MUSCULOSKELETAL: No edema, No cyanosis. No clubbing. Normal ROM. Intact peripheral pulses. EXTREMITIES: No cyanosis, clubbing, or pedal edema. NEUROLOGICAL: CN 2-12 grossly intact. No FND Skin: No Rash REVIEW OF SYSTEMS: CONSTITUTIONAL: No fever or chills. CARDIOVASCULAR: No chest pain, palpitations or syncope. PULMONARY: No shortness of breath, no cough, sore throat. GASTROINTESTINAL: c/ of right lower quadrant abdominal pain and loose stool : No Dysuria, urgency, frequency. Extremities: No edema. NEUROLOGICAL: No headaches, no weakness, or numbness Dictation was produced using [employer] dictation software. please excuse any grammatical, word or spelling errors. Objective - Vital Signs Vital signs: Vital Signs Temp 98.0 F 06/02/24 11:48 Pulse 75 06/02/24 11:48 Resp 18 06/02/24 11:48 BP 93/56 06/02/24 11:48 Pulse Ox 95 06/02/24 11:48 FiO2 Intake & Output 06/01/24 06/02/24 06/02/24 18:59 06:59 18:59 Intake Total 1778 Balance 1778 Intake: Oral 1778 Other: Voiding Method Toilet Toilet Toilet # Voids 2 1 # Bowel Movements 3 0 - Labs CBC & Chem 7: 06/02/24 03:40 06/02/24 03:40 Labs: Abnormal Lab Results - Last 24 Hours (Table) 06/01/24 06/01/24 06/02/24 Range/Units 17:02 20:21 03:40 WBC (4.50-10.00) X 10*3/uL RBC (4.10-5.20) X 10*6/uL Hgb (12.0-15.0) g/dL Hct (37.2-46.3) % MCH (27.0-32.0) pg MCHC (32.0-37.0) g/dL RDW (11.5-14.5) % Immature Gran # (0.00-0.04) X 10*3/uL Neutrophils # (1.80-7.70) X 10*3/uL Chloride (96-109) mmol/L BUN (9.0-27.0) mg/dL BUN/Creatinine Ratio (12.00-20.00) Ratio POC Glucose (mg/dL) 69 L 129 H (70-110) mg/dL Hemoglobin A1c 6.9 H (<=6.0) % Calcium (8.7-10.3) mg/dL Total Protein (6.2-8.2) g/dL Albumin (3.8-4.9) g/dL 06/02/24 06/02/24 Range/Units 03:40 03:40 WBC 10.45 H (4.50-10.00) X 10*3/uL RBC 3.94 L (4.10-5.20) X 10*6/uL Hgb 10.6 L (12.0-15.0) g/dL Hct 34.8 L (37.2-46.3) % MCH 26.9 L (27.0-32.0) pg MCHC 30.5 L (32.0-37.0) g/dL RDW 17.6 H (11.5-14.5) % Immature Gran # 0.06 H (0.00-0.04) X 10*3/uL Neutrophils # 7.85 H (1.80-7.70) X 10*3/uL Chloride 110 H (96-109) mmol/L BUN 7.9 L (9.0-27.0) mg/dL BUN/Creatinine Ratio 9.88 L (12.00-20.00) Ratio POC Glucose (mg/dL) (70-110) mg/dL Hemoglobin A1c (<=6.0) % Calcium 8.3 L (8.7-10.3) mg/dL Total Protein 5.1 L (6.2-8.2) g/dL Albumin 3.3 L (3.8-4.9) g/dL
[2024-06-02] MEDS: ONDANSETRON 4 MG/2 ML VIAL IVP PRN (15:46)
[2024-06-02 17:05] LABS: Glucose,Whole Blood 116 mg/dL (70-110)
[2024-06-02 19:48] LABS: Glucose,Whole Blood 135 mg/dL (70-110)
[2024-06-03 06:50] LABS: Glucose,Whole Blood 103 mg/dL (70-110)
[2024-06-03 08:54] LABS: Basophils # (A) 0.04 X 10*3/uL (0.00-0.10); Basophils % (A) 0.5 %; Eosinophils % (A) 2.4 %; HGB 10.9 g/dL (12.0-15.0); Lymphocytes # (A) 2.02 X 10*3/uL (0.90-5.00); Lymphocytes % (A) 24.6 %; MCH 27.6 pg (27.0-32.0); MCHC 31.1 g/dL (32.0-37.0); MCV 88.6 FL (80.0-97.0); Mean Platelet Volume 10.2 FL (9.5-12.2); Monocytes # (A) 0.85 X 10*3/uL (0.20-1.00); Monocytes % (A) 10.4 %; NRBC Per 100 WBC 0 X 10*3/uL (0.00-0.01); Neutrophils # (A) 5.04 X 10*3/uL (1.80-7.70); Neutrophils % (A) 61.4 %; Platelet Count 329 X 10*3/uL (140-440); RBC 3.95 X 10*6/uL (4.10-5.20); RDW 17.3 % (11.5-14.5); WBC 8.21 X 10*3/uL (4.50-10.00)
[2024-06-03 09:02] LABS: ALT 7 U/L (8-44); AST 11 U/L (13-35); Albumin 3.3 g/dL (3.8-4.9); Albumin/Globulin Ratio 1.83 Ratio (1.60-3.17); Alkaline Phosphatase 98 U/L (41-126); BUN/Creat Ratio 5.25 Ratio (12.00-20.00); Blood Urea Nitrogen 4.2 mg/dL (9.0-27.0); Calcium 8.6 mg/dL (8.7-10.3); Chloride 107 mmol/L (96-109); Globulin 1.8 g/dL (1.6-3.3); Glucose 96 mg/dL (70-110); Potassium 4.4 mmol/L (3.5-5.5); Sodium 142 mmol/L (135-145); Total Bilirubin 0.4 mg/dL (0.3-1.2); Total Protein 5.1 g/dL (6.2-8.2)
[2024-06-03 11:44] LABS: Glucose,Whole Blood 112 mg/dL (70-110)
[2024-06-03] MEDS ORDERED: predniSONE 20 MG TAB PO SCH (12:30)
[2024-06-03 12:57] VITALS: BP 103/68; PULSE 79; RESP 20; TEMP 97.8
--- NOTE | 2024-06-03 13:26 | P.PN ---
Progress Note - Text Progress Note Date: 06/03/24 Patient seen and examined. NAEO. Right sided abdominal pain is improving. WBC has normalized. General Exam Limitations: no limitations General appearance: alert, in no apparent distress Head exam: Present: atraumatic, normocephalic, normal inspection Eye exam: Present: normal appearance, PERRL, EOMI. Absent: scleral icterus, conjunctival injection, periorbital swelling Neck exam: Present: normal inspection. Absent: tenderness, meningismus, lymphadenopathy Respiratory exam: Present: wheezes, decreased breath sounds. Absent: respiratory distress, rales, rhonchi, stridor Cardiovascular Exam: Present: regular rate, normal rhythm, normal heart sounds. Absent: systolic murmur, diastolic murmur, rubs, gallop, clicks GI/Abdominal exam: Present: soft, tenderness (right sided, suprapubic), normal bowel sounds. Absent: distended, guarding, rebound, rigid Extremities exam: Present: normal inspection, full ROM, normal capillary refill. Absent: tenderness, pedal edema, joint swelling, calf tenderness Back exam: Present: normal inspection Skin exam: Present: warm, dry, intact, normal color. Absent: rash Assessment/Plan 1. Right Colon Colitis/Inflammation with Leukocytosis -Advanced to LFD -Rocephin/Flagyl -IV fluids -Pain and Nausea Control -AM labs -Will need outpatient colonoscopy in 4-6 weeks. Ok for discharge from surgery standpoint if tolerates diet Freeman Portillo [facility] [phone]
--- NOTE | 2024-06-03 14:33 | P.DS ---
Providers Date of admission: 05/30/24 22:42 Attending physician: Hiro Morse MD I have performed a history and physical examination and medical decision making of this patient, discussed the same with the the resident, and agree with the assessment and plan as written. I performed brief physical exam. Consults: 05/30/24 22:42 Consult Physician Routine Consulting Provider: Freeman Portillo Consult Reason/Comments: ileus Do you want consulting provider notified?: Yes, Notify in am Primary care physician: Kemar Jin MD Hospital Course: Discharge diagnoses; #. Right colon colitis #. Inflammation with leukocytosis Can begin clear liquid diet as per surgery Rocephin; patient discharged on 500 mg twice daily of Ceftin and 500 mg 3 times daily of Flagyl to be continued for 6 days IV fluids Pain and nausea control; patient discharged with 3 days worth of [place] 5 Monitor CBC/CMP #. Diarrhea Obtain c.diff PCR History of coronary artery disease Diabetes mellitus Hypertension Hyperlipidemia Hospital course; 53-year-old female with diabetes, hypertension, COPD who presented to the emergency department last night with complaints of right-sided abdominal pain for several hours. She notes that the pain started while she was resting, it is constant and stabbing, does not radiate, worsens with breathing. She attempted to take aspirin to relieve the pain but it did not help. She denies radiation of the pain. She endorses nausea without vomiting. She was discharged from the hospital on 05/29/2024 after chest pain evaluation. She denies fever, chills, vomiting, chest pain, shortness of breath, hematochezia, melena, hematuria, dysuria. She was started on IV antibiotics and made n.p.o. status. CT abdomen/pelvis: Minimal inflammatory changes adjacent to the cecum and t erminal ileum, appendix appears normal, mild wall thickening of the splenic flexure, multiple dilated small bowel loops containing fluid, ileus may be present, no obstruction identified. WBCs 25.5, hemoglobin 12.1, troponin <0.012. Remainder of labs unremarkable. Afebrile, normotensive. 06/01. Patient seen and examined laying in bed. She endorses continued right- sided abdominal discomfort but improved from yesterday, now states pain is 9/10. She endorses nausea and 2 episodes of watery diarrhea in the last 24 hours. She denies chest pain, shortness of breath, vomiting. WBCs 11.5, downtrending. Hemoglobin 10.5, sodium 134, chloride 109. 06/02/2024--patient was seen and examined today. Abdominal pain is gradually improving, nausea and vomiting is better. Still complain of loose stool, has 1 loose stool this morning. C. difficile pending. Vital stable. Afebrile. Saturating 95% on 3 L. WBCs trending down to 10.45, hemoglobin stable at 10.6, platelet normal. BMP unremarkable. HbA1c 6.9. 06/03 - patient seen at bedside today. States that she is feeling well, with moderate to minimal discomfort in her abdomen, which has been improving. Her white blood cell count has normalized. From surgery's perspective patient is cleared for discharge, which the patient was very excited. Patient will be discharged home 500 mg twice daily of Ceftin and 500 mg 3 times daily of met ronidazole as well as with 3 days of [place] 5 for her pain. Patient understands to follow-up with Dr. Portillo to further schedule a future colonoscopy when the colitis has resolved. PHYSICAL EXAMINATION: GENERAL: The patient is alert and oriented x3, not in any acute distress. Well developed, well nourished. HEENT: Pupils are round and equally reacting to light. EOMI. No scleral icterus. No conjunctival pallor. Normocephalic, atraumatic. No pharyngeal erythema. No thyromegaly. CARDIOVASCULAR: S1 and S2 present. No murmurs, rubs, or gallops. PULMONARY: Chest is clear to auscultation, no wheezing or crackles. ABDOMEN: Soft, some tenderness, nondistended, normoactive bowel sounds. No palpable organomegaly. MUSCULOSKELETAL: No joint swelling or deformity. EXTREMITIES: No cyanosis, clubbing, or pedal edema. NEUROLOGICAL: Gross neurological examination did not reveal any focal deficits. SKIN: No rashes. Dictation was produced using [employer] soft;ojeda. please excuse any gr ammatical, word or spelling errors. Patient Condition at Discharge: Stable Plan - Discharge Summary Discharge Rx Participant: No New Discharge Prescriptions: New cefUROXime axetiL [Ceftin] 500 mg PO BID 6 Days #12 tab metroNIDAZOLE [Flagyl] 500 mg PO TID 6 Days #18 tab Cholestyramine (with Sugar) [Questran] 4 gm PO BID #60 packet Continue Atorvastatin [Lipitor] 80 mg PO DAILY Ranolazine [Ranexa] 1,000 mg PO BID metFORMIN HCL 1,000 mg PO BID Nitroglycerin Sl Tabs [Nitrostat] 0.4 mg SL Q5M PRN PRN Reason: Chest Pain Aspirin EC [Ecotrin Low Dose] 81 mg PO DAILY Albuterol Inhaler [Ventolin Hfa Inhaler] 2 puff INHALATION RT-QID PRN PRN Reason: Shortness Of Breath Isosorbide Mononitrate ER [Imdur] 30 mg PO DAILY Insulin Lispro [humaLOG Kwikpen] See Protocol SQ AC-TID Dapagliflozin Propanediol [Farxiga] 5 mg PO DAILY Dulaglutide [Trulicity] 3 mg SQ WE Ipratropium-Albuterol Nebulize [Duoneb 0.5 mg-3 mg/3 ml Soln] 3 ml INHALATION RT-TID Spiriva Respimat 1.25mcg/Actuation Mist 2 puff INHALATION RT-DAILY Ondansetron Odt [Zofran ODT] 4 mg PO Q8HR PRN PRN Reason: Nausea lisinopriL [Zestril] 10 mg PO DAILY HYDROcodone/APAP 5-325MG [[place] 5-325] 1 tab PO BID PRN 3 Days #6 tab PRN Reason: Pain rOPINIRole HCL [Requip] 1 mg PO HS amLODIPine [Norvasc] 10 mg PO DAILY Omeprazole 40 mg PO BID Budesonide/Formoterol Fumarate [Symbicort 160-4.5 Mcg Inhaler] 2 puff INHALATION RT-BID Pregabalin [Lyrica] 150 mg PO TID Clopidogrel [Plavix] 75 mg PO DAILY ALPRAZolam [Xanax] 0.5 mg PO BID PRN PRN Reason: Anxiety Mag Hydrox/Al Hydrox/Simeth [Maalox] 30 ml PO QID PRN 2 Days #180 ml PRN Reason: Heartburn Metoprolol Tartrate [Lopressor] 25 mg PO BID #60 tab Albuterol Nebulized [Ventolin Nebulized] 2.5 mg INHALATION RT-Q6H PRN PRN Reason: Shortness Of Breath Discharge Medication List Atorvastatin [Lipitor] 80 mg PO DAILY 07/08/20 [History] Ranolazine [Ranexa] 1,000 mg PO BID 11/13/21 [History] Albuterol Inhaler [Ventolin Hfa Inhaler] 2 puff INHALATION RT-QID PRN 03/27/23 [History] Aspirin EC [Ecotrin Low Dose] 81 mg PO DAILY 03/27/23 [History] Budesonide/Formoterol Fumarate [Symbicort 160-4.5 Mcg Inhaler] 2 puff INHALATION RT-BID 03/27/23 [History] Clopidogrel [Plavix] 75 mg PO DAILY 03/27/23 [History] Nitroglycerin Sl Tabs [Nitrostat] 0.4 mg SL Q5M PRN 03/27/23 [History] Omeprazole 40 mg PO BID 03/27/23 [History] Pregabalin [Lyrica] 150 mg PO TID 03/27/23 [History] amLODIPine [Norvasc] 10 mg PO DAILY 03/27/23 [History] metFORMIN HCL 1,000 mg PO BID 03/27/23 [History] rOPINIRole HCL [Requip] 1 mg PO HS 03/27/23 [History] ALPRAZolam [Xanax] 0.5 mg PO BID PRN 06/22/23 [History] Dapagliflozin Propanediol [Farxiga] 5 mg PO DAILY 03/16/24 [History] Dulaglutide [Trulicity] 3 mg SQ WE 03/16/24 [History] Insulin Lispro [humaLOG Kwikpen] See Protocol SQ AC-TID 03/16/24 [History] Ipratropium-Albuterol Nebulize [Duoneb 0.5 mg-3 mg/3 ml Soln] 3 ml INHALATION RT-TID 03/16/24 [History] Isosorbide Mononitrate ER [Imdur] 30 mg PO DAILY 03/16/24 [History] Mag Hydrox/Al Hydrox/Simeth [Maalox] 30 ml PO QID PRN 2 Days #180 ml 05/22/24 [Rx] Spiriva Respimat 1.25mcg/Actuation Mist 2 puff INHALATION RT-DAILY 05/24/24 [History] Metoprolol Tartrate [Lopressor] 25 mg PO BID #60 tab 05/29/24 [Rx] Albuterol Nebulized [Ventolin Nebulized] 2.5 mg INHALATION RT-Q6H PRN 05/31/24 [History] Ondansetron Odt [Zofran ODT] 4 mg PO Q8HR PRN 05/31/24 [History] lisinopriL [Zestril] 10 mg PO DAILY 05/31/24 [History] Cholestyramine (with Sugar) [Questran] 4 gm PO BID #60 packet 06/03/24 [Rx] HYDROcodone/APAP 5-325MG [[place] 5-325] 1 tab PO BID PRN 3 Days #6 tab 06/03/24 [Rx] cefUROXime axetiL [Ceftin] 500 mg PO BID 6 Days #12 tab 06/03/24 [Rx] metroNIDAZOLE [Flagyl] 500 mg PO TID 6 Days #18 tab 06/03/24 [Rx] Follow up Appointment(s)/Referral(s): Kemar Jin MD [Primary Care Provider] - 1-2 days ( ) Freeman Portillo DO [Medical Doctor] - 06/11/24 9:00 am (appointment is with Dr. Dubois) Patient Instructions/Handouts: Cefuroxime (By mouth), Hydrocodone/Acetaminophen (By mouth), Cholestyramine (By mouth), Metronidazole (By mouth), Colitis (ED) Discharge Disposition: HOME SELF-CARE
== END 2024-06-03 16:42 | disposition home or self-care (01) ==
LOC: EC 18:46 → 6NMEDSUR 22:42 → 5NMEDONC 05-31 05:24
PROVIDERS: ADMIT Hospitalist; ATTEND Hospitalist
DX: K52.9 Noninfective gastroenteritis and colitis, unspecified (principal); E11.9 Type 2 diabetes mellitus without complications; I10 Essential (primary) hypertension; J44.9 Chronic obstructive pulmonary disease, unspecified; I25.10 Atherosclerotic heart disease of native coronary artery without angina pectoris; K21.9 Gastro-esophageal reflux disease without esophagitis; F31.9 Bipolar disorder, unspecified; F41.9 Anxiety disorder, unspecified; E78.5 Hyperlipidemia, unspecified; I25.2 Old myocardial infarction; F17.200 Nicotine dependence, unspecified, uncomplicated; Z56.0 Unemployment, unspecified; Z95.5 Presence of coronary angioplasty implant and graft; Z79.899 Other long term (current) drug therapy; Z79.82 Long term (current) use of aspirin; Z79.51 Long term (current) use of inhaled steroids; Z79.02 Long term (current) use of antithrombotics/antiplatelets; Z79.84 Long term (current) use of oral hypoglycemic drugs; Z79.85 Long-term (current) use of injectable non-insulin antidiabetic drugs; Z79.4 Long term (current) use of insulin
CPT/HCPCS: 36415; 74177; 80053; 81001; 82150; 83036; 83605; 83690; 84484; 85025; 87324; 93005; 94640; 96361; 96365; 96366; 96367; 96368; 96375; 96376; 99285

== ENCOUNTER 2024-06-05 18:11 | Inpatient (IN) | payer OTHER ==
[2024-06-05] MEDS: METOCLOPRAMIDE 5 MG/ML 2 ML VIAL IVP STA (19:42)
[2024-06-05] MEDS: MORPHINE SULFATE 4 MG/ML SYRINGE IVP STA (19:42)
[2024-06-05] MEDS: SODIUM CHLORIDE 0.9% 1,000 ML IV STA (19:42)
[2024-06-05 20:03] LABS: Anisocytosis Slight; Basophils # (A) 0.1 k/uL (0-0.2); Basophils % (A) 1 %; Eosinophils # (A) 0.2 k/uL (0-0.7); Eosinophils % (A) 2 %; HGB 13.4 gm/dL (11.4-16.0); Hypochromasia Slight; Lymphocytes # (A) 2.7 k/uL (1.0-4.8); Lymphocytes % (A) 22 %; MCH 26.8 pg (25.0-35.0); MCHC 31.2 g/dL (31.0-37.0); Mean Platelet Volume 7.7; Monocytes # (A) 0.5 k/uL (0-1.0); Monocytes % (A) 4 %; Neutrophils # (A) 8.6 k/uL (1.3-7.7); Neutrophils % (A) 70 %; Platelet Count 580 k/uL (150-450); RDW 16.8 % (11.5-15.5); WBC 12.3 k/uL (3.8-10.6)
[2024-06-05 20:12] LABS: ALT 10 U/L (4-34); AST 24 U/L (14-36); African American GFR (CKD) 89 (>60 ml/min/1.73 sqM); Alkaline Phosphatase 107 U/L (38-126); Amylase 39 U/L (30-110); Anion Gap 12 mmol/L; Blood Urea Nitrogen 6 mg/dL (7-17); Calcium 9.7 mg/dL (8.4-10.2); Carbon Dioxide 20 mmol/L (22-30); Chloride 108 mmol/L (98-107); Glucose 119 mg/dL (74-99); Lipase 35 U/L (23-300); Non-African American GFR(CKD) 77 (>60 ml/min/1.73 sqM); Potassium 3.8 mmol/L (3.5-5.1); Sodium 140 mmol/L (137-145); Total Bilirubin 0.7 mg/dL (0.2-1.3); Total Protein 6.7 g/dL (6.3-8.2)
[2024-06-05 20:15] LABS: Appearance,Urine Clear (Clear); Bilirubin,Urine Negative (Negative); Blood,Urine Negative (Negative); Color,Urine Yellow; Glucose,Urine (UA) Negative (Negative); Hyaline Casts,Urine 5 /lpf (0-2); Ketones,Urine Negative (Negative); Leukocyte Esterase,Urine Small (Negative); Mucus,Urine Moderate /hpf; Nitrite,Urine Negative (Negative); Protein,Urine 1+ (Negative); RBC,Urine 1 /hpf (0-5); Squamous Epithelial Cell,Urine 2 /hpf (0-4); Urobilinogen,Urine <2.0 mg/dL (<2.0); WBC,Urine 4 /hpf (0-5)
--- NOTE | 2024-06-05 21:37 | CT ---
EXAMINATION TYPE: CT abdomen pelvis w con CT DLP: 1091.8 mGycm, Automated exposure control for dose reduction was used. DATE OF EXAM: 06/05/2024 9:16 PM COMPARISON: CT abdomen pelvis most recent from 05/30/2024. CLINICAL INDICATION:Female, 53 years old with history of abdominal pain; abdominal pain TECHNIQUE: Standard CT of the abdomen and pelvis following the administration of 100 cc of Isovue 3 00 IV contrast material. Coronal and sagittal reformats were performed. FINDINGS: LOWER CHEST: Unremarkable ABDOMEN LIVER: Unremarkable GALLBLADDER AND BILE DUCTS: Prominent gallbladder without evidence of wall thickening surrounding flu id. No biliary ductal dilatation. PANCREAS: Unremarkable. SPLEEN: Unremarkable. ADRENAL GLANDS: Unremarkable. KIDNEYS AND URETERS: No evidence of hydronephrosis or renal calculus. The kidneys enhance symmetrical ly. Contrast is demonstrated within the collecting system on the delayed phase. Focal region within t he upper pole of the right kidney and cortical thinning. Likely related to prior insult. PELVIS BLADDER: Incompletely distended but grossly unremarkable. REPRODUCTIVE: Unremarkable. ABDOMEN & PELVIS STOMACH AND BOWEL: Stomach and duodenum are unremarkable. There is circumferential mild wall thickeni ng of the cecum with surrounding fat stranding. On the superior aspect of the cecum is a 2.3 cm fluid collection without gas (series 201, image 50, and series 202, image 36). This is situated amongst sood rrounding bowel loops. Few distal colonic diverticula without evidence for acute diverticulitis. Few small bowel loops in the pelvis demonstrate air-fluid levels with distention measuring up to 3.7 cm. No focal transition point. The appendix is within normal limits. PERITONEUM: No evidence of pneumoperitoneum or free fluid. VASCULATURE: Mild atherosclerotic calcifications are present throughout the abdominal aorta and its b ranches. No evidence of aortic aneurysm. MUSCULOSKELETAL: No acute osseous abnormalities. Mild disc degeneration changes are present throughou t the thoracolumbar spine. LYMPH NODES: No gross evidence for lymphadenopathy. SOFT TISSUE/ABDOMINAL WALL: Unremarkable IMPRESSION: 1. Inflammatory changes involving the cecum with adjacent 2.3 cm organized fluid collection favored to represent an intramural wall abscess. Etiologies include an infectious/inflammatory process. 2. Reactive small bowel ileus.
[2024-06-05] MEDS ORDERED: NALOXONE 0.4 MG/ML 1 ML VIAL IV PRN (23:00)
--- NOTE | 2024-06-05 23:04 | ED ---
Abdominal Pain HPI - General Chief Complaint: Abdominal Pain Stated Complaint: Abd Pain Time Seen by Provider: 06/05/24 19:11 Source: patient, EMS Mode of arrival: EMS - History of Present Illness Initial Comments: 53-year-old female present with chief complaint of abdominal pain. Patient was seen here recently for colitis and ileus and was discharged on the . She returns today with worsening right-sided abdominal pain. She also admits to nausea vomiting diarrhea. States that she did have an episode of vomiting blood yesterday, no vomiting of blood today. She did have a bloody nose today. No chest pain or difficulty breathing. Admits to chills. No urinary symptoms. No hematochezia or melena. - Related Data Home Medications Medication Instructions Recorded Confirmed Atorvastatin [Lipitor] 80 mg PO DAILY 07/08/20 06/06/24 Ranolazine [Ranexa] 1,000 mg PO BID 11/13/21 06/06/24 Albuterol Inhaler [Ventolin Hfa 2 puff INHALATION RT-QID PRN 03/27/23 06/06/24 Inhaler] Aspirin EC [Ecotrin Low Dose] 81 mg PO DAILY 03/27/23 06/06/24 Budesonide/Formoterol Fumarate 2 puff INHALATION RT-BID 03/27/23 06/06/24 [Symbicort 160-4.5 Mcg Inhaler] Clopidogrel [Plavix] 75 mg PO DAILY 03/27/23 06/06/24 Nitroglycerin Sl Tabs [Nitrostat] 0.4 mg SL Q5M PRN 03/27/23 06/06/24 Omeprazole 40 mg PO BID 03/27/23 06/06/24 Pregabalin [Lyrica] 150 mg PO TID 03/27/23 06/06/24 amLODIPine [Norvasc] 10 mg PO DAILY 03/27/23 06/06/24 metFORMIN HCL 1,000 mg PO BID 03/27/23 06/06/24 rOPINIRole HCL [Requip] 1 mg PO HS 03/27/23 06/06/24 ALPRAZolam [Xanax] 0.5 mg PO BID PRN 06/22/23 06/06/24 Dapagliflozin Propanediol [Farxiga] 5 mg PO DAILY 03/16/24 06/06/24 Dulaglutide [Trulicity] 3 mg SQ WE 03/16/24 06/06/24 Insulin Lispro [humaLOG Kwikpen] See Protocol SQ AC-TID 03/16/24 06/06/24 Ipratropium-Albuterol Nebulize 3 ml INHALATION RT-TID 03/16/24 06/06/24 [Duoneb 0.5 mg-3 mg/3 ml Soln] Isosorbide Mononitrate ER [Imdur] 30 mg PO DAILY 03/16/24 06/06/24 Spiriva Respimat 1.25mcg/Actuation 2 puff INHALATION RT-DAILY 05/24/24 06/06/24 Mist Albuterol Nebulized [Ventolin 2.5 mg INHALATION RT-Q6H PRN 05/31/24 06/06/24 Nebulized] Ondansetron Odt [Zofran ODT] 4 mg PO Q8HR PRN 05/31/24 06/06/24 lisinopriL [Zestril] 10 mg PO DAILY 05/31/24 06/06/24 Previous Rx's Medication Instructions Recorded Mag Hydrox/Al Hydrox/Simeth 30 ml PO QID PRN 2 Days #180 ml 05/22/24 [Maalox] Metoprolol Tartrate [Lopressor] 25 mg PO BID #60 tab 05/29/24 Cholestyramine (with Sugar) 4 gm PO BID #60 packet 06/03/24 [Questran] HYDROcodone/APAP 5-325MG [[place] 1 tab PO BID PRN 3 Days #6 tab 06/03/24 5-325] cefUROXime axetiL [Ceftin] 500 mg PO BID 6 Days #12 tab 06/03/24 metroNIDAZOLE [Flagyl] 500 mg PO TID 6 Days #18 tab 06/03/24 Allergies Allergy/AdvReac Type Severity Reaction Status Date / Time No Known Allergies Allergy Verified 06/06/24 09:35 Review of Systems ROS Statement: Those systems with pertinent positive or pertinent negative responses have been documented in the HPI. ROS Other: All systems not noted in ROS Statement are negative. Past Medical History Past Medical History: Asthma, Coronary Artery Disease (CAD), COPD, Diabetes Mellitus, GERD/Reflux, Hypertension, Myocardial Infarction ([place]), Osteoarthritis (OA) Additional Past Medical History / Comment(s): DDD, scoliosis Last Myocardial Infarction Date:: 2011 History of Any Multi-Drug Resistant Organisms: None Reported Past Surgical History: Coronary Bypass/CABG, Heart Catheterization With Stent Additional Past Surgical History / Comment(s): seven stents Past Anesthesia/Blood Transfusion Reactions: No Reported Reaction Date of Last Stent Placement:: 11/2018 Past Psychological History: Anxiety, Bipolar Smoking Status: Current every day smoker Past Alcohol Use History: None Reported Past Drug Use History: Marijuana - Past Family History Mother Family Medical History: Cancer Additional Family Medical History / Comment(s): Ovarian cancer Father Family Medical History: Congestive Heart Failure (CHF) Fmily Family Medical History: No Reported History General Exam General appearance: alert, in no apparent distress Head exam: Present: atraumatic, normocephalic Eye exam: Present: normal appearance, EOMI Neck exam: Present: normal inspection. Absent: meningismus Respiratory exam: Present: normal lung sounds bilaterally. Absent: respiratory distress, wheezes, rales, rhonchi, stridor Cardiovascular Exam: Present: normal rhythm, tachycardia, normal heart sounds. Absent: systolic murmur, diastolic murmur, rubs, gallop, clicks GI/Abdominal exam: Present: soft, tenderness. Absent: distended, guarding, izabella ound, rigid Neurological exam: Present: alert, oriented X3 Psychiatric exam: Present: normal affect, normal mood Skin exam: Present: warm, dry Course Vital Signs 06/05/24 06/05/24 06/06/24 18:14 21:25 00:15 Pulse Rate 116 H 99 85 Respiratory 20 16 16 Rate Blood Pressure 156/88 161/88 101/67 O2 Sat by Pulse 98 98 96 Oximetry Medical Decision Making - Medical Decision Making Was pt. sent in by a medical professional or institution (, PA, YOUTH NUTRITIONAL MONITOR, urgent care, hospital, or group home...) When possible be specific @ -No Did you speak to anyone other than the patient for history (EMS, parent, family, police, friend...)? What history was obtained from this source @ -No Did you review nursing and triage notes (agree or disagree)? Why? @ -I reviewed and agree with nursing and triage notes Were old charts reviewed (outside hosp., previous admission, EMS record, old EKG, old radiological studies, urgent care reports/EKG's, group home records)? Report findings @ -No old charts were reviewed Differential Diagnosis (chest pain, altered mental status, abdominal pain women, abdominal pain men, vaginal bleeding, weakness, fever, dyspnea, syncope, headache, dizziness, GI bleed, back pain, seizure, CVA, palpatations, mental health, musculoskeletal)? @ -[facility] Differential Abdominal Pain Women: Appendicitis, Cholecystitis, diverticulosis, ischemic bowel, pancreatitis, hepatitis, UTI, gastroenteritis, AAA, incarcerated hernia, bowel obstruction, constipation, inflammatory bowel, hepatitis, peptic ulcer disease, splenic infarction, perforated viscus, vulvitis, ovarian torsion, PID, kidney stone, placenta abruption... This is not meant to be an all-inclusive list EKG interpreted by me (3pts min.). @ -As above X-rays interpreted by me (1pt min.). @ -None done CT interpreted by me (1pt min.). @ -CT shows inflammatory changes involving the cecum with adjacent 2.3 cm organized fluid collection favored to represent an intramural wall abscess. Etiologies include infectious/inflammatory process. Reactive small bowel ileus. U/S interpreted by me (1pt. min.). @ -None done What testing was considered but not performed or refused? (CT, X-rays, U/S, labs)? Why? @ -None What meds were considered but not given or refused? Why? @ -None Did you discuss the management of the patient with other professionals (professionals i.e. , PA, YOUTH NUTRITIONAL MONITOR, lab, RT, psych nurse, social work professor, laboratory manager, teacher, hotel security officer, nurse case manager)? Give summary @ -Spoke with Dr. Alexander who accepts admission Was smoking cessation discussed for >3mins.? @ -No Was critical care preformed (if so, how long)? @ -No Were there social determinants of health that impacted care today? How? (Homelessness, low income, unemployed, alcoholism, drug addiction, transportation, low edu. Level, literacy, decrease access to med. care, shelter, rehab)? @ -No Was there de-escalation of care discussed even if they declined (Discuss DNR or withdrawal of care, Hospice)? DNR status @ -No What co-morbidities impacted this encounter? (DM, HTN, Smoking, COPD, CAD, Cancer, CVA, ARF, Chemo, Hep., AIDS, mental health diagnosis, sleep apnea, morbid obesity)? @ -None Was patient admitted / discharged? Hospital course, mention meds given and route, prescriptions, significant lab abnormalities, going to OR and other pertinent info. @ -53-year-old female presenting with chief complaint of abdominal pain. Was here recently for ileus and colitis. She mitts to nausea vomiting diarrhea. WBC 12.3. Urine shows small leukocytes. CT is positive for inflammatory changes by the cecum and organized fluid collection favoring intramural wall abscess. Patient is admitted and started on Zosyn. Placed NPO. She is agreeable with this plan. I discussed this case with my attending Dr. Hilario Undiagnosed new problem with uncertain prognosis? @ -No Drug Therapy requiring intensive monitoring for toxicity (Heparin, Nitro, Insulin, Cardizem)? @ -No Were any procedures done? @ -No Diagnosis/symptom? @ -Intramural wall abscess, colitis Acute, or Chronic, or Acute on Chronic? @ -Acute Uncomplicated (without systemic symptoms) or Complicated (systemic symptoms)? @ -Complicated Side effects of treatment? @ -No Exacerbation, Progression, or Severe Exacerbation? @ -No Poses a threat to life or bodily function? How? (Chest pain, [place], [place], pneumonia, PE, COPD, DKA, ARF, appy, cholecystitis, CVA, Diverticulitis, Homicidal, Suicidal, threat to staff... and all critical care pts) @ -Yes - Lab Data Result diagrams: 06/05/24 19:46 06/05/24 19:46 Lab Results 06/05/24 06/05/24 06/05/24 Range/Units 18:57 19:46 19:46 WBC 12.3 H (3.8-10.6) k/uL RBC 5.00 (3.80-5.40) m/uL Hgb 13.4 (11.4-16.0) gm/dL Hct 43.0 (34.0-46.0) % MCV 86.0 (80.0-100.0) fL MCH 26.8 (25.0-35.0) pg MCHC 31.2 (31.0-37.0) g/dL RDW 16.8 H (11.5-15.5) % Plt Count 580 H (150-450) k/uL MPV 7.7 Neutrophils % 70 % Lymphocytes % 22 % Monocytes % 4 % Eosinophils % 2 % Basophils % 1 % Neutrophils # 8.6 H (1.3-7.7) k/uL Lymphocytes # 2.7 (1.0-4.8) k/uL Monocytes # 0.5 (0-1.0) k/uL Eosinophils # 0.2 (0-0.7) k/uL Basophils # 0.1 (0-0.2) k/uL Hypochromasia Slight Anisocytosis Slight Sodium 140 (137-145) mmol/L Potassium 3.8 (3.5-5.1) mmol/L Chloride 108 H (98-107) mmol/L Carbon Dioxide 20 L (22-30) mmol/L Anion Gap 12 mmol/L BUN 6 L (7-17) mg/dL Creatinine 0.86 (0.52-1.04) mg/dL Est GFR (CKD-EPI)AfAm 89 (>60 ml/min/1.73 sqM) Est GFR (CKD-EPI)NonAf 77 (>60 ml/min/1.73 sqM) Glucose 119 H (74-99) mg/dL Plasma Lactic Acid Sarthak (0.7-2.0) mmol/L Calcium 9.7 (8.4-10.2) mg/dL Total Bilirubin 0.7 (0.2-1.3) mg/dL AST 24 (14-36) U/L ALT 10 (4-34) U/L Alkaline Phosphatase 107 (38-126) U/L Total Protein 6.7 (6.3-8.2) g/dL Albumin 4.0 (3.5-5.0) g/dL Amylase 39 (30-110) U/L Lipase 35 (23-300) U/L Urine Color Yellow Urine Appearance Clear (Clear) Urine pH 6.0 (5.0-8.0) Ur Specific [place] 1.020 (1.001-1.035) Urine Protein 1+ H (Negative) Urine Glucose (UA) Negative (Negative) Urine Ketones Negative (Negative) Urine Blood Negative (Negative) Urine Nitrite Negative (Negative) Urine Bilirubin Negative (Negative) Urine Urobilinogen <2.0 (<2.0) mg/dL Ur Leukocyte Esterase Small H (Negative) Urine RBC 1 (0-5) /hpf Urine WBC 4 (0-5) /hpf Ur Squamous Epith Cells 2 (0-4) /hpf Hyaline Casts 5 H (0-2) /lpf Urine Mucus Moderate H (None) /hpf 06/05/24 Range/Units 19:46 WBC (3.8-10.6) k/uL RBC (3.80-5.40) m/uL Hgb (11.4-16.0) gm/dL Hct (34.0-46.0) % MCV (80.0-100.0) fL MCH (25.0-35.0) pg MCHC (31.0-37.0) g/dL RDW (11.5-15.5) % Plt Count (150-450) k/uL MPV Neutrophils % % Lymphocytes % % Monocytes % % Eosinophils % % Basophils % % Neutrophils # (1.3-7.7) k/uL Lymphocytes # (1.0-4.8) k/uL Monocytes # (0-1.0) k/uL Eosinophils # (0-0.7) k/uL Basophils # (0-0.2) k/uL Hypochromasia Anisocytosis Sodium (137-145) mmol/L Potassium (3.5-5.1) mmol/L Chloride (98-107) mmol/L Carbon Dioxide (22-30) mmol/L Anion Gap mmol/L BUN (7-17) mg/dL Creatinine (0.52-1.04) mg/dL Est GFR (CKD-EPI)AfAm (>60 ml/min/1.73 sqM) Est GFR (CKD-EPI)NonAf (>60 ml/min/1.73 sqM) Glucose (74-99) mg/dL Plasma Lactic Acid Sarthak 1.3 (0.7-2.0) mmol/L Calcium (8.4-10.2) mg/dL Total Bilirubin (0.2-1.3) mg/dL AST (14-36) U/L ALT (4-34) U/L Alkaline Phosphatase (38-126) U/L Total Protein (6.3-8.2) g/dL Albumin (3.5-5.0) g/dL Amylase (30-110) U/L Lipase (23-300) U/L Urine Color Urine Appearance (Clear) Urine pH (5.0-8.0) Ur Specific [place] (1.001-1.035) Urine Protein (Negative) Urine Glucose (UA) (Negative) Urine Ketones (Negative) Urine Blood (Negative) Urine Nitrite (Negative) Urine Bilirubin (Negative) Urine Urobilinogen (<2.0) mg/dL Ur Leukocyte Esterase (Negative) Urine RBC (0-5) /hpf Urine WBC (0-5) /hpf Ur Squamous Epith Cells (0-4) /hpf Hyaline Casts (0-2) /lpf Urine Mucus (None) /hpf Disposition Clinical Impression: Colitis with abscess, Ileus Disposition: ADMITTED IP TO THIS HOSP Condition: Fair Time of Disposition: 23:04
[2024-06-05] MEDS: HYDROmorphone 1 MG/ML 1 ML SYRINGE IVP PRN (23:16)
[2024-06-05] MEDS: ONDANSETRON 4 MG/2 ML VIAL IVP PRN (23:25)
[2024-06-05] MEDS: SODIUM CHLORIDE 0.9% 1,000 ML IV SCH (23:25)
[2024-06-05] MEDS: PIPERACILLIN-TAZOBACTAM 3.375 GM in SODIUM CHLORIDE 0.9% 100 ML IVPB STA (23:47)
[2024-06-06] MEDS: KETOROLAC 15 MG/ML 1 ML VIAL IVP PRN (01:24)
[2024-06-06 05:53] LABS: Glucose,Whole Blood 97 mg/dL (70-110)
[2024-06-06] MEDS ORDERED: ALBUTEROL HFA INHALER INHALATION PRN (10:58)
[2024-06-06 11:25] LABS: Glucose,Whole Blood 102 mg/dL (70-110)
[2024-06-06] MEDS: oxyCODONE-APAP 5-325MG 1 EACH TAB PO PRN (13:27)
[2024-06-06] MEDS: ASPIRIN 81 MG PO SCH (13:28)
[2024-06-06] MEDS: amLODIPine 10 MG TAB PO SCH (13:28)
[2024-06-06] MEDS: ATORVASTATIN 80 MG TAB PO SCH (13:28)
--- NOTE | 2024-06-06 15:27 | P.HPIM ---
History of Present Illness H&P Date: 06/06/24 Patient is a 53-year-old female with diabetes, hypertension, COPD, CABG with multiple stents most recently in November 2018 maintained on aspirin and Plavix presents with complaints of worsening abdominal pain. She was discharged from the hospital 2 days ago on Ceftin and Flagyl for colitis. During that hospital course her CT abdomen/pelvis revealed right-sided colitis she was started on IV Flagyl and ciprofloxacin and her WBCs trended down (11.5 to 8.21 on discharge). She endorsed improved pain throughout her stay and on the day of discharge she was asking to go home after she successfully ate lunch. During her stay her C. difficile PCR was negative. Endorses one episode of bloody emesis yesterday, and approximately 6 other episodes of non-bloody emesis since discharge but has had no vomiting since admission last night. Endorses compliance with medications since discharge. States pain is 6/10 right now but was 100/10 just before coming to ED. Denies current chest pain, shortness of breath, nausea, vomiting, hematochezia. Endorses right lower quadrant pain. CT abdomen/pelvis revealed inflammatory changes involving the cecum with adjacent 2.3 cm intramural wall abscess and reactive small bowel ileus. WBCs 12.3, hemoglobin 13.4, platelets 580. Urinalysis unremarkable. Afebrile, tachycardic since improved, hypertensive with systolic [id number]. ED documentation reviewed. Review of systems: Pertinent positives and negatives as discussed in HPI, a complete review of systems was performed and all other systems are negative. Social history: Tobacco: Current everyday smoker 1/2 ppd Alcohol: Denies Recreational drugs: Marijuana Travel: Denies Occupation: Unemployed Physical examination: Vital signs reviewed General: No acute distress Derm: No unusual rashes/lesions, warm Head: Atraumatic normocephalic, symmetric ENT: Nose and ears atraumatic Mouth: No lip lesion, mucus membranes moist Cardiovascular: S1S2 present, regular rate and rhythm, no murmur/rub/gallops Lungs: CTA bilateral, no rhonchi, no rales, no accessory muscle use Abdominal: Soft, tenderness to palpation in right lower quadrant Ext: Muscle strength 5 out of 5 in all 4 extremities grossly, no gross muscle atrophy, no contractures, dorsalis pedis pulses palpable bilaterally, no edema Neuro: CN II-XI grossly intact, no gross focal neuro deficits Psych: Alert, oriented, appropriate affect and mood Assessment/Plan: #. Intramural wall abscess #. Colitis Continue Zosyn Surgery consulted #. Hypertension Continue Norvasc #. Hyperlipidemia Continue Lipitor DVT prophylaxis: Lovenox The patient is admitted with an anticipated less than 2 midnight stay for evaluation of abdominal pain CODE STATUS: No code Discussed with: Patient Anticipated discharge place: Home Dr. Lito MD I have performed a history and physical examination and medical decision making of this patient, discussed the same with the the resident, and agree with the assessment and plan as written. I performed brief physical exam. Past Medical History Past Medical History: Asthma, Coronary Artery Disease (CAD), COPD, Diabetes Mellitus, GERD/Reflux, Hypertension, Myocardial Infarction ([place]), Osteoarthritis (OA) Additional Past Medical History / Comment(s): DDD, scoliosis Last Myocardial Infarction Date:: 2011 History of Any Multi-Drug Resistant Organisms: None Reported Past Surgical History: Coronary Bypass/CABG, Heart Catheterization With Stent Additional Past Surgical History / Comment(s): seven stents Past Anesthesia/Blood Transfusion Reactions: No Reported Reaction Date of Last Stent Placement:: 11/2018 Past Psychological History: Anxiety, Bipolar Smoking Status: Current every day smoker Past Alcohol Use History: None Reported Additional Past Alcohol Use History / Comment(s): 1 ppd Past Drug Use History: Marijuana - Past Family History Mother Family Medical History: Cancer Additional Family Medical History / Comment(s): Ovarian cancer Father Family Medical History: Congestive Heart Failure (CHF) Fmily Family Medical History: No Reported History Medications and Allergies Home Medications Medication Instructions Recorded Confirmed Type Atorvastatin [Lipitor] 80 mg PO DAILY 07/08/20 06/06/24 History Ranolazine [Ranexa] 1,000 mg PO BID 11/13/21 06/06/24 History Albuterol Inhaler [Ventolin Hfa 2 puff INHALATION RT-QID PRN 03/27/23 06/06/24 History Inhaler] Aspirin EC [Ecotrin Low Dose] 81 mg PO DAILY 03/27/23 06/06/24 History Budesonide/Formoterol Fumarate 2 puff INHALATION RT-BID 03/27/23 06/06/24 History [Symbicort 160-4.5 Mcg Inhaler] Clopidogrel [Plavix] 75 mg PO DAILY 03/27/23 06/06/24 History Nitroglycerin Sl Tabs [Nitrostat] 0.4 mg SL Q5M PRN 03/27/23 06/06/24 History Omeprazole 40 mg PO BID 03/27/23 06/06/24 History Pregabalin [Lyrica] 150 mg PO TID 03/27/23 06/06/24 History amLODIPine [Norvasc] 10 mg PO DAILY 03/27/23 06/06/24 History metFORMIN HCL 1,000 mg PO BID 03/27/23 06/06/24 History rOPINIRole HCL [Requip] 1 mg PO HS 03/27/23 06/06/24 History ALPRAZolam [Xanax] 0.5 mg PO BID PRN 06/22/23 06/06/24 History Dapagliflozin Propanediol [Farxiga] 5 mg PO DAILY 03/16/24 06/06/24 History Dulaglutide [Trulicity] 3 mg SQ WE 03/16/24 06/06/24 History Insulin Lispro [humaLOG Kwikpen] See Protocol SQ AC-TID 03/16/24 06/06/24 History Ipratropium-Albuterol Nebulize 3 ml INHALATION RT-TID 03/16/24 06/06/24 History [Duoneb 0.5 mg-3 mg/3 ml Soln] Isosorbide Mononitrate ER [Imdur] 30 mg PO DAILY 03/16/24 06/06/24 History Mag Hydrox/Al Hydrox/Simeth 30 ml PO QID PRN 2 Days #180 ml 05/22/24 06/06/24 Rx [Maalox] Spiriva Respimat 1.25mcg/Actuation 2 puff INHALATION RT-DAILY 05/24/24 06/06/24 History Mist Metoprolol Tartrate [Lopressor] 25 mg PO BID #60 tab 05/29/24 06/06/24 Rx Albuterol Nebulized [Ventolin 2.5 mg INHALATION RT-Q6H PRN 05/31/24 06/06/24 History Nebulized] Ondansetron Odt [Zofran ODT] 4 mg PO Q8HR PRN 05/31/24 06/06/24 History lisinopriL [Zestril] 10 mg PO DAILY 05/31/24 06/06/24 History Cholestyramine (with Sugar) 4 gm PO BID #60 packet 06/03/24 06/06/24 Rx [Questran] HYDROcodone/APAP 5-325MG [[place] 1 tab PO BID PRN 3 Days #6 tab 06/03/24 06/06/24 Rx 5-325] cefUROXime axetiL [Ceftin] 500 mg PO BID 6 Days #12 tab 06/03/24 06/06/24 Rx metroNIDAZOLE [Flagyl] 500 mg PO TID 6 Days #18 tab 06/03/24 06/06/24 Rx Allergies Allergy/AdvReac Type Severity Reaction Status Date / Time No Known Allergies Allergy Verified 06/06/24 09:35 Physical Exam Vitals: Vital Signs Temp Pulse Pulse Resp BP BP Pulse Ox 06/06/24 01:08 98.3 F 89 18 153/92 96 06/06/24 00:15 85 16 101/67 96 06/05/24 21:25 99 16 161/88 98 06/05/24 18:14 116 H 20 156/88 98 Intake and Output 06/05/24 06/06/24 06/06/24 22:59 06:59 14:59 Other: # Voids 1 Weight 90.718 kg 90.718 kg Results CBC & Chem 7: 06/07/24 07:40 06/05/24 19:46 Labs: Abnormal Lab Results - Last 24 Hours (Table) 06/05/24 06/05/24 06/05/24 Range/Units 18:57 19:46 19:46 WBC 12.3 H (3.8-10.6) k/uL RDW 16.8 H (11.5-15.5) % Plt Count 580 H (150-450) k/uL Neutrophils # 8.6 H (1.3-7.7) k/uL Chloride 108 H (98-107) mmol/L Carbon Dioxide 20 L (22-30) mmol/L BUN 6 L (7-17) mg/dL Glucose 119 H (74-99) mg/dL Urine Protein 1+ H (Negative) Ur Leukocyte Esterase Small H (Negative) Hyaline Casts 5 H (0-2) /lpf Urine Mucus Moderate H (None) /hpf Thrombosis Risk Factor Assmnt - Choose All That Apply Each Factor Represents 1 point: Age 41-60 years Thrombosis Risk Factor Assessment Total Risk Factor Score: 1 Thrombosis Risk Factor Assessment Level: Low Risk
[2024-06-06] MEDS: PIPERACILLIN-TAZOBACTAM 3.375 GM in SODIUM CHLORIDE 0.9% 100 ML IVPB SCH (16:00)
[2024-06-06 16:36] LABS: Glucose,Whole Blood 80 mg/dL (70-110)
[2024-06-06] MEDS: IPRATROPIUM-ALBUTEROL 3 ML NEB INHALATION SCH (16:36)
[2024-06-06 20:36] LABS: Glucose,Whole Blood 78 mg/dL (70-110)
[2024-06-06] MEDS: SYMBICORT 160-4.5 MCG INHALER INHALATION SCH (21:18)
--- NOTE | 2024-06-06 23:58 | P.GSCN ---
History of Present Illness Consult date: 06/06/24 History of present illness: Patient is a 53-year-old female with diabetes, hypertension, COPD, CABG with multiple stents most recently in November 2018 maintained on aspirin and Plavix presents with complaints of worsening abdominal pain. She was discharged from the hospital 2 days ago on Ceftin and Flagyl for colitis. During that hospital course her CT abdomen/pelvis revealed right-sided colitis she was started on IV Flagyl and ciprofloxacin and her WBCs trended down (11.5 to 8.21 on discharge). She endorsed improved pain throughout her stay and on the day of discharge she was asking to go home after she successfully ate lunch. During her stay her C. difficile PCR was negative. Endorses one episode of bloody emesis yesterday, and approximately 6 other episodes of non-bloody emesis since discharge but has had no vomiting since admission last night. Endorses compliance with medications since discharge. States pain is 6/10 right now but was 100/10 just before coming to ED. Denies current chest pain, shortness of breath, nausea, vomiting, hematochezia. Endorses right lower quadrant pain. CT abdomen/pelvis revealed inflammatory changes involving the cecum with adjacent 2.3 cm intramural wall abscess and reactive small bowel ileus. WBCs 12.3, hemoglobin 13.4, platelets 580. Urinalysis unremarkable Review of Systems negative except above HPI Past Medical History Past Medical History: Asthma, Coronary Artery Disease (CAD), COPD, Diabetes Mellitus, GERD/Reflux, Hypertension, Myocardial Infarction ([place]), Osteoarthritis (OA) Additional Past Medical History / Comment(s): DDD, scoliosis Last Myocardial Infarction Date:: 2011 History of Any Multi-Drug Resistant Organisms: None Reported Past Surgical History: Coronary Bypass/CABG, Heart Catheterization With Stent Additional Past Surgical History / Comment(s): seven stents Past Anesthesia/Blood Transfusion Reactions: No Reported Reaction Date of Last Stent Placement:: 11/2018 Past Psychological History: Anxiety, Bipolar Smoking Status: Current every day smoker Past Alcohol Use History: None Reported Additional Past Alcohol Use History / Comment(s): 1 ppd Past Drug Use History: Marijuana - Past Family History Mother Family Medical History: Cancer Additional Family Medical History / Comment(s): Ovarian cancer Father Family Medical History: Congestive Heart Failure (CHF) Fmily Family Medical History: No Reported History Medications and Allergies Home Medications Medication Instructions Recorded Confirmed Type Atorvastatin [Lipitor] 80 mg PO DAILY 07/08/20 06/06/24 History Ranolazine [Ranexa] 1,000 mg PO BID 11/13/21 06/06/24 History Albuterol Inhaler [Ventolin Hfa 2 puff INHALATION RT-QID PRN 03/27/23 06/06/24 History Inhaler] Aspirin EC [Ecotrin Low Dose] 81 mg PO DAILY 03/27/23 06/06/24 History Budesonide/Formoterol Fumarate 2 puff INHALATION RT-BID 03/27/23 06/06/24 History [Symbicort 160-4.5 Mcg Inhaler] Clopidogrel [Plavix] 75 mg PO DAILY 03/27/23 06/06/24 History Nitroglycerin Sl Tabs [Nitrostat] 0.4 mg SL Q5M PRN 03/27/23 06/06/24 History Omeprazole 40 mg PO BID 03/27/23 06/06/24 History Pregabalin [Lyrica] 150 mg PO TID 03/27/23 06/06/24 History amLODIPine [Norvasc] 10 mg PO DAILY 03/27/23 06/06/24 History metFORMIN HCL 1,000 mg PO BID 03/27/23 06/06/24 History rOPINIRole HCL [Requip] 1 mg PO HS 03/27/23 06/06/24 History ALPRAZolam [Xanax] 0.5 mg PO BID PRN 06/22/23 06/06/24 History Dapagliflozin Propanediol [Farxiga] 5 mg PO DAILY 03/16/24 06/06/24 History Dulaglutide [Trulicity] 3 mg SQ WE 03/16/24 06/06/24 History Insulin Lispro [humaLOG Kwikpen] See Protocol SQ AC-TID 03/16/24 06/06/24 History Ipratropium-Albuterol Nebulize 3 ml INHALATION RT-TID 03/16/24 06/06/24 History [Duoneb 0.5 mg-3 mg/3 ml Soln] Isosorbide Mononitrate ER [Imdur] 30 mg PO DAILY 03/16/24 06/06/24 History Mag Hydrox/Al Hydrox/Simeth 30 ml PO QID PRN 2 Days #180 ml 05/22/24 06/06/24 Rx [Maalox] Spiriva Respimat 1.25mcg/Actuation 2 puff INHALATION RT-DAILY 05/24/24 06/06/24 History Mist Metoprolol Tartrate [Lopressor] 25 mg PO BID #60 tab 05/29/24 06/06/24 Rx Albuterol Nebulized [Ventolin 2.5 mg INHALATION RT-Q6H PRN 05/31/24 06/06/24 History Nebulized] Ondansetron Odt [Zofran ODT] 4 mg PO Q8HR PRN 05/31/24 06/06/24 History lisinopriL [Zestril] 10 mg PO DAILY 05/31/24 06/06/24 History Cholestyramine (with Sugar) 4 gm PO BID #60 packet 06/03/24 06/06/24 Rx [Questran] HYDROcodone/APAP 5-325MG [[place] 1 tab PO BID PRN 3 Days #6 tab 06/03/24 06/06/24 Rx 5-325] cefUROXime axetiL [Ceftin] 500 mg PO BID 6 Days #12 tab 06/03/24 06/06/24 Rx metroNIDAZOLE [Flagyl] 500 mg PO TID 6 Days #18 tab 06/03/24 06/06/24 Rx Allergies Allergy/AdvReac Type Severity Reaction Status Date / Time No Known Allergies Allergy Verified 06/06/24 09:35 Surgical - Exam Osteopathic Statement: *. No significant issues noted on an osteopathic structural exam other than those noted in the History and Physical/Consult. Vital Signs Pulse Resp BP Pulse Ox 116 H 20 156/88 98 06/05/24 18:14 06/05/24 18:14 06/05/24 18:14 06/05/24 18:14 gen: nad heent: atraumatic, normocephalic, eyes perrla, oral mucosa moist, no neck masses appreciated cv: rrr pul: non labored breathing abd: soft, mild distention,tender to palpation in right lower quadrant, not peritoneal Results - Labs 06/05/24 19:46 06/05/24 19:46 Assessment and Plan Assessment: 53 yo female w/ abdominal pain 2/[address] finidngs suggestive of inflammatory colitis discussed w/ IR, radioligst not confident if ammendable to drainage -iv abx and pain meds for now -discussed w/ patient regardign possible surgery -will reevaluate in am Time with Patient: Greater than 30
[2024-06-07 02:29] LABS: Glucose,Whole Blood 88 mg/dL (70-110)
[2024-06-07 06:10] LABS: Glucose,Whole Blood 85 mg/dL (70-110)
[2024-06-07 10:21] LABS: Basophils # (A) 0.04 X 10*3/uL (0.00-0.10); Basophils % (A) 0.5 %; Eosinophils # (A) 0.17 X 10*3/uL (0.04-0.35); Eosinophils % (A) 2.2 %; HCT 33.4 % (37.2-46.3); HGB 10.6 g/dL (12.0-15.0); Lymphocytes # (A) 2.25 X 10*3/uL (0.90-5.00); Lymphocytes % (A) 29.5 %; MCH 27.6 pg (27.0-32.0); MCHC 31.7 g/dL (32.0-37.0); Mean Platelet Volume 10.3 FL (9.5-12.2); Monocytes # (A) 0.56 X 10*3/uL (0.20-1.00); Monocytes % (A) 7.3 %; NRBC Per 100 WBC 0 X 10*3/uL (0.00-0.01); Neutrophils # (A) 4.52 X 10*3/uL (1.80-7.70); Neutrophils % (A) 59.5 %; Platelet Count 391 X 10*3/uL (140-440); RBC 3.84 X 10*6/uL (4.10-5.20); RDW 17.1 % (11.5-14.5); WBC 7.62 X 10*3/uL (4.50-10.00)
--- NOTE | 2024-06-07 11:44 | P.PN ---
Subjective Progress Note Date: 06/07/24 Patient is a 53-year-old female with diabetes, hypertension, COPD, CABG with multiple stents most recently in November 2018 maintained on aspirin and Plavix presents with complaints of worsening abdominal pain. She was discharged from the hospital 2 days ago on Ceftin and Flagyl for colitis. During that hospital course her CT abdomen/pelvis revealed right-sided colitis she was started on IV Flagyl and ciprofloxacin and her WBCs trended down (11.5 to 8.21 on discharge). She endorsed improved pain throughout her stay and on the day of discharge she was asking to go home after she successfully ate lunch. During her stay her C. difficile PCR was negative. Endorses one episode of bloody emesis yesterday, and approximately 6 other episodes of non-bloody emesis since discharge but has had no vomiting since admission last night. Endorses compliance with medications since discharge. States pain is 6/10 right now but was 100/10 just before coming to ED. Denies current chest pain, shortness of breath, nausea, vomiting, hematochezia. Endorses right lower quadrant pain. CT abdomen/pelvis revealed inflammatory changes involving the cecum with adjacent 2.3 cm intramural wall abscess and reactive small bowel ileus. WBCs 12.3, hemoglobin 13.4, platelets 580. Urinalysis unremarkable. Afebrile, tachycardic since improved, hypertensive with systolic [id number]. 06/07. Patient seen and examined at bedside. She states that the pain is improved. Surgery consultedno intervention at this time. Endorses mild diarrhea starting. WBC 7.62. ROS reviewed. Pertinent positives and negatives discussed above, a complete review of systems was performed and all the other systems were negative. Vital signs are stable. General: No acute distress. HEENT: Head exam is unremarkable. Lungs: Bilateral breath sounds present; no rhonchi, wheezes, or rales. Heart: Rate and rhythm are regular. Abdomen: Nontender. Extremities: No edema present. Assessment/Plan: Intramural wall abscess Right sided colitis Surgery consultedno intervention at this time Continue IV Zosyn NPO Zofran as needed for nausea Pain management Diabetes mellitus type 2 Insulin sliding scale Hypertension Continue Norvasc Hyperlipidemia Continue Lipitor COPD Continue Ventolin as needed Continue Symbicort Continue DuoNeb History of CABG and stents Continue aspirin Anxiety Continue Xanax as needed Dr. Lito MD I have performed a history and physical examination and medical decision making of this patient, discussed the same with the the resident, and agree with the assessment and plan as written. I performed brief physical exam. Objective - Vital Signs Vital signs: Vital Signs Temp 98.3 F 06/07/24 02:08 Pulse 71 06/07/24 02:08 Resp 16 06/07/24 02:08 BP 143/63 06/07/24 02:08 Pulse Ox 96 06/07/24 02:08 FiO2 Intake & Output 06/06/24 06/07/24 06/07/24 18:59 06:59 18:59 Other: # Voids 1 2 - Labs CBC & Chem 7: 06/07/24 07:40 06/05/24 19:46
[2024-06-07 11:46] LABS: ALT 8 U/L (8-44); AST 19 U/L (13-35); Albumin 3.3 g/dL (3.8-4.9); Albumin/Globulin Ratio 1.65 Ratio (1.60-3.17); Alkaline Phosphatase 85 U/L (41-126); BUN/Creat Ratio 7.75 Ratio (12.00-20.00); Blood Urea Nitrogen 6.2 mg/dL (9.0-27.0); Calcium 8.7 mg/dL (8.7-10.3); Carbon Dioxide 18.5 mmol/L (21.6-31.8); Chloride 111 mmol/L (96-109); Glucose 85 mg/dL (70-110); Sodium 142 mmol/L (135-145); Total Bilirubin 0.3 mg/dL (0.3-1.2); Total Protein 5.3 g/dL (6.2-8.2)
[2024-06-07 11:50] LABS: Glucose,Whole Blood 100 mg/dL (70-110)
--- NOTE | 2024-06-07 16:15 | P.PN ---
Subjective patient seen and evaluated bedside. Patient abdominal pain has improved significantly. Denies nausea or vomiting. Objective - Vital Signs Vital signs: Vital Signs Temp 98.3 F 06/07/24 13:51 Pulse 71 06/07/24 13:51 Resp 17 06/07/24 13:51 BP 115/72 06/07/24 13:51 Pulse Ox 96 06/07/24 13:51 FiO2 Intake & Output 06/06/24 06/07/24 06/07/24 18:59 06:59 18:59 Other: # Voids 1 2 2 # Bowel Movements 1 - Exam gen: nad cv: rrr pul: non labored breathing abd: soft, tender to palpation, no guarding or rebound tenderness, not a surgical abdomen - Labs CBC & Chem 7: 06/07/24 07:40 06/07/24 07:40 Labs: Abnormal Lab Results - Last 24 Hours (Table) 06/07/24 06/07/24 Range/Units 07:40 07:40 RBC 3.84 L (4.10-5.20) X 10*6/uL Hgb 10.6 L (12.0-15.0) g/dL Hct 33.4 L (37.2-46.3) % MCHC 31.7 L (32.0-37.0) g/dL RDW 17.1 H (11.5-14.5) % Immature Gran # 0.08 H (0.00-0.04) X 10*3/uL Chloride 111 H (96-109) mmol/L Carbon Dioxide 18.5 L (21.6-31.8) mmol/L Anion Gap 12.50 H (4.00-12.00) mmol/L BUN 6.2 L (9.0-27.0) mg/dL BUN/Creatinine Ratio 7.75 L (12.00-20.00) Ratio Total Protein 5.3 L (6.2-8.2) g/dL Albumin 3.3 L (3.8-4.9) g/dL Assessment and Plan Assessment: 53-year-old female with right-sided diverticular abscess White count normal Abdominal pain has significantly improved Less likely will need surgical intervention, will need a colonoscopy in 6 weeks Time with Patient: Less than 30
[2024-06-07 17:05] LABS: Glucose,Whole Blood 107 mg/dL (70-110)
[2024-06-08] MEDS: ALPRAZolam 0.5 MG TAB PO PRN (00:15)
[2024-06-08 09:07] LABS: Anisocytosis Slight; Basophils # (A) 0.1 k/uL (0-0.2); Basophils % (A) 1 %; Eosinophils # (A) 0.1 k/uL (0-0.7); Eosinophils % (A) 2 %; HCT 36.7 % (34.0-46.0); HGB 11.9 gm/dL (11.4-16.0); Hypochromasia Slight; Lymphocytes # (A) 2.1 k/uL (1.0-4.8); Lymphocytes % (A) 29 %; MCH 28.1 pg (25.0-35.0); MCHC 32.4 g/dL (31.0-37.0); MCV 86.8 fL (80.0-100.0); Mean Platelet Volume 8.6; Monocytes # (A) 0.6 k/uL (0-1.0); Monocytes % (A) 8 %; Neutrophils % (A) 56 %; Platelet Count 374 k/uL (150-450); RBC 4.23 m/uL (3.80-5.40); RDW 16.6 % (11.5-15.5); WBC 7.1 k/uL (3.8-10.6)
[2024-06-08 09:10] LABS: ALT 8 U/L (4-34); AST 19 U/L (14-36); African American GFR (CKD) >90 (>60 ml/min/1.73 sqM); Albumin/Globulin Ratio 1.3; Alkaline Phosphatase 70 U/L (38-126); Anion Gap 8 mmol/L; Blood Urea Nitrogen 3 mg/dL (7-17); Calcium 8.5 mg/dL (8.4-10.2); Carbon Dioxide 21 mmol/L (22-30); Chloride 111 mmol/L (98-107); Globulin 2.3 g/dL; Glucose 86 mg/dL (74-99); Non-African American GFR(CKD) >90 (>60 ml/min/1.73 sqM); Potassium 3.8 mmol/L (3.5-5.1); Sodium 140 mmol/L (137-145); Total Bilirubin 0.4 mg/dL (0.2-1.3); Total Protein 5.3 g/dL (6.3-8.2)
[2024-06-08] MEDS: DAPAGLIFLOZIN PROPANEDIOL 5 MG TABLET PO SCH (10:31)
--- NOTE | 2024-06-08 11:13 | P.PN ---
Subjective Progress Note Date: 06/08/24 Patient is a 53-year-old female with diabetes, hypertension, COPD, CABG with multiple stents most recently in November 2018 maintained on aspirin and Plavix presents with complaints of worsening abdominal pain. She was discharged from the hospital 2 days ago on Ceftin and Flagyl for colitis. During that hospital course her CT abdomen/pelvis revealed right-sided colitis she was started on IV Flagyl and ciprofloxacin and her WBCs trended down (11.5 to 8.21 on discharge). She endorsed improved pain throughout her stay and on the day of discharge she was asking to go home after she successfully ate lunch. During her stay her C. difficile PCR was negative. Endorses one episode of bloody emesis yesterday, and approximately 6 other episodes of non-bloody emesis since discharge but has had no vomiting since admission last night. Endorses compliance with medications since discharge. States pain is 6/10 right now but was 100/10 just before coming to ED. Denies current chest pain, shortness of breath, nausea, vomiting, hematochezia. Endorses right lower quadrant pain. CT abdomen/pelvis revealed inflammatory changes involving the cecum with adjacent 2.3 cm intramural wall abscess and reactive small bowel ileus. WBCs 12.3, hemoglobin 13.4, platelets 580. Urinalysis unremarkable. Afebrile, tachycardic since improved, hypertensive with systolic [id number]. 06/07. Patient seen and examined at bedside. She states that the pain is improved. Surgery consultedno intervention at this time. Endorses mild diarrhea starting. WBC 7.62. 06/08. Patient seen and examined lying comfortably on bed. She states the pain is significantly improved. Lab results pending. ROS reviewed. Pertinent positives and negatives discussed above, a complete review of systems was performed and all the other systems were negative. Vital signs are stable. General: No acute distress. HEENT: Head exam is unremarkable. Lungs: Bilateral breath sounds present; no rhonchi, wheezes, or rales. Heart: Rate and rhythm are regular. Abdomen: RLQ tenderness, mild epigastric tenderness. Extremities: No edema present. Assessment/Plan: Intramural wall abscess Right sided colitis Surgery consultedno intervention at this time; awaiting further recommendations Continue IV Zosyn Clear liquid diet as per surgery Zofran as needed for nausea Pain management Diabetes mellitus type 2 Insulin sliding scale Hypertension Continue Norvasc Hyperlipidemia Continue Lipitor COPD Continue Ventolin as needed Continue Symbicort Continue DuoNeb History of CABG and stents Continue aspirin Anxiety Continue Xanax as needed Dr. Lito MD I have performed a history and physical examination and medical decision making of this patient, discussed the same with the the resident, and agree with the assessment and plan as written. I performed brief physical exam. Objective - Vital Signs Vital signs: Vital Signs Temp 98.4 F 06/08/24 01:04 Pulse 70 06/08/24 01:04 Resp 16 06/08/24 01:04 BP 146/82 06/08/24 01:04 Pulse Ox 94 L 06/08/24 01:04 FiO2 Intake & Output 06/07/24 06/08/24 06/08/24 18:59 06:59 18:59 Other: # Voids 3 2 # Bowel Movements 1 - Labs CBC & Chem 7: 06/09/24 08:37 06/09/24 07:53 Labs: Abnormal Lab Results - Last 24 Hours (Table) 06/07/24 06/07/24 Range/Units 07:40 07:40 RBC 3.84 L (4.10-5.20) X 10*6/uL Hgb 10.6 L (12.0-15.0) g/dL Hct 33.4 L (37.2-46.3) % MCHC 31.7 L (32.0-37.0) g/dL RDW 17.1 H (11.5-14.5) % Immature Gran # 0.08 H (0.00-0.04) X 10*3/uL Chloride 111 H (96-109) mmol/L Carbon Dioxide 18.5 L (21.6-31.8) mmol/L Anion Gap 12.50 H (4.00-12.00) mmol/L BUN 6.2 L (9.0-27.0) mg/dL BUN/Creatinine Ratio 7.75 L (12.00-20.00) Ratio Total Protein 5.3 L (6.2-8.2) g/dL Albumin 3.3 L (3.8-4.9) g/dL Microbiology - Last 24 Hours (Table) 06/06/24 15:13 Blood Culture - Preliminary Blood
[2024-06-08] MEDS: ISOSORBIDE MONONITRATE ER 30 MG TAB.ER.24H PO SCH (11:33)
[2024-06-08] MEDS: PREGABALIN 75 MG CAP PO SCH (11:33)
[2024-06-08] MEDS: PANTOPRAZOLE 40 MG TABLET PO SCH (11:33)
[2024-06-08] MEDS ORDERED: DEXTROSE 50% SYRINGE 50 ML IVP PRN ×2 (11:38)
[2024-06-08 12:04] LABS: Glucose,Whole Blood 95 mg/dL (70-110)
[2024-06-08] MEDS: INSULIN ASPART (NovoLOG) 100 UNIT/ML VIAL SQ SCH (12:08)
[2024-06-08 16:37] LABS: Glucose,Whole Blood 91 mg/dL (70-110)
--- NOTE | 2024-06-08 18:12 | P.PN ---
Progress Note - Text Progress Note Date: 06/08/24 ALIVIA. Patient still having a significant amount of pain. Having some nausea. Denies fever. WBC remains stable. VSS General-NAD Abdomen-soft, mildly distended, TTP R side of abdomen and epigastric region 53-year-old female with right-sided diverticular abscess Continue CLD Zosyn Pain and Nausea Control -Patient will need colonoscopy 4-6 weeks after discharge Freeman Portillo [facility] [phone]
[2024-06-08 21:09] LABS: Glucose,Whole Blood 101 mg/dL (70-110)
[2024-06-08] MEDS: lisinopriL 10 MG TAB PO SCH (22:18)
[2024-06-08] MEDS: METOPROLOL TARTRATE 25 MG TAB PO SCH (22:18)
[2024-06-09 05:58] LABS: Glucose,Whole Blood 124 mg/dL (70-110)
[2024-06-09 08:31] LABS: African American GFR (CKD) >90 (>60 ml/min/1.73 sqM); Anion Gap 8 mmol/L; Blood Urea Nitrogen 4 mg/dL (7-17); Calcium 9.2 mg/dL (8.4-10.2); Carbon Dioxide 22 mmol/L (22-30); Chloride 112 mmol/L (98-107); Glucose 97 mg/dL (74-99); Non-African American GFR(CKD) >90 (>60 ml/min/1.73 sqM); Sodium 142 mmol/L (137-145)
[2024-06-09 08:51] LABS: Potassium 5.3 mmol/L (3.5-5.1)
[2024-06-09 09:06] LABS: Anisocytosis Slight; Basophils % (A) 1 %; Eosinophils # (A) 0.1 k/uL (0-0.7); Eosinophils % (A) 2 %; HCT 38.5 % (34.0-46.0); HGB 11.8 gm/dL (11.4-16.0); Hypochromasia Marked; Lymphocytes # (A) 2.1 k/uL (1.0-4.8); Lymphocytes % (A) 34 %; MCH 27.5 pg (25.0-35.0); MCHC 30.7 g/dL (31.0-37.0); MCV 89.7 fL (80.0-100.0); Mean Platelet Volume 7.4; Monocytes # (A) 0.3 k/uL (0-1.0); Monocytes % (A) 4 %; Neutrophils # (A) 3.5 k/uL (1.3-7.7); Neutrophils % (A) 56 %; Platelet Count 452 k/uL (150-450); RBC 4.29 m/uL (3.80-5.40); RDW 16.7 % (11.5-15.5); WBC 6.2 k/uL (3.8-10.6)
--- NOTE | 2024-06-09 09:25 | P.PN ---
Progress Note - Text Progress Note Date: 06/09/24 HARIKAO. Patient still having a significant amount of pain. Having some nausea. Denies fever. WBC remains stable. VSS General-NAD Abdomen-soft, mildly distended, TTP R side of abdomen and epigastric region 53-year-old female with right-sided diverticular abscess Continue CLD -Will repeat CT-AP Zosyn Pain and Nausea Control -Patient will need colonoscopy 4-6 weeks after discharge Freeman Portillo DO [facility] [phone]
--- NOTE | 2024-06-09 10:04 | CT ---
EXAMINATION TYPE: CT abdomen pelvis w con DATE OF EXAM: 06/09/2024 COMPARISON: 06/05/2024 HISTORY: 53-year-old female with worsening ABD PAIN TECHNIQUE: Contiguous axial scanning of the abdomen and pelvis following administration of 80 ml Omni paque 300 IV contrast. Delayed images through the kidneys and coronal/sagittal reconstructions perfo rmed. CT DLP: 1147.6 mGycm Automated exposure control for dose reduction was used. FINDINGS: Heart normal size without pericardial effusion. Strandy atelectasis lung bases without pleural effusi on. No focal liver lesion or biliary ductal dilatation. Gallbladder hydropic to 4.5 cm wide but without a ny surrounding inflammation. Probably due to fasting state. New prominent fluid within the stomach and numerous fluid-filled small bowel loops throughout the abd omen. Dilatation up to 5.9 cm, upper limits of normal. No discrete transition point is seen. There is redemonstration of abnormally thickened wall of the colon adjacent to the ileocecal valve. A n adjacent tiny 1.8 cm locular fluid along the superior margin, coronal image 36 is smaller compared to 2.5 cm, previously. Ongoing localized pericolonic fat stranding. A normal appendix is visualized on coronal image 48. Adrenal glands, kidneys, spleen, and atrophic pancreas and no gross abnormality. Moderate scattered plaquing calcification abdominal aorta. No mesenteric or retroperitoneal lymphaden opathy. Trace pelvic free fluid increased in the interval. Sigmoid diverticulosis without evidence for acute diverticulitis. Bladder partially distended. Although phleboliths. Uterus is anteverted. Both ovaries are visualized. Bones: Moderate to severe degenerative disc disease L2-L3 and L3-L4. Hypertrophic facet arthropathy l ower lumbar spine. IMPRESSION: 1. SIMILAR FINDINGS WITH ABNORMALLY THICKENED WALL OF THE COLON ADJACENT TO THE ILEOCECAL VALVE REGIO N. SIMILAR SURROUNDING MILD INFLAMMATORY FAT STRANDING. CONSIDER A LOCALIZED COLITIS. THE SUSPECTED I NTRAMURAL ABSCESS HERE IS SMALLER 1.8 CM NOW VERSUS 2.5 CM, PREVIOUSLY. GIVEN THE PERSISTENCE OF WALL THICKENING AND INFLAMMATION, ONGOING FOLLOW-UP IS ADVISED. COLONOSCOPY CAN BE PERFORMED ONCE THE INF LAMMATION RESOLVES. 2. NORMAL APPENDIX. 3. NEW PROMINENT FLUID WITHIN THE STOMACH. FLUID-FILLED SMALL BOWEL LOOPS ARE MORE NUMEROUS NOW. Cons ider worsening secondary ileus. 4. Trace pelvic free fluid redemonstrated. No free air. [facility], , 06/09/2024 10:01 AM
[2024-06-09] MEDS: SODIUM ZIRCONIUM CYCLOSILICATE 10 GM PACKET PO ONE (10:48)
[2024-06-09 11:38] LABS: Glucose,Whole Blood 98 mg/dL (70-110)
[2024-06-09] MEDS ORDERED: HYDROmorphone 1 MG/ML 1 ML SYRINGE IVP PRN (12:41)
[2024-06-09] MEDS ORDERED: ACETAMINOPHEN IV (For NPO) 1,000 MG in EMPTY BAG 1 BAG IVPB PRN (12:42)
[2024-06-09] MEDS: HYDROmorphone 0.5 MG/0.5 ML SYRINGE IVP PRN (14:41)
[2024-06-09 16:55] LABS: Glucose,Whole Blood 71 mg/dL (70-110)
[2024-06-09 20:26] LABS: Glucose,Whole Blood 77 mg/dL (70-110)
--- NOTE | 2024-06-09 22:01 | P.PN ---
Subjective Progress Note Date: 06/09/24 Patient is a 53-year-old female with diabetes, hypertension, COPD, CABG with multiple stents most recently in November 2018 maintained on aspirin and Plavix presents with complaints of worsening abdominal pain. She was discharged from the hospital 2 days ago on Ceftin and Flagyl for colitis. During that hospital course her CT abdomen/pelvis revealed right-sided colitis she was started on IV Flagyl and ciprofloxacin and her WBCs trended down (11.5 to 8.21 on discharge). She endorsed improved pain throughout her stay and on the day of discharge she was asking to go home after she successfully ate lunch. During her stay her C. difficile PCR was negative. Endorses one episode of bloody emesis yesterday, and approximately 6 other episodes of non-bloody emesis since discharge but has had no vomiting since admission last night. Endorses compliance with medications since discharge. States pain is 6/10 right now but was 100/10 just before coming to ED. Denies current chest pain, shortness of breath, nausea, vomiting, hematochezia. Endorses right lower quadrant pain. CT abdomen/pelvis revealed inflammatory changes involving the cecum with adjacent 2.3 cm intramural wall abscess and reactive small bowel ileus. WBCs 12.3, hemoglobin 13.4, platelets 580. Urinalysis unremarkable. Afebrile, tachycardic since improved, hypertensive with systolic [id number]. 06/07. Patient seen and examined at bedside. She states that the pain is improved. Surgery consultedno intervention at this time. Endorses mild diarrhea starting. WBC 7.62. 06/08. Patient seen and examined lying comfortably on bed. She states the pain is significantly improved. Lab results pending. 06/09/2024 Patient is evaluated in follow up today. She is resting in bed she is holding her abdomen and reporting pain to the RLQ. She is requesting IV pain medication. Noted that follow up abdominal pelvis CT done today reveals similar findings with abnormally thickened wall of the colon adjacent to the ileocecal valve region. Similar surrounding mild inflammatory fat stranding consider focal colitis. Suspected intramural abscess here is smaller at 1.8 cm vs. 2.5 cm previously. Normal appendix. New prominent fluid within the stomach. Fluid- filled small bowel loops are more numerous now. Consider worsening ileus. Trace pelvic free fluid redemonstrated. No free air. Potassium 5.3. today. Review of Systems Constitutional: Denied any fatigue denied any fever. Cardio vascular: denied any chest pain, palpitations Gastrointestinal: denied any nausea, vomiting, diarrhea. Reports abdominal pain. Pulmonary: Denied any shortness of breath cough Neurologic denied any new focal deficits All inpatient medications were reviewed and appropriate changes in these medications as dictated in the interval history and assessment and plan. PHYSICAL EXAMINATION: GENERAL: The patient is alert and oriented x3, not in any acute distress. Well developed, well nourished. HEENT: Pupils are round and equally reacting to light. EOMI. No scleral icterus. No conjunctival pallor. Normocephalic, atraumatic. No pharyngeal erythema. No thyromegaly. CARDIOVASCULAR: S1 and S2 present. No murmurs, rubs, or gallops. PULMONARY: Chest is clear to auscultation, no wheezing or crackles. ABDOMEN: Soft, nontender, nondistended, normoactive bowel sounds. No palpable organomegaly. MUSCULOSKELETAL: No joint swelling or deformity. EXTREMITIES: No cyanosis, clubbing, or pedal edema. NEUROLOGICAL: Gross neurological examination did not reveal any focal deficits. SKIN: No rashes. Assessment/Plan: Intramural wall abscess Right sided colitis Surgery consultedno intervention at this time; awaiting further recommendations Continue IV Zosyn Zofran as needed for nausea Pain management -Suspected worsening ileus Make patient NPO Cut back on narcotics IV tylenol and toradol for pain Diabetes mellitus type 2 Insulin sliding scale Hypertension Continue Norvasc Hyperlipidemia Continue Lipitor COPD Continue Ventolin as needed Continue Symbicort Continue DuoNeb History of CABG and stents Continue aspirin Anxiety Continue Xanax as needed The impression and plan of care has been dictated by Violetta Maya, Nurse Practitioner as directed. Dr. Lito MD I have performed a history and physical examination and medical decision making of this patient, discussed the same with the dictator, and agree with the dictators assessment and plan as written, documented as a scribe. Based on total visit time, I have performed more than 50% of this visit. Objective - Vital Signs Vital signs: Vital Signs Temp 97.5 F L 06/09/24 14:00 Pulse 80 06/09/24 20:34 Resp 18 06/09/24 14:00 BP 90/56 06/09/24 14:00 Pulse Ox 90 L 06/09/24 14:00 FiO2 Intake & Output 06/09/24 06/09/24 06/10/24 06:59 18:59 06:59 Other: # Voids 2 0 - Labs CBC & Chem 7: 06/09/24 08:37 06/09/24 07:53 Labs: Abnormal Lab Results - Last 24 Hours (Table) 06/09/24 06/09/24 06/09/24 Range/Units 05:57 07:53 08:37 MCHC 30.7 L (31.0-37.0) g/dL RDW 16.7 H (11.5-15.5) % Plt Count 452 H (150-450) k/uL Potassium 5.3 H (3.5-5.1) mmol/L Chloride 112 H (98-107) mmol/L BUN 4 L (7-17) mg/dL POC Glucose (mg/dL) 124 H (70-110) mg/dL Microbiology - Last 24 Hours (Table) 06/06/24 15:13 Blood Culture - Preliminary Blood Assessment and Plan Time with Patient: Less than 30
[2024-06-10] MEDS: KETOROLAC 15 MG/ML 1 ML VIAL IVP PRN (00:56)
[2024-06-10 02:13] LABS: Glucose,Whole Blood 81 mg/dL (70-110)
[2024-06-10 06:14] LABS: Glucose,Whole Blood 73 mg/dL (70-110)
--- NOTE | 2024-06-10 07:53 | P.PN ---
Progress Note - Text Progress Note Date: 06/10/24 MYLESEO. Patient still having a significant amount of pain on right side of abdomen and epigastric area. Having some nausea. Denies fever. CT-AP performed 06/09 still shows inflammatory changes on right side of colon however intramural abscess does appear smaller. VSS General-NAD Abdomen-soft, mildly distended, TTP R side of abdomen and epigastric region 53-year-old female with right-sided diverticular abscess Maintain NPO Zosyn Pain and Nausea Control -Patient will need colonoscopy 4-6 weeks after discharge Freeman Portillo DO [facility] [phone]
[2024-06-10 08:42] LABS: Basophils # (A) 0.04 X 10*3/uL (0.00-0.10); Basophils % (A) 0.7 %; Eosinophils # (A) 0.18 X 10*3/uL (0.04-0.35); Eosinophils % (A) 3.1 %; HCT 33.2 % (37.2-46.3); HGB 10.3 g/dL (12.0-15.0); Lymphocytes # (A) 2.08 X 10*3/uL (0.90-5.00); Lymphocytes % (A) 35.5 %; MCH 27.3 pg (27.0-32.0); MCV 88.1 FL (80.0-97.0); Mean Platelet Volume 10.6 FL (9.5-12.2); Monocytes # (A) 0.48 X 10*3/uL (0.20-1.00); Monocytes % (A) 8.2 %; NRBC Per 100 WBC 0 X 10*3/uL (0.00-0.01); Neutrophils # (A) 3.04 X 10*3/uL (1.80-7.70); Neutrophils % (A) 51.8 %; Platelet Count 372 X 10*3/uL (140-440); RBC 3.77 X 10*6/uL (4.10-5.20); RDW 17.1 % (11.5-14.5); WBC 5.86 X 10*3/uL (4.50-10.00)
[2024-06-10 08:58] LABS: BUN/Creat Ratio 5.12 Ratio (12.00-20.00); Blood Urea Nitrogen 4.1 mg/dL (9.0-27.0); Calcium 8.7 mg/dL (8.7-10.3); Carbon Dioxide 22.9 mmol/L (21.6-31.8); Chloride 113 mmol/L (96-109); Glucose 75 mg/dL (70-110); Potassium 3.8 mmol/L (3.5-5.5); Sodium 145 mmol/L (135-145)
[2024-06-10 10:25] LABS: Glucose,Whole Blood 82 mg/dL (70-110)
--- NOTE | 2024-06-10 13:04 | P.PN ---
Subjective Progress Note Date: 06/10/24 Patient is a 53-year-old female with diabetes, hypertension, COPD, CABG with multiple stents most recently in November 2018 maintained on aspirin and Plavix presents with complaints of worsening abdominal pain. She was discharged from the hospital 2 days ago on Ceftin and Flagyl for colitis. During that hospital course her CT abdomen/pelvis revealed right-sided colitis she was started on IV Flagyl and ciprofloxacin and her WBCs trended down (11.5 to 8.21 on discharge). She endorsed improved pain throughout her stay and on the day of discharge she was asking to go home after she successfully ate lunch. During her stay her C. difficile PCR was negative. Endorses one episode of bloody emesis yesterday, and approximately 6 other episodes of non-bloody emesis since discharge but has had no vomiting since admission last night. Endorses compliance with medications since discharge. States pain is 6/10 right now but was 100/10 just before coming to ED. Denies current chest pain, shortness of breath, nausea, vomiting, hematochezia. Endorses right lower quadrant pain. CT abdomen/pelvis revealed inflammatory changes involving the cecum with adjacent 2.3 cm intramural wall abscess and reactive small bowel ileus. WBCs 12.3, hemoglobin 13.4, platelets 580. Urinalysis unremarkable. Afebrile, tachycardic since improved, hypertensive with systolic [id number]. 06/07. Patient seen and examined at bedside. She states that the pain is improved. Surgery consultedno intervention at this time. Endorses mild diarrhea starting. WBC 7.62. 06/08. Patient seen and examined lying comfortably on bed. She states the pain is significantly improved. Lab results pending. 06/09. Patient is evaluated in follow up today. She is resting in bed she is holding her abdomen and reporting pain to the RLQ. She is requesting IV pain medication. Noted that follow up abdominal pelvis CT done today reveals similar findings with abnormally thickened wall of the colon adjacent to the ileocecal valve region. Similar surrounding mild inflammatory fat stranding consider focal colitis. Suspected intramural abscess here is smaller at 1.8 cm vs. 2.5 cm previously. Normal appendix. New prominent fluid within the stomach. Fluid- filled small bowel loops are more numerous now. Consider worsening ileus. Trace pelvic free fluid redemonstrated. No free air. Potassium 5.3. today. 06/10. Patient seen and examined at bedside. Patient still with significant amount of pain on the right side of the abdomen as well as epigastric area. She is NPO. She endorses nausea. She denies fever, chest pain, shortness of breath. Infectious disease consulted. Labs unremarkable. ROS reviewed. Pertinent positives and negatives discussed above, a complete review of systems was performed and all the other systems were negative. Vital signs are stable. General: No acute distress. HEENT: Head exam is unremarkable. Lungs: Bilateral breath sounds present; no rhonchi, wheezes, or rales. Heart: Rate and rhythm are regular. Abdomen: RLQ tenderness, mild epigastric tenderness. Extremities: No edema present. Assessment/Plan: Intramural wall abscess Right sided colitis Surgery consultedno intervention at this time; awaiting further recommendations Continue IV Zosyn NPO as per surgery Zofran as needed for nausea Pain management Infectious disease consulted Diabetes mellitus type 2 Insulin sliding scale Hypertension Continue Norvasc Hyperlipidemia Continue Lipitor COPD Continue Ventolin as needed Continue Symbicort Continue DuoNeb History of CABG and stents Continue aspirin Anxiety Continue Xanax as needed Attestation I have seen and examined this patient with my resident , discussed the same with the resident/OLIVIA, and agree with the dictator's assessment and plan as written Dr. Isra lundy Objective - Vital Signs Vital signs: Vital Signs Temp 98.3 F 06/10/24 02:00 Pulse 55 L 06/10/24 02:00 Resp 18 06/09/24 20:00 BP 133/69 06/10/24 02:00 Pulse Ox 96 06/10/24 02:10 FiO2 Intake & Output 06/09/24 06/10/24 06/10/24 18:59 06:59 18:59 Other: # Voids 0 1 - Labs CBC & Chem 7: 06/10/24 04:36 06/10/24 04:36 Labs: Abnormal Lab Results - Last 24 Hours (Table) 06/09/24 06/09/24 Range/Units 07:53 08:37 MCHC 30.7 L (31.0-37.0) g/dL RDW 16.7 H (11.5-15.5) % Plt Count 452 H (150-450) k/uL Potassium 5.3 H (3.5-5.1) mmol/L Chloride 112 H (98-107) mmol/L BUN 4 L (7-17) mg/dL Microbiology - Last 24 Hours (Table) 06/06/24 15:13 Blood Culture - Preliminary Blood
[2024-06-10 16:52] LABS: Glucose,Whole Blood 79 mg/dL (70-110)
[2024-06-10 21:40] LABS: Glucose,Whole Blood 120 mg/dL (70-110)
[2024-06-11 05:41] LABS: Glucose,Whole Blood 130 mg/dL (70-110)
--- NOTE | 2024-06-11 08:21 | P.CONS ---
History of Present Illness - Reason for Consult Consult date: 06/10/24 Colitis with abscess Requesting physician: Loni Howard - Chief Complaint Abdominal pain x few days - History of Present Illness Patient is a 53-year-old female who recently did have multiple admission to the hospital last admission was from 05/30/2024 till 06/03/2024 and the patient was treated for right-sided colitis subsequently discharged on a 6-day course of Ceftin and Flagyl patient presented back to the hospital within 48 hours concerning for abdominal pain patient pain has been mostly to the right side of the abdominal area and describing the pain to be sharp, almost 9 out of 10 on severity on presentation to the hospital some relief with the pain medication did have nausea but no vomiting and no diarrhea with the symptoms the patient has been evaluated, the patient was afebrile on presentation to the hospital no fever have recorded subsequently patient was not hypotensive hypoxic or tachycardic patient did have a white count of 7.62 creatinine 0.8 liver enzymes are normal blood cultures obtained which are currently pending patient did have a CT abdominal pelvis inflammatory changes involving the cecum with adjacent 2.3 cm organized fluid collection favored to represent intramural wall abscess surgery was consulted recommending medical treatment patient did have repeat CT completed yesterday significant for 90s with abnormally thickened wall of the colon adjacent to the ileocecal wall concerning for localized colitis suspected intramural abscess normal appendix patient has been treated with Zosyn on the last 5 days infectious disease was consulted today for further management of any by therapy and possible IV on discharge as the patient has failed outpatient oral antibiotic therapy Review of Systems Positive point and negatives has been mentioned in the HPI, complete review of systems was performed and all other systems are negative Past Medical History Past Medical History: Asthma, Coronary Artery Disease (CAD), COPD, Diabetes Mellitus, GERD/Reflux, Hypertension, Myocardial Infarction (OR), Osteoarthritis (OA) Additional Past Medical History / Comment(s): DDD, scoliosis Last Myocardial Infarction Date:: 2011 History of Any Multi-Drug Resistant Organisms: None Reported Past Surgical History: Coronary Bypass/CABG, Heart Catheterization With Stent Additional Past Surgical History / Comment(s): seven stents Past Anesthesia/Blood Transfusion Reactions: No Reported Reaction Date of Last Stent Placement:: 11/2018 Past Psychological History: Anxiety, Bipolar Smoking Status: Current every day smoker Past Alcohol Use History: None Reported Additional Past Alcohol Use History / Comment(s): 1 ppd Past Drug Use History: Marijuana - Past Family History Mother Family Medical History: Cancer Additional Family Medical History / Comment(s): Ovarian cancer Father Family Medical History: Congestive Heart Failure (CHF) Fmily Family Medical History: No Reported History Medications and Allergies Home Medications Medication Instructions Recorded Confirmed Type Atorvastatin [Lipitor] 80 mg PO DAILY 07/08/20 06/06/24 History Ranolazine [Ranexa] 1,000 mg PO BID 11/13/21 06/06/24 History Albuterol Inhaler [Ventolin Hfa 2 puff INHALATION RT-QID PRN 03/27/23 06/06/24 History Inhaler] Aspirin EC [Ecotrin Low Dose] 81 mg PO DAILY 03/27/23 06/06/24 History Budesonide/Formoterol Fumarate 2 puff INHALATION RT-BID 03/27/23 06/06/24 History [Symbicort 160-4.5 Mcg Inhaler] Clopidogrel [Plavix] 75 mg PO DAILY 03/27/23 06/06/24 History Nitroglycerin Sl Tabs [Nitrostat] 0.4 mg SL Q5M PRN 03/27/23 06/06/24 History Omeprazole 40 mg PO BID 03/27/23 06/06/24 History Pregabalin [Lyrica] 150 mg PO TID 03/27/23 06/06/24 History amLODIPine [Norvasc] 10 mg PO DAILY 03/27/23 06/06/24 History metFORMIN HCL 1,000 mg PO BID 03/27/23 06/06/24 History rOPINIRole HCL [Requip] 1 mg PO HS 03/27/23 06/06/24 History ALPRAZolam [Xanax] 0.5 mg PO BID PRN 06/22/23 06/06/24 History Dapagliflozin Propanediol [Farxiga] 5 mg PO DAILY 03/16/24 06/06/24 History Dulaglutide [Trulicity] 3 mg SQ WE 03/16/24 06/06/24 History Insulin Lispro [humaLOG Kwikpen] See Protocol SQ AC-TID 03/16/24 06/06/24 History Ipratropium-Albuterol Nebulize 3 ml INHALATION RT-TID 03/16/24 06/06/24 History [Duoneb 0.5 mg-3 mg/3 ml Soln] Isosorbide Mononitrate ER [Imdur] 30 mg PO DAILY 03/16/24 06/06/24 History Mag Hydrox/Al Hydrox/Simeth 30 ml PO QID PRN 2 Days #180 ml 05/22/24 06/06/24 Rx [Maalox] Spiriva Respimat 1.25mcg/Actuation 2 puff INHALATION RT-DAILY 05/24/24 06/06/24 History Mist Metoprolol Tartrate [Lopressor] 25 mg PO BID #60 tab 05/29/24 06/06/24 Rx Albuterol Nebulized [Ventolin 2.5 mg INHALATION RT-Q6H PRN 05/31/24 06/06/24 History Nebulized] Ondansetron Odt [Zofran ODT] 4 mg PO Q8HR PRN 05/31/24 06/06/24 History lisinopriL [Zestril] 10 mg PO DAILY 05/31/24 06/06/24 History Cholestyramine (with Sugar) 4 gm PO BID #60 packet 06/03/24 06/06/24 Rx [Questran] HYDROcodone/APAP 5-325MG [[place] 1 tab PO BID PRN 3 Days #6 tab 06/03/24 06/06/24 Rx 5-325] cefUROXime axetiL [Ceftin] 500 mg PO BID 6 Days #12 tab 06/03/24 06/06/24 Rx metroNIDAZOLE [Flagyl] 500 mg PO TID 6 Days #18 tab 06/03/24 06/06/24 Rx Allergies Allergy/AdvReac Type Severity Reaction Status Date / Time No Known Allergies Allergy Verified 06/06/24 09:35 Physical Exam Vitals: Vital Signs Temp Pulse Pulse Resp BP BP Pulse Ox 06/10/24 11:42 60 06/10/24 11:32 59 L 06/10/24 08:13 60 06/10/24 08:10 59 L 18 06/10/24 08:05 64 06/10/24 08:00 98.5 F 59 L 18 137/81 98 06/10/24 02:10 96 06/10/24 02:00 98.3 F 55 L 133/69 86 L 06/09/24 20:34 80 06/09/24 20:24 84 06/09/24 20:00 98.1 F 77 18 116/76 88 L 06/09/24 14:00 97.5 F L 68 18 90/56 90 L 06/09/24 12:07 78 Intake and Output 06/09/24 06/10/24 06/10/24 22:59 06:59 14:59 Other: # Voids 0 1 GENERAL DESCRIPTION: Middle-aged female lying in bed, no distress. No tachypnea or accessory muscle of respiration use. HEENT: Shows Pallor , no scleral icterus. Oral mucous membrane is dry. No pharyngeal erythema or thrush NECK: Trachea central, no thyromegaly. LUNGS: Unlabored breathing. Clear to auscultation anteriorly. No wheeze or crackle. HEART: S1, S2, regular rate and rhythm. No loud murmur ABDOMEN: Soft, right-sided tenderness , no guarding or rigidity, no organomegaly EXTREMITIES: No edema of feet. SKIN: No rash, no masses palpable. NEUROLOGICAL: The patient is awake, alert, oriented x3, mood and affect normal. Results CBC & Chem 7: 06/10/24 04:36 06/10/24 04:36 Labs: Abnormal Lab Results - Last 24 Hours (Table) 06/10/24 06/10/24 Range/Units 04:36 04:36 RBC 3.77 L (4.10-5.20) X 10*6/uL Hgb 10.3 L (12.0-15.0) g/dL Hct 33.2 L (37.2-46.3) % MCHC 31.0 L (32.0-37.0) g/dL RDW 17.1 H (11.5-14.5) % Chloride 113 H (96-109) mmol/L BUN 4.1 L (9.0-27.0) mg/dL BUN/Creatinine Ratio 5.12 L (12.00-20.00) Ratio Microbiology - Last 24 Hours (Table) 06/05/24 23:36 Blood Culture - Preliminary Blood 06/06/24 15:13 Blood Culture - Preliminary Blood Assessment and Plan (1) Colitis with abscess Current Visit: Yes Status: Acute Code(s): K52.9 - NONINFECTIVE GASTROENTERITIS AND COLITIS, UNSPECIFIED; K63.0 - ABSCESS OF INTESTINE SNOMED Code(s): 82491135 Plan: 1patient with a multiple admission to the hospital has been diagnosed with a colitis with intramural abscess that has failed outpatient oral Ceftin and Flagyl therapy with repeat CT did shows persistent features of colitis around the cecum with intramural abscess and some clinical response to the Zosyn 2patient benefit from a PICC line and outpatient Zosyn therapy if no plan for surgical exploration at this point this was discussed with admitting team We will follow on clinical condition and cultures to further adjust medication if needed Thank you for this consultation we will follow the patient along with you Dictation was produced using [employer] dictation software. please excuse any grammatical, word or spelling errors. Time with Patient: Greater than 30
[2024-06-11 11:42] LABS: Glucose,Whole Blood 107 mg/dL (70-110)
--- NOTE | 2024-06-11 12:12 | P.PN ---
Subjective Progress Note Date: 06/11/24 CHIEF COMPLAINT: Diverticulitis with abscess HISTORY OF PRESENT ILLNESS: Patient continues to have abdominal pain more in the right lower abdomen. She reports that her overall pain is improving each day. She still rates her pain though about an 8. She denies any nausea or vomiting. She is having loose stools. Patient seen by infectious disease. She remains NPO. Afebrile. WBC 5.86 yesterday PHYSICAL EXAM: VITAL SIGNS: Reviewed. GENERAL: Well-developed in no acute distress. ABDOMEN: Soft. Mildly distended. Tenderness to palpation in the right lower quadrant NEUROLOGIC: Alert and oriented. Cranial nerves II through XII grossly intact. ASSESSMENT: 1. Right sided diverticular abscess PLAN: -Keep patient n.p.o. -Continue IV antibiotics. Antibiotics per ID service -Patient will need colonoscopy in 4 to 6 weeks after discharge Physician [employer] Architect note has been reviewed by physician. Signing provider agrees with the documented findings, assessment, and plan of care. Objective - Vital Signs Vital signs: Vital Signs Temp 97.5 F L 06/11/24 07:10 Pulse 60 06/11/24 11:49 Resp 16 06/11/24 08:05 BP 106/70 06/11/24 07:10 Pulse Ox 95 06/11/24 07:10 FiO2 Intake & Output 06/10/24 06/11/24 06/11/24 18:59 06:59 18:59 Weight 90.718 kg Other: Voiding Method Toilet # Voids 1 4 2 # Bowel Movements 2 1 - Labs CBC & Chem 7: 06/10/24 04:36 06/10/24 04:36 Labs: Abnormal Lab Results - Last 24 Hours (Table) 06/10/24 06/11/24 Range/Units 21:38 05:40 POC Glucose (mg/dL) 120 H 130 H (70-110) mg/dL Microbiology - Last 24 Hours (Table) 06/05/24 23:36 Blood Culture - Final Blood
--- NOTE | 2024-06-11 12:53 | P.PN ---
Subjective Progress Note Date: 06/11/24 Patient is a 53-year-old female with diabetes, hypertension, COPD, CABG with multiple stents most recently in November 2018 maintained on aspirin and Plavix presents with complaints of worsening abdominal pain. She was discharged from the hospital 2 days ago on Ceftin and Flagyl for colitis. During that hospital course her CT abdomen/pelvis revealed right-sided colitis she was started on IV Flagyl and ciprofloxacin and her WBCs trended down (11.5 to 8.21 on discharge). She endorsed improved pain throughout her stay and on the day of discharge she was asking to go home after she successfully ate lunch. During her stay her C. difficile PCR was negative. Endorses one episode of bloody emesis yesterday, and approximately 6 other episodes of non-bloody emesis since discharge but has had no vomiting since admission last night. Endorses compliance with medications since discharge. States pain is 6/10 right now but was 100/10 just before coming to ED. Denies current chest pain, shortness of breath, nausea, vomiting, hematochezia. Endorses right lower quadrant pain. CT abdomen/pelvis revealed inflammatory changes involving the cecum with adjacent 2.3 cm intramural wall abscess and reactive small bowel ileus. WBCs 12.3, hemoglobin 13.4, platelets 580. Urinalysis unremarkable. Afebrile, tachycardic since improved, hypertensive with systolic [id number]. 06/07. Patient seen and examined at bedside. She states that the pain is improved. Surgery consultedno intervention at this time. Endorses mild diarrhea starting. WBC 7.62. 06/08. Patient seen and examined lying comfortably on bed. She states the pain is significantly improved. Lab results pending. 06/09. Patient is evaluated in follow up today. She is resting in bed she is holding her abdomen and reporting pain to the RLQ. She is requesting IV pain medication. Noted that follow up abdominal pelvis CT done today reveals similar findings with abnormally thickened wall of the colon adjacent to the ileocecal valve region. Similar surrounding mild inflammatory fat stranding consider focal colitis. Suspected intramural abscess here is smaller at 1.8 cm vs. 2.5 cm previously. Normal appendix. New prominent fluid within the stomach. Fluid- filled small bowel loops are more numerous now. Consider worsening ileus. Trace pelvic free fluid redemonstrated. No free air. Potassium 5.3. today. 06/10. Patient seen and examined at bedside. Patient still with significant amount of pain on the right side of the abdomen as well as epigastric area. She is NPO. She endorses nausea. She denies fever, chest pain, shortness of breath. Infectious disease consulted. Labs unremarkable. 06/11. Patient seen and examined. Continues to complain of abdominal pain. Denies any nausea or vomiting, passing gas. ROS reviewed. Pertinent positives and negatives discussed above, a complete review of systems was performed and all the other systems were negative. Vital signs are stable. General: No acute distress. HEENT: Head exam is unremarkable. Lungs: Bilateral breath sounds present; no rhonchi, wheezes, or rales. Heart: Rate and rhythm are regular. Abdomen: RLQ tenderness, mild epigastric tenderness. Extremities: No edema present. Assessment/Plan: Intramural wall abscess Right sided colitis Surgery consultedno intervention at this time; awaiting further recommendations Continue IV Zosyn NPO as per surgery Zofran as needed for nausea Pain management Infectious disease following Diabetes mellitus type 2 Insulin sliding scale Hypertension Continue Norvasc Hyperlipidemia Continue Lipitor COPD Continue Ventolin as needed Continue Symbicort Continue DuoNeb History of CABG and stents Continue aspirin Anxiety Continue Xanax as needed Objective - Vital Signs Vital signs: Vital Signs Temp 97.5 F L 06/11/24 07:10 Pulse 61 06/11/24 07:10 Resp 16 06/11/24 07:10 BP 106/70 06/11/24 07:10 Pulse Ox 95 06/11/24 07:10 FiO2 Intake & Output 06/10/24 06/11/24 06/11/24 18:59 06:59 18:59 Other: # Voids 1 4 # Bowel Movements 2 - Labs CBC & Chem 7: 06/10/24 04:36 06/10/24 04:36 Labs: Abnormal Lab Results - Last 24 Hours (Table) 06/10/24 06/11/24 Range/Units 21:38 05:40 POC Glucose (mg/dL) 120 H 130 H (70-110) mg/dL Microbiology - Last 24 Hours (Table) 06/05/24 23:36 Blood Culture - Final Blood
--- NOTE | 2024-06-11 13:10 | P.PN ---
Subjective Progress Note Date: 06/11/24 Principal diagnosis: Reason for follow-up is colitis/intra-abdominal abscess Patient is a 53-year-old female who recently did have multiple admission to the hospital regarding right sided abdominal pain has been diagnosed with colitis with intramural abscess failing outpatient oral antibiotic therapy. On today's evaluation that is 06/11/2024, Patient is afebrile this morning patient denies having any chest pain shortness of breath or cough, the patient is breathing comfortably on room air, patient still complains of some pain to the right lower abdominal area no nausea vomiting or diarrhea patient has been asking for food mention feeling hungry. No new labs were obtained today Objective - Vital Signs Vital signs: Vital Signs Temp 97.5 F L 06/11/24 07:10 Pulse 60 06/11/24 11:49 Resp 16 06/11/24 08:05 BP 106/70 06/11/24 07:10 Pulse Ox 95 06/11/24 07:10 FiO2 Intake & Output 06/10/24 06/11/24 06/11/24 18:59 06:59 18:59 Weight 90.718 kg Other: Voiding Method Toilet # Voids 1 4 2 # Bowel Movements 2 1 - Exam GENERAL DESCRIPTION: Middle-age female lying in bed in no distress RESPIRATORY SYSTEM: Unlabored breathing , decreased breath sounds at bases HEART: S1 S2 regular rate and rhythm , ABDOMEN: Soft , no tenderness EXTREMITIES: No edema feet - Labs CBC & Chem 7: 06/10/24 04:36 06/10/24 04:36 Labs: Abnormal Lab Results - Last 24 Hours (Table) 06/10/24 06/11/24 Range/Units 21:38 05:40 POC Glucose (mg/dL) 120 H 130 H (70-110) mg/dL Microbiology - Last 24 Hours (Table) 06/05/24 23:36 Blood Culture - Final Blood Assessment and Plan (1) Colitis with abscess Current Visit: Yes Status: Acute Code(s): K52.9 - NONINFECTIVE GASTROENTERITIS AND COLITIS, UNSPECIFIED; K63.0 - ABSCESS OF INTESTINE SNOMED Code(s): 75306605 Plan: 1patient with a multiple admission to the hospital has been diagnosed with a colitis with intramural abscess that has failed outpatient oral Ceftin and Flagyl therapy with repeat CT did shows persistent features of colitis around the cecum with intramural abscess and some clinical response to the Zosyn 2patient to continue with the IV Zosyn and possible arrangement for outpatient IV antibiotic therapy, question concern answered Dictation was produced using [employer] dictation software. please excuse any grammatical, word or spelling errors. Time with Patient: Less than 30
[2024-06-11 16:12] LABS: Glucose,Whole Blood 74 mg/dL (70-110)
[2024-06-11 19:59] LABS: Glucose,Whole Blood 84 mg/dL (70-110)
[2024-06-12] MEDS: NITROGLYCERIN SL TABS 0.4 MG TAB SUBLINGUAL PRN (01:51)
[2024-06-12 01:53] LABS: Glucose,Whole Blood 76 mg/dL (70-110)
[2024-06-12 06:31] LABS: Glucose,Whole Blood 75 mg/dL (70-110)
[2024-06-12 08:40] LABS: Anisocytosis Slight; Basophils % (A) 0 %; Eosinophils # (A) 0.2 k/uL (0-0.7); Eosinophils % (A) 3 %; HCT 38.2 % (34.0-46.0); Hypochromasia Marked; Lymphocytes # (A) 1.7 k/uL (1.0-4.8); Lymphocytes % (A) 29 %; MCH 27.9 pg (25.0-35.0); MCHC 31.4 g/dL (31.0-37.0); MCV 88.9 fL (80.0-100.0); Mean Platelet Volume 7.7; Monocytes # (A) 0.3 k/uL (0-1.0); Monocytes % (A) 6 %; Neutrophils # (A) 3.4 k/uL (1.3-7.7); Neutrophils % (A) 60 %; Platelet Count 457 k/uL (150-450); RBC 4.29 m/uL (3.80-5.40); RDW 16.6 % (11.5-15.5); WBC 5.8 k/uL (3.8-10.6)
[2024-06-12 08:47] LABS: Partial Thromboplastin Time 24.4 sec (22.0-30.0); Prothrombin Time 10.8 sec (10.0-12.5)
[2024-06-12 08:57] LABS: African American GFR (CKD) >90 (>60 ml/min/1.73 sqM); Anion Gap 10 mmol/L; Blood Urea Nitrogen 5 mg/dL (7-17); Calcium 9.2 mg/dL (8.4-10.2); Carbon Dioxide 24 mmol/L (22-30); Chloride 110 mmol/L (98-107); Glucose 89 mg/dL (74-99); Non-African American GFR(CKD) 86 (>60 ml/min/1.73 sqM); Potassium 2.9 mmol/L (3.5-5.1); Sodium 144 mmol/L (137-145)
[2024-06-12] MEDS ORDERED: Potassium Replacement Protocol 1 EACH MISC MISCELLANE PRN (11:30)
--- NOTE | 2024-06-12 11:54 | P.PN ---
Subjective Progress Note Date: 06/12/24 Patient is a 53-year-old female with diabetes, hypertension, COPD, CABG with multiple stents most recently in November 2018 maintained on aspirin and Plavix presents with complaints of worsening abdominal pain. She was discharged from the hospital 2 days ago on Ceftin and Flagyl for colitis. During that hospital course her CT abdomen/pelvis revealed right-sided colitis she was started on IV Flagyl and ciprofloxacin and her WBCs trended down (11.5 to 8.21 on discharge). She endorsed improved pain throughout her stay and on the day of discharge she was asking to go home after she successfully ate lunch. During her stay her C. difficile PCR was negative. Endorses one episode of bloody emesis yesterday, and approximately 6 other episodes of non-bloody emesis since discharge but has had no vomiting since admission last night. Endorses compliance with medications since discharge. States pain is 6/10 right now but was 100/10 just before coming to ED. Denies current chest pain, shortness of breath, nausea, vomiting, hematochezia. Endorses right lower quadrant pain. CT abdomen/pelvis revealed inflammatory changes involving the cecum with adjacent 2.3 cm intramural wall abscess and reactive small bowel ileus. WBCs 12.3, hemoglobin 13.4, platelets 580. Urinalysis unremarkable. Afebrile, tachycardic since improved, hypertensive with systolic [id number]. 06/07. Patient seen and examined at bedside. She states that the pain is improved. Surgery consultedno intervention at this time. Endorses mild diarrhea starting. WBC 7.62. 06/08. Patient seen and examined lying comfortably on bed. She states the pain is significantly improved. Lab results pending. 06/09. Patient is evaluated in follow up today. She is resting in bed she is holding her abdomen and reporting pain to the RLQ. She is requesting IV pain medication. Noted that follow up abdominal pelvis CT done today reveals similar findings with abnormally thickened wall of the colon adjacent to the ileocecal valve region. Similar surrounding mild inflammatory fat stranding consider focal colitis. Suspected intramural abscess here is smaller at 1.8 cm vs. 2.5 cm previously. Normal appendix. New prominent fluid within the stomach. Fluid- filled small bowel loops are more numerous now. Consider worsening ileus. Trace pelvic free fluid redemonstrated. No free air. Potassium 5.3. today. 06/10. Patient seen and examined at bedside. Patient still with significant amount of pain on the right side of the abdomen as well as epigastric area. She is NPO. She endorses nausea. She denies fever, chest pain, shortness of breath. Infectious disease consulted. Labs unremarkable. 06/11. Patient seen and examined. Continues to complain of abdominal pain. Denies any nausea or vomiting, passing gas. 06/12. Patient seen and examined at bedside lying comfortably. Continues to complain of abdominal pain. Excited but nervous for surgery. Denies any nausea, vomiting, fever, chills. Endorses passing gas and 3 episodes of diarrhea today. Patient going to the operating room today. Midline was placed this morning. ROS reviewed. Pertinent positives and negatives discussed above, a complete review of systems was performed and all the other systems were negative. Physical examination: Vital signs are stable. General: No acute distress. AOx3. HEENT: Head exam is unremarkable. EOMI bilaterally. ACs patent. Nares patent. Lungs: Bilateral breath sounds present; no rhonchi, wheezes, or rales. Heart: Rate and rhythm are regular. S1-S2 present. No murmur/rub/gallops. Abdomen: Diffuse tenderness; soft, nondistended. Bowel sounds present. Extremities: No edema present. Symmetric movement. Psych: Normal affect and mood. Cooperative. Assessment/Plan: Intramural wall abscess Right sided colitis Surgery consultedplan to go to the operating room today Continue IV Zosyn with possible outpatient IV antibiotics per infectious disease NPO as per surgery Zofran as needed for nausea Pain management Infectious disease consulted Diabetes mellitus type 2 Insulin sliding scale Hypertension Continue Norvasc Hyperlipidemia Continue Lipitor COPD Continue Ventolin as needed Continue Symbicort Continue DuoNeb History of CABG and stents Continue aspirin Anxiety Continue Xanax as needed Attestation I have seen and examined this patient with my resident , discussed the same with the resident/OLIVIA, and agree with the dictator's assessment and plan as written GENERAL: The patient is alert and oriented x3, not in any acute distress. Well developed, well nourished. HEENT: Pupils are round and equally reacting to light. EOMI. No scleral icterus. No conjunctival pallor. Normocephalic, atraumatic. No pharyngeal erythema. No thyromegaly. CARDIOVASCULAR: S1 and S2 present. No murmurs, rubs, or gallops. PULMONARY: Chest is clear to auscultation, no wheezing or crackles. ABDOMEN: Tenderness in right upper quadrant, bowel sounds are sluggish MUSCULOSKELETAL: No joint swelling or deformity. EXTREMITIES: No cyanosis, clubbing, or pedal edema. NEUROLOGICAL: Gross neurological examination did not reveal any focal deficits. SKIN: No rashes. Dr. Isra lundy Objective - Vital Signs Vital signs: Vital Signs Temp 98.1 F 06/12/24 01:41 Pulse 53 L 06/12/24 01:41 Resp 17 06/12/24 01:41 BP 145/59 06/12/24 01:41 Pulse Ox 94 L 06/12/24 01:41 FiO2 Intake & Output 06/11/24 06/12/24 06/12/24 18:59 06:59 18:59 Intake Total 1200 Balance 1200 Weight 90.718 kg Intake: Oral 1200 Other: Voiding Method Toilet Toilet # Voids 3 4 # Bowel Movements 1 - Labs CBC & Chem 7: 06/12/24 08:22 06/13/24 05:34 Labs: Microbiology - Last 24 Hours (Table) 06/06/24 15:13 Blood Culture - Final Blood 06/05/24 23:36 Blood Culture - Final Blood
[2024-06-12] MEDS: POTASSIUM CHLORIDE 10 MEQ in WATER FOR INJECTION 1 100ML.BAG IVPB SCH (11:59)
[2024-06-12 12:15] LABS: Glucose,Whole Blood 78 mg/dL (70-110)
[2024-06-12] MEDS: DEXAMETHASONE SOD PHOSPHATE 4 MG/ML 1 ML VIAL IVP STA (14:30)
[2024-06-12] MEDS: fentaNYL (PF) 50 MCG/ML 2 ML AMP IVP STA (14:31)
[2024-06-12] MEDS: LIDOCAINE 1%-EPI 1:100,000 20 ML VIAL SQ ONE ×2 (14:59→17:33)
[2024-06-12] MEDS ORDERED: ROCURONIUM 10 MG/ML (5 ML VIAL) IV ONE (15:08)
[2024-06-12] MEDS ORDERED: GLYCOPYRROLATE 0.2 MG/ML 2 ML VIAL ONE (15:08)
[2024-06-12] MEDS ORDERED: fentaNYL (PF) 50 MCG/ML 2 ML AMP ONE (15:08)
[2024-06-12] MEDS ORDERED: SUCCINYLCHOLINE CHLORIDE 200 MG/10 ML VIAL IV ONE (15:08)
[2024-06-12] MEDS ORDERED: PHENYLEPHRINE 10 MG/ML VIAL ONE (15:08)
[2024-06-12] MEDS ORDERED: MIDAZOLAM 2 MG/2 ML VIAL ONE (15:08)
[2024-06-12] MEDS ORDERED: LIDOCAINE 1% INJ 10MG/ML (20 ML MDV) ONE (15:08)
[2024-06-12] MEDS ORDERED: PROPOFOL 10 MG/ML 20 ML VIAL IV ONE (15:08)
[2024-06-12] MEDS ORDERED: NEOSTIGMINE 1 MG/ML 10 ML VIAL ONE (15:08)
[2024-06-12] MEDS: IV FLUID CONTINUATION 900 ML IV ONE (15:29)
[2024-06-12] MEDS: LACTATED RINGERS 1,000 ML IV ONE ×2 (15:56→17:24)
[2024-06-12] MEDS: HYDROmorphone 0.5 MG/0.5 ML SYRINGE IVP PRN (18:02)
[2024-06-12] MEDS: ALBUTEROL NEBULIZED 2.5 MG/3 ML INHALATION STA (18:15)
[2024-06-12 18:25] LABS: Glucose,Whole Blood 125 mg/dL (70-110)
[2024-06-12] MEDS: fentaNYL (PF) 50 MCG/ML 2 ML AMP IVP PRN (18:46)
[2024-06-12 20:31] LABS: Glucose,Whole Blood 128 mg/dL (70-110)
[2024-06-13 06:14] LABS: African American GFR (CKD) >90 (>60 ml/min/1.73 sqM); Anion Gap 9 mmol/L; Blood Urea Nitrogen 6 mg/dL (7-17); Calcium 8.9 mg/dL (8.4-10.2); Carbon Dioxide 17 mmol/L (22-30); Chloride 117 mmol/L (98-107); Glucose 97 mg/dL (74-99); Non-African American GFR(CKD) >90 (>60 ml/min/1.73 sqM); Potassium 4.7 mmol/L (3.5-5.1); Sodium 143 mmol/L (137-145)
[2024-06-13 06:21] LABS: Glucose,Whole Blood 97 mg/dL (70-110)
[2024-06-13] MEDS: HYDROmorphone 1 MG/ML 1 ML SYRINGE IVP PRN (10:33)
--- NOTE | 2024-06-13 11:30 | P.PN ---
Subjective Progress Note Date: 06/13/24 CHIEF COMPLAINT: Diverticulitis with abscess HISTORY OF PRESENT ILLNESS: Patient is postop day #1 status post diagnostic laparoscopic abdominal washout converted to open with ileocecectomy with drain placement. Patient is complaining of abdominal pain. She complains of a lot of gas pressure in the upper abdomen. She denies any bowel activity. Denies any nausea or vomiting. Afebrile. OSCAR drain with 160 mL serosanguineous output PHYSICAL EXAM: VITAL SIGNS: Reviewed. GENERAL: Well-developed in no acute distress. ABDOMEN: Mildly distended. Incisional dressing clean dry and intact. Tenderness with palpation. OSCAR drain with serosanguineous output NEUROLOGIC: Alert and oriented. Cranial nerves II through XII grossly intact. ASSESSMENT: 1. Colitis with intramural wall abscess PLAN: -Adjust IV Dilaudid to 1 mg every 3 hours as needed for pain. Added IV Tylenol. Discontinued Percocet until bowel activity occurs -Keep patient n.p.o. -Antibiotics per ID service -Continue IV fluids -Incentive spirometer ordered -Encourage patient to increase activity level -DVT prophylaxis subcu heparin GI prophylaxis Protonix Physician [employer] note has been reviewed by physician. Signing provider agrees with the documented findings, assessment, and plan of care. Objective - Vital Signs Vital signs: Vital Signs Temp 97.8 F 06/13/24 08:00 Pulse 71 06/13/24 08:00 Resp 18 06/13/24 08:00 BP 126/74 06/13/24 08:00 Pulse Ox 94 L 06/13/24 08:00 FiO2 Intake & Output 06/12/24 06/13/24 06/13/24 18:59 06:59 18:59 Intake Total 1800 Output Total 340 1500 160 Balance 1460 -1500 -160 Intake: IV 1800 Output: Drainage 160 Left Lower Abdomen 160 Urine 300 1500 Estimated Blood Loss 40 Other: Voiding Method Indwelling Catheter Indwelling Catheter # Voids 1 - Labs CBC & Chem 7: 06/12/24 08:22 06/13/24 05:34 Labs: Abnormal Lab Results - Last 24 Hours (Table) 06/12/24 06/12/24 06/13/24 Range/Units 18:23 20:19 05:34 Chloride 117 H (98-107) mmol/L Carbon Dioxide 17 L (22-30) mmol/L BUN 6 L (7-17) mg/dL POC Glucose (mg/dL) 125 H 128 H (70-110) mg/dL
[2024-06-13 11:45] LABS: Glucose,Whole Blood 88 mg/dL (70-110)
--- NOTE | 2024-06-13 12:20 | P.PN ---
Subjective Progress Note Date: 06/13/24 Patient is a 53-year-old female with diabetes, hypertension, COPD, CABG with multiple stents most recently in November 2018 maintained on aspirin and Plavix presents with complaints of worsening abdominal pain. She was discharged from the hospital 2 days ago on Ceftin and Flagyl for colitis. During that hospital course her CT abdomen/pelvis revealed right-sided colitis she was started on IV Flagyl and ciprofloxacin and her WBCs trended down (11.5 to 8.21 on discharge). She endorsed improved pain throughout her stay and on the day of discharge she was asking to go home after she successfully ate lunch. During her stay her C. difficile PCR was negative. Endorses one episode of bloody emesis yesterday, and approximately 6 other episodes of non-bloody emesis since discharge but has had no vomiting since admission last night. Endorses compliance with medications since discharge. States pain is 6/10 right now but was 100/10 just before coming to ED. Denies current chest pain, shortness of breath, nausea, vomiting, hematochezia. Endorses right lower quadrant pain. CT abdomen/pelvis revealed inflammatory changes involving the cecum with adjacent 2.3 cm intramural wall abscess and reactive small bowel ileus. WBCs 12.3, hemoglobin 13.4, platelets 580. Urinalysis unremarkable. Afebrile, tachycardic since improved, hypertensive with systolic [id number]. 06/07. Patient seen and examined at bedside. She states that the pain is improved. Surgery consultedno intervention at this time. Endorses mild diarrhea starting. WBC 7.62. 06/08. Patient seen and examined lying comfortably on bed. She states the pain is significantly improved. Lab results pending. 06/09. Patient is evaluated in follow up today. She is resting in bed she is holding her abdomen and reporting pain to the RLQ. She is requesting IV pain medication. Noted that follow up abdominal pelvis CT done today reveals similar findings with abnormally thickened wall of the colon adjacent to the ileocecal valve region. Similar surrounding mild inflammatory fat stranding consider focal colitis. Suspected intramural abscess here is smaller at 1.8 cm vs. 2.5 cm previously. Normal appendix. New prominent fluid within the stomach. Fluid- filled small bowel loops are more numerous now. Consider worsening ileus. Trace pelvic free fluid redemonstrated. No free air. Potassium 5.3. today. 06/10. Patient seen and examined at bedside. Patient still with significant amount of pain on the right side of the abdomen as well as epigastric area. She is NPO. She endorses nausea. She denies fever, chest pain, shortness of breath. Infectious disease consulted. Labs unremarkable. 06/11. Patient seen and examined. Continues to complain of abdominal pain. Denies any nausea or vomiting, passing gas. 06/12. Patient seen and examined at bedside lying comfortably. Continues to complain of abdominal pain. Excited but nervous for surgery. Denies any nausea, vomiting, fever, chills. Endorses passing gas and 3 episodes of diarrhea today. Patient going to the operating room today. Midline was placed this morning. 06/13. Patient seen lying in bed. She is postop day 1 status post diagnostic laparoscopic abdominal washout converted to open with ileocecectomy with drain placement. She is complaining of abdominal pain and a lot of pressure in epigastric region. She has not passed flatus. ROS reviewed. Pertinent positives and negatives discussed above, a complete review of systems was performed and all the other systems were negative. Physical examination: Vital signs are stable. General: No acute distress. AOx3. HEENT: Head exam is unremarkable. EOMI bilaterally. ACs patent. Nares pa tent. Lungs: Bilateral breath sounds present; no rhonchi, wheezes, or rales. Heart: Rate and rhythm are regular. S1-S2 present. No murmur/rub/gallops. Abdomen: Diffuse tenderness; soft, nondistended. Bowel sounds present. Extremities: No edema present. Symmetric movement. Psych: Normal affect and mood. Cooperative. Assessment/Plan: Intramural wall abscess Right sided colitis Postop day 1 status post diagnostic laparoscopic abdominal washout converted to open with ileocecectomy with drain placement Continue IV Zosyn with possible outpatient IV antibiotics per infectious disease NPO as per surgery Pain management Educated patient on importance of incentive spirometry 10 times per hour Surgery recommendations: Discontinue Percocet, add IV Tylenol, PICC line placement for TPN Diabetes mellitus type 2 Insulin sliding scale Hypertension Continue Norvasc Hyperlipidemia Continue Lipitor COPD Continue Ventolin as needed Continue Symbicort Continue DuoNeb History of CABG and stents Continue aspirin Anxiety Continue Xanax as needed Attestation I have seen and examined this patient with my resident , discussed the same with the resident/OLIVIA, and agree with the dictator's assessment and plan as written GENERAL: The patient is alert and oriented x3, not in any acute distress. Well developed, well nourished. HEENT: Pupils are round and equally reacting to light. EOMI. No scleral icterus. No conjunctival pallor. Normocephalic, atraumatic. No pharyngeal erythema. No thyromegaly. CARDIOVASCULAR: S1 and S2 present. No murmurs, rubs, or gallops. PULMONARY: Chest is clear to auscultation, no wheezing or crackles. ABDOMEN: Laparotomy surgical incision seen, drain in place, tenderness present MUSCULOSKELETAL: No joint swelling or deformity. EXTREMITIES: No cyanosis, clubbing, or pedal edema. NEUROLOGICAL: Gross neurological examination did not reveal any focal deficits. SKIN: No rashes. Dr. Isra lundy Objective - Vital Signs Vital signs: Vital Signs Temp 97.8 F 06/13/24 08:00 Pulse 72 06/13/24 11:35 Resp 18 06/13/24 08:00 BP 126/74 06/13/24 08:00 Pulse Ox 94 L 06/13/24 08:00 FiO2 Intake & Output 06/12/24 06/13/24 06/13/24 18:59 06:59 18:59 Intake Total 1800 Output Total 340 1500 160 Balance 1460 -1500 -160 Intake: IV 1800 Output: Drainage 160 Left Lower Abdomen 160 Urine 300 1500 Estimated Blood Loss 40 Other: Voiding Method Indwelling Catheter Indwelling Catheter # Voids 1 - Labs CBC & Chem 7: 06/12/24 08:22 06/14/24 06:33 Labs: Abnormal Lab Results - Last 24 Hours (Table) 06/12/24 06/12/24 06/13/24 Range/Units 18:23 20:19 05:34 Chloride 117 H (98-107) mmol/L Carbon Dioxide 17 L (22-30) mmol/L BUN 6 L (7-17) mg/dL POC Glucose (mg/dL) 125 H 128 H (70-110) mg/dL
[2024-06-13 13:06] LABS: Prothrombin Time 10.9 sec (10.0-12.5)
[2024-06-13] MEDS: ACETAMINOPHEN IV (For NPO) 1,000 MG in EMPTY BAG 1 BAG IVPB SCH (13:27)
[2024-06-13] MEDS: PIPERACILLIN-TAZOBACTAM 3.375 GM in SODIUM CHLORIDE 0.9% 100 ML IVPB SCH (13:28)
[2024-06-13] MEDS: HEPARIN SODIUM,PORCINE 5,000 UNIT/ML 1 ML VIAL SQ SCH (13:37)
[2024-06-13 15:04] LABS: Albumin 3.5 g/dL (3.5-5.0); Magnesium 1.6 mg/dL (1.6-2.3); Phosphorus 3.8 mg/dL (2.5-4.5)
--- NOTE | 2024-06-13 15:36 | P.PN ---
Subjective Progress Note Date: 06/12/24 Principal diagnosis: Reason for follow-up is colitis/intra-abdominal abscess Patient is a 53-year-old female who recently did have multiple admission to the hospital regarding right sided abdominal pain has been diagnosed with colitis with intramural abscess failing outpatient oral antibiotic therapy. On today's evaluation that is 06/12/2024,the patient denies any fever or any chills, patient is breathing comfortably on room air, the patient denies chest pain shortness of breath and no significant cough, patient complaining of abdominal pain but no worsening no nausea vomiting or diarrhea. Patient white count is 5.8, creatinine 0.78 Objective - Vital Signs Vital signs: Vital Signs Temp 97.5 F L 06/12/24 06:55 Pulse 68 06/12/24 08:39 Resp 17 06/12/24 06:55 BP 143/89 06/12/24 06:55 Pulse Ox 98 06/12/24 06:55 FiO2 Intake & Output 06/11/24 06/12/24 06/12/24 18:59 06:59 18:59 Intake Total 1200 Balance 1200 Weight 90.718 kg Intake: Oral 1200 Other: Voiding Method Toilet Toilet # Voids 3 4 1 # Bowel Movements 1 - Exam GENERAL DESCRIPTION: Middle-age female lying in bed in no distress RESPIRATORY SYSTEM: Unlabored breathing , decreased breath sounds at bases HEART: S1 S2 regular rate and rhythm , ABDOMEN: Soft , no tenderness EXTREMITIES: No edema feet - Labs CBC & Chem 7: 06/12/24 08:22 06/13/24 05:34 Labs: Abnormal Lab Results - Last 24 Hours (Table) 06/12/24 06/12/24 Range/Units 08:22 08:22 RDW 16.6 H (11.5-15.5) % Plt Count 457 H (150-450) k/uL Potassium 2.9 L (3.5-5.1) mmol/L Chloride 110 H (98-107) mmol/L BUN 5 L (7-17) mg/dL Microbiology - Last 24 Hours (Table) 06/06/24 15:13 Blood Culture - Final Blood Assessment and Plan (1) Colitis with abscess Current Visit: Yes Status: Acute Code(s): K52.9 - NONINFECTIVE GASTROENTERITIS AND COLITIS, UNSPECIFIED; K63.0 - ABSCESS OF INTESTINE SNOMED Code(s): 96610079 Plan: 1patient with a multiple admission to the hospital has been diagnosed with a colitis with intramural abscess that has failed outpatient oral Ceftin and Flagyl therapy with repeat CT did shows persistent features of colitis around the cecum with intramural abscess and slow clinical response to the medical therapy patient is considered for surgery this afternoon culture should be obtained and will continue with Zosyn Dictation was produced using [email or web address] dictation software. please excuse any grammatical, word or spelling errors. Time with Patient: Less than 30
--- NOTE | 2024-06-13 15:37 | P.PN ---
Subjective Progress Note Date: 06/13/24 Principal diagnosis: Reason for follow-up is colitis/intra-abdominal abscess Patient is a 53-year-old female who recently did have multiple admission to the hospital regarding right sided abdominal pain has been diagnosed with colitis with intramural abscess failing outpatient oral antibiotic therapy. Patient is status post diagnostic laparoscopic abdominal washout converted to open laparotomy with loop cecectomy and drain placement On today's evaluation that is 06/13/2024,the patient remains to be afebrile, patient is on room air not requiring supplemental oxygen and denies any shortness of breath no chest pain or cough.Patient has been complaining of abdominal pain postsurgery mostly gaseous distention nausea but no vomiting. Patient did have a creatinine of 0.69 no CBC was done today Objective - Vital Signs Vital signs: Vital Signs Temp 97.8 F 06/13/24 08:00 Pulse 72 06/13/24 11:35 Resp 18 06/13/24 08:00 BP 126/74 06/13/24 08:00 Pulse Ox 94 L 06/13/24 08:00 FiO2 Intake & Output 06/12/24 06/13/24 06/13/24 18:59 06:59 18:59 Intake Total 1800 Output Total 340 1500 160 Balance 1460 -1500 -160 Intake: IV 1800 Output: Drainage 160 Left Lower Abdomen 160 Urine 300 1500 Estimated Blood Loss 40 Other: Voiding Method Indwelling Catheter Indwelling Catheter # Voids 1 - Exam GENERAL DESCRIPTION: Middle-age female lying in bed in no distress RESPIRATORY SYSTEM: Unlabored breathing , decreased breath sounds at bases HEART: S1 S2 regular rate and rhythm , ABDOMEN: Soft , midline incision is currently intact minimal tenderness EXTREMITIES: No edema feet - Labs CBC & Chem 7: 06/12/24 08:22 06/13/24 05:34 Labs: Abnormal Lab Results - Last 24 Hours (Table) 06/12/24 06/12/24 06/13/24 Range/Units 18:23 20:19 05:34 Chloride 117 H (98-107) mmol/L Carbon Dioxide 17 L (22-30) mmol/L BUN 6 L (7-17) mg/dL POC Glucose (mg/dL) 125 H 128 H (70-110) mg/dL Assessment and Plan (1) Colitis with abscess Current Visit: Yes Status: Acute Code(s): K52.9 - NONINFECTIVE GASTROENTERITIS AND COLITIS, UNSPECIFIED; K63.0 - ABSCESS OF INTESTINE SNOMED Code(s): 78642002 Plan: 1patient with a multiple admission to the hospital has been diagnosed with a colitis with intramural abscess that has failed outpatient oral Ceftin and Flagyl therapy with repeat CT did shows persistent features of colitis around the cecum with intramural abscess and slow clinical response to the medical therapy patient is status post laparotomy with ileocecectomy and drain placement unfortunately no cultures were done we will continue with Zosyn and monitor clinical course closely Dictation was produced using [employer] dictation software. please excuse any grammatical, word or spelling errors. Time with Patient: Less than 30
[2024-06-13 17:03] LABS: Glucose,Whole Blood 84 mg/dL (70-110)
[2024-06-13] MEDS: MVI, ADULT NO.4 WITH VIT K 10 ML, TRACE (CONC-1ML/DOSE) 1 ML, SODIUM ACETATE 30 MEQ, PO... IV ONE (17:55)
[2024-06-13 20:36] LABS: Glucose,Whole Blood 117 mg/dL (70-110)
--- NOTE | 2024-06-14 01:52 | P.PN ---
Progress Note - Text Progress Note Date: 06/14/24 CHIEF COMPLAINT: Diverticulitis with abscess HISTORY OF PRESENT ILLNESS: Patient is postop day #2 status post diagnostic laparoscopic abdominal washout converted to open with ileocecectomy with drain placement. Pain is better controlled. No passing any gas. OSCAR is serosangenous PHYSICAL EXAM: VITAL SIGNS: Reviewed. GENERAL: Well-developed in no acute distress. ABDOMEN: Mildly distended. Incisional dressing clean dry and intact. Tenderness with palpation. OSCAR drain with serosanguineous output NEUROLOGIC: Alert and oriented. Cranial nerves II through XII grossly intact. ASSESSMENT: 1. Colitis with intramural wall abscess PLAN: -Pain Control -NPO -Antibiotics per ID service -Continue IV fluids -Incentive spirometer ordered -Encourage patient to increase activity level -DVT prophylaxis subcu heparin GI prophylaxis Protonix Freeman Portillo [facility] [phone]
[2024-06-14 06:18] LABS: Glucose,Whole Blood 119 mg/dL (70-110)
[2024-06-14 07:03] LABS: ALT 9 U/L (4-34); AST 25 U/L (14-36); African American GFR (CKD) >90 (>60 ml/min/1.73 sqM); Albumin 3.3 g/dL (3.5-5.0); Albumin/Globulin Ratio 1.4; Alkaline Phosphatase 89 U/L (38-126); Anion Gap 6 mmol/L; Blood Urea Nitrogen 6 mg/dL (7-17); Calcium 8.9 mg/dL (8.4-10.2); Carbon Dioxide 28 mmol/L (22-30); Chloride 106 mmol/L (98-107); Globulin 2.4 g/dL; Glucose 126 mg/dL (74-99); Magnesium 1.7 mg/dL (1.6-2.3); Non-African American GFR(CKD) >90 (>60 ml/min/1.73 sqM); Potassium 2.9 mmol/L (3.5-5.1); Sodium 140 mmol/L (137-145); Total Bilirubin 0.6 mg/dL (0.2-1.3); Total Protein 5.7 g/dL (6.3-8.2)
[2024-06-14 07:08] LABS: Ionized Calcium 4.8 mg/dL (4.5-5.3)
[2024-06-14] MEDS: PANTOPRAZOLE 40 MG/10 ML VIAL IVP SCH (08:21)
[2024-06-14] MEDS: FAT EMULSION 20% 250 ML in EMPTY BAG 1 BAG IV SCH (08:22)
--- NOTE | 2024-06-14 09:47 | P.OP ---
Date of Procedure: 06/11/24 Preoperative Diagnosis: diverticular abscess Postoperative Diagnosis: diverticular abscess Procedure(s) Performed: Diagnostic laparoscopy converted to open with ileocectomy Anesthesia: CHAYO Surgeon: Adrian Dubois Pathology: other (ileum/cecum/appendix) Condition: stable Disposition: PACU Operative Findings: diverticular abscess Description of Procedure: patient was brought to the operating room where she was cleaned and draped in sterile fashion a timeout was performed and everyone agreed with the information resited. Excellent left upper quadrant incision was made and a 5 mm Visiport was then used to gain access to more working ports were placed in the periumbilical region in the left lower quadrant I placed the small bowel cephalad turned my attention to the cecum where I encountered a large area of small bowel and colon connected to each other. This was taken down using blunt dissection however the adhesions appeared to be too hard so I converted to open and finished taking down adhesions I discovered there was a large perforation in the medial wall of the cecum once a free up all the bowel there was a serosal tear and the distal ileum about 30 cm proximal to the ileal ileocecal valve. I 60s using 3-0 Vicryl suture in an interrupted fashion. Next and then turned my attention to creating a window 5 cm distal from the ileocecal valve and resected this part of the small bowel using a 60 mm Endo NOA staple. I then turned my attention to creating a window in the mid ascending colon. I freed up the lateral attachments and resected this part of the colon using a 60 mm Endo NOA stapler. I then created anastomosis with another Endo NOA stapler. I then ran the small bowel irrigated the pelvis broke up any abscess cavities and then close the patient's abdomen using looped Maxon and a cephalad to caudad and a caudad to cephalad fashion I closed the incisions using 4-0 Vicryl suture in an interrupted fashion patient tolerated the procedure well and was then transported to PACU in stable condition.
[2024-06-14] MEDS: POTASSIUM CHLORIDE 20 MEQ in WATER FOR INJECTION 1 100ML.BAG IVPB SCH (11:13)
[2024-06-14 11:28] LABS: Glucose,Whole Blood 134 mg/dL (70-110)
--- NOTE | 2024-06-14 14:19 | P.PN ---
Subjective Progress Note Date: 06/14/24 Patient is a 53-year-old female with diabetes, hypertension, COPD, CABG with multiple stents most recently in November 2018 maintained on aspirin and Plavix presents with complaints of worsening abdominal pain. She was discharged from the hospital 2 days ago on Ceftin and Flagyl for colitis. During that hospital course her CT abdomen/pelvis revealed right-sided colitis she was started on IV Flagyl and ciprofloxacin and her WBCs trended down (11.5 to 8.21 on discharge). She endorsed improved pain throughout her stay and on the day of discharge she was asking to go home after she successfully ate lunch. During her stay her C. difficile PCR was negative. Endorses one episode of bloody emesis yesterday, and approximately 6 other episodes of non-bloody emesis since discharge but has had no vomiting since admission last night. Endorses compliance with medications since discharge. States pain is 6/10 right now but was 100/10 just before coming to ED. Denies current chest pain, shortness of breath, nausea, vomiting, hematochezia. Endorses right lower quadrant pain. CT abdomen/pelvis revealed inflammatory changes involving the cecum with adjacent 2.3 cm intramural wall abscess and reactive small bowel ileus. WBCs 12.3, hemoglobin 13.4, platelets 580. Urinalysis unremarkable. Afebrile, tachycardic since improved, hypertensive with systolic [id number]. 06/07. Patient seen and examined at bedside. She states that the pain is improved. Surgery consultedno intervention at this time. Endorses mild diarrhea starting. WBC 7.62. 06/08. Patient seen and examined lying comfortably on bed. She states the pain is significantly improved. Lab results pending. 06/09. Patient is evaluated in follow up today. She is resting in bed she is holding her abdomen and reporting pain to the RLQ. She is requesting IV pain medication. Noted that follow up abdominal pelvis CT done today reveals similar findings with abnormally thickened wall of the colon adjacent to the ileocecal valve region. Similar surrounding mild inflammatory fat stranding consider focal colitis. Suspected intramural abscess here is smaller at 1.8 cm vs. 2.5 cm previously. Normal appendix. New prominent fluid within the stomach. Fluid- filled small bowel loops are more numerous now. Consider worsening ileus. Trace pelvic free fluid redemonstrated. No free air. Potassium 5.3. today. 06/10. Patient seen and examined at bedside. Patient still with significant amount of pain on the right side of the abdomen as well as epigastric area. She is NPO. She endorses nausea. She denies fever, chest pain, shortness of breath. Infectious disease consulted. Labs unremarkable. 06/11. Patient seen and examined. Continues to complain of abdominal pain. Denies any nausea or vomiting, passing gas. 06/12. Patient seen and examined at bedside lying comfortably. Continues to complain of abdominal pain. Excited but nervous for surgery. Denies any nausea, vomiting, fever, chills. Endorses passing gas and 3 episodes of diarrhea today. Patient going to the operating room today. Midline was placed this morning. 06/13. Patient seen lying in bed. She is postop day 1 status post diagnostic laparoscopic abdominal washout converted to open with ileocecectomy with drain placement. She is complaining of abdominal pain and a lot of pressure in epigastric region. She has not passed flatus. 06/14. Patient seen and examined laying in bed. She is postop day 2 status post diagnostic laparoscopic abdominal washout converted to open with ileocecectomy with drain placement. She endorses improved abdominal pain with pressure in the epigastric region. She has not passed flatus. OSCAR drain is serosanguineous fluid. Potassium 2.9. TPN has been started. ROS reviewed. Pertinent positives and negatives discussed above, a complete review of systems was performed and all the other systems were negative. Physical examination: Vital signs are stable. General: No acute distress. AOx4. HEENT: Head exam is unremarkable. EOMI bilaterally. ACs patent. Nares patent. Lungs: Bilateral breath sounds present; no rhonchi, wheezes, or rales. Heart: Rate and rhythm are regular. S1-S2 present. No murmur/rub/gallops. Abdomen: Diffuse tenderness; soft, nondistended. Bowel sounds present. Extremities: No edema present. Symmetric movement. Psych: Normal affect and mood. Cooperative. Assessment/Plan: Intramural wall abscess Right sided colitis Postop day 1 status post diagnostic laparoscopic abdominal washout converted to open with ileocecectomy with drain placement Continue IV Zosyn with possible outpatient IV antibiotics per infectious disease NPO as per surgery Pain management Educated patient on importance of incentive spirometry 10 times per hour Surgery recommendations: Discontinue Percocet, add IV Tylenol, PICC line placement for TPN placed TPN started Hypokalemia Replete potassium Diabetes mellitus type 2 Insulin sliding scale Hypertension Continue Norvasc Hyperlipidemia Continue Lipitor COPD Continue Ventolin as needed Continue Symbicort Continue DuoNeb History of CABG and stents Continue aspirin Anxiety Continue Xanax as needed DVT prophylaxis: Subcutaneous heparin GI prophylaxis: Protonix Attestation I have seen and examined this patient with my resident , discussed the same with the resident/OLIVIA, and agree with the dictator's assessment and plan as written Dr. Isra lundy Objective - Vital Signs Vital signs: Vital Signs Temp 97.6 F 06/14/24 01:40 Pulse 55 L 06/14/24 01:40 Resp 18 06/14/24 01:40 BP 126/76 06/14/24 01:40 Pulse Ox 91 L 06/14/24 01:40 FiO2 Intake & Output 06/13/24 06/14/24 06/14/24 18:59 06:59 18:59 Output Total 1500 2500 Balance -1500 -2500 Weight 90.718 kg Output: Drainage 200 Left Lower Abdomen 200 Urine 1300 2500 Other: Voiding Method Indwelling Catheter Indwelling Catheter # Voids 4 - Labs CBC & Chem 7: 06/12/24 08:22 06/15/24 05:35 Labs: Abnormal Lab Results - Last 24 Hours (Table) 06/13/24 06/14/24 06/14/24 Range/Units 20:34 06:16 06:33 Potassium 2.9 L (3.5-5.1) mmol/L BUN 6 L (7-17) mg/dL Glucose 126 H (74-99) mg/dL POC Glucose (mg/dL) 117 H 119 H (70-110) mg/dL Total Protein 5.7 L (6.3-8.2) g/dL Albumin 3.3 L (3.5-5.0) g/dL
--- NOTE | 2024-06-14 14:48 | P.PN ---
Subjective Progress Note Date: 06/14/24 Principal diagnosis: Reason for follow-up is colitis/intra-abdominal abscess Patient is a 53-year-old female who recently did have multiple admission to the hospital regarding right sided abdominal pain has been diagnosed with colitis with intramural abscess failing outpatient oral antibiotic therapy. Patient is status post diagnostic laparoscopic abdominal washout converted to open laparotomy with loop cecectomy and drain placement On today's evaluation that is 06/14/2024, the patient continues to be afebrile, the patient is on 2 L nasal cannula oxygen and breathing comfortably, the Pt denies having any chest pain or cough, the patient abdominal pain currently controlled with the pain medication denies any nausea vomiting no BM and has not passed any gas. Patient did have a creatinine 0.66 electrolytes are normal blood culture negative no OR cultures Objective - Vital Signs Vital signs: Vital Signs Temp 98.4 F 06/14/24 07:13 Pulse 73 06/14/24 08:49 Resp 20 06/14/24 07:13 BP 144/89 06/14/24 07:13 Pulse Ox 94 L 06/14/24 08:40 FiO2 Intake & Output 06/13/24 06/14/24 06/14/24 18:59 06:59 18:59 Output Total 1500 2500 Balance -1500 -2500 Weight 90.718 kg 90.718 kg Output: Drainage 200 Left Lower Abdomen 200 Urine 1300 2500 Other: Voiding Method Indwelling Catheter Indwelling Catheter # Voids 4 - Exam GENERAL DESCRIPTION: Middle-age female lying in bed in no distress RESPIRATORY SYSTEM: Unlabored breathing , decreased breath sounds at bases HEART: S1 S2 regular rate and rhythm , ABDOMEN: Soft , midline incision is currently intact minimal tenderness EXTREMITIES: No edema feet - Labs CBC & Chem 7: 06/12/24 08:22 06/14/24 06:33 Labs: Abnormal Lab Results - Last 24 Hours (Table) 06/13/24 06/14/24 06/14/24 Range/Units 20:34 06:16 06:33 Potassium 2.9 L (3.5-5.1) mmol/L BUN 6 L (7-17) mg/dL Glucose 126 H (74-99) mg/dL POC Glucose (mg/dL) 117 H 119 H (70-110) mg/dL Total Protein 5.7 L (6.3-8.2) g/dL Albumin 3.3 L (3.5-5.0) g/dL 06/14/24 Range/Units 11:27 Potassium (3.5-5.1) mmol/L BUN (7-17) mg/dL Glucose (74-99) mg/dL POC Glucose (mg/dL) 134 H (70-110) mg/dL Total Protein (6.3-8.2) g/dL Albumin (3.5-5.0) g/dL Assessment and Plan (1) Colitis with abscess Current Visit: Yes Status: Acute Code(s): K52.9 - NONINFECTIVE GASTROENTERITIS AND COLITIS, UNSPECIFIED; K63.0 - ABSCESS OF INTESTINE SNOMED Code(s): 03115633 Plan: 1patient with a multiple admission to the hospital has been diagnosed with a colitis with intramural abscess that has failed outpatient oral Ceftin and Flagyl therapy with repeat CT did shows persistent features of colitis around the cecum with intramural abscess and slow clinical response to the medical therapy patient is status post laparotomy with ileocecectomy and drain placement unfortunately no cultures were done 2-patient to continue with Zosyn and monitor clinical course closely Dictation was produced using [employer] dictation software. please excuse any grammatical, word or spelling errors. Time with Patient: Less than 30
[2024-06-14 16:43] LABS: Glucose,Whole Blood 112 mg/dL (70-110)
[2024-06-14] MEDS: MVI, ADULT NO.4 WITH VIT K 10 ML, TRACE (CONC-1ML/DOSE) 1 ML, SODIUM ACETATE 30 MEQ, PO... IV SCH (16:46)
[2024-06-14 20:20] LABS: Glucose,Whole Blood 118 mg/dL (70-110)
[2024-06-15 06:08] LABS: Glucose,Whole Blood 152 mg/dL (70-110)
[2024-06-15 06:10] LABS: ALT 8 U/L (4-34); AST 19 U/L (14-36); African American GFR (CKD) >90 (>60 ml/min/1.73 sqM); Albumin/Globulin Ratio 1.3; Alkaline Phosphatase 83 U/L (38-126); Anion Gap 2 mmol/L; Blood Urea Nitrogen 8 mg/dL (7-17); Calcium 8.8 mg/dL (8.4-10.2); Carbon Dioxide 25 mmol/L (22-30); Chloride 109 mmol/L (98-107); Globulin 2.3 g/dL; Glucose 146 mg/dL (74-99); Non-African American GFR(CKD) >90 (>60 ml/min/1.73 sqM); Phosphorus 4.2 mg/dL (2.5-4.5); Potassium 3.2 mmol/L (3.5-5.1); Sodium 136 mmol/L (137-145); Total Bilirubin 0.5 mg/dL (0.2-1.3); Total Protein 5.3 g/dL (6.3-8.2)
--- NOTE | 2024-06-15 09:25 | P.PN ---
Progress Note - Text Progress Note Date: 06/15/24 CHIEF COMPLAINT: Diverticulitis with abscess HISTORY OF PRESENT ILLNESS: Patient is postop day #3 status post diagnostic laparoscopic abdominal washout converted to open with ileocecectomy with drain placement. Pain is better controlled. No passing any gas. OSCAR is serosangenous PHYSICAL EXAM: VITAL SIGNS: Reviewed. GENERAL: Well-developed in no acute distress. ABDOMEN: Mildly distended. Incisional dressing clean dry and intact. Tenderness with palpation. OSCAR drain with serosanguineous output NEUROLOGIC: Alert and oriented. Cranial nerves II through XII grossly intact. ASSESSMENT: 1. Colitis with intramural wall abscess PLAN: -Pain Control -maintain NPO -Antibiotics per ID service -Continue IV fluids -Incentive spirometer ordered -Encourage patient to increase activity level -DVT prophylaxis subcu heparin GI prophylaxis Protonix Freeman Portillo DO [facility] [phone]
[2024-06-15] MEDS ORDERED: Potassium Replacement Protocol 1 EACH MISC MISCELLANE PRN (11:54)
[2024-06-15 11:59] LABS: Glucose,Whole Blood 115 mg/dL (70-110)
[2024-06-15] MEDS: POTASSIUM CHLORIDE ER 20 MEQ TAB.ER PO SCH (12:42)
[2024-06-15] MEDS ORDERED: POTASSIUM CHLORIDE 20 MEQ in WATER FOR INJECTION 1 100ML.BAG IVPB SCH (13:00)
--- NOTE | 2024-06-15 14:42 | P.PN ---
Subjective Progress Note Date: 06/15/24 Patient is a 53-year-old female with diabetes, hypertension, COPD, CABG with multiple stents most recently in November 2018 maintained on aspirin and Plavix presents with complaints of worsening abdominal pain. She was discharged from the hospital 2 days ago on Ceftin and Flagyl for colitis. During that hospital course her CT abdomen/pelvis revealed right-sided colitis she was started on IV Flagyl and ciprofloxacin and her WBCs trended down (11.5 to 8.21 on discharge). She endorsed improved pain throughout her stay and on the day of discharge she was asking to go home after she successfully ate lunch. During her stay her C. difficile PCR was negative. Endorses one episode of bloody emesis yesterday, and approximately 6 other episodes of non-bloody emesis since discharge but has had no vomiting since admission last night. Endorses compliance with medications since discharge. States pain is 6/10 right now but was 100/10 just before coming to ED. Denies current chest pain, shortness of breath, nausea, vomiting, hematochezia. Endorses right lower quadrant pain. CT abdomen/pelvis revealed inflammatory changes involving the cecum with adjacent 2.3 cm intramural wall abscess and reactive small bowel ileus. WBCs 12.3, hemoglobin 13.4, platelets 580. Urinalysis unremarkable. Afebrile, tachycardic since improved, hypertensive with systolic [id number]. 06/07. Patient seen and examined at bedside. She states that the pain is improved. Surgery consultedno intervention at this time. Endorses mild diarrhea starting. WBC 7.62. 06/08. Patient seen and examined lying comfortably on bed. She states the pain is significantly improved. Lab results pending. 06/09. Patient is evaluated in follow up today. She is resting in bed she is holding her abdomen and reporting pain to the RLQ. She is requesting IV pain medication. Noted that follow up abdominal pelvis CT done today reveals similar findings with abnormally thickened wall of the colon adjacent to the ileocecal valve region. Similar surrounding mild inflammatory fat stranding consider focal colitis. Suspected intramural abscess here is smaller at 1.8 cm vs. 2.5 cm previously. Normal appendix. New prominent fluid within the stomach. Fluid- filled small bowel loops are more numerous now. Consider worsening ileus. Trace pelvic free fluid redemonstrated. No free air. Potassium 5.3. today. 06/10. Patient seen and examined at bedside. Patient still with significant amount of pain on the right side of the abdomen as well as epigastric area. She is NPO. She endorses nausea. She denies fever, chest pain, shortness of breath. Infectious disease consulted. Labs unremarkable. 06/11. Patient seen and examined. Continues to complain of abdominal pain. Denies any nausea or vomiting, passing gas. 06/12. Patient seen and examined at bedside lying comfortably. Continues to complain of abdominal pain. Excited but nervous for surgery. Denies any nausea, vomiting, fever, chills. Endorses passing gas and 3 episodes of diarrhea today. Patient going to the operating room today. Midline was placed this morning. 06/13. Patient seen lying in bed. She is postop day 1 status post diagnostic laparoscopic abdominal washout converted to open with ileocecectomy with drain placement. She is complaining of abdominal pain and a lot of pressure in epigastric region. She has not passed flatus. 06/14. Patient seen and examined laying in bed. She is postop day 2 status post diagnostic laparoscopic abdominal washout converted to open with ileocecectomy with drain placement. She endorses improved abdominal pain with pressure in the epigastric region. She has not passed flatus. OSCAR drain is serosanguineous fluid. Potassium 2.9. TPN has been started. 06/15. Patient seen laying in bed. She is postop day 3 status post diagnostic laparoscopic abdominal washout converted to open with ileocecectomy with drain placement. She endorses improved abdominal pain and increased ambulation. She has not passed flatus. She is ambulating well around the unit. OSCAR drain is serosanguineous fluid. Potassium is 3.2. Endorses nausea and relief with Zofran. ROS reviewed. Pertinent positives and negatives discussed above, a complete review of systems was performed and all the other systems were negative. Physical examination: Vital signs are stable. General: No acute distress. AOx4. HEENT: Head exam is unremarkable. EOMI bilaterally. ACs patent. Nares patent. Lungs: Bilateral breath sounds present; no rhonchi, wheezes, or rales. Heart: Rate and rhythm are regular. S1-S2 present. No murmur/rub/gallops. Abdomen: Diffuse tenderness; soft, nondistended. Bowel sounds present. Extremities: No edema present. Symmetric movement. Psych: Normal affect and mood. Cooperative. Assessment/Plan: Intramural wall abscess Right sided colitis Postop day 3 status post diagnostic laparoscopic abdominal washout converted to open with ileocecectomy with drain placement Continue IV Zosyn with possible outpatient IV antibiotics per infectious disease NPO as per surgery Pain management Educated patient on importance of incentive spirometry 10 times per hour Hypokalemia Replete potassium per protocol Diabetes mellitus type 2 Insulin sliding scale Hypertension Continue Norvasc Hyperlipidemia Continue Lipitor COPD Continue Ventolin as needed Continue Symbicort Continue DuoNeb History of CABG and stents Continue aspirin Anxiety Continue Xanax as needed DVT prophylaxis: Subcutaneous heparin GI prophylaxis: Protonix Attestation I have seen and examined this patient with my resident , discussed the same with the resident/OLIVIA, and agree with the dictator's assessment and plan as written Dr. Isra lundy Objective - Vital Signs Vital signs: Vital Signs Temp 98.7 F 06/15/24 00:17 Pulse 70 06/15/24 00:17 Resp 20 06/15/24 00:17 BP 111/71 06/15/24 00:17 Pulse Ox 93 L 06/15/24 00:17 FiO2 Intake & Output 06/14/24 06/14/24 06/15/24 06:59 18:59 06:59 Intake Total 1196 Output Total 2500 20 Balance -2500 1176 Weight 90.718 kg Intake: Intake, IV Titration 1196 Amount Mvi, Adult No.4 with Vit 696 K 10 ml Trace (Conc-1Ml/ Dose) 1 ml Sodium Acetate 30 meq Potassium Phosphate 15 mmol Magnesium Sulfate gm 1 gm Calcium Gluconate 1 gm In Amino Acids 5 %/ Dextrose 20 % 1,000 ml @ 58 mls/hr IV .[id number] AMANDA Rx#:[id number] Piperacillin-Tazobactam 3 200 .375 gm In Sodium Chloride 0.9% 100 ml @ 25 mls/hr IVPB Q8H AMANDA Rx#: [id number] Sodium Chloride 0.9% 1, 300 000 ml @ 75 mls/hr IV . [id number] AMANDA Rx#:[id number] Output: Drainage 20 Left Lower Abdomen 20 Urine 2500 Other: Voiding Method Indwelling Catheter # Voids 4 3 3 - Labs CBC & Chem 7: 06/17/24 05:34 06/16/24 04:52 Labs: Abnormal Lab Results - Last 24 Hours (Table) 06/14/24 06/14/24 06/14/24 Range/Units 06:33 11:27 16:42 Sodium (137-145) mmol/L Potassium 2.9 L (3.5-5.1) mmol/L Chloride (98-107) mmol/L BUN 6 L (7-17) mg/dL Glucose 126 H (74-99) mg/dL POC Glucose (mg/dL) 134 H 112 H (70-110) mg/dL Total Protein 5.7 L (6.3-8.2) g/dL Albumin 3.3 L (3.5-5.0) g/dL 06/14/24 06/15/24 06/15/24 Range/Units 20:17 05:35 06:06 Sodium 136 L (137-145) mmol/L Potassium 3.2 L (3.5-5.1) mmol/L Chloride 109 H (98-107) mmol/L BUN (7-17) mg/dL Glucose 146 H (74-99) mg/dL POC Glucose (mg/dL) 118 H 152 H (70-110) mg/dL Total Protein 5.3 L (6.3-8.2) g/dL Albumin 3.0 L (3.5-5.0) g/dL
--- NOTE | 2024-06-15 15:51 | P.PN ---
Subjective Progress Note Date: 06/15/24 Principal diagnosis: Reason for follow-up is colitis/intra-abdominal abscess Patient is a 53-year-old female who recently did have multiple admission to the hospital regarding right sided abdominal pain has been diagnosed with colitis with intramural abscess failing outpatient oral antibiotic therapy. Patient is status post diagnostic laparoscopic abdominal washout converted to open laparotomy with loop cecectomy and drain placement On today's evaluation that is 06/15/2024, Patient is afebrile patient is currently on 2 L nasal oxygen and denies having any shortness of breath, the patient denies any chest pain or cough, the patient denies any nausea vomiting still complain of some right-sided abdominal pain denies any bowel movement passed any gas. Patient did have a creatinine 0.67 no CBC was done today blood culture has been negative Objective - Vital Signs Vital signs: Vital Signs Temp 98.4 F 06/15/24 13:25 Pulse 88 06/15/24 14:08 Resp 16 06/15/24 13:25 BP 94/61 06/15/24 14:08 Pulse Ox 93 L 06/15/24 13:25 FiO2 Intake & Output 06/14/24 06/15/24 06/15/24 18:59 06:59 18:59 Intake Total 1196 1043 Output Total 20 Balance 1176 1043 Weight 90.718 kg Intake: Intake, IV Titration 1196 1043 Amount Mvi, Adult No.4 with Vit 696 1043 K 10 ml Trace (Conc-1Ml/ Dose) 1 ml Sodium Acetate 30 meq Potassium Phosphate 15 mmol Magnesium Sulfate gm 1 gm Calcium Gluconate 1 gm In Amino Acids 5 %/ Dextrose 20 % 1,000 ml @ 58 mls/hr IV .[id number] [facility] Rx#:[id number] Piperacillin-Tazobactam 3 200 .375 gm In Sodium Chloride 0.9% 100 ml @ 25 mls/hr IVPB Q8H [facility] Rx#: [id number] Sodium Chloride 0.9% 1, 300 000 ml @ 75 mls/hr IV . [id number] [facility] Rx#:[id number] Output: Drainage 20 Left Lower Abdomen 20 Other: Voiding Method Toilet # Voids 3 3 - Exam GENERAL DESCRIPTION: Middle-age female lying in bed in no distress RESPIRATORY SYSTEM: Unlabored breathing , decreased breath sounds at bases HEART: S1 S2 regular rate and rhythm , ABDOMEN: Soft , midline incision is currently intact minimal tenderness EXTREMITIES: No edema feet - Labs CBC & Chem 7: 06/12/24 08:22 06/15/24 05:35 Labs: Abnormal Lab Results - Last 24 Hours (Table) 06/14/24 06/14/24 06/15/24 Range/Units 16:42 20:17 05:35 Sodium 136 L (137-145) mmol/L Potassium 3.2 L (3.5-5.1) mmol/L Chloride 109 H (98-107) mmol/L Glucose 146 H (74-99) mg/dL POC Glucose (mg/dL) 112 H 118 H (70-110) mg/dL Total Protein 5.3 L (6.3-8.2) g/dL Albumin 3.0 L (3.5-5.0) g/dL 06/15/24 06/15/24 Range/Units 06:06 11:58 Sodium (137-145) mmol/L Potassium (3.5-5.1) mmol/L Chloride (98-107) mmol/L Glucose (74-99) mg/dL POC Glucose (mg/dL) 152 H 115 H (70-110) mg/dL Total Protein (6.3-8.2) g/dL Albumin (3.5-5.0) g/dL Assessment and Plan (1) Colitis with abscess Current Visit: Yes Status: Acute Code(s): K52.9 - NONINFECTIVE GASTROENTERITIS AND COLITIS, UNSPECIFIED; K63.0 - ABSCESS OF INTESTINE SNOMED Code(s): 63802293 Plan: 1patient with a multiple admission to the hospital has been diagnosed with a colitis with intramural abscess that has failed outpatient oral Ceftin and Flagyl therapy with repeat CT did shows persistent features of colitis around the cecum with intramural abscess and slow clinical response to the medical therapy patient is status post laparotomy with ileocecectomy and drain placement unfortunately no cultures were done 2-patient remains to be afebrile last WBC was normal, to continue with Zosyn and monitor clinical course closely Dictation was produced using [employer] dictation software. please excuse any grammatical, word or spelling errors. Time with Patient: Less than 30
[2024-06-15 16:32] LABS: Glucose,Whole Blood 149 mg/dL (70-110)
[2024-06-15 21:23] LABS: Glucose,Whole Blood 131 mg/dL (70-110)
--- NOTE | 2024-06-16 04:22 | P.PN ---
Progress Note - Text Progress Note Date: 06/16/24 CHIEF COMPLAINT: Diverticulitis with abscess HISTORY OF PRESENT ILLNESS: Patient is postop day #5 status post diagnostic laparoscopic abdominal washout converted to open with ileocecectomy with drain placement. Pain is controlled. No passing any gas. OSCAR is serosangenous PHYSICAL EXAM: VITAL SIGNS: Reviewed. GENERAL: Well-developed in no acute distress. ABDOMEN: Mildly distended. Incisional dressing clean dry and intact. Tenderness with palpation. OSCAR drain with serosanguineous output NEUROLOGIC: Alert and oriented. Cranial nerves II through XII grossly intact. ASSESSMENT: 1. Colitis with intramural wall abscess PLAN: -Pain Control -maintain NPO -Antibiotics per ID service -Continue IV fluids -Incentive spirometer ordered -Encourage patient to increase activity level -DVT prophylaxis subcu heparin -GI prophylaxis Protonix Freeman Portillo DO [facility] [phone]
[2024-06-16 06:11] LABS: Glucose,Whole Blood 129 mg/dL (70-110)
[2024-06-16 06:13] LABS: ALT 8 U/L (4-34); AST 24 U/L (14-36); African American GFR (CKD) >90 (>60 ml/min/1.73 sqM); Albumin 2.9 g/dL (3.5-5.0); Albumin/Globulin Ratio 1.3; Alkaline Phosphatase 79 U/L (38-126); Anion Gap 5 mmol/L; Blood Urea Nitrogen 11 mg/dL (7-17); Calcium 8.9 mg/dL (8.4-10.2); Carbon Dioxide 23 mmol/L (22-30); Chloride 111 mmol/L (98-107); Globulin 2.2 g/dL; Glucose 119 mg/dL (74-99); Non-African American GFR(CKD) >90 (>60 ml/min/1.73 sqM); Phosphorus 4.6 mg/dL (2.5-4.5); Potassium 3.5 mmol/L (3.5-5.1); Sodium 139 mmol/L (137-145); Total Bilirubin 0.5 mg/dL (0.2-1.3); Total Protein 5.1 g/dL (6.3-8.2)
[2024-06-16 10:01] LABS: BUN/Creat Ratio 15.57 Ratio (12.00-20.00); Blood Urea Nitrogen 10.9 mg/dL (9.0-27.0); Calcium 8.7 mg/dL (8.7-10.3); Carbon Dioxide 23.9 mmol/L (21.6-31.8); Chloride 108 mmol/L (96-109); Glucose 121 mg/dL (70-110); Potassium 3.6 mmol/L (3.5-5.5); Sodium 143 mmol/L (135-145)
[2024-06-16 10:05] LABS: Basophils # (A) 0.03 X 10*3/uL (0.00-0.10); Basophils % (A) 0.4 %; Eosinophils # (A) 0.49 X 10*3/uL (0.04-0.35); Eosinophils % (A) 6.8 %; HCT 36.9 % (37.2-46.3); HGB 11.2 g/dL (12.0-15.0); Lymphocytes # (A) 1.91 X 10*3/uL (0.90-5.00); Lymphocytes % (A) 26.5 %; MCH 26.6 pg (27.0-32.0); MCHC 30.4 g/dL (32.0-37.0); MCV 87.6 FL (80.0-97.0); Mean Platelet Volume 10.6 FL (9.5-12.2); Monocytes % (A) 9.7 %; NRBC Per 100 WBC 0 X 10*3/uL (0.00-0.01); Neutrophils # (A) 4.02 X 10*3/uL (1.80-7.70); Neutrophils % (A) 55.9 %; Platelet Count 397 X 10*3/uL (140-440); RBC 4.21 X 10*6/uL (4.10-5.20); RDW 16.9 % (11.5-14.5)
[2024-06-16 11:46] LABS: Glucose,Whole Blood 135 mg/dL (70-110)
[2024-06-16] MEDS: POTASSIUM CHLORIDE ER 20 MEQ TAB.ER PO SCH (12:52)
[2024-06-16] MEDS: HYDROcodone/APAP 5-325MG 1 EACH TAB PO PRN (12:58)
--- NOTE | 2024-06-16 14:15 | P.PN ---
Subjective Progress Note Date: 06/16/24 Patient is a 53-year-old female with diabetes, hypertension, COPD, CABG with multiple stents most recently in November 2018 maintained on aspirin and Plavix presents with complaints of worsening abdominal pain. She was discharged from the hospital 2 days ago on Ceftin and Flagyl for colitis. During that hospital course her CT abdomen/pelvis revealed right-sided colitis she was started on IV Flagyl and ciprofloxacin and her WBCs trended down (11.5 to 8.21 on discharge). She endorsed improved pain throughout her stay and on the day of discharge she was asking to go home after she successfully ate lunch. During her stay her C. difficile PCR was negative. Endorses one episode of bloody emesis yesterday, and approximately 6 other episodes of non-bloody emesis since discharge but has had no vomiting since admission last night. Endorses compliance with medications since discharge. States pain is 6/10 right now but was 100/10 just before coming to ED. Denies current chest pain, shortness of breath, nausea, vomiting, hematochezia. Endorses right lower quadrant pain. CT abdomen/pelvis revealed inflammatory changes involving the cecum with adjacent 2.3 cm intramural wall abscess and reactive small bowel ileus. WBCs 12.3, hemoglobin 13.4, platelets 580. Urinalysis unremarkable. Afebrile, tachycardic since improved, hypertensive with systolic [id number]. 06/07. Patient seen and examined at bedside. She states that the pain is improved. Surgery consultedno intervention at this time. Endorses mild diarrhea starting. WBC 7.62. 06/08. Patient seen and examined lying comfortably on bed. She states the pain is significantly improved. Lab results pending. 06/09. Patient is evaluated in follow up today. She is resting in bed she is holding her abdomen and reporting pain to the RLQ. She is requesting IV pain medication. Noted that follow up abdominal pelvis CT done today reveals similar findings with abnormally thickened wall of the colon adjacent to the ileocecal valve region. Similar surrounding mild inflammatory fat stranding consider focal colitis. Suspected intramural abscess here is smaller at 1.8 cm vs. 2.5 cm previously. Normal appendix. New prominent fluid within the stomach. Fluid- filled small bowel loops are more numerous now. Consider worsening ileus. Trace pelvic free fluid redemonstrated. No free air. Potassium 5.3. today. 06/10. Patient seen and examined at bedside. Patient still with significant amount of pain on the right side of the abdomen as well as epigastric area. She is NPO. She endorses nausea. She denies fever, chest pain, shortness of breath. Infectious disease consulted. Labs unremarkable. 06/11. Patient seen and examined. Continues to complain of abdominal pain. Denies any nausea or vomiting, passing gas. 06/12. Patient seen and examined at bedside lying comfortably. Continues to complain of abdominal pain. Excited but nervous for surgery. Denies any nausea, vomiting, fever, chills. Endorses passing gas and 3 episodes of diarrhea today. Patient going to the operating room today. Midline was placed this morning. 06/13. Patient seen lying in bed. She is postop day 1 status post diagnostic laparoscopic abdominal washout converted to open with ileocecectomy with drain placement. She is complaining of abdominal pain and a lot of pressure in epigastric region. She has not passed flatus. 06/14. Patient seen and examined laying in bed. She is postop day 2 status post diagnostic laparoscopic abdominal washout converted to open with ileocecectomy with drain placement. She endorses improved abdominal pain with pressure in the epigastric region. She has not passed flatus. OSCAR drain is serosanguineous fluid. Potassium 2.9. TPN has been started. 06/16. Patient seen and examined. Currently on TPN, states she feels better. Denies any nausea or vomiting, complaining of on and off abdominal pain. ROS reviewed. Pertinent positives and negatives discussed above, a complete review of systems was performed and all the other systems were negative. Physical examination: Vital signs are stable. General: No acute distress. AOx4. HEENT: Head exam is unremarkable. EOMI bilaterally. ACs patent. Nares patent. Lungs: Bilateral breath sounds present; no rhonchi, wheezes, or rales. Heart: Rate and rhythm are regular. S1-S2 present. No murmur/rub/gallops. Abdomen: Laparotomy surgical incision seen, drain in place Extremities: No edema present. Symmetric movement. Psych: Normal affect and mood. Cooperative. Assessment/Plan: Intramural wall abscess Right sided colitis status post diagnostic laparoscopic abdominal washout converted to open with ileocecectomy with drain placement Continue IV Zosyn with possible outpatient IV antibiotics per infectious disease Continue TPN surgery following Hypokalemia Monitor BMP Diabetes mellitus type 2 Insulin sliding scale Hypertension Continue Norvasc Hyperlipidemia Continue Lipitor COPD Continue Ventolin as needed Continue Symbicort Continue DuoNeb History of CABG and stents Continue aspirin Anxiety Continue Xanax as needed DVT prophylaxis: Subcutaneous heparin GI prophylaxis: Protonix Objective - Vital Signs Vital signs: Vital Signs Temp 98.1 F 06/16/24 07:36 Pulse 74 06/16/24 12:52 Resp 17 06/16/24 07:36 BP 103/62 06/16/24 07:36 Pulse Ox 94 L 06/16/24 07:36 FiO2 Intake & Output 06/15/24 06/16/24 06/16/24 18:59 06:59 18:59 Intake Total 1043 1016.933 Output Total 70 80 Balance 1043 946.933 -80 Intake: Intake, IV Titration 1043 1016.933 Amount Mvi, Adult No.4 with Vit 1043 1016.933 K 10 ml Trace (Conc-1Ml/ Dose) 1 ml Sodium Acetate 30 meq Potassium Phosphate 15 mmol Magnesium Sulfate gm 1 gm Calcium Gluconate 1 gm In Amino Acids 5 %/ Dextrose 20 % 1,000 ml @ 58 mls/hr IV .[id number] [facility] Rx#:[id number] Output: Drainage 70 80 Left Lower Abdomen 70 80 Other: Voiding Method Toilet Toilet # Voids 3 6 - Labs CBC & Chem 7: 06/16/24 04:52 06/16/24 04:52 Labs: Abnormal Lab Results - Last 24 Hours (Table) 06/15/24 06/15/24 06/16/24 Range/Units 16:30 21:22 04:52 Hgb 11.2 L (12.0-15.0) g/dL Hct 36.9 L (37.2-46.3) % MCH 26.6 L (27.0-32.0) pg MCHC 30.4 L (32.0-37.0) g/dL RDW 16.9 H (11.5-14.5) % Immature Gran # 0.05 H (0.00-0.04) X 10*3/uL Eosinophils # 0.49 H (0.04-0.35) X 10*3/uL Chloride (98-107) mmol/L Glucose (70-110) mg/dL POC Glucose (mg/dL) 149 H 131 H (70-110) mg/dL Phosphorus (2.5-4.5) mg/dL Total Protein (6.3-8.2) g/dL Albumin (3.5-5.0) g/dL 06/16/24 06/16/24 06/16/24 Range/Units 04:52 04:52 06:10 Hgb (12.0-15.0) g/dL Hct (37.2-46.3) % MCH (27.0-32.0) pg MCHC (32.0-37.0) g/dL RDW (11.5-14.5) % Immature Gran # (0.00-0.04) X 10*3/uL Eosinophils # (0.04-0.35) X 10*3/uL Chloride 111 H (98-107) mmol/L Glucose 121 H 119 H (70-110) mg/dL POC Glucose (mg/dL) 129 H (70-110) mg/dL Phosphorus 4.6 H (2.5-4.5) mg/dL Total Protein 5.1 L (6.3-8.2) g/dL Albumin 2.9 L (3.5-5.0) g/dL 06/16/24 Range/Units 11:45 Hgb (12.0-15.0) g/dL Hct (37.2-46.3) % MCH (27.0-32.0) pg MCHC (32.0-37.0) g/dL RDW (11.5-14.5) % Immature Gran # (0.00-0.04) X 10*3/uL Eosinophils # (0.04-0.35) X 10*3/uL Chloride (98-107) mmol/L Glucose (70-110) mg/dL POC Glucose (mg/dL) 135 H (70-110) mg/dL Phosphorus (2.5-4.5) mg/dL Total Protein (6.3-8.2) g/dL Albumin (3.5-5.0) g/dL
[2024-06-16] MEDS: HYDROmorphone 1 MG/ML 1 ML SYRINGE IVP PRN (14:45)
--- NOTE | 2024-06-16 16:26 | P.PN ---
Subjective Progress Note Date: 06/16/24 Principal diagnosis: Reason for follow-up is colitis/intra-abdominal abscess Patient is a 53-year-old female who recently did have multiple admission to the hospital regarding right sided abdominal pain has been diagnosed with colitis with intramural abscess failing outpatient oral antibiotic therapy. Patient is status post diagnostic laparoscopic abdominal washout converted to open laparotomy with loop cecectomy and drain placement On today's evaluation that is 06/16/2024, patient has been afebrile, patient is breathing comfortably and is currently on 2 L nasal cannula oxygen patient denies having any significant cough no chest pain shortness of breath, patient denies nausea vomiting abdominal pain has slightly decreased intensity still have no bowel movement and has not passed any gas. Patient white count 7.20 creatinine 0.70 blood cultures so far negative Objective - Vital Signs Vital signs: Vital Signs Temp 97.7 F 06/16/24 15:02 Pulse 79 06/16/24 15:02 Resp 17 06/16/24 15:02 BP 96/54 06/16/24 15:02 Pulse Ox 96 06/16/24 15:02 FiO2 Intake & Output 06/15/24 06/16/24 06/16/24 18:59 06:59 18:59 Intake Total 1043 1016.933 Output Total 70 80 Balance 1043 946.933 -80 Intake: Intake, IV Titration 1043 1016.933 Amount Mvi, Adult No.4 with Vit 1043 1016.933 K 10 ml Trace (Conc-1Ml/ Dose) 1 ml Sodium Acetate 30 meq Potassium Phosphate 15 mmol Magnesium Sulfate gm 1 gm Calcium Gluconate 1 gm In Amino Acids 5 %/ Dextrose 20 % 1,000 ml @ 58 mls/hr IV .[id number] [facility] Rx#:[id number] Output: Drainage 70 80 Left Lower Abdomen 70 80 Other: Voiding Method Toilet Toilet # Voids 3 6 - Exam GENERAL DESCRIPTION: Middle-age female lying in bed in no distress RESPIRATORY SYSTEM: Unlabored breathing , decreased breath sounds at bases HEART: S1 S2 regular rate and rhythm , ABDOMEN: Soft , midline incision is currently intact minimal tenderness EXTREMITIES: No edema feet - Labs CBC & Chem 7: 06/16/24 04:52 06/16/24 04:52 Labs: Abnormal Lab Results - Last 24 Hours (Table) 06/15/24 06/15/24 06/16/24 Range/Units 16:30 21:22 04:52 Hgb 11.2 L (12.0-15.0) g/dL Hct 36.9 L (37.2-46.3) % MCH 26.6 L (27.0-32.0) pg MCHC 30.4 L (32.0-37.0) g/dL RDW 16.9 H (11.5-14.5) % Immature Gran # 0.05 H (0.00-0.04) X 10*3/uL Eosinophils # 0.49 H (0.04-0.35) X 10*3/uL Chloride (98-107) mmol/L Glucose (70-110) mg/dL POC Glucose (mg/dL) 149 H 131 H (70-110) mg/dL Phosphorus (2.5-4.5) mg/dL Total Protein (6.3-8.2) g/dL Albumin (3.5-5.0) g/dL 06/16/24 06/16/24 06/16/24 Range/Units 04:52 04:52 06:10 Hgb (12.0-15.0) g/dL Hct (37.2-46.3) % MCH (27.0-32.0) pg MCHC (32.0-37.0) g/dL RDW (11.5-14.5) % Immature Gran # (0.00-0.04) X 10*3/uL Eosinophils # (0.04-0.35) X 10*3/uL Chloride 111 H (98-107) mmol/L Glucose 121 H 119 H (70-110) mg/dL POC Glucose (mg/dL) 129 H (70-110) mg/dL Phosphorus 4.6 H (2.5-4.5) mg/dL Total Protein 5.1 L (6.3-8.2) g/dL Albumin 2.9 L (3.5-5.0) g/dL 06/16/24 Range/Units 11:45 Hgb (12.0-15.0) g/dL Hct (37.2-46.3) % MCH (27.0-32.0) pg MCHC (32.0-37.0) g/dL RDW (11.5-14.5) % Immature Gran # (0.00-0.04) X 10*3/uL Eosinophils # (0.04-0.35) X 10*3/uL Chloride (98-107) mmol/L Glucose (70-110) mg/dL POC Glucose (mg/dL) 135 H (70-110) mg/dL Phosphorus (2.5-4.5) mg/dL Total Protein (6.3-8.2) g/dL Albumin (3.5-5.0) g/dL Assessment and Plan (1) Colitis with abscess Current Visit: Yes Status: Acute Code(s): K52.9 - NONINFECTIVE GASTROENTERITIS AND COLITIS, UNSPECIFIED; K63.0 - ABSCESS OF INTESTINE SNOMED Code(s): 88469661 Plan: 1patient with a multiple admission to the hospital has been diagnosed with a colitis with intramural abscess that has failed outpatient oral Ceftin and Flagyl therapy with repeat CT did shows persistent features of colitis around the cecum with intramural abscess and slow clinical response to the medical therapy patient is status post laparotomy with ileocecectomy and drain placement unfortunately no cultures were done 2-patient remains to be afebrile last WBC was normal, patient is currently being treated with Zosyn waiting for the resumption of the GI activity and monitor clinical course closely Dictation was produced using [employer] dictation software. please excuse any grammatical, word or spelling errors. Time with Patient: Less than 30
[2024-06-16 17:11] LABS: Glucose,Whole Blood 140 mg/dL (70-110)
[2024-06-16 21:33] LABS: Glucose,Whole Blood 109 mg/dL (70-110)
[2024-06-16] MEDS: MVI, ADULT NO.4 WITH VIT K 10 ML, TRACE (CONC-1ML/DOSE) 1 ML, SODIUM ACETATE 30 MEQ, PO... IV SCH (22:01)
[2024-06-17 06:39] LABS: Phosphorus 3.8 mg/dL (2.5-4.5)
[2024-06-17 06:47] LABS: Glucose,Whole Blood 123 mg/dL (70-110)
[2024-06-17 08:39] LABS: Basophils # (A) 0.03 X 10*3/uL (0.00-0.10); Basophils % (A) 0.4 %; Eosinophils % (A) 6.2 %; HCT 35.9 % (37.2-46.3); HGB 11.2 g/dL (12.0-15.0); Lymphocytes % (A) 26.2 %; MCH 27.6 pg (27.0-32.0); MCHC 31.2 g/dL (32.0-37.0); MCV 88.4 FL (80.0-97.0); Mean Platelet Volume 11.2 FL (9.5-12.2); Monocytes # (A) 0.89 X 10*3/uL (0.20-1.00); Monocytes % (A) 11.1 %; NRBC Per 100 WBC 0 X 10*3/uL (0.00-0.01); Neutrophils # (A) 4.43 X 10*3/uL (1.80-7.70); Neutrophils % (A) 55.4 %; Platelet Count 426 X 10*3/uL (140-440); RBC 4.06 X 10*6/uL (4.10-5.20); RDW 16.7 % (11.5-14.5); WBC 8.01 X 10*3/uL (4.50-10.00)
[2024-06-17 10:29] LABS: ALT 11 U/L (8-44); AST 20 U/L (13-35); Albumin 3.3 g/dL (3.8-4.9); Alkaline Phosphatase 87 U/L (41-126); BUN/Creat Ratio 19.43 Ratio (12.00-20.00); Blood Urea Nitrogen 13.6 mg/dL (9.0-27.0); Calcium 9.1 mg/dL (8.7-10.3); Carbon Dioxide 22.8 mmol/L (21.6-31.8); Chloride 107 mmol/L (96-109); Globulin 2.2 g/dL (1.6-3.3); Glucose 114 mg/dL (70-110); Potassium 3.9 mmol/L (3.5-5.5); Sodium 143 mmol/L (135-145); Total Bilirubin 0.3 mg/dL (0.3-1.2); Total Protein 5.5 g/dL (6.2-8.2)
[2024-06-17 11:51] LABS: Glucose,Whole Blood 139 mg/dL (70-110)
--- NOTE | 2024-06-17 12:02 | XR ---
EXAMINATION TYPE: XR abdomen 2V DATE OF EXAM: 06/17/2024 COMPARISON: 06/17/2024 INDICATION: Abdomen pain history of surgery colitis with abscess TECHNIQUE: Single view abdomen FINDINGS: Dilated small bowel loops with air-fluid levels are present. Air is within the colon. No mass effect is evident. Surgical skin enrike are present with a drainage catheter within the pelvis. Psoas margins are normal. No organomegaly is present. IMPRESSION: 1. Ileus versus partial small bowel obstruction. Continued follow-up is recommended. [facility], , 06/17/2024 12:00 PM
--- NOTE | 2024-06-17 12:48 | P.PN ---
Subjective Progress Note Date: 06/17/24 Patient is a 53-year-old female with diabetes, hypertension, COPD, CABG with multiple stents most recently in November 2018 maintained on aspirin and Plavix presents with complaints of worsening abdominal pain. She was discharged from the hospital 2 days ago on Ceftin and Flagyl for colitis. During that hospital course her CT abdomen/pelvis revealed right-sided colitis she was started on IV Flagyl and ciprofloxacin and her WBCs trended down (11.5 to 8.21 on discharge). She endorsed improved pain throughout her stay and on the day of discharge she was asking to go home after she successfully ate lunch. During her stay her C. difficile PCR was negative. Endorses one episode of bloody emesis yesterday, and approximately 6 other episodes of non-bloody emesis since discharge but has had no vomiting since admission last night. Endorses compliance with medications since discharge. States pain is 6/10 right now but was 100/10 just before coming to ED. Denies current chest pain, shortness of breath, nausea, vomiting, hematochezia. Endorses right lower quadrant pain. CT abdomen/pelvis revealed inflammatory changes involving the cecum with adjacent 2.3 cm intramural wall abscess and reactive small bowel ileus. WBCs 12.3, hemoglobin 13.4, platelets 580. Urinalysis unremarkable. Afebrile, tachycardic since improved, hypertensive with systolic [id number]. 06/07. Patient seen and examined at bedside. She states that the pain is improved. Surgery consultedno intervention at this time. Endorses mild diarrhea starting. WBC 7.62. 06/08. Patient seen and examined lying comfortably on bed. She states the pain is significantly improved. Lab results pending. 06/09. Patient is evaluated in follow up today. She is resting in bed she is holding her abdomen and reporting pain to the RLQ. She is requesting IV pain medication. Noted that follow up abdominal pelvis CT done today reveals similar findings with abnormally thickened wall of the colon adjacent to the ileocecal valve region. Similar surrounding mild inflammatory fat stranding consider focal colitis. Suspected intramural abscess here is smaller at 1.8 cm vs. 2.5 cm previously. Normal appendix. New prominent fluid within the stomach. Fluid- filled small bowel loops are more numerous now. Consider worsening ileus. Trace pelvic free fluid redemonstrated. No free air. Potassium 5.3. today. 06/10. Patient seen and examined at bedside. Patient still with significant amount of pain on the right side of the abdomen as well as epigastric area. She is NPO. She endorses nausea. She denies fever, chest pain, shortness of breath. Infectious disease consulted. Labs unremarkable. 06/11. Patient seen and examined. Continues to complain of abdominal pain. Denies any nausea or vomiting, passing gas. 06/12. Patient seen and examined at bedside lying comfortably. Continues to complain of abdominal pain. Excited but nervous for surgery. Denies any nausea, vomiting, fever, chills. Endorses passing gas and 3 episodes of diarrhea today. Patient going to the operating room today. Midline was placed this morning. 06/13. Patient seen lying in bed. She is postop day 1 status post diagnostic laparoscopic abdominal washout converted to open with ileocecectomy with drain placement. She is complaining of abdominal pain and a lot of pressure in epigastric region. She has not passed flatus. 06/14. Patient seen and examined laying in bed. She is postop day 2 status post diagnostic laparoscopic abdominal washout converted to open with ileocecectomy with drain placement. She endorses improved abdominal pain with pressure in the epigastric region. She has not passed flatus. OSCAR drain is serosanguineous fluid. Potassium 2.9. TPN has been started. 06/15. Patient seen laying in bed. She is postop day 3 status post diagnostic laparoscopic abdominal washout converted to open with ileocecectomy with drain placement. She endorses improved abdominal pain and increased ambulation. She has not passed flatus. She is ambulating well around the unit. OSCAR drain is serosanguineous fluid. Potassium is 3.2. Endorses nausea and relief with Zofran. 06/16. Patient seen and examined. Currently on TPN, states she feels better. Denies any nausea or vomiting, complaining of on and off abdominal pain. 06/17. Patient seen laying in bed. Postop day 5. Endorses epigastric abdominal pain. Ambulating well around the unit. Not passing flatus. ROS reviewed. Pertinent positives and negatives discussed above, a complete review of systems was performed and all the other systems were negative. Physical examination: Vital signs are stable. General: No acute distress. AOx4. HEENT: Head exam is unremarkable. EOMI bilaterally. ACs patent. Nares patent. Lungs: Bilateral breath sounds present; no rhonchi, wheezes, or rales. Heart: Rate and rhythm are regular. S1-S2 present. No murmur/rub/gallops. Abdomen: Diffuse tenderness; soft, nondistended. Bowel sounds present. Extremities: No edema present. Symmetric movement. Psych: Normal affect and mood. Cooperative. Assessment/Plan: Intramural wall abscess Right sided colitis Postop day 5 status post diagnostic laparoscopic abdominal washout converted to open with ileocecectomy with drain placement Continue IV Zosyn with possible outpatient IV antibiotics per infectious disease Continue TPN Surgery following Abdomen xray due to continued abdominal pain Hypokalemia Monitor BMP Diabetes mellitus type 2 Insulin sliding scale Hypertension Continue Norvasc Hyperlipidemia Continue Lipitor COPD Continue Ventolin as needed Continue Symbicort Continue DuoNeb History of CABG and stents Continue aspirin Anxiety Continue Xanax as needed DVT prophylaxis: Subcutaneous heparin GI prophylaxis: Protonix Attestation I have seen and examined this patient with my resident , discussed the same with the resident/OLIVIA, and agree with the dictator's assessment and plan as written GENERAL: The patient is alert and oriented x3, not in any acute distress. Well developed, well nourished. HEENT: Pupils are round and equally reacting to light. EOMI. No scleral icterus. No conjunctival pallor. Normocephalic, atraumatic. No pharyngeal erythema. No thyromegaly. CARDIOVASCULAR: S1 and S2 present. No murmurs, rubs, or gallops. PULMONARY: Chest is clear to auscultation, no wheezing or crackles. ABDOMEN: Distended, surgical incision seen, drain in place MUSCULOSKELETAL: No joint swelling or deformity. EXTREMITIES: No cyanosis, clubbing, or pedal edema. NEUROLOGICAL: Gross neurological examination did not reveal any focal deficits. SKIN: No rashes. Dr. Isra lundy Objective - Vital Signs Vital signs: Vital Signs Temp 97.9 F 06/17/24 01:48 Pulse 71 06/17/24 01:48 Resp 16 06/17/24 01:48 BP 108/72 06/17/24 01:48 Pulse Ox 90 L 06/17/24 01:48 FiO2 Intake & Output 06/16/24 06/17/24 06/17/24 18:59 06:59 18:59 Output Total 80 140 Balance -80 -140 Output: Drainage 80 140 Left Lower Abdomen 80 140 Other: Voiding Method Toilet # Voids 3 5 # Bowel Movements 5 - Labs CBC & Chem 7: 06/17/24 05:34 06/18/24 05:01 Labs: Abnormal Lab Results - Last 24 Hours (Table) 06/16/24 06/16/24 06/16/24 Range/Units 04:52 04:52 11:45 Hgb 11.2 L (12.0-15.0) g/dL Hct 36.9 L (37.2-46.3) % MCH 26.6 L (27.0-32.0) pg MCHC 30.4 L (32.0-37.0) g/dL RDW 16.9 H (11.5-14.5) % Immature Gran # 0.05 H (0.00-0.04) X 10*3/uL Eosinophils # 0.49 H (0.04-0.35) X 10*3/uL Glucose 121 H (70-110) mg/dL POC Glucose (mg/dL) 135 H (70-110) mg/dL 06/16/24 06/17/24 Range/Units 17:10 06:46 Hgb (12.0-15.0) g/dL Hct (37.2-46.3) % MCH (27.0-32.0) pg MCHC (32.0-37.0) g/dL RDW (11.5-14.5) % Immature Gran # (0.00-0.04) X 10*3/uL Eosinophils # (0.04-0.35) X 10*3/uL Glucose (70-110) mg/dL POC Glucose (mg/dL) 140 H 123 H (70-110) mg/dL
--- NOTE | 2024-06-17 13:19 | P.PN ---
Subjective Progress Note Date: 06/17/24 CHIEF COMPLAINT: Diverticulitis with abscess HISTORY OF PRESENT ILLNESS: Patient is postop day #6 status post diagnostic laparoscopic abdominal washout converted to open with ileocecectomy with drain placement. Patient reports abdominal pain. She is complaining of abdominal distention. She has had no bowel movement or flatus since surgery. Patient denies any nausea or vomiting. Afebrile. WBC 8.01 Hgb 11.2 platelets 426 sodium 143 potassium 3.9 creatinine 0.7. OSCAR drain with 140 mL output through the night and 40 mL serous output this morning. PHYSICAL EXAM: VITAL SIGNS: Reviewed. GENERAL: no acute distress. ABDOMEN: Distended. Incision dressing clean dry and intact. OSCAR drain serous NEUROLOGIC: Alert and oriented. Cranial nerves II through XII grossly intact. ASSESSMENT: 1. Colitis with intramural wall abscess 2. Postoperative ileus can be an expected finding PLAN: -Encourage patient to ambulate -Keep patient n.p.o. -Continue TPN for nutrition support -Continue antibiotics -Encourage incentive spirometer use -Unable to use Reglan for ileus due to its interaction with Requip -DVT prophylaxis subcu heparin GI prophylaxis Protonix Physician Facilities Painter note has been reviewed by physician. Signing provider agrees with the documented findings, assessment, and plan of care. Objective - Vital Signs Vital signs: Vital Signs Temp 98.4 F 06/17/24 07:30 Pulse 70 06/17/24 07:30 Resp 17 06/17/24 07:30 BP 103/69 06/17/24 07:30 Pulse Ox 92 L 06/17/24 07:30 FiO2 Intake & Output 06/16/24 06/17/24 06/17/24 18:59 06:59 18:59 Output Total 80 140 40 Balance -80 -140 -40 Weight 90.718 kg Output: Drainage 80 140 40 Left Lower Abdomen 80 140 40 Other: Voiding Method Toilet Toilet # Voids 3 5 # Bowel Movements 5 - Labs CBC & Chem 7: 06/17/24 05:34 06/17/24 05:34 Labs: Abnormal Lab Results - Last 24 Hours (Table) 06/16/24 06/17/24 06/17/24 Range/Units 17:10 05:34 05:34 RBC 4.06 L (4.10-5.20) X 10*6/uL Hgb 11.2 L (12.0-15.0) g/dL Hct 35.9 L (37.2-46.3) % MCHC 31.2 L (32.0-37.0) g/dL RDW 16.7 H (11.5-14.5) % Immature Gran # 0.06 H (0.00-0.04) X 10*3/uL Eosinophils # 0.50 H (0.04-0.35) X 10*3/uL Anion Gap 13.20 H (4.00-12.00) mmol/L Glucose 114 H (70-110) mg/dL POC Glucose (mg/dL) 140 H (70-110) mg/dL Total Protein 5.5 L (6.2-8.2) g/dL Albumin 3.3 L (3.8-4.9) g/dL Albumin/Globulin Ratio 1.50 L (1.60-3.17) Ratio 06/17/24 06/17/24 Range/Units 06:46 11:50 RBC (4.10-5.20) X 10*6/uL Hgb (12.0-15.0) g/dL Hct (37.2-46.3) % MCHC (32.0-37.0) g/dL RDW (11.5-14.5) % Immature Gran # (0.00-0.04) X 10*3/uL Eosinophils # (0.04-0.35) X 10*3/uL Anion Gap (4.00-12.00) mmol/L Glucose (70-110) mg/dL POC Glucose (mg/dL) 123 H 139 H (70-110) mg/dL Total Protein (6.2-8.2) g/dL Albumin (3.8-4.9) g/dL Albumin/Globulin Ratio (1.60-3.17) Ratio
[2024-06-17] MEDS: 1: MVI, ADULT NO.4 WITH VIT K 10 ML, TRACE (CONC-1ML/DOSE) 1 ML, SODIUM ACETATE 30 MEQ, IV SCH (14:44)
[2024-06-17 16:32] LABS: Glucose,Whole Blood 141 mg/dL (70-110)
[2024-06-17 20:30] LABS: Glucose,Whole Blood 133 mg/dL (70-110)
[2024-06-18 05:47] LABS: Glucose,Whole Blood 133 mg/dL (70-110)
[2024-06-18 05:52] LABS: African American GFR (CKD) >90 (>60 ml/min/1.73 sqM); Blood Urea Nitrogen 17 mg/dL (7-17); Carbon Dioxide 27 mmol/L (22-30); Chloride 106 mmol/L (98-107); Glucose 152 mg/dL (74-99); Non-African American GFR(CKD) >90 (>60 ml/min/1.73 sqM); Phosphorus 3.9 mg/dL (2.5-4.5)
[2024-06-18 06:13] LABS: Anion Gap 6 mmol/L; Potassium 3.9 mmol/L (3.5-5.1); Sodium 139 mmol/L (137-145)
[2024-06-18 11:41] LABS: Glucose,Whole Blood 127 mg/dL (70-110)
--- NOTE | 2024-06-18 13:01 | P.PN ---
Subjective Progress Note Date: 06/18/24 CHIEF COMPLAINT: Diverticulitis with abscess HISTORY OF PRESENT ILLNESS: Patient is postop day #7 status post diagnostic laparoscopic abdominal washout converted to open with ileocecectomy with drain placement. Patient reports she vomited a large amount this morning. And since then her pain is feeling better. She reports her abdomen is softer. She still had no bowel activity. She has been up and ambulating. Afebrile. OSCAR drain 80 mL serous output PHYSICAL EXAM: VITAL SIGNS: Reviewed. GENERAL: no acute distress. ABDOMEN: Abdomen is softer. Less distended. Tenderness at incision sites. I ncision dressing clean dry and intact. OSCAR drain serous NEUROLOGIC: Alert and oriented. Cranial nerves II through XII grossly intact. ASSESSMENT: 1. Colitis with intramural wall abscess 2. Postoperative ileus can be an expected finding PLAN: -Encourage patient to ambulate -Keep patient n.p.o. -Continue TPN for nutrition support -Continue antibiotics -Encourage incentive spirometer use -Continue pain management -DVT prophylaxis subcu heparin GI prophylaxis Protonix Physician Tool Marker note has been reviewed by physician. Signing provider agrees with the documented findings, assessment, and plan of care. Attestation Patient seen and examined at bedside. She is postoperative day #7, diagnostic laparoscopic abdominal washout and ileocecectomy with drain placement. OSCAR with serous output. Patient had large amount of emesis today and since then has felt better. She denies any flatus or bowel function as of yet. Abdominal x-ray was performed yesterday and this was reviewed with finding of air within the colon and concern for ileus versus partial small bowel obstruction. Secondary to no bowel function since surgery, we will plan for CT of the abdomen pelvis with oral contrast for further evaluation. Patient is agreeable with this and I did also discuss nasogastric tube decompression, however patient wants to have CT performed first. Marga Samuel, Objective - Vital Signs Vital signs: Vital Signs Temp 98.6 F 06/18/24 12:45 Pulse 76 06/18/24 12:45 Resp 17 06/18/24 12:45 BP 106/68 06/18/24 12:45 Pulse Ox 93 L 06/18/24 12:45 FiO2 Intake & Output 06/17/24 06/18/24 06/18/24 18:59 06:59 18:59 Output Total 40 150 Balance -40 -150 Weight 90.718 kg Output: Drainage 40 150 Left Lower Abdomen 40 150 Other: Voiding Method Toilet Toilet # Voids 3 2 - Labs CBC & Chem 7: 06/17/24 05:34 06/18/24 05:01 Labs: Abnormal Lab Results - Last 24 Hours (Table) 06/17/24 06/17/24 06/18/24 Range/Units 16:30 20:28 05:01 Glucose 152 H (74-99) mg/dL POC Glucose (mg/dL) 141 H 133 H (70-110) mg/dL 06/18/24 06/18/24 Range/Units 05:44 11:40 Glucose (74-99) mg/dL POC Glucose (mg/dL) 133 H 127 H (70-110) mg/dL
--- NOTE | 2024-06-18 13:13 | P.PN ---
Subjective Progress Note Date: 06/18/24 Patient is a 53-year-old female with diabetes, hypertension, COPD, CABG with multiple stents most recently in November 2018 maintained on aspirin and Plavix presents with complaints of worsening abdominal pain. She was discharged from the hospital 2 days ago on Ceftin and Flagyl for colitis. During that hospital course her CT abdomen/pelvis revealed right-sided colitis she was started on IV Flagyl and ciprofloxacin and her WBCs trended down (11.5 to 8.21 on discharge). She endorsed improved pain throughout her stay and on the day of discharge she was asking to go home after she successfully ate lunch. During her stay her C. difficile PCR was negative. Endorses one episode of bloody emesis yesterday, and approximately 6 other episodes of non-bloody emesis since discharge but has had no vomiting since admission last night. Endorses compliance with medications since discharge. States pain is 6/10 right now but was 100/10 just before coming to ED. Denies current chest pain, shortness of breath, nausea, vomiting, hematochezia. Endorses right lower quadrant pain. CT abdomen/pelvis revealed inflammatory changes involving the cecum with adjacent 2.3 cm intramural wall abscess and reactive small bowel ileus. WBCs 12.3, hemoglobin 13.4, platelets 580. Urinalysis unremarkable. Afebrile, tachycardic since improved, hypertensive with systolic [id number]. 06/07. Patient seen and examined at bedside. She states that the pain is improved. Surgery consultedno intervention at this time. Endorses mild diarrhea starting. WBC 7.62. 06/08. Patient seen and examined lying comfortably on bed. She states the pain is significantly improved. Lab results pending. 06/09. Patient is evaluated in follow up today. She is resting in bed she is holding her abdomen and reporting pain to the RLQ. She is requesting IV pain medication. Noted that follow up abdominal pelvis CT done today reveals similar findings with abnormally thickened wall of the colon adjacent to the ileocecal valve region. Similar surrounding mild inflammatory fat stranding consider focal colitis. Suspected intramural abscess here is smaller at 1.8 cm vs. 2.5 cm previously. Normal appendix. New prominent fluid within the stomach. Fluid- filled small bowel loops are more numerous now. Consider worsening ileus. Trace pelvic free fluid redemonstrated. No free air. Potassium 5.3. today. 06/10. Patient seen and examined at bedside. Patient still with significant amount of pain on the right side of the abdomen as well as epigastric area. She is NPO. She endorses nausea. She denies fever, chest pain, shortness of breath. Infectious disease consulted. Labs unremarkable. 06/11. Patient seen and examined. Continues to complain of abdominal pain. Denies any nausea or vomiting, passing gas. 06/12. Patient seen and examined at bedside lying comfortably. Continues to complain of abdominal pain. Excited but nervous for surgery. Denies any nausea, vomiting, fever, chills. Endorses passing gas and 3 episodes of diarrhea today. Patient going to the operating room today. Midline was placed this morning. 06/13. Patient seen lying in bed. She is postop day 1 status post diagnostic laparoscopic abdominal washout converted to open with ileocecectomy with drain placement. She is complaining of abdominal pain and a lot of pressure in epigastric region. She has not passed flatus. 06/14. Patient seen and examined laying in bed. She is postop day 2 status post diagnostic laparoscopic abdominal washout converted to open with ileocecectomy with drain placement. She endorses improved abdominal pain with pressure in the epigastric region. She has not passed flatus. OSCAR drain is serosanguineous fluid. Potassium 2.9. TPN has been started. 06/15. Patient seen laying in bed. She is postop day 3 status post diagnostic laparoscopic abdominal washout converted to open with ileocecectomy with drain placement. She endorses improved abdominal pain and increased ambulation. She has not passed flatus. She is ambulating well around the unit. OSCAR drain is serosanguineous fluid. Potassium is 3.2. Endorses nausea and relief with Zofran. 06/16. Patient seen and examined. Currently on TPN, states she feels better. Denies any nausea or vomiting, complaining of on and off abdominal pain. 06/17. Patient seen laying in bed. Postop day 5. Endorses epigastric abdominal pain. Ambulating well around the unit. Not passing flatus. 06/18. Patient seen and examined. Patient had 1 episode of emesis this morning, states she feels much better after that. Patient not passing gas. No bowel movement yet. ROS reviewed. Pertinent positives and negatives discussed above, a complete review of systems was performed and all the other systems were negative. Physical examination: Vital signs are stable. General: No acute distress. AOx4. HEENT: Head exam is unremarkable. EOMI bilaterally. ACs patent. Nares patent. Lungs: Bilateral breath sounds present; no rhonchi, wheezes, or rales. Heart: Rate and rhythm are regular. S1-S2 present. No murmur/rub/gallops. Abdomen: Diffuse tenderness; surgical incision seen Extremities: No edema present. Symmetric movement. Psych: Normal affect and mood. Cooperative. Assessment/Plan: Intramural wall abscess Right sided colitis status post diagnostic laparoscopic abdominal washout converted to open with ileocecectomy with drain placement Continue IV Zosyn with possible outpatient IV antibiotics per infectious disease Continue TPN Surgery following Hypokalemia Monitor BMP Diabetes mellitus type 2 Insulin sliding scale Hypertension Continue Norvasc Hyperlipidemia Continue Lipitor COPD Continue Ventolin as needed Continue Symbicort Continue DuoNeb History of CABG and stents Continue aspirin Anxiety Continue Xanax as needed Objective - Vital Signs Vital signs: Vital Signs Temp 98.6 F 06/18/24 12:45 Pulse 76 06/18/24 12:45 Resp 17 06/18/24 12:45 BP 106/68 06/18/24 12:45 Pulse Ox 93 L 06/18/24 12:45 FiO2 Intake & Output 06/17/24 06/18/24 06/18/24 18:59 06:59 18:59 Output Total 40 150 Balance -40 -150 Weight 90.718 kg Output: Drainage 40 150 Left Lower Abdomen 40 150 Other: Voiding Method Toilet Toilet # Voids 3 2 - Labs CBC & Chem 7: 06/17/24 05:34 06/18/24 05:01 Labs: Abnormal Lab Results - Last 24 Hours (Table) 06/17/24 06/17/24 06/18/24 Range/Units 16:30 20:28 05:01 Glucose 152 H (74-99) mg/dL POC Glucose (mg/dL) 141 H 133 H (70-110) mg/dL 06/18/24 06/18/24 Range/Units 05:44 11:40 Glucose (74-99) mg/dL POC Glucose (mg/dL) 133 H 127 H (70-110) mg/dL
[2024-06-18] MEDS: IOPAMIDOL CONTRAST (ORAL USE) VIAL PO PRN (13:58)
--- NOTE | 2024-06-18 16:06 | CT ---
EXAMINATION TYPE: CT abdomen pelvis w con DATE OF EXAM: 06/18/2024 COMPARISON: 06/09/2024 HISTORY: Abdominal pain, distention. CT DLP: 1344.9 mGycm CONTRAST: CT scan of the abdomen and pelvis is performed with Oral Contrast and with IV Contrast, patient injec charity with 100 ml mL of Isovue 300. FINDINGS: LUNG BASES-: No visible nodule. No infiltrate. Linear basilar atelectasis. LIVER/GB: No calcified gallstones. No space occupying hepatic lesion. Biliary tree is of normal ca liber. PANCREAS: No inflammation. No distinct mass. SPLEEN: No splenic enlargement. No lesion seen. ADRENALS: No nodule. No thickening. KIDNEYS/BLADDER: No hydronephrosis. No nephrolithiasis. No distinct renal mass. Urinary bladder g rossly unremarkable. Air within the urinary bladder likely related to prior Weeks catheter placement. BOWEL: Interval placement of an intra-abdominal catheter with a small amount of air within the left-s ided anterior abdominal wall musculature. There is dilatation of small bowel noted with air-fluid lev el seen measuring up to 4 cm. surgical sutures noted about the right cecal region. No transition zone identified. Findings likely on the basis of postoperative ileus. Correlate clinically and progress s tudies recommended. No evidence of pneumoperitoneum. GENITAL ORGANS: No gross abnormality. LYMPH NODES: No greater than 1cm abdominal or pelvic lymph nodes are appreciated. AORTA: No significant abnormality. OSSEOUS STRUCTURES: No significant abnormality is seen. OTHER: No significant additional abnormality is seen. IMPRESSION: 1. Probable postoperative ileus. Correlate clinically. [facility], , 06/18/2024 4:04 PM
[2024-06-18 16:43] LABS: Glucose,Whole Blood 138 mg/dL (70-110)
[2024-06-18 20:37] LABS: Glucose,Whole Blood 160 mg/dL (70-110)
[2024-06-19 03:33] LABS: African American GFR (CKD) >90 (>60 ml/min/1.73 sqM); Anion Gap 4 mmol/L; Blood Urea Nitrogen 17 mg/dL (7-17); Calcium 8.9 mg/dL (8.4-10.2); Carbon Dioxide 29 mmol/L (22-30); Chloride 107 mmol/L (98-107); Glucose 134 mg/dL (74-99); Non-African American GFR(CKD) >90 (>60 ml/min/1.73 sqM); Phosphorus 3.8 mg/dL (2.5-4.5); Potassium 3.7 mmol/L (3.5-5.1); Sodium 140 mmol/L (137-145)
--- NOTE | 2024-06-19 04:00 | XR ---
EXAM: XR Chest, 1 View CLINICAL HISTORY: XR Reason: NG tube placement verification TECHNIQUE: Frontal view of the chest. COMPARISON: May 20, 2024 FINDINGS: Lungs: Lung volumes are lower than previous with small amount of atelectasis in the right lower lung which is new. Pleural space: Unremarkable. No pneumothorax. Heart: See below. Mediastinum: Unremarkable. Normal mediastinal contour. Bones/joints: There are multiple sternal wires. The cardiac silhouette is borderline enlarged. Mild osteophytosis in the lower thoracic spine. No acute fracture. Tubes, lines and devices: There is an NG tube extending into the stomach. The stomach is nondistended. There is a right-sided PICC line in place with the tip in the superior vena cava. IMPRESSION: 1. There is an NG tube extending into the stomach. The stomach is nondistended. 2. There are multiple sternal wires. The cardiac silhouette is borderline enlarged. 3. There is a right-sided PICC line in place with the tip in the superior vena cava. 4. Lung volumes are lower than previous with small amount of atelectasis in the right lower lung which is new.
[2024-06-19 05:51] LABS: Glucose,Whole Blood 169 mg/dL (70-110)
--- NOTE | 2024-06-19 08:08 | XR ---
EXAMINATION TYPE: XR abdomen 2V DATE OF EXAM: 06/19/2024 COMPARISON: 06/17/2024 INDICATION: Contrast TECHNIQUE: Abdomen is examined in supine and upright view FINDINGS: Nasogastric tube is present with tip in the midline. There are multiple prominent air-filled loops of colon. Dilated small bowel left midabdomen. There ap pear to be air-fluid levels with contrast the left lateral midabdomen. Partial small bowel obstructio n should be considered. Ileus is also within the differential. Psoas margins are normal. No organomegaly is present. Surgical skin enrike are in the midline. Drainage catheter is present in the pelvis. IMPRESSION: 1. Dilated small bowel loops with contrast within the left midabdomen bowel. Ileus versus small bowel obstruction [facility], , 06/19/2024 8:06 AM
--- NOTE | 2024-06-19 09:10 | P.PN ---
Subjective Progress Note Date: 06/17/24 Principal diagnosis: Reason for follow-up is colitis/intra-abdominal abscess Patient is a 53-year-old female who recently did have multiple admission to the hospital regarding right sided abdominal pain has been diagnosed with colitis with intramural abscess failing outpatient oral antibiotic therapy. Patient is status post diagnostic laparoscopic abdominal washout converted to open laparotomy with loop cecectomy and drain placement On today's evaluation that is 06/17/2024, Patient is afebrile this morning patient denies having any chest pain shortness of breath or cough, the patient is breathing comfortably on room air, patient still complaining of abdominal d istention and discomfort did have nausea but no vomiting has not passed any gas or any bowel movement. Patient white count is 8.01, creatinine 0.7 did have abdominal x-ray ileus versus partial small bowel obstruction Objective - Vital Signs Vital signs: Vital Signs Temp 98.4 F 06/17/24 07:30 Pulse 70 06/17/24 07:30 Resp 17 06/17/24 07:30 BP 103/69 06/17/24 07:30 Pulse Ox 92 L 06/17/24 07:30 FiO2 Intake & Output 06/16/24 06/17/24 06/17/24 18:59 06:59 18:59 Output Total 80 140 40 Balance -80 -140 -40 Weight 90.718 kg Output: Drainage 80 140 40 Left Lower Abdomen 80 140 40 Other: Voiding Method Toilet Toilet # Voids 3 5 # Bowel Movements 5 - Exam GENERAL DESCRIPTION: Middle-age female lying in bed in no distress RESPIRATORY SYSTEM: Unlabored breathing , decreased breath sounds at bases HEART: S1 S2 regular rate and rhythm , ABDOMEN: Soft , midline incision is currently intact minimal tenderness EXTREMITIES: No edema feet - Labs CBC & Chem 7: 06/17/24 05:34 06/19/24 02:47 Labs: Abnormal Lab Results - Last 24 Hours (Table) 06/16/24 06/17/24 06/17/24 Range/Units 17:10 05:34 05:34 RBC 4.06 L (4.10-5.20) X 10*6/uL Hgb 11.2 L (12.0-15.0) g/dL Hct 35.9 L (37.2-46.3) % MCHC 31.2 L (32.0-37.0) g/dL RDW 16.7 H (11.5-14.5) % Immature Gran # 0.06 H (0.00-0.04) X 10*3/uL Eosinophils # 0.50 H (0.04-0.35) X 10*3/uL Anion Gap 13.20 H (4.00-12.00) mmol/L Glucose 114 H (70-110) mg/dL POC Glucose (mg/dL) 140 H (70-110) mg/dL Total Protein 5.5 L (6.2-8.2) g/dL Albumin 3.3 L (3.8-4.9) g/dL Albumin/Globulin Ratio 1.50 L (1.60-3.17) Ratio 06/17/24 06/17/24 Range/Units 06:46 11:50 RBC (4.10-5.20) X 10*6/uL Hgb (12.0-15.0) g/dL Hct (37.2-46.3) % MCHC (32.0-37.0) g/dL RDW (11.5-14.5) % Immature Gran # (0.00-0.04) X 10*3/uL Eosinophils # (0.04-0.35) X 10*3/uL Anion Gap (4.00-12.00) mmol/L Glucose (70-110) mg/dL POC Glucose (mg/dL) 123 H 139 H (70-110) mg/dL Total Protein (6.2-8.2) g/dL Albumin (3.8-4.9) g/dL Albumin/Globulin Ratio (1.60-3.17) Ratio Assessment and Plan (1) Colitis with abscess Current Visit: Yes Status: Acute Code(s): K52.9 - NONINFECTIVE GASTROENTERITIS AND COLITIS, UNSPECIFIED; K63.0 - ABSCESS OF INTESTINE SNOMED Code(s): 54323413 Plan: 1patient with a multiple admission to the hospital has been diagnosed with a colitis with intramural abscess that has failed outpatient oral Ceftin and Flagyl therapy with repeat CT did shows persistent features of colitis around the cecum with intramural abscess and slow clinical response to the medical therapy patient is status post laparotomy with ileocecectomy and drain placement unfortunately no cultures were done 2-patient remains to be afebrile white count remains to be normal patient still dealing with an ileus postoperatively and is n.p.o. hence we will continue with Luis Dictation was produced using [employer] software. please excuse any grammatical, word or spelling errors. Time with Patient: Less than 30
--- NOTE | 2024-06-19 09:11 | P.PN ---
Subjective Progress Note Date: 06/18/24 Principal diagnosis: Reason for follow-up is colitis/intra-abdominal abscess Patient is a 53-year-old female who recently did have multiple admission to the hospital regarding right sided abdominal pain has been diagnosed with colitis with intramural abscess failing outpatient oral antibiotic therapy. Patient is status post diagnostic laparoscopic abdominal washout converted to open laparotomy with loop cecectomy and drain placement On today's evaluation that is 06/18/2024,the patient denies any fever or any chills, patient is breathing comfortably on room air, the patient denies chest pain shortness of breath and no significant cough, patient did have an episode of vomiting and mention some relief in abdominal distention and discomfort still has not passed any gas. Patient did have a creatinine 0.69 no CBC was done today Objective - Vital Signs Vital signs: Vital Signs Temp 98.6 F 06/18/24 12:45 Pulse 76 06/18/24 12:45 Resp 17 06/18/24 12:45 BP 106/68 06/18/24 12:45 Pulse Ox 93 L 06/18/24 12:45 FiO2 Intake & Output 06/17/24 06/18/24 06/18/24 18:59 06:59 18:59 Intake Total 1050 Output Total 40 150 10 Balance -40 900 -10 Weight 90.718 kg Intake: Intake, IV Titration 1050 Amount Mvi, Adult No.4 with Vit 1050 K 10 ml Trace (Conc-1Ml/ Dose) 1 ml Sodium Acetate 30 meq Potassium Acetate 20 meq Calcium Gluconate 1 gm Magnesium Sulfate gm 1 gm Potassium Phosphate 6 mmol In Amino Acids 5 %/Dextrose 20 % 1,000 ml @ 87 mls/hr IV . BY DURATION [facility]AN[facility] Rx#: [id number] Output: Drainage 40 150 10 Left Lower Abdomen 40 150 10 Other: Voiding Method Toilet Toilet # Voids 3 2 - Exam GENERAL DESCRIPTION: Middle-age female lying in bed in no distress RESPIRATORY SYSTEM: Unlabored breathing , decreased breath sounds at bases HEART: S1 S2 regular rate and rhythm , ABDOMEN: Soft , midline incision is currently intact minimal tenderness EXTREMITIES: No edema feet - Labs CBC & Chem 7: 06/17/24 05:34 06/19/24 02:47 Labs: Abnormal Lab Results - Last 24 Hours (Table) 06/17/24 06/17/24 06/18/24 Range/Units 16:30 20:28 05:01 Glucose 152 H (74-99) mg/dL POC Glucose (mg/dL) 141 H 133 H (70-110) mg/dL 06/18/24 06/18/24 Range/Units 05:44 11:40 Glucose (74-99) mg/dL POC Glucose (mg/dL) 133 H 127 H (70-110) mg/dL Assessment and Plan (1) Colitis with abscess Current Visit: Yes Status: Acute Code(s): K52.9 - NONINFECTIVE GASTROENTERITIS AND COLITIS, UNSPECIFIED; K63.0 - ABSCESS OF INTESTINE SNOMED Code(s): 45454154 Plan: 1patient with a multiple admission to the hospital has been diagnosed with a colitis with intramural abscess that has failed outpatient oral Ceftin and Flagyl therapy with repeat CT did shows persistent features of colitis around the cecum with intramural abscess and slow clinical response to the medical therapy patient is status post laparotomy with ileocecectomy and drain placement unfortunately no cultures were done 2-patient remains to be afebrile white count remains to be normal patient with an episode of vomiting and persistent abdominal distention will benefit from formal CT abdominal pelvis which has been ordered by surgery results will be followed continue with Luis Dictation was produced using [employer] dictation software. please excuse any gram matical, word or spelling errors. Time with Patient: Less than 30
[2024-06-19 11:36] LABS: Glucose,Whole Blood 131 mg/dL (70-110)
--- NOTE | 2024-06-19 12:26 | P.PN ---
Subjective Progress Note Date: 06/19/24 Patient seen and examined at bedside. Overnight, patient became more distended and secondary to CT abdomen and pelvis finding of ileus, nasogastric tube was placed. Patient had output of about 300 cc of bilious material. She states she does feel slightly less distended. She is complaining of throat soreness after nasogastric tube placement. Objective - Vital Signs Vital signs: Vital Signs Temp 98.1 F 06/19/24 07:13 Pulse 76 06/19/24 07:13 Resp 18 06/19/24 07:13 BP 103/64 06/19/24 07:13 Pulse Ox 93 L 06/19/24 07:13 FiO2 Intake & Output 06/18/24 06/19/24 06/19/24 18:59 06:59 18:59 Intake Total 1050 Output Total 70 60 Balance -70 990 Intake: Intake, IV Titration 1050 Amount Mvi, Adult No.4 with Vit 1050 K 10 ml Trace (Conc-1Ml/ Dose) 1 ml Sodium Acetate 30 meq Potassium Acetate 20 meq Calcium Gluconate 1 gm Magnesium Sulfate gm 1 gm Potassium Phosphate 6 mmol In Amino Acids 5 %/Dextrose 20 % 1,000 ml @ 87 mls/hr IV . BY DURATION [facility] Rx#: [id number] Output: Drainage 70 60 Left Lower Abdomen 70 60 Other: Voiding Method Toilet Toilet # Voids 4 3 1 - Constitutional General appearance: Present: cooperative - Gastrointestinal Gastrointestinal Comment(s): Soft, mildly distended, nontender, no rebound, no guarding, incision site clean, dry and intact - Labs CBC & Chem 7: 06/17/24 05:34 06/19/24 02:47 Labs: Abnormal Lab Results - Last 24 Hours (Table) 06/18/24 06/18/24 06/19/24 Range/Units 16:42 20:36 02:47 Glucose 134 H (74-99) mg/dL POC Glucose (mg/dL) 138 H 160 H (70-110) mg/dL 06/19/24 06/19/24 Range/Units 05:47 11:34 Glucose (74-99) mg/dL POC Glucose (mg/dL) 169 H 131 H (70-110) mg/dL Assessment and Plan Plan: Status post ileocecectomy. No bowel function as of yet with finding of ileus on imaging. Nasogastric tube was placed yesterday. Will continue with decompression. Patient may require small bowel follow-through should her ileus continue. She is not TPN for nutrition at this time. Recommended increasing activity.
[2024-06-19] MEDS ORDERED: BENZOCAINE SPRAY 1 EACH MM SCH (12:45)
--- NOTE | 2024-06-19 13:49 | P.PN ---
Subjective Progress Note Date: 06/19/24 Patient is a 53-year-old female with diabetes, hypertension, COPD, CABG with multiple stents most recently in November 2018 maintained on aspirin and Plavix presents with complaints of worsening abdominal pain. She was discharged from the hospital 2 days ago on Ceftin and Flagyl for colitis. During that hospital course her CT abdomen/pelvis revealed right-sided colitis she was started on IV Flagyl and ciprofloxacin and her WBCs trended down (11.5 to 8.21 on discharge). She endorsed improved pain throughout her stay and on the day of discharge she was asking to go home after she successfully ate lunch. During her stay her C. difficile PCR was negative. Endorses one episode of bloody emesis yesterday, and approximately 6 other episodes of non-bloody emesis since discharge but has had no vomiting since admission last night. Endorses compliance with medications since discharge. States pain is 6/10 right now but was 100/10 just before coming to ED. Denies current chest pain, shortness of breath, nausea, vomiting, hematochezia. Endorses right lower quadrant pain. CT abdomen/pelvis revealed inflammatory changes involving the cecum with adjacent 2.3 cm intramural wall abscess and reactive small bowel ileus. WBCs 12.3, hemoglobin 13.4, platelets 580. Urinalysis unremarkable. Afebrile, tachycardic since improved, hypertensive with systolic 473m124h. 06/07. Patient seen and examined at bedside. She states that the pain is improved. Surgery consultedno intervention at this time. Endorses mild diarrhea starting. WBC 7.62. 06/08. Patient seen and examined lying comfortably on bed. She states the pain is significantly improved. Lab results pending. 06/09. Patient is evaluated in follow up today. She is resting in bed she is holding her abdomen and reporting pain to the RLQ. She is requesting IV pain medication. Noted that follow up abdominal pelvis CT done today reveals similar findings with abnormally thickened wall of the colon adjacent to the ileocecal valve region. Similar surrounding mild inflammatory fat stranding consider focal colitis. Suspected intramural abscess here is smaller at 1.8 cm vs. 2.5 cm previously. Normal appendix. New prominent fluid within the stomach. Fluid- filled small bowel loops are more numerous now. Consider worsening ileus. Trace pelvic free fluid redemonstrated. No free air. Potassium 5.3. today. 06/10. Patient seen and examined at bedside. Patient still with significant amount of pain on the right side of the abdomen as well as epigastric area. She is NPO. She endorses nausea. She denies fever, chest pain, shortness of breath. Infectious disease consulted. Labs unremarkable. 06/11. Patient seen and examined. Continues to complain of abdominal pain. Denies any nausea or vomiting, passing gas. 06/12. Patient seen and examined at bedside lying comfortably. Continues to complain of abdominal pain. Excited but nervous for surgery. Denies any nausea, vomiting, fever, chills. Endorses passing gas and 3 episodes of diarrhea today. Patient going to the operating room today. Midline was placed this morning. 06/13. Patient seen lying in bed. She is postop day 1 status post diagnostic laparoscopic abdominal washout converted to open with ileocecectomy with drain placement. She is complaining of abdominal pain and a lot of pressure in epigastric region. She has not passed flatus. 06/14. Patient seen and examined laying in bed. She is postop day 2 status post diagnostic laparoscopic abdominal washout converted to open with ileocecectomy with drain placement. She endorses improved abdominal pain with pressure in the epigastric region. She has not passed flatus. OSCAR drain is serosanguineous fluid. Potassium 2.9. TPN has been started. 06/15. Patient seen laying in bed. She is postop day 3 status post diagnostic laparoscopic abdominal washout converted to open with ileocecectomy with drain placement. She endorses improved abdominal pain and increased ambulation. She has not passed flatus. She is ambulating well around the unit. OSCAR drain is serosanguineous fluid. Potassium is 3.2. Endorses nausea and relief with Zofran. 06/16. Patient seen and examined. Currently on TPN, states she feels better. Denies any nausea or vomiting, complaining of on and off abdominal pain. 06/17. Patient seen laying in bed. Postop day 5. Endorses epigastric abdominal pain. Ambulating well around the unit. Not passing flatus. 06/18. Patient seen and examined. Patient had 1 episode of emesis this morning, states she feels much better after that. Patient not passing gas. No bowel movement yet. 06/19. Patient seen and examined at bedside. No flatus, no bowel movement. Had an NG tube placed overnight. ROS reviewed. Pertinent positives and negatives discussed above, a complete review of systems was performed and all the other systems were negative. Physical examination: Vital signs are stable. General: No acute distress. AOx4. Currently with an NG tube. HEENT: Head exam is unremarkable. EOMI bilaterally. ACs patent. Nares patent. Lungs: Bilateral breath sounds present; no rhonchi, wheezes, or rales. Heart: Rate and rhythm are regular. S1-S2 present. No murmur/rub/gallops. Abdomen: Diffuse tenderness; soft, mildly distended. Bowel sounds present. Extremities: Trace edema present. Symmetric movement. Psych: Normal affect and mood. Cooperative. Assessment/Plan: Intramural wall abscess Right sided colitis Postop day 7 status post diagnostic laparoscopic abdominal washout converted to open with ileocecectomy with drain placement Continue IV Zosyn with possible outpatient IV antibiotics per infectious disease Continue TPN Surgery following Abdomen xray due to continued abdominal pain Hypokalemia Monitor BMP Diabetes mellitus type 2 Insulin sliding scale Hypertension Continue Norvasc Hyperlipidemia Continue Lipitor COPD Continue Ventolin as needed Continue Symbicort Continue DuoNeb History of CABG and stents Continue aspirin Anxiety Continue Xanax as needed DVT prophylaxis: Subcutaneous heparin GI prophylaxis: Protonix Objective - Vital Signs Vital signs: Vital Signs Temp 98.2 F 06/19/24 00:25 Pulse 76 06/19/24 00:25 Resp 18 06/19/24 00:25 BP 145/70 06/19/24 00:25 Pulse Ox 94 L 06/19/24 00:25 FiO2 Intake & Output 06/18/24 06/19/24 06/19/24 18:59 06:59 18:59 Intake Total 1050 Output Total 70 60 Balance -70 990 Intake: Intake, IV Titration 1050 Amount Mvi, Adult No.4 with Vit 1050 K 10 ml Trace (Conc-1Ml/ Dose) 1 ml Sodium Acetate 30 meq Potassium Acetate 20 meq Calcium Gluconate 1 gm Magnesium Sulfate gm 1 gm Potassium Phosphate 6 mmol In Amino Acids 5 %/Dextrose 20 % 1,000 ml @ 87 mls/hr IV . BY DURATION [facility]ANDA Rx#: [id number] Output: Drainage 70 60 Left Lower Abdomen 70 60 Other: Voiding Method Toilet # Voids 4 3 - Labs CBC & Chem 7: 06/17/24 05:34 06/19/24 02:47 Labs: Abnormal Lab Results - Last 24 Hours (Table) 06/18/24 06/18/24 06/18/24 Range/Units 11:40 16:42 20:36 Glucose (74-99) mg/dL POC Glucose (mg/dL) 127 H 138 H 160 H (70-110) mg/dL 06/19/24 06/19/24 Range/Units 02:47 05:47 Glucose 134 H (74-99) mg/dL POC Glucose (mg/dL) 169 H (70-110) mg/dL
[2024-06-19] MEDS: 1: MVI, ADULT NO.4 WITH VIT K 10 ML, TRACE (CONC-1ML/DOSE) 1 ML, SODIUM ACETATE 30 MEQ, IV SCH (15:00)
[2024-06-19] MEDS: BENZOCAINE SPRAY 1 CAN MUCOUS MEM SCH (15:01)
[2024-06-19 16:53] LABS: Glucose,Whole Blood 161 mg/dL (70-110)
[2024-06-19 20:31] LABS: Glucose,Whole Blood 138 mg/dL (70-110)
[2024-06-20] MEDS: HYDROmorphone 1 MG/ML 1 ML SYRINGE IVP PRN (02:57)
[2024-06-20 04:10] LABS: African American GFR (CKD) >90 (>60 ml/min/1.73 sqM); Anion Gap 4 mmol/L; Blood Urea Nitrogen 19 mg/dL (7-17); Calcium 9.1 mg/dL (8.4-10.2); Carbon Dioxide 25 mmol/L (22-30); Chloride 108 mmol/L (98-107); Glucose 202 mg/dL (74-99); Magnesium 2.1 mg/dL (1.6-2.3); Non-African American GFR(CKD) >90 (>60 ml/min/1.73 sqM); Phosphorus 3.9 mg/dL (2.5-4.5); Potassium 3.6 mmol/L (3.5-5.1); Sodium 137 mmol/L (137-145)
[2024-06-20 06:03] LABS: Glucose,Whole Blood 212 mg/dL (70-110)
[2024-06-20 06:09] LABS: Anisocytosis Slight; Basophils % (A) 0 %; Eosinophils # (A) 0.7 k/uL (0-0.7); Eosinophils % (A) 7 %; HGB 11.8 gm/dL (11.4-16.0); Hypochromasia Slight; Lymphocytes % (A) 19 %; MCH 27.5 pg (25.0-35.0); MCHC 31.8 g/dL (31.0-37.0); MCV 86.6 fL (80.0-100.0); Mean Platelet Volume 9.9; Monocytes # (A) 0.7 k/uL (0-1.0); Monocytes % (A) 7 %; Neutrophils # (A) 6.5 k/uL (1.3-7.7); Neutrophils % (A) 65 %; Platelet Count 372 k/uL (150-450); RBC 4.27 m/uL (3.80-5.40); RDW 16.1 % (11.5-15.5)
[2024-06-20 06:20] LABS: ALT 11 U/L (4-34); AST 20 U/L (14-36); African American GFR (CKD) >90 (>60 ml/min/1.73 sqM); Albumin 3.2 g/dL (3.5-5.0); Albumin/Globulin Ratio 1.3; Alkaline Phosphatase 96 U/L (38-126); Anion Gap 6 mmol/L; Blood Urea Nitrogen 19 mg/dL (7-17); Calcium 9.1 mg/dL (8.4-10.2); Carbon Dioxide 23 mmol/L (22-30); Chloride 107 mmol/L (98-107); Globulin 2.5 g/dL; Glucose 203 mg/dL (74-99); Non-African American GFR(CKD) >90 (>60 ml/min/1.73 sqM); Potassium 3.5 mmol/L (3.5-5.1); Sodium 136 mmol/L (137-145); Total Bilirubin 0.5 mg/dL (0.2-1.3); Total Protein 5.7 g/dL (6.3-8.2)
[2024-06-20 11:16] LABS: Glucose,Whole Blood 149 mg/dL (70-110)
[2024-06-20] MEDS: POTASSIUM CHLORIDE ER 20 MEQ TAB.ER PO SCH (12:23)
--- NOTE | 2024-06-20 13:14 | P.PN ---
Subjective Progress Note Date: 06/20/24 CHIEF COMPLAINT: Diverticulitis with abscess HISTORY OF PRESENT ILLNESS: Patient is postop day #9 status post diagnostic laparoscopic abdominal washout converted to open with ileocecectomy with drain placement. Patient did have vomiting past NG tube yesterday. She still feels distended. She had 900 mL bilious output through the NG tube yesterday and 300 this morning. She is having flatus and diarrhea. She feels a little better than yesterday. OSCAR drain with 30 mL cloudy serous output. PHYSICAL EXAM: VITAL SIGNS: Reviewed. GENERAL: no acute distress. ABDOMEN: Abdomen is softer. Distended. Tenderness at incision sites. Incision dressing clean dry and intact. OSCAR drain cloudy serous fluid NEUROLOGIC: Alert and oriented. Cranial nerves II through XII grossly intact. ASSESSMENT: 1. Colitis with intramural wall abscess 2. Postoperative ileus can be an expected finding 3. Moderate protein calorie malnutrition PLAN: -Continue NG tube for decompression -Keep patient n.p.o. -Continue TPN for nutrition support -Encourage patient to ambulate -Continue antibiotics -Encourage incentive spirometer use -Continue pain management -DVT prophylaxis subcu heparin GI prophylaxis Protonix Physician Big Data H[employer] Developer note has been reviewed by physician. Signing provider agrees with the documented findings, assessment, and plan of care. Objective - Vital Signs Vital signs: Vital Signs Temp 98.0 F 06/20/24 06:53 Pulse 88 06/20/24 06:53 Resp 18 06/20/24 09:25 BP 132/77 06/20/24 06:53 Pulse Ox 90 L 06/20/24 06:53 FiO2 Intake & Output 06/19/24 06/20/24 06/20/24 18:59 06:59 18:59 Intake Total 1041 Output Total 900 340 90 Balance -900 701 -90 Weight 90.718 kg Intake: Intake, IV Titration 1041 Amount Mvi, Adult No.4 with Vit 1041 K 10 ml Trace (Conc-1Ml/ Dose) 1 ml Sodium Acetate 30 meq Potassium Acetate 20 meq Calcium Gluconate 1 gm Magnesium Sulfate gm 1 gm Potassium Phosphate 9 mmol In Amino Acids 5 %/Dextrose 20 % 1,000 ml @ 87 mls/hr IV . BY DURATION AMANDA Rx#: [id number] Output: Gastric Drainage 900 Drainage 40 90 Left Lower Abdomen 40 90 Emesis 300 Other: Voiding Method Toilet Toilet # Voids 1 3 - Labs CBC & Chem 7: 06/20/24 03:29 06/20/24 03:29 Labs: Abnormal Lab Results - Last 24 Hours (Table) 06/19/24 06/19/24 06/20/24 Range/Units 16:51 20:28 03:29 RDW (11.5-15.5) % Sodium (137-145) mmol/L Chloride 108 H (98-107) mmol/L BUN 19 H (7-17) mg/dL Glucose 202 H (74-99) mg/dL POC Glucose (mg/dL) 161 H 138 H (70-110) mg/dL Total Protein (6.3-8.2) g/dL Albumin (3.5-5.0) g/dL 06/20/24 06/20/24 06/20/24 Range/Units 03:29 03:29 06:01 RDW 16.1 H (11.5-15.5) % Sodium 136 L (137-145) mmol/L Chloride (98-107) mmol/L BUN 19 H (7-17) mg/dL Glucose 203 H (74-99) mg/dL POC Glucose (mg/dL) 212 H (70-110) mg/dL Total Protein 5.7 L (6.3-8.2) g/dL Albumin 3.2 L (3.5-5.0) g/dL 06/20/24 Range/Units 11:15 RDW (11.5-15.5) % Sodium (137-145) mmol/L Chloride (98-107) mmol/L BUN (7-17) mg/dL Glucose (74-99) mg/dL POC Glucose (mg/dL) 149 H (70-110) mg/dL Total Protein (6.3-8.2) g/dL Albumin (3.5-5.0) g/dL
--- NOTE | 2024-06-20 13:54 | P.PN ---
Subjective Progress Note Date: 06/19/24 Principal diagnosis: Reason for follow-up is colitis/intra-abdominal abscess Patient is a 53-year-old female who recently did have multiple admission to the hospital regarding right sided abdominal pain has been diagnosed with colitis with intramural abscess failing outpatient oral antibiotic therapy. Patient is status post diagnostic laparoscopic abdominal washout converted to open laparotomy with loop cecectomy and drain placement On today's evaluation that is 06/19/2024,the patient remains to be afebrile, patient is on room air not requiring supplemental oxygen and denies any shortness of breath no chest pain or cough.Patient did have some nausea but no vomiting still have some abdominal discomfort still has not passed any gas or bowel movement. Patient did have a creatinine 0.6 electrolyte has been normal Objective - Vital Signs Vital signs: Vital Signs Temp 98.1 F 06/19/24 07:13 Pulse 76 06/19/24 07:13 Resp 18 06/19/24 07:13 BP 103/64 06/19/24 07:13 Pulse Ox 93 L 06/19/24 07:13 FiO2 Intake & Output 06/18/24 06/19/24 06/19/24 18:59 06:59 18:59 Intake Total 1050 Output Total 70 60 Balance -70 990 Intake: Intake, IV Titration 1050 Amount Mvi, Adult No.4 with Vit 1050 K 10 ml Trace (Conc-1Ml/ Dose) 1 ml Sodium Acetate 30 meq Potassium Acetate 20 meq Calcium Gluconate 1 gm Magnesium Sulfate gm 1 gm Potassium Phosphate 6 mmol In Amino Acids 5 %/Dextrose 20 % 1,000 ml @ 87 mls/hr IV . BY DURATION [facility] Rx#: [id number] Output: Drainage 70 60 Left Lower Abdomen 70 60 Other: Voiding Method Toilet Toilet # Voids 4 3 1 - Exam GENERAL DESCRIPTION: Middle-age female lying in bed in no distress RESPIRATORY SYSTEM: Unlabored breathing , decreased breath sounds at bases HEART: S1 S2 regular rate and rhythm , ABDOMEN: Soft , midline incision is currently intact minimal tenderness EXTREMITIES: No edema feet - Labs CBC & Chem 7: 06/20/24 03:29 06/20/24 03:29 Labs: Abnormal Lab Results - Last 24 Hours (Table) 06/18/24 06/18/24 06/19/24 Range/Units 16:42 20:36 02:47 Glucose 134 H (74-99) mg/dL POC Glucose (mg/dL) 138 H 160 H (70-110) mg/dL 06/19/24 06/19/24 Range/Units 05:47 11:34 Glucose (74-99) mg/dL POC Glucose (mg/dL) 169 H 131 H (70-110) mg/dL Assessment and Plan (1) Colitis with abscess Current Visit: Yes Status: Acute Code(s): K52.9 - NONINFECTIVE GASTROENTERITIS AND COLITIS, UNSPECIFIED; K63.0 - ABSCESS OF INTESTINE SNOMED Code(s): 43866652 Plan: 1patient with a multiple admission to the hospital has been diagnosed with a colitis with intramural abscess that has failed outpatient oral Ceftin and Flagyl therapy with repeat CT did shows persistent features of colitis around the cecum with intramural abscess and slow clinical response to the medical ther apy patient is status post laparotomy with ileocecectomy and drain placement unfortunately no cultures were done 2-patient remains to be afebrile, patient with an episode of vomiting and persistent abdominal distention did have a CT with evidence of ileus did not mention any perforation or colitis we will continue patient on Zosyn Dictation was produced using [employer] dictation software. please excuse any grammatical, word or spelling errors. Time with Patient: Less than 30
--- NOTE | 2024-06-20 13:55 | P.PN ---
Subjective Progress Note Date: 06/20/24 Principal diagnosis: Reason for follow-up is colitis/intra-abdominal abscess Patient is a 53-year-old female who recently did have multiple admission to the hospital regarding right sided abdominal pain has been diagnosed with colitis with intramural abscess failing outpatient oral antibiotic therapy. Patient is status post diagnostic laparoscopic abdominal washout converted to open laparotomy with loop cecectomy and drain placement On today's evaluation that is 06/20/2024, the patient continues to be afebrile, the patient is on room air and breathing comfortably, the Pt denies having any chest pain or cough, the patient still have the NG no nausea or vomiting abdominal discomfort slightly decreased did have small amount of gas and liquid stool. Patient white count is 10.0 creatinine 0.58 Objective - Vital Signs Vital signs: Vital Signs Temp 98.0 F 06/20/24 06:53 Pulse 88 06/20/24 06:53 Resp 18 06/20/24 09:25 BP 132/77 06/20/24 06:53 Pulse Ox 90 L 06/20/24 06:53 FiO2 Intake & Output 06/19/24 06/20/24 06/20/24 18:59 06:59 18:59 Intake Total 1041 Output Total 900 340 90 Balance -900 701 -90 Weight 90.718 kg Intake: Intake, IV Titration 1041 Amount Mvi, Adult No.4 with Vit 1041 K 10 ml Trace (Conc-1Ml/ Dose) 1 ml Sodium Acetate 30 meq Potassium Acetate 20 meq Calcium Gluconate 1 gm Magnesium Sulfate gm 1 gm Potassium Phosphate 9 mmol In Amino Acids 5 %/Dextrose 20 % 1,000 ml @ 87 mls/hr IV . BY DURATION [facility] Rx#: [id number] Output: Gastric Drainage 900 Drainage 40 90 Left Lower Abdomen 40 90 Emesis 300 Other: Voiding Method Toilet Toilet # Voids 1 3 - Exam GENERAL DESCRIPTION: Middle-age female lying in bed in no distress RESPIRATORY SYSTEM: Unlabored breathing , decreased breath sounds at bases HEART: S1 S2 regular rate and rhythm , ABDOMEN: Soft , midline incision is currently intact minimal tenderness EXTREMITIES: No edema feet - Labs CBC & Chem 7: 06/20/24 03:29 06/20/24 03:29 Labs: Abnormal Lab Results - Last 24 Hours (Table) 06/19/24 06/19/24 06/20/24 Range/Units 16:51 20:28 03:29 RDW (11.5-15.5) % Sodium (137-145) mmol/L Chloride 108 H (98-107) mmol/L BUN 19 H (7-17) mg/dL Glucose 202 H (74-99) mg/dL POC Glucose (mg/dL) 161 H 138 H (70-110) mg/dL Total Protein (6.3-8.2) g/dL Albumin (3.5-5.0) g/dL 06/20/24 06/20/24 06/20/24 Range/Units 03:29 03:29 06:01 RDW 16.1 H (11.5-15.5) % Sodium 136 L (137-145) mmol/L Chloride (98-107) mmol/L BUN 19 H (7-17) mg/dL Glucose 203 H (74-99) mg/dL POC Glucose (mg/dL) 212 H (70-110) mg/dL Total Protein 5.7 L (6.3-8.2) g/dL Albumin 3.2 L (3.5-5.0) g/dL 06/20/24 Range/Units 11:15 RDW (11.5-15.5) % Sodium (137-145) mmol/L Chloride (98-107) mmol/L BUN (7-17) mg/dL Glucose (74-99) mg/dL POC Glucose (mg/dL) 149 H (70-110) mg/dL Total Protein (6.3-8.2) g/dL Albumin (3.5-5.0) g/dL Assessment and Plan (1) Colitis with abscess Current Visit: Yes Status: Acute Code(s): K52.9 - NONINFECTIVE GASTROENTERITIS AND COLITIS, UNSPECIFIED; K63.0 - ABSCESS OF INTESTINE SNOMED Code(s): 68477399 Plan: 1patient with a multiple admission to the hospital has been diagnosed with a colitis with intramural abscess that has failed outpatient oral Ceftin and Flagyl therapy with repeat CT did shows persistent features of colitis around the cecum with intramural abscess and slow clinical response to the medical therapy patient is status post laparotomy with ileocecectomy and drain placement unfortunately no cultures were done 2-patient remains to be afebrile, did have normal white count, CT with evidence of ileus did not mention any perforation or colitis 3-we will continue patient on Zosyn and monitor clinical course closely Dictation was produced using [employer] dictation software. please excuse any grammatical, word or spelling errors. Time with Patient: Less than 30
--- NOTE | 2024-06-20 14:21 | P.PN ---
Subjective Progress Note Date: 06/20/24 Patient is a 53-year-old female with diabetes, hypertension, COPD, CABG with multiple stents most recently in November 2018 maintained on aspirin and Plavix presents with complaints of worsening abdominal pain. She was discharged from the hospital 2 days ago on Ceftin and Flagyl for colitis. During that hospital course her CT abdomen/pelvis revealed right-sided colitis she was started on IV Flagyl and ciprofloxacin and her WBCs trended down (11.5 to 8.21 on discharge). She endorsed improved pain throughout her stay and on the day of discharge she was asking to go home after she successfully ate lunch. During her stay her C. difficile PCR was negative. Endorses one episode of bloody emesis yesterday, and approximately 6 other episodes of non-bloody emesis since discharge but has had no vomiting since admission last night. Endorses compliance with medications since discharge. States pain is 6/10 right now but was 100/10 just before coming to ED. Denies current chest pain, shortness of breath, nausea, vomiting, hematochezia. Endorses right lower quadrant pain. CT abdomen/pelvis revealed inflammatory changes involving the cecum with adjacent 2.3 cm intramural wall abscess and reactive small bowel ileus. WBCs 12.3, hemoglobin 13.4, platelets 580. Urinalysis unremarkable. Afebrile, tachycardic since improved, hypertensive with systolic [id number]. 06/07. Patient seen and examined at bedside. She states that the pain is improved. Surgery consultedno intervention at this time. Endorses mild diarrhea starting. WBC 7.62. 06/08. Patient seen and examined lying comfortably on bed. She states the pain is significantly improved. Lab results pending. 06/09. Patient is evaluated in follow up today. She is resting in bed she is holding her abdomen and reporting pain to the RLQ. She is requesting IV pain medication. Noted that follow up abdominal pelvis CT done today reveals similar findings with abnormally thickened wall of the colon adjacent to the ileocecal valve region. Similar surrounding mild inflammatory fat stranding consider focal colitis. Suspected intramural abscess here is smaller at 1.8 cm vs. 2.5 cm previously. Normal appendix. New prominent fluid within the stomach. Fluid- filled small bowel loops are more numerous now. Consider worsening ileus. Trace pelvic free fluid redemonstrated. No free air. Potassium 5.3. today. 06/10. Patient seen and examined at bedside. Patient still with significant amount of pain on the right side of the abdomen as well as epigastric area. She is NPO. She endorses nausea. She denies fever, chest pain, shortness of breath. Infectious disease consulted. Labs unremarkable. 06/11. Patient seen and examined. Continues to complain of abdominal pain. Denies any nausea or vomiting, passing gas. 06/12. Patient seen and examined at bedside lying comfortably. Continues to complain of abdominal pain. Excited but nervous for surgery. Denies any nausea, vomiting, fever, chills. Endorses passing gas and 3 episodes of diarrhea today. Patient going to the operating room today. Midline was placed this morning. 06/13. Patient seen lying in bed. She is postop day 1 status post diagnostic laparoscopic abdominal washout converted to open with ileocecectomy with drain placement. She is complaining of abdominal pain and a lot of pressure in epigastric region. She has not passed flatus. 06/14. Patient seen and examined laying in bed. She is postop day 2 status post diagnostic laparoscopic abdominal washout converted to open with ileocecectomy with drain placement. She endorses improved abdominal pain with pressure in the epigastric region. She has not passed flatus. OSCAR drain is serosanguineous fluid. Potassium 2.9. TPN has been started. 06/15. Patient seen laying in bed. She is postop day 3 status post diagnostic laparoscopic abdominal washout converted to open with ileocecectomy with drain placement. She endorses improved abdominal pain and increased ambulation. She has not passed flatus. She is ambulating well around the unit. OSCAR drain is serosanguineous fluid. Potassium is 3.2. Endorses nausea and relief with Zofran. 06/16. Patient seen and examined. Currently on TPN, states she feels better. Denies any nausea or vomiting, complaining of on and off abdominal pain. 06/17. Patient seen laying in bed. Postop day 5. Endorses epigastric abdominal pain. Ambulating well around the unit. Not passing flatus. 06/18. Patient seen and examined. Patient had 1 episode of emesis this morning, states she feels much better after that. Patient not passing gas. No bowel movement yet. 06/19. Patient seen and examined at bedside. No flatus, no bowel movement. Had an NG tube placed overnight. 06/20. Patient seen at bedside. Passing flatus, had a bowel movement yesterday. Still with NG tube with 900 mL output. Multiple episodes of vomiting yesterday. Patient states she feels less distended. ROS reviewed. Pertinent positives and negatives discussed above, a complete review of systems was performed and all the other systems were negative. Physical examination: Vital signs are stable. General: No acute distress. AOx4. Currently with an NG tube. HEENT: Head exam is unremarkable. EOMI bilaterally. ACs patent. Nares patent. Lungs: Bilateral breath sounds present; no rhonchi, wheezes, or rales. Heart: Rate and rhythm are regular. S1-S2 present. No murmur/rub/gallops. Abdomen: Diffuse tenderness; soft, mildly distended. Bowel sounds present. Extremities: Trace edema present. Symmetric movement. Psych: Normal affect and mood. Cooperative. Assessment/Plan: Intramural wall abscess Right sided colitis Postop day 8 status post diagnostic laparoscopic abdominal washout converted to open with ileocecectomy with drain placement Continue TPN Surgery following Ileus Surgery followingno plans for surgical intervention at this time NPO Continue with NG tube suction Encouraged ambulation Hypokalemia, improving Monitor BMP Diabetes mellitus type 2 Insulin sliding scale Hypertension Continue Norvasc Hyperlipidemia Continue Lipitor COPD Continue Ventolin as needed Continue Symbicort Continue DuoNeb History of CABG and stents Continue aspirin Anxiety Continue Xanax as needed DVT prophylaxis: Subcutaneous heparin GI prophylaxis: Protonix Objective - Vital Signs Vital signs: Vital Signs Temp 98.3 F 06/20/24 01:09 Pulse 78 06/20/24 01:09 Resp 20 06/20/24 01:09 BP 123/79 06/20/24 01:09 Pulse Ox 91 L 06/20/24 01:09 FiO2 Intake & Output 06/19/24 06/20/24 06/20/24 18:59 06:59 18:59 Intake Total 1041 Output Total 340 Balance 701 Weight 90.718 kg Intake: Intake, IV Titration 1041 Amount Mvi, Adult No.4 with Vit 1041 K 10 ml Trace (Conc-1Ml/ Dose) 1 ml Sodium Acetate 30 meq Potassium Acetate 20 meq Calcium Gluconate 1 gm Magnesium Sulfate gm 1 gm Potassium Phosphate 9 mmol In Amino Acids 5 %/Dextrose 20 % 1,000 ml @ 87 mls/hr IV . BY [facility]ATION [facility] Rx#: [id number] Output: Drainage 40 Left Lower Abdomen 40 Emesis 300 Other: Voiding Method Toilet Toilet # Voids 1 3 - Labs CBC & Chem 7: 06/20/24 03:29 06/20/24 03:29 Labs: Abnormal Lab Results - Last 24 Hours (Table) 06/19/24 06/19/24 06/19/24 Range/Units 11:34 16:51 20:28 RDW (11.5-15.5) % Sodium (137-145) mmol/L Chloride (98-107) mmol/L BUN (7-17) mg/dL Glucose (74-99) mg/dL POC Glucose (mg/dL) 131 H 161 H 138 H (70-110) mg/dL Total Protein (6.3-8.2) g/dL Albumin (3.5-5.0) g/dL 06/20/24 06/20/24 06/20/24 Range/Units 03:29 03:29 03:29 RDW 16.1 H (11.5-15.5) % Sodium 136 L (137-145) mmol/L Chloride 108 H (98-107) mmol/L BUN 19 H 19 H (7-17) mg/dL Glucose 202 H 203 H (74-99) mg/dL POC Glucose (mg/dL) (70-110) mg/dL Total Protein 5.7 L (6.3-8.2) g/dL Albumin 3.2 L (3.5-5.0) g/dL 06/20/24 Range/Units 06:01 RDW (11.5-15.5) % Sodium (137-145) mmol/L Chloride (98-107) mmol/L BUN (7-17) mg/dL Glucose (74-99) mg/dL POC Glucose (mg/dL) 212 H (70-110) mg/dL Total Protein (6.3-8.2) g/dL Albumin (3.5-5.0) g/dL
[2024-06-20 17:05] LABS: Glucose,Whole Blood 205 mg/dL (70-110)
--- NOTE | 2024-06-20 19:07 | XR ---
EXAMINATION TYPE: XR chest 1V DATE OF EXAM: 06/20/2024 COMPARISON: 06/19/2024 INDICATION: Short of breath TECHNIQUE: Single frontal view of the chest is obtained. FINDINGS: The heart size is normal. The pulmonary vasculature is normal. Some mild streak atelectasis is likely within the right lung base, improved. Nasogastric tube transverses the thorax with the tip in the mid abdomen. Sternotomy wires are in the midline. IMPRESSION: 1. Mild improving streaky atelectasis right lung base. 2. Nasogastric tube transverses the thorax. [facility], , 06/20/2024 7:04 PM
[2024-06-20 19:43] LABS: ABG HCO3 24 mmol/L (21-25); ABG Oxygen Saturation 96.7 % (94-97); ABG PCO2 30 mmHg (35-45); ABG PH 7.52 (7.35-7.45); ABG PO2 112 mmHg (83-108); ABG TCO2 25 mmol/L (19-24); Allen Test Performed? Yes
[2024-06-20 22:13] LABS: Glucose,Whole Blood 172 mg/dL (70-110)
[2024-06-21] MEDS ORDERED: HYDROmorphone 1 MG/ML 1 ML SYRINGE ONE (05:30)
[2024-06-21 06:01] LABS: Glucose,Whole Blood 226 mg/dL (70-110)
[2024-06-21 06:47] LABS: African American GFR (CKD) >90 (>60 ml/min/1.73 sqM); Anion Gap 5 mmol/L; Blood Urea Nitrogen 19 mg/dL (7-17); Calcium 8.9 mg/dL (8.4-10.2); Carbon Dioxide 24 mmol/L (22-30); Chloride 107 mmol/L (98-107); Glucose 205 mg/dL (74-99); Magnesium 2.1 mg/dL (1.6-2.3); Non-African American GFR(CKD) >90 (>60 ml/min/1.73 sqM); Phosphorus 3.8 mg/dL (2.5-4.5); Sodium 136 mmol/L (137-145)
[2024-06-21 11:06] LABS: Basophils # (A) 0.07 X 10*3/uL (0.00-0.10); Basophils % (A) 0.7 %; Eosinophils # (A) 1.15 X 10*3/uL (0.04-0.35); Eosinophils % (A) 10.7 %; HCT 37.4 % (37.2-46.3); HGB 11.5 g/dL (12.0-15.0); Lymphocytes # (A) 2.67 X 10*3/uL (0.90-5.00); Lymphocytes % (A) 24.9 %; MCH 27.2 pg (27.0-32.0); MCHC 30.7 g/dL (32.0-37.0); MCV 88.4 FL (80.0-97.0); Mean Platelet Volume 11.6 FL (9.5-12.2); Monocytes # (A) 0.98 X 10*3/uL (0.20-1.00); Monocytes % (A) 9.1 %; NRBC Per 100 WBC 0 X 10*3/uL (0.00-0.01); Neutrophils # (A) 5.73 X 10*3/uL (1.80-7.70); Neutrophils % (A) 53.5 %; Platelet Count 382 X 10*3/uL (140-440); RBC 4.23 X 10*6/uL (4.10-5.20); RDW 16.2 % (11.5-14.5); WBC 10.72 X 10*3/uL (4.50-10.00)
[2024-06-21 11:35] LABS: Glucose,Whole Blood 207 mg/dL (70-110)
--- NOTE | 2024-06-21 13:40 | XR ---
EXAMINATION TYPE: XR abdomen 1V DATE OF EXAM: 06/21/2024 COMPARISON: 06/19/2024 INDICATION: Follow-up ileus TECHNIQUE: Single view abdomen FINDINGS: Abundant bowel gas is present through small bowel loops as well as colon. Drainage catheters in the m idline. Contrast is within the colon. Postsurgical changes in the right midabdomen. Psoas margins as visualized appears normal. This is limited visualization. No organomegaly is present. Is a gastric tube tip is within the left upper quadrant of the abdomen. IMPRESSION: 1. Excessive bowel gas present. 2. Postsurgical changes. [facility], , 06/21/2024 1:37 PM
--- NOTE | 2024-06-21 13:47 | P.PN ---
Subjective Progress Note Date: 06/21/24 Patient is a 53-year-old female with diabetes, hypertension, COPD, CABG with multiple stents most recently in November 2018 maintained on aspirin and Plavix presents with complaints of worsening abdominal pain. She was discharged from the hospital 2 days ago on Ceftin and Flagyl for colitis. During that hospital course her CT abdomen/pelvis revealed right-sided colitis she was started on IV Flagyl and ciprofloxacin and her WBCs trended down (11.5 to 8.21 on discharge). She endorsed improved pain throughout her stay and on the day of discharge she was asking to go home after she successfully ate lunch. During her stay her C. difficile PCR was negative. Endorses one episode of bloody emesis yesterday, and approximately 6 other episodes of non-bloody emesis since discharge but has had no vomiting since admission last night. Endorses compliance with medications since discharge. States pain is 6/10 right now but was 100/10 just before coming to ED. Denies current chest pain, shortness of breath, nausea, vomiting, hematochezia. Endorses right lower quadrant pain. CT abdomen/pelvis revealed inflammatory changes involving the cecum with adjacent 2.3 cm intramural wall abscess and reactive small bowel ileus. WBCs 12.3, hemoglobin 13.4, platelets 580. Urinalysis unremarkable. Afebrile, tachycardic since improved, hypertensive with systolic [id number]. 06/07. Patient seen and examined at bedside. She states that the pain is improved. Surgery consultedno intervention at this time. Endorses mild diarrhea starting. WBC 7.62. 06/08. Patient seen and examined lying comfortably on bed. She states the pain is significantly improved. Lab results pending. 06/09. Patient is evaluated in follow up today. She is resting in bed she is holding her abdomen and reporting pain to the RLQ. She is requesting IV pain medication. Noted that follow up abdominal pelvis CT done today reveals similar findings with abnormally thickened wall of the colon adjacent to the ileocecal valve region. Similar surrounding mild inflammatory fat stranding consider focal colitis. Suspected intramural abscess here is smaller at 1.8 cm vs. 2.5 cm previously. Normal appendix. New prominent fluid within the stomach. Fluid- filled small bowel loops are more numerous now. Consider worsening ileus. Trace pelvic free fluid redemonstrated. No free air. Potassium 5.3. today. 06/10. Patient seen and examined at bedside. Patient still with significant amount of pain on the right side of the abdomen as well as epigastric area. She is NPO. She endorses nausea. She denies fever, chest pain, shortness of breath. Infectious disease consulted. Labs unremarkable. 06/11. Patient seen and examined. Continues to complain of abdominal pain. Denies any nausea or vomiting, passing gas. 06/12. Patient seen and examined at bedside lying comfortably. Continues to complain of abdominal pain. Excited but nervous for surgery. Denies any nausea, vomiting, fever, chills. Endorses passing gas and 3 episodes of diarrhea today. Patient going to the operating room today. Midline was placed this morning. 06/13. Patient seen lying in bed. She is postop day 1 status post diagnostic laparoscopic abdominal washout converted to open with ileocecectomy with drain placement. She is complaining of abdominal pain and a lot of pressure in epigastric region. She has not passed flatus. 06/14. Patient seen and examined laying in bed. She is postop day 2 status post diagnostic laparoscopic abdominal washout converted to open with ileocecectomy with drain placement. She endorses improved abdominal pain with pressure in the epigastric region. She has not passed flatus. OSCAR drain is serosanguineous fluid. Potassium 2.9. TPN has been started. 06/15. Patient seen laying in bed. She is postop day 3 status post diagnostic laparoscopic abdominal washout converted to open with ileocecectomy with drain placement. She endorses improved abdominal pain and increased ambulation. She has not passed flatus. She is ambulating well around the unit. OSCAR drain is serosanguineous fluid. Potassium is 3.2. Endorses nausea and relief with Zofran. 06/16. Patient seen and examined. Currently on TPN, states she feels better. Denies any nausea or vomiting, complaining of on and off abdominal pain. 06/17. Patient seen laying in bed. Postop day 5. Endorses epigastric abdominal pain. Ambulating well around the unit. Not passing flatus. 06/18. Patient seen and examined. Patient had 1 episode of emesis this morning, states she feels much better after that. Patient not passing gas. No bowel movement yet. 06/19. Patient seen and examined at bedside. No flatus, no bowel movement. Had an NG tube placed overnight. 06/20. Patient seen at bedside. Passing flatus, had a bowel movement yesterday. Still with NG tube with 900 mL output. Multiple episodes of vomiting yesterday. Patient states she feels less distended. 06/21. Patient seen and examined lying in bed. Endorses worsened abdominal pain. Endorses mild chest pain relieved with sitting up, worsened laying flat. ROS reviewed. Pertinent positives and negatives discussed above, a complete review of systems was performed and all the other systems were negative. Physical examination: Vital signs are stable. General: No acute distress. AOx4. Currently with an NG tube. HEENT: Head exam is unremarkable. EOMI bilaterally. ACs patent. Nares patent. Lungs: Bilateral breath sounds present; no rhonchi, wheezes, or rales. Heart: Rate and rhythm are regular. S1-S2 present. No murmur/rub/gallops. Abdomen: Diffuse tenderness; soft, mildly distended. Bowel sounds present. Extremities: Trace edema present. Symmetric movement. Psych: Normal affect and mood. Cooperative. Assessment/Plan: Intramural wall abscess Right sided colitis Postop day 9 status post diagnostic laparoscopic abdominal washout converted to open with ileocecectomy with drain placement Continue TPN Surgery following Continue with Zosyn per infectious disease Ileus Surgery followingno plans for surgical intervention at this time NPO Continue with NG tube suction Encourage ambulation Hypokalemia, improving Monitor BMP Diabetes mellitus type 2 Insulin sliding scale Hypertension Continue Norvasc Hyperlipidemia Continue Lipitor COPD Continue Ventolin as needed Continue Symbicort Continue DuoNeb History of CABG and stents Continue aspirin Anxiety Continue Xanax as needed DVT prophylaxis: Subcutaneous heparin GI prophylaxis: Protonix Objective - Vital Signs Vital signs: Vital Signs Temp 97.3 F L 06/20/24 20:43 Pulse 92 06/20/24 20:43 Resp 19 06/20/24 20:43 BP 113/78 06/20/24 20:43 Pulse Ox 87 L 06/20/24 20:43 FiO2 Intake & Output 06/20/24 06/21/24 06/21/24 18:59 06:59 18:59 Intake Total 1040 Output Total 90 30 Balance 950 -30 Intake: Intake, IV Titration 1040 Amount Sodium Acetate 30 meq 1040 Potassium Acetate 20 meq Calcium Gluconate 1 gm Magnesium Sulfate gm 1 gm Potassium Phosphate 9 mmol In Amino Acids 5 %/ Dextrose 20 % 1,000 ml @ 87 mls/hr IV .BY DURATION [facility] Rx#:[id number] Output: Drainage 90 30 Left Lower Abdomen 90 30 Other: # Voids 3 2 # Bowel Movements 1 - Labs CBC & Chem 7: 06/21/24 06:10 06/21/24 06:10 Labs: Abnormal Lab Results - Last 24 Hours (Table) 06/20/24 06/20/24 06/20/24 Range/Units 11:15 17:03 19:38 D-Dimer (<0.60) mg/L FEU ABG pH 7.52 H (7.35-7.45) ABG pCO2 30 L (35-45) mmHg ABG pO2 112 H (83-108) mmHg ABG Total CO2 25 H (19-24) mmol/L Sodium (137-145) mmol/L BUN (7-17) mg/dL Creatinine (0.52-1.04) mg/dL Glucose (74-99) mg/dL POC Glucose (mg/dL) 149 H 205 H (70-110) mg/dL 06/20/24 06/20/24 06/21/24 Range/Units 22:02 22:13 06:00 D-Dimer 5.33 H (<0.60) mg/L FEU ABG pH (7.35-7.45) ABG pCO2 (35-45) mmHg ABG pO2 (83-108) mmHg ABG Total CO2 (19-24) mmol/L Sodium (137-145) mmol/L BUN (7-17) mg/dL Creatinine (0.52-1.04) mg/dL Glucose (74-99) mg/dL POC Glucose (mg/dL) 172 H 226 H (70-110) mg/dL 06/21/24 Range/Units 06:10 D-Dimer (<0.60) mg/L FEU ABG pH (7.35-7.45) ABG pCO2 (35-45) mmHg ABG pO2 (83-108) mmHg ABG Total CO2 (19-24) mmol/L Sodium 136 L (137-145) mmol/L BUN 19 H (7-17) mg/dL Creatinine 0.51 L (0.52-1.04) mg/dL Glucose 205 H (74-99) mg/dL POC Glucose (mg/dL) (70-110) mg/dL
--- NOTE | 2024-06-21 14:44 | P.PN ---
Subjective Progress Note Date: 06/21/24 CHIEF COMPLAINT: Diverticulitis with abscess HISTORY OF PRESENT ILLNESS: Patient is postop day #10 status post diagnostic laparoscopic abdominal washout converted to open with ileocecectomy with drain placement. Patient continues to have abdominal pain and abdominal distention and not feeling well. She did have bowel movement and flatus. Patient had shortness of breath during the night. Chest x-ray reporting atelectasis. Patient reporting her shortness of breath improved today after breathing tr eatments. Afebrile. Mildly tachycardic. WBC 10.72 Hgb 11.5 platelets 382 PHYSICAL EXAM: VITAL SIGNS: Reviewed. GENERAL: no acute distress. ABDOMEN: Abdomen distended. More tender on the right lower quadrant. Incisional dressing clean dry and intact. OSCAR drain cloudy serous fluid. NEUROLOGIC: Alert and oriented. Cranial nerves II through XII grossly intact. ASSESSMENT: 1. Colitis with intramural wall abscess 2. Postoperative ileus can be an expected finding 3. Moderate protein calorie malnutrition PLAN: -Patient had abdominal x-ray completed this morning and radiology reported that patient still had a large amount of contrast still in her intestines from CAT scan 3 days ago and a large amount of air in the intestines and small bowel follow-through that was ordered for today could not be completed. -Dr. Dubois has evaluated patient and reviewed imaging. He is planning to take patient to the OR today for exploratory laparotomy -Continue NG tube for decompression -Keep patient n.p.o. -Continue TPN for nutrition support -Continue antibiotics -Encourage incentive spirometer use -Continue pain management -DVT prophylaxis subcu heparin GI prophylaxis Protonix Physician Insulation Packer note has been reviewed by physician. Signing provider agrees with the documented findings, assessment, and plan of care. Objective - Vital Signs Vital signs: Vital Signs Temp 97.9 F 06/21/24 06:52 Pulse 96 06/21/24 13:08 Resp 18 06/21/24 08:44 BP 109/73 06/21/24 06:52 Pulse Ox 94 L 06/21/24 08:35 FiO2 Intake & Output 06/20/24 06/21/24 06/21/24 18:59 06:59 18:59 Intake Total 1040 Output Total 90 30 Balance 950 -30 Intake: Intake, IV Titration 1040 Amount Sodium Acetate 30 meq 1040 Potassium Acetate 20 meq Calcium Gluconate 1 gm Magnesium Sulfate gm 1 gm Potassium Phosphate 9 mmol In Amino Acids 5 %/ Dextrose 20 % 1,000 ml @ 87 mls/hr IV .BY DURATION [facility] Rx#:[id number] Output: Drainage 90 30 Left Lower Abdomen 90 30 Other: # Voids 3 2 # Bowel Movements 1 - Labs CBC & Chem 7: 06/21/24 06:10 06/21/24 06:10 Labs: Abnormal Lab Results - Last 24 Hours (Table) 06/20/24 06/20/24 06/20/24 Range/Units 17:03 19:38 22:02 WBC (4.50-10.00) X 10*3/uL Hgb (12.0-15.0) g/dL MCHC (32.0-37.0) g/dL RDW (11.5-14.5) % Immature Gran # (0.00-0.04) X 10*3/uL Eosinophils # (0.04-0.35) X 10*3/uL D-Dimer 5.33 H (<0.60) mg/L FEU ABG pH 7.52 H (7.35-7.45) ABG pCO2 30 L (35-45) mmHg ABG pO2 112 H (83-108) mmHg ABG Total CO2 25 H (19-24) mmol/L Sodium (137-145) mmol/L BUN (7-17) mg/dL Creatinine (0.52-1.04) mg/dL Glucose (74-99) mg/dL POC Glucose (mg/dL) 205 H (70-110) mg/dL 06/20/24 06/21/24 06/21/24 Range/Units 22:13 06:00 06:10 WBC (4.50-10.00) X 10*3/uL Hgb (12.0-15.0) g/dL MCHC (32.0-37.0) g/dL RDW (11.5-14.5) % Immature Gran # (0.00-0.04) X 10*3/uL Eosinophils # (0.04-0.35) X 10*3/uL D-Dimer (<0.60) mg/L FEU ABG pH (7.35-7.45) ABG pCO2 (35-45) mmHg ABG pO2 (83-108) mmHg ABG Total CO2 (19-24) mmol/L Sodium 136 L (137-145) mmol/L BUN 19 H (7-17) mg/dL Creatinine 0.51 L (0.52-1.04) mg/dL Glucose 205 H (74-99) mg/dL POC Glucose (mg/dL) 172 H 226 H (70-110) mg/dL 06/21/24 06/21/24 Range/Units 06:10 11:34 WBC 10.72 H (4.50-10.00) X 10*3/uL Hgb 11.5 L (12.0-15.0) g/dL MCHC 30.7 L (32.0-37.0) g/dL RDW 16.2 H (11.5-14.5) % Immature Gran # 0.12 H (0.00-0.04) X 10*3/uL Eosinophils # 1.15 H (0.04-0.35) X 10*3/uL D-Dimer (<0.60) mg/L FEU ABG pH (7.35-7.45) ABG pCO2 (35-45) mmHg ABG pO2 (83-108) mmHg ABG Total CO2 (19-24) mmol/L Sodium (137-145) mmol/L BUN (7-17) mg/dL Creatinine (0.52-1.04) mg/dL Glucose (74-99) mg/dL POC Glucose (mg/dL) 207 H (70-110) mg/dL Assessment and Plan Assessment: OR today as contrast still remains in the colon. Time with Patient: Greater than 30
--- NOTE | 2024-06-21 14:51 | P.CNPUL ---
History of Present Illness Consult date: 06/21/24 Reason for consult: hypoxemia History of present illness: This is a 53-year-old female patient is being seen in consultation as the patient has noted to be more hypoxic during this current admission. The patient has been in the hospital since 06/06/2023 and the patient has a perforated diverticular abscess. The patient has undergone a diagnostic laparoscopy converted to open ileocecectomy and this was done on 06/14/2024. Since then, the patient has been kept NPO. NG tube still in place. No reported aspiration. Surgical site is dry clean and intact. The patient's output from the OSCAR drain is serosanguineous. The patient has no fever or chills. No hemodynamic instability. She is known to have COPD and she claims that she has been oxygen dependent at home somewhere between 2 to 3 L and she was using it only on a history basis. Her oxygen requirements have been gradually increasing and the patient is currently on 5 L of oxygen nasal cannula. She is using incentive spirometer. She is laying down in bed. Reviewed the most recent chest x-ray and it shows some atelectatic changes in lung bases bilaterally. Otherwise, there is no airspace's or consolidations. No chest pain. No pleurisy or hemoptysis. The patient has been maintained on heparin subcu for DVT prophylaxis throughout the admission. No swelling in lower extremities. No other complaints of respiratory distress for now. The white cell count of 10.7, hemoglobin 9.5 and a platelet count of 382. The patient's D-dimer is at 5.33 which is expectedly elevated. Sodium levels at 136, BUN is 19 with a creatinine of 0.51 and a potassium level is at 4. proBNP level is 115. She is awake and alert and she is communicating. Review of Systems Constitutional: Reports fatigue Eyes: denies as per HPI, denies blurred vision, denies bulging eye, denies decreased vision, denies diplopia, denies discharge, denies dry eye, denies irritation, denies itching, denies pain, denies photophobia, denies loss of peripheral vision, denies loss of vision, denies tunnel vision/blind spots Ears: deny: decreased hearing, ear discharge, earache, tinnitus Ears, nose, mouth and throat: Reports as per HPI Breasts: absent: as per HPI, change in shape, gynecomastia, masses, nipple discharge, pain, skin changes, swelling Cardiovascular: Reports as per HPI Respiratory: Reports as per HPI Gastrointestinal: Reports as per HPI Genitourinary: Reports as per HPI Menstruation: Reports as per HPI Musculoskeletal: Reports as per HPI Musculoskeletal: absent: ankle pain, ankle stiffness, ankle swelling Integumentary: Reports as per HPI Neurological: Reports as per HPI Psychiatric: Reports as per HPI Endocrine: Reports as per HPI Hematologic/Lymphatic: Reports as per HPI Allergic/Immunologic: Reports as per HPI Past Medical History Past Medical History: Asthma, Coronary Artery Disease (CAD), COPD, Diabetes Mellitus, GERD/Reflux, Hypertension, Myocardial Infarction (RI), Osteoarthritis (OA) Additional Past Medical History / Comment(s): DDD, scoliosis Last Myocardial Infarction Date:: 2011 History of Any Multi-Drug Resistant Organisms: None Reported Past Surgical History: Coronary Bypass/CABG, Heart Catheterization With Stent Additional Past Surgical History / Comment(s): seven stents Past Anesthesia/Blood Transfusion Reactions: No Reported Reaction Date of Last Stent Placement:: 11/2018 Past Psychological History: Anxiety, Bipolar Smoking Status: Current every day smoker Past Alcohol Use History: None Reported Additional Past Alcohol Use History / Comment(s): 1 ppd Past Drug Use History: Marijuana - Past Family History Mother Family Medical History: Cancer Additional Family Medical History / Comment(s): Ovarian cancer Father Family Medical History: Congestive Heart Failure (CHF) Fmily Family Medical History: No Reported History Medications and Allergies Home Medications Medication Instructions Recorded Confirmed Type Atorvastatin [Lipitor] 80 mg PO DAILY 07/08/20 06/06/24 History Ranolazine [Ranexa] 1,000 mg PO BID 11/13/21 06/06/24 History Albuterol Inhaler [Ventolin Hfa 2 puff INHALATION RT-QID PRN 03/27/23 06/06/24 History Inhaler] Aspirin EC [Ecotrin Low Dose] 81 mg PO DAILY 03/27/23 06/12/24 History Budesonide/Formoterol Fumarate 2 puff INHALATION RT-BID 03/27/23 06/06/24 History [Symbicort 160-4.5 Mcg Inhaler] Clopidogrel [Plavix] 75 mg PO DAILY 03/27/23 06/12/24 History Nitroglycerin Sl Tabs [Nitrostat] 0.4 mg SL Q5M PRN 03/27/23 06/06/24 History Omeprazole 40 mg PO BID 03/27/23 06/06/24 History Pregabalin [Lyrica] 150 mg PO TID 03/27/23 06/06/24 History amLODIPine [Norvasc] 10 mg PO DAILY 03/27/23 06/06/24 History metFORMIN HCL 1,000 mg PO BID 03/27/23 06/06/24 History rOPINIRole HCL [Requip] 1 mg PO HS 03/27/23 06/06/24 History ALPRAZolam [Xanax] 0.5 mg PO BID PRN 06/22/23 06/06/24 History Dapagliflozin Propanediol [Farxiga] 5 mg PO DAILY 03/16/24 06/06/24 History Dulaglutide [Trulicity] 3 mg SQ WE 03/16/24 06/06/24 History Insulin Lispro [humaLOG Kwikpen] See Protocol SQ AC-TID 03/16/24 06/06/24 History Ipratropium-Albuterol Nebulize 3 ml INHALATION RT-TID 03/16/24 06/06/24 History [Duoneb 0.5 mg-3 mg/3 ml Soln] Isosorbide Mononitrate ER [Imdur] 30 mg PO DAILY 03/16/24 06/06/24 History Mag Hydrox/Al Hydrox/Simeth 30 ml PO QID PRN 2 Days #180 ml 05/22/24 06/06/24 Rx [Maalox] Spiriva Respimat 1.25mcg/Actuation 2 puff INHALATION RT-DAILY 05/24/24 06/06/24 History Mist Metoprolol Tartrate [Lopressor] 25 mg PO BID #60 tab 05/29/24 06/06/24 Rx Albuterol Nebulized [Ventolin 2.5 mg INHALATION RT-Q6H PRN 05/31/24 06/06/24 History Nebulized] Ondansetron Odt [Zofran ODT] 4 mg PO Q8HR PRN 05/31/24 06/06/24 History lisinopriL [Zestril] 10 mg PO DAILY 05/31/24 06/06/24 History Cholestyramine (with Sugar) 4 gm PO BID #60 packet 06/03/24 06/06/24 Rx [Questran] HYDROcodone/APAP 5-325MG [[place] 1 tab PO BID PRN 3 Days #6 tab 06/03/24 06/06/24 Rx 5-325] cefUROXime axetiL [Ceftin] 500 mg PO BID 6 Days #12 tab 06/03/24 06/06/24 Rx metroNIDAZOLE [Flagyl] 500 mg PO TID 6 Days #18 tab 06/03/24 06/06/24 Rx Allergies Allergy/AdvReac Type Severity Reaction Status Date / Time No Known Allergies Allergy Verified 06/12/24 13:46 Physical Exam Vitals: Vital Signs Temp Pulse Pulse Resp BP Pulse Ox 06/21/24 13:32 98.0 F 98 18 143/82 90 L 06/21/24 13:08 96 06/21/24 12:57 92 06/21/24 08:44 101 H 18 06/21/24 08:35 105 H 18 94 L 06/21/24 08:00 18 06/21/24 06:52 97.9 F 70 18 109/73 94 L 06/20/24 20:43 97.3 F L 92 19 113/78 87 L 06/20/24 16:57 88 06/20/24 16:49 86 Intake and Output 06/20/24 06/21/24 06/21/24 22:59 06:59 14:59 Intake Total 1040 Output Total 30 Balance 1040 -30 Intake: Intake, IV Titration 1040 Amount Sodium Acetate 30 meq 1040 Potassium Acetate 20 meq Calcium Gluconate 1 gm Magnesium Sulfate gm 1 gm Potassium Phosphate 9 mmol In Amino Acids 5 %/ Dextrose 20 % 1,000 ml @ 87 mls/hr IV .BY DURATION [facility] Rx#:[id number] Output: Drainage 30 Left Lower Abdomen 30 Other: # Voids 3 2 # Bowel Movements 1 General Appearance,, comfortable, currently on 5 L of oxygen by nasal cannula. Head exam was generally normal. There was no scleral icterus or corneal arcus. Mucous membranes were moist. Neck was supple and without jugular venous distension, thyromegaly, or carotid bruits. Carotids were easily palpable bilaterally. There was no adenopathy. The patient has an NG tube in place. Lung sounds are diminished bilaterally specially the lung bases. No wheezes or rhonchi or crackles. Cardiac exam revealed the PMI to be normally situated and sized. The rhythm was regular and no extrasystoles were noted during several minutes of auscultation. The first and second heart sounds were normal and physiologic splitting of the second heart sound was noted. There were no murmurs, rubs, clicks, or gallops. Abdominal exam revealed no bowel sounds. The abdomen was soft, non-tender, and without masses, organomegaly, or appreciable enlargement of the abdominal aorta. Bowel sounds remain hypoactive and the patient has a mid abdominal incision. OSCAR drain is in place. Examination of the extremities revealed easily palpable radial, femoral and pedal pulses. There was no cyanosis, clubbing or edema. Examination of the skin revealed no evidence of significant rashes, suspicious appearing nevi or other concerning lesions. Neurologically, the patient is awake and alert and the patient does not have any focal neurological deficit. Cranial nerves are essentially intact. Results - Laboratory Findings CBC and BMP: 06/21/24 06:10 06/21/24 06:10 ABG ABG pH 7.52 (7.35-7.45) H 06/20/24 19:38 ABG pCO2 30 mmHg (35-45) L 06/20/24 19:38 ABG pO2 112 mmHg (83-108) H 06/20/24 19:38 ABG O2 Saturation 96.7 % (94-97) 06/20/24 19:38 PT/INR, D-dimer PT 10.9 sec (10.0-12.5) 06/13/24 12:06 INR 1.0 (<1.2) 06/13/24 12:06 D-Dimer 5.33 mg/L FEU (<0.60) H 06/20/24 22:02 Abnormal lab findings: Abnormal Labs 06/05/24 06/05/24 06/05/24 18:57 19:46 19:46 WBC 12.3 H RBC Hgb Hct MCH MCHC RDW 16.8 H Plt Count 580 H Immature Gran # Neutrophils # 8.6 H Eosinophils # D-Dimer ABG pH ABG pCO2 ABG pO2 ABG Total CO2 Sodium Potassium Chloride 108 H Carbon Dioxide 20 L Anion Gap BUN 6 L Creatinine BUN/Creatinine Ratio Glucose 119 H POC Glucose (mg/dL) Phosphorus Total Protein Albumin Albumin/Globulin Ratio Urine Protein 1+ H Ur Leukocyte Esterase Small H Hyaline Casts 5 H Urine Mucus Moderate H 06/07/24 06/07/24 06/08/24 07:40 07:40 08:36 WBC RBC 3.84 L Hgb 10.6 L Hct 33.4 L MCH MCHC 31.7 L RDW 17.1 H 16.6 H Plt Count Immature Gran # 0.08 H Neutrophils # Eosinophils # D-Dimer ABG pH ABG pCO2 ABG pO2 ABG Total CO2 Sodium Potassium Chloride 111 H Carbon Dioxide 18.5 L Anion Gap 12.50 H BUN 6.2 L Creatinine BUN/Creatinine Ratio 7.75 L Glucose POC Glucose (mg/dL) Phosphorus Total Protein 5.3 L Albumin 3.3 L Albumin/Globulin Ratio Urine Protein Ur Leukocyte Esterase Hyaline Casts Urine Mucus 06/08/24 06/09/24 06/09/24 08:36 05:57 07:53 WBC RBC Hgb Hct MCH MCHC RDW Plt Count Immature Gran # Neutrophils # Eosinophils # D-Dimer ABG pH ABG pCO2 ABG pO2 ABG Total CO2 Sodium Potassium 5.3 H Chloride 111 H 112 H Carbon Dioxide 21 L Anion Gap BUN 3 L 4 L Creatinine BUN/Creatinine Ratio Glucose POC Glucose (mg/dL) 124 H Phosphorus Total Protein 5.3 L Albumin 3.0 L Albumin/Globulin Ratio Urine Protein Ur Leukocyte Esterase Hyaline Casts Urine Mucus 06/09/24 06/10/24 06/10/24 08:37 04:36 04:36 WBC RBC 3.77 L Hgb 10.3 L Hct 33.2 L MCH MCHC 30.7 L 31.0 L RDW 16.7 H 17.1 H Plt Count 452 H Immature Gran # Neutrophils # Eosinophils # D-Dimer ABG pH ABG pCO2 ABG pO2 ABG Total CO2 Sodium Potassium Chloride 113 H Carbon Dioxide Anion Gap BUN 4.1 L Creatinine BUN/Creatinine Ratio 5.12 L Glucose POC Glucose (mg/dL) Phosphorus Total Protein Albumin Albumin/Globulin Ratio Urine Protein Ur Leukocyte Esterase Hyaline Casts Urine Mucus 06/10/24 06/11/24 06/12/24 21:38 05:40 08:22 WBC RBC Hgb Hct MCH MCHC RDW 16.6 H Plt Count 457 H Immature Gran # Neutrophils # Eosinophils # D-Dimer ABG pH ABG pCO2 ABG pO2 ABG Total CO2 Sodium Potassium Chloride Carbon Dioxide Anion Gap BUN Creatinine BUN/Creatinine Ratio Glucose POC Glucose (mg/dL) 120 H 130 H Phosphorus Total Protein Albumin Albumin/Globulin Ratio Urine Protein Ur Leukocyte Esterase Hyaline Casts Urine Mucus 06/12/24 06/12/24 06/12/24 08:22 18:23 20:19 WBC RBC Hgb Hct MCH MCHC RDW Plt Count Immature Gran # Neutrophils # Eosinophils # D-Dimer ABG pH ABG pCO2 ABG pO2 ABG Total CO2 Sodium Potassium 2.9 L Chloride 110 H Carbon Dioxide Anion Gap BUN 5 L Creatinine BUN/Creatinine Ratio Glucose POC Glucose (mg/dL) 125 H 128 H Phosphorus Total Protein Albumin Albumin/Globulin Ratio Urine Protein Ur Leukocyte Esterase Hyaline Casts Urine Mucus 06/13/24 06/13/24 06/14/24 05:34 20:34 06:16 WBC RBC Hgb Hct MCH MCHC RDW Plt Count Immature Gran # Neutrophils # Eosinophils # D-Dimer ABG pH ABG pCO2 ABG pO2 ABG Total CO2 Sodium Potassium Chloride 117 H Carbon Dioxide 17 L Anion Gap BUN 6 L Creatinine BUN/Creatinine Ratio Glucose POC Glucose (mg/dL) 117 H 119 H Phosphorus Total Protein Albumin Albumin/Globulin Ratio Urine Protein Ur Leukocyte Esterase Hyaline Casts Urine Mucus 06/14/24 06/14/24 06/14/24 06:33 11:27 16:42 WBC RBC Hgb Hct MCH MCHC RDW Plt Count Immature Gran # Neutrophils # Eosinophils # D-Dimer ABG pH ABG pCO2 ABG pO2 ABG Total CO2 Sodium Potassium 2.9 L Chloride Carbon Dioxide Anion Gap BUN 6 L Creatinine BUN/Creatinine Ratio Glucose 126 H POC Glucose (mg/dL) 134 H 112 H Phosphorus Total Protein 5.7 L Albumin 3.3 L Albumin/Globulin Ratio Urine Protein Ur Leukocyte Esterase Hyaline Casts Urine Mucus 06/14/24 06/15/24 06/15/24 20:17 05:35 06:06 WBC RBC Hgb Hct MCH MCHC RDW Plt Count Immature Gran # Neutrophils # Eosinophils # D-Dimer ABG pH ABG pCO2 ABG pO2 ABG Total CO2 Sodium 136 L Potassium 3.2 L Chloride 109 H Carbon Dioxide Anion Gap BUN Creatinine BUN/Creatinine Ratio Glucose 146 H POC Glucose (mg/dL) 118 H 152 H Phosphorus Total Protein 5.3 L Albumin 3.0 L Albumin/Globulin Ratio Urine Protein Ur Leukocyte Esterase Hyaline Casts Urine Mucus 06/15/24 06/15/24 06/15/24 11:58 16:30 21:22 WBC RBC Hgb Hct MCH MCHC RDW Plt Count Immature Gran # Neutrophils # Eosinophils # D-Dimer ABG pH ABG pCO2 ABG pO2 ABG Total CO2 Sodium Potassium Chloride Carbon Dioxide Anion Gap BUN Creatinine BUN/Creatinine Ratio Glucose POC Glucose (mg/dL) 115 H 149 H 131 H Phosphorus Total Protein Albumin Albumin/Globulin Ratio Urine Protein Ur Leukocyte Esterase Hyaline Casts Urine Mucus 06/16/24 06/16/24 06/16/24 04:52 04:52 04:52 WBC RBC Hgb 11.2 L Hct 36.9 L MCH 26.6 L MCHC 30.4 L RDW 16.9 H Plt Count Immature Gran # 0.05 H Neutrophils # Eosinophils # 0.49 H D-Dimer ABG pH ABG pCO2 ABG pO2 ABG Total CO2 Sodium Potassium Chloride 111 H Carbon Dioxide Anion Gap BUN Creatinine BUN/Creatinine Ratio Glucose 121 H 119 H POC Glucose (mg/dL) Phosphorus 4.6 H Total Protein 5.1 L Albumin 2.9 L Albumin/Globulin Ratio Urine Protein Ur Leukocyte Esterase Hyaline Casts Urine Mucus 06/16/24 06/16/24 06/16/24 06:10 11:45 17:10 WBC RBC Hgb Hct MCH MCHC RDW Plt Count Immature Gran # Neutrophils # Eosinophils # D-Dimer ABG pH ABG pCO2 ABG pO2 ABG Total CO2 Sodium Potassium Chloride Carbon Dioxide Anion Gap BUN Creatinine BUN/Creatinine Ratio Glucose POC Glucose (mg/dL) 129 H 135 H 140 H Phosphorus Total Protein Albumin Albumin/Globulin Ratio Urine Protein Ur Leukocyte Esterase Hyaline Casts Urine Mucus 06/17/24 06/17/24 06/17/24 05:34 05:34 06:46 WBC RBC 4.06 L Hgb 11.2 L Hct 35.9 L MCH MCHC 31.2 L RDW 16.7 H Plt Count Immature Gran # 0.06 H Neutrophils # Eosinophils # 0.50 H D-Dimer ABG pH ABG pCO2 ABG pO2 ABG Total CO2 Sodium Potassium Chloride Carbon Dioxide Anion Gap 13.20 H BUN Creatinine BUN/Creatinine Ratio Glucose 114 H POC Glucose (mg/dL) 123 H Phosphorus Total Protein 5.5 L Albumin 3.3 L Albumin/Globulin Ratio 1.50 L Urine Protein Ur Leukocyte Esterase Hyaline Casts Urine Mucus 06/17/24 06/17/24 06/17/24 11:50 16:30 20:28 WBC RBC Hgb Hct MCH MCHC RDW Plt Count Immature Gran # Neutrophils # Eosinophils # D-Dimer ABG pH ABG pCO2 ABG pO2 ABG Total CO2 Sodium Potassium Chloride Carbon Dioxide Anion Gap BUN Creatinine BUN/Creatinine Ratio Glucose POC Glucose (mg/dL) 139 H 141 H 133 H Phosphorus Total Protein Albumin Albumin/Globulin Ratio Urine Protein Ur Leukocyte Esterase Hyaline Casts Urine Mucus 06/18/24 06/18/24 06/18/24 05:01 05:44 11:40 WBC RBC Hgb Hct MCH MCHC RDW Plt Count Immature Gran # Neutrophils # Eosinophils # D-Dimer ABG pH ABG pCO2 ABG pO2 ABG Total CO2 Sodium Potassium Chloride Carbon Dioxide Anion Gap BUN Creatinine BUN/Creatinine Ratio Glucose 152 H POC Glucose (mg/dL) 133 H 127 H Phosphorus Total Protein Albumin Albumin/Globulin Ratio Urine Protein Ur Leukocyte Esterase Hyaline Casts Urine Mucus 06/18/24 06/18/24 06/19/24 16:42 20:36 02:47 WBC RBC Hgb Hct MCH MCHC RDW Plt Count Immature Gran # Neutrophils # Eosinophils # D-Dimer ABG pH ABG pCO2 ABG pO2 ABG Total CO2 Sodium Potassium Chloride Carbon Dioxide Anion Gap BUN Creatinine BUN/Creatinine Ratio Glucose 134 H POC Glucose (mg/dL) 138 H 160 H Phosphorus Total Protein Albumin Albumin/Globulin Ratio Urine Protein Ur Leukocyte Esterase Hyaline Casts Urine Mucus 06/19/24 06/19/24 06/19/24 05:47 11:34 16:51 WBC RBC Hgb Hct MCH MCHC RDW Plt Count Immature Gran # Neutrophils # Eosinophils # D-Dimer ABG pH ABG pCO2 ABG pO2 ABG Total CO2 Sodium Potassium Chloride Carbon Dioxide Anion Gap BUN Creatinine BUN/Creatinine Ratio Glucose POC Glucose (mg/dL) 169 H 131 H 161 H Phosphorus Total Protein Albumin Albumin/Globulin Ratio Urine Protein Ur Leukocyte Esterase Hyaline Casts Urine Mucus 06/19/24 06/20/24 06/20/24 20:28 03:29 03:29 WBC RBC Hgb Hct MCH MCHC RDW 16.1 H Plt Count Immature Gran # Neutrophils # Eosinophils # D-Dimer ABG pH ABG pCO2 ABG pO2 ABG Total CO2 Sodium Potassium Chloride 108 H Carbon Dioxide Anion Gap BUN 19 H Creatinine BUN/Creatinine Ratio Glucose 202 H POC Glucose (mg/dL) 138 H Phosphorus Total Protein Albumin Albumin/Globulin Ratio Urine Protein Ur Leukocyte Esterase Hyaline Casts Urine Mucus 06/20/24 06/20/24 06/20/24 03:29 06:01 11:15 WBC RBC Hgb Hct MCH MCHC RDW Plt Count Immature Gran # Neutrophils # Eosinophils # D-Dimer ABG pH ABG pCO2 ABG pO2 ABG Total CO2 Sodium 136 L Potassium Chloride Carbon Dioxide Anion Gap BUN 19 H Creatinine BUN/Creatinine Ratio Glucose 203 H POC Glucose (mg/dL) 212 H 149 H Phosphorus Total Protein 5.7 L Albumin 3.2 L Albumin/Globulin Ratio Urine Protein Ur Leukocyte Esterase Hyaline Casts Urine Mucus 06/20/24 06/20/24 06/20/24 17:03 19:38 22:02 WBC RBC Hgb Hct MCH MCHC RDW Plt Count Immature Gran # Neutrophils # Eosinophils # D-Dimer 5.33 H ABG pH 7.52 H ABG pCO2 30 L ABG pO2 112 H ABG Total CO2 25 H Sodium Potassium Chloride Carbon Dioxide Anion Gap BUN Creatinine BUN/Creatinine Ratio Glucose POC Glucose (mg/dL) 205 H Phosphorus Total Protein Albumin Albumin/Globulin Ratio Urine Protein Ur Leukocyte Esterase Hyaline Casts Urine Mucus 06/20/24 06/21/24 06/21/24 22:13 06:00 06:10 WBC RBC Hgb Hct MCH MCHC RDW Plt Count Immature Gran # Neutrophils # Eosinophils # D-Dimer ABG pH ABG pCO2 ABG pO2 ABG Total CO2 Sodium 136 L Potassium Chloride Carbon Dioxide Anion Gap BUN 19 H Creatinine 0.51 L BUN/Creatinine Ratio Glucose 205 H POC Glucose (mg/dL) 172 H 226 H Phosphorus Total Protein Albumin Albumin/Globulin Ratio Urine Protein Ur Leukocyte Esterase Hyaline Casts Urine Mucus 06/21/24 06/21/24 06:10 11:34 WBC 10.72 H RBC Hgb 11.5 L Hct MCH MCHC 30.7 L RDW 16.2 H Plt Count Immature Gran # 0.12 H Neutrophils # Eosinophils # 1.15 H D-Dimer ABG pH ABG pCO2 ABG pO2 ABG Total CO2 Sodium Potassium Chloride Carbon Dioxide Anion Gap BUN Creatinine BUN/Creatinine Ratio Glucose POC Glucose (mg/dL) 207 H Phosphorus Total Protein Albumin Albumin/Globulin Ratio Urine Protein Ur Leukocyte Esterase Hyaline Casts Urine Mucus Assessment and Plan Plan: Assessment Acute on chronic hypoxemia. The patient is known to have COPD with chronic hypoxic respiratory failure. During this current admission, the oxygenation is slightly getting worse and the patient is currently on 5 L of O2 nasal cannula. This is prior related to postop atelectasis especially with her ongoing abdominal complications and her laying down. Pulmonary embolism is felt to be extremely less likely. No signs of failure. No signs of pneumonia. Will provide the patient incentive spirometer. Continue O2 at 5 L nasal cannula Diverticular abscess/perforated diverticulitis and the patient has undergone a ileocecectomy. The patient remains NPO. The patient remains on TPN for nutritional support. The patient remains on IV antibiotics and the patient is currently on IV Zosyn. N.p.o. and the patient remains on TPN for nutritional support Coronary artery disease with bypass surgery COPD, maintained on a combination of Symbicort and Spiriva on outpatient basis and this should albuterol rescue inhaler on a as needed basis. Hypertension Diabetes mellitus type 2 Previous history of coronary stents Plan In terms of the respiratory status, the patient will be monitored very closely. She is currently on 5 L of oxygen by nasal cannula. Continues incentive spirometer. Attempt to wean down FiO2 as tolerated. Continue IV Zosyn. Most recent CAT scan of the abdomen showed that the lung bases were essentially showing some atelectatic changes. There is no airspace disease or cons olidation. There is ongoing dilatation of the small bowel with air-fluid levels without any transition zone and this is consistent with ileus. Continue with supportive care. Will continue to follow up this patient along with rest of the consultants including the ones from general surgery and infectious disease.
[2024-06-21] MEDS: IV FLUID CONTINUATION 1,000 ML IV ONE (15:16)
[2024-06-21 15:18] LABS: Glucose,Whole Blood 179 mg/dL (70-110)
[2024-06-21] MEDS ORDERED: fentaNYL (PF) 50 MCG/ML 2 ML AMP ONE (15:53)
[2024-06-21] MEDS ORDERED: PROPOFOL 10 MG/ML 20 ML VIAL IV ONE (15:53)
[2024-06-21] MEDS ORDERED: SUCCINYLCHOLINE CHLORIDE 200 MG/10 ML VIAL IV ONE (15:53)
[2024-06-21] MEDS ORDERED: ROCURONIUM 10 MG/ML (5 ML VIAL) IV ONE (15:53)
[2024-06-21] MEDS ORDERED: MIDAZOLAM 2 MG/2 ML VIAL ONE (15:53)
[2024-06-21] MEDS: PIPERACILLIN-TAZOBACTAM 3.375 GM in SODIUM CHLORIDE 0.9% 100 ML IVPB SCH (17:04)
[2024-06-21] MEDS: LACTATED RINGERS 1,000 ML IV ONE (17:21)
[2024-06-21 19:41] LABS: Glucose,Whole Blood 317 mg/dL (70-110)
[2024-06-21 20:10] LABS: ABG Base Excess -2.7 mmol/L; ABG HCO3 25 mmol/L (21-25); ABG PCO2 55 mmHg (35-45); ABG PH 7.26 (7.35-7.45); ABG PO2 319 mmHg (83-108); ABG TCO2 27 mmol/L (19-24); Allen Test Performed? Yes
[2024-06-21 21:27] LABS: Glucose,Whole Blood 434 mg/dL (70-110)
[2024-06-21] MEDS: INSULIN DETEMIR (LEVEMIR) 100 UNIT/ML SYR SQ ONE (22:40)
[2024-06-22 05:19] LABS: ABG Base Excess -0.3 mmol/L; ABG HCO3 25 mmol/L (21-25); ABG PCO2 43 mmHg (35-45); ABG PH 7.37 (7.35-7.45); ABG PO2 127 mmHg (83-108); ABG TCO2 26 mmol/L (19-24); Allen Test Performed? Yes
[2024-06-22 06:26] LABS: Glucose,Whole Blood 356 mg/dL (70-110)
[2024-06-22 06:34] LABS: Anisocytosis Slight; Basophils # (A) 0.1 k/uL (0-0.2); Basophils % (A) 0 %; Eosinophils # (A) 0.8 k/uL (0-0.7); Eosinophils % (A) 3 %; HCT 39.8 % (34.0-46.0); HGB 12.4 gm/dL (11.4-16.0); Hypochromasia Moderate; Lymphocytes # (A) 1.2 k/uL (1.0-4.8); Lymphocytes % (A) 5 %; MCH 27.3 pg (25.0-35.0); MCHC 31.3 g/dL (31.0-37.0); MCV 87.1 fL (80.0-100.0); Mean Platelet Volume 9.6; Monocytes # (A) 0.9 k/uL (0-1.0); Monocytes % (A) 4 %; Neutrophils % (A) 86 %; Platelet Count 463 k/uL (150-450); Poikilocytosis Slight; RBC 4.57 m/uL (3.80-5.40); RDW 16.7 % (11.5-15.5); WBC 22.1 k/uL (3.8-10.6)
--- NOTE | 2024-06-22 06:37 | XR ---
EXAMINATION TYPE: XR chest 1V DATE OF EXAM: 06/22/2024 COMPARISON: 06/20/2024 HISTORY: Intubation TECHNIQUE: Single frontal view of the chest is obtained. FINDINGS: ET tube is 6.8 cm above the wayne. There is an NG tube within stomach. There is a right-sided PICC l ine terminating in the SVC/RA junction. . There are median sternotomy wires. The atelectasis in the right lung base has resolved. There are no airspace consolidations or abnormal interstitial density. There is no pleural effusion or pneumothorax. Heart and pulmonary vasculature are normal. IMPRESSION: 1. ET tube 6.8 cm above the wayne. 2. NG tube within the stomach. 3.No acute cardiopulmonary disease [facility], Workstation: [email or web address] 06/22/2024 6:34 AM
[2024-06-22 07:32] LABS: African American GFR (CKD) >90 (>60 ml/min/1.73 sqM); Anion Gap 10 mmol/L; Blood Urea Nitrogen 30 mg/dL (7-17); Calcium 9.1 mg/dL (8.4-10.2); Carbon Dioxide 24 mmol/L (22-30); Chloride 104 mmol/L (98-107); Glucose 332 mg/dL (74-99); Magnesium 2.1 mg/dL (1.6-2.3); Non-African American GFR(CKD) 80 (>60 ml/min/1.73 sqM); Phosphorus 5.6 mg/dL (2.5-4.5); Potassium 4.8 mmol/L (3.5-5.1); Sodium 138 mmol/L (137-145)
[2024-06-22] MEDS: DEXMEDETOMIDINE/0.9% NACL(PMX) 400 MCG in EMPTY BAG 1 BAG IV SCH (08:59)
--- NOTE | 2024-06-22 09:08 | P.PN ---
Subjective Progress Note Date: 06/22/24 Patient is a 53-year-old female with diabetes, hypertension, COPD, CABG with multiple stents most recently in November 2018 maintained on aspirin and Plavix presents with complaints of worsening abdominal pain. She was discharged from the hospital 2 days ago on Ceftin and Flagyl for colitis. During that hospital course her CT abdomen/pelvis revealed right-sided colitis she was started on IV Flagyl and ciprofloxacin and her WBCs trended down (11.5 to 8.21 on discharge). She endorsed improved pain throughout her stay and on the day of discharge she was asking to go home after she successfully ate lunch. During her stay her C. difficile PCR was negative. Endorses one episode of bloody emesis yesterday, and approximately 6 other episodes of non-bloody emesis since discharge but has had no vomiting since admission last night. Endorses compliance with medications since discharge. States pain is 6/10 right now but was 100/10 just before coming to ED. Denies current chest pain, shortness of breath, nausea, vomiting, hematochezia. Endorses right lower quadrant pain. CT abdomen/pelvis revealed inflammatory changes involving the cecum with adjacent 2.3 cm intramural wall abscess and reactive small bowel ileus. WBCs 12.3, hemoglobin 13.4, platelets 580. Urinalysis unremarkable. Afebrile, tachycardic since improved, hypertensive with systolic [id number]. 06/07. Patient seen and examined at bedside. She states that the pain is improved. Surgery consultedno intervention at this time. Endorses mild diarrhea starting. WBC 7.62. 06/08. Patient seen and examined lying comfortably on bed. She states the pain is significantly improved. Lab results pending. 06/09. Patient is evaluated in follow up today. She is resting in bed she is holding her abdomen and reporting pain to the RLQ. She is requesting IV pain medication. Noted that follow up abdominal pelvis CT done today reveals similar findings with abnormally thickened wall of the colon adjacent to the ileocecal valve region. Similar surrounding mild inflammatory fat stranding consider focal colitis. Suspected intramural abscess here is smaller at 1.8 cm vs. 2.5 cm previously. Normal appendix. New prominent fluid within the stomach. Fluid- filled small bowel loops are more numerous now. Consider worsening ileus. Trace pelvic free fluid redemonstrated. No free air. Potassium 5.3. today. 06/10. Patient seen and examined at bedside. Patient still with significant amount of pain on the right side of the abdomen as well as epigastric area. She is NPO. She endorses nausea. She denies fever, chest pain, shortness of breath. Infectious disease consulted. Labs unremarkable. 06/11. Patient seen and examined. Continues to complain of abdominal pain. Denies any nausea or vomiting, passing gas. 06/12. Patient seen and examined at bedside lying comfortably. Continues to complain of abdominal pain. Excited but nervous for surgery. Denies any nausea, vomiting, fever, chills. Endorses passing gas and 3 episodes of diarrhea today. Patient going to the operating room today. Midline was placed this morning. 06/13. Patient seen lying in bed. She is postop day 1 status post diagnostic laparoscopic abdominal washout converted to open with ileocecectomy with drain placement. She is complaining of abdominal pain and a lot of pressure in epigastric region. She has not passed flatus. 06/14. Patient seen and examined laying in bed. She is postop day 2 status post diagnostic laparoscopic abdominal washout converted to open with ileocecectomy with drain placement. She endorses improved abdominal pain with pressure in the epigastric region. She has not passed flatus. OSCAR drain is serosanguineous fluid. Potassium 2.9. TPN has been started. 06/15. Patient seen laying in bed. She is postop day 3 status post diagnostic laparoscopic abdominal washout converted to open with ileocecectomy with drain placement. She endorses improved abdominal pain and increased ambulation. She has not passed flatus. She is ambulating well around the unit. OSCAR drain is serosanguineous fluid. Potassium is 3.2. Endorses nausea and relief with Zofran. 06/16. Patient seen and examined. Currently on TPN, states she feels better. Denies any nausea or vomiting, complaining of on and off abdominal pain. 06/17. Patient seen laying in bed. Postop day 5. Endorses epigastric abdominal pain. Ambulating well around the unit. Not passing flatus. 06/18. Patient seen and examined. Patient had 1 episode of emesis this morning, states she feels much better after that. Patient not passing gas. No bowel movement yet. 06/19. Patient seen and examined at bedside. No flatus, no bowel movement. Had an NG tube placed overnight. 06/20. Patient seen at bedside. Passing flatus, had a bowel movement yesterday. Still with NG tube with 900 mL output. Multiple episodes of vomiting yesterday. Patient states she feels less distended. 06/21. Patient seen and examined lying in bed. Endorses worsened abdominal pain. Endorses mild chest pain relieved with sitting up, worsened laying flat. 06/22. Patient transferred to ICU yesterday status post intubation due to acute on chronic hypoxic respiratory failure. Labs: WBCs 22.1, hemoglobin 12.4, platelets 463, sodium 138, potassium 4.8, CO2 24, creatinine 0.83. Patient underwent exploratory laparotomy yesterday. ROS reviewed. Pertinent positives and negatives discussed above, a complete review of systems was performed and all the other systems were negative. Physical examination: Vital signs are stable. General: Currently intubated. Currently with an NG tube. HEENT: Head exam is unremarkable. ACs patent. Nares patent. Lungs: Bilateral breath sounds present; no rhonchi, wheezes, or rales. Heart: Rate and rhythm are regular. S1-S2 present. No murmur/rub/gallops. Abdomen: Bowel sounds present. Extremities: Trace edema present. Psych: Normal affect and mood. Cooperative. Assessment/Plan: Intramural wall abscess Right sided colitis Postop day 10 status post diagnostic laparoscopic abdominal washout converted to open with ileocecectomy with drain placement Continue TPN Surgery following Continue with Zosyn per infectious disease Ileus Postop day 1 exploratory laparotomy, small bowel resection x 2, colon resection, lysis of adhesions Surgery following NPO Continue with NG tube suction Encourage ambulation Acute on chronic hypoxic respiratory failure Currently intubatedwill attempt to extubate later today Hypokalemia, improved Monitor BMP Diabetes mellitus type 2 Insulin sliding scale Hypertension Continue Norvasc Hyperlipidemia Continue Lipitor COPD Continue Ventolin as needed Continue Symbicort Continue DuoNeb History of CABG and stents Continue aspirin Anxiety Continue Xanax as needed DVT prophylaxis: Subcutaneous heparin GI prophylaxis: Protonix Dr. Lito MD I have performed a history and physical examination and medical decision making of this patient, discussed the same with the the resident, and agree with the assessment and plan as written. I performed brief physical exam. Objective - Vital Signs Vital signs: Vital Signs Temp 97.9 F 06/22/24 04:00 Pulse 91 06/22/24 06:00 Resp 22 06/22/24 06:00 BP 135/89 06/22/24 06:00 Pulse Ox 94 L 06/22/24 06:00 FiO2 60 06/22/24 04:00 Intake & Output 06/21/24 06/21/24 06/22/24 06:59 18:59 06:59 Intake Total 1051 2240 273.269 Output Total 30 1755 Balance 1021 2240 -1481.731 Weight 91.8 kg Intake: IV 1200 Intake, IV Titration 1051 1040 273.269 Amount Mvi, Adult No.4 with Vit 1051 K 10 ml Trace (Conc-1Ml/ Dose) 1 ml Sodium Acetate 30 meq Potassium Acetate 20 meq Calcium Gluconate 1 gm Magnesium Sulfate gm 1 gm Potassium Phosphate 9 mmol In Amino Acids 5 %/Dextrose 20 % 1,000 ml @ 87 mls/hr IV . BY DURATION [facility] Rx#: [id number] Piperacillin-Tazobactam 3 100 .375 gm In Sodium Chloride 0.9% 100 ml @ 25 mls/hr IVPB Q8HR [facility] Rx# :[id number] Sodium Acetate 30 meq 1040 Potassium Acetate 20 meq Calcium Gluconate 1 gm Magnesium Sulfate gm 1 gm Potassium Phosphate 9 mmol In Amino Acids 5 %/ Dextrose 20 % 1,000 ml @ 87 mls/hr IV .BY DURATION [facility] Rx#:[id number] propofoL 1,000 mg In 173.269 Empty Bag 1 bag @ 15 MCG/ KG/MIN 8.165 mls/hr IV . [id number] [facility] Rx#:[id number] Output: Drainage 30 130 Left Lower Abdomen 30 130 Urine 1525 Estimated Blood Loss 100 Other: # Voids 2 - Labs CBC & Chem 7: 06/23/24 04:15 06/23/24 04:15 Labs: Abnormal Lab Results - Last 24 Hours (Table) 06/21/24 06/21/24 06/21/24 Range/Units 06:10 06:10 06:10 WBC 10.72 H (4.50-10.00) X 10*3/uL Hgb 11.5 L (12.0-15.0) g/dL MCHC 30.7 L (32.0-37.0) g/dL RDW 16.2 H (11.5-14.5) % Immature Gran # 0.12 H (0.00-0.04) X 10*3/uL Eosinophils # 1.15 H (0.04-0.35) X 10*3/uL ABG pH (7.35-7.45) ABG pCO2 (35-45) mmHg ABG pO2 (83-108) mmHg ABG Total CO2 (19-24) mmol/L ABG O2 Saturation (94-97) % Sodium 136 L (137-145) mmol/L BUN 19 H (7-17) mg/dL Creatinine 0.51 L (0.52-1.04) mg/dL Glucose 205 H (74-99) mg/dL POC Glucose (mg/dL) (70-110) mg/dL Triglycerides 170.00 H (0.00-149.00) mg/dL 06/21/24 06/21/24 06/21/24 Range/Units 11:34 15:16 19:39 WBC (4.50-10.00) X 10*3/uL Hgb (12.0-15.0) g/dL MCHC (32.0-37.0) g/dL RDW (11.5-14.5) % Immature Gran # (0.00-0.04) X 10*3/uL Eosinophils # (0.04-0.35) X 10*3/uL ABG pH (7.35-7.45) ABG pCO2 (35-45) mmHg ABG pO2 (83-108) mmHg ABG Total CO2 (19-24) mmol/L ABG O2 Saturation (94-97) % Sodium (137-145) mmol/L BUN (7-17) mg/dL Creatinine (0.52-1.04) mg/dL Glucose (74-99) mg/dL POC Glucose (mg/dL) 207 H 179 H 317 H (70-110) mg/dL Triglycerides (0.00-149.00) mg/dL 06/21/24 06/21/24 06/22/24 Range/Units 20:08 21:25 05:07 WBC (4.50-10.00) X 10*3/uL Hgb (12.0-15.0) g/dL MCHC (32.0-37.0) g/dL RDW (11.5-14.5) % Immature Gran # (0.00-0.04) X 10*3/uL Eosinophils # (0.04-0.35) X 10*3/uL ABG pH 7.26 L (7.35-7.45) ABG pCO2 55 H (35-45) mmHg ABG pO2 319 H 127 H (83-108) mmHg ABG Total CO2 27 H 26 H (19-24) mmol/L ABG O2 Saturation 99.0 H 98.0 H (94-97) % Sodium (137-145) mmol/L BUN (7-17) mg/dL Creatinine (0.52-1.04) mg/dL Glucose (74-99) mg/dL POC Glucose (mg/dL) 434 H (70-110) mg/dL Triglycerides (0.00-149.00) mg/dL
[2024-06-22 09:25] LABS: Glucose,Whole Blood 383 mg/dL (70-110)
[2024-06-22] MEDS: INSULIN DETEMIR (LEVEMIR) 100 UNIT/ML SYR SQ SCH (09:25)
[2024-06-22 12:06] LABS: Glucose,Whole Blood 280 mg/dL (70-110)
[2024-06-22] MEDS: HYDROcodone/APAP 10-325MG 1 EACH TAB PO PRN (12:46)
--- NOTE | 2024-06-22 13:01 | P.PN ---
Subjective Progress Note Date: 06/22/24 This is a 53-year-old female patient is being seen in consultation as the patient has noted to be more hypoxic during this current admission. The patient has been in the hospital since 06/06/2023 and the patient has a perforated diverticular abscess. The patient has undergone a diagnostic laparoscopy co nverted to open ileocecectomy and this was done on 06/14/2024. Since then, the patient has been kept NPO. NG tube still in place. No reported aspiration. Surgical site is dry clean and intact. The patient's output from the OSCAR drain is serosanguineous. The patient has no fever or chills. No hemodynamic instability. She is known to have COPD and she claims that she has been oxygen dependent at home somewhere between 2 to 3 L and she was using it only on a history basis. Her oxygen requirements have been gradually increasing and the patient is currently on 5 L of oxygen nasal cannula. She is using incentive spirometer. She is laying down in bed. Reviewed the most recent chest x-ray a nd it shows some atelectatic changes in lung bases bilaterally. Otherwise, there is no airspace's or consolidations. No chest pain. No pleurisy or hemoptysis. The patient has been maintained on heparin subcu for DVT prophylaxis throughout the admission. No swelling in lower extremities. No oth er complaints of respiratory distress for now. The white cell count of 10.7, hemoglobin 9.5 and a platelet count of 382. The patient's D-dimer is at 5.33 which is expectedly elevated. Sodium levels at 136, BUN is 19 with a creatinine of 0.51 and a potassium level is at 4. proBNP level is 115. She is awake and alert and she is communicating. On today's evaluation of 06/22/2024, the patient remains intubated on mechanical ventilator. The patient was taken to the operating room yesterday and the patient underwent small bowel resection, large bowel resection and lysis of adhesions. Post surgery, the patient was kept intubated the patient was brought into the ICU on propofol which is running at 50 mcg/kg/min. This morning, she is on assist-control mode of mechanical ventilation at rate of 18, tidal volume of 400, FiO2 50% with a PEEP of 5. The blood gas showed a pH of 7.37 with a pCO 2 of 43 and pO2 of 127. Chest x-ray shows some mild elevation of the right hemidiaphragm. Otherwise no other significant abnormalities. The patient remains on TPN for nutritional support at a rate of 35 cc an hour. The patient is also on Levemir insulin 15 units daily plus a sliding scale coverage and normal citrate of 75 cc an hour. The patient has a white cell count of 22, hemoglobin of 12.4 and platelet count of 463. Rest of the electrolytes are all within normal limits. BUN 30 with a creatinine of 0.8. She remains n.p.o. on TPN. No other significant events overnight. She is calm and comfortable at this point. IV antibiotics in the form of Zosyn. Objective - Vital Signs Vital signs: Vital Signs Temp 97.9 F 06/22/24 04:00 Pulse 92 06/22/24 07:10 Resp 24 06/22/24 07:10 BP 130/96 06/22/24 07:10 Pulse Ox 94 L 06/22/24 07:10 FiO2 60 06/22/24 04:00 Intake & Output 06/21/24 06/22/24 06/22/24 18:59 06:59 18:59 Intake Total 2240 273.269 Output Total 1755 50 Balance 2240 -1481.731 -50 Weight 91.8 kg Intake: IV 1200 Intake, IV Titration 1040 273.269 Amount Piperacillin-Tazobactam 3 100 .375 gm In Sodium Chloride 0.9% 100 ml @ 25 mls/hr IVPB Q8HR [facility] Rx# :[id number] Sodium Acetate 30 meq 1040 Potassium Acetate 20 meq Calcium Gluconate 1 gm Magnesium Sulfate gm 1 gm Potassium Phosphate 9 mmol In Amino Acids 5 %/ Dextrose 20 % 1,000 ml @ 87 mls/hr IV .BY DURATION [facility] Rx#:[id number] propofoL 1,000 mg In 173.269 Empty Bag 1 bag @ 15 MCG/ KG/MIN 8.165 mls/hr IV . [id number] [facility] Rx#:[id number] Output: Drainage 130 Left Lower Abdomen 130 Urine 1525 50 Estimated Blood Loss 100 - Exam General Appearance,, comfortable, currently on ventilator, on Propofol. Head exam was generally normal. There was no scleral icterus or corneal arcus. Mucous membranes were moist. Neck was supple and without jugular venous distension, thyromegaly, or carotid bruits. Carotids were easily palpable bilaterally. There was no adenopathy. The patient has an NG tube in place.The patient also has an orogastric tube in place. Lung sounds are diminished bilaterally specially the lung bases. No wheezes or rhonchi or crackles. Cardiac exam revealed the PMI to be normally situated and sized. The rhythm was regular and no extrasystoles were noted during several minutes of auscultation. The first and second heart sounds were normal and physiologic splitting of the second heart sound was noted. There were no murmurs, rubs, clicks, or gallops. Abdominal exam revealed no bowel sounds. The abdomen was soft, non-tender, and without masses, organomegaly, or appreciable enlargement of the abdominal aorta. Bowel sounds remain hypoactive and the patient has a mid abdominal incision. OSCAR drain is in place. The output from the OSCAR drain is essentially serous at this point. Examination of the extremities revealed easily palpable radial, femoral and pedal pulses. There was no cyanosis, clubbing or edema. Examination of the skin revealed no evidence of significant rashes, suspicious appearing nevi or other concerning lesions. Neurologically, the patient is sadated on the vent - Labs CBC & Chem 7: 06/22/24 05:25 06/22/24 05:25 Labs: Abnormal Lab Results - Last 24 Hours (Table) 06/21/24 06/21/24 06/21/24 Range/Units 06:10 06:10 11:34 WBC 10.72 H (4.50-10.00) X 10*3/uL Hgb 11.5 L (12.0-15.0) g/dL MCHC 30.7 L (32.0-37.0) g/dL RDW 16.2 H (11.5-14.5) % Plt Count (150-450) k/uL Immature Gran # 0.12 H (0.00-0.04) X 10*3/uL Neutrophils # (1.3-7.7) k/uL Eosinophils # 1.15 H (0.04-0.35) X 10*3/uL ABG pH (7.35-7.45) ABG pCO2 (35-45) mmHg ABG pO2 (83-108) mmHg ABG Total CO2 (19-24) mmol/L ABG O2 Saturation (94-97) % BUN (7-17) mg/dL Glucose (74-99) mg/dL POC Glucose (mg/dL) 207 H (70-110) mg/dL Phosphorus (2.5-4.5) mg/dL Triglycerides 170.00 H (0.00-149.00) mg/dL 06/21/24 06/21/24 06/21/24 Range/Units 15:16 19:39 20:08 WBC (4.50-10.00) X 10*3/uL Hgb (12.0-15.0) g/dL MCHC (32.0-37.0) g/dL RDW (11.5-14.5) % Plt Count (150-450) k/uL Immature Gran # (0.00-0.04) X 10*3/uL Neutrophils # (1.3-7.7) k/uL Eosinophils # (0.04-0.35) X 10*3/uL ABG pH 7.26 L (7.35-7.45) ABG pCO2 55 H (35-45) mmHg ABG pO2 319 H (83-108) mmHg ABG Total CO2 27 H (19-24) mmol/L ABG O2 Saturation 99.0 H (94-97) % BUN (7-17) mg/dL Glucose (74-99) mg/dL POC Glucose (mg/dL) 179 H 317 H (70-110) mg/dL Phosphorus (2.5-4.5) mg/dL Triglycerides (0.00-149.00) mg/dL 06/21/24 06/22/24 06/22/24 Range/Units 21:25 05:07 05:25 WBC (4.50-10.00) X 10*3/uL Hgb (12.0-15.0) g/dL MCHC (32.0-37.0) g/dL RDW (11.5-14.5) % Plt Count (150-450) k/uL Immature Gran # (0.00-0.04) X 10*3/uL Neutrophils # (1.3-7.7) k/uL Eosinophils # (0.04-0.35) X 10*3/uL ABG pH (7.35-7.45) ABG pCO2 (35-45) mmHg ABG pO2 127 H (83-108) mmHg ABG Total CO2 26 H (19-24) mmol/L ABG O2 Saturation 98.0 H (94-97) % BUN 30 H (7-17) mg/dL Glucose 332 H (74-99) mg/dL POC Glucose (mg/dL) 434 H (70-110) mg/dL Phosphorus 5.6 H (2.5-4.5) mg/dL Triglycerides (0.00-149.00) mg/dL 06/22/24 06/22/24 Range/Units 05:25 06:25 WBC 22.1 H (4.50-10.00) X 10*3/uL Hgb (12.0-15.0) g/dL MCHC (32.0-37.0) g/dL RDW 16.7 H (11.5-14.5) % Plt Count 463 H (150-450) k/uL Immature Gran # (0.00-0.04) X 10*3/uL Neutrophils # 19.0 H (1.3-7.7) k/uL Eosinophils # 0.8 H (0.04-0.35) X 10*3/uL ABG pH (7.35-7.45) ABG pCO2 (35-45) mmHg ABG pO2 (83-108) mmHg ABG Total CO2 (19-24) mmol/L ABG O2 Saturation (94-97) % BUN (7-17) mg/dL Glucose (74-99) mg/dL POC Glucose (mg/dL) 356 H (70-110) mg/dL Phosphorus (2.5-4.5) mg/dL Triglycerides (0.00-149.00) mg/dL Assessment and Plan Plan: Assessment Acute on chronic hypoxemia. The patient found to be hypoxic preoperatively. Postop, the patient was kept intubated on mechanical ventilator. For now, the chest x-ray and blood gas are adequate and the patient will be able to come off the mechanical ventilator without any major difficulties. Based on that, we w ill initiate the weaning process and protocol. I believe her baseline hypoxemia is related to some atelectatic changes in lung bases bilaterally. Diverticular abscess/perforated diverticulitis and the patient has undergone a ileocecectomy. The patient remains NPO. The patient remains on TPN for nutritional support. The patient remains on IV antibiotics and the patient is currently on IV Zosyn. The patient underwent a second exploratory laparotomy with lysis of adhesions small bowel resection and the patient is postop day #1 following the second surgery. N.p.o. and the patient remains on TPN for nutritional support Coronary artery disease with bypass surgery COPD, maintained on a combination of Symbicort and Spiriva on outpatient basis and this should albuterol rescue inhaler on a as needed basis. Hypertension Diabetes mellitus type 2 Previous history of coronary stents Plan Proceed with cutting down the and utilize propofol and utilize Precedex if needed. Check weaning parameters If the weaning parameters are adequate, we will proceed with a spontaneous breathing trial and anticipation for extubation today Continue IV fluids Continue TPN for nutritional support Continue IV Zosyn Moderate output from the OSCAR drain Provide the patient incentive parameter Titrate oxygen flow postextubation to maintain saturation above 90% General Surgery is on the case This is working progress and will continue to follow make further recommendations based on the progress. This evaluation was done more than 30 minutes. Time with Patient: Greater than 30
[2024-06-22] MEDS ORDERED: NALOXONE 0.4 MG/ML 1 ML VIAL IV PRN (14:32)
--- NOTE | 2024-06-22 14:35 | P.OP ---
Date of Procedure: 06/21/24 Preoperative Diagnosis: small bowel obstruction Postoperative Diagnosis: small bowel obstruction secondary to adhesions/inflammation Procedure(s) Performed: exploratory laparotomy, extensive lysis of adhesions greater than 1/3 of the case, small bowel resection x 2, proximal right colon resection Anesthesia: CHAYO Surgeon: Adrian Dubois Estimated Blood Loss (ml): 100 Pathology: other (small bowel and colon) Condition: critical Disposition: ICU Indications for Procedure: previous small perforated cecum and small bowel obstruction failed to progress Operative Findings: adhesions/narrowing of small bowel Description of Procedure: Patient was brought to the operative suite where she was cleaned and draped in sterile fashion. A timeout was performed and everyone agreed with the information recited. Next a number 10 blade was used to make an incision through the previous incision. A small amount of pus was encountered in the incision. This was cleaned and irrigated. We then cut the existing suture with scissors allowing us to get into the abdomen the incision was elongated both cephalad and caudal using electrocautery. The small bowel eviscerated and a significant amount was tuck in the right lower quadrant. The adhesions was taken down with a combination of blunt and sharp dissection. Given the patient's condition and failure to progress there were two questionable areas of obstruction 15 cm proximal to previous terminal ileum and the ileocolonic anastamosis. The remaining right colon was mobilized along the white line of todt. Once the bowel was freed, these two areas were resected and anastamosed respectively using 80 blue staple loads. A crotch stitch was made in both anastomotic sites. The mesentery was closed using 3-0 vicryl. The small bowel was ran one last time from liagment of treitz to the colon. The sigmoid colon and rectum was identified and appeared to be normal. The existing dieudonne drain was kept in place and the abdomen was irrigated with normal saline. The fascia was closed with two #1 loop pds sutures coming from opposing directions. The skin was closed loosely with iodoform guaze. The patient as transferred to pacu in stable condition.
--- NOTE | 2024-06-22 14:38 | P.ANPRN ---
Procedure Note - Anesthesia - Epidural/Spinal Epidural Continuous Time Out Performed: Yes Date of Procedure: 06/22/24 Procedure Start Time: 14:10 Procedure Stop Time: 14:30 Indication: Acute Post-Operative Pain, Requested by Surgeon Preparation: Sterile Dressing Position: Sitting Catheter: Indwelling Needle Guage: 18 Narrative: Patient with significant pain after ex lap. Extubated today. ICU team requested epidural. Pt on ASA and heparin sq. Discussed risks with pt and she wishes to proceed. Back prepped and draped. 1% lidocaine 3 ml infiltrated at T10. 18 G Touhey to PORTER to saline @ 6 cm. 20 G catheter inserted to 13 cm. Negative aspiration and test dose. Infusion started. Blood Aspirated: No Pain Paresthesia on Injection Noted: No Events: Uneventful and Well Tolerated
--- NOTE | 2024-06-22 14:48 | P.PN ---
Subjective Patient seen and evaluated at bedside. Patient complains of both abdominal pain and back pain. Denies nausea or vomiting. Objective - Vital Signs Vital signs: Vital Signs Temp 98.1 F 06/22/24 12:00 Pulse 80 06/22/24 12:00 Resp 17 06/22/24 12:00 BP 112/70 06/22/24 12:00 Pulse Ox 97 06/22/24 12:00 FiO2 50 06/22/24 09:03 Intake & Output 06/21/24 06/22/24 06/22/24 18:59 06:59 18:59 Intake Total 2240 784.135 7975.646 Output Total 1755 355 Balance 2240 -1481.731 687.646 Weight 91.8 kg Intake: IV 1200 515 Invasive Line 4 10 Invasive Line 5 10 Invasive Line 6 10 Invasive Line 7 10 Piperacillin-Tazobactam 3 100 .375 gm In Sodium Chloride 0.9% 100 ml @ 25 mls/hr IVPB Q8HR [facility] Rx# :[id number] Sodium Chloride 0.9% 1, 375 000 ml @ 75 mls/hr IV . [id number] [facility] Rx#:[id number] Intake, IV Titration 1040 273.269 92.646 Amount Dexmedetomidine/0.9% NaCl 3.290 (Pmx) 400 mcg In Empty Bag 1 bag @ 0.2 MCG/KG/HR 4.59 mls/hr IV .[id number] [facility] Rx#:[id number] Piperacillin-Tazobactam 3 100 .375 gm In Sodium Chloride 0.9% 100 ml @ 25 mls/hr IVPB Q8HR [facility] Rx# :[id number] Sodium Acetate 30 meq 1040 Potassium Acetate 20 meq Calcium Gluconate 1 gm Magnesium Sulfate gm 1 gm Potassium Phosphate 9 mmol In Amino Acids 5 %/ Dextrose 20 % 1,000 ml @ 87 mls/hr IV .BY DURATION [facility] Rx#:[id number] propofoL 1,000 mg In 173.269 89.356 Empty Bag 1 bag @ 15 MCG/ KG/MIN 8.165 mls/hr IV . [id number] [facility] Rx#:[id number] TPN/PPN 435 Mvi, Adult No.4 with Vit 435 K 10 ml Trace (Conc-1Ml/ Dose) 1 ml Sodium Acetate 30 meq Potassium Acetate 20 meq Calcium Gluconate 1 gm Magnesium Sulfate gm 1 gm Potassium Phosphate 9 mmol In Amino Acids 5 %/Dextrose 20 % 1,000 ml @ 87 mls/hr IV . BY DURATION [facility] Rx#: [id number] Output: Drainage 130 5 Left Lower Abdomen 130 5 Urine 1525 350 Estimated Blood Loss 100 Other: # Bowel Movements 0 - Exam gen: nad cv: rrr pul: non labored breathing, extubated abd; soft, tender to palpation, no guarding, surgical incisions c/d/i, dieudonne serosang, not peritoneal - Labs CBC & Chem 7: 06/22/24 05:25 06/22/24 05:25 Labs: Abnormal Lab Results - Last 24 Hours (Table) 06/21/24 06/21/24 06/21/24 Range/Units 06:10 15:16 19:39 WBC (3.8-10.6) k/uL RDW (11.5-15.5) % Plt Count (150-450) k/uL Neutrophils # (1.3-7.7) k/uL Eosinophils # (0-0.7) k/uL ABG pH (7.35-7.45) ABG pCO2 (35-45) mmHg ABG pO2 (83-108) mmHg ABG Total CO2 (19-24) mmol/L ABG O2 Saturation (94-97) % BUN (7-17) mg/dL Glucose (74-99) mg/dL POC Glucose (mg/dL) 179 H 317 H (70-110) mg/dL Phosphorus (2.5-4.5) mg/dL Triglycerides 170.00 H (0.00-149.00) mg/dL 06/21/24 06/21/24 06/22/24 Range/Units 20:08 21:25 05:07 WBC (3.8-10.6) k/uL RDW (11.5-15.5) % Plt Count (150-450) k/uL Neutrophils # (1.3-7.7) k/uL Eosinophils # (0-0.7) k/uL ABG pH 7.26 L (7.35-7.45) ABG pCO2 55 H (35-45) mmHg ABG pO2 319 H 127 H (83-108) mmHg ABG Total CO2 27 H 26 H (19-24) mmol/L ABG O2 Saturation 99.0 H 98.0 H (94-97) % BUN (7-17) mg/dL Glucose (74-99) mg/dL POC Glucose (mg/dL) 434 H (70-110) mg/dL Phosphorus (2.5-4.5) mg/dL Triglycerides (0.00-149.00) mg/dL 06/22/24 06/22/24 06/22/24 Range/Units 05:25 05:25 06:25 WBC 22.1 H (3.8-10.6) k/uL RDW 16.7 H (11.5-15.5) % Plt Count 463 H (150-450) k/uL Neutrophils # 19.0 H (1.3-7.7) k/uL Eosinophils # 0.8 H (0-0.7) k/uL ABG pH (7.35-7.45) ABG pCO2 (35-45) mmHg ABG pO2 (83-108) mmHg ABG Total CO2 (19-24) mmol/L ABG O2 Saturation (94-97) % BUN 30 H (7-17) mg/dL Glucose 332 H (74-99) mg/dL POC Glucose (mg/dL) 356 H (70-110) mg/dL Phosphorus 5.6 H (2.5-4.5) mg/dL Triglycerides (0.00-149.00) mg/dL 06/22/24 06/22/24 Range/Units 09:24 12:05 WBC (3.8-10.6) k/uL RDW (11.5-15.5) % Plt Count (150-450) k/uL Neutrophils # (1.3-7.7) k/uL Eosinophils # (0-0.7) k/uL ABG pH (7.35-7.45) ABG pCO2 (35-45) mmHg ABG pO2 (83-108) mmHg ABG Total CO2 (19-24) mmol/L ABG O2 Saturation (94-97) % BUN (7-17) mg/dL Glucose (74-99) mg/dL POC Glucose (mg/dL) 383 H 280 H (70-110) mg/dL Phosphorus (2.5-4.5) mg/dL Triglycerides (0.00-149.00) mg/dL Microbiology - Last 24 Hours (Table) 06/21/24 19:11 Gram Stain - Preliminary Abdomen Assessment and Plan Assessment: 53 yo female s/p extended ileocectomy and small bowel resection -npo, except meds -continue nasogastric tube -increase pain meds -continue maldonado please call with any questions [phone]
[2024-06-22] MEDS: SODIUM CHLORIDE 0.9% 1,000 ML IV ONE (14:50)
--- NOTE | 2024-06-22 16:41 | P.PN ---
Subjective Progress Note Date: 06/21/24 Principal diagnosis: Reason for follow-up is colitis/intra-abdominal abscess Patient is a 53-year-old female who recently did have multiple admission to the hospital regarding right sided abdominal pain has been diagnosed with colitis with intramural abscess failing outpatient oral antibiotic therapy. Patient is status post diagnostic laparoscopic abdominal washout converted to open laparotomy with loop cecectomy and drain placement On today's evaluation that is 06/21/2024, Patient is afebrile patient is currently on r 5 L nasal cannula oxygen and complaining of some shortness of breath but no chest pain or cough still complaining abdominal pain and nausea but no vomiting did have small bowel movement. Patient white count is 10.72 creatinine 0.51 abdominal x-ray excessive bowel gas present Objective - Vital Signs Vital signs: Vital Signs Temp 97.9 F 06/21/24 06:52 Pulse 96 06/21/24 13:08 Resp 18 06/21/24 08:44 BP 109/73 06/21/24 06:52 Pulse Ox 94 L 06/21/24 08:35 FiO2 Intake & Output 06/20/24 06/21/24 06/21/24 18:59 06:59 18:59 Intake Total 1040 Output Total 90 30 Balance 950 -30 Intake: Intake, IV Titration 1040 Amount Sodium Acetate 30 meq 1040 Potassium Acetate 20 meq Calcium Gluconate 1 gm Magnesium Sulfate gm 1 gm Potassium Phosphate 9 mmol In Amino Acids 5 %/ Dextrose 20 % 1,000 ml @ 87 mls/hr IV .BY DURATION [facility] Rx#:[id number] Output: Drainage 90 30 Left Lower Abdomen 90 30 Other: # Voids 3 2 # Bowel Movements 1 - Exam GENERAL DESCRIPTION: Middle-age female lying in bed in no distress RESPIRATORY SYSTEM: Unlabored breathing , decreased breath sounds at bases HEART: S1 S2 regular rate and rhythm , ABDOMEN: Soft , midline incision is currently intact minimal tenderness EXTREMITIES: No edema feet - Labs CBC & Chem 7: 06/21/24 06:10 06/21/24 06:10 Labs: Abnormal Lab Results - Last 24 Hours (Table) 06/20/24 06/20/24 06/20/24 Range/Units 17:03 19:38 22:02 WBC (4.50-10.00) X 10*3/uL Hgb (12.0-15.0) g/dL MCHC (32.0-37.0) g/dL RDW (11.5-14.5) % Immature Gran # (0.00-0.04) X 10*3/uL Eosinophils # (0.04-0.35) X 10*3/uL D-Dimer 5.33 H (<0.60) mg/L FEU ABG pH 7.52 H (7.35-7.45) ABG pCO2 30 L (35-45) mmHg ABG pO2 112 H (83-108) mmHg ABG Total CO2 25 H (19-24) mmol/L Sodium (137-145) mmol/L BUN (7-17) mg/dL Creatinine (0.52-1.04) mg/dL Glucose (74-99) mg/dL POC Glucose (mg/dL) 205 H (70-110) mg/dL 06/20/24 06/21/24 06/21/24 Range/Units 22:13 06:00 06:10 WBC (4.50-10.00) X 10*3/uL Hgb (12.0-15.0) g/dL MCHC (32.0-37.0) g/dL RDW (11.5-14.5) % Immature Gran # (0.00-0.04) X 10*3/uL Eosinophils # (0.04-0.35) X 10*3/uL D-Dimer (<0.60) mg/L FEU ABG pH (7.35-7.45) ABG pCO2 (35-45) mmHg ABG pO2 (83-108) mmHg ABG Total CO2 (19-24) mmol/L Sodium 136 L (137-145) mmol/L BUN 19 H (7-17) mg/dL Creatinine 0.51 L (0.52-1.04) mg/dL Glucose 205 H (74-99) mg/dL POC Glucose (mg/dL) 172 H 226 H (70-110) mg/dL 06/21/24 06/21/24 Range/Units 06:10 11:34 WBC 10.72 H (4.50-10.00) X 10*3/uL Hgb 11.5 L (12.0-15.0) g/dL MCHC 30.7 L (32.0-37.0) g/dL RDW 16.2 H (11.5-14.5) % Immature Gran # 0.12 H (0.00-0.04) X 10*3/uL Eosinophils # 1.15 H (0.04-0.35) X 10*3/uL D-Dimer (<0.60) mg/L FEU ABG pH (7.35-7.45) ABG pCO2 (35-45) mmHg ABG pO2 (83-108) mmHg ABG Total CO2 (19-24) mmol/L Sodium (137-145) mmol/L BUN (7-17) mg/dL Creatinine (0.52-1.04) mg/dL Glucose (74-99) mg/dL POC Glucose (mg/dL) 207 H (70-110) mg/dL Assessment and Plan (1) Colitis with abscess Current Visit: Yes Status: Acute Code(s): K52.9 - NONINFECTIVE GASTROENTERITIS AND COLITIS, UNSPECIFIED; K63.0 - ABSCESS OF INTESTINE SNOMED Code(s): 43275062 Plan: 1patient with a multiple admission to the hospital has been diagnosed with a colitis with intramural abscess that has failed outpatient oral Ceftin and Flagyl therapy with repeat CT did shows persistent features of colitis around the cecum with intramural abscess and slow clinical response to the medical therapy patient is status post laparotomy with ileocecectomy and drain placement unfortunately no cultures were done 2-patient remains to be afebrile,, patient did have CT with evidence of ileus did not mention any perforation or colitis abdominal x-rays with extensive bowel gas 3-patient has been restarted on Zosyn as it fell off automatically last evening care has been discussed with the resident physician and monitor clinical course closely Dictation was produced using [employer] software. please excuse any grammatical, word or spelling errors.
--- NOTE | 2024-06-22 16:44 | P.PN ---
Subjective Progress Note Date: 06/22/24 Principal diagnosis: Reason for follow-up is colitis/intra-abdominal abscess Patient is a 53-year-old female who recently did have multiple admission to the hospital regarding right sided abdominal pain has been diagnosed with colitis with intramural abscess failing outpatient oral antibiotic therapy. Patient is status post diagnostic laparoscopic abdominal washout converted to open laparotomy with loop cecectomy and drain placement. Patient was taken back to the OR patient is status post exploratory laparotomy, extensive lysis of adhesions greater than 1/3 of the case, small bowel resection x 2, proximal right colon resection completed on 06/22/2024 afternoon operative report did not mention any perforation or abscess. On today's evaluation that is 06/22/2024, patient did have a low-grade fever of 99.3 F patient is mildly hypotensive currently on 3 L nasal current oxygen P denies having any chest pain shortness of breath or cough still complaining of abdominal pain did have the NG. Patient white count is up to 22.1 creatinine is 0.83 sputum cultures obtained as well as abdominal cultures are pending Objective - Vital Signs Vital signs: Vital Signs Temp 98.1 F 06/22/24 12:00 Pulse 80 06/22/24 12:00 Resp 17 06/22/24 12:00 BP 112/70 06/22/24 12:00 Pulse Ox 97 06/22/24 12:00 FiO2 50 06/22/24 09:03 Intake & Output 06/21/24 06/22/24 06/22/24 18:59 06:59 18:59 Intake Total 2240 593.603 0661.646 Output Total 1755 355 Balance 2240 -1481.731 687.646 Weight 91.8 kg Intake: IV 1200 515 Invasive Line 4 10 Invasive Line 5 10 Invasive Line 6 10 Invasive Line 7 10 Piperacillin-Tazobactam 3 100 .375 gm In Sodium Chloride 0.9% 100 ml @ 25 mls/hr IVPB Q8HR [facility] Rx# :[id number] Sodium Chloride 0.9% 1, 375 000 ml @ 75 mls/hr IV . [id number] [facility] Rx#:[id number] Intake, IV Titration 1040 273.269 92.646 Amount Dexmedetomidine/0.9% NaCl 3.290 (Pmx) 400 mcg In Empty Bag 1 bag @ 0.2 MCG/KG/HR 4.59 mls/hr IV .[id number] [facility] Rx#:[id number] Piperacillin-Tazobactam 3 100 .375 gm In Sodium Chloride 0.9% 100 ml @ 25 mls/hr IVPB Q8HR [facility] Rx# :[id number] Sodium Acetate 30 meq 1040 Potassium Acetate 20 meq Calcium Gluconate 1 gm Magnesium Sulfate gm 1 gm Potassium Phosphate 9 mmol In Amino Acids 5 %/ Dextrose 20 % 1,000 ml @ 87 mls/hr IV .BY DURATION [facility] Rx#:[id number] propofoL 1,000 mg In 173.269 89.356 Empty Bag 1 bag @ 15 MCG/ KG/MIN 8.165 mls/hr IV . [id number] [facility] Rx#:[id number] TPN/PPN 435 Mvi, Adult No.4 with Vit 435 K 10 ml Trace (Conc-1Ml/ Dose) 1 ml Sodium Acetate 30 meq Potassium Acetate 20 meq Calcium Gluconate 1 gm Magnesium Sulfate gm 1 gm Potassium Phosphate 9 mmol In Amino Acids 5 %/Dextrose 20 % 1,000 ml @ 87 mls/hr IV . BY DURATION [facility] Rx#: [id number] Output: Drainage 130 5 Left Lower Abdomen 130 5 Urine 1525 350 Estimated Blood Loss 100 Other: # Bowel Movements 0 - Exam GENERAL DESCRIPTION: Middle-age female lying in bed in no distress RESPIRATORY SYSTEM: Unlabored breathing , decreased breath sounds at bases HEART: S1 S2 regular rate and rhythm , ABDOMEN: Soft , midline incision is currently intact minimal tenderness EXTREMITIES: No edema feet - Labs CBC & Chem 7: 06/22/24 05:25 06/22/24 05:25 Labs: Abnormal Lab Results - Last 24 Hours (Table) 06/21/24 06/21/24 06/21/24 Range/Units 06:10 15:16 19:39 WBC (3.8-10.6) k/uL RDW (11.5-15.5) % Plt Count (150-450) k/uL Neutrophils # (1.3-7.7) k/uL Eosinophils # (0-0.7) k/uL ABG pH (7.35-7.45) ABG pCO2 (35-45) mmHg ABG pO2 (83-108) mmHg ABG Total CO2 (19-24) mmol/L ABG O2 Saturation (94-97) % BUN (7-17) mg/dL Glucose (74-99) mg/dL POC Glucose (mg/dL) 179 H 317 H (70-110) mg/dL Phosphorus (2.5-4.5) mg/dL Triglycerides 170.00 H (0.00-149.00) mg/dL 06/21/24 06/21/24 06/22/24 Range/Units 20:08 21:25 05:07 WBC (3.8-10.6) k/uL RDW (11.5-15.5) % Plt Count (150-450) k/uL Neutrophils # (1.3-7.7) k/uL Eosinophils # (0-0.7) k/uL ABG pH 7.26 L (7.35-7.45) ABG pCO2 55 H (35-45) mmHg ABG pO2 319 H 127 H (83-108) mmHg ABG Total CO2 27 H 26 H (19-24) mmol/L ABG O2 Saturation 99.0 H 98.0 H (94-97) % BUN (7-17) mg/dL Glucose (74-99) mg/dL POC Glucose (mg/dL) 434 H (70-110) mg/dL Phosphorus (2.5-4.5) mg/dL Triglycerides (0.00-149.00) mg/dL 06/22/24 06/22/24 06/22/24 Range/Units 05:25 05:25 06:25 WBC 22.1 H (3.8-10.6) k/uL RDW 16.7 H (11.5-15.5) % Plt Count 463 H (150-450) k/uL Neutrophils # 19.0 H (1.3-7.7) k/uL Eosinophils # 0.8 H (0-0.7) k/uL ABG pH (7.35-7.45) ABG pCO2 (35-45) mmHg ABG pO2 (83-108) mmHg ABG Total CO2 (19-24) mmol/L ABG O2 Saturation (94-97) % BUN 30 H (7-17) mg/dL Glucose 332 H (74-99) mg/dL POC Glucose (mg/dL) 356 H (70-110) mg/dL Phosphorus 5.6 H (2.5-4.5) mg/dL Triglycerides (0.00-149.00) mg/dL 06/22/24 06/22/24 Range/Units 09:24 12:05 WBC (3.8-10.6) k/uL RDW (11.5-15.5) % Plt Count (150-450) k/uL Neutrophils # (1.3-7.7) k/uL Eosinophils # (0-0.7) k/uL ABG pH (7.35-7.45) ABG pCO2 (35-45) mmHg ABG pO2 (83-108) mmHg ABG Total CO2 (19-24) mmol/L ABG O2 Saturation (94-97) % BUN (7-17) mg/dL Glucose (74-99) mg/dL POC Glucose (mg/dL) 383 H 280 H (70-110) mg/dL Phosphorus (2.5-4.5) mg/dL Triglycerides (0.00-149.00) mg/dL Microbiology - Last 24 Hours (Table) 06/21/24 19:11 Gram Stain - Preliminary Abdomen Assessment and Plan (1) Colitis with abscess Current Visit: Yes Status: Acute Code(s): K52.9 - NONINFECTIVE GASTROENTERITIS AND COLITIS, UNSPECIFIED; K63.0 - ABSCESS OF INTESTINE SNOMED Code(s): 75936486 Plan: 1patient with a multiple admission to the hospital has been diagnosed with a colitis with intramural abscess that has failed outpatient oral Ceftin and Flagyl therapy with repeat CT did shows persistent features of colitis around the cecum with intramural abscess and slow clinical response to the medical therapy patient is status post laparotomy with ileocecectomy and drain placement unfortunately no cultures were done 2-patient remains to be afebrile,, patient did have CT with evidence of ileus did not mention any perforation or colitis abdominal x-rays with extensive bowel gas 3-patient taken back to the OR in this patient who is status post exploratory laparotomy resection of the portion of the bowel and abdominal culture have been obtained patient now have hypotension significant elevation of white count which could be reactive postsurgery we will repeat cultures continue with Zosyn adjust antibiotic further on the basis of the culture family at the bedside multiple question concern answered Dictation was produced using [employer] dictation software. please excuse any grammatical, word or spelling errors. Time with Patient: Less than 30
[2024-06-22] MEDS: ROPIVACAINE 250 MG, HYDROMORPHONE (PF) 5 MG in SODIUM CHLORIDE 0.9% 200 ML EPIDURAL PRN (16:45)
[2024-06-22 17:28] LABS: Glucose,Whole Blood 150 mg/dL (70-110)
[2024-06-22] MEDS: NOREPINEPHRINE 4 MG in SODIUM CHLORIDE 0.9% 250 ML IV SCH (18:49)
[2024-06-22 20:23] LABS: Glucose,Whole Blood 151 mg/dL (70-110)
[2024-06-23 05:00] LABS: African American GFR (CKD) >90 (>60 ml/min/1.73 sqM); Anion Gap 2 mmol/L; Blood Urea Nitrogen 25 mg/dL (7-17); Calcium 8.4 mg/dL (8.4-10.2); Carbon Dioxide 26 mmol/L (22-30); Chloride 112 mmol/L (98-107); Glucose 164 mg/dL (74-99); Magnesium 2.1 mg/dL (1.6-2.3); Non-African American GFR(CKD) >90 (>60 ml/min/1.73 sqM); Phosphorus 3.7 mg/dL (2.5-4.5); Potassium 3.7 mmol/L (3.5-5.1); Sodium 140 mmol/L (137-145)
[2024-06-23] MEDS ORDERED: Potassium Replacement Protocol 1 EACH MISC MISCELLANE PRN (05:01)
[2024-06-23] MEDS ORDERED: POTASSIUM CHLORIDE 10 MEQ in WATER FOR INJECTION 1 100ML.BAG IVPB SCH (05:15)
[2024-06-23 05:31] LABS: Anisocytosis Slight; Basophils # (A) 0.1 k/uL (0-0.2); Basophils % (A) 1 %; Eosinophils % (A) 6 %; HCT 28.2 % (34.0-46.0); Hypochromasia Moderate; Lymphocytes # (A) 2.2 k/uL (1.0-4.8); Lymphocytes % (A) 13 %; MCH 27.3 pg (25.0-35.0); MCHC 31.4 g/dL (31.0-37.0); MCV 86.9 fL (80.0-100.0); Mean Platelet Volume 9.8; Monocytes # (A) 1.1 k/uL (0-1.0); Monocytes % (A) 7 %; Neutrophils # (A) 12.2 k/uL (1.3-7.7); Neutrophils % (A) 73 %; Platelet Count 335 k/uL (150-450); Poikilocytosis Slight; RBC 3.25 m/uL (3.80-5.40); RDW 16.9 % (11.5-15.5); WBC 16.8 k/uL (3.8-10.6)
[2024-06-23 05:39] LABS: HGB 8.9 gm/dL (11.4-16.0)
[2024-06-23 06:26] LABS: Glucose,Whole Blood 160 mg/dL (70-110)
--- NOTE | 2024-06-23 06:51 | P.PN ---
Progress Note - Text Progress Note Date: 06/23/24 Patient much more comfortable following epidural placement 06/22. Pain /10. Denies weakness. Denies headache. Epidural @ 9 ml/hr. Epidural site clean and dry. A/P POD#2 w/p ex lap and bowel resection - continue epidural at current rate
[2024-06-23] MEDS ORDERED: INSULIN DETEMIR (LEVEMIR) 100 UNIT/ML SYR SQ SCH (07:00)
[2024-06-23] MEDS: METOPROLOL TARTRATE 12.5 MG TAB PO SCH (09:43)
[2024-06-23] MEDS: diphenhydrAMINE 50 MG/ML 1 ML VIAL IVP PRN (10:19)
[2024-06-23 11:52] LABS: Glucose,Whole Blood 184 mg/dL (70-110)
--- NOTE | 2024-06-23 12:40 | P.PN ---
Subjective Progress Note Date: 06/23/24 This is a 53-year-old female patient is being seen in consultation as the patient has noted to be more hypoxic during this current admission. The patient has been in the hospital since 06/06/2023 and the patient has a perforated diverticular abscess. The patient has undergone a diagnostic laparoscopy co nverted to open ileocecectomy and this was done on 06/14/2024. Since then, the patient has been kept NPO. NG tube still in place. No reported aspiration. Surgical site is dry clean and intact. The patient's output from the OSCAR drain is serosanguineous. The patient has no fever or chills. No hemodynamic instability. She is known to have COPD and she claims that she has been oxygen dependent at home somewhere between 2 to 3 L and she was using it only on a history basis. Her oxygen requirements have been gradually increasing and the patient is currently on 5 L of oxygen nasal cannula. She is using incentive spirometer. She is laying down in bed. Reviewed the most recent chest x-ray a nd it shows some atelectatic changes in lung bases bilaterally. Otherwise, there is no airspace's or consolidations. No chest pain. No pleurisy or hemoptysis. The patient has been maintained on heparin subcu for DVT prophylaxis throughout the admission. No swelling in lower extremities. No oth er complaints of respiratory distress for now. The white cell count of 10.7, hemoglobin 9.5 and a platelet count of 382. The patient's D-dimer is at 5.33 which is expectedly elevated. Sodium levels at 136, BUN is 19 with a creatinine of 0.51 and a potassium level is at 4. proBNP level is 115. She is awake and alert and she is communicating. On today's evaluation of 06/22/2024, the patient remains intubated on mechanical ventilator. The patient was taken to the operating room yesterday and the patient underwent small bowel resection, large bowel resection and lysis of adhesions. Post surgery, the patient was kept intubated the patient was brought into the ICU on propofol which is running at 50 mcg/kg/min. This morning, she is on assist-control mode of mechanical ventilation at rate of 18, tidal volume of 400, FiO2 50% with a PEEP of 5. The blood gas showed a pH of 7.37 with a pCO 2 of 43 and pO2 of 127. Chest x-ray shows some mild elevation of the right hemidiaphragm. Otherwise no other significant abnormalities. The patient remains on TPN for nutritional support at a rate of 35 cc an hour. The patient is also on Levemir insulin 15 units daily plus a sliding scale coverage and normal citrate of 75 cc an hour. The patient has a white cell count of 22, hemoglobin of 12.4 and platelet count of 463. Rest of the electrolytes are all within normal limits. BUN 30 with a creatinine of 0.8. She remains n.p.o. on TPN. No other significant events overnight. She is calm and comfortable at this point. IV antibiotics in the form of Zosyn. On 06/23/2024, patient is being seen for a follow-up. The patient was weaned off the mechanical ventilator and the patient was extubated yesterday without any major difficulties. Over the afternoon, the patient started having increased abdominal pain. Based on that, the patient was given epidural and currently she is under adequate pain control with epidural at 9 cc an hour with Dilaudid and bupivacaine. OSCAR drain output is minimal and serosanguineous. NG output has been more than 1 L over the past 12 to 24 hours. The patient remains on TPN at rate of 87 cc an hour normal citrate of 75 cc an hour. She is currently ext ubated on 3 L/min nasal cannula. The white cell count is 16.8 with hemoglobin 8.5 and a platelet count of 335. BUN is 25 with a creatinine of 0.7 and sodium levels at 140. On examination, she has no significant bowel sounds. Chest x- ray from yesterday was noted. There is some elevation of the right hemidiaphragm. Otherwise no other acute abnormalities noted. She was provided an incentive spirometer. Objective - Vital Signs Vital signs: Vital Signs Temp 100.4 F H 06/23/24 04:00 Pulse 93 06/23/24 07:44 Resp 9 L 06/23/24 07:00 BP 113/69 06/23/24 07:00 Pulse Ox 96 06/23/24 07:37 FiO2 50 06/22/24 09:03 Intake & Output 06/22/24 06/23/24 06/23/24 18:59 06:59 18:59 Intake Total 3585.446 1992.583 162 Output Total 1550 1145 150 Balance 2035.446 847.583 12 Weight 90.9 kg Intake: IV 2145 945 75 Invasive Line 4 30 30 Invasive Line 5 30 30 Invasive Line 6 30 30 Invasive Line 7 30 30 Piperacillin-Tazobactam 3 200 .375 gm In Sodium Chloride 0.9% 100 ml @ 25 mls/hr IVPB Q8HR [facility] Rx# :[id number] Sodium Chloride 0.9% 1, 825 825 75 000 ml @ 75 mls/hr IV . [id number] [facility] Rx#:[id number] Sodium Chloride 0.9% 1, 1000 000 ml @ 999 mls/hr IV . Q1H1M [facility] Rx#:[id number] Intake, IV Titration 156.446 90.583 Amount Dexmedetomidine/0.9% NaCl 56.190 (Pmx) 400 mcg In Empty Bag 1 bag @ 0.2 MCG/KG/HR 4.59 mls/hr IV .[id number] [facility] Rx#:[id number] Ropivacaine 250 mg 10.9 90.583 Hydromorphone (Pf) 5 mg In Sodium Chloride 0.9% 200 ml @ Per Protocol EPIDURAL .Q0M [facility] Rx#: [id number] propofoL 1,000 mg In 89.356 Empty Bag 1 bag @ 15 MCG/ KG/MIN 8.165 mls/hr IV . [id number] [facility] Rx#:[id number] Oral 240 TPN/PPN 1044 957 87 Mvi, Adult No.4 with Vit 1044 957 87 K 10 ml Trace (Conc-1Ml/ Dose) 1 ml Sodium Acetate 30 meq Potassium Acetate 20 meq Calcium Gluconate 1 gm Magnesium Sulfate gm 1 gm Potassium Phosphate 9 mmol In Amino Acids 5 %/Dextrose 20 % 1,000 ml @ 87 mls/hr IV . BY DURATION [facility] Rx#: [id number] Output: Gastric Drainage 550 Drainage 10 0 Left Lower Abdomen 10 0 Urine 940 1145 150 Oral Regurgitation 50 Other: Voiding Method Indwelling Catheter Indwelling Catheter # Bowel Movements 1 - Exam General Appearance,, comfortable, currently extubated on 3 L of oxygen by nasal cannula, the patient has an NG tube in place. Head exam was generally normal. There was no scleral icterus or corneal arcus. Mucous membranes were moist. Neck was supple and without jugular venous distension, thyromegaly, or carotid bruits. Carotids were easily palpable bilaterally. There was no adenopathy. The patient has an NG tube in place.The patient also has an orogastric tube in place. Lung sounds are diminished bilaterally specially the lung bases. No wheezes or rhonchi or crackles. There is some diminished breath sound right lung base Cardiac exam revealed the PMI to be normally situated and sized. The rhythm was regular and no extrasystoles were noted during several minutes of auscultation. The first and second heart sounds were normal and physiologic splitting of the second heart sound was noted. There were no murmurs, rubs, clicks, or gallops. Abdominal exam revealed no bowel sounds. The abdomen was soft, non-tender, and without masses, organomegaly, or appreciable enlargement of the abdominal aorta. Bowel sounds remain hypoactive and the patient has a mid abdominal incision. OSCAR drain is in place. The output from the OSCAR drain is essentially serous at t his point. Examination of the extremities revealed easily palpable radial, femoral and pedal pulses. There was no cyanosis, clubbing or edema. Examination of the skin revealed no evidence of significant rashes, suspicious appearing nevi or other concerning lesions. Neurologically, neurologically, the patient is awake and alert and the patient does not have any focal neurological deficit. Cranial nerves are essentially intact. - Labs CBC & Chem 7: 06/23/24 04:15 06/23/24 04:15 Labs: Abnormal Lab Results - Last 24 Hours (Table) 06/22/24 06/22/24 06/22/24 Range/Units : 12:05 17:27 WBC (3.8-10.6) k/uL RBC (3.80-5.40) m/uL Hgb (11.4-16.0) gm/dL Hct (34.0-46.0) % RDW (11.5-15.5) % Neutrophils # (1.3-7.7) k/uL Monocytes # (0-1.0) k/uL Eosinophils # (0-0.7) k/uL Chloride (98-107) mmol/L BUN (7-17) mg/dL Glucose (74-99) mg/dL POC Glucose (mg/dL) 383 H 280 H 150 H (70-110) mg/dL 06/22/24 06/23/24 06/23/24 Range/Units 20:22 04:15 04:15 WBC 16.8 H (3.8-10.6) k/uL RBC 3.25 L (3.80-5.40) m/uL Hgb 8.9 L D (11.4-16.0) gm/dL Hct 28.2 L (34.0-46.0) % RDW 16.9 H (11.5-15.5) % Neutrophils # 12.2 H (1.3-7.7) k/uL Monocytes # 1.1 H (0-1.0) k/uL Eosinophils # 1.0 H (0-0.7) k/uL Chloride 112 H (98-107) mmol/L BUN 25 H (7-17) mg/dL Glucose 164 H (74-99) mg/dL POC Glucose (mg/dL) 151 H (70-110) mg/dL 06/23/24 Range/Units 06:25 WBC (3.8-10.6) k/uL RBC (3.80-5.40) m/uL Hgb (11.4-16.0) gm/dL Hct (34.0-46.0) % RDW (11.5-15.5) % Neutrophils # (1.3-7.7) k/uL Monocytes # (0-1.0) k/uL Eosinophils # (0-0.7) k/uL Chloride (98-107) mmol/L BUN (7-17) mg/dL Glucose (74-99) mg/dL POC Glucose (mg/dL) 160 H (70-110) mg/dL Microbiology - Last 24 Hours (Table) 06/21/24 19:11 Gram Stain - Preliminary Abdomen Wound Culture - Preliminary Nilda albicans 06/22/24 00:25 Gram Stain - Preliminary Sputum Assessment and Plan Plan: Assessment Acute on chronic hypoxemia. The patient was hypoxic pre and postoperatively. She was successfully weaned off the mechanical ventilator and the patient is currently on 3 L of O2 by nasal cannula. She has some atelectatic change in lung bases and some elevation of the right hemidiaphragm. No major respiratory difficulties for now. Diverticular abscess/perforated diverticulitis and the patient has undergone a ileocecectomy. The patient remains NPO. The patient remains on TPN for nutritional support. The patient remains on IV antibiotics and the patient is currently on IV Zosyn. The patient underwent a second exploratory laparotomy with lysis of adhesions small bowel resection and the patient is postop day # 2 following the second surgery. Abdominal pain status post epidural pain control with bupivacaine and Dilaudid N.p.o. and the patient remains on TPN for nutritional support Coronary artery disease with bypass surgery COPD, maintained on a combination of Symbicort and Spiriva on outpatient basis and this should albuterol rescue inhaler on a as needed basis. Hypertension Diabetes mellitus type 2 Previous history of coronary stents Plan Encouraged use of incentive spirometer and the patient has been doing aggressive pulmonary toileting. Currently on 3 L of O2 nasal cannula. Continue IV fluids Continue TPN for nutritional support Continue IV Zosyn Moderate output from the OSCAR drain, minimal, serosanguineous NG output remains considerably elevated. Provide the patient incentive parameter Titrate oxygen flow postextubation to maintain saturation above 90% General Surgery is on the case Hold oral medication including Norvasc and Imdur and Farxiga. Utilize insulin/scale coverage for blood sugar control. The patient is also on Levemir insulin 16 units daily. This is working progress and will continue to follow make further recommendations based on the progress. This evaluation was done more than 30 minutes. Time with Patient: Greater than 30
--- NOTE | 2024-06-23 14:15 | P.PN ---
Subjective patient seen and evaluated bedside. Patient doing well denies abdominal pain denies nausea vomiting. Objective - Vital Signs Vital signs: Vital Signs Temp 99.8 F H 06/23/24 12:00 Pulse 93 06/23/24 13:00 Resp 20 06/23/24 13:00 BP 120/64 06/23/24 13:00 Pulse Ox 93 L 06/23/24 13:00 FiO2 50 06/22/24 09:03 Intake & Output 06/22/24 06/23/24 06/23/24 18:59 06:59 18:59 Intake Total 3585.446 9344.928 7570 Output Total 1550 1145 900 Balance 2035.446 847.583 394 Weight 90.9 kg Intake: IV 2145 945 625 Invasive Line 4 30 30 Invasive Line 5 30 30 Invasive Line 6 30 30 Invasive Line 7 30 30 Piperacillin-Tazobactam 3 200 100 .375 gm In Sodium Chloride 0.9% 100 ml @ 25 mls/hr IVPB Q8HR [facility] Rx# :[id number] Sodium Chloride 0.9% 1, 825 825 525 000 ml @ 75 mls/hr IV . [id number] [facility] Rx#:[id number] Sodium Chloride 0.9% 1, 1000 000 ml @ 999 mls/hr IV . Q1H1M [facility] Rx#:[id number] Intake, IV Titration 156.446 90.583 Amount Dexmedetomidine/0.9% NaCl 56.190 (Pmx) 400 mcg In Empty Bag 1 bag @ 0.2 MCG/KG/HR 4.59 mls/hr IV .[id number] [facility] Rx#:[id number] Ropivacaine 250 mg 10.9 90.583 Hydromorphone (Pf) 5 mg In Sodium Chloride 0.9% 200 ml @ Per Protocol EPIDURAL .Q0M [facility] Rx#: [id number] propofoL 1,000 mg In 89.356 Empty Bag 1 bag @ 15 MCG/ KG/MIN 8.165 mls/hr IV . [id number] [facility] Rx#:[id number] Oral 240 TPN/PPN 1044 957 609 Mvi, Adult No.4 with Vit 1044 957 609 K 10 ml Trace (Conc-1Ml/ Dose) 1 ml Sodium Acetate 30 meq Potassium Acetate 20 meq Calcium Gluconate 1 gm Magnesium Sulfate gm 1 gm Potassium Phosphate 9 mmol In Amino Acids 5 %/Dextrose 20 % 1,000 ml @ 87 mls/hr IV . BY DURATION [facility] Rx#: [id number] Other 60 Output: Gastric Drainage 550 Drainage 10 0 Left Lower Abdomen 10 0 Urine 940 1145 900 Oral Regurgitation 50 Other: Voiding Method Indwelling Catheter Indwelling Catheter Indwelling Catheter # Bowel Movements 1 - Exam general he distress alert and oriented 3 Cardiovascular regular rate and rhythm Pulmonary nonlabored breathing Abdomen is soft, nondistended, minimally tender to palpation surgical incisions are clean dry and intact OSCAR drain producing minimal output - Labs CBC & Chem 7: 06/23/24 04:15 06/23/24 04:15 Labs: Abnormal Lab Results - Last 24 Hours (Table) 06/22/24 06/22/24 06/23/24 Range/Units 17:27 20:22 04:15 WBC (3.8-10.6) k/uL RBC (3.80-5.40) m/uL Hgb (11.4-16.0) gm/dL Hct (34.0-46.0) % RDW (11.5-15.5) % Neutrophils # (1.3-7.7) k/uL Monocytes # (0-1.0) k/uL Eosinophils # (0-0.7) k/uL Chloride 112 H (98-107) mmol/L BUN 25 H (7-17) mg/dL Glucose 164 H (74-99) mg/dL POC Glucose (mg/dL) 150 H 151 H (70-110) mg/dL 06/23/24 06/23/24 06/23/24 Range/Units 04:15 06:25 11:50 WBC 16.8 H (3.8-10.6) k/uL RBC 3.25 L (3.80-5.40) m/uL Hgb 8.9 L D (11.4-16.0) gm/dL Hct 28.2 L (34.0-46.0) % RDW 16.9 H (11.5-15.5) % Neutrophils # 12.2 H (1.3-7.7) k/uL Monocytes # 1.1 H (0-1.0) k/uL Eosinophils # 1.0 H (0-0.7) k/uL Chloride (98-107) mmol/L BUN (7-17) mg/dL Glucose (74-99) mg/dL POC Glucose (mg/dL) 160 H 184 H (70-110) mg/dL Microbiology - Last 24 Hours (Table) 06/22/24 00:25 Gram Stain - Preliminary Sputum Sputum Culture - Preliminary Gram Neg Bacilli 06/21/24 19:11 Gram Stain - Preliminary Abdomen Wound Culture - Preliminary Nilda albicans Assessment and Plan Assessment: 53 yo female s/p extended ileocectomy and small bowel resection -npo, except meds -continue nasogastric tube -will remove some of the packing this am -repeat hgb now, acute blood loss anemia -continue maldonado please call with any questions [phone] Time with Patient: Less than 30
[2024-06-23 14:22] LABS: Anisocytosis Slight; Basophils % (A) 0 %; Eosinophils # (A) 1.3 k/uL (0-0.7); Eosinophils % (A) 8 %; HCT 29.6 % (34.0-46.0); Hypochromasia Marked; Lymphocytes # (A) 1.9 k/uL (1.0-4.8); Lymphocytes % (A) 13 %; MCH 26.9 pg (25.0-35.0); MCHC 30.3 g/dL (31.0-37.0); MCV 88.9 fL (80.0-100.0); Mean Platelet Volume 8.4; Monocytes % (A) 7 %; Neutrophils # (A) 10.6 k/uL (1.3-7.7); Neutrophils % (A) 70 %; Platelet Count 338 k/uL (150-450); RBC 3.33 m/uL (3.80-5.40); RDW 16.9 % (11.5-15.5); WBC 15.2 k/uL (3.8-10.6)
--- NOTE | 2024-06-23 15:20 | P.PN ---
Subjective Progress Note Date: 06/23/24 Principal diagnosis: Reason for follow-up is colitis/intra-abdominal abscess Patient is a 53-year-old female who recently did have multiple admission to the hospital regarding right sided abdominal pain has been diagnosed with colitis with intramural abscess failing outpatient oral antibiotic therapy. Patient is status post diagnostic laparoscopic abdominal washout converted to open laparotomy with loop cecectomy and drain placement. Patient was taken back to the OR patient is status post exploratory laparotomy, extensive lysis of adhesions greater than 1/3 of the case, small bowel resection x 2, proximal right colon resection completed on 06/22/2024 afternoon operative report did not mention any perforation or abscess. On today's evaluation that is 06/23/2024, Patient did have low-grade fever of 99.8 F at noon patient denies having any chest pain shortness of breath or cough, the patient is breathing comfortably on 3 L current oxygen patient denies any nausea or vomiting still have the NG in abdominal pain is controlled with the pain medication. Patient white count is down to 15.2 creatinine 0.72 abdominal culture growing Nilda albicans sputum is growing gram-negative Objective - Vital Signs Vital signs: Vital Signs Temp 99.8 F H 06/23/24 12:00 Pulse 93 06/23/24 15:00 Resp 19 06/23/24 15:00 BP 111/73 06/23/24 15:00 Pulse Ox 94 L 06/23/24 14:00 FiO2 50 06/22/24 09:03 Intake & Output 06/22/24 06/23/24 06/23/24 18:59 06:59 18:59 Intake Total 3585.446 5245.328 1327 Output Total 1550 1145 1525 Balance 2035.446 847.583 93 Weight 90.9 kg Intake: IV 2145 945 775 Invasive Line 4 30 30 Invasive Line 5 30 30 Invasive Line 6 30 30 Invasive Line 7 30 30 Piperacillin-Tazobactam 3 200 100 .375 gm In Sodium Chloride 0.9% 100 ml @ 25 mls/hr IVPB Q8HR [facility] Rx# :[id number] Sodium Chloride 0.9% 1, 825 825 675 000 ml @ 75 mls/hr IV . [id number] [facility] Rx#:[id number] Sodium Chloride 0.9% 1, 1000 000 ml @ 999 mls/hr IV . Q1H1M [facility] Rx#:[id number] Intake, IV Titration 156.446 90.583 Amount Dexmedetomidine/0.9% NaCl 56.190 (Pmx) 400 mcg In Empty Bag 1 bag @ 0.2 MCG/KG/HR 4.59 mls/hr IV .[id number] [facility] Rx#:[id number] Ropivacaine 250 mg 10.9 90.583 Hydromorphone (Pf) 5 mg In Sodium Chloride 0.9% 200 ml @ Per Protocol EPIDURAL .Q0M [facility] Rx#: [id number] propofoL 1,000 mg In 89.356 Empty Bag 1 bag @ 15 MCG/ KG/MIN 8.165 mls/hr IV . [id number] [facility] Rx#:[id number] Oral 240 TPN/PPN 1044 957 783 Mvi, Adult No.4 with Vit 1044 957 783 K 10 ml Trace (Conc-1Ml/ Dose) 1 ml Sodium Acetate 30 meq Potassium Acetate 20 meq Calcium Gluconate 1 gm Magnesium Sulfate gm 1 gm Potassium Phosphate 9 mmol In Amino Acids 5 %/Dextrose 20 % 1,000 ml @ 87 mls/hr IV . BY DURATION [facility] Rx#: [id number] Other 60 Output: Gastric Drainage 550 500 Drainage 10 0 0 Left Lower Abdomen 10 0 0 Urine 940 1145 1025 Oral Regurgitation 50 Other: Voiding Method Indwelling Catheter Indwelling Catheter Indwelling Catheter # Bowel Movements 1 - Exam GENERAL DESCRIPTION: Middle-age female lying in bed in no distress RESPIRATORY SYSTEM: Unlabored breathing , decreased breath sounds at bases HEART: S1 S2 regular rate and rhythm , ABDOMEN: Soft , midline incision is currently intact minimal tenderness EXTREMITIES: No edema feet - Labs CBC & Chem 7: 06/23/24 14:09 06/23/24 04:15 Labs: Abnormal Lab Results - Last 24 Hours (Table) 06/22/24 06/22/24 06/23/24 Range/Units 17:27 20:22 04:15 WBC (3.8-10.6) k/uL RBC (3.80-5.40) m/uL Hgb (11.4-16.0) gm/dL Hct (34.0-46.0) % MCHC (31.0-37.0) g/dL RDW (11.5-15.5) % Neutrophils # (1.3-7.7) k/uL Monocytes # (0-1.0) k/uL Eosinophils # (0-0.7) k/uL Chloride 112 H (98-107) mmol/L BUN 25 H (7-17) mg/dL Glucose 164 H (74-99) mg/dL POC Glucose (mg/dL) 150 H 151 H (70-110) mg/dL 06/23/24 06/23/24 06/23/24 Range/Units 04:15 06:25 11:50 WBC 16.8 H (3.8-10.6) k/uL RBC 3.25 L (3.80-5.40) m/uL Hgb 8.9 L D (11.4-16.0) gm/dL Hct 28.2 L (34.0-46.0) % MCHC (31.0-37.0) g/dL RDW 16.9 H (11.5-15.5) % Neutrophils # 12.2 H (1.3-7.7) k/uL Monocytes # 1.1 H (0-1.0) k/uL Eosinophils # 1.0 H (0-0.7) k/uL Chloride (98-107) mmol/L BUN (7-17) mg/dL Glucose (74-99) mg/dL POC Glucose (mg/dL) 160 H 184 H (70-110) mg/dL 06/23/24 Range/Units 14:09 WBC 15.2 H (3.8-10.6) k/uL RBC 3.33 L (3.80-5.40) m/uL Hgb 9.0 L (11.4-16.0) gm/dL Hct 29.6 L (34.0-46.0) % MCHC 30.3 L (31.0-37.0) g/dL RDW 16.9 H (11.5-15.5) % Neutrophils # 10.6 H (1.3-7.7) k/uL Monocytes # (0-1.0) k/uL Eosinophils # 1.3 H (0-0.7) k/uL Chloride (98-107) mmol/L BUN (7-17) mg/dL Glucose (74-99) mg/dL POC Glucose (mg/dL) (70-110) mg/dL Microbiology - Last 24 Hours (Table) 06/22/24 00:25 Gram Stain - Preliminary Sputum Sputum Culture - Preliminary Gram Neg Bacilli 06/21/24 19:11 Gram Stain - Preliminary Abdomen Wound Culture - Preliminary Nilda albicans Assessment and Plan (1) Colitis with abscess Current Visit: Yes Status: Acute Code(s): K52.9 - NONINFECTIVE GASTROENTERITIS AND COLITIS, UNSPECIFIED; K63.0 - ABSCESS OF INTESTINE SNOMED Code(s): 94977356 Plan: 1patient with a multiple admission to the hospital has been diagnosed with a colitis with intramural abscess that has failed outpatient oral Ceftin and Flagyl therapy with repeat CT did shows persistent features of colitis around the cecum with intramural abscess and slow clinical response to the medical therapy patient is status post laparotomy with ileocecectomy and drain placement unfortunately no cultures were done 2-patient remains to be afebrile,, patient did have CT with evidence of ileus did not mention any perforation or colitis abdominal x-rays with extensive bowel gas 3-patient taken back to the OR in this patient who is status post exploratory laparotomy resection of the portion of the bowel and abdominal culture currently growing Nilda 4patient is running a fever did have a little white count we will add Eraxis as we cannot use Diflucan because of drug interaction with other medication patient is on continue with Zosyn we will repeat a CBC and monitor clinical course closely Dictation was produced using [employer] dictation software. please excuse any grammatical, word or spelling errors.
[2024-06-23] MEDS: ANIDULAFUNGIN 200 MG in SODIUM CHLORIDE 0.9% 200 ML IVPB ONE (17:14)
[2024-06-23 18:01] LABS: Glucose,Whole Blood 205 mg/dL (70-110)
[2024-06-23] MEDS: INSULIN ASPART (NovoLOG) 100 UNIT/ML VIAL SQ SCH (19:03)
--- NOTE | 2024-06-23 19:24 | P.PN ---
Subjective Progress Note Date: 06/23/24 Patient is a 53-year-old female with diabetes, hypertension, COPD, CABG with multiple stents most recently in November 2018 maintained on aspirin and Plavix presents with complaints of worsening abdominal pain. She was discharged from the hospital 2 days ago on Ceftin and Flagyl for colitis. During that hospital course her CT abdomen/pelvis revealed right-sided colitis she was started on IV Flagyl and ciprofloxacin and her WBCs trended down (11.5 to 8.21 on discharge). She endorsed improved pain throughout her stay and on the day of discharge she was asking to go home after she successfully ate lunch. During her stay her C. difficile PCR was negative. Endorses one episode of bloody emesis yesterday, and approximately 6 other episodes of non-bloody emesis since discharge but has had no vomiting since admission last night. Endorses compliance with medications since discharge. States pain is 6/10 right now but was 100/10 just before coming to ED. Denies current chest pain, shortness of breath, nausea, vomiting, hematochezia. Endorses right lower quadrant pain. CT abdomen/pelvis revealed inflammatory changes involving the cecum with adjacent 2.3 cm intramural wall abscess and reactive small bowel ileus. WBCs 12.3, hemoglobin 13.4, platelets 580. Urinalysis unremarkable. Afebrile, tachycardic since improved, hypertensive with systolic [id number]. 06/07. Patient seen and examined at bedside. She states that the pain is improved. Surgery consultedno intervention at this time. Endorses mild diarrhea starting. WBC 7.62. 06/08. Patient seen and examined lying comfortably on bed. She states the pain is significantly improved. Lab results pending. 06/09. Patient is evaluated in follow up today. She is resting in bed she is holding her abdomen and reporting pain to the RLQ. She is requesting IV pain medication. Noted that follow up abdominal pelvis CT done today reveals similar findings with abnormally thickened wall of the colon adjacent to the ileocecal valve region. Similar surrounding mild inflammatory fat stranding consider focal colitis. Suspected intramural abscess here is smaller at 1.8 cm vs. 2.5 cm previously. Normal appendix. New prominent fluid within the stomach. Fluid- filled small bowel loops are more numerous now. Consider worsening ileus. Trace pelvic free fluid redemonstrated. No free air. Potassium 5.3. today. 06/10. Patient seen and examined at bedside. Patient still with significant amount of pain on the right side of the abdomen as well as epigastric area. She is NPO. She endorses nausea. She denies fever, chest pain, shortness of breath. Infectious disease consulted. Labs unremarkable. 06/11. Patient seen and examined. Continues to complain of abdominal pain. Denies any nausea or vomiting, passing gas. 06/12. Patient seen and examined at bedside lying comfortably. Continues to complain of abdominal pain. Excited but nervous for surgery. Denies any nausea, vomiting, fever, chills. Endorses passing gas and 3 episodes of diarrhea today. Patient going to the operating room today. Midline was placed this morning. 06/13. Patient seen lying in bed. She is postop day 1 status post diagnostic laparoscopic abdominal washout converted to open with ileocecectomy with drain placement. She is complaining of abdominal pain and a lot of pressure in epigastric region. She has not passed flatus. 06/14. Patient seen and examined laying in bed. She is postop day 2 status post diagnostic laparoscopic abdominal washout converted to open with ileocecectomy with drain placement. She endorses improved abdominal pain with pressure in the epigastric region. She has not passed flatus. OSCAR drain is serosanguineous fluid. Potassium 2.9. TPN has been started. 06/15. Patient seen laying in bed. She is postop day 3 status post diagnostic laparoscopic abdominal washout converted to open with ileocecectomy with drain placement. She endorses improved abdominal pain and increased ambulation. She has not passed flatus. She is ambulating well around the unit. OSCAR drain is serosanguineous fluid. Potassium is 3.2. Endorses nausea and relief with Zofran. 06/16. Patient seen and examined. Currently on TPN, states she feels better. Denies any nausea or vomiting, complaining of on and off abdominal pain. 06/17. Patient seen laying in bed. Postop day 5. Endorses epigastric abdominal pain. Ambulating well around the unit. Not passing flatus. 06/18. Patient seen and examined. Patient had 1 episode of emesis this morning, states she feels much better after that. Patient not passing gas. No bowel movement yet. 06/19. Patient seen and examined at bedside. No flatus, no bowel movement. Had an NG tube placed overnight. 06/20. Patient seen at bedside. Passing flatus, had a bowel movement yesterday. Still with NG tube with 900 mL output. Multiple episodes of vomiting yesterday. Patient states she feels less distended. 06/21. Patient seen and examined lying in bed. Endorses worsened abdominal pain. Endorses mild chest pain relieved with sitting up, worsened laying flat. 06/22. Patient transferred to ICU yesterday status post intubation due to acute on chronic hypoxic respiratory failure. Labs: WBCs 22.1, hemoglobin 12.4, platelets 463, sodium 138, potassium 4.8, CO2 24, creatinine 0.83. Patient underwent exploratory laparotomy yesterday. 06/23/2024 Patient is evaluated today in the intensive care unit awake alert and oriented. Postoperative day #2 exploratory laproscopy and bowel resection. Patient received an epidural yesterday; states the pain level is manageable today and significantly improved. Patient with NG tube in place and per nursing staff was sucking water of the oral swabs and had increased gastric output because of it. Those were changed out to the lemon glycerin swabs. White blood cell count 16.8, hgb 8.9, Na -140, BUN 25, creatinine 0.72. Review of Systems Constitutional: Denied any fatigue denied any fever. Cardio vascular: denied any chest pain, palpitations Gastrointestinal: denied any nausea, vomiting, diarrhea. Reports abdominal pain, improved. Pulmonary: Denied any shortness of breath cough Neurologic denied any new focal deficits All inpatient medications were reviewed and appropriate changes in these medic ations as dictated in the interval history and assessment and plan. PHYSICAL EXAMINATION: GENERAL: The patient is alert and oriented x3, not in any acute distress. Well developed, well nourished. HEENT: Pupils are round and equally reacting to light. EOMI. No scleral icterus. No conjunctival pallor. Normocephalic, atraumatic. No pharyngeal erythema. No thyromegaly. CARDIOVASCULAR: S1 and S2 present. No murmurs, rubs, or gallops. PULMONARY: Chest is clear to auscultation, no wheezing or crackles. ABDOMEN: Soft, tender, nondistended, normoactive bowel sounds. No palpable organomegaly. Wound vac in place with bloody drainage noted in the canister. NG tube in place. MUSCULOSKELETAL: No joint swelling or deformity. EXTREMITIES: No cyanosis, clubbing, or pedal edema. NEUROLOGICAL: Gross neurological examination did not reveal any focal deficits. SKIN: No rashes. Assessment/Plan: Intramural wall abscess Right sided colitis Postop day 11 status post diagnostic laparoscopic abdominal washout converted to open with ileocecectomy with drain placement Continue TPN Surgery following Continue with Zosyn per infectious disease Ileus Postop day 2 exploratory laparotomy, small bowel resection x 2, colon resection, lysis of adhesions Surgery following NPO Continue with NG tube suction Encourage ambulation Acute on chronic hypoxic respiratory failure Successfully extubated and currently on 3 L nasal cannula Hypokalemia, improved Monitor BMP Diabetes mellitus type 2 Insulin sliding scale Accuchecks ACHS Hypertension Continue Norvasc Hyperlipidemia Continue Lipitor COPD Continue Ventolin as needed Continue Symbicort Continue DuoNeb History of CABG and stents Continue aspirin Anxiety Continue Xanax as needed DVT prophylaxis: Subcutaneous heparin GI prophylaxis: Protonix The impression and plan of care has been dictated by Violetta Maya Nurse Practitioner as directed. Dr. Lito MD I have performed a history and physical examination and medical decision making of this patient, discussed the same with the dictator, and agree with the d ictators assessment and plan as written, documented as a scribe. Based on total visit time, I have performed more than 50% of this visit. Objective - Vital Signs Vital signs: Vital Signs Temp 99.1 F 06/23/24 08:00 Pulse 87 06/23/24 09:00 Resp 16 06/23/24 09:00 BP 97/57 06/23/24 09:00 Pulse Ox 92 L 06/23/24 09:00 FiO2 50 06/22/24 09:03 Intake & Output 06/22/24 06/23/24 06/23/24 18:59 06:59 18:59 Intake Total 3585.446 1992.583 586 Output Total 1550 1145 250 Balance 2035.446 847.583 336 Weight 90.9 kg Intake: IV 2145 945 325 Invasive Line 4 30 30 Invasive Line 5 30 30 Invasive Line 6 30 30 Invasive Line 7 30 30 Piperacillin-Tazobactam 3 200 100 .375 gm In Sodium Chloride 0.9% 100 ml @ 25 mls/hr IVPB Q8HR [facility] Rx# :[id number] Sodium Chloride 0.9% 1, 825 825 225 000 ml @ 75 mls/hr IV . [id number] [facility] Rx#:[id number] Sodium Chloride 0.9% 1, 1000 000 ml @ 999 mls/hr IV . Q1H1M [facility] Rx#:[id number] Intake, IV Titration 156.446 90.583 Amount Dexmedetomidine/0.9% NaCl 56.190 (Pmx) 400 mcg In Empty Bag 1 bag @ 0.2 MCG/KG/HR 4.59 mls/hr IV .[id number] [facility] Rx#:[id number] Ropivacaine 250 mg 10.9 90.583 Hydromorphone (Pf) 5 mg In Sodium Chloride 0.9% 200 ml @ Per Protocol EPIDURAL .Q0M [facility] Rx#: [id number] propofoL 1,000 mg In 89.356 Empty Bag 1 bag @ 15 MCG/ KG/MIN 8.165 mls/hr IV . [id number] [facility] Rx#:[id number] Oral 240 TPN/PPN 1044 957 261 Mvi, Adult No.4 with Vit 1044 957 261 K 10 ml Trace (Conc-1Ml/ Dose) 1 ml Sodium Acetate 30 meq Potassium Acetate 20 meq Calcium Gluconate 1 gm Magnesium Sulfate gm 1 gm Potassium Phosphate 9 mmol In Amino Acids 5 %/Dextrose 20 % 1,000 ml @ 87 mls/hr IV . BY DURATION [facility] Rx#: [id number] Output: Gastric Drainage 550 Drainage 10 0 Left Lower Abdomen 10 0 Urine 940 1145 250 Oral Regurgitation 50 Other: Voiding Method Indwelling Catheter Indwelling Catheter # Bowel Movements 1 - Labs CBC & Chem 7: 06/23/24 14:09 06/23/24 04:15 Labs: Abnormal Lab Results - Last 24 Hours (Table) 06/22/24 06/22/24 06/22/24 Range/Units 09:24 12:05 17:27 WBC (3.8-10.6) k/uL RBC (3.80-5.40) m/uL Hgb (11.4-16.0) gm/dL Hct (34.0-46.0) % RDW (11.5-15.5) % Neutrophils # (1.3-7.7) k/uL Monocytes # (0-1.0) k/uL Eosinophils # (0-0.7) k/uL Chloride (98-107) mmol/L BUN (7-17) mg/dL Glucose (74-99) mg/dL POC Glucose (mg/dL) 383 H 280 H 150 H (70-110) mg/dL 06/22/24 06/23/24 06/23/24 Range/Units 20:22 04:15 04:15 WBC 16.8 H (3.8-10.6) k/uL RBC 3.25 L (3.80-5.40) m/uL Hgb 8.9 L D (11.4-16.0) gm/dL Hct 28.2 L (34.0-46.0) % RDW 16.9 H (11.5-15.5) % Neutrophils # 12.2 H (1.3-7.7) k/uL Monocytes # 1.1 H (0-1.0) k/uL Eosinophils # 1.0 H (0-0.7) k/uL Chloride 112 H (98-107) mmol/L BUN 25 H (7-17) mg/dL Glucose 164 H (74-99) mg/dL POC Glucose (mg/dL) 151 H (70-110) mg/dL 06/23/24 Range/Units 06:25 WBC (3.8-10.6) k/uL RBC (3.80-5.40) m/uL Hgb (11.4-16.0) gm/dL Hct (34.0-46.0) % RDW (11.5-15.5) % Neutrophils # (1.3-7.7) k/uL Monocytes # (0-1.0) k/uL Eosinophils # (0-0.7) k/uL Chloride (98-107) mmol/L BUN (7-17) mg/dL Glucose (74-99) mg/dL POC Glucose (mg/dL) 160 H (70-110) mg/dL Microbiology - Last 24 Hours (Table) 06/21/24 19:11 Gram Stain - Preliminary Abdomen Wound Culture - Preliminary Nilda albicans 06/22/24 00:25 Gram Stain - Preliminary Sputum Assessment and Plan Time with Patient: Less than 30
--- NOTE | 2024-06-23 20:38 | XR ---
EXAMINATION TYPE: XR chest 1V DATE OF EXAM: 06/23/2024 8:31 PM CLINICAL INDICATION: Female, 53 years old with history of Increased oxygen demands; [facility] COMPARISON: Chest radiographs from 06/22/2024 TECHNIQUE: XR chest 1V Frontal view of the chest. FINDINGS: Lungs/Pleura: Right lower lung streaky atelectasis. There is no evidence of pleural effusion, focal c onsolidation, or pneumothorax. Pulmonary vascularity: Unremarkable. Heart/mediastinum: Cardiomediastinal silhouette is unremarkable. Musculoskeletal: No acute osseous pathology. Other findings: None Lines/Tubes: Nonvisualization of the endotracheal tube. Nasogastric tube with its distal tip and side-port projecting under the diaphragm. IMPRESSION: 1. Endotracheal tube not visualized compared to 06/22/2024 correlate for extubation. Clinical correla tion advised. 2. Right lower lung streaky atelectasis. [facility], , 06/23/2024 8:36 PM
[2024-06-23] MEDS: FUROSEMIDE 10 MG/ML 4 ML VIAL IV STA (21:06)
[2024-06-23 23:39] LABS: Glucose,Whole Blood 208 mg/dL (70-110)
[2024-06-24 05:45] LABS: Glucose,Whole Blood 220 mg/dL (70-110)
--- NOTE | 2024-06-24 06:29 | P.PN ---
Progress Note - Text Progress Note Date: 06/24/24 Patient doing well. Pain well controlled. Epidural @ 9 ml/hr. Denies leg paresthesia. Denies headache. Back - epidural site clean and dry A/P POD#3 (Epidural day #2) s/p exploratory laparotomy - continue current regimen
[2024-06-24 06:30] LABS: Anisocytosis Slight; Basophils # (A) 0.1 k/uL (0-0.2); Basophils % (A) 1 %; Eosinophils # (A) 1.5 k/uL (0-0.7); Eosinophils % (A) 11 %; HCT 27.8 % (34.0-46.0); HGB 8.4 gm/dL (11.4-16.0); Hypochromasia Marked; Lymphocytes % (A) 15 %; MCH 26.9 pg (25.0-35.0); MCHC 30.2 g/dL (31.0-37.0); MCV 88.9 fL (80.0-100.0); Mean Platelet Volume 8.9; Monocytes # (A) 0.9 k/uL (0-1.0); Monocytes % (A) 7 %; Neutrophils # (A) 8.7 k/uL (1.3-7.7); Neutrophils % (A) 64 %; Platelet Count 324 k/uL (150-450); Poikilocytosis Slight; RBC 3.12 m/uL (3.80-5.40); WBC 13.5 k/uL (3.8-10.6)
[2024-06-24 06:48] LABS: African American GFR (CKD) >90 (>60 ml/min/1.73 sqM); Anion Gap 4 mmol/L; Blood Urea Nitrogen 22 mg/dL (7-17); Calcium 8.4 mg/dL (8.4-10.2); Carbon Dioxide 32 mmol/L (22-30); Chloride 102 mmol/L (98-107); Glucose 205 mg/dL (74-99); Magnesium 1.8 mg/dL (1.6-2.3); Non-African American GFR(CKD) >90 (>60 ml/min/1.73 sqM); Phosphorus 3.6 mg/dL (2.5-4.5); Potassium 3.3 mmol/L (3.5-5.1); Sodium 138 mmol/L (137-145)
[2024-06-24] MEDS ORDERED: Potassium Replacement Protocol 1 EACH MISC MISCELLANE PRN (08:00)
[2024-06-24] MEDS ORDERED: Magnesium Replacement Protocol 1 EACH MISC MISCELLANE PRN (08:01)
[2024-06-24] MEDS: POTASSIUM CHLORIDE 20 MEQ in WATER FOR INJECTION 1 100ML.BAG IVPB SCH (09:08)
[2024-06-24] MEDS: MAGNESIUM SULFATE-D5W PMX 1 GM in DEXTROSE/WATER 1 100ML.BAG IVPB ONE (09:09)
--- NOTE | 2024-06-24 11:29 | P.PN ---
Subjective Progress Note Date: 06/24/24 Patient is a 53-year-old female with diabetes, hypertension, COPD, CABG with multiple stents most recently in November 2018 maintained on aspirin and Plavix presents with complaints of worsening abdominal pain. She was discharged from the hospital 2 days ago on Ceftin and Flagyl for colitis. During that hospital course her CT abdomen/pelvis revealed right-sided colitis she was started on IV Flagyl and ciprofloxacin and her WBCs trended down (11.5 to 8.21 on discharge). She endorsed improved pain throughout her stay and on the day of discharge she was asking to go home after she successfully ate lunch. During her stay her C. difficile PCR was negative. Endorses one episode of bloody emesis yesterday, and approximately 6 other episodes of non-bloody emesis since discharge but has had no vomiting since admission last night. Endorses compliance with medications since discharge. States pain is 6/10 right now but was 100/10 just before coming to ED. Denies current chest pain, shortness of breath, nausea, vomiting, hematochezia. Endorses right lower quadrant pain. CT abdomen/pelvis revealed inflammatory changes involving the cecum with adjacent 2.3 cm intramural wall abscess and reactive small bowel ileus. WBCs 12.3, hemoglobin 13.4, platelets 580. Urinalysis unremarkable. Afebrile, tachycardic since improved, hypertensive with systolic [id number]. 06/07. Patient seen and examined at bedside. She states that the pain is improved. Surgery consultedno intervention at this time. Endorses mild diarrhea starting. WBC 7.62. 06/08. Patient seen and examined lying comfortably on bed. She states the pain is significantly improved. Lab results pending. 06/09. Patient is evaluated in follow up today. She is resting in bed she is holding her abdomen and reporting pain to the RLQ. She is requesting IV pain medication. Noted that follow up abdominal pelvis CT done today reveals similar findings with abnormally thickened wall of the colon adjacent to the ileocecal valve region. Similar surrounding mild inflammatory fat stranding consider focal colitis. Suspected intramural abscess here is smaller at 1.8 cm vs. 2.5 cm previously. Normal appendix. New prominent fluid within the stomach. Fluid- filled small bowel loops are more numerous now. Consider worsening ileus. Trace pelvic free fluid redemonstrated. No free air. Potassium 5.3. today. 06/10. Patient seen and examined at bedside. Patient still with significant amount of pain on the right side of the abdomen as well as epigastric area. She is NPO. She endorses nausea. She denies fever, chest pain, shortness of breath. Infectious disease consulted. Labs unremarkable. 06/11. Patient seen and examined. Continues to complain of abdominal pain. Denies any nausea or vomiting, passing gas. 06/12. Patient seen and examined at bedside lying comfortably. Continues to complain of abdominal pain. Excited but nervous for surgery. Denies any nausea, vomiting, fever, chills. Endorses passing gas and 3 episodes of diarrhea today. Patient going to the operating room today. Midline was placed this morning. 06/13. Patient seen lying in bed. She is postop day 1 status post diagnostic laparoscopic abdominal washout converted to open with ileocecectomy with drain placement. She is complaining of abdominal pain and a lot of pressure in epigastric region. She has not passed flatus. 06/14. Patient seen and examined laying in bed. She is postop day 2 status post diagnostic laparoscopic abdominal washout converted to open with ileocecectomy with drain placement. She endorses improved abdominal pain with pressure in the epigastric region. She has not passed flatus. OSCAR drain is serosanguineous fluid. Potassium 2.9. TPN has been started. 06/15. Patient seen laying in bed. She is postop day 3 status post diagnostic laparoscopic abdominal washout converted to open with ileocecectomy with drain placement. She endorses improved abdominal pain and increased ambulation. She has not passed flatus. She is ambulating well around the unit. OSCAR drain is serosanguineous fluid. Potassium is 3.2. Endorses nausea and relief with Zofran. 06/16. Patient seen and examined. Currently on TPN, states she feels better. Denies any nausea or vomiting, complaining of on and off abdominal pain. 06/17. Patient seen laying in bed. Postop day 5. Endorses epigastric abdominal pain. Ambulating well around the unit. Not passing flatus. 06/18. Patient seen and examined. Patient had 1 episode of emesis this morning, states she feels much better after that. Patient not passing gas. No bowel movement yet. 06/19. Patient seen and examined at bedside. No flatus, no bowel movement. Had an NG tube placed overnight. 06/20. Patient seen at bedside. Passing flatus, had a bowel movement yesterday. Still with NG tube with 900 mL output. Multiple episodes of vomiting yesterday. Patient states she feels less distended. 06/21. Patient seen and examined lying in bed. Endorses worsened abdominal pain. Endorses mild chest pain relieved with sitting up, worsened laying flat. 06/22. Patient transferred to ICU yesterday status post intubation due to acute on chronic hypoxic respiratory failure. Labs: WBCs 22.1, hemoglobin 12.4, platelets 463, sodium 138, potassium 4.8, CO2 24, creatinine 0.83. Patient underwent exploratory laparotomy yesterday. 06/23. Patient is evaluated today in the intensive care unit awake alert and oriented. Postoperative day #2 exploratory laparotomy and bowel resection. Patient received an epidural yesterday; states the pain level is manageable today and significantly improved. Patient with NG tube in place and per nursing staff was sucking water of the oral swabs and had increased gastric output because of it. Those were changed out to the lemon glycerin swabs. White blood cell count 16.8, hgb 8.9, Na -140, BUN 25, creatinine 0.72. 06/24. Patient seen in the ICU. She is postop day 3 of exploratory laparotomy and bowel resection and status post epidural placement day 3. She states her pain is better. She endorses mild abdominal pain due to surgery. She is still with an NG tube with 500 mL output and left OSCAR drain with minimal output. Labs: WBCs 13.5, hemoglobin 8.4, sodium 138, potassium 3.3. States she has had 2 bowel movements. Endorses mild nausea, no vomiting. Abdominal wound culture growing shyam and sputum culture growing gram negative bacilli preliminarily. ROS reviewed. Pertinent positives and negatives discussed above, a complete review of systems was performed and all the other systems were negative. Physical examination: Vital signs are stable. General: No acute distress. AO x 4. Currently with an NG tube. HEENT: Head exam is unremarkable. ACs patent. Nares patent. Lungs: Bilateral breath sounds present; no rhonchi, wheezes, or rales. Heart: Rate and rhythm are regular. S1-S2 present. No murmur/rub/gallops. Abdomen: Bowel sounds absent. Extremities: Trace edema present. Psych: Normal affect and mood. Cooperative. Assessment/Plan: Intramural wall abscess Right sided colitis Postop day 12 status post diagnostic laparoscopic abdominal washout converted to open with ileocecectomy with drain placement Continue TPN Surgery following Continue with Zosyn and Eraxis per infectious disease Ileus Postop day 3 exploratory laparotomy, small bowel resection x 2, colon resection, lysis of adhesions Surgery following NPO Continue with NG tube suction Encourage ambulation Acute on chronic hypoxic respiratory failure On 6 L high flow Aggressive pulmonary toileting Pulmonology following Hypokalemia Monitor BMP Replete potassium Diabetes mellitus type 2 Monitor glucose Insulin sliding scale Hypertension Continue Norvasc Hyperlipidemia Continue Lipitor COPD Continue Ventolin as needed Continue Symbicort Continue DuoNeb History of CABG and stents Continue aspirin Anxiety Continue Xanax as needed DVT prophylaxis: Subcutaneous heparin GI prophylaxis: Protonix Dr. Lito MD I have performed a history and physical examination and medical decision making of this patient, discussed the same with the the resident, and agree with the a ssessment and plan as written. I performed brief physical exam. Objective - Vital Signs Vital signs: Vital Signs Temp 99.6 F 06/24/24 04:00 Pulse 86 06/24/24 06:00 Resp 19 06/24/24 06:00 BP 96/64 06/24/24 06:00 Pulse Ox 94 L 06/24/24 06:00 FiO2 50 06/22/24 09:03 Intake & Output 06/23/24 06/23/24 06/24/24 06:59 18:59 06:59 Intake Total 6122.411 2054 1020 Output Total 1145 1825 2425 Balance 847.583 18 -1405 Weight 90.9 kg 89.3 kg Intake: IV 945 1000 900 Invasive Line 4 30 Invasive Line 5 30 Invasive Line 6 30 Invasive Line 7 30 Piperacillin-Tazobactam 3 100 .375 gm In Sodium Chloride 0.9% 100 ml @ 25 mls/hr IVPB Q8HR [facility] Rx# :[id number] Sodium Chloride 0.9% 1, 825 900 900 000 ml @ 75 mls/hr IV . [id number] [facility] Rx#:[id number] Intake, IV Titration 90.583 120 Amount Ropivacaine 250 mg 90.583 120 Hydromorphone (Pf) 5 mg In Sodium Chloride 0.9% 200 ml @ Per Protocol EPIDURAL .Q0M [facility] Rx#: [id number] TPN/PPN 957 783 Mvi, Adult No.4 with Vit 957 783 K 10 ml Trace (Conc-1Ml/ Dose) 1 ml Sodium Acetate 30 meq Potassium Acetate 20 meq Calcium Gluconate 1 gm Magnesium Sulfate gm 1 gm Potassium Phosphate 9 mmol In Amino Acids 5 %/Dextrose 20 % 1,000 ml @ 87 mls/hr IV . BY DURATION [facility] Rx#: [id number] Other 60 Output: Gastric Drainage 500 Drainage 0 0 0 Left Lower Abdomen 0 0 0 Urine 1145 1325 2425 Other: Voiding Method Indwelling Catheter Indwelling Catheter Indwelling Catheter - Labs CBC & Chem 7: 06/24/24 05:25 06/25/24 02:38 Labs: Abnormal Lab Results - Last 24 Hours (Table) 06/23/24 06/23/24 06/23/24 Range/Units 11:50 14:09 17:59 WBC 15.2 H (3.8-10.6) k/uL RBC 3.33 L (3.80-5.40) m/uL Hgb 9.0 L (11.4-16.0) gm/dL Hct 29.6 L (34.0-46.0) % MCHC 30.3 L (31.0-37.0) g/dL RDW 16.9 H (11.5-15.5) % Neutrophils # 10.6 H (1.3-7.7) k/uL Eosinophils # 1.3 H (0-0.7) k/uL POC Glucose (mg/dL) 184 H 205 H (70-110) mg/dL 06/23/24 06/24/24 06/24/24 Range/Units 23:37 05:25 05:43 WBC 13.5 H (3.8-10.6) k/uL RBC 3.12 L (3.80-5.40) m/uL Hgb 8.4 L (11.4-16.0) gm/dL Hct 27.8 L (34.0-46.0) % MCHC 30.2 L (31.0-37.0) g/dL RDW 17.0 H (11.5-15.5) % Neutrophils # 8.7 H (1.3-7.7) k/uL Eosinophils # 1.5 H (0-0.7) k/uL POC Glucose (mg/dL) 208 H 220 H (70-110) mg/dL Microbiology - Last 24 Hours (Table) 06/22/24 17:39 Blood Culture - Preliminary Blood 06/22/24 00:25 Gram Stain - Preliminary Sputum Sputum Culture - Preliminary Gram Neg Bacilli 06/21/24 19:11 Gram Stain - Preliminary Abdomen Wound Culture - Preliminary Shyam albicans
--- NOTE | 2024-06-24 11:31 | P.PN ---
Subjective Progress Note Date: 06/24/24 Principal diagnosis: Palomo on chronic hypoxic respiratory failure secondary to abdominal sepsis, status post ileocecectomy postoperative day #3 This is a 53-year-old female patient is being seen in consultation as the patient has noted to be more hypoxic during this current admission. The patient has been in the hospital since 06/06/2023 and the patient has a perforated divert icular abscess. The patient has undergone a diagnostic laparoscopy converted to open ileocecectomy and this was done on 06/14/2024. Since then, the patient has been kept NPO. NG tube still in place. No reported aspiration. Surgical site is dry clean and intact. The patient's output from the OSCAR drain is serosanguineous. The patient has no fever or chills. No hemodynamic instability. She is known to have COPD and she claims that she has been oxygen dependent at home somewhere between 2 to 3 L and she was using it only on a history basis. Her oxygen requirements have been gradually increasing and the patient is currently on 5 L of oxygen nasal cannula. She is using incentive spirometer. She is laying down in bed. Reviewed the most recent chest x-ray and it shows some atelectatic changes in lung bases bilaterally. Otherwise, there is no airspace's or consolidations. No chest pain. No pleurisy or hemoptysis. The patient has been maintained on heparin subcu for DVT prophylaxi s throughout the admission. No swelling in lower extremities. No other complaints of respiratory distress for now. The white cell count of 10.7, hemoglobin 9.5 and a platelet count of 382. The patient's D-dimer is at 5.33 which is expectedly elevated. Sodium levels at 136, BUN is 19 with a creatinine of 0.51 and a potassium level is at 4. proBNP level is 115. She is awake and alert and she is communicating. On today's evaluation of 06/22/2024, the patient remains intubated on mechanical ventilator. The patient was taken to the operating room yesterday and the patient underwent small bowel resection, large bowel resection and lysis of adhesions. Post surgery, the patient was kept intubated the patient was brought into the ICU on propofol which is running at 50 mcg/kg/min. This morning, she is on assist-control mode of mechanical ventilation at rate of 18, tidal volume of 400, FiO2 50% with a PEEP of 5. The blood gas showed a pH of 7.37 with a pCO2 of 43 and pO2 of 127. Chest x-ray shows some mild elevation of the right hemidiaphragm. Otherwise no other significant abnormalities. The patient remains on TPN for nutritional support at a rate of 35 cc an hour. The patient is also on Levemir insulin 15 units daily plus a sliding scale coverage and normal citrate of 75 cc an hour. The patient has a white cell count of 22, hemoglobin of 12.4 and platelet count of 463. Rest of the electrolytes are all within normal limits. BUN 30 with a creatinine of 0.8. She remains n.p.o. on TPN. No other significant events overnight. She is calm and comfortable at this point. IV antibiotics in the form of Zosyn. On 06/23/2024, patient is being seen for a follow-up. The patient was weaned off the mechanical ventilator and the patient was extubated yesterday without any m ajor difficulties. Over the afternoon, the patient started having increased abdominal pain. Based on that, the patient was given epidural and currently she is under adequate pain control with epidural at 9 cc an hour with Dilaudid and bupivacaine. OSCAR drain output is minimal and serosanguineous. NG output has been more than 1 L over the past 12 to 24 hours. The patient remains on TPN at rate of 87 cc an hour normal citrate of 75 cc an hour. She is currently extubated on 3 L/min nasal cannula. The white cell count is 16.8 with hemoglobin 8.5 and a platelet count of 335. BUN is 25 with a creatinine of 0.7 and sodium levels at 140. On examination, she has no significant bowel sounds. Chest x-ray from yesterday was noted. There is some elevation of the right hemidiaphragm. Otherwise no other acute abnormalities noted. She was provided an incentive spirometer. Patient was seen on 06/24/24, patient remains on nasal cannula at 6 L, satting 94%, remains in the ICU, doing quite well. Relatively asymptomatic, tolerated the extubation well over the last couple of days. Patient is on TPN at 87 cc/h IV fluid at 75 cc/h her chest x-ray showed minimal basilar atelectasis specially at the right base, patient is doing well with incentive spirometry. And I plan to transfer the patient out of the ICU to the regular medical floor today WBC count is 13.5 hemoglobin 8.4 basic metabolic profile is normal renal profile is done Objective - Vital Signs Vital signs: Vital Signs Temp 99.6 F 06/24/24 04:00 Pulse 81 06/24/24 08:42 Resp 18 06/24/24 08:42 BP 100/61 06/24/24 07:00 Pulse Ox 94 L 06/24/24 06:00 FiO2 50 06/22/24 09:03 Intake & Output 06/23/24 06/24/24 06/24/24 18:59 06:59 18:59 Intake Total 1843 1020 75 Output Total 1825 2425 50 Balance 18 -1405 25 Weight 89.3 kg Intake: IV 1000 900 75 Piperacillin-Tazobactam 3 100 .375 gm In Sodium Chloride 0.9% 100 ml @ 25 mls/hr IVPB Q8HR [facility] Rx# :[id number] Sodium Chloride 0.9% 1, 900 900 75 000 ml @ 75 mls/hr IV . [id number] [facility] Rx#:[id number] Intake, IV Titration 120 Amount Ropivacaine 250 mg 120 Hydromorphone (Pf) 5 mg In Sodium Chloride 0.9% 200 ml @ Per Protocol EPIDURAL .Q0M PRN Rx#: [id number] TPN/PPN 783 Mvi, Adult No.4 with Vit 783 K 10 ml Trace (Conc-1Ml/ Dose) 1 ml Sodium Acetate 30 meq Potassium Acetate 20 meq Calcium Gluconate 1 gm Magnesium Sulfate gm 1 gm Potassium Phosphate 9 mmol In Amino Acids 5 %/Dextrose 20 % 1,000 ml @ 87 mls/hr IV . BY DURATION [facility] Rx#: [id number] Other 60 Output: Gastric Drainage 500 Drainage 0 0 Left Lower Abdomen 0 0 Urine 1325 2425 50 Other: Voiding Method Indwelling Catheter Indwelling Catheter - Exam GENERAL: Revealed 53-year-old female in no distress on 6 L nasal cannula HEENT: PERRLA, EOMI, nonicteric, no neck masses no JVD. CARDIOVASCULAR: S1 and S2 present. No murmurs, rubs, or gallops. PULMONARY: Clear throughout no crackles rhonchi or wheezes ABDOMEN: Soft, tender, nondistended, normoactive bowel sounds. No palpable organomegaly. Wound vac in place with bloody drainage noted in the canister. NG tube in place. MUSCULOSKELETAL: No joint swelling or deformity. EXTREMITIES: No cyanosis, clubbing, or pedal edema. NEUROLOGICAL: Alert oriented x 3 no gross focal deficit SKIN: No rashes. Psychiatric: Normal mood affect and normal mental status examination. - Labs CBC & Chem 7: 06/24/24 05:25 06/24/24 05:25 Labs: Abnormal Lab Results - Last 24 Hours (Table) 06/23/24 06/23/24 06/23/24 Range/Units 11:50 14:09 17:59 WBC 15.2 H (3.8-10.6) k/uL RBC 3.33 L (3.80-5.40) m/uL Hgb 9.0 L (11.4-16.0) gm/dL Hct 29.6 L (34.0-46.0) % MCHC 30.3 L (31.0-37.0) g/dL RDW 16.9 H (11.5-15.5) % Neutrophils # 10.6 H (1.3-7.7) k/uL Eosinophils # 1.3 H (0-0.7) k/uL Potassium (3.5-5.1) mmol/L Carbon Dioxide (22-30) mmol/L BUN (7-17) mg/dL Glucose (74-99) mg/dL POC Glucose (mg/dL) 184 H 205 H (70-110) mg/dL 06/23/24 06/24/24 06/24/24 Range/Units 23:37 05:25 05:25 WBC 13.5 H (3.8-10.6) k/uL RBC 3.12 L (3.80-5.40) m/uL Hgb 8.4 L (11.4-16.0) gm/dL Hct 27.8 L (34.0-46.0) % MCHC 30.2 L (31.0-37.0) g/dL RDW 17.0 H (11.5-15.5) % Neutrophils # 8.7 H (1.3-7.7) k/uL Eosinophils # 1.5 H (0-0.7) k/uL Potassium 3.3 L (3.5-5.1) mmol/L Carbon Dioxide 32 H (22-30) mmol/L BUN 22 H (7-17) mg/dL Glucose 205 H (74-99) mg/dL POC Glucose (mg/dL) 208 H (70-110) mg/dL 06/24/24 Range/Units 05:43 WBC (3.8-10.6) k/uL RBC (3.80-5.40) m/uL Hgb (11.4-16.0) gm/dL Hct (34.0-46.0) % MCHC (31.0-37.0) g/dL RDW (11.5-15.5) % Neutrophils # (1.3-7.7) k/uL Eosinophils # (0-0.7) k/uL Potassium (3.5-5.1) mmol/L Carbon Dioxide (22-30) mmol/L BUN (7-17) mg/dL Glucose (74-99) mg/dL POC Glucose (mg/dL) 220 H (70-110) mg/dL Microbiology - Last 24 Hours (Table) 06/21/24 19:11 Gram Stain - Final Abdomen Wound Culture - Final Nilda albicans 06/22/24 17:39 Blood Culture - Preliminary Blood 06/22/24 00:25 Gram Stain - Preliminary Sputum Sputum Culture - Preliminary Gram Neg Bacilli Assessment and Plan Assessment: Impression Acute on chronic hypoxemia. With postoperative atelectasis and underlying COPD Diverticular abscess/perforated diverticulitis and the patient has undergone a ileocecectomy. Postoperative day #3 Abdominal pain status post epidural pain control with bupivacaine and Dilaudid N.p.o. and the patient remains on TPN for nutritional support Coronary artery disease with bypass surgery COPD, maintained on a combination of Symbicort and Spiriva on outpatient basis and this should albuterol rescue inhaler on a as needed basis. Hypertension Diabetes mellitus type 2 Recommendation: Transfer patient out of ICU to regular medical floor Continue IV fluids Continue TPN Continue bronchodilators Continue oxygen and titrate accordingly Continue antibiotics/Zosyn Continue to monitor drainage from OSCAR drain Ambulate as tolerated Will continue to follow Time with Patient: Less than 30
[2024-06-24 11:51] LABS: Glucose,Whole Blood 213 mg/dL (70-110)
[2024-06-24 12:19] VITALS: BMI 32.7
--- NOTE | 2024-06-24 14:49 | P.PN ---
Subjective Patient seen and evaluated at bedside. Pain has improved, denies nausea or vomiting fevers or chills. Objective - Vital Signs Vital signs: Vital Signs Temp 97.7 F 06/24/24 14:00 Pulse 84 06/24/24 14:19 Resp 18 06/24/24 14:19 BP 107/61 06/24/24 14:00 Pulse Ox 95 06/24/24 14:13 FiO2 50 06/22/24 09:03 Intake & Output 06/23/24 06/24/24 06/24/24 18:59 06:59 18:59 Intake Total 1843 1020 775 Output Total 1825 2425 1095 Balance 18 1405 -320 Weight 89.3 kg 89.3 kg Intake: IV 1000 900 775 Magnesium Sulfate-D5w Pmx 100 1 gm In Dextrose/Water 1 100ml.bag @ 100 mls/hr IVPB ONCE ONE Rx#: [id number] Piperacillin-Tazobactam 3 100 100 .375 gm In Sodium Chloride 0.9% 100 ml @ 25 mls/hr IVPB Q8HR [facility] Rx# :[id number] Potassium Chloride 20 meq 200 In Water For Injection 1 100ml.bag @ 50 mls/hr IVPB Q2H [facility] Rx#: [id number] Sodium Chloride 0.9% 1, 900 900 375 000 ml @ 75 mls/hr IV . [id number] [facility] Rx#:[id number] Intake, IV Titration 120 Amount Ropivacaine 250 mg 120 Hydromorphone (Pf) 5 mg In Sodium Chloride 0.9% 200 ml @ Per Protocol EPIDURAL .Q0M PRN Rx#: [id number] TPN/PPN 783 Mvi, Adult No.4 with Vit 783 K 10 ml Trace (Conc-1Ml/ Dose) 1 ml Sodium Acetate 30 meq Potassium Acetate 20 meq Calcium Gluconate 1 gm Magnesium Sulfate gm 1 gm Potassium Phosphate 9 mmol In Amino Acids 5 %/Dextrose 20 % 1,000 ml @ 87 mls/hr IV . BY DURATION [facility] Rx#: [id number] Other 60 Output: Gastric Drainage 500 800 Drainage 0 0 Left Lower Abdomen 0 0 Urine 1325 2425 295 Other: Voiding Method Indwelling Catheter Indwelling Catheter Indwelling Catheter - Exam gen: nad cv: rrr pul: non labored breathing abd: soft, distended, min tenderness to palpation, no guarding or rebound tenderness, incisions draining, dieudonne drain min serosang - Labs CBC & Chem 7: 06/24/24 05:25 06/24/24 05:25 Labs: Abnormal Lab Results - Last 24 Hours (Table) 06/23/24 06/23/24 06/24/24 Range/Units 17:59 23:37 05:25 WBC (3.8-10.6) k/uL RBC (3.80-5.40) m/uL Hgb (11.4-16.0) gm/dL Hct (34.0-46.0) % MCHC (31.0-37.0) g/dL RDW (11.5-15.5) % Neutrophils # (1.3-7.7) k/uL Eosinophils # (0-0.7) k/uL Potassium 3.3 L (3.5-5.1) mmol/L Carbon Dioxide 32 H (22-30) mmol/L BUN 22 H (7-17) mg/dL Glucose 205 H (74-99) mg/dL POC Glucose (mg/dL) 205 H 208 H (70-110) mg/dL 06/24/24 06/24/24 06/24/24 Range/Units 05:25 05:43 11:49 WBC 13.5 H (3.8-10.6) k/uL RBC 3.12 L (3.80-5.40) m/uL Hgb 8.4 L (11.4-16.0) gm/dL Hct 27.8 L (34.0-46.0) % MCHC 30.2 L (31.0-37.0) g/dL RDW 17.0 H (11.5-15.5) % Neutrophils # 8.7 H (1.3-7.7) k/uL Eosinophils # 1.5 H (0-0.7) k/uL Potassium (3.5-5.1) mmol/L Carbon Dioxide (22-30) mmol/L BUN (7-17) mg/dL Glucose (74-99) mg/dL POC Glucose (mg/dL) 220 H 213 H (70-110) mg/dL Microbiology - Last 24 Hours (Table) 06/21/24 19:11 Anaerobic Culture - Preliminary Abdomen Nilda glabrata 06/22/24 00:25 Gram Stain - Final Sputum Sputum Culture - Final Enterobacter cloacae Complex Serratia marcescens ssp sakuen 06/21/24 19:11 Gram Stain - Final Abdomen Wound Culture - Final Nilda albicans 06/22/24 17:39 Blood Culture - Preliminary Blood Assessment and Plan Assessment: 53 yo female s/p extended ileocectomy and small bowel resection -npo, except meds -continue nasogastric tube -will remove some of the packing this am -acute blood loss anemia -continue maldonado please call with any questions [phone] Time with Patient: Less than 30
[2024-06-24] MEDS: ANIDULAFUNGIN 100 MG in SODIUM CHLORIDE 0.9% 100 ML IVPB SCH (16:48)
[2024-06-24 18:13] LABS: Glucose,Whole Blood 210 mg/dL (70-110)
--- NOTE | 2024-06-24 23:07 | P.PN ---
Subjective Progress Note Date: 06/24/24 Principal diagnosis: Reason for follow-up is colitis/intra-abdominal abscess Patient is a 53-year-old female who recently did have multiple admission to the hospital regarding right sided abdominal pain has been diagnosed with colitis with intramural abscess failing outpatient oral antibiotic therapy. Patient is status post diagnostic laparoscopic abdominal washout converted to open laparotomy with loop cecectomy and drain placement. Patient was taken back to the OR patient is status post exploratory laparotomy, extensive lysis of adhesions greater than 1/3 of the case, small bowel resection x 2, proximal right colon resection completed on 06/22/2024 afternoon operative report did not mention any perforation or abscess. On today's evaluation that is 06/24/2024,the patient denies any fever or any chills, patient is breathing comfortably on 4 L nasal cannula oxygen the patient denies chest pain shortness of breath and no significant cough, patient denies any nausea or vomiting still have the NG abdominal pain is controlled with the pain medication. Patient white count is down to 13.5 creatinine 0.71 abdominal culture with Nilda glabrata and albicans sputum is growing Enterobacter and Serratia Objective - Vital Signs Vital signs: Vital Signs Temp 97.7 F 06/24/24 14:00 Pulse 84 06/24/24 14:19 Resp 18 06/24/24 14:19 BP 107/61 06/24/24 14:00 Pulse Ox 95 06/24/24 14:13 FiO2 50 06/22/24 09:03 Intake & Output 06/23/24 06/24/24 06/24/24 18:59 06:59 18:59 Intake Total 1843 1020 775 Output Total 1825 2425 1095 Balance 18 1405 -320 Weight 89.3 kg 89.3 kg Intake: IV 1000 900 775 Magnesium Sulfate-D5w Pmx 100 1 gm In Dextrose/Water 1 100ml.bag @ 100 mls/hr IVPB ONCE ONE Rx#: [id number] Piperacillin-Tazobactam 3 100 100 .375 gm In Sodium Chloride 0.9% 100 ml @ 25 mls/hr IVPB Q8HR [facility] Rx# :[id number] Potassium Chloride 20 meq 200 In Water For Injection 1 100ml.bag @ 50 mls/hr IVPB Q2H [facility] Rx#: [id number] Sodium Chloride 0.9% 1, 900 900 375 000 ml @ 75 mls/hr IV . [id number] [facility] Rx#:[id number] Intake, IV Titration 120 Amount Ropivacaine 250 mg 120 Hydromorphone (Pf) 5 mg In Sodium Chloride 0.9% 200 ml @ Per Protocol EPIDURAL .Q0M [facility] Rx#: [id number] TPN/PPN 783 Mvi, Adult No.4 with Vit 783 K 10 ml Trace (Conc-1Ml/ Dose) 1 ml Sodium Acetate 30 meq Potassium Acetate 20 meq Calcium Gluconate 1 gm Magnesium Sulfate gm 1 gm Potassium Phosphate 9 mmol In Amino Acids 5 %/Dextrose 20 % 1,000 ml @ 87 mls/hr IV . BY DURATION [facility] Rx#: [id number] Other 60 Output: Gastric Drainage 500 800 Drainage 0 0 Left Lower Abdomen 0 0 Urine 1325 2425 295 Other: Voiding Method Indwelling Catheter Indwelling Catheter Indwelling Catheter - Exam GENERAL DESCRIPTION: Middle-age female lying in bed in no distress RESPIRATORY SYSTEM: Unlabored breathing , decreased breath sounds at bases HEART: S1 S2 regular rate and rhythm , ABDOMEN: Soft , midline incision is currently intact minimal tenderness EXTREMITIES: No edema feet - Labs CBC & Chem 7: 06/24/24 05:25 06/24/24 15:20 Labs: Abnormal Lab Results - Last 24 Hours (Table) 06/23/24 06/23/24 06/24/24 Range/Units 17:59 23:37 05:25 WBC (3.8-10.6) k/uL RBC (3.80-5.40) m/uL Hgb (11.4-16.0) gm/dL Hct (34.0-46.0) % MCHC (31.0-37.0) g/dL RDW (11.5-15.5) % Neutrophils # (1.3-7.7) k/uL Eosinophils # (0-0.7) k/uL Potassium 3.3 L (3.5-5.1) mmol/L Carbon Dioxide 32 H (22-30) mmol/L BUN 22 H (7-17) mg/dL Glucose 205 H (74-99) mg/dL POC Glucose (mg/dL) 205 H 208 H (70-110) mg/dL 06/24/24 06/24/24 06/24/24 Range/Units 05:25 05:43 11:49 WBC 13.5 H (3.8-10.6) k/uL RBC 3.12 L (3.80-5.40) m/uL Hgb 8.4 L (11.4-16.0) gm/dL Hct 27.8 L (34.0-46.0) % MCHC 30.2 L (31.0-37.0) g/dL RDW 17.0 H (11.5-15.5) % Neutrophils # 8.7 H (1.3-7.7) k/uL Eosinophils # 1.5 H (0-0.7) k/uL Potassium (3.5-5.1) mmol/L Carbon Dioxide (22-30) mmol/L BUN (7-17) mg/dL Glucose (74-99) mg/dL POC Glucose (mg/dL) 220 H 213 H (70-110) mg/dL 06/24/24 Range/Units 15:20 WBC (3.8-10.6) k/uL RBC (3.80-5.40) m/uL Hgb (11.4-16.0) gm/dL Hct (34.0-46.0) % MCHC (31.0-37.0) g/dL RDW (11.5-15.5) % Neutrophils # (1.3-7.7) k/uL Eosinophils # (0-0.7) k/uL Potassium 3.4 L (3.5-5.1) mmol/L Carbon Dioxide (22-30) mmol/L BUN (7-17) mg/dL Glucose (74-99) mg/dL POC Glucose (mg/dL) (70-110) mg/dL Microbiology - Last 24 Hours (Table) 06/21/24 19:11 Anaerobic Culture - Preliminary Abdomen Nilda glabrata 06/22/24 00:25 Gram Stain - Final Sputum Sputum Culture - Final Enterobacter cloacae Complex Serratia marcescens ssp sakuen 06/21/24 19:11 Gram Stain - Final Abdomen Wound Culture - Final Nilda albicans 06/22/24 17:39 Blood Culture - Preliminary Blood Assessment and Plan (1) Colitis with abscess Current Visit: Yes Status: Acute Code(s): K52.9 - NONINFECTIVE GASTROENTERITIS AND COLITIS, UNSPECIFIED; K63.0 - ABSCESS OF INTESTINE SNOMED Code(s): 49377116 Plan: 1patient with a multiple admission to the hospital has been diagnosed with a colitis with intramural abscess that has failed outpatient oral Ceftin and Flagyl therapy with repeat CT did shows persistent features of colitis around the cecum with intramural abscess and slow clinical response to the medical therapy patient is status post laparotomy with ileocecectomy and drain placement unfortunately no cultures were done 2-patient remains to be afebrile,, patient did have CT with evidence of ileus did not mention any perforation or colitis abdominal x-rays with extensive bowel gas 3-patient taken back to the OR in this patient who is status post exploratory laparotomy resection of the portion of the bowel and abdominal culture currently growing Nilda albicans as well as glabrata, sputum cultures growing Enterobacter and Serratia sensitive to Zosyn 4patient did have resolution of the fever white count is trending down we will keep the patient on Eraxis and Zosyn and monitor clinical course closely Dictation was produced using [employer] dictation software. please excuse any grammatical, word or spelling errors. Time with Patient: Less than 30
[2024-06-24 23:41] LABS: Glucose,Whole Blood 213 mg/dL (70-110)
[2024-06-25 03:52] LABS: African American GFR (CKD) >90 (>60 ml/min/1.73 sqM); Anion Gap 4 mmol/L; Blood Urea Nitrogen 17 mg/dL (7-17); Calcium 8.3 mg/dL (8.4-10.2); Carbon Dioxide 27 mmol/L (22-30); Chloride 104 mmol/L (98-107); Glucose 149 mg/dL (74-99); Magnesium 1.9 mg/dL (1.6-2.3); Non-African American GFR(CKD) >90 (>60 ml/min/1.73 sqM); Phosphorus 2.7 mg/dL (2.5-4.5); Potassium 3.3 mmol/L (3.5-5.1); Sodium 135 mmol/L (137-145)
[2024-06-25 07:06] LABS: Glucose,Whole Blood 238 mg/dL (70-110)
--- NOTE | 2024-06-25 08:02 | P.PN ---
Progress Note - Text Progress Note Date: 06/25/24 (992) Anesthesia Postop day #3 Status post exploratory laparotomy with epidural day #4 Patient seen and examined. Doing well without complaint. VAS 9 out of 10 but controlled with breakthrough meds. Mild nausea. Mild pruritus. Ropivacaine0.1% with Dilaudid 20 mcg/mL at 9 cc an hour. Objective: Vital signs reviewed Lungs: Good chest excursion Abdomen: Appears nondistended Other: Epidural Site Intact without induration. Dressing intact Neuro: No apparent motor block. Sensory within normal limits. Assessment: Status post exploratory laparotomy postop day #3 Plan: Continue current care with your medical management. Anticipate discontinue catheter today. Left message with nurse. Platelets 324 and subcu heparin not due until 9 AM. Discussed with nurse the need to hold subcu heparin until epidural is out and then resume subcu heparin after. Order placed.
[2024-06-25] MEDS: [UNRECOGNIZED DRUG - REMARK] IV SCH (09:43)
[2024-06-25] MEDS: POTASSIUM CHLORIDE 10 MEQ in WATER FOR INJECTION 1 100ML.BAG IVPB SCH (09:54)
[2024-06-25 12:03] LABS: Glucose,Whole Blood 121 mg/dL (70-110)
--- NOTE | 2024-06-25 13:04 | P.PN ---
Subjective Progress Note Date: 06/25/24 Principal diagnosis: Reason for follow-up is colitis/intra-abdominal abscess Patient is a 53-year-old female who recently did have multiple admission to the hospital regarding right sided abdominal pain has been diagnosed with colitis with intramural abscess failing outpatient oral antibiotic therapy. Patient is status post diagnostic laparoscopic abdominal washout converted to open laparotomy with loop cecectomy and drain placement. Patient was taken back to the OR patient is status post exploratory laparotomy, extensive lysis of adhesions greater than 1/3 of the case, small bowel resection x 2, proximal right colon resection completed on 06/22/2024 afternoon operative report did not mention any perforation or abscess. On today's evaluation that is 06/25/2024,the patient remains to be afebrile, patient is on 2 L nasal cannula supplemental oxygen and denies any shortness of breath no chest pain or cough.Patient still have the NG some nausea no vomiting abdominal pain is currently controlled mention did have small amount of liquidy stools. Patient creatinine 0.5 feet CBC pending from today blood culture negative Objective - Vital Signs Vital signs: Vital Signs Temp 98.7 F 06/25/24 08:08 Pulse 95 06/25/24 08:08 Resp 18 06/25/24 08:08 BP 116/60 06/25/24 08:08 Pulse Ox 92 L 06/25/24 08:08 FiO2 50 06/22/24 09:03 Intake & Output 06/24/24 06/25/24 06/25/24 18:59 06:59 18:59 Intake Total 925 Output Total 1455 425 Balance -530 -425 Weight 89.3 kg Intake: IV 925 Magnesium Sulfate-D5w Pmx 100 1 gm In Dextrose/Water 1 100ml.bag @ 100 mls/hr IVPB ONCE ONE Rx#: [id number] Piperacillin-Tazobactam 3 100 .375 gm In Sodium Chloride 0.9% 100 ml @ 25 mls/hr IVPB Q8HR [facility] Rx# :[id number] Potassium Chloride 20 meq 200 In Water For Injection 1 100ml.bag @ 50 mls/hr IVPB Q2H [facility] Rx#: [id number] Sodium Chloride 0.9% 1, 525 000 ml @ 75 mls/hr IV . [id number] [facility] Rx#:[id number] Output: Gastric Drainage 1150 425 Drainage 10 Left Lower Abdomen 10 Urine 295 Other: Voiding Method Indwelling Catheter Bedside Commode # Voids 1 2 - Exam GENERAL DESCRIPTION: Middle-age female lying in bed in no distress RESPIRATORY SYSTEM: Unlabored breathing , decreased breath sounds at bases HEART: S1 S2 regular rate and rhythm , ABDOMEN: Soft , midline incision is currently intact minimal tenderness EXTREMITIES: No edema feet - Labs CBC & Chem 7: 06/24/24 05:25 06/25/24 02:38 Labs: Abnormal Lab Results - Last 24 Hours (Table) 06/24/24 06/24/24 06/24/24 Range/Units 15:20 18:12 23:21 Sodium (137-145) mmol/L Potassium 3.4 L (3.5-5.1) mmol/L Glucose (74-99) mg/dL POC Glucose (mg/dL) 210 H 213 H (70-110) mg/dL Calcium (8.4-10.2) mg/dL 06/25/24 06/25/24 06/25/24 Range/Units 02:38 07:04 12:01 Sodium 135 L (137-145) mmol/L Potassium 3.3 L (3.5-5.1) mmol/L Glucose 149 H (74-99) mg/dL POC Glucose (mg/dL) 238 H 121 H (70-110) mg/dL Calcium 8.3 L (8.4-10.2) mg/dL Microbiology - Last 24 Hours (Table) 06/22/24 17:39 Blood Culture - Preliminary Blood 06/21/24 19:11 Anaerobic Culture - Preliminary Abdomen Nilda glabrata 06/22/24 00:25 Gram Stain - Final Sputum Sputum Culture - Final Enterobacter cloacae Complex Serratia marcescens ssp sakuen 06/21/24 19:11 Gram Stain - Final Abdomen Wound Culture - Final Nilda albicans Assessment and Plan (1) Colitis with abscess Current Visit: Yes Status: Acute Code(s): K52.9 - NONINFECTIVE GASTROENTERITIS AND COLITIS, UNSPECIFIED; K63.0 - ABSCESS OF INTESTINE SNOMED Code(s): 25824723 Plan: 1patient with a multiple admission to the hospital has been diagnosed with a colitis with intramural abscess that has failed outpatient oral Ceftin and Flagyl therapy with repeat CT did shows persistent features of colitis around the cecum with intramural abscess and slow clinical response to the medical therapy patient is status post laparotomy with ileocecectomy and drain placement unfortunately no cultures were done 2-patient remains to be afebrile,, patient did have CT with evidence of ileus did not mention any perforation or colitis abdominal x-rays with extensive bowel gas 3-patient taken back to the OR in this patient who is status post exploratory laparotomy resection of the portion of the bowel and abdominal culture currently growing Nilda albicans as well as glabrata, sputum cultures growing Enterobacter and Serratia sensitive to Zosyn 4patient did have resolution of the fever white count is trending down as of yesterday's CBC is pending from today 5patient to continue with Eraxis and Zosyn and monitor clinical course closely Dictation was produced using [employer] dictation software. please excuse any grammatical, word or spelling errors. Time with Patient: Less than 30
--- NOTE | 2024-06-25 14:25 | P.PN ---
Subjective Progress Note Date: 06/25/24 This is a 53-year-old female patient is being seen in consultation as the patient has noted to be more hypoxic during this current admission. The patient has been in the hospital since 06/06/2023 and the patient has a perforated diverticular abscess. The patient has undergone a diagnostic laparoscopy con verted to open ileocecectomy and this was done on 06/14/2024. Since then, the patient has been kept NPO. NG tube still in place. No reported aspiration. Surgical site is dry clean and intact. The patient's output from the OSCAR drain is serosanguineous. The patient has no fever or chills. No hemodynamic instability. She is known to have COPD and she claims that she has been oxygen dependent at home somewhere between 2 to 3 L and she was using it only on a history basis. Her oxygen requirements have been gradually increasing and the patient is currently on 5 L of oxygen nasal cannula. She is using incentive spirometer. She is laying down in bed. Reviewed the most recent chest x-ray an d it shows some atelectatic changes in lung bases bilaterally. Otherwise, there is no airspace's or consolidations. No chest pain. No pleurisy or hemoptysis. The patient has been maintained on heparin subcu for DVT prophylaxis throughout the admission. No swelling in lower extremities. No other complaints of respiratory distress for now. The white cell count of 10.7, hemoglobin 9.5 and a platelet count of 382. The patient's D-dimer is at 5.33 which is expectedly elevated. Sodium levels at 136, BUN is 19 with a creatinine of 0.51 and a potassium level is at 4. proBNP level is 115. She is awake and alert and she is communicating. On today's evaluation of 06/22/2024, the patient remains intubated on mechanical ventilator. The patient was taken to the operating room yesterday and the patient underwent small bowel resection, large bowel resection and lysis of adhesions. Post surgery, the patient was kept intubated the patient was brought into the ICU on propofol which is running at 50 mcg/kg/min. This morning, she is on assist-control mode of mechanical ventilation at rate of 18, tidal volume of 400, FiO2 50% with a PEEP of 5. The blood gas showed a pH of 7.37 with a pCO2 of 43 and pO2 of 127. Chest x-ray shows some mild elevation of the right hemidiaphragm. Otherwise no other significant abnormalities. The patient remains on TPN for nutritional support at a rate of 35 cc an hour. The patient is also on Levemir insulin 15 units daily plus a sliding scale coverage and normal citrate of 75 cc an hour. The patient has a white cell count of 22, hemoglobin of 12.4 and platelet count of 463. Rest of the electrolytes are all within normal limits. BUN 30 with a creatinine of 0.8. She remains n.p.o. on TPN. No other significant events overnight. She is calm and comfortable at this point. IV antibiotics in the form of Zosyn. On 06/23/2024, patient is being seen for a follow-up. The patient was weaned off the mechanical ventilator and the patient was extubated yesterday without any major difficulties. Over the afternoon, the patient started having increased abdominal pain. Based on that, the patient was given epidural and currently she is under adequate pain control with epidural at 9 cc an hour with Dilaudid and bupivacaine. OSCAR drain output is minimal and serosanguineous. NG output has been more than 1 L over the past 12 to 24 hours. The patient remains on TPN at rate of 87 cc an hour normal citrate of 75 cc an hour. She is currently extu bated on 3 L/min nasal cannula. The white cell count is 16.8 with hemoglobin 8.5 and a platelet count of 335. BUN is 25 with a creatinine of 0.7 and sodium levels at 140. On examination, she has no significant bowel sounds. Chest x- ray from yesterday was noted. There is some elevation of the right hemidiaphragm. Otherwise no other acute abnormalities noted. She was provided an incentive spirometer. Patient was seen on 06/24/24, patient remains on nasal cannula at 6 L, satting 94%, remains in the ICU, doing quite well. Relatively asymptomatic, tolerated the extubation well over the last couple of days. Patient is on TPN at 87 cc/h IV fluid at 75 cc/h her chest x-ray showed minimal basilar atelectasis specially at the right base, patient is doing well with incentive spirometry. And I plan to transfer the patient out of the ICU to the regular medical floor today WBC count is 13.5 hemoglobin 8.4 basic metabolic profile is normal renal profile is done The patient is seen today June 25, 2024 in follow-up on the regular medical floor. She was transferred out of the intensive care unit yesterday. She is awake and alert in no acute distress. She is maintaining O2 saturations in the 90s on 4 L/min per nasal cannula. She has normal staying at KVO. Nasogastric tube remains in place. She is working well with the incentive spirometer and pulling approximately 1500 mL. Her sputum culture was positive for Enterobacter cloacae complex and Serratia marcescens. Abdominal cultures positive for Nilda albicans and glabrata. Sodium 135. Potassium 3.3. Bicarb 27. BUN 17. Creatinine 0.58. Glucose 149. She remains on DuoNeb inhalations, Symbicort. Heparin for DVT prophylaxis. Antibiotics in the form of Zosyn and Eraxis. She is being nourished with TPN and lipids. Objective - Vital Signs Vital signs: Vital Signs Temp 98.7 F 06/25/24 08:08 Pulse 95 06/25/24 08:08 Resp 18 06/25/24 08:08 BP 116/60 06/25/24 08:08 Pulse Ox 92 L 06/25/24 08:08 FiO2 50 06/22/24 09:03 Intake & Output 06/24/24 06/25/24 06/25/24 18:59 06:59 18:59 Intake Total 925 Output Total 1455 425 Balance -530 -425 Weight 89.3 kg Intake: IV 925 Magnesium Sulfate-D5w Pmx 100 1 gm In Dextrose/Water 1 100ml.bag @ 100 mls/hr IVPB ONCE ONE Rx#: [id number] Piperacillin-Tazobactam 3 100 .375 gm In Sodium Chloride 0.9% 100 ml @ 25 mls/hr IVPB Q8HR [facility] Rx# :[id number] Potassium Chloride 20 meq 200 In Water For Injection 1 100ml.bag @ 50 mls/hr IVPB Q2H [facility] Rx#: [id number] Sodium Chloride 0.9% 1, 525 000 ml @ 75 mls/hr IV . [id number] [facility] Rx#:[id number] Output: Gastric Drainage 1150 425 Drainage 10 Left Lower Abdomen 10 Urine 295 Other: Voiding Method Indwelling Catheter Bedside Commode # Voids 1 2 - Exam GENERAL: Revealed a pleasant 53-year-old female in no distress on 4 L nasal cannula HEENT: PERRLA, EOMI, nonicteric, no neck masses no JVD. CARDIOVASCULAR: S1 and S2 present. No murmurs, rubs, or gallops. PULMONARY: Clear throughout no crackles rhonchi or wheezes ABDOMEN: Soft, tender. Wound vac in place with bloody drainage noted in the can ister. NG tube in place. MUSCULOSKELETAL: No joint swelling or deformity. EXTREMITIES: No cyanosis, clubbing, or pedal edema. NEUROLOGICAL: Alert oriented x 3 no gross focal deficit SKIN: No rashes. Psychiatric: Normal mood affect and normal mental status examination. - Labs CBC & Chem 7: 06/24/24 05:25 06/25/24 02:38 Labs: Abnormal Lab Results - Last 24 Hours (Table) 06/24/24 06/24/24 06/24/24 Range/Units 15:20 18:12 23:21 Sodium (137-145) mmol/L Potassium 3.4 L (3.5-5.1) mmol/L Glucose (74-99) mg/dL POC Glucose (mg/dL) 210 H 213 H (70-110) mg/dL Calcium (8.4-10.2) mg/dL 06/25/24 06/25/24 06/25/24 Range/Units 02:38 07:04 12:01 Sodium 135 L (137-145) mmol/L Potassium 3.3 L (3.5-5.1) mmol/L Glucose 149 H (74-99) mg/dL POC Glucose (mg/dL) 238 H 121 H (70-110) mg/dL Calcium 8.3 L (8.4-10.2) mg/dL Microbiology - Last 24 Hours (Table) 06/22/24 17:39 Blood Culture - Preliminary Blood 06/21/24 19:11 Anaerobic Culture - Preliminary Abdomen Nilda glabrata 06/22/24 00:25 Gram Stain - Final Sputum Sputum Culture - Final Enterobacter cloacae Complex Serratia marcescens ssp sakuen Assessment and Plan Assessment: Acute on chronic hypoxemia. With postoperative atelectasis and underlying COPD Diverticular abscess/perforated diverticulitis and the patient has undergone a ileocecectomy. Postoperative day #4 Abdominal pain status post epidural pain control with bupivacaine and Dilaudid N.p.o. and the patient remains on TPN for nutritional support Coronary artery disease with bypass surgery COPD, maintained on a combination of Symbicort and Spiriva on outpatient basis and this should albuterol rescue inhaler on a as needed basis. Hypertension Diabetes mellitus type 2 Plan: The patient was seen and evaluated Labs and medications reviewed Currently stable on 4 L nasal cannula Working well with the incentive spirometer Titrate down the FiO2 as tolerated Increase her activity as tolerated Continued on TPN and lipids We will continue to follow I have personally seen and examined the patient, performed the documentation and the assessment and plan as written. Number of minutes spent on the visit: 10.
--- NOTE | 2024-06-25 14:35 | P.PN ---
Subjective Progress Note Date: 06/25/24 CHIEF COMPLAINT: Colitis with intramural wall abscess HISTORY OF PRESENT ILLNESS: Patient is status post diagnostic laparoscopy converted to open with ileocecectomy on 06/11/24. She was taken to back to the OR on 06/21/2024 and is status post exploratory laparotomy, extensive lysis of adhesions, small bowel resection x 2 and proximal right colon resection for small bowel obstruction secondary to adhesions and inflammation. Patient reports her pain is controlled. She does report nausea when her pain increases. She did have a bowel movement. NG tube with 425 mL bilious output. OSCAR drain 10 mL serosanguineous output her epidural was discontinued today. Weeks catheter is out. She is urinating without difficulty. Afebrile. Potassium 3.3 and is being placed PHYSICAL EXAM: VITAL SIGNS: Reviewed. GENERAL: no acute distress. ABDOMEN: Abdomen is softer. Less distended. Tenderness at incision site. Abdominal incision with serosanguineous purulent drainage distally. Iodoform packing in place. OSCAR drain serosanguineous output. NEUROLOGIC: Alert and oriented. Cranial nerves II through XII grossly intact. ASSESSMENT: 1. Colitis with intramural wall abscess 2. Small bowel obstruction secondary to adhesions and inflammation 3. Moderate protein calorie malnutrition 4. Hypokalemia PLAN: -One third of iodoform packing removed from incision -Continue NG tube for decompression -Keep patient n.p.o. -Continue TPN for nutrition support -Epidural discontinued -Continue pain management with IV Dilaudid as needed -Continue antibiotics per infectious disease -Encourage patient to increase activity level -DVT prophylaxis subcu heparin GI prophylaxis Proton[employer] note has been reviewed by physician. Signing provider agrees with the documented findings, assessment, and plan of care. Objective - Vital Signs Vital signs: Vital Signs Temp 98.7 F 06/25/24 08:08 Pulse 95 06/25/24 08:08 Resp 18 06/25/24 08:08 BP 116/60 06/25/24 08:08 Pulse Ox 92 L 06/25/24 08:08 FiO2 50 06/22/24 09:03 Intake & Output 06/24/24 06/25/24 06/25/24 18:59 06:59 18:59 Intake Total 925 Output Total 1455 425 Balance -530 -425 Weight 89.3 kg Intake: IV 925 Magnesium Sulfate-D5w Pmx 100 1 gm In Dextrose/Water 1 100ml.bag @ 100 mls/hr IVPB ONCE ONE Rx#: [id number] Piperacillin-Tazobactam 3 100 .375 gm In Sodium Chloride 0.9% 100 ml @ 25 mls/hr IVPB Q8HR [facility] Rx# :[id number] Potassium Chloride 20 meq 200 In Water For Injection 1 100ml.bag @ 50 mls/hr IVPB Q2H [facility] Rx#: [id number] Sodium Chloride 0.9% 1, 525 000 ml @ 75 mls/hr IV . [id number] [facility] Rx#:[id number] Output: Gastric Drainage 1150 425 Drainage 10 Left Lower Abdomen 10 Urine 295 Other: Voiding Method Indwelling Catheter Bedside Commode # Voids 1 2 - Labs CBC & Chem 7: 06/24/24 05:25 06/25/24 02:38 Labs: Abnormal Lab Results - Last 24 Hours (Table) 06/24/24 06/24/24 06/24/24 Range/Units 15:20 18:12 23:21 Sodium (137-145) mmol/L Potassium 3.4 L (3.5-5.1) mmol/L Glucose (74-99) mg/dL POC Glucose (mg/dL) 210 H 213 H (70-110) mg/dL Calcium (8.4-10.2) mg/dL 06/25/24 06/25/24 06/25/24 Range/Units 02:38 07:04 12:01 Sodium 135 L (137-145) mmol/L Potassium 3.3 L (3.5-5.1) mmol/L Glucose 149 H (74-99) mg/dL POC Glucose (mg/dL) 238 H 121 H (70-110) mg/dL Calcium 8.3 L (8.4-10.2) mg/dL Microbiology - Last 24 Hours (Table) 06/22/24 17:39 Blood Culture - Preliminary Blood 06/21/24 19:11 Anaerobic Culture - Preliminary Abdomen Nilda glabrata 06/22/24 00:25 Gram Stain - Final Sputum Sputum Culture - Final Enterobacter cloacae Complex Serratia marcescens ssp sakuen
[2024-06-25 17:41] LABS: Glucose,Whole Blood 205 mg/dL (70-110)
--- NOTE | 2024-06-25 19:13 | P.PN ---
Subjective Progress Note Date: 06/25/24 Patient is a 53-year-old female with diabetes, hypertension, COPD, CABG with multiple stents most recently in November 2018 maintained on aspirin and Plavix presents with complaints of worsening abdominal pain. She was discharged from the hospital 2 days ago on Ceftin and Flagyl for colitis. During that hospital course her CT abdomen/pelvis revealed right-sided colitis she was started on IV Flagyl and ciprofloxacin and her WBCs trended down (11.5 to 8.21 on discharge). She endorsed improved pain throughout her stay and on the day of discharge she was asking to go home after she successfully ate lunch. During her stay her C. difficile PCR was negative. Endorses one episode of bloody emesis yesterday, and approximately 6 other episodes of non-bloody emesis since discharge but has had no vomiting since admission last night. Endorses compliance with medications since discharge. States pain is 6/10 right now but was 100/10 just before coming to ED. Denies current chest pain, shortness of breath, nausea, vomiting, hematochezia. Endorses right lower quadrant pain. CT abdomen/pelvis revealed inflammatory changes involving the cecum with adjacent 2.3 cm intramural wall abscess and reactive small bowel ileus. WBCs 12.3, hemoglobin 13.4, platelets 580. Urinalysis unremarkable. Afebrile, tachycardic since improved, hypertensive with systolic [id number]. 06/07. Patient seen and examined at bedside. She states that the pain is improved. Surgery consultedno intervention at this time. Endorses mild diarrhea starting. WBC 7.62. 06/08. Patient seen and examined lying comfortably on bed. She states the pain is significantly improved. Lab results pending. 06/09. Patient is evaluated in follow up today. She is resting in bed she is holding her abdomen and reporting pain to the RLQ. She is requesting IV pain medication. Noted that follow up abdominal pelvis CT done today reveals similar findings with abnormally thickened wall of the colon adjacent to the ileocecal valve region. Similar surrounding mild inflammatory fat stranding consider focal colitis. Suspected intramural abscess here is smaller at 1.8 cm vs. 2.5 cm previously. Normal appendix. New prominent fluid within the stomach. Fluid- filled small bowel loops are more numerous now. Consider worsening ileus. Trace pelvic free fluid redemonstrated. No free air. Potassium 5.3. today. 06/10. Patient seen and examined at bedside. Patient still with significant amount of pain on the right side of the abdomen as well as epigastric area. She is NPO. She endorses nausea. She denies fever, chest pain, shortness of breath. Infectious disease consulted. Labs unremarkable. 06/11. Patient seen and examined. Continues to complain of abdominal pain. Denies any nausea or vomiting, passing gas. 06/12. Patient seen and examined at bedside lying comfortably. Continues to complain of abdominal pain. Excited but nervous for surgery. Denies any nausea, vomiting, fever, chills. Endorses passing gas and 3 episodes of diarrhea today. Patient going to the operating room today. Midline was placed this morning. 06/13. Patient seen lying in bed. She is postop day 1 status post diagnostic laparoscopic abdominal washout converted to open with ileocecectomy with drain placement. She is complaining of abdominal pain and a lot of pressure in epigastric region. She has not passed flatus. 06/14. Patient seen and examined laying in bed. She is postop day 2 status post diagnostic laparoscopic abdominal washout converted to open with ileocecectomy with drain placement. She endorses improved abdominal pain with pressure in the epigastric region. She has not passed flatus. OSCAR drain is serosanguineous fluid. Potassium 2.9. TPN has been started. 06/15. Patient seen laying in bed. She is postop day 3 status post diagnostic laparoscopic abdominal washout converted to open with ileocecectomy with drain placement. She endorses improved abdominal pain and increased ambulation. She has not passed flatus. She is ambulating well around the unit. OSCAR drain is serosanguineous fluid. Potassium is 3.2. Endorses nausea and relief with Zofran. 06/16. Patient seen and examined. Currently on TPN, states she feels better. Denies any nausea or vomiting, complaining of on and off abdominal pain. 06/17. Patient seen laying in bed. Postop day 5. Endorses epigastric abdominal pain. Ambulating well around the unit. Not passing flatus. 06/18. Patient seen and examined. Patient had 1 episode of emesis this morning, states she feels much better after that. Patient not passing gas. No bowel movement yet. 06/19. Patient seen and examined at bedside. No flatus, no bowel movement. Had an NG tube placed overnight. 06/20. Patient seen at bedside. Passing flatus, had a bowel movement yesterday. Still with NG tube with 900 mL output. Multiple episodes of vomiting yesterday. Patient states she feels less distended. 06/21. Patient seen and examined lying in bed. Endorses worsened abdominal pain. Endorses mild chest pain relieved with sitting up, worsened laying flat. 06/22. Patient transferred to ICU yesterday status post intubation due to acute on chronic hypoxic respiratory failure. Labs: WBCs 22.1, hemoglobin 12.4, platelets 463, sodium 138, potassium 4.8, CO2 24, creatinine 0.83. Patient underwent exploratory laparotomy yesterday. 06/23/2024 Patient is evaluated today in the intensive care unit awake alert and oriented. Postoperative day #2 exploratory laproscopy and bowel resection. Patient received an epidural yesterday; states the pain level is manageable today and significantly improved. Patient with NG tube in place and per nursing staff was sucking water of the oral swabs and had increased gastric output because of it. Those were changed out to the lemon glycerin swabs. White blood cell count 16.8, hgb 8.9, Na -140, BUN 25, creatinine 0.72. 06/24. Patient seen in the ICU. She is postop day 3 of exploratory laparotomy and bowel resection and status post epidural placement day 3. She states her pain is better. She endorses mild abdominal pain due to surgery. She is still with an NG tube with 500 mL output and left OSCAR drain with minimal output. Labs: WBCs 13.5, hemoglobin 8.4, sodium 138, potassium 3.3. States she has had 2 bowel movements. Endorses mild nausea, no vomiting. Abdominal wound culture growing shyam and sputum culture growing gram negative bacilli preliminarily. 06/25/2024 Patient is evaluated on the medical floor. Patient is postoperative day #4 exploratory laporotomy and bowel resection. Epidural remains in place. Patient is up to the bedside commode today. Weeks catheter has been removed. NG tube remains in place. Sputum culture finalized showing enterobacter cloacae complex, serratia marcescens, shyam from the abdominal cultures. ID following remains on IV eraxis and IV zosyn. Continues on TPN and patient remains NPO. Sodium today 135, potassium 3.3, magnesium 1.9. Review of Systems Constitutional: Denied any fatigue denied any fever. Cardio vascular: denied any chest pain, palpitations Gastrointestinal: denied any nausea, vomiting, diarrhea. Reports abdominal pain, improved. Pulmonary: Denied any shortness of breath cough Neurologic denied any new focal deficits All inpatient medications were reviewed and appropriate changes in these medications as dictated in the interval history and assessment and plan. PHYSICAL EXAMINATION: GENERAL: The patient is alert and oriented x3, not in any acute distress. Well developed, well nourished. HEENT: Pupils are round and equally reacting to light. EOMI. No scleral icterus. No conjunctival pallor. Normocephalic, atraumatic. No pharyngeal erythema. No thyromegaly. CARDIOVASCULAR: S1 and S2 present. No murmurs, rubs, or gallops. PULMONARY: Chest is clear to auscultation, no wheezing or crackles. ABDOMEN: Soft, tender, nondistended, normoactive bowel sounds. No palpable organomegaly. Wound vac in place with bloody drainage noted in the canister. NG tube in place. MUSCULOSKELETAL: No joint swelling or deformity. EXTREMITIES: No cyanosis, clubbing, or pedal edema. NEUROLOGICAL: Gross neurological examination did not reveal any focal deficits. SKIN: No rashes. Assessment/Plan: Intramural wall abscess Right sided colitis Postop day 12 status post diagnostic laparoscopic abdominal washout converted to open with ileocecectomy with drain placement Continue TPN Surgery following Continue with Zosyn per infectious disease Ileus Postop day 4 exploratory laparotomy, small bowel resection x 2, colon resection, lysis of adhesions Surgery following NPO Continue with NG tube suction Encourage ambulation Acute on chronic hypoxic respiratory failure Successfully extubated and currently on 3 L nasal cannula Hypokalemia, improved Monitor BMP Diabetes mellitus type 2 Insulin sliding scale Accuchecks ACHS Hypertension Continue Norvasc Hyperlipidemia Continue Lipitor COPD Continue Ventolin as needed Continue Symbicort Continue DuoNeb History of CABG and stents Continue aspirin Anxiety Continue Xanax as needed DVT prophylaxis: Subcutaneous heparin GI prophylaxis: Protonix The impression and plan of care has been dictated by Violetta Maya, Nurse Practitioner as directed. Dr. Lito MD I have performed a history and physical examination and medical decision making of this patient, discussed the same with the dictator, and agree with the dictators assessment and plan as written, documented as a scribe. Based on total visit time, I have performed more than 50% of this visit. Objective - Vital Signs Vital signs: Vital Signs Temp 98.2 F 06/25/24 15:17 Pulse 83 06/25/24 15:17 Resp 17 06/25/24 15:17 BP 112/75 06/25/24 15:17 Pulse Ox 91 L 06/25/24 15:17 FiO2 50 06/22/24 09:03 Intake & Output 06/25/24 06/25/24 06/26/24 06:59 18:59 06:59 Output Total 425 Balance -425 Output: Gastric Drainage 425 Other: Voiding Method Bedside Commode # Voids 2 1 - Labs CBC & Chem 7: 06/24/24 05:25 06/25/24 02:38 Labs: Abnormal Lab Results - Last 24 Hours (Table) 06/24/24 06/25/24 06/25/24 Range/Units 23:21 02:38 07:04 Sodium 135 L (137-145) mmol/L Potassium 3.3 L (3.5-5.1) mmol/L Glucose 149 H (74-99) mg/dL POC Glucose (mg/dL) 213 H 238 H (70-110) mg/dL Calcium 8.3 L (8.4-10.2) mg/dL 06/25/24 06/25/24 Range/Units 12:01 17:36 Sodium (137-145) mmol/L Potassium (3.5-5.1) mmol/L Glucose (74-99) mg/dL POC Glucose (mg/dL) 121 H 205 H (70-110) mg/dL Calcium (8.4-10.2) mg/dL Microbiology - Last 24 Hours (Table) 06/22/24 17:39 Blood Culture - Preliminary Blood Assessment and Plan Time with Patient: Less than 30
[2024-06-26 00:50] LABS: Glucose,Whole Blood 201 mg/dL (70-110)
[2024-06-26 04:30] LABS: African American GFR (CKD) >90 (>60 ml/min/1.73 sqM); Anion Gap 2 mmol/L; Blood Urea Nitrogen 16 mg/dL (7-17); Calcium 8.3 mg/dL (8.4-10.2); Carbon Dioxide 27 mmol/L (22-30); Chloride 106 mmol/L (98-107); Glucose 243 mg/dL (74-99); Non-African American GFR(CKD) >90 (>60 ml/min/1.73 sqM); Phosphorus 2.6 mg/dL (2.5-4.5); Potassium 3.8 mmol/L (3.5-5.1); Sodium 135 mmol/L (137-145)
[2024-06-26 04:34] LABS: Anisocytosis Slight; Basophils # (A) 0.1 k/uL (0-0.2); Basophils % (A) 0 %; Eosinophils # (A) 1.2 k/uL (0-0.7); Eosinophils % (A) 9 %; HCT 28.5 % (34.0-46.0); HGB 8.4 gm/dL (11.4-16.0); Hypochromasia Marked; Lymphocytes # (A) 1.5 k/uL (1.0-4.8); Lymphocytes % (A) 11 %; MCH 26.4 pg (25.0-35.0); MCHC 29.5 g/dL (31.0-37.0); MCV 89.6 fL (80.0-100.0); Mean Platelet Volume 9.5; Monocytes # (A) 0.7 k/uL (0-1.0); Monocytes % (A) 5 %; Neutrophils # (A) 9.2 k/uL (1.3-7.7); Neutrophils % (A) 71 %; Platelet Count 368 k/uL (150-450); Poikilocytosis Slight; RBC 3.18 m/uL (3.80-5.40); RDW 17.7 % (11.5-15.5); WBC 12.9 k/uL (3.8-10.6)
[2024-06-26 06:27] LABS: Glucose,Whole Blood 258 mg/dL (70-110)
--- NOTE | 2024-06-26 10:33 | P.PN ---
Subjective Patient is a 53-year-old female with diabetes, hypertension, COPD, CABG with multiple stents most recently in November 2018 maintained on aspirin and Plavix presents with complaints of worsening abdominal pain. She was discharged from the hospital 2 days ago on Ceftin and Flagyl for colitis. During that hospital course her CT abdomen/pelvis revealed right-sided colitis she was started on IV Flagyl and ciprofloxacin and her WBCs trended down (11.5 to 8.21 on discharge). She endorsed improved pain throughout her stay and on the day of discharge she was asking to go home after she successfully ate lunch. During her stay her C. difficile PCR was negative. Endorses one episode of bloody emesis yesterday, and approximately 6 other episodes of non-bloody emesis since discharge but has had no vomiting since admission last night. Endorses compliance with medications since discharge. States pain is 6/10 right now but was 100/10 just before coming to ED. Denies current chest pain, shortness of breath, nausea, vomiting, hematochezia. Endorses right lower quadrant pain. CT abdomen/pelvis revealed inflammatory changes involving the cecum with adjacent 2.3 cm intramural wall abscess and reactive small bowel ileus. WBCs 12.3, hemoglobin 13.4, platelets 580. Urinalysis unremarkable. Afebrile, tachycardic since improved, hypertensive with systolic [id number]. 06/07. Patient seen and examined at bedside. She states that the pain is improved. Surgery consultedno intervention at this time. Endorses mild diarrhea starting. WBC 7.62. 06/08. Patient seen and examined lying comfortably on bed. She states the pain is significantly improved. Lab results pending. 06/09. Patient is evaluated in follow up today. She is resting in bed she is holding her abdomen and reporting pain to the RLQ. She is requesting IV pain medication. Noted that follow up abdominal pelvis CT done today reveals similar findings with abnormally thickened wall of the colon adjacent to the ileocecal valve region. Similar surrounding mild inflammatory fat stranding consider focal colitis. Suspected intramural abscess here is smaller at 1.8 cm vs. 2.5 cm previously. Normal appendix. New prominent fluid within the stomach. Fluid- filled small bowel loops are more numerous now. Consider worsening ileus. Trace pelvic free fluid redemonstrated. No free air. Potassium 5.3. today. 06/10. Patient seen and examined at bedside. Patient still with significant amount of pain on the right side of the abdomen as well as epigastric area. She is NPO. She endorses nausea. She denies fever, chest pain, shortness of breath. Infectious disease consulted. Labs unremarkable. 06/11. Patient seen and examined. Continues to complain of abdominal pain. Denies any nausea or vomiting, passing gas. 06/12. Patient seen and examined at bedside lying comfortably. Continues to complain of abdominal pain. Excited but nervous for surgery. Denies any nausea, vomiting, fever, chills. Endorses passing gas and 3 episodes of diarrhea today. Patient going to the operating room today. Midline was placed this morning. 06/13. Patient seen lying in bed. She is postop day 1 status post diagnostic laparoscopic abdominal washout converted to open with ileocecectomy with drain placement. She is complaining of abdominal pain and a lot of pressure in epigastric region. She has not passed flatus. 06/14. Patient seen and examined laying in bed. She is postop day 2 status post diagnostic laparoscopic abdominal washout converted to open with ileo cecectomy with drain placement. She endorses improved abdominal pain with pressure in the epigastric region. She has not passed flatus. OSCAR drain is serosanguineous fluid. Potassium 2.9. TPN has been started. 06/15. Patient seen laying in bed. She is postop day 3 status post diagnostic laparoscopic abdominal washout converted to open with ileocecectomy with drain placement. She endorses improved abdominal pain and increased ambulation. She has not passed flatus. She is ambulating well around the unit. OSCAR drain is serosanguineous fluid. Potassium is 3.2. Endorses nausea and relief with Zofran. 06/16. Patient seen and examined. Currently on TPN, states she feels better. Denies any nausea or vomiting, complaining of on and off abdominal pain. 06/17. Patient seen laying in bed. Postop day 5. Endorses epigastric abdominal pain. Ambulating well around the unit. Not passing flatus. 06/18. Patient seen and examined. Patient had 1 episode of emesis this morning, states she feels much better after that. Patient not passing gas. No bowel movement yet. 06/19. Patient seen and examined at bedside. No flatus, no bowel movement. Had an NG tube placed overnight. 06/20. Patient seen at bedside. Passing flatus, had a bowel movement yesterday. Still with NG tube with 900 mL output. Multiple episodes of vomiting yesterday. Patient states she feels less distended. 06/21. Patient seen and examined lying in bed. Endorses worsened abdominal pain. Endorses mild chest pain relieved with sitting up, worsened laying flat. 06/22. Patient transferred to ICU yesterday status post intubation due to acute on chronic hypoxic respiratory failure. Labs: WBCs 22.1, hemoglobin 12.4, platelets 463, sodium 138, potassium 4.8, CO2 24, creatinine 0.83. Patient u nderwent exploratory laparotomy yesterday. 06/23. Patient is evaluated today in the intensive care unit awake alert and oriented. Postoperative day #2 exploratory laparotomy and bowel resection. Marcelo valel received an epidural yesterday; states the pain level is manageable today and significantly improved. Patient with NG tube in place and per nursing staff was sucking water of the oral swabs and had increased gastric output because of it. Those were changed out to the lemon glycerin swabs. White blood cell count 16.8, hgb 8.9, Na -140, BUN 25, creatinine 0.72. 06/24. Patient seen in the ICU. She is postop day 3 of exploratory laparotomy and bowel resection and status post epidural placement day 3. She states her pain is better. She endorses mild abdominal pain due to surgery. She is still with an NG tube with 500 mL output and left OSCAR drain with minimal output. Labs: WBCs 13.5, hemoglobin 8.4, sodium 138, potassium 3.3. States she has had 2 bowel movements. Endorses mild nausea, no vomiting. Abdominal wound culture growing shyam and sputum culture growing gram negative bacilli preliminarily. 06/25/2024 Patient is evaluated on the medical floor. Patient is postoperative day #4 exploratory laporotomy and bowel resection. Epidural remains in place. Patient is up to the bedside commode today. Weeks catheter has been removed. NG tube remains in place. Sputum culture finalized showing enterobacter cloacae complex, serratia marcescens, shyam from the abdominal cultures. ID following remains on IV eraxis and IV zosyn. Continues on TPN and patient remains NPO. Sodium today 135, potassium 3.3, magnesium 1.9. 06/26/2024 Patient seen at bedside. No significant overnight events. Patient is postoperative day 5 exploratory laporotomy and bowel resection. Patient has had first formed BM. ROS reviewed. Pertinent positives and negatives discussed above, a complete review of systems was performed and all the other systems were negative. Physical examination: Vital signs are stable. General: No acute distress. AO x 4. Currently with an NG tube. HEENT: Head exam is unremarkable. ACs patent. Nares patent. Lungs: Bilateral breath sounds present; no rhonchi, wheezes, or rales. Heart: Rate and rhythm are regular. S1-S2 present. No murmur/rub/gallops. Abdomen: Bowel sounds absent. Extremities: Trace edema present. Psych: Normal affect and mood. Cooperative. Assessment/Plan: Intramural wall abscess Right sided colitis Postop day 12 status post diagnostic laparoscopic abdominal washout converted to open with ileocecectomy with drain placement Continue TPN Surgery following Continue with Zosyn per infectious disease Ileus Postop day 4 exploratory laparotomy, small bowel resection x 2, colon resection, lysis of adhesions Surgery following NPO Continue with NG tube suction Encourage ambulation Added toradol 15 Q6 for further pain management Acute on chronic hypoxic respiratory failure Successfully extubated and currently on 3 L nasal cannula Hypokalemia, improved Monitor BMP Diabetes mellitus type 2 Insulin sliding scale changed to 5 units TID. Accuchecks ACHS Hypertension Continue Norvasc Hyperlipidemia Continue Lipitor COPD Continue Ventolin as needed Continue Symbicort Continue DuoNeb History of CABG and stents Continue aspirin Anxiety Continue Xanax as needed DVT prophylaxis: Subcutaneous heparin GI prophylaxis: Protonix Objective - Vital Signs Vital signs: Vital Signs Temp 99.1 F 06/26/24 00:30 Pulse 88 06/26/24 00:30 Resp 17 06/26/24 00:30 BP 117/79 06/26/24 00:30 Pulse Ox 95 06/26/24 00:30 FiO2 50 06/22/24 09:03 Intake & Output 06/25/24 06/26/24 06/26/24 18:59 06:59 18:59 Output Total 5 805 Balance -5 -805 Output: Gastric Drainage 800 Drainage 5 5 Left Lower Abdomen 5 5 Other: Voiding Method Bedside Commode # Voids 1 2 - Labs CBC & Chem 7: 06/26/24 02:47 06/26/24 02:47 Labs: Abnormal Lab Results - Last 24 Hours (Table) 06/25/24 06/25/24 06/26/24 Range/Units 12:01 17:36 00:29 WBC (3.8-10.6) k/uL RBC (3.80-5.40) m/uL Hgb (11.4-16.0) gm/dL Hct (34.0-46.0) % MCHC (31.0-37.0) g/dL RDW (11.5-15.5) % Neutrophils # (1.3-7.7) k/uL Eosinophils # (0-0.7) k/uL Sodium (137-145) mmol/L Glucose (74-99) mg/dL POC Glucose (mg/dL) 121 H 205 H 201 H (70-110) mg/dL Calcium (8.4-10.2) mg/dL 06/26/24 06/26/24 06/26/24 Range/Units 02:47 02:47 06:26 WBC 12.9 H (3.8-10.6) k/uL RBC 3.18 L (3.80-5.40) m/uL Hgb 8.4 L (11.4-16.0) gm/dL Hct 28.5 L (34.0-46.0) % MCHC 29.5 L (31.0-37.0) g/dL RDW 17.7 H (11.5-15.5) % Neutrophils # 9.2 H (1.3-7.7) k/uL Eosinophils # 1.2 H (0-0.7) k/uL Sodium 135 L (137-145) mmol/L Glucose 243 H (74-99) mg/dL POC Glucose (mg/dL) 258 H (70-110) mg/dL Calcium 8.3 L (8.4-10.2) mg/dL Microbiology - Last 24 Hours (Table) 06/22/24 17:39 Blood Culture - Preliminary Blood
--- NOTE | 2024-06-26 12:04 | P.PN ---
Subjective Progress Note Date: 06/26/24 Principal diagnosis: Reason for follow-up is colitis/intra-abdominal abscess Patient is a 53-year-old female who recently did have multiple admission to the hospital regarding right sided abdominal pain has been diagnosed with colitis with intramural abscess failing outpatient oral antibiotic therapy. Patient is status post diagnostic laparoscopic abdominal washout converted to open laparotomy with loop cecectomy and drain placement. Patient was taken back to the OR patient is status post exploratory laparotomy, extensive lysis of adhesions greater than 1/3 of the case, small bowel resection x 2, proximal right colon resection completed on 06/22/2024 afternoon operative report did not mention any perforation or abscess. On today's evaluation that is 06/26/2024, the patient continues to be afebrile, the patient is on 4 L current oxygen and breathing comfortably, the Pt denies having any chest pain or cough, the patient still having NG and did have significant output denies any worsening abdominal pain. Patient white count is down to 12.9, creatinine 0.55 Objective - Vital Signs Vital signs: Vital Signs Temp 99.1 F 06/26/24 00:30 Pulse 88 06/26/24 00:30 Resp 17 06/26/24 00:30 BP 117/79 06/26/24 00:30 Pulse Ox 94 L 06/26/24 07:40 FiO2 50 06/22/24 09:03 Intake & Output 06/25/24 06/26/24 06/26/24 18:59 06:59 18:59 Output Total 5 805 Balance -5 -805 Output: Gastric Drainage 800 Drainage 5 5 Left Lower Abdomen 5 5 Other: Voiding Method Bedside Commode # Voids 1 2 - Exam GENERAL DESCRIPTION: Middle-age female lying in bed in no distress RESPIRATORY SYSTEM: Unlabored breathing , decreased breath sounds at bases HEART: S1 S2 regular rate and rhythm , ABDOMEN: Soft , midline incision is currently intact minimal tenderness EXTREMITIES: No edema feet - Labs CBC & Chem 7: 06/26/24 02:47 06/26/24 02:47 Labs: Abnormal Lab Results - Last 24 Hours (Table) 06/25/24 06/25/24 06/26/24 Range/Units 12:01 17:36 00:29 WBC (3.8-10.6) k/uL RBC (3.80-5.40) m/uL Hgb (11.4-16.0) gm/dL Hct (34.0-46.0) % MCHC (31.0-37.0) g/dL RDW (11.5-15.5) % Neutrophils # (1.3-7.7) k/uL Eosinophils # (0-0.7) k/uL Sodium (137-145) mmol/L Glucose (74-99) mg/dL POC Glucose (mg/dL) 121 H 205 H 201 H (70-110) mg/dL Calcium (8.4-10.2) mg/dL 06/26/24 06/26/24 06/26/24 Range/Units 02:47 02:47 06:26 WBC 12.9 H (3.8-10.6) k/uL RBC 3.18 L (3.80-5.40) m/uL Hgb 8.4 L (11.4-16.0) gm/dL Hct 28.5 L (34.0-46.0) % MCHC 29.5 L (31.0-37.0) g/dL RDW 17.7 H (11.5-15.5) % Neutrophils # 9.2 H (1.3-7.7) k/uL Eosinophils # 1.2 H (0-0.7) k/uL Sodium 135 L (137-145) mmol/L Glucose 243 H (74-99) mg/dL POC Glucose (mg/dL) 258 H (70-110) mg/dL Calcium 8.3 L (8.4-10.2) mg/dL Microbiology - Last 24 Hours (Table) 06/22/24 17:39 Blood Culture - Preliminary Blood Assessment and Plan (1) Colitis with abscess Current Visit: Yes Status: Acute Code(s): K52.9 - NONINFECTIVE GASTROENTERITIS AND COLITIS, UNSPECIFIED; K63.0 - ABSCESS OF INTESTINE SNOMED Code(s): 66825974 Plan: 1patient with a multiple admission to the hospital has been diagnosed with a colitis with intramural abscess that has failed outpatient oral Ceftin and Flagyl therapy with repeat CT did shows persistent features of colitis around the cecum with intramural abscess and slow clinical response to the medical therapy patient is status post laparotomy with ileocecectomy and drain placement unfortunately no cultures were done 2-patient remains to be afebrile,, patient did have CT with evidence of ileus did not mention any perforation or colitis abdominal x-rays with extensive bowel gas 3-patient taken back to the OR in this patient who is status post exploratory laparotomy resection of the portion of the bowel and abdominal culture currently growing Nilda albicans as well as glabrata, sputum cultures growing Enterobacter and Serratia sensitive to Zosyn 4patient did have resolution of the fever white count is slowly trending down to 12,000 today 5patient to continue with Eraxis and Zosyn and continue supportive care Dictation was produced using [employer] dictation software. please excuse any grammatical, word or spelling errors. Time with Patient: Less than 30
[2024-06-26 12:09] LABS: Glucose,Whole Blood 207 mg/dL (70-110)
[2024-06-26] MEDS: KETOROLAC 15 MG/ML 1 ML VIAL IVP SCH (12:23)
--- NOTE | 2024-06-26 14:09 | P.PN ---
Subjective Progress Note Date: 06/26/24 This is a 53-year-old female patient is being seen in consultation as the patient has noted to be more hypoxic during this current admission. The patient has been in the hospital since 06/06/2023 and the patient has a perforated diverticular abscess. The patient has undergone a diagnostic laparoscopy con verted to open ileocecectomy and this was done on 06/14/2024. Since then, the patient has been kept NPO. NG tube still in place. No reported aspiration. Surgical site is dry clean and intact. The patient's output from the OSCAR drain is serosanguineous. The patient has no fever or chills. No hemodynamic instability. She is known to have COPD and she claims that she has been oxygen dependent at home somewhere between 2 to 3 L and she was using it only on a history basis. Her oxygen requirements have been gradually increasing and the patient is currently on 5 L of oxygen nasal cannula. She is using incentive spirometer. She is laying down in bed. Reviewed the most recent chest x-ray an d it shows some atelectatic changes in lung bases bilaterally. Otherwise, there is no airspace's or consolidations. No chest pain. No pleurisy or hemoptysis. The patient has been maintained on heparin subcu for DVT prophylaxis throughout the admission. No swelling in lower extremities. No other complaints of respiratory distress for now. The white cell count of 10.7, hemoglobin 9.5 and a platelet count of 382. The patient's D-dimer is at 5.33 which is expectedly elevated. Sodium levels at 136, BUN is 19 with a creatinine of 0.51 and a potassium level is at 4. proBNP level is 115. She is awake and alert and she is communicating. On today's evaluation of 06/22/2024, the patient remains intubated on mechanical ventilator. The patient was taken to the operating room yesterday and the patient underwent small bowel resection, large bowel resection and lysis of adhesions. Post surgery, the patient was kept intubated the patient was brought into the ICU on propofol which is running at 50 mcg/kg/min. This morning, she is on assist-control mode of mechanical ventilation at rate of 18, tidal volume of 400, FiO2 50% with a PEEP of 5. The blood gas showed a pH of 7.37 with a pCO2 of 43 and pO2 of 127. Chest x-ray shows some mild elevation of the right hemidiaphragm. Otherwise no other significant abnormalities. The patient remains on TPN for nutritional support at a rate of 35 cc an hour. The patient is also on Levemir insulin 15 units daily plus a sliding scale coverage and normal citrate of 75 cc an hour. The patient has a white cell count of 22, hemoglobin of 12.4 and platelet count of 463. Rest of the electrolytes are all within normal limits. BUN 30 with a creatinine of 0.8. She remains n.p.o. on TPN. No other significant events overnight. She is calm and comfortable at this point. IV antibiotics in the form of Zosyn. On 06/23/2024, patient is being seen for a follow-up. The patient was weaned off the mechanical ventilator and the patient was extubated yesterday without any major difficulties. Over the afternoon, the patient started having increased abdominal pain. Based on that, the patient was given epidural and currently she is under adequate pain control with epidural at 9 cc an hour with Dilaudid and bupivacaine. OSCAR drain output is minimal and serosanguineous. NG output has been more than 1 L over the past 12 to 24 hours. The patient remains on TPN at rate of 87 cc an hour normal citrate of 75 cc an hour. She is currently extu bated on 3 L/min nasal cannula. The white cell count is 16.8 with hemoglobin 8.5 and a platelet count of 335. BUN is 25 with a creatinine of 0.7 and sodium levels at 140. On examination, she has no significant bowel sounds. Chest x- ray from yesterday was noted. There is some elevation of the right hemidiaphragm. Otherwise no other acute abnormalities noted. She was provided an incentive spirometer. Patient was seen on 06/24/24, patient remains on nasal cannula at 6 L, satting 94%, remains in the ICU, doing quite well. Relatively asymptomatic, tolerated the extubation well over the last couple of days. Patient is on TPN at 87 cc/h IV fluid at 75 cc/h her chest x-ray showed minimal basilar atelectasis specially at the right base, patient is doing well with incentive spirometry. And I plan to transfer the patient out of the ICU to the regular medical floor today WBC count is 13.5 hemoglobin 8.4 basic metabolic profile is normal renal profile is done The patient is seen today June 25, 2024 in follow-up on the regular medical floor. She was transferred out of the intensive care unit yesterday. She is awake and alert in no acute distress. She is maintaining O2 saturations in the 90s on 4 L/min per nasal cannula. She has normal staying at KVO. Nasogastric tube remains in place. She is working well with the incentive spirometer and pulling approximately 1500 mL. Her sputum culture was positive for Enterobacter cloacae complex and Serratia marcescens. Abdominal cultures positive for Nilda albicans and glabrata. Sodium 135. Potassium 3.3. Bicarb 27. BUN 17. Creatinine 0.58. Glucose 149. She remains on DuoNeb inhalations, Symbicort. Heparin for DVT prophylaxis. Antibiotics in the form of Zosyn and Eraxis. She is being nourished with TPN and lipids. The patient is seen today June 26, 2024 in follow-up on the regular medical floor. She is currently sitting up in a chair at the bedside. Awake and alert in no acute distress. She is maintaining good O2 saturations in the 90s on 4 L/min per nasal cannula. She is still having ongoing surgical site pain of the abdomen. Her abdominal dressing is dry and intact. OSCAR drain remains in place. She did have a bowel movement. Nasogastric tube remains in place. She remains NPO. Abdominal wound cultures were positive for Nilda. Sputum culture positive for Enterobacter cloacae complex, Serratia marcescens. Blood cultures revealing no growth. White count 12.9. Hemoglobin 8.4. Platelets 368. Sodium 135. Potassium 3.8. Bicarb 27. BUN 16. Creatinine 0.55. Glucose 243. Being nursed with TPN and lipids. Remains on Eraxis and Zosyn. Normal saline at 75 mL/h. Objective - Vital Signs Vital signs: Vital Signs Temp 98.6 F 06/26/24 07:56 Pulse 103 H 06/26/24 07:56 Resp 18 06/26/24 07:56 BP 163/87 06/26/24 07:56 Pulse Ox 95 06/26/24 07:56 FiO2 50 06/22/24 09:03 Intake & Output 06/25/24 06/26/24 06/26/24 18:59 06:59 18:59 Output Total 5 805 Balance -5 -805 Output: Gastric Drainage 800 Drainage 5 5 Left Lower Abdomen 5 5 Other: Voiding Method Bedside Commode # Voids 1 2 - Exam GENERAL EXAM: Alert, pleasant 53-year-old female, on 4 L nasal cannula, up in a chair, fairly comfortable in no apparent distress. HEAD: Normocephalic. EYES: Normal reaction of pupils, equal size. NOSE: Clear with pink turbinates. Nasogastric tube remains in place. THROAT: No erythema or exudates. NECK: No masses, no JVD. CHEST: No chest wall deformity. LUNGS: Equal air entry with no crackles, wheeze, rhonchi or dullness. CVS: S1 and S2 normal with no audible murmur, regular rhythm. ABDOMEN: Abdominal dressing dry and intact. OSCAR drain in place with a small amount of serosanguineous output. SPINE: No scoliosis or deformity SKIN: No rashes CENTRAL NERVOUS SYSTEM: No focal deficits, tone is normal in all 4 extremities. EXTREMITIES: There is no peripheral edema. No clubbing, no cyanosis. Peripheral pulses are intact. - Labs CBC & Chem 7: 06/26/24 02:47 06/26/24 02:47 Labs: Abnormal Lab Results - Last 24 Hours (Table) 06/25/24 06/26/24 06/26/24 Range/Units 17:36 00:29 02:47 WBC (3.8-10.6) k/uL RBC (3.80-5.40) m/uL Hgb (11.4-16.0) gm/dL Hct (34.0-46.0) % MCHC (31.0-37.0) g/dL RDW (11.5-15.5) % Neutrophils # (1.3-7.7) k/uL Eosinophils # (0-0.7) k/uL Sodium 135 L (137-145) mmol/L Glucose 243 H (74-99) mg/dL POC Glucose (mg/dL) 205 H 201 H (70-110) mg/dL Calcium 8.3 L (8.4-10.2) mg/dL 06/26/24 06/26/24 06/26/24 Range/Units 02:47 06:26 12:07 WBC 12.9 H (3.8-10.6) k/uL RBC 3.18 L (3.80-5.40) m/uL Hgb 8.4 L (11.4-16.0) gm/dL Hct 28.5 L (34.0-46.0) % MCHC 29.5 L (31.0-37.0) g/dL RDW 17.7 H (11.5-15.5) % Neutrophils # 9.2 H (1.3-7.7) k/uL Eosinophils # 1.2 H (0-0.7) k/uL Sodium (137-145) mmol/L Glucose (74-99) mg/dL POC Glucose (mg/dL) 258 H 207 H (70-110) mg/dL Calcium (8.4-10.2) mg/dL Microbiology - Last 24 Hours (Table) 06/22/24 17:39 Blood Culture - Preliminary Blood Assessment and Plan Assessment: Acute on chronic hypoxemia. With postoperative atelectasis and underlying COPD Diverticular abscess/perforated diverticulitis and the patient has undergone open ileocecectomy on June 11 2024 Abdominal pain status post epidural pain control with bupivacaine and Dilaudid N.p.o. and the patient remains on TPN for nutritional support Coronary artery disease with bypass surgery COPD, maintained on a combination of Symbicort, Spiriva and albuterol rescue inhaler Hypertension Diabetes mellitus type 2 Plan: The patient was seen and evaluated Labs and medications reviewed Working well with the incentive spirometer Titrate down the FiO2 as tolerated Increase her activity as tolerated Remains nothing by mouth Continued on TPN and lipids We will continue to follow I have personally seen and examined the patient, performed the documentation and the assessment and plan as written. Number of minutes spent on the visit: 10.
--- NOTE | 2024-06-26 15:23 | P.PN ---
Subjective Progress Note Date: 06/26/24 CHIEF COMPLAINT: Colitis with intramural wall abscess HISTORY OF PRESENT ILLNESS: Patient is status post diagnostic laparoscopy converted to open with ileocecectomy on 06/11/24. She was taken to back to the OR on 06/21/2024 and is status post exploratory laparotomy, extensive lysis of adhesions, small bowel resection x 2 and proximal right colon resection for small bowel obstruction secondary to adhesions and inflammation. Epidural discontinued yesterday. Patient is complaining of abdominal pain since epidural root is removed. She did have a episode of vomiting this morning. She does r eport having bowel movements. NG tube output 600 mL. Patient is drinking the water with her oral mouth swabslikely contributing to the amount of output through the NG tube. Afebrile. Mildly tachycardic. PHYSICAL EXAM: VITAL SIGNS: Reviewed. GENERAL: no acute distress. ABDOMEN: Mildly distended. Tenderness at incision site. Purulent serosanguineous drainage from the distal aspect of the incision. Iodoform packing in place. OSCAR drain with 5 mL serosanguineous output. NEUROLOGIC: Alert and oriented. Cranial nerves II through XII grossly intact. ASSESSMENT: 1. Colitis with intramural wall abscess 2. Small bowel obstruction secondary to adhesions and inflammation 3. Moderate protein calorie malnutrition PLAN: -Toradol added for pain management -Further incisional packing to be removed today. Prevena wound VAC dressing ordered to cover incision -Continue NG tube for decompression -Keep patient n.p.o. -Continue TPN for nutrition support -Continue antibiotics per infectious disease -Encourage patient to increase activity level -DVT prophylaxis subcu heparin GI prophylaxis Protonix Physician Engraver Block note has been reviewed by physician. Signing provider agrees with the documented findings, assessment, and plan of care. Objective - Vital Signs Vital signs: Vital Signs Temp 98.6 F 06/26/24 07:56 Pulse 103 H 06/26/24 07:56 Resp 18 06/26/24 07:56 BP 163/87 06/26/24 07:56 Pulse Ox 95 06/26/24 07:56 FiO2 50 06/22/24 09:03 Intake & Output 06/25/24 06/26/24 06/26/24 18:59 06:59 18:59 Output Total 5 805 Balance -5 -805 Output: Gastric Drainage 800 Drainage 5 5 Left Lower Abdomen 5 5 Other: Voiding Method Bedside Commode # Voids 1 2 - Labs CBC & Chem 7: 06/26/24 02:47 06/26/24 02:47 Labs: Abnormal Lab Results - Last 24 Hours (Table) 06/25/24 06/26/24 06/26/24 Range/Units 17:36 00:29 02:47 WBC (3.8-10.6) k/uL RBC (3.80-5.40) m/uL Hgb (11.4-16.0) gm/dL Hct (34.0-46.0) % MCHC (31.0-37.0) g/dL RDW (11.5-15.5) % Neutrophils # (1.3-7.7) k/uL Eosinophils # (0-0.7) k/uL Sodium 135 L (137-145) mmol/L Glucose 243 H (74-99) mg/dL POC Glucose (mg/dL) 205 H 201 H (70-110) mg/dL Calcium 8.3 L (8.4-10.2) mg/dL 06/26/24 06/26/24 06/26/24 Range/Units 02:47 06:26 12:07 WBC 12.9 H (3.8-10.6) k/uL RBC 3.18 L (3.80-5.40) m/uL Hgb 8.4 L (11.4-16.0) gm/dL Hct 28.5 L (34.0-46.0) % MCHC 29.5 L (31.0-37.0) g/dL RDW 17.7 H (11.5-15.5) % Neutrophils # 9.2 H (1.3-7.7) k/uL Eosinophils # 1.2 H (0-0.7) k/uL Sodium (137-145) mmol/L Glucose (74-99) mg/dL POC Glucose (mg/dL) 258 H 207 H (70-110) mg/dL Calcium (8.4-10.2) mg/dL Microbiology - Last 24 Hours (Table) 06/21/24 19:11 Anaerobic Culture - Final Abdomen Nilda glabrata 06/22/24 17:39 Blood Culture - Preliminary Blood Assessment and Plan Assessment: remove packing clamp ng tube possible start of clear liquid diet Time with Patient: Greater than 30
[2024-06-26 17:12] LABS: Glucose,Whole Blood 175 mg/dL (70-110)
[2024-06-26 21:02] LABS: Glucose,Whole Blood 216 mg/dL (70-110)
[2024-06-26] MEDS: INSULIN ASPART (NovoLOG) 100 UNIT/ML VIAL SQ SCH (23:27)
[2024-06-27 00:15] LABS: Glucose,Whole Blood 114 mg/dL (70-110)
[2024-06-27 05:44] LABS: Glucose,Whole Blood 232 mg/dL (70-110)
[2024-06-27 06:22] LABS: Phosphorus 2.6 mg/dL (2.5-4.5)
[2024-06-27 09:27] LABS: ALT 10 U/L (4-34); AST 27 U/L (14-36); African American GFR (CKD) >90 (>60 ml/min/1.73 sqM); Albumin 2.2 g/dL (3.5-5.0); Alkaline Phosphatase 145 U/L (38-126); Anion Gap 2 mmol/L; Blood Urea Nitrogen 18 mg/dL (7-17); Calcium 8.4 mg/dL (8.4-10.2); Carbon Dioxide 28 mmol/L (22-30); Chloride 108 mmol/L (98-107); Globulin 2.2 g/dL; Glucose 224 mg/dL (74-99); Non-African American GFR(CKD) >90 (>60 ml/min/1.73 sqM); Potassium 3.6 mmol/L (3.5-5.1); Sodium 138 mmol/L (137-145); Total Bilirubin 1.1 mg/dL (0.2-1.3); Total Protein 4.4 g/dL (6.3-8.2)
--- NOTE | 2024-06-27 09:32 | P.PN ---
Subjective Patient is a 53-year-old female with diabetes, hypertension, COPD, CABG with multiple stents most recently in November 2018 maintained on aspirin and Plavix presents with complaints of worsening abdominal pain. She was discharged from the hospital 2 days ago on Ceftin and Flagyl for colitis. During that hospital course her CT abdomen/pelvis revealed right-sided colitis she was started on IV Flagyl and ciprofloxacin and her WBCs trended down (11.5 to 8.21 on discharge). She endorsed improved pain throughout her stay and on the day of discharge she was asking to go home after she successfully ate lunch. During her stay her C. difficile PCR was negative. Endorses one episode of bloody emesis yesterday, and approximately 6 other episodes of non-bloody emesis since discharge but has had no vomiting since admission last night. Endorses compliance with medications since discharge. States pain is 6/10 right now but was 100/10 just before coming to ED. Denies current chest pain, shortness of breath, nausea, vomiting, hematochezia. Endorses right lower quadrant pain. CT abdomen/pelvis revealed inflammatory changes involving the cecum with adjacent 2.3 cm intramural wall abscess and reactive small bowel ileus. WBCs 12.3, hemoglobin 13.4, platelets 580. Urinalysis unremarkable. Afebrile, tachycardic since improved, hypertensive with systolic [id number]. 06/07. Patient seen and examined at bedside. She states that the pain is improved. Surgery consultedno intervention at this time. Endorses mild diarrhea starting. WBC 7.62. 06/08. Patient seen and examined lying comfortably on bed. She states the pain is significantly improved. Lab results pending. 06/09. Patient is evaluated in follow up today. She is resting in bed she is holding her abdomen and reporting pain to the RLQ. She is requesting IV pain medication. Noted that follow up abdominal pelvis CT done today reveals similar findings with abnormally thickened wall of the colon adjacent to the ileocecal valve region. Similar surrounding mild inflammatory fat stranding consider focal colitis. Suspected intramural abscess here is smaller at 1.8 cm vs. 2.5 cm previously. Normal appendix. New prominent fluid within the stomach. Fluid- filled small bowel loops are more numerous now. Consider worsening ileus. Trace pelvic free fluid redemonstrated. No free air. Potassium 5.3. today. 06/10. Patient seen and examined at bedside. Patient still with significant amount of pain on the right side of the abdomen as well as epigastric area. She is NPO. She endorses nausea. She denies fever, chest pain, shortness of breath. Infectious disease consulted. Labs unremarkable. 06/11. Patient seen and examined. Continues to complain of abdominal pain. Denies any nausea or vomiting, passing gas. 06/12. Patient seen and examined at bedside lying comfortably. Continues to complain of abdominal pain. Excited but nervous for surgery. Denies any nausea, vomiting, fever, chills. Endorses passing gas and 3 episodes of diarrhea today. Patient going to the operating room today. Midline was placed this morning. 06/13. Patient seen lying in bed. She is postop day 1 status post diagnostic laparoscopic abdominal washout converted to open with ileocecectomy with drain placement. She is complaining of abdominal pain and a lot of pressure in epigastric region. She has not passed flatus. 06/14. Patient seen and examined laying in bed. She is postop day 2 status post diagnostic laparoscopic abdominal washout converted to open with ile ocecectomy with drain placement. She endorses improved abdominal pain with pressure in the epigastric region. She has not passed flatus. OSCAR drain is serosanguineous fluid. Potassium 2.9. TPN has been started. 06/15. Patient seen laying in bed. She is postop day 3 status post diagnostic laparoscopic abdominal washout converted to open with ileocecectomy with drain placement. She endorses improved abdominal pain and increased ambulation. She has not passed flatus. She is ambulating well around the unit. OSCAR drain is serosanguineous fluid. Potassium is 3.2. Endorses nausea and relief with Zofran. 06/16. Patient seen and examined. Currently on TPN, states she feels better. Denies any nausea or vomiting, complaining of on and off abdominal pain. 06/17. Patient seen laying in bed. Postop day 5. Endorses epigastric abdominal pain. Ambulating well around the unit. Not passing flatus. 06/18. Patient seen and examined. Patient had 1 episode of emesis this morning, states she feels much better after that. Patient not passing gas. No bowel movement yet. 06/19. Patient seen and examined at bedside. No flatus, no bowel movement. Had an NG tube placed overnight. 06/20. Patient seen at bedside. Passing flatus, had a bowel movement yesterday. Still with NG tube with 900 mL output. Multiple episodes of vomiting yesterday. Patient states she feels less distended. 06/21. Patient seen and examined lying in bed. Endorses worsened abdominal pain. Endorses mild chest pain relieved with sitting up, worsened laying flat. 06/22. Patient transferred to ICU yesterday status post intubation due to acute on chronic hypoxic respiratory failure. Labs: WBCs 22.1, hemoglobin 12.4, platelets 463, sodium 138, potassium 4.8, CO2 24, creatinine 0.83. Patient underwent exploratory laparotomy yesterday. 06/23. Patient is evaluated today in the intensive care unit awake alert and oriented. Postoperative day #2 exploratory laparotomy and bowel resection. P atient received an epidural yesterday; states the pain level is manageable today and significantly improved. Patient with NG tube in place and per nursing staff was sucking water of the oral swabs and had increased gastric output because of it. Those were changed out to the lemon glycerin swabs. White blood cell count 16.8, hgb 8.9, Na -140, BUN 25, creatinine 0.72. 06/24. Patient seen in the ICU. She is postop day 3 of exploratory laparotomy and bowel resection and status post epidural placement day 3. She states her pain is better. She endorses mild abdominal pain due to surgery. She is still with an NG tube with 500 mL output and left OSCAR drain with minimal output. Labs: WBCs 13.5, hemoglobin 8.4, sodium 138, potassium 3.3. States she has had 2 bowel movements. Endorses mild nausea, no vomiting. Abdominal wound culture growing nilda and sputum culture growing gram negative bacilli preliminarily. 06/25/2024 Patient is evaluated on the medical floor. Patient is postoperative day #4 exploratory laporotomy and bowel resection. Epidural remains in place. Patient is up to the bedside commode today. Weeks catheter has been removed. NG tube remains in place. Sputum culture finalized showing enterobacter cloacae complex, serratia marcescens, nilda from the abdominal cultures. ID following remains on IV eraxis and IV zosyn. Continues on TPN and patient remains NPO. Sodium today 135, potassium 3.3, magnesium 1.9. 06/26/2024 Patient seen at bedside. No significant overnight events. Patient is postoperative day 5 exploratory laporotomy and bowel resection. Patient has had first formed BM. 06/27/2024 Patient seen at bedside. No significant overnight events. Patient reports pain is about the same as yesterday, but tolerable. No BM since yesterday. Surgery planning on removing NG tube if patient does not significantly fill NG tube container. If NG tube is able to be removed, will start on clears. ROS reviewed. Pertinent positives and negatives discussed above, a complete review of systems was performed and all the other systems were negative. Physical examination: Vital signs are stable. General: No acute distress. AO x 4. Currently with an NG tube. HEENT: Head exam is unremarkable. ACs patent. Nares patent. Lungs: Bilateral breath sounds present; no rhonchi, wheezes, or rales. Heart: Rate and rhythm are regular. S1-S2 present. No murmur/rub/gallops. Abdomen: Bowel sounds absent. Extremities: Trace edema present. Psych: Normal affect and mood. Cooperative. Assessment/Plan: Intramural wall abscess Right sided colitis Postop day 12 status post diagnostic laparoscopic abdominal washout converted to open with ileocecectomy with drain placement Continue TPN Surgery following Continue with Zosyn per infectious disease Ileus Postop day 4 exploratory laparotomy, small bowel resection x 2, colon resection, lysis of adhesions Surgery following NPO Continue with NG tube suction Encourage ambulation Added toradol 15 Q6 for further pain management Acute on chronic hypoxic respiratory failure Successfully extubated and currently on 4 L nasal cannula Continue to wean oxygen Hypokalemia, improved Monitor BMP Diabetes mellitus type 2 Insulin sliding scale changed to 5 units TID. Accuchecks ACHS Hypertension Continue Norvasc Hyperlipidemia Continue Lipitor COPD Continue Ventolin as needed Continue Symbicort Continue DuoNeb History of CABG and stents Continue aspirin Anxiety Continue Xanax as needed DVT prophylaxis: Subcutaneous heparin GI prophylaxis: Protonix Dr. Lito MD I have performed a history and physical examination and medical decision making of this patient, discussed the same with the the resident, and agree with the assessment and plan as written. I performed brief physical exam. Objective - Vital Signs Vital signs: Vital Signs Temp 98.1 F 06/27/24 02:00 Pulse 85 06/27/24 02:00 Resp 18 06/26/24 15:40 BP 120/80 06/27/24 02:00 Pulse Ox 95 06/27/24 02:00 FiO2 50 06/22/24 09:03 Intake & Output 06/26/24 06/27/24 06/27/24 18:59 06:59 18:59 Output Total 800 Balance -800 Output: Gastric Drainage 800 Other: # Voids 1 # Bowel Movements 1 - Labs CBC & Chem 7: 06/26/24 02:47 06/27/24 05:04 Labs: Abnormal Lab Results - Last 24 Hours (Table) 06/26/24 06/26/24 06/26/24 Range/Units 12:07 16:51 21:00 POC Glucose (mg/dL) 207 H 175 H 216 H (70-110) mg/dL 06/27/24 06/27/24 Range/Units 00:13 05:42 POC Glucose (mg/dL) 114 H 232 H (70-110) mg/dL Microbiology - Last 24 Hours (Table) 06/21/24 19:11 Anaerobic Culture - Final Abdomen Nilda glabrata
[2024-06-27 11:22] LABS: Glucose,Whole Blood 229 mg/dL (70-110)
--- NOTE | 2024-06-27 13:05 | P.PN ---
Subjective Progress Note Date: 06/27/24 CHIEF COMPLAINT: Colitis with intramural wall abscess HISTORY OF PRESENT ILLNESS: Patient is status post diagnostic laparoscopy converted to open with ileocecectomy on 06/11/24. She was taken to back to the OR on 06/21/2024 and is status post exploratory laparotomy, extensive lysis of adhesions, small bowel resection x 2 and proximal right colon resection for small bowel obstruction secondary to adhesions and inflammation. Patient had NG tube removed this morning. She does complain of abdominal pain. Her abdominal packing was removed yesterday. Afebrile. Tachycardia improved PHYSICAL EXAM: VITAL SIGNS: Reviewed. GENERAL: no acute distress. ABDOMEN: Mildly distended. Tenderness at incision site. Prevena wound VAC intact. NEUROLOGIC: Alert and oriented. Cranial nerves II through XII grossly intact. ASSESSMENT: 1. Colitis with intramural wall abscess 2. Small bowel obstruction secondary to adhesions and inflammation 3. Moderate protein calorie malnutrition PLAN -NG tube discontinued -Start clear liquid diet -Continue pain management -Encourage patient to ambulate -Encourage patient to use incentive spirometer -Continue antibiotics per infectious disease -Repeat labs in a.m. -DVT prophylaxis subcu heparin GI prophylaxis Protonix Physician Coach Driver note has been reviewed by physician. Signing provider agrees with the documented findings, assessment, and plan of care. Objective - Vital Signs Vital signs: Vital Signs Temp 97.8 F 06/27/24 07:57 Pulse 89 06/27/24 07:57 Resp 18 06/27/24 07:57 BP 150/86 06/27/24 07:57 Pulse Ox 97 06/27/24 09:28 FiO2 50 06/22/24 09:03 Intake & Output 06/26/24 06/27/24 06/27/24 18:59 06:59 18:59 Output Total 800 240 Balance -800 -240 Output: Gastric Drainage 800 200 Drainage 40 Left Lower Abdomen 40 Other: # Voids 1 # Bowel Movements 1 - Labs CBC & Chem 7: 06/26/24 02:47 06/27/24 05:04 Labs: Abnormal Lab Results - Last 24 Hours (Table) 06/26/24 06/26/24 06/27/24 Range/Units 16:51 21:00 00:13 Chloride (98-107) mmol/L BUN (7-17) mg/dL Glucose (74-99) mg/dL POC Glucose (mg/dL) 175 H 216 H 114 H (70-110) mg/dL Alkaline Phosphatase (38-126) U/L Total Protein (6.3-8.2) g/dL Albumin (3.5-5.0) g/dL 06/27/24 06/27/24 06/27/24 Range/Units 05:04 05:42 11:21 Chloride 108 H (98-107) mmol/L BUN 18 H (7-17) mg/dL Glucose 224 H (74-99) mg/dL POC Glucose (mg/dL) 232 H 229 H (70-110) mg/dL Alkaline Phosphatase 145 H (38-126) U/L Total Protein 4.4 L (6.3-8.2) g/dL Albumin 2.2 L (3.5-5.0) g/dL Microbiology - Last 24 Hours (Table) 06/21/24 19:11 Anaerobic Culture - Final Abdomen Nilda glabrata Assessment and Plan Assessment: start clear liquids continue prevena Time with Patient: Less than 30
--- NOTE | 2024-06-27 14:30 | P.PN ---
Subjective Progress Note Date: 06/27/24 Principal diagnosis: Reason for follow-up is colitis/intra-abdominal abscess Patient is a 53-year-old female who recently did have multiple admission to the hospital regarding right sided abdominal pain has been diagnosed with colitis with intramural abscess failing outpatient oral antibiotic therapy. Patient is status post diagnostic laparoscopic abdominal washout converted to open laparotomy with loop cecectomy and drain placement. Patient was taken back to the OR patient is status post exploratory laparotomy, extensive lysis of adhesions greater than 1/3 of the case, small bowel resection x 2, proximal right colon resection completed on 06/22/2024 afternoon operative report did not mention any perforation or abscess. On today's evaluation that is 06/27/2024, Patient is afebrile patient is currently on nasal cannula oxygen and denies having any shortness of breath, the patient denies any chest pain or cough, the patient NG has been discontinued no nausea vomiting abdominal pain is controlled Patient did have a creatinine 0.56 no CBC was done today Objective - Vital Signs Vital signs: Vital Signs Temp 97.8 F 06/27/24 07:57 Pulse 89 06/27/24 07:57 Resp 18 06/27/24 07:57 BP 150/86 06/27/24 07:57 Pulse Ox 97 06/27/24 09:28 FiO2 50 06/22/24 09:03 Intake & Output 06/26/24 06/27/24 06/27/24 18:59 06:59 18:59 Output Total 800 240 Balance -800 -240 Output: Gastric Drainage 800 200 Drainage 40 Left Lower Abdomen 40 Other: # Voids 1 # Bowel Movements 1 - Exam GENERAL DESCRIPTION: Middle-age female lying in bed in no distress RESPIRATORY SYSTEM: Unlabored breathing , decreased breath sounds at bases HEART: S1 S2 regular rate and rhythm , ABDOMEN: Soft , minimal tenderness EXTREMITIES: No edema feet - Labs CBC & Chem 7: 06/26/24 02:47 06/27/24 05:04 Labs: Abnormal Lab Results - Last 24 Hours (Table) 06/26/24 06/26/24 06/27/24 Range/Units 16:51 21:00 00:13 Chloride (98-107) mmol/L BUN (7-17) mg/dL Glucose (74-99) mg/dL POC Glucose (mg/dL) 175 H 216 H 114 H (70-110) mg/dL Alkaline Phosphatase (38-126) U/L Total Protein (6.3-8.2) g/dL Albumin (3.5-5.0) g/dL 06/27/24 06/27/24 06/27/24 Range/Units 05:04 05:42 11:21 Chloride 108 H (98-107) mmol/L BUN 18 H (7-17) mg/dL Glucose 224 H (74-99) mg/dL POC Glucose (mg/dL) 232 H 229 H (70-110) mg/dL Alkaline Phosphatase 145 H (38-126) U/L Total Protein 4.4 L (6.3-8.2) g/dL Albumin 2.2 L (3.5-5.0) g/dL Microbiology - Last 24 Hours (Table) 06/21/24 19:11 Anaerobic Culture - Final Abdomen Nilda glabrata Assessment and Plan (1) Colitis with abscess Current Visit: Yes Status: Acute Code(s): K52.9 - NONINFECTIVE GASTROENTERITIS AND COLITIS, UNSPECIFIED; K63.0 - ABSCESS OF INTESTINE SNOMED Code(s): 63923770 Plan: 1patient with a multiple admission to the hospital has been diagnosed with a colitis with intramural abscess that has failed outpatient oral Ceftin and Flagyl therapy with repeat CT did shows persistent features of colitis around the cecum with intramural abscess and slow clinical response to the medical therapy patient is status post laparotomy with ileocecectomy and drain placement unfortunately no cultures were done 2-patient remains to be afebrile,, patient did have CT with evidence of ileus di d not mention any perforation or colitis abdominal x-rays with extensive bowel gas 3-patient taken back to the OR in this patient who is status post exploratory laparotomy resection of the portion of the bowel and abdominal culture currently growing Nilda albicans as well as glabrata, sputum cultures growing Enterobacter and Serratia sensitive to Zosyn 4patient did have resolution of the fever white count is slowly trending down to 12,000 as of yesterday no CBC was done today we will cover the patient with Eraxis and Zosyn repeat CBC with a.m. lab Dictation was produced using [employer] dictation software. please excuse any grammatical, word or spelling errors. Time with Patient: Less than 30
--- NOTE | 2024-06-27 15:20 | P.PN ---
Subjective Progress Note Date: 06/27/24 This is a 53-year-old female patient is being seen in consultation as the patient has noted to be more hypoxic during this current admission. The patient has been in the hospital since 06/06/2023 and the patient has a perforated diverticular abscess. The patient has undergone a diagnostic laparoscopy con verted to open ileocecectomy and this was done on 06/14/2024. Since then, the patient has been kept NPO. NG tube still in place. No reported aspiration. Surgical site is dry clean and intact. The patient's output from the OSCAR drain is serosanguineous. The patient has no fever or chills. No hemodynamic instability. She is known to have COPD and she claims that she has been oxygen dependent at home somewhere between 2 to 3 L and she was using it only on a history basis. Her oxygen requirements have been gradually increasing and the patient is currently on 5 L of oxygen nasal cannula. She is using incentive spirometer. She is laying down in bed. Reviewed the most recent chest x-ray an d it shows some atelectatic changes in lung bases bilaterally. Otherwise, there is no airspace's or consolidations. No chest pain. No pleurisy or hemoptysis. The patient has been maintained on heparin subcu for DVT prophylaxis throughout the admission. No swelling in lower extremities. No other complaints of respiratory distress for now. The white cell count of 10.7, hemoglobin 9.5 and a platelet count of 382. The patient's D-dimer is at 5.33 which is expectedly elevated. Sodium levels at 136, BUN is 19 with a creatinine of 0.51 and a potassium level is at 4. proBNP level is 115. She is awake and alert and she is communicating. On today's evaluation of 06/22/2024, the patient remains intubated on mechanical ventilator. The patient was taken to the operating room yesterday and the patient underwent small bowel resection, large bowel resection and lysis of adhesions. Post surgery, the patient was kept intubated the patient was brought into the ICU on propofol which is running at 50 mcg/kg/min. This morning, she is on assist-control mode of mechanical ventilation at rate of 18, tidal volume of 400, FiO2 50% with a PEEP of 5. The blood gas showed a pH of 7.37 with a pCO2 of 43 and pO2 of 127. Chest x-ray shows some mild elevation of the right hemidiaphragm. Otherwise no other significant abnormalities. The patient remains on TPN for nutritional support at a rate of 35 cc an hour. The patient is also on Levemir insulin 15 units daily plus a sliding scale coverage and normal citrate of 75 cc an hour. The patient has a white cell count of 22, hemoglobin of 12.4 and platelet count of 463. Rest of the electrolytes are all within normal limits. BUN 30 with a creatinine of 0.8. She remains n.p.o. on TPN. No other significant events overnight. She is calm and comfortable at this point. IV antibiotics in the form of Zosyn. On 06/23/2024, patient is being seen for a follow-up. The patient was weaned off the mechanical ventilator and the patient was extubated yesterday without any major difficulties. Over the afternoon, the patient started having increased abdominal pain. Based on that, the patient was given epidural and currently she is under adequate pain control with epidural at 9 cc an hour with Dilaudid and bupivacaine. OSCAR drain output is minimal and serosanguineous. NG output has been more than 1 L over the past 12 to 24 hours. The patient remains on TPN at rate of 87 cc an hour normal citrate of 75 cc an hour. She is currently extu bated on 3 L/min nasal cannula. The white cell count is 16.8 with hemoglobin 8.5 and a platelet count of 335. BUN is 25 with a creatinine of 0.7 and sodium levels at 140. On examination, she has no significant bowel sounds. Chest x- ray from yesterday was noted. There is some elevation of the right hemidiaphragm. Otherwise no other acute abnormalities noted. She was provided an incentive spirometer. Patient was seen on 06/24/24, patient remains on nasal cannula at 6 L, satting 94%, remains in the ICU, doing quite well. Relatively asymptomatic, tolerated the extubation well over the last couple of days. Patient is on TPN at 87 cc/h IV fluid at 75 cc/h her chest x-ray showed minimal basilar atelectasis specially at the right base, patient is doing well with incentive spirometry. And I plan to transfer the patient out of the ICU to the regular medical floor today WBC count is 13.5 hemoglobin 8.4 basic metabolic profile is normal renal profile is done The patient is seen today June 25, 2024 in follow-up on the regular medical floor. She was transferred out of the intensive care unit yesterday. She is awake and alert in no acute distress. She is maintaining O2 saturations in the 90s on 4 L/min per nasal cannula. She has normal staying at KVO. Nasogastric tube remains in place. She is working well with the incentive spirometer and pulling approximately 1500 mL. Her sputum culture was positive for Enterobacter cloacae complex and Serratia marcescens. Abdominal cultures positive for Nilda albicans and glabrata. Sodium 135. Potassium 3.3. Bicarb 27. BUN 17. Creatinine 0.58. Glucose 149. She remains on DuoNeb inhalations, Symbicort. Heparin for DVT prophylaxis. Antibiotics in the form of Zosyn and Eraxis. She is being nourished with TPN and lipids. The patient is seen today June 26, 2024 in follow-up on the regular medical floor. She is currently sitting up in a chair at the bedside. Awake and alert in no acute distress. She is maintaining good O2 saturations in the 90s on 4 L/min per nasal cannula. She is still having ongoing surgical site pain of the abdomen. Her abdominal dressing is dry and intact. OSCAR drain remains in place. She did have a bowel movement. Nasogastric tube remains in place. She remains NPO. Abdominal wound cultures were positive for Nilda. Sputum culture positive for Enterobacter cloacae complex, Serratia marcescens. Blood cultures revealing no growth. White count 12.9. Hemoglobin 8.4. Platelets 368. Sodium 135. Potassium 3.8. Bicarb 27. BUN 16. Creatinine 0.55. Glucose 243. Being nursed with TPN and lipids. Remains on Eraxis and Zosyn. Normal saline at 75 mL/h. The patient is seen today June 27, 2024 in follow-up on the regular medical floor. He is currently resting in bed. Awake and alert in no acute distress. She is maintaining O2 saturation in the 90s on 4 L/min per nasal cannula. She is continued on Symbicort, DuoNeb inhlations. Heparin for DVT prophylaxis. She remains on Zosyn. Continued on Eraxis. She remains nourished with TPN and lipids. Nasogastric tube to be discontinued. Sodium 138. Potassium 3.6. Bicarb 28. BUN 18. Creatinine 0.56. Glucose 224. AST 27. ALT 10. Alk phos 145. Objective - Vital Signs Vital signs: Vital Signs Temp 97.7 F 06/27/24 14:00 Pulse 83 06/27/24 14:00 Resp 18 06/27/24 14:00 BP 123/81 06/27/24 14:00 Pulse Ox 97 06/27/24 14:00 FiO2 50 06/22/24 09:03 Intake & Output 06/26/24 06/27/24 06/27/24 18:59 06:59 18:59 Output Total 800 240 Balance -800 -240 Weight 89.3 kg Output: Gastric Drainage 800 200 Drainage 40 Left Lower Abdomen 40 Other: # Voids 1 # Bowel Movements 1 - Exam GENERAL EXAM: Alert, pleasant 53-year-old female, on 4 L nasal cannula, resting in bed, comfortable in no apparent distress. HEAD: Normocephalic. EYES: Normal reaction of pupils, equal size. NOSE: Clear with pink turbinates. Nasogastric tube remains in place. THROAT: No erythema or exudates. NECK: No masses, no JVD. CHEST: No chest wall deformity. LUNGS: Equal air entry with no crackles, wheeze, rhonchi or dullness. CVS: S1 and S2 normal with no audible murmur, regular rhythm. ABDOMEN: Abdominal dressing dry and intact. OSCAR drain in place with a small amount of serosanguineous output. SPINE: No scoliosis or deformity SKIN: No rashes CENTRAL NERVOUS SYSTEM: No focal deficits, tone is normal in all 4 extremities. EXTREMITIES: There is no peripheral edema. No clubbing, no cyanosis. Peripheral pulses are intact. - Labs CBC & Chem 7: 06/26/24 02:47 06/27/24 05:04 Labs: Abnormal Lab Results - Last 24 Hours (Table) 06/26/24 06/26/24 06/27/24 Range/Units 16:51 21:00 00:13 Chloride (98-107) mmol/L BUN (7-17) mg/dL Glucose (74-99) mg/dL POC Glucose (mg/dL) 175 H 216 H 114 H (70-110) mg/dL Alkaline Phosphatase (38-126) U/L Total Protein (6.3-8.2) g/dL Albumin (3.5-5.0) g/dL 06/27/24 06/27/24 06/27/24 Range/Units 05:04 05:42 11:21 Chloride 108 H (98-107) mmol/L BUN 18 H (7-17) mg/dL Glucose 224 H (74-99) mg/dL POC Glucose (mg/dL) 232 H 229 H (70-110) mg/dL Alkaline Phosphatase 145 H (38-126) U/L Total Protein 4.4 L (6.3-8.2) g/dL Albumin 2.2 L (3.5-5.0) g/dL Microbiology - Last 24 Hours (Table) 06/21/24 19:11 Anaerobic Culture - Final Abdomen Nilda glabrata Assessment and Plan Assessment: Acute on chronic hypoxemia. With postoperative atelectasis and underlying COPD Diverticular abscess/perforated diverticulitis and the patient has undergone open ileocecectomy on June 11 2024 Abdominal pain status post epidural pain control with bupivacaine and Dilaudid N.p.o. and the patient remains on TPN for nutritional support Coronary artery disease with bypass surgery COPD, maintained on a combination of Symbicort, Spiriva and albuterol rescue inhaler Hypertension Diabetes mellitus type 2 Plan: The patient was seen and evaluated Labs and medications reviewed Working well with the incentive spirometer Titrate down the FiO2 as tolerated Increase her activity as tolerated Plan is to remove nasogastric tube today To be initiated on a clear liquid diet Continued on TPN and lipids We will continue to follow I have personally seen and examined the patient, performed the documentation and the assessment and plan as written. Number of minutes spent on the visit: 10.
[2024-06-27 17:38] LABS: Glucose,Whole Blood 187 mg/dL (70-110)
[2024-06-27 21:07] LABS: Glucose,Whole Blood 207 mg/dL (70-110)
[2024-06-28 00:53] LABS: Glucose,Whole Blood 111 mg/dL (70-110)
[2024-06-28 06:19] LABS: Ionized Calcium 4.9 mg/dL (4.5-5.3)
[2024-06-28 06:25] LABS: African American GFR (CKD) >90 (>60 ml/min/1.73 sqM); Anion Gap 0 mmol/L; Blood Urea Nitrogen 14 mg/dL (7-17); Calcium 8.4 mg/dL (8.4-10.2); Carbon Dioxide 30 mmol/L (22-30); Chloride 107 mmol/L (98-107); Glucose 199 mg/dL (74-99); Magnesium 1.8 mg/dL (1.6-2.3); Non-African American GFR(CKD) >90 (>60 ml/min/1.73 sqM); Phosphorus 2.3 mg/dL (2.5-4.5); Potassium 3.5 mmol/L (3.5-5.1); Sodium 137 mmol/L (137-145)
[2024-06-28 06:31] LABS: Glucose,Whole Blood 225 mg/dL (70-110)
[2024-06-28 08:39] LABS: Basophils # (A) 0.11 X 10*3/uL (0.00-0.10); Basophils % (A) 0.8 %; Eosinophils # (A) 1.92 X 10*3/uL (0.04-0.35); Eosinophils % (A) 14.5 %; HCT 25.9 % (37.2-46.3); HGB 7.6 g/dL (12.0-15.0); Lymphocytes # (A) 2.38 X 10*3/uL (0.90-5.00); MCH 26.8 pg (27.0-32.0); MCHC 29.3 g/dL (32.0-37.0); MCV 91.2 FL (80.0-97.0); Mean Platelet Volume 11.9 FL (9.5-12.2); Monocytes # (A) 1.01 X 10*3/uL (0.20-1.00); Monocytes % (A) 7.6 %; NRBC Per 100 WBC 0.07 X 10*3/uL (0.00-0.01); Neutrophils # (A) 7.16 X 10*3/uL (1.80-7.70); Neutrophils % (A) 54.3 %; Platelet Count 366 X 10*3/uL (140-440); RBC 2.84 X 10*6/uL (4.10-5.20); RDW 19.2 % (11.5-14.5); WBC 13.22 X 10*3/uL (4.50-10.00)
[2024-06-28] MEDS ORDERED: NALOXONE 0.4 MG/ML 1 ML VIAL IV PRN (11:26)
[2024-06-28 11:33] LABS: Glucose,Whole Blood 230 mg/dL (70-110)
--- NOTE | 2024-06-28 12:32 | P.PN ---
Subjective Progress Note Date: 06/28/24 This is a 53-year-old female patient is being seen in consultation as the patient has noted to be more hypoxic during this current admission. The patient has been in the hospital since 06/06/2023 and the patient has a perforated diverticular abscess. The patient has undergone a diagnostic laparoscopy con verted to open ileocecectomy and this was done on 06/14/2024. Since then, the patient has been kept NPO. NG tube still in place. No reported aspiration. Surgical site is dry clean and intact. The patient's output from the OSCAR drain is serosanguineous. The patient has no fever or chills. No hemodynamic instability. She is known to have COPD and she claims that she has been oxygen dependent at home somewhere between 2 to 3 L and she was using it only on a history basis. Her oxygen requirements have been gradually increasing and the patient is currently on 5 L of oxygen nasal cannula. She is using incentive spirometer. She is laying down in bed. Reviewed the most recent chest x-ray an d it shows some atelectatic changes in lung bases bilaterally. Otherwise, there is no airspace's or consolidations. No chest pain. No pleurisy or hemoptysis. The patient has been maintained on heparin subcu for DVT prophylaxis throughout the admission. No swelling in lower extremities. No other complaints of respiratory distress for now. The white cell count of 10.7, hemoglobin 9.5 and a platelet count of 382. The patient's D-dimer is at 5.33 which is expectedly elevated. Sodium levels at 136, BUN is 19 with a creatinine of 0.51 and a potassium level is at 4. proBNP level is 115. She is awake and alert and she is communicating. On today's evaluation of 06/22/2024, the patient remains intubated on mechanical ventilator. The patient was taken to the operating room yesterday and the patient underwent small bowel resection, large bowel resection and lysis of adhesions. Post surgery, the patient was kept intubated the patient was brought into the ICU on propofol which is running at 50 mcg/kg/min. This morning, she is on assist-control mode of mechanical ventilation at rate of 18, tidal volume of 400, FiO2 50% with a PEEP of 5. The blood gas showed a pH of 7.37 with a pCO2 of 43 and pO2 of 127. Chest x-ray shows some mild elevation of the right hemidiaphragm. Otherwise no other significant abnormalities. The patient remains on TPN for nutritional support at a rate of 35 cc an hour. The patient is also on Levemir insulin 15 units daily plus a sliding scale coverage and normal citrate of 75 cc an hour. The patient has a white cell count of 22, hemoglobin of 12.4 and platelet count of 463. Rest of the electrolytes are all within normal limits. BUN 30 with a creatinine of 0.8. She remains n.p.o. on TPN. No other significant events overnight. She is calm and comfortable at this point. IV antibiotics in the form of Zosyn. On 06/23/2024, patient is being seen for a follow-up. The patient was weaned off the mechanical ventilator and the patient was extubated yesterday without any major difficulties. Over the afternoon, the patient started having increased abdominal pain. Based on that, the patient was given epidural and currently she is under adequate pain control with epidural at 9 cc an hour with Dilaudid and bupivacaine. OSCAR drain output is minimal and serosanguineous. NG output has been more than 1 L over the past 12 to 24 hours. The patient remains on TPN at rate of 87 cc an hour normal citrate of 75 cc an hour. She is currently extu bated on 3 L/min nasal cannula. The white cell count is 16.8 with hemoglobin 8.5 and a platelet count of 335. BUN is 25 with a creatinine of 0.7 and sodium levels at 140. On examination, she has no significant bowel sounds. Chest x- ray from yesterday was noted. There is some elevation of the right hemidiaphragm. Otherwise no other acute abnormalities noted. She was provided an incentive spirometer. Patient was seen on 06/24/24, patient remains on nasal cannula at 6 L, satting 94%, remains in the ICU, doing quite well. Relatively asymptomatic, tolerated the extubation well over the last couple of days. Patient is on TPN at 87 cc/h IV fluid at 75 cc/h her chest x-ray showed minimal basilar atelectasis specially at the right base, patient is doing well with incentive spirometry. And I plan to transfer the patient out of the ICU to the regular medical floor today WBC count is 13.5 hemoglobin 8.4 basic metabolic profile is normal renal profile is done The patient is seen today June 25, 2024 in follow-up on the regular medical floor. She was transferred out of the intensive care unit yesterday. She is awake and alert in no acute distress. She is maintaining O2 saturations in the 90s on 4 L/min per nasal cannula. She has normal staying at KVO. Nasogastric tube remains in place. She is working well with the incentive spirometer and pulling approximately 1500 mL. Her sputum culture was positive for Enterobacter cloacae complex and Serratia marcescens. Abdominal cultures positive for Nilda albicans and glabrata. Sodium 135. Potassium 3.3. Bicarb 27. BUN 17. Creatinine 0.58. Glucose 149. She remains on DuoNeb inhalations, Symbicort. Heparin for DVT prophylaxis. Antibiotics in the form of Zosyn and Eraxis. She is being nourished with TPN and lipids. The patient is seen today June 26, 2024 in follow-up on the regular medical floor. She is currently sitting up in a chair at the bedside. Awake and alert in no acute distress. She is maintaining good O2 saturations in the 90s on 4 L/min per nasal cannula. She is still having ongoing surgical site pain of the abdomen. Her abdominal dressing is dry and intact. OSCAR drain remains in place. She did have a bowel movement. Nasogastric tube remains in place. She remains NPO. Abdominal wound cultures were positive for Nilda. Sputum culture positive for Enterobacter cloacae complex, Serratia marcescens. Blood cultures revealing no growth. White count 12.9. Hemoglobin 8.4. Platelets 368. Sodium 135. Potassium 3.8. Bicarb 27. BUN 16. Creatinine 0.55. Glucose 243. Being nursed with TPN and lipids. Remains on Eraxis and Zosyn. Normal saline at 75 mL/h. The patient is seen today June 27, 2024 in follow-up on the regular medical floor. He is currently resting in bed. Awake and alert in no acute distress. She is maintaining O2 saturation in the 90s on 4 L/min per nasal cannula. She is continued on Symbicort, DuoNeb inhlations. Heparin for DVT prophylaxis. She remains on Zosyn. Continued on Eraxis. She remains nourished with TPN and lipids. Nasogastric tube to be discontinued. Sodium 138. Potassium 3.6. Bicarb 28. BUN 18. Creatinine 0.56. Glucose 224. AST 27. ALT 10. Alk phos 145. The patient is seen today June 28, 2024 in follow-up on the regular medical floor. She is awake and alert in no acute distress. Resting fairly comfortably in bed. She is maintaining O2 saturations in the 90s on 4 L/min per nasal cannula. She is afebrile. Hemodynamically stable. She remains on bronchodilators. Working well with the incentive spirometer. Heparin for DVT prophylaxis. She is tolerating a liquid diet to be advanced to regular. White count 13.2. Hemoglobin 7.6. Platelets 366. Sodium 137. Potassium 3.5. Bicarb 30. BUN 14. Creatinine 0.58. Glucose 199. Objective - Vital Signs Vital signs: Vital Signs Temp 97.5 F L 06/28/24 07:31 Pulse 93 06/28/24 08:10 Resp 18 06/28/24 08:10 BP 140/88 06/28/24 07:31 Pulse Ox 94 L 06/28/24 07:31 FiO2 50 06/22/24 09:03 Intake & Output 06/27/24 06/28/24 06/28/24 18:59 06:59 18:59 Intake Total 1071 Output Total 75 5 Balance 1071 -75 -5 Weight 89.3 kg Intake: Intake, IV Titration 1071 Amount Mvi, Adult No.4 with Vit 1071 K 10 ml Trace (Conc-1Ml/ Dose) 1 ml Sodium Acetate 60 meq Potassium Chloride 34 meq Calcium Gluconate 1 gm Magnesium Sulfate gm 1 gm Potassium Phosphate 3 mmol In Amino Acids 5 %/Dextrose 20 % 1,000 ml @ 87 mls/hr IV .BY DURATION [facility] Rx#: [id number] Output: Drainage 75 5 Left Lower Abdomen 75 5 Other: Voiding Method Bedside Commode Bedside Commode # Voids 3 3 - Exam GENERAL EXAM: Alert, 53-year-old female, on 4 L nasal cannula, comfortable in no apparent distress. HEAD: Normocephalic. EYES: Normal reaction of pupils, equal size. NOSE: Clear with pink turbinates. Nasogastric tube remains in place. THROAT: No erythema or exudates. NECK: No masses, no JVD. CHEST: No chest wall deformity. LUNGS: Equal air entry with no crackles, wheeze, rhonchi or dullness. CVS: S1 and S2 normal with no audible murmur, regular rhythm. ABDOMEN: Abdominal dressing dry and intact. OSCAR drain in place with a small amount of serosanguineous output. SPINE: No scoliosis or deformity SKIN: No rashes CENTRAL NERVOUS SYSTEM: No focal deficits, tone is normal in all 4 extremities. EXTREMITIES: There is no peripheral edema. No clubbing, no cyanosis. Peripheral pulses are intact. - Labs CBC & Chem 7: 06/28/24 05:46 06/28/24 05:46 Labs: Abnormal Lab Results - Last 24 Hours (Table) 06/27/24 06/27/24 06/28/24 Range/Units 17:37 21:05 00:51 WBC (4.50-10.00) X 10*3/uL RBC (4.10-5.20) X 10*6/uL Hgb (12.0-15.0) g/dL Hct (37.2-46.3) % MCH (27.0-32.0) pg MCHC (32.0-37.0) g/dL RDW (11.5-14.5) % Immature Gran # (0.00-0.04) X 10*3/uL Monocytes # (0.20-1.00) X 10*3/uL Eosinophils # (0.04-0.35) X 10*3/uL Basophils # (0.00-0.10) X 10*3/uL NRBC/100 WBC Diff (0.00-0.01) X 10*3/uL Glucose (74-99) mg/dL POC Glucose (mg/dL) 187 H 207 H 111 H (70-110) mg/dL Phosphorus (2.5-4.5) mg/dL Triglycerides (0.00-149.00) mg/dL 06/28/24 06/28/24 06/28/24 Range/Units 05:46 05:46 06:29 WBC 13.22 H (4.50-10.00) X 10*3/uL RBC 2.84 L (4.10-5.20) X 10*6/uL Hgb 7.6 L (12.0-15.0) g/dL Hct 25.9 L (37.2-46.3) % MCH 26.8 L (27.0-32.0) pg MCHC 29.3 L (32.0-37.0) g/dL RDW 19.2 H (11.5-14.5) % Immature Gran # 0.64 H (0.00-0.04) X 10*3/uL Monocytes # 1.01 H (0.20-1.00) X 10*3/uL Eosinophils # 1.92 H (0.04-0.35) X 10*3/uL Basophils # 0.11 H (0.00-0.10) X 10*3/uL NRBC/100 WBC Diff 0.07 H (0.00-0.01) X 10*3/uL Glucose 199 H (74-99) mg/dL POC Glucose (mg/dL) 225 H (70-110) mg/dL Phosphorus 2.3 L (2.5-4.5) mg/dL Triglycerides 188.00 H (0.00-149.00) mg/dL 06/28/24 Range/Units 11:30 WBC (4.50-10.00) X 10*3/uL RBC (4.10-5.20) X 10*6/uL Hgb (12.0-15.0) g/dL Hct (37.2-46.3) % MCH (27.0-32.0) pg MCHC (32.0-37.0) g/dL RDW (11.5-14.5) % Immature Gran # (0.00-0.04) X 10*3/uL Monocytes # (0.20-1.00) X 10*3/uL Eosinophils # (0.04-0.35) X 10*3/uL Basophils # (0.00-0.10) X 10*3/uL NRBC/100 WBC Diff (0.00-0.01) X 10*3/uL Glucose (74-99) mg/dL POC Glucose (mg/dL) 230 H (70-110) mg/dL Phosphorus (2.5-4.5) mg/dL Triglycerides (0.00-149.00) mg/dL Microbiology - Last 24 Hours (Table) 06/22/24 17:39 Blood Culture - Final Blood Assessment and Plan Assessment: Acute on chronic hypoxemia. With postoperative atelectasis and underlying COPD Diverticular abscess/perforated diverticulitis and the patient has undergone open ileocecectomy on June 11 2024 Abdominal pain status post epidural pain control with bupivacaine and Dilaudid Coronary artery disease with bypass surgery COPD, maintained on a combination of Symbicort, Spiriva and albuterol rescue inhaler Hypertension Diabetes mellitus type 2 Plan: The patient was seen and evaluated Labs and medications reviewed Working well with the incentive spirometer Titrate down the FiO2 as tolerated Increase her activity as tolerated Advance to a regular diet today May need subacute rehabilitation at discharge This patient was seen independently by the pulmonary nurse practitioner addressing pulmonary issues I have personally seen and examined the patient, performed the documentation and the assessment and plan as written. Number of minutes spent on the visit: 24.
--- NOTE | 2024-06-28 12:58 | P.PN ---
Subjective Progress Note Date: 06/28/24 CHIEF COMPLAINT: Colitis with intramural wall abscess HISTORY OF PRESENT ILLNESS: Patient is status post diagnostic laparoscopy converted to open with ileocecectomy on 06/11/24. She was taken to back to the OR on 06/21/2024 and is status post exploratory laparotomy, extensive lysis of adhesions, small bowel resection x 2 and proximal right colon resection for small bowel obstruction secondary to adhesions and inflammation. Patient reports she is feeling better today. She is having flatus. She did have a bowel movement yesterday. She does report a little nausea earlier this morning. Afebrile. WBC slightly up at 13.2 hemoglobin 7.6 PHYSICAL EXAM: VITAL SIGNS: Reviewed. GENERAL: no acute distress. ABDOMEN: Soft. Nondistended. Tenderness at incision site. Prevena wound VAC intact. OSCAR drain serosanguineous output NEUROLOGIC: Alert and oriented. Cranial nerves II through XII grossly intact. ASSESSMENT: 1. Colitis with intramural wall abscess 2. Small bowel obstruction secondary to adhesions and inflammation 3. Moderate protein calorie malnutrition PLAN -Advance diet to regular -Consult [employer] for home care at discharge -Continue pain management -Encourage patient to ambulate -Encourage patient to use incentive spirometer -Continue antibiotics per infectious disease -Possible discharge in a.m. -DVT prophylaxis subcu heparin GI prophylaxis Protonix Physician Field Support Rep note has been reviewed by physician. Signing provider agrees with the documented findings, assessment, and plan of care. Objective - Vital Signs Vital signs: Vital Signs Temp 97.5 F L 06/28/24 07:31 Pulse 93 06/28/24 08:10 Resp 18 06/28/24 08:10 BP 140/88 06/28/24 07:31 Pulse Ox 94 L 06/28/24 07:31 FiO2 50 06/22/24 09:03 Intake & Output 06/27/24 06/28/24 06/28/24 18:59 06:59 18:59 Intake Total 1071 Output Total 75 5 Balance 1071 -75 -5 Weight 89.3 kg Intake: Intake, IV Titration 1071 Amount Mvi, Adult No.4 with Vit 1071 K 10 ml Trace (Conc-1Ml/ Dose) 1 ml Sodium Acetate 60 meq Potassium Chloride 34 meq Calcium Gluconate 1 gm Magnesium Sulfate gm 1 gm Potassium Phosphate 3 mmol In Amino Acids 5 %/Dextrose 20 % 1,000 ml @ 87 mls/hr IV .BY DURATION [facility], [facility]–1983 Rx#: [id number] Output: Drainage 75 5 Left Lower Abdomen 75 5 Other: Voiding Method Bedside Commode Bedside Commode # Voids 3 3 - Labs CBC & Chem 7: 06/28/24 05:46 06/28/24 05:46 Labs: Abnormal Lab Results - Last 24 Hours (Table) 06/27/24 06/27/24 06/28/24 Range/Units 17:37 21:05 00:51 WBC (4.50-10.00) X 10*3/uL RBC (4.10-5.20) X 10*6/uL Hgb (12.0-15.0) g/dL Hct (37.2-46.3) % MCH (27.0-32.0) pg MCHC (32.0-37.0) g/dL RDW (11.5-14.5) % Immature Gran # (0.00-0.04) X 10*3/uL Monocytes # (0.20-1.00) X 10*3/uL Eosinophils # (0.04-0.35) X 10*3/uL Basophils # (0.00-0.10) X 10*3/uL NRBC/100 WBC Diff (0.00-0.01) X 10*3/uL Glucose (74-99) mg/dL POC Glucose (mg/dL) 187 H 207 H 111 H (70-110) mg/dL Phosphorus (2.5-4.5) mg/dL Triglycerides (0.00-149.00) mg/dL 06/28/24 06/28/24 06/28/24 Range/Units 05:46 05:46 06:29 WBC 13.22 H (4.50-10.00) X 10*3/uL RBC 2.84 L (4.10-5.20) X 10*6/uL Hgb 7.6 L (12.0-15.0) g/dL Hct 25.9 L (37.2-46.3) % MCH 26.8 L (27.0-32.0) pg MCHC 29.3 L (32.0-37.0) g/dL RDW 19.2 H (11.5-14.5) % Immature Gran # 0.64 H (0.00-0.04) X 10*3/uL Monocytes # 1.01 H (0.20-1.00) X 10*3/uL Eosinophils # 1.92 H (0.04-0.35) X 10*3/uL Basophils # 0.11 H (0.00-0.10) X 10*3/uL NRBC/100 WBC Diff 0.07 H (0.00-0.01) X 10*3/uL Glucose 199 H (74-99) mg/dL POC Glucose (mg/dL) 225 H (70-110) mg/dL Phosphorus 2.3 L (2.5-4.5) mg/dL Triglycerides 188.00 H (0.00-149.00) mg/dL 06/28/24 Range/Units 11:30 WBC (4.50-10.00) X 10*3/uL RBC (4.10-5.20) X 10*6/uL Hgb (12.0-15.0) g/dL Hct (37.2-46.3) % MCH (27.0-32.0) pg MCHC (32.0-37.0) g/dL RDW (11.5-14.5) % Immature Gran # (0.00-0.04) X 10*3/uL Monocytes # (0.20-1.00) X 10*3/uL Eosinophils # (0.04-0.35) X 10*3/uL Basophils # (0.00-0.10) X 10*3/uL NRBC/100 WBC Diff (0.00-0.01) X 10*3/uL Glucose (74-99) mg/dL POC Glucose (mg/dL) 230 H (70-110) mg/dL Phosphorus (2.5-4.5) mg/dL Triglycerides (0.00-149.00) mg/dL Microbiology - Last 24 Hours (Table) 06/22/24 17:39 Blood Culture - Final Blood Assessment and Plan Assessment: 53 yo female s/p ileocectomy -advance to regular diet -pain control -possible discharge in am -follow up pt/ot, case management, social work Time with Patient: Less than 30
--- NOTE | 2024-06-28 14:55 | P.PN ---
Subjective Progress Note Date: 06/28/24 Principal diagnosis: Reason for follow-up is colitis/intra-abdominal abscess Patient is a 53-year-old female who recently did have multiple admission to the hospital regarding right sided abdominal pain has been diagnosed with colitis with intramural abscess failing outpatient oral antibiotic therapy. Patient is status post diagnostic laparoscopic abdominal washout converted to open laparotomy with loop cecectomy and drain placement. Patient was taken back to the OR patient is status post exploratory laparotomy, extensive lysis of adhesions greater than 1/3 of the case, small bowel resection x 2, proximal right colon resection completed on 06/22/2024 afternoon operative report did not mention any perforation or abscess. On today's evaluation that is 06/28/2024, patient has been afebrile, patient is breathing comfortably and is currently on 3 L nasal current oxygen patient denies having any significant cough no chest pain, patient denies nausea vomiting after discontinuation of her NG still having abdominal pain and no bowel movement. Patient white count is 13.22 with a creatinine 0.58 Objective - Vital Signs Vital signs: Vital Signs Temp 97.5 F L 06/28/24 07:31 Pulse 93 06/28/24 08:10 Resp 18 06/28/24 08:10 BP 140/88 06/28/24 07:31 Pulse Ox 94 L 06/28/24 07:31 FiO2 50 06/22/24 09:03 Intake & Output 06/27/24 06/28/24 06/28/24 18:59 06:59 18:59 Intake Total 1071 Output Total 75 5 Balance 1071 -75 -5 Weight 89.3 kg Intake: Intake, IV Titration 1071 Amount Mvi, Adult No.4 with Vit 1071 K 10 ml Trace (Conc-1Ml/ Dose) 1 ml Sodium Acetate 60 meq Potassium Chloride 34 meq Calcium Gluconate 1 gm Magnesium Sulfate gm 1 gm Potassium Phosphate 3 mmol In Amino Acids 5 %/Dextrose 20 % 1,000 ml @ 87 mls/hr IV .BY DURATION [facility] Rx#: [id number] Output: Drainage 75 5 Left Lower Abdomen 75 5 Other: Voiding Method Bedside Commode Bedside Commode # Voids 3 3 - Exam GENERAL DESCRIPTION: Middle-age female lying in bed in no distress RESPIRATORY SYSTEM: Unlabored breathing , decreased breath sounds at bases HEART: S1 S2 regular rate and rhythm , ABDOMEN: Soft , minimal tenderness EXTREMITIES: No edema feet - Labs CBC & Chem 7: 10/04/24 05:46 06/28/24 05:46 Labs: Abnormal Lab Results - Last 24 Hours (Table) 06/27/24 06/27/24 06/28/24 Range/Units 17:37 21:05 00:51 WBC (4.50-10.00) X 10*3/uL RBC (4.10-5.20) X 10*6/uL Hgb (12.0-15.0) g/dL Hct (37.2-46.3) % MCH (27.0-32.0) pg MCHC (32.0-37.0) g/dL RDW (11.5-14.5) % Immature Gran # (0.00-0.04) X 10*3/uL Monocytes # (0.20-1.00) X 10*3/uL Eosinophils # (0.04-0.35) X 10*3/uL Basophils # (0.00-0.10) X 10*3/uL NRBC/100 WBC Diff (0.00-0.01) X 10*3/uL Glucose (74-99) mg/dL POC Glucose (mg/dL) 187 H 207 H 111 H (70-110) mg/dL Phosphorus (2.5-4.5) mg/dL Triglycerides (0.00-149.00) mg/dL 06/28/24 06/28/24 06/28/24 Range/Units 05:46 05:46 06:29 WBC 13.22 H (4.50-10.00) X 10*3/uL RBC 2.84 L (4.10-5.20) X 10*6/uL Hgb 7.6 L (12.0-15.0) g/dL Hct 25.9 L (37.2-46.3) % MCH 26.8 L (27.0-32.0) pg MCHC 29.3 L (32.0-37.0) g/dL RDW 19.2 H (11.5-14.5) % Immature Gran # 0.64 H (0.00-0.04) X 10*3/uL Monocytes # 1.01 H (0.20-1.00) X 10*3/uL Eosinophils # 1.92 H (0.04-0.35) X 10*3/uL Basophils # 0.11 H (0.00-0.10) X 10*3/uL NRBC/100 WBC Diff 0.07 H (0.00-0.01) X 10*3/uL Glucose 199 H (74-99) mg/dL POC Glucose (mg/dL) 225 H (70-110) mg/dL Phosphorus 2.3 L (2.5-4.5) mg/dL Triglycerides 188.00 H (0.00-149.00) mg/dL 06/28/24 Range/Units 11:30 WBC (4.50-10.00) X 10*3/uL RBC (4.10-5.20) X 10*6/uL Hgb (12.0-15.0) g/dL Hct (37.2-46.3) % MCH (27.0-32.0) pg MCHC (32.0-37.0) g/dL RDW (11.5-14.5) % Immature Gran # (0.00-0.04) X 10*3/uL Monocytes # (0.20-1.00) X 10*3/uL Eosinophils # (0.04-0.35) X 10*3/uL Basophils # (0.00-0.10) X 10*3/uL NRBC/100 WBC Diff (0.00-0.01) X 10*3/uL Glucose (74-99) mg/dL POC Glucose (mg/dL) 230 H (70-110) mg/dL Phosphorus (2.5-4.5) mg/dL Triglycerides (0.00-149.00) mg/dL Microbiology - Last 24 Hours (Table) 06/22/24 17:39 Blood Culture - Final Blood Assessment and Plan (1) Colitis with abscess Current Visit: Yes Status: Acute Code(s): K52.9 - NONINFECTIVE GASTROENTERITIS AND COLITIS, UNSPECIFIED; K63.0 - ABSCESS OF INTESTINE SNOMED Code(s): 25793082 Plan: 1patient with a multiple admission to the hospital has been diagnosed with a colitis with intramural abscess that has failed outpatient oral Ceftin and Flagyl therapy with repeat CT did shows persistent features of colitis around the cecum with intramural abscess and slow clinical response to the medical therapy patient is status post laparotomy with ileocecectomy and drain placement unfortunately no cultures were done 2-patient remains to be afebrile,, patient did have CT with evidence of ileus did not mention any perforation or colitis abdominal x-rays with extensive bowel gas 3-patient taken back to the OR in this patient who is status post exploratory laparotomy resection of the portion of the bowel and abdominal culture currently growing Nilda albicans as well as glabrata, sputum cultures growing Enteroba cter and Serratia sensitive to Zosyn 4patient did have resolution of the fever white count is slightly up today to 13,000 but will monitor closely for now continue with Eraxis and Zosyn repeat CBC with a.m. lab Dictation was produced using [employer] dictation software. please excuse any grammatical, word or spelling errors. Time with Patient: Less than 30
--- NOTE | 2024-06-28 15:10 | P.PN ---
Subjective Patient is a 53-year-old female with diabetes, hypertension, COPD, CABG with multiple stents most recently in November 2018 maintained on aspirin and Plavix presents with complaints of worsening abdominal pain. She was discharged from the hospital 2 days ago on Ceftin and Flagyl for colitis. During that hospital course her CT abdomen/pelvis revealed right-sided colitis she was started on IV Flagyl and ciprofloxacin and her WBCs trended down (11.5 to 8.21 on discharge). She endorsed improved pain throughout her stay and on the day of discharge she was asking to go home after she successfully ate lunch. During her stay her C. difficile PCR was negative. Endorses one episode of bloody emesis yesterday, and approximately 6 other episodes of non-bloody emesis since discharge but has had no vomiting since admission last night. Endorses compliance with medications since discharge. States pain is 6/10 right now but was 100/10 just before coming to ED. Denies current chest pain, shortness of breath, nausea, vomiting, hematochezia. Endorses right lower quadrant pain. CT abdomen/pelvis revealed inflammatory changes involving the cecum with adjacent 2.3 cm intramural wall abscess and reactive small bowel ileus. WBCs 12.3, hemoglobin 13.4, platelets 580. Urinalysis unremarkable. Afebrile, tachycardic since improved, hypertensive with systolic [id number]. 06/07. Patient seen and examined at bedside. She states that the pain is improved. Surgery consultedno intervention at this time. Endorses mild diarrhea starting. WBC 7.62. 06/08. Patient seen and examined lying comfortably on bed. She states the pain is significantly improved. Lab results pending. 06/09. Patient is evaluated in follow up today. She is resting in bed she is holding her abdomen and reporting pain to the RLQ. She is requesting IV pain medication. Noted that follow up abdominal pelvis CT done today reveals similar findings with abnormally thickened wall of the colon adjacent to the ileocecal valve region. Similar surrounding mild inflammatory fat stranding consider focal colitis. Suspected intramural abscess here is smaller at 1.8 cm vs. 2.5 cm previously. Normal appendix. New prominent fluid within the stomach. Fluid- filled small bowel loops are more numerous now. Consider worsening ileus. Trace pelvic free fluid redemonstrated. No free air. Potassium 5.3. today. 06/10. Patient seen and examined at bedside. Patient still with significant amount of pain on the right side of the abdomen as well as epigastric area. She is NPO. She endorses nausea. She denies fever, chest pain, shortness of breath. Infectious disease consulted. Labs unremarkable. 06/11. Patient seen and examined. Continues to complain of abdominal pain. Denies any nausea or vomiting, passing gas. 06/12. Patient seen and examined at bedside lying comfortably. Continues to complain of abdominal pain. Excited but nervous for surgery. Denies any nausea, vomiting, fever, chills. Endorses passing gas and 3 episodes of diarrhea today. Patient going to the operating room today. Midline was placed this morning. 06/13. Patient seen lying in bed. She is postop day 1 status post diagnostic laparoscopic abdominal washout converted to open with ileocecectomy with drain placement. She is complaining of abdominal pain and a lot of pressure in epigastric region. She has not passed flatus. 06/14. Patient seen and examined laying in bed. She is postop day 2 status post diagnostic laparoscopic abdominal washout converted to open with ile ocecectomy with drain placement. She endorses improved abdominal pain with pressure in the epigastric region. She has not passed flatus. OSCAR drain is serosanguineous fluid. Potassium 2.9. TPN has been started. 06/15. Patient seen laying in bed. She is postop day 3 status post diagnostic laparoscopic abdominal washout converted to open with ileocecectomy with drain placement. She endorses improved abdominal pain and increased ambulation. She has not passed flatus. She is ambulating well around the unit. OSCAR drain is serosanguineous fluid. Potassium is 3.2. Endorses nausea and relief with Zofran. 06/16. Patient seen and examined. Currently on TPN, states she feels better. Denies any nausea or vomiting, complaining of on and off abdominal pain. 06/17. Patient seen laying in bed. Postop day 5. Endorses epigastric abdominal pain. Ambulating well around the unit. Not passing flatus. 06/18. Patient seen and examined. Patient had 1 episode of emesis this morning, states she feels much better after that. Patient not passing gas. No bowel movement yet. 06/19. Patient seen and examined at bedside. No flatus, no bowel movement. Had an NG tube placed overnight. 06/20. Patient seen at bedside. Passing flatus, had a bowel movement yesterday. Still with NG tube with 900 mL output. Multiple episodes of vomiting yesterday. Patient states she feels less distended. 06/21. Patient seen and examined lying in bed. Endorses worsened abdominal pain. Endorses mild chest pain relieved with sitting up, worsened laying flat. 06/22. Patient transferred to ICU yesterday status post intubation due to acute on chronic hypoxic respiratory failure. Labs: WBCs 22.1, hemoglobin 12.4, platelets 463, sodium 138, potassium 4.8, CO2 24, creatinine 0.83. Patient underwent exploratory laparotomy yesterday. 06/23. Patient is evaluated today in the intensive care unit awake alert and oriented. Postoperative day #2 exploratory laparotomy and bowel resection. P atient received an epidural yesterday; states the pain level is manageable today and significantly improved. Patient with NG tube in place and per nursing staff was sucking water of the oral swabs and had increased gastric output because of it. Those were changed out to the lemon glycerin swabs. White blood cell count 16.8, hgb 8.9, Na -140, BUN 25, creatinine 0.72. 06/24. Patient seen in the ICU. She is postop day 3 of exploratory laparotomy and bowel resection and status post epidural placement day 3. She states her pain is better. She endorses mild abdominal pain due to surgery. She is still with an NG tube with 500 mL output and left OSCAR drain with minimal output. Labs: WBCs 13.5, hemoglobin 8.4, sodium 138, potassium 3.3. States she has had 2 bowel movements. Endorses mild nausea, no vomiting. Abdominal wound culture growing shyam and sputum culture growing gram negative bacilli preliminarily. 06/25/2024 Patient is evaluated on the medical floor. Patient is postoperative day #4 exploratory laporotomy and bowel resection. Epidural remains in place. Patient is up to the bedside commode today. Weeks catheter has been removed. NG tube remains in place. Sputum culture finalized showing enterobacter cloacae complex, serratia marcescens, shyam from the abdominal cultures. ID following remains on IV eraxis and IV zosyn. Continues on TPN and patient remains NPO. Sodium today 135, potassium 3.3, magnesium 1.9. 06/26/2024 Patient seen at bedside. No significant overnight events. Patient is postoperative day 5 exploratory laporotomy and bowel resection. Patient has had first formed BM. 06/27/2024 Patient seen at bedside. No significant overnight events. Patient reports pain is about the same as yesterday, but tolerable. No BM since yesterday. Surgery planning on removing NG tube if patient does not significantly fill NG tube container. If NG tube is able to be removed, will start on clears. 06/28/2024 Patient seen at bedside. No significant overnight events. Patient reports pain has improved from 10 out of 10 yesterday to now 8 out of 10 today. Patient reports she is tolerating clears well. ROS reviewed. Pertinent positives and negatives discussed above, a complete review of systems was performed and all the other systems were negative. Physical examination: Vital signs are stable. General: No acute distress. AO x 4. Currently with an NG tube. HEENT: Head exam is unremarkable. ACs patent. Nares patent. Lungs: Bilateral breath sounds present; no rhonchi, wheezes, or rales. Heart: Rate and rhythm are regular. S1-S2 present. No murmur/rub/gallops. Abdomen: Bowel sounds absent. Extremities: Trace edema present. Psych: Normal affect and mood. Cooperative. Assessment/Plan: Intramural wall abscess Right sided colitis Postop day 12 status post diagnostic laparoscopic abdominal washout converted to open with ileocecectomy with drain placement Continue TPN Surgery following Continue with Zosyn per infectious disease Ileus Postop day 4 exploratory laparotomy, small bowel resection x 2, colon resection, lysis of adhesions Surgery following NG tube has been discontinued, patient is tolerating clears well, will continue to try to progress diet. Encourage ambulation Added toradol 15 Q6 for further pain management Acute on chronic hypoxic respiratory failure Successfully extubated and currently on 4 L nasal cannula Continue to wean oxygen Encourage use of incentive spirometer Hypokalemia, improved Monitor BMP Diabetes mellitus type 2 Insulin sliding scale changed to 5 units TID. Accuchecks ACHS Hypertension Continue Norvasc Hyperlipidemia Continue Lipitor COPD Continue Ventolin as needed Continue Symbicort Continue DuoNeb History of CABG and stents Continue aspirin Anxiety Continue Xanax as needed DVT prophylaxis: Subcutaneous heparin GI prophylaxis: Protonix Objective - Vital Signs Vital signs: Vital Signs Temp 98.2 F 06/28/24 02:00 Pulse 93 06/28/24 02:00 Resp 18 06/27/24 14:00 BP 148/89 06/28/24 02:00 Pulse Ox 94 L 06/28/24 02:00 FiO2 50 06/22/24 09:03 Intake & Output 06/27/24 06/28/24 06/28/24 18:59 06:59 18:59 Intake Total 1071 Output Total 75 Balance 1071 -75 Weight 89.3 kg Intake: Intake, IV Titration 1071 Amount Mvi, Adult No.4 with Vit 1071 K 10 ml Trace (Conc-1Ml/ Dose) 1 ml Sodium Acetate 60 meq Potassium Chloride 34 meq Calcium Gluconate 1 gm Magnesium Sulfate gm 1 gm Potassium Phosphate 3 mmol In Amino Acids 5 %/Dextrose 20 % 1,000 ml @ 87 mls/hr IV .BY DURATION [facility] Rx#: [id number] Output: Drainage 75 Left Lower Abdomen 75 Other: Voiding Method Bedside Commode # Voids 3 3 - Labs CBC & Chem 7: 06/28/24 05:46 06/28/24 05:46 Labs: Abnormal Lab Results - Last 24 Hours (Table) 06/27/24 06/27/24 06/27/24 Range/Units 05:04 11:21 17:37 Chloride 108 H (98-107) mmol/L BUN 18 H (7-17) mg/dL Glucose 224 H (74-99) mg/dL POC Glucose (mg/dL) 229 H 187 H (70-110) mg/dL Phosphorus (2.5-4.5) mg/dL Alkaline Phosphatase 145 H (38-126) U/L Total Protein 4.4 L (6.3-8.2) g/dL Albumin 2.2 L (3.5-5.0) g/dL 06/27/24 06/28/24 06/28/24 Range/Units 21:05 00:51 05:46 Chloride (98-107) mmol/L BUN (7-17) mg/dL Glucose 199 H (74-99) mg/dL POC Glucose (mg/dL) 207 H 111 H (70-110) mg/dL Phosphorus 2.3 L (2.5-4.5) mg/dL Alkaline Phosphatase (38-126) U/L Total Protein (6.3-8.2) g/dL Albumin (3.5-5.0) g/dL 06/28/24 Range/Units 06:29 Chloride (98-107) mmol/L BUN (7-17) mg/dL Glucose (74-99) mg/dL POC Glucose (mg/dL) 225 H (70-110) mg/dL Phosphorus (2.5-4.5) mg/dL Alkaline Phosphatase (38-126) U/L Total Protein (6.3-8.2) g/dL Albumin (3.5-5.0) g/dL Microbiology - Last 24 Hours (Table) 06/22/24 17:39 Blood Culture - Final Blood
[2024-06-28 16:41] LABS: Glucose,Whole Blood 122 mg/dL (70-110)
[2024-06-28 20:52] LABS: Glucose,Whole Blood 195 mg/dL (70-110)
[2024-06-29] MEDS: ONDANSETRON 4 MG/2 ML VIAL IVP PRN (00:59)
[2024-06-29 02:04] LABS: Glucose,Whole Blood 234 mg/dL (70-110)
[2024-06-29 04:49] LABS: Anisocytosis Moderate; Basophils % (A) 0 %; Eosinophils # (A) 1.5 k/uL (0-0.7); Eosinophils % (A) 13 %; HCT 24.3 % (34.0-46.0); HGB 7.7 gm/dL (11.4-16.0); Hypochromasia Marked; Lymphocytes # (A) 2.4 k/uL (1.0-4.8); Lymphocytes % (A) 20 %; MCH 28.2 pg (25.0-35.0); MCHC 31.5 g/dL (31.0-37.0); MCV 89.5 fL (80.0-100.0); Mean Platelet Volume 9.3; Monocytes # (A) 0.6 k/uL (0-1.0); Monocytes % (A) 5 %; Neutrophils # (A) 6.9 k/uL (1.3-7.7); Neutrophils % (A) 59 %; Platelet Count 384 k/uL (150-450); Poikilocytosis Slight; RBC 2.72 m/uL (3.80-5.40); WBC 11.7 k/uL (3.8-10.6)
[2024-06-29 05:26] LABS: African American GFR (CKD) >90 (>60 ml/min/1.73 sqM); Anion Gap 1 mmol/L; Blood Urea Nitrogen 14 mg/dL (7-17); Calcium 8.5 mg/dL (8.4-10.2); Carbon Dioxide 29 mmol/L (22-30); Chloride 107 mmol/L (98-107); Glucose 224 mg/dL (74-99); Magnesium 1.9 mg/dL (1.6-2.3); Non-African American GFR(CKD) >90 (>60 ml/min/1.73 sqM); Phosphorus 3.2 mg/dL (2.5-4.5); Potassium 3.4 mmol/L (3.5-5.1); Sodium 137 mmol/L (137-145)
[2024-06-29 06:03] LABS: Glucose,Whole Blood 239 mg/dL (70-110)
[2024-06-29] MEDS: POTASSIUM CHLORIDE 20 MEQ in WATER FOR INJECTION 1 100ML.BAG IVPB SCH (07:19)
[2024-06-29] MEDS: POTASSIUM CHLORIDE ER 20 MEQ TAB.ER PO SCH (09:10)
--- NOTE | 2024-06-29 10:16 | P.PN ---
Progress Note - Text Progress Note Date: 06/29/24 CHIEF COMPLAINT: Colitis with intramural wall abscess HISTORY OF PRESENT ILLNESS: Patient is status post diagnostic laparoscopy converted to open with ileocecectomy on 06/11/24. She was taken to back to the OR on 06/21/2024 and is status post exploratory laparotomy, extensive lysis of a dhesions, small bowel resection x 2 and proximal right colon resection for small bowel obstruction secondary to adhesions and inflammation. Patient states she really isnt eating. She is having bowel function PHYSICAL EXAM: VITAL SIGNS: Reviewed. GENERAL: no acute distress. ABDOMEN: Soft. Nondistended. Tenderness at incision site. Prevena wound VAC intact. OSCAR drain serosanguineous output NEUROLOGIC: Alert and oriented. Cranial nerves II through XII grossly intact. ASSESSMENT: 1. Colitis with intramural wall abscess 2. Small bowel obstruction secondary to adhesions and inflammation 3. Moderate protein calorie malnutrition PLAN -Regular Diet -Consult caseworker for home care at discharge -Continue pain management -Encourage patient to ambulate -Encourage patient to use incentive spirometer -Continue antibiotics per infectious disease -Wean TPN -Wean O2 -DVT prophylaxis subcu heparin GI prophylaxis Protonix Freeman Portillo DO [facility] [phone]
--- NOTE | 2024-06-29 11:32 | P.PN ---
Subjective Progress Note Date: 06/29/24 This is a 53-year-old female patient is being seen in consultation as the patient has noted to be more hypoxic during this current admission. The patient has been in the hospital since 06/06/2023 and the patient has a perforated diverticular abscess. The patient has undergone a diagnostic laparoscopy con verted to open ileocecectomy and this was done on 06/14/2024. Since then, the patient has been kept NPO. NG tube still in place. No reported aspiration. Surgical site is dry clean and intact. The patient's output from the OSCAR drain is serosanguineous. The patient has no fever or chills. No hemodynamic instability. She is known to have COPD and she claims that she has been oxygen dependent at home somewhere between 2 to 3 L and she was using it only on a history basis. Her oxygen requirements have been gradually increasing and the patient is currently on 5 L of oxygen nasal cannula. She is using incentive spirometer. She is laying down in bed. Reviewed the most recent chest x-ray an d it shows some atelectatic changes in lung bases bilaterally. Otherwise, there is no airspace's or consolidations. No chest pain. No pleurisy or hemoptysis. The patient has been maintained on heparin subcu for DVT prophylaxis throughout the admission. No swelling in lower extremities. No other complaints of respiratory distress for now. The white cell count of 10.7, hemoglobin 9.5 and a platelet count of 382. The patient's D-dimer is at 5.33 which is expectedly elevated. Sodium levels at 136, BUN is 19 with a creatinine of 0.51 and a potassium level is at 4. proBNP level is 115. She is awake and alert and she is communicating. On today's evaluation of 06/22/2024, the patient remains intubated on mechanical ventilator. The patient was taken to the operating room yesterday and the patient underwent small bowel resection, large bowel resection and lysis of adhesions. Post surgery, the patient was kept intubated the patient was brought into the ICU on propofol which is running at 50 mcg/kg/min. This morning, she is on assist-control mode of mechanical ventilation at rate of 18, tidal volume of 400, FiO2 50% with a PEEP of 5. The blood gas showed a pH of 7.37 with a pCO2 of 43 and pO2 of 127. Chest x-ray shows some mild elevation of the right hemidiaphragm. Otherwise no other significant abnormalities. The patient remains on TPN for nutritional support at a rate of 35 cc an hour. The patient is also on Levemir insulin 15 units daily plus a sliding scale coverage and normal citrate of 75 cc an hour. The patient has a white cell count of 22, hemoglobin of 12.4 and platelet count of 463. Rest of the electrolytes are all within normal limits. BUN 30 with a creatinine of 0.8. She remains n.p.o. on TPN. No other significant events overnight. She is calm and comfortable at this point. IV antibiotics in the form of Zosyn. On 06/23/2024, patient is being seen for a follow-up. The patient was weaned off the mechanical ventilator and the patient was extubated yesterday without any major difficulties. Over the afternoon, the patient started having increased abdominal pain. Based on that, the patient was given epidural and currently she is under adequate pain control with epidural at 9 cc an hour with Dilaudid and bupivacaine. OSCAR drain output is minimal and serosanguineous. NG output has been more than 1 L over the past 12 to 24 hours. The patient remains on TPN at rate of 87 cc an hour normal citrate of 75 cc an hour. She is currently extu bated on 3 L/min nasal cannula. The white cell count is 16.8 with hemoglobin 8.5 and a platelet count of 335. BUN is 25 with a creatinine of 0.7 and sodium levels at 140. On examination, she has no significant bowel sounds. Chest x- ray from yesterday was noted. There is some elevation of the right hemidiaphragm. Otherwise no other acute abnormalities noted. She was provided an incentive spirometer. Patient was seen on 06/24/24, patient remains on nasal cannula at 6 L, satting 94%, remains in the ICU, doing quite well. Relatively asymptomatic, tolerated the extubation well over the last couple of days. Patient is on TPN at 87 cc/h IV fluid at 75 cc/h her chest x-ray showed minimal basilar atelectasis specially at the right base, patient is doing well with incentive spirometry. And I plan to transfer the patient out of the ICU to the regular medical floor today WBC count is 13.5 hemoglobin 8.4 basic metabolic profile is normal renal profile is done The patient is seen today June 25, 2024 in follow-up on the regular medical floor. She was transferred out of the intensive care unit yesterday. She is awake and alert in no acute distress. She is maintaining O2 saturations in the 90s on 4 L/min per nasal cannula. She has normal staying at KVO. Nasogastric tube remains in place. She is working well with the incentive spirometer and pulling approximately 1500 mL. Her sputum culture was positive for Enterobacter cloacae complex and Serratia marcescens. Abdominal cultures positive for Nilda albicans and glabrata. Sodium 135. Potassium 3.3. Bicarb 27. BUN 17. Creatinine 0.58. Glucose 149. She remains on DuoNeb inhalations, Symbicort. Heparin for DVT prophylaxis. Antibiotics in the form of Zosyn and Eraxis. She is being nourished with TPN and lipids. The patient is seen today June 26, 2024 in follow-up on the regular medical floor. She is currently sitting up in a chair at the bedside. Awake and alert in no acute distress. She is maintaining good O2 saturations in the 90s on 4 L/min per nasal cannula. She is still having ongoing surgical site pain of the abdomen. Her abdominal dressing is dry and intact. OSCAR drain remains in place. She did have a bowel movement. Nasogastric tube remains in place. She remains NPO. Abdominal wound cultures were positive for Nilda. Sputum culture positive for Enterobacter cloacae complex, Serratia marcescens. Blood cultures revealing no growth. White count 12.9. Hemoglobin 8.4. Platelets 368. Sodium 135. Potassium 3.8. Bicarb 27. BUN 16. Creatinine 0.55. Glucose 243. Being nursed with TPN and lipids. Remains on Eraxis and Zosyn. Normal saline at 75 mL/h. The patient is seen today June 27, 2024 in follow-up on the regular medical floor. He is currently resting in bed. Awake and alert in no acute distress. She is maintaining O2 saturation in the 90s on 4 L/min per nasal cannula. She is continued on Symbicort, DuoNeb inhlations. Heparin for DVT prophylaxis. She remains on Zosyn. Continued on Eraxis. She remains nourished with TPN and lipids. Nasogastric tube to be discontinued. Sodium 138. Potassium 3.6. Bicarb 28. BUN 18. Creatinine 0.56. Glucose 224. AST 27. ALT 10. Alk phos 145. The patient is seen today June 28, 2024 in follow-up on the regular medical floor. She is awake and alert in no acute distress. Resting fairly comfortably in bed. She is maintaining O2 saturations in the 90s on 4 L/min per nasal cannula. She is afebrile. Hemodynamically stable. She remains on bronchodilators. Working well with the incentive spirometer. Heparin for DVT prophylaxis. She is tolerating a liquid diet to be advanced to regular. White count 13.2. Hemoglobin 7.6. Platelets 366. Sodium 137. Potassium 3.5. Bicarb 30. BUN 14. Creatinine 0.58. Glucose 199. The patient is seen today June 29, 2024 in follow-up on the regular medical floor. She is resting in bed. Awake and alert in no acute distress. She remains on oxygen at 3 L/min per nasal cannula. She is working well with the incentive spirometer. She has been up with assistance. She is continued on Symbicort, DuoNeb inhalations. Heparin for DVT prophylaxis. She has been advanced to a regular diet. White count 11.7. Hemoglobin 7.7. Platelets 384. Sodium 137. Potassium 3.4. Bicarb 29. BUN 14. Creatinine 0.6. Glucose 224. Objective - Vital Signs Vital signs: Vital Signs Temp 98.8 F 06/29/24 07:41 Pulse 88 06/29/24 09:04 Resp 17 06/29/24 09:04 BP 146/90 06/29/24 07:41 Pulse Ox 95 06/29/24 08:42 FiO2 50 06/22/24 09:03 Intake & Output 06/28/24 06/29/24 06/29/24 18:59 06:59 18:59 Intake Total 1071 Output Total 10 0 Balance -10 1071 Intake: Intake, IV Titration 1071 Amount Mvi, Adult No.4 with Vit 1071 K 10 ml Trace (Conc-1Ml/ Dose) 1 ml Sodium Acetate 60 meq Potassium Chloride 34 meq Calcium Gluconate 1 gm Magnesium Sulfate gm 1 gm Potassium Phosphate 3 mmol In Amino Acids 5 %/Dextrose 20 % 1,000 ml @ 87 mls/hr IV .BY DURATION [facility] Rx#: [id number] Output: Drainage 10 0 Left Lower Abdomen 10 0 Other: Voiding Method Bedside Commode Bedside Commode # Voids 3 1 # Bowel Movements 1 - Exam GENERAL EXAM: Alert, 53-year-old female, on 4 L nasal cannula, comfortable in no apparent distress. HEAD: Normocephalic. EYES: Normal reaction of pupils, equal size. NOSE: Clear with pink turbinates. THROAT: No erythema or exudates. NECK: No masses, no JVD. CHEST: No chest wall deformity. LUNGS: Equal air entry with no crackles, wheeze, rhonchi or dullness. CVS: S1 and S2 normal with no audible murmur, regular rhythm. ABDOMEN: Abdominal dressing dry and intact. OSCAR drain in place with a small amount of serosanguineous output. SPINE: No scoliosis or deformity SKIN: No rashes CENTRAL NERVOUS SYSTEM: No focal deficits, tone is normal in all 4 extremities. EXTREMITIES: There is no peripheral edema. No clubbing, no cyanosis. Peripheral pulses are intact. - Labs CBC & Chem 7: 06/29/24 04:22 06/29/24 04:22 Labs: Abnormal Lab Results - Last 24 Hours (Table) 06/28/24 06/28/24 06/28/24 Range/Units 11:30 16:39 20:46 WBC (3.8-10.6) k/uL RBC (3.80-5.40) m/uL Hgb (11.4-16.0) gm/dL Hct (34.0-46.0) % RDW (11.5-15.5) % Eosinophils # (0-0.7) k/uL Potassium (3.5-5.1) mmol/L Glucose (74-99) mg/dL POC Glucose (mg/dL) 230 H 122 H 195 H (70-110) mg/dL 06/29/24 06/29/24 06/29/24 Range/Units 02:03 04:22 04:22 WBC 11.7 H (3.8-10.6) k/uL RBC 2.72 L (3.80-5.40) m/uL Hgb 7.7 L (11.4-16.0) gm/dL Hct 24.3 L (34.0-46.0) % RDW 20.0 H (11.5-15.5) % Eosinophils # 1.5 H (0-0.7) k/uL Potassium 3.4 L (3.5-5.1) mmol/L Glucose 224 H (74-99) mg/dL POC Glucose (mg/dL) 234 H (70-110) mg/dL 06/29/24 Range/Units 06:01 WBC (3.8-10.6) k/uL RBC (3.80-5.40) m/uL Hgb (11.4-16.0) gm/dL Hct (34.0-46.0) % RDW (11.5-15.5) % Eosinophils # (0-0.7) k/uL Potassium (3.5-5.1) mmol/L Glucose (74-99) mg/dL POC Glucose (mg/dL) 239 H (70-110) mg/dL Assessment and Plan Assessment: Acute on chronic hypoxemia. With postoperative atelectasis and underlying COPD Diverticular abscess/perforated diverticulitis and the patient has undergone open ileocecectomy on June 11 2024 Abdominal pain status post epidural pain control with bupivacaine and Dilaudid improved Coronary artery disease with bypass surgery COPD, maintained on a combination of Symbicort, Spiriva and albuterol rescue inhaler Hypertension Diabetes mellitus type 2 Plan: The patient was seen and evaluated Labs and medications reviewed Working well with the incentive spirometer Titrate down the FiO2 as tolerated Encouraged to increase her activity as tolerated Encouraged to spend more time out of bed This patient was seen independently by the pulmonary nurse practitioner addressing pulmonary issues I have personally seen and examined the patient, performed the documentation and the assessment and plan as written. Number of minutes spent on the visit: 23.
[2024-06-29 12:04] LABS: Glucose,Whole Blood 95 mg/dL (70-110)
--- NOTE | 2024-06-29 13:27 | P.PN ---
Subjective Progress Note Date: 06/29/24 Principal diagnosis: Reason for follow-up is colitis/intra-abdominal abscess Patient is a 53-year-old female who recently did have multiple admission to the hospital regarding right sided abdominal pain has been diagnosed with colitis with intramural abscess failing outpatient oral antibiotic therapy. Patient is status post diagnostic laparoscopic abdominal washout converted to open laparotomy with loop cecectomy and drain placement. Patient was taken back to the OR patient is status post exploratory laparotomy, extensive lysis of adhesions greater than 1/3 of the case, small bowel resection x 2, proximal right colon resection completed on 06/22/2024 afternoon operative report did not mention any perforation or abscess. On today's evaluation that is 06/29/2024, Patient is afebrile this morning patient denies having any chest pain shortness of breath or cough, the patient is currently on 3 L nasal cannula oxygen patient denies any nausea no vomiting abdominal pain decreased intensity and is passing gas. Patient white count is down to 11.7 with a creatinine 0.60 Objective - Vital Signs Vital signs: Vital Signs Temp 98.8 F 06/29/24 07:41 Pulse 88 06/29/24 09:04 Resp 17 06/29/24 09:04 BP 146/90 06/29/24 07:41 Pulse Ox 95 06/29/24 08:42 FiO2 50 06/22/24 09:03 Intake & Output 06/28/24 06/29/24 06/29/24 18:59 06:59 18:59 Intake Total 1071 Output Total 10 0 Balance -10 1071 Intake: Intake, IV Titration 1071 Amount Mvi, Adult No.4 with Vit 1071 K 10 ml Trace (Conc-1Ml/ Dose) 1 ml Sodium Acetate 60 meq Potassium Chloride 34 meq Calcium Gluconate 1 gm Magnesium Sulfate gm 1 gm Potassium Phosphate 3 mmol In Amino Acids 5 %/Dextrose 20 % 1,000 ml @ 87 mls/hr IV .BY DURATION [facility] Rx#: [id number] Output: Drainage 10 0 Left Lower Abdomen 10 0 Other: Voiding Method Bedside Commode Bedside Commode # Voids 3 1 # Bowel Movements 1 - Exam GENERAL DESCRIPTION: Middle-age female lying in bed in no distress RESPIRATORY SYSTEM: Unlabored breathing , decreased breath sounds at bases HEART: S1 S2 regular rate and rhythm , ABDOMEN: Soft , minimal tenderness EXTREMITIES: No edema feet - Labs CBC & Chem 7: 06/29/24 04:22 06/29/24 04:22 Labs: Abnormal Lab Results - Last 24 Hours (Table) 06/28/24 06/28/24 06/29/24 Range/Units 16:39 20:46 02:03 WBC (3.8-10.6) k/uL RBC (3.80-5.40) m/uL Hgb (11.4-16.0) gm/dL Hct (34.0-46.0) % RDW (11.5-15.5) % Eosinophils # (0-0.7) k/uL Potassium (3.5-5.1) mmol/L Glucose (74-99) mg/dL POC Glucose (mg/dL) 122 H 195 H 234 H (70-110) mg/dL 06/29/24 06/29/24 06/29/24 Range/Units 04:22 04:22 06:01 WBC 11.7 H (3.8-10.6) k/uL RBC 2.72 L (3.80-5.40) m/uL Hgb 7.7 L (11.4-16.0) gm/dL Hct 24.3 L (34.0-46.0) % RDW 20.0 H (11.5-15.5) % Eosinophils # 1.5 H (0-0.7) k/uL Potassium 3.4 L (3.5-5.1) mmol/L Glucose 224 H (74-99) mg/dL POC Glucose (mg/dL) 239 H (70-110) mg/dL Assessment and Plan (1) Colitis with abscess Current Visit: Yes Status: Acute Code(s): K52.9 - NONINFECTIVE GASTROENTERITIS AND COLITIS, UNSPECIFIED; K63.0 - ABSCESS OF INTESTINE SNOMED Code(s): 81023925 Plan: 1patient with a multiple admission to the hospital has been diagnosed with a colitis with intramural abscess that has failed outpatient oral Ceftin and Flagyl therapy with repeat CT did shows persistent features of colitis around the cecum with intramural abscess and slow clinical response to the medical therapy patient is status post laparotomy with ileocecectomy and drain placement unfortunately no cultures were done 2-patient remains to be afebrile,, patient did have CT with evidence of ileus did not mention any perforation or colitis abdominal x-rays with extensive bowel gas 3-patient taken back to the OR in this patient who is status post exploratory la parotomy resection of the portion of the bowel and abdominal culture currently growing Nilda albicans as well as glabrata, sputum cultures growing Enterobacter and Serratia sensitive to Zosyn 4patient did have resolution of the fever white count is down to 11.7 today to continue with Eraxis and Zosyn and monitor clinical course closely Dictation was produced using [employer] dictation software. please excuse any grammatical, word or spelling errors. Time with Patient: Less than 30
--- NOTE | 2024-06-29 14:44 | P.PN ---
Subjective Subjective:Patient is a 53-year-old female with diabetes, hypertension, COPD, CABG with multiple stents most recently in November 2018 maintained on aspirin and Plavix presents with complaints of worsening abdominal pain. She was discharged from the hospital 2 days ago on Ceftin and Flagyl for colitis. During that hospital course her CT abdomen/pelvis revealed right-sided colitis she was started on IV Flagyl and ciprofloxacin and her WBCs trended down (11.5 to 8.21 on discharge). She endorsed improved pain throughout her stay and on the day of discharge she was asking to go home after she successfully ate lunch. During her stay her C. difficile PCR was negative. Endorses one episode of bloody emesis yesterday, and approximately 6 other episodes of non-bloody emesis since discharge but has had no vomiting since admission last night. Endorses compliance with medications since discharge. States pain is 6/10 right now but was 100/10 just before coming to ED. Denies current chest pain, shortness of breath, nausea, vomiting, hematochezia. Endorses right lower quadrant pain. CT abdomen/pelvis revealed inflammatory changes involving the cecum with adjacent 2.3 cm intramural wall abscess and reactive small bowel ileus. WBCs 12.3, hemoglobin 13.4, platelets 580. Urinalysis unremarkable. Afebrile, tachycardic since improved, hypertensive with systolic [id number]. 06/07. Patient seen and examined at bedside. She states that the pain is improved. Surgery consultedno intervention at this time. Endorses mild diarrhea starting. WBC 7.62. 06/08. Patient seen and examined lying comfortably on bed. She states the pain is significantly improved. Lab results pending. 06/09. Patient is evaluated in follow up today. She is resting in bed she is holding her abdomen and reporting pain to the RLQ. She is requesting IV pain medication. Noted that follow up abdominal pelvis CT done today reveals similar findings with abnormally thickened wall of the colon adjacent to the ileocecal valve region. Similar surrounding mild inflammatory fat stranding consider focal colitis. Suspected intramural abscess here is smaller at 1.8 cm vs. 2.5 cm previously. Normal appendix. New prominent fluid within the stomach. Fluid- filled small bowel loops are more numerous now. Consider worsening ileus. Trace pelvic free fluid redemonstrated. No free air. Potassium 5.3. today. 06/10. Patient seen and examined at bedside. Patient still with significant amount of pain on the right side of the abdomen as well as epigastric area. She is NPO. She endorses nausea. She denies fever, chest pain, shortness of breath. Infectious disease consulted. Labs unremarkable. 06/11. Patient seen and examined. Continues to complain of abdominal pain. Denies any nausea or vomiting, passing gas. 06/12. Patient seen and examined at bedside lying comfortably. Continues to complain of abdominal pain. Excited but nervous for surgery. Denies any nausea, vomiting, fever, chills. Endorses passing gas and 3 episodes of diarrhea today. Patient going to the operating room today. Midline was placed this morning. 06/13. Patient seen lying in bed. She is postop day 1 status post diagnostic laparoscopic abdominal washout converted to open with ileocecectomy with drain placement. She is complaining of abdominal pain and a lot of pressure in epigastric region. She has not passed flatus. 06/14. Patient seen and examined laying in bed. She is postop day 2 status post diagnostic laparoscopic abdominal washout converted to open with ileocecectomy with drain placement. She endorses improved abdominal pain with pressure in the epigastric region. She has not passed flatus. OSCAR drain is serosanguineous fluid. Potassium 2.9. TPN has been started. 06/15. Patient seen laying in bed. She is postop day 3 status post diagnostic laparoscopic abdominal washout converted to open with ileocecectomy with drain placement. She endorses improved abdominal pain and increased ambulation. She has not passed flatus. She is ambulating well around the unit. OSCAR drain is serosanguineous fluid. Potassium is 3.2. Endorses nausea and relief with Zofran. 06/16. Patient seen and examined. Currently on TPN, states she feels better. Denies any nausea or vomiting, complaining of on and off abdominal pain. 06/17. Patient seen laying in bed. Postop day 5. Endorses epigastric abdominal pain. Ambulating well around the unit. Not passing flatus. 06/18. Patient seen and examined. Patient had 1 episode of emesis this mor camilo, states she feels much better after that. Patient not passing gas. No bowel movement yet. 06/19. Patient seen and examined at bedside. No flatus, no bowel movement. Had an NG tube placed overnight. 06/20. Patient seen at bedside. Passing flatus, had a bowel movement yesterday. Still with NG tube with 900 mL output. Multiple episodes of vomiting yesterday. Patient states she feels less distended. 06/21. Patient seen and examined lying in bed. Endorses worsened abdominal pain. Endorses mild chest pain relieved with sitting up, worsened laying flat. 06/22. Patient transferred to ICU yesterday status post intubation due to acute on chronic hypoxic respiratory failure. Labs: WBCs 22.1, hemoglobin 12.4, platelets 463, sodium 138, potassium 4.8, CO2 24, creatinine 0.83. Patient underwent exploratory laparotomy yesterday. 06/23. Patient is evaluated today in the intensive care unit awake alert and oriented. Postoperative day #2 exploratory laparotomy and bowel resection. Patient received an epidural yesterday; states the pain level is manageable today and significantly improved. Patient with NG tube in place and per nursing staff was sucking water of the oral swabs and had increased gastric output because of it. Those were changed out to the lemon glycerin swabs. White blood cell count 16.8, hgb 8.9, Na -140, BUN 25, creatinine 0.72. 06/24. Patient seen in the ICU. She is postop day 3 of exploratory laparotomy and bowel resection and status post epidural placement day 3. She states her pain is better. She endorses mild abdominal pain due to surgery. She is still with an NG tube with 500 mL output and left OSCAR drain with minimal output. Labs: WBCs 13.5, hemoglobin 8.4, sodium 138, potassium 3.3. States she has had 2 bowel movements. Endorses mild nausea, no vomiting. Abdominal wound culture growing shyam and sputum culture growing gram negative bacilli preliminarily. 06/25/2024 Patient is evaluated on the medical floor. Patient is postoperative day #4 exploratory laporotomy and bowel resection. Epidural remains in place. Patient is up to the bedside commode today. Weeks catheter has been removed. NG tube remains in place. Sputum culture finalized showing enterobacter cloacae complex, serratia marcescens, shyam from the abdominal cultures. ID following remains on IV eraxis and IV zosyn. Continues on TPN and patient remains NPO. Sodium today 135, potassium 3.3, magnesium 1.9. 06/26/2024 Patient seen at bedside. No significant overnight events. Patient is postoperative day 5 exploratory laporotomy and bowel resection. Patient has had first formed BM. 06/27/2024 Patient seen at bedside. No significant overnight events. Patient reports pain is about the same as yesterday, but tolerable. No BM since yesterday. Surgery planning on removing NG tube if patient does not significantly fill NG tube container. If NG tube is able to be removed, will start on clears. 06/28/2024 Patient seen at bedside. No significant overnight events. Patient reports pain has improved from 10 out of 10 yesterday to now 8 out of 10 today. Patient reports she is tolerating clears well. 06/29/2024 Patient seen at bedside. No significant overnight events. Patient has progressed her diet from clears to regular diet now. TPN has been discontinued. Pertinent positives and negatives discussed above, a complete review of systems was preformed and all the other sytems were negative. Vitals Signs Reveiwed. General: non toxic, no distress, appears at stated age, normal weight Derm: no unusual rashes/lesions, warm Head: atraumatic, normocephalic, symmetric Eyes: EOMI, no lid lag, anicteric sclera, pupils equal round reactive to light ENT: Nose and ears atraumatic Neck: No cervical lymphadenopathy, trachea midline, supple Mouth: no lip lesion, mucus membranes moist Cardiovascular: S1S2 reg, no murmur, positive dorsalis pedis pulse bilateral, no edema Lungs: Decreased air entry bilaterally, no rhonchi, no rales, no accessory muscle use Abdominal: soft, nontender to palpation, no guarding Ext: muscle strength 5 out of 5 in all 4 extremities grossly, no gross muscle atrophy, no contractures, Neuro: CN II-XI grossly intact, no gross focal neuro deficits Psych: Alert, oriented, appropriate affect Data Reveiwed Today: Patient Labs: WBC 11.7, hemoglobin 7.7, sodium 137, potassium 3.4, glucose 224, creatinine 0.6, phosphorus 3.2. Imaging: No new imaging. Assesment and Plan: Intramural wall abscess Right sided colitis Postop day 12 status post diagnostic laparoscopic abdominal washout converted to open with ileocecectomy with drain placement TPN discontinued Surgery following Continue with Eraxis and Zosyn per infectious disease Ileus Postop day 4 exploratory laparotomy, small bowel resection x 2, colon resection, lysis of adhesions Surgery following Patient now on regular diet. Encourage ambulation Added toradol 15 Q6 for further pain management Acute on chronic hypoxic respiratory failure Successfully extubated and currently on 3 L nasal cannula Continue to wean oxygen Encourage use of incentive spirometer Hypokalemia, improved Monitor BMP Diabetes mellitus type 2 Insulin sliding scale changed to 5 units TID. Accuchecks ACHS Hypertension Continue Norvasc Hyperlipidemia Continue Lipitor COPD Continue Ventolin as needed Continue Symbicort Continue DuoNeb History of CABG and stents Continue aspirin Anxiety Continue Xanax as needed F none E magnesium N regular diet A DVT ppx: Subcutaneous heparin Code Status: Protonix Dispo: Likely discharge tomorrow if patient can continue to tolerate regular diet and have bowel movement. Anticipated discharge place: Acute rehab Anticipated discharge time: Pending clinical course, possibly today if case management can find placement as patient is now tolerating regular diet. Attestation I have seen and examined this patient with my resident , discussed the same with the resident/OLIVIA, and agree with the dictator's assessment and plan as written Dr. Isra lundy Objective - Vital Signs Vital signs: Vital Signs Temp 98.4 F 06/29/24 01:35 Pulse 84 06/29/24 01:35 Resp 17 06/29/24 01:35 BP 134/82 06/29/24 01:35 Pulse Ox 94 L 06/29/24 01:35 FiO2 50 06/22/24 09:03 Intake & Output 06/28/24 06/29/24 06/29/24 18:59 06:59 18:59 Intake Total 1071 Output Total 10 0 Balance -10 1071 Intake: Intake, IV Titration 1071 Amount Mvi, Adult No.4 with Vit 1071 K 10 ml Trace (Conc-1Ml/ Dose) 1 ml Sodium Acetate 60 meq Potassium Chloride 34 meq Calcium Gluconate 1 gm Magnesium Sulfate gm 1 gm Potassium Phosphate 3 mmol In Amino Acids 5 %/Dextrose 20 % 1,000 ml @ 87 mls/hr IV .BY DURATION [facility] Rx#: [id number] Output: Drainage 10 0 Left Lower Abdomen 10 0 Other: Voiding Method Bedside Commode # Voids 3 1 # Bowel Movements 1 - Labs CBC & Chem 7: 06/29/24 04:22 06/30/24 02:40 Labs: Abnormal Lab Results - Last 24 Hours (Table) 06/28/24 06/28/24 06/28/24 Range/Units 05:46 05:46 11:30 WBC 13.22 H (4.50-10.00) X 10*3/uL RBC 2.84 L (4.10-5.20) X 10*6/uL Hgb 7.6 L (12.0-15.0) g/dL Hct 25.9 L (37.2-46.3) % MCH 26.8 L (27.0-32.0) pg MCHC 29.3 L (32.0-37.0) g/dL RDW 19.2 H (11.5-14.5) % Immature Gran # 0.64 H (0.00-0.04) X 10*3/uL Monocytes # 1.01 H (0.20-1.00) X 10*3/uL Eosinophils # 1.92 H (0.04-0.35) X 10*3/uL Basophils # 0.11 H (0.00-0.10) X 10*3/uL NRBC/100 WBC Diff 0.07 H (0.00-0.01) X 10*3/uL Potassium (3.5-5.1) mmol/L Glucose (74-99) mg/dL POC Glucose (mg/dL) 230 H (70-110) mg/dL Triglycerides 188.00 H (0.00-149.00) mg/dL 06/28/24 06/28/24 06/29/24 Range/Units 16:39 20:46 02:03 WBC (4.50-10.00) X 10*3/uL RBC (4.10-5.20) X 10*6/uL Hgb (12.0-15.0) g/dL Hct (37.2-46.3) % MCH (27.0-32.0) pg MCHC (32.0-37.0) g/dL RDW (11.5-14.5) % Immature Gran # (0.00-0.04) X 10*3/uL Monocytes # (0.20-1.00) X 10*3/uL Eosinophils # (0.04-0.35) X 10*3/uL Basophils # (0.00-0.10) X 10*3/uL NRBC/100 WBC Diff (0.00-0.01) X 10*3/uL Potassium (3.5-5.1) mmol/L Glucose (74-99) mg/dL POC Glucose (mg/dL) 122 H 195 H 234 H (70-110) mg/dL Triglycerides (0.00-149.00) mg/dL 06/29/24 06/29/24 06/29/24 Range/Units 04:22 04:22 06:01 WBC 11.7 H (4.50-10.00) X 10*3/uL RBC 2.72 L (4.10-5.20) X 10*6/uL Hgb 7.7 L (12.0-15.0) g/dL Hct 24.3 L (37.2-46.3) % MCH (27.0-32.0) pg MCHC (32.0-37.0) g/dL RDW 20.0 H (11.5-14.5) % Immature Gran # (0.00-0.04) X 10*3/uL Monocytes # (0.20-1.00) X 10*3/uL Eosinophils # 1.5 H (0.04-0.35) X 10*3/uL Basophils # (0.00-0.10) X 10*3/uL NRBC/100 WBC Diff (0.00-0.01) X 10*3/uL Potassium 3.4 L (3.5-5.1) mmol/L Glucose 224 H (74-99) mg/dL POC Glucose (mg/dL) 239 H (70-110) mg/dL Triglycerides (0.00-149.00) mg/dL
[2024-06-29 16:59] LABS: Glucose,Whole Blood 75 mg/dL (70-110)
[2024-06-29 21:09] LABS: Glucose,Whole Blood 80 mg/dL (70-110)
[2024-06-30 03:49] LABS: African American GFR (CKD) >90 (>60 ml/min/1.73 sqM); Anion Gap 1 mmol/L; Blood Urea Nitrogen 17 mg/dL (7-17); Calcium 8.9 mg/dL (8.4-10.2); Carbon Dioxide 26 mmol/L (22-30); Chloride 111 mmol/L (98-107); Glucose 78 mg/dL (74-99); Magnesium 1.7 mg/dL (1.6-2.3); Non-African American GFR(CKD) >90 (>60 ml/min/1.73 sqM); Potassium 4.7 mmol/L (3.5-5.1); Sodium 138 mmol/L (137-145)
--- NOTE | 2024-06-30 05:56 | P.PN ---
Progress Note - Text Progress Note Date: 06/30/24 CHIEF COMPLAINT: Colitis with intramural wall abscess HISTORY OF PRESENT ILLNESS: Patient is status post diagnostic laparoscopy converted to open with ileocecectomy on 06/11/24. She was taken to back to the OR on 06/21/2024 and is status post exploratory laparotomy, extensive lysis of a dhesions, small bowel resection x 2 and proximal right colon resection for small bowel obstruction secondary to adhesions and inflammation. Patient still does not have much of appetite. She is having bowel function. PHYSICAL EXAM: VITAL SIGNS: Reviewed. GENERAL: no acute distress. ABDOMEN: Soft. Nondistended. Tenderness at incision site. Prevena wound VAC intact. OSCAR drain serosanguineous output NEUROLOGIC: Alert and oriented. Cranial nerves II through XII grossly intact. ASSESSMENT: 1. Colitis with intramural wall abscess 2. Small bowel obstruction secondary to adhesions and inflammation 3. Moderate protein calorie malnutrition PLAN -Regular Diet -Consult block and case maker for home care at discharge -Continue pain management -Encourage patient to ambulate -Encourage patient to use incentive spirometer -Continue antibiotics per infectious disease -Wean TPN -Wean O2 -DVT prophylaxis subcu heparin GI prophylaxis Protonix Freeman Portillo DO [facility] [phone]
[2024-06-30 05:59] LABS: Glucose,Whole Blood 93 mg/dL (70-110)
[2024-06-30 11:43] LABS: Glucose,Whole Blood 97 mg/dL (70-110)
--- NOTE | 2024-06-30 12:05 | P.PN ---
Subjective Progress Note Date: 06/30/24 This is a 53-year-old female patient is being seen in consultation as the patient has noted to be more hypoxic during this current admission. The patient has been in the hospital since 06/06/2023 and the patient has a perforated diverticular abscess. The patient has undergone a diagnostic laparoscopy con verted to open ileocecectomy and this was done on 06/14/2024. Since then, the patient has been kept NPO. NG tube still in place. No reported aspiration. Surgical site is dry clean and intact. The patient's output from the OSCAR drain is serosanguineous. The patient has no fever or chills. No hemodynamic instability. She is known to have COPD and she claims that she has been oxygen dependent at home somewhere between 2 to 3 L and she was using it only on a history basis. Her oxygen requirements have been gradually increasing and the patient is currently on 5 L of oxygen nasal cannula. She is using incentive spirometer. She is laying down in bed. Reviewed the most recent chest x-ray an d it shows some atelectatic changes in lung bases bilaterally. Otherwise, there is no airspace's or consolidations. No chest pain. No pleurisy or hemoptysis. The patient has been maintained on heparin subcu for DVT prophylaxis throughout the admission. No swelling in lower extremities. No other complaints of respiratory distress for now. The white cell count of 10.7, hemoglobin 9.5 and a platelet count of 382. The patient's D-dimer is at 5.33 which is expectedly elevated. Sodium levels at 136, BUN is 19 with a creatinine of 0.51 and a potassium level is at 4. proBNP level is 115. She is awake and alert and she is communicating. On today's evaluation of 06/22/2024, the patient remains intubated on mechanical ventilator. The patient was taken to the operating room yesterday and the patient underwent small bowel resection, large bowel resection and lysis of adhesions. Post surgery, the patient was kept intubated the patient was brought into the ICU on propofol which is running at 50 mcg/kg/min. This morning, she is on assist-control mode of mechanical ventilation at rate of 18, tidal volume of 400, FiO2 50% with a PEEP of 5. The blood gas showed a pH of 7.37 with a pCO2 of 43 and pO2 of 127. Chest x-ray shows some mild elevation of the right hemidiaphragm. Otherwise no other significant abnormalities. The patient remains on TPN for nutritional support at a rate of 35 cc an hour. The patient is also on Levemir insulin 15 units daily plus a sliding scale coverage and normal citrate of 75 cc an hour. The patient has a white cell count of 22, hemoglobin of 12.4 and platelet count of 463. Rest of the electrolytes are all within normal limits. BUN 30 with a creatinine of 0.8. She remains n.p.o. on TPN. No other significant events overnight. She is calm and comfortable at this point. IV antibiotics in the form of Zosyn. On 06/23/2024, patient is being seen for a follow-up. The patient was weaned off the mechanical ventilator and the patient was extubated yesterday without any major difficulties. Over the afternoon, the patient started having increased abdominal pain. Based on that, the patient was given epidural and currently she is under adequate pain control with epidural at 9 cc an hour with Dilaudid and bupivacaine. OSCAR drain output is minimal and serosanguineous. NG output has been more than 1 L over the past 12 to 24 hours. The patient remains on TPN at rate of 87 cc an hour normal citrate of 75 cc an hour. She is currently extu bated on 3 L/min nasal cannula. The white cell count is 16.8 with hemoglobin 8.5 and a platelet count of 335. BUN is 25 with a creatinine of 0.7 and sodium levels at 140. On examination, she has no significant bowel sounds. Chest x- ray from yesterday was noted. There is some elevation of the right hemidiaphragm. Otherwise no other acute abnormalities noted. She was provided an incentive spirometer. Patient was seen on 06/24/24, patient remains on nasal cannula at 6 L, satting 94%, remains in the ICU, doing quite well. Relatively asymptomatic, tolerated the extubation well over the last couple of days. Patient is on TPN at 87 cc/h IV fluid at 75 cc/h her chest x-ray showed minimal basilar atelectasis specially at the right base, patient is doing well with incentive spirometry. And I plan to transfer the patient out of the ICU to the regular medical floor today WBC count is 13.5 hemoglobin 8.4 basic metabolic profile is normal renal profile is done The patient is seen today June 25, 2024 in follow-up on the regular medical floor. She was transferred out of the intensive care unit yesterday. She is awake and alert in no acute distress. She is maintaining O2 saturations in the 90s on 4 L/min per nasal cannula. She has normal staying at KVO. Nasogastric tube remains in place. She is working well with the incentive spirometer and pulling approximately 1500 mL. Her sputum culture was positive for Enterobacter cloacae complex and Serratia marcescens. Abdominal cultures positive for Nilda albicans and glabrata. Sodium 135. Potassium 3.3. Bicarb 27. BUN 17. Creatinine 0.58. Glucose 149. She remains on DuoNeb inhalations, Symbicort. Heparin for DVT prophylaxis. Antibiotics in the form of Zosyn and Eraxis. She is being nourished with TPN and lipids. The patient is seen today June 26, 2024 in follow-up on the regular medical floor. She is currently sitting up in a chair at the bedside. Awake and alert in no acute distress. She is maintaining good O2 saturations in the 90s on 4 L/min per nasal cannula. She is still having ongoing surgical site pain of the abdomen. Her abdominal dressing is dry and intact. OSCAR drain remains in place. She did have a bowel movement. Nasogastric tube remains in place. She remains NPO. Abdominal wound cultures were positive for Nilda. Sputum culture positive for Enterobacter cloacae complex, Serratia marcescens. Blood cultures revealing no growth. White count 12.9. Hemoglobin 8.4. Platelets 368. Sodium 135. Potassium 3.8. Bicarb 27. BUN 16. Creatinine 0.55. Glucose 243. Being nursed with TPN and lipids. Remains on Eraxis and Zosyn. Normal saline at 75 mL/h. The patient is seen today June 27, 2024 in follow-up on the regular medical floor. He is currently resting in bed. Awake and alert in no acute distress. She is maintaining O2 saturation in the 90s on 4 L/min per nasal cannula. She is continued on Symbicort, DuoNeb inhlations. Heparin for DVT prophylaxis. She remains on Zosyn. Continued on Eraxis. She remains nourished with TPN and lipids. Nasogastric tube to be discontinued. Sodium 138. Potassium 3.6. Bicarb 28. BUN 18. Creatinine 0.56. Glucose 224. AST 27. ALT 10. Alk phos 145. The patient is seen today June 28, 2024 in follow-up on the regular medical floor. She is awake and alert in no acute distress. Resting fairly comfortably in bed. She is maintaining O2 saturations in the 90s on 4 L/min per nasal cannula. She is afebrile. Hemodynamically stable. She remains on bronchodilators. Working well with the incentive spirometer. Heparin for DVT prophylaxis. She is tolerating a liquid diet to be advanced to regular. White count 13.2. Hemoglobin 7.6. Platelets 366. Sodium 137. Potassium 3.5. Bicarb 30. BUN 14. Creatinine 0.58. Glucose 199. The patient is seen today June 29, 2024 in follow-up on the regular medical floor. She is resting in bed. Awake and alert in no acute distress. She remains on oxygen at 3 L/min per nasal cannula. She is working well with the incentive spirometer. She has been up with assistance. She is continued on Symbicort, DuoNeb inhalations. Heparin for DVT prophylaxis. She has been advanced to a regular diet. White count 11.7. Hemoglobin 7.7. Platelets 384. Sodium 137. Potassium 3.4. Bicarb 29. BUN 14. Creatinine 0.6. Glucose 224. The patient is seen today June 30, 2024 in follow-up on the regular medical floor. She is awake and alert in no acute distress. Currently resting in bed. Denies any worsening shortness of breath, cough or congestion. She remains afebrile. Hemodynamically stable. She is continued on Symbicort, DuoNeb inhalations. Remains on Zosyn and Eraxis. Heparin for DVT prophylaxis. Tolerating a regular diet. Objective - Vital Signs Vital signs: Vital Signs Temp 97.7 F 06/30/24 07:24 Pulse 92 06/30/24 07:24 Resp 17 06/30/24 07:24 BP 102/63 06/30/24 07:24 Pulse Ox 95 06/30/24 08:21 FiO2 50 06/22/24 09:03 Intake & Output 06/29/24 06/30/24 06/30/24 18:59 06:59 18:59 Intake Total 1072 Output Total 10 Balance -10 1072 Intake: Intake, IV Titration 1072 Amount Mvi, Adult No.4 with Vit 1072 K 10 ml Trace (Conc-1Ml/ Dose) 1 ml Sodium Acetate 60 meq Potassium Chloride 34 meq Calcium Gluconate 1 gm Magnesium Sulfate gm 1 gm Potassium Phosphate 6 mmol In Amino Acids 5 %/Dextrose 20 % 1,000 ml @ 87 mls/hr IV .BY DURATION [facility] Rx#: [id number] Output: Drainage 10 Left Lower Abdomen 10 Other: Voiding Method Bedside Commode # Voids 3 1 # Bowel Movements 1 - Exam GENERAL EXAM: Alert, very pleasant 53-year-old female, sitting comfortably in bed, on 4 L nasal cannula, comfortable in no apparent distress. HEAD: Normocephalic. EYES: Normal reaction of pupils, equal size. NOSE: Clear with pink turbinates. THROAT: No erythema or exudates. NECK: No masses, no JVD. CHEST: No chest wall deformity. LUNGS: Equal air entry with no crackles, wheeze, rhonchi or dullness. CVS: S1 and S2 normal with no audible murmur, regular rhythm. ABDOMEN: Wound VAC in place. OSCAR drain in place with a small amount of serosanguineous output. SPINE: No scoliosis or deformity SKIN: No rashes CENTRAL NERVOUS SYSTEM: No focal deficits, tone is normal in all 4 extremities. EXTREMITIES: There is no peripheral edema. No clubbing, no cyanosis. Periphe ral pulses are intact. - Labs CBC & Chem 7: 06/29/24 04:22 06/30/24 02:40 Labs: Abnormal Lab Results - Last 24 Hours (Table) 06/30/24 Range/Units 02:40 Chloride 111 H (98-107) mmol/L Assessment and Plan Assessment: Acute on chronic hypoxemia. With postoperative atelectasis and underlying COPD Diverticular abscess/perforated diverticulitis and the patient has undergone open ileocecectomy on June 11 2024 Abdominal pain status post epidural pain control with bupivacaine and Dilaudid improved Coronary artery disease with bypass surgery COPD, maintained on a combination of Symbicort, Spiriva and albuterol rescue inhaler Hypertension Diabetes mellitus type 2 Plan: The patient was seen and evaluated Labs and medications reviewed Remains on bronchodilators, antibiotics Encouraged to spend more time out of bed Tolerating a regular diet Titrate down the FiO2 as tolerated This patient was seen independently by the pulmonary nurse practitioner addressing pulmonary issues I have personally seen and examined the patient, performed the documentation and the assessment and plan as written. Number of minutes spent on the visit: 24.
--- NOTE | 2024-06-30 14:01 | P.PN ---
Subjective Progress Note Date: 06/30/24 Subjective:Patient is a 53-year-old female with diabetes, hypertension, COPD, CABG with multiple stents most recently in November 2018 maintained on aspirin and Plavix presents with complaints of worsening abdominal pain. She was discharged from the hospital 2 days ago on Ceftin and Flagyl for colitis. During that hospital course her CT abdomen/pelvis revealed right-sided colitis she was started on IV Flagyl and ciprofloxacin and her WBCs trended down (11.5 to 8.21 on discharge). She endorsed improved pain throughout her stay and on the day of discharge she was asking to go home after she successfully ate lunch. During her stay her C. difficile PCR was negative. Endorses one episode of bloody marya sis yesterday, and approximately 6 other episodes of non-bloody emesis since discharge but has had no vomiting since admission last night. Endorses compliance with medications since discharge. States pain is 6/10 right now but was 100/10 just before coming to ED. Denies current chest pain, shortness of breath, nausea, vomiting, hematochezia. Endorses right lower quadrant pain. CT abdomen/pelvis revealed inflammatory changes involving the cecum with adjacent 2.3 cm intramural wall abscess and reactive small bowel ileus. WBCs 12.3, hemoglobin 13.4, platelets 580. Urinalysis unremarkable. Afebrile, tachycardic since improved, hypertensive with systolic [id number]. 06/07. Patient seen and examined at bedside. She states that the pain is improved. Surgery consultedno intervention at this time. Endorses mild diarrhea starting. WBC 7.62. 06/08. Patient seen and examined lying comfortably on bed. She states the pain is significantly improved. Lab results pending. 06/09. Patient is evaluated in follow up today. She is resting in bed she is holding her abdomen and reporting pain to the RLQ. She is requesting IV pain medication. Noted that follow up abdominal pelvis CT done today reveals similar findings with abnormally thickened wall of the colon adjacent to the ileocecal valve region. Similar surrounding mild inflammatory fat stranding consider focal colitis. Suspected intramural abscess here is smaller at 1.8 cm vs. 2.5 cm previously. Normal appendix. New prominent fluid within the stomach. Fluid- filled small bowel loops are more numerous now. Consider worsening ileus. Trace pelvic free fluid redemonstrated. No free air. Potassium 5.3. today. 06/10. Patient seen and examined at bedside. Patient still with significant amount of pain on the right side of the abdomen as well as epigastric area. She is NPO. She endorses nausea. She denies fever, chest pain, shortness of breath. Infectious disease consulted. Labs unremarkable. 06/11. Patient seen and examined. Continues to complain of abdominal pain. Denies any nausea or vomiting, passing gas. 06/12. Patient seen and examined at bedside lying comfortably. Continues to complain of abdominal pain. Excited but nervous for surgery. Denies any nausea, vomiting, fever, chills. Endorses passing gas and 3 episodes of diarrhea today. Patient going to the operating room today. Midline was placed this morning. 06/13. Patient seen lying in bed. She is postop day 1 status post diagnostic laparoscopic abdominal washout converted to open with ileocecectomy with drain placement. She is complaining of abdominal pain and a lot of pressure in epigastric region. She has not passed flatus. 06/14. Patient seen and examined laying in bed. She is postop day 2 status post diagnostic laparoscopic abdominal washout converted to open with ileocecectomy with drain placement. She endorses improved abdominal pain with pressure in the epigastric region. She has not passed flatus. OSCAR drain is serosanguineous fluid. Potassium 2.9. TPN has been started. 06/15. Patient seen laying in bed. She is postop day 3 status post diagnostic laparoscopic abdominal washout converted to open with ileocecectomy with drain placement. She endorses improved abdominal pain and increased ambulation. She has not passed flatus. She is ambulating well around the unit. OSCAR drain is serosanguineous fluid. Potassium is 3.2. Endorses nausea and relief with Zofran. 06/16. Patient seen and examined. Currently on TPN, states she feels better. Denies any nausea or vomiting, complaining of on and off abdominal pain. 06/17. Patient seen laying in bed. Postop day 5. Endorses epigastric abdomi nal pain. Ambulating well around the unit. Not passing flatus. 06/18. Patient seen and examined. Patient had 1 episode of emesis this morning, states she feels much better after that. Patient not passing gas. No bowel movement yet. 06/19. Patient seen and examined at bedside. No flatus, no bowel movement. Had an NG tube placed overnight. 06/20. Patient seen at bedside. Passing flatus, had a bowel movement yesterday. Still with NG tube with 900 mL output. Multiple episodes of vo miting yesterday. Patient states she feels less distended. 06/21. Patient seen and examined lying in bed. Endorses worsened abdominal pain. Endorses mild chest pain relieved with sitting up, worsened laying flat. 06/22. Patient transferred to ICU yesterday status post intubation due to acute on chronic hypoxic respiratory failure. Labs: WBCs 22.1, hemoglobin 12.4, platelets 463, sodium 138, potassium 4.8, CO2 24, creatinine 0.83. Patient underwent exploratory laparotomy yesterday. 06/23. Patient is evaluated today in the intensive care unit awake alert and oriented. Postoperative day #2 exploratory laparotomy and bowel resection. Patient received an epidural yesterday; states the pain level is manageable today and significantly improved. Patient with NG tube in place and per nursing staff was sucking water of the oral swabs and had increased gastric output because of it. Those were changed out to the lemon glycerin swabs. White blood cell count 16.8, hgb 8.9, Na -140, BUN 25, creatinine 0.72. 06/24. Patient seen in the ICU. She is postop day 3 of exploratory laparotomy and bowel resection and status post epidural placement day 3. She states her pain is better. She endorses mild abdominal pain due to surgery. She is still with an NG tube with 500 mL output and left OSCAR drain with minimal output. Labs: WBCs 13.5, hemoglobin 8.4, sodium 138, potassium 3.3. States she has had 2 bowel movements. Endorses mild nausea, no vomiting. Abdominal wound culture growing shyam and sputum culture growing gram negative bacilli preliminarily. 06/25/2024 Patient is evaluated on the medical floor. Patient is postoperative day #4 exploratory laporotomy and bowel resection. Epidural remains in place. Patient is up to the bedside commode today. Weeks catheter has been removed. NG tube remains in place. Sputum culture finalized showing enterobacter cloacae complex, serratia marcescens, shyam from the abdominal cultures. ID following remains on IV eraxis and IV zosyn. Continues on TPN and patient remains NPO. Sodium today 135, potassium 3.3, magnesium 1.9. 06/26/2024 Patient seen at bedside. No significant overnight events. Patient is postoperative day 5 exploratory laporotomy and bowel resection. Patient has had first formed BM. 06/27/2024 Patient seen at bedside. No significant overnight events. Patient reports pain is about the same as yesterday, but tolerable. No BM since yesterday. Surgery planning on removing NG tube if patient does not significantly fill NG tube container. If NG tube is able to be removed, will start on clears. 06/28/2024 Patient seen at bedside. No significant overnight events. Patient reports pain has improved from 10 out of 10 yesterday to now 8 out of 10 today. Patient reports she is tolerating clears well. 06/29/2024 Patient seen at bedside. No significant overnight events. Patient has progressed her diet from clears to regular diet now. TPN has been discontinued. 06/30. Patient seen and examined. States abdominal pain is improving. Tolerating diet. TPN has been discontinued Pertinent positives and negatives discussed above, a complete review of systems was preformed and all the other sytems were negative. Vitals Signs Reveiwed. General: non toxic, no distress, appears at stated age, normal weight Derm: no unusual rashes/lesions, warm Head: atraumatic, normocephalic, symmetric ENT: Nose and ears atraumatic Neck: No cervical lymphadenopathy, trachea midline, supple Mouth: no lip lesion, mucus membranes moist Cardiovascular: S1S2 reg, no murmur, positive dorsalis pedis pulse bilateral, no edema Lungs: Decreased air entry bilaterally, no rhonchi, no rales, no accessory muscle use Abdominal: soft, nontender to palpation, no guarding. Surgical incision seen Neuro: CN II-XI grossly intact, no gross focal neuro deficits Psych: Alert, oriented, appropriate affect Data Reveiwed Today: Patient Labs: WBC 11.7, hemoglobin 7.7, sodium 137, potassium 3.4, glucose 224, creatinine 0.6, phosphorus 3.2. Imaging: No new imaging. Assesment and Plan: Intramural wall abscess Right sided colitis status post day 13 diagnostic laparoscopic abdominal washout converted to open with ileocecectomy with drain placement TPN discontinued Surgery following Continue with Eraxis and Zosyn per infectious disease Ileus Status post day 5 exploratory laparotomy, small bowel resection x 2, colon resection, lysis of adhesions Surgery following Patient now on regular diet. Encourage ambulation Added toradol 15 Q6 for further pain management Acute on chronic hypoxic respiratory failure Successfully extubated and currently on 3 L nasal cannula Continue to wean oxygen Encourage use of incentive spirometer Hypokalemia, improved Monitor BMP Diabetes mellitus type 2 Insulin sliding scale changed to 5 units TID. Accuchecks ACHS Hypertension Continue Norvasc Hyperlipidemia Continue Lipitor COPD Continue Ventolin as needed Continue Symbicort Continue DuoNeb History of CABG and stents Continue aspirin Anxiety Continue Xanax as needed Objective - Vital Signs Vital signs: Vital Signs Temp 97.7 F 06/30/24 07:24 Pulse 92 06/30/24 07:24 Resp 17 06/30/24 07:24 BP 102/63 06/30/24 07:24 Pulse Ox 95 06/30/24 08:21 FiO2 50 06/22/24 09:03 Intake & Output 06/29/24 06/30/24 06/30/24 18:59 06:59 18:59 Intake Total 1072 Output Total 10 Balance -10 1072 Intake: Intake, IV Titration 1072 Amount Mvi, Adult No.4 with Vit 1072 K 10 ml Trace (Conc-1Ml/ Dose) 1 ml Sodium Acetate 60 meq Potassium Chloride 34 meq Calcium Gluconate 1 gm Magnesium Sulfate gm 1 gm Potassium Phosphate 6 mmol In Amino Acids 5 %/Dextrose 20 % 1,000 ml @ 87 mls/hr IV .BY DURATION [facility] Rx#: [id number] Output: Drainage 10 Left Lower Abdomen 10 Other: Voiding Method Bedside Commode # Voids 3 1 # Bowel Movements 1 - Labs CBC & Chem 7: 06/29/24 04:22 06/30/24 02:40 Labs: Abnormal Lab Results - Last 24 Hours (Table) 06/30/24 Range/Units 02:40 Chloride 111 H (98-107) mmol/L
[2024-06-30 16:41] LABS: Glucose,Whole Blood 126 mg/dL (70-110)
[2024-06-30 21:13] LABS: Glucose,Whole Blood 134 mg/dL (70-110)
[2024-07-01 03:36] LABS: African American GFR (CKD) >90 (>60 ml/min/1.73 sqM); Anion Gap 3 mmol/L; Blood Urea Nitrogen 15 mg/dL (7-17); Calcium 8.2 mg/dL (8.4-10.2); Carbon Dioxide 25 mmol/L (22-30); Chloride 109 mmol/L (98-107); Glucose 115 mg/dL (74-99); Magnesium 1.7 mg/dL (1.6-2.3); Non-African American GFR(CKD) 86 (>60 ml/min/1.73 sqM); Phosphorus 4.6 mg/dL (2.5-4.5); Potassium 3.8 mmol/L (3.5-5.1); Sodium 137 mmol/L (137-145)
[2024-07-01 05:50] LABS: Glucose,Whole Blood 100 mg/dL (70-110)
--- NOTE | 2024-07-01 08:37 | P.PN ---
Subjective Progress Note Date: 06/30/24 Principal diagnosis: Reason for follow-up is colitis/intra-abdominal abscess Patient is a 53-year-old female who recently did have multiple admission to the hospital regarding right sided abdominal pain has been diagnosed with colitis with intramural abscess failing outpatient oral antibiotic therapy. Patient is status post diagnostic laparoscopic abdominal washout converted to open laparotomy with loop cecectomy and drain placement. Patient was taken back to the OR patient is status post exploratory laparotomy, extensive lysis of adhesions greater than 1/3 of the case, small bowel resection x 2, proximal right colon resection completed on 06/22/2024 afternoon operative report did not mention any perforation or abscess. On today's evaluation that is 06/30/2024,the patient denies any fever or any chills, patient is breathing comfortably on room air, the patient denies chest pain shortness of breath and no significant cough, patient did have improvement in abdominal pain no nausea vomiting mention passing gas. Patient did have a creatinine 0.65 no CBC was done today Objective - Vital Signs Vital signs: Vital Signs Temp 99.0 F 06/30/24 14:08 Pulse 86 06/30/24 14:08 Resp 17 06/30/24 14:08 BP 106/71 06/30/24 14:08 Pulse Ox 97 06/30/24 14:08 FiO2 50 06/22/24 09:03 Intake & Output 06/29/24 06/30/24 06/30/24 18:59 06:59 18:59 Intake Total 1072 Output Total 10 Balance -10 1072 Intake: Intake, IV Titration 1072 Amount Mvi, Adult No.4 with Vit 1072 K 10 ml Trace (Conc-1Ml/ Dose) 1 ml Sodium Acetate 60 meq Potassium Chloride 34 meq Calcium Gluconate 1 gm Magnesium Sulfate gm 1 gm Potassium Phosphate 6 mmol In Amino Acids 5 %/Dextrose 20 % 1,000 ml @ 87 mls/hr IV .BY [facility] Rx#: [id number] Output: Drainage 10 Left Lower Abdomen 10 Other: Voiding Method Bedside Commode # Voids 3 1 # Bowel Movements 1 - Exam GENERAL DESCRIPTION: Middle-age female lying in bed in no distress RESPIRATORY SYSTEM: Unlabored breathing , decreased breath sounds at bases HEART: S1 S2 regular rate and rhythm , ABDOMEN: Soft , minimal tenderness EXTREMITIES: No edema feet - Labs CBC & Chem 7: 06/29/24 04:22 07/01/24 02:40 Labs: Abnormal Lab Results - Last 24 Hours (Table) 06/30/24 06/30/24 Range/Units 02:40 16:40 Chloride 111 H (98-107) mmol/L POC Glucose (mg/dL) 126 H (70-110) mg/dL Assessment and Plan (1) Colitis with abscess Current Visit: Yes Status: Acute Code(s): K52.9 - NONINFECTIVE GASTROENTERITIS AND COLITIS, UNSPECIFIED; K63.0 - ABSCESS OF INTESTINE SNOMED Code(s): 98966343 Plan: 1patient with a multiple admission to the hospital has been diagnosed with a colitis with intramural abscess that has failed outpatient oral Ceftin and Flagyl therapy with repeat CT did shows persistent features of colitis around the cecum with intramural abscess and slow clinical response to the medical therapy patient is status post laparotomy with ileocecectomy and drain placement unfortunately no cultures were done 2-patient remains to be afebrile,, patient did have CT with evidence of ileus did not mention any perforation or colitis abdominal x-rays with extensive bowel gas 3-patient taken back to the OR in this patient who is status post exploratory laparotomy resection of the portion of the bowel and abdominal culture currently growing Nilda albicans as well as glabrata, sputum cultures growing Enterobacter and Serratia sensitive to Zosyn 4patient did have resolution of the fever white count is down to 11.7 as of yesterday no CBC was done today, patient is currently being treated with Eraxis and Zosyn and continue supportive care Dictation was produced using [employer] dictation software. please excuse any grammatical, word or spelling errors. Time with Patient: Less than 30
[2024-07-01 11:50] LABS: Glucose,Whole Blood 83 mg/dL (70-110)
--- NOTE | 2024-07-01 12:07 | P.PN ---
Subjective Progress Note Date: 07/01/24 Principal diagnosis: Reason for follow-up is colitis/intra-abdominal abscess Patient is a 53-year-old female who recently did have multiple admission to the hospital regarding right sided abdominal pain has been diagnosed with colitis with intramural abscess failing outpatient oral antibiotic therapy. Patient is status post diagnostic laparoscopic abdominal washout converted to open laparotomy with loop cecectomy and drain placement. Patient was taken back to the OR patient is status post exploratory laparotomy, extensive lysis of adhesions greater than 1/3 of the case, small bowel resection x 2, proximal right colon resection completed on 06/22/2024 afternoon operative report did not mention any perforation or abscess. On today's evaluation that is 07/01/2024,the patient remains to be afebrile, patient is on room air not requiring supplemental oxygen and denies any shortness of breath no chest pain or cough.Patient denies having any nausea or vomiting, abdominal pain has decreased in intensity passing gas has been complaining of mostly cold sores around the upper and lower lip. Patient did have a creatinine 0.78 Objective - Vital Signs Vital signs: Vital Signs Temp 98.7 F 07/01/24 07:12 Pulse 95 07/01/24 07:50 Resp 17 07/01/24 07:50 BP 148/87 07/01/24 07:12 Pulse Ox 96 07/01/24 07:12 FiO2 50 06/22/24 09:03 Intake & Output 06/30/24 07/01/24 07/01/24 18:59 06:59 18:59 Output Total 0 0 Balance 0 0 Output: Drainage 0 0 Left Lower Abdomen 0 0 Other: Voiding Method Toilet Toilet # Voids 3 1 # Bowel Movements 2 - Exam GENERAL DESCRIPTION: Middle-age female lying in bed in no distress RESPIRATORY SYSTEM: Unlabored breathing , decreased breath sounds at bases HEART: S1 S2 regular rate and rhythm , ABDOMEN: Soft , minimal tenderness EXTREMITIES: No edema feet - Labs CBC & Chem 7: 06/29/24 04:22 07/01/24 02:40 Labs: Abnormal Lab Results - Last 24 Hours (Table) 06/30/24 06/30/24 07/01/24 Range/Units 16:40 21:12 02:40 Chloride 109 H (98-107) mmol/L Glucose 115 H (74-99) mg/dL POC Glucose (mg/dL) 126 H 134 H (70-110) mg/dL Calcium 8.2 L (8.4-10.2) mg/dL Phosphorus 4.6 H (2.5-4.5) mg/dL Assessment and Plan (1) Colitis with abscess Current Visit: Yes Status: Acute Code(s): K52.9 - NONINFECTIVE GASTROENTERITIS AND COLITIS, UNSPECIFIED; K63.0 - ABSCESS OF INTESTINE SNOMED Code(s): 78265878 (2) Herpes labialis Current Visit: Yes Status: Acute Code(s): B00.1 - HERPESVIRAL VESICULAR DERMATITIS SNOMED Code(s): 3150991 Plan: 1patient with a multiple admission to the hospital has been diagnosed with a colitis with intramural abscess that has failed outpatient oral Ceftin and Flagyl therapy with repeat CT did shows persistent features of colitis around the cecum with intramural abscess and slow clinical response to the medical therapy patient is status post laparotomy with ileocecectomy and drain placement unfortunately no cultures were done 2-patient remains to be afebrile,, patient did have CT with evidence of ileus did not mention any perforation or colitis abdominal x-rays with extensive bowel gas 3-patient taken back to the OR in this patient who is status post exploratory laparotomy resection of the portion of the bowel and abdominal culture currently growing Nilda albicans as well as glabrata, sputum cultures growing Enterobacter and Serratia sensitive to Zosyn 4patient did have resolution of the fever white count is down to 11.7 as of 06/29/2024 no CBC was done today, 5-patient to continue with Eraxis and Zosyn, keeping in mind the patient is on multiple medications that are interacting with the voriconazole we will consider 7-day course of Eraxis and Zosyn on discharge 6-herpes labialis patient has been started on Valtrex will see clinical response Dictation was produced using [employer] dictation software. please excuse any grammatical, word or spelling errors. Time with Patient: Less than 30
[2024-07-01] MEDS: valACYclovir HCL 1,000 MG TABLET PO SCH (12:52)
--- NOTE | 2024-07-01 13:29 | P.PN ---
Subjective Progress Note Date: 07/01/24 This is a 53-year-old female patient is being seen in consultation as the patient has noted to be more hypoxic during this current admission. The patient has been in the hospital since 06/06/2023 and the patient has a perforated diverticular abscess. The patient has undergone a diagnostic laparoscopy con verted to open ileocecectomy and this was done on 06/14/2024. Since then, the patient has been kept NPO. NG tube still in place. No reported aspiration. Surgical site is dry clean and intact. The patient's output from the OSCAR drain is serosanguineous. The patient has no fever or chills. No hemodynamic instability. She is known to have COPD and she claims that she has been oxygen dependent at home somewhere between 2 to 3 L and she was using it only on a history basis. Her oxygen requirements have been gradually increasing and the patient is currently on 5 L of oxygen nasal cannula. She is using incentive spirometer. She is laying down in bed. Reviewed the most recent chest x-ray an d it shows some atelectatic changes in lung bases bilaterally. Otherwise, there is no airspace's or consolidations. No chest pain. No pleurisy or hemoptysis. The patient has been maintained on heparin subcu for DVT prophylaxis throughout the admission. No swelling in lower extremities. No other complaints of respiratory distress for now. The white cell count of 10.7, hemoglobin 9.5 and a platelet count of 382. The patient's D-dimer is at 5.33 which is expectedly elevated. Sodium levels at 136, BUN is 19 with a creatinine of 0.51 and a potassium level is at 4. proBNP level is 115. She is awake and alert and she is communicating. On today's evaluation of 06/22/2024, the patient remains intubated on mechanical ventilator. The patient was taken to the operating room yesterday and the patient underwent small bowel resection, large bowel resection and lysis of adhesions. Post surgery, the patient was kept intubated the patient was brought into the ICU on propofol which is running at 50 mcg/kg/min. This morning, she is on assist-control mode of mechanical ventilation at rate of 18, tidal volume of 400, FiO2 50% with a PEEP of 5. The blood gas showed a pH of 7.37 with a pCO2 of 43 and pO2 of 127. Chest x-ray shows some mild elevation of the right hemidiaphragm. Otherwise no other significant abnormalities. The patient remains on TPN for nutritional support at a rate of 35 cc an hour. The patient is also on Levemir insulin 15 units daily plus a sliding scale coverage and normal citrate of 75 cc an hour. The patient has a white cell count of 22, hemoglobin of 12.4 and platelet count of 463. Rest of the electrolytes are all within normal limits. BUN 30 with a creatinine of 0.8. She remains n.p.o. on TPN. No other significant events overnight. She is calm and comfortable at this point. IV antibiotics in the form of Zosyn. On 06/23/2024, patient is being seen for a follow-up. The patient was weaned off the mechanical ventilator and the patient was extubated yesterday without any major difficulties. Over the afternoon, the patient started having increased abdominal pain. Based on that, the patient was given epidural and currently she is under adequate pain control with epidural at 9 cc an hour with Dilaudid and bupivacaine. OSCAR drain output is minimal and serosanguineous. NG output has been more than 1 L over the past 12 to 24 hours. The patient remains on TPN at rate of 87 cc an hour normal citrate of 75 cc an hour. She is currently extu bated on 3 L/min nasal cannula. The white cell count is 16.8 with hemoglobin 8.5 and a platelet count of 335. BUN is 25 with a creatinine of 0.7 and sodium levels at 140. On examination, she has no significant bowel sounds. Chest x- ray from yesterday was noted. There is some elevation of the right hemidiaphragm. Otherwise no other acute abnormalities noted. She was provided an incentive spirometer. Patient was seen on 06/24/24, patient remains on nasal cannula at 6 L, satting 94%, remains in the ICU, doing quite well. Relatively asymptomatic, tolerated the extubation well over the last couple of days. Patient is on TPN at 87 cc/h IV fluid at 75 cc/h her chest x-ray showed minimal basilar atelectasis specially at the right base, patient is doing well with incentive spirometry. And I plan to transfer the patient out of the ICU to the regular medical floor today WBC count is 13.5 hemoglobin 8.4 basic metabolic profile is normal renal profile is done The patient is seen today June 25, 2024 in follow-up on the regular medical floor. She was transferred out of the intensive care unit yesterday. She is awake and alert in no acute distress. She is maintaining O2 saturations in the 90s on 4 L/min per nasal cannula. She has normal staying at KVO. Nasogastric tube remains in place. She is working well with the incentive spirometer and pulling approximately 1500 mL. Her sputum culture was positive for Enterobacter cloacae complex and Serratia marcescens. Abdominal cultures positive for Nilda albicans and glabrata. Sodium 135. Potassium 3.3. Bicarb 27. BUN 17. Creatinine 0.58. Glucose 149. She remains on DuoNeb inhalations, Symbicort. Heparin for DVT prophylaxis. Antibiotics in the form of Zosyn and Eraxis. She is being nourished with TPN and lipids. The patient is seen today June 26, 2024 in follow-up on the regular medical floor. She is currently sitting up in a chair at the bedside. Awake and alert in no acute distress. She is maintaining good O2 saturations in the 90s on 4 L/min per nasal cannula. She is still having ongoing surgical site pain of the abdomen. Her abdominal dressing is dry and intact. OSCAR drain remains in place. She did have a bowel movement. Nasogastric tube remains in place. She remains NPO. Abdominal wound cultures were positive for Nilda. Sputum culture positive for Enterobacter cloacae complex, Serratia marcescens. Blood cultures revealing no growth. White count 12.9. Hemoglobin 8.4. Platelets 368. Sodium 135. Potassium 3.8. Bicarb 27. BUN 16. Creatinine 0.55. Glucose 243. Being nursed with TPN and lipids. Remains on Eraxis and Zosyn. Normal saline at 75 mL/h. The patient is seen today June 27, 2024 in follow-up on the regular medical floor. He is currently resting in bed. Awake and alert in no acute distress. She is maintaining O2 saturation in the 90s on 4 L/min per nasal cannula. She is continued on Symbicort, DuoNeb inhlations. Heparin for DVT prophylaxis. She remains on Zosyn. Continued on Eraxis. She remains nourished with TPN and lipids. Nasogastric tube to be discontinued. Sodium 138. Potassium 3.6. Bicarb 28. BUN 18. Creatinine 0.56. Glucose 224. AST 27. ALT 10. Alk phos 145. The patient is seen today June 28, 2024 in follow-up on the regular medical floor. She is awake and alert in no acute distress. Resting fairly comfortably in bed. She is maintaining O2 saturations in the 90s on 4 L/min per nasal cannula. She is afebrile. Hemodynamically stable. She remains on bronchodilators. Working well with the incentive spirometer. Heparin for DVT prophylaxis. She is tolerating a liquid diet to be advanced to regular. White count 13.2. Hemoglobin 7.6. Platelets 366. Sodium 137. Potassium 3.5. Bicarb 30. BUN 14. Creatinine 0.58. Glucose 199. The patient is seen today June 29, 2024 in follow-up on the regular medical floor. She is resting in bed. Awake and alert in no acute distress. She remains on oxygen at 3 L/min per nasal cannula. She is working well with the incentive spirometer. She has been up with assistance. She is continued on Symbicort, DuoNeb inhalations. Heparin for DVT prophylaxis. She has been advanced to a regular diet. White count 11.7. Hemoglobin 7.7. Platelets 384. Sodium 137. Potassium 3.4. Bicarb 29. BUN 14. Creatinine 0.6. Glucose 224. The patient is seen today June 30, 2024 in follow-up on the regular medical floor. She is awake and alert in no acute distress. Currently resting in bed. Denies any worsening shortness of breath, cough or congestion. She remains afebrile. Hemodynamically stable. She is continued on Symbicort, DuoNeb inhalations. Remains on Zosyn and Eraxis. Heparin for DVT prophylaxis. Tolerating a regular diet. The patient is seen today July 01, 2024 in follow-up on the regular medical floor. She is currently resting comfortably in bed. Awake and alert in no acute distress. She is maintaining good O2 saturations in the 90s on 2 L/min per nasal cannula. She denies any worsening shortness of breath, cough or congestion. Sodium 137. Potassium 3.8. Bicarb 25. BUN 15. Creatinine 0.78. Glucose 115. Abdominal wound VAC remains in place. OSCAR drain in place. She is continued on Zosyn and Eraxis. Heparin for DVT prophylaxis. Continued on Symbicort, DuoNeb inhalations. She is tolerating a diet. Objective - Vital Signs Vital signs: Vital Signs Temp 98.7 F 07/01/24 07:12 Pulse 95 07/01/24 07:50 Resp 17 07/01/24 07:50 BP 148/87 07/01/24 07:12 Pulse Ox 96 07/01/24 07:12 FiO2 50 06/22/24 09:03 Intake & Output 06/30/24 07/01/24 07/01/24 18:59 06:59 18:59 Output Total 0 0 Balance 0 0 Weight 89.3 kg Output: Drainage 0 0 Left Lower Abdomen 0 0 Other: Voiding Method Toilet Toilet # Voids 3 1 # Bowel Movements 2 - Exam GENERAL EXAM: Alert, 53-year-old female, resting in bed, on 2 L/min per nasal cannula, in no apparent distress. HEAD: Normocephalic. EYES: Normal reaction of pupils, equal size. NOSE: Clear with pink turbinates. THROAT: No erythema or exudates. NECK: No masses, no JVD. CHEST: No chest wall deformity. LUNGS: Equal air entry with no crackles, wheeze, rhonchi or dullness. CVS: S1 and S2 normal with no audible murmur, regular rhythm. ABDOMEN: Wound VAC in place. OSCAR drain in place with a small amount of ser osanguineous output. SPINE: No scoliosis or deformity SKIN: No rashes CENTRAL NERVOUS SYSTEM: No focal deficits, tone is normal in all 4 extremities. EXTREMITIES: There is no peripheral edema. No clubbing, no cyanosis. Peripheral pulses are intact. - Labs CBC & Chem 7: 06/29/24 04:22 07/01/24 02:40 Labs: Abnormal Lab Results - Last 24 Hours (Table) 06/30/24 06/30/24 07/01/24 Range/Units 16:40 21:12 02:40 Chloride 109 H (98-107) mmol/L Glucose 115 H (74-99) mg/dL POC Glucose (mg/dL) 126 H 134 H (70-110) mg/dL Calcium 8.2 L (8.4-10.2) mg/dL Phosphorus 4.6 H (2.5-4.5) mg/dL Assessment and Plan Assessment: Acute on chronic hypoxemia. With postoperative atelectasis and underlying COPD Diverticular abscess/perforated diverticulitis and the patient has undergone open ileocecectomy on June 11 2024 Abdominal pain status post epidural pain control with bupivacaine and Dilaudid improved Coronary artery disease with bypass surgery COPD, maintained on a combination of Symbicort, Spiriva and albuterol rescue inhaler Hypertension Diabetes mellitus type 2 Plan: The patient was seen and evaluated Labs and medications reviewed Remains on bronchodilators, antibiotics She has been up ambulating in the hallway Remains on oxygen at 2 L/min per nasal cannula Titrate down the FiO2 as tolerated I have personally seen and examined the patient, performed the documentation and the assessment and plan as written. Number of minutes spent on the visit: 10.
--- NOTE | 2024-07-01 13:46 | P.PN ---
Subjective Progress Note Date: 07/01/24 CHIEF COMPLAINT: Colitis with intramural wall abscess HISTORY OF PRESENT ILLNESS: Patient is status post diagnostic laparoscopy converted to open with ileocecectomy on 06/11/24. She was taken to back to the OR on 06/21/2024 and is status post exploratory laparotomy, extensive lysis of adhesions, small bowel resection x 2 and proximal right colon resection for small bowel obstruction secondary to adhesions and inflammation. Patient's pain is controlled. She is tolerating diet. She is having bowel movements. She is complaining of cold sores around her mouth. Afebrile. WBC 11.7 on 06/29. OSCAR drain no new output. PHYSICAL EXAM: VITAL SIGNS: Reviewed. GENERAL: no acute distress. ABDOMEN: Soft. Nondistended. Minimal Tenderness at incision site. Prevena wound VAC intact. Minimal OSCAR drain serosanguineous output NEUROLOGIC: Alert and oriented. Cranial nerves II through XII grossly intact. ASSESSMENT: 1. Colitis with intramural wall abscess 2. Small bowel obstruction secondary to adhesions and inflammation 3. Moderate protein calorie malnutrition PLAN -Okay to discontinue OSCAR drain -Okay to discontinue Prevena wound vac dressing -Patient can be discharged from surgical standpoint -Discharge antibiotics per infectious disease -farm manager working on discharging patient to ECF -DVT prophylaxis subcu heparin GI prophylaxis Protonix Physician Hot Stamp Operator note has been reviewed by physician. Signing provider agrees with the documented findings, assessment, and plan of care. Objective - Vital Signs Vital signs: Vital Signs Temp 98.7 F 07/01/24 07:12 Pulse 95 07/01/24 07:50 Resp 17 07/01/24 07:50 BP 148/87 07/01/24 07:12 Pulse Ox 96 07/01/24 07:12 FiO2 50 06/22/24 09:03 Intake & Output 06/30/24 07/01/24 07/01/24 18:59 06:59 18:59 Output Total 0 0 Balance 0 0 Weight 89.3 kg Output: Drainage 0 0 Left Lower Abdomen 0 0 Other: Voiding Method Toilet Toilet # Voids 3 1 # Bowel Movements 2 - Labs CBC & Chem 7: 06/29/24 04:22 07/01/24 02:40 Labs: Abnormal Lab Results - Last 24 Hours (Table) 10/06/24 10/06/24 10/07/24 Range/Units 16:40 21:12 02:40 Chloride 109 H (98-107) mmol/L Glucose 115 H (74-99) mg/dL POC Glucose (mg/dL) 126 H 134 H (70-110) mg/dL Calcium 8.2 L (8.4-10.2) mg/dL Phosphorus 4.6 H (2.5-4.5) mg/dL
--- NOTE | 2024-07-01 14:38 | P.PN ---
Subjective Subjective:Patient is a 53-year-old female with diabetes, hypertension, COPD, CABG with multiple stents most recently in November 2018 maintained on aspirin and Plavix presents with complaints of worsening abdominal pain. She was discharged from the hospital 2 days ago on Ceftin and Flagyl for colitis. During that hospital course her CT abdomen/pelvis revealed right-sided colitis she was started on IV Flagyl and ciprofloxacin and her WBCs trended down (11.5 to 8.21 on discharge). She endorsed improved pain throughout her stay and on the day of discharge she was asking to go home after she successfully ate lunch. During her stay her C. difficile PCR was negative. Endorses one episode of bloody emesis yesterday, and approximately 6 other episodes of non-bloody emesis since discharge but has had no vomiting since admission last night. Endorses compliance with medications since discharge. States pain is 6/10 right now but was 100/10 just before coming to ED. Denies current chest pain, shortness of breath, nausea, vomiting, hematochezia. Endorses right lower quadrant pain. CT abdomen/pelvis revealed inflammatory changes involving the cecum with adjacent 2.3 cm intramural wall abscess and reactive small bowel ileus. WBCs 12.3, hemoglobin 13.4, platelets 580. Urinalysis unremarkable. Afebrile, tachycardic since improved, hypertensive with systolic [id number]. 06/07. Patient seen and examined at bedside. She states that the pain is improved. Surgery consultedno intervention at this time. Endorses mild diarrhea starting. WBC 7.62. 06/08. Patient seen and examined lying comfortably on bed. She states the pain is significantly improved. Lab results pending. 06/09. Patient is evaluated in follow up today. She is resting in bed she is holding her abdomen and reporting pain to the RLQ. She is requesting IV pain medication. Noted that follow up abdominal pelvis CT done today reveals similar findings with abnormally thickened wall of the colon adjacent to the ileocecal valve region. Similar surrounding mild inflammatory fat stranding consider focal colitis. Suspected intramural abscess here is smaller at 1.8 cm vs. 2.5 cm previously. Normal appendix. New prominent fluid within the stomach. Fluid- filled small bowel loops are more numerous now. Consider worsening ileus. Trace pelvic free fluid redemonstrated. No free air. Potassium 5.3. today. 06/10. Patient seen and examined at bedside. Patient still with significant amount of pain on the right side of the abdomen as well as epigastric area. She is NPO. She endorses nausea. She denies fever, chest pain, shortness of breath. Infectious disease consulted. Labs unremarkable. 06/11. Patient seen and examined. Continues to complain of abdominal pain. Denies any nausea or vomiting, passing gas. 06/12. Patient seen and examined at bedside lying comfortably. Continues to complain of abdominal pain. Excited but nervous for surgery. Denies any nausea, vomiting, fever, chills. Endorses passing gas and 3 episodes of diarrhea today. Patient going to the operating room today. Midline was placed this morning. 06/13. Patient seen lying in bed. She is postop day 1 status post diagnostic laparoscopic abdominal washout converted to open with ileocecectomy with drain placement. She is complaining of abdominal pain and a lot of pressure in epigastric region. She has not passed flatus. 06/14. Patient seen and examined laying in bed. She is postop day 2 status post diagnostic laparoscopic abdominal washout converted to open with ileocecectomy with drain placement. She endorses improved abdominal pain with pressure in the epigastric region. She has not passed flatus. OSCAR drain is serosanguineous fluid. Potassium 2.9. TPN has been started. 06/15. Patient seen laying in bed. She is postop day 3 status post diagnostic laparoscopic abdominal washout converted to open with ileocecectomy with drain placement. She endorses improved abdominal pain and increased ambulation. She has not passed flatus. She is ambulating well around the unit. OSCAR drain is serosanguineous fluid. Potassium is 3.2. Endorses nausea and relief with Zofran. 06/16. Patient seen and examined. Currently on TPN, states she feels better. Denies any nausea or vomiting, complaining of on and off abdominal pain. 06/17. Patient seen laying in bed. Postop day 5. Endorses epigastric abdominal pain. Ambulating well around the unit. Not passing flatus. 06/18. Patient seen and examined. Patient had 1 episode of emesis this mor camilo, states she feels much better after that. Patient not passing gas. No bowel movement yet. 06/19. Patient seen and examined at bedside. No flatus, no bowel movement. Had an NG tube placed overnight. 06/20. Patient seen at bedside. Passing flatus, had a bowel movement yesterday. Still with NG tube with 900 mL output. Multiple episodes of vomiting yesterday. Patient states she feels less distended. 06/21. Patient seen and examined lying in bed. Endorses worsened abdominal pain. Endorses mild chest pain relieved with sitting up, worsened laying flat. 06/22. Patient transferred to ICU yesterday status post intubation due to acute on chronic hypoxic respiratory failure. Labs: WBCs 22.1, hemoglobin 12.4, platelets 463, sodium 138, potassium 4.8, CO2 24, creatinine 0.83. Patient underwent exploratory laparotomy yesterday. 06/23. Patient is evaluated today in the intensive care unit awake alert and oriented. Postoperative day #2 exploratory laparotomy and bowel resection. Patient received an epidural yesterday; states the pain level is manageable today and significantly improved. Patient with NG tube in place and per nursing staff was sucking water of the oral swabs and had increased gastric output because of it. Those were changed out to the lemon glycerin swabs. White blood cell count 16.8, hgb 8.9, Na -140, BUN 25, creatinine 0.72. 06/24. Patient seen in the ICU. She is postop day 3 of exploratory laparotomy and bowel resection and status post epidural placement day 3. She states her pain is better. She endorses mild abdominal pain due to surgery. She is still with an NG tube with 500 mL output and left OSCAR drain with minimal output. Labs: WBCs 13.5, hemoglobin 8.4, sodium 138, potassium 3.3. States she has had 2 bowel movements. Endorses mild nausea, no vomiting. Abdominal wound culture growing shyam and sputum culture growing gram negative bacilli preliminarily. 06/25/2024 Patient is evaluated on the medical floor. Patient is postoperative day #4 exploratory laporotomy and bowel resection. Epidural remains in place. Patient is up to the bedside commode today. Weeks catheter has been removed. NG tube remains in place. Sputum culture finalized showing enterobacter cloacae complex, serratia marcescens, shyam from the abdominal cultures. ID following remains on IV eraxis and IV zosyn. Continues on TPN and patient remains NPO. Sodium today 135, potassium 3.3, magnesium 1.9. 06/26/2024 Patient seen at bedside. No significant overnight events. Patient is postoperative day 5 exploratory laporotomy and bowel resection. Patient has had first formed BM. 06/27/2024 Patient seen at bedside. No significant overnight events. Patient reports pain is about the same as yesterday, but tolerable. No BM since yesterday. Surgery planning on removing NG tube if patient does not significantly fill NG tube container. If NG tube is able to be removed, will start on clears. 06/28/2024 Patient seen at bedside. No significant overnight events. Patient reports pain has improved from 10 out of 10 yesterday to now 8 out of 10 today. Patient reports she is tolerating clears well. 06/29/2024 Patient seen at bedside. No significant overnight events. Patient has progressed her diet from clears to regular diet now. TPN has been discontinued. 06/30. Patient seen and examined. States abdominal pain is improving. Yelena erating diet. TPN has been discontinued 07/01/2024 Patient seen at bedside and no significant overnight events. Patient continues to tolerate regular diet well. Patient is having bowel movements. Patient reports she is able to get up walk around and go to the bathroom on her own volition. Patient found to have some vesicular lesions perioral and in the naris bilaterally. Pertinent positives and negatives discussed above, a complete review of systems was preformed and all the other sytems were negative. Vitals Signs Reveiwed. General: non toxic, no distress, appears at stated age, normal weight Derm: no unusual rashes/lesions, warm Head: atraumatic, normocephalic, symmetric ENT: Nose and ears atraumatic Neck: No cervical lymphadenopathy, trachea midline, supple Mouth: no lip lesion, mucus membranes moist Cardiovascular: S1S2 reg, no murmur, positive dorsalis pedis pulse bilateral, no edema Lungs: Decreased air entry bilaterally, no rhonchi, no rales, no accessory muscle use Abdominal: soft, nontender to palpation, no guarding. Surgical incision seen Neuro: CN II-XI grossly intact, no gross focal neuro deficits Psych: Alert, oriented, appropriate affect Data Reveiwed Today: Patient Labs: WBC 11.7, hemoglobin 7.7, sodium 137, potassium 3.4, glucose 224, creatinine 0.6, phosphorus 3.2. Imaging: No new imaging. Assesment and Plan: Intramural wall abscess Right sided colitis status post day 13 diagnostic laparoscopic abdominal washout converted to open with ileocecectomy with drain placement TPN discontinued Surgery following Continue with Eraxis (day 7) and Zosyn (day 10) per infectious disease Ileus Status post day 5 exploratory laparotomy, small bowel resection x 2, colon resection, lysis of adhesions Surgery following Patient now on regular diet. 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 twice daily for 2 days Hypokalemia, improved Monitor BMP Diabetes mellitus type 2 Insulin sliding scale changed to 5 units TID. Accuchecks ACHS Hypertension Continue Norvasc Hyperlipidemia Continue Lipitor COPD Continue Ventolin as needed Continue Symbicort Continue DuoNeb History of CABG and stents Continue aspirin Anxiety Continue Xanax as needed F: NS 75 cc/h E: Magnesium N: Regular diet A: Is able to ambulate unassisted Anticipated place of discharge: Acute rehab Anticipated time of discharge: Potentially tomorrow pending Auth from case management. Attestation I have seen and examined this patient with my resident , discussed the same with the resident/OLIVIA, and agree with the dictator's assessment and plan as written Dr. Isra lundy Objective - Vital Signs Vital signs: Vital Signs Temp 98.9 F 07/01/24 02:00 Pulse 89 07/01/24 02:00 Resp 17 06/30/24 14:08 BP 138/86 07/01/24 02:00 Pulse Ox 88 L 07/01/24 02:00 FiO2 50 06/22/24 09:03 Intake & Output 06/30/24 07/01/24 07/01/24 18:59 06:59 18:59 Output Total 0 Balance 0 Output: Drainage 0 Left Lower Abdomen 0 Other: Voiding Method Toilet # Voids 3 # Bowel Movements 2 - Labs CBC & Chem 7: 06/29/24 04:22 07/02/24 02:29 Labs: Abnormal Lab Results - Last 24 Hours (Table) 06/30/24 06/30/2407/01/24 Range/Units 16:40 21:12 02:40 Chloride 109 H (98-107) mmol/L Glucose 115 H (74-99) mg/dL POC Glucose (mg/dL) 126 H 134 H (70-110) mg/dL Calcium 8.2 L (8.4-10.2) mg/dL Phosphorus 4.6 H (2.5-4.5) mg/dL
[2024-07-01 16:39] LABS: Glucose,Whole Blood 118 mg/dL (70-110)
[2024-07-01] MEDS: HYDROmorphone 1 MG/ML 1 ML SYRINGE IVP PRN (18:39)
[2024-07-01 21:46] LABS: Glucose,Whole Blood 93 mg/dL (70-110)
[2024-07-02 06:14] LABS: Glucose,Whole Blood 93 mg/dL (70-110)
[2024-07-02 08:47] LABS: Blood Urea Nitrogen 7.7 mg/dL (9.0-27.0); Carbon Dioxide 21.2 mmol/L (21.6-31.8); Chloride 111 mmol/L (96-109); Glucose 88 mg/dL (70-110); Potassium 3.7 mmol/L (3.5-5.5); Sodium 143 mmol/L (135-145)
[2024-07-02 11:10] LABS: Glucose,Whole Blood 74 mg/dL (70-110)
[2024-07-02] MEDS: ERTAPENEM 1 GM in SODIUM CHLORIDE 0.9% 50 ML IVPB SCH (12:07)
--- NOTE | 2024-07-02 13:50 | P.PN ---
Subjective Progress Note Date: 07/02/24 This is a 53-year-old female patient is being seen in consultation as the patient has noted to be more hypoxic during this current admission. The patient has been in the hospital since 06/06/2023 and the patient has a perforated diverticular abscess. The patient has undergone a diagnostic laparoscopy con verted to open ileocecectomy and this was done on 06/14/2024. Since then, the patient has been kept NPO. NG tube still in place. No reported aspiration. Surgical site is dry clean and intact. The patient's output from the OSCAR drain is serosanguineous. The patient has no fever or chills. No hemodynamic instability. She is known to have COPD and she claims that she has been oxygen dependent at home somewhere between 2 to 3 L and she was using it only on a history basis. Her oxygen requirements have been gradually increasing and the patient is currently on 5 L of oxygen nasal cannula. She is using incentive spirometer. She is laying down in bed. Reviewed the most recent chest x-ray an d it shows some atelectatic changes in lung bases bilaterally. Otherwise, there is no airspace's or consolidations. No chest pain. No pleurisy or hemoptysis. The patient has been maintained on heparin subcu for DVT prophylaxis throughout the admission. No swelling in lower extremities. No other complaints of respiratory distress for now. The white cell count of 10.7, hemoglobin 9.5 and a platelet count of 382. The patient's D-dimer is at 5.33 which is expectedly elevated. Sodium levels at 136, BUN is 19 with a creatinine of 0.51 and a potassium level is at 4. proBNP level is 115. She is awake and alert and she is communicating. On today's evaluation of 06/22/2024, the patient remains intubated on mechanical ventilator. The patient was taken to the operating room yesterday and the patient underwent small bowel resection, large bowel resection and lysis of adhesions. Post surgery, the patient was kept intubated the patient was brought into the ICU on propofol which is running at 50 mcg/kg/min. This morning, she is on assist-control mode of mechanical ventilation at rate of 18, tidal volume of 400, FiO2 50% with a PEEP of 5. The blood gas showed a pH of 7.37 with a pCO2 of 43 and pO2 of 127. Chest x-ray shows some mild elevation of the right hemidiaphragm. Otherwise no other significant abnormalities. The patient remains on TPN for nutritional support at a rate of 35 cc an hour. The patient is also on Levemir insulin 15 units daily plus a sliding scale coverage and normal citrate of 75 cc an hour. The patient has a white cell count of 22, hemoglobin of 12.4 and platelet count of 463. Rest of the electrolytes are all within normal limits. BUN 30 with a creatinine of 0.8. She remains n.p.o. on TPN. No other significant events overnight. She is calm and comfortable at this point. IV antibiotics in the form of Zosyn. On 06/23/2024, patient is being seen for a follow-up. The patient was weaned off the mechanical ventilator and the patient was extubated yesterday without any major difficulties. Over the afternoon, the patient started having increased abdominal pain. Based on that, the patient was given epidural and currently she is under adequate pain control with epidural at 9 cc an hour with Dilaudid and bupivacaine. OSCAR drain output is minimal and serosanguineous. NG output has been more than 1 L over the past 12 to 24 hours. The patient remains on TPN at rate of 87 cc an hour normal citrate of 75 cc an hour. She is currently extu bated on 3 L/min nasal cannula. The white cell count is 16.8 with hemoglobin 8.5 and a platelet count of 335. BUN is 25 with a creatinine of 0.7 and sodium levels at 140. On examination, she has no significant bowel sounds. Chest x- ray from yesterday was noted. There is some elevation of the right hemidiaphragm. Otherwise no other acute abnormalities noted. She was provided an incentive spirometer. Patient was seen on 06/24/24, patient remains on nasal cannula at 6 L, satting 94%, remains in the ICU, doing quite well. Relatively asymptomatic, tolerated the extubation well over the last couple of days. Patient is on TPN at 87 cc/h IV fluid at 75 cc/h her chest x-ray showed minimal basilar atelectasis specially at the right base, patient is doing well with incentive spirometry. And I plan to transfer the patient out of the ICU to the regular medical floor today WBC count is 13.5 hemoglobin 8.4 basic metabolic profile is normal renal profile is done The patient is seen today June 25, 2024 in follow-up on the regular medical floor. She was transferred out of the intensive care unit yesterday. She is awake and alert in no acute distress. She is maintaining O2 saturations in the 90s on 4 L/min per nasal cannula. She has normal staying at KVO. Nasogastric tube remains in place. She is working well with the incentive spirometer and pulling approximately 1500 mL. Her sputum culture was positive for Enterobacter cloacae complex and Serratia marcescens. Abdominal cultures positive for Nilda albicans and glabrata. Sodium 135. Potassium 3.3. Bicarb 27. BUN 17. Creatinine 0.58. Glucose 149. She remains on DuoNeb inhalations, Symbicort. Heparin for DVT prophylaxis. Antibiotics in the form of Zosyn and Eraxis. She is being nourished with TPN and lipids. The patient is seen today June 26, 2024 in follow-up on the regular medical floor. She is currently sitting up in a chair at the bedside. Awake and alert in no acute distress. She is maintaining good O2 saturations in the 90s on 4 L/min per nasal cannula. She is still having ongoing surgical site pain of the abdomen. Her abdominal dressing is dry and intact. OSCAR drain remains in place. She did have a bowel movement. Nasogastric tube remains in place. She remains NPO. Abdominal wound cultures were positive for Nilda. Sputum culture positive for Enterobacter cloacae complex, Serratia marcescens. Blood cultures revealing no growth. White count 12.9. Hemoglobin 8.4. Platelets 368. Sodium 135. Potassium 3.8. Bicarb 27. BUN 16. Creatinine 0.55. Glucose 243. Being nursed with TPN and lipids. Remains on Eraxis and Zosyn. Normal saline at 75 mL/h. The patient is seen today June 27, 2024 in follow-up on the regular medical floor. He is currently resting in bed. Awake and alert in no acute distress. She is maintaining O2 saturation in the 90s on 4 L/min per nasal cannula. She is continued on Symbicort, DuoNeb inhlations. Heparin for DVT prophylaxis. She remains on Zosyn. Continued on Eraxis. She remains nourished with TPN and lipids. Nasogastric tube to be discontinued. Sodium 138. Potassium 3.6. Bicarb 28. BUN 18. Creatinine 0.56. Glucose 224. AST 27. ALT 10. Alk phos 145. The patient is seen today June 28, 2024 in follow-up on the regular medical floor. She is awake and alert in no acute distress. Resting fairly comfortably in bed. She is maintaining O2 saturations in the 90s on 4 L/min per nasal cannula. She is afebrile. Hemodynamically stable. She remains on bronchodilators. Working well with the incentive spirometer. Heparin for DVT prophylaxis. She is tolerating a liquid diet to be advanced to regular. White count 13.2. Hemoglobin 7.6. Platelets 366. Sodium 137. Potassium 3.5. Bicarb 30. BUN 14. Creatinine 0.58. Glucose 199. The patient is seen today June 29, 2024 in follow-up on the regular medical floor. She is resting in bed. Awake and alert in no acute distress. She remains on oxygen at 3 L/min per nasal cannula. She is working well with the incentive spirometer. She has been up with assistance. She is continued on Symbicort, DuoNeb inhalations. Heparin for DVT prophylaxis. She has been advanced to a regular diet. White count 11.7. Hemoglobin 7.7. Platelets 384. Sodium 137. Potassium 3.4. Bicarb 29. BUN 14. Creatinine 0.6. Glucose 224. The patient is seen today June 30, 2024 in follow-up on the regular medical floor. She is awake and alert in no acute distress. Currently resting in bed. Denies any worsening shortness of breath, cough or congestion. She remains afebrile. Hemodynamically stable. She is continued on Symbicort, DuoNeb inhalations. Remains on Zosyn and Eraxis. Heparin for DVT prophylaxis. Tolerating a regular diet. The patient is seen today July 01, 2024 in follow-up on the regular medical floor. She is currently resting comfortably in bed. Awake and alert in no acute distress. She is maintaining good O2 saturations in the 90s on 2 L/min per nasal cannula. She denies any worsening shortness of breath, cough or congestion. Sodium 137. Potassium 3.8. Bicarb 25. BUN 15. Creatinine 0.78. Glucose 115. Abdominal wound VAC remains in place. OSCAR drain in place. She is continued on Zosyn and Eraxis. Heparin for DVT prophylaxis. Continued on Symbicort, DuoNeb inhalations. She is tolerating a diet. The patient is seen today July 02, 2024 in follow-up on the regular medical floor. She is awake and alert in no acute distress. Resting comfortably in bed. She denies any worsening shortness of breath, cough or congestion. She is actually maintaining good O2 saturation in the 90s on room air. Sodium 143. Potassium 3.7. Bicarb 21. BUN 8. Creatinine 0.7. Glucose 88. She is continued on DuoNeb inhalations, Symbicort. Sputum cultures positive for Enterobacter cloacae complex. Serratia marcescens. Antibiotics in the form of ertapenem. Remains on Eraxis as well. Objective - Vital Signs Vital signs: Vital Signs Temp 97.7 F 07/02/24 08:00 Pulse 78 07/02/24 08:00 Resp 17 07/02/24 08:00 BP 151/73 07/02/24 08:00 Pulse Ox 96 07/02/24 08:00 FiO2 50 06/22/24 09:03 Intake & Output 07/01/24 07/02/24 07/02/24 18:59 06:59 18:59 Output Total 5 Balance -5 Weight 89.3 kg Output: Drainage 5 Left Lower Abdomen 5 Other: Voiding Method Toilet Toilet # Voids 4 4 4 # Bowel Movements 2 - Exam GENERAL EXAM: Alert, 53-year-old female, resting in bed, on room, in no apparent distress. HEAD: Normocephalic. EYES: Normal reaction of pupils, equal size. NOSE: Clear with pink turbinates. THROAT: No erythema or exudates. NECK: No masses, no JVD. CHEST: No chest wall deformity. LUNGS: Equal air entry with no crackles, wheeze, rhonchi or dullness. CVS: S1 and S2 normal with no audible murmur, regular rhythm. ABDOMEN: Surgical dressing dry and intact SPINE: No scoliosis or deformity SKIN: No rashes CENTRAL NERVOUS SYSTEM: No focal deficits, tone is normal in all 4 extremities. EXTREMITIES: There is no peripheral edema. No clubbing, no cyanosis. Peripheral pulses are intact. - Labs CBC & Chem 7: 06/29/24 04:22 07/02/24 02:29 Labs: Abnormal Lab Results - Last 24 Hours (Table) 07/01/24 07/02/24 Range/Units 16:38 02:29 Chloride 111 H (96-109) mmol/L Carbon Dioxide 21.2 L (21.6-31.8) mmol/L BUN 7.7 L (9.0-27.0) mg/dL BUN/Creatinine Ratio 11.00 L (12.00-20.00) Ratio POC Glucose (mg/dL) 118 H (70-110) mg/dL Calcium 8.0 L (8.7-10.3) mg/dL Assessment and Plan Assessment: Acute on chronic hypoxemia. With postoperative atelectasis and underlying COPD Diverticular abscess/perforated diverticulitis and the patient has undergone open ileocecectomy on June 11 2024 Abdominal pain status post epidural pain control with bupivacaine and Dilaudid improved Coronary artery disease with bypass surgery COPD, maintained on a combination of Symbicort, Spiriva and albuterol rescue inhaler Hypertension Diabetes mellitus type 2 Plan: The patient was seen and evaluated Labs and medications reviewed Remains on bronchodilators, antibiotics She has been up ambulating in the hallway Stable and on room air Cleared for discharge from the pulmonary standpoint Antibiotics in the outpatient setting per ID service I have personally seen and examined the patient, performed the documentation and the assessment and plan as written. Number of minutes spent on the visit: 10.
--- NOTE | 2024-07-02 13:56 | P.PN ---
Subjective Progress Note Date: 07/02/24 CHIEF COMPLAINT: Colitis with intramural wall abscess HISTORY OF PRESENT ILLNESS: Patient is status post diagnostic laparoscopy converted to open with ileocecectomy on 06/11/24. She was taken to back to the OR on 06/21/2024 and is status post exploratory laparotomy, extensive lysis of adhesions, small bowel resection x 2 and proximal right colon resection for small bowel obstruction secondary to adhesions and inflammation. Patient's pain is controlled. She is tolerating diet. She is having bowel movements. Her cold sores have improved with the Valtrex. She had the OSCAR drain discontinued yesterday as well as the Prevena wound VAC dressing. She is planning on being discharged today. Patient cleared by pulmonary service for discharge PHYSICAL EXAM: VITAL SIGNS: Reviewed. GENERAL: no acute distress. ABDOMEN: Soft. Nondistended. Incision clean and intact. Minimal drainage noted on the bandage in the distal portion of the incision NEUROLOGIC: Alert and oriented. Cranial nerves II through XII grossly intact. ASSESSMENT: 1. Colitis with intramural wall abscess 2. Small bowel obstruction secondary to adhesions and inflammation 3. Moderate protein calorie malnutrition PLAN -Patient can be discharged from surgical standpoint -Discharge antibiotics per infectious disease. -DVT prophylaxis subcu heparin GI prophylaxis Protonix Physician Casino Operations Supervisor note has been reviewed by physician. Signing provider agrees with the documented findings, assessment, and plan of care. Attestation Patient seen and examined at bedside. States she is doing well and pain is well-controlled. Tolerating diet. Patient is stable from a surgical standpoint with follow-up outpatient. Marga Samuel DO Objective - Vital Signs Vital signs: Vital Signs Temp 97.7 F 07/02/24 08:00 Pulse 78 07/02/24 08:00 Resp 17 07/02/24 08:00 BP 151/73 07/02/24 08:00 Pulse Ox 96 07/02/24 08:00 FiO2 50 06/22/24 09:03 Intake & Output 07/01/24 07/02/24 07/02/24 18:59 06:59 18:59 Output Total 5 Balance -5 Weight 89.3 kg Output: Drainage 5 Left Lower Abdomen 5 Other: Voiding Method Toilet Toilet # Voids 4 4 4 # Bowel Movements 2 - Labs CBC & Chem 7: 06/29/24 04:22 07/02/24 02:29 Labs: Abnormal Lab Results - Last 24 Hours (Table) 07/01/24 07/02/24 Range/Units 16:38 02:29 Chloride 111 H (96-109) mmol/L Carbon Dioxide 21.2 L (21.6-31.8) mmol/L BUN 7.7 L (9.0-27.0) mg/dL BUN/Creatinine Ratio 11.00 L (12.00-20.00) Ratio POC Glucose (mg/dL) 118 H (70-110) mg/dL Calcium 8.0 L (8.7-10.3) mg/dL
--- NOTE | 2024-07-02 14:12 | P.PN ---
Subjective Progress Note Date: 07/02/24 Principal diagnosis: Reason for follow-up is colitis/intra-abdominal abscess Patient is a 53-year-old female who recently did have multiple admission to the hospital regarding right sided abdominal pain has been diagnosed with colitis with intramural abscess failing outpatient oral antibiotic therapy. Patient is status post diagnostic laparoscopic abdominal washout converted to open laparotomy with loop cecectomy and drain placement. Patient was taken back to the OR patient is status post exploratory laparotomy, extensive lysis of adhesions greater than 1/3 of the case, small bowel resection x 2, proximal right colon resection completed on 06/22/2024 afternoon operative report did not mention any perforation or abscess. On today's evaluation that is 07/02/2024, the patient continues to be afebrile, the patient is on room air and breathing comfortably, the Pt denies having any chest pain or cough, the patient abdominal pain has decreased in intensity no na usea vomiting has been tolerating her diet ready go home. Patient did have a creatinine of 0.7 no CBC was done today Objective - Vital Signs Vital signs: Vital Signs Temp 97.7 F 07/02/24 08:00 Pulse 78 07/02/24 08:00 Resp 17 07/02/24 08:00 BP 151/73 07/02/24 08:00 Pulse Ox 96 07/02/24 08:00 FiO2 50 06/22/24 09:03 Intake & Output 07/01/24 07/02/24 07/02/24 18:59 06:59 18:59 Output Total 5 Balance -5 Weight 89.3 kg Output: Drainage 5 Left Lower Abdomen 5 Other: Voiding Method Toilet Toilet # Voids 4 4 - Exam GENERAL DESCRIPTION: Middle-age female lying in bed in no distress RESPIRATORY SYSTEM: Unlabored breathing , decreased breath sounds at bases HEART: S1 S2 regular rate and rhythm , ABDOMEN: Soft , minimal tenderness EXTREMITIES: No edema feet - Labs CBC & Chem 7: 06/29/24 04:22 07/02/24 02:29 Labs: Abnormal Lab Results - Last 24 Hours (Table) 07/01/24 07/02/24 Range/Units 16:38 02:29 Chloride 111 H (96-109) mmol/L Carbon Dioxide 21.2 L (21.6-31.8) mmol/L BUN 7.7 L (9.0-27.0) mg/dL BUN/Creatinine Ratio 11.00 L (12.00-20.00) Ratio POC Glucose (mg/dL) 118 H (70-110) mg/dL Calcium 8.0 L (8.7-10.3) mg/dL Assessment and Plan (1) Colitis with abscess Current Visit: Yes Status: Acute Code(s): K52.9 - NONINFECTIVE GASTROENTERITIS AND COLITIS, UNSPECIFIED; K63.0 - ABSCESS OF INTESTINE SNOMED Code(s): 28972515 (2) Herpes labialis Current Visit: Yes Status: Acute Code(s): B00.1 - HERPESVIRAL VESICULAR DERMATITIS SNOMED Code(s): 7179138 Plan: 1patient with a multiple admission to the hospital has been diagnosed with a colitis with intramural abscess that has failed outpatient oral Ceftin and Flagyl therapy with repeat CT did shows persistent features of colitis around the cecum with intramural abscess and slow clinical response to the medical therapy patient is status post laparotomy with ileocecectomy and drain placement unfortunately no cultures were done 2-patient remains to be afebrile,, patient did have CT with evidence of ileus did not mention any perforation or colitis abdominal x-rays with extensive bowel gas 3-patient taken back to the OR in this patient who is status post exploratory laparotomy resection of the portion of the bowel and abdominal culture currently growing Nilda albicans as well as glabrata, sputum cultures growing Enterobacter and Serratia sensitive to Zosyn 4patient did have resolution of the fever white count is down to 11.7 as of 06/29/2024 no CBC was done today, 5-patient with herpes labialis patient has been started on Valtrex and did have clinical improvement 6with the patient going home antibiotic can be switched to Invanz 1 g daily to continue along with Eraxis 100 mg daily for 7 days prescription provided to the case manager specialist this morning Dictation was produced using [employer] dictation software. please excuse any grammatical, word or spelling errors. Time with Patient: Less than 30
[2024-07-02 15:11] VITALS: BP 134/80; PULSE 81; RESP 16; TEMP 98.7
--- NOTE | 2024-07-02 15:42 | P.DS ---
Providers Date of admission: 06/05/24 23:03 Discharge Diagnosis: Intramural wall abscess Right-sided colitis Ileus Acute on chronic hypoxic respiratory failure Vesicular facial lesions, likely herpes labialis Hypokalemia Type 2 diabetes Hypertension Hyperlipidemia COPD History of CABG and stents Anxiety Hospital Course: Patient is a 53-year-old female with diabetes, hypertension, COPD, CABG with multiple stents most recently in November 2018 maintained on aspirin and Plavix presents with complaints of worsening abdominal pain. She was discharged from the hospital 2 days ago on Ceftin and Flagyl for colitis. During that hospital course her CT abdomen/pelvis revealed right-sided colitis she was started on IV Flagyl and ciprofloxacin and her WBCs trended down (11.5 to 8.21 on discharge). She endorsed improved pain throughout her stay and on the day of discharge she was asking to go home after she successfully ate lunch. During her stay her C. difficile PCR was negative. Endorses one episode of bloody emesis yesterday, and approximately 6 other episodes of non-bloody emesis since discharge but has had no vomiting since admission last night. Endorses compliance with medications since discharge. States pain is 6/10 right now but was 100/10 just before coming to ED. Denies current chest pain, shortness of breath, nausea, vomiting, hematochezia. Endorses right lower quadrant pain. CT abdomen/pelvis revealed inflammatory changes involving the cecum with adjacent 2.3 cm in tramural wall abscess and reactive small bowel ileus. WBCs 12.3, hemoglobin 13.4, platelets 580. Urinalysis unremarkable. Afebrile, tachycardic since improved, hypertensive with systolic [id number]. Patient Admitted to Internal Medicine Service. 06/09. Patient is evaluated in follow up today. She is resting in bed she is holding her abdomen and reporting pain to the RLQ. She is requesting IV pain medication. Noted that follow up abdominal pelvis CT done today reveals similar findings with abnormally thickened wall of the colon adjacent to the ileocecal valve region. Similar surrounding mild inflammatory fat stranding consider focal colitis. Suspected intramural abscess here is smaller at 1.8 cm vs. 2.5 cm previously. Normal appendix. New prominent fluid within the stomach. Fluid-fille d small bowel loops are more numerous now. Consider worsening ileus. Trace pelvic free fluid redemonstrated. No free air. Potassium 5.3. today. 06/10. Patient seen and examined at bedside. Patient still with significant amount of pain on the right side of the abdomen as well as epigastric area. She is NPO. She endorses nausea. She denies fever, chest pain, shortness of breath. Infectious disease consulted. Labs unremarkable. 06/11. Patient seen and examined. Continues to complain of abdominal pain. Denies any nausea or vomiting, passing gas. 06/12. Patient seen and examined at bedside lying comfortably. Continues to complain of abdominal pain. Excited but nervous for surgery. Denies any nausea, vomiting, fever, chills. Endorses passing gas and 3 episodes of diarrhea today. Patient going to the operating room today. Midline was placed this morning. 06/13. Patient seen lying in bed. She is postop day 1 status post diagnostic laparoscopic abdominal washout converted to open with ileocecectomy with drain placement. She is complaining of abdominal pain and a lot of pressure in epigastric region. She has not passed flatus. 06/14. Patient seen and examined laying in bed. She is postop day 2 status post diagnostic laparoscopic abdominal washout converted to open with ileocecectomy with drain placement. She endorses improved abdominal pain with pressure in the epigastric region. She has not passed flatus. OSCAR drain is serosanguineous fluid. Potassium 2.9. TPN has been started. 06/15. Patient seen laying in bed. She is postop day 3 status post diagnostic laparoscopic abdominal washout converted to open with ileocecectomy with drain placement. She endorses improved abdominal pain and increased ambulation. She has not passed flatus. She is ambulating well around the unit. OSCAR drain is serosanguineous fluid. Potassium is 3.2. Endorses nausea and relief with Zofran. 06/16. Patient seen and examined. Currently on TPN, states she feels better. Denies any nausea or vomiting, complaining of on and off abdominal pain. 06/17. Patient seen laying in bed. Postop day 5. Endorses epigastric abdominal pain. Ambulating well around the unit. Not passing flatus. 06/18. Patient seen and examined. Patient had 1 episode of emesis this morning, states she feels much better after that. Patient not passing gas. No bowel movement yet. 06/19. Patient seen and examined at bedside. No flatus, no bowel movement. Had an NG tube placed overnight. 06/20. Patient seen at bedside. Passing flatus, had a bowel movement yesterday. Still with NG tube with 900 mL output. Multiple episodes of vomiting yesterday. Patient states she feels less distended. 06/21. Patient seen and examined lying in bed. Endorses worsened abdominal pa in. Endorses mild chest pain relieved with sitting up, worsened laying flat. 06/22. Patient transferred to ICU yesterday status post intubation due to acute on chronic hypoxic respiratory failure. Labs: WBCs 22.1, hemoglobin 12.4, platelets 463, sodium 138, potassium 4.8, CO2 24, creatinine 0.83. Patient underwent exploratory laparotomy yesterday. 06/23. Patient is evaluated today in the intensive care unit awake alert and oriented. Postoperative day #2 exploratory laparotomy and bowel resection. Patient received an epidural yesterday; states the pain level is manageable today and significantly improved. Patient with NG tube in place and per nursing staff was sucking water of the oral swabs and had increased gastric output because of it. Those were changed out to the lemon glycerin swabs. White blood cell count 16.8, hgb 8.9, Na -140, BUN 25, creatinine 0.72. 06/24. Patient seen in the ICU. She is postop day 3 of exploratory laparotomy and bowel resection and status post epidural placement day 3. She states her pain is better. She endorses mild abdominal pain due to surgery. She is still with an NG tube with 500 mL output and left OSCAR drain with minimal output. Labs: WBCs 13.5, hemoglobin 8.4, sodium 138, potassium 3.3. States she has had 2 bowel movements. Endorses mild nausea, no vomiting. Abdominal wound culture growing shyam and sputum culture growing gram negative bacilli preliminarily. 06/25/2024 Patient is evaluated on the medical floor. Patient is postoperative day #4 exploratory laporotomy and bowel resection. Epidural remains in place. Patient is up to the bedside commode today. Weeks catheter has been removed. NG tube remains in place. Sputum culture finalized showing enterobacter cloacae complex, serratia marcescens, shyam from the abdominal cultures. ID following remains on IV eraxis and IV zosyn. Continues on TPN and patient remains NPO. Sodium today 135, potassium 3.3, magnesium 1.9. 06/26/2024 Patient seen at bedside. No significant overnight events. Patient is postoperative day 5 exploratory laporotomy and bowel resection. Patient has had first formed BM. 06/27/2024 Patient seen at bedside. No significant overnight events. Patient reports pain is about the same as yesterday, but tolerable. No BM since yesterday. Surgery planning on removing NG tube if patient does not significantly fill NG tube container. If NG tube is able to be removed, will start on clears. 06/29/2024 Patient seen at bedside. No significant overnight events. Patient has progressed her diet from clears to regular diet now. TPN has been discontinued. 07/01/2024 Patient seen at bedside and no significant overnight events. Patient continues to tolerate regular diet well. Patient is having bowel movements. Patient reports she is able to get up walk around and go to the bathroom on her own volition. Patient found to have some vesicular lesions perioral and in the naris bilaterally. 07/02/2024 Patient seen at bedside. No significant overnight events. She is being discharged with Lopressor 12.5 mg PO BID, Ertapenem 1 g IVPB, [place] [id number] PO every 6 hours PRN for 3 days, Eraxis 100 mg IVPB daily. Patient is to follow-up with PCP, [facility], infectious disease. Will also follow up with infusion services as needed. She is being discharged home. Vitals Signs Reviewed. Physical Examination: General: non toxic, no distress, appears at stated age, normal weight Derm: no unusual rashes/lesions, warm Head: atraumatic, normocephalic, symmetric ENT: Nose and ears atraumatic Neck: No cervical lymphadenopathy, trachea midline, supple Mouth: no lip lesion, mucus membranes moist Cardiovascular: S1S2 reg, no murmur, positive dorsalis pedis pulse bilateral, no edema Lungs: Decreased air entry bilaterally, no rhonchi, no rales, no accessory muscle use Abdominal: soft, nontender to palpation, no guarding. Surgical incision seen Neuro: CN II-XI grossly intact, no gross focal neuro deficits Psych: Alert, oriented, appropriate affect A total [id number] of time were spent preparing this complex discharge summary. Patient was discharge on October 2023 13:48. Attestation I have seen and examined this patient with my resident , discussed the same with the resident/OLIVIA, and agree with the dictator's assessment and plan as written Dr. Isra lundy Expected date of discharge: 07/02/24 Attending physician: Dev Alexander MD Consults: 06/05/24 23:00 Consult Physician Urgent Consulting Provider: Marga Samuel Consult Reason/Comments: Colitis, intramural wall abscess, reactive small bowel ileus Do you want consulting provider notified?: Yes, Notify in am 06/10/24 11:27 Consult Physician Routine Consulting Provider: Lupillo Meier Consult Reason/Comments: colitis with abscess Do you want consulting provider notified?: Yes 06/20/24 20:54 Consult Physician Routine Consulting Provider: Rabia Dos Santos Consult Reason/Comments: SOB and hypoxia Do you want consulting provider notified?: Yes, Notify in am 06/22/24 12:30 Consult to Anesthesia Routine Consulting Provider: Anesthesia,Services Consult Reason/Comments: epidural placement Primary care physician: Kemar Jin MD Patient Condition at Discharge: Fair Plan - Discharge Summary Discharge Rx Participant: Yes New Discharge Prescriptions: New Metoprolol Tartrate [Lopressor] 12.5 mg PO BID #60 tab Ertapenem [INVanz] 1 gm IVPB Q24H #7 each HYDROcodone/APAP 10-325MG [[place] 10-325] 1 each PO Q6HR PRN 3 Days #12 tab PRN Reason: Pain Scale 6 To 10 Anidulafungin [Eraxis] 100 mg IVPB DAILY #7 each Continue Atorvastatin [Lipitor] 80 mg PO DAILY Ranolazine [Ranexa] 1,000 mg PO BID metFORMIN HCL 1,000 mg PO BID Nitroglycerin Sl Tabs [Nitrostat] 0.4 mg SL Q5M PRN PRN Reason: Chest Pain Aspirin EC [Ecotrin Low Dose] 81 mg PO DAILY Albuterol Inhaler [Ventolin Hfa Inhaler] 2 puff INHALATION RT-QID PRN PRN Reason: Shortness Of Breath Isosorbide Mononitrate ER [Imdur] 30 mg PO DAILY Insulin Lispro [humaLOG Kwikpen] See Protocol SQ AC-TID Dapagliflozin Propanediol [Farxiga] 5 mg PO DAILY Dulaglutide [Trulicity] 3 mg SQ WE Ipratropium-Albuterol Nebulize [Duoneb 0.5 mg-3 mg/3 ml Soln] 3 ml INHALATION RT-TID Spiriva Respimat 1.25mcg/Actuation Mist 2 puff INHALATION RT-DAILY Ondansetron Odt [Zofran ODT] 4 mg PO Q8HR PRN PRN Reason: Nausea lisinopriL [Zestril] 10 mg PO DAILY Cholestyramine (with Sugar) [Questran Packet] 4 gm PO BID #60 packet rOPINIRole HCL [Requip] 1 mg PO HS amLODIPine [Norvasc] 10 mg PO DAILY Omeprazole 40 mg PO BID Budesonide/Formoterol Fumarate [Symbicort 160-4.5 Mcg Inhaler] 2 puff INHA LATION RT-BID Pregabalin [Lyrica] 150 mg PO TID Clopidogrel [Plavix] 75 mg PO DAILY ALPRAZolam [Xanax] 0.5 mg PO BID PRN PRN Reason: Anxiety Mag Hydrox/Al Hydrox/Simeth [Maalox] 30 ml PO QID PRN 2 Days #180 ml PRN Reason: Heartburn Albuterol Nebulized [Ventolin Nebulized] 2.5 mg INHALATION RT-Q6H PRN PRN Reason: Shortness Of Breath Discontinued cefUROXime axetiL [Ceftin] 500 mg PO BID 6 Days #12 tab metroNIDAZOLE [Flagyl] 500 mg PO TID 6 Days #18 tab HYDROcodone/APAP 5-325MG [[place] 5-325] 1 tab PO BID PRN 3 Days #6 tab PRN Reason: Pain Metoprolol Tartrate [Lopressor] 25 mg PO BID #60 tab Discharge Medication List Atorvastatin [Lipitor] 80 mg PO DAILY 07/08/20 [History] Ranolazine [Ranexa] 1,000 mg PO BID 11/13/21 [History] Albuterol Inhaler [Ventolin Hfa Inhaler] 2 puff INHALATION RT-QID PRN 03/27/23 [History] Aspirin EC [Ecotrin Low Dose] 81 mg PO DAILY 03/27/23 [History] Budesonide/Formoterol Fumarate [Symbicort 160-4.5 Mcg Inhaler] 2 puff INHALATION RT-BID 03/27/23 [History] Clopidogrel [Plavix] 75 mg PO DAILY 03/27/23 [History] Nitroglycerin Sl Tabs [Nitrostat] 0.4 mg SL Q5M PRN 03/27/23 [History] Omeprazole 40 mg PO BID 03/27/23 [History] Pregabalin [Lyrica] 150 mg PO TID 03/27/23 [History] amLODIPine [Norvasc] 10 mg PO DAILY 03/27/23 [History] metFORMIN HCL 1,000 mg PO BID 03/27/23 [History] rOPINIRole HCL [Requip] 1 mg PO HS 03/27/23 [History] ALPRAZolam [Xanax] 0.5 mg PO BID PRN 06/22/23 [History] Dapagliflozin Propanediol [Farxiga] 5 mg PO DAILY 03/16/24 [History] Dulaglutide [Trulicity] 3 mg SQ WE 03/16/24 [History] Insulin Lispro [humaLOG Kwikpen] See Protocol SQ AC-TID 03/16/24 [History] Ipratropium-Albuterol Nebulize [Duoneb 0.5 mg-3 mg/3 ml Soln] 3 ml INHALATION RT-TID 03/16/24 [History] Isosorbide Mononitrate ER [Imdur] 30 mg PO DAILY 03/16/24 [History] Mag Hydrox/Al Hydrox/Simeth [Maalox] 30 ml PO QID PRN 2 Days #180 ml 05/22/24 [Rx] Spiriva Respimat 1.25mcg/Actuation Mist 2 puff INHALATION RT-DAILY 05/24/24 [History] Albuterol Nebulized [Ventolin Nebulized] 2.5 mg INHALATION RT-Q6H PRN 05/31/24 [History] Ondansetron Odt [Zofran ODT] 4 mg PO Q8HR PRN 05/31/24 [History] lisinopriL [Zestril] 10 mg PO DAILY 05/31/24 [History] Cholestyramine (with Sugar) [Questran Packet] 4 gm PO BID #60 packet 06/03/24 [Rx] Anidulafungin [Eraxis] 100 mg IVPB DAILY #7 each 07/02/24 [Rx] Ertapenem [INVanz] 1 gm IVPB Q24H #7 each 07/02/24 [Rx] HYDROcodone/APAP 10-325MG [[place] 10-325] 1 each PO Q6HR PRN 3 Days #12 tab 07/02/24 [Rx] Metoprolol Tartrate [Lopressor] 12.5 mg PO BID #60 tab 07/02/24 [Rx] Follow up Appointment(s)/Referral(s): Adrian Dubois DO [Doctor of Osteopathic Medicine] - 1 Week Kemar Jin MD [Primary Care Provider] - 1-2 days [facility], [NON-STAFF] - As Needed Infusion Services,[facility] [REFERRING] - As Needed (Antibiotic will be delivered to your home between 6-9p today.) Lupillo Meier MD [STAFF PHYSICIAN] - 1 Week Discharge Disposition: HOME SELF-CARE
[2024-07-02 16:33] LABS: Glucose,Whole Blood 131 mg/dL (70-110)
--- NOTE | 2024-07-06 21:41 | CDI ---
Documentation Clarification Form Date: 07/06/2024 09:20:19 PM From: Nina Brown Phone: Admit Date: 06/05/2024 11:03:00 PM Patient Name: Griselda Mcadams Visit Number: [id number] Discharge Date: 07/02/2024 05:14:00 PM ATTENTION: The Clinical Documentation Specialists (CDI) and [facility] Coding Staff appreciate your assistance in clarifying documentation. Please respond to the clarification below the line at the bottom and electronically sign. The CDI & [facility] Coding staff will review the response and follow-up if needed. Please note: Queries are made part of the Legal Health Record. If you have any questions, please contact the author of this message via ITS. Doctor/Provider: Rabia Dos Santos Your patient is receiving the following: Insulin. Please clarify what condition/diagnosis is being treated. History/Risk Factors: 53yo F, SBO w adhesions and abscess, ileus, asthma, CAD, COPD, NIDDMII, GERD/Reflux, HTN, [place], OA Clinical indicators: POC Glucose: 06/13 125-128 06/19 127-169 06/22 [id number] /[id number] Treatment: 6u Novolog; 15u Detemir (Levemir) What diagnosis are you treating with Novolog & Levemir? [ ] NIDMII no complications [ x] NIDMII with hyperglycemia [ ] Due to drug (please specify): [ x] Due to other (please specify):____ileus [ ] Other, please specify [ ] Unable to determine (Template Last Reviewed: October 2020) MTDD
== END 2024-07-02 17:14 | disposition home or self-care (01) | DRG 230 ==
LOC: EC 18:11 → 4SSUR 23:03 → 2SICU 06-21 17:02 → 4SSUR 06-24 20:31
PROVIDERS: ADMIT Internal Medicine; ATTEND Internal Medicine
PROC: 02HV33Z Insertion of Infusion Device into Superior Vena Cava, Percutaneous Approach (ICD-10-PCS; 2024-06-13)
PROC: 3E0436Z Introduction of Nutritional Substance into Central Vein, Percutaneous Approach (ICD-10-PCS; 2024-06-13)
PROC: 0D9670Z Drainage of Stomach with Drainage Device, Via Natural or Artificial Opening (ICD-10-PCS; 2024-06-19)
PROC: 0DTH0ZZ Resection of Cecum, Open Approach (ICD-10-PCS; principal; 2024-06-22)
PROC: 0DJ04ZZ Inspection of Upper Intestinal Tract, Percutaneous Endoscopic Approach (ICD-10-PCS; principal; 2024-06-22)
PROC: 0DBF0ZZ Excision of Right Large Intestine, Open Approach (ICD-10-PCS; principal; 2024-06-22)
PROC: 0DNW0ZZ Release Peritoneum, Open Approach (ICD-10-PCS; principal; 2024-06-22)
PROC: 0DB80ZZ Excision of Small Intestine, Open Approach (ICD-10-PCS; principal; 2024-06-22)
PROC: 00HU33Z Insertion of Infusion Device into Spinal Canal, Percutaneous Approach (ICD-10-PCS; 2024-06-22)
PROC: 3E0R3BZ Introduction of Anesthetic Agent into Spinal Canal, Percutaneous Approach (ICD-10-PCS; 2024-06-22)
PROC: 3E033XZ Introduction of Vasopressor into Peripheral Vein, Percutaneous Approach (ICD-10-PCS; 2024-06-22)
DX: K56.51 Intestinal adhesions [bands], with partial obstruction (principal); J96.21 Acute and chronic respiratory failure with hypoxia; K65.1 Peritoneal abscess; B37.89 Other sites of candidiasis; E44.0 Moderate protein-calorie malnutrition; K57.20 Diverticulitis of large intestine with perforation and abscess without bleeding; K56.7 Ileus, unspecified; Z79.4 Long term (current) use of insulin; E11.65 Type 2 diabetes mellitus with hyperglycemia; D62 Acute posthemorrhagic anemia; I95.9 Hypotension, unspecified; I10 Essential (primary) hypertension; J44.89 Other specified chronic obstructive pulmonary disease; Z68.32 Body mass index [BMI] 32.0-32.9, adult; K52.9 Noninfective gastroenteritis and colitis, unspecified; R04.0 Epistaxis; I25.10 Atherosclerotic heart disease of native coronary artery without angina pectoris; F17.210 Nicotine dependence, cigarettes, uncomplicated; G89.18 Other acute postprocedural pain; E78.5 Hyperlipidemia, unspecified; E87.6 Hypokalemia; B96.89 Other specified bacterial agents as the cause of diseases classified elsewhere; Z53.31 Laparoscopic surgical procedure converted to open procedure; Z79.02 Long term (current) use of antithrombotics/antiplatelets; Z79.82 Long term (current) use of aspirin; Z79.51 Long term (current) use of inhaled steroids; Z79.899 Other long term (current) drug therapy; Z79.84 Long term (current) use of oral hypoglycemic drugs; Z79.85 Long-term (current) use of injectable non-insulin antidiabetic drugs; I25.2 Old myocardial infarction; Z95.1 Presence of aortocoronary bypass graft; Z95.5 Presence of coronary angioplasty implant and graft; Z56.0 Unemployment, unspecified
CPT/HCPCS: 36410; 36415; 36573; 36600; 71045; 74018; 74019; 74177; 76937; 80048; 80053; 81001; 82040; 82150; 82330; 82805; 83605; 83690; 83735; 83880; 84100; 84132; 84145; 84478; 84484; 85025; 85379; 85610; 85730; 86850; 86900; 86901; 87040; 87070; 87075; 87077; 87186; 87205; 88108; 88305; 88307; 94002; 94003; 94640; 94760; 96361; 96365; 96375; 99285

== ENCOUNTER 2024-07-04 21:53 | Inpatient (IN) | payer OTHER ==
--- NOTE | 2024-07-04 21:59 | ED ---
Nausea/Vomiting/Diarrhea HPI - General Stated complaint: NV Time Seen by Provider: 07/04/24 21:58 Source: RN notes reviewed, old records reviewed Limitations: no limitations - History of Present Illness Initial comments: This is a 53-year-old female to the ER for nausea vomiting persistent nausea vomiting here in the emergency department patient did recently have gastric surgery with recent vomiting abdominal pain and vomiting of blood MD complaint: nausea, vomiting, diarrhea, abdominal pain -: days(s) Associated Abdominal Pain: Yes Location: diffuse, periumbilical Radiation: none Severity: moderate Severity scale (1-10): 4 Quality: aching, sharp Consistency: intermittent Improves with: none Worsens with: none Associated Symptoms: loss of appetite, malaise, nausea/vomiting - Related Data Home Medications Medication Instructions Recorded Confirmed Atorvastatin [Lipitor] 80 mg PO DAILY 07/08/20 07/05/24 Ranolazine [Ranexa] 1,000 mg PO BID 11/13/21 07/05/24 Albuterol Inhaler [Ventolin Hfa 2 puff INHALATION RT-QID PRN 03/27/23 07/05/24 Inhaler] Aspirin EC [Ecotrin Low Dose] 81 mg PO DAILY 03/27/23 07/05/24 Budesonide/Formoterol Fumarate 2 puff INHALATION RT-BID 03/27/23 07/05/24 [Symbicort 160-4.5 Mcg Inhaler] Clopidogrel [Plavix] 75 mg PO DAILY 03/27/23 07/05/24 Nitroglycerin Sl Tabs [Nitrostat] 0.4 mg SL Q5M PRN 03/27/23 07/05/24 Omeprazole 40 mg PO BID 03/27/23 07/05/24 Pregabalin [Lyrica] 150 mg PO TID 03/27/23 07/05/24 amLODIPine [Norvasc] 10 mg PO DAILY 03/27/23 07/05/24 metFORMIN HCL 1,000 mg PO BID 03/27/23 07/05/24 rOPINIRole HCL [Requip] 1 mg PO HS 03/27/23 07/05/24 ALPRAZolam [Xanax] 0.5 mg PO BID PRN 06/22/23 07/05/24 Dapagliflozin Propanediol [Farxiga] 5 mg PO DAILY 03/16/24 07/05/24 Dulaglutide [Trulicity] 3 mg SQ WE 03/16/24 07/05/24 Insulin Lispro [humaLOG Kwikpen] See Protocol SQ AC-TID 03/16/24 07/05/24 Ipratropium-Albuterol Nebulize 3 ml INHALATION RT-TID 03/16/24 07/05/24 [Duoneb 0.5 mg-3 mg/3 ml Soln] Isosorbide Mononitrate ER [Imdur] 30 mg PO DAILY 03/16/24 07/05/24 Spiriva Respimat 1.25mcg/Actuation 2 puff INHALATION RT-DAILY 05/24/24 07/05/24 Mist Albuterol Nebulized [Ventolin 2.5 mg INHALATION RT-Q6H PRN 05/31/24 07/05/24 Nebulized] Ondansetron Odt [Zofran ODT] 4 mg PO Q8HR PRN 05/31/24 07/05/24 lisinopriL [Zestril] 10 mg PO DAILY 05/31/24 07/05/24 HYDROcodone/APAP 10-325MG [[place] 1 tab PO Q6HR PRN 07/05/24 07/05/24 10-325] Previous Rx's Medication Instructions Recorded Mag Hydrox/Al Hydrox/Simeth 30 ml PO QID PRN 2 Days #180 ml 05/22/24 [Maalox] Cholestyramine (with Sugar) 4 gm PO BID #60 packet 06/03/24 [Questran Packet] Anidulafungin [Eraxis] 100 mg IVPB DAILY #7 each 07/02/24 Ertapenem [INVanz] 1 gm IVPB Q24H #7 each 07/02/24 Metoprolol Tartrate [Lopressor] 12.5 mg PO BID #60 tab 07/02/24 Allergies Allergy/AdvReac Type Severity Reaction Status Date / Time No Known Allergies Allergy Verified 07/05/24 11:05 Review of Systems ROS Statement: Those systems with pertinent positive or pertinent negative responses have been documented in the HPI. ROS Other: All systems not noted in ROS Statement are negative. Past Medical History Past Medical History: Asthma, Coronary Artery Disease (CAD), COPD, Diabetes Mellitus, GERD/Reflux, Hypertension, Myocardial Infarction (PR), Osteoarthritis (OA) Additional Past Medical History / Comment(s): DDD, scoliosis Last Myocardial Infarction Date:: 2011 History of Any Multi-Drug Resistant Organisms: None Reported Past Surgical History: Coronary Bypass/CABG, Heart Catheterization With Stent Additional Past Surgical History / Comment(s): seven stents Past Anesthesia/Blood Transfusion Reactions: No Reported Reaction Date of Last Stent Placement:: 11/2018 Past Psychological History: Anxiety, Bipolar Smoking Status: Current every day smoker Past Alcohol Use History: None Reported Additional Past Alcohol Use History / Comment(s): 1 ppd Past Drug Use History: Marijuana - Past Family History Mother Family Medical History: Cancer Additional Family Medical History / Comment(s): Ovarian cancer Father Family Medical History: Congestive Heart Failure (CHF) Fmily Family Medical History: No Reported History General Exam General appearance: alert, in no apparent distress, anxious Head exam: Present: atraumatic, normocephalic, normal inspection Eye exam: Present: normal appearance, PERRL, EOMI. Absent: scleral icterus, conjunctival injection, periorbital swelling ENT exam: Present: normal exam, mucous membranes moist Neck exam: Present: normal inspection. Absent: tenderness, meningismus, lymphadenopathy Respiratory exam: Present: normal lung sounds bilaterally. Absent: respiratory distress, wheezes, rales, rhonchi, stridor Cardiovascular Exam: Present: regular rate, normal rhythm, normal heart sounds. Absent: systolic murmur, diastolic murmur, rubs, gallop, clicks GI/Abdominal exam: Present: soft, normal bowel sounds. Absent: distended, tenderness, guarding, rebound, rigid Extremities exam: Present: normal inspection, full ROM, normal capillary refill. Absent: tenderness, pedal edema, joint swelling, calf tenderness Back exam: Present: normal inspection Neurological exam: Present: alert, oriented X3, CN II-XII intact Psychiatric exam: Present: normal affect, normal mood Skin exam: Present: warm, dry, intact, normal color. Absent: rash Course Vital Signs 07/04/24 07/05/24 07/05/24 22:03 01:11 03:20 Temperature 98.3 F Pulse Rate 94 85 Respiratory 20 18 18 Rate Blood Pressure 134/98 112/56 116/76 O2 Sat by Pulse 95 Oximetry - Reevaluation(s) Reevaluation #1: 07/04/24 23:15 Medical records reviewed Reevaluation #2: Symptoms unchanged Reevaluation #3: Patient informed of results and questions answered Reevaluation #4: Was pt. sent in by a medical professional or institution (VICENTE Mckenna, STOCK GRADER, urgent care, hospital, or senior living...) When possible be specific @ -no Did you speak to anyone other than the patient for history (EMS, parent, family, police, friend...)? What history was obtained from this source @ -no Did you review nursing and triage notes (agree or disagree)? Why? @ -agree Are old charts reviewed (outside hosp., previous admission, EMS record, old EKG, old radiological studies, urgent care reports/EKG's, senior living records)? Report findings @ -yes Differential Diagnosis (chest pain, altered mental status, abdominal pain women, abdominal pain men, vaginal bleeding, weakness, fever, dyspnea, syncope, headache, dizziness, GI bleed, back pain, seizure, CVA, palpatations, mental health, musculoskeletal)? @ -prior EKG interpreted by me (3pts min.). @ -yes X-rays interpreted by me (1pt min.). @ -no CT interpreted by me (1pt min.). @ -yes negative for acute disease U/S interpreted by me (1pt. min.). @ -yes negative for acute disease What testing was considered but not performed or refused? (CT, X-rays, U/S, labs)? Why? @ -none What meds were considered but not given or refused? Why? @ -none Did you discuss the management of the patient with other professionals (professionals i.e. VICENTE Mckenna, STOCK GRADER, lab, RT, psych nurse, secondary social studies teacher, vp account director, t eacher, optics technical officer, caseworker intake)? Give summary @ -no Was smoking cessation discussed for >3mins.? @ -no Was critical care preformed (if so, how long)? @ -no Were there social determinants of health that impacted care today? How? (Homelessness, low income, unemployed, alcoholism, drug addiction, transportation, low edu. Level, literacy, decrease access to med. care, penitentiary, rehab)? @ -none Was there de-escalation of care discussed even if they declined (Discuss DNR or withdrawal of care, Hospice)? DNR status @ -no What co-morbidities impacted this encounter? (DM, HTN, Smoking, COPD, CAD, Cancer, CVA, ARF, Chemo, Hep., AIDS, mental health diagnosis, sleep apnea, morbid obesity)? @ -none Was patient admitted / discharged? Hospital course, mention meds given and route, prescriptions, significant lab abnormalities, going to OR and other pertinent info. @ - 53 female will be admitted for postoperative abdominal pain and nausea vomiting. No acute findings or changes found in the emergency department, admit for symptom control Admitted Undiagnosed new problem with uncertain prognosis? @ -no Drug Therapy requiring intensive monitoring for toxicity (Heparin, Nitro, Insulin, Cardizem)? @ -no Were any procedures done? @ -no Diagnosis/symptom? @ -Operative pain nausea vomiting Acute, or Chronic, or Acute on Chronic? @ -Acute Uncomplicated (without systemic symptoms) or Complicated (systemic symptoms)? @ -Complicated Side effects of treatment? @ -no Exacerbation, Progression, or Severe Exacerbation? @ -exacerbation Poses a threat to life or bodily function? How? (Chest pain, USA, PR, pneumonia, PE, COPD, DKA, ARF, appy, cholecystitis, CVA, Diverticulitis, Homicidal, Suicidal, threat to staff... and all critical care pts) @ -yes preoperative pain Medical Decision Making - Medical Decision Making 53 female will be admitted for postoperative abdominal pain and nausea vomiting. No acute findings or changes found in the emergency department, admit for symptom control - Lab Data Result diagrams: 07/06/24 03:46 07/06/24 03:46 Lab Results 07/04/24 07/04/24 07/04/24 Range/Units 22:06 22:06 22:06 WBC 8.5 (3.8-10.6) k/uL RBC 3.18 L (3.80-5.40) m/uL Hgb 8.8 L (11.4-16.0) gm/dL Hct 29.5 L (34.0-46.0) % MCV 92.7 (80.0-100.0) fL MCH 27.7 (25.0-35.0) pg MCHC 29.8 L (31.0-37.0) g/dL RDW 21.0 H (11.5-15.5) % Plt Count 582 H (150-450) k/uL MPV 8.8 Neutrophils % 63 % Lymphocytes % 19 % Monocytes % 5 % Eosinophils % 9 % Basophils % 0 % Neutrophils # 5.4 (1.3-7.7) k/uL Lymphocytes # 1.6 (1.0-4.8) k/uL Monocytes # 0.4 (0-1.0) k/uL Eosinophils # 0.8 H (0-0.7) k/uL Basophils # 0.0 (0-0.2) k/uL Hypochromasia Marked Anisocytosis Moderate Macrocytosis Slight Sodium 139 (137-145) mmol/L Potassium 3.1 L (3.5-5.1) mmol/L Chloride 109 H (98-107) mmol/L Carbon Dioxide 24 (22-30) mmol/L Anion Gap 6 mmol/L BUN 5 L (7-17) mg/dL Creatinine 0.53 (0.52-1.04) mg/dL Est GFR (CKD-EPI)AfAm >90 (>60 ml/min/1.73 sqM) Est GFR (CKD-EPI)NonAf >90 (>60 ml/min/1.73 sqM) Glucose 123 H (74-99) mg/dL Plasma Lactic Acid Sarthak 1.0 (0.7-2.0) mmol/L Calcium 9.0 (8.4-10.2) mg/dL Total Bilirubin 0.7 (0.2-1.3) mg/dL AST 157 H (14-36) U/L ALT 94 H (4-34) U/L Alkaline Phosphatase 395 H (38-126) U/L Total Protein 5.8 L (6.3-8.2) g/dL Albumin 3.2 L (3.5-5.0) g/dL Amylase 39 (30-110) U/L Lipase 25 (23-300) U/L - Radiology Data Radiology results: report reviewed (CT abdomen pelvis no acute changes ultrasound gallbladder negative for acute disease), image reviewed Disposition Clinical Impression: Abdominal pain, Nausea & vomiting, Postoperative pain, Weakness, Dehydration Disposition: ADMITTED IP TO THIS [facility] Condition: Fair Is patient prescribed a controlled substance at d/c from ED?: No Time of Disposition: 02:00
[2024-07-04] MEDS: ONDANSETRON 4 MG/2 ML VIAL IVP STA (22:12)
[2024-07-04] MEDS: PANTOPRAZOLE 40 MG/10 ML VIAL IVP STA (22:12)
[2024-07-04] MEDS: SODIUM CHLORIDE 0.9% 500 ML 500 ML IV STA (22:12)
[2024-07-04] MEDS: SODIUM CHLORIDE 0.9% 1,000 ML IV STA ×2 (22:12)
[2024-07-04 22:29] LABS: Anisocytosis Moderate; Basophils % (A) 0 %; Eosinophils # (A) 0.8 k/uL (0-0.7); Eosinophils % (A) 9 %; HCT 29.5 % (34.0-46.0); HGB 8.8 gm/dL (11.4-16.0); Hypochromasia Marked; Lymphocytes # (A) 1.6 k/uL (1.0-4.8); Lymphocytes % (A) 19 %; MCH 27.7 pg (25.0-35.0); MCHC 29.8 g/dL (31.0-37.0); MCV 92.7 fL (80.0-100.0); Macrocytosis Slight; Mean Platelet Volume 8.8; Monocytes # (A) 0.4 k/uL (0-1.0); Monocytes % (A) 5 %; Neutrophils # (A) 5.4 k/uL (1.3-7.7); Neutrophils % (A) 63 %; Platelet Count 582 k/uL (150-450); RBC 3.18 m/uL (3.80-5.40); WBC 8.5 k/uL (3.8-10.6)
[2024-07-04 22:39] LABS: ALT 94 U/L (4-34); AST 157 U/L (14-36); African American GFR (CKD) >90 (>60 ml/min/1.73 sqM); Albumin 3.2 g/dL (3.5-5.0); Alkaline Phosphatase 395 U/L (38-126); Amylase 39 U/L (30-110); Anion Gap 6 mmol/L; Blood Urea Nitrogen 5 mg/dL (7-17); Carbon Dioxide 24 mmol/L (22-30); Chloride 109 mmol/L (98-107); Glucose 123 mg/dL (74-99); Lipase 25 U/L (23-300); Non-African American GFR(CKD) >90 (>60 ml/min/1.73 sqM); Potassium 3.1 mmol/L (3.5-5.1); Sodium 139 mmol/L (137-145); Total Bilirubin 0.7 mg/dL (0.2-1.3); Total Protein 5.8 g/dL (6.3-8.2)
[2024-07-05] MEDS: HYDROmorphone 1 MG/ML 1 ML SYRINGE IVP STA (00:13)
--- NOTE | 2024-07-05 01:20 | CT ---
EXAM: CT Abdomen and Pelvis With Intravenous Contrast CLINICAL HISTORY: Pain TECHNIQUE: Axial computed tomography images of the abdomen and pelvis with intravenous contrast. CTDI is 23.9 mGy and DLP is 1094.2 mGy-cm. This CT exam was performed using one or more of the following dose reduction techniques: automated exposure control, adjustment of the mA and/or kV according to patient size, and/or use of iterative reconstruction technique. COMPARISON: 06/18/2024. FINDINGS: Lung bases: Unremarkable. No mass. No consolidation. ABDOMEN: Liver: Unremarkable. No mass. Gallbladder and bile ducts: Unremarkable. No calcified stones. No ductal dilation. Pancreas: Unremarkable. No mass. No ductal dilation. Spleen: Unremarkable. No splenomegaly. Adrenals: Unremarkable. No mass. Kidneys and ureters: Right renal scarring. No obstructive uropathy. No obstructing renal or ureteral calculi. No hydronephrosis or hydroureter. Stomach and bowel: Small hiatal hernia. Interval removal of the previously demonstrated intra-abdominal catheter. Minimal scarring in the left anterior lateral lower abdominal wall. Redemonstrated right colon and left upper pelvic small bowel anastomotic sutures. Air-fluid levels in top normal caliber small and large bowel suggesting mild residual ileus. No definite bowel obstruction. Collapsed stomach with diffusely thickened ken. No free intraperitoneal fluid or focal collection. No evidence for diverticulitis. PELVIS: Appendix: Not identified. Bladder: Partially contracted. No mass. Reproductive: Uterus and ovaries not identified. ABDOMEN and PELVIS: Intraperitoneal space: No free air. No free fluid. Bones/joints: No acute fracture. Degenerative changes of the spine. Soft tissues: Midline ventral abdominal incision scar with small amount of fluid, slightly increased. Vasculature: Atherosclerotic vascular calcifications. No abdominal aortic aneurysm. Lymph nodes: Unremarkable. No enlarged lymph nodes. IMPRESSION: Interval removal of a previously demonstrated intra-abdominal catheter. Decreased postoperative bowel dilatation with residual top normal caliber bowel with air-fluid levels. Minimal free fluid. No abnormal collection. Fluid and infiltration with midline ventral incision scar suggesting interval surgery. Otherwise no significant interval change.
--- NOTE | 2024-07-05 01:53 | US ---
EXAM: US Abdomen Limited, Gallbladder CLINICAL HISTORY: Pain TECHNIQUE: Real-time ultrasound of the right upper quadrant with image documentation. COMPARISON: No relevant prior studies available. FINDINGS: Liver: 14.95 cm length. Gallbladder: Possible trace gallbladder sludge. No gallstones. No wall thickening or pericholecystic fluid. Common bile duct: 5 mm. No stones. No dilation. Pancreas: Unremarkable as visualized. Pancreatic tail obscured by bowel gas. Right kidney: 9.6 cm length. No hydronephrosis. IMPRESSION: Possible trace gallbladder sludge.
[2024-07-05] MEDS ORDERED: NALOXONE 0.4 MG/ML 1 ML VIAL IV PRN (02:12)
[2024-07-05] MEDS: HYDROmorphone 1 MG/ML 1 ML SYRINGE IVP PRN (02:42)
[2024-07-05] MEDS: POTASSIUM BICARBONATE/CIT AC 20 MEQ TABLET.EFF PO ONE ×2 (02:44→02:45)
[2024-07-05] MEDS: POTASSIUM CHLORIDE 20 MEQ in WATER FOR INJECTION 1 100ML.BAG IVPB STA (02:45)
[2024-07-05] MEDS: SODIUM CHLORIDE 0.9% 1,000 ML IV SCH (02:46)
[2024-07-05 04:19] LABS: Anisocytosis Moderate; Basophils % (A) 0 %; Eosinophils # (A) 0.9 k/uL (0-0.7); Eosinophils % (A) 11 %; HCT 29.7 % (34.0-46.0); HGB 8.8 gm/dL (11.4-16.0); Hypochromasia Marked; Lymphocytes # (A) 2.4 k/uL (1.0-4.8); Lymphocytes % (A) 31 %; MCHC 29.7 g/dL (31.0-37.0); MCV 94.3 fL (80.0-100.0); Macrocytosis Slight; Mean Platelet Volume 8.3; Monocytes # (A) 0.4 k/uL (0-1.0); Monocytes % (A) 5 %; Neutrophils # (A) 3.8 k/uL (1.3-7.7); Neutrophils % (A) 49 %; Platelet Count 509 k/uL (150-450); RBC 3.15 m/uL (3.80-5.40); RDW 21.2 % (11.5-15.5); WBC 7.8 k/uL (3.8-10.6)
[2024-07-05 04:20] LABS: ALT 95 U/L (4-34); AST 154 U/L (14-36); African American GFR (CKD) >90 (>60 ml/min/1.73 sqM); Albumin 2.9 g/dL (3.5-5.0); Albumin/Globulin Ratio 1.2; Alkaline Phosphatase 349 U/L (38-126); Anion Gap 3 mmol/L; Blood Urea Nitrogen 4 mg/dL (7-17); Calcium 8.4 mg/dL (8.4-10.2); Carbon Dioxide 23 mmol/L (22-30); Chloride 112 mmol/L (98-107); Globulin 2.4 g/dL; Glucose 111 mg/dL (74-99); Magnesium 1.7 mg/dL (1.6-2.3); Non-African American GFR(CKD) >90 (>60 ml/min/1.73 sqM); Potassium 3.6 mmol/L (3.5-5.1); Sodium 138 mmol/L (137-145); Total Bilirubin 0.6 mg/dL (0.2-1.3); Total Protein 5.3 g/dL (6.3-8.2)
[2024-07-05 06:03] LABS: Glucose,Whole Blood 103 mg/dL (70-110)
[2024-07-05] MEDS: ONDANSETRON 4 MG/2 ML VIAL IVP PRN (06:54)
[2024-07-05] MEDS: PANTOPRAZOLE 40 MG/10 ML VIAL IV SCH (08:08)
[2024-07-05 11:45] LABS: Glucose,Whole Blood 90 mg/dL (70-110)
[2024-07-05 12:43] LABS: Appearance,Urine Clear (Clear); Bilirubin,Urine Negative (Negative); Blood,Urine Negative (Negative); Color,Urine Light Yellow; Glucose,Urine (UA) Negative (Negative); Ketones,Urine Negative (Negative); Leukocyte Esterase,Urine Negative (Negative); Nitrite,Urine Negative (Negative); Protein,Urine Trace (Negative); Specific Gravity,Urine 1.038 (1.001-1.035); Urobilinogen,Urine <2.0 mg/dL (<2.0)
--- NOTE | 2024-07-05 12:50 | P.GSCN ---
History of Present Illness Consult date: 07/05/24 History of present illness: CHIEF COMPLAINT: Nausea vomiting HISTORY OF PRESENT ILLNESS: This is a 53-year-old female who was just recently discharged 3 days ago after prolonged hospitalization. Patient status post diagnostic laparoscopy converted to open with ileocecectomy for colitis with intramural abscess on 06/14/2024 and on 06/22/2024 taken back to the OR for ex ploratory laparotomy with extensive lysis of adhesions and small bowel resection x 2 and proximal right colon resection for small bowel obstruction secondary to adhesions and inflammation. Patient had been tolerating diet at time of discharge. Patient reports when she got home she was unable to tolerate food. She was having intractable nausea and vomiting. She initially tried a sandwich and then could even keep Jell-O down or the Pedialyte. Patient reports having flatus and bowel movements. She was having abdominal pain. The emesis did have blood in it. Her family became concerned and called EMS. Patient currently has had no further nausea or vomiting since coming to the hospital. CT scan abdomen pelvis reported decreased postoperative bowel dilation with residual top normal caliber bowel with air-fluid levels. No abnormal collection. Minimal free fluid. Patient is afebrile. And her white count is within normal range. Patient seen and examined with Dr. Samuel PAST MEDICAL HISTORY: Asthma, Coronary Artery Disease (CAD), COPD, Diabetes Mellitus, GERD/Reflux, Hypertension, Myocardial Infarction (AL), Osteoarthritis (OA) PAST SURGICAL HISTORY: coronary Bypass/CABG, Heart Catheterization With Stent MEDICATIONS: See below ALLERGIES: See below SOCIAL HISTORY: No illicit drug use. REVIEW OF SYSTEMS: CONSTITUTIONAL: Denies fever or chills. HEENT: Denies blurred vision, vision changes, or eye pain. Denies hemoptysis CARDIOVASCULAR: Denies chest pain or pressure. RESPIRATORY: No shortness of breath. GASTROINTESTINAL: See HPI for pertinent findings HEMATOLOGIC: Denies bleeding disorders. GENITOURINARY: Denies any blood in urine or increased urinary frequency. SKIN: Denies pruitis. Denies rash. PHYSICAL EXAM: VITAL SIGNS: Reviewed GENERAL: Well-developed in no acute distress. HEENT: No sclera icterus. Extraocular movements grossly intact. Moist buccal mucosa. Head is atraumatic, normocephalic. No nasal drainage. ABDOMEN: Soft. Nondistended. Nontender. Midline incision site with small amount of serous drainage noted at the distal incision. No erythema. NEUROLOGIC: Alert and oriented. Cranial nerves II through XII grossly intact. LABORATORY DATA: WBC 7.8 Hgb 8.8 platelets 509 Sodium 138 potassium 3.6 creatinine 0.57 Total bili 0.6 AST 154 ALT 95 alk phos 359 Lipase 25 IMAGING: CT scan abdomen pelvis interval removal of previously demonstrated intra- abdominal catheter decreased postoperative bowel dilatation with residual top normal caliber bowel with air-fluid levels. Minimal free fluid. Normal abnormal collection. Fluid and infiltration with midline ventral incision scar suggesting interval surgery. Otherwise no significant interval change ASSESSMENT: 1. Abdominal ileus likely contributing to patient's intractable nausea and vomiting 2. Hematemesis likely due to the intractable nausea and vomiting. Now res olved. Hemoglobin stable 3. Colitis with intramural wall absces status post diagnostic laparoscopy converted to open with ileocecectomy on 06/14/2024 4. Small bowel obstruction secondary to adhesions and inflammation status post exploratory laparotomy with extensive lysis of adhesions and small bowel resection x 2 and proximal right colon resection on 06/22/24 5. Weakness PLAN: -Continue clear liquid diet. Medicine service is advancing diet as tolerated -Continue IV fluid hydration -Continue antiemetics as needed -Consult PT OT and onsite case manager for possible ECF placement -No surgical intervention planned Physician Playground Attendant note has been reviewed by physician. Signing provider agrees with the documented findings, assessment, and plan of care. Attestation Patient seen and examined at bedside. States that after her previous discharge that she had significant nausea and vomiting and could not keep anything down. CT of the abdomen was personally reviewed with no significant acute findings outside of ileus. Since admission, patient states nausea vomiting has resolved and she is not in any pain at this time. She states that when she went home she felt weak and was not able to ambulate. I did recommend evaluation for subacute rehab. Will keep her on clear liquid diet at this time. Advance as tolerated. Patient did have some elevated liver enzymes but no right upper quadrant pain and gallbladder sludge on ultrasound, however does not appear to be symptomatic or cause of current symptoms. Marga Samuel Past Medical History Past Medical History: Asthma, Coronary Artery Disease (CAD), COPD, Diabetes Mellitus, GERD/Reflux, Hypertension, Myocardial Infarction (AL), Osteoarthritis (OA) Additional Past Medical History / Comment(s): DDD, scoliosis, [place] x4 Last Myocardial Infarction Date:: 2011 History of Any Multi-Drug Resistant Organisms: None Reported Past Surgical History: Coronary Bypass/CABG, Heart Catheterization With Stent Additional Past Surgical History / Comment(s): seven stents, here for ga stroenteritis with abcess (removal 06/21/24) Past Anesthesia/Blood Transfusion Reactions: No Reported Reaction Date of Last Stent Placement:: 11/2018 Past Psychological History: Anxiety, Bipolar Smoking Status: Current every day smoker Past Alcohol Use History: None Reported Additional Past Alcohol Use History / Comment(s): 1 ppd Past Drug Use History: Marijuana - Past Family History Mother Family Medical History: Cancer Additional Family Medical History / Comment(s): Ovarian cancer Father Family Medical History: Congestive Heart Failure (CHF) Fmily Family Medical History: No Reported History Medications and Allergies Home Medications Medication Instructions Recorded Confirmed Type Atorvastatin [Lipitor] 80 mg PO DAILY 07/08/20 07/05/24 History Ranolazine [Ranexa] 1,000 mg PO BID 11/13/21 07/05/24 History Albuterol Inhaler [Ventolin Hfa 2 puff INHALATION RT-QID PRN 03/27/23 07/05/24 History Inhaler] Aspirin EC [Ecotrin Low Dose] 81 mg PO DAILY 03/27/23 07/05/24 History Budesonide/Formoterol Fumarate 2 puff INHALATION RT-BID 03/27/23 07/05/24 History [Symbicort 160-4.5 Mcg Inhaler] Clopidogrel [Plavix] 75 mg PO DAILY 03/27/23 07/05/24 History Nitroglycerin Sl Tabs [Nitrostat] 0.4 mg SL Q5M PRN 03/27/23 07/05/24 History Omeprazole 40 mg PO BID 03/27/23 07/05/24 History Pregabalin [Lyrica] 150 mg PO TID 03/27/23 07/05/24 History amLODIPine [Norvasc] 10 mg PO DAILY 03/27/23 07/05/24 History metFORMIN HCL 1,000 mg PO BID 03/27/23 07/05/24 History rOPINIRole HCL [Requip] 1 mg PO HS 03/27/23 07/05/24 History ALPRAZolam [Xanax] 0.5 mg PO BID PRN 06/22/23 07/05/24 History Dapagliflozin Propanediol [Farxiga] 5 mg PO DAILY 03/16/24 07/05/24 History Dulaglutide [Trulicity] 3 mg SQ WE 03/16/24 07/05/24 History Insulin Lispro [humaLOG Kwikpen] See Protocol SQ AC-TID 03/16/24 07/05/24 History Ipratropium-Albuterol Nebulize 3 ml INHALATION RT-TID 03/16/24 07/05/24 History [Duoneb 0.5 mg-3 mg/3 ml Soln] Isosorbide Mononitrate ER [Imdur] 30 mg PO DAILY 03/16/24 07/05/24 History Mag Hydrox/Al Hydrox/Simeth 30 ml PO QID PRN 2 Days #180 ml 05/22/24 07/05/24 Rx [Maalox] Spiriva Respimat 1.25mcg/Actuation 2 puff INHALATION RT-DAILY 05/24/24 07/05/24 History Mist Albuterol Nebulized [Ventolin 2.5 mg INHALATION RT-Q6H PRN 05/31/24 07/05/24 History Nebulized] Ondansetron Odt [Zofran ODT] 4 mg PO Q8HR PRN 05/31/24 07/05/24 History lisinopriL [Zestril] 10 mg PO DAILY 05/31/24 07/05/24 History Cholestyramine (with Sugar) 4 gm PO BID #60 packet 06/03/24 07/05/24 Rx [Questran Packet] Anidulafungin [Eraxis] 100 mg IVPB DAILY #7 each 07/02/24 07/05/24 Rx Ertapenem [INVanz] 1 gm IVPB Q24H #7 each 07/02/24 07/05/24 Rx Metoprolol Tartrate [Lopressor] 12.5 mg PO BID #60 tab 07/02/24 07/05/24 Rx HYDROcodone/APAP 10-325MG [[place] 1 tab PO Q6HR PRN 07/05/24 07/05/24 History 10-325] Allergies Allergy/AdvReac Type Severity Reaction Status Date / Time No Known Allergies Allergy Verified 07/05/24 11:05 Surgical - Exam Osteopathic Statement: *. No significant issues noted on an osteopathic structural exam other than those noted in the History and Physical/Consult. Vital Signs Temp Pulse Resp BP Pulse Ox 98.3 F 94 20 134/98 95 07/04/24 22:03 07/04/24 22:03 07/04/24 22:03 07/04/24 22:03 07/04/24 22:03 Results - Labs 07/05/24 03:49 07/05/24 03:49 Abnormal Lab Results - Last 24 Hours (Table) 07/04/24 07/04/24 07/05/24 Range/Units 22:06 22:06 03:49 RBC 3.18 L 3.15 L (3.80-5.40) m/uL Hgb 8.8 L 8.8 L (11.4-16.0) gm/dL Hct 29.5 L 29.7 L (34.0-46.0) % MCHC 29.8 L 29.7 L (31.0-37.0) g/dL RDW 21.0 H 21.2 H (11.5-15.5) % Plt Count 582 H 509 H (150-450) k/uL Eosinophils # 0.8 H 0.9 H (0-0.7) k/uL Potassium 3.1 L (3.5-5.1) mmol/L Chloride 109 H (98-107) mmol/L BUN 5 L (7-17) mg/dL Glucose 123 H (74-99) mg/dL AST 157 H (14-36) U/L ALT 94 H (4-34) U/L Alkaline Phosphatase 395 H (38-126) U/L Total Protein 5.8 L (6.3-8.2) g/dL Albumin 3.2 L (3.5-5.0) g/dL 07/05/24 Range/Units 03:49 RBC (3.80-5.40) m/uL Hgb (11.4-16.0) gm/dL Hct (34.0-46.0) % MCHC (31.0-37.0) g/dL RDW (11.5-15.5) % Plt Count (150-450) k/uL Eosinophils # (0-0.7) k/uL Potassium (3.5-5.1) mmol/L Chloride 112 H (98-107) mmol/L BUN 4 L (7-17) mg/dL Glucose 111 H (74-99) mg/dL AST 154 H (14-36) U/L ALT 95 H (4-34) U/L Alkaline Phosphatase 349 H (38-126) U/L Total Protein 5.3 L (6.3-8.2) g/dL Albumin 2.9 L (3.5-5.0) g/dL Diabetes panel 07/04/24 07/05/24 Range/Units 22:06 03:49 Sodium 139 138 (137-145) mmol/L Potassium 3.1 L 3.6 (3.5-5.1) mmol/L Chloride 109 H 112 H (98-107) mmol/L Carbon Dioxide 24 23 (22-30) mmol/L BUN 5 L 4 L (7-17) mg/dL Creatinine 0.53 0.57 (0.52-1.04) mg/dL Glucose 123 H 111 H (74-99) mg/dL Calcium 9.0 8.4 (8.4-10.2) mg/dL AST 157 H 154 H (14-36) U/L ALT 94 H 95 H (4-34) U/L Alkaline Phosphatase 395 H 349 H (38-126) U/L Total Protein 5.8 L 5.3 L (6.3-8.2) g/dL Albumin 3.2 L 2.9 L (3.5-5.0) g/dL Calcium panel 07/04/24 07/05/24 Range/Units 22:06 03:49 Calcium 9.0 8.4 (8.4-10.2) mg/dL Phosphorus 4.0 (2.5-4.5) mg/dL Albumin 3.2 L 2.9 L (3.5-5.0) g/dL Pituitary panel 07/04/24 07/05/24 Range/Units 22:06 03:49 Sodium 139 138 (137-145) mmol/L Potassium 3.1 L 3.6 (3.5-5.1) mmol/L Chloride 109 H 112 H (98-107) mmol/L Carbon Dioxide 24 23 (22-30) mmol/L BUN 5 L 4 L (7-17) mg/dL Creatinine 0.53 0.57 (0.52-1.04) mg/dL Glucose 123 H 111 H (74-99) mg/dL Calcium 9.0 8.4 (8.4-10.2) mg/dL Adrenal panel 07/04/24 07/05/24 Range/Units 22:06 03:49 Sodium 139 138 (137-145) mmol/L Potassium 3.1 L 3.6 (3.5-5.1) mmol/L Chloride 109 H 112 H (98-107) mmol/L Carbon Dioxide 24 23 (22-30) mmol/L BUN 5 L 4 L (7-17) mg/dL Creatinine 0.53 0.57 (0.52-1.04) mg/dL Glucose 123 H 111 H (74-99) mg/dL Calcium 9.0 8.4 (8.4-10.2) mg/dL Total Bilirubin 0.7 0.6 (0.2-1.3) mg/dL AST 157 H 154 H (14-36) U/L ALT 94 H 95 H (4-34) U/L Alkaline Phosphatase 395 H 349 H (38-126) U/L Total Protein 5.8 L 5.3 L (6.3-8.2) g/dL Albumin 3.2 L 2.9 L (3.5-5.0) g/dL
[2024-07-05] MEDS ORDERED: MAG HYDROX/AL HYDROX/SIMETH 30 ML CUP PO PRN (14:28)
[2024-07-05] MEDS ORDERED: ONDANSETRON ODT 4 MG TAB PO PRN (14:28)
[2024-07-05] MEDS ORDERED: ALBUTEROL NEBULIZED 2.5 MG/3 ML INHALATION PRN (14:28)
[2024-07-05] MEDS ORDERED: NON FORMULARY DRUG (Albuterol Inhaler 90 MCG Puff) INHALATION PRN (14:28)
--- NOTE | 2024-07-05 15:58 | P.HPIM ---
History of Present Illness History of present illness; 53-year-old female with diabetes, hypertension, COPD, CABG with multiple stents most recently in November 2018 maintained on aspirin and Plavix presents with complaints of worsening nausea and vomiting. Of note this patient was recently discharged from this facility on 07/02 after undergoing a open iliocecectomy with drain placement. Patient reports when she got home from the hospital she was barely able to tolerate any food. She was able to take a bite or 2 of the sandwich and eat some Jell-O but nothing more. Patient also reports that she was vomiting blood, when asked about the quantity she says about 2 cups. Patient reports if it was up to her she would not of come back to the hospital. Patient reports her family pushed her to return to the hospital after the symptoms and episodes of vomiting blood happened. Patient reports that since she has been at the hospital she has not vomited a gain. Patient admits to diarrhea, weakness, nausea, and pelvic pain. Initial lab work from the ER was significant for WBC 8.5, hemoglobin 8.8, MCV 98.7, sodium 139, potassium 3.1, glucose 123, AST 157, ALT 94, alkaline phosphatase 295, amylase 39, and lipase 25. EKG on 07/03 showed heart rate of 56 bpm, no ST segment elevation or depression seen, no T-wave inversions seen. Sinus bradycardia. ER CT ABD: Interval removal of the previously demonstrated intra-abdominal catheter. Decreased postoperative bowel dilation with residual top normal caliber bowel with air-fluid levels. Minimal free fluid. No abdominal collection. Fluid and infiltration with midline ventral incision scar sug gesting interval surgery. Otherwise no significant interval change. ER gallbladder ultrasound: Possible trace gallbladder sludge. Patient admitted to internal medicine service REVIEW OF SYSTEMS: CONSTITUTIONAL: No fever, no malaise, no fatigue. HEENT: No recent visual problems or hearing problems. Denied any sore throat. CARDIOVASCULAR: No chest pain, orthopnea, PND, no palpitations, no syncope. PULMONARY: No shortness of breath, no cough, no hemoptysis. GASTROINTESTINAL: Admits to diarrhea, nausea, vomiting, and mild abdominal/pelvic pain. NEUROLOGICAL: No headaches, no weakness, no numbness. HEMATOLOGICAL: Denies any bleeding or petechiae. GENITOURINARY: Denies any burning micturition, frequency, or urgency. MUSCULOSKELETAL/RHEUMATOLOGICAL: Denies any joint pain, swelling, or any muscle pain. ENDOCRINE: Denies any polyuria or polydipsia. The rest of the 14-point review of systems is negative. PHYSICAL EXAMINATION: General: non toxic, no distress, appears at stated age, normal weight Derm: no unusual rashes/lesions, warm Head: atraumatic, normocephalic, symmetric ENT: Nose and ears atraumatic Neck: No cervical lymphadenopathy, trachea midline, supple Mouth: no lip lesion, mucus membranes moist Cardiovascular: S1S2 reg, no murmur, positive dorsalis pedis pulse bilateral, no edema Lungs: Decreased air entry bilaterally, no rhonchi, no rales, no accessory muscle use Abdominal: soft, nontender to palpation, no guarding. Surgical incision seen Neuro: CN II-XI grossly intact, no gross focal neuro deficits Psych: Alert, oriented, appropriate affect Assessment:53-year-old female with diabetes, hypertension, COPD, CABG with multiple stents most recently in November 2018 maintained on aspirin and Plavix presents with complaints of worsening nausea and vomiting. Patient recently here for abdominal surgery, current symptoms likely secondary to postoperative pain. Plan: Active: #Colitis with intramural wall abscess status post open ileocecectomy with drain placement: Postop complication (infection versus bleed versus expected postop pain) CT abdomen showed no free fluid or abdominal collection. Patient currently on full liquid diet, will progress diet as tolerated Continue NS 75 cc/h ID on consult, continued previous home IV course of Eraxis and ertapenem Continue to monitor for signs of infection #Transaminitis: AST 157 and ALT 94 (07/04) Potentially in the setting of statin versus Eraxis versus multiple episodes of vomiting versus unknown etiology Continue IV fluids Continue to monitor #Hypokalemia: 3.1 on admission Will replete Follow-up labs in the a.m. Chronic: #Diabetes mellitus type 2: Start on sliding scale Accu-Cheks ACHS #Hypertension: Continue home medication #Hyperlipidemia: Continue home medication #COPD: Continue DuoNeb, Symbicort, and Ventolin as needed #History of CABG and stents: Continue aspirin #Anxiety: Continue Xanax as needed. F: NS 75 cc/h E: Potassium N: Full liquid diet A: Normally ambulates with minimal assistance GI ppx: Protonix 40 mg IV daily Anticipated Place of discharge: Acute rehab Dispo: Pending clinical course Donna Marley MD PGY-1 FM Attestation I have seen and examined this patient with my resident , discussed the same with the resident/OLIVIA, and agree with the dictator's assessment and plan as written Dr. Isra lundy Dictation was produced using [employer] dictation software. please excuse any grammatical, word or spelling errors. Past Medical History Past Medical History: Asthma, Coronary Artery Disease (CAD), COPD, Diabetes Mellitus, GERD/Reflux, Hypertension, Myocardial Infarction ([place]), Osteoarthritis (OA) Additional Past Medical History / Comment(s): DDD, scoliosis, [place] x4 Last Myocardial Infarction Date:: 2011 History of Any Multi-Drug Resistant Organisms: None Reported Past Surgical History: Coronary Bypass/CABG, Heart Catheterization With Stent Additional Past Surgical History / Comment(s): seven stents, here for gastroenteritis with abcess (removal 06/21/24) Past Anesthesia/Blood Transfusion Reactions: No Reported Reaction Date of Last Stent Placement:: 11/2018 Past Psychological History: Anxiety, Bipolar Smoking Status: Current every day smoker Past Alcohol Use History: None Reported Additional Past Alcohol Use History / Comment(s): 1 ppd Past Drug Use History: Marijuana - Past Family History Mother Family Medical History: Cancer Additional Family Medical History / Comment(s): Ovarian cancer Father Family Medical History: Congestive Heart Failure (CHF) Fmily Family Medical History: No Reported History Medications and Allergies Home Medications Medication Instructions Recorded Confirmed Type Atorvastatin [Lipitor] 80 mg PO DAILY 07/08/20 07/05/24 History Ranolazine [Ranexa] 1,000 mg PO BID 11/13/21 07/05/24 History Albuterol Inhaler [Ventolin Hfa 2 puff INHALATION RT-QID PRN 03/27/23 07/05/24 History Inhaler] Aspirin EC [Ecotrin Low Dose] 81 mg PO DAILY 03/27/23 07/05/24 History Budesonide/Formoterol Fumarate 2 puff INHALATION RT-BID 03/27/23 07/05/24 History [Symbicort 160-4.5 Mcg Inhaler] Clopidogrel [Plavix] 75 mg PO DAILY 03/27/23 07/05/24 History Nitroglycerin Sl Tabs [Nitrostat] 0.4 mg SL Q5M PRN 03/27/23 07/05/24 History Omeprazole 40 mg PO BID 03/27/23 07/05/24 History Pregabalin [Lyrica] 150 mg PO TID 03/27/23 07/05/24 History amLODIPine [Norvasc] 10 mg PO DAILY 03/27/23 07/05/24 History metFORMIN HCL 1,000 mg PO BID 03/27/23 07/05/24 History rOPINIRole HCL [Requip] 1 mg PO HS 03/27/23 07/05/24 History ALPRAZolam [Xanax] 0.5 mg PO BID PRN 06/22/23 07/05/24 History Dapagliflozin Propanediol [Farxiga] 5 mg PO DAILY 03/16/24 07/05/24 History Dulaglutide [Trulicity] 3 mg SQ WE 03/16/24 07/05/24 History Insulin Lispro [humaLOG Kwikpen] See Protocol SQ AC-TID 03/16/24 07/05/24 History Ipratropium-Albuterol Nebulize 3 ml INHALATION RT-TID 03/16/24 07/05/24 History [Duoneb 0.5 mg-3 mg/3 ml Soln] Isosorbide Mononitrate ER [Imdur] 30 mg PO DAILY 03/16/24 07/05/24 History Mag Hydrox/Al Hydrox/Simeth 30 ml PO QID PRN 2 Days #180 ml 05/22/24 07/05/24 Rx [Maalox] Spiriva Respimat 1.25mcg/Actuation 2 puff INHALATION RT-DAILY 05/24/24 07/05/24 History Mist Albuterol Nebulized [Ventolin 2.5 mg INHALATION RT-Q6H PRN 05/31/24 07/05/24 History Nebulized] Ondansetron Odt [Zofran ODT] 4 mg PO Q8HR PRN 05/31/24 07/05/24 History lisinopriL [Zestril] 10 mg PO DAILY 05/31/24 07/05/24 History Cholestyramine (with Sugar) 4 gm PO BID #60 packet 06/03/24 07/05/24 Rx [Questran Packet] Anidulafungin [Eraxis] 100 mg IVPB DAILY #7 each 07/02/24 07/05/24 Rx Ertapenem [INVanz] 1 gm IVPB Q24H #7 each 07/02/24 07/05/24 Rx Metoprolol Tartrate [Lopressor] 12.5 mg PO BID #60 tab 07/02/24 07/05/24 Rx HYDROcodone/APAP 10-325MG [[place] 1 tab PO Q6HR PRN 07/05/24 07/05/24 History 10-325] Allergies Allergy/AdvReac Type Severity Reaction Status Date / Time No Known Allergies Allergy Verified 07/05/24 11:05 Physical Exam Vitals: Vital Signs Temp Pulse Pulse Resp BP BP Pulse Ox 07/05/24 06:53 98.2 F 82 17 126/79 93 L 07/05/24 04:02 98.4 F 83 17 152/82 97 07/05/24 03:20 18 116/76 07/05/24 01:11 85 18 112/56 07/04/24 22:03 98.3 F 94 20 134/98 95 Intake and Output 07/04/24 07/05/24 07/05/24 22:59 06:59 14:59 Intake Total 1060 Balance 1060 Intake: Oral 1060 Other: # Voids 5 # Bowel Movements 2 Weight 90.718 kg 90.718 kg Results CBC & Chem 7: 07/06/24 03:46 07/05/24 03:49 Labs: Abnormal Lab Results - Last 24 Hours (Table) 07/04/24 07/04/24 07/05/24 Range/Units 22:06 22:06 03:49 RBC 3.18 L 3.15 L (3.80-5.40) m/uL Hgb 8.8 L 8.8 L (11.4-16.0) gm/dL Hct 29.5 L 29.7 L (34.0-46.0) % MCHC 29.8 L 29.7 L (31.0-37.0) g/dL RDW 21.0 H 21.2 H (11.5-15.5) % Plt Count 582 H 509 H (150-450) k/uL Eosinophils # 0.8 H 0.9 H (0-0.7) k/uL Potassium 3.1 L (3.5-5.1) mmol/L Chloride 109 H (98-107) mmol/L BUN 5 L (7-17) mg/dL Glucose 123 H (74-99) mg/dL AST 157 H (14-36) U/L ALT 94 H (4-34) U/L Alkaline Phosphatase 395 H (38-126) U/L Total Protein 5.8 L (6.3-8.2) g/dL Albumin 3.2 L (3.5-5.0) g/dL 07/05/24 Range/Units 03:49 RBC (3.80-5.40) m/uL Hgb (11.4-16.0) gm/dL Hct (34.0-46.0) % MCHC (31.0-37.0) g/dL RDW (11.5-15.5) % Plt Count (150-450) k/uL Eosinophils # (0-0.7) k/uL Potassium (3.5-5.1) mmol/L Chloride 112 H (98-107) mmol/L BUN 4 L (7-17) mg/dL Glucose 111 H (74-99) mg/dL AST 154 H (14-36) U/L ALT 95 H (4-34) U/L Alkaline Phosphatase 349 H (38-126) U/L Total Protein 5.3 L (6.3-8.2) g/dL Albumin 2.9 L (3.5-5.0) g/dL Thrombosis Risk Factor Assmnt - Choose All That Apply Any of the Below Risk Factors Present?: Yes Each Factor Represents 1 point: Abnormal pulmonary function (COPD), Obesity (BMI >25) Thrombosis Risk Factor Assessment Total Risk Factor Score: 2 Thrombosis Risk Factor Assessment Level: Low Risk
[2024-07-05] MEDS: CLOPIDOGREL 75 MG TAB PO SCH (16:00)
[2024-07-05] MEDS: PREGABALIN 75 MG CAP PO SCH (16:00)
[2024-07-05 16:26] LABS: Glucose,Whole Blood 86 mg/dL (70-110)
[2024-07-05] MEDS: ERTAPENEM 1 GM in SODIUM CHLORIDE 0.9% 50 ML IVPB SCH (16:51)
[2024-07-05] MEDS: ANIDULAFUNGIN 200 MG in SODIUM CHLORIDE 0.9% 200 ML IVPB ONE (17:48)
[2024-07-05] MEDS: ALPRAZolam 0.5 MG TAB PO PRN (18:06)
[2024-07-05] MEDS: SYMBICORT 160-4.5 MCG INHALER INHALATION SCH (20:22)
[2024-07-05] MEDS: IPRATROPIUM-ALBUTEROL 3 ML NEB INHALATION SCH (20:22)
[2024-07-05 20:36] LABS: Glucose,Whole Blood 100 mg/dL (70-110)
[2024-07-05] MEDS ORDERED: NON FORMULARY DRUG (Omeprazole [Omeprazole] 40 MG Capsule.Dr) PO SCH (21:00)
[2024-07-05] MEDS: RANOLAZINE 500 MG TAB.ER.12H PO SCH (22:02)
[2024-07-05] MEDS: METOPROLOL TARTRATE 12.5 MG TAB PO SCH (22:02)
[2024-07-05] MEDS: CHOLESTYRAMINE (WITH SUGAR) 4 GM PACKET PO SCH (22:04)
[2024-07-06 06:44] LABS: Glucose,Whole Blood 86 mg/dL (70-110)
[2024-07-06] MEDS ORDERED: MIST INHALATION SCH (08:00)
[2024-07-06] MEDS ORDERED: SPIRIVA RESPIMAT INHALATION SCH (08:00)
[2024-07-06] MEDS: amLODIPine 10 MG TAB PO SCH (08:36)
[2024-07-06] MEDS: lisinopriL 10 MG TAB PO SCH (08:36)
[2024-07-06] MEDS: ISOSORBIDE MONONITRATE ER 30 MG TAB.ER.24H PO SCH (08:36)
[2024-07-06] MEDS: ASPIRIN 81 MG PO SCH (08:36)
[2024-07-06] MEDS: DAPAGLIFLOZIN PROPANEDIOL 5 MG TABLET PO SCH (08:36)
[2024-07-06 08:58] LABS: HCT 26.6 % (37.2-46.3); HGB 7.9 g/dL (12.0-15.0); MCH 27.6 pg (27.0-32.0); MCHC 29.7 g/dL (32.0-37.0); NRBC Per 100 WBC 0 X 10*3/uL (0.00-0.01); Platelet Count 495 X 10*3/uL (140-440); RBC 2.86 X 10*6/uL (4.10-5.20); RDW 22.1 % (11.5-14.5); WBC 6.85 X 10*3/uL (4.50-10.00)
[2024-07-06 09:16] LABS: Magnesium 1.8 mg/dL (1.5-2.4); Phosphorus 3.9 mg/dL (2.4-5.1)
[2024-07-06 09:23] LABS: ALT 140 U/L (8-44); AST 243 U/L (13-35); Albumin 2.9 g/dL (3.8-4.9); Albumin/Globulin Ratio 1.53 Ratio (1.60-3.17); Alkaline Phosphatase 320 U/L (41-126); BUN/Creat Ratio <5.83 Ratio (12.00-20.00); Blood Urea Nitrogen <3.5 mg/dL (9.0-27.0); Calcium 8.1 mg/dL (8.7-10.3); Carbon Dioxide 22.8 mmol/L (21.6-31.8); Chloride 110 mmol/L (96-109); Globulin 1.9 g/dL (1.6-3.3); Glucose 84 mg/dL (70-110); Potassium 3.6 mmol/L (3.5-5.5); Sodium 141 mmol/L (135-145); Total Bilirubin 0.3 mg/dL (0.3-1.2); Total Protein 4.8 g/dL (6.2-8.2)
--- NOTE | 2024-07-06 09:47 | P.PN ---
Subjective HPI: 53-year-old female with diabetes, hypertension, COPD, CABG with multiple stents most recently in November 2018 maintained on aspirin and Plavix presents with complaints of worsening nausea and vomiting. Of note this patient was recently discharged from this facility on 07/02 after undergoing a open iliocecectomy with drain placement. Patient reports when she got home from the hospital she was barely able to tolerate any food. She was able to take a bite or 2 of the sandwich and eat some Jell-O but nothing more. Patient also reports that she was vomiting blood, when asked about the quantity she says about 2 cups. Patient reports if it was up to her she would not of come back to the hospital. Patient reports her family pushed her to return to the hospital after the symptoms and episodes of vomiting blood happened. Patient reports that since she has been at the hospital she has not vomited again. Patient admits to diarrhea, weakness, nausea, and pelvic pain. Initial lab work from the ER was significant for WBC 8.5, hemoglobin 8.8, MCV 98.7, sodium 139, potassium 3.1, glucose 123, AST 157, ALT 94, alkaline phosphatase 295, amylase 39, and lipase 25. EKG on 07/03 showed heart rate of 56 bpm, no ST segment elevation or depressi on seen, no T-wave inversions seen. Sinus bradycardia. ER CT ABD: Interval removal of the previously demonstrated intra-abdominal catheter. Decreased postoperative bowel dilation with residual top normal caliber bowel with air- fluid levels. Minimal free fluid. No abdominal collection. Fluid and infiltration with midline ventral incision scar suggesting interval surgery. Otherwise no significant interval change. ER gallbladder ultrasound: Possible trace gallbladder sludge. Subjective: 07/06/2024: Patient seen at bedside. No significant overnight events. Patient reports she is feeling better, was able to eat oatmeal this morning without vomiting. Pertinent positives and negatives discussed above, a complete review of systems was preformed and all the other sytems were negative. Vitals Signs Reveiwed. General: non toxic, no distress, appears at stated age, normal weight Derm: no unusual rashes/lesions, warm Head: atraumatic, normocephalic, symmetric Eyes: EOMI, no lid lag, anicteric sclera, pupils equal round reactive to light ENT: Nose and ears atraumatic Neck: No cervical lymphadenopathy, trachea midline, supple Mouth: no lip lesion, mucus membranes moist Cardiovascular: S1S2 reg, no murmur, positive dorsalis pedis pulse bilateral, no edema Lungs: Decreased air entry bilaterally, no rhonchi, no rales, no accessory muscle use Abdominal: soft, nontender to palpation, no guarding Ext: muscle strength 5 out of 5 in all 4 extremities grossly, no gross muscle atrophy, no contractures, Neuro: CN II-XI grossly intact, no gross focal neuro deficits Psych: Alert, oriented, appropriate affect Data Reveiwed Today: Patient Labs: Hemoglobin 7.9, calcium 8.1, AST 243, ALT 140, alkaline phosphatase 320 Imaging: No new imaging. Assessment:53-year-old female with diabetes, hypertension, COPD, CABG with multiple stents most recently in November 2018 maintained on aspirin and Plavix presents with complaints of worsening nausea and vomiting. Patient recently here for abdominal surgery, current symptoms likely secondary to postoperative pain. Plan: Active: #Colitis with intramural wall abscess status post open ileocecectomy with drain placement: Postop complication (infection versus bleed versus expected postop pain) CT abdomen showed no free fluid or abdominal collection. Patient currently on full liquid diet, will progress diet as tolerated Discontinue IV fluids as patient is tolerating liquids ID on consult, have decided to discontinue Eraxis and ertapenem in the setting of elevated LFTs and monitor off of these medications. Continue to monitor for signs of infection #Transaminitis: AST 243, ALT 140 today, previously AST 157 and ALT 94 (07/04) Potentially in the setting of statin versus Eraxis versus multiple episodes of vomiting versus unknown etiology Continue to hold Eraxis and statin Continue IV fluids Continue to monitor #Hypokalemia: Improved 3.1 on admission, 3.6 now Will replete Follow-up labs in the a.m. #Anemia: Likely in the setting of recent surgery and recent hemoptysis Hemoglobin 8.8 on admission which is increased from patient's previous recent hospitalization but has since decreased to 7.9 Transfuse if less than 7 mmHg Discontinued IV fluids as patient is tolerating liquids Continue to monitor Chronic: #Diabetes mellitus type 2: Start on sliding scale Accu-Cheks ACHS #Hypertension: Continue home medication #Hyperlipidemia: Continue home medication #COPD: Continue DuoNeb, Symbicort, and Ventolin as needed #History of CABG and stents: Continue aspirin #Anxiety: Continue Xanax as needed. F: None E: Potassium N: Full liquid diet A: Normally ambulates with minimal assistance GI ppx: Protonix 40 mg IV daily Anticipated Place of discharge: Acute rehab Dispo: Pending clinical course Donna Marley MD PGY-1 FM Attestation I have seen and examined this patient with my resident , discussed the same with the resident/OLIVIA, and agree with the dictator's assessment and plan as written Dr. Isra lundy Objective - Vital Signs Vital signs: Vital Signs Temp 97.5 F L 07/06/24 06:56 Pulse 105 H 07/06/24 06:56 Resp 20 07/06/24 06:56 BP 133/81 07/06/24 06:56 Pulse Ox 97 07/06/24 06:56 FiO2 Intake & Output 07/05/24 07/06/24 07/06/24 18:59 06:59 18:59 Other: # Voids 1 4 - Labs CBC & Chem 7: 07/06/24 03:46 07/06/24 03:46 Labs: Abnormal Lab Results - Last 24 Hours (Table) 07/05/24 07/06/24 07/06/24 Range/Units 12:03 03:46 03:46 RBC 2.86 L (4.10-5.20) X 10*6/uL Hgb 7.9 L (12.0-15.0) g/dL Hct 26.6 L (37.2-46.3) % MCHC 29.7 L (32.0-37.0) g/dL RDW 22.1 H (11.5-14.5) % Plt Count 495 H (140-440) X 10*3/uL Chloride 110 H (96-109) mmol/L BUN <3.5 L (9.0-27.0) mg/dL BUN/Creatinine Ratio <5.83 L (12.00-20.00) Ratio Calcium 8.1 L (8.7-10.3) mg/dL AST 243 H (13-35) U/L ALT 140 H (8-44) U/L Alkaline Phosphatase 320 H (41-126) U/L Total Protein 4.8 L (6.2-8.2) g/dL Albumin 2.9 L (3.8-4.9) g/dL Albumin/Globulin Ratio 1.53 L (1.60-3.17) Ratio Ur Specific [place] 1.038 H (1.001-1.035) Urine Protein Trace H (Negative)
--- NOTE | 2024-07-06 10:03 | P.CONS ---
History of Present Illness - Reason for Consult Consult date: 07/05/24 Abdominal abscess on antibiotics Requesting physician: Isra Rinaldi - Chief Complaint Vomiting abdominal pain x 1 day - History of Present Illness Patient is a 53-year-old female with a past medical history of kidney for diabetes mellitus hypertension [place] osteoarthritis, who recently did have a prolonged hospital stay in this patient who did have intramural abscess and the patient is status post ileocecectomy subsequently was taken back to the OR for exploratory laparotomy with lysis of adhesion small bowel resection and proximal right colon resection for small bowel obstruction abdominal culture at that time did grew Nilda albicans as well as Nilda glabrata patient was stabilized and discharge home on IV Invanz and Eraxis which the patient was receiving patient now presenting back to the hospital concerning for intractable nausea and vomiting patient mention she was unable to keep anything down has been complaining of abdominal distention and pain which is moderate intensity without radiation patient that she has been passing gas and did have bowel movements with the symptoms the patient has been evaluated patient on presentation the hospital was afebrile and no fever have been recorded subsequently patient was not tachycardic hypotensive or hypoxic which patient did have a white count of 7.8 creatinine has been normal liver enzymes are elevated urine has been negative patient did have abdominal pelvis CT interval removal of the previously demonstrated intra-abdominal catheter decreased postoperative bowel dilatation with residual top normal caliber bowel with air-fluid levels minimal free fluid and no abdominal collection patient did have a gallbladder ultrasound possible trace gallbladder sludge infectious disease was consulted for management of antibiotic therapy Review of Systems Positive point and negatives has been mentioned in the HPI, complete review of systems was performed and all other systems are negative Past Medical History Past Medical History: Asthma, Coronary Artery Disease (CAD), COPD, Diabetes Mellitus, GERD/Reflux, Hypertension, Myocardial Infarction ([place]), Osteoarthritis (OA) Additional Past Medical History / Comment(s): DDD, scoliosis, [place] x4 Last Myocardial Infarction Date:: 2011 History of Any Multi-Drug Resistant Organisms: None Reported Past Surgical History: Coronary Bypass/CABG, Heart Catheterization With Stent Additional Past Surgical History / Comment(s): seven stents, here for gastroenteritis with abcess (removal 06/21/24) Past Anesthesia/Blood Transfusion Reactions: No Reported Reaction Date of Last Stent Placement:: 11/2018 Past Psychological History: Anxiety, Bipolar Smoking Status: Current every day smoker Past Alcohol Use History: None Reported Additional Past Alcohol Use History / Comment(s): 1 ppd Past Drug Use History: Marijuana - Past Family History Mother Family Medical History: Cancer Additional Family Medical History / Comment(s): Ovarian cancer Father Family Medical History: Congestive Heart Failure (CHF) Fmily Family Medical History: No Reported History Medications and Allergies Home Medications Medication Instructions Recorded Confirmed Type Atorvastatin [Lipitor] 80 mg PO DAILY 07/08/20 07/05/24 History Ranolazine [Ranexa] 1,000 mg PO BID 11/13/21 07/05/24 History Albuterol Inhaler [Ventolin Hfa 2 puff INHALATION RT-QID PRN 03/27/23 07/05/24 History Inhaler] Aspirin EC [Ecotrin Low Dose] 81 mg PO DAILY 03/27/23 07/05/24 History Budesonide/Formoterol Fumarate 2 puff INHALATION RT-BID 03/27/23 07/05/24 History [Symbicort 160-4.5 Mcg Inhaler] Clopidogrel [Plavix] 75 mg PO DAILY 03/27/23 07/05/24 History Nitroglycerin Sl Tabs [Nitrostat] 0.4 mg SL Q5M PRN 03/27/23 07/05/24 History Omeprazole 40 mg PO BID 03/27/23 07/05/24 History Pregabalin [Lyrica] 150 mg PO TID 03/27/23 07/05/24 History amLODIPine [Norvasc] 10 mg PO DAILY 03/27/23 07/05/24 History metFORMIN HCL 1,000 mg PO BID 03/27/23 07/05/24 History rOPINIRole HCL [Requip] 1 mg PO HS 03/27/23 07/05/24 History ALPRAZolam [Xanax] 0.5 mg PO BID PRN 06/22/23 07/05/24 History Dapagliflozin Propanediol [Farxiga] 5 mg PO DAILY 03/16/24 07/05/24 History Dulaglutide [Trulicity] 3 mg SQ WE 03/16/24 07/05/24 History Insulin Lispro [humaLOG Kwikpen] See Protocol SQ AC-TID 03/16/24 07/05/24 History Ipratropium-Albuterol Nebulize 3 ml INHALATION RT-TID 03/16/24 07/05/24 History [Duoneb 0.5 mg-3 mg/3 ml Soln] Isosorbide Mononitrate ER [Imdur] 30 mg PO DAILY 03/16/24 07/05/24 History Mag Hydrox/Al Hydrox/Simeth 30 ml PO QID PRN 2 Days #180 ml 05/22/24 07/05/24 Rx [Maalox] Spiriva Respimat 1.25mcg/Actuation 2 puff INHALATION RT-DAILY 05/24/24 07/05/24 History Mist Albuterol Nebulized [Ventolin 2.5 mg INHALATION RT-Q6H PRN 05/31/24 07/05/24 History Nebulized] Ondansetron Odt [Zofran ODT] 4 mg PO Q8HR PRN 05/31/24 07/05/24 History lisinopriL [Zestril] 10 mg PO DAILY 05/31/24 07/05/24 History Cholestyramine (with Sugar) 4 gm PO BID #60 packet 06/03/24 07/05/24 Rx [Questran Packet] Anidulafungin [Eraxis] 100 mg IVPB DAILY #7 each 07/02/24 07/05/24 Rx Ertapenem [INVanz] 1 gm IVPB Q24H #7 each 07/02/24 07/05/24 Rx Metoprolol Tartrate [Lopressor] 12.5 mg PO BID #60 tab 07/02/24 07/05/24 Rx HYDROcodone/APAP 10-325MG [[place] tab PO Q6HR PRN 07/05/24 07/05/24 History 10-325] Allergies Allergy/AdvReac Type Severity Reaction Status Date / Time No Known Allergies Allergy Verified 07/05/24 11:05 Physical Exam Vitals: Vital Signs Temp Pulse Pulse Resp BP BP Pulse Ox 07/05/24 09:38 82 17 07/05/24 06:53 98.2 F 82 17 126/79 93 L 07/05/24 04:02 98.4 F 83 17 152/82 97 07/05/24 03:20 18 116/76 07/05/24 01:11 85 18 112/56 07/04/24 22:03 98.3 F 94 20 134/98 95 Intake and Output 07/04/24 07/05/24 07/05/24 22:59 06:59 14:59 Intake Total 1060 Balance 1060 Intake: Oral 1060 Other: # Voids 5 # Bowel Movements 2 Weight 90.718 kg 90.718 kg GENERAL DESCRIPTION: Middle-aged male lying in bed, no distress. No tachypnea or accessory muscle of respiration use. HEENT: Shows Pallor , no scleral icterus. Oral mucous membrane is dry. No pharyngeal erythema or thrush NECK: Trachea central, no thyromegaly. LUNGS: Unlabored breathing. Clear to auscultation anteriorly. No wheeze or crackle. HEART: S1, S2, regular rate and rhythm. No loud murmur ABDOMEN: Soft, mild distention and tenderness EXTREMITIES: No edema of feet. SKIN: No rash, no masses palpable. NEUROLOGICAL: The patient is awake, alert, oriented x3, mood and affect normal. Results CBC & Chem 7: 07/06/24 03:46 07/06/24 03:46 Labs: Abnormal Lab Results - Last 24 Hours (Table) 07/04/24 07/04/24 07/05/24 Range/Units 22:06 22:06 03:49 RBC 3.18 L 3.15 L (3.80-5.40) m/uL Hgb 8.8 L 8.8 L (11.4-16.0) gm/dL Hct 29.5 L 29.7 L (34.0-46.0) % MCHC 29.8 L 29.7 L (31.0-37.0) g/dL RDW 21.0 H 21.2 H (11.5-15.5) % Plt Count 582 H 509 H (150-450) k/uL Eosinophils # 0.8 H 0.9 H (0-0.7) k/uL Potassium 3.1 L (3.5-5.1) mmol/L Chloride 109 H (98-107) mmol/L BUN 5 L (7-17) mg/dL Glucose 123 H (74-99) mg/dL AST 157 H (14-36) U/L ALT 94 H (4-34) U/L Alkaline Phosphatase 395 H (38-126) U/L Total Protein 5.8 L (6.3-8.2) g/dL Albumin 3.2 L (3.5-5.0) g/dL 07/05/24 Range/Units 03:49 RBC (3.80-5.40) m/uL Hgb (11.4-16.0) gm/dL Hct (34.0-46.0) % MCHC (31.0-37.0) g/dL RDW (11.5-15.5) % Plt Count (150-450) k/uL Eosinophils # (0-0.7) k/uL Potassium (3.5-5.1) mmol/L Chloride 112 H (98-107) mmol/L BUN 4 L (7-17) mg/dL Glucose 111 H (74-99) mg/dL AST 154 H (14-36) U/L ALT 95 H (4-34) U/L Alkaline Phosphatase 349 H (38-126) U/L Total Protein 5.3 L (6.3-8.2) g/dL Albumin 2.9 L (3.5-5.0) g/dL Assessment and Plan (1) Intra-abdominal abscess Current Visit: Yes Status: Acute Code(s): K65.1 - PERITONEAL ABSCESS SNOMED Code(s): 26181951 Plan: 1patient with presented to hospital with intractable nausea and vomiting in this patient who recently did have a prolonged complicated stay requiring abdominal surgery x 2 with admission for intermittently abscess secondary for bowel obstruction and the second surgery abdominal culture did grew Nilda albicans and glabrata for the patient was getting outpatient Eraxis and Invanz patient did have a CT abdomen pelvis did not show any abnormal fluid collection suggestive of abscess with a question of possible ileus versus symptoms related to gallbladder as there was evidence of sludge and the patient have elevated liver enzymes 2-we will restart the patient on Invanz and Eraxis while inpatient and while waiting for the workup completed and patient condition stabilized 3-check hepatitis panel We will follow on clinical condition and cultures to further adjust medication if needed Thank you for this consultation we will follow the patient along with you Dictation was produced using [employer] dictation software. please excuse any grammatical, word or spelling errors. Time with Patient: Greater than 30
[2024-07-06] MEDS: ANIDULAFUNGIN 100 MG in SODIUM CHLORIDE 0.9% 100 ML IVPB SCH (10:41)
[2024-07-06 11:21] LABS: Glucose,Whole Blood 99 mg/dL (70-110)
--- NOTE | 2024-07-06 11:28 | P.PN ---
Progress Note - Text Progress Note Date: 07/06/24 NAEO. Patient resting comfortably. Tolerating diet. Having bowel function VSS General-NAD Abdomen-soft, NTND Ext-no edema ASSESSMENT: 1. Abdominal ileus likely contributing to patient's intractable nausea and vomiting 2. Hematemesis likely due to the intractable nausea and vomiting. Now resolved. Hemoglobin stable 3. Colitis with intramural wall absces status post diagnostic laparoscopy converted to open with ileocecectomy on 06/14/2024 4. Small bowel obstruction secondary to adhesions and inflammation status post exploratory laparotomy with extensive lysis of adhesions and small bowel resection x 2 and proximal right colon resection on 06/22/24 5. Weakness PLAN: -Advance diet as tolerated -Continue IV fluid hydration -Continue antiemetics as needed -Consult PT OT and manager case management for possible ECF placement -No surgical intervention planned Freeman Portillo DO [facility] [phone]
--- NOTE | 2024-07-06 14:38 | P.PN ---
Subjective Progress Note Date: 07/06/24 Principal diagnosis: Reason for follow-up is intra-abdominal infection and elevated liver enzymes Patient is a 53-year-old female with a past medical history of kidney for diabetes mellitus hypertension [place] osteoarthritis, who recently did have a prolonged hospital stay in this patient who did have intramural abscess and the patient is status post ileocecectomy subsequently was taken back to the OR for exploratory laparotomy with lysis of adhesion small bowel resection and proximal right colon resection for small bowel obstruction abdominal culture at that time did grew Nilda albicans as well as Nilda glabrata patient was stabilized and discharge home on IV Invanz and Eraxis, patient presented to the hospital concerning for intractable nausea and vomiting, patient did have CT abdominal pelvis did not show any perforation abscess. On today's evaluation that is 07/06/2024,the patient denies any fever or any chills, patient is breathing comfortably on room air, the patient denies chest pain shortness of breath and no significant cough, patient did have improvement of nausea no further vomiting abdominal pain has decreased and did have a bowel movement. Patient white count 6.85 creatinine 0.6 slight worsening of the liver enzymes Objective - Vital Signs Vital signs: Vital Signs Temp 97.5 F L 07/06/24 06:56 Pulse 105 H 07/06/24 06:56 Resp 20 07/06/24 06:56 BP 133/81 07/06/24 06:56 Pulse Ox 97 07/06/24 06:56 FiO2 Intake & Output 07/05/24 07/06/24 07/06/24 18:59 06:59 18:59 Intake Total 700 Balance 700 Intake: Intake, IV Titration 700 Amount Anidulafungin 200 mg In 200 Sodium Chloride 0.9% 200 ml @ 84 mls/hr IVPB ONCE ONE Rx#:[id number] Ertapenem 1 gm In Sodium 50 Chloride 0.9% 50 ml @ 100 mls/hr IVPB DAILY [facility] Rx #:[id number] Sodium Chloride 0.9% 1, 450 000 ml @ 75 mls/hr IV . [id number] [facility] Rx#:[id number] Other: # Voids 1 4 - Exam GENERAL DESCRIPTION: Middle-age female lying in bed in no distress RESPIRATORY SYSTEM: Unlabored breathing , decreased breath sounds at bases HEART: S1 S2 regular rate and rhythm , ABDOMEN: Soft , no tenderness EXTREMITIES: No edema feet - Labs CBC & Chem 7: 07/06/24 03:46 07/06/24 03:46 Labs: Abnormal Lab Results - Last 24 Hours (Table) 07/06/24 07/06/24 Range/Units 03:46 03:46 RBC 2.86 L (4.10-5.20) X 10*6/uL Hgb 7.9 L (12.0-15.0) g/dL Hct 26.6 L (37.2-46.3) % MCHC 29.7 L (32.0-37.0) g/dL RDW 22.1 H (11.5-14.5) % Plt Count 495 H (140-440) X 10*3/uL Chloride 110 H (96-109) mmol/L BUN <3.5 L (9.0-27.0) mg/dL BUN/Creatinine Ratio <5.83 L (12.00-20.00) Ratio Calcium 8.1 L (8.7-10.3) mg/dL AST 243 H (13-35) U/L ALT 140 H (8-44) U/L Alkaline Phosphatase 320 H (41-126) U/L Total Protein 4.8 L (6.2-8.2) g/dL Albumin 2.9 L (3.8-4.9) g/dL Albumin/Globulin Ratio 1.53 L (1.60-3.17) Ratio Assessment and Plan (1) Intra-abdominal abscess Current Visit: Yes Status: Acute Code(s): K65.1 - PERITONEAL ABSCESS SNOMED Code(s): 94632162 (2) Hepatitis Current Visit: Yes Status: Acute Code(s): K75.9 - INFLAMMATORY LIVER DISEASE, UNSPECIFIED SNOMED Code(s): 695828597 Plan: 1patient with presented to hospital with intractable nausea and vomiting in this patient who recently did have a prolonged complicated stay requiring abdominal surgery x 2 with admission for intermittently abscess secondary for bowel obstruction and the second surgery abdominal culture did grew Nilda albicans and glabrata for the patient was getting outpatient Eraxis and Invanz patient did have a CT abdomen pelvis did not show any abnormal fluid collection suggestive of abscess with a question of possible ileus versus symptoms related to gallbladder as there was evidence of sludge and the patient have elevated liver enzymes 2-patient noted to have slight worsening of the liver enzymes which could be related to the antibiotic/antifungal as the patient does not look toxic CT abdominal pelvis did not show any abscess we will go ahead and discontinue both Invanz and Eraxis and monitor the patient closely off antibiotic waiting for hepatitis panel Dictation was produced using [employer] dictation software. please excuse any grammatical, word or spelling errors. Time with Patient: Less than 30
[2024-07-06 15:31] LABS: Hepatitis A Antibody IgM Nonreactive (Nonreactive); Hepatitis B Core IgM Nonreactive (Nonreactive); Hepatitis B Surface Antigen Nonreactive (Nonreactive); Hepatitis C IgG Antibody Nonreactive (Nonreactive)
[2024-07-06 16:21] LABS: Glucose,Whole Blood 113 mg/dL (70-110)
[2024-07-06 21:00] LABS: Glucose,Whole Blood 125 mg/dL (70-110)
[2024-07-07 06:50] LABS: Glucose,Whole Blood 117 mg/dL (70-110)
[2024-07-07 09:54] LABS: Basophils # (A) 0.04 X 10*3/uL (0.00-0.10); Basophils % (A) 0.5 %; Eosinophils # (A) 0.59 X 10*3/uL (0.04-0.35); Eosinophils % (A) 7.8 %; HCT 28.3 % (37.2-46.3); HGB 8.4 g/dL (12.0-15.0); Lymphocytes # (A) 1.82 X 10*3/uL (0.90-5.00); Lymphocytes % (A) 24.1 %; MCH 27.8 pg (27.0-32.0); MCHC 29.7 g/dL (32.0-37.0); MCV 93.7 FL (80.0-97.0); Mean Platelet Volume 11.3 FL (9.5-12.2); Monocytes # (A) 0.55 X 10*3/uL (0.20-1.00); Monocytes % (A) 7.3 %; NRBC Per 100 WBC 0 X 10*3/uL (0.00-0.01); Neutrophils # (A) 4.52 X 10*3/uL (1.80-7.70); Neutrophils % (A) 59.9 %; Platelet Count 534 X 10*3/uL (140-440); RBC 3.02 X 10*6/uL (4.10-5.20); RDW 21.6 % (11.5-14.5); WBC 7.55 X 10*3/uL (4.50-10.00)
[2024-07-07 10:12] LABS: ALT 160 U/L (8-44); AST 218 U/L (13-35); Albumin/Globulin Ratio 1.67 Ratio (1.60-3.17); Alkaline Phosphatase 300 U/L (41-126); BUN/Creat Ratio 5.57 Ratio (12.00-20.00); Blood Urea Nitrogen 3.9 mg/dL (9.0-27.0); Calcium 8.6 mg/dL (8.7-10.3); Carbon Dioxide 22.4 mmol/L (21.6-31.8); Chloride 110 mmol/L (96-109); Globulin 1.8 g/dL (1.6-3.3); Glucose 107 mg/dL (70-110); Potassium 3.7 mmol/L (3.5-5.5); Sodium 143 mmol/L (135-145); Total Bilirubin 0.3 mg/dL (0.3-1.2); Total Protein 4.8 g/dL (6.2-8.2)
[2024-07-07 11:27] LABS: Glucose,Whole Blood 113 mg/dL (70-110)
--- NOTE | 2024-07-07 13:02 | P.PN ---
Subjective Progress Note Date: 07/07/24 HPI: 53-year-old female with diabetes, hypertension, COPD, CABG with multiple stents most recently in November 2018 maintained on aspirin and Plavix presents with complaints of worsening nausea and vomiting. Of note this patient was recently discharged from this facility on 07/02 after undergoing a open ilioc ecectomy with drain placement. Patient reports when she got home from the hospital she was barely able to tolerate any food. She was able to take a bite or 2 of the sandwich and eat some Jell-O but nothing more. Patient also reports that she was vomiting blood, when asked about the quantity she says about 2 cups. Patient reports if it was up to her she would not of come back to the hospital. Patient reports her family pushed her to return to the hospital after the symptoms and episodes of vomiting blood happened. Patient reports that since she has been at the hospital she has not vomited again. Patient admits to diarrhea, weakness, nausea, and pelvic pain. Initial lab work from the ER was significant for WBC 8.5, hemoglobin 8.8, MCV 98.7, sodium 139, potassium 3.1, glucose 123, AST 157, ALT 94, alkaline phosphatase 295, amylase 39, and lipase 25. EKG on 07/03 showed heart rate of 56 bpm, no ST segment elevation or depression seen, no T-wave inversions seen. Sinus bradycardia. ER CT ABD: Interval removal of the previously demonstrated intra-abdominal catheter. Decreased postoperative bowel dilation with residual top normal caliber bowel with air-fluid levels. Minimal free fluid. No abdominal collection. Fluid and infiltration with midline ventral incision scar suggesting interval surgery. Otherwise no significant interval change. ER gallbladder ultrasound: Possible trace gallbladder sludge. Subjective: 07/06/2024: Patient seen at bedside. No significant overnight events. Patient reports she is feeling better, was able to eat oatmeal this morning without vomiting. 07/07. Patient seen and examined. Complaining abdominal cramps. Had couple of episodes of diarrhea overnight. Physical exam GENERAL: The patient is alert and oriented x3, not in any acute distress. Well developed, well nourished. HEENT: Pupils are round and equally reacting to light. EOMI. No scleral icterus. No conjunctival pallor. Normocephalic, atraumatic. No pharyngeal erythema. No t hyromegaly. CARDIOVASCULAR: S1 and S2 present. No murmurs, rubs, or gallops. PULMONARY: Chest is clear to auscultation, no wheezing or crackles. ABDOMEN: Soft, nontender, nondistended, laparotomy surgical incision seen. MUSCULOSKELETAL: No joint swelling or deformity. EXTREMITIES: No cyanosis, clubbing, or pedal edema. NEUROLOGICAL: Gross neurological examination did not reveal any focal deficits. Imaging: No new imaging. Assessment:53-year-old female with diabetes, hypertension, COPD, CABG with multiple stents most recently in November 2018 maintained on aspirin and Plavix presents with complaints of worsening nausea and vomiting. Patient recently here for abdominal surgery, current symptoms likely secondary to postoperative pain. Plan: Active: #Colitis with intramural wall abscess status post open ileocecectomy with drain placement: Postop complication (infection versus bleed versus expected postop pain) CT abdomen showed no free fluid or abdominal collection. Continue pain management Eraxis and ertapenem discontinued secondary to elevated LFTs ID following #Transaminitis: AST 243, ALT 140 today, previously AST 157 and ALT 94 (07/04) Could be secondary to drugs, currently off statin and antibiotic Continue IV fluids Continue to monitor #Hypokalemia: Monitor BMP #Anemia: Likely in the setting of recent surgery and recent hemoptysis Monitor CBC Chronic: #Diabetes mellitus type 2: Continue sliding scale Accu-Cheks ACHS #Hypertension: Continue home medication #Hyperlipidemia: Continue home medication #COPD: Continue DuoNeb, Symbicort, and Ventolin as needed #History of CABG and stents: Continue aspirin #Anxiety: Continue Xanax as needed. Objective - Vital Signs Vital signs: Vital Signs Temp 97.8 F 07/07/24 07:20 Pulse 77 07/07/24 07:20 Resp 18 07/07/24 07:20 BP 119/80 07/07/24 07:20 Pulse Ox 94 L 07/07/24 07:20 FiO2 Intake & Output 07/06/24 07/07/24 07/07/24 18:59 06:59 18:59 Intake Total 700 Balance 700 Intake: Intake, IV Titration 700 Amount Anidulafungin 200 mg In 200 Sodium Chloride 0.9% 200 ml @ 84 mls/hr IVPB ONCE ONE Rx#:[id number] Ertapenem 1 gm In Sodium 50 Chloride 0.9% 50 ml @ 100 mls/hr IVPB DAILY [facility] Rx #:[id number] Sodium Chloride 0.9% 1, 450 000 ml @ 75 mls/hr IV . [id number] [facility] Rx#:[id number] Other: # Voids 3 - Labs CBC & Chem 7: 07/07/24 04:53 07/07/24 04:53 Labs: Abnormal Lab Results - Last 24 Hours (Table) 07/06/24 07/06/24 07/07/24 Range/Units 16:20 20:58 04:53 RBC 3.02 L (4.10-5.20) X 10*6/uL Hgb 8.4 L (12.0-15.0) g/dL Hct 28.3 L (37.2-46.3) % MCHC 29.7 L (32.0-37.0) g/dL RDW 21.6 H (11.5-14.5) % Plt Count 534 H (140-440) X 10*3/uL Eosinophils # 0.59 H (0.04-0.35) X 10*3/uL Chloride (96-109) mmol/L BUN (9.0-27.0) mg/dL BUN/Creatinine Ratio (12.00-20.00) Ratio POC Glucose (mg/dL) 113 H 125 H (70-110) mg/dL Calcium (8.7-10.3) mg/dL AST (13-35) U/L ALT (8-44) U/L Alkaline Phosphatase (41-126) U/L C-Reactive Protein (0.00-0.80) mg/dL Total Protein (6.2-8.2) g/dL Albumin (3.8-4.9) g/dL 07/07/24 07/07/24 07/07/24 Range/Units 04:53 06:49 11:26 RBC (4.10-5.20) X 10*6/uL Hgb (12.0-15.0) g/dL Hct (37.2-46.3) % MCHC (32.0-37.0) g/dL RDW (11.5-14.5) % Plt Count (140-440) X 10*3/uL Eosinophils # (0.04-0.35) X 10*3/uL Chloride 110 H (96-109) mmol/L BUN 3.9 L (9.0-27.0) mg/dL BUN/Creatinine Ratio 5.57 L (12.00-20.00) Ratio POC Glucose (mg/dL) 117 H 113 H (70-110) mg/dL Calcium 8.6 L (8.7-10.3) mg/dL AST 218 H (13-35) U/L ALT 160 H (8-44) U/L Alkaline Phosphatase 300 H (41-126) U/L C-Reactive Protein 1.50 H (0.00-0.80) mg/dL Total Protein 4.8 L (6.2-8.2) g/dL Albumin 3.0 L (3.8-4.9) g/dL
--- NOTE | 2024-07-07 13:36 | P.PN ---
Progress Note - Text Progress Note Date: 07/07/24 Patient having some crampy abdominal pain and diarrhea. Denies nausea and vomiting. VSS General-NAD Abdomen-soft, NTND Ext-no edema ASSESSMENT: 1. Abdominal ileus likely contributing to patient's intractable nausea and vomiting 2. Hematemesis likely due to the intractable nausea and vomiting. Now resolved. Hemoglobin stable 3. Colitis with intramural wall absces status post diagnostic laparoscopy converted to open with ileocecectomy on 06/14/2024 4. Small bowel obstruction secondary to adhesions and inflammation status post exploratory laparotomy with extensive lysis of adhesions and small bowel resection x 2 and proximal right colon resection on 06/22/24 5. Weakness PLAN: -Advance diet as tolerated -Continue IV fluid hydration -Continue antiemetics as needed -Consult PT OT and disease case manager rn for possible ECF placement -No surgical intervention planned Freeman Portillo DO [facility] [phone]
--- NOTE | 2024-07-07 16:32 | P.PN ---
Subjective Progress Note Date: 07/07/24 Principal diagnosis: Reason for follow-up is intra-abdominal infection and elevated liver enzymes Patient is a 53-year-old female with a past medical history of kidney for diabetes mellitus hypertension MD osteoarthritis, who recently did have a prolonged hospital stay in this patient who did have intramural abscess and the patient is status post ileocecectomy subsequently was taken back to the OR for exploratory laparotomy with lysis of adhesion small bowel resection and proximal right colon resection for small bowel obstruction abdominal culture at that time did grew Nilda albicans as well as Nilda glabrata patient was stabilized and discharge home on IV Invanz and Eraxis, patient presented to the hospital concerning for intractable nausea and vomiting, patient did have CT abdominal pelvis did not show any perforation abscess. On today's evaluation that is 07/07/2024,the patient remains to be afebrile, patient is on room air not requiring supplemental oxygen and denies any shortness of breath no chest pain or cough.Patient denies having any nausea or vomiting, abdominal pain has decreased in intensity and did have stool output. The patient white count 7.55 liver enzymes are trending down Objective - Vital Signs Vital signs: Vital Signs Temp 97.8 F 07/07/24 07:20 Pulse 77 07/07/24 07:20 Resp 18 07/07/24 07:20 BP 119/80 07/07/24 07:20 Pulse Ox 94 L 07/07/24 07:20 FiO2 Intake & Output 07/06/24 07/07/24 07/07/24 18:59 06:59 18:59 Intake Total 700 Balance 700 Intake: Intake, IV Titration 700 Amount Anidulafungin 200 mg In 200 Sodium Chloride 0.9% 200 ml @ 84 mls/hr IVPB ONCE ONE Rx#:[id number] Ertapenem 1 gm In Sodium 50 Chloride 0.9% 50 ml @ 100 mls/hr IVPB DAILY [facility] Rx #:[id number] Sodium Chloride 0.9% 1, 450 000 ml @ 75 mls/hr IV . [id number] [facility] Rx#:[id number] Other: # Voids 3 - Exam GENERAL DESCRIPTION: Middle-age female lying in bed in no distress RESPIRATORY SYSTEM: Unlabored breathing , decreased breath sounds at bases HEART: S1 S2 regular rate and rhythm , ABDOMEN: Soft , no tenderness EXTREMITIES: No edema feet - Labs CBC & Chem 7: 07/07/24 04:53 07/07/24 04:53 Labs: Abnormal Lab Results - Last 24 Hours (Table) 07/06/24 07/06/24 07/07/24 Range/Units 16:20 20:58 04:53 RBC 3.02 L (4.10-5.20) X 10*6/uL Hgb 8.4 L (12.0-15.0) g/dL Hct 28.3 L (37.2-46.3) % MCHC 29.7 L (32.0-37.0) g/dL RDW 21.6 H (11.5-14.5) % Plt Count 534 H (140-440) X 10*3/uL Eosinophils # 0.59 H (0.04-0.35) X 10*3/uL Chloride (96-109) mmol/L BUN (9.0-27.0) mg/dL BUN/Creatinine Ratio (12.00-20.00) Ratio POC Glucose (mg/dL) 113 H 125 H (70-110) mg/dL Calcium (8.7-10.3) mg/dL AST (13-35) U/L ALT (8-44) U/L Alkaline Phosphatase (41-126) U/L C-Reactive Protein (0.00-0.80) mg/dL Total Protein (6.2-8.2) g/dL Albumin (3.8-4.9) g/dL 07/07/24 07/07/24 07/07/24 Range/Units 04:53 06:49 11:26 RBC (4.10-5.20) X 10*6/uL Hgb (12.0-15.0) g/dL Hct (37.2-46.3) % MCHC (32.0-37.0) g/dL RDW (11.5-14.5) % Plt Count (140-440) X 10*3/uL Eosinophils # (0.04-0.35) X 10*3/uL Chloride 110 H (96-109) mmol/L BUN 3.9 L (9.0-27.0) mg/dL BUN/Creatinine Ratio 5.57 L (12.00-20.00) Ratio POC Glucose (mg/dL) 117 H 113 H (70-110) mg/dL Calcium 8.6 L (8.7-10.3) mg/dL AST 218 H (13-35) U/L ALT 160 H (8-44) U/L Alkaline Phosphatase 300 H (41-126) U/L C-Reactive Protein 1.50 H (0.00-0.80) mg/dL Total Protein 4.8 L (6.2-8.2) g/dL Albumin 3.0 L (3.8-4.9) g/dL Assessment and Plan (1) Intra-abdominal abscess Current Visit: Yes Status: Acute Code(s): K65.1 - PERITONEAL ABSCESS SNOMED Code(s): 37628173 (2) Hepatitis Current Visit: Yes Status: Acute Code(s): K75.9 - INFLAMMATORY LIVER DISEASE, UNSPECIFIED SNOMED Code(s): 461349578 Plan: 1patient with presented to hospital with intractable nausea and vomiting in this patient who recently did have a prolonged complicated stay requiring abdominal surgery x 2 with admission for intermittently abscess secondary for bowel obstruction and the second surgery abdominal culture did grew Nilda albicans and glabrata for the patient was getting outpatient Eraxis and Invanz patient did have a CT abdomen pelvis did not show any abnormal fluid collection suggestive of abscess with a question of possible ileus versus symptoms related to gallbladder as there was evidence of sludge and the patient have elevated liver enzymes 2-patient liver enzymes are trending down after discontinuation of the Invanz and Eraxis will monitor her clinical course closely off antibiotic and antifungal at this point Dictation was produced using [employer] dictation software. please excuse any grammatical, word or spelling errors.
[2024-07-07 16:36] LABS: Glucose,Whole Blood 89 mg/dL (70-110)
[2024-07-07 21:25] LABS: Glucose,Whole Blood 92 mg/dL (70-110)
[2024-07-08 06:50] LABS: Glucose,Whole Blood 88 mg/dL (70-110)
[2024-07-08 10:51] LABS: Anisocytosis Moderate; HCT 31.2 % (34.0-46.0); HGB 9.5 gm/dL (11.4-16.0); Hypochromasia Marked; MCH 28.2 pg (25.0-35.0); MCHC 30.5 g/dL (31.0-37.0); MCV 92.2 fL (80.0-100.0); Macrocytosis Slight; Mean Platelet Volume 8.7; Platelet Count 554 k/uL (150-450); RBC 3.38 m/uL (3.80-5.40)
[2024-07-08 10:54] LABS: ALT 164 U/L (4-34); AST 208 U/L (14-36); African American GFR (CKD) >90 (>60 ml/min/1.73 sqM); Albumin 3.4 g/dL (3.5-5.0); Albumin/Globulin Ratio 1.4; Alkaline Phosphatase 259 U/L (38-126); Anion Gap 5 mmol/L; Blood Urea Nitrogen 4 mg/dL (7-17); C Reactive Protein 1.7 mg/dL (<1.0); Calcium 9.2 mg/dL (8.4-10.2); Carbon Dioxide 23 mmol/L (22-30); Chloride 113 mmol/L (98-107); Globulin 2.5 g/dL; Glucose 79 mg/dL (74-99); Non-African American GFR(CKD) >90 (>60 ml/min/1.73 sqM); Sodium 141 mmol/L (137-145); Total Bilirubin 0.6 mg/dL (0.2-1.3); Total Protein 5.9 g/dL (6.3-8.2)
[2024-07-08 11:25] LABS: Glucose,Whole Blood 105 mg/dL (70-110)
[2024-07-08 11:29] LABS: Eosinophils # (M) 1.12 k/uL (0-0.7); Lymphocytes # (M) 2.03 k/uL (1.0-4.8); Monocytes # (M) 0.35 k/uL (0-1.0); Neutrophils # (M) 3.57 k/uL (1.3-7.7); Neutrophils % (M) 51 %; Nucleated Red Blood Cells 0 /100 WBC (0-0); Total Cells Counted 200
[2024-07-08 11:31] LABS: Polychromasia Present; Toxic Vacuolation Present
[2024-07-08 11:32] LABS: Target Cells Present
[2024-07-08] MEDS: HEPARIN SODIUM,PORCINE 5,000 UNIT/ML 1 ML VIAL SQ SCH (13:12)
--- NOTE | 2024-07-08 13:36 | XR ---
EXAMINATION TYPE: XR chest 1V portable DATE OF EXAM: 07/08/2024 1:09 PM CLINICAL INDICATION: Female, 53 years old with history of atelectasis; [facility] COMPARISON: Chest radiographs from 06/23/2024 TECHNIQUE: XR chest 1V portable Frontal view of the chest. FINDINGS: Lungs/Pleura: Resolution of prior airspace opacity/atelectasis right lung base. There is no evidence of pleural effusion, focal consolidation, or pneumothorax. Pulmonary vascularity: Unremarkable. Heart/mediastinum: Cardiomediastinal silhouette is unremarkable. Musculoskeletal: No acute osseous pathology. Midline sternotomy wires are noted. Other findings: None Lines/Tubes: IMPRESSION: Right lung base atelectasis has resolved. No acute cardiopulmonary disease/process. [facility], , 07/08/2024 1:34 PM
--- NOTE | 2024-07-08 15:12 | P.PN ---
Subjective Progress Note Date: 07/08/24 CHIEF COMPLAINT: Nausea and vomiting HISTORY OF PRESENT ILLNESS: Patient is no longer having nausea or vomiting. She is having flatus and bowel movements. She has been up and ambulating in the hallway independently. She reports her overall pain is better. She is tolerating the full liquids. Afebrile. WBC 7.0 Hgb 9.5 platelets 554 sodium 141 potassium 4.0 creatinine 0.62 LFTs elevated. AST and alk phos are trending down. ALT did go up from 160 to 164. patient currently off of antibiotics. PHYSICAL EXAM: VITAL SIGNS: Reviewed. GENERAL: Well-developed in no acute distress. ABDOMEN: Soft. Nondistended. Nontender. Midline incision site healing. Minimal serous drainage noted distally NEUROLOGIC: Alert and oriented. Cranial nerves II through XII grossly intact. ASSESSMENT: 1. Abdominal ileus likely contributing to patient's intractable nausea and vomiting 2. Hematemesis likely due to the intractable nausea and vomiting. Now resolved. Hemoglobin stable 3. Colitis with intramural wall absces status post diagnostic laparoscopy converted to open with ileocecectomy on 06/14/2024 4. Small bowel obstruction secondary to adhesions and inflammation status post exploratory laparotomy with extensive lysis of adhesions and small bowel resection x 2 and proximal right colon resection on 06/22/24 5. Weakness 6. Elevated LFTs. Possibly medication induced. Patient has no tenderness in the right upper quadrant. Ultrasound did report possible trace gallbladder sludge. PLAN: -Advance diet to low fiber -No surgical intervention planned -Abdominal binder ordered for support -Patient can be discharged from surgical standpoint Physician Computer Hardware Developer note has been reviewed by physician. Signing provider agrees with the documented findings, assessment, and plan of care. Attestation Patient seen and examined at bedside. States she is feeling well. Tolerating diet. Denies any significant abdominal pain. She states that she is ambulating well. At this point, appears that ileus has resolved and patient can advance diet. Patient stable for discharge per surgery. Marga Samuel DO Objective - Vital Signs Vital signs: Vital Signs Temp 98.0 F 07/08/24 06:43 Pulse 79 07/08/24 06:43 Resp 17 07/08/24 06:43 BP 122/82 07/08/24 06:43 Pulse Ox 97 07/08/24 06:43 FiO2 Intake & Output 1007/08/24 07/08/24 18:59 06:59 18:59 Intake Total 1440 Balance 1440 Intake: Oral 1440 Other: Voiding Method Toilet # Voids 4 5 - Labs CBC & Chem 7: 07/08/24 10:23 07/08/24 10:23 Labs: Abnormal Lab Results - Last 24 Hours (Table) 07/08/24 07/08/24 Range/Units 10: 10:23 RBC 3.38 L (3.80-5.40) m/uL Hgb 9.5 L (11.4-16.0) gm/dL Hct 31.2 L (34.0-46.0) % MCHC 30.5 L (31.0-37.0) g/dL RDW 20.0 H (11.5-15.5) % Plt Count 554 H (150-450) k/uL Eosinophils # (Manual) 1.12 H (0-0.7) k/uL Chloride 113 H (98-107) mmol/L BUN 4 L (7-17) mg/dL AST 208 H (14-36) U/L ALT 164 H (4-34) U/L Alkaline Phosphatase 259 H (38-126) U/L C-Reactive Protein 1.7 H (<1.0) mg/dL Total Protein 5.9 L (6.3-8.2) g/dL Albumin 3.4 L (3.5-5.0) g/dL
[2024-07-08 16:32] LABS: Glucose,Whole Blood 88 mg/dL (70-110)
--- NOTE | 2024-07-08 16:58 | P.PN ---
Subjective HPI: 53-year-old female with diabetes, hypertension, COPD, CABG with multiple stents most recently in November 2018 maintained on aspirin and Plavix presents with complaints of worsening nausea and vomiting. Of note this patient was recently discharged from this facility on 07/02 after undergoing a open iliocecectomy with drain placement. Patient reports when she got home from the hospital she was barely able to tolerate any food. She was able to take a bite or 2 of the sandwich and eat some Jell-O but nothing more. Patient also reports that she was vomiting blood, when asked about the quantity she says about 2 cups. Patient reports if it was up to her she would not of come back to the hospital. Patient reports her family pushed her to return to the hospital after the symptoms and episodes of vomiting blood happened. Patient reports that since she has been at the hospital she has not vomited again. Patient admits to diarrhea, weakness, nausea, and pelvic pain. Initial lab work from the ER was significant for WBC 8.5, hemoglobin 8.8, MCV 98.7, sodium 139, potassium 3.1, glucose 123, AST 157, ALT 94, alkaline phosphatase 295, amylase 39, and lipase 25. EKG on 07/03 showed heart rate of 56 bpm, no ST segment elevation or depressi on seen, no T-wave inversions seen. Sinus bradycardia. ER CT ABD: Interval removal of the previously demonstrated intra-abdominal catheter. Decreased postoperative bowel dilation with residual top normal caliber bowel with air- fluid levels. Minimal free fluid. No abdominal collection. Fluid and infiltration with midline ventral incision scar suggesting interval surgery. Otherwise no significant interval change. ER gallbladder ultrasound: Possible trace gallbladder sludge. Subjective: 07/06/2024: Patient seen at bedside. No significant overnight events. Patient reports she is feeling better, was able to eat oatmeal this morning without vomiting. 07/07: Patient seen and examined. Complaining abdominal cramps. Had couple of episodes of diarrhea overnight. 07/08/2024: Patient seen at bedside. No significant overnight events. Patient reports she is tolerating the diet well, still having diarrhea. Physical exam GENERAL: The patient is alert and oriented x3, not in any acute distress. Well developed, well nourished. HEENT: Pupils are round and equally reacting to light. EOMI. No scleral icterus. No conjunctival pallor. Normocephalic, atraumatic. No pharyngeal erythema. No thyromegaly. CARDIOVASCULAR: S1 and S2 present. No murmurs, rubs, or gallops. PULMONARY: Chest is clear to auscultation, no wheezing or crackles. ABDOMEN: Soft, nontender, nondistended, laparotomy surgical incision seen. MUSCULOSKELETAL: No joint swelling or deformity. EXTREMITIES: No cyanosis, clubbing, or pedal edema. NEUROLOGICAL: Gross neurological examination did not reveal any focal deficits. Imaging: No new imaging. Assessment:53-year-old female with diabetes, hypertension, COPD, CABG with multiple stents most recently in November 2018 maintained on aspirin and Plavix presents with complaints of worsening nausea and vomiting. Patient recently here for abdominal surgery, current symptoms likely secondary to postoperative pain. Plan: Active: #Colitis with intramural wall abscess status post open ileocecectomy with drain placement: Postop complication (infection versus bleed versus expected postop pain) CT abdomen showed no free fluid or abdominal collection. Continue pain management Eraxis and ertapenem discontinued secondary to elevated LFTs ID following #Transaminitis: AST 208, ALT 164 today, previously AST 157 and ALT 94 (07/04) Could be secondary to drugs, currently off statin and antibiotic Continue IV fluids Continue to monitor #Hypokalemia: Monitor BMP #Anemia: Likely in the setting of recent surgery and recent hemoptysis Monitor CBC #Eosinophilia: In the setting of recent hemoptysis (2 cups worth of blood) Potentially eosinophilic esophagitis versus eosinophilic gastroenteritis Should get EGD outpatient for further evaluation Continue to monitor CBC Chronic: #Diabetes mellitus type 2: Continue sliding scale Accu-Cheks ACHS #Hypertension: Continue home medication #Hyperlipidemia: Continue home medication #COPD: Continue DuoNeb, Symbicort, and Ventolin as needed #History of CABG and stents: Continue aspirin #Anxiety: Continue Xanax as needed. Objective - Vital Signs Vital signs: Vital Signs Temp 97.6 F 07/08/24 13:49 Pulse 92 07/08/24 13:49 Resp 17 07/08/24 13:49 BP 117/81 07/08/24 13:49 Pulse Ox 97 07/08/24 13:49 FiO2 Intake & Output 07/07/24 07/08/24 07/08/24 18:59 06:59 18:59 Intake Total 1440 Balance 1440 Intake: Oral 1440 Other: Voiding Method Toilet # Voids 4 5 2 - Labs CBC & Chem 7: 07/08/24 10:23 07/08/24 10:23 Labs: Abnormal Lab Results - Last 24 Hours (Table) 07/08/24 07/08/24 Range/Units 10: 10: RBC 3.38 L (3.80-5.40) m/uL Hgb 9.5 L (11.4-16.0) gm/dL Hct 31.2 L (34.0-46.0) % MCHC 30.5 L (31.0-37.0) g/dL RDW 20.0 H (11.5-15.5) % Plt Count 554 H (150-450) k/uL Eosinophils # (Manual) 1.12 H (0-0.7) k/uL Chloride 113 H (98-107) mmol/L BUN 4 L (7-17) mg/dL AST 208 H (14-36) U/L ALT 164 H (4-34) U/L Alkaline Phosphatase 259 H (38-126) U/L C-Reactive Protein 1.7 H (<1.0) mg/dL Total Protein 5.9 L (6.3-8.2) g/dL Albumin 3.4 L (3.5-5.0) g/dL
[2024-07-08 19:54] LABS: Glucose,Whole Blood 117 mg/dL (70-110)
[2024-07-09 06:36] LABS: Glucose,Whole Blood 100 mg/dL (70-110)
[2024-07-09 09:26] LABS: BUN/Creat Ratio 8.29 Ratio (12.00-20.00); Blood Urea Nitrogen 5.8 mg/dL (9.0-27.0); Calcium 8.6 mg/dL (8.7-10.3); Carbon Dioxide 23.2 mmol/L (21.6-31.8); Chloride 105 mmol/L (96-109); Glucose 107 mg/dL (70-110); Potassium 3.6 mmol/L (3.5-5.5); Sodium 139 mmol/L (135-145)
[2024-07-09 09:29] LABS: Basophils # (A) 0.05 X 10*3/uL (0.00-0.10); Basophils % (A) 0.7 %; Eosinophils # (A) 0.96 X 10*3/uL (0.04-0.35); Eosinophils % (A) 13.2 %; HCT 29.7 % (37.2-46.3); HGB 8.9 g/dL (12.0-15.0); Lymphocytes # (A) 2.72 X 10*3/uL (0.90-5.00); Lymphocytes % (A) 37.5 %; MCH 27.3 pg (27.0-32.0); MCV 91.1 FL (80.0-97.0); Mean Platelet Volume 10.9 FL (9.5-12.2); Monocytes # (A) 0.55 X 10*3/uL (0.20-1.00); Monocytes % (A) 7.6 %; NRBC Per 100 WBC 0 X 10*3/uL (0.00-0.01); Neutrophils # (A) 2.94 X 10*3/uL (1.80-7.70); Neutrophils % (A) 40.6 %; Platelet Count 546 X 10*3/uL (140-440); RBC 3.26 X 10*6/uL (4.10-5.20); RDW 20.6 % (11.5-14.5); WBC 7.25 X 10*3/uL (4.50-10.00)
[2024-07-09 12:12] LABS: Glucose,Whole Blood 93 mg/dL (70-110)
--- NOTE | 2024-07-09 15:29 | P.PN ---
Subjective Progress Note Date: 07/08/24 Principal diagnosis: Reason for follow-up is intra-abdominal infection and elevated liver enzymes Patient is a 53-year-old female with a past medical history of kidney for diabetes mellitus hypertension [place] osteoarthritis, who recently did have a prolonged hospital stay in this patient who did have intramural abscess and the patient is status post ileocecectomy subsequently was taken back to the OR for exploratory laparotomy with lysis of adhesion small bowel resection and proximal right colon resection for small bowel obstruction abdominal culture at that time did grew Nilda albicans as well as Nilda glabrata patient was stabilized and discharge home on IV Invanz and Eraxis, patient presented to the hospital concerning for intractable nausea and vomiting, patient did have CT abdominal pelvis did not show any perforation abscess. On today's evaluation that is 07/08/2024, the patient continues to be afebrile, the patient is on room air and breathing comfortably, the Pt denies having any chest pain or cough, the patient denies having any nausea vomiting abdominal pain has decreased intensity did have a bowel movement. Patient white count 7.0 creatinine is 0.62 liver enzymes are trending down Objective - Vital Signs Vital signs: Vital Signs Temp 98.0 F 07/08/24 06:43 Pulse 79 07/08/24 06:43 Resp 17 07/08/24 06:43 BP 122/82 07/08/24 06:43 Pulse Ox 97 07/08/24 06:43 FiO2 Intake & Output 07/07/24 07/08/24 07/08/24 18:59 06:59 18:59 Intake Total 1440 Balance 1440 Intake: Oral 1440 Other: Voiding Method Toilet # Voids 4 5 - Exam GENERAL DESCRIPTION: Middle-age female lying in bed in no distress RESPIRATORY SYSTEM: Unlabored breathing , decreased breath sounds at bases HEART: S1 S2 regular rate and rhythm , ABDOMEN: Soft , no tenderness EXTREMITIES: No edema feet - Labs CBC & Chem 7: 07/09/24 03:39 07/09/24 03:39 Labs: Abnormal Lab Results - Last 24 Hours (Table) 07/08/24 07/08/24 Range/Units 10:23 10:23 RBC 3.38 L (3.80-5.40) m/uL Hgb 9.5 L (11.4-16.0) gm/dL Hct 31.2 L (34.0-46.0) % MCHC 30.5 L (31.0-37.0) g/dL RDW 20.0 H (11.5-15.5) % Plt Count 554 H (150-450) k/uL Eosinophils # (Manual) 1.12 H (0-0.7) k/uL Chloride 113 H (98-107) mmol/L BUN 4 L (7-17) mg/dL AST 208 H (14-36) U/L ALT 164 H (4-34) U/L Alkaline Phosphatase 259 H (38-126) U/L C-Reactive Protein 1.7 H (<1.0) mg/dL Total Protein 5.9 L (6.3-8.2) g/dL Albumin 3.4 L (3.5-5.0) g/dL Assessment and Plan (1) Intra-abdominal abscess Current Visit: Yes Status: Acute Code(s): K65.1 - PERITONEAL ABSCESS SNOMED Code(s): 40837223 (2) Hepatitis Current Visit: Yes Status: Acute Code(s): K75.9 - INFLAMMATORY LIVER DISEASE, UNSPECIFIED SNOMED Code(s): 252621181 Plan: 1patient with presented to hospital with intractable nausea and vomiting in this patient who recently did have a prolonged complicated stay requiring abdominal surgery x 2 with admission for intermittently abscess secondary for bowel obstruction and the second surgery abdominal culture did grew Nilda albicans and glabrata for the patient was getting outpatient Eraxis and Invanz patient did have a CT abdomen pelvis did not show any abnormal fluid collection suggestive of abscess with a question of possible ileus versus symptoms related to gallbladder as there was evidence of sludge and the patient have elevated liver enzymes 2-patient liver enzymes are trending down after discontinuation of the Invanz and Eraxis and the patient remains to be febrile count has been normal hence we will monitor the patient closely off antibiotic and antifungal Dictation was produced using [employer] dictation software. please excuse any grammatical, word or spelling errors. Time with Patient: Less than 30
--- NOTE | 2024-07-09 15:31 | P.PN ---
Subjective Progress Note Date: 07/09/24 Principal diagnosis: Reason for follow-up is intra-abdominal infection and elevated liver enzymes Patient is a 53-year-old female with a past medical history of kidney for diabetes mellitus hypertension [place] osteoarthritis, who recently did have a prolonged hospital stay in this patient who did have intramural abscess and the patient is status post ileocecectomy subsequently was taken back to the OR for exploratory laparotomy with lysis of adhesion small bowel resection and proximal right colon resection for small bowel obstruction abdominal culture at that time did grew Nilda albicans as well as Nilda glabrata patient was stabilized and discharge home on IV Invanz and Eraxis, patient presented to the hospital concerning for intractable nausea and vomiting, patient did have CT abdominal pelvis did not show any perforation abscess. On today's evaluation that is 07/09/2024, Patient is afebrile patient is currently on room air and denies having any shortness of breath, the patient denies any chest pain or cough, the patient denies any nausea vomiting did not have any abdominal pain and no diarrhea, mention feeling better. The patient white count 7.25 creatinine is 0.7 Objective - Vital Signs Vital signs: Vital Signs Temp 98.0 F 07/09/24 14:00 Pulse 65 07/09/24 14:00 Resp 16 07/09/24 14:00 BP 101/62 07/09/24 14:00 Pulse Ox 97 07/09/24 14:00 FiO2 Intake & Output 07/08/24 07/09/24 07/09/24 18:59 06:59 18:59 Intake Total 720 Balance 720 Intake: Oral 720 Other: Voiding Method Toilet # Voids 2 3 4 - Exam GENERAL DESCRIPTION: Middle-age female lying in bed in no distress RESPIRATORY SYSTEM: Unlabored breathing , decreased breath sounds at bases HEART: S1 S2 regular rate and rhythm , ABDOMEN: Soft , no tenderness EXTREMITIES: No edema feet - Labs CBC & Chem 7: 07/09/24 03:39 07/09/24 03:39 Labs: Abnormal Lab Results - Last 24 Hours (Table) 07/08/24 07/09/24 07/09/24 Range/Units 19:53 03:39 03:39 RBC 3.26 L (4.10-5.20) X 10*6/uL Hgb 8.9 L (12.0-15.0) g/dL Hct 29.7 L (37.2-46.3) % MCHC 30.0 L (32.0-37.0) g/dL RDW 20.6 H (11.5-14.5) % Plt Count 546 H (140-440) X 10*3/uL Eosinophils # 0.96 H (0.04-0.35) X 10*3/uL BUN 5.8 L (9.0-27.0) mg/dL BUN/Creatinine Ratio 8.29 L (12.00-20.00) Ratio POC Glucose (mg/dL) 117 H (70-110) mg/dL Calcium 8.6 L (8.7-10.3) mg/dL Assessment and Plan (1) Intra-abdominal abscess Current Visit: Yes Status: Acute Code(s): K65.1 - PERITONEAL ABSCESS SNOMED Code(s): 07658444 (2) Hepatitis Current Visit: Yes Status: Acute Code(s): K75.9 - INFLAMMATORY LIVER DISEASE, UNSPECIFIED SNOMED Code(s): 774593619 Plan: 1patient with presented to hospital with intractable nausea and vomiting in is patient who recently did have a prolonged complicated stay requiring abdominal surgery x 2 with admission for intermittently abscess secondary for bowel obstruction and the second surgery abdominal culture did grew Nilda albicans and glabrata for the patient was getting outpatient Eraxis and Invanz patient did have a CT abdomen pelvis did not show any abnormal fluid collection suggestive of abscess with a question of possible ileus versus symptoms related to gallbladder as there was evidence of sludge and the patient have elevated liver enzymes 2-patient liver enzymes are trending down after discontinuation of the Invanz and Eraxis, and the patient remains to be afebrile and the white count has been normal meaning adequate treatment of underlying infection and will be no need for any antibiotic on discharge recommend to discontinue PICC line at the time of discharge Dictation was produced using [employer] dictation software. please excuse any grammatical, word or spelling errors. Time with Patient: Less than 30
--- NOTE | 2024-07-09 15:32 | P.PN ---
Subjective Progress Note Date: 07/09/24 CHIEF COMPLAINT: Nausea and vomiting HISTORY OF PRESENT ILLNESS: Patient would like to be discharged. She is having bowel movements. Denies any nausea or vomiting. She has been up and ambulating. Her pain is controlled. She is tolerating a low fiber diet. Afebrile. WBC 7.25 Hgb 8.9 platelets 546 PHYSICAL EXAM: VITAL SIGNS: Reviewed. GENERAL: Well-developed in no acute distress. ABDOMEN: Soft. Nondistended. Nontender. Midline incision site healing. Minimal serous drainage noted distally NEUROLOGIC: Alert and oriented. Cranial nerves II through XII grossly intact. ASSESSMENT: 1. Abdominal ileus likely contributing to patient's intractable nausea and vomiting. Now improved 2. Hematemesis likely due to the intractable nausea and vomiting. Now resolved. Hemoglobin stable 3. Colitis with intramural wall absces status post diagnostic laparoscopy converted to open with ileocecectomy on 06/14/2024 4. Small bowel obstruction secondary to adhesions and inflammation status post exploratory laparotomy with extensive lysis of adhesions and small bowel resection x 2 and proximal right colon resection on 06/22/24 5. Weakness 6. Elevated LFTs. Possibly medication induced. Patient has no tenderness in the right upper quadrant. Ultrasound did report possible trace gallbladder s ludge. PLAN: -Patient can be discharge from surgical standpoint -Recommend to follow-up LFTs outpatient -Continue low fiber diet Physician Bottle Feeder note has been reviewed by physician. Signing provider agrees with the documented findings, assessment, and plan of care. Objective - Vital Signs Vital signs: Vital Signs Temp 98.0 F 07/09/24 14:00 Pulse 65 07/09/24 14:00 Resp 16 07/09/24 14:00 BP 101/62 07/09/24 14:00 Pulse Ox 97 07/09/24 14:00 FiO2 Intake & Output 07/08/24 07/09/24 07/09/24 18:59 06:59 18:59 Intake Total 720 Balance 720 Intake: Oral 720 Other: Voiding Method Toilet # Voids 2 3 4 - Labs CBC & Chem 7: 07/09/24 03:39 07/09/24 03:39 Labs: Abnormal Lab Results - Last 24 Hours (Table) 07/08/24 07/09/24 07/09/24 Range/Units 19:53 03:39 03:39 RBC 3.26 L (4.10-5.20) X 10*6/uL Hgb 8.9 L (12.0-15.0) g/dL Hct 29.7 L (37.2-46.3) % MCHC 30.0 L (32.0-37.0) g/dL RDW 20.6 H (11.5-14.5) % Plt Count 546 H (140-440) X 10*3/uL Eosinophils # 0.96 H (0.04-0.35) X 10*3/uL BUN 5.8 L (9.0-27.0) mg/dL BUN/Creatinine Ratio 8.29 L (12.00-20.00) Ratio POC Glucose (mg/dL) 117 H (70-110) mg/dL Calcium 8.6 L (8.7-10.3) mg/dL Assessment and Plan Assessment: stable for discharge. patient had nose bleed causing nausea and vomiting. Tolerating diet and feels better. Time with Patient: Less than 30
[2024-07-09 16:49] LABS: Glucose,Whole Blood 110 mg/dL (70-110)
[2024-07-09 21:30] LABS: Glucose,Whole Blood 116 mg/dL (70-110)
--- NOTE | 2024-07-09 21:35 | PN ---
PROGRESS NOTE DATE OF SERVICE: 07/09/2024 SUBJECTIVE: This is a 53-year-old woman, who was admitted with colitis, internal abscess, is being closely monitored. No chest pain. No palpitation. Incision appears to be healing. The chest x-ray showed no acute abnormality. OBJECTIVE: VITAL SIGNS: Pulse is 78, blood pressure 105/74, respirations 16. CHEST: A few scattered rhonchi. ABDOMEN: Soft, status post surgery. LEGS: No edema. No swelling. LABORATORY DATA: Reviewed. Hemoglobin 8.9. ASSESSMENT: 1. Colitis with intramural abscess, status post open ileocecectomy with drain placement. 2. Transaminitis. 3. Hypokalemia. 4. Eosinophilia, mild. RECOMMENDATIONS AND DISCUSSION: Recommend to continue current medications, continue symptomatic treatment. Otherwise, repeat labs in the morning. Recommend symptomatic treatment. Follow closely with Surgery and further recommendations to follow. MMODL / IJN: [id number] /
[2024-07-10 05:52] VITALS: RESP 17
[2024-07-10 06:32] LABS: Glucose,Whole Blood 109 mg/dL (70-110)
[2024-07-10 08:38] LABS: Basophils # (A) 0.05 X 10*3/uL (0.00-0.10); Basophils % (A) 0.8 %; Eosinophils # (A) 0.66 X 10*3/uL (0.04-0.35); Eosinophils % (A) 10.1 %; HCT 31.3 % (37.2-46.3); HGB 9.3 g/dL (12.0-15.0); Lymphocytes # (A) 2.81 X 10*3/uL (0.90-5.00); Lymphocytes % (A) 43.2 %; MCH 27.4 pg (27.0-32.0); MCHC 29.7 g/dL (32.0-37.0); MCV 92.1 FL (80.0-97.0); Mean Platelet Volume 10.9 FL (9.5-12.2); Monocytes # (A) 0.56 X 10*3/uL (0.20-1.00); Monocytes % (A) 8.6 %; NRBC Per 100 WBC 0 X 10*3/uL (0.00-0.01); Neutrophils # (A) 2.41 X 10*3/uL (1.80-7.70); Platelet Count 546 X 10*3/uL (140-440); RDW 20.3 % (11.5-14.5); WBC 6.51 X 10*3/uL (4.50-10.00)
[2024-07-10 08:56] LABS: BUN/Creat Ratio 11.43 Ratio (12.00-20.00); Calcium 8.9 mg/dL (8.7-10.3); Carbon Dioxide 23.1 mmol/L (21.6-31.8); Chloride 107 mmol/L (96-109); Glucose 110 mg/dL (70-110); Potassium 3.9 mmol/L (3.5-5.5); Sodium 139 mmol/L (135-145)
[2024-07-10] MEDS: NON FORMULARY DRUG (Dulaglutide [Trulicity] 3 MG/0.5 ML Each) SQ SCH (09:30)
[2024-07-10] MEDS: ATORVASTATIN 80 MG TAB PO SCH (09:34)
[2024-07-10 11:31] LABS: Glucose,Whole Blood 107 mg/dL (70-110)
[2024-07-10] MEDS: HYDROcodone/APAP 5-325MG 1 EACH TAB PO PRN (11:48)
--- NOTE | 2024-07-10 12:47 | P.PN ---
Subjective Progress Note Date: 07/10/24 CHIEF COMPLAINT: Nausea and vomiting HISTORY OF PRESENT ILLNESS: Patient continues to tolerate diet. She is having bowel movements. No nausea or vomiting. She is ambulating. Afebrile. WBC 6.51 Hgb 9.3 PHYSICAL EXAM: VITAL SIGNS: Reviewed. GENERAL: Well-developed in no acute distress. ABDOMEN: Soft. Nondistended. Nontender. Midline incision site healing. Minimal serous drainage noted distally NEUROLOGIC: Alert and oriented. Cranial nerves II through XII grossly intact. ASSESSMENT: 1. Abdominal ileus likely contributing to patient's intractable nausea and vomiting. Now improved 2. Hematemesis likely due to the intractable nausea and vomiting. Now resolved. Hemoglobin stable 3. Colitis with intramural wall absces status post diagnostic laparoscopy converted to open with ileocecectomy on 06/14/2024 4. Small bowel obstruction secondary to adhesions and inflammation status post exploratory laparotomy with extensive lysis of adhesions and small bowel resection x 2 and proximal right colon resection on 06/22/24 5. Weakness 6. Elevated LFTs. Possibly medication induced. Patient has no tenderness in the right upper quadrant. Ultrasound did report possible trace gallbladder sludge. PLAN: -Patient can be discharge from surgical standpoint -Recommend to follow-up LFTs outpatient -Continue low fiber diet Physician Decorator Mannequin note has been reviewed by physician. Signing provider agrees with the documented findings, assessment, and plan of care. Objective - Vital Signs Vital signs: Vital Signs Temp 97.9 F 07/10/24 07:37 Pulse 61 07/10/24 07:37 Resp 17 07/10/24 07:37 BP 111/75 07/10/24 07:37 Pulse Ox 98 07/10/24 07:37 FiO2 Intake & Output 07/09/24 07/10/24 07/10/24 18:59 06:59 18:59 Intake Total 960 Balance 960 Intake: Oral 960 Other: Voiding Method Toilet # Voids 4 7 - Labs CBC & Chem 7: 07/10/24 03:26 07/10/24 03:26 Labs: Abnormal Lab Results - Last 24 Hours (Table) 07/09/24 07/10/24 07/10/24 Range/Units 21:28 03:26 03:26 RBC 3.40 L (4.10-5.20) X 10*6/uL Hgb 9.3 L (12.0-15.0) g/dL Hct 31.3 L (37.2-46.3) % MCHC 29.7 L (32.0-37.0) g/dL RDW 20.3 H (11.5-14.5) % Plt Count 546 H (140-440) X 10*3/uL Eosinophils # 0.66 H (0.04-0.35) X 10*3/uL BUN 8.0 L (9.0-27.0) mg/dL BUN/Creatinine Ratio 11.43 L (12.00-20.00) Ratio POC Glucose (mg/dL) 116 H (70-110) mg/dL Assessment and Plan Assessment: stable for discharge
[2024-07-10 14:07] VITALS: TEMP 97.7
[2024-07-10 15:15] VITALS: BP 102/64; PULSE 82
--- NOTE | 2024-07-10 15:24 | P.DS ---
Providers Date of admission: 07/05/24 02:12 Attending physician: Hiro Velez Consults: 07/05/24 02:12 Consult Physician Routine Consulting Provider: Marga Samuel Consult Reason/Comments: known Do you want consulting provider notified?: Yes 07/05/24 10:29 Consult Physician Routine Consulting Provider: Lupillo Meier Consult Reason/Comments: abdominal abcess on antibiotic, reevaluate Do you want consulting provider notified?: Yes Primary care physician: Kemar Jin MD Hospital Course: Discharge Diagnosis: Colitis with intramural wall abscess status post open ileectomy with drain placement Transaminitis Hypokalemia Anemia Eosinophilia Diabetes mellitus type 2 Hypertension Hyperlipidemia COPD History of CABG and stents Anxiety Hospital Course: HPI: 53-year-old female with diabetes, hypertension, COPD, CABG with multiple stents most recently in November 2018 maintained on aspirin and Plavix presents with complaints of worsening nausea and vomiting. Of note this patient was recently discharged from this facility on 07/02 after undergoing a open iliocecectomy with drain placement. Patient reports when she got home from the hospital she was barely able to tolerate any food. She was able to take a bite or 2 of the sandwich and eat some Jell-O but nothing more. Patient also reports that she was vomiting blood, when asked about the quantity she says about 2 cups. Patient reports if it was up to her she would not of come back to the hospital. Patient reports her family pushed her to return to the hospital after the symptoms and episodes of vomiting blood happened. Patient reports that since she has been at the hospital she has not vomited again. Patient admits to diarrhea, weakness, nausea, and pelvic pain. Initial lab work from the ER was significant for WBC 8.5, hemoglobin 8.8, MCV 98.7, sodium 139, potassium 3.1, glucose 123, AST 157, ALT 94, alkaline phosphatase 295, amylase 39, and lipase 25. EKG on 07/03 showed heart rate of 56 bpm, no ST segment elevation or depression seen, no T-wave inversions seen. Sinus bradycardia. ER CT ABD: Interval removal of the previously demonstrated intra-abdominal catheter. Decreased postoperative bowel dilation with residual top normal caliber bowel with air-fluid levels. Minimal free fluid. No abdominal collection. Fluid and infiltration with midline ventral incision scar suggesting interval surgery. Otherwise no significant interval change. ER gallbladder ultrasound: Possible trace gallbladder sludge. Subjective: 07/06/2024: Patient seen at bedside. No significant overnight events. Patient reports she is feeling better, was able to eat oatmeal this morning without vomiting. 07/07: Patient seen and examined. Complaining abdominal cramps. Had couple of episodes of diarrhea overnight. 07/08/2024: Patient seen at bedside. No significant overnight events. Patient reports she is tolerating the diet well, still having diarrhea. While admitted patient was seen by general surgery who after evaluating her decided against doing an EGD, and suggested the patient could get this done outpatient. Patient also had a low hemoglobin on admission which increased throughout her stay here. Patient also found to have transaminitis, likely secondary to Eraxis or the statin that she was on, both were held during her hospital stay with improvement in her LFTs. Patient was also seen by infectious disease during her stay here who decided the patient was not requiring antibiotics anymore during her hospital stay or for when she was discharged as she did not have infectious signs or abnormal vitals. Patient also had PICC line removed before discharge. Patient is not medically and hemodynamically stable for discharge to home. Patient is advised to follow-up with her PCP and general surgeon. Pt seen and examined at bedside: Patient has no complaints, excited to go home today. Vital signs reveiwed and stable: General: non toxic, no distress, appears at stated age, normal weight Derm: no unusual rashes/lesions, warm Head: atraumatic, normocephalic, symmetric Eyes: EOMI, no lid lag, anicteric sclera, pupils equal round reactive to light ENT: Nose and ears atraumatic Neck: No cervical lymphadenopathy, trachea midline, supple Mouth: no lip lesion, mucus membranes moist Cardiovascular: S1S2 reg, no murmur, positive dorsalis pedis pulse bilateral, no edema Lungs: Decreased air entry bilaterally, no rhonchi, no rales, no accessory muscle use Abdominal: soft, nontender to palpation, no guarding Ext: muscle strength 5 out of 5 in all 4 extremities grossly, no gross muscle atrophy, no contractures, Neuro: CN II-XI grossly intact, no gross focal neuro deficits Psych: Alert, oriented, appropriate affect A total of greater than 30 minutes were spent preparing this complex discarge sood mmary. Patient was discharged on 07/10/2024, 11:32 AM. Patient Condition at Discharge: Fair Plan - Discharge Summary Discharge Rx Participant: No New Discharge Prescriptions: Continue Atorvastatin [Lipitor] 80 mg PO DAILY Ranolazine [Ranexa] 1,000 mg PO BID metFORMIN HCL 1,000 mg PO BID Nitroglycerin Sl Tabs [Nitrostat] 0.4 mg SL Q5M PRN PRN Reason: Chest Pain Aspirin EC [Ecotrin Low Dose] 81 mg PO DAILY Albuterol Inhaler [Ventolin Hfa Inhaler] 2 puff INHALATION RT-QID PRN PRN Reason: Shortness Of Breath Isosorbide Mononitrate ER [Imdur] 30 mg PO DAILY Insulin Lispro [humaLOG Kwikpen] See Protocol SQ AC-TID Dapagliflozin Propanediol [Farxiga] 5 mg PO DAILY Dulaglutide [Trulicity] 3 mg SQ WE Ipratropium-Albuterol Nebulize [Duoneb 0.5 mg-3 mg/3 ml Soln] 3 ml INHALATION RT-TID Spiriva Respimat 1.25mcg/Actuation Mist 2 puff INHALATION RT-DAILY Ondansetron Odt [Zofran ODT] 4 mg PO Q8HR PRN PRN Reason: Nausea lisinopriL [Zestril] 10 mg PO DAILY Cholestyramine (with Sugar) [Questran Packet] 4 gm PO BID #60 packet Metoprolol Tartrate [Lopressor] 12.5 mg PO BID #60 tab rOPINIRole HCL [Requip] 1 mg PO HS amLODIPine [Norvasc] 10 mg PO DAILY Omeprazole 40 mg PO BID Budesonide/Formoterol Fumarate [Symbicort 160-4.5 Mcg Inhaler] 2 puff INHALATION RT-BID Pregabalin [Lyrica] 150 mg PO TID Clopidogrel [Plavix] 75 mg PO DAILY ALPRAZolam [Xanax] 0.5 mg PO BID PRN PRN Reason: Anxiety Mag Hydrox/Al Hydrox/Simeth [Maalox] 30 ml PO QID PRN 2 Days #180 ml PRN Reason: Heartburn Albuterol Nebulized [Ventolin Nebulized] 2.5 mg INHALATION RT-Q6H PRN PRN Reason: Shortness Of Breath Changed HYDROcodone/APAP 10-325MG [[place] 10-325] 1 tab PO Q8H PRN #9 tab PRN Reason: Pain Scale 6 To 10 Discontinued Ertapenem [INVanz] 1 gm IVPB Q24H #7 each Anidulafungin [Eraxis] 100 mg IVPB DAILY #7 each Discharge Medication List Atorvastatin [Lipitor] 80 mg PO DAILY 07/08/20 [History] Ranolazine [Ranexa] 1,000 mg PO BID 11/13/21 [History] Albuterol Inhaler [Ventolin Hfa Inhaler] 2 puff INHALATION RT-QID PRN 03/27/23 [History] Aspirin EC [Ecotrin Low Dose] 81 mg PO DAILY 03/27/23 [History] Budesonide/Formoterol Fumarate [Symbicort 160-4.5 Mcg Inhaler] 2 puff INHALATION RT-BID 03/27/23 [History] Clopidogrel [Plavix] 75 mg PO DAILY 03/27/23 [History] Nitroglycerin Sl Tabs [Nitrostat] 0.4 mg SL Q5M PRN 03/27/23 [History] Omeprazole 40 mg PO BID 03/27/23 [History] Pregabalin [Lyrica] 150 mg PO TID 03/27/23 [History] amLODIPine [Norvasc] 10 mg PO DAILY 03/27/23 [History] metFORMIN HCL 1,000 mg PO BID 03/27/23 [History] rOPINIRole HCL [Requip] 1 mg PO HS 03/27/23 [History] ALPRAZolam [Xanax] 0.5 mg PO BID PRN 06/22/23 [History] Dapagliflozin Propanediol [Farxiga] 5 mg PO DAILY 03/16/24 [History] Dulaglutide [Trulicity] 3 mg SQ WE 03/16/24 [History] Insulin Lispro [humaLOG Kwikpen] See Protocol SQ AC-TID 03/16/24 [History] Ipratropium-Albuterol Nebulize [Duoneb 0.5 mg-3 mg/3 ml Soln] 3 ml INHALATION RT-TID 03/16/24 [History] Isosorbide Mononitrate ER [Imdur] 30 mg PO DAILY 03/16/24 [History] Mag Hydrox/Al Hydrox/Simeth [Maalox] 30 ml PO QID PRN 2 Days #180 ml 05/22/24 [Rx] Spiriva Respimat 1.25mcg/Actuation Mist 2 puff INHALATION RT-DAILY 05/24/24 [History] Albuterol Nebulized [Ventolin Nebulized] 2.5 mg INHALATION RT-Q6H PRN 05/31/24 [History] Ondansetron Odt [Zofran ODT] 4 mg PO Q8HR PRN 05/31/24 [History] lisinopriL [Zestril] 10 mg PO DAILY 05/31/24 [History] Cholestyramine (with Sugar) [Questran Packet] 4 gm PO BID #60 packet 06/03/24 [Rx] Metoprolol Tartrate [Lopressor] 12.5 mg PO BID #60 tab 07/02/24 [Rx] HYDROcodone/APAP 10-325MG [[place] 10-325] 1 tab PO Q8H PRN #9 tab 07/10/24 [Rx] Follow up Appointment(s)/Referral(s): Kemar Jin MD [Primary Care Provider] - 1-2 days (Office stated to have patient call for follow-up appointment.) [facility], [NON-STAFF] - As Needed ([facility] will call you to schedule your in home nursing, physical therapy, occupational therapy, and model home sales greeter visits. ) Marga Samuel DO [Doctor of Osteopathic Medicine] - 1 Week (Office lines are closed at time of discharge. Please call for follow-up appointment.) Activity/Diet/Wound Care/Special Instructions: [place] to be removed 07/16/24Monday Diet: Low fiber Activity: Limited till follow up Discharge Disposition: HOME SELF-CARE
--- NOTE | 2024-07-11 14:56 | P.PN ---
Subjective Progress Note Date: 07/10/24 Principal diagnosis: Reason for follow-up is intra-abdominal infection and elevated liver enzymes Patient is a 53-year-old female with a past medical history of kidney for diabetes mellitus hypertension PA osteoarthritis, who recently did have a prolonged hospital stay in this patient who did have intramural abscess and the patient is status post ileocecectomy subsequently was taken back to the OR for exploratory laparotomy with lysis of adhesion small bowel resection and proximal right colon resection for small bowel obstruction abdominal culture at that time did grew Nilda albicans as well as Nilda glabrata patient was stabilized and discharge home on IV Invanz and Eraxis, patient presented to the hospital concerning for intractable nausea and vomiting, patient did have CT abdominal pelvis did not show any perforation abscess. On today's evaluation that is 07/10/2024, patient has been afebrile, patient is breathing comfortably and is currently on room air, patient denies having any significant cough no chest pain, patient denies nausea vomiting or diarrhea and no abdominal pain, feeling better wants to go home. Patient white count 6.51, creatinine 0.7 Objective - Vital Signs Vital signs: Vital Signs Temp 97.9 F 07/10/24 07:37 Pulse 61 07/10/24 07:37 Resp 17 07/10/24 07:37 BP 111/75 07/10/24 07:37 Pulse Ox 98 07/10/24 07:37 FiO2 Intake & Output 07/09/24 07/10/24 07/10/24 18:59 06:59 18:59 Intake Total 960 Balance 960 Intake: Oral 960 Other: Voiding Method Toilet # Voids 4 7 - Exam GENERAL DESCRIPTION: Middle-age female lying in bed in no distress RESPIRATORY SYSTEM: Unlabored breathing , decreased breath sounds at bases HEART: S1 S2 regular rate and rhythm , ABDOMEN: Soft , no tenderness EXTREMITIES: No edema feet - Labs CBC & Chem 7: 07/10/24 03:26 07/10/24 03:26 Labs: Abnormal Lab Results - Last 24 Hours (Table) 07/09/24 07/10/24 07/10/24 Range/Units 21:28 03:26 03:26 RBC 3.40 L (4.10-5.20) X 10*6/uL Hgb 9.3 L (12.0-15.0) g/dL Hct 31.3 L (37.2-46.3) % MCHC 29.7 L (32.0-37.0) g/dL RDW 20.3 H (11.5-14.5) % Plt Count 546 H (140-440) X 10*3/uL Eosinophils # 0.66 H (0.04-0.35) X 10*3/uL BUN 8.0 L (9.0-27.0) mg/dL BUN/Creatinine Ratio 11.43 L (12.00-20.00) Ratio POC Glucose (mg/dL) 116 H (70-110) mg/dL Assessment and Plan (1) Intra-abdominal abscess Status: Acute Code(s): K65.1 - PERITONEAL ABSCESS SNOMED Code(s): 28297825 (2) Hepatitis Status: Acute Code(s): K75.9 - INFLAMMATORY LIVER DISEASE, UNSPECIFIED SNOMED Code(s): 142806094 Plan: 1patient with presented to hospital with intractable nausea and vomiting in this patient who recently did have a prolonged complicated stay requiring abdominal surgery x 2 with admission for intermittently abscess secondary for bowel obstruction and the second surgery abdominal culture did grew Nilda albicans and glabrata for the patient was getting outpatient Eraxis and Invanz patient did have a CT abdomen pelvis did not show any abnormal fluid collection suggestive of abscess with a question of possible ileus versus symptoms related to gallbladder as there was evidence of sludge and the patient have elevated liver enzymes 2-patient liver enzymes are trending down after discontinuation of the Invanz and Eraxis, and the patient remains to be afebrile and the white count has been normal meaning adequate treatment of underlying infection 3no need for antibiotics on discharge PICC line to be discontinued before discharge discussed with the nursing staff Dictation was produced using [employer] dictation software. please excuse any grammatical, word or spelling errors. Time with Patient: Less than 30
--- NOTE | 2024-07-25 12:10 | CDI ---
Documentation Clarification Form Date: 07/25/2024 11:49:31 AM From: Nina Brown Phone: Admit Date: 07/05/2024 02:12:00 AM Patient Name: Griselda Mcadams Visit Number: [id number] Discharge Date: 07/10/2024 05:09:00 PM ATTENTION: The Clinical Documentation Specialists (CDI) and [facility] Coding Staff appreciate your assistance in clarifying documentation. Please respond to the clarification below the line at the bottom and electronically sign. The CDI & [facility] Coding staff will review the response and follow-up if needed. Please note: Queries are made part of the Legal Health Record. If you have any questions, please contact the author of this message via ITS. Doctor/Provider: Hiro Velez Conflicting documentation has been found in the medical record CT abdomenpelvisdid not show anyabnormalfluidcollection suggestive ofabscesswith a question of possibleileus Consult 07/05 and Progress Notes Intra-abdominal abscess per A&P Consult Note 07/05 and Progress Notes As attending physician, please provide clarification. History/Risk Factors: Colitiswith transaminitis, hypokalemia, anemia, ileus, eosinophilia, DMII, HTN, HLD, CAD w CABG/stents, COPD, anxiety, smoker Clinical Indicators: intramural wallabscessstatus postopenileectomywithdrain placement, PICC line present WBC: 07/04 8.5 07/05 7.8 07/08 7.0 07/09 7.25 07/[address] Abd & Pelvis with IV Contrast: Redemonstrated RT colon and LT upper pelvic small bowel anastomotic sutures. Air-fluid levels in top normal caliber small and large bowelsuggestingmild residualileus. Treatment: infectious disease was consulted for management ofantibiotictherapy. PICC was removed Please clarify which diagnosis is most appropriate: [ ] Peritoneal abscess, treated [ ] Peritoneal abscess ruled out [ ] Other (please specify) [ x ] Unable to determine (Template Last Revised: November 2020) MTDD
--- NOTE | 2024-07-25 12:17 | CDI ---
Documentation Clarification Form Date: 07/25/2024 12:11:28 PM From: Nina Brown Phone: Admit Date: 07/05/2024 02:12:00 AM Patient Name: Griselda Mcadams Visit Number: [id number] Discharge Date: 07/10/2024 05:09:00 PM ATTENTION: The Clinical Documentation Specialists (CDI) and [facility] Coding Staff appreciate your assistance in clarifying documentation. Please respond to the clarification below the line at the bottom and electronically sign. The CDI & [facility] Coding staff will review the response and follow-up if needed. Please note: Queries are made part of the Legal Health Record. If you have any questions, please contact the author of this message via ITS. Doctor/Provider: Hiro Velez Anemia is documented per Progress Notes. Additional specificity regarding the type of anemia is requested. History/Risk Factors: Colitis with transaminitis, hypokalemia, anemia, ileus, eosinophilia, DMII, HTN, HLD, CAD w CABG/stents, COPD, anxiety, smoker Clinical indicators: recent surgery and recenthemoptysis Hemoglobin: 07/04 8.8 07/06 7.9 07/07 8.4 07/08 9.5 07/09 8.9 07/10 9.3 Hematocrit: 07/04 29.5 07/06 26.6 07/07 28.3 07/08 31.2 07/09 29.7 07/10 31.3 Treatment: Monitor CBC Please clarify the type of anemia: [ ] Acute blood loss anemia [x ] Acute on chronic blood loss anemia [ ] Chronic blood loss anemia [ ] Iron deficiency anemia [ ] Unable to determine [ ] Other, please specify (Template Last Revised: October 2020) MTDD
== END 2024-07-10 17:09 | disposition home or self-care (01) | DRG 249 ==
LOC: EC 21:53 → 4SSUR 07-05 02:12 → OBSVTOIN 07-05 02:12 → 4SSUR 07-05 02:49
PROVIDERS: ADMIT Hospitalist; ATTEND Hospitalist
DX: K52.9 Noninfective gastroenteritis and colitis, unspecified (principal); D72.10 Eosinophilia, unspecified; D62 Acute posthemorrhagic anemia; K56.7 Ileus, unspecified; K75.9 Inflammatory liver disease, unspecified; E11.9 Type 2 diabetes mellitus without complications; Z79.4 Long term (current) use of insulin; J44.89 Other specified chronic obstructive pulmonary disease; I10 Essential (primary) hypertension; E86.0 Dehydration; E78.5 Hyperlipidemia, unspecified; I25.10 Atherosclerotic heart disease of native coronary artery without angina pectoris; T50.905A Adverse effect of unspecified drugs, medicaments and biological substances, initial encounter; F17.210 Nicotine dependence, cigarettes, uncomplicated; E87.6 Hypokalemia; F41.9 Anxiety disorder, unspecified; Z79.02 Long term (current) use of antithrombotics/antiplatelets; Z79.82 Long term (current) use of aspirin; Z79.51 Long term (current) use of inhaled steroids; Z79.84 Long term (current) use of oral hypoglycemic drugs; Z79.899 Other long term (current) drug therapy; Z95.1 Presence of aortocoronary bypass graft; Z95.5 Presence of coronary angioplasty implant and graft; Z79.85 Long-term (current) use of injectable non-insulin antidiabetic drugs; I25.2 Old myocardial infarction; Z90.49 Acquired absence of other specified parts of digestive tract
CPT/HCPCS: 36415; 71045; 74177; 76705; 80048; 80053; 80074; 81003; 82150; 83605; 83690; 83735; 84100; 85025; 85027; 86140; 96361; 96374; 96375; 96376; 99285

== ENCOUNTER 2024-07-15 09:03 | Inpatient (IN) | payer OTHER ==
[2024-07-15] MEDS: SODIUM CHLORIDE 0.9% 1,000 ML IV STA (09:54)
[2024-07-15] MEDS: ONDANSETRON 4 MG/2 ML VIAL IVP STA (09:56)
[2024-07-15] MEDS: HYDROmorphone 0.5 MG/0.5 ML SYRINGE IVP STA (09:56)
--- NOTE | 2024-07-15 10:00 | ED ---
General Adult HPI - General Chief complaint: Abdominal Pain Stated complaint: Post-op comp Time Seen by Provider: 07/15/24 09:05 Source: patient, EMS Mode of arrival: EMS Limitations: no limitations - History of Present Illness Initial comments: Dictation was produced using [employer] dictation software. please excuse any grammatical, word or spelling errors. Chief Complaint: 53-year-old female presents to the emergency department for abdominal pain History of Present Illness: Patient is a 53-year-old female presents emergency department with abdominal pain. Patient was discharge 5 days ago. She recently had abdominal surgery performed by Dr. Packer. Patient describes that she had a hole in one of her colon requiring colon resection. States that she was just discharged 5 days ago and since then she has has been having abdominal pain. Denies any fever, chills or night sweats. The ROS documented in this emergency department record has been reviewed and confirmed by me. Those systems with pertinent positive or negative responses have been documented in the HPI. All other systems are other negative and/or noncontributory. - Related Data Home Medications Medication Instructions Recorded Confirmed Atorvastatin [Lipitor] 80 mg PO DAILY 07/08/20 07/15/24 Ranolazine [Ranexa] 1,000 mg PO BID 11/13/21 07/15/24 Albuterol Inhaler [Ventolin Hfa 2 puff INHALATION RT-QID PRN 03/27/23 07/15/24 Inhaler] Aspirin EC [Ecotrin Low Dose] 81 mg PO DAILY 03/27/23 07/15/24 Budesonide/Formoterol Fumarate 2 puff INHALATION RT-BID 03/27/23 07/15/24 [Symbicort 160-4.5 Mcg Inhaler] Clopidogrel [Plavix] 75 mg PO DAILY 03/27/23 07/15/24 Nitroglycerin Sl Tabs [Nitrostat] 0.4 mg SL Q5M PRN 03/27/23 07/15/24 Omeprazole 40 mg PO BID 03/27/23 07/15/24 Pregabalin [Lyrica] 150 mg PO TID 03/27/23 07/15/24 amLODIPine [Norvasc] 10 mg PO DAILY 03/27/23 07/15/24 metFORMIN HCL 1,000 mg PO BID 03/27/23 07/15/24 rOPINIRole HCL [Requip] 1 mg PO HS 03/27/23 07/15/24 ALPRAZolam [Xanax] 0.5 mg PO BID PRN 06/22/23 07/15/24 Dapagliflozin Propanediol [Farxiga] 5 mg PO DAILY 03/16/24 07/15/24 Dulaglutide [Trulicity] 3 mg SQ WE 03/16/24 07/15/24 Insulin Lispro [humaLOG Kwikpen] See Protocol SQ AC-TID 03/16/24 07/15/24 Ipratropium-Albuterol Nebulize 3 ml INHALATION RT-TID 03/16/24 07/15/24 [Duoneb 0.5 mg-3 mg/3 ml Soln] Isosorbide Mononitrate ER [Imdur] 30 mg PO DAILY 03/16/24 07/15/24 Spiriva Respimat 1.25mcg/Actuation 2 puff INHALATION RT-DAILY 05/24/24 07/15/24 Mist Albuterol Nebulized [Ventolin 2.5 mg INHALATION RT-Q6H PRN 05/31/24 07/15/24 Nebulized] Ondansetron Odt [Zofran ODT] 4 mg PO Q8HR PRN 05/31/24 07/15/24 lisinopriL [Zestril] 10 mg PO DAILY 05/31/24 07/15/24 Previous Rx's Medication Instructions Recorded Mag Hydrox/Al Hydrox/Simeth 30 ml PO QID PRN 2 Days #180 ml 05/22/24 [Maalox] Cholestyramine (with Sugar) 4 gm PO BID #60 packet 06/03/24 [Questran Packet] Metoprolol Tartrate [Lopressor] 12.5 mg PO BID #60 tab 07/02/24 HYDROcodone/APAP 10-325MG [[place] 1 tab PO Q8H PRN #9 tab 07/10/24 10-325] Allergies Allergy/AdvReac Type Severity Reaction Status Date / Time No Known Allergies Allergy Verified 07/15/24 10:44 Review of Systems ROS Statement: Those systems with pertinent positive or pertinent negative responses have been documented in the HPI. ROS Other: All systems not noted in ROS Statement are negative. Past Medical History Past Medical History: Asthma, Coronary Artery Disease (CAD), COPD, Diabetes Mellitus, GERD/Reflux, Hypertension, Myocardial Infarction (MS), Osteoarthritis (OA) Additional Past Medical History / Comment(s): DDD, scoliosis, MS x4 Last Myocardial Infarction Date:: 2011 History of Any Multi-Drug Resistant Organisms: None Reported Past Surgical History: Coronary Bypass/CABG, Heart Catheterization With Stent Additional Past Surgical History / Comment(s): seven stents, here for gastroenteritis with abcess (removal 06/21/24) Past Anesthesia/Blood Transfusion Reactions: No Reported Reaction Date of Last Stent Placement:: 11/2018 Past Psychological History: Anxiety, Bipolar Smoking Status: Current every day smoker Past Alcohol Use History: None Reported Past Drug Use History: Marijuana - Past Family History Mother Family Medical History: Cancer Additional Family Medical History / Comment(s): Ovarian cancer Father Family Medical History: Congestive Heart Failure (CHF) Fmily Family Medical History: No Reported History General Exam - General Exam Comments Initial Comments: PHYSICAL EXAM: General Impression: Alert and oriented x3, acute distress secondary to pain HEENT: Normocephalic atraumatic, extra-ocular movements intact, pupils equal and reactive to light bilaterally, mucous membranes moist. Cardiovascular: Heart regular rate and rhythm Chest: Able to complete full sentences, no retractions, no tachypnea Abdomen: abdomen soft, diffuse abdominal tenderness, non-distended, no organomegaly Musculoskeletal: Pulses present and equal in all extremities, no peripheral edema Motor: no focal deficits noted Neurological: CN II-XII grossly intact, no focal motor or sensory deficits noted Skin: Intact with no visualized rashes Psych: Normal affect and mood Limitations: no limitations Course Vital Signs 07/15/24 09:06 Temperature 98.0 F Pulse Rate 100 Respiratory 28 H Rate Blood Pressure 161/110 O2 Sat by Pulse 99 Oximetry EKG Findings - EKG Comments: EKG Findings:: My EKG interpretation: Ventricular rate 93, sinus rhythm,. 147, QRS 68, QTc 3-4. No [place] prolongation, no QTC prolongation, no ST or T-wave changes noted. EKG compared to June 12, 2024 showing no changes. Overall, this EKG is unremarkable Medical Decision Making - Medical Decision Making Was pt. sent in by a medical professional or institution (, PA, INDUSTRIAL AERIAL INSTALLER, urgent care, hospital, or group home...) When possible be specific @ -No Did you speak to anyone other than the patient for history (EMS, parent, family, police, friend...)? What history was obtained from this source @ -No Did you review nursing and triage notes (agree or disagree)? Why? @ -I reviewed and agree with nursing and triage notes Were old charts reviewed (outside hosp., previous admission, EMS record, old EKG, old radiological studies, urgent care reports/EKG's, group home records)? Report findings @ -Previous charting reviewed showing she had surgery by Dr. Rawls in on June 22 Differential Diagnosis (chest pain, altered mental status, abdominal pain women, abdominal pain men, vaginal bleeding, musculoskeletal, weakness, fever, dyspnea, syncope, headache, dizziness, GI bleed, back pain, seizure, CVA, palpatations, mental health)? @ -Differential Abdominal Pain Women: Appendicitis, Cholecystitis, diverticulosis, ischemic bowel, pancreatitis, hepatitis, UTI, gastroenteritis, AAA, incarcerated hernia, bowel obstruction, constipation, inflammatory bowel, hepatitis, peptic ulcer disease, splenic infarction, perforated viscus, vulvitis, ovarian torsion, PID, kidney stone, placenta abruption, this is not meant to be an all-inclusive list EKG interpreted by me (3pts min.). @ -See above X-rays interpreted by me (1pt min.). @ -None done CT interpreted by me (1pt min.). @ -CT of the abdomen pelvis shows anterior abdominal wall abscess U/S interpreted by me (1pt. min.). @ -None done What testing was considered but not performed or refused? (CT, X-rays, U/S, labs)? Why? @ -None What meds were considered but not given or refused? Why? @ -None Was smoking cessation discussed for >3mins.? @ -No Were there social determinants of health that impacted care today? How? (Homelessness, low income, unemployed, alcoholism, drug addiction, transportation, low edu. Level, literacy, decrease access to med. care, penitentiary, rehab)? @ -No Was there de-escalation of care discussed even if they declined (Discuss DNR or withdrawal of care, Hospice)? DNR status @ -No What co-morbidities impacted this encounter? (DM, HTN, Smoking, COPD, CAD, Cancer, CVA, ARF, Chemo, Hep., AIDS, mental health diagnosis, sleep apnea, morbid obesity)? @ -None Was patient admitted / discharged? Hospital course, mention meds given and route, prescriptions, significant lab abnormalities, going to OR and other pertinent info. @ -53-year-old female presents to the emergency department with abdominal pain. Vital signs upon arrival are within acceptable limits. Patient distress secondary to abdominal pain. Laboratory evaluation within acceptable limits. CT abdomen pelvis shows abdominal wall abscess. Patient started antibiotics will be admitted. Did you discuss the management of the patient with other professionals (professionals i.e. , PA, INDUSTRIAL AERIAL INSTALLER, lab, RT, psych nurse, socially responsible investment adviser, patient admitting representative, teacher, banking officer, case planner)? Give summary @ -Case discussed with surgery for admission Was critical care preformed (if so, how long)? @ -No Undiagnosed new problem with uncertain prognosis? @ -No Drug Therapy requiring intensive monitoring for toxicity (Heparin, Nitro, Insulin, Cardizem)? @ -No Were any procedures done? @ -No Diagnosis/symptom? Acute, or Chronic, or Acute on Chronic? Uncomplicated (w ithout systemic symptoms) or Complicated (systemic symptoms)? @ -Postoperative abdominal abscess Side effects of treatment? @ -No Exacerbation, Progression, or Severe Exacerbation? @ -No Poses a threat to life or bodily function? How? (Chest pain, [place], MS, pneumonia, PE, COPD, DKA, ARF, appy, cholecystitis, CVA, Diverticulitis, Homicidal, Suicidal, threat to staff... and all critical care pts) @ -yes - Lab Data Result diagrams: 07/15/24 09:57 07/15/24 09:57 Lab Results 07/15/24 07/15/24 07/15/24 Range/Units 09:57 09:57 09:57 WBC 9.3 (3.8-10.6) k/uL RBC 4.56 (3.80-5.40) m/uL Hgb 12.8 D (11.4-16.0) gm/dL Hct 41.0 (34.0-46.0) % MCV 89.8 (80.0-100.0) fL MCH 28.0 (25.0-35.0) pg MCHC 31.1 (31.0-37.0) g/dL RDW 18.5 H (11.5-15.5) % Plt Count 537 H (150-450) k/uL MPV 8.2 Neutrophils % 62 % Lymphocytes % 25 % Monocytes % 4 % Eosinophils % 7 % Basophils % 0 % Neutrophils # 5.8 (1.3-7.7) k/uL Lymphocytes # 2.3 (1.0-4.8) k/uL Monocytes # 0.4 (0-1.0) k/uL Eosinophils # 0.6 (0-0.7) k/uL Basophils # 0.0 (0-0.2) k/uL Hypochromasia Moderate Anisocytosis Slight Sodium 140 (137-145) mmol/L Potassium 3.9 (3.5-5.1) mmol/L Chloride 102 (98-107) mmol/L Carbon Dioxide 24 (22-30) mmol/L Anion Gap 14 mmol/L BUN 6 L (7-17) mg/dL Creatinine 0.68 (0.52-1.04) mg/dL Est GFR (CKD-EPI)AfAm >90 (>60 ml/min/1.73 sqM) Est GFR (CKD-EPI)NonAf >90 (>60 ml/min/1.73 sqM) Glucose 136 H (74-99) mg/dL Plasma Lactic Acid Sarthak 2.6 H* (0.7-2.0) mmol/L Calcium 10.8 H (8.4-10.2) mg/dL Total Bilirubin 0.6 (0.2-1.3) mg/dL AST 72 H (14-36) U/L ALT 72 H (4-34) U/L Alkaline Phosphatase 259 H (38-126) U/L Total Protein 8.0 (6.3-8.2) g/dL Albumin 4.8 (3.5-5.0) g/dL Lipase 53 (23-300) U/L Disposition Clinical Impression: Postoperative abscess Disposition: ADMITTED IP TO THIS HOSP Condition: Fair Referrals: Kemar Jin MD [Primary Care Provider] - 1-2 days Decision Time: 11:49
[2024-07-15 10:14] LABS: ALT 72 U/L (4-34); AST 72 U/L (14-36); African American GFR (CKD) >90 (>60 ml/min/1.73 sqM); Albumin 4.8 g/dL (3.5-5.0); Alkaline Phosphatase 259 U/L (38-126); Anion Gap 14 mmol/L; Anisocytosis Slight; Basophils % (A) 0 %; Blood Urea Nitrogen 6 mg/dL (7-17); Calcium 10.8 mg/dL (8.4-10.2); Carbon Dioxide 24 mmol/L (22-30); Chloride 102 mmol/L (98-107); Eosinophils # (A) 0.6 k/uL (0-0.7); Eosinophils % (A) 7 %; Glucose 136 mg/dL (74-99); Hypochromasia Moderate; Lipase 53 U/L (23-300); Lymphocytes # (A) 2.3 k/uL (1.0-4.8); Lymphocytes % (A) 25 %; MCHC 31.1 g/dL (31.0-37.0); MCV 89.8 fL (80.0-100.0); Mean Platelet Volume 8.2; Monocytes # (A) 0.4 k/uL (0-1.0); Monocytes % (A) 4 %; Neutrophils # (A) 5.8 k/uL (1.3-7.7); Neutrophils % (A) 62 %; Non-African American GFR(CKD) >90 (>60 ml/min/1.73 sqM); Platelet Count 537 k/uL (150-450); Potassium 3.9 mmol/L (3.5-5.1); RBC 4.56 m/uL (3.80-5.40); RDW 18.5 % (11.5-15.5); Sodium 140 mmol/L (137-145); Total Bilirubin 0.6 mg/dL (0.2-1.3); WBC 9.3 k/uL (3.8-10.6)
[2024-07-15 10:20] LABS: HGB 12.8 gm/dL (11.4-16.0)
--- NOTE | 2024-07-15 11:26 | CT ---
EXAMINATION TYPE: CT abdomen pelvis w con CT DLP: 1159.1 mGycm, Automated exposure control for dose reduction was used. DATE OF EXAM: 07/15/2024 11:18 AM COMPARISON: CT abdomen pelvis 06/18/2024 CLINICAL INDICATION:Female, 53 years old with history of post op pain; recent abdominal/colon sx. pos t op pain TECHNIQUE: Standard CT of the abdomen and pelvis following the administration of 100 cc of Isovue 3 00 IV contrast material. Coronal and sagittal reformats were performed. FINDINGS: LOWER CHEST: Unremarkable ABDOMEN LIVER: Unremarkable GALLBLADDER AND BILE DUCTS: Unremarkable. PANCREAS: Unremarkable. SPLEEN: Unremarkable. ADRENAL GLANDS: Unremarkable. KIDNEYS AND URETERS: No evidence of hydronephrosis or renal calculus. The kidneys enhance symmetrical ly. Contrast is demonstrated within both collecting systems on the delayed phase. PELVIS BLADDER: Incompletely distended but grossly unremarkable. REPRODUCTIVE: Unremarkable. ABDOMEN & PELVIS STOMACH AND BOWEL: Stomach and duodenum are unremarkable. Postsurgical changes with bowel anastomosis within the right lower quadrant and lower anterior pelvis. Sigmoid diverticulosis without evidence f or acute diverticulitis. No evidence of bowel obstruction. PERITONEUM: No evidence of pneumoperitoneum. Similar lower mesenteric edema. No intraperitoneal organ ized fluid collection identified. VASCULATURE: Moderate atherosclerotic calcifications are present throughout the abdominal aorta and i ts branches. No evidence of aortic aneurysm. MUSCULOSKELETAL: No acute osseous abnormalities. Mild multilevel degenerative disc disease. LYMPH NODES: No evidence for lymphadenopathy. SOFT TISSUE/ABDOMINAL WALL: Postsurgical changes in the midline anterior abdominal wall with skin sta ples identified. There is an organized fluid collection within the midline anterior abdominal wall wi th fluid and foci of gas. Measures grossly 2.4 x 2.2 x 8.3 cm in AP, AP view, CC dimensions (series 2 01, image 40). This is at the level of the rectus abdominis. IMPRESSION: 1. Anterior abdominal wall organized fluid collection most consistent with an abscess at surgical in cision site. 2. Postsurgical changes of the bowel. [facility], , 07/15/2024 11:24 AM
[2024-07-15] MEDS ORDERED: VANCOMYCIN IV PER PHARMACY 1 EACH MISC MISCELLANE PRN (11:28)
[2024-07-15] MEDS ORDERED: ACETAMINOPHEN TAB 325 MG TAB PO PRN (11:44)
[2024-07-15] MEDS ORDERED: NALOXONE 0.4 MG/ML 1 ML VIAL IV PRN (11:44)
[2024-07-15] MEDS: HYDROmorphone 1 MG/ML 1 ML SYRINGE IVP PRN (11:57)
[2024-07-15] MEDS: VANCOMYCIN 1,500 MG in SODIUM CHLORIDE 0.9% 500 ML 500 ML IVPB ONE (12:00)
[2024-07-15] MEDS: SODIUM CHLORIDE 0.9% 1,000 ML IV SCH (12:03)
[2024-07-15] MEDS: PIPERACILLIN-TAZOBACTAM 3.375 GM in SODIUM CHLORIDE 0.9% 100 ML IVPB SCH (12:03)
[2024-07-15] MEDS ORDERED: ALBUTEROL NEBULIZED 2.5 MG/3 ML INHALATION PRN (16:25)
[2024-07-15] MEDS ORDERED: DEXTROSE 50% SYRINGE 50 ML IVP PRN ×2 (16:26)
[2024-07-15] MEDS: INSULIN ASPART (NovoLOG) 100 UNIT/ML VIAL SQ SCH (16:59)
[2024-07-15 17:03] LABS: Glucose,Whole Blood 92 mg/dL (70-110)
--- NOTE | 2024-07-15 17:30 | P.HPIM ---
History of Present Illness H&P Date: 07/15/24 Chief Complaint: Abdominal pain Patient is a with known history of CAD status post CABG and multiple stent placement, hypertension, diabetes type 2 [id number], hyperlipidemia, COPD presents to ER with complaints of abdominal pain. Patient was recently discharged the hospital on 07/04/2024, was treated for colitis with intramural wall abscess status post open ileectomy with drain placement and removal. Patient was discharged home with home health care. Patient states that after discharge she felt good for 2 days and started having abdominal pain. Since yesterday patient has been having worsening pain and unable to keep down food. Denied any complaints of fever or chills. No complaints of nausea or vomiting. Patient was also having shortness of breath when she had pain. No diarrhea. No cough or sputum production. Patient had recess visited by Dr. Packer CT of the abdomen pelvis showed anterior abdominal wall organized fluid collection most consistent with an abscess at surgical site incision site. Postsurgical changes of the bowel. EKG showed sinus rhythm with heart rate 93 Laboratory showed WBC 9.3 hemoglobin 12.8 and platelets 537 sodium 140 potassium 3.9 chloride 102 bicarb is 24 BUN 16 creatinine 0.68 and blood sugar 136 and lactic acid 2.6 and calcium 10.8 AST 22 ALT 72 and alk phos 259 and lipase 53 Review of Systems Constitutional: Patient denies any fever or chills . No generalized weakness or weight loss. Abdomen: Patient does complain of nausea and unable to tolerate oral diet. Abdominal pain at the incision site. No diarrhea. Cardiovascular: Patient denies any chest pain or short of breath no palpitations. Respiratory: patient denied any cough or sputum production. No shortness of b reath Neurologic: Patient denied any numbness or tingling. no headache. Musculoskeletal: Patient denies any complaints of joint swelling or deformity. Skin: Negative Psychiatric: Negative Endocrine: No heat or cold intolerance. No recent weight gain. Genitourinary: No dysuria or hematuria. All other 14 point ROS negative except the above Past Medical History Past Medical History: Asthma, Coronary Artery Disease (CAD), COPD, Diabetes Mellitus, GERD/Reflux, Hypertension, Myocardial Infarction ([place]), Osteoarthritis ([place]) Additional Past Medical History / Comment(s): DDD, scoliosis, [place] x4 Last Myocardial Infarction Date:: 2011 History of Any Multi-Drug Resistant Organisms: None Reported Past Surgical History: Coronary Bypass/CABG, Heart Catheterization With Stent Additional Past Surgical History / Comment(s): seven stents, here for gastroenteritis with abcess (removal 06/21/24) Past Anesthesia/Blood Transfusion Reactions: No Reported Reaction Date of Last Stent Placement:: 11/2018 Past Psychological History: Anxiety, Bipolar Smoking Status: Current every day smoker Past Alcohol Use History: None Reported Past Drug Use History: Marijuana - Past Family History Mother Family Medical History: Cancer Additional Family Medical History / Comment(s): Ovarian cancer Father Family Medical History: Congestive Heart Failure (CHF) Fmily Family Medical History: No Reported History Medications and Allergies Home Medications Medication Instructions Recorded Confirmed Type RX: Atorvastatin [Lipitor] 80 mg PO DAILY 07/08/20 07/15/24 History RX: Ranolazine [Ranexa] 1,000 mg PO BID 11/13/21 07/15/24 History RX: Albuterol Inhaler [Ventolin 2 puff INHALATION RT-QID PRN 03/27/23 07/15/24 History Hfa Inhaler] RX: Aspirin EC [Ecotrin Low Dose] 81 mg PO DAILY 03/27/23 07/15/24 History RX: Budesonide/Formoterol Fumarate 2 puff INHALATION RT-BID 03/27/23 07/15/24 History [Symbicort 160-4.5 Mcg Inhaler] RX: Clopidogrel [Plavix] 75 mg PO DAILY 03/27/23 07/15/24 History RX: Nitroglycerin Sl Tabs 0.4 mg SL Q5M PRN 03/27/23 07/15/24 History [Nitrostat] RX: Omeprazole 40 mg PO BID 03/27/23 07/15/24 History RX: Pregabalin [Lyrica] 150 mg PO TID 03/27/23 07/15/24 History RX: amLODIPine [Norvasc] 10 mg PO DAILY 03/27/23 07/15/24 History RX: metFORMIN HCL 1,000 mg PO BID 03/27/23 07/15/24 History RX: rOPINIRole HCL [Requip] 1 mg PO HS 03/27/23 07/15/24 History RX: ALPRAZolam [Xanax] 0.5 mg PO BID PRN 06/22/23 07/15/24 History RX: Dapagliflozin Propanediol 5 mg PO DAILY 03/16/24 07/15/24 History [Farxiga] RX: Dulaglutide [Trulicity] 3 mg SQ WE 03/16/24 07/15/24 History RX: Insulin Lispro [humaLOG See Protocol SQ AC-TID 03/16/24 07/15/24 History Kwikpen] RX: Ipratropium-Albuterol Nebulize 3 ml INHALATION RT-TID 03/16/24 07/15/24 History [Duoneb 0.5 mg-3 mg/3 ml Soln] RX: Isosorbide Mononitrate ER 30 mg PO DAILY 03/16/24 07/15/24 History [Imdur] RX: Mag Hydrox/Al Hydrox/Simeth 30 ml PO QID PRN 2 Days #180 ml 05/22/24 07/15/24 Rx [Maalox] Spiriva Respimat 1.25mcg/Actuation 2 puff INHALATION RT-DAILY 05/24/24 07/15/24 History Mist RX: Albuterol Nebulized [Ventolin 2.5 mg INHALATION RT-Q6H PRN 05/31/24 07/15/24 History Nebulized] RX: Ondansetron Odt [Zofran ODT] 4 mg PO Q8HR PRN 05/31/24 07/15/24 History RX: lisinopriL [Zestril] 10 mg PO DAILY 05/31/24 07/15/24 History RX: Cholestyramine (with Sugar) 4 gm PO BID #60 packet 06/03/24 07/15/24 Rx [Questran Packet] RX: Metoprolol Tartrate [Lopressor] 12.5 mg PO BID #60 tab 07/02/24 07/15/24 Rx RX: HYDROcodone/APAP 10-325MG 1 tab PO Q8H PRN #9 tab 07/10/24 07/15/24 Rx [[place] 10-325] Allergies Allergy/AdvReac Type Severity Reaction Status Date / Time No Known Allergies Allergy Verified 07/15/24 10:44 Physical Exam Vitals: Vital Signs Temp Pulse Resp BP Pulse Ox 07/15/24 15:02 98 F 84 18 118/77 84 L 07/15/24 12:30 83 15 152/86 07/15/24 12:00 73 19 97 07/15/24 11:49 98.9 F 101 H 17 178/94 96 07/15/24 09:06 98.0 F 100 28 H 161/110 99 Intake and Output 07/15/24 07/15/24 07/15/24 06:59 14:59 22:59 Other: Weight 90.718 kg PHYSICAL EXAMINATION: Patient is lying in the bed comfortably, no acute distress, awake alert and oriented.. HEENT: Normocephalic. Neck is supple. Pupils reactive. Nostrils clear. Oral cavity is moist. Neck reveals no JVD, carotid bruits, or thyromegaly. CHEST EXAMINATION: Trachea is central. Symmetrical expansion. Lung yeung clear to auscultation and percussion. CARDIAC: Normal S1, S2 with no gallops. No murmurs ABDOMEN: Soft. Bowel sounds present. Patient does have midline incision with enrike in place and tenderness and induration at the lower edge of the incision no purulent drainage noted.. No organomegaly. No abdominal bruits. Extremities: reveal no edema. No clubbing or cyanosis Neurologically awake, alert, oriented x3 with well-coordinated movements. No focal deficits noted Skin: No rash or skin lesions. Psychiatric: Coperative. Nonsuicidal Musculoskeletal: No joint swelling or deformity. Normal range of motion. Results CBC & Chem 7: 07/15/24 09:57 07/15/24 09:57 Labs: Abnormal Lab Results - Last 24 Hours (Table) 07/15/24 07/15/24 07/15/24 Range/Units 09:57 09:57 09:57 RDW 18.5 H (11.5-15.5) % Plt Count 537 H (150-450) k/uL BUN 6 L (7-17) mg/dL Glucose 136 H (74-99) mg/dL Plasma Lactic Acid Sarthak 2.6 H* (0.7-2.0) mmol/L Calcium 10.8 H (8.4-10.2) mg/dL AST 72 H (14-36) U/L ALT 72 H (4-34) U/L Alkaline Phosphatase 259 H (38-126) U/L Thrombosis Risk Factor Assmnt - DVT/VTE Prophylaxis DVT/VTE Prophylaxis: Pharmacologic Prophylaxis ordered Assessment and Plan Assessment: Abdominal pain with CT finding of organized fluid collection likely abscess at the surgical incision site. Recent admission with intractable mural wall abscess status post open ileectomy with drain placement. Patient was discharged on 07/04/2024 Mild transaminitis Diabetes type 2 [id number] Coronary artery disease history of CABG and multiple stent placement Hypertension Hyperlipidemia COPD GERD History of [place] DJD, scoliosis Anxiety and bipolar disorder Currently everyday smoker and history of marijuana use DVT prophylaxis with heparin subcu Plan: Patient will be continued on antibiotics vancomycin and Zosyn and continue with IV hydration and pain management. General surgery was consulted for possible I&D and ID evaluation. Continue with blood pressure medications as tolerated. Aspirin and Plavix is on hold. Insulin sliding scale for better blood sugar control. Follow-up liver enzymes. Continue to follow closely. Time with Patient: Greater than 30
[2024-07-15] MEDS: PANTOPRAZOLE 40 MG TABLET PO SCH (20:59)
[2024-07-15] MEDS: RANOLAZINE 500 MG TAB.ER.12H PO SCH (21:04)
[2024-07-15 21:08] LABS: Glucose,Whole Blood 90 mg/dL (70-110)
[2024-07-15] MEDS: METOPROLOL TARTRATE 12.5 MG TAB PO SCH (21:14)
[2024-07-15] MEDS: ALPRAZolam 0.5 MG TAB PO PRN (21:14)
[2024-07-15] MEDS: VANCOMYCIN 1,500 MG in SODIUM CHLORIDE 0.9% 500 ML 500 ML IVPB SCH (21:16)
[2024-07-15] MEDS: IPRATROPIUM-ALBUTEROL 3 ML NEB INHALATION SCH (21:26)
[2024-07-15] MEDS: SYMBICORT 160-4.5 MCG INHALER INHALATION SCH (21:26)
[2024-07-16] MEDS: HEPARIN SODIUM,PORCINE 5,000 UNIT/ML 1 ML VIAL SQ SCH (00:13)
[2024-07-16 06:14] LABS: Glucose,Whole Blood 96 mg/dL (70-110)
[2024-07-16 06:20] LABS: African American GFR (CKD) >90 (>60 ml/min/1.73 sqM); Non-African American GFR(CKD) >90 (>60 ml/min/1.73 sqM)
[2024-07-16] MEDS: ONDANSETRON 4 MG/2 ML VIAL IVP PRN (06:44)
[2024-07-16] MEDS: HYDROcodone/APAP 10-325MG 1 EACH TAB PO PRN (08:04)
[2024-07-16] MEDS: ISOSORBIDE MONONITRATE ER 30 MG TAB.ER.24H PO SCH (08:04)
[2024-07-16] MEDS: ATORVASTATIN 80 MG TAB PO SCH (08:07)
[2024-07-16 11:27] LABS: Anisocytosis Slight; Basophils % (A) 1 %; Eosinophils # (A) 0.5 k/uL (0-0.7); Eosinophils % (A) 9 %; HCT 33.4 % (34.0-46.0); HGB 10.1 gm/dL (11.4-16.0); Hypochromasia Marked; Lymphocytes # (A) 2.1 k/uL (1.0-4.8); Lymphocytes % (A) 39 %; MCH 28.2 pg (25.0-35.0); MCHC 30.1 g/dL (31.0-37.0); MCV 93.7 fL (80.0-100.0); Mean Platelet Volume 7.7; Monocytes # (A) 0.3 k/uL (0-1.0); Monocytes % (A) 5 %; Neutrophils # (A) 2.3 k/uL (1.3-7.7); Neutrophils % (A) 42 %; Platelet Count 386 k/uL (150-450); RBC 3.57 m/uL (3.80-5.40); RDW 18.2 % (11.5-15.5); WBC 5.4 k/uL (3.8-10.6)
[2024-07-16 11:36] LABS: ALT 46 U/L (4-34); AST 64 U/L (14-36); African American GFR (CKD) >90 (>60 ml/min/1.73 sqM); Albumin 3.3 g/dL (3.5-5.0); Albumin/Globulin Ratio 1.4; Alkaline Phosphatase 171 U/L (38-126); Anion Gap 6 mmol/L; Blood Urea Nitrogen 8 mg/dL (7-17); Calcium 8.7 mg/dL (8.4-10.2); Carbon Dioxide 19 mmol/L (22-30); Chloride 114 mmol/L (98-107); Globulin 2.3 g/dL; Glucose 99 mg/dL (74-99); Non-African American GFR(CKD) >90 (>60 ml/min/1.73 sqM); Potassium 3.7 mmol/L (3.5-5.1); Sodium 139 mmol/L (137-145); Total Bilirubin 0.5 mg/dL (0.2-1.3); Total Protein 5.6 g/dL (6.3-8.2)
[2024-07-16 12:35] LABS: Glucose,Whole Blood 84 mg/dL (70-110)
--- NOTE | 2024-07-16 12:44 | P.GSCN ---
History of Present Illness Consult date: 07/16/24 History of present illness: CHIEF COMPLAINT: Abdominal pain HISTORY OF PRESENT ILLNESS: This is a 53-year-old female who presented to the emergency room with complaints of abdominal pain. She reports increased pain at the lower aspect of the abdominal incision. She she has had no drainage from the incision. She denies any fever chills or sweats. She also had a few episodes of vomiting. Patient had a CT scan of the abdomen that reported anterior abdominal wall organized fluid collection most consistent with an abscess at surgical incision site. Patient is status post diagnostic laparoscopy converted to open with ileocecectomy for colitis with intramural ab scess on 06/14/2024 and on 06/22/2024 taken back to the OR for exploratory laparotomy with extensive lysis of adhesions and small bowel resection x 2 and proximal right colon resection for small bowel obstruction secondary to adhesions and inflammation. Patient was just recently hospitalized July 05 and at that time treated for an abdominal ileus. PAST MEDICAL HISTORY: See below PAST SURGICAL HISTORY: See below MEDICATIONS: See below ALLERGIES: See below SOCIAL HISTORY: No illicit drug use. REVIEW OF SYSTEMS: CONSTITUTIONAL: Denies fever or chills. HEENT: Denies blurred vision, vision changes, or eye pain. Denies hemoptysis CARDIOVASCULAR: Denies chest pain or pressure. RESPIRATORY: No shortness of breath. GASTROINTESTINAL: See HPI for pertinent findings HEMATOLOGIC: Denies bleeding disorders. GENITOURINARY: Denies any blood in urine or increased urinary frequency. SKIN: Denies pruitis. Denies rash. PHYSICAL EXAM: VITAL SIGNS: Reviewed GENERAL: Well-developed in no acute distress. HEENT: No sclera icterus. Extraocular movements grossly intact. Moist buccal mucosa. Head is atraumatic, normocephalic. No nasal drainage. ABDOMEN: Soft. Nondistended. Patient has a firmness noted at the distal aspect of the incision. No drainage. No erythema at the incision site. She also has some mild tenderness in the upper abdomen at the proximal aspect of the incision. NEUROLOGIC: Alert and oriented. Cranial nerves II through XII grossly intact. LABORATORY DATA: WBC 5.4 Hgb down from 12.8-10.1 platelets 386 Sodium is 139 potassium 3.7 creatinine 0.64 Lactic acid 2.6 down to 1.4 LFTs trending down IMAGING: CT scan abdomen pelvis as stated above ASSESSMENT: 1. Postoperative seroma at incision site. CT scan reporting anterior abdominal wall organized fluid collection PLAN: -Consult IR service for drainage of fluid collection -Send fluid for culture -Continue antibiotics -Continue pain management Physician Creative Art Director note has been reviewed by physician. Signing provider agrees with the documented findings, assessment, and plan of care. Past Medical History Past Medical History: Asthma, Coronary Artery Disease (CAD), COPD, Diabetes Mellitus, GERD/Reflux, Hypertension, Myocardial Infarction ([place]), Osteoarthritis ([place]) Additional Past Medical History / Comment(s): DDD, scoliosis, [place] x4 Last Myocardial Infarction Date:: 2011 History of Any Multi-Drug Resistant Organisms: None Reported Past Surgical History: Coronary Bypass/CABG, Heart Catheterization With Stent Additional Past Surgical History / Comment(s): seven stents, here for gastroenteritis with abcess (removal 06/21/24), per pt 2 ABD procedures at the same area. Past Anesthesia/Blood Transfusion Reactions: No Reported Reaction Date of Last Stent Placement:: 11/2018 Past Psychological History: Anxiety, Bipolar Smoking Status: Current every day smoker Past Alcohol Use History: None Reported Additional Past Alcohol Use History / Comment(s): 1 ppd Past Drug Use History: Marijuana - Past Family History Mother Family Medical History: Cancer Additional Family Medical History / Comment(s): Ovarian cancer Father Family Medical History: Congestive Heart Failure (CHF) Fmily Family Medical History: No Reported History Medications and Allergies Home Medications Medication Instructions Recorded Confirmed Type Atorvastatin [Lipitor] 80 mg PO DAILY 07/08/20 07/15/24 History Ranolazine [Ranexa] 1,000 mg PO BID 11/13/21 07/15/24 History Albuterol Inhaler [Ventolin Hfa 2 puff INHALATION RT-QID PRN 03/27/23 07/15/24 History Inhaler] Aspirin EC [Ecotrin Low Dose] 81 mg PO DAILY 03/27/23 07/15/24 History Budesonide/Formoterol Fumarate 2 puff INHALATION RT-BID 03/27/23 07/15/24 History [Symbicort 160-4.5 Mcg Inhaler] Clopidogrel [Plavix] 75 mg PO DAILY 03/27/23 07/15/24 History Nitroglycerin Sl Tabs [Nitrostat] 0.4 mg SL Q5M PRN 03/27/23 07/15/24 History Omeprazole 40 mg PO BID 03/27/23 07/15/24 History Pregabalin [Lyrica] 150 mg PO TID 03/27/23 07/15/24 History amLODIPine [Norvasc] 10 mg PO DAILY 03/27/23 07/15/24 History metFORMIN HCL 1,000 mg PO BID 03/27/23 07/15/24 History rOPINIRole HCL [Requip] 1 mg PO HS 03/27/23 07/15/24 History ALPRAZolam [Xanax] 0.5 mg PO BID PRN 06/22/23 07/15/24 History Dapagliflozin Propanediol [Farxiga] 5 mg PO DAILY 03/16/24 07/15/24 History Dulaglutide [Trulicity] 3 mg SQ WE 03/16/24 07/15/24 History Insulin Lispro [humaLOG Kwikpen] See Protocol SQ AC-TID 03/16/24 07/15/24 History Ipratropium-Albuterol Nebulize 3 ml INHALATION RT-TID 03/16/24 07/15/24 History [Duoneb 0.5 mg-3 mg/3 ml Soln] Isosorbide Mononitrate ER [Imdur] 30 mg PO DAILY 03/16/24 07/15/24 History Mag Hydrox/Al Hydrox/Simeth 30 ml PO QID PRN 2 Days #180 ml 05/22/24 07/15/24 Rx [Maalox] Spiriva Respimat 1.25mcg/Actuation 2 puff INHALATION RT-DAILY 05/24/24 07/15/24 History Mist Albuterol Nebulized [Ventolin 2.5 mg INHALATION RT-Q6H PRN 05/31/24 07/15/24 History Nebulized] Ondansetron Odt [Zofran ODT] 4 mg PO Q8HR PRN 05/31/24 07/15/24 History lisinopriL [Zestril] 10 mg PO DAILY 05/31/24 07/15/24 History Cholestyramine (with Sugar) 4 gm PO BID #60 packet 06/03/24 07/15/24 Rx [Questran Packet] Metoprolol Tartrate [Lopressor] 12.5 mg PO BID #60 tab 07/02/24 07/15/24 Rx HYDROcodone/APAP 10-325MG [[place] 1 tab PO Q8H PRN #9 tab 07/10/24 07/15/24 Rx 10-325] Allergies Allergy/AdvReac Type Severity Reaction Status Date / Time No Known Allergies Allergy Verified 07/15/24 10:44 Surgical - Exam Osteopathic Statement: *. No significant issues noted on an osteopathic structural exam other than those noted in the History and Physical/Consult. Vital Signs Temp Pulse Resp BP Pulse Ox 98.0 F 100 28 H 161/110 99 07/15/24 09:06 07/15/24 09:06 07/15/24 09:06 07/15/24 09:06 07/15/24 09:06 Results - Labs 07/16/24 11:18 07/16/24 11:18 Diabetes panel 07/16/24 07/16/24 Range/Units 05:31 05:31 Creatinine 0.63 (0.52-1.04) mg/dL Hemoglobin A1c 5.0 (<=6.0) % Pituitary panel 07/16/24 Range/Units 05:31 Creatinine 0.63 (0.52-1.04) mg/dL Adrenal panel 07/16/24 Range/Units 05:31 Creatinine 0.63 (0.52-1.04) mg/dL Assessment and Plan Assessment: 53 yo female w/ post op surgical site fluid collection -discussed w/ IR not able to cannulate fluid collection -will attempt to open up at bedside. -continue abx Time with Patient: Less than 30
[2024-07-16] MEDS: CEFEPIME 2 GM in SODIUM CHLORIDE 0.9% 100 ML IVPB SCH (15:51)
[2024-07-16 17:27] LABS: Glucose,Whole Blood 132 mg/dL (70-110)
[2024-07-16 20:08] LABS: Glucose,Whole Blood 142 mg/dL (70-110)
--- NOTE | 2024-07-16 22:17 | P.CONS ---
History of Present Illness - Reason for Consult Consult date: 07/16/24 Surgical wound infection/abscess Requesting physician: Valorie Nelson - Chief Complaint Abdominal pain and vomiting x 1 day - History of Present Illness Patient is a 53-year-old female with a past medical history significant for diabetes mellitus COPD coronary disease recent admission to the hospital and was treated for intramural abscess in this patient who is status post diagnosis laparoscopy converted to open laparotomy with ileocecectomy for colitis with intramural abscess on 06/14/2024 subsequently was taken back to the OR on 06/22/2024 for respiratory laparotomy and extensive lysis of adhesion small bowel resection x 2 patient was stabilized and discharged home on IV by therapy and she was admitted to this facility about a week ago with intractable nausea vomiting he did have a CT abdominal pelvis at that time did not show any abscess she did have elevated liver enzymes there was concern for possible related to her antibiotic those were discontinued and the patient was discharged home patient mention she was doing well until yesterday when she started throwing up and could not keep anything down patient is also complaining of some abdominal discomfort mostly in the upper abdominal area describing the pain to be sharp moderate intense without radiation patient denies fever and chills and no fever have been recorded on presentation to hospital or subsequently patient was not tachycardic hypotensive or hypoxic patient did have white count of 9.3 with no left shift creatinine has been normal liver isms are elevated but improved from previous admission patient did have abdominal pelvis CT anterior abdominal wall organized fluid collection most consistent with an abscess at the surgical incision site patient has been admitted to hospital she was started on vancomycin and Zosyn infectious disease was consulted for further management of antibiotic therapy Review of Systems Positive point and negatives has been mentioned in the HPI, complete review of systems was performed and all other systems are negative Past Medical History Past Medical History: Asthma, Coronary Artery Disease (CAD), COPD, Diabetes Mellitus, GERD/Reflux, Hypertension, Myocardial Infarction ([place]), Osteoarthritis (OA) Additional Past Medical History / Comment(s): DDD, scoliosis, [place] x4 Last Myocardial Infarction Date:: 2011 History of Any Multi-Drug Resistant Organisms: None Reported Past Surgical History: Coronary Bypass/CABG, Heart Catheterization With Stent Additional Past Surgical History / Comment(s): seven stents, here for gastroenteritis with abcess (removal 06/21/24), per pt 2 ABD procedures at the same area. Past Anesthesia/Blood Transfusion Reactions: No Reported Reaction Date of Last Stent Placement:: 11/2018 Past Psychological History: Anxiety, Bipolar Smoking Status: Current every day smoker Past Alcohol Use History: None Reported Additional Past Alcohol Use History / Comment(s): 1 ppd Past Drug Use History: Marijuana - Past Family History Mother Family Medical History: Cancer Additional Family Medical History / Comment(s): Ovarian cancer Father Family Medical History: Congestive Heart Failure (CHF) Fmily Family Medical History: No Reported History Medications and Allergies Home Medications Medication Instructions Recorded Confirmed Type Atorvastatin [Lipitor] 80 mg PO DAILY 07/08/20 07/15/24 History Ranolazine [Ranexa] 1,000 mg PO BID 11/13/21 07/15/24 History Albuterol Inhaler [Ventolin Hfa 2 puff INHALATION RT-QID PRN 03/27/23 07/15/24 History Inhaler] Aspirin EC [Ecotrin Low Dose] 81 mg PO DAILY 03/27/23 07/15/24 History Budesonide/Formoterol Fumarate 2 puff INHALATION RT-BID 03/27/23 07/15/24 History [Symbicort 160-4.5 Mcg Inhaler] Clopidogrel [Plavix] 75 mg PO DAILY 03/27/23 07/15/24 History Nitroglycerin Sl Tabs [Nitrostat] 0.4 mg SL Q5M PRN 03/27/23 07/15/24 History Omeprazole 40 mg PO BID 03/27/23 07/15/24 History Pregabalin [Lyrica] 150 mg PO TID 03/27/23 07/15/24 History amLODIPine [Norvasc] 10 mg PO DAILY 03/27/23 07/15/24 History metFORMIN HCL 1,000 mg PO BID 03/27/23 07/15/24 History rOPINIRole HCL [Requip] 1 mg PO HS 03/27/23 07/15/24 History ALPRAZolam [Xanax] 0.5 mg PO BID PRN 06/22/23 07/15/24 History Dapagliflozin Propanediol [Farxiga] 5 mg PO DAILY 03/16/24 07/15/24 History Dulaglutide [Trulicity] 3 mg SQ WE 03/16/24 07/15/24 History Insulin Lispro [humaLOG Kwikpen] See Protocol SQ AC-TID 03/16/24 07/15/24 History Ipratropium-Albuterol Nebulize 3 ml INHALATION RT-TID 03/16/24 07/15/24 History [Duoneb 0.5 mg-3 mg/3 ml Soln] Isosorbide Mononitrate ER [Imdur] 30 mg PO DAILY 03/16/24 07/15/24 History Mag Hydrox/Al Hydrox/Simeth 30 ml PO QID PRN 2 Days #180 ml 05/22/24 07/15/24 Rx [Maalox] Spiriva Respimat 1.25mcg/Actuation 2 puff INHALATION RT-DAILY 05/24/24 07/15/24 History Mist Albuterol Nebulized [Ventolin 2.5 mg INHALATION RT-Q6H PRN 05/31/24 07/15/24 History Nebulized] Ondansetron Odt [Zofran ODT] 4 mg PO Q8HR PRN 05/31/24 07/15/24 History lisinopriL [Zestril] 10 mg PO DAILY 05/31/24 07/15/24 History Cholestyramine (with Sugar) 4 gm PO BID #60 packet 06/03/24 07/15/24 Rx [Questran Packet] Metoprolol Tartrate [Lopressor] 12.5 mg PO BID #60 tab 07/02/24 07/15/24 Rx HYDROcodone/APAP 10-325MG [[place] 1 tab PO Q8H PRN #9 tab 07/10/24 07/15/24 Rx 10-325] Allergies Allergy/AdvReac Type Severity Reaction Status Date / Time No Known Allergies Allergy Verified 07/15/24 10:44 Physical Exam Vitals: Vital Signs Temp Pulse Pulse Resp BP BP Pulse Ox 07/16/24 08:39 68 07/16/24 08:26 64 07/16/24 08:01 98.1 F 59 L 18 108/65 95 07/16/24 06:50 97.9 F 69 16 128/84 96 07/16/24 03:22 98.3 F 72 20 136/83 96 07/16/24 02:00 72 20 07/15/24 21:38 69 07/15/24 21:27 71 07/15/24 20:54 98.0 F 66 19 155/84 96 07/15/24 15:02 98 F 84 18 118/77 84 L 07/15/24 12:30 83 15 152/86 07/15/24 12:00 73 19 97 07/15/24 11:49 98.9 F 101 H 17 178/94 96 Intake and Output 07/15/24 07/16/24 07/16/24 22:59 06:59 14:59 Intake Total 0 Balance 0 Intake: Oral 0 Other: Voiding Method Toilet Toilet Toilet Weight 90.718 kg GENERAL DESCRIPTION: Middle-aged female lying in bed, no distress. No tachypnea or accessory muscle of respiration use. HEENT: Shows Pallor , no scleral icterus. Oral mucous membrane is dry. No pharyngeal erythema or thrush NECK: Trachea central, no thyromegaly. LUNGS: Unlabored breathing. Clear to auscultation anteriorly. No wheeze or crackle. HEART: S1, S2, regular rate and rhythm. No loud murmur ABDOMEN: Soft, mild tenderness EXTREMITIES: No edema of feet. SKIN: No rash, no masses palpable. NEUROLOGICAL: The patient is awake, alert, oriented x3, mood and affect normal. Results CBC & Chem 7: 07/16/24 11:18 07/16/24 11:18 Labs: Abnormal Lab Results - Last 24 Hours (Table) 07/16/24 07/16/24 Range/Units 11:18 11:18 RBC 3.57 L (3.80-5.40) m/uL Hgb 10.1 L (11.4-16.0) gm/dL Hct 33.4 L (34.0-46.0) % MCHC 30.1 L (31.0-37.0) g/dL RDW 18.2 H (11.5-15.5) % Chloride 114 H (98-107) mmol/L Carbon Dioxide 19 L (22-30) mmol/L AST 64 H (14-36) U/L ALT 46 H (4-34) U/L Alkaline Phosphatase 171 H (38-126) U/L Total Protein 5.6 L (6.3-8.2) g/dL Albumin 3.3 L (3.5-5.0) g/dL Assessment and Plan (1) Abdominal wall abscess Current Visit: Yes Status: Acute Code(s): L02.211 - CUTANEOUS ABSCESS OF ABDOMINAL WALL SNOMED Code(s): 02857953 (2) Postoperative abscess Current Visit: Yes Status: Acute Code(s): T81.49XA - INFECTION FOLLOWING A PROCEDURE, OTHER SURGICAL SITE, INIT SNOMED Code(s): 046150509 Plan: 1patient presented to hospital with abdominal pain and vomiting in this patient who did have abnormal CT suggestive of abdominal wall abscess however the patient not running any fever did not have an elevated white count question of seroma abscess not entirely excluded and will need to hold for resistant gram- positive as well as gram-negative pathogen. 2await IR drainage of this fluid collection which should be sent for culture both aerobic and anaerobic. 3continue with vancomycin however switch Zosyn to cefepime to decrease risk of nephrotoxicity. We will follow on clinical condition and cultures to further adjust medication if needed Thank you for this consultation we will follow the patient along with you Dictation was produced using [employer] dictation software. please excuse any gramm atical, word or spelling errors. Time with Patient: Greater than 30
[2024-07-17 07:03] LABS: Glucose,Whole Blood 94 mg/dL (70-110)
--- NOTE | 2024-07-17 10:29 | P.PN ---
Subjective Progress Note Date: 07/16/24 Patient is a with known history of CAD status post CABG and multiple stent placement, hypertension, diabetes type 2 [id number], hyperlipidemia, COPD presents to ER with complaints of abdominal pain. Patient was recently discharged the hospital on 07/04/2024, was treated for colitis with intramural wall abscess status post open ileectomy with drain placement and removal. Patient was discharged home with home health care. Patient states that after discharge she felt good for 2 days and started having abdominal pain. Since yesterday patient has been having worsening pain and unable to keep down food. Denied any complaints of fever or chills. No complaints of nausea or vomiting. Patient was also having shortness of breath when she had pain. No diarrhea. No cough or sputum production. Patient had recess visited by Dr. Packer CT of the abdomen pelvis showed anterior abdominal wall organized fluid collection most consistent with an abscess at surgical site incision site. Postsurgical changes of the bowel. EKG showed sinus rhythm with heart rate 93 Laboratory showed WBC 9.3 hemoglobin 12.8 and platelets 537 sodium 140 potassium 3.9 chloride 102 bicarb is 24 BUN 16 creatinine 0.68 and blood sugar 136 and lactic acid 2.6 and calcium 10.8 AST 22 ALT 72 and alk phos 259 and lipase 53 07/16/2024 Patient is resting in the bed. Awake alert and oriented x 3. Abdominal pain is better today. No complaints of chest pain or shortness of breath. Patient has been afebrile. Currently on IV antibiotics vancomycin and cefepime. Laboratory data showed WBC 5.4 hemoglobin 10.1 platelets 386 sodium 139 potassium 3.7 chloride 114 bicarb is 19 BUN 8 and creatinine 0.64 liver enzymes are trending down with AST 64 ALT 46 and alk phos 171 ID and general surgery is on board. Current medications reviewed. Objective - Vital Signs Vital signs: Vital Signs Temp 98.1 F 07/16/24 08:01 Pulse 68 07/16/24 08:39 Resp 18 07/16/24 08:01 BP 108/65 07/16/24 08:01 Pulse Ox 95 07/16/24 08:01 FiO2 Intake & Output 07/15/24 07/16/24 07/16/24 18:59 06:59 18:59 Intake Total 0 Balance 0 Weight 90.718 kg 90.718 kg Intake: Oral 0 Other: Voiding Method Toilet Toilet - Exam PHYSICAL EXAMINATION: Patient is lying in the bed comfortably, no acute distress, awake alert and oriented.. HEENT: Normocephalic. Neck is supple. Pupils reactive. Nostrils clear. Oral cavity is moist. Neck reveals no JVD, carotid bruits, or thyromegaly. CHEST EXAMINATION: Trachea is central. Symmetrical expansion. Lung yeung clear to auscultation and percussion. CARDIAC: Normal S1, S2 with no gallops. No murmurs ABDOMEN: Soft. Bowel sounds present. Patient does have midline incision with enrike in place and tenderness and induration at the lower edge of the incision no purulent drainage noted.. No organomegaly. No abdominal bruits. Extremities: reveal no edema. No clubbing or cyanosis Neurologically awake, alert, oriented x3 with well-coordinated movements. No focal deficits noted Skin: No rash or skin lesions. Psychiatric: Coperative. Nonsuicidal Musculoskeletal: No joint swelling or deformity. Normal range of motion. - Labs CBC & Chem 7: 07/16/24 11:18 07/16/24 11:18 Labs: Abnormal Lab Results - Last 24 Hours (Table) 07/15/24 Range/Units 09:57 Plasma Lactic Acid Sarthak 2.6 H* (0.7-2.0) mmol/L Assessment and Plan Assessment: Abdominal pain with CT finding of organized fluid collection likely abscess at the surgical incision site. Recent admission with intractable mural wall abscess status post open ileectomy with drain placement. Patient was discharged on 07/04/2024 Mild transaminitis Diabetes type 2 [id number] Coronary artery disease history of CABG and multiple stent placement Hypertension Hyperlipidemia COPD GERD History of [place] DJD, scoliosis Anxiety and bipolar disorder Currently everyday smoker and history of marijuana use DVT prophylaxis with heparin subcu Plan: Patient will be continued on antibiotics vancomycin and Zosyn and continue with IV hydration and pain management. General surgery and ID is on board. IR consult for abscess drainage. Continue with blood pressure medications as tolerated. Aspirin and Plavix is on hold. Insulin sliding scale for better blood sugar control. Follow-up liver enzymes. Continue to follow closely. Time with Patient: Greater than 30
[2024-07-17 10:35] LABS: Anisocytosis Slight; HCT 33.4 % (34.0-46.0); HGB 10.2 gm/dL (11.4-16.0); Hypochromasia Marked; MCH 27.5 pg (25.0-35.0); MCHC 30.5 g/dL (31.0-37.0); MCV 90.2 fL (80.0-100.0); Mean Platelet Volume 8.5; Platelet Count 289 k/uL (150-450); RBC 3.71 m/uL (3.80-5.40); RDW 17.7 % (11.5-15.5); WBC 5.7 k/uL (3.8-10.6)
[2024-07-17 10:47] LABS: African American GFR (CKD) >90 (>60 ml/min/1.73 sqM); Anion Gap 8 mmol/L; Blood Urea Nitrogen 5 mg/dL (7-17); Calcium 8.9 mg/dL (8.4-10.2); Carbon Dioxide 21 mmol/L (22-30); Chloride 110 mmol/L (98-107); Glucose 128 mg/dL (74-99); Non-African American GFR(CKD) >90 (>60 ml/min/1.73 sqM); Potassium 3.5 mmol/L (3.5-5.1); Sodium 139 mmol/L (137-145)
[2024-07-17] MEDS: VANCOMYCIN TROUGH DUE 1 EACH MISC MISCELLANE ONE (11:17)
[2024-07-17] MEDS: PATIENT'S OWN (Dulaglutide [Trulicity] 3 MG/0.5 ML Each) SQ SCH (11:28)
[2024-07-17] MEDS: PREGABALIN 75 MG CAP PO SCH (11:33)
[2024-07-17 12:14] LABS: Glucose,Whole Blood 126 mg/dL (70-110)
[2024-07-17 12:44] VITALS: BMI 33.3
--- NOTE | 2024-07-17 15:42 | P.PN ---
Subjective Progress Note Date: 07/17/24 CHIEF COMPLAINT: Abdominal pain HISTORY OF PRESENT ILLNESS: Patient continues to report abdominal pain. She was noted to have anterior abdominal wall fluid collection on CAT scan. IR is unable to drain fluid. Dr. Dubois did remove enrike from the midline incision today. No significant drainage. Afebrile. WBC 5.7 PHYSICAL EXAM: VITAL SIGNS: Reviewed. GENERAL: Well-developed in no acute distress. ABDOMEN: Soft. Nondistended. Midline incision enrike have been removed. The distal aspect of the incision has a small area with very minimal serosanguineous drainage noted. NEUROLOGIC: Alert and oriented. Cranial nerves II through XII grossly intact. ASSESSMENT: 1. Fluid collection on anterior abdominal wall likely a postoperative seroma PLAN: -Further recommendations forthcoming per surgeon. Dr. Dubois may try to aspirate the fluid at the bedside tomorrow. -Continue antibiotics per ID service. ID service did adjust antibiotics. -Continue pain management Physician Loading Unit Operator [employer] note has been reviewed by physician. Signing provider agrees with the documented findings, assessment, and plan of care. Objective - Vital Signs Vital signs: Vital Signs Temp 97.9 F 07/17/24 13:27 Pulse 79 07/17/24 13:27 Resp 18 07/17/24 13:27 BP 134/83 07/17/24 13:27 Pulse Ox 96 07/17/24 13:27 FiO2 Intake & Output 07/16/24 07/17/24 07/17/24 18:59 06:59 18:59 Intake Total 240 590 480 Balance 240 590 480 Weight 90.718 kg Intake: Oral 240 590 480 Other: Voiding Method Toilet Toilet # Voids 3 2 - Labs CBC & Chem 7: 07/18/24 06:00 07/18/24 06:00 Labs: Abnormal Lab Results - Last 24 Hours (Table) 07/16/24 07/16/24 07/17/24 Range/Units 17:25 20:07 09:51 RBC (3.80-5.40) m/uL Hgb (11.4-16.0) gm/dL Hct (34.0-46.0) % MCHC (31.0-37.0) g/dL RDW (11.5-15.5) % Chloride 110 H (98-107) mmol/L Carbon Dioxide 21 L (22-30) mmol/L BUN 5 L (7-17) mg/dL Glucose 128 H (74-99) mg/dL POC Glucose (mg/dL) 132 H 142 H (70-110) mg/dL 07/17/24 07/17/24 Range/Units 09:51 12:12 RBC 3.71 L (3.80-5.40) m/uL Hgb 10.2 L (11.4-16.0) gm/dL Hct 33.4 L (34.0-46.0) % MCHC 30.5 L (31.0-37.0) g/dL RDW 17.7 H (11.5-15.5) % Chloride (98-107) mmol/L Carbon Dioxide (22-30) mmol/L BUN (7-17) mg/dL Glucose (74-99) mg/dL POC Glucose (mg/dL) 126 H (70-110) mg/dL Assessment and Plan Assessment: 53 yo female w/ surgical site fluid collection -will attempt drainage at bedside -possible aspiration if not able to spontaneously drain Time with Patient: Greater than 30
[2024-07-17 17:04] LABS: Glucose,Whole Blood 108 mg/dL (70-110)
[2024-07-17 20:17] LABS: Glucose,Whole Blood 148 mg/dL (70-110)
[2024-07-18] MEDS: VANCOMYCIN 1,500 MG in SODIUM CHLORIDE 0.9% 500 ML 500 ML IVPB SCH (03:38)
--- NOTE | 2024-07-18 05:32 | P.PN ---
Subjective Progress Note Date: 07/17/24 Patient is a with known history of CAD status post CABG and multiple stent placement, hypertension, diabetes type 2 [id number], hyperlipidemia, COPD presents to ER with complaints of abdominal pain. Patient was recently discharged the hospital on 07/04/2024, was treated for colitis with intramural wall abscess status post open ileectomy with drain placement and removal. Patient was discharged home with home health care. Patient states that after discharge she felt good for 2 days and started having abdominal pain. Since yesterday patient has been having worsening pain and unable to keep down food. Denied any complaints of fever or chills. No complaints of nausea or vomiting. Patient was also having shortness of breath when she had pain. No diarrhea. No cough or sputum production. Patient had recess visited by Dr. Packer CT of the abdomen pelvis showed anterior abdominal wall organized fluid collection most consistent with an abscess at surgical site incision site. Postsurgical changes of the bowel. EKG showed sinus rhythm with heart rate 93 Laboratory showed WBC 9.3 hemoglobin 12.8 and platelets 537 sodium 140 potassium 3.9 chloride 102 bicarb is 24 BUN 16 creatinine 0.68 and blood sugar 136 and lactic acid 2.6 and calcium 10.8 AST 22 ALT 72 and alk phos 259 and lipase 53 07/16/2024 Patient is resting in the bed. Awake alert and oriented x 3. Abdominal pain is better today. No complaints of chest pain or shortness of breath. Patient has been afebrile. Currently on IV antibiotics vancomycin and cefepime. Laboratory data showed WBC 5.4 hemoglobin 10.1 platelets 386 sodium 139 potassium 3.7 chloride 114 bicarb is 19 BUN 8 and creatinine 0.64 liver enzymes are trending down with AST 64 ALT 46 and alk phos 171 ID and general surgery is on board. 07/17/2024 Patient is seen in follow-up this morning currently laying in bed reporting continued abdominal pain. Per nursing staff patient is a difficult IV start and has lost IV access will order midline. General surgery following and patient is maintained on IV antibiotics with infectious disease following. Plan for possible fluid collection drainage and currently pending at this time. Patient is afebrile with no reports of chest pain or shortness of breath. Patient does continue to report abdominal pain and will review other home medications and resume as appropriate Review of systems: Constitutional: No reports of fatigue, fever, or chills Cardiovascular: No reports of chest pain or palpitations Respiratory: No reports of shortness of breath or cough GI: reports of nausea, no vomiting, reports continued abdominal pain and discomfort : No reports of dysuria or retention Neurovascular: No reports of weakness or numbness All medications have been reviewed Physical exam: Patient is lying in the bed comfortably, no acute distress, awake alert and oriented.. HEENT: Normocephalic. Neck is supple. Pupils reactive. Nostrils clear. Oral cavity is moist. Neck reveals no JVD, carotid bruits, or thyromegaly. CHEST EXAMINATION: Trachea is central. Symmetrical expansion. Lung yeung clear to auscultation and percussion. CARDIAC: Normal S1, S2 with no gallops. No murmurs ABDOMEN: Soft. Bowel sounds present. Patient does have midline incision with enrike in place and tenderness and induration at the lower edge of the incision no purulent drainage noted.. No organomegaly. No abdominal bruits. Extremities: reveal no edema. No clubbing or cyanosis Neurologically awake, alert, oriented x3 with well-coordinated movements. No focal deficits noted Skin: No rash or skin lesions. Psychiatric: Coperative. Nonsuicidal Musculoskeletal: No joint swelling or deformity. Normal range of motion. Assessment: Abdominal pain with CT finding of organized fluid collection likely abscess at the surgical incision site. Plan for possible drainage of the site Recent admission with intractable mural wall abscess status post open ileectomy with drain placement. Patient was discharged on 07/04/2024 Mild transaminitis Diabetes type 2 [id number] Coronary artery disease history of CABG and multiple stent placement Hypertension Hyperlipidemia COPD GERD History of [place] DJD, scoliosis Anxiety and bipolar disorder Currently everyday smoker and history of marijuana use DVT prophylaxis with heparin subcu GI prophylaxis Full code Plan: Patient will be continued on antibiotics in the form of vancomycin and Zosyn and continue with IV hydration and pain management. General surgery and ID following and interventional radiology has been consulted for possible abscess drainage Continue with blood pressure medications as tolerated. Aspirin and Plavix is on hold. Will resume other appropriate medications as patient has multiple medications Continue Accu-Cheks before meals and at bedtime and will continue with current insulin regimen and adjust accordingly Monitor liver functions. Due to multiple complex medical issues, overall prognosis is guarded The impression and plan of care has been dictated by Lesia Rivera, Nurse Practitioner as directed. Dr. Omar MD I have performed a history and examination and MDM of this patient, discussed the same with the dictator, and agree with the dictator's assessment and plan as written ,documented as a scribe. Based on total visit time, I have performed more than 50% of the visit. Objective - Vital Signs Vital signs: Vital Signs Temp 98.0 F 07/18/24 01:21 Pulse 78 07/18/24 01:21 Resp 18 07/18/24 01:21 BP 150/96 07/18/24 01:21 Pulse Ox 94 L 07/18/24 01:21 FiO2 Intake & Output 07/17/24 07/17/24 07/18/24 06:59 18:59 06:59 Intake Total 590 2340 Balance 590 2340 Weight 90.718 kg Intake: Oral 590 2340 Other: Voiding Method Toilet Toilet Toilet # Voids 2 6 2 # Bowel Movements 1 - Labs CBC & Chem 7: 07/17/24 09:51 07/17/24 09:51 Labs: Abnormal Lab Results - Last 24 Hours (Table) 07/17/24 07/17/24 07/17/24 Range/Units 09:51 09:51 12:12 RBC 3.71 L (3.80-5.40) m/uL Hgb 10.2 L (11.4-16.0) gm/dL Hct 33.4 L (34.0-46.0) % MCHC 30.5 L (31.0-37.0) g/dL RDW 17.7 H (11.5-15.5) % Chloride 110 H (98-107) mmol/L Carbon Dioxide 21 L (22-30) mmol/L BUN 5 L (7-17) mg/dL Glucose 128 H (74-99) mg/dL POC Glucose (mg/dL) 126 H (70-110) mg/dL 07/17/24 Range/Units 20:16 RBC (3.80-5.40) m/uL Hgb (11.4-16.0) gm/dL Hct (34.0-46.0) % MCHC (31.0-37.0) g/dL RDW (11.5-15.5) % Chloride (98-107) mmol/L Carbon Dioxide (22-30) mmol/L BUN (7-17) mg/dL Glucose (74-99) mg/dL POC Glucose (mg/dL) 148 H (70-110) mg/dL
[2024-07-18 06:43] LABS: Anisocytosis Slight; HCT 30.9 % (34.0-46.0); HGB 9.6 gm/dL (11.4-16.0); Hypochromasia Moderate; MCH 27.5 pg (25.0-35.0); MCHC 31.1 g/dL (31.0-37.0); MCV 88.6 fL (80.0-100.0); Mean Platelet Volume 8.4; RBC 3.49 m/uL (3.80-5.40); RDW 17.8 % (11.5-15.5); WBC 4.8 k/uL (3.8-10.6)
[2024-07-18 06:45] LABS: Platelet Count 100 k/uL (150-450)
[2024-07-18 06:52] LABS: African American GFR (CKD) >90 (>60 ml/min/1.73 sqM); Non-African American GFR(CKD) >90 (>60 ml/min/1.73 sqM)
[2024-07-18 06:57] LABS: Band Neutrophils % 1 %; Eosinophils # (M) 0.48 k/uL (0-0.7); Lymphocytes # (M) 2.02 k/uL (1.0-4.8); Monocytes # (M) 0.29 k/uL (0-1.0); Neutrophils % (M) 41 %; Nucleated Red Blood Cells 0 /100 WBC (0-0); Total Cells Counted 100
[2024-07-18 07:06] LABS: Glucose,Whole Blood 108 mg/dL (70-110)
[2024-07-18] MEDS ORDERED: HYDROmorphone 1 MG/ML 1 ML SYRINGE IVP PRN (08:13)
[2024-07-18] MEDS ORDERED: MAG HYDROX/AL HYDROX/SIMETH 30 ML CUP PO PRN (09:11)
--- NOTE | 2024-07-18 09:20 | P.PN ---
Subjective Progress Note Date: 07/17/24 Principal diagnosis: Reason for follow-up is abdominal wall abscess Patient is a 53-year-old female with recent multiple admission to hospital for colitis with intramural abscess requiring laparotomy with subsequent surgery for ileus requiring extensive lysis of adhesion and small bowel resection now presented to hospital with abdominal pain and vomiting has been diagnosed with abdominal wall abscess On today's evaluation that is 07/17/2024, Patient is afebrile this morning patient denies having any chest pain shortness of breath or cough, the patient is currently on room air, patient still complaining of upper abdominal pain no further vomiting. Patient white count is 5.7 creatinine 0.73 Objective - Vital Signs Vital signs: Vital Signs Temp 97.7 F 07/17/24 08:00 Pulse 80 07/17/24 11:04 Resp 16 07/17/24 10:03 BP 136/87 07/17/24 10:03 Pulse Ox 95 07/17/24 10:03 FiO2 Intake & Output 07/16/24 07/17/24 07/17/24 18:59 06:59 18:59 Intake Total 240 590 240 Balance 240 590 240 Intake: Oral 240 590 240 Other: Voiding Method Toilet Toilet # Voids 3 2 - Exam GENERAL DESCRIPTION: Middle-age female lying in bed in no distress RESPIRATORY SYSTEM: Unlabored breathing , decreased breath sounds at bases HEART: S1 S2 regular rate and rhythm , ABDOMEN: Soft , mild tenderness EXTREMITIES: No edema feet - Labs CBC & Chem 7: 07/18/24 06:00 07/18/24 06:00 Labs: Abnormal Lab Results - Last 24 Hours (Table) 07/16/24 07/16/24 07/17/24 Range/Units 17:25 20:07 09:51 RBC (3.80-5.40) m/uL Hgb (11.4-16.0) gm/dL Hct (34.0-46.0) % MCHC (31.0-37.0) g/dL RDW (11.5-15.5) % Chloride 110 H (98-107) mmol/L Carbon Dioxide 21 L (22-30) mmol/L BUN 5 L (7-17) mg/dL Glucose 128 H (74-99) mg/dL POC Glucose (mg/dL) 132 H 142 H (70-110) mg/dL 07/17/24 07/17/24 Range/Units 09:51 12:12 RBC 3.71 L (3.80-5.40) m/uL Hgb 10.2 L (11.4-16.0) gm/dL Hct 33.4 L (34.0-46.0) % MCHC 30.5 L (31.0-37.0) g/dL RDW 17.7 H (11.5-15.5) % Chloride (98-107) mmol/L Carbon Dioxide (22-30) mmol/L BUN (7-17) mg/dL Glucose (74-99) mg/dL POC Glucose (mg/dL) 126 H (70-110) mg/dL Assessment and Plan (1) Abdominal wall abscess Current Visit: Yes Status: Acute Code(s): L02.211 - CUTANEOUS ABSCESS OF ABDOMINAL WALL SNOMED Code(s): 29740678 (2) Postoperative abscess Current Visit: Yes Status: Acute Code(s): T81.49XA - INFECTION FOLLOWING A PROCEDURE, OTHER SURGICAL SITE, INIT SNOMED Code(s): 023930899 Plan: 1patient presented to hospital with abdominal pain and vomiting in this patient who did have abnormal CT suggestive of abdominal wall abscess however the patient not running any fever did not have an elevated white count question of seroma abscess not entirely excluded and will need to hold for resistant gram-positive as well as gram-negative pathogen. 2await IR drainage of this fluid collection which should be sent for culture both aerobic and anaerobic. 3patient will be continue with vancomycin and cefepime while waiting for the workup to be completed Dictation was produced using [employer] dictation software. please excuse any grammatical, word or spelling errors. Time with Patient: Less than 30
[2024-07-18] MEDS: DAPAGLIFLOZIN PROPANEDIOL 5 MG TABLET PO SCH (11:11)
[2024-07-18] MEDS: amLODIPine 10 MG TAB PO SCH (11:11)
[2024-07-18] MEDS: lisinopriL 10 MG TAB PO SCH (11:11)
[2024-07-18 12:01] VITALS: BP 147/97; RESP 16; TEMP 97
[2024-07-18 12:18] LABS: Glucose,Whole Blood 104 mg/dL (70-110)
--- NOTE | 2024-07-18 12:29 | P.PN ---
Subjective Progress Note Date: 07/18/24 CHIEF COMPLAINT: Abdominal pain HISTORY OF PRESENT ILLNESS: Patient remains afebrile. White count remains normal. Her pain is mostly in the upper abdomen. She reports a mild discomfort in the lower abdomen. She is asking about discharge and being discharged with pills for antibiotics. PHYSICAL EXAM: VITAL SIGNS: Reviewed. GENERAL: Well-developed in no acute distress. ABDOMEN: Soft. Nondistended. Midline incision enrike have been removed. Incision site clean dry and intact. The distal part of the incision no longer draining area is starting to scab over. Mild discomfort with palpation of the right upper quadrant. Minimal discomfort to the right of the distal incision. NEUROLOGIC: Alert and oriented. Cranial nerves II through XII grossly intact. ASSESSMENT: 1. Fluid collection on anterior abdominal wall likely a postoperative seroma PLAN: -No surgical intervention planned -Patient can be discharged from surgical standpoint -Prescription for Bactrim for 7 days recommended Physician Alterations Expert note has been reviewed by physician. Signing provider agrees with the documented findings, assessment, and plan of care. Objective - Vital Signs Vital signs: Vital Signs Temp 97 F L 07/18/24 11:52 Pulse 75 07/18/24 11:52 Resp 16 07/18/24 11:52 BP 147/97 07/18/24 11:52 Pulse Ox 95 07/18/24 11:52 FiO2 Intake & Output 07/17/24 07/18/24 07/18/24 18:59 06:59 18:59 Intake Total 2340 Balance 2340 Weight 90.718 kg Intake: Oral 2340 Other: Voiding Method Toilet Toilet Toilet # Voids 6 2 # Bowel Movements 1 - Labs CBC & Chem 7: 07/18/24 06:00 07/18/24 06:00 Labs: Abnormal Lab Results - Last 24 Hours (Table) 07/17/24 07/18/24 Range/Units 20:16 06:00 RBC 3.49 L (3.80-5.40) m/uL Hgb 9.6 L (11.4-16.0) gm/dL Hct 30.9 L (34.0-46.0) % RDW 17.8 H (11.5-15.5) % Plt Count 100 L D (150-450) k/uL POC Glucose (mg/dL) 148 H (70-110) mg/dL
[2024-07-18 12:52] VITALS: PULSE 80
[2024-07-18] MEDS: HYDROmorphone 2 MG/ML 1 ML SYRINGE IVP PRN (13:42)
--- NOTE | 2024-07-18 17:45 | P.PN ---
Subjective Progress Note Date: 07/18/24 Principal diagnosis: Reason for follow-up is abdominal wall abscess Patient is a 53-year-old female with recent multiple admission to hospital for colitis with intramural abscess requiring laparotomy with subsequent surgery for ileus requiring extensive lysis of adhesion and small bowel resection now presented to hospital with abdominal pain and vomiting has been diagnosed with abdominal wall abscess On today's evaluation that is 07/18/2024,the patient denies any fever or any chills, patient is breathing comfortably on room air, the patient denies chest pain shortness of breath and no significant cough, patient abdominal pain has decreased intensity no further nausea no vomiting feeling better. Patient white count is 4.8 creatinine 0.70 Objective - Vital Signs Vital signs: Vital Signs Temp 97 F L 07/18/24 11:52 Pulse 80 07/18/24 12:52 Resp 16 07/18/24 11:52 BP 147/97 07/18/24 11:52 Pulse Ox 95 07/18/24 11:52 FiO2 Intake & Output 07/17/24 07/18/24 07/18/24 18:59 06:59 18:59 Intake Total 2340 Balance 2340 Weight 90.718 kg Intake: Oral 2340 Other: Voiding Method Toilet Toilet Toilet # Voids 6 2 # Bowel Movements 1 - Exam GENERAL DESCRIPTION: Middle-age female lying in bed in no distress RESPIRATORY SYSTEM: Unlabored breathing , decreased breath sounds at bases HEART: S1 S2 regular rate and rhythm , ABDOMEN: Soft , mild tenderness EXTREMITIES: No edema feet - Labs CBC & Chem 7: 07/18/24 06:00 07/18/24 06:00 Labs: Abnormal Lab Results - Last 24 Hours (Table) 07/17/24 07/18/24 Range/Units 20:16 06:00 RBC 3.49 L (3.80-5.40) m/uL Hgb 9.6 L (11.4-16.0) gm/dL Hct 30.9 L (34.0-46.0) % RDW 17.8 H (11.5-15.5) % Plt Count 100 L D (150-450) k/uL POC Glucose (mg/dL) 148 H (70-110) mg/dL Assessment and Plan (1) Abdominal wall abscess Status: Acute Code(s): L02.211 - CUTANEOUS ABSCESS OF ABDOMINAL WALL SNOMED Code(s): 86867908 (2) Postoperative abscess Status: Acute Code(s): T81.49XA - INFECTION FOLLOWING A PROCEDURE, OTHER SURGICAL SITE, INIT SNOMED Code(s): 570756497 Plan: 1patient presented to hospital with abdominal pain and vomiting in this patient who did have abnormal CT suggestive of abdominal wall abscess however the patient not running any fever did not have an elevated white count question of seroma abscess not entirely excluded and will need to hold for resistant gram- positive as well as gram-negative pathogen. 2apparently IR has refused to drain this fluid collection at least sample shoul d be obtained to see if it is mostly bloody or purulent and for culture this has been explained to the TRANSFORMER BUILDER for admitting as well as the nursing staff and for now we will continue with the vancomycin and cefepime Dictation was produced using [employer] dictation software. please excuse any grammatical, word or spelling errors. Time with Patient: Less than 30
[2024-07-19] MEDS ORDERED: MIST INHALATION SCH (08:00)
[2024-07-19] MEDS ORDERED: SPIRIVA RESPIMAT INHALATION SCH (08:00)
--- NOTE | 2024-07-24 12:17 | P.DS ---
Providers Date of admission: 07/15/24 11:45 Expected date of discharge: 07/18/24 Attending physician: Hiro Velez Consults: 07/15/24 11:52 Consult Physician Routine Consulting Provider: Marga Samuel Consult Reason/Comments: post op abscess Do you want consulting provider notified?: Already Contacted 07/16/24 10:23 Consult Physician Routine Consulting Provider: Lupillo Meier Consult Reason/Comments: Surgical wound infection/abscess Do you want consulting provider notified?: Yes Primary care physician: Kemar Jin MD Hospital Course: Final diagnosis Abdominal pain with CT finding of organized fluid collection likely abscess at the surgical incision site. No plans for surgical drainage per surgery Recent admission with intractable mural wall abscess status post open ileectomy with drain placement. Patient was discharged on 07/04/2024 Mild transaminitis Diabetes type 2 [id number] Coronary artery disease history of CABG and multiple stent placement Hypertension Hyperlipidemia COPD GERD History of DE DJD, scoliosis Anxiety and bipolar disorder Currently everyday smoker and history of marijuana use DVT prophylaxis with heparin subcu GI prophylaxis Full code Discharge disposition Patient is being discharged in a stable condition with guarded prognosis to home. Patient will follow-up with Dr. Jin in the outpatient setting upon discharge. Patient is to continue with oral antibiotics per surgery and outpatient follow-up with general surgery Dr. Dubois as scheduled. Total time taken is greater than 35 minutes. Hospital course This is a 61-year-old male who was recently admitted with abdominal pain and imaging noted to have concerns of fluid collection at the surgical site with recent intra abdominal wall abscess after having ileectomy and drainage placement. Patient was recently discharged and rehospitalized regarding continued abdominal pain. Patient returns with increased abdominal pain and initially general surgery discussing possible drainage of this fluid collection although feels it is improving and no need for drainage at this time recommending antibiotics. Infectious disease was following maintained on IV antibiotics although strongly recommending drainage to evaluate for the appropriate discharge antibiotic recommendations. General surgery will be sending the patient home on Bactrim and will follow-up with the patient in 1 week. Patient has been cleared by general surgery and instructed to follow-up as scheduled. Please refer to other consultation notes for further HPI. Currently no reports of chest pain, shortness of breath, or palpitations. Patient is afebrile. No reports of nausea or vomiting and patient is tolerating diet. Patient will be discharged home today. Patient is extremely adamant about wanting to go home and prefers oral antibiotics. Extremely high risk for readmissions given significant abdominal issues and comorbidities. Patient has had multiple hospitalizations and is high risk for readmission. Physical exam: Gen: This is a 53-year-old female who is awake, alert and oriented x 3, well- developed, appears older than stated age, ill-appearing HEENT: Head is atraumatic, normocephalic. Pupils equal, round. Sclerae is anicteric. NECK: Supple. No JVD. No lymphadenopathy. No thyromegaly. LUNGS: Clear to auscultation. No wheezes or rhonchi. No intercostal ret ractions. HEART: Regular rate and rhythm. No murmur. ABDOMEN: Soft. Mildly tender. Surgical site is dry and intact with dressing. Bowel sounds are present. No masses. No tenderness. EXTREMITIES: No pedal edema. No calf tenderness. NEUROLOGICAL: Patient is awake, alert and oriented x3. Cranial nerves 2 through 12 are grossly intact. Please refer to medication reconciliation sheet for a list of medications. The impression and plan of care has been dictated by Lesia Rivera, Nurse Practitioner as directed. Dr. Lito MD I have performed a history and examination and MDM of this patient, discussed the same with the dictator, and agree with the dictator's assessment and plan as written ,documented as a scribe. Based on total visit time, I have performed more than 50% of the visit. Patient Condition at Discharge: Fair Plan - Discharge Summary Discharge Rx Participant: No New Discharge Prescriptions: New Sulfamethox-Tmp 800-160Mg [Bactrim DS 800-160 mg] 1 tab PO Q12HR 7 Days #14 tab Continue Atorvastatin [Lipitor] 80 mg PO DAILY Ranolazine [Ranexa] 1,000 mg PO BID metFORMIN HCL 1,000 mg PO BID Nitroglycerin Sl Tabs [Nitrostat] 0.4 mg SL Q5M PRN PRN Reason: Chest Pain Aspirin EC [Ecotrin Low Dose] 81 mg PO DAILY Albuterol Inhaler [Ventolin Hfa Inhaler] 2 puff INHALATION RT-QID PRN PRN Reason: Shortness Of Breath Isosorbide Mononitrate ER [Imdur] 30 mg PO DAILY Insulin Lispro [humaLOG Kwikpen] See Protocol SQ AC-TID Dapagliflozin Propanediol [Farxiga] 5 mg PO DAILY Dulaglutide [Trulicity] 3 mg SQ WE Ipratropium-Albuterol Nebulize [Duoneb 0.5 mg-3 mg/3 ml Soln] 3 ml INHALATION RT-TID Spiriva Respimat 1.25mcg/Actuation Mist 2 puff INHALATION RT-DAILY Ondansetron Odt [Zofran ODT] 4 mg PO Q8HR PRN PRN Reason: Nausea lisinopriL [Zestril] 10 mg PO DAILY Cholestyramine (with Sugar) [Questran Packet] 4 gm PO BID #60 packet Metoprolol Tartrate [Lopressor] 12.5 mg PO BID #60 tab rOPINIRole HCL [Requip] 1 mg PO HS amLODIPine [Norvasc] 10 mg PO DAILY Omeprazole 40 mg PO BID Budesonide/Formoterol Fumarate [Symbicort 160-4.5 Mcg Inhaler] 2 puff INHALATION RT-BID Pregabalin [Lyrica] 150 mg PO TID Clopidogrel [Plavix] 75 mg PO DAILY ALPRAZolam [Xanax] 0.5 mg PO BID PRN PRN Reason: Anxiety Mag Hydrox/Al Hydrox/Simeth [Maalox] 30 ml PO QID PRN 2 Days #180 ml PRN Reason: Heartburn Albuterol Nebulized [Ventolin Nebulized] 2.5 mg INHALATION RT-Q6H PRN PRN Reason: Shortness Of Breath No Action HYDROcodone/APAP 5-325MG [[place] 5-325] 1 tab PO Q6HR PRN PRN Reason: Pain Discharge Medication List Atorvastatin [Lipitor] 80 mg PO DAILY 07/08/20 [History] Ranolazine [Ranexa] 1,000 mg PO BID 11/13/21 [History] Albuterol Inhaler [Ventolin Hfa Inhaler] 2 puff INHALATION RT-QID PRN 03/27/23 [History] Aspirin EC [Ecotrin Low Dose] 81 mg PO DAILY 03/27/23 [History] Budesonide/Formoterol Fumarate [Symbicort 160-4.5 Mcg Inhaler] 2 puff INHALATION RT-BID 03/27/23 [History] Clopidogrel [Plavix] 75 mg PO DAILY 03/27/23 [History] Nitroglycerin Sl Tabs [Nitrostat] 0.4 mg SL Q5M PRN 03/27/23 [History] Omeprazole 40 mg PO BID 03/27/23 [History] Pregabalin [Lyrica] 150 mg PO TID 03/27/23 [History] amLODIPine [Norvasc] 10 mg PO DAILY 03/27/23 [History] metFORMIN HCL 1,000 mg PO BID 03/27/23 [History] rOPINIRole HCL [Requip] 1 mg PO HS 03/27/23 [History] ALPRAZolam [Xanax] 0.5 mg PO BID PRN 06/22/23 [History] Dapagliflozin Propanediol [Farxiga] 5 mg PO DAILY 03/16/24 [History] Dulaglutide [Trulicity] 3 mg SQ WE 03/16/24 [History] Insulin Lispro [humaLOG Kwikpen] See Protocol SQ AC-TID 03/16/24 [History] Ipratropium-Albuterol Nebulize [Duoneb 0.5 mg-3 mg/3 ml Soln] 3 ml INHALATION RT-TID 03/16/24 [History] Isosorbide Mononitrate ER [Imdur] 30 mg PO DAILY 03/16/24 [History] Mag Hydrox/Al Hydrox/Simeth [Maalox] 30 ml PO QID PRN 2 Days #180 ml 05/22/24 [Rx] Spiriva Respimat 1.25mcg/Actuation Mist 2 puff INHALATION RT-DAILY 05/24/24 [History] Albuterol Nebulized [Ventolin Nebulized] 2.5 mg INHALATION RT-Q6H PRN 05/31/24 [History] Ondansetron Odt [Zofran ODT] 4 mg PO Q8HR PRN 05/31/24 [History] lisinopriL [Zestril] 10 mg PO DAILY 05/31/24 [History] Cholestyramine (with Sugar) [Questran Packet] 4 gm PO BID #60 packet 06/03/24 [Rx] Metoprolol Tartrate [Lopressor] 12.5 mg PO BID #60 tab 07/02/24 [Rx] Sulfamethox-Tmp 800-160Mg [Bactrim DS 800-160 mg] 1 tab PO Q12HR 7 Days #14 tab 07/18/24 [Rx] HYDROcodone/APAP 5-325MG [[place] 5-325] 1 tab PO Q6HR PRN 07/24/24 [History] Follow up Appointment(s)/Referral(s): Adrian Dubois DO [Doctor of Osteopathic Medicine] - 07/30/24 9:30 am (follow-up made with Dr. Portillo [address] [place] [address]) Kemar Jin MD [Primary Care Provider] - 07/24/24 10:00 am ([place] [phone] ) Patient Instructions/Handouts: Sulfamethoxazole/Trimethoprim (By mouth), Abscess (GEN) Activity/Diet/Wound Care/Special Instructions: Activity limited until follow-up Follow-up with primary care provider this week Follow-up with general surgery in 1 week Continue with antibiotics until finished Discharge Disposition: HOME SELF-CARE
== END 2024-07-18 16:51 | disposition home or self-care (01) | DRG 721 ==
LOC: EC 09:03 → 1SOBS 11:45 → 5NMEDONC 07-16 05:49
PROVIDERS: ADMIT Hospitalist; ATTEND Hospitalist
PROC: 05HC33Z Insertion of Infusion Device into Left Basilic Vein, Percutaneous Approach (ICD-10-PCS; principal; 2024-07-17 16:25)
DX: T81.41XA Infection following a procedure, superficial incisional surgical site, initial encounter (principal); L02.211 Cutaneous abscess of abdominal wall; F31.9 Bipolar disorder, unspecified; E11.9 Type 2 diabetes mellitus without complications; I10 Essential (primary) hypertension; J44.89 Other specified chronic obstructive pulmonary disease; I25.10 Atherosclerotic heart disease of native coronary artery without angina pectoris; E78.5 Hyperlipidemia, unspecified; K21.9 Gastro-esophageal reflux disease without esophagitis; M19.90 Unspecified osteoarthritis, unspecified site; M41.9 Scoliosis, unspecified; F41.9 Anxiety disorder, unspecified; R74.01 Elevation of levels of liver transaminase levels; F17.210 Nicotine dependence, cigarettes, uncomplicated; Z95.1 Presence of aortocoronary bypass graft; Z95.5 Presence of coronary angioplasty implant and graft; I25.2 Old myocardial infarction; Z79.51 Long term (current) use of inhaled steroids; Z79.82 Long term (current) use of aspirin; Z79.02 Long term (current) use of antithrombotics/antiplatelets; Z79.84 Long term (current) use of oral hypoglycemic drugs; Z79.899 Other long term (current) drug therapy; Z90.49 Acquired absence of other specified parts of digestive tract
CPT/HCPCS: 36410; 36415; 74177; 76937; 80048; 80053; 80202; 82565; 83036; 83605; 83690; 85025; 85027; 93005; 94640; 96361; 96374; 96375; 96376; 99285

== ENCOUNTER 2024-07-24 07:59 | Observation (INO) | payer OTHER ==
--- NOTE | 2024-07-24 08:32 | ED ---
General Adult HPI - General Chief complaint: Abdominal Pain Stated complaint: abd pain Time Seen by Provider: 07/24/24 08:05 Source: patient, RN notes reviewed, old records reviewed Mode of arrival: EMS Limitations: no limitations - History of Present Illness Initial comments: 53-year-old female presenting with abdominal pain, nausea vomiting. Patient is approximately 1 month status post laparotomy with bowel resection. Patient reports that she was seen at outside emergency department yesterday with was diagnosed with an ileus. She states that her symptoms continue to worsen including upper abdominal pain and nausea vomiting. She states she did have a bowel movement at 5 AM this morning. Denies fever. - Related Data Home Medications Medication Instructions Recorded Confirmed Atorvastatin [Lipitor] 80 mg PO DAILY 07/08/20 07/15/24 Ranolazine [Ranexa] 1,000 mg PO BID 11/13/21 07/15/24 Albuterol Inhaler [Ventolin Hfa 2 puff INHALATION RT-QID PRN 03/27/23 07/15/24 Inhaler] Aspirin EC [Ecotrin Low Dose] 81 mg PO DAILY 03/27/23 07/15/24 Budesonide/Formoterol Fumarate 2 puff INHALATION RT-BID 03/27/23 07/15/24 [Symbicort 160-4.5 Mcg Inhaler] Clopidogrel [Plavix] 75 mg PO DAILY 03/27/23 07/15/24 Nitroglycerin Sl Tabs [Nitrostat] 0.4 mg SL Q5M PRN 03/27/23 07/15/24 Omeprazole 40 mg PO BID 03/27/23 07/15/24 Pregabalin [Lyrica] 150 mg PO TID 03/27/23 07/15/24 amLODIPine [Norvasc] 10 mg PO DAILY 03/27/23 07/15/24 metFORMIN HCL 1,000 mg PO BID 03/27/23 07/15/24 rOPINIRole HCL [Requip] 1 mg PO HS 03/27/23 07/15/24 ALPRAZolam [Xanax] 0.5 mg PO BID PRN 06/22/23 07/15/24 Dapagliflozin Propanediol [Farxiga] 5 mg PO DAILY 03/16/24 07/15/24 Dulaglutide [Trulicity] 3 mg SQ WE 03/16/24 07/15/24 Insulin Lispro [humaLOG Kwikpen] See Protocol SQ AC-TID 03/16/24 07/15/24 Ipratropium-Albuterol Nebulize 3 ml INHALATION RT-TID 03/16/24 07/15/24 [Duoneb 0.5 mg-3 mg/3 ml Soln] Isosorbide Mononitrate ER [Imdur] 30 mg PO DAILY 03/16/24 07/15/24 Spiriva Respimat 1.25mcg/Actuation 2 puff INHALATION RT-DAILY 05/24/24 07/15/24 Mist Albuterol Nebulized [Ventolin 2.5 mg INHALATION RT-Q6H PRN 05/31/24 07/15/24 Nebulized] Ondansetron Odt [Zofran ODT] 4 mg PO Q8HR PRN 05/31/24 07/15/24 lisinopriL [Zestril] 10 mg PO DAILY 05/31/24 07/15/24 Previous Rx's Medication Instructions Recorded Mag Hydrox/Al Hydrox/Simeth 30 ml PO QID PRN 2 Days #180 ml 05/22/24 [Maalox] Cholestyramine (with Sugar) 4 gm PO BID #60 packet 06/03/24 [Questran Packet] Metoprolol Tartrate [Lopressor] 12.5 mg PO BID #60 tab 07/02/24 HYDROcodone/APAP 10-325MG [[place] 1 tab PO Q8H PRN #9 tab 07/10/24 10-325] Sulfamethox-Tmp 800-160Mg [Bactrim 1 tab PO Q12HR 7 Days #14 tab 07/18/24 DS 800-160 mg] Allergies Allergy/AdvReac Type Severity Reaction Status Date / Time No Known Allergies Allergy Verified 07/15/24 10:44 Review of Systems ROS Statement: Those systems with pertinent positive or pertinent negative responses have been documented in the HPI. ROS Other: All systems not noted in ROS Statement are negative. Past Medical History Past Medical History: Asthma, Coronary Artery Disease (CAD), COPD, Diabetes Mellitus, GERD/Reflux, Hypertension, Myocardial Infarction (UT), Osteoarthritis (OA) Additional Past Medical History / Comment(s): DDD, scoliosis, [place] x4 Last Myocardial Infarction Date:: 2011 History of Any Multi-Drug Resistant Organisms: None Reported Past Surgical History: Bowel Resection, Coronary Bypass/CABG, Heart Catheterization With Stent Additional Past Surgical History / Comment(s): seven stents, here for gastroenteritis with abcess (removal 06/21/24), per pt 2 ABD procedures at the same area. Past Anesthesia/Blood Transfusion Reactions: No Reported Reaction Date of Last Stent Placement:: 11/2018 Past Psychological History: Anxiety, Bipolar Smoking Status: Current every day smoker Past Alcohol Use History: None Reported Past Drug Use History: Marijuana - Past Family History Mother Family Medical History: Cancer Additional Family Medical History / Comment(s): Ovarian cancer Father Family Medical History: Congestive Heart Failure (CHF) Fmily Family Medical History: No Reported History General Exam Limitations: no limitations General appearance: alert, in no apparent distress Head exam: Present: atraumatic, normocephalic Eye exam: Present: normal appearance, PERRL ENT exam: Present: normal exam Neck exam: Present: normal inspection. Absent: tenderness, meningismus Respiratory exam: Present: normal lung sounds bilaterally. Absent: respiratory distress, wheezes Cardiovascular Exam: Present: regular rate, normal rhythm GI/Abdominal exam: Present: soft, distended, tenderness, other (Incision is well-healed without signs of infection) Neurological exam: Present: alert, oriented X3 Psychiatric exam: Present: anxious Skin exam: Present: warm, dry Course Vital Signs 07/24/24 07/24/24 07/24/24 08:04 08:51 09:31 Temperature 99.1 F Pulse Rate 89 89 95 Respiratory 36 H 20 16 Rate Blood Pressure 196/105 149/87 154/92 O2 Sat by Pulse 97 98 98 Oximetry - Reevaluation(s) Reevaluation #1: 07/24/24 09:41 Records are requested from [facility]. Medical Decision Making - Medical Decision Making Was pt. sent in by a medical professional or institution (, PA, BUSINESS ADVISOR, urgent care, hospital, or fpc...) When possible be specific @ -No Did you speak to anyone other than the patient for history (EMS, parent, family, police, friend...)? What history was obtained from this source @ -No Did you review nursing and triage notes (agree or disagree)? Why? @ -I reviewed and agree with nursing and triage notes Were old charts reviewed (outside hosp., previous admission, EMS record, old EKG, old radiological studies, urgent care reports/EKG's, fpc records)? Report findings @ -No old charts were reviewed Differential Abdominal Pain Women: Appendicitis, Cholecystitis, diverticulosis, ischemic bowel, pancreatitis, hepatitis, UTI, gastroenteritis, AAA, incarcerated hernia, bowel obstruction, constipation, inflammatory bowel, hepatitis, peptic ulcer disease, splenic infarction, perforated viscus, vulvitis, ovarian torsion, PID, kidney stone, placenta abruption, this is not meant to be an all-inclusive list EKG interpreted by me (3pts min.). @ -As above X-rays interpreted by me (1pt min.). @ -None done CT interpreted by me (1pt min.). @ -None done U/S interpreted by me (1pt. min.). @ -None done What testing was considered but not performed or refused? (CT, X-rays, U/S, labs)? Why? @ -None What meds were considered but not given or refused? Why? @ -None Did you discuss the management of the patient with other professionals (professionals i.e. , PA, BUSINESS ADVISOR, lab, RT, psych nurse, perinatal social worker, safety deposit boxes custodian, teacher, quality officer, piano case and bench assembler)? Give summary @ -Dr. Morse Was smoking cessation discussed for >3mins.? @ -No Was critical care preformed (if so, how long)? @ -No Were there social determinants of health that impacted care today? How? (Homelessness, low income, unemployed, alcoholism, drug addiction, transportation, low edu. Level, literacy, decrease access to med. care, correction, rehab)? @ -No Was there de-escalation of care discussed even if they declined (Discuss DNR or withdrawal of care, Hospice)? DNR status @ -No What co-morbidities impacted this encounter? (DM, HTN, Smoking, COPD, CAD, Cancer, CVA, ARF, Chemo, Hep., AIDS, mental health diagnosis, sleep apnea, morbid obesity)? @ -None Was patient admitted / discharged? Hospital course, mention meds given and route , prescriptions, significant lab abnormalities, going to OR and other pertinent info. @ 53-year-old female 1 month status post laparotomy with bowel resection presenting with abdominal pain nausea vomiting. Patient was seen at outside emergency department yesterday, records are requested including CT imaging this is pending. Patient has normal white blood cell count, stable hemoglobin, normal lactic acid. She does require multiple doses of pain medication in the emergency department. She reported that outside CAT scan showed ileus. Patient will be observed overnight with general surgery on consult. Symptomatic treatment, IV fluids will be administered. Patient will be kept NPO. Undiagnosed new problem with uncertain prognosis? @ -No Drug Therapy requiring intensive monitoring for toxicity (Heparin, Nitro, Insulin, Cardizem)? @ -No Were any procedures done? @ -No Diagnosis/symptom? @ -[Ileus, abdominal pain Acute, or Chronic, or Acute on Chronic? @ -Acute Uncomplicated (without systemic symptoms) or Complicated (systemic symptoms)? @ -Default Side effects of treatment? @ -No Exacerbation, Progression, or Severe Exacerbation? @ -No Poses a threat to life or bodily function? How? (Chest pain, [place], [place], pneumonia, PE, COPD, DKA, ARF, appy, cholecystitis, CVA, Diverticulitis, Homicidal, Suicidal, threat to staff... and all critical care pts) @Moderate risk, small bowel obstruction - Lab Data Result diagrams: 07/24/24 08:10 07/24/24 08:10 Lab Results 07/24/24 07/24/24 07/24/24 Range/Units 08:10 08:10 08:10 WBC 7.4 (3.8-10.6) k/uL RBC 4.59 (3.80-5.40) m/uL Hgb 12.2 (11.4-16.0) gm/dL Hct 39.8 (34.0-46.0) % MCV 86.8 (80.0-100.0) fL MCH 26.7 (25.0-35.0) pg MCHC 30.7 L (31.0-37.0) g/dL RDW 17.4 H (11.5-15.5) % Plt Count 389 D (150-450) k/uL MPV 7.5 Neutrophils % 53 % Lymphocytes % 34 % Monocytes % 5 % Eosinophils % 6 % Basophils % 1 % Neutrophils # 3.9 (1.3-7.7) k/uL Lymphocytes # 2.5 (1.0-4.8) k/uL Monocytes # 0.4 (0-1.0) k/uL Eosinophils # 0.4 (0-0.7) k/uL Basophils # 0.1 (0-0.2) k/uL Hypochromasia Marked Anisocytosis Slight Sodium 140 (137-145) mmol/L Potassium 3.9 (3.5-5.1) mmol/L Chloride 110 H (98-107) mmol/L Carbon Dioxide 20 L (22-30) mmol/L Anion Gap 10 mmol/L BUN 10 (7-17) mg/dL Creatinine 0.76 (0.52-1.04) mg/dL Est GFR (CKD-EPI)AfAm >90 (>60 ml/min/1.73 sqM) Est GFR (CKD-EPI)NonAf 89 (>60 ml/min/1.73 sqM) Glucose 109 H (74-99) mg/dL Plasma Lactic Acid Sarthak 1.5 (0.7-2.0) mmol/L Calcium 10.0 (8.4-10.2) mg/dL Total Bilirubin 0.3 (0.2-1.3) mg/dL AST 41 H (14-36) U/L ALT 32 (4-34) U/L Alkaline Phosphatase 167 H (38-126) U/L Total Protein 6.7 (6.3-8.2) g/dL Albumin 4.1 (3.5-5.0) g/dL Lipase 88 (23-300) U/L Disposition Clinical Impression: Abdominal pain, Nausea & vomiting, Ileus, postoperative Disposition: ADMITTED IP TO THIS [facility] Condition: Stable Is patient prescribed a controlled substance at d/c from ED?: No Referrals: Kemar Jin MD [Primary Care Provider] - 1-2 days Time of Disposition: 09:44
[2024-07-24] MEDS: HYDROmorphone 1 MG/ML 1 ML SYRINGE IVP STA (08:48)
[2024-07-24] MEDS: ONDANSETRON 4 MG/2 ML VIAL IVP STA (08:48)
[2024-07-24 08:49] LABS: Anisocytosis Slight; Basophils # (A) 0.1 k/uL (0-0.2); Basophils % (A) 1 %; Eosinophils # (A) 0.4 k/uL (0-0.7); Eosinophils % (A) 6 %; HCT 39.8 % (34.0-46.0); HGB 12.2 gm/dL (11.4-16.0); Hypochromasia Marked; Lymphocytes # (A) 2.5 k/uL (1.0-4.8); Lymphocytes % (A) 34 %; MCH 26.7 pg (25.0-35.0); MCHC 30.7 g/dL (31.0-37.0); MCV 86.8 fL (80.0-100.0); Mean Platelet Volume 7.5; Monocytes # (A) 0.4 k/uL (0-1.0); Monocytes % (A) 5 %; Neutrophils # (A) 3.9 k/uL (1.3-7.7); Neutrophils % (A) 53 %; RBC 4.59 m/uL (3.80-5.40); RDW 17.4 % (11.5-15.5); WBC 7.4 k/uL (3.8-10.6)
[2024-07-24] MEDS: SODIUM CHLORIDE 0.9% 500 ML 500 ML IV STA (08:49)
[2024-07-24 09:02] LABS: Platelet Count 389 k/uL (150-450)
[2024-07-24 09:04] LABS: ALT 32 U/L (4-34); AST 41 U/L (14-36); African American GFR (CKD) >90 (>60 ml/min/1.73 sqM); Albumin 4.1 g/dL (3.5-5.0); Alkaline Phosphatase 167 U/L (38-126); Anion Gap 10 mmol/L; Blood Urea Nitrogen 10 mg/dL (7-17); Carbon Dioxide 20 mmol/L (22-30); Chloride 110 mmol/L (98-107); Glucose 109 mg/dL (74-99); Lipase 88 U/L (23-300); Non-African American GFR(CKD) 89 (>60 ml/min/1.73 sqM); Potassium 3.9 mmol/L (3.5-5.1); Sodium 140 mmol/L (137-145); Total Bilirubin 0.3 mg/dL (0.2-1.3); Total Protein 6.7 g/dL (6.3-8.2)
[2024-07-24] MEDS: HYDROmorphone 0.5 MG/0.5 ML SYRINGE IVP STA (09:37)
[2024-07-24] MEDS: SODIUM CHLORIDE 0.9% 1,000 ML IV SCH (09:37)
[2024-07-24] MEDS ORDERED: NALOXONE 0.4 MG/ML 1 ML VIAL IV PRN (09:39)
[2024-07-24] MEDS ORDERED: ACETAMINOPHEN TAB 325 MG TAB PO PRN (09:39)
--- NOTE | 2024-07-24 09:51 | P.HPIM ---
History of Present Illness Patient is a 53-year-old female came in with epigastric burning sensation nausea vomiting has been going on since today morning. Patient had extensive history and the patient has hospitalization for prolonged period of time for more than a month for diverticulitis subsequently underwent colectomy and end-to-end anastomosis. Patient was taken to warmer multiple times in the past. Patient had a CT of the abdomen done at outside facility which showed ileus. Patient did move her bowels today and patient does have bowel sounds on exam. REVIEW OF SYSTEMS: All other systems are negative except those mentioned in the HPI PHYSICAL EXAMINATION: GENERAL: The patient is alert and oriented x3, not in any acute distress. Well d eveloped, well nourished. HEENT: Pupils are round and equally reacting to light. EOMI. No scleral icterus. No conjunctival pallor. Normocephalic, atraumatic. No pharyngeal erythema. No thyromegaly. CARDIOVASCULAR: S1 and S2 present. No murmurs, rubs, or gallops. PULMONARY: Chest is clear to auscultation, no wheezing or crackles. ABDOMEN: Soft, nontender, nondistended, normoactive bowel sounds. No palpable organomegaly. MUSCULOSKELETAL: No joint swelling or deformity. EXTREMITIES: No cyanosis, clubbing, or pedal edema. NEUROLOGICAL: Gross neurological examination did not reveal any focal deficits. SKIN: No rashes. Assessment and plan -Epigastric burning sensation probably peptic ulcer disease or gastritis patient was started on Protonix twice a day. -Possible ileus on as per the CAT scan although patient clinically has bowel sounds and did move her bowels today morning. General surgery was consulted from ER. Patient is presently on Dilaudid I am not starting her on any nonste roidal anti-inflammatories because of her epigastric burning sensation and possibility of peptic ulcer disease -Coronary artery disease with previous stents in the past -COPD -Type 2 diabetes mellitus -Gastroesophageal reflux disease -Hypertension -Nicotine use: Counseling was provided -Bipolar disorder and anxiety disorder -Problem mentioned chronic medical problems patient resumed appropriate home medications once verified. - DVT prophylaxis: Previous surgical scars which are clean Past Medical History Past Medical History: Asthma, Coronary Artery Disease (CAD), COPD, Diabetes Mellitus, GERD/Reflux, Hypertension, Myocardial Infarction ([place]), Osteoarthritis (OA) Additional Past Medical History / Comment(s): DDD, scoliosis, [place] x4 Last Myocardial Infarction Date:: 2011 History of Any Multi-Drug Resistant Organisms: None Reported Past Surgical History: Bowel Resection, Coronary Bypass/CABG, Heart Catheterization With Stent Additional Past Surgical History / Comment(s): seven stents, here for gastroenteritis with abcess (removal 06/21/24), per pt 2 ABD procedures at the same area. Past Anesthesia/Blood Transfusion Reactions: No Reported Reaction Date of Last Stent Placement:: 11/2018 Past Psychological History: Anxiety, Bipolar Smoking Status: Current every day smoker Past Alcohol Use History: None Reported Past Drug Use History: Marijuana - Past Family History Mother Family Medical History: Cancer Additional Family Medical History / Comment(s): Ovarian cancer Father Family Medical History: Congestive Heart Failure (CHF) Fmily Family Medical History: No Reported History Medications and Allergies Home Medications Medication Instructions Recorded Confirmed Type Atorvastatin [Lipitor] 80 mg PO DAILY 07/08/20 07/24/24 History Ranolazine [Ranexa] 1,000 mg PO BID 11/13/21 07/24/24 History Albuterol Inhaler [Ventolin Hfa 2 puff INHALATION RT-QID PRN 03/27/23 07/24/24 History Inhaler] Aspirin EC [Ecotrin Low Dose] 81 mg PO DAILY 03/27/23 07/24/24 History Budesonide/Formoterol Fumarate 2 puff INHALATION RT-BID 03/27/23 07/24/24 History [Symbicort 160-4.5 Mcg Inhaler] Clopidogrel [Plavix] 75 mg PO DAILY 03/27/23 07/24/24 History Nitroglycerin Sl Tabs [Nitrostat] 0.4 mg SL Q5M PRN 03/27/23 07/24/24 History Omeprazole 40 mg PO BID 03/27/23 07/24/24 History Pregabalin [Lyrica] 150 mg PO TID 03/27/23 07/24/24 History amLODIPine [Norvasc] 10 mg PO DAILY 03/27/23 07/24/24 History metFORMIN HCL 1,000 mg PO BID 03/27/23 07/24/24 History rOPINIRole HCL [Requip] 1 mg PO HS 03/27/23 07/24/24 History ALPRAZolam [Xanax] 0.5 mg PO BID PRN 06/22/23 07/24/24 History Dapagliflozin Propanediol [Farxiga] 5 mg PO DAILY 03/16/24 07/24/24 History Dulaglutide [Trulicity] 3 mg SQ WE 03/16/24 07/24/24 History Insulin Lispro [humaLOG Kwikpen] See Protocol SQ AC-TID 03/16/24 07/24/24 History Ipratropium-Albuterol Nebulize 3 ml INHALATION RT-TID 03/16/24 07/24/24 History [Duoneb 0.5 mg-3 mg/3 ml Soln] Isosorbide Mononitrate ER [Imdur] 30 mg PO DAILY 03/16/24 07/24/24 History Mag Hydrox/Al Hydrox/Simeth 30 ml PO QID PRN 2 Days #180 ml 05/22/24 07/24/24 Rx [Maalox] Spiriva Respimat 1.25mcg/Actuation 2 puff INHALATION RT-DAILY 05/24/24 07/24/24 History Mist Albuterol Nebulized [Ventolin 2.5 mg INHALATION RT-Q6H PRN 05/31/24 07/24/24 History Nebulized] Ondansetron Odt [Zofran ODT] 4 mg PO Q8HR PRN 05/31/24 07/24/24 History lisinopriL [Zestril] 10 mg PO DAILY 05/31/24 07/24/24 History Cholestyramine (with Sugar) 4 gm PO BID #60 packet 06/03/24 07/24/24 Rx [Questran Packet] Metoprolol Tartrate [Lopressor] 12.5 mg PO BID #60 tab 07/02/24 07/24/24 Rx Sulfamethox-Tmp 800-160Mg [Bactrim 1 tab PO Q12HR 7 Days #14 tab 07/18/24 07/24/24 Rx DS 800-160 mg] HYDROcodone/APAP 5-325MG [[place] 1 tab PO Q6HR PRN 07/24/24 07/24/24 History 5-325] Allergies Allergy/AdvReac Type Severity Reaction Status Date / Time No Known Allergies Allergy Verified 07/24/24 09:41 Physical Exam Vitals: Vital Signs Temp Pulse Resp BP Pulse Ox 07/24/24 09:31 95 16 154/92 98 10/30/24 08:51 89 20 149/87 98 07/24/24 08:04 99.1 F 89 36 H 196/105 97 Intake and Output 07/23/24 07/24/24 07/24/24 22:59 06:59 14:59 Other: Weight 90.718 kg Results CBC & Chem 7: 07/24/24 08:10 07/24/24 08:10 Labs: Abnormal Lab Results - Last 24 Hours (Table) 07/24/24 07/24/24 Range/Units 08:10 08:10 MCHC 30.7 L (31.0-37.0) g/dL RDW 17.4 H (11.5-15.5) % Chloride 110 H (98-107) mmol/L Carbon Dioxide 20 L (22-30) mmol/L Glucose 109 H (74-99) mg/dL AST 41 H (14-36) U/L Alkaline Phosphatase 167 H (38-126) U/L
[2024-07-24] MEDS: PANTOPRAZOLE 40 MG/10 ML VIAL IVP SCH (10:49)
[2024-07-24] MEDS: ENOXAPARIN 40 MG/0.4 ML SYRINGE SQ SCH (10:49)
[2024-07-24] MEDS: HYDROmorphone 2 MG/ML 1 ML SYRINGE IVP PRN (12:49)
[2024-07-24 13:50] LABS: Appearance,Urine Clear (Clear); Bilirubin,Urine Negative (Negative); Blood,Urine Negative (Negative); Color,Urine Colorless; Glucose,Urine (UA) Negative (Negative); Ketones,Urine Negative (Negative); Leukocyte Esterase,Urine Trace (Negative); Mucus,Urine Rare /hpf; Nitrite,Urine Negative (Negative); PH, Urine 6.5 (5.0-8.0); Protein,Urine Trace (Negative); Specific Gravity,Urine 1.016 (1.001-1.035); Squamous Epithelial Cell,Urine 4 /hpf (0-4); Urobilinogen,Urine <2.0 mg/dL (<2.0); WBC,Urine 5 /hpf (0-5)
[2024-07-24] MEDS ORDERED: ALBUTEROL NEBULIZED 2.5 MG/3 ML INHALATION PRN ×2 (15:43)
[2024-07-24] MEDS ORDERED: MAG HYDROX/AL HYDROX/SIMETH 30 ML CUP PO PRN (15:43)
[2024-07-24] MEDS ORDERED: ONDANSETRON ODT 4 MG TAB PO PRN (15:43)
[2024-07-24] MEDS ORDERED: DEXTROSE 50% SYRINGE 50 ML IVP PRN ×2 (15:44)
[2024-07-24] MEDS: ONDANSETRON 4 MG/2 ML VIAL IVP PRN (16:00)
[2024-07-24] MEDS: PREGABALIN 75 MG CAP PO SCH (16:16)
[2024-07-24 17:05] LABS: Partial Thromboplastin Time 25.2 sec (22.0-30.0); Prothrombin Time 10.5 sec (10.0-12.5)
[2024-07-24 17:19] LABS: Glucose,Whole Blood 94 mg/dL (70-110)
[2024-07-24] MEDS: INSULIN ASPART (NovoLOG) 100 UNIT/ML VIAL SQ SCH (17:51)
[2024-07-24] MEDS: IPRATROPIUM-ALBUTEROL 3 ML NEB INHALATION SCH (18:16)
[2024-07-24] MEDS: SYMBICORT 160-4.5 MCG INHALER INHALATION SCH (18:16)
[2024-07-24 19:45] LABS: Glucose,Whole Blood 94 mg/dL (70-110)
[2024-07-24] MEDS ORDERED: IPRATROPIUM-ALBUTEROL 3 ML NEB INHALATION SCH (20:00)
[2024-07-24] MEDS: RANOLAZINE 500 MG TAB.ER.12H PO SCH (20:08)
[2024-07-24] MEDS: SULFAMETHOX-TMP 800-160MG 1 EACH TAB PO SCH (20:08)
[2024-07-24] MEDS: METOPROLOL TARTRATE 12.5 MG TAB PO SCH (20:08)
[2024-07-24] MEDS: ALPRAZolam 0.5 MG TAB PO PRN (20:10)
[2024-07-24] MEDS ORDERED: NON FORMULARY DRUG (Omeprazole [Omeprazole] 40 MG Capsule.Dr) PO SCH (21:00)
[2024-07-24] MEDS: HYDROmorphone 0.5 MG/0.5 ML SYRINGE IVP PRN (22:02)
[2024-07-25] MEDS: HYDROcodone/APAP 5-325MG 1 EACH TAB PO PRN (03:45)
[2024-07-25 06:15] LABS: Glucose,Whole Blood 80 mg/dL (70-110)
[2024-07-25] MEDS ORDERED: SPIRIVA RESPIMAT INHALATION SCH (08:00)
[2024-07-25] MEDS ORDERED: MIST INHALATION SCH (08:00)
[2024-07-25] MEDS: ATORVASTATIN 80 MG TAB PO SCH (08:37)
[2024-07-25] MEDS: amLODIPine 10 MG TAB PO SCH (08:37)
[2024-07-25] MEDS: lisinopriL 10 MG TAB PO SCH (08:38)
[2024-07-25] MEDS: ISOSORBIDE MONONITRATE ER 30 MG TAB.ER.24H PO SCH (08:38)
[2024-07-25 08:39] LABS: HCT 32.5 % (37.2-46.3); MCH 26.7 pg (27.0-32.0); MCHC 30.8 g/dL (32.0-37.0); MCV 86.9 FL (80.0-97.0); Mean Platelet Volume 10.5 FL (9.5-12.2); NRBC Per 100 WBC 0 X 10*3/uL (0.00-0.01); Platelet Count 323 X 10*3/uL (140-440); RBC 3.74 X 10*6/uL (4.10-5.20); RDW 17.8 % (11.5-14.5)
[2024-07-25] MEDS ORDERED: CLOPIDOGREL 75 MG TAB PO SCH (09:00)
[2024-07-25 09:08] LABS: BUN/Creat Ratio 12.86 Ratio (12.00-20.00); Calcium 8.8 mg/dL (8.7-10.3); Chloride 112 mmol/L (96-109); Glucose 88 mg/dL (70-110); Potassium 3.6 mmol/L (3.5-5.5); Sodium 142 mmol/L (135-145)
[2024-07-25] MEDS: DAPAGLIFLOZIN PROPANEDIOL 5 MG TABLET PO SCH (11:01)
[2024-07-25 12:14] LABS: Glucose,Whole Blood 101 mg/dL (70-110)
[2024-07-25] MEDS: ASPIRIN 81 MG PO SCH (12:43)
[2024-07-25 13:51] VITALS: BMI 33.3
--- NOTE | 2024-07-25 15:24 | P.PN ---
Subjective HPI:Patient is a 53-year-old female came in with epigastric burning sensation nausea vomiting has been going on since today morning. Patient had extensive history and the patient has hospitalization for prolonged period of time for more than a month for diverticulitis subsequently underwent colectomy and end-to-end anastomosis. Patient was taken to warmer multiple times in the past. Patient had a CT of the abdomen done at outside facility which showed ileus. Patient did move her bowels today and patient does have bowel sounds on exam. Subjective: 07/25/2024: Patient seen at bedside. No significant overnight events. Patient reports she has not passed gas or had a bowel movement since yesterday. Patient reports she still has nausea and is feeling it is well-controlled with the Zofran she is currently on. Patient has no other complaints. Pertinent positives and negatives discussed above, a complete review of systems was preformed and all the other sytems were negative. Vitals Signs Reveiwed. General: non toxic, no distress, appears at stated age, normal weight Derm: no unusual rashes/lesions, warm Head: atraumatic, normocephalic, symmetric Eyes: EOMI, no lid lag, anicteric sclera, pupils equal round reactive to light ENT: Nose and ears atraumatic Neck: No cervical lymphadenopathy, trachea midline, supple Mouth: no lip lesion, mucus membranes moist Cardiovascular: S1S2 reg, no murmur, positive dorsalis pedis pulse bilateral, no edema Lungs: Decreased air entry bilaterally, no rhonchi, no rales, no accessory muscle use Abdominal: soft, nontender to palpation, no guarding, well-healing surgical scar appreciated in the central abdomen. Ext: muscle strength 5 out of 5 in all 4 extremities grossly, no gross muscle atrophy, no contractures, Neuro: CN II-XI grossly intact, no gross focal neuro deficits Psych: Alert, oriented, appropriate affect Data Reveiwed Today: Patient Labs: WBC 5.3, hemoglobin 10, MCV 86.9, sodium 142, potassium 3.6, bicarb 20, creatinine 0.7, and calcium 8.8. Imaging: No new imaging Assessment and plan -Epigastric burning sensation probably peptic ulcer disease or gastritis patient was started on Protonix twice a day. -Possible ileus on as per the CAT scan although patient clinically has bowel sounds and did move her bowels today morning. General surgery was consulted from ER. Patient is presently on Dilaudid I am not starting her on any non steroidal anti-inflammatories because of her epigastric burning sensation and possibility of peptic ulcer disease -Coronary artery disease with previous stents in the past -COPD -Type 2 diabetes mellitus -Gastroesophageal reflux disease -Hypertension -Nicotine use: Counseling was provided -Bipolar disorder and anxiety disorder -Problem mentioned chronic medical problems patient resumed appropriate home medications once verified. F NS 75 cc/h E none N clear liquid diet A normally ambulates unassisted at home DVT ppx: Lovenox 40 SQ daily GI ppx: Protonix 40 mg IVP twice daily Code Status: Full code Anticipated discharge place: To home Anticipated discharge time: Pending clinical course Attestation I have seen and examined this patient with my resident , discussed the same with the resident/OLIVIA, and agree with the dictator's assessment and plan as written Dr. Isra lundy Objective - Vital Signs Vital signs: Vital Signs Temp 98.7 F 07/25/24 14:32 Pulse 85 07/25/24 14:32 Resp 17 07/25/24 14:32 BP 92/59 07/25/24 14:32 Pulse Ox 95 07/25/24 14:32 FiO2 Intake & Output 07/24/24 07/25/24 07/25/24 18:59 06:59 18:59 Intake Total 0 Balance 0 Weight 90.718 kg 90.718 kg Intake: Oral 0 Other: Voiding Method Toilet Toilet Toilet # Voids 1 2 2 - Labs CBC & Chem 7: 07/25/24 05:23 07/26/24 06:21 Labs: Abnormal Lab Results - Last 24 Hours (Table) 07/25/24 07/25/24 Range/Units 05:17 05:23 RBC 3.74 L (4.10-5.20) X 10*6/uL Hgb 10.0 L (12.0-15.0) g/dL Hct 32.5 L (37.2-46.3) % MCH 26.7 L (27.0-32.0) pg MCHC 30.8 L (32.0-37.0) g/dL RDW 17.8 H (11.5-14.5) % Chloride 112 H (96-109) mmol/L Carbon Dioxide 20.0 L (21.6-31.8) mmol/L
--- NOTE | 2024-07-25 16:02 | P.GSCN ---
History of Present Illness Consult date: 07/25/24 History of present illness: CHIEF COMPLAINT: Abdominal pain HISTORY OF PRESENT ILLNESS: This is a 53-year-old female who initially went to [facility] due to abdominal pain. Patient reports that pain is across the upper abdomen as well as the sides of the abdomen x 3 days. Patient reports that she ate pork chops with green beans and then had a large loose liquidy bowel movement. Then started having abdominal cramping. Colleen she started with vomiting. Again continued to have pain and had a small liquidy stool yesterday morning. She came into [facility] and had a CAT scan completed That reported extensive postsurgical changes of the bowels with few gas and fluid- filled loops of proximal jejunum may represent ileus favored over small bowel obstruction. No appreciable transition point. Patient also reporting that dairy products seem to cause abdominal bloating and discomfort. Patient was just recently admitted to the hospital with a seroma at her incision site. Patient is status post diagnostic laparoscopy converted to an open ileocecectomy for colitis with intramural abscess on 06/14/2024 and on 06/22/2024 taken back to the OR for exploratory laparotomy with extensive lysis of adhesions and small bowel resection x 2 and proximal right colon resection for small bowel obstruction secondary to adhesions and inflammation. July 05 she had been hospitalized and treated for an abdominal ileus. Surgical service was consulted for abdominal pain. PAST MEDICAL HISTORY: See below PAST SURGICAL HISTORY: See below MEDICATIONS: See below ALLERGIES: See below SOCIAL HISTORY: No illicit drug use. REVIEW OF SYSTEMS: CONSTITUTIONAL: Denies fever or chills. HEENT: Denies blurred vision, vision changes, or eye pain. Denies hemoptysis CARDIOVASCULAR: Denies chest pain or pressure. RESPIRATORY: No shortness of breath. GASTROINTESTINAL: See HPI for pertinent findings HEMATOLOGIC: Denies bleeding disorders. GENITOURINARY: Denies any blood in urine or increased urinary frequency. SKIN: Denies pruitis. Denies rash. PHYSICAL EXAM: VITAL SIGNS: Reviewed GENERAL: Well-developed in no acute distress. HEENT: No sclera icterus. Extraocular movements grossly intact. Moist buccal mucosa. Head is atraumatic, normocephalic. No nasal drainage. ABDOMEN: Soft. Nondistended. Tenderness with palpation across the upper abdomen. Patient is tender on the right and left lower sides of the abdomen. Her midline incision is clean dry and intact with no drainage. No guarding. No rebound tenderness. NEUROLOGIC: Alert and oriented. Cranial nerves II through XII grossly intact. LABORATORY DATA: WBC 5.30 Hgb 12.2 down to 10 platelets 323 Sodium 142 potassium 3.6 creatinine 0.7 Total bilirubin 0.3 AST 41 ALT 32 alk phos 167 lipase 88 IMAGING: CT scan as stated above ASSESSMENT: 1. Abdominal pain likely due to abdominal ileus PLAN: -Start patient on a clear liquid diet -Patient's diet might also be contributing to her recurrent abdominal pain and ileus. Recommend lactose-free foods and high fiber diet when she is tolerating solid foods -Consult dietitian for education on a high-fiber diet -Continue IV Protonix -Unable to start Reglan due to its interaction with Requip -Continue Zofran as needed -Encouraged patient to ambulate Thank You for this consultation Physician Direct Service Worker note has been reviewed by physician. Signing provider agrees with the documented findings, assessment, and plan of care. Attestation Patient seen and examined at bedside. Patient is well-known to the service since her surgery. The patient states that on Monday, about 48 hours ago she had pork chops and began having significant abdominal cramping and loose stool. Since then she has had abdominal soreness. Prior to this, she does state that she had some continued abdominal pain. She states that pain seems to be associated with diet. She is noticing that with certain foods she either vomits or has loose bowel function. Based on this information and imaging from multiple admissions, I am suspicious of diet related ileus and bowel abnormality secondary to previous bowel resection. We will have dietitian evaluate the patient. Continue clear liquid diet at this time. Initially plan was to start Reglan, however it does have interaction with patient's Requip so we will hold for now. Marga Samuel, Past Medical History Past Medical History: Asthma, Coronary Artery Disease (CAD), COPD, Diabetes Mellitus, GERD/Reflux, Hypertension, Myocardial Infarction (VA), Osteoarthritis (OA) Additional Past Medical History / Comment(s): DDD, scoliosis, VA x4 Last Myocardial Infarction Date:: 2011 History of Any Multi-Drug Resistant Organisms: None Reported Past Surgical History: Appendectomy, Bowel Resection, Coronary Bypass/CABG, Heart Catheterization With Stent Additional Past Surgical History / Comment(s): seven stents, here for gastroenteritis with abcess (removal 06/21/24), per pt 2 ABD procedures at the same area, Bowel resection with appendectomy 07/05/2024 Past Anesthesia/Blood Transfusion Reactions: No Reported Reaction Date of Last Stent Placement:: 11/2018 Past Psychological History: Anxiety, Bipolar Smoking Status: Current every day smoker Past Alcohol Use History: None Reported Additional Past Alcohol Use History / Comment(s): 1 ppd Past Drug Use History: Marijuana - Past Family History Mother Family Medical History: Cancer Additional Family Medical History / Comment(s): Ovarian cancer Father Family Medical History: Congestive Heart Failure (CHF) Fmily Family Medical History: No Reported History Medications and Allergies Home Medications Medication Instructions Recorded Confirmed Type Atorvastatin [Lipitor] 80 mg PO DAILY 07/08/20 07/24/24 History Ranolazine [Ranexa] 1,000 mg PO BID 11/13/21 07/24/24 History Albuterol Inhaler [Ventolin Hfa 2 puff INHALATION RT-QID PRN 03/27/23 07/24/24 History Inhaler] Aspirin EC [Ecotrin Low Dose] 81 mg PO DAILY 03/27/23 07/24/24 History Budesonide/Formoterol Fumarate 2 puff INHALATION RT-BID 03/27/23 07/24/24 History [Symbicort 160-4.5 Mcg Inhaler] Clopidogrel [Plavix] 75 mg PO DAILY 03/27/23 07/24/24 History Nitroglycerin Sl Tabs [Nitrostat] 0.4 mg SL Q5M PRN 03/27/23 07/24/24 History Omeprazole 40 mg PO BID 03/27/23 07/24/24 History Pregabalin [Lyrica] 150 mg PO TID 03/27/23 07/24/24 History amLODIPine [Norvasc] 10 mg PO DAILY 03/27/23 07/24/24 History metFORMIN HCL 1,000 mg PO BID 03/27/23 07/24/24 History rOPINIRole HCL [Requip] 1 mg PO HS 03/27/23 07/24/24 History ALPRAZolam [Xanax] 0.5 mg PO BID PRN 06/22/23 07/24/24 History Dapagliflozin Propanediol [Farxiga] 5 mg PO DAILY 03/16/24 07/24/24 History Dulaglutide [Trulicity] 3 mg SQ WE 03/16/24 07/24/24 History Insulin Lispro [humaLOG Kwikpen] See Protocol SQ AC-TID 03/16/24 07/24/24 History Ipratropium-Albuterol Nebulize 3 ml INHALATION RT-TID 03/16/24 07/24/24 History [Duoneb 0.5 mg-3 mg/3 ml Soln] Isosorbide Mononitrate ER [Imdur] 30 mg PO DAILY 03/16/24 07/24/24 History Mag Hydrox/Al Hydrox/Simeth 30 ml PO QID PRN 2 Days #180 ml 05/22/24 07/24/24 Rx [Maalox] Spiriva Respimat 1.25mcg/Actuation 2 puff INHALATION RT-DAILY 05/24/24 07/24/24 History Mist Albuterol Nebulized [Ventolin 2.5 mg INHALATION RT-Q6H PRN 05/31/24 07/24/24 History Nebulized] Ondansetron Odt [Zofran ODT] 4 mg PO Q8HR PRN 05/31/24 07/24/24 History lisinopriL [Zestril] 10 mg PO DAILY 05/31/24 07/24/24 History Cholestyramine (with Sugar) 4 gm PO BID #60 packet 06/03/24 07/24/24 Rx [Questran Packet] Metoprolol Tartrate [Lopressor] 12.5 mg PO BID #60 tab 07/02/24 07/24/24 Rx Sulfamethox-Tmp 800-160Mg [Bactrim 1 tab PO Q12HR 7 Days #14 tab 07/18/24 07/24/24 Rx DS 800-160 mg] HYDROcodone/APAP 5-325MG [[place] 1 tab PO Q6HR PRN 07/24/24 07/24/24 History 5-325] Allergies Allergy/AdvReac Type Severity Reaction Status Date / Time No Known Allergies Allergy Verified 07/24/24 09:41 Surgical - Exam Osteopathic Statement: *. No significant issues noted on an osteopathic structural exam other than those noted in the History and Physical/Consult. Vital Signs Temp Pulse Resp BP Pulse Ox 99.1 F 89 36 H 196/105 97 07/24/24 08:04 07/24/24 08:04 07/24/24 08:04 07/24/24 08:04 07/24/24 08:04 Results - Labs 07/25/24 05:23 07/25/24 05:17 Abnormal Lab Results - Last 24 Hours (Table) 07/24/24 07/25/24 07/25/24 Range/Units 13:30 05:17 05:23 RBC 3.74 L (4.10-5.20) X 10*6/uL Hgb 10.0 L (12.0-15.0) g/dL Hct 32.5 L (37.2-46.3) % MCH 26.7 L (27.0-32.0) pg MCHC 30.8 L (32.0-37.0) g/dL RDW 17.8 H (11.5-14.5) % Chloride 112 H (96-109) mmol/L Carbon Dioxide 20.0 L (21.6-31.8) mmol/L Urine Protein Trace H (Negative) Ur Leukocyte Esterase Trace H (Negative) Urine Mucus Rare H (None) /hpf Diabetes panel 07/25/24 07/25/24 Range/Units 05:17 05:23 Sodium 142 (135-145) mmol/L Potassium 3.6 (3.5-5.5) mmol/L Chloride 112 H (96-109) mmol/L Carbon Dioxide 20.0 L (21.6-31.8) mmol/L BUN 9.0 (9.0-27.0) mg/dL Creatinine 0.7 (0.6-1.5) mg/dL Glucose 88 (70-110) mg/dL Hemoglobin A1c 5.2 (<=6.0) % Calcium 8.8 (8.7-10.3) mg/dL Calcium panel 07/25/24 Range/Units 05:17 Calcium 8.8 (8.7-10.3) mg/dL Pituitary panel 07/25/24 Range/Units 05:17 Sodium 142 (135-145) mmol/L Potassium 3.6 (3.5-5.5) mmol/L Chloride 112 H (96-109) mmol/L Carbon Dioxide 20.0 L (21.6-31.8) mmol/L BUN 9.0 (9.0-27.0) mg/dL Creatinine 0.7 (0.6-1.5) mg/dL Glucose 88 (70-110) mg/dL Calcium 8.8 (8.7-10.3) mg/dL Adrenal panel 07/25/24 Range/Units 05:17 Sodium 142 (135-145) mmol/L Potassium 3.6 (3.5-5.5) mmol/L Chloride 112 H (96-109) mmol/L Carbon Dioxide 20.0 L (21.6-31.8) mmol/L BUN 9.0 (9.0-27.0) mg/dL Creatinine 0.7 (0.6-1.5) mg/dL Glucose 88 (70-110) mg/dL Calcium 8.8 (8.7-10.3) mg/dL
[2024-07-25 17:11] LABS: Glucose,Whole Blood 89 mg/dL (70-110)
[2024-07-25] MEDS: INSULIN ASPART (NovoLOG) 100 UNIT/ML VIAL SQ SCH (17:37)
[2024-07-25 20:01] LABS: Glucose,Whole Blood 147 mg/dL (70-110)
[2024-07-26 06:06] LABS: Glucose,Whole Blood 74 mg/dL (70-110)
[2024-07-26 07:07] LABS: African American GFR (CKD) >90 (>60 ml/min/1.73 sqM); Anion Gap 9 mmol/L; Blood Urea Nitrogen 5 mg/dL (7-17); Calcium 9.1 mg/dL (8.4-10.2); Carbon Dioxide 19 mmol/L (22-30); Chloride 115 mmol/L (98-107); Glucose 73 mg/dL (74-99); Non-African American GFR(CKD) >90 (>60 ml/min/1.73 sqM); Potassium 3.8 mmol/L (3.5-5.1); Sodium 143 mmol/L (137-145)
[2024-07-26 11:52] LABS: Glucose,Whole Blood 110 mg/dL (70-110)
[2024-07-26] MEDS: IBUPROFEN 600 MG TAB PO STA (12:42)
[2024-07-26 13:27] VITALS: BP 110/70; PULSE 83; RESP 18; TEMP 98.3
--- NOTE | 2024-07-26 13:48 | P.DS ---
Providers Date of admission: 07/24/24 09:39 Expected date of discharge: 07/26/24 Attending physician: Ignacia Morse Consults: 07/24/24 09:39 Consult Physician Routine Consulting Provider: Adrian Dubois Consult Reason/Comments: Ab pain. post op 1 month Do you want consulting provider notified?: Yes Primary care physician: Kemar Jin MD Hospital Course: Discharge diagnoses; -Epigastric pain resolved Ileus resolved -Coronary artery disease with previous stents in the past -COPD -Type 2 diabetes mellitus -Gastroesophageal reflux disease -Hypertension -Nicotine use -Bipolar disorder and anxiety disorder -Problem mentioned chronic medical problems patient resumed appropriate home medications once verified. Hospital course; Patient is a 53-year-old female came in with epigastric burning sensation nausea vomiting has been going on since today morning. Patient had extensive history and the patient has hospitalization for prolonged period of time for more than a month for diverticulitis subsequently underwent colectomy and end-to-end anastomosis. Patient was taken to warmer multiple times in the past. Patient had a CT of the abdomen done at outside facility which showed ileus. Patient did move her bowels today and patient does have bowel sounds on exam. 07/25/2024: Patient seen at bedside. No significant overnight events. Patient reports she has not passed gas or had a bowel movement since yesterday. Patient reports she still has nausea and is feeling it is well-controlled with the Zofran she is currently on. Patient has no other complaints. 07/26. Patient seen and examined. Patient had bowel movement this morning, diet was advanced to regular, patient could not tolerating regular diet. General sood rgery cleared the patient for discharge PHYSICAL EXAMINATION: GENERAL: The patient is alert and oriented x3, not in any acute distress. Well developed, well nourished. HEENT: Pupils are round and equally reacting to light. EOMI. No scleral icterus. No conjunctival pallor. Normocephalic, atraumatic. No pharyngeal erythema. No thyromegaly. CARDIOVASCULAR: S1 and S2 present. No murmurs, rubs, or gallops. PULMONARY: Chest is clear to auscultation, no wheezing or crackles. ABDOMEN: Soft, nontender, nondistended, normoactive bowel sounds. Surgical incision seen MUSCULOSKELETAL: No joint swelling or deformity. EXTREMITIES: No cyanosis, clubbing, or pedal edema. NEUROLOGICAL: Gross neurological examination did not reveal any focal deficits. SKIN: No rashes. Dictation was produced using Solaborate dictation software. please excuse any grammatical, word or spelling errors. Patient Condition at Discharge: Stable Plan - Discharge Summary Discharge Rx Participant: No New Discharge Prescriptions: Continue Atorvastatin [Lipitor] 80 mg PO DAILY Ranolazine [Ranexa] 1,000 mg PO BID metFORMIN HCL 1,000 mg PO BID Nitroglycerin Sl Tabs [Nitrostat] 0.4 mg SL Q5M PRN PRN Reason: Chest Pain Aspirin EC [Ecotrin Low Dose] 81 mg PO DAILY Albuterol Inhaler [Ventolin Hfa Inhaler] 2 puff INHALATION RT-QID PRN PRN Reason: Shortness Of Breath Isosorbide Mononitrate ER [Imdur] 30 mg PO DAILY Insulin Lispro [humaLOG Kwikpen] See Protocol SQ AC-TID Dapagliflozin Propanediol [Farxiga] 5 mg PO DAILY Dulaglutide [Trulicity] 3 mg SQ WE Ipratropium-Albuterol Nebulize [Duoneb 0.5 mg-3 mg/3 ml Soln] 3 ml INHALATION RT-TID Spiriva Respimat 1.25mcg/Actuation Mist 2 puff INHALATION RT-DAILY Ondansetron Odt [Zofran ODT] 4 mg PO Q8HR PRN PRN Reason: Nausea lisinopriL [Zestril] 10 mg PO DAILY Cholestyramine (with Sugar) [Questran Packet] 4 gm PO BID #60 packet Metoprolol Tartrate [Lopressor] 12.5 mg PO BID #60 tab rOPINIRole HCL [Requip] 1 mg PO HS amLODIPine [Norvasc] 10 mg PO DAILY Omeprazole 40 mg PO BID Budesonide/Formoterol Fumarate [Symbicort 160-4.5 Mcg Inhaler] 2 puff INHALATION RT-BID Pregabalin [Lyrica] 150 mg PO TID Clopidogrel [Plavix] 75 mg PO DAILY ALPRAZolam [Xanax] 0.5 mg PO BID PRN PRN Reason: Anxiety Mag Hydrox/Al Hydrox/Simeth [Maalox] 30 ml PO QID PRN 2 Days #180 ml PRN Reason: Heartburn Albuterol Nebulized [Ventolin Nebulized] 2.5 mg INHALATION RT-Q6H PRN PRN Reason: Shortness Of Breath Sulfamethox-Tmp 800-160Mg [Bactrim DS 800-160 mg] 1 tab PO Q12HR 7 Days #14 tab HYDROcodone/APAP 5-325MG [[place] 5-325] 1 tab PO Q6HR PRN 3 Days #12 tab PRN Reason: Pain Discharge Medication List Atorvastatin [Lipitor] 80 mg PO DAILY 07/08/20 [History] Ranolazine [Ranexa] 1,000 mg PO BID 11/13/21 [History] Albuterol Inhaler [Ventolin Hfa Inhaler] 2 puff INHALATION RT-QID PRN 03/27/23 [History] Aspirin EC [Ecotrin Low Dose] 81 mg PO DAILY 03/27/23 [History] Budesonide/Formoterol Fumarate [Symbicort 160-4.5 Mcg Inhaler] 2 puff INHALATION RT-BID 03/27/23 [History] Clopidogrel [Plavix] 75 mg PO DAILY 03/27/23 [History] Nitroglycerin Sl Tabs [Nitrostat] 0.4 mg SL Q5M PRN 03/27/23 [History] Omeprazole 40 mg PO BID 03/27/23 [History] Pregabalin [Lyrica] 150 mg PO TID 03/27/23 [History] amLODIPine [Norvasc] 10 mg PO DAILY 03/27/23 [History] metFORMIN HCL 1,000 mg PO BID 03/27/23 [History] rOPINIRole HCL [Requip] 1 mg PO HS 03/27/23 [History] ALPRAZolam [Xanax] 0.5 mg PO BID PRN 06/22/23 [History] Dapagliflozin Propanediol [Farxiga] 5 mg PO DAILY 03/16/24 [History] Dulaglutide [Trulicity] 3 mg SQ WE 03/16/24 [History] Insulin Lispro [humaLOG Kwikpen] See Protocol SQ AC-TID 03/16/24 [History] Ipratropium-Albuterol Nebulize [Duoneb 0.5 mg-3 mg/3 ml Soln] 3 ml INHALATION RT-TID 03/16/24 [History] Isosorbide Mononitrate ER [Imdur] 30 mg PO DAILY 03/16/24 [History] Mag Hydrox/Al Hydrox/Simeth [Maalox] 30 ml PO QID PRN 2 Days #180 ml 05/22/24 [Rx] Spiriva Respimat 1.25mcg/Actuation Mist 2 puff INHALATION RT-DAILY 05/24/24 [History] Albuterol Nebulized [Ventolin Nebulized] 2.5 mg INHALATION RT-Q6H PRN 05/31/24 [History] Ondansetron Odt [Zofran ODT] 4 mg PO Q8HR PRN 05/31/24 [History] lisinopriL [Zestril] 10 mg PO DAILY 05/31/24 [History] Cholestyramine (with Sugar) [Questran Packet] 4 gm PO BID #60 packet 06/03/24 [Rx] Metoprolol Tartrate [Lopressor] 12.5 mg PO BID #60 tab 07/02/24 [Rx] Sulfamethox-Tmp 800-160Mg [Bactrim DS 800-160 mg] 1 tab PO Q12HR 7 Days #14 tab 07/18/24 [Rx] HYDROcodone/APAP 5-325MG [[place] 5-325] 1 tab PO Q6HR PRN 3 Days #12 tab 07/26/24 [Rx] Follow up Appointment(s)/Referral(s): Kemar Jin MD [Primary Care Provider] - 1-2 days Activity/Diet/Wound Care/Special Instructions: Recommend taking Metamucil [id number] for fiber supplement Discharge Disposition: HOME SELF-CARE
--- NOTE | 2024-07-26 13:58 | P.PN ---
Subjective Progress Note Date: 07/26/24 SURGICAL PROGRESS NOTE CHIEF COMPLAINT: Ileus HISTORY OF PRESENT ILLNESS: Patient reports she is feeling better today. She had 3 bowel movements last night and is having flatus. She denies any nausea or vomiting. She tolerated the liquid diet. She did meet with the dietitian for high fiber diet education. She is afebrile. She feels ready for discharge. She has been up and ambulating. PHYSICAL EXAM: VITAL SIGNS: Reviewed. GENERAL: Well-developed in no acute distress. ABDOMEN: Soft. Nondistended. Nontender. NEUROLOGIC: Alert and oriented. Cranial nerves II through XII grossly intact. ASSESSMENT: 1. Abdominal ileus PLAN: -Patient can be discharged from surgical standpoint -Recommend continuing a high-fiber diet -Recommend Metamucil [id number] daily for fiber supplement -Encourage patient to continue to ambulate Physician Humanities Department Chair note has been reviewed by physician. Signing provider agrees with the documented findings, assessment, and plan of care. Objective - Vital Signs Vital signs: Vital Signs Temp 98.3 F 07/26/24 13:10 Pulse 83 07/26/24 13:10 Resp 18 07/26/24 13:10 BP 110/70 07/26/24 13:10 Pulse Ox 97 07/26/24 13:10 FiO2 Intake & Output 07/25/24 07/26/24 07/26/24 18:59 06:59 18:59 Intake Total 540 520 Balance 540 520 Weight 90.718 kg Intake: Oral 540 520 Other: Voiding Method Toilet Toilet Toilet # Voids 2 1 7 # Bowel Movements 1 3 - Labs CBC & Chem 7: 07/25/24 05:23 07/26/24 06:21 Labs: Abnormal Lab Results - Last 24 Hours (Table) 07/25/24 07/26/24 Range/Units 20:00 06:21 Chloride 115 H (98-107) mmol/L Carbon Dioxide 19 L (22-30) mmol/L BUN 5 L (7-17) mg/dL Glucose 73 L (74-99) mg/dL POC Glucose (mg/dL) 147 H (70-110) mg/dL Assessment and Plan Assessment: 53 yo female s/p ileocectomy -ct negative for acute process -abdominal pain improved -stable for discharge Time with Patient: Less than 30
== END 2024-07-26 14:43 | disposition home or self-care (01) ==
LOC: EC 07:59 → 6NMEDSUR 09:39
PROVIDERS: ADMIT Internal Medicine; ATTEND Internal Medicine
DX: K56.7 Ileus, unspecified (principal); I25.10 Atherosclerotic heart disease of native coronary artery without angina pectoris; J44.9 Chronic obstructive pulmonary disease, unspecified; E11.9 Type 2 diabetes mellitus without complications; K21.9 Gastro-esophageal reflux disease without esophagitis; I10 Essential (primary) hypertension; F31.9 Bipolar disorder, unspecified; F41.9 Anxiety disorder, unspecified; I25.2 Old myocardial infarction; F17.200 Nicotine dependence, unspecified, uncomplicated; Z95.5 Presence of coronary angioplasty implant and graft; Z79.02 Long term (current) use of antithrombotics/antiplatelets; Z79.51 Long term (current) use of inhaled steroids; Z79.82 Long term (current) use of aspirin; Z79.84 Long term (current) use of oral hypoglycemic drugs; Z79.85 Long-term (current) use of injectable non-insulin antidiabetic drugs; Z79.899 Other long term (current) drug therapy
CPT/HCPCS: 96376 ×4; 96372 ×3; 96374 ×2; 96361; 96375; 99285; 36415; 94640 ×5; 97161; 36410; 76937; 80053; 80048 ×2; 83605; 83690; 85025; 85027; 85610; 85730; 81001; 83036; G0378 ×3; J1171 ×6; J2405 ×2; J1650 ×3; J2470 ×3

== ENCOUNTER 2024-07-29 13:47 | Inpatient (IN) | payer OTHER ==
--- NOTE | 2024-07-29 14:26 | ED ---
General Adult HPI - General Chief complaint: Abdominal Pain Stated complaint: Abd Pain Time Seen by Provider: 07/29/24 14:00 Source: patient, EMS, RN notes reviewed, old records reviewed Mode of arrival: EMS Limitations: no limitations - History of Present Illness Initial comments: Is a 53-year-old female who has had a past surgery in May for a perforated bowel. According to the patient she has been back for an ileus as well as another surgery where they took part of her colon and her appendix out. Patient states this morning she woke up she had significant abdominal pain nausea and vomiting. Patient denies any diarrhea but she is passing gas. Patient states she called Dr. Dubois who did her surgery and he recommended she come to the e mergency department. Patient denies any fever chills. Patient denies any chest pain patient denies difficulty breathing. Patient denies any back pain. Patient denies any dysuria hematuria urinary frequency - Related Data Home Medications Medication Instructions Recorded Confirmed Atorvastatin [Lipitor] 80 mg PO DAILY 07/08/20 07/29/24 Ranolazine [Ranexa] 1,000 mg PO BID 11/13/21 07/29/24 Albuterol Inhaler [Ventolin Hfa 2 puff INHALATION RT-QID PRN 03/27/23 07/29/24 Inhaler] Aspirin EC [Ecotrin Low Dose] 81 mg PO DAILY 03/27/23 07/29/24 Budesonide/Formoterol Fumarate 2 puff INHALATION RT-BID 03/27/23 07/29/24 [Symbicort 160-4.5 Mcg Inhaler] Clopidogrel [Plavix] 75 mg PO DAILY 03/27/23 07/29/24 Nitroglycerin Sl Tabs [Nitrostat] 0.4 mg SL Q5M PRN 03/27/23 07/29/24 Omeprazole 40 mg PO BID 03/27/23 07/29/24 Pregabalin [Lyrica] 150 mg PO TID 03/27/23 07/29/24 amLODIPine [Norvasc] 10 mg PO DAILY 03/27/23 07/29/24 metFORMIN HCL 1,000 mg PO BID 03/27/23 07/29/24 rOPINIRole HCL [Requip] 1 mg PO HS 03/27/23 07/29/24 ALPRAZolam [Xanax] 0.5 mg PO BID PRN 06/22/23 07/29/24 Dapagliflozin Propanediol [Farxiga] 5 mg PO DAILY 03/16/24 07/29/24 Dulaglutide [Trulicity] 3 mg SQ WE 03/16/24 07/29/24 Insulin Lispro [humaLOG Kwikpen] See Protocol SQ AC-TID 03/16/24 07/29/24 Ipratropium-Albuterol Nebulize 3 ml INHALATION RT-TID 03/16/24 07/29/24 [Duoneb 0.5 mg-3 mg/3 ml Soln] Isosorbide Mononitrate ER [Imdur] 30 mg PO DAILY 03/16/24 07/29/24 Spiriva Respimat 1.25mcg/Actuation 2 puff INHALATION RT-DAILY 05/24/24 07/29/24 Mist Albuterol Nebulized [Ventolin 2.5 mg INHALATION RT-Q6H PRN 05/31/24 07/29/24 Nebulized] Ondansetron Odt [Zofran ODT] 4 mg PO Q8HR PRN 05/31/24 07/29/24 lisinopriL [Zestril] 10 mg PO DAILY 05/31/24 07/29/24 Previous Rx's Medication Instructions Recorded Mag Hydrox/Al Hydrox/Simeth 30 ml PO QID PRN 2 Days #180 ml 05/22/24 [Maalox] Cholestyramine (with Sugar) 4 gm PO BID #60 packet 06/03/24 [Questran Packet] Metoprolol Tartrate [Lopressor] 12.5 mg PO BID #60 tab 07/02/24 HYDROcodone/APAP 5-325MG [Mina 1 tab PO Q6HR PRN 3 Days #12 tab 07/26/24 5-325] Allergies Allergy/AdvReac Type Severity Reaction Status Date / Time No Known Allergies Allergy Verified 07/29/24 15:20 Review of Systems ROS Statement: Those systems with pertinent positive or pertinent negative responses have been documented in the HPI. ROS Other: All systems not noted in ROS Statement are negative. Past Medical History Past Medical History: Asthma, Coronary Artery Disease (CAD), COPD, Diabetes Yeimi litus, GERD/Reflux, Hypertension, Myocardial Infarction (AZ), Osteoarthritis (OA) Additional Past Medical History / Comment(s): DDD, scoliosis, [place] x4 Last Myocardial Infarction Date:: 2011 History of Any Multi-Drug Resistant Organisms: None Reported Past Surgical History: Appendectomy, Bowel Resection, Coronary Bypass/CABG, Heart Catheterization With Stent Additional Past Surgical History / Comment(s): seven stents, here for gastroenteritis with abcess (removal 06/21/24), per pt 2 ABD procedures at the same area, Bowel resection with appendectomy 07/05/2024 Past Anesthesia/Blood Transfusion Reactions: No Reported Reaction Date of Last Stent Placement:: 11/2018 Past Psychological History: Anxiety, Bipolar Smoking Status: Current every day smoker Past Alcohol Use History: None Reported Past Drug Use History: Marijuana - Past Family History Mother Family Medical History: Cancer Additional Family Medical History / Comment(s): Ovarian cancer Father Family Medical History: Congestive Heart Failure (CHF) Fmily Family Medical History: No Reported History General Exam - General Exam Comments Initial Comments: GENERAL: Patient is well-developed and well-nourished. Patient is nontoxic and well- hydrated and is in mild distress. ENT: Neck is soft and supple. No significant lymphadenopathy is noted. Oropharynx is clear. Moist mucous membranes. Neck has full range of motion without eliciting any pain. EYES: The sclera were anicteric and conjunctiva were pink and moist. Extraocular movements were intact and pupils were equal round and reactive to light. Eyelids were unremarkable. PULMONARY: Unlabored respirations. Good breath sounds bilaterally. No audible rales rhonchi or wheezing was noted. CARDIOVASCULAR: There is a regular rate and rhythm without any murmurs gallops or rubs. ABDOMEN: Had right and left lower quadrant tenderness on palpation however with distraction and palpation patient had no apparent tenderness SKIN: Skin is clear with no lesions or rashes and otherwise unremarkable. NEUROLOGIC: Patient is alert and oriented x3. Cranial nerves II through XII are grossly intact. Motor and sensory are also intact. Normal speech, volume and content. Symmetrical smile. MUSCULOSKELETAL: Normal extremities with adequate strength and full range of motion. LYMPHATICS: No significant lymphadenopathy is noted PSYCHIATRIC: Normal psychiatric evaluation. Limitations: no limitations Course Vital Signs 07/29/24 07/29/24 07/29/24 13:51 16:42 18:44 Temperature 98.1 F Pulse Rate 104 H 134 H 111 H Respiratory 16 30 H 16 Rate Blood Pressure 181/116 132/87 108/86 O2 Sat by Pulse 96 100 99 Oximetry Medical Decision Making - Medical Decision Making Patient went for a CAT scan of the abdomen pelvis with IV contrast shortly thereafter she is found difficulty breathing she was tachycardic. I evaluated the patient she was complaining some epigastric abdominal pain at this time and was tachycardic with an EKG shows sinus tachycardia 152 bpm LA interval 121 QRS of 76 QT interval 321 QTc is 399. Patient's EKG did show some ST segment depression in the inferior leads as well as the precordial leads V3 through V6 repeat EKG was done when the patient was started to feel little bit better and EKG shows sinus tachycardia at 106 bpm. It was 132 QRS is 81 QT interval 364 QTc is 426. Patient's EKG shows ST segment depression in V3 through V6 as well as inferior leads. Was pt. sent in by a medical professional or institution (, PA, TIME STUDY TECHNICIAN, urgent care, hospital, or prison...) When possible be specific @ -No Did you speak to anyone other than the patient for history (EMS, parent, family, police, friend...)? What history was obtained from this source @ -No Did you review nursing and triage notes (agree or disagree)? Why? @ -I reviewed and agree with nursing and triage notes Were old charts reviewed (outside hosp., previous admission, EMS record, old EKG, old radiological studies, urgent care reports/EKG's, prison records)? Report findings @ -No old charts were reviewed Differential Diagnosis? @ -Differential Abdominal Pain Women: Appendicitis, Cholecystitis, diverticulosis, ischemic bowel, pancreatitis, hepatitis, UTI, gastroenteritis, AAA, incarcerated hernia, bowel obstruction, constipation, inflammatory bowel, hepatitis, peptic ulcer disease, splenic infarction, perforated viscus, vulvitis, ovarian torsion, PID, kidney stone, placenta abruption, this is not meant to be an all-inclusive list EKG interpreted by me (3pts min.). @ -As above X-rays interpreted by me (1pt min.). @ -None done CT interpreted by me (1pt min.). @ -Patient had inflammation around the terminal ileum U/S interpreted by me (1pt. min.). @ -None done What testing was considered but not performed or refused? (CT, X-rays, U/S, labs)? Why? @ -None What meds were considered but not given or refused? Why? @ -None Did you discuss the management of the patient with other professionals (professionals i.e. , PA, TIME STUDY TECHNICIAN, lab, RT, psych nurse, health and social care teacher, addiction counselor, teacher, aoc plans intelligence officer, director case)? Give summary @ -I spoke with [facility] the patient will be admitted to them Was smoking cessation discussed for >3mins.? @ -No Was critical care preformed (if so, how long)? @ -No Were there social determinants of health that impacted care today? How? (Homelessness, low income, unemployed, alcoholism, drug addiction, transportation, low edu. Level, literacy, decrease access to med. care, prison, rehab)? @ -No Was there de-escalation of care discussed even if they declined (Discuss DNR or withdrawal of care, Hospice)? DNR status @ -No What co-morbidities impacted this encounter? (DM, HTN, Smoking, COPD, CAD, Cancer, CVA, ARF, Chemo, Hep., AIDS, mental health diagnosis, sleep apnea, morbid obesity)? @ -None Was patient admitted / discharged? Hospital course, mention meds given and route, prescriptions, significant lab abnormalities, going to OR and other pertinent info. @ -Patient had inflammation around the terminal illness and and the surgery will be consulted. Patient also had an episode and CAT scan of some epigastric discomfort and tachycardia so patient's EKG did show some ST segment depression troponin levels were done every 3 hours that showed initial troponin of 0.018 and then after 3 hours it was 0.046. I started the patient on heparin and patient was no longer having any chest pain but will be admitted and the cardiology consult will be done. Undiagnosed new problem with uncertain prognosis? @ -No Drug Therapy requiring intensive monitoring for toxicity (Heparin, Nitro, Insulin, Cardizem)? @ -No Were any procedures done? @ -No Diagnosis/symptom? @ -EKG changes Acute, or Chronic, or Acute on Chronic? @ -Acute Uncomplicated (without systemic symptoms) or Complicated (systemic symptoms)? @ -Complicated Side effects of treatment? @ -No Exacerbation, Progression, or Severe Exacerbation? @ -No Poses a threat to life or bodily function? How? (Chest pain, [place], [place], pneumonia, PE, COPD, DKA, ARF, appy, cholecystitis, CVA, Diverticulitis, Homicidal, S uicidal, threat to staff... and all critical care pts) @ -Yes this could lead to an [place] and endorgan dysfunction Diagnosis/symptom? @ -Inflammation anastomosis Acute, or Chronic, or Acute on Chronic? @ -Acute Uncomplicated (without systemic symptoms) or Complicated (systemic symptoms)? @ -Complicated Side effects of treatment? @ -None Exacerbation, Progression, or Severe Exacerbation] @ -No Poses a threat to life or bodily function? @ -No - Lab Data Result diagrams: 07/29/24 14:30 07/29/24 14:30 Lab Results 07/29/24 07/29/24 07/29/24 Range/Units 14:30 14:30 14:30 WBC 7.4 (3.8-10.6) k/uL RBC 4.77 (3.80-5.40) m/uL Hgb 12.7 (11.4-16.0) gm/dL Hct 40.6 (34.0-46.0) % MCV 85.3 (80.0-100.0) fL MCH 26.7 (25.0-35.0) pg MCHC 31.3 (31.0-37.0) g/dL RDW 17.6 H (11.5-15.5) % Plt Count 468 H (150-450) k/uL MPV 7.6 Neutrophils % 58 % Lymphocytes % 33 % Monocytes % 4 % Eosinophils % 3 % Basophils % 0 % Neutrophils # 4.3 (1.3-7.7) k/uL Lymphocytes # 2.4 (1.0-4.8) k/uL Monocytes # 0.3 (0-1.0) k/uL Eosinophils # 0.2 (0-0.7) k/uL Basophils # 0.0 (0-0.2) k/uL Hypochromasia Moderate Anisocytosis Slight Sodium 140 (137-145) mmol/L Potassium 3.3 L (3.5-5.1) mmol/L Chloride 108 H (98-107) mmol/L Carbon Dioxide 20 L (22-30) mmol/L Anion Gap 12 mmol/L BUN 4 L (7-17) mg/dL Creatinine 0.57 (0.52-1.04) mg/dL Est GFR (CKD-EPI)AfAm >90 (>60 ml/min/1.73 sqM) Est GFR (CKD-EPI)NonAf >90 (>60 ml/min/1.73 sqM) Glucose 117 H (74-99) mg/dL Plasma Lactic Acid Sarthak 1.4 (0.7-2.0) mmol/L Calcium 9.9 (8.4-10.2) mg/dL Total Bilirubin 0.6 (0.2-1.3) mg/dL AST 51 H (14-36) U/L ALT 30 (4-34) U/L Alkaline Phosphatase 167 H (38-126) U/L Troponin I (0.000-0.034) ng/mL Total Protein 7.4 (6.3-8.2) g/dL Albumin 4.5 (3.5-5.0) g/dL Amylase 46 (30-110) U/L Lipase 34 (23-300) U/L Urine Color Urine Appearance (Clear) Urine pH (5.0-8.0) Ur Specific [place] (1.001-1.035) Urine Protein (Negative) Urine Glucose (UA) (Negative) Urine Ketones (Negative) Urine Blood (Negative) Urine Nitrite (Negative) Urine Bilirubin (Negative) Urine Urobilinogen (<2.0) mg/dL Ur Leukocyte Esterase (Negative) Urine RBC (0-5) /hpf Urine WBC (0-5) /hpf Ur Squamous Epith Cells (0-4) /hpf Urine Yeast (Budding) (None) /hpf 07/29/24 07/29/24 07/29/24 Range/Units 17:14 19:52 20:15 WBC (3.8-10.6) k/uL RBC (3.80-5.40) m/uL Hgb (11.4-16.0) gm/dL Hct (34.0-46.0) % MCV (80.0-100.0) fL MCH (25.0-35.0) pg MCHC (31.0-37.0) g/dL RDW (11.5-15.5) % Plt Count (150-450) k/uL MPV Neutrophils % % Lymphocytes % % Monocytes % % Eosinophils % % Basophils % % Neutrophils # (1.3-7.7) k/uL Lymphocytes # (1.0-4.8) k/uL Monocytes # (0-1.0) k/uL Eosinophils # (0-0.7) k/uL Basophils # (0-0.2) k/uL Hypochromasia Anisocytosis Sodium (137-145) mmol/L Potassium (3.5-5.1) mmol/L Chloride (98-107) mmol/L Carbon Dioxide (22-30) mmol/L Anion Gap mmol/L BUN (7-17) mg/dL Creatinine (0.52-1.04) mg/dL Est GFR (CKD-EPI)AfAm (>60 ml/min/1.73 sqM) Est GFR (CKD-EPI)NonAf (>60 ml/min/1.73 sqM) Glucose (74-99) mg/dL Plasma Lactic Acid Sarthak (0.7-2.0) mmol/L Calcium (8.4-10.2) mg/dL Total Bilirubin (0.2-1.3) mg/dL AST (14-36) U/L ALT (4-34) U/L Alkaline Phosphatase (38-126) U/L Troponin I 0.018 0.046 H* (0.000-0.034) ng/mL Total Protein (6.3-8.2) g/dL Albumin (3.5-5.0) g/dL Amylase (30-110) U/L Lipase (23-300) U/L Urine Color Colorless Urine Appearance Clear (Clear) Urine pH 6.5 (5.0-8.0) Ur Specific [place] >1.050 H (1.001-1.035) Urine Protein 1+ H (Negative) Urine Glucose (UA) Negative (Negative) Urine Ketones Negative (Negative) Urine Blood Negative (Negative) Urine Nitrite Negative (Negative) Urine Bilirubin Negative (Negative) Urine Urobilinogen <2.0 (<2.0) mg/dL Ur Leukocyte Esterase Negative (Negative) Urine RBC 6 H (0-5) /hpf Urine WBC 5 (0-5) /hpf Ur Squamous Epith Cells 6 H (0-4) /hpf Urine Yeast (Budding) Rare H (None) /hpf Critical Care Time Critical Care Time: Yes Total Critical Care Time: 35 Disposition Clinical Impression: Abnormal EKG, Complication of internal anastomosis Disposition: ADMITTED IP TO THIS HOSP Referrals: Kemar Jin MD [Primary Care Provider] - 1-2 days Time of Disposition: 21:11
[2024-07-29] MEDS: SODIUM CHLORIDE 0.9% 1,000 ML IV STA (14:31)
[2024-07-29] MEDS: ONDANSETRON 4 MG/2 ML VIAL IVP STA (14:32)
[2024-07-29 14:37] LABS: Anisocytosis Slight; Basophils % (A) 0 %; Eosinophils # (A) 0.2 k/uL (0-0.7); Eosinophils % (A) 3 %; HCT 40.6 % (34.0-46.0); HGB 12.7 gm/dL (11.4-16.0); Hypochromasia Moderate; Lymphocytes # (A) 2.4 k/uL (1.0-4.8); Lymphocytes % (A) 33 %; MCH 26.7 pg (25.0-35.0); MCHC 31.3 g/dL (31.0-37.0); MCV 85.3 fL (80.0-100.0); Mean Platelet Volume 7.6; Monocytes # (A) 0.3 k/uL (0-1.0); Monocytes % (A) 4 %; Neutrophils # (A) 4.3 k/uL (1.3-7.7); Neutrophils % (A) 58 %; Platelet Count 468 k/uL (150-450); RBC 4.77 m/uL (3.80-5.40); RDW 17.6 % (11.5-15.5); WBC 7.4 k/uL (3.8-10.6)
[2024-07-29 14:48] LABS: ALT 30 U/L (4-34); AST 51 U/L (14-36); African American GFR (CKD) >90 (>60 ml/min/1.73 sqM); Albumin 4.5 g/dL (3.5-5.0); Alkaline Phosphatase 167 U/L (38-126); Amylase 46 U/L (30-110); Anion Gap 12 mmol/L; Blood Urea Nitrogen 4 mg/dL (7-17); Calcium 9.9 mg/dL (8.4-10.2); Carbon Dioxide 20 mmol/L (22-30); Chloride 108 mmol/L (98-107); Glucose 117 mg/dL (74-99); Lipase 34 U/L (23-300); Non-African American GFR(CKD) >90 (>60 ml/min/1.73 sqM); Potassium 3.3 mmol/L (3.5-5.1); Sodium 140 mmol/L (137-145); Total Bilirubin 0.6 mg/dL (0.2-1.3); Total Protein 7.4 g/dL (6.3-8.2)
[2024-07-29] MEDS: HYDROmorphone 0.5 MG/0.5 ML SYRINGE IVP STA ×2 (15:35→20:00)
--- NOTE | 2024-07-29 16:49 | CT ---
EXAMINATION TYPE: CT abdomen pelvis w con DATE OF EXAM: 07/29/2024 4:38 PM COMPARISON: CT abdomen pelvis most recent from 07/15/2024 CLINICAL INDICATION: Female, 53 years old with history of abdominal pain; abdominal pain, nausea and vomiting. hx of 2 recent bowel sxs TECHNIQUE: Axial CT abdomen pelvis w con;Sagittal and coronal reformats were created on a separate w orkstation. Contrast used:100ml mL of Isovue 300 with IV Contrast, (none if empty) Oral contrast used: without Oral Contrast (none if empty) CT DLP: 1211.9 mGycm, Automated exposure control for dose reduction was used. FINDINGS: LOWER CHEST: Unremarkable ABDOMEN LIVER: Unremarkable GALLBLADDER AND BILE DUCTS: Unremarkable. PANCREAS: Unremarkable. SPLEEN: Unremarkable. ADRENAL GLANDS: Unremarkable. KIDNEYS AND URETERS: No evidence of hydronephrosis or renal calculus. The ureters are unremarkable. PELVIS BLADDER: No evidence for wall thickening or mass given limitations of exam. REPRODUCTIVE: Unremarkable. ABDOMEN & PELVIS STOMACH AND BOWEL: No evidence of bowel obstruction. Postsurgical changes to the cecum and terminal i leum with areas of suture are also identified within the small bowel in the lower abdomen. There may be some arthritic changes near thee terminal ileum near its connection with the cecum. Colon is fille d with feces and watery stool. PERITONEUM/RETROPERITONEUM: No evidence of pneumoperitoneum or free fluid. VASCULATURE: No evidence of aortic aneurysm. MUSCULOSKELETAL: No acute osseous abnormalities LYMPH NODES: No gross evidence for lymphadenopathy. SOFT TISSUE/ABDOMINAL WALL: Postsurgical changes anterior abdominal wall. IMPRESSION: Postsurgical changes to the small bowel with some inflammation possibly postsurgical change around th e terminal ileum years taken to the cecum. There is stool and watery stool within the large bowel. No definitive evidence for small bowel obstruction. Findings could be confirmed with dedicated small ting wel follow-through. No other acute abdominal process visualized. [facility], , 07/29/2024 4:47 PM
[2024-07-29] MEDS: NITROGLYCERIN SL TABS 0.4 MG TAB SUBLINGUAL STA (17:19)
[2024-07-29] MEDS: LORazepam 2 MG/ML INJ IV STA (17:43)
[2024-07-29 20:31] LABS: Appearance,Urine Clear (Clear); Bilirubin,Urine Negative (Negative); Blood,Urine Negative (Negative); Budding Yeast,Urine Rare /hpf; Color,Urine Colorless; Glucose,Urine (UA) Negative (Negative); Ketones,Urine Negative (Negative); Leukocyte Esterase,Urine Negative (Negative); Nitrite,Urine Negative (Negative); PH, Urine 6.5 (5.0-8.0); Protein,Urine 1+ (Negative); RBC,Urine 6 /hpf (0-5); Squamous Epithelial Cell,Urine 6 /hpf (0-4); Urobilinogen,Urine <2.0 mg/dL (<2.0); WBC,Urine 5 /hpf (0-5)
[2024-07-29 20:52] LABS: Specific Gravity,Urine >1.050 (1.001-1.035)
[2024-07-29] MEDS: POTASSIUM CHLORIDE 20 MEQ in WATER FOR INJECTION 1 100ML.BAG IVPB STA (21:00)
[2024-07-29] MEDS: ASPIRIN 81 MG PO STA (21:19)
[2024-07-29] MEDS: HEPARIN SODIUM 1,000 UN/ML (10ML VL) IV ONE (21:20)
[2024-07-29] MEDS: HEPARIN SOD,PORK IN 0.45% NACL 25,000 UNIT in 0.45% NACL 1 250ML.BAG IV SCH (21:22)
[2024-07-29] MEDS: ONDANSETRON 4 MG/2 ML VIAL IVP PRN (23:39)
[2024-07-29] MEDS: HYDROmorphone 1 MG/ML 1 ML SYRINGE IVP PRN (23:42)
[2024-07-29] MEDS: NITROGLYCERIN OINT 1 INCH/GM PACKET TOPICAL SCH (23:43)
[2024-07-30] MEDS: HEPARIN SODIUM 1,000 UN/ML (10ML VL) IV PRN (05:31)
[2024-07-30] MEDS: NITROGLYCERIN SL TABS 0.4 MG TAB SUBLINGUAL PRN (07:46)
[2024-07-30] MEDS ORDERED: HYDROmorphone 2 MG/ML 1 ML SYRINGE IVP PRN (08:02)
[2024-07-30] MEDS: ASPIRIN 325 MG TAB PO SCH (08:33)
[2024-07-30 09:12] LABS: Chol/HDL Ratio 4.74 Ratio; LDL Cholesterol,Calculated 99.5 mg/dL (0.0-131.0)
[2024-07-30] MEDS ORDERED: ALBUTEROL NEBULIZED 2.5 MG/3 ML INHALATION PRN (10:37)
[2024-07-30] MEDS: PANTOPRAZOLE 40 MG TABLET PO SCH (10:49)
[2024-07-30] MEDS: KETOROLAC 15 MG/ML 1 ML VIAL IVP STA (10:58)
--- NOTE | 2024-07-30 10:58 | P.CRDCN ---
History of Present Illness Consult date: 07/30/24 History of present illness: HISTORY OF PRESENTING ILLNESS 53-year-old female with past medical history of CAD status post CABG with vein graft to LAD and residual disease in LCx and RCA which is nonobstructive. Her last cath was in 2021. She also has history of hypertension dyslipidemia type 2 diabetes. 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 In April patient had 3 admissions to our hospital with substernal chest pressure symptoms. At that time she had an echocardiogram which showed an EF of 55 to 60%, VQ scan with low probability of pulmonary embolism, ECG with sinus tachycardia with nonspecific ST abnormalities. Her last cath was in 2021 which showed stable CAD with patent vein graft to LAD, [employer] SAL[employer]IST of vein graft to LCx but stent in proximal LCx which were patent, RCA had mild disease. During that admission she had a dobutamine echo stress test. At 80% of maximal heart rate she did not have any stress-induced regional wall motion abnormality. She had a prolonged hospital stay in June and was discharged last week. She was found to have diverticulitis and was found to have bowel perforation. She ended up getting bowel resection with end-to-end anastomosis. She required 2 surgeries for this. Last surgery was in June 2024. Since surgery patient complained of abdominal pain and epigastric burning sensations. This time she presents to the hospital 1 week after her recent discharge with substernal chest pressure and abdominal pain symptoms. Her admission ECG showed sinus rhythm with nonspecific ST changes. Repeat ECG showed sinus tachycardia with heart rate in 130s with diffuse ST depressions in anterolateral leads. This time she presents to the hospital because of substernal chest pressure and abdominal pain symptoms. Her admission troponin was negative, repeat troponins were mildly elevated at 0.04, 0.06. She had abdominal CT which did not report any major small bowel obstruction. It showed some postop changes. REVIEW OF SYSTEMS 14 point review of system is negative except what is mentioned above in HPI. PHYSICAL EXAMINATION Vital signs reviewed. Head: Normocephalic. Eyes: Sclerae nonicteric. Neck: Brisk carotid upstroke, no jugular venous distention. Lungs: Clear to auscultation. Heart: Regular rate and rhythm, S1-S2, no S3, no murmur or rub. Abdomen: Soft , tender to touch in lower abdomen. Extremities: No edema, intact distal pulses. Neuro: Alert, oritented, no focal deficits. Detailed neuro exam was not performed. ASSESSMENT Type II NSTEMI Chest pain and abdominal pain Prior history of stable CAD with occluded vein graft to LCx, mild diffuse disease in LCx and RCA, patent vein graft to LAD. Recent extensive hospital stay because of diverticulitis with bowel perforation status post resection and end-to-end anastomosis Type 2 diabetes Essential hypertension COPD PLAN Continue aspirin, Plavix, atorvastatin. Continue metoprolol 12.5 mg twice daily. Ranexa and Farxiga at this time until patient's abdominal pain resolved. Continue IV heparin drip for 48 hours Give her a trial of Bentyl and Toradol. Continue Protonix. Obtain limited echocardiogram to look for LVEF and wall motion to to further stratify. If abnormal, consider heart catheterization. Await recommendations from primary team and surgical team. Right lower chest pain and upper abdominal pain seems to be GI in origin, but due to mild elevated troponin would like to continue to monitor. Jhonny Thompson MD, FACC, RPVI Thank you for allowing [facility] to participate in this patient's care. Feel free to reach out in case of any followup questions. Past Medical History Past Medical History: Asthma, Coronary Artery Disease (CAD), COPD, Diabetes M ellitus, GERD/Reflux, Hypertension, Myocardial Infarction ([place]), Osteoarthritis (OA) Additional Past Medical History / Comment(s): DDD, scoliosis, [place] x4 Last Myocardial Infarction Date:: 2011 History of Any Multi-Drug Resistant Organisms: None Reported Past Surgical History: Appendectomy, Bowel Resection, Coronary Bypass/CABG, Heart Catheterization With Stent Additional Past Surgical History / Comment(s): seven stents, here for gastroenteritis with abcess (removal 06/21/24), per pt 2 ABD procedures at the same area, Bowel resection with appendectomy 07/05/2024 Past Anesthesia/Blood Transfusion Reactions: No Reported Reaction Date of Last Stent Placement:: 11/2018 Past Psychological History: Anxiety, Bipolar Smoking Status: Current every day smoker Past Alcohol Use History: None Reported Past Drug Use History: Marijuana - Past Family History Mother Family Medical History: Cancer Additional Family Medical History / Comment(s): Ovarian cancer Father Family Medical History: Congestive Heart Failure (CHF) Fmily Family Medical History: No Reported History Medications and Allergies Home Medications Medication Instructions Recorded Confirmed Type Atorvastatin [Lipitor] 80 mg PO DAILY 07/08/20 07/29/24 History Ranolazine [Ranexa] 1,000 mg PO BID 11/13/21 07/29/24 History Albuterol Inhaler [Ventolin Hfa 2 puff INHALATION RT-QID PRN 03/27/23 07/29/24 History Inhaler] Aspirin EC [Ecotrin Low Dose] 81 mg PO DAILY 03/27/23 07/29/24 History Budesonide/Formoterol Fumarate 2 puff INHALATION RT-BID 03/27/23 07/29/24 History [Symbicort 160-4.5 Mcg Inhaler] Clopidogrel [Plavix] 75 mg PO DAILY 03/27/23 07/29/24 History Nitroglycerin Sl Tabs [Nitrostat] 0.4 mg SL Q5M PRN 03/27/23 07/29/24 History Omeprazole 40 mg PO BID 03/27/23 07/29/24 History Pregabalin [Lyrica] 150 mg PO TID 03/27/23 07/29/24 History amLODIPine [Norvasc] 10 mg PO DAILY 03/27/23 07/29/24 History metFORMIN HCL 1,000 mg PO BID 03/27/23 07/29/24 History rOPINIRole HCL [Requip] 1 mg PO HS 03/27/23 07/29/24 History ALPRAZolam [Xanax] 0.5 mg PO BID PRN 06/22/23 07/29/24 History Dapagliflozin Propanediol [Farxiga] 5 mg PO DAILY 03/16/24 07/29/24 History Dulaglutide [Trulicity] 3 mg SQ WE 03/16/24 07/29/24 History Insulin Lispro [humaLOG Kwikpen] See Protocol SQ AC-TID 03/16/24 07/29/24 History Ipratropium-Albuterol Nebulize 3 ml INHALATION RT-TID 03/16/24 07/29/24 History [Duoneb 0.5 mg-3 mg/3 ml Soln] Isosorbide Mononitrate ER [Imdur] 30 mg PO DAILY 03/16/24 07/29/24 History Mag Hydrox/Al Hydrox/Simeth 30 ml PO QID PRN 2 Days #180 ml 05/22/24 07/29/24 Rx [Maalox] Spiriva Respimat 1.25mcg/Actuation 2 puff INHALATION RT-DAILY 05/24/24 07/29/24 History Mist Albuterol Nebulized [Ventolin 2.5 mg INHALATION RT-Q6H PRN 05/31/24 07/29/24 History Nebulized] Ondansetron Odt [Zofran ODT] 4 mg PO Q8HR PRN 05/31/24 07/29/24 History lisinopriL [Zestril] 10 mg PO DAILY 05/31/24 07/29/24 History Cholestyramine (with Sugar) 4 gm PO BID #60 packet 06/03/24 07/29/24 Rx [Questran Packet] Metoprolol Tartrate [Lopressor] 12.5 mg PO BID #60 tab 07/02/24 07/29/24 Rx HYDROcodone/APAP 5-325MG [[place] 1 tab PO Q6HR PRN 3 Days #12 tab 07/26/24 07/29/24 Rx 5-325] Allergies Allergy/AdvReac Type Severity Reaction Status Date / Time No Known Allergies Allergy Verified 07/29/24 15:20 Physical Exam Vitals: Vital Signs Temp Pulse Resp BP Pulse Ox 07/30/24 10:38 98.2 F 87 18 132/96 98 07/30/24 08:40 98.6 F 103 H 20 107/76 96 07/30/24 08:00 121/85 07/30/24 07:29 97.5 F L 92 24 110/82 96 07/30/24 05:00 85 21 101/66 95 07/30/24 03:00 88 18 114/80 97 07/30/24 01:00 93 21 97/82 96 07/29/24 23:30 85 20 133/94 98 07/29/24 21:36 90 16 116/98 98 07/29/24 18:44 111 H 16 108/86 99 07/29/24 16:42 134 H 30 H 132/87 100 07/29/24 13:51 98.1 F 104 H 16 181/116 96 Intake and Output 07/29/24 07/30/24 07/30/24 22:59 06:59 14:59 Intake Total 77.788 Balance 77.788 Intake: Intake, IV Titration 77.788 Amount Heparin Sod,Pork in 0.45% 77.788 NaCl 25,000 unit In 0.45 % NaCl 1 250ml.bag @ 12 UNITS/KG/HR 9.525 mls/hr IV .Q24H [facility] Rx#: [id number] Results 07/29/24 14:30 07/29/24 14:30 Cardiac Enzymes 07/29/24 07/29/24 07/29/24 Range/Units 14:30 17:14 20:15 AST 51 H (14-36) U/L Troponin I 0.018 0.046 H* (0.000-0.034) ng/mL 07/29/24 Range/Units 23:14 AST (14-36) U/L Troponin I 0.064 H* (0.000-0.034) ng/mL Coagulation 07/30/24 Range/Units 03:41 APTT 22.8 (22.0-30.0) sec Lipids 07/30/24 Range/Units 03:41 Triglycerides 193.00 H (0.00-149.00) mg/dL Cholesterol 175.00 (0.00-200.00) mg/dL HDL Cholesterol 36.90 L (40.00-60.00) mg/dL Cholesterol/HDL Ratio 4.74 Ratio CBC 07/29/24 Range/Units 14:30 WBC 7.4 (3.8-10.6) k/uL RBC 4.77 (3.80-5.40) m/uL Hgb 12.7 (11.4-16.0) gm/dL Hct 40.6 (34.0-46.0) % Plt Count 468 H (150-450) k/uL Comprehensive Metabolic Panel 07/29/24 Range/Units 14:30 Sodium 140 (137-145) mmol/L Potassium 3.3 L (3.5-5.1) mmol/L Chloride 108 H (98-107) mmol/L Carbon Dioxide 20 L (22-30) mmol/L BUN 4 L (7-17) mg/dL Creatinine 0.57 (0.52-1.04) mg/dL Glucose 117 H (74-99) mg/dL Calcium 9.9 (8.4-10.2) mg/dL AST 51 H (14-36) U/L ALT 30 (4-34) U/L Alkaline Phosphatase 167 H (38-126) U/L Total Protein 7.4 (6.3-8.2) g/dL Albumin 4.5 (3.5-5.0) g/dL Current Medications Generic Name Dose Route Start Last Admin Trade Name Freq PRN Reason Stop Dose Admin Albuterol Sulfate 2.5 mg 07/30/24 10:37 Albuterol Nebulized 2.5 Mg/3 Ml INHALATION RT-Q6H PRN Shortness Of Breath Albuterol/Ipratropium 3 ml 07/30/24 13:00 Ipratropium-Albuterol 3 Ml Neb INHALATION RT-TID [facility] Alprazolam 0.5 mg 07/30/24 10:37 Alprazolam 0.5 Mg Tab PO BID PRN Anxiety Aspirin 81 mg 07/31/24 09:00 Aspirin 81 Mg PO DAILY [facility] Atorvastatin Calcium 80 mg 07/31/24 09:00 Atorvastatin 80 Mg Tab PO DAILY [facility] Budesonide/Formoterol Fumarate 2 puff 07/30/24 20:00 Symbicort 160-4.5 Mcg Inhaler INHALATION RT-BID [facility] Clopidogrel Bisulfate 75 mg 07/31/24 09:00 Clopidogrel 75 Mg Tab PO DAILY [facility] Heparin Sodium (Porcine) 0 unit 07/30/24 05:25 07/30/24 05:31 Heparin Sodium 1,000 Un/Ml (10ml Vl) IV 3,968.95 unit PER PROTOCOL PRN Administration Low PTT Protocol Hydromorphone HCl 1 mg 07/30/24 08:02 Hydromorphone 2 Mg/Ml 1 Ml Syringe IVP Q6HR PRN Pain Heparin Sodium/Sodium Chloride 250 mls @ 9.525 mls/hr 07/29/24 21:00 07/30/24 05:32 25,000 unit/ Sodium Chloride IV 15 units/kg/hr .Q24H AMANDA 11.907 mls/hr Titration Protocol 12 UNITS/KG/HR Isosorbide Mononitrate 30 mg 07/31/24 09:00 Isosorbide Mononitrate Er 30 Mg Tab.Er.24h PO DAILY [facility] Metoprolol Tartrate 12.5 mg 07/30/24 21:00 Metoprolol Tartrate 12.5 Mg Tab PO BID [facility] Nitroglycerin 0.4 mg 07/29/24 21:11 07/30/24 08:20 Nitroglycerin Sl Tabs 0.4 Mg Tab SUBLINGUAL 0.4 mg Q5M PRN Administration Chest Pain Nitroglycerin 1 inch 07/30/24 00:00 07/30/24 05:48 Nitroglycerin Oint 1 Inch/Gm Packet TOPICAL 1 inch Q6HR AMANDA Administration Non-Formulary Medication 3 mg 07/31/24 09:00 Dulaglutide [Trulicity] SQ We@0900 [facility] Ondansetron HCl 4 mg 07/29/24 23:20 07/30/24 05:48 Ondansetron 4 Mg/2 Ml Vial IVP 4 mg Q6HR PRN Administration Nausea And Vomiting Pantoprazole Sodium 40 mg 07/30/24 10:45 07/30/24 10:49 Pantoprazole 40 Mg Tablet PO 40 mg BID AMANDA Administration Ropinirole HCl 1 mg 07/30/24 21:00 Ropinirole Hcl 1 Mg Tab PO HS [facility] Intake and Output 07/29/24 07/30/24 07/30/24 22:59 06:59 14:59 Intake Total 77.788 Balance 77.788 Intake: Intake, IV Titration 77.788 Amount Heparin Sod,Pork in 0.45% 77.788 NaCl 25,000 unit In 0.45 % NaCl 1 250ml.bag @ 12 UNITS/KG/HR 9.525 mls/hr IV .Q24H [facility] Rx#: [id number] 07/29/24 14:30 07/29/24 14:30
[2024-07-30] MEDS: DICYCLOMINE 20 MG TAB PO STA (11:05)
[2024-07-30] MEDS: HYDROmorphone 2 MG/ML 1 ML SYRINGE IVP PRN (12:23)
[2024-07-30] MEDS: IPRATROPIUM-ALBUTEROL 3 ML NEB INHALATION SCH (14:09)
--- NOTE | 2024-07-30 15:52 | P.GSCN ---
History of Present Illness Consult date: 07/30/24 History of present illness: CHIEF COMPLAINT: Abdominal pain with vomiting HISTORY OF PRESENT ILLNESS: This is a 53-year-old female who presented with abdominal pain with nausea and vomiting. Patient reports that she had been feeling okay and then on Monday after eating oatmeal she started to have increased abdominal pain in the epigastric area and left lower abdomen. She had nausea and then vomiting. Later on she did try p.o. and could not keep that down either. The emesis was mostly bile in color. She reports having bowel movements but they have been hard. She called Dr. Dubois who she reports recommended a suppository. Patient did have bowel movement after the suppository. But reports she continued to have abdominal pain. She called the ambulance and came in for further evaluation. She reports that the end of getting the CAT scan of the abdomen done patient started having chest pain and shortness of breath. She had elevated troponin and also was tachycardic and elevated blood pressure. Cardiology has been into evaluate her and started her on IV heparin. They have an echo ordered and depending on those results may consider a heart catheterization. Patient has been able to eat a regular diet in the ER. She does have a prior cardiac history with coronary artery disease and bypass surgery and cardiac stents. Patient is status post open ileocecectomy for colitis with intramural abscess on 06/14/2024 and on 06/22/2024 she was taken back to the OR for exploratory laparotomy with lysis of adhesions and small bowel resection x 2 and proximal right colon resection for small bowel obstruction secondary to adhesions and inflammation. Patient has had prior hospitalization for ileus in June as well as a seroma. There is no fluid col lection noted on this CAT scan. And patient reports that she has made the changes to the high fiber diet but continues to have abdominal pain. Patient's white count is normal. She is afebrile. PAST MEDICAL HISTORY: See below PAST SURGICAL HISTORY: See below MEDICATIONS: See below ALLERGIES: See below SOCIAL HISTORY: No illicit drug use. REVIEW OF SYSTEMS: CONSTITUTIONAL: Denies fever or chills. HEENT: Denies blurred vision, vision changes, or eye pain. Denies hemoptysis CARDIOVASCULAR: Denies chest pain or pressure. RESPIRATORY: No shortness of breath. GASTROINTESTINAL: See HPI for pertinent findings HEMATOLOGIC: Denies bleeding disorders. GENITOURINARY: Denies any blood in urine or increased urinary frequency. SKIN: Denies pruitis. Denies rash. PHYSICAL EXAM: VITAL SIGNS: Reviewed GENERAL: Well-developed in no acute distress. HEENT: No sclera icterus. Extraocular movements grossly intact. Moist buccal mucosa. Head is atraumatic, normocephalic. No nasal drainage. ABDOMEN: Soft. Nondistended. Tenderness epigastric area and left lower quadrant of the abdomen. Midline incision site is clean dry and intact. No drainage. Mild tenderness with palpation. NEUROLOGIC: Alert and oriented. Cranial nerves II through XII grossly intact. LABORATORY DATA: WBC 7.4 Hgb 12.7 platelets 468 Sodium 140 potassium is 3.3 creatinine 0.57 Lactic acid 1.4 total bilirubin 0.6 AST 51 ALT 30 alk phos 167 Elevated troponins Lipase 34 IMAGING: CT scan abdomen pelvis reports postsurgical changes to the small bowel with some inflammation possibly postsurgical change around the terminal ileum. There is stool and watery stool within the large bowel. No definitive evidence of small bowel obstruction. Findings could be confirmed with a dedicated small bowel follow-through. No acute abdominal process visualized. ASSESSMENT: 1. Abdominal pain with nausea and vomiting 2. Constipation 3. CAT scan findings with changes to the small bowel with some inflammation l ikely postsurgical around the terminal ileum. Doubt acute infection. Patient has no elevation in white count and is afebrile 4. Hypokalemia PLAN: -Continue regular diet -Recommended a good bowel regimen. Start with stool softener BID. -Okay to continue cardiac workup from surgical standpoint Physician Manager Wound note has been reviewed by physician. Signing provider agrees with the documented findings, assessment, and plan of care. Past Medical History Past Medical History: Asthma, Coronary Artery Disease (CAD), COPD, Diabetes Mellitus, GERD/Reflux, Hypertension, Myocardial Infarction ([place]), Osteoarthritis (OA) Additional Past Medical History / Comment(s): DDD, scoliosis, [place] x4 Last Myocardial Infarction Date:: 2011 History of Any Multi-Drug Resistant Organisms: None Reported Past Surgical History: Appendectomy, Bowel Resection, Coronary Bypass/CABG, Heart Catheterization With Stent Additional Past Surgical History / Comment(s): seven stents, here for gastroenteritis with abcess (removal 06/21/24), per pt 2 ABD procedures at the same area, Bowel resection with appendectomy 07/05/2024 Past Anesthesia/Blood Transfusion Reactions: No Reported Reaction Date of Last Stent Placement:: 11/2018 Past Psychological History: Anxiety, Bipolar Smoking Status: Current every day smoker Past Alcohol Use History: None Reported Past Drug Use History: Marijuana - Past Family History Mother Family Medical History: Cancer Additional Family Medical History / Comment(s): Ovarian cancer Father Family Medical History: Congestive Heart Failure (CHF) Fmily Family Medical History: No Reported History Medications and Allergies Home Medications Medication Instructions Recorded Confirmed Type Atorvastatin [Lipitor] 80 mg PO DAILY 07/08/20 07/29/24 History Ranolazine [Ranexa] 1,000 mg PO BID 11/13/21 07/29/24 History Albuterol Inhaler [Ventolin Hfa 2 puff INHALATION RT-QID PRN 03/27/23 07/29/24 History Inhaler] Aspirin EC [Ecotrin Low Dose] 81 mg PO DAILY 03/27/23 07/29/24 History Budesonide/Formoterol Fumarate 2 puff INHALATION RT-BID 03/27/23 07/29/24 History [Symbicort 160-4.5 Mcg Inhaler] Clopidogrel [Plavix] 75 mg PO DAILY 03/27/23 07/29/24 History Nitroglycerin Sl Tabs [Nitrostat] 0.4 mg SL Q5M PRN 03/27/23 07/29/24 History Omeprazole 40 mg PO BID 03/27/23 07/29/24 History Pregabalin [Lyrica] 150 mg PO TID 03/27/23 07/29/24 History amLODIPine [Norvasc] 10 mg PO DAILY 03/27/23 07/29/24 History metFORMIN HCL 1,000 mg PO BID 03/27/23 07/29/24 History rOPINIRole HCL [Requip] 1 mg PO HS 03/27/23 07/29/24 History ALPRAZolam [Xanax] 0.5 mg PO BID PRN 06/22/23 07/29/24 History Dapagliflozin Propanediol [Farxiga] 5 mg PO DAILY 03/16/24 07/29/24 History Dulaglutide [Trulicity] 3 mg SQ WE 03/16/24 07/29/24 History Insulin Lispro [humaLOG Kwikpen] See Protocol SQ AC-TID 03/16/24 07/29/24 History Ipratropium-Albuterol Nebulize 3 ml INHALATION RT-TID 03/16/24 07/29/24 History [Duoneb 0.5 mg-3 mg/3 ml Soln] Isosorbide Mononitrate ER [Imdur] 30 mg PO DAILY 03/16/24 07/29/24 History Mag Hydrox/Al Hydrox/Simeth 30 ml PO QID PRN 2 Days #180 ml 05/22/24 07/29/24 Rx [Maalox] Spiriva Respimat 1.25mcg/Actuation 2 puff INHALATION RT-DAILY 05/24/24 07/29/24 History Mist Albuterol Nebulized [Ventolin 2.5 mg INHALATION RT-Q6H PRN 05/31/24 07/29/24 History Nebulized] Ondansetron Odt [Zofran ODT] 4 mg PO Q8HR PRN 05/31/24 07/29/24 History lisinopriL [Zestril] 10 mg PO DAILY 05/31/24 07/29/24 History Cholestyramine (with Sugar) 4 gm PO BID #60 packet 06/03/24 07/29/24 Rx [Questran Packet] Metoprolol Tartrate [Lopressor] 12.5 mg PO BID #60 tab 07/02/24 07/29/24 Rx HYDROcodone/APAP 5-325MG [[place] 1 tab PO Q6HR PRN 3 Days #12 tab 07/26/24 07/29/24 Rx 5-325] Allergies Allergy/AdvReac Type Severity Reaction Status Date / Time No Known Allergies Allergy Verified 07/29/24 15:20 Surgical - Exam Vital Signs Temp Pulse Resp BP Pulse Ox 98.1 F 104 H 16 181/116 96 07/29/24 13:51 07/29/24 13:51 07/29/24 13:51 07/29/24 13:51 07/29/24 13:51 Results - Labs 07/29/24 14:30 07/29/24 14:30 Abnormal Lab Results - Last 24 Hours (Table) 07/29/24 07/29/24 07/29/24 Range/Units 19:52 20:15 23:14 APTT (22.0-30.0) sec Troponin I 0.046 H* 0.064 H* (0.000-0.034) ng/mL Triglycerides (0.00-149.00) mg/dL HDL Cholesterol (40.00-60.00) mg/dL Ur Specific [place] >1.050 H (1.001-1.035) Urine Protein 1+ H (Negative) Urine RBC 6 H (0-5) /hpf Ur Squamous Epith Cells 6 H (0-4) /hpf Urine Yeast (Budding) Rare H (None) /hpf 07/30/24 07/30/24 Range/Units 03:41 12:12 APTT 123.6 H* (22.0-30.0) sec Troponin I (0.000-0.034) ng/mL Triglycerides 193.00 H (0.00-149.00) mg/dL HDL Cholesterol 36.90 L (40.00-60.00) mg/dL Ur Specific [place] (1.001-1.035) Urine Protein (Negative) Urine RBC (0-5) /hpf Ur Squamous Epith Cells (0-4) /hpf Urine Yeast (Budding) (None) /hpf Diabetes panel 07/30/24 Range/Units 03:41 Triglycerides 193.00 H (0.00-149.00) mg/dL HDL Cholesterol 36.90 L (40.00-60.00) mg/dL
--- NOTE | 2024-07-30 16:57 | P.HPIM ---
History of Present Illness H&P Date: 07/30/24 Chief Complaint: Abdominal pain Patient is a 53-year-old female who was just discharged from the hospital on 03/25 for epigastric pain and ideas presented to the ED yesterday with abdominal pain nausea, and vomiting. Patient has an extensive history and the patient has hospitalization for prolonged period of time. She is status post open ileocecectomy for colitis with intramural abscess on 06/14/2024 and on 06/22/2024 she was taken back to the OR for exploratory laparotomy with lysis of adhesions and small bowel resection x 2 and proximal right colon resection for small bowel obstruction secondary to adhesions and inflammation. Patient has had prior hospitalization for ileus in June. After the surgery the patient had switched to high fiber diet. Today patient mentions she developed an upset stomach after which she started vomiting. She had 4-5 episodes of vomiting. She called Dr. Dubois who advised her to take some stool softeners, she did take the stool soft ener and had a bowel movement but after that her abdominal pain got worse. Abdominal pain is mostly in the left lower quadrant and in the epigastric region. At this point EMS was called and patient arrived to the ER. While in the ER she started having chest pain that was sharp in nature, 10 out of 10 in severity and was radiating down her left arm. She notes the pain resolved after taking 3 nitro's. She mentions that she has had 4 heart attacks in the past but her chest pain did not resolve during those times even with 4-5 nitroglycerin. She also mentions experiencing chills. Denies fever, diarrhea, hematuria, hematochezia, melena. ED documentation reviewed and case discussed with ED provider. In the ED she was treated with a normal saline bolus, Dilaudid, dicyclomine, Ativan, nitroglycerin sublingual tablets and aspirin 324 mg. Vitals: T 98.1 F, P 104 bpm, RR 16, BP 181/116, O2 sat 96% on room air CT abdomen pelvis: Postsurgical changes to the small bowel with some inflammat ion. There is stool and watery stool within the large bowel. No definitive evidence for small bowel obstruction. No acute abdominal process visualized. EKG: Sinus rhythm with nonspecific ST changes. Repeat EKG: Sinus tachycardia with diffuse ST depressions in anterolateral leads Labs: WBC 7.4, hemoglobin 12.7, potassium 3.3, BUN 4, AST 51, ALP 167, APTT 22.8->123.6 Troponin: 0.018, 0.046, 0.064 UA:> 1.050 specific gravity, 1+ protein, 6 RBC, 6 squamous epithelial cells, rare budding yeast Lipid panel: Triglycerides 193, HDL 36.9 Review of systems: Pertinent positives and negatives as discussed in HPI, a complete review of systems was performed and all other systems are negative. PMH: Asthma, CAD, COPD, insulin-dependent diabetes mellitus, GERD, hypertension, myocardial infarction appendicectomy, bowel resection, CABG, 7 stents placed in the heart, PSH: Gastroenteritis with abscess removal Allergies: No known drug allergies Social history: Tobacco: Current everyday smoker Alcohol: Quit drinking 3 years ago Recreational drugs: Marijuana 1 joint a day Travel: No recent travel history Sick contacts: None Physical examination: Vital signs reviewed General: nontoxic, no distress, appears at stated age Derm: warm, dry, intact Head: atraumatic, normocephalic, symmetric Eyes: EOMI, anicteric sclera Mouth: no lip lesion, mucus membranes moist Cardiovascular: S1 S2 reg, no murmur Lungs: CTA bilateral, no rhonchi, no rales, no accessory muscle use Abdominal: soft, tender to palpataion in LLQ Extremities: No cyanosis, clubbing, or pedal edema. Neuro: Alert, Oriented, Gross neurological examination did not reveal any focal deficits. Psych: well appearing, appropriate affect Assessment/Plan: Patient is a 53-year-old female with past medical history of IVDU sick ectomy for colitis with intramural abscess, lysis of adhesions and small bowel resection, LA and 7 stents placement who presented to the ED today for abdominal pain, nausea, vomiting. She subsequently developed sharp chest pain radiating to the left arm. She has been admitted for further workup and management. #. Type II NSTEMI #. Prior history of stable CAD Dobutamine stress echo done on 05/29/24 showed negative stress test by EKG criteria and negative dobutamine stress test echocardiogram without evidence of ischemia at 80% of the predicted maximal heart rate Elevated troponin 0.018,0.046,0.064 Continue Aspirin 81 mg p.o. daily, atorvastatin 80 mg p.o. daily, clopidogrel 75 mg p.o. daily, metoprolol 12.5 mg p.o. twice daily, Isosorbide mononitrate 30 mg PO daily Repeat troponin x1 Nitroglycerin SL tabs 0.4 mg Q5M PRN Telemetry monitoring Cardiology following #. Abdominal pain, s/p ileocecectomy and lysis of adhesions #. Constipation Colace 1000mg PO BID started today Surgery is following #. History of COPD on home oxygen 2L Continue Nebulised albuterol, Symbicort, Duoneb, Continue supplemental oxygen,currently on 2L via nasal cannula #. Hypokalemia K 3.3 Potassium chloride 20 meq given in the ED Repeat BMP #.Pain management Dilaudid 1mg IVP Q4HR PRN #. Anxiety Xanax 0.5 mg PO BID PRN F: E:K repleted in the ED N:Heart healthy diet A:Ambulatory DVT prophylaxis: Heparin GI prophylaxis: Protonix 40 mg p.o. twice daily The patient is admitted with an anticipated less than 2 midnight stay for evaluation of abdominal pain and chest pain. CODE STATUS: Full Code Discussed with: Patient Anticipated discharge place: Home Past Medical History Past Medical History: Asthma, Coronary Artery Disease (CAD), COPD, Diabetes Mellitus, GERD/Reflux, Hypertension, Myocardial Infarction (LA), Osteoarthritis (OA) Additional Past Medical History / Comment(s): DDD, scoliosis, LA x4 Last Myocardial Infarction Date:: 2011 History of Any Multi-Drug Resistant Organisms: None Reported Past Surgical History: Appendectomy, Bowel Resection, Coronary Bypass/CABG, Heart Catheterization With Stent Additional Past Surgical History / Comment(s): seven stents, here for gastroenteritis with abcess (removal 06/21/24), per pt 2 ABD procedures at the same area, Bowel resection with appendectomy 07/05/2024 Past Anesthesia/Blood Transfusion Reactions: No Reported Reaction Date of Last Stent Placement:: 11/2018 Past Psychological History: Anxiety, Bipolar Smoking Status: Current every day smoker Past Alcohol Use History: None Reported Past Drug Use History: Marijuana - Past Family History Mother Family Medical History: Cancer Additional Family Medical History / Comment(s): Ovarian cancer Father Family Medical History: Congestive Heart Failure (CHF) Fmily Family Medical History: No Reported History Medications and Allergies Home Medications Medication Instructions Recorded Confirmed Type Atorvastatin [Lipitor] 80 mg PO DAILY 07/08/20 07/29/24 History Ranolazine [Ranexa] 1,000 mg PO BID 11/13/21 07/29/24 History Albuterol Inhaler [Ventolin Hfa 2 puff INHALATION RT-QID PRN 03/27/23 07/29/24 History Inhaler] Aspirin EC [Ecotrin Low Dose] 81 mg PO DAILY 03/27/23 07/29/24 History Budesonide/Formoterol Fumarate 2 puff INHALATION RT-BID 03/27/23 07/29/24 History [Symbicort 160-4.5 Mcg Inhaler] Clopidogrel [Plavix] 75 mg PO DAILY 03/27/23 07/29/24 History Nitroglycerin Sl Tabs [Nitrostat] 0.4 mg SL Q5M PRN 03/27/23 07/29/24 History Omeprazole 40 mg PO BID 03/27/23 07/29/24 History Pregabalin [Lyrica] 150 mg PO TID 03/27/23 07/29/24 History amLODIPine [Norvasc] 10 mg PO DAILY 03/27/23 07/29/24 History metFORMIN HCL 1,000 mg PO BID 03/27/23 07/29/24 History rOPINIRole HCL [Requip] 1 mg PO HS 03/27/23 07/29/24 History ALPRAZolam [Xanax] 0.5 mg PO BID PRN 06/22/23 07/29/24 History Dapagliflozin Propanediol [Farxiga] 5 mg PO DAILY 03/16/24 07/29/24 History Dulaglutide [Trulicity] 3 mg SQ WE 03/16/24 07/29/24 History Insulin Lispro [humaLOG Kwikpen] See Protocol SQ AC-TID 03/16/24 07/29/24 History Ipratropium-Albuterol Nebulize 3 ml INHALATION RT-TID 03/16/24 07/29/24 History [Duoneb 0.5 mg-3 mg/3 ml Soln] Isosorbide Mononitrate ER [Imdur] 30 mg PO DAILY 03/16/24 07/29/24 History Mag Hydrox/Al Hydrox/Simeth 30 ml PO QID PRN 2 Days #180 ml 05/22/24 07/29/24 Rx [Maalox] Spiriva Respimat 1.25mcg/Actuation 2 puff INHALATION RT-DAILY 05/24/24 07/29/24 History Mist Albuterol Nebulized [Ventolin 2.5 mg INHALATION RT-Q6H PRN 05/31/24 07/29/24 History Nebulized] Ondansetron Odt [Zofran ODT] 4 mg PO Q8HR PRN 05/31/24 07/29/24 History lisinopriL [Zestril] 10 mg PO DAILY 05/31/24 07/29/24 History Cholestyramine (with Sugar) 4 gm PO BID #60 packet 06/03/24 07/29/24 Rx [Questran Packet] Metoprolol Tartrate [Lopressor] 12.5 mg PO BID #60 tab 07/02/24 07/29/24 Rx HYDROcodone/APAP 5-325MG [[place] 1 tab PO Q6HR PRN 3 Days #12 tab 07/26/24 Rx 5-325] Allergies Allergy/AdvReac Type Severity Reaction Status Date / Time No Known Allergies Allergy Verified 07/29/24 15:20 Physical Exam Vitals: Vital Signs Temp Pulse Resp BP Pulse Ox 07/30/24 14:22 79 18 117/78 97 07/30/24 14:19 90 07/30/24 14:10 94 07/30/24 12:22 98 20 132/77 97 07/30/24 10:38 98.2 F 87 18 132/96 98 07/30/24 08:40 98.6 F 103 H 20 107/76 96 07/30/24 08:00 121/85 07/30/24 07:29 97.5 F L 92 24 110/82 96 07/30/24 05:00 85 21 101/66 95 07/30/24 03:00 88 18 114/80 97 07/30/24 01:00 93 21 97/82 96 07/29/24 23:30 85 20 133/94 98 07/29/24 21:36 90 16 116/98 98 07/29/24 18:44 111 H 16 108/86 99 07/29/24 16:42 134 H 30 H 132/87 100 Intake and Output 07/30/24 07/30/24 07/30/24 06:59 14:59 22:59 Intake Total 77.788 90.692 Balance 77.788 90.692 Intake: Intake, IV Titration 77.788 90.692 Amount Heparin Sod,Pork in 0.45% 77.788 90.692 NaCl 25,000 unit In 0.45 % NaCl 1 250ml.bag @ 12 UNITS/KG/HR 9.525 mls/hr IV .Q24H [facility]ANDA Rx#: [id number] Results CBC & Chem 7: 07/29/24 14:30 07/29/24 14:30 Labs: Abnormal Lab Results - Last 24 Hours (Table) 07/29/24 07/29/24 07/29/24 Range/Units 19:52 20:15 23:14 APTT (22.0-30.0) sec Troponin I 0.046 H* 0.064 H* (0.000-0.034) ng/mL Triglycerides (0.00-149.00) mg/dL HDL Cholesterol (40.00-60.00) mg/dL Ur Specific [place] >1.050 H (1.001-1.035) Urine Protein 1+ H (Negative) Urine RBC 6 H (0-5) /hpf Ur Squamous Epith Cells 6 H (0-4) /hpf Urine Yeast (Budding) Rare H (None) /hpf 07/30/24 07/30/24 Range/Units 03:41 12:12 APTT 123.6 H* (22.0-30.0) sec Troponin I (0.000-0.034) ng/mL Triglycerides 193.00 H (0.00-149.00) mg/dL HDL Cholesterol 36.90 L (40.00-60.00) mg/dL Ur Specific [place] (1.001-1.035) Urine Protein (Negative) Urine RBC (0-5) /hpf Ur Squamous Epith Cells (0-4) /hpf Urine Yeast (Budding) (None) /hpf
[2024-07-30 20:38] LABS: Glucose,Whole Blood 96 mg/dL (70-110)
[2024-07-30] MEDS ORDERED: RANOLAZINE 500 MG TAB.ER.12H PO SCH (21:00)
[2024-07-30] MEDS: DOCUSATE 100 MG CAP PO SCH (21:25)
[2024-07-30] MEDS: METOPROLOL TARTRATE 12.5 MG TAB PO SCH (21:25)
[2024-07-30] MEDS: ALPRAZolam 0.5 MG TAB PO PRN (21:25)
[2024-07-30] MEDS: SYMBICORT 160-4.5 MCG INHALER INHALATION SCH (21:55)
[2024-07-31 06:10] LABS: Glucose,Whole Blood 92 mg/dL (70-110)
[2024-07-31] MEDS: NON FORMULARY DRUG (Dulaglutide [Trulicity] 3 MG/0.5 ML Each) SQ SCH (07:18)
[2024-07-31] MEDS: CLOPIDOGREL 75 MG TAB PO SCH (07:26)
[2024-07-31] MEDS: ASPIRIN 81 MG PO SCH (07:26)
[2024-07-31] MEDS: ISOSORBIDE MONONITRATE ER 30 MG TAB.ER.24H PO SCH (07:27)
[2024-07-31] MEDS: ATORVASTATIN 80 MG TAB PO SCH (07:27)
[2024-07-31 08:14] LABS: Anisocytosis Slight; Basophils % (A) 0 %; Eosinophils # (A) 0.2 k/uL (0-0.7); Eosinophils % (A) 3 %; HCT 35.4 % (34.0-46.0); HGB 10.9 gm/dL (11.4-16.0); Hypochromasia Marked; Lymphocytes # (A) 2.9 k/uL (1.0-4.8); Lymphocytes % (A) 49 %; MCH 26.7 pg (25.0-35.0); MCHC 30.7 g/dL (31.0-37.0); MCV 86.9 fL (80.0-100.0); Mean Platelet Volume 8.4; Monocytes # (A) 0.3 k/uL (0-1.0); Monocytes % (A) 6 %; Neutrophils # (A) 2.3 k/uL (1.3-7.7); Neutrophils % (A) 40 %; Platelet Count 278 k/uL (150-450); RBC 4.07 m/uL (3.80-5.40); RDW 17.5 % (11.5-15.5); WBC 5.8 k/uL (3.8-10.6)
[2024-07-31 08:29] LABS: African American GFR (CKD) >90 (>60 ml/min/1.73 sqM); Anion Gap 8 mmol/L; Blood Urea Nitrogen 7 mg/dL (7-17); Calcium 9.2 mg/dL (8.4-10.2); Carbon Dioxide 23 mmol/L (22-30); Chloride 109 mmol/L (98-107); Glucose 94 mg/dL (74-99); Non-African American GFR(CKD) >90 (>60 ml/min/1.73 sqM); Sodium 140 mmol/L (137-145)
[2024-07-31 08:34] LABS: Potassium 3.7 mmol/L (3.5-5.1)
[2024-07-31] MEDS ORDERED: DAPAGLIFLOZIN PROPANEDIOL 5 MG TABLET PO SCH (09:00)
[2024-07-31] MEDS ORDERED: NITROGLYCERIN SL TABS 0.4 MG TAB SUBLINGUAL PRN (10:33)
[2024-07-31] MEDS ORDERED: ALPRAZolam 0.25 MG TAB PO PRN (10:33)
[2024-07-31] MEDS: RANOLAZINE 500 MG TAB.ER.12H PO SCH (10:38)
[2024-07-31] MEDS: METOPROLOL TARTRATE 12.5 MG TAB PO STA (10:38)
[2024-07-31] MEDS: ASPIRIN 325 MG TAB PO STA (10:41)
--- NOTE | 2024-07-31 10:57 | CA ---
Transthoracic Echo Report Name: Griselda Mcadams Age: 53 Gender: F : 1970 Exam Date: 07/30/2024 14:38 Exam Location: [facility] Ht (in): 65 Wt (lb): 175 Ordering Physician: Jhonny Thompson MD Attending/Referring Phys: Charge Preparation Technician Zoë Ramirez RDCS Procedure CPT: Indications: LVEF and wall motion only Cardiac Hx: Technical Quality: Technically difficult study Contrast 1: Definity Total Dose (mL): 2 Contrast 2: Total Dose (mL): MEASUREMENTS (Male / Female) Normal Values FINDINGS Left Ventricle Normal left ventricular systolic function with no obvious regional wall motion abnormalities. Left ventricular ejection fraction is estimated at 55-60 %. Right Ventricle Right Atrium Left Atrium Mitral Valve Aortic Valve Tricuspid Valve Pulmonic Valve Pericardium No pericardial effusion. Aorta CONCLUSIONS Normal LV function and wall motion Previewed by: Dr. Navin Mcfarlane MD (Electronically Signed) Final Date: 31 July 2024 10:56
[2024-07-31] MEDS: SODIUM CHLORIDE 0.9% 1,000 ML IV SCH (10:59)
[2024-07-31 11:42] LABS: Glucose,Whole Blood 167 mg/dL (70-110)
--- NOTE | 2024-07-31 12:24 | P.PN ---
Subjective Progress Note Date: 07/31/24 HISTORY OF PRESENTING ILLNESS 53-year-old female with past medical history of CAD status post CABG with vein graft to LAD and residual disease in LCx and RCA which is nonobstructive. Her last cath was in 2021. She also has history of hypertension dyslipidemia type 2 diabetes. 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 In April patient had 3 admissions to our hospital with substernal chest pressure symptoms. At that time she had an echocardiogram which showed an EF of 55 to 60%, VQ scan with low probability of pulmonary embolism, ECG with sinus tachycardia with nonspecific ST abnormalities. 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 During that admission she had a dobutamine echo stress test. At 80% of maximal heart rate she did not have any stress-induced regional wall motion abnormality. She had a prolonged hospital stay in June and was discharged last week. She was found to have diverticulitis and was found to have bowel perforation. She ended up getting bowel resection with end-to-end anastomosis. She required 2 surgeries for this. Last surgery was in June 2024. Since surgery patient complained of abdominal pain and epigastric burning sensations. This time she presents to the hospital 1 week after her recent discharge with substernal chest pressure and abdominal pain symptoms. Her admission ECG showed sinus rhythm with nonspecific ST changes. Repeat ECG showed sinus tachycardia with heart rate in 130s with diffuse ST depressions in anterolateral leads. This time she presents to the hospital because of substernal chest pressure and abdominal pain symptoms. Her admission troponin was negative, repeat troponins were mildly elevated at 0.04, 0.06. She had abdominal CT which did not report any major small bowel obstruction. It showed some postop changes. 07/31 Patient is seen and examined. Repeat troponin came back at 0.149. Other lab work: WBC 5.8, hemoglobin 10.9, sodium 140, potassium 3.7 creatinine 0.56. She has been maintained on a heparin drip. Dr. Thompson discussed recommendations for left heart catheterization. Patient is currently n.p.o. status. Patient is agreeable to move forward with this today. Blood pressure 138/81, heart rate 79, pulse ox 96% on 2 L nasal cannula. Limited echocardiogram reveals normal LV function and wall motion. PHYSICAL EXAMINATION Vital signs reviewed. Head: Normocephalic. Eyes: Sclerae nonicteric. Neck: Brisk carotid upstroke, no jugular venous distention. Lungs: Clear to auscultation. Heart: Regular rate and rhythm, S1-S2, no S3, no murmur or rub. Abdomen: Soft , tender to touch in lower abdomen. Extremities: No edema, intact distal pulses. Neuro: Alert, oritented, no focal deficits. Detailed neuro exam was not performed. ASSESSMENT Type II NSTEMI Chest pain and abdominal pain Prior history of stable CAD with occluded vein graft to LCx, mild diffuse diseas e in LCx and RCA, patent vein graft to LAD. Recent extensive hospital stay because of diverticulitis with bowel perforation status post resection and end-to-end anastomosis Type 2 diabetes Essential hypertension COPD PLAN Continue aspirin, Plavix, atorvastatin. Increase metoprolol 25 mg twice daily. Start patient on Ranexa 500 mg twice daily Continue to hold Farxiga at this time Continue IV heparin drip Patient will be scheduled for cardiac catheterization today with Dr. Thompson. Nurse practitioner note has been reviewed, I agree with documented findings and plan of care. Patient was seen and examined. Objective - Vital Signs Vital signs: Vital Signs Temp 98.9 F 07/31/24 07:21 Pulse 72 07/31/24 09:36 Resp 20 07/31/24 07:21 BP 138/81 07/31/24 07:21 Pulse Ox 96 07/31/24 09:26 FiO2 Intake & Output 07/30/24 07/31/24 07/31/24 18:59 06:59 18:59 Intake Total 90.692 53.181 240 Balance 90.692 53.181 240 Weight 82.3 kg Intake: Intake, IV Titration 90.692 53.181 Amount Heparin Sod,Pork in 0.45% 90.692 53.181 NaCl 25,000 unit In 0.45 % NaCl 1 250ml.bag @ 12 UNITS/KG/HR 9.525 mls/hr IV .Q24H [facility] Rx#: [id number] Oral 240 Other: Voiding Method Toilet Toilet # Voids 2 - Labs CBC & Chem 7: 07/31/24 07:09 07/31/24 07:09 Labs: Abnormal Lab Results - Last 24 Hours (Table) 07/30/24 07/30/24 07/30/24 Range/Units 12:12 17:11 20:41 Hgb (11.4-16.0) gm/dL MCHC (31.0-37.0) g/dL RDW (11.5-15.5) % APTT 123.6 H* 56.8 H (22.0-30.0) sec Chloride (98-107) mmol/L Troponin I 0.149 H* (0.000-0.034) ng/mL 07/31/24 07/31/24 07/31/24 Range/Units 07:09 07:09 07:09 Hgb 10.9 L (11.4-16.0) gm/dL MCHC 30.7 L (31.0-37.0) g/dL RDW 17.5 H (11.5-15.5) % APTT 49.3 H (22.0-30.0) sec Chloride 109 H (98-107) mmol/L Troponin I (0.000-0.034) ng/mL
[2024-07-31] MEDS: MIDAZOLAM 2 MG/2 ML VIAL IVP ONE (13:15)
[2024-07-31] MEDS: fentaNYL (PF) 50 MCG/ML 2 ML AMP IVP ONE (13:15)
[2024-07-31] MEDS: SODIUM CHLORIDE 0.9% 1,000 ML IV ONE (13:17)
[2024-07-31] MEDS: LIDOCAINE 1% INJ 10MG/ML (20 ML MDV) SQ ONE (13:19)
--- NOTE | 2024-07-31 13:27 | P.PN ---
Subjective Progress Note Date: 07/31/24 SURGICAL PROGRESS NOTE CHIEF COMPLAINT: Abdominal pain and vomiting HISTORY OF PRESENT ILLNESS: Patient is scheduled for heart catheterization today with cardiology service. Patient continues to complain of abdominal pain and nausea. She reports she is feels anxious about heart cath. No vomiting. Vital stable. WBC 5.8 Hgb 10.9 platelets 278. K 3.7 PHYSICAL EXAM: VITAL SIGNS: Reviewed. GENERAL: Well-developed in no acute distress. ABDOMEN: Soft. Nondistended. NEUROLOGIC: Alert and oriented. Cranial nerves II through XII grossly intact. ASSESSMENT: 1. Abdominal pain with nausea and vomiting 2. Constipation 3. CAT scan findings with changes to the small bowel with some inflammation likely postsurgical around the terminal ileum. Doubt acute infection. Patient has no elevation in white count and is afebrile 4. Hypokalemia improved PLAN: -Continue cardiac workup -Continue stool softeners -No surgical intervention planned Physician Bible Worker note has been reviewed by physician. Signing provider agrees with the documented findings, assessment, and plan of care. Attestation Patient seen and examined at bedside on 07/31/2024. She is anxious for cardiac catheterization today. No significant change in abdominal discomfort. We will await cardiac workup prior to any surgical recommendations. Please hold anticoagulation. Marga Samuel, Objective - Vital Signs Vital signs: Vital Signs Temp 97.6 F 07/31/24 11:28 Pulse 81 07/31/24 11:28 Resp 20 07/31/24 11:28 BP 122/75 07/31/24 11:28 Pulse Ox 94 L 07/31/24 11:28 FiO2 Intake & Output 07/30/24 07/31/24 07/31/24 18:59 06:59 18:59 Intake Total 90.692 53.181 396.686 Balance 90.692 53.181 396.686 Weight 82.3 kg Intake: Intake, IV Titration 90.692 53.181 156.686 Amount Heparin Sod,Pork in 0.45% 90.692 53.181 156.686 NaCl 25,000 unit In 0.45 % NaCl 1 250ml.bag @ 12 UNITS/KG/HR 9.525 mls/hr IV .Q24H [facility]ANDA Rx#: [id number] Oral 240 Other: Voiding Method Toilet Toilet # Voids 2 - Labs CBC & Chem 7: 08/01/24 06:23 08/01/24 06:23 Labs: Abnormal Lab Results - Last 24 Hours (Table) 07/30/24 07/30/24 07/31/24 Range/Units 17:11 20:41 07:09 Hgb 10.9 L (11.4-16.0) gm/dL MCHC 30.7 L (31.0-37.0) g/dL RDW 17.5 H (11.5-15.5) % APTT 56.8 H (22.0-30.0) sec Chloride (98-107) mmol/L POC Glucose (mg/dL) (70-110) mg/dL Troponin I 0.149 H* (0.000-0.034) ng/mL 07/31/24 07/31/24 07/31/24 Range/Units 07:09 07:09 11:40 Hgb (11.4-16.0) gm/dL MCHC (31.0-37.0) g/dL RDW (11.5-15.5) % APTT 49.3 H (22.0-30.0) sec Chloride 109 H (98-107) mmol/L POC Glucose (mg/dL) 167 H (70-110) mg/dL Troponin I (0.000-0.034) ng/mL
[2024-07-31] MEDS: IOPAMIDOL-370 100ML BTL INJ ONE (13:35)
--- NOTE | 2024-07-31 13:59 | P.PN ---
Subjective Progress Note Date: 07/31/24 Principal diagnosis: Hospital course: Patient is a 53-year-old female who was just discharged from the hospital on 03/25 for epigastric pain and ideas presented to the ED yesterday with abdominal pain nausea, and vomiting. Patient has an extensive history and the patient has hospitalization for prolonged period of time. She is status post open ileocecect michael for colitis with intramural abscess on 06/14/2024 and on 06/22/2024 she was taken back to the OR for exploratory laparotomy with lysis of adhesions and small bowel resection x 2 and proximal right colon resection for small bowel obstruction secondary to adhesions and inflammation. Patient has had prior hospitalization for ileus in June. After the surgery the patient had switched to high fiber diet. Today patient mentions she developed an upset stomach after which she started vomiting. She had 4-5 episodes of vomiting. She called Dr. Dubois who advised her to take some stool softeners, she did take the stool softener and had a bowel movement but after that her abdominal pain got worse. Abdominal pain is mostly in the left lower quadrant and in the epigastric region. At this point EMS was called and patient arrived to the ER. While in the ER she started having chest pain that was sharp in nature, 10 out of 10 in severity and was radiating down her left arm. She notes the pain resolved after taking 3 nitro's. She mentions that she has had 4 heart attacks in the past but her chest pain did not resolve during those times even with 4-5 nitroglycerin. She also mentions experiencing chills. Denies fever, diarrhea, hematuria, hematochezia, melena. ED documentation reviewed and case discussed with ED provider. In the ED she was treated with a normal saline bolus, Dilaudid, dicyclomine, Ativan, nitroglycerin sublingual tablets and aspirin 324 mg. Vitals: T 98.1 F, P 104 bpm, RR 16, BP 181/116, O2 sat 96% on room air CT abdomen pelvis: Postsurgical changes to the small bowel with some inflammation. There is stool and watery stool within the large bowel. No definitive evidence for small bowel obstruction. No acute abdominal process visualized. EKG: Sinus rhythm with nonspecific ST changes. Repeat EKG: Sinus tachycardia with diffuse ST depressions in anterolateral leads Labs: WBC 7.4, hemoglobin 12.7, potassium 3.3, BUN 4, AST 51, ALP 167, APTT 22.8->123.6 Troponin: 0.018, 0.046, 0.064 UA:> 1.050 specific gravity, 1+ protein, 6 RBC, 6 squamous epithelial cells, rare budding yeast Lipid panel: Triglycerides 193, HDL 36.9 : Patient seen and examined today. She mentions having abdominal pain when she has to use the restroom that she attributes to post surgical pain. No acute events overnight. Review of systems: Pertinent positives and negatives as discussed in HPI, a complete review of systems was performed and all other systems are negative. Vitals: Signs Reviewed Physical examination: General: nontoxic, no distress, appears at stated age Derm: warm, dry, intact Head: atraumatic, normocephalic, symmetric Eyes: EOMI, anicteric sclera Mouth: no lip lesion, mucus membranes moist Cardiovascular: S1 S2 reg, no murmur Lungs: CTA bilateral, no rhonchi, no rales, no accessory muscle use Abdominal: soft, non-tender to palpataion Extremities: No cyanosis, clubbing, or pedal edema. Neuro: Alert, Oriented, Gross neurological examination did not reveal any focal deficits. Psych: well appearing, appropriate affect Assessment/Plan: Patient is a 53-year-old female with past medical history of ileocecectomy for colitis with intramural abscess, lysis of adhesions and small bowel resection, PA and 7 stents placement who presented to the ED today for abdominal pain, nausea, vomiting. She subsequently developed sharp chest pain radiating to the left arm. She has been admitted for further workup and management. #. Type II NSTEMI #. Prior history of stable CAD On 05/29/24 -negative stress test by EKG criteria and negative dobutamine stress test echocardiogram without evidence of ischemia at 80% of the predicted maximal HR Elevated troponin 0.018,0.046,0.064, 0.149 Limited echocardiogram showed normal LV function and wall motion, EF 55-60% Metoprolol increased to 12.5 mg BID. Started on Ranexa 500 mg BID Continue Aspirin 81 mg p.o. daily, atorvastatin 80 mg p.o. daily, clopidogrel 75 mg p.o. daily, Isosorbide mononitrate 30 mg PO daily, IV heparin drip Nitroglycerin SL tabs 0.4 mg Q5M PRN Patient to receive cardiac catheterisation today. Telemetry monitoring Cardiology following #. Abdominal pain, s/p ileocecectomy and lysis of adhesions #. Constipation Colace 1000mg PO BID started today No surgical intervention planned Surgery is following #. History of COPD on home oxygen 2L Continue Nebulised albuterol, Symbicort, Duoneb, Continue supplemental oxygen,currently on 2L via nasal cannula #. Hypokalemia K 3.7 Potassium chloride 20meq IVPB once ordered today. Monitor BMP #.Pain management Dilaudid 1mg IVP Q4HR PRN #. Anxiety Xanax 0.5 mg PO Q6HR PRN for moderate anxiety Xanax 0.25 mg PO Q6HR PRN for mild anxiety F:0.9 normal saline at 75 ml/hr E:K repleted in the ED N:Heart healthy diet A:Ambulatory DVT prophylaxis: IV Heparin drip GI prophylaxis: Protonix 40 mg p.o. twice daily Objective - Vital Signs Vital signs: Vital Signs Temp 97.7 F 07/31/24 04:00 Pulse 73 07/31/24 04:00 Resp 16 07/31/24 04:00 BP 138/77 07/31/24 04:00 Pulse Ox 95 07/31/24 04:00 FiO2 Intake & Output 07/30/24 07/30/24 07/31/24 06:59 18:59 06:59 Intake Total 77.788 90.692 53.181 Balance 77.788 90.692 53.181 Weight 82.3 kg Intake: Intake, IV Titration 77.788 90.692 53.181 Amount Heparin Sod,Pork in 0.45% 77.788 90.692 53.181 NaCl 25,000 unit In 0.45 % NaCl 1 250ml.bag @ 12 UNITS/KG/HR 9.525 mls/hr IV .Q24H [facility] Rx#: [id number] Other: Voiding Method Toilet # Voids 2 - Labs CBC & Chem 7: 07/31/24 07:09 07/31/24 07:09 Labs: Abnormal Lab Results - Last 24 Hours (Table) 07/30/24 07/30/24 07/30/24 Range/Units 03:41 12:12 17:11 APTT 123.6 H* (22.0-30.0) sec Troponin I 0.149 H* (0.000-0.034) ng/mL Triglycerides 193.00 H (0.00-149.00) mg/dL HDL Cholesterol 36.90 L (40.00-60.00) mg/dL 07/30/24 Range/Units 20:41 APTT 56.8 H (22.0-30.0) sec Troponin I (0.000-0.034) ng/mL Triglycerides (0.00-149.00) mg/dL HDL Cholesterol (40.00-60.00) mg/dL
[2024-07-31] MEDS: POTASSIUM CHLORIDE 20 MEQ in WATER FOR INJECTION 1 100ML.BAG IVPB STA (14:42)
[2024-07-31] MEDS: PREGABALIN 75 MG CAP PO SCH (15:04)
--- NOTE | 2024-07-31 15:56 | P.CARDCATH ---
Date of Procedure: 07/31/24 Description of Procedure: DIAGNOSTIC CORONARY ANGIOGRAPHY and LEFT HEART CATH REPORT PROCEDURES PERFORMED: Left heart catheterization Selective coronary angiography Moderate conscious sedation 19 mins Right common femoral access Right common femoral arteriogram Vein graft angiogram Angioseal Closure INDICATION: NSTEMI. Prior history of CAD with CABG and multiple PCI. HPI 53-year-old female with past medical history of CAD status post CABG. Last heart cath in 2021 showed patent vein graft to LAD with poor distal runoff, patent proximal stent and LCx with occluded vein graft to OM, RCA was not grafted and is patent with mild luminal irregularities. Last when she had extensive hospital stay for complicated diverticulitis and bowel perforation requiring surgical repair. This time she presented to the hospital because of increased chest pressure and shortness of breath along with abdominal pain. On admission she had evidence of elevated troponin with an uptrending pattern. Due to this she was scheduled for a heart catheterization procedure. CONSENT: I have discussed the risks, benefits and alternative therapies for the above-mentioned procedure, sedation/analgesia and necessary blood product administration (if indicated, as they pertain to this patient). The patient has indicated understanding and acceptance of the risks and procedures discussed. Conscious Sedation: Patient's ECG, heart rate, blood pressure, pulse oximetry was monitored throughout the duration of procedure under the direct supervision. [1] mg Versed and 75 mg Fentanyl were used for induction of moderate conscious sedation. Total duration of 19 minutes. PROCEDURE:After the risks, benefits and alternatives of the above mentioned procedure explained in detail with the patient, informed consent was obtained. Patient was taken to the catheterization lab and prepped and draped in usual sterile fashion. Ultrasound was used to identify the right common femoral artery. 1% lidocaine was infiltrated over the right common femoral artery. Using ultrasound arterial access was obtained using micropuncture needle. A 6-Indian sheath was placed in the right coomon femoral artery using modified Seldinger technique. J tipped wire was advanced under fluoroscopic guidance. Over the wire JL4.5 diagnostic catheter was advanced. Wire was removed, catheter was flushed and manipulated under fluoroscopy to selectively engaged the left coronary ostium. Left coronary angioplasty was performed in different angiographic projections. This catheter was exchanged for a JR4 diagnostic catheter over the wire. The catheter was flushed and manipulated to cross the aortic valve. LV pressures were obtained. Pullback was performed across aortic valve and catheter was manipulated to selectively engage the right coronary ostium under fluoroscopic guidance. Right coronary angiography was performed in different angiographic projections. Catheter was removed over the wire. Femoral sheath was flushed. Angioseal closure device was used to close the arteriotomy site. Appropriate patent hemostasis was achieved. The patient tolerated the procedure well. Patient was transported back to the post catheterization holding area in stable condition. Angiographic images were reviewed in detail. Complications: None Estimated blood loss less than 20 mL Contrast used: Isovue 55 mL Catheters used, JL 4.5 6 Indian, JR4 6 Indian HEMODYNAMICS: Aortic Pressure: 120/70 mmHg. LV pressure: 120/5 mmHg. LVEDP 10 mmHg. SELECTIVE CORONARY ARTERIOGRAPHY: LEFT MAIN: Left main is medium caliber and has a stent from left main to LCx. LAD is occluded at the ostium. There is a previous stent visible at the ostium of the LAD with 100% occlusion. LEFT ANTERIOR DESCENDING CORONARY ARTERY: 100% occluded at the ostium. Old stent visible at the ostium of the LAD. LEFT CIRCUMFLEX CORONARY ARTERY: It is nondominant vessel. LCx is moderate caliber vessel. Proximal LCx is a long segment of prior stent. At the origin site of LAD, there is a 30-40% in-stent stenosis in the LCx stent. There is mild in-stent intimal hyperplasia in the LCx stent throughout. Mid LCx gives a small OM 1 branch, medium size OM 2 and OM 3 branch which are angiographically patent. There is a vein graft rash to the OM 2 which is occluded. There is a prior stent seen in the vein graft. After OM 3 and LCx becomes a small AV groove branch with mild diffuse disease. RIGHT CORONARY ARTERY: Dominant vessel. RCA is moderate caliber vessel. Proximal RCA has mild luminal irregularities. Mid RCA has moderate diffuse disease in the range of 40 to 50%. Distal RCA is patent and bifurcates into PDA and PL branch. Grafts Vein graft to LAD. Ostium of the vein graft has 30 to 40% disease. Vein graft is otherwise patent attaches to the mid LAD. It fills the distal LAD and the diagonal 2. It retrogradely fills the mid LAD which fills the diagonal 1 and septal branches. Diagonal and septal branches are small and has mild disease. Overall runoff is decent. Vein graft to LCx. Known to be occluded in 2021. Prior stent noticed in vein graft IMPRESSION: 50% mid RCA stenosis Patent LCx stent with 40% in-stent stenosis, and mild neointimal hyperplasia 100% occluded ostial LAD Patent vein graft to LAD Occluded vein graft to OM When compared to the findings from 2021, all arteries appear or plum with better runoff and distal LCx and LAD. Mid RCA disease has progressed from before currently in 40 to 50% range. PLAN: 75 cc fluids for 6 hours. Of fluids after. At this time she does not have any target lesions that needs to be intervened upon. She needs aggressive risk factor modification. Would recommend maximal therapy. Dual antiplatelet therapy with aspirin and Plavix for the next 12 months. Lipitor 80 mg, Ranexa 1000 mg twice daily, Imdur 30 mg daily, metoprolol 25 mg twice daily. Would recommend increasing metoprolol to maximum tolerated dose depending on heart rate and blood pressure, goal resting heart rate 50-60 bpm. Performing Physician Jhonny Thompson MD FACC, RPVI
[2024-07-31 16:42] LABS: Glucose,Whole Blood 103 mg/dL (70-110)
[2024-07-31 20:03] LABS: Glucose,Whole Blood 175 mg/dL (70-110)
[2024-07-31] MEDS: METOPROLOL TARTRATE 25 MG TAB PO SCH (21:47)
[2024-07-31] MEDS: ALPRAZolam 0.5 MG TAB PO PRN (21:47)
[2024-08-01 02:59] LABS: Glucose,Whole Blood 97 mg/dL (70-110)
[2024-08-01 06:05] LABS: Glucose,Whole Blood 126 mg/dL (70-110)
[2024-08-01 06:51] LABS: Anisocytosis Slight; HCT 33.4 % (34.0-46.0); HGB 10.3 gm/dL (11.4-16.0); Hypochromasia Marked; MCH 26.9 pg (25.0-35.0); MCHC 30.8 g/dL (31.0-37.0); MCV 87.5 fL (80.0-100.0); Mean Platelet Volume 7.4; Platelet Count 338 k/uL (150-450); RBC 3.81 m/uL (3.80-5.40); RDW 17.4 % (11.5-15.5); WBC 6.2 k/uL (3.8-10.6)
[2024-08-01 07:00] LABS: African American GFR (CKD) >90 (>60 ml/min/1.73 sqM); Anion Gap 9 mmol/L; Blood Urea Nitrogen 5 mg/dL (7-17); Calcium 9.1 mg/dL (8.4-10.2); Carbon Dioxide 22 mmol/L (22-30); Chloride 108 mmol/L (98-107); Glucose 113 mg/dL (74-99); Non-African American GFR(CKD) >90 (>60 ml/min/1.73 sqM); Potassium 3.6 mmol/L (3.5-5.1); Sodium 139 mmol/L (137-145)
[2024-08-01] MEDS ORDERED: HEPARIN SODIUM,PORCINE 10,000 UNIT in SODIUM CHLORIDE 0.9% 1,000 ML IRRIGATION PRN (07:00)
[2024-08-01] MEDS ORDERED: HEPARIN SODIUM,PORCINE (1 ML) 2,500 UNIT in SODIUM CHLORIDE 0.9% 250 ML IRRIGATION PRN (07:00)
[2024-08-01 08:03] LABS: Glucose,Whole Blood 151 mg/dL (70-110)
[2024-08-01] MEDS: HEPARIN SODIUM,PORCINE 5,000 UNIT/ML 1 ML VIAL SQ SCH (09:56)
[2024-08-01] MEDS: DAPAGLIFLOZIN PROPANEDIOL 10 MG TABLET PO SCH (11:53)
--- NOTE | 2024-08-01 13:10 | P.PN ---
Subjective Progress Note Date: 08/01/24 HISTORY OF PRESENTING ILLNESS 53-year-old female with past medical history of CAD status post CABG with vein graft to LAD and residual disease in LCx and RCA which is nonobstructive. Her last cath was in 2021. She also has history of hypertension dyslipidemia type 2 diabetes. Her primary dielectric testing machine operator is in [place]. In April patient had 3 admissions to our hospital with substernal chest pressure symptoms. At that time she had an echocardiogram which showed an EF of 55 to 60%, VQ scan with low probability of pulmonary embolism, ECG with sinus tachycardia with nonspecific ST abnormalities. Her last cath was in 2021 which showed stable CAD with patent vein graft to LAD, DEPUTY CLERK of vein graft to LCx but stent in proximal LCx which were patent, RCA had mild disease. During that admission she had a dobutamine echo stress test. At 80% of maximal heart rate she did not have any stress-induced regional wall motion abnormality. She had a prolonged hospital stay in June and was discharged last week. She was found to have diverticulitis and was found to have bowel perforation. She ended up getting bowel resection with end-to-end anastomosis. She required 2 surgeries for this. Last surgery was in June 2024. Since surgery patient complained of abdominal pain and epigastric burning sensations. This time she presents to the hospital 1 week after her recent discharge with substernal chest pressure and abdominal pain symptoms. Her admission ECG showed sinus rhythm with nonspecific ST changes. Repeat ECG showed sinus tachycardia with heart rate in 130s with diffuse ST depressions in anterolateral leads. This time she presents to the hospital because of substernal chest pressure and abdominal pain symptoms. Her admission troponin was negative, repeat troponins were mildly elevated at 0.04, 0.06. She had abdominal CT which did not report any major small bowel obstruction. It showed some postop changes. 07/31 Patient is seen and examined. Repeat troponin came back at 0.149. Other lab work: WBC 5.8, hemoglobin 10.9, sodium 140, potassium 3.7 creatinine 0.56. She has been maintained on a heparin drip. Dr. Thompson discussed recommendations for left heart catheterization. Patient is currently n.p.o. status. Patient is agreeable to move forward with this today. Blood pressure 138/81, heart rate 79, pulse ox 96% on 2 L nasal cannula. Limited echocardiogram reveals normal LV function and wall motion. 08/01 Yesterday, patient underwent cardiac catheterization with Dr. Thompson which revealed 50% mid RCA stenosis, patent left circumflex stent with 40% in-stent restenosis and mild neointimal hyperplasia, 100% occluded ostial LAD, patent vein graft to the LAD, occluded vein graft to the OM. When comparing findings from 2021, all arteries appear pulm or with better runoff distal left circumflex and LAD. Mid RCA disease has progressed from before currently in the 40 to 50% range. Plan is for aspirin and Plavix for the next 12 months along with Lipitor, Ranexa, Imdur metoprolol. Patient denies having any chest pain, chest pressure, shortness of breath. Blood pressure 132/90, heart rate 90, pulse ox 95% on room air. Repeat blood work reveals BUN 5 creatinine 0.57. Hemoglobin is 10.3. This morning, patient is complaining of vomiting x 2 and stomach u pset. She feels like the stomach pain is going up into her chest. PHYSICAL EXAMINATION Vital signs reviewed. Head: Normocephalic. Eyes: Sclerae nonicteric. Neck: Brisk carotid upstroke, no jugular venous distention. Lungs: Clear to auscultation. Heart: Regular rate and rhythm, S1-S2, no S3, no murmur or rub. Abdomen: Soft , tender to touch in lower abdomen. Extremities: No edema, intact distal pulses. Neuro: Alert, oritented, no focal deficits. Detailed neuro exam was not performed. ASSESSMENT Type II NSTEMI status post [facility] Chest pain and abdominal pain Prior history of stable CAD with occluded vein graft to LCx, mild diffuse disease in LCx and RCA, patent vein graft to LAD. Recent extensive hospital stay because of diverticulitis with bowel perforation status post resection and end-to-end anastomosis Type 2 diabetes Essential hypertension COPD PLAN Continue aspirin, Plavix, atorvastatin. Continue patient on Imdur 30 mg daily Continue higher dose of metoprolol 25 mg twice daily. Increase Ranexa 1000 mg twice daily Resume Farxiga 10 mg daily At the time of discharge, patient will follow-up with her primary dielectric testing machine operator in [place] or with Dr. Thompson in 1 to 2 weeks. Nurse practitioner note has been reviewed, I agree with documented findings and plan of care. Patient was seen and examined. Objective - Vital Signs Vital signs: Vital Signs Temp 98.2 F 08/01/24 04:00 Pulse 79 08/01/24 04:00 Resp 18 08/01/24 04:00 BP 135/81 08/01/24 04:00 Pulse Ox 97 08/01/24 04:00 FiO2 Intake & Output 07/31/24 08/01/24 08/01/24 18:59 06:59 18:59 Intake Total 676.686 237 118 Output Total 525 Balance 151.686 237 118 Weight 82.7 kg Intake: IV 100 Intake, IV Titration 156.686 Amount Heparin Sod,Pork in 0.45% 156.686 NaCl 25,000 unit In 0.45 % NaCl 1 250ml.bag @ 12 UNITS/KG/HR 9.525 mls/hr IV .Q24H [facility] Rx#: [id number] Oral 420 237 118 Output: Urine 525 Other: Voiding Method External Catheter Toilet # Voids 3 2 - Labs CBC & Chem 7: 08/01/24 06:23 08/01/24 06:23 Labs: Abnormal Lab Results - Last 24 Hours (Table) 07/31/24 07/31/24 08/01/24 Range/Units 11:40 20:01 06:04 Hgb (11.4-16.0) gm/dL Hct (34.0-46.0) % MCHC (31.0-37.0) g/dL RDW (11.5-15.5) % Chloride (98-107) mmol/L BUN (7-17) mg/dL Glucose (74-99) mg/dL POC Glucose (mg/dL) 167 H 175 H 126 H (70-110) mg/dL 08/01/24 08/01/24 08/01/24 Range/Units 06:23 06:23 08:01 Hgb 10.3 L (11.4-16.0) gm/dL Hct 33.4 L (34.0-46.0) % MCHC 30.8 L (31.0-37.0) g/dL RDW 17.4 H (11.5-15.5) % Chloride 108 H (98-107) mmol/L BUN 5 L (7-17) mg/dL Glucose 113 H (74-99) mg/dL POC Glucose (mg/dL) 151 H (70-110) mg/dL
--- NOTE | 2024-08-01 13:40 | P.PN ---
Subjective Progress Note Date: 08/01/24 Principal diagnosis: Hospital course: Patient is a 53-year-old female who was just discharged from the hospital on 03/25 for epigastric pain and ideas presented to the ED yesterday with abdominal pain nausea, and vomiting. Patient has an extensive history and the patient has hospitalization for prolonged period of time. She is status post open ileocecect michael for colitis with intramural abscess on 06/14/2024 and on 06/22/2024 she was taken back to the OR for exploratory laparotomy with lysis of adhesions and small bowel resection x 2 and proximal right colon resection for small bowel obstruction secondary to adhesions and inflammation. Patient has had prior hospitalization for ileus in June. After the surgery the patient had switched to high fiber diet. Today patient mentions she developed an upset stomach after which she started vomiting. She had 4-5 episodes of vomiting. She called Dr. Dubois who advised her to take some stool softeners, she did take the stool softener and had a bowel movement but after that her abdominal pain got worse. Abdominal pain is mostly in the left lower quadrant and in the epigastric region. At this point EMS was called and patient arrived to the ER. While in the ER she started having chest pain that was sharp in nature, 10 out of 10 in severity and was radiating down her left arm. She notes the pain resolved after taking 3 nitro's. She mentions that she has had 4 heart attacks in the past but her chest pain did not resolve during those times even with 4-5 nitroglycerin. She also mentions experiencing chills. Denies fever, diarrhea, hematuria, hematochezia, melena. ED documentation reviewed and case discussed with ED provider. In the ED she was treated with a normal saline bolus, Dilaudid, dicyclomine, Ativan, nitroglycerin sublingual tablets and aspirin 324 mg. Vitals: T 98.1 F, P 104 bpm, RR 16, BP 181/116, O2 sat 96% on room air CT abdomen pelvis: Postsurgical changes to the small bowel with some inflammation. There is stool and watery stool within the large bowel. No definitive evidence for small bowel obstruction. No acute abdominal process visualized. EKG: Sinus rhythm with nonspecific ST changes. Repeat EKG: Sinus tachycardia with diffuse ST depressions in anterolateral leads Labs: WBC 7.4, hemoglobin 12.7, potassium 3.3, BUN 4, AST 51, ALP 167, APTT 22.8->123.6 Troponin: 0.018, 0.046, 0.064 UA:> 1.050 specific gravity, 1+ protein, 6 RBC, 6 squamous epithelial cells, rare budding yeast Lipid panel: Triglycerides 193, HDL 36.9 : Patient seen and examined today. She mentions having abdominal pain when she has to use the restroom that she attributes to post surgical pain. No acute events overnight. 08/01/24: Patient seen and examined at bedside. No acute events overnight. She complains of pain at the catheter insertion site in the groin. Additionally she also mentions having 2 episodes of vomiting this morning,which was liquidy and brown as well as diarrhea since last night. Patient had diagnostic coronary angiography and left heart cath patient yesterday. No target lesions were found that needed to be intervened upon. EKG done today independently interpreted as sinus rhythm with rate of 76 bpm. Review of systems: Pertinent positives and negatives as discussed in HPI, a complete review of systems was performed and all other systems are negative. Vitals: Signs Reviewed Physical examination: Vital signs reviewed General: nontoxic, no distress, appears at stated age Derm: warm, dry, intact Head: atraumatic, normocephalic, symmetric Eyes: EOMI, anicteric sclera Mouth: no lip lesion, mucus membranes moist Cardiovascular: S1 S2 reg, no murmur Lungs: CTA bilateral, no rhonchi, no rales, no accessory muscle use Abdominal: soft, tender to palpataion in LLQ Extremities: No cyanosis, clubbing, or pedal edema. Neuro: Alert, Oriented, Gross neurological examination did not reveal any focal deficits. Psych: well appearing, appropriate affect Assessment/Plan: Patient is a 53-year-old female with past medical history of ileocecectomy for colitis with intramural abscess, lysis of adhesions and small bowel resection, CT and 7 stents placement who presented to the ED today for abdominal pain, nausea, vomiting. She subsequently developed sharp chest pain radiating to the left arm and had left heart catheterisation that showed no target lesions, but she requires aggressive risk factor modification. #. Type II NSTEMI #. Prior history of stable CAD On 05/29/24 -negative stress test by EKG criteria and negative dobutamine stress test echocardiogram without evidence of ischemia at 80% of the predicted maximal HR Elevated troponin 0.018,0.046,0.064, 0.149 Limited echocardiogram on 07/30/24 showed normal LV function and wall motion, EF 55-60% Left heart catheterization done on 07/31/2024 did not show any target lesions that needed to be intervened upon. She requires aggressive risk factor mod ification Farxiga 10 mg p.o. daily added today Increase Metoprolol to 25 mg PO BID and Ranexa to 1000 mg BID, Continue Aspirin 81 mg p.o. daily, atorvastatin 80 mg p.o. daily, clopidogrel 75 mg p.o. daily, Isosorbide mononitrate 30 mg PO daily Dual antiplatelet therapy with aspirin and Plavix for 12 months per cardiology. Nitroglycerin SL tabs 0.4 mg Q5M PRN Telemetry monitoring Cardiology following #. Abdominal pain, s/p ileocecectomy and lysis of adhesions #. Constipation Continue Colace 100mg PO BID Sucralfate 1 g p.o. 3 times daily added today No surgical intervention planned Surgery is following #. History of COPD on home oxygen 2L Continue Nebulised albuterol, Symbicort, Duoneb, Continue supplemental oxygen,currently on 2L via nasal cannula #. Hypokalemia K 3.6 Potassium chloride 40meq IVPB once ordered today. Monitor BMP #.Pain management Dilaudid 1mg IVP Q4HR PRN #. Anxiety Xanax 0.5 mg PO Q6HR PRN for moderate anxiety Xanax 0.25 mg PO Q6HR PRN for mild anxiety F:0.9 normal saline at 75 ml/hr E:K repleted 40 mEq N:Heart healthy diet A:Ambulatory DVT prophylaxis: Heparin 5000 units SQ every 12 hours GI prophylaxis: Protonix 40 mg p.o. twice daily Objective - Vital Signs Vital signs: Vital Signs Temp 98.2 F 08/01/24 04:00 Pulse 79 08/01/24 04:00 Resp 18 08/01/24 04:00 BP 135/81 08/01/24 04:00 Pulse Ox 97 08/01/24 04:00 FiO2 Intake & Output 07/31/24 08/01/24 08/01/24 18:59 06:59 18:59 Intake Total 676.686 237 Output Total 525 Balance 151.686 237 Weight 82.7 kg Intake: IV 100 Intake, IV Titration 156.686 Amount Heparin Sod,Pork in 0.45% 156.686 NaCl 25,000 unit In 0.45 % NaCl 1 250ml.bag @ 12 UNITS/KG/HR 9.525 mls/hr IV .Q24H [facility] Rx#: [id number] Oral 420 237 Output: Urine 525 Other: Voiding Method External Catheter Toilet # Voids 3 2 - Labs CBC & Chem 7: 08/01/24 06:23 08/01/24 06:23 Labs: Abnormal Lab Results - Last 24 Hours (Table) 07/31/24 07/31/24 07/31/24 Range/Units 07:09 07:09 07:09 Hgb 10.9 L (11.4-16.0) gm/dL Hct (34.0-46.0) % MCHC 30.7 L (31.0-37.0) g/dL RDW 17.5 H (11.5-15.5) % APTT 49.3 H (22.0-30.0) sec Chloride 109 H (98-107) mmol/L BUN (7-17) mg/dL Glucose (74-99) mg/dL POC Glucose (mg/dL) (70-110) mg/dL 07/31/24 07/31/24 08/01/24 Range/Units 11:40 20:01 06:04 Hgb (11.4-16.0) gm/dL Hct (34.0-46.0) % MCHC (31.0-37.0) g/dL RDW (11.5-15.5) % APTT (22.0-30.0) sec Chloride (98-107) mmol/L BUN (7-17) mg/dL Glucose (74-99) mg/dL POC Glucose (mg/dL) 167 H 175 H 126 H (70-110) mg/dL 08/01/24 08/01/24 Range/Units 06:23 06:23 Hgb 10.3 L (11.4-16.0) gm/dL Hct 33.4 L (34.0-46.0) % MCHC 30.8 L (31.0-37.0) g/dL RDW 17.4 H (11.5-15.5) % APTT (22.0-30.0) sec Chloride 108 H (98-107) mmol/L BUN 5 L (7-17) mg/dL Glucose 113 H (74-99) mg/dL POC Glucose (mg/dL) (70-110) mg/dL
[2024-08-01] MEDS ORDERED: POTASSIUM CHLORIDE 10 MEQ in WATER FOR INJECTION 1 100ML.BAG IVPB SCH (14:00)
--- NOTE | 2024-08-01 14:58 | P.PN ---
Subjective Progress Note Date: 08/01/24 SURGICAL PROGRESS NOTE CHIEF COMPLAINT: Abdominal pain and vomiting HISTORY OF PRESENT ILLNESS: Patient status post heart catheterization with no stents. Cardiology recommending medical management. Patient continues to complain of epigastric pain. She continues to had episodes of nausea and vomiting. She is having diarrhea. Stool softener was held. She did receive her Plavix today. PHYSICAL EXAM: VITAL SIGNS: Reviewed. GENERAL: Well-developed in no acute distress. ABDOMEN: Soft. Nondistended. Epigastric tenderness NEUROLOGIC: Alert and oriented. Cranial nerves II through XII grossly intact. ASSESSMENT: 1. Epigastric abdominal pain with nausea and vomiting. History of stomach ulc ers 2. Constipation 3. CAT scan findings with changes to the small bowel with some inflammation li brandy postsurgical around the terminal ileum. Doubt acute infection. Patient has no elevation in white count and is afebrile 4. Hypokalemia improved PLAN: -Further recommendations forthcoming regarding possible EGD -N.p.o. after midnight -Hold Plavix -Discontinue stool softener Physician Head Of Sales Promotion note has been reviewed by physician. Signing provider agrees with the documented findings, assessment, and plan of care. Attestation Patient seen and examined at bedside. Cardiac cath performed yesterday with no requirement of stent placement. Continues to have some epigastric pain. We will consider possibility of EGD. She is n.p.o. after midnight with Plavix held. However, based on anticoagulation, patient may require waiting a few days prior to upper endoscopy. Marga Samuel, Objective - Vital Signs Vital signs: Vital Signs Temp 98.2 F 08/01/24 11:50 Pulse 84 08/01/24 13:37 Resp 16 08/01/24 11:50 BP 128/66 08/01/24 11:50 Pulse Ox 96 08/01/24 11:50 FiO2 Intake & Output 07/31/24 08/01/24 08/01/24 18:59 06:59 18:59 Intake Total 676.686 237 340 Output Total 525 Balance 151.686 237 340 Weight 82.7 kg Intake: IV 100 Intake, IV Titration 156.686 Amount Heparin Sod,Pork in 0.45% 156.686 NaCl 25,000 unit In 0.45 % NaCl 1 250ml.bag @ 12 UNITS/KG/HR 9.525 mls/hr IV .Q24H [facility] Rx#: [id number] Oral 420 237 340 Output: Urine 525 Other: Voiding Method External Catheter Toilet Toilet # Voids 3 2 1 # Bowel Movements 1 - Labs CBC & Chem 7: 08/01/24 06:23 08/01/24 06:23 Labs: Abnormal Lab Results - Last 24 Hours (Table) 07/31/24 08/01/24 08/01/24 Range/Units 20:01 06:04 06:23 Hgb 10.3 L (11.4-16.0) gm/dL Hct 33.4 L (34.0-46.0) % MCHC 30.8 L (31.0-37.0) g/dL RDW 17.4 H (11.5-15.5) % Chloride (98-107) mmol/L BUN (7-17) mg/dL Glucose (74-99) mg/dL POC Glucose (mg/dL) 175 H 126 H (70-110) mg/dL 08/01/24 08/01/24 Range/Units 06:23 08:01 Hgb (11.4-16.0) gm/dL Hct (34.0-46.0) % MCHC (31.0-37.0) g/dL RDW (11.5-15.5) % Chloride 108 H (98-107) mmol/L BUN 5 L (7-17) mg/dL Glucose 113 H (74-99) mg/dL POC Glucose (mg/dL) 151 H (70-110) mg/dL
[2024-08-01] MEDS: POTASSIUM CHLORIDE ER 20 MEQ TAB.ER PO STA (16:40)
[2024-08-01] MEDS: SUCRALFATE 1 GM TAB PO SCH (16:40)
[2024-08-01 19:59] LABS: Glucose,Whole Blood 110 mg/dL (70-110)
[2024-08-01] MEDS: RANOLAZINE 500 MG TAB.ER.12H PO SCH (21:00)
[2024-08-02 06:04] LABS: Glucose,Whole Blood 113 mg/dL (70-110)
[2024-08-02 08:27] LABS: Anisocytosis Slight; HCT 32.3 % (34.0-46.0); HGB 9.9 gm/dL (11.4-16.0); Hypochromasia Marked; MCH 26.8 pg (25.0-35.0); MCHC 30.8 g/dL (31.0-37.0); MCV 87.1 fL (80.0-100.0); Mean Platelet Volume 7.9; Platelet Count 306 k/uL (150-450); RBC 3.71 m/uL (3.80-5.40); RDW 17.2 % (11.5-15.5); WBC 5.1 k/uL (3.8-10.6)
[2024-08-02 08:46] LABS: African American GFR (CKD) >90 (>60 ml/min/1.73 sqM); Anion Gap 6 mmol/L; Blood Urea Nitrogen 6 mg/dL (7-17); Calcium 8.9 mg/dL (8.4-10.2); Carbon Dioxide 24 mmol/L (22-30); Chloride 107 mmol/L (98-107); Glucose 102 mg/dL (74-99); Non-African American GFR(CKD) >90 (>60 ml/min/1.73 sqM); Potassium 3.8 mmol/L (3.5-5.1); Sodium 137 mmol/L (137-145)
[2024-08-02 11:28] LABS: Glucose,Whole Blood 106 mg/dL (70-110)
--- NOTE | 2024-08-02 11:58 | P.PN ---
Subjective Progress Note Date: 08/02/24 HISTORY OF PRESENTING ILLNESS 53-year-old female with past medical history of CAD status post CABG with vein graft to LAD and residual disease in LCx and RCA which is nonobstructive. Her last cath was in 2021. She also has history of hypertension dyslipidemia type 2 diabetes. Her primary hospital orderly is in [place]. In April patient had 3 admissions to our hospital with substernal chest pressure symptoms. At that time she had an echocardiogram which showed an EF of 55 to 60%, VQ scan with low probability of pulmonary embolism, ECG with sinus tachycardia with nonspecific ST abnormalities. Her last cath was in 2021 which showed stable CAD with patent vein graft to LAD, [employer] of vein graft to LCx but stent in proximal LCx which were patent, RCA had mild disease. During that admission she had a dobutamine echo stress test. At 80% of maximal heart rate she did not have any stress-induced regional wall motion abnormality. She had a prolonged hospital stay in June and was discharged last week. She was found to have diverticulitis and was found to have bowel perforation. She ended up getting bowel resection with end-to-end anastomosis. She required 2 surgeries for this. Last surgery was in June 2024. Since surgery patient complained of abdominal pain and epigastric burning sensations. This time she presents to the hospital 1 week after her recent discharge with substernal chest pressure and abdominal pain symptoms. Her admission ECG showed sinus rhythm with nonspecific ST changes. Repeat ECG showed sinus tachycardia with heart rate in 130s with diffuse ST depressions in anterolateral leads. This time she presents to the hospital because of substernal chest pressure and abdominal pain symptoms. Her admission troponin was negative, repeat troponins were mildly elevated at 0.04, 0.06. She had abdominal CT which did not report any major small bowel obstruction. It showed some postop changes. 07/31 Patient is seen and examined. Repeat troponin came back at 0.149. Other lab work: WBC 5.8, hemoglobin 10.9, sodium 140, potassium 3.7 creatinine 0.56. She has been maintained on a heparin drip. Dr. Thompson discussed recommendations for left heart catheterization. Patient is currently n.p.o. status. Patient is agreeable to move forward with this today. Blood pressure 138/81, heart rate 79, pulse ox 96% on 2 L nasal cannula. Limited echocardiogram reveals normal LV function and wall motion. 08/01 Yesterday, patient underwent cardiac catheterization with Dr. Thompson which revealed 50% mid RCA stenosis, patent left circumflex stent with 40% in-stent restenosis and mild neointimal hyperplasia, 100% occluded ostial LAD, patent vein graft to the LAD, occluded vein graft to the OM. When comparing findings from 2021, all arteries appear pulm or with better runoff distal left circumflex and LAD. Mid RCA disease has progressed from before currently in the 40 to 50% range. Plan is for aspirin and Plavix for the next 12 months along with Lipitor, Ranexa, Imdur metoprolol. Patient denies having any chest pain, chest pressure, shortness of breath. Blood pressure 132/90, heart rate 90, pulse ox 95% on room air. Repeat blood work reveals BUN 5 creatinine 0.57. Hemoglobin is 10.3. This morning, patient is complaining of vomiting x 2 and stomach u pset. She feels like the stomach pain is going up into her chest. 08/02 Patient also had nausea this morning. She states her lower extremity edema is better. She states she did not sleep last night. She denies having any chest pain. Blood pressure 137/85, heart rate 58, pulse ox 91% on room air. PHYSICAL EXAMINATION Vital signs reviewed. Head: Normocephalic. Eyes: Sclerae nonicteric. Neck: Brisk carotid upstroke, no jugular venous distention. Lungs: Clear to auscultation. Heart: Regular rate and rhythm, S1-S2, no S3, no murmur or rub. Abdomen: Soft , tender to touch in lower abdomen. Extremities: No edema, intact distal pulses. Neuro: Alert, oritented, no focal deficits. Detailed neuro exam was not performed. ASSESSMENT Type II NSTEMI status post [facility] Chest pain and abdominal pain Prior history of stable CAD with occluded vein graft to LCx, mild diffuse disease in LCx and RCA, patent vein graft to LAD. Recent extensive hospital stay because of diverticulitis with bowel perforation status post resection and end-to-end anastomosis Type 2 diabetes Essential hypertension COPD PLAN Continue aspirin, Plavix, atorvastatin. Continue patient on Imdur 30 mg daily Continue higher dose of metoprolol 25 mg twice daily. Continue Ranexa 1000 mg twice daily Continue Farxiga 10 mg daily At the time of discharge, patient will follow-up with her primary hospital orderly in [place] or with Dr. Thompson in 1 to 2 weeks. Cardiology will sign off this case and follow on an as-needed basis. Please reconsult for any new concerns. Patient may follow-up in the office in one to 2 weeks. Nurse practitioner note has been reviewed, I agree with documented findings and plan of care. Patient was seen and examined. Objective - Vital Signs Vital signs: Vital Signs Temp 98.2 F 08/02/24 08:00 Pulse 85 08/02/24 08:44 Resp 16 08/02/24 08:00 BP 134/89 08/02/24 08:00 Pulse Ox 98 08/02/24 08:30 FiO2 Intake & Output 08/01/24 08/02/24 08/02/24 18:59 06:59 18:59 Intake Total 562 540 222 Balance 562 540 222 Weight 83.2 kg Intake: Oral 562 540 222 Other: Voiding Method Toilet Toilet Toilet # Voids 2 1 # Bowel Movements 1 1 - Labs CBC & Chem 7: 08/02/24 07:04 08/02/24 07:04 Labs: Abnormal Lab Results - Last 24 Hours (Table) 08/02/24 08/02/24 08/02/24 Range/Units 06:02 07:04 07:04 RBC 3.71 L (3.80-5.40) m/uL Hgb 9.9 L (11.4-16.0) gm/dL Hct 32.3 L (34.0-46.0) % MCHC 30.8 L (31.0-37.0) g/dL RDW 17.2 H (11.5-15.5) % BUN 6 L (7-17) mg/dL Glucose 102 H (74-99) mg/dL POC Glucose (mg/dL) 113 H (70-110) mg/dL
--- NOTE | 2024-08-02 13:37 | P.PN ---
Subjective Progress Note Date: 08/02/24 Principal diagnosis: Hospital course: Patient is a 53-year-old female who was just discharged from the hospital on 03/25 for epigastric pain and ideas presented to the ED yesterday with abdominal pain nausea, and vomiting. Patient has an extensive history and the patient has hospitalization for prolonged period of time. She is status post open ileocecect michael for colitis with intramural abscess on 06/14/2024 and on 06/22/2024 she was taken back to the OR for exploratory laparotomy with lysis of adhesions and small bowel resection x 2 and proximal right colon resection for small bowel obstruction secondary to adhesions and inflammation. Patient has had prior hospitalization for ileus in June. After the surgery the patient had switched to high fiber diet. Today patient mentions she developed an upset stomach after which she started vomiting. She had 4-5 episodes of vomiting. She called Dr. Dubois who advised her to take some stool softeners, she did take the stool softener and had a bowel movement but after that her abdominal pain got worse. Abdominal pain is mostly in the left lower quadrant and in the epigastric region. At this point EMS was called and patient arrived to the ER. While in the ER she started having chest pain that was sharp in nature, 10 out of 10 in severity and was radiating down her left arm. She notes the pain resolved after taking 3 nitro's. She mentions that she has had 4 heart attacks in the past but her chest pain did not resolve during those times even with 4-5 nitroglycerin. She also mentions experiencing chills. Denies fever, diarrhea, hematuria, hematochezia, melena. ED documentation reviewed and case discussed with ED provider. In the ED she was treated with a normal saline bolus, Dilaudid, dicyclomine, Ativan, nitroglycerin sublingual tablets and aspirin 324 mg. Vitals: T 98.1 F, P 104 bpm, RR 16, BP 181/116, O2 sat 96% on room air CT abdomen pelvis: Postsurgical changes to the small bowel with some inflammation. There is stool and watery stool within the large bowel. No definitive evidence for small bowel obstruction. No acute abdominal process visualized. EKG: Sinus rhythm with nonspecific ST changes. Repeat EKG: Sinus tachycardia with diffuse ST depressions in anterolateral leads Labs: WBC 7.4, hemoglobin 12.7, potassium 3.3, BUN 4, AST 51, ALP 167, APTT 22.8->123.6 Troponin: 0.018, 0.046, 0.064 UA:> 1.050 specific gravity, 1+ protein, 6 RBC, 6 squamous epithelial cells, rare budding yeast Lipid panel: Triglycerides 193, HDL 36.9 : Patient seen and examined today. She mentions having abdominal pain when she has to use the restroom that she attributes to post surgical pain. No acute events overnight. 08/01/24: Patient seen and examined at bedside. No acute events overnight. She complains of pain at the catheter insertion site in the groin. Additionally she also mentions having 2 episodes of vomiting this morning,which was liquidy and brown as well as diarrhea since last night. Patient had diagnostic coronary angiography and left heart cath patient yesterday. No target lesions were found that needed to be intervened upon. EKG done today independently interpreted as sinus rhythm with rate of 76 bpm. 08/02/24: Patient seen and evaluated today. No acute events overnight. She complains of 1 episode of vomiting today. She has not had a bowel movement since last night. Patient was going to receive EGD today and was made n.p.o. but due to her receiving Plavix and her anticoagulation status, she will now will be receiving EGD on Monday and has been placed on heart healthy diet for now. Review of systems: Pertinent positives and negatives as discussed in HPI, a complete review of systems was performed and all other systems are negative. Vitals: Signs Reviewed Physical examination: General: nontoxic, no distress, appears at stated age Derm: warm, dry, intact Head: atraumatic, normocephalic, symmetric Eyes: EOMI, anicteric sclera Mouth: no lip lesion, mucus membranes moist Cardiovascular: S1 S2 reg, no murmur Lungs: CTA bilateral, no rhonchi, no rales, no accessory muscle use Abdominal: soft, tender to palpataion in LLQ Extremities: No cyanosis, clubbing, or pedal edema. Neuro: Alert, Oriented, Gross neurological examination did not reveal any focal deficits. Psych: well appearing, appropriate affect Assessment/Plan: Patient is a 53-year-old female with past medical history of ileocecectomy for colitis with intramural abscess, lysis of adhesions and small bowel resection, MA and 7 stents placement who presented to the ED today for abdominal pain, nausea, vomiting. She subsequently developed sharp chest pain radiating to the left arm and had left heart catheterisation that showed no target lesions, but she requires aggressive risk factor modification. She will be going for EGD on Monday. #. Abdominal pain, s/p ileocecectomy and lysis of adhesions #. Constipation Continue Colace 100mg PO BID and Sucralfate 1 g p.o. 3 times daily EGD on monday, Plavix held Surgery is following #. Type II NSTEMI #. Prior history of stable CAD On 05/29/24 -negative stress test by EKG criteria and negative dobutamine stress test echocardiogram without evidence of ischemia at 80% of the predicted maximal HR Elevated troponin 0.018,0.046,0.064, 0.149 Limited echocardiogram on 07/30/24 showed normal LV function and wall motion, EF 55-60% Left heart catheterization done on 07/31/2024 did not show any target lesions that needed to be intervened upon. She requires aggressive risk factor modification Continue metoprolol 25 mg PO BID and Ranexa 1000 mg BID, Farxiga 10 mg p.o. daily Dual antiplatelet therapy with aspirin and Plavix for 12 months recommended per cardiology. Continue Aspirin 81 mg p.o. daily, atorvastatin 80 mg p.o. daily, clopidogrel 75 mg p.o. daily, Isosorbide mononitrate 30 mg PO daily Plavix held for EGD on Monday Nitroglycerin SL tabs 0.4 mg Q5M PRN Telemetry monitoring Cardiology following #. Nausea and vomiting Continue IV Zofran 4mg IVP Q6HR PRN #. Diarrhea C. diff ordered. #. History of COPD on home oxygen 2L Continue Nebulised albuterol, Symbicort, Duoneb, Continue supplemental oxygen as required, currently on RA #. Hypokalemia K 3.8 Potassium chloride 20meq PO once ordered today. Monitor BMP #.Pain management Dilaudid 1mg IVP Q4HR PRN #. Anxiety Xanax 0.5 mg PO Q6HR PRN for moderate anxiety Xanax 0.25 mg PO Q6HR PRN for mild anxiety F:0.9 normal saline at 75 ml/hr E:K repleted 20 mEq N:Heart healthy diet A:Ambulatory DVT prophylaxis: Heparin 5000 units SQ every 12 hours GI prophylaxis: Protonix 40 mg p.o. twice daily Objective - Vital Signs Vital signs: Vital Signs Temp 98.2 F 08/02/24 08:00 Pulse 85 08/02/24 11:45 Resp 18 08/02/24 11:45 BP 119/66 08/02/24 11:45 Pulse Ox 95 08/02/24 11:45 FiO2 Intake & Output 08/01/24 08/02/24 08/02/24 18:59 06:59 18:59 Intake Total 562 540 222 Balance 562 540 222 Weight 83.2 kg Intake: Oral 562 540 222 Other: Voiding Method Toilet Toilet Toilet # Voids 2 1 2 # Bowel Movements 1 1 - Labs CBC & Chem 7: 08/02/24 07:04 08/02/24 07:04 Labs: Abnormal Lab Results - Last 24 Hours (Table) 08/02/24 08/02/24 08/02/24 Range/Units 06:02 07:04 07:04 RBC 3.71 L (3.80-5.40) m/uL Hgb 9.9 L (11.4-16.0) gm/dL Hct 32.3 L (34.0-46.0) % MCHC 30.8 L (31.0-37.0) g/dL RDW 17.2 H (11.5-15.5) % BUN 6 L (7-17) mg/dL Glucose 102 H (74-99) mg/dL POC Glucose (mg/dL) 113 H (70-110) mg/dL
--- NOTE | 2024-08-02 15:40 | P.PN ---
Subjective Progress Note Date: 08/02/24 SURGICAL PROGRESS NOTE CHIEF COMPLAINT: Abdominal pain and vomiting HISTORY OF PRESENT ILLNESS: Patient status post heart catheterization with no stents. Cardiology recommending medical management. Patient continues to complain of epigastric pain. She continues to had episodes of nausea and vomiting. She is having diarrhea. Afebrile. WBC 5.1 Hgb 9.9 PHYSICAL EXAM: VITAL SIGNS: Reviewed. GENERAL: Well-developed in no acute distress. ABDOMEN: Soft. Nondistended. Epigastric tenderness NEUROLOGIC: Alert and oriented. Cranial nerves II through XII grossly intact. ASSESSMENT: 1. Epigastric abdominal pain with nausea and vomiting. History of stomach ulcers 2. Constipation 3. CAT scan findings with changes to the small bowel with some inflammation likely postsurgical around the terminal ileum. Doubt acute infection. Patient has no elevation in white count and is afebrile 4. Hypokalemia improved PLAN: -EGD scheduled for 08/05/2024 -Continue to hold Plavix -Resume heart healthy diet -Continue PPI Physician Special Education Aide note has been reviewed by physician. Signing provider agrees with the documented findings, assessment, and plan of care. Objective - Vital Signs Vital signs: Vital Signs Temp 98.2 F 08/02/24 08:00 Pulse 83 08/02/24 15:25 Resp 18 08/02/24 11:45 BP 119/66 08/02/24 11:45 Pulse Ox 95 08/02/24 11:45 FiO2 Intake & Output 08/01/24 08/02/24 08/02/24 18:59 06:59 18:59 Intake Total 562 540 222 Balance 562 540 222 Weight 83.2 kg Intake: Oral 562 540 222 Other: Voiding Method Toilet Toilet Toilet # Voids 2 1 2 # Bowel Movements 1 1 - Labs CBC & Chem 7: 08/02/24 07:04 08/02/24 07:04 Labs: Abnormal Lab Results - Last 24 Hours (Table) 08/02/24 08/02/24 08/02/24 Range/Units 06:02 07:04 07:04 RBC 3.71 L (3.80-5.40) m/uL Hgb 9.9 L (11.4-16.0) gm/dL Hct 32.3 L (34.0-46.0) % MCHC 30.8 L (31.0-37.0) g/dL RDW 17.2 H (11.5-15.5) % BUN 6 L (7-17) mg/dL Glucose 102 H (74-99) mg/dL POC Glucose (mg/dL) 113 H (70-110) mg/dL Assessment and Plan Assessment: 53 yo female w/ epigastric pain r/o ulcer egd on monday Time with Patient: Less than 30
[2024-08-02] MEDS: POTASSIUM CHLORIDE ER 20 MEQ TAB.ER PO STA (15:57)
[2024-08-02 16:15] LABS: Glucose,Whole Blood 118 mg/dL (70-110)
[2024-08-02] MEDS: HYDROmorphone 1 MG/ML 1 ML SYRINGE IVP PRN (20:18)
[2024-08-02 20:34] LABS: Glucose,Whole Blood 136 mg/dL (70-110)
[2024-08-03 06:16] LABS: Glucose,Whole Blood 116 mg/dL (70-110)
[2024-08-03 09:51] LABS: Anisocytosis Slight; HCT 33.5 % (34.0-46.0); HGB 10.6 gm/dL (11.4-16.0); Hypochromasia Moderate; MCH 27.1 pg (25.0-35.0); MCHC 31.7 g/dL (31.0-37.0); MCV 85.6 fL (80.0-100.0); Mean Platelet Volume 7.6; Platelet Count 306 k/uL (150-450); RBC 3.92 m/uL (3.80-5.40); RDW 17.5 % (11.5-15.5); WBC 7.2 k/uL (3.8-10.6)
[2024-08-03 09:59] LABS: African American GFR (CKD) >90 (>60 ml/min/1.73 sqM); Anion Gap 8 mmol/L; Blood Urea Nitrogen 10 mg/dL (7-17); Calcium 9.1 mg/dL (8.4-10.2); Carbon Dioxide 27 mmol/L (22-30); Chloride 101 mmol/L (98-107); Glucose 127 mg/dL (74-99); Non-African American GFR(CKD) >90 (>60 ml/min/1.73 sqM); Potassium 4.3 mmol/L (3.5-5.1); Sodium 136 mmol/L (137-145)
[2024-08-03 11:27] LABS: Glucose,Whole Blood 134 mg/dL (70-110)
--- NOTE | 2024-08-03 13:35 | P.PN ---
Subjective patient seen and evaluated at bedside. Patient doing well amiss to minimal nausea and epigastric pain. Objective - Vital Signs Vital signs: Vital Signs Temp 98.3 F 08/03/24 08:20 Pulse 45 L 08/03/24 11:35 Resp 16 08/03/24 11:35 BP 147/56 08/03/24 11:35 Pulse Ox 99 08/03/24 11:35 FiO2 Intake & Output 08/02/24 08/03/24 08/03/24 18:59 06:59 18:59 Intake Total 1262 540 540 Balance 1262 540 540 Weight 84.3 kg Intake: Oral 1262 540 540 Other: Voiding Method Toilet Toilet Toilet # Voids 4 1 2 - Exam general no acute distress alert and oriented 3 Cardiovascular regular in rhythm Pulmonary nonlabored breathing Abdomen is soft nontender nondistended no guarding or rebound tenderness surgical incision was clean dry and intact, minimal epigastric pain - Labs CBC & Chem 7: 08/03/24 09:32 08/03/24 09:32 Labs: Abnormal Lab Results - Last 24 Hours (Table) 08/02/24 08/02/24 08/03/24 Range/Units 16:14 20:33 06:14 Hgb (11.4-16.0) gm/dL Hct (34.0-46.0) % RDW (11.5-15.5) % Sodium (137-145) mmol/L Glucose (74-99) mg/dL POC Glucose (mg/dL) 118 H 136 H 116 H (70-110) mg/dL 08/03/24 08/03/24 08/03/24 Range/Units 09:32 09:32 11:26 Hgb 10.6 L (11.4-16.0) gm/dL Hct 33.5 L (34.0-46.0) % RDW 17.5 H (11.5-15.5) % Sodium 136 L (137-145) mmol/L Glucose 127 H (74-99) mg/dL POC Glucose (mg/dL) 134 H (70-110) mg/dL Assessment and Plan Assessment: 53-year-old female with epigastric pain likely secondary to gastritis versus gastric ulcer Status post ileocecectomy Having good bowel function CT abdomen and pelvis demonstrates no acute intra-abdominal findings Continue regular diet EGD on Monday Time with Patient: Less than 30
--- NOTE | 2024-08-03 14:45 | P.PN ---
Subjective Progress Note Date: 08/03/24 Principal diagnosis: Hospital course: Patient is a 53-year-old female who was just discharged from the hospital on 03/25 for epigastric pain and ideas presented to the ED yesterday with abdominal pain nausea, and vomiting. Patient has an extensive history and the patient has hospitalization for prolonged period of time. She is status post open ileocecect michael for colitis with intramural abscess on 06/14/2024 and on 06/22/2024 she was taken back to the OR for exploratory laparotomy with lysis of adhesions and small bowel resection x 2 and proximal right colon resection for small bowel obstruction secondary to adhesions and inflammation. Patient has had prior hospitalization for ileus in June. After the surgery the patient had switched to high fiber diet. Today patient mentions she developed an upset stomach after which she started vomiting. She had 4-5 episodes of vomiting. She called Dr. Dubois who advised her to take some stool softeners, she did take the stool softener and had a bowel movement but after that her abdominal pain got worse. Abdominal pain is mostly in the left lower quadrant and in the epigastric region. At this point EMS was called and patient arrived to the ER. While in the ER she started having chest pain that was sharp in nature, 10 out of 10 in severity and was radiating down her left arm. She notes the pain resolved after taking 3 nitro's. She mentions that she has had 4 heart attacks in the past but her chest pain did not resolve during those times even with 4-5 nitroglycerin. She also mentions experiencing chills. Denies fever, diarrhea, hematuria, hematochezia, melena. ED documentation reviewed and case discussed with ED provider. In the ED she was treated with a normal saline bolus, Dilaudid, dicyclomine, Ativan, nitroglycerin sublingual tablets and aspirin 324 mg. Vitals: T 98.1 F, P 104 bpm, RR 16, BP 181/116, O2 sat 96% on room air CT abdomen pelvis: Postsurgical changes to the small bowel with some inflammation. There is stool and watery stool within the large bowel. No definitive evidence for small bowel obstruction. No acute abdominal process visualized. EKG: Sinus rhythm with nonspecific ST changes. Repeat EKG: Sinus tachycardia with diffuse ST depressions in anterolateral leads Labs: WBC 7.4, hemoglobin 12.7, potassium 3.3, BUN 4, AST 51, ALP 167, APTT 22.8->123.6 Troponin: 0.018, 0.046, 0.064 UA:> 1.050 specific gravity, 1+ protein, 6 RBC, 6 squamous epithelial cells, rare budding yeast Lipid panel: Triglycerides 193, HDL 36.9 : Patient seen and examined today. She mentions having abdominal pain when she has to use the restroom that she attributes to post surgical pain. No acute events overnight. 08/01/24: Patient seen and examined at bedside. No acute events overnight. She complains of pain at the catheter insertion site in the groin. Additionally she also mentions having 2 episodes of vomiting this morning,which was liquidy and brown as well as diarrhea since last night. Patient had diagnostic coronary angiography and left heart cath patient yesterday. No target lesions were found that needed to be intervened upon. EKG done today independently interpreted as sinus rhythm with rate of 76 bpm. 08/02/24: Patient seen and evaluated today. No acute events overnight. She complains of 1 episode of vomiting today. She has not had a bowel movement since last night. Patient was going to receive EGD today and was made n.p.o. but due to her receiving Plavix and her anticoagulation status, she will now will be receiving EGD on Monday and has been placed on heart healthy diet for now. 08/03/24: Patient seen and examined today at bedside. No acute events overnight. She complains of pain in the epigastric region and 4 episodes of diarrhea today morning. Labs today WBC 7.2, hemoglobin 10.6 sodium 136. Review of systems: Pertinent positives and negatives as discussed in HPI, a complete review of systems was performed and all other systems are negative. Vitals: Signs Reviewed Physical examination: General: nontoxic, no distress, appears at stated age Derm: warm, dry, intact Head: atraumatic, normocephalic, symmetric Eyes: EOMI, anicteric sclera Mouth: no lip lesion, mucus membranes moist Cardiovascular: S1 S2 reg, no murmur Lungs: CTA bilateral, no rhonchi, no rales, no accessory muscle use Abdominal: soft, tender to palpataion in epigastric region Extremities: No cyanosis, clubbing, or pedal edema. Neuro: Alert, Oriented, Gross neurological examination did not reveal any focal deficits. Psych: well appearing, appropriate affect Assessment/Plan: Patient is a 53-year-old female with past medical history of ileocecectomy for colitis with intramural abscess, lysis of adhesions and small bowel resection, [place] and 7 stents placement who presented to the ED today for abdominal pain, nausea, vomiting. She subsequently developed sharp chest pain radiating to the left arm and had left heart catheterisation that showed no target lesions, but she requires aggressive risk factor modification. She will be going for EGD on Monday to rule out ulcers. #. Abdominal pain, s/p ileocecectomy and lysis of adhesions #. Constipation vs gastric ulcer Sucralfate 1 g p.o. 3 times daily Colace discontinued EGD on monday, Plavix held Surgery is following #. Diarrhea Stool culture ordered #. Type II NSTEMI #. Prior history of stable CAD On 05/29/24 -negative stress test by EKG criteria and negative dobutamine stress test echocardiogram without evidence of ischemia at 80% of the predicted maximal HR Elevated troponin 0.018,0.046,0.064, 0.149 Limited echocardiogram on 07/30/24 showed normal LV function and wall motion, EF 55-60% Left heart catheterization done on 07/31/2024 did not show any target lesions that needed to be intervened upon. She requires aggressive risk factor modifica tion Continue metoprolol 25 mg PO BID and Ranexa 1000 mg BID, Farxiga 10 mg p.o. daily and Nitroglycerin SL tabs 0.4 mg Q5M PRN Dual antiplatelet therapy with aspirin and Plavix for 12 months recommended per cardiology. Continue Aspirin 81 mg p.o. daily, atorvastatin 80 mg p.o. daily, clopidogrel 75 mg p.o. daily, Isosorbide mononitrate 30 mg PO daily Plavix held for EGD on Monday Telemetry monitoring #. Nausea and vomiting Continue IV Zofran 4mg IVP Q6HR PRN #. History of COPD on home oxygen 2L Continue Nebulised albuterol, Symbicort, Duoneb, Continue supplemental oxygen as required, currently saturating well on RA #.Pain management Dilaudid 1mg IVP Q4HR PRN #. Anxiety Xanax 0.5 mg PO Q6HR PRN for moderate anxiety Xanax 0.25 mg PO Q6HR PRN for mild anxiety #. Hypokalemia, resolved K 4.3 F:0.9 normal saline at 75 ml/hr E:K repleted 20 mEq N:Heart healthy diet A:Ambulatory DVT prophylaxis: Heparin 5000 units SQ every 12 hours GI prophylaxis: Protonix 40 mg p.o. twice daily Attestation: I have personally seen and examined the patient with Resident, reviewed the documentation and participated and agree with the assessment and plan as written. Ravi Bang MD Objective - Vital Signs Vital signs: Vital Signs Temp 97.7 F 08/02/24 20:00 Pulse 73 08/03/24 04:00 Resp 16 08/03/24 04:00 BP 135/77 08/03/24 04:00 Pulse Ox 98 08/03/24 04:00 FiO2 Intake & Output 08/02/24 08/03/24 08/03/24 18:59 06:59 18:59 Intake Total 1262 540 Balance 1262 540 Weight 84.3 kg Intake: Oral 1262 540 Other: Voiding Method Toilet Toilet # Voids 4 1 - Labs CBC & Chem 7: 08/04/24 09:08 08/04/24 09:08 Labs: Abnormal Lab Results - Last 24 Hours (Table) 08/02/24 08/02/24 08/02/24 Range/Units 07:04 07:04 16:14 RBC 3.71 L (3.80-5.40) m/uL Hgb 9.9 L (11.4-16.0) gm/dL Hct 32.3 L (34.0-46.0) % MCHC 30.8 L (31.0-37.0) g/dL RDW 17.2 H (11.5-15.5) % BUN 6 L (7-17) mg/dL Glucose 102 H (74-99) mg/dL POC Glucose (mg/dL) 118 H (70-110) mg/dL 08/02/24 08/03/24 Range/Units 20:33 06:14 RBC (3.80-5.40) m/uL Hgb (11.4-16.0) gm/dL Hct (34.0-46.0) % MCHC (31.0-37.0) g/dL RDW (11.5-15.5) % BUN (7-17) mg/dL Glucose (74-99) mg/dL POC Glucose (mg/dL) 136 H 116 H (70-110) mg/dL
[2024-08-03 16:30] LABS: Glucose,Whole Blood 100 mg/dL (70-110)
[2024-08-03 20:25] LABS: Glucose,Whole Blood 140 mg/dL (70-110)
[2024-08-04 06:05] LABS: Glucose,Whole Blood 125 mg/dL (70-110)
[2024-08-04 10:08] LABS: Anisocytosis Slight; HCT 37.2 % (34.0-46.0); HGB 11.3 gm/dL (11.4-16.0); Hypochromasia Marked; MCH 26.7 pg (25.0-35.0); MCHC 30.5 g/dL (31.0-37.0); MCV 87.8 fL (80.0-100.0); Mean Platelet Volume 8.1; Platelet Count 234 k/uL (150-450); RBC 4.23 m/uL (3.80-5.40); RDW 17.3 % (11.5-15.5)
[2024-08-04 10:17] LABS: African American GFR (CKD) >90 (>60 ml/min/1.73 sqM); Anion Gap 11 mmol/L; Blood Urea Nitrogen 9 mg/dL (7-17); Calcium 9.2 mg/dL (8.4-10.2); Carbon Dioxide 23 mmol/L (22-30); Chloride 102 mmol/L (98-107); Glucose 146 mg/dL (74-99); Non-African American GFR(CKD) >90 (>60 ml/min/1.73 sqM); Sodium 136 mmol/L (137-145)
[2024-08-04 11:58] LABS: Glucose,Whole Blood 108 mg/dL (70-110)
--- NOTE | 2024-08-04 14:20 | P.PN ---
Subjective Progress Note Date: 08/04/24 Interval History: Hospital course: Patient is a 53-year-old female who was just discharged from the hospital on 03/25 for epigastric pain and ideas presented to the ED yesterday with abdominal pain nausea, and vomiting. Patient has an extensive history and the patient has hospitalization for prolonged period of time. She is status post open ileocecectomy for colitis with intramural abscess on 06/14/2024 and on 06/22/2024 she was taken back to the OR for exploratory laparotomy with lysis of adhesions and small bowel resection x 2 and proximal right colon resection for small bowel obstruction secondary to adhesions and inflammation. Patient has had prior hospitalization for ileus in June. After the surgery the patient had switched to high fiber diet. Today patient mentions she developed an upset stomach after which she started vomiting. She had 4-5 episodes of vomiting. She called Dr. Dubois who advised her to take some stool softeners, she did take the stool softener and had a bowel movement but after that her abdominal pain got worse. Abdominal pain is mostly in the left lower quadrant and in the epigastric region. At this point EMS was called and patient arrived to the ER. While in the ER she started having chest pain that was sharp in nature, 10 out of 10 in severity and was radiating down her left arm. She notes the pain resolved after taking 3 nitro's. She mentions that she has had 4 heart attacks in the past but her chest pain did not resolve during those times even with 4-5 nitroglycerin. She also mentions experiencing chills. Denies fever, diarrhea, hematuria, hematochezia, melena. ED documentation reviewed and case discussed with ED pro vider. In the ED she was treated with a normal saline bolus, Dilaudid, dicyclomine, Ativan, nitroglycerin sublingual tablets and aspirin 324 mg. Vitals: T 98.1 F, P 104 bpm, RR 16, BP 181/116, O2 sat 96% on room air CT abdomen pelvis: Postsurgical changes to the small bowel with some inflammation. There is stool and watery stool within the large bowel. No definitive evidence for small bowel obstruction. No acute abdominal process visualized. EKG: Sinus rhythm with nonspecific ST changes. Repeat EKG: Sinus tachycardia with diffuse ST depressions in anterolateral leads Labs: WBC 7.4, hemoglobin 12.7, potassium 3.3, BUN 4, AST 51, ALP 167, APTT 22.8->123.6 Troponin: 0.018, 0.046, 0.064 UA:> 1.050 specific gravity, 1+ protein, 6 RBC, 6 squamous epithelial cells, rare budding yeast Lipid panel: Triglycerides 193, HDL 36.9 : Patient seen and examined today. She mentions having abdominal pain when she has to use the restroom that she attributes to post surgical pain. No acute events overnight. 08/01/24: Patient seen and examined at bedside. No acute events overnight. She complains of pain at the catheter insertion site in the groin. Additionally she also mentions having 2 episodes of vomiting this morning,which was liquidy and brown as well as diarrhea since last night. Patient had diagnostic coronary angiography and left heart cath patient yesterday. No target lesions were found that needed to be intervened upon. EKG done today independently interpreted as sinus rhythm with rate of 76 bpm. 08/02/24: Patient seen and evaluated today. No acute events overnight. She complains of 1 episode of vomiting today. She has not had a bowel movement since last night. Patient was going to receive EGD today and was made n.p.o. but due to her receiving Plavix and her anticoagulation status, she will now will be receiving EGD on Monday and has been placed on heart healthy diet for now. 08/03/24: Patient seen and examined today at bedside. No acute events overnight. She complains of pain in the epigastric region and 4 episodes of diarrhea today morning. Labs today WBC 7.2, hemoglobin 10.6 sodium 136. 08/04/2024: Patient was seen and examined today. No issues overnight, complained of epigastric pain, episode of nausea earlier today. Stable, afebrile, heart rate 90, respiratory rate 16, blood pressure 109/57, saturating 99% on room air. CBC today showed WBC 7.0, hemoglobin 11.3, platelet 234. BMP unremarkable. Assessment/Plan: Patient is a 53-year-old female with past medical history of ileocecectomy for colitis with intramural abscess, lysis of adhesions and small bowel resection, [place] and 7 stents placement who presented to the ED today for abdominal pain, nausea, vomiting. She subsequently developed sharp chest pain radiating to the left arm and had left heart catheterisation that showed no target lesions, but she requires aggressive risk factor modification. She will be going for EGD on Monday to rule out ulcers. #. Abdominal pain, s/p ileocecectomy and lysis of adhesions #. Constipation vs gastric ulcer Sucralfate 1 g p.o. 3 times daily Colace discontinued EGD on monday, Plavix held Surgery is following #. Diarrhea Stool culture ordered #. Type II NSTEMI #. Prior history of stable CAD On 05/29/24 -negative stress test by EKG criteria and negative dobutamine stress test echocardiogram without evidence of ischemia at 80% of the predicted maximal HR Elevated troponin 0.018,0.046,0.064, 0.149 Limited echocardiogram on 07/30/24 showed normal LV function and wall motion, EF 55-60% Left heart catheterization done on 07/31/2024 did not show any target lesions that needed to be intervened upon. She requires aggressive risk factor modification Continue metoprolol 25 mg PO BID and Ranexa 1000 mg BID, Farxiga 10 mg p.o. d aily and Nitroglycerin SL tabs 0.4 mg Q5M PRN Dual antiplatelet therapy with aspirin and Plavix for 12 months recommended per cardiology. Continue Aspirin 81 mg p.o. daily, atorvastatin 80 mg p.o. daily, clopidogrel 75 mg p.o. daily, Isosorbide mononitrate 30 mg PO daily Plavix held for EGD on Monday Telemetry monitoring #. Nausea and vomiting Continue IV Zofran 4mg IVP Q6HR PRN #. History of COPD on home oxygen 2L Continue Nebulised albuterol, Symbicort, Duoneb, Continue supplemental oxygen as required, currently saturating well on RA #.Pain management Dilaudid 1mg IVP Q4HR PRN #. Anxiety Xanax 0.5 mg PO Q6HR PRN for moderate anxiety Xanax 0.25 mg PO Q6HR PRN for mild anxiety #. Hypokalemia, resolved F:0.9 normal saline at 75 ml/hr E:K repleted 20 mEq N:Heart healthy diet A:Ambulatory DVT prophylaxis: Heparin 5000 units SQ every 12 hours GI prophylaxis: Protonix 40 mg p.o. twice daily Monitor vital signs and labs Labs and medication were reviewed. Continue same treatment. Further recommendations as per clinical course of the patient PHYSICAL EXAMINATION: GENERAL: The patient is A&O x3, NAD HEENT: EOMI, Sclerae anicteric, Moist Mucous membranes Neck: Supple, Non tender, No JVD PULMONARY: Equal breath souds B/L, No wheezing, No crackles. CARDIOVASCULAR: S1, S2 present. No murmurs, rubs, or gallops. ABDOMEN: Soft, nontender, nondistended, normoactive bowel sounds. No guarding or rebound tenderness. MUSCULOSKELETAL: No edema, No cyanosis. No clubbing. Normal ROM. Intact peripheral pulses. EXTREMITIES: No cyanosis, clubbing, or pedal edema. NEUROLOGICAL: CN 2-12 grossly intact. No FND Skin: No Rash REVIEW OF SYSTEMS: CONSTITUTIONAL: No fever or chills. CARDIOVASCULAR: No chest pain, palpitations or syncope. PULMONARY: No shortness of breath, no cough, sore throat. GASTROINTESTINAL: No nausea and epigastric pain. : No Dysuria, urgency, frequency. Extremities: No edema. NEUROLOGICAL: No headaches, no weakness, or numbness Dictation was produced using [employer] dictation software. please excuse any grammatical, word or spelling errors. Objective - Vital Signs Vital signs: Vital Signs Temp 97.9 F 08/03/24 20:00 Pulse 90 08/04/24 12:52 Resp 16 08/04/24 12:00 BP 109/57 08/04/24 12:00 Pulse Ox 99 08/04/24 12:00 FiO2 Intake & Output 08/03/24 08/04/24 08/04/24 18:59 06:59 18:59 Intake Total 1620 780 Balance 1620 780 Weight 83.6 kg Intake: Oral 1620 780 Other: Voiding Method Toilet Toilet Toilet # Voids 1 1 # Bowel Movements 1 1 - Labs CBC & Chem 7: 08/04/24 09:08 08/04/24 09:08 Labs: Abnormal Lab Results - Last 24 Hours (Table) 08/03/24 08/04/24 08/04/24 Range/Units 20:24 06:03 09:08 Hgb 11.3 L (11.4-16.0) gm/dL MCHC 30.5 L (31.0-37.0) g/dL RDW 17.3 H (11.5-15.5) % Sodium (137-145) mmol/L Glucose (74-99) mg/dL POC Glucose (mg/dL) 140 H 125 H (70-110) mg/dL 08/04/24 Range/Units 09:08 Hgb (11.4-16.0) gm/dL MCHC (31.0-37.0) g/dL RDW (11.5-15.5) % Sodium 136 L (137-145) mmol/L Glucose 146 H (74-99) mg/dL POC Glucose (mg/dL) (70-110) mg/dL Microbiology - Last 24 Hours (Table) 08/03/24 04:32 Stool Culture - Preliminary Stool
[2024-08-04 16:23] LABS: Glucose,Whole Blood 142 mg/dL (70-110)
[2024-08-04 20:01] LABS: Glucose,Whole Blood 127 mg/dL (70-110)
--- NOTE | 2024-08-04 20:11 | P.PN ---
Subjective Patient seen and evaluated at bedside. Patient doing well, denies nausea or vomiting, tolerating diet Objective - Vital Signs Vital signs: Vital Signs Temp 97.9 F 08/03/24 20:00 Pulse 87 08/04/24 16:00 Resp 16 08/04/24 16:00 BP 96/58 08/04/24 16:00 Pulse Ox 96 08/04/24 16:00 FiO2 Intake & Output 08/04/24 08/04/24 08/05/24 06:59 18:59 06:59 Intake Total 780 222 Balance 780 222 Weight 83.6 kg Intake: Oral 780 222 Other: Voiding Method Toilet Toilet # Voids 1 # Bowel Movements 1 - Exam general no acute distress alert and oriented 3 Cardiovascular regular in rhythm Pulmonary nonlabored breathing Abdomen is soft nontender nondistended no guarding or rebound tenderness surgical incision was clean dry and intact, minimal epigastric pain - Labs CBC & Chem 7: 08/04/24 09:08 08/04/24 09:08 Labs: Abnormal Lab Results - Last 24 Hours (Table) 08/03/24 08/04/24 08/04/24 Range/Units 20:24 06:03 09:08 Hgb 11.3 L (11.4-16.0) gm/dL MCHC 30.5 L (31.0-37.0) g/dL RDW 17.3 H (11.5-15.5) % Sodium (137-145) mmol/L Glucose (74-99) mg/dL POC Glucose (mg/dL) 140 H 125 H (70-110) mg/dL 08/04/24 08/04/24 08/04/24 Range/Units 09:08 16:22 20:00 Hgb (11.4-16.0) gm/dL MCHC (31.0-37.0) g/dL RDW (11.5-15.5) % Sodium 136 L (137-145) mmol/L Glucose 146 H (74-99) mg/dL POC Glucose (mg/dL) 142 H 127 H (70-110) mg/dL Microbiology - Last 24 Hours (Table) 08/03/24 04:32 Stool Culture - Preliminary Stool Assessment and Plan Assessment: 53 yo female s/p ileocectomy epigastric pain -npopmn -egd in am W/ Dr. Portillo Time with Patient: Less than 30
[2024-08-05 06:19] LABS: Glucose,Whole Blood 107 mg/dL (70-110)
[2024-08-05 07:37] LABS: Anisocytosis Slight; HCT 31.9 % (34.0-46.0); HGB 10.1 gm/dL (11.4-16.0); Hypochromasia Moderate; MCH 26.8 pg (25.0-35.0); MCHC 31.5 g/dL (31.0-37.0); Mean Platelet Volume 7.8; Platelet Count 291 k/uL (150-450); RBC 3.76 m/uL (3.80-5.40); RDW 17.4 % (11.5-15.5); WBC 6.3 k/uL (3.8-10.6)
[2024-08-05 08:05] LABS: African American GFR (CKD) >90 (>60 ml/min/1.73 sqM); Anion Gap 5 mmol/L; Blood Urea Nitrogen 10 mg/dL (7-17); Calcium 8.8 mg/dL (8.4-10.2); Carbon Dioxide 26 mmol/L (22-30); Chloride 106 mmol/L (98-107); Glucose 97 mg/dL (74-99); Non-African American GFR(CKD) >90 (>60 ml/min/1.73 sqM); Potassium 4.1 mmol/L (3.5-5.1); Sodium 137 mmol/L (137-145)
[2024-08-05] MEDS: LACTATED RINGERS 1,000 ML IV ONE ×2 (09:56→10:11)
[2024-08-05] MEDS ORDERED: fentaNYL (PF) 50 MCG/ML 2 ML AMP ONE (09:59)
[2024-08-05] MEDS ORDERED: PROPOFOL 10 MG/ML 20 ML VIAL IV ONE (09:59)
[2024-08-05] MEDS ORDERED: LIDOCAINE HCL/PF 20 MG/ML 10 ML AMP ONE (09:59)
[2024-08-05 11:41] LABS: Glucose,Whole Blood 102 mg/dL (70-110)
--- NOTE | 2024-08-05 12:48 | P.OP ---
Date of Procedure: 08/05/24 Preoperative Diagnosis: Epigastric Pain Postoperative Diagnosis: Gastritis Procedure(s) Performed: EGD with Biopsy Anesthesia: other (Sedation) Surgeon: Freeman Portillo Pathology: other (Antral Biopsies) Condition: stable Disposition: PACU Description of Procedure: Informed consent was obtained. The procedure, its risks, benefits, and alternatives were discussed. The patient was placed in the left lateral decubitus position.. The patient was sedated by anesthesia. The endoscope was inserted into the oropharynx and guided under direct vision into the esophagus, stomach, and duodenum. The duodenal bulb and second portion were unremarkable. The scope was withdrawn to the stomach and retroflexed. There was no increased fluid, food or secretions in the upper gastrointestinal tract. There was some gastritis appreciated. Biopsies were obtained for Helicobacter pylori. No erosions or ulcers. The scope was withdrawn to the esophagus. No Barretts or esophagitis. The patient tolerated the procedure very well. The patient was then transferred to the recovery area in good condition. There were no apparent complications.
[2024-08-05 14:03] VITALS: BMI 30.7
--- NOTE | 2024-08-05 14:56 | P.DS ---
Providers Date of admission: 07/29/24 21:13 Expected date of discharge: 08/05/24 Attending physician: Hiro Velez Consults: 07/29/24 21:11 Consult Physician Urgent Consulting Provider: [facility] Consult Reason/Comments: Abnormal EKGs Do you want consulting provider notified?: Yes 07/29/24 21:12 Consult Physician Urgent Consulting Provider: Marga Samuel Consult Reason/Comments: Anastomosis site inflammation Do you want consulting provider notified?: Yes Primary care physician: Kemar Jin MD Hospital Course: Discharge diagnosis: Abdominal pain, s/p ileocecectomy and lysis of adhesions Diarrhea Type II NSTEMI Prior history of stable CAD Nausea and vomiting History of COPD on home oxygen 2L Pain management Anxiety Hypokalemia, resolved Hospital Course: Patient is a 53-year-old female who was just discharged from the hospital on 03/25 for epigastric pain and ideas presented to the ED yesterday with abdominal pain nausea, and vomiting. Patient has an extensive history and the patient has hospitalization for prolonged period of time. She is status post open ileocecectomy for colitis with intramural abscess on 06/14/2024 and on 06/22/2024 she was taken back to the OR for exploratory laparotomy with lysis of adhesions and small bowel resection x 2 and proximal right colon resection for small bowel obstruction secondary to adhesions and inflammation. Patient has had prior hospitalization for ileus in June. After the surgery the patient had switched to high fiber diet. Today patient mentions she developed an upset stomach after which she started vomiting. She had 4-5 episodes of vomiting. She called Dr. Dubois who advised her to take some stool softeners, she did take the stool softener and had a bowel movement but after that her abdominal pain got worse. Abdominal pain is mostly in the left lower quadrant and in the epigastric region. At this point EMS was called and patient arrived to the ER. While in the ER she started having chest pain that was sharp in nature, 10 out of 10 in severity and was radiating down her left arm. She notes the pain resolved after taking 3 nitro's. She mentions that she has had 4 heart attacks in the past but her chest pain did not resolve during those times even with 4-5 nitroglycerin. She also mentions experiencing chills. Denies fever, diarrhea, hematuria, hematochezia, melena. Vitals: T 98.1 F, P 104 bpm, RR 16, BP 181/116, O2 sat 96% on room air. CT abdomen pelvis: Postsurgical changes to the small bowel with some inflammation. There is stool and watery stool within the large bowel. No definitive evidence for small bowel obstruction. No acute abdominal process visualized. EKG: Sinus rhythm with nonspecific ST changes. Repeat EKG: Sinus tachycardia with diffuse ST depressions in anterolateral leads. Labs: WBC 7.4, hemoglobin 12.7, potassium 3.3, BUN 4, AST 51, ALP 167, APTT 22.8->123.6. Troponin: 0.018, 0.046, 0.064. UA:> 1.050 specific gravity, 1+ protein, 6 RBC, 6 squamous epithelial cells, rare budding yeast. Lipid panel: Triglycerides 193, HDL 36.9. In the ED she was treated with a normal saline bolus, Dilaudid, dicyclomine, Ativan, nitroglycerin sublingual tablets and aspirin 324 mg. An echocardiogram 07/30/2024 was done that showed EF 55 to 60%, normal LV function and wall motion. Left heart catheterization was done on 07/31/2024 that did not show any target lesions that needed to be intervened upon. She requires aggressive risk factor modification. Her metoprolol dose was increased to 25 mg twice daily and she was started on Ranexa 1000 mg p.o. every 12 hours. The patient continued to have abdominal pain which is when she was put on show Carafate 1 g p.o. AC 3 times daily and she was scheduled to have an EGD on 08/05/2024. EGD done today shows no erosions or ulcers, no De Oliveira's or esophagitis. There was some gastritis appreciated. Patient will be discharged today and is advised to be compliant with medications. Patient is advised to follow-up with PCP in 1 to 2 days and piggery worker in 1 to 2 weeks and surgeon in 1-2 weeks. Patient seen at bedside today and is feeling good and excited about discharge. Vital signs are reviewed and stable General: nontoxic, no distress, appears at stated age Derm: warm, dry, intact Head: atraumatic, normocephalic, symmetric Eyes: EOMI, anicteric sclera Mouth: no lip lesion, mucus membranes moist Cardiovascular: S1 S2 reg, no murmur Lungs: CTA bilateral, no rhonchi, no rales, no accessory muscle use Abdominal: soft, tender to palpataion in epigastric region Extremities: No cyanosis, clubbing, or pedal edema. Neuro: Alert, Oriented, Gross neurological examination did not reveal any focal deficits. Psych: well appearing, appropriate affect A total of 30 minutes of time were spent preparing this complex discharge summary. Patient was discharged on 08/05/24 at 1335. Attestation: I have personally seen and examined the patient with Resident, reviewed the documentation and participated and agree with the assessment and plan as written. Ravi Bang MD Patient Condition at Discharge: Stable Plan - Discharge Summary Discharge Rx Participant: No New Discharge Prescriptions: New Dapagliflozin Propanediol [Farxiga] 10 mg PO DAILY 14 Days #14 tab Metoprolol Tartrate [Lopressor] 25 mg PO BID 14 Days #30 tab Continue Atorvastatin [Lipitor] 80 mg PO DAILY Ranolazine [Ranexa] 1,000 mg PO BID metFORMIN HCL 1,000 mg PO BID Nitroglycerin Sl Tabs [Nitrostat] 0.4 mg SL Q5M PRN PRN Reason: Chest Pain Aspirin EC [Ecotrin Low Dose] 81 mg PO DAILY Albuterol Inhaler [Ventolin Hfa Inhaler] 2 puff INHALATION RT-QID PRN PRN Reason: Shortness Of Breath Isosorbide Mononitrate ER [Imdur] 30 mg PO DAILY Insulin Lispro [humaLOG Kwikpen] See Protocol SQ AC-TID Dulaglutide [Trulicity] 3 mg SQ WE Ipratropium-Albuterol Nebulize [Duoneb 0.5 mg-3 mg/3 ml Soln] 3 ml INHALATION RT-TID Spiriva Respimat 1.25mcg/Actuation Mist 2 puff INHALATION RT-DAILY Ondansetron Odt [Zofran ODT] 4 mg PO Q8HR PRN PRN Reason: Nausea lisinopriL [Zestril] 10 mg PO DAILY Cholestyramine (with Sugar) [Questran Packet] 4 gm PO BID #60 packet rOPINIRole HCL [Requip] 1 mg PO HS amLODIPine [Norvasc] 10 mg PO DAILY Omeprazole 40 mg PO BID Budesonide/Formoterol Fumarate [Symbicort 160-4.5 Mcg Inhaler] 2 puff INHALATION RT-BID Pregabalin [Lyrica] 150 mg PO TID Clopidogrel [Plavix] 75 mg PO DAILY ALPRAZolam [Xanax] 0.5 mg PO BID PRN PRN Reason: Anxiety Mag Hydrox/Al Hydrox/Simeth [Maalox] 30 ml PO QID PRN 2 Days #180 ml PRN Reason: Heartburn Albuterol Nebulized [Ventolin Nebulized] 2.5 mg INHALATION RT-Q6H PRN PRN Reason: Shortness Of Breath HYDROcodone/APAP 5-325MG [[place] 5-325] 1 tab PO Q6HR PRN 3 Days #12 tab PRN Reason: Pain Discontinued Dapagliflozin Propanediol [Farxiga] 5 mg PO DAILY Metoprolol Tartrate [Lopressor] 12.5 mg PO BID #60 tab Discharge Medication List Atorvastatin [Lipitor] 80 mg PO DAILY 07/08/20 [History] Ranolazine [Ranexa] 1,000 mg PO BID 11/13/21 [History] Albuterol Inhaler [Ventolin Hfa Inhaler] 2 puff INHALATION RT-QID PRN 03/27/23 [History] Aspirin EC [Ecotrin Low Dose] 81 mg PO DAILY 03/27/23 [History] Budesonide/Formoterol Fumarate [Symbicort 160-4.5 Mcg Inhaler] 2 puff INHALATION RT-BID 03/27/23 [History] Clopidogrel [Plavix] 75 mg PO DAILY 03/27/23 [History] Nitroglycerin Sl Tabs [Nitrostat] 0.4 mg SL Q5M PRN 03/27/23 [History] Omeprazole 40 mg PO BID 03/27/23 [History] Pregabalin [Lyrica] 150 mg PO TID 03/27/23 [History] amLODIPine [Norvasc] 10 mg PO DAILY 03/27/23 [History] metFORMIN HCL 1,000 mg PO BID 03/27/23 [History] rOPINIRole HCL [Requip] 1 mg PO HS 03/27/23 [History] ALPRAZolam [Xanax] 0.5 mg PO BID PRN 06/22/23 [History] Dulaglutide [Trulicity] 3 mg SQ WE 03/16/24 [History] Insulin Lispro [humaLOG Kwikpen] See Protocol SQ AC-TID 03/16/24 [History] Ipratropium-Albuterol Nebulize [Duoneb 0.5 mg-3 mg/3 ml Soln] 3 ml INHALATION RT-TID 03/16/24 [History] Isosorbide Mononitrate ER [Imdur] 30 mg PO DAILY 03/16/24 [History] Mag Hydrox/Al Hydrox/Simeth [Maalox] 30 ml PO QID PRN 2 Days #180 ml 05/22/24 [Rx] Spiriva Respimat 1.25mcg/Actuation Mist 2 puff INHALATION RT-DAILY 05/24/24 [History] Albuterol Nebulized [Ventolin Nebulized] 2.5 mg INHALATION RT-Q6H PRN 05/31/24 [History] Ondansetron Odt [Zofran ODT] 4 mg PO Q8HR PRN 05/31/24 [History] lisinopriL [Zestril] 10 mg PO DAILY 05/31/24 [History] Cholestyramine (with Sugar) [Questran Packet] 4 gm PO BID #60 packet 06/03/24 [Rx] HYDROcodone/APAP 5-325MG [[place] 5-325] 1 tab PO Q6HR PRN 3 Days #12 tab 07/26/24 [Rx] Dapagliflozin Propanediol [Farxiga] 10 mg PO DAILY 14 Days #14 tab 08/05/24 [Rx] Metoprolol Tartrate [Lopressor] 25 mg PO BID 14 Days #30 tab 08/05/24 [Rx] Follow up Appointment(s)/Referral(s): Jhonny Thompson MD [Medical Doctor] - 08/12/24 10:00 am (Appointment with Elisabeth MICHEL) Kemar Jin MD [Primary Care Provider] - 1-2 days (Please call to set up appoitment) Freeman Portillo DO [Medical Doctor] - 08/13/24 9:30 am Patient Instructions/Handouts: Gastritis (GEN), Heart Catheterization (DC) Discharge Disposition: HOME SELF-CARE
[2024-08-05 16:20] LABS: Glucose,Whole Blood 129 mg/dL (70-110)
[2024-08-05 16:48] VITALS: BP 101/69; PULSE 76; RESP 19; TEMP 97.8
--- NOTE | 2024-08-08 19:57 | CDI ---
Documentation Clarification Form Date: 08/08/2024 07:50:34 PM From: Nina Brown Phone: Admit Date: 07/29/2024 09:13:00 PM Patient Name: Griselda Mcadams Visit Number: [id number] Discharge Date: 08/05/2024 06:00:00 PM ATTENTION: The Clinical Documentation Specialists (CDI) and [facility] Coding Staff appreciate your assistance in clarifying documentation. Please respond to the clarification below the line at the bottom and electronically sign. The CDI & [facility] Coding staff will review the response and follow-up if needed. Please note: Queries are made part of the Legal Health Record. If you have any questions, please contact the author of this message via ITS. Doctor/Provider: Freeman Portillo The final diagnosis of the pathology report states chronic gastritis. Coding guidelines do not allow coding professionals to code based on pathology results; therefore, clarification is requested. History/risk factors: 53yo F, gastritis, s/pileocecectomy, diarrhea, NSTEMI II, CAD sp CABG & stent w restenosis, COPD on O2, anxiety, hypokalemia,DMII, HTN Clinical Indicators: Therewas noincreased fluid,foodor secretions in the upper gastrointestinal tract. There was some gastritisappreciated. Biopsieswere obtained forHelicobacter pylori. No erosionsorulcers. The scope was withdrawn to the esophagus. NoBarretts or esophagitis. Treatment: Pt will be discharged today and is advised to be compliant with medications. Patient is advised tofollow-upwith PCP in 1 to 2 days and cheese wrapper in 1 to 2 weeks and surgeon in 1-2 weeks. Please clarify if you agree with the pathology report diagnosis of chronic gastritis: [ ] Yes [ ] No [ ] Other (please specify) [ ] Unable to determine (Template Last Revised: November 2020) unable to determine MTDD
== END 2024-08-05 18:00 | disposition home or self-care (01) | DRG 241 ==
LOC: SUPCPDRO 13:47 → EC 13:47 → 3SCARD 21:13 → OBSVTOIN 21:13 → 3SCARD 07-30 00:45
PROVIDERS: ADMIT Hospitalist; ATTEND Hospitalist
PROC: B2131ZZ Fluoroscopy of Multiple Coronary Artery Bypass Grafts using Low Osmolar Contrast (ICD-10-PCS; 2024-07-31)
PROC: B2111ZZ Fluoroscopy of Multiple Coronary Arteries using Low Osmolar Contrast (ICD-10-PCS; 2024-07-31)
PROC: 4A023N7 Measurement of Cardiac Sampling and Pressure, Left Heart, Percutaneous Approach (ICD-10-PCS; principal; 2024-07-31 14:55)
PROC: 0DB78ZX Excision of Stomach, Pylorus, Via Natural or Artificial Opening Endoscopic, Diagnostic (ICD-10-PCS; 2024-08-05)
DX: K29.70 Gastritis, unspecified, without bleeding (principal); I21.A1 Myocardial infarction type 2; E11.9 Type 2 diabetes mellitus without complications; I77.89 Other specified disorders of arteries and arterioles; Z79.4 Long term (current) use of insulin; T82.855A Stenosis of coronary artery stent, initial encounter; I25.810 Atherosclerosis of coronary artery bypass graft(s) without angina pectoris; Z99.81 Dependence on supplemental oxygen; I10 Essential (primary) hypertension; J44.89 Other specified chronic obstructive pulmonary disease; F10.11 Alcohol abuse, in remission; I25.10 Atherosclerotic heart disease of native coronary artery without angina pectoris; E87.6 Hypokalemia; F41.9 Anxiety disorder, unspecified; E78.5 Hyperlipidemia, unspecified; R19.7 Diarrhea, unspecified; K59.00 Constipation, unspecified; F17.210 Nicotine dependence, cigarettes, uncomplicated; Y71.1 Therapeutic (nonsurgical) and rehabilitative cardiovascular devices associated with adverse incidents; Z79.02 Long term (current) use of antithrombotics/antiplatelets; Z90.49 Acquired absence of other specified parts of digestive tract; Z95.1 Presence of aortocoronary bypass graft; Z95.5 Presence of coronary angioplasty implant and graft; I25.2 Old myocardial infarction; Z79.84 Long term (current) use of oral hypoglycemic drugs; Z79.899 Other long term (current) drug therapy; Z79.85 Long-term (current) use of injectable non-insulin antidiabetic drugs; Z79.51 Long term (current) use of inhaled steroids; Z79.82 Long term (current) use of aspirin; Z87.11 Personal history of peptic ulcer disease; Z87.19 Personal history of other diseases of the digestive system
CPT/HCPCS: 36415; 43239; 74177; 80048; 80053; 80061; 81001; 82150; 83605; 83690; 84484; 85025; 85027; 85730; 87045; 87046; 88305; 93308; 93459; 94640; 94760; 96361; 96365; 96366; 96367; 96375; 96376; 99285

== ENCOUNTER 2024-08-19 14:13 | Inpatient (IN) | payer OTHER ==
[2024-08-19] MEDS: SODIUM CHLORIDE 0.9% 1,000 ML IV STA (15:20)
[2024-08-19 15:27] LABS: Anisocytosis Slight; Basophils # (A) 0.1 k/uL (0-0.2); Basophils % (A) 1 %; Eosinophils # (A) 0.5 k/uL (0-0.7); Eosinophils % (A) 4 %; HCT 34.8 % (34.0-46.0); HGB 11.1 gm/dL (11.4-16.0); Hypochromasia Moderate; Lymphocytes # (A) 3.9 k/uL (1.0-4.8); Lymphocytes % (A) 36 %; MCH 26.5 pg (25.0-35.0); MCHC 31.9 g/dL (31.0-37.0); Mean Platelet Volume 7.8; Monocytes # (A) 0.5 k/uL (0-1.0); Monocytes % (A) 5 %; Neutrophils # (A) 5.4 k/uL (1.3-7.7); Neutrophils % (A) 50 %; Platelet Count 374 k/uL (150-450); RBC 4.19 m/uL (3.80-5.40); RDW 17.5 % (11.5-15.5); WBC 10.6 k/uL (3.8-10.6)
[2024-08-19 15:29] LABS: Appearance,Urine Clear (Clear); Bacteria,Urine Rare /hpf; Bilirubin,Urine Negative (Negative); Blood,Urine Negative (Negative); Color,Urine Colorless; Glucose,Urine (UA) Negative (Negative); Ketones,Urine Negative (Negative); Leukocyte Esterase,Urine Moderate (Negative); Nitrite,Urine Negative (Negative); Protein,Urine Negative (Negative); RBC,Urine 2 /hpf (0-5); Specific Gravity,Urine 1.005 (1.001-1.035); Squamous Epithelial Cell,Urine 2 /hpf (0-4); Urobilinogen,Urine <2.0 mg/dL (<2.0); WBC,Urine 7 /hpf (0-5)
[2024-08-19 15:33] LABS: ALT 25 U/L (4-34); AST 32 U/L (14-36); African American GFR (CKD) >90 (>60 ml/min/1.73 sqM); Albumin 4.3 g/dL (3.5-5.0); Alkaline Phosphatase 139 U/L (38-126); Anion Gap 9 mmol/L; Blood Urea Nitrogen 11 mg/dL (7-17); Calcium 9.6 mg/dL (8.4-10.2); Carbon Dioxide 20 mmol/L (22-30); Chloride 111 mmol/L (98-107); Glucose 107 mg/dL (74-99); Lipase 320 U/L (23-300); Non-African American GFR(CKD) >90 (>60 ml/min/1.73 sqM); Sodium 140 mmol/L (137-145); Total Bilirubin 0.5 mg/dL (0.2-1.3); Total Protein 7.4 g/dL (6.3-8.2)
[2024-08-19 16:02] LABS: Potassium 4.4 mmol/L (3.5-5.1)
[2024-08-19] MEDS: ONDANSETRON 4 MG/2 ML VIAL IVP STA (16:51)
[2024-08-19] MEDS: MORPHINE SULFATE 4 MG/ML SYRINGE IVP STA (16:59)
--- NOTE | 2024-08-19 17:14 | XR ---
EXAMINATION TYPE: XR KUB DATE OF EXAM: 08/19/2024 5:06 PM COMPARISON: Numerous prior abdominal radiographs, most recently dated 06/21/2024. CLINICAL INDICATION: Female, 53 years old with history of abd pain; H TECHNIQUE: Multiple AP radiographic views of the abdomen was obtained. FINDINGS: Nonspecific bowel gas pattern. No definite evidence of free air. Partially visualized lower lungs dem onstrate no acute pathology. Levoconvex curvature of the lumbosacral spine centered at L2-L3. No obvi ous radiopaque calculi overlying the renal shadows. Mild colonic stool burden. IMPRESSION: Nonspecific bowel gas pattern without radiographic evidence for acute process. [facility], , 08/19/2024 5:11 PM
[2024-08-19] MEDS: HYDROmorphone 1 MG/ML 1 ML SYRINGE IVP STA (18:04)
--- NOTE | 2024-08-19 18:34 | ED ---
General Adult HPI - General Chief complaint: Nausea/Vomiting/Diarrhea Stated complaint: Abd pain Source: patient, EMS Mode of arrival: EMS - History of Present Illness Initial comments: 53-year-old female with past medical history of asthma, COPD, diabetes, hypertension, bowel resection who presents emergency department with abdominal distention. Patient is coming in from home. States that she went to [facility] on Monday with abdominal pain. CT was performed. She was discharged home on antibiotics. She states she has not taken them because her surgeon told her she should not be on any antibiotics. She does follow with Dr. Portillo. States that her abdominal pain has continued. She has been having significant diarrhea and nausea. She has not held down much food or drink. She denies black or bloody stools. No fevers. No chest pain or difficulty breathing. No other alleviating, precipitating or modifying factors - Related Data Home Medications Medication Instructions Recorded Confirmed Atorvastatin [Lipitor] 80 mg PO DAILY 07/08/20 08/19/24 Ranolazine [Ranexa] 1,000 mg PO BID 11/13/21 08/19/24 Albuterol Inhaler [Ventolin Hfa 2 puff INHALATION RT-QID PRN 03/27/23 08/19/24 Inhaler] Aspirin EC [Ecotrin Low Dose] 81 mg PO DAILY 03/27/23 08/19/24 Budesonide/Formoterol Fumarate 2 puff INHALATION RT-BID 03/27/23 08/19/24 [Symbicort 160-4.5 Mcg Inhaler] Clopidogrel [Plavix] 75 mg PO DAILY 03/27/23 08/19/24 Nitroglycerin Sl Tabs [Nitrostat] 0.4 mg SL Q5M PRN 03/27/23 08/19/24 Omeprazole 40 mg PO BID 03/27/23 08/19/24 Pregabalin [Lyrica] 150 mg PO TID 03/27/23 08/19/24 amLODIPine [Norvasc] 10 mg PO DAILY 03/27/23 08/19/24 metFORMIN HCL 1,000 mg PO BID 03/27/23 08/19/24 rOPINIRole HCL [Requip] 1 mg PO HS 03/27/23 08/19/24 ALPRAZolam [Xanax] 0.5 mg PO BID PRN 06/22/23 08/19/24 Dulaglutide [Trulicity] 3 mg SQ WE 03/16/24 08/19/24 Insulin Lispro [humaLOG Kwikpen] See Protocol SQ AC-TID 03/16/24 08/19/24 Ipratropium-Albuterol Nebulize 3 ml INHALATION RT-TID 03/16/24 08/19/24 [Duoneb 0.5 mg-3 mg/3 ml Soln] Isosorbide Mononitrate ER [Imdur] 30 mg PO DAILY 03/16/24 08/19/24 Spiriva Respimat 1.25mcg/Actuation 2 puff INHALATION RT-DAILY 05/24/24 08/19/24 Mist Albuterol Nebulized [Ventolin 2.5 mg INHALATION RT-Q6H PRN 05/31/24 08/19/24 Nebulized] Ondansetron Odt [Zofran ODT] 4 mg PO Q8HR PRN 05/31/24 08/19/24 lisinopriL [Zestril] 10 mg PO DAILY 05/31/24 08/19/24 Escitalopram [Lexapro] 10 mg PO DAILY 08/19/24 08/19/24 Previous Rx's Medication Instructions Recorded Mag Hydrox/Al Hydrox/Simeth 30 ml PO QID PRN 2 Days #180 ml 05/22/24 [Maalox] Cholestyramine (with Sugar) 4 gm PO BID #60 packet 06/03/24 [Questran Packet] HYDROcodone/APAP 5-325MG [[place] 1 tab PO Q6HR PRN 3 Days #12 tab 07/26/24 5-325] Dapagliflozin Propanediol [Farxiga] 10 mg PO DAILY 14 Days #14 tab 08/05/24 Metoprolol Tartrate [Lopressor] 25 mg PO BID 14 Days #30 tab 08/05/24 Allergies Allergy/AdvReac Type Severity Reaction Status Date / Time No Known Allergies Allergy Verified 08/19/24 18:20 Review of Systems ROS Statement: Those systems with pertinent positive or pertinent negative responses have been documented in the HPI. ROS Other: All systems not noted in ROS Statement are negative. Past Medical History Past Medical History: Asthma, Coronary Artery Disease (CAD), COPD, Diabetes Mellitus, GERD/Reflux, Hypertension, Myocardial Infarction (MD), Osteoarthritis (OA) Additional Past Medical History / Comment(s): DDD, scoliosis, MD x4 Last Myocardial Infarction Date:: 2011 History of Any Multi-Drug Resistant Organisms: None Reported Past Surgical History: Appendectomy, Bowel Resection, Coronary Bypass/CABG, Heart Catheterization With Stent Additional Past Surgical History / Comment(s): seven stents, here for gastroenteritis with abcess (removal 06/21/24), per pt 2 ABD procedures at the same area, Bowel resection with appendectomy 07/05/2024 Past Anesthesia/Blood Transfusion Reactions: No Reported Reaction Date of Last Stent Placement:: 11/2018 Past Psychological History: Anxiety, Bipolar Smoking Status: Current every day smoker Past Alcohol Use History: None Reported Past Drug Use History: Marijuana - Past Family History Mother Family Medical History: Cancer Additional Family Medical History / Comment(s): Ovarian cancer Father Family Medical History: Congestive Heart Failure (CHF) Fmily Family Medical History: No Reported History Course Vital Signs 08/19/24 08/19/24 14:16 16:50 Temperature 98.9 F 98.8 F Pulse Rate 97 91 Respiratory 22 14 Rate Blood Pressure 153/109 146/83 O2 Sat by Pulse 99 97 Oximetry Medical Decision Making - Medical Decision Making Was pt. sent in by a medical professional or institution (, PA, WAREHOUSE ADMINISTRATIVE ASSISTANT, urgent care, hospital, or residential...) When possible be specific @ -[No] Did you speak to anyone other than the patient for history (EMS, parent, family, police, friend...)? What history was obtained from this source @ -[No] Did you review nursing and triage notes (agree or disagree)? Why? @ -[I reviewed and agree with nursing and triage notes] Were old charts reviewed (outside hosp., previous admission, EMS record, old EKG, old radiological studies, urgent care reports/EKG's, residential records)? Report findings @ -The CT report done on August 19 at [facility] which demonstrates mildly prominent distal small bowel loops with scattered air-fluid levels. Ileus versus enteritis. Low-grade partial small bowel obstruction also possible. Differential Diagnosis (chest pain, altered mental status, abdominal pain women, abdominal pain men, vaginal bleeding, weakness, fever, dyspnea, syncope, headache, dizziness, GI bleed, back pain, seizure, CVA, palpatations, mental health, musculoskeletal)? @ -[not applicable] EKG interpreted by me (3pts min.). @ -[As above] X-rays interpreted by me (1pt min.). @ -[None done] CT interpreted by me (1pt min.). @ -[None done] U/S interpreted by me (1pt. min.). @ -[None done] What testing was considered but not performed or refused? (CT, X-rays, U/S, labs)? Why? @ -[None] What meds were considered but not given or refused? Why? @ -[None] Did you discuss the management of the patient with other professionals (professionals i.e. , PA, WAREHOUSE ADMINISTRATIVE ASSISTANT, lab, RT, psych nurse, social media designer, toy trains and accessories salesperson, teacher, risk officer, nurse outreach case manager)? Give summary @ -[No] Was smoking cessation discussed for >3mins.? @ -[No] Was critical care preformed (if so, how long)? @ -[No] Were there social determinants of health that impacted care today? How? (Homelessness, low income, unemployed, alcoholism, drug addiction, mishra sportation, low edu. Level, literacy, decrease access to med. care, mcc, rehab)? @ -[No] Was there de-escalation of care discussed even if they declined (Discuss DNR or withdrawal of care, Hospice)? DNR status @ -[No] What co-morbidities impacted this encounter? (DM, HTN, Smoking, COPD, CAD, Canc er, CVA, ARF, Chemo, Hep., AIDS, mental health diagnosis, sleep apnea, morbid obesity)? @ -[None] Was patient admitted / discharged? Hospital course, mention meds given and route, prescriptions, significant lab abnormalities, going to OR and other pertinent info. @ -[hospital course] Undiagnosed new problem with uncertain prognosis? @ -[No] Drug Therapy requiring intensive monitoring for toxicity (Heparin, Nitro, Insulin, Cardizem)? @ -[No] Were any procedures done? @ -[No] Diagnosis/symptom? @ -[default] Acute, or Chronic, or Acute on Chronic? @ -[default] Uncomplicated (without systemic symptoms) or Complicated (systemic symptoms)? @ -[default] Side effects of treatment? @ -[No] Exacerbation, Progression, or Severe Exacerbation? @ -[No] Poses a threat to life or bodily function? How? (Chest pain, USA, MD, pneumonia, PE, COPD, DKA, ARF, appy, cholecystitis, CVA, Diverticulitis, Homicidal, Suicidal, threat to staff... and all critical care pts) @ -[No] - Lab Data Result diagrams: 08/19/24 15:17 08/19/24 15:17 Lab Results 08/19/24 08/19/24 08/19/24 Range/Units 15:17 15:17 15:17 WBC 10.6 (3.8-10.6) k/uL RBC 4.19 (3.80-5.40) m/uL Hgb 11.1 L (11.4-16.0) gm/dL Hct 34.8 (34.0-46.0) % MCV 83.0 (80.0-100.0) fL MCH 26.5 (25.0-35.0) pg MCHC 31.9 (31.0-37.0) g/dL RDW 17.5 H (11.5-15.5) % Plt Count 374 (150-450) k/uL MPV 7.8 Neutrophils % 50 % Lymphocytes % 36 % Monocytes % 5 % Eosinophils % 4 % Basophils % 1 % Neutrophils # 5.4 (1.3-7.7) k/uL Lymphocytes # 3.9 (1.0-4.8) k/uL Monocytes # 0.5 (0-1.0) k/uL Eosinophils # 0.5 (0-0.7) k/uL Basophils # 0.1 (0-0.2) k/uL Hypochromasia Moderate Anisocytosis Slight Sodium 140 (137-145) mmol/L Potassium 4.4 (3.5-5.1) mmol/L Chloride 111 H (98-107) mmol/L Carbon Dioxide 20 L (22-30) mmol/L Anion Gap 9 mmol/L BUN 11 (7-17) mg/dL Creatinine 0.64 (0.52-1.04) mg/dL Est GFR (CKD-EPI)AfAm >90 (>60 ml/min/1.73 sqM) Est GFR (CKD-EPI)NonAf >90 (>60 ml/min/1.73 sqM) Glucose 107 H (74-99) mg/dL Plasma Lactic Acid Sarthak (0.7-2.0) mmol/L Calcium 9.6 (8.4-10.2) mg/dL Total Bilirubin 0.5 (0.2-1.3) mg/dL AST 32 (14-36) U/L ALT 25 (4-34) U/L Alkaline Phosphatase 139 H (38-126) U/L Total Protein 7.4 (6.3-8.2) g/dL Albumin 4.3 (3.5-5.0) g/dL Lipase 320 H (23-300) U/L Urine Color Colorless Urine Appearance Clear (Clear) Urine pH 6.0 (5.0-8.0) Ur Specific [place] 1.005 (1.001-1.035) Urine Protein Negative (Negative) Urine Glucose (UA) Negative (Negative) Urine Ketones Negative (Negative) Urine Blood Negative (Negative) Urine Nitrite Negative (Negative) Urine Bilirubin Negative (Negative) Urine Urobilinogen <2.0 (<2.0) mg/dL Ur Leukocyte Esterase Moderate H (Negative) Urine RBC 2 (0-5) /hpf Urine WBC 7 H (0-5) /hpf Ur Squamous Epith Cells 2 (0-4) /hpf Urine Bacteria Rare H (None) /hpf 08/19/24 Range/Units 15:17 WBC (3.8-10.6) k/uL RBC (3.80-5.40) m/uL Hgb (11.4-16.0) gm/dL Hct (34.0-46.0) % MCV (80.0-100.0) fL MCH (25.0-35.0) pg MCHC (31.0-37.0) g/dL RDW (11.5-15.5) % Plt Count (150-450) k/uL MPV Neutrophils % % Lymphocytes % % Monocytes % % Eosinophils % % Basophils % % Neutrophils # (1.3-7.7) k/uL Lymphocytes # (1.0-4.8) k/uL Monocytes # (0-1.0) k/uL Eosinophils # (0-0.7) k/uL Basophils # (0-0.2) k/uL Hypochromasia Anisocytosis Sodium (137-145) mmol/L Potassium (3.5-5.1) mmol/L Chloride (98-107) mmol/L Carbon Dioxide (22-30) mmol/L Anion Gap mmol/L BUN (7-17) mg/dL Creatinine (0.52-1.04) mg/dL Est GFR (CKD-EPI)AfAm (>60 ml/min/1.73 sqM) Est GFR (CKD-EPI)NonAf (>60 ml/min/1.73 sqM) Glucose (74-99) mg/dL Plasma Lactic Acid Sarthak 1.4 (0.7-2.0) mmol/L Calcium (8.4-10.2) mg/dL Total Bilirubin (0.2-1.3) mg/dL AST (14-36) U/L ALT (4-34) U/L Alkaline Phosphatase (38-126) U/L Total Protein (6.3-8.2) g/dL Albumin (3.5-5.0) g/dL Lipase (23-300) U/L Urine Color Urine Appearance (Clear) Urine pH (5.0-8.0) Ur Specific [place] (1.001-1.035) Urine Protein (Negative) Urine Glucose (UA) (Negative) Urine Ketones (Negative) Urine Blood (Negative) Urine Nitrite (Negative) Urine Bilirubin (Negative) Urine Urobilinogen (<2.0) mg/dL Ur Leukocyte Esterase (Negative) Urine RBC (0-5) /hpf Urine WBC (0-5) /hpf Ur Squamous Epith Cells (0-4) /hpf Urine Bacteria (None) /hpf Disposition Clinical Impression: Abdominal pain, Ileus Disposition: ADMITTED IP TO THIS [facility] Condition: Stable Is patient prescribed a controlled substance at d/c from ED?: No Referrals: Kemar Jin MD [Primary Care Provider] - 1-2 days Time of Disposition: 18:39 Decision to Admit Reason: Admit from EC Decision Date: 08/19/24 Decision Time: 18:39
[2024-08-19] MEDS ORDERED: NALOXONE 0.4 MG/ML 1 ML VIAL IV PRN (18:39)
[2024-08-19] MEDS: SODIUM CHLORIDE 0.9% 1,000 ML IV SCH (19:52)
[2024-08-19] MEDS: HYDROmorphone 2 MG TAB PO PRN (21:26)
[2024-08-20] MEDS: ALPRAZolam 0.5 MG TAB PO PRN (01:59)
[2024-08-20] MEDS: PREGABALIN 75 MG CAP PO SCH (01:59)
[2024-08-20 08:41] LABS: Basophils # (A) 0.04 X 10*3/uL (0.00-0.10); Basophils % (A) 0.6 %; Eosinophils # (A) 0.35 X 10*3/uL (0.04-0.35); Eosinophils % (A) 5.3 %; HCT 32.5 % (37.2-46.3); HGB 10.1 g/dL (12.0-15.0); Lymphocytes # (A) 3.05 X 10*3/uL (0.90-5.00); Lymphocytes % (A) 46.4 %; MCHC 31.1 g/dL (32.0-37.0); MCV 83.8 FL (80.0-97.0); Mean Platelet Volume 10.2 FL (9.5-12.2); Monocytes # (A) 0.54 X 10*3/uL (0.20-1.00); Monocytes % (A) 8.2 %; NRBC Per 100 WBC 0 X 10*3/uL (0.00-0.01); Neutrophils # (A) 2.53 X 10*3/uL (1.80-7.70); Neutrophils % (A) 38.4 %; Platelet Count 327 X 10*3/uL (140-440); RBC 3.88 X 10*6/uL (4.10-5.20); WBC 6.58 X 10*3/uL (4.50-10.00)
[2024-08-20 08:54] LABS: Blood Urea Nitrogen 8.1 mg/dL (9.0-27.0); Carbon Dioxide 19.1 mmol/L (21.6-31.8); Chloride 103 mmol/L (96-109); Glucose 124 mg/dL (70-110); Potassium 4.3 mmol/L (3.5-5.5); Sodium 143 mmol/L (135-145)
[2024-08-20 08:55] LABS: Calcium 8.9 mg/dL (8.7-10.3)
[2024-08-20] MEDS ORDERED: ALBUTEROL NEBULIZED 2.5 MG/3 ML INHALATION PRN (12:19)
[2024-08-20] MEDS ORDERED: ALPRAZolam 0.5 MG TAB PO PRN (12:19)
[2024-08-20] MEDS: IPRATROPIUM-ALBUTEROL 3 ML NEB INHALATION SCH (15:01)
--- NOTE | 2024-08-20 15:05 | P.GSCN ---
History of Present Illness Consult date: 08/20/24 History of present illness: CHIEF COMPLAINT: Abdominal pain HISTORY OF PRESENT ILLNESS: This is a 53-year-old female who presented to the hospital with complaints of abdominal pain with nausea and diarrhea. Patient reports symptoms had started on Monday she initially went into [facility] and she reports that she had a CAT scan done there and was told she had some type of infection and to start antibiotics. She clarified this with her surgeon and the antibiotics were not started. Patient reports the pain is across the upper abdomen and on the sides of her abdomen. Patient reports she has been having a significant amount of diarrhea. Denies any blood in the stools. Her KUB x-ray had reported mild stool burden. Her white count is normal and she denies any fever chills or sweats. Patient with a known surgical history of open ileocecectomy for colitis with intramural abscess on 06/14/2024 and on 06/22/2024 was taken back to the OR for exploratory laparotomy with lysis of adhesions and small bowel resection x 2 and proximal right colon resection for small bowel obstruction secondary to adhesions and inflammation. Patient has had multiple hospitalizations with abdominal ileus's and had seroma that was managed conservatively. Patient has had been on multiple antibiotics over the last few months. During her last hospitalization patient did have a EGD that revealed gastritis. PAST MEDICAL HISTORY: See below PAST SURGICAL HISTORY: See below MEDICATIONS: See below ALLERGIES: See below SOCIAL HISTORY: No illicit drug use. REVIEW OF SYSTEMS: CONSTITUTIONAL: Denies fever or chills. HEENT: Denies blurred vision, vision changes, or eye pain. Denies hemoptysis CARDIOVASCULAR: Denies chest pain or pressure. RESPIRATORY: No shortness of breath. GASTROINTESTINAL: See HPI for pertinent findings HEMATOLOGIC: Denies bleeding disorders. GENITOURINARY: Denies any blood in urine or increased urinary frequency. SKIN: Denies pruitis. Denies rash. PHYSICAL EXAM: VITAL SIGNS: Reviewed GENERAL: Well-developed in no acute distress. HEENT: No sclera icterus. Extraocular movements grossly intact. Moist buccal mucosa. Head is atraumatic, normocephalic. No nasal drainage. ABDOMEN: Soft. Nondistended. Tenderness to palpation across the upper abdomen and bilateral sides of the abdomen. Midline incision site is healed. NEUROLOGIC: Alert and oriented. Cranial nerves II through XII grossly intact. LABORATORY DATA: WBC 6.58 Hgb is down from 11.1-10.1 platelets 327 Sodium is 143 potassium 4.3 creatinine 0.6 Lactic acid 1.4 AST ALT normal total bili 0.5 alk phos 139 lipase 320 IMAGING: KUB x-ray reports nonspecific bowel gas pattern without x-ray evidence for acute process. Mild colonic stool burden noted. ASSESSMENT: 1. Abdominal pain with nausea and diarrhea. Patient has been on multiple antibiotics over the last few months PLAN: -Check stool for C. difficile -Continue clear liquid diet -Continue IV fluids -Continue supportive care Physician [employer] note has been reviewed by physician. Signing provider agrees with the documented findings, assessment, and plan of care. Attestation Patient seen and examined at bedside. Complaining of diarrhea over the past few days. I did discuss this with her over the phone as she called the answering service. Currently, complaining of some abdominal pain in the upper and bilateral flanks. States that she had 4 diarrhea episodes today. Recommending check stool for C. difficile. Continue clear liquid diet. Continue IV fluid hydration. No leukocytosis at this time. Electrolytes appear overall normal. No lactic acidosis. Marga Samuel, Past Medical History Past Medical History: Asthma, Coronary Artery Disease (CAD), COPD, Diabetes Mellitus, GERD/Reflux, Hypertension, Myocardial Infarction ([place]), Osteoarthritis (OA) Additional Past Medical History / Comment(s): scoliosis, [place] x4 Last Myocardial Infarction Date:: 2011 History of Any Multi-Drug Resistant Organisms: None Reported Past Surgical History: Appendectomy, Bowel Resection, Coronary Bypass/CABG, Heart Catheterization With Stent Additional Past Surgical History / Comment(s): seven stents, Bowel resection with appendectomy 07/05/2024, second bowel resection on 07/18/24 Past Anesthesia/Blood Transfusion Reactions: No Reported Reaction Date of Last Stent Placement:: 11/2018 Past Psychological History: Anxiety, Bipolar Smoking Status: Current every day smoker Past Alcohol Use History: None Reported Additional Past Alcohol Use History / Comment(s): 1 ppd Past Drug Use History: Marijuana Additional Drug Use History / Comment(s): currently smokes 1 joint per day - Past Family History Mother Family Medical History: Cancer Additional Family Medical History / Comment(s): Ovarian cancer Father Family Medical History: Congestive Heart Failure (CHF) Fmily Family Medical History: No Reported History Medications and Allergies Home Medications Medication Instructions Recorded Confirmed Type Atorvastatin [Lipitor] 80 mg PO DAILY 07/08/20 08/19/24 History Ranolazine [Ranexa] 1,000 mg PO BID 11/13/21 08/19/24 History Albuterol Inhaler [Ventolin Hfa 2 puff INHALATION RT-QID PRN 03/27/23 08/19/24 History Inhaler] Aspirin EC [Ecotrin Low Dose] 81 mg PO DAILY 03/27/23 08/19/24 History Budesonide/Formoterol Fumarate 2 puff INHALATION RT-BID 03/27/23 08/19/24 History [Symbicort 160-4.5 Mcg Inhaler] Clopidogrel [Plavix] 75 mg PO DAILY 03/27/23 08/19/24 History Nitroglycerin Sl Tabs [Nitrostat] 0.4 mg SL Q5M PRN 03/27/23 08/19/24 History Omeprazole 40 mg PO BID 03/27/23 08/19/24 History Pregabalin [Lyrica] 150 mg PO TID 03/27/23 08/19/24 History amLODIPine [Norvasc] 10 mg PO DAILY 03/27/23 08/19/24 History metFORMIN HCL 1,000 mg PO BID 03/27/23 08/19/24 History rOPINIRole HCL [Requip] 1 mg PO HS 03/27/23 08/19/24 History ALPRAZolam [Xanax] 0.5 mg PO BID PRN 06/22/23 08/19/24 History Dulaglutide [Trulicity] 3 mg SQ WE 03/16/24 08/19/24 History Insulin Lispro [humaLOG Kwikpen] See Protocol SQ AC-TID 03/16/24 08/19/24 History Ipratropium-Albuterol Nebulize 3 ml INHALATION RT-TID 03/16/24 08/19/24 History [Duoneb 0.5 mg-3 mg/3 ml Soln] Isosorbide Mononitrate ER [Imdur] 30 mg PO DAILY 03/16/24 08/19/24 History Mag Hydrox/Al Hydrox/Simeth 30 ml PO QID PRN 2 Days #180 ml 05/22/24 08/19/24 Rx [Maalox] Spiriva Respimat 1.25mcg/Actuation 2 puff INHALATION RT-DAILY 05/24/24 08/19/24 History Mist Albuterol Nebulized [Ventolin 2.5 mg INHALATION RT-Q6H PRN 05/31/24 08/19/24 History Nebulized] Ondansetron Odt [Zofran ODT] 4 mg PO Q8HR PRN 05/31/24 08/19/24 History lisinopriL [Zestril] 10 mg PO DAILY 05/31/24 08/19/24 History Cholestyramine (with Sugar) 4 gm PO BID #60 packet 06/03/24 08/19/24 Rx [Questran Packet] HYDROcodone/APAP 5-325MG [[place] 1 tab PO Q6HR PRN 3 Days #12 tab 07/26/24 08/19/24 Rx 5-325] Dapagliflozin Propanediol [Farxiga] 10 mg PO DAILY 14 Days #14 tab 08/05/24 08/19/24 Rx Metoprolol Tartrate [Lopressor] 25 mg PO BID 14 Days #30 tab 08/05/24 08/19/24 Rx Escitalopram [Lexapro] 10 mg PO DAILY 08/19/24 08/19/24 History Allergies Allergy/AdvReac Type Severity Reaction Status Date / Time No Known Allergies Allergy Verified 08/19/24 18:20 Surgical - Exam Osteopathic Statement: *. No significant issues noted on an osteopathic structural exam other than those noted in the History and Physical/Consult. Vital Signs Temp Pulse Resp BP Pulse Ox 98.9 F 97 22 153/109 99 08/19/24 14:16 08/19/24 14:16 08/19/24 14:16 08/19/24 14:16 08/19/24 14:16 Results - Labs 08/20/24 04:18 08/20/24 04:18 Abnormal Lab Results - Last 24 Hours (Table) 08/19/24 08/19/24 08/19/24 Range/Units 15:17 15:17 15:17 RBC (4.10-5.20) X 10*6/uL Hgb 11.1 L (11.4-16.0) gm/dL Hct (37.2-46.3) % MCH (27.0-32.0) pg MCHC (32.0-37.0) g/dL RDW 17.5 H (11.5-15.5) % Immature Gran # (0.00-0.04) X 10*3/uL Chloride 111 H (98-107) mmol/L Carbon Dioxide 20 L (22-30) mmol/L Anion Gap (4.00-12.00) mmol/L BUN (9.0-27.0) mg/dL Glucose 107 H (74-99) mg/dL Alkaline Phosphatase 139 H (38-126) U/L Lipase 320 H (23-300) U/L Ur Leukocyte Esterase Moderate H (Negative) Urine WBC 7 H (0-5) /hpf Urine Bacteria Rare H (None) /hpf 08/20/24 08/20/24 Range/Units 04:18 04:18 RBC 3.88 L (4.10-5.20) X 10*6/uL Hgb 10.1 L (11.4-16.0) gm/dL Hct 32.5 L (37.2-46.3) % MCH 26.0 L (27.0-32.0) pg MCHC 31.1 L (32.0-37.0) g/dL RDW 18.0 H (11.5-15.5) % Immature Gran # 0.07 H (0.00-0.04) X 10*3/uL Chloride (98-107) mmol/L Carbon Dioxide 19.1 L (22-30) mmol/L Anion Gap 20.90 H (4.00-12.00) mmol/L BUN 8.1 L (9.0-27.0) mg/dL Glucose 124 H (74-99) mg/dL Alkaline Phosphatase (38-126) U/L Lipase (23-300) U/L Ur Leukocyte Esterase (Negative) Urine WBC (0-5) /hpf Urine Bacteria (None) /hpf Diabetes panel 08/19/24 08/20/24 Range/Units 15:17 04:18 Sodium 140 143 (137-145) mmol/L Potassium 4.4 4.3 (3.5-5.1) mmol/L Chloride 111 H 103 (98-107) mmol/L Carbon Dioxide 20 L 19.1 L (22-30) mmol/L BUN 11 8.1 L (7-17) mg/dL Creatinine 0.64 0.6 (0.52-1.04) mg/dL Glucose 107 H 124 H (74-99) mg/dL Calcium 9.6 8.9 (8.4-10.2) mg/dL AST 32 (14-36) U/L ALT 25 (4-34) U/L Alkaline Phosphatase 139 H (38-126) U/L Total Protein 7.4 (6.3-8.2) g/dL Albumin 4.3 (3.5-5.0) g/dL Calcium panel 08/19/24 08/20/24 Range/Units 15:17 04:18 Calcium 9.6 8.9 (8.4-10.2) mg/dL Albumin 4.3 (3.5-5.0) g/dL Pituitary panel 08/19/24 08/20/24 Range/Units 15:17 04:18 Sodium 140 143 (137-145) mmol/L Potassium 4.4 4.3 (3.5-5.1) mmol/L Chloride 111 H 103 (98-107) mmol/L Carbon Dioxide 20 L 19.1 L (22-30) mmol/L BUN 11 8.1 L (7-17) mg/dL Creatinine 0.64 0.6 (0.52-1.04) mg/dL Glucose 107 H 124 H (74-99) mg/dL Calcium 9.6 8.9 (8.4-10.2) mg/dL Adrenal panel 08/19/24 08/20/24 Range/Units 15:17 04:18 Sodium 140 143 (137-145) mmol/L Potassium 4.4 4.3 (3.5-5.1) mmol/L Chloride 111 H 103 (98-107) mmol/L Carbon Dioxide 20 L 19.1 L (22-30) mmol/L BUN 11 8.1 L (7-17) mg/dL Creatinine 0.64 0.6 (0.52-1.04) mg/dL Glucose 107 H 124 H (74-99) mg/dL Calcium 9.6 8.9 (8.4-10.2) mg/dL Total Bilirubin 0.5 (0.2-1.3) mg/dL AST 32 (14-36) U/L ALT 25 (4-34) U/L Alkaline Phosphatase 139 H (38-126) U/L Total Protein 7.4 (6.3-8.2) g/dL Albumin 4.3 (3.5-5.0) g/dL
[2024-08-20 15:29] VITALS: BMI 29.9
[2024-08-20] MEDS: HEPARIN SODIUM,PORCINE 5,000 UNIT/ML 1 ML VIAL SQ SCH (15:45)
[2024-08-20] MEDS: SYMBICORT 160-4.5 MCG INHALER INHALATION SCH (19:11)
[2024-08-20] MEDS: METOPROLOL TARTRATE 25 MG TAB PO SCH (20:49)
[2024-08-20] MEDS: PANTOPRAZOLE 40 MG TABLET PO SCH (20:49)
[2024-08-20] MEDS: RANOLAZINE 500 MG TAB.ER.12H PO SCH (20:49)
[2024-08-20] MEDS: HYDROmorphone 0.5 MG/0.5 ML SYRINGE IVP PRN (21:39)
[2024-08-20] MEDS: ONDANSETRON 4 MG/2 ML VIAL IVP PRN (21:39)
[2024-08-21] MEDS ORDERED: MIST INHALATION SCH (08:00)
[2024-08-21] MEDS ORDERED: SPIRIVA RESPIMAT INHALATION SCH (08:00)
[2024-08-21] MEDS: ATORVASTATIN 80 MG TAB PO SCH (08:11)
[2024-08-21] MEDS: ISOSORBIDE MONONITRATE ER 30 MG TAB.ER.24H PO SCH (08:11)
[2024-08-21] MEDS: ESCITALOPRAM 10 MG TAB PO SCH (08:11)
[2024-08-21] MEDS: PATIENT'S OWN (Dulaglutide [Trulicity] 3 MG/0.5 ML Each) SQ SCH (08:17)
--- NOTE | 2024-08-21 09:53 | P.PN ---
Subjective Progress Note Date: 08/21/24 Patient seen and examined at bedside. Tolerating clear liquid diet. States pain is better controlled. Stool sample that was sent for C. difficile is negative. Objective - Vital Signs Vital signs: Vital Signs Temp 98.1 F 08/21/24 07:04 Pulse 76 08/21/24 07:37 Resp 18 08/21/24 07:04 BP 132/75 08/21/24 07:04 Pulse Ox 96 08/21/24 07:04 FiO2 Intake & Output 08/20/24 08/21/24 08/21/24 18:59 06:59 18:59 Intake Total 1560 1570 Balance 1560 1570 Weight 81.647 kg Intake: Intake, IV Titration 1560 Amount Sodium Chloride 0.9% 1, 1560 000 ml @ 130 mls/hr IV . [facility] Rx#:[id number] Oral 1570 Other: Voiding Method Toilet Toilet Diaper Diaper - Constitutional General appearance: Present: cooperative, no acute distress - Gastrointestinal Gastrointestinal Comment(s): Soft, no significant tenderness to palpation, nondistended, no rebound or gu arding - Psychiatric Psychiatric: Present: A&O x's 3 - Labs CBC & Chem 7: 08/20/24 04:18 08/20/24 04:18 Assessment and Plan Plan: 53-year-old female with ileus. Well-known to the practice. C. difficile negative. Recommended further stool sampling. Will begin cholestyramine. Unclear etiology of continued ileus and concern for gastroenteritis. Patient has consulted with dietitian on previous admission. She states that she is continuing with dietitian recommendations. No plan for acute surgical intervention.
[2024-08-21] MEDS: CHOLESTYRAMINE (WITH SUGAR) 4 GM PACKET PO SCH (11:17)
--- NOTE | 2024-08-21 11:57 | P.HPIM ---
History of Present Illness H&P Date: 08/20/24 Chief Complaint: Abdominal pain Patient is a 53-year-old female with a past medical history of coronary artery disease status post CABG, history of stent placement, recent history of bowel resection with appendectomy and second bowel resection on 07/18/2024, hypertension, diabetes type 2, COPD, history of [place], anxiety/bipolar disorder and currently everyday smoker and marijuana use. Patient presents to ER with complaints of abdominal pain associate with nausea vomiting and diarrhea. Patient states that she has symptoms started since Monday. She went to [facility] initially where she had a CT of the abdomen pelvis was done and was told she has infection and started on antibiotics. Patient has been having pain across the upper abdomen and on the sides of her abdomen. Patient is also having significant diarrhea. Denied any blood in the stool. Patient has recent multiple hospital admissions due to abdominal pain and incisional wound infection. Patient had recent EGD showed gastritis. KUB x-ray showed mild stool burden. Laboratory data showed WBC 10.6 hemoglobin 11.1 and platelets 374, sodium 140 potassium 4.4 chloride 109 bicarb is 20 BUN 11 and creatinine 0.64 and blood sugar 107 lactic acid 1.4 and alk phos 139 and lipase level 320. Urinalysis is negative infection Review of Systems Constitutional: Patient denies any fever or chills . No generalized weakness or weight loss. Abdomen: Patient is complaining of abdominal pain and nausea and diarrhea. Cardiovascular: Patient denies any chest pain or short of breath no palpitations. Respiratory: patient denied any cough or sputum production. No shortness of breath Neurologic: Patient denied any numbness or tingling. no headache. Musculoskeletal: Patient denies any complaints of joint swelling or deformity. Skin: Negative Psychiatric: Negative Endocrine: No heat or cold intolerance. No recent weight gain. Genitourinary: No dysuria or hematuria. All other 14 point ROS negative except the above Past Medical History Past Medical History: Asthma, Coronary Artery Disease (CAD), COPD, Diabetes Mellitus, GERD/Reflux, Hypertension, Myocardial Infarction ([place]), Osteoarthritis (OA) Additional Past Medical History / Comment(s): scoliosis, [place] x4 Last Myocardial Infarction Date:: 2011 History of Any Multi-Drug Resistant Organisms: None Reported Past Surgical History: Appendectomy, Bowel Resection, Coronary Bypass/CABG, Heart Catheterization With Stent Additional Past Surgical History / Comment(s): seven stents, Bowel resection with appendectomy 07/05/2024, second bowel resection on 07/18/24 Past Anesthesia/Blood Transfusion Reactions: No Reported Reaction Date of Last Stent Placement:: 11/2018 Past Psychological History: Anxiety, Bipolar Smoking Status: Current every day smoker Past Alcohol Use History: None Reported Additional Past Alcohol Use History / Comment(s): 1 ppd Past Drug Use History: Marijuana Additional Drug Use History / Comment(s): currently smokes 1 joint per day - Past Family History Mother Family Medical History: Cancer Additional Family Medical History / Comment(s): Ovarian cancer Father Family Medical History: Congestive Heart Failure (CHF) Fmily Family Medical History: No Reported History Medications and Allergies Home Medications Medication Instructions Recorded Confirmed Type Atorvastatin [Lipitor] 80 mg PO DAILY 07/08/20 08/19/24 History Ranolazine [Ranexa] 1,000 mg PO BID 11/13/21 08/19/24 History Albuterol Inhaler [Ventolin Hfa 2 puff INHALATION RT-QID PRN 03/27/23 08/19/24 History Inhaler] Aspirin EC [Ecotrin Low Dose] 81 mg PO DAILY 03/27/23 08/19/24 History Budesonide/Formoterol Fumarate 2 puff INHALATION RT-BID 03/27/23 08/19/24 H istory [Symbicort 160-4.5 Mcg Inhaler] Clopidogrel [Plavix] 75 mg PO DAILY 03/27/23 08/19/24 History Nitroglycerin Sl Tabs [Nitrostat] 0.4 mg SL Q5M PRN 03/27/23 08/19/24 History Omeprazole 40 mg PO BID 03/27/23 08/19/24 History Pregabalin [Lyrica] 150 mg PO TID 03/27/23 08/19/24 History amLODIPine [Norvasc] 10 mg PO DAILY 03/27/23 08/19/24 History metFORMIN HCL 1,000 mg PO BID 03/27/23 08/19/24 History rOPINIRole HCL [Requip] 1 mg PO HS 03/27/23 08/19/24 History ALPRAZolam [Xanax] 0.5 mg PO BID PRN 06/22/23 08/19/24 History Dulaglutide [Trulicity] 3 mg SQ WE 03/16/24 08/19/24 History Insulin Lispro [humaLOG Kwikpen] See Protocol SQ AC-TID 03/16/24 08/19/24 History Ipratropium-Albuterol Nebulize 3 ml INHALATION RT-TID 03/16/24 08/19/24 History [Duoneb 0.5 mg-3 mg/3 ml Soln] Isosorbide Mononitrate ER [Imdur] 30 mg PO DAILY 03/16/24 08/19/24 History Mag Hydrox/Al Hydrox/Simeth 30 ml PO QID PRN 2 Days #180 ml 05/22/24 08/19/24 Rx [Maalox] Spiriva Respimat 1.25mcg/Actuation 2 puff INHALATION RT-DAILY 05/24/24 08/19/24 History Mist Albuterol Nebulized [Ventolin 2.5 mg INHALATION RT-Q6H PRN 05/31/24 08/19/24 History Nebulized] Ondansetron Odt [Zofran ODT] 4 mg PO Q8HR PRN 05/31/24 08/19/24 History lisinopriL [Zestril] 10 mg PO DAILY 05/31/24 08/19/24 History Cholestyramine (with Sugar) 4 gm PO BID #60 packet 06/03/24 08/19/24 Rx [Questran Packet] HYDROcodone/APAP 5-325MG [[place] 1 tab PO Q6HR PRN 3 Days #12 tab 07/26/24 08/19/24 Rx 5-325] Dapagliflozin Propanediol [Farxiga] 10 mg PO DAILY 14 Days #14 tab 08/05/24 08/19/24 Rx Metoprolol Tartrate [Lopressor] 25 mg PO BID 14 Days #30 tab 08/05/24 08/19/24 Rx Escitalopram [Lexapro] 10 mg PO DAILY 08/19/24 08/19/24 History Allergies Allergy/AdvReac Type Severity Reaction Status Date / Time No Known Allergies Allergy Verified 08/19/24 18:20 Physical Exam Vitals: Vital Signs Temp Pulse Pulse Resp BP BP Pulse Ox 08/20/24 07:10 97.7 F 76 17 138/87 97 08/20/24 01:42 98.0 F 78 14 118/81 95 08/19/24 21:24 98.2 F 90 18 129/81 95 08/19/24 20:00 98.6 F 96 12 107/65 94 L 08/19/24 19:47 97.9 F 97 18 125/85 95 08/19/24 18:46 98.9 F 82 16 131/66 95 08/19/24 16:50 98.8 F 91 14 146/83 97 08/19/24 14:16 98.9 F 97 22 153/109 99 Intake and Output 08/19/24 08/20/24 08/20/24 22:59 06:59 14:59 Intake Total 1080 Balance 1080 Intake: Oral 1080 Other: Voiding Method Toilet Toilet Diaper Diaper Weight 81.647 kg PHYSICAL EXAMINATION: Patient is lying in the bed comfortably, no acute distress, awake alert and oriented.. HEENT: Normocephalic. Neck is supple. Pupils reactive. Nostrils clear. Oral cavity is moist. Neck reveals no JVD, carotid bruits, or thyromegaly. CHEST EXAMINATION: Trachea is central. Symmetrical expansion. Bibasilar diminished sounds otherwise lung yeung clear to auscultation and percussion. CARDIAC: Normal S1, S2 with no gallops. No murmurs ABDOMEN: Soft. Mild lower abdominal tenderness. No guarding or rigidity. Bowel sounds normal. No organomegaly. No abdominal bruits. Extremities: reveal no edema. No clubbing or cyanosis Neurologically awake, alert, oriented x3 with well-coordinated movements. No focal deficits noted Skin: No rash or skin lesions. Psychiatric: Coperative. Nonsuicidal Musculoskeletal: No joint swelling or deformity. Normal range of motion. Results CBC & Chem 7: 08/20/24 04:18 08/20/24 04:18 Labs: Abnormal Lab Results - Last 24 Hours (Table) 08/19/24 08/19/24 08/19/24 Range/Units 15:17 15:17 15:17 RBC (4.10-5.20) X 10*6/uL Hgb 11.1 L (11.4-16.0) gm/dL Hct (37.2-46.3) % MCH (27.0-32.0) pg MCHC (32.0-37.0) g/dL RDW 17.5 H (11.5-15.5) % Immature Gran # (0.00-0.04) X 10*3/uL Chloride 111 H (98-107) mmol/L Carbon Dioxide 20 L (22-30) mmol/L Anion Gap (4.00-12.00) mmol/L BUN (9.0-27.0) mg/dL Glucose 107 H (74-99) mg/dL Alkaline Phosphatase 139 H (38-126) U/L Lipase 320 H (23-300) U/L Ur Leukocyte Esterase Moderate H (Negative) Urine WBC 7 H (0-5) /hpf Urine Bacteria Rare H (None) /hpf 08/20/24 08/20/24 Range/Units 04:18 04:18 RBC 3.88 L (4.10-5.20) X 10*6/uL Hgb 10.1 L (11.4-16.0) gm/dL Hct 32.5 L (37.2-46.3) % MCH 26.0 L (27.0-32.0) pg MCHC 31.1 L (32.0-37.0) g/dL RDW 18.0 H (11.5-15.5) % Immature Gran # 0.07 H (0.00-0.04) X 10*3/uL Chloride (98-107) mmol/L Carbon Dioxide 19.1 L (22-30) mmol/L Anion Gap 20.90 H (4.00-12.00) mmol/L BUN 8.1 L (9.0-27.0) mg/dL Glucose 124 H (74-99) mg/dL Alkaline Phosphatase (38-126) U/L Lipase (23-300) U/L Ur Leukocyte Esterase (Negative) Urine WBC (0-5) /hpf Urine Bacteria (None) /hpf Thrombosis Risk Factor Assmnt - DVT/VTE Prophylaxis DVT/VTE Prophylaxis: Pharmacologic Prophylaxis ordered - Choose All That Apply Any of the Below Risk Factors Present?: Yes Each Factor Represents 1 point: Abnormal pulmonary function (COPD), Obesity (BMI >25) Other Risk Factors: No Other congenital or acquired thrombophilia - If yes, enter type in comment: No Thrombosis Risk Factor Assessment Total Risk Factor Score: 2 Thrombosis Risk Factor Assessment Level: Low Risk Assessment and Plan Assessment: Abdominal pain associate with nausea and diarrhea with possible ileus. Rule out C. difficile with recent antibiotic use Gastritis as per recent EGD History of open ileocolectomy for colitis with intramural abscess on 06/14/2024 and on 06/22/2024 patient was taken back to the OR for exploratory laparotomy with lysis of adhesions and small bowel resection x 2 and proximal right colon resection for small bowel obstruction secondary to adhesions inflammation. Coronary arteries history of CABG History of stent placement Hypertension Diabetes type 2 Hyperlipidemia Ongoing nicotine addiction Daily marijuana use Anxiety/bipolar disorder GI and DVT prophylaxis Plan: Patient will be continued on IV hydration with normal saline. Rule out C. difficile infection. Continue with insulin sliding scale and pain management. General surgery is on board. Symptomatic management and follow-up closely. Patient has been counseled extensively for smoking cessation and marijuana abstinence. Prognosis is guarded. Time with Patient: Greater than 30
[2024-08-21] MEDS: TEMAZEPAM 7.5 MG CAP PO PRN (21:51)
--- NOTE | 2024-08-22 06:42 | P.PN ---
Progress Note - Text Progress Note Date: 08/22/24 Patient seen and examined. She is still having diarrhea. She states she is not having any abdominal pain other than occasional cramping. She tolerated CLD and is requesting more food as she is hungry. VSS General-NAD Abdomen-soft, ND, minimal diffuse TTP, no guarding 53 year old female with Ileus/Diarrhea -Advance to Regular Diet -Cholestyramine -Follow up Stool Studies, C Diff Negative -Nausea Control Freeman Portillo DO [facility] [phone]
[2024-08-22 13:39] LABS: Anisocytosis Slight; HCT 29.3 % (34.0-46.0); Hypochromasia Marked; MCH 26.8 pg (25.0-35.0); MCHC 31.7 g/dL (31.0-37.0); MCV 84.7 fL (80.0-100.0); Platelet Count 311 k/uL (150-450); RBC 3.46 m/uL (3.80-5.40); RDW 17.7 % (11.5-15.5); WBC 5.8 k/uL (3.8-10.6)
[2024-08-22 13:48] LABS: African American GFR (CKD) >90 (>60 ml/min/1.73 sqM); Anion Gap 8 mmol/L; Blood Urea Nitrogen 3 mg/dL (7-17); Calcium 9.2 mg/dL (8.4-10.2); Carbon Dioxide 19 mmol/L (22-30); Chloride 110 mmol/L (98-107); Glucose 84 mg/dL (74-99); Non-African American GFR(CKD) >90 (>60 ml/min/1.73 sqM); Potassium 3.9 mmol/L (3.5-5.1); Sodium 137 mmol/L (137-145)
[2024-08-22 14:09] LABS: Eosinophils # (M) 0.06 k/uL (0-0.7); Lymphocytes # (M) 2.67 k/uL (1.0-4.8); Monocytes # (M) 0.17 k/uL (0-1.0); Neutrophils % (M) 50 %; Nucleated Red Blood Cells 0 /100 WBC (0-0); Total Cells Counted 200
[2024-08-22 14:10] LABS: Anisocytosis (M) Present
[2024-08-22 15:14] LABS: HGB 9.3 gm/dL (11.4-16.0)
--- NOTE | 2024-08-23 00:35 | P.PN ---
Subjective Progress Note Date: 08/21/24 Patient is a 53-year-old female with a past medical history of coronary artery disease status post CABG, history of stent placement, recent history of bowel resection with appendectomy and second bowel resection on 07/18/2024, hypertension, diabetes type 2, COPD, history of [place], anxiety/bipolar disorder and currently everyday smoker and marijuana use. Patient presents to ER with complaints of abdominal pain associate with nausea vomiting and diarrhea. Patient states that she has symptoms started since Monday. She went to [facility] initially where she had a CT of the abdomen pelvis was done and was told she has infection and started on antibiotics. Patient has been having pain across the upper abdomen and on the sides of her abdomen. Patient is also having significant diarrhea. Denied any blood in the stool. Patient has recent multiple hospital admissions due to abdominal pain and incisional wound infection. Patient had recent EGD showed gastritis. KUB x-ray showed mild stool burden. Laboratory data showed WBC 10.6 hemoglobin 11.1 and platelets 374, sodium 140 potassium 4.4 chloride 109 bicarb is 20 BUN 11 and creatinine 0.64 and blood sugar 107 lactic acid 1.4 and alk phos 139 and lipase level 320. Urinalysis is negative infection 08/21/2024 Patient is awake alert and oriented x 3. Still having cramping abdominal pain but better than yesterday. Still having diarrhea as well. C. difficile was negative. Patient is being continue Questran for diarrhea. Patient denied any complaints of abdominal pain. Afebrile. Occasional nausea. No episodes of vomiting. Stool lactoferrin negative. Laboratory data reviewed. General surgery is on board. Current medications reviewed. Objective - Vital Signs Vital signs: Vital Signs Temp 98.1 F 08/21/24 07:04 Pulse 70 08/21/24 11:52 Resp 18 08/21/24 07:04 BP 132/75 08/21/24 07:04 Pulse Ox 96 08/21/24 07:04 FiO2 Intake & Output 08/20/24 08/21/24 08/21/24 18:59 06:59 18:59 Intake Total 1560 1570 Balance 1560 1570 Weight 81.647 kg Intake: Intake, IV Titration 1560 Amount Sodium Chloride 0.9% 1, 1560 000 ml @ 130 mls/hr IV . Q7H42M [facility] Rx#:[id number] Oral 1570 Other: Voiding Method Toilet Toilet Toilet Diaper Diaper Diaper - Exam PHYSICAL EXAMINATION: Patient is lying in the bed comfortably, no acute distress, awake alert and oriented.. HEENT: Normocephalic. Neck is supple. Pupils reactive. Nostrils clear. Oral cavity is moist. Neck reveals no JVD, carotid bruits, or thyromegaly. CHEST EXAMINATION: Trachea is central. Symmetrical expansion. Bibasilar diminished sounds otherwise lung yeung clear to auscultation and percussion. CARDIAC: Normal S1, S2 with no gallops. No murmurs ABDOMEN: Soft. Mild lower abdominal tenderness. No guarding or rigidity. Bowel sounds normal. No organomegaly. No abdominal bruits. Extremities: reveal no edema. No clubbing or cyanosis Neurologically awake, alert, oriented x3 with well-coordinated movements. No focal deficits noted Skin: No rash or skin lesions. Psychiatric: Coperative. Nonsuicidal Musculoskeletal: No joint swelling or deformity. Normal range of motion. - Labs CBC & Chem 7: 08/23/24 05:30 08/23/24 05:30 Assessment and Plan Assessment: Abdominal pain associate with nausea and diarrhea with possible ileus. Rule out C. difficile with recent antibiotic use Gastritis as per recent EGD History of open ileocolectomy for colitis with intramural abscess on 06/14/2024 and on 06/22/2024 patient was taken back to the OR for exploratory laparotomy with lysis of adhesions and small bowel resection x 2 and proximal right colon resection for small bowel obstruction secondary to adhesions inflammation. Coronary arteries history of CABG History of stent placement Hypertension Diabetes type 2 Hyperlipidemia Ongoing nicotine addiction Daily marijuana use Anxiety/bipolar disorder GI and DVT prophylaxis Plan: Patient will be continued on IV hydration with normal saline. Rule out C. difficile infection. Continue with insulin sliding scale and pain management. General surgery is on board. Symptomatic management and follow-up closely. Patient has been counseled extensively for smoking cessation and marijuana abstinence. Prognosis is guarded.
[2024-08-23] MEDS: MAG HYDROX/AL HYDROX/SIMETH 30 ML CUP PO PRN (02:22)
[2024-08-23] MEDS: METOCLOPRAMIDE 5 MG/ML 2 ML VIAL IVP STA (02:22)
--- NOTE | 2024-08-23 02:48 | XR ---
EXAM: XR Chest, 1 View CLINICAL HISTORY: ITS.REASON XR Reason: Chest pain TECHNIQUE: Frontal view of the chest. COMPARISON: No relevant prior studies available. FINDINGS: Lungs: No consolidation or mass. Pleural space: No acute findings. Heart: No cardiomegaly. Bones/joints: No acute findings. IMPRESSION: No acute cardiopulmonary process.
[2024-08-23 07:34] VITALS: RESP 16
[2024-08-23 09:52] LABS: Basophils # (A) 0.03 X 10*3/uL (0.00-0.10); Basophils % (A) 0.5 %; Eosinophils # (A) 0.26 X 10*3/uL (0.04-0.35); Eosinophils % (A) 4.1 %; HCT 29.5 % (37.2-46.3); HGB 9.1 g/dL (12.0-15.0); Lymphocytes # (A) 2.62 X 10*3/uL (0.90-5.00); MCH 25.4 pg (27.0-32.0); MCHC 30.8 g/dL (32.0-37.0); MCV 82.4 FL (80.0-97.0); Mean Platelet Volume 10.9 FL (9.5-12.2); Monocytes # (A) 0.45 X 10*3/uL (0.20-1.00); NRBC Per 100 WBC 0 X 10*3/uL (0.00-0.01); Neutrophils # (A) 3.01 X 10*3/uL (1.80-7.70); Neutrophils % (A) 47.1 %; Platelet Count 276 X 10*3/uL (140-440); RBC 3.58 X 10*6/uL (4.10-5.20); RDW 17.4 % (11.5-14.5); WBC 6.39 X 10*3/uL (4.50-10.00)
[2024-08-23 10:35] LABS: BUN/Creat Ratio <4.38 Ratio (12.00-20.00); Blood Urea Nitrogen <3.5 mg/dL (9.0-27.0); Glucose 121 mg/dL (70-110)
[2024-08-23 10:36] LABS: Carbon Dioxide 22.8 mmol/L (21.6-31.8); Chloride 101 mmol/L (96-109); Potassium 3.8 mmol/L (3.5-5.5); Sodium 137 mmol/L (135-145)
[2024-08-23 12:34] VITALS: BP 141/79; PULSE 73; TEMP 98.1
--- NOTE | 2024-08-25 21:00 | P.PN ---
Subjective Progress Note Date: 08/22/24 Patient is a 53-year-old female with a past medical history of coronary artery disease status post CABG, history of stent placement, recent history of bowel resection with appendectomy and second bowel resection on 07/18/2024, hypertension, diabetes type 2, COPD, history of [place], anxiety/bipolar disorder and currently everyday smoker and marijuana use. Patient presents to ER with complaints of abdominal pain associate with nausea vomiting and diarrhea. Patient states that she has symptoms started since Monday. She went to [facility] initially where she had a CT of the abdomen pelvis was done and was told she has infection and started on antibiotics. Patient has been having pain across the upper abdomen and on the sides of her abdomen. Patient is also having significant diarrhea. Denied any blood in the stool. Patient has recent multiple hospital admissions due to abdominal pain and incisional wound infection. Patient had recent EGD showed gastritis. KUB x-ray showed mild stool burden. Laboratory data showed WBC 10.6 hemoglobin 11.1 and platelets 374, sodium 140 potassium 4.4 chloride 109 bicarb is 20 BUN 11 and creatinine 0.64 and blood sugar 107 lactic acid 1.4 and alk phos 139 and lipase level 320. Urinalysis is negative infection 08/21/2024 Patient is awake alert and oriented x 3. Still having cramping abdominal pain but better than yesterday. Still having diarrhea as well. C. difficile was negative. Patient is being continue Questran for diarrhea. Patient denied any complaints of abdominal pain. Afebrile. Occasional nausea. No episodes of vomiting. Stool lactoferrin negative. Laboratory data reviewed. General surgery is on board. 08/22/2024 Patient states that she feels better. But still having diarrhea. Denies any chest pain. No complaints of abdominal pain. Patient is tolerating clear liquid diet. Repeat C. difficile is negative. Denied any episodes of vomiting. Patient has been afebrile. Laboratory showed WBC 5.8 hemoglobin 9.3 and p latelets 311 sodium 137 potassium 3.9 chloride 110 bicarb is 19 BUN 3 and creatinine 0.65 and blood sugar 84 and calcium 9.2. General surgery is on board. Current medications reviewed. Objective - Vital Signs Vital signs: Vital Signs Temp 98.4 F 08/22/24 19:18 Pulse 71 08/22/24 20:30 Resp 18 08/22/24 20:30 BP 165/97 08/22/24 19:18 Pulse Ox 94 L 08/22/24 19:18 FiO2 Intake & Output 08/22/24 08/22/24 08/23/24 06:59 18:59 06:59 Intake Total 540 3288 Balance 540 3288 Intake: Oral 540 3288 Other: # Voids 1 5 # Bowel Movements 1 - Exam PHYSICAL EXAMINATION: Patient is lying in the bed comfortably, no acute distress, awake alert and oriented.. HEENT: Normocephalic. Neck is supple. Pupils reactive. Nostrils clear. Oral ca vity is moist. Neck reveals no JVD, carotid bruits, or thyromegaly. CHEST EXAMINATION: Trachea is central. Symmetrical expansion. Bibasilar diminished sounds otherwise lung yeung clear to auscultation and percussion. CARDIAC: Normal S1, S2 with no gallops. No murmurs ABDOMEN: Soft. Mild lower abdominal tenderness. No guarding or rigidity. Bowel sounds normal. No organomegaly. No abdominal bruits. Extremities: reveal no edema. No clubbing or cyanosis Neurologically awake, alert, oriented x3 with well-coordinated movements. No focal deficits noted Skin: No rash or skin lesions. Psychiatric: Coperative. Nonsuicidal Musculoskeletal: No joint swelling or deformity. Normal range of motion. - Labs CBC & Chem 7: 08/23/24 05:30 08/23/24 05:30 Labs: Abnormal Lab Results - Last 24 Hours (Table) 08/22/24 08/22/24 Range/Units 13:16 13:16 RBC 3.46 L (3.80-5.40) m/uL Hgb 9.3 L D (11.4-16.0) gm/dL Hct 29.3 L (34.0-46.0) % RDW 17.7 H (11.5-15.5) % Chloride 110 H (98-107) mmol/L Carbon Dioxide 19 L (22-30) mmol/L BUN 3 L (7-17) mg/dL Microbiology - Last 24 Hours (Table) 08/21/24 12:31 Stool Culture - Preliminary Stool Assessment and Plan Assessment: Abdominal pain associate with nausea and diarrhea with possible ileus. C. difficile negative. Patient still having diarrhea. Gastritis as per recent EGD History of open ileocolectomy for colitis with intramural abscess on 06/14/2024 and on 06/22/2024 patient was taken back to the OR for exploratory laparotomy with lysis of adhesions and small bowel resection x 2 and proximal right colon resection for small bowel obstruction secondary to adhesions inflammation. Coronary arteries history of CABG History of stent placement Hypertension Diabetes type 2 Hyperlipidemia Ongoing nicotine addiction Daily marijuana use Anxiety/bipolar disorder GI and DVT prophylaxis Plan: Patient will be continued on IV hydration with normal saline. Ruled out C. difficile infection. Continue with Questran for diarrhea. Continue with insulin sliding scale and pain management. General surgery is on board. Symptomatic management and follow-up closely. Patient has been counseled extensively for smoking cessation and marijuana abstinence. Prognosis is guarded. Time with Patient: Greater than 30
--- NOTE | 2024-08-25 21:01 | P.DS ---
Providers Date of admission: 08/19/24 18:41 Expected date of discharge: 08/23/24 Attending physician: Hiro Velez Consults: 08/19/24 18:39 Consult Physician Urgent Consulting Provider: Marga Samuel Consult Reason/Comments: ileus vs sbo Do you want consulting provider notified?: Yes Primary care physician: Kemar Jin MD Hospital Course: Discharge diagnosis Abdominal pain associate with nausea and diarrhea with possible ileus. C. difficile negative. Diarrhea improved. Stool for Shigella, Salmonella and E. coli negative. Gastritis as per recent EGD History of open ileocolectomy for colitis with intramural abscess on 06/14/2024 and on 06/22/2024 patient was taken back to the OR for exploratory laparotomy with lysis of adhesions and small bowel resection x 2 and proximal right colon resection for small bowel obstruction secondary to adhesions inflammation. Coronary arteries history of CABG History of stent placement Hypertension Diabetes type 2 Hyperlipidemia Ongoing nicotine addiction Daily marijuana use Anxiety/bipolar disorder GI and DVT prophylaxis Hospital course Patient is a 53-year-old female with a past medical history of coronary artery disease status post CABG, history of stent placement, recent history of bowel resection with appendectomy and second bowel resection on 07/18/2024, hypertension, diabetes type 2, COPD, history of [place], anxiety/bipolar disorder and currently everyday smoker and marijuana use. Patient presents to ER with complaints of abdominal pain associate with nausea vomiting and diarrhea. Patient states that she has symptoms started since Monday. She went to [facility] initially where she had a CT of the abdomen pelvis was done and was told she has infection and started on antibiotics. Patient has been having pain across the upper abdomen and on the sides of her abdomen. Patient is also having significant diarrhea. Denied any blood in the stool. Patient has recent multiple hospital admissions due to abdominal pain and incisional wound infection. Patient had recent EGD showed gastritis. KUB x-ray showed mild stool burden. Laboratory data showed WBC 10.6 hemoglobin 11.1 and platelets 374, sodium 140 potassium 4.4 chloride 109 bicarb is 20 BUN 11 and creatinine 0.64 and blood sugar 107 lactic acid 1.4 and alk phos 139 and lipase level 320. Urinalysis is negative infection 08/21/2024 Patient is awake alert and oriented x 3. Still having cramping abdominal pain but better than yesterday. Still having diarrhea as well. C. difficile was negative. Patient is being continue Questran for diarrhea. Patient denied any complaints of abdominal pain. Afebrile. Occasional nausea. No episodes of vomiting. Stool lactoferrin negative. Laboratory data reviewed. General surgery is on board. 08/22/2024 Patient states that she feels better. But still having diarrhea. Denies any chest pain. No complaints of abdominal pain. Patient is tolerating clear liquid diet. Repeat C. difficile is negative. Denied any episodes of vomiting. Patient has been afebrile. Laboratory showed WBC 5.8 hemoglobin 9.3 and platelets 311 sodium 137 potassium 3.9 chloride 110 bicarb is 19 BUN 3 and creatinine 0.65 and blood sugar 84 and calcium 9.2. General surgery is on board. 08/23/2024 Patient is currently resting in the bed. Awake alert and orient x 3. Patient did have a normal bowel meant today. No diarrhea. Overnight she had severe epigastric abdominal pain and cramping after eating meat last night. Was given a dose of Maalox and Reglan which seemed to improve symptoms and she did have a bowel movement with hard stool after that. She felt after that. Was able to tolerate oral diet today. No complaints of chest pain or shortness of breath. No cough or sputum production. Patient is cleared from surgery standpoint. PHYSICAL EXAMINATION: Patient is lying in the bed comfortably, no acute distress, awake alert and oriented.. HEENT: Normocephalic. Neck is supple. Pupils reactive. Nostrils clear. Oral cavity is moist. Neck reveals no JVD, carotid bruits, or thyromegaly. CHEST EXAMINATION: Trachea is central. Symmetrical expansion. Lung yeung clear to auscultation and percussion. CARDIAC: Normal S1, S2 with no gallops. No murmurs ABDOMEN: Soft. Bowel sounds normal. No organomegaly. No abdominal bruits. Extremities: reveal no edema. No clubbing or cyanosis Neurologically awake, alert, oriented x3 with well-coordinated movements. No focal deficits noted Skin: No rash or skin lesions. Psychiatric: Coperative. Nonsuicidal Musculoskeletal: No joint swelling or deformity. Normal range of motion. Discharge vitals reviewed. Patient Condition at Discharge: Stable Plan - Discharge Summary Discharge Rx Participant: Yes New Discharge Prescriptions: Continue Atorvastatin [Lipitor] 80 mg PO DAILY Ranolazine [Ranexa] 1,000 mg PO BID metFORMIN HCL 1,000 mg PO BID Nitroglycerin Sl Tabs [Nitrostat] 0.4 mg SL Q5M PRN PRN Reason: Chest Pain Aspirin EC [Ecotrin Low Dose] 81 mg PO DAILY Albuterol Inhaler [Ventolin Hfa Inhaler] 2 puff INHALATION RT-QID PRN PRN Reason: Shortness Of Breath Isosorbide Mononitrate ER [Imdur] 30 mg PO DAILY Insulin Lispro [humaLOG Kwikpen] See Protocol SQ AC-TID Dulaglutide [Trulicity] 3 mg SQ WE Ipratropium-Albuterol Nebulize [Duoneb 0.5 mg-3 mg/3 ml Soln] 3 ml INHALATION RT-TID Spiriva Respimat 1.25mcg/Actuation Mist 2 puff INHALATION RT-DAILY Ondansetron Odt [Zofran ODT] 4 mg PO Q8HR PRN PRN Reason: Nausea lisinopriL [Zestril] 10 mg PO DAILY Cholestyramine (with Sugar) [Questran Packet] 4 gm PO BID #60 packet Dapagliflozin Propanediol [Farxiga] 10 mg PO DAILY 14 Days #14 tab Metoprolol Tartrate [Lopressor] 25 mg PO BID 14 Days #30 tab rOPINIRole HCL [Requip] 1 mg PO HS amLODIPine [Norvasc] 10 mg PO DAILY Omeprazole 40 mg PO BID Budesonide/Formoterol Fumarate [Symbicort 160-4.5 Mcg Inhaler] 2 puff INHALATION RT-BID Pregabalin [Lyrica] 150 mg PO TID Clopidogrel [Plavix] 75 mg PO DAILY ALPRAZolam [Xanax] 0.5 mg PO BID PRN PRN Reason: Anxiety Mag Hydrox/Al Hydrox/Simeth [Maalox] 30 ml PO QID PRN 2 Days #180 ml PRN Reason: Heartburn Albuterol Nebulized [Ventolin Nebulized] 2.5 mg INHALATION RT-Q6H PRN PRN Reason: Shortness Of Breath HYDROcodone/APAP 5-325MG [[place] 5-325] 1 tab PO Q6HR PRN 3 Days #12 tab PRN Reason: Pain Escitalopram [Lexapro] 10 mg PO DAILY Discharge Medication List Atorvastatin [Lipitor] 80 mg PO DAILY 07/08/20 [History] Ranolazine [Ranexa] 1,000 mg PO BID 11/13/21 [History] Albuterol Inhaler [Ventolin Hfa Inhaler] 2 puff INHALATION RT-QID PRN 03/27/23 [History] Aspirin EC [Ecotrin Low Dose] 81 mg PO DAILY 03/27/23 [History] Budesonide/Formoterol Fumarate [Symbicort 160-4.5 Mcg Inhaler] 2 puff INHALATION RT-BID 03/27/23 [History] Clopidogrel [Plavix] 75 mg PO DAILY 03/27/23 [History] Nitroglycerin Sl Tabs [Nitrostat] 0.4 mg SL Q5M PRN 03/27/23 [History] Omeprazole 40 mg PO BID 03/27/23 [History] Pregabalin [Lyrica] 150 mg PO TID 03/27/23 [History] amLODIPine [Norvasc] 10 mg PO DAILY 03/27/23 [History] metFORMIN HCL 1,000 mg PO BID 03/27/23 [History] rOPINIRole HCL [Requip] 1 mg PO HS 03/27/23 [History] ALPRAZolam [Xanax] 0.5 mg PO BID PRN 06/22/23 [History] Dulaglutide [Trulicity] 3 mg SQ WE 03/16/24 [History] Insulin Lispro [humaLOG Kwikpen] See Protocol SQ AC-TID 03/16/24 [History] Ipratropium-Albuterol Nebulize [Duoneb 0.5 mg-3 mg/3 ml Soln] 3 ml INHALATION RT-TID 03/16/24 [History] Isosorbide Mononitrate ER [Imdur] 30 mg PO DAILY 03/16/24 [History] Mag Hydrox/Al Hydrox/Simeth [Maalox] 30 ml PO QID PRN 2 Days #180 ml 05/22/24 [Rx] Spiriva Respimat 1.25mcg/Actuation Mist 2 puff INHALATION RT-DAILY 05/24/24 [History] Albuterol Nebulized [Ventolin Nebulized] 2.5 mg INHALATION RT-Q6H PRN 05/31/24 [History] Ondansetron Odt [Zofran ODT] 4 mg PO Q8HR PRN 05/31/24 [History] lisinopriL [Zestril] 10 mg PO DAILY 05/31/24 [History] Cholestyramine (with Sugar) [Questran Packet] 4 gm PO BID #60 packet 06/03/24 [Rx] HYDROcodone/APAP 5-325MG [[place] 5-325] 1 tab PO Q6HR PRN 3 Days #12 tab 07/26/24 [Rx] Dapagliflozin Propanediol [Farxiga] 10 mg PO DAILY 14 Days #14 tab 08/05/24 [Rx] Metoprolol Tartrate [Lopressor] 25 mg PO BID 14 Days #30 tab 08/05/24 [Rx] Escitalopram [Lexapro] 10 mg PO DAILY 08/19/24 [History] Follow up Appointment(s)/Referral(s): Kemar Jin MD [Primary Care Provider] - 1-2 days (please call to schedule a follow up appointment) Discharge Disposition: HOME SELF-CARE
== END 2024-08-23 13:55 | disposition home or self-care (01) | DRG 247 ==
LOC: EC 14:13 → 5NMEDONC 18:40 → OBSVTOIN 18:41 → 5NMEDONC 21:10
PROVIDERS: ADMIT Hospitalist; ATTEND Hospitalist
DX: K56.7 Ileus, unspecified (principal); I10 Essential (primary) hypertension; F31.9 Bipolar disorder, unspecified; F41.9 Anxiety disorder, unspecified; E78.5 Hyperlipidemia, unspecified; E11.9 Type 2 diabetes mellitus without complications; M41.9 Scoliosis, unspecified; K29.70 Gastritis, unspecified, without bleeding; J44.89 Other specified chronic obstructive pulmonary disease; I25.10 Atherosclerotic heart disease of native coronary artery without angina pectoris; F17.210 Nicotine dependence, cigarettes, uncomplicated; Z95.1 Presence of aortocoronary bypass graft; I25.2 Old myocardial infarction; Z95.5 Presence of coronary angioplasty implant and graft; Z71.6 Tobacco abuse counseling; Z79.02 Long term (current) use of antithrombotics/antiplatelets; Z79.4 Long term (current) use of insulin; Z79.51 Long term (current) use of inhaled steroids; Z79.82 Long term (current) use of aspirin; Z79.84 Long term (current) use of oral hypoglycemic drugs; Z79.899 Other long term (current) drug therapy; Z90.49 Acquired absence of other specified parts of digestive tract
CPT/HCPCS: 36415; 71045; 74018; 80048; 80053; 81001; 83605; 83630; 83690; 85025; 87045; 87046; 87324; 94640; 96361; 96374; 96375; 99285

== ENCOUNTER 2024-12-15 17:35 | Inpatient (IN) | payer OTHER ==
[2024-12-15] MEDS ORDERED: IOPAMIDOL CONTRAST (ORAL USE) VIAL PO PRN (18:03)
--- NOTE | 2024-12-15 18:11 | ED ---
Abdominal Pain HPI - General Chief Complaint: Abdominal Pain Stated Complaint: Abd Pain Time Seen by Provider: 12/15/24 18:06 Source: patient, EMS, RN notes reviewed, old records reviewed Mode of arrival: EMS Limitations: no limitations - History of Present Illness Initial Comments: 54-year-old female with history of multiple bowel resections and appendectomy presenting for abdominal pain x 2 days. Pain is located predominantly in the epigastric area and is associated with nausea and vomiting. Patient states she has chronic diarrhea, last bowel movement was diarrhea and was this morning. States she was seen in the ER at [place] 2 days ago and was diagnosed with constipation for which she was given an oral medication. Reports pain is worsening. Patient underwent multiple bowel resections last year, last was in June 2024. Other past medical history includes CAD status post CABG, stents, hypertension, type 2 diabetes, COPD. Patient is on Plavix. - Related Data Home Medications Medication Instructions Recorded Confirmed Atorvastatin [Lipitor] 80 mg PO DAILY 07/08/20 08/19/24 Ranolazine [Ranexa] 1,000 mg PO BID 11/13/21 08/19/24 Albuterol Inhaler [Ventolin Hfa 2 puff INHALATION RT-QID PRN 03/27/23 08/19/24 Inhaler] Aspirin EC [Ecotrin Low Dose] 81 mg PO DAILY 03/27/23 08/19/24 Budesonide/Formoterol Fumarate 2 puff INHALATION RT-BID 03/27/23 08/19/24 [Symbicort 160-4.5 Mcg Inhaler] Clopidogrel [Plavix] 75 mg PO DAILY 03/27/23 08/19/24 Nitroglycerin Sl Tabs [Nitrostat] 0.4 mg SL Q5M PRN 03/27/23 08/19/24 Omeprazole 40 mg PO BID 03/27/23 08/19/24 Pregabalin [Lyrica] 150 mg PO TID 03/27/23 08/19/24 amLODIPine [Norvasc] 10 mg PO DAILY 03/27/23 08/19/24 metFORMIN HCL 1,000 mg PO BID 03/27/23 08/19/24 rOPINIRole HCL [Requip] 1 mg PO HS 03/27/23 08/19/24 ALPRAZolam [Xanax] 0.5 mg PO BID PRN 06/22/23 08/19/24 Dulaglutide [Trulicity] 3 mg SQ WE 03/16/24 08/19/24 Insulin Lispro [humaLOG Kwikpen] See Protocol SQ AC-TID 03/16/24 08/19/24 Ipratropium-Albuterol Nebulize 3 ml INHALATION RT-TID 03/16/24 08/19/24 [Duoneb 0.5 mg-3 mg/3 ml Soln] Isosorbide Mononitrate ER [Imdur] 30 mg PO DAILY 03/16/24 08/19/24 Spiriva Respimat 1.25mcg/Actuation 2 puff INHALATION RT-DAILY 05/24/24 08/19/24 Mist Albuterol Nebulized [Ventolin 2.5 mg INHALATION RT-Q6H PRN 05/31/24 08/19/24 Nebulized] Ondansetron Odt [Zofran ODT] 4 mg PO Q8HR PRN 05/31/24 08/19/24 lisinopriL [Zestril] 10 mg PO DAILY 05/31/24 08/19/24 Escitalopram [Lexapro] 10 mg PO DAILY 08/19/24 08/19/24 Previous Rx's Medication Instructions Recorded Mag Hydrox/Al Hydrox/Simeth 30 ml PO QID PRN 2 Days #180 ml 05/22/24 [Maalox] Cholestyramine (with Sugar) 4 gm PO BID #60 packet 06/03/24 [Questran Packet] HYDROcodone/APAP 5-325MG [[place] 1 tab PO Q6HR PRN 3 Days #12 tab 07/26/24 5-325] Dapagliflozin Propanediol [Farxiga] 10 mg PO DAILY 14 Days #14 tab 08/05/24 Metoprolol Tartrate [Lopressor] 25 mg PO BID 14 Days #30 tab 08/05/24 Allergies Allergy/AdvReac Type Severity Reaction Status Date / Time Iodinated Contrast Media Allergy Anaphylaxis Verified 12/15/24 21:34 Review of Systems ROS Statement: Those systems with pertinent positive or pertinent negative responses have been documented in the HPI. ROS Other: All systems not noted in ROS Statement are negative. Past Medical History Past Medical History: Asthma, Coronary Artery Disease (CAD), COPD, Diabetes Mellitus, GERD/Reflux, Hypertension, Myocardial Infarction (DE), Osteoarthritis (OA) Additional Past Medical History / Comment(s): DDD, scoliosis, DE x4 Last Myocardial Infarction Date:: 2011 History of Any Multi-Drug Resistant Organisms: None Reported Past Surgical History: Appendectomy, Bowel Resection, Coronary Bypass/CABG, Heart Catheterization With Stent Additional Past Surgical History / Comment(s): seven stents, here for gastroenteritis with abcess (removal 06/21/24), per pt 2 ABD procedures at the same area, Bowel resection with appendectomy 07/05/2024 Past Anesthesia/Blood Transfusion Reactions: No Reported Reaction Date of Last Stent Placement:: 11/2018 Past Psychological History: Anxiety, Bipolar Smoking Status: Current every day smoker Past Alcohol Use History: None Reported Past Drug Use History: Marijuana - Past Family History Mother Family Medical History: Cancer Additional Family Medical History / Comment(s): Ovarian cancer Father Family Medical History: Congestive Heart Failure (CHF) Fmily Family Medical History: No Reported History General Exam Limitations: no limitations General appearance: alert, other (Patient appears very uncomfortable on physical examination) Head exam: Present: atraumatic, normocephalic, normal inspection ENT exam: Present: normal exam, mucous membranes moist Respiratory exam: Present: normal lung sounds bilaterally. Absent: respiratory distress, wheezes, rales, rhonchi, stridor Cardiovascular Exam: Present: regular rate, normal rhythm, normal heart sounds. Absent: systolic murmur, diastolic murmur, rubs, gallop, clicks GI/Abdominal exam: Present: soft, tenderness (Diffuse abdominal tenderness), normal bowel sounds, other (Old, well-healed surgical scar present on abdomen). Absent: distended, guarding, rebound, rigid Back exam: Absent: CVA tenderness (R), CVA tenderness (L) Neurological exam: Present: alert, oriented X3 Psychiatric exam: Present: normal affect, normal mood Skin exam: Present: warm, dry, intact, normal color. Absent: rash Course Vital Signs 12/15/24 12/15/24 12/15/24 17:38 21:12 21:44 Temperature 97.6 F Pulse Rate 75 141 H 101 H Respiratory 19 24 18 Rate Blood Pressure 128/71 132/83 127/101 O2 Sat by Pulse 95 98 95 Oximetry Medical Decision Making - Medical Decision Making Was pt. sent in by a medical professional or institution (VICENTE Mckenna, MEDICAID NURSE, urgent care, hospital, or long term...) When possible be specific @ -No Did you speak to anyone other than the patient for history (EMS, parent, family, police, friend...)? What history was obtained from this source @ -No Did you review nursing and triage notes (agree or disagree)? Why? @ -I reviewed and agree with nursing and triage notes Were old charts reviewed (outside hosp., previous admission, EMS record, old EKG, old radiological studies, urgent care reports/EKG's, long term records)? Report findings @ -Previous admission charts reviewed Differential Diagnosis (chest pain, altered mental status, abdominal pain women, abdominal pain men, vaginal bleeding, weakness, fever, dyspnea, syncope, headache, dizziness, GI bleed, back pain, seizure, CVA, palpatations, mental health, musculoskeletal)? @ -Differential Abdominal Pain Women: Appendicitis, Cholecystitis, diverticulosis, ischemic bowel, pancreatitis, hepa titis, UTI, gastroenteritis, AAA, incarcerated hernia, bowel obstruction, constipation, inflammatory bowel, hepatitis, peptic ulcer disease, splenic infarction, perforated viscus, vulvitis, ovarian torsion, PID, kidney stone, placenta abruption, this is not meant to be an all-inclusive list EKG interpreted by me (3pts min.). @ -As above X-rays interpreted by me (1pt min.). @ -None done CT interpreted by me (1pt min.). @ -CT abdomen pelvis with contrast reveals dilated loops of small bowel measu ring up to 3.4 cm with transition zone at mid abdomen at small bowel anastomotic site consistent with complete versus partial small bowel obstruction, contrast not seen beyond transition zone U/S interpreted by me (1pt. min.). @ -None done What testing was considered but not performed or refused? (CT, X-rays, U/S, labs)? Why? @ -None What meds were considered but not given or refused? Why? @ -None Did you discuss the management of the patient with other professionals (professionals i.e. VICENTE Mckenna, MEDICAID NURSE, lab, RT, psych nurse, renal social worker, mental telepathist, teacher, fundraising officer, manager of case management)? Give summary @ -I spoke with Dr. Frederick who accepts admission for partial small bowel obstruction with consultation to surgery Was smoking cessation discussed for >3mins.? @ -No Was critical care preformed (if so, how long)? @ -No Were there social determinants of health that impacted care today? How? (Homelessness, low income, unemployed, alcoholism, drug addiction, transportation, low edu. Level, literacy, decrease access to med. care, senior living, rehab)? @ -No Was there de-escalation of care discussed even if they declined (Discuss DNR or withdrawal of care, Hospice)? DNR status @ -No What co-morbidities impacted this encounter? (DM, HTN, Smoking, COPD, CAD, Cancer, CVA, ARF, Chemo, Hep., AIDS, mental health diagnosis, sleep apnea, morbid obesity)? @ -None Was patient admitted / discharged? Hospital course, mention meds given and route, prescriptions, significant lab abnormalities, going to OR and other pertinent info. @ - admitted. 54-year-old female with history of multiple bowel resections presenting for abdominal pain x 2 days with associated nausea/vomiting/diarrhea. Patient is afebrile and nontachycardic. Abdomen is diffusely tender to palpation. Provided with IV fluids, Dilaudid, Reglan, and Ofirmev. Lab work remarkable for leukocytosis of 20, lactic acid 3. CT abdomen pelvis with contrast reveals dilated loops of small bowel measuring up to 3.4 cm with transition zone at mid abdomen at small bowel anastomotic site consistent with complete versus partial small bowel obstruction, contrast not seen beyond transition zone. After returning from CT, I was notified by the nurse that patient was diaphoretic, skin was erythematous and patient was experiencing dyspnea. Patient was tachycardic and hypotensive. Patient was given IM epinephrine, IV steroids, Benadryl, and Pepcid, and IV fluid bolus. Vital signs stabilized, tachycardia and hypotension improved. I spoke with Dr. Frederick who accepts admission for partial small bowel obstruction with consultation to surgery. NG tube will be placed, patient will be made n.p.o. and started on Unasyn. Case was discussed in detail with my ED attending Dr. Shane. Undiagnosed new problem with uncertain prognosis? @ -No Drug Therapy requiring intensive monitoring for toxicity (Heparin, Nitro, Insulin, Cardizem)? @ -No Were any procedures done? @ -No Diagnosis/symptom? @ -Partial small bowel obstruction Acute, or Chronic, or Acute on Chronic? @ -Acute Uncomplicated (without systemic symptoms) or Complicated (systemic symptoms)? @ -Complicated Side effects of treatment? @ -No Exacerbation, Progression, or Severe Exacerbation? @ -No Poses a threat to life or bodily function? How? (Chest pain, [place], DE, pneumonia, PE, COPD, DKA, ARF, appy, cholecystitis, CVA, Diverticulitis, Homicidal, Suicidal, threat to staff... and all critical care pts) @ -Yes - Lab Data Result diagrams: 12/15/24 19:56 12/15/24 19:56 Lab Results 12/15/24 12/15/24 12/15/24 Range/Units 19:56 19:56 19:56 WBC 20.5 H (3.8-10.6) k/uL RBC 5.49 H (3.80-5.40) m/uL Hgb 13.4 (11.4-16.0) gm/dL Hct 44.4 (34.0-46.0) % MCV 80.8 (80.0-100.0) fL MCH 24.4 L (25.0-35.0) pg MCHC 30.2 L (31.0-37.0) g/dL RDW 19.9 H (11.5-15.5) % Plt Count 357 (150-450) k/uL MPV 7.9 Neutrophils % 83 % Lymphocytes % 12 % Monocytes % 3 % Eosinophils % 1 % Basophils % 1 % Neutrophils # 17.0 H (1.3-7.7) k/uL Lymphocytes # 2.4 (1.0-4.8) k/uL Monocytes # 0.6 (0-1.0) k/uL Eosinophils # 0.2 (0-0.7) k/uL Basophils # 0.1 (0-0.2) k/uL Hypochromasia Marked Anisocytosis Slight Microcytosis Slight PT 9.8 L (10.0-12.5) sec INR 0.9 (<1.2) APTT 21.0 L (22.0-30.0) sec Sodium 134 L (137-145) mmol/L Potassium 4.7 (3.5-5.1) mmol/L Chloride 97 L (98-107) mmol/L Carbon Dioxide 25 (22-30) mmol/L Anion Gap 12 mmol/L BUN 10 (7-17) mg/dL Creatinine 0.69 (0.52-1.04) mg/dL Est GFR (CKD-EPI)AfAm >90 (>60 ml/min/1.73 sqM) Est GFR (CKD-EPI)NonAf >90 (>60 ml/min/1.73 sqM) Glucose 135 H (74-99) mg/dL Plasma Lactic Acid Sarthak (0.7-2.0) mmol/L Calcium 9.7 (8.4-10.2) mg/dL Total Bilirubin 0.5 (0.2-1.3) mg/dL AST 24 (14-36) U/L ALT 18 (4-34) U/L Alkaline Phosphatase 143 H (38-126) U/L Total Protein 7.4 (6.3-8.2) g/dL Albumin 4.5 (3.5-5.0) g/dL Lipase 101 (23-300) U/L 12/15/24 Range/Units 19:56 WBC (3.8-10.6) k/uL RBC (3.80-5.40) m/uL Hgb (11.4-16.0) gm/dL Hct (34.0-46.0) % MCV (80.0-100.0) fL MCH (25.0-35.0) pg MCHC (31.0-37.0) g/dL RDW (11.5-15.5) % Plt Count (150-450) k/uL MPV Neutrophils % % Lymphocytes % % Monocytes % % Eosinophils % % Basophils % % Neutrophils # (1.3-7.7) k/uL Lymphocytes # (1.0-4.8) k/uL Monocytes # (0-1.0) k/uL Eosinophils # (0-0.7) k/uL Basophils # (0-0.2) k/uL Hypochromasia Anisocytosis Microcytosis PT (10.0-12.5) sec INR (<1.2) APTT (22.0-30.0) sec Sodium (137-145) mmol/L Potassium (3.5-5.1) mmol/L Chloride (98-107) mmol/L Carbon Dioxide (22-30) mmol/L Anion Gap mmol/L BUN (7-17) mg/dL Creatinine (0.52-1.04) mg/dL Est GFR (CKD-EPI)AfAm (>60 ml/min/1.73 sqM) Est GFR (CKD-EPI)NonAf (>60 ml/min/1.73 sqM) Glucose (74-99) mg/dL Plasma Lactic Acid Sarthak 3.1 H* (0.7-2.0) mmol/L Calcium (8.4-10.2) mg/dL Total Bilirubin (0.2-1.3) mg/dL AST (14-36) U/L ALT (4-34) U/L Alkaline Phosphatase (38-126) U/L Total Protein (6.3-8.2) g/dL Albumin (3.5-5.0) g/dL Lipase (23-300) U/L - EKG Data -: EKG Interpreted by [facility] EKG Comments: EKG reveals normal sinus rhythm with no ST changes. Ventricular rate 63 bpm, NC interval 29, QRS duration 82, QT/QTc 397/405 Disposition Clinical Impression: Partial small bowel obstruction Disposition: ADMITTED IP TO THIS [facility] Referrals: Nonstaff,Physician [REFERRING] - 1-2 days Time of Disposition: 22:27
[2024-12-15] MEDS: HYDROmorphone 1 MG/ML 1 ML SYRINGE IM STA (19:04)
[2024-12-15] MEDS: METOCLOPRAMIDE 5 MG/ML 2 ML VIAL IM STA (19:06)
[2024-12-15 20:13] LABS: Anisocytosis Slight; Basophils # (A) 0.1 k/uL (0-0.2); Basophils % (A) 1 %; Eosinophils # (A) 0.2 k/uL (0-0.7); Eosinophils % (A) 1 %; HCT 44.4 % (34.0-46.0); HGB 13.4 gm/dL (11.4-16.0); Hypochromasia Marked; Lymphocytes # (A) 2.4 k/uL (1.0-4.8); Lymphocytes % (A) 12 %; MCH 24.4 pg (25.0-35.0); MCHC 30.2 g/dL (31.0-37.0); MCV 80.8 fL (80.0-100.0); Mean Platelet Volume 7.9; Microcytosis Slight; Monocytes # (A) 0.6 k/uL (0-1.0); Monocytes % (A) 3 %; Neutrophils % (A) 83 %; Platelet Count 357 k/uL (150-450); RBC 5.49 m/uL (3.80-5.40); RDW 19.9 % (11.5-15.5); WBC 20.5 k/uL (3.8-10.6)
[2024-12-15] MEDS: ONDANSETRON 4 MG/2 ML VIAL IVP STA (20:23)
[2024-12-15] MEDS: HYDROmorphone 1 MG/ML 1 ML SYRINGE IVP STA (20:24)
[2024-12-15] MEDS: ACETAMINOPHEN IV (For NPO) 1,000 MG in EMPTY BAG 1 BAG IVPB STA (20:25)
[2024-12-15] MEDS: SODIUM CHLORIDE 0.9% 1,000 ML IV STA (20:26)
[2024-12-15] MEDS: METOCLOPRAMIDE 5 MG/ML 2 ML VIAL IVP STA (20:27)
[2024-12-15 20:39] LABS: INR 0.9 (<1.2); Prothrombin Time 9.8 sec (10.0-12.5)
[2024-12-15 20:46] LABS: ALT 18 U/L (4-34); AST 24 U/L (14-36); African American GFR (CKD) >90 (>60 ml/min/1.73 sqM); Albumin 4.5 g/dL (3.5-5.0); Alkaline Phosphatase 143 U/L (38-126); Anion Gap 12 mmol/L; Blood Urea Nitrogen 10 mg/dL (7-17); Calcium 9.7 mg/dL (8.4-10.2); Carbon Dioxide 25 mmol/L (22-30); Chloride 97 mmol/L (98-107); Glucose 135 mg/dL (74-99); Lipase 101 U/L (23-300); Non-African American GFR(CKD) >90 (>60 ml/min/1.73 sqM); Potassium 4.7 mmol/L (3.5-5.1); Sodium 134 mmol/L (137-145); Total Bilirubin 0.5 mg/dL (0.2-1.3); Total Protein 7.4 g/dL (6.3-8.2)
[2024-12-15] MEDS: diphenhydrAMINE 50 MG/ML 1 ML VIAL IVP STA (21:11)
[2024-12-15] MEDS: FAMOTIDINE 20 MG/2 ML VIAL IV STA (21:12)
[2024-12-15] MEDS: methylPREDNISolone SOD SUCCI 125 MG/2 ML VIAL IV STA (21:12)
--- NOTE | 2024-12-15 21:15 | CT ---
EXAMINATION TYPE: CT abdomen pelvis w con DATE OF EXAM: 12/15/2024 9:06 PM COMPARISON: 07/29/2024 CLINICAL INDICATION: Female, 54 years old with history of abdominal pain, acute, nonlocalized, Abdomi nal pain. Pt stated she went to a different hospital last [place] and they determined she had a bowel obstruction, was given meds but her condition hasn't improved. TECHNIQUE:CT scan of the abdomen and pelvis is performed with Oral Contrast and with IV Contrast, pat ient injected with 100ml mL of Isovue 300. CT DLP: 1381.6 mGycm, Automated exposure control for dose reduction was used. FINDINGS: LUNG BASES-: No visible nodule. No infiltrate. LIVER/GB: No calcified gallstones. No space occupying hepatic lesion. Biliary tree is of normal ca liber. PANCREAS: No inflammation. No distinct mass. SPLEEN: No splenic enlargement. No lesion seen. ADRENALS: No nodule. No thickening. KIDNEYS/BLADDER: No hydronephrosis. No nephrolithiasis. No distinct renal mass. Urinary bladder g rossly unremarkable. BOWEL: There are dilated loops of small bowel measuring up to 3.4 cm with transition zone suggested a t the mid abdomen at a small bowel anastomotic site. This is seen best on axial image 62 and coronal image 44. Normalized bowel is seen distally. Correlate for early complete versus partial small bowel obstruction. Contrast is not seen beyond the aforementioned transition zone. Postoperative changes ar e also seen about the right hemicolon as well. There are scattered air-fluid levels. Fluid and fecal debris are seen scattered throughout the colon. The colon appears to be of normal caliber with mild d istention of the right hemicolon. No evidence for perforation, abscess or free air. GENITAL ORGANS: No gross abnormality. LYMPH NODES: No greater than 1cm abdominal or pelvic lymph nodes are appreciated. AORTA: No significant abnormality. OSSEOUS STRUCTURES: No significant abnormality is seen. OTHER: No significant additional abnormality is seen. IMPRESSION: 1. Correlate for early complete versus partial small bowel obstruction. Contrast is not seen beyond t he aforementioned transition zone. See above. [facility], , 12/15/2024 9:13 PM
[2024-12-15] MEDS: DEXAMETHASONE SOD PHOSPHATE 10 MG/ML 1 ML VIAL IVP STA (21:43)
[2024-12-15] MEDS ORDERED: NALOXONE 0.4 MG/ML 1 ML VIAL IV PRN (22:27)
[2024-12-15] MEDS: HYDROmorphone 1 MG/ML 1 ML SYRINGE IVP PRN (23:18)
[2024-12-15] MEDS: KETOROLAC 15 MG/ML 1 ML VIAL IM STA (23:24)
[2024-12-15] MEDS: AMPICILLIN-SULBACTAM 3 GM in SODIUM CHLORIDE 0.9% 100 ML IVPB STA (23:27)
[2024-12-15 23:28] LABS: Influenza A Not Detected (Not Detectd); Influenza B Not Detected (Not Detectd); RSV Not Detected (Not Detectd)
[2024-12-15] MEDS: SODIUM CHLORIDE 0.9% 1,000 ML IV SCH (23:33)
[2024-12-16 02:21] LABS: Appearance,Urine Clear (Clear); Bilirubin,Urine Negative (Negative); Blood,Urine Negative (Negative); Color,Urine Light Yellow; Glucose,Urine (UA) 1+ (Negative); Ketones,Urine Negative (Negative); Leukocyte Esterase,Urine Negative (Negative); Nitrite,Urine Negative (Negative); PH, Urine 5.5 (5.0-8.0); Protein,Urine Trace (Negative); Urobilinogen,Urine <2.0 mg/dL (<2.0)
[2024-12-16 02:39] LABS: Specific Gravity,Urine >1.050 (1.001-1.035)
--- NOTE | 2024-12-16 02:39 | XR ---
EXAM: XR Chest, 1 View CLINICAL HISTORY: ITS.REASON XR Reason: NG tube placement TECHNIQUE: Frontal view of the chest. COMPARISON: No relevant prior studies available. FINDINGS: Lungs: No consolidation or mass. Mild vascular congestion Pleural space: No acute findings. Heart: cardiomegaly. Bones/joints: No acute findings. NG tube in good position IMPRESSION: NG tube in good position
--- NOTE | 2024-12-16 04:32 | P.HPIM ---
History of Present Illness H&P Date: 12/15/24 Patient is a 54-year-old female with a PMH of CAD status post CABG and multiple stents, bowel resection x 2 (most recently 07/14/2024), type II DM, hypertension, hyperlipidemia, COPD, bipolar disorder, who presents to the emergency room with complaints of abdominal pain with nausea and vomiting. The patient reports that her symptoms started 2 days ago and quickly worsened for which she was initially seen at an outside facility yesterday where she was given several oral medications and sent home for suspected bowel obstruction. The patient reports that her symptoms however have persisted which prompted her to come to the emergency room. She now reports at 8 out of 10 diffuse lower abdominal discomfort. Notes for episodes of none bloody emesis throughout the day today. Denies experiencing fever, chills, chest discomfort, or shortness of breath. In the CT abdomen pelvis in the emergency room, findings were consistent with early complete versus partial small bowel obstruction. Chest x-ray revealed an appropriately placed NG tube with EKG showing sinus rhythm with sinus arrhythmia at 63 bpm with no additional ST/T wave changes noted as reviewed by me. Laboratory evaluation was remarkable for lactic acid of 3.1 and subsequently 6.3. Sodium was 134, chloride 97, with respiratory viral panel negative. The patient did have an anaphylactic reaction after receiving contrast dye with hives, diaphoresis, tachycardia, and fever. She was given the cocktail for anaphylaxis including epinephrine, Solu-Medrol, Decadron, and Benadryl. ED documentation reviewed and case discussed with ED provider. Review of systems: Pertinent positives and negatives as discussed in HPI, a complete review of systems was performed and all other systems are negative. Physical examination: Vital signs reviewed General: non toxic, no distress, appears at stated age, overweight Derm: no unusual rashes/lesions, warm Head: atraumatic, normocephalic, symmetric Eyes: EOMI, no lid lag, anicteric sclera, pupils equal round reactive to light ENT: Nose and ears atraumatic Neck: No cervical lymphadenopathy, trachea midline, supple Mouth: no lip lesion, mucus membranes moist Cardiovascular: S1S2 reg, no murmur, positive dorsalis pedis pulse bilateral, no edema Lungs: CTA bilateral, no rhonchi, no rales, no accessory muscle use Abdominal: soft, diffuse moderate lower abdominal tenderness, no guarding Ext: muscle strength 5 out of 5 in all 4 extremities grossly, no gross muscle atrophy, no contractures, Neuro: CN II-XI grossly intact, no gross focal neuro deficits Psych: Alert, oriented, appropriate affect Assessment: Small bowel obstruction, partial versus complete Lactic acidosis Hyponatremia, hypochloremic Chronic conditions: CAD, type II DM, hypertension, hyperlipidemia, COPD, bipolar disorder Imaging: In the CT abdomen pelvis in the emergency room, findings were consistent with early complete versus partial small bowel obstruction. Chest x-ray revealed an appropriately placed NG tube with EKG showing sinus rhythm with sinus arrhythmia at 63 bpm with no additional ST/T wave changes noted as reviewed by me. Data Review: Laboratory evaluation was remarkable for lactic acid of 3.1 and subsequently 6.3. Sodium was 134, chloride 97, with respiratory viral panel negative. Plan: Continue with NGT with low intermittent suction N.p.o. for now Pain control and antiemetics Monitor lactic acid levels for resolution Monitor BMP Insulin sliding scale and blood glucose monitoring General surgery consulted Resume remaining home medications once reconciled DVT prophylaxis: Lovenox subcu The patient is admitted with an anticipated greater than 2 midnight stay for evaluation of bowel obstruction CODE STATUS: Full Code Discussed with: Patient Anticipated discharge place: Home Past Medical History Past Medical History: Asthma, Coronary Artery Disease (CAD), COPD, Diabetes Mellitus, GERD/Reflux, Hypertension, Myocardial Infarction ([place]), Osteoarthritis (OA) Additional Past Medical History / Comment(s): DDD, scoliosis, [place] x4 Last Myocardial Infarction Date:: 2011 History of Any Multi-Drug Resistant Organisms: None Reported Past Surgical History: Appendectomy, Bowel Resection, Coronary Bypass/CABG, Heart Catheterization With Stent Additional Past Surgical History / Comment(s): seven stents, here for gastroenteritis with abcess (removal 06/21/24), per pt 2 ABD procedures at the same area, Bowel resection with appendectomy 07/05/2024 Past Anesthesia/Blood Transfusion Reactions: No Reported Reaction Date of Last Stent Placement:: 11/2018 Past Psychological History: Anxiety, Bipolar Smoking Status: Current every day smoker Past Alcohol Use History: None Reported Past Drug Use History: Marijuana - Past Family History Mother Family Medical History: Cancer Additional Family Medical History / Comment(s): Ovarian cancer Father Family Medical History: Congestive Heart Failure (CHF) Fmily Family Medical History: No Reported History Medications and Allergies Home Medications Medication Instructions Recorded Confirmed Type Atorvastatin [Lipitor] 80 mg PO DAILY 07/08/20 08/19/24 History Ranolazine [Ranexa] 1,000 mg PO BID 11/13/21 08/19/24 History Albuterol Inhaler [Ventolin Hfa 2 puff INHALATION RT-QID PRN 03/27/23 08/19/24 History Inhaler] Aspirin EC [Ecotrin Low Dose] 81 mg PO DAILY 03/27/23 08/19/24 History Budesonide/Formoterol Fumarate 2 puff INHALATION RT-BID 03/27/23 08/19/24 History [Symbicort 160-4.5 Mcg Inhaler] Clopidogrel [Plavix] 75 mg PO DAILY 03/27/23 08/19/24 History Nitroglycerin Sl Tabs [Nitrostat] 0.4 mg SL Q5M PRN 03/27/23 08/19/24 History Omeprazole 40 mg PO BID 03/27/23 08/19/24 History Pregabalin [Lyrica] 150 mg PO TID 03/27/23 08/19/24 History amLODIPine [Norvasc] 10 mg PO DAILY 03/27/23 08/19/24 History metFORMIN HCL 1,000 mg PO BID 03/27/23 08/19/24 History rOPINIRole HCL [Requip] 1 mg PO HS 03/27/23 08/19/24 History ALPRAZolam [Xanax] 0.5 mg PO BID PRN 06/22/23 08/19/24 History Dulaglutide [Trulicity] 3 mg SQ WE 03/16/24 08/19/24 History Insulin Lispro [humaLOG Kwikpen] See Protocol SQ AC-TID 03/16/24 08/19/24 History Ipratropium-Albuterol Nebulize 3 ml INHALATION RT-TID 03/16/24 08/19/24 History [Duoneb 0.5 mg-3 mg/3 ml Soln] Isosorbide Mononitrate ER [Imdur] 30 mg PO DAILY 03/16/24 08/19/24 History Mag Hydrox/Al Hydrox/Simeth 30 ml PO QID PRN 2 Days #180 ml 05/22/24 08/19/24 Rx [Maalox] Spiriva Respimat 1.25mcg/Actuation 2 puff INHALATION RT-DAILY 05/24/24 08/19/24 History Mist Albuterol Nebulized [Ventolin 2.5 mg INHALATION RT-Q6H PRN 05/31/24 08/19/24 History Nebulized] Ondansetron Odt [Zofran ODT] 4 mg PO Q8HR PRN 05/31/24 08/19/24 History lisinopriL [Zestril] 10 mg PO DAILY 05/31/24 08/19/24 History Cholestyramine (with Sugar) 4 gm PO BID #60 packet 06/03/24 08/19/24 Rx [Questran Packet] HYDROcodone/APAP 5-325MG [[place] 1 tab PO Q6HR PRN 3 Days #12 tab 07/26/24 08/19/24 Rx 5-325] Dapagliflozin Propanediol [Farxiga] 10 mg PO DAILY 14 Days #14 tab 08/05/24 08/19/24 Rx Metoprolol Tartrate [Lopressor] 25 mg PO BID 14 Days #30 tab 08/05/24 08/19/24 Rx Escitalopram [Lexapro] 10 mg PO DAILY 08/19/24 08/19/24 History Allergies Allergy/AdvReac Type Severity Reaction Status Date / Time Iodinated Contrast Media Allergy Anaphylaxis Verified 12/15/24 21:34 Physical Exam Vitals: Vital Signs Temp Pulse Resp BP Pulse Ox 12/16/24 03:02 101 H 20 175/83 95 12/16/24 00:40 90 18 147/102 95 12/15/24 21:44 101 H 18 127/101 95 12/15/24 21:12 141 H 24 132/83 98 12/15/24 17:38 97.6 F 75 19 128/71 95 Intake and Output 12/15/24 12/15/24 12/16/24 14:59 22:59 06:59 Other: Weight 90.718 kg Results CBC & Chem 7: 12/16/24 05:06 12/15/24 19:56 Labs: Abnormal Lab Results - Last 24 Hours (Table) 12/15/24 12/15/24 12/15/24 Range/Units 19:56 19:56 19:56 WBC 20.5 H (3.8-10.6) k/uL RBC 5.49 H (3.80-5.40) m/uL MCH 24.4 L (25.0-35.0) pg MCHC 30.2 L (31.0-37.0) g/dL RDW 19.9 H (11.5-15.5) % Neutrophils # 17.0 H (1.3-7.7) k/uL PT 9.8 L (10.0-12.5) sec APTT 21.0 L (22.0-30.0) sec Sodium 134 L (137-145) mmol/L Chloride 97 L (98-107) mmol/L Glucose 135 H (74-99) mg/dL Plasma Lactic Acid Sarthak (0.7-2.0) mmol/L Alkaline Phosphatase 143 H (38-126) U/L Ur Specific [place] (1.001-1.035) Urine Protein (Negative) Urine Glucose (UA) (Negative) 12/15/24 12/15/24 12/16/24 Range/Units 19:56 23:40 01:00 WBC (3.8-10.6) k/uL RBC (3.80-5.40) m/uL MCH (25.0-35.0) pg MCHC (31.0-37.0) g/dL RDW (11.5-15.5) % Neutrophils # (1.3-7.7) k/uL PT (10.0-12.5) sec APTT (22.0-30.0) sec Sodium (137-145) mmol/L Chloride (98-107) mmol/L Glucose (74-99) mg/dL Plasma Lactic Acid Sarthak 3.1 H* 6.3 H* (0.7-2.0) mmol/L Alkaline Phosphatase (38-126) U/L Ur Specific [place] >1.050 H (1.001-1.035) Urine Protein Trace H (Negative) Urine Glucose (UA) 1+ H (Negative) 12/16/24 Range/Units 03:07 WBC (3.8-10.6) k/uL RBC (3.80-5.40) m/uL MCH (25.0-35.0) pg MCHC (31.0-37.0) g/dL RDW (11.5-15.5) % Neutrophils # (1.3-7.7) k/uL PT (10.0-12.5) sec APTT (22.0-30.0) sec Sodium (137-145) mmol/L Chloride (98-107) mmol/L Glucose (74-99) mg/dL Plasma Lactic Acid Sarthak 4.0 H* (0.7-2.0) mmol/L Alkaline Phosphatase (38-126) U/L Ur Specific [place] (1.001-1.035) Urine Protein (Negative) Urine Glucose (UA) (Negative)
[2024-12-16] MEDS: SODIUM CHLORIDE 0.9% 1,000 ML IV ONE (04:57)
[2024-12-16] MEDS: SODIUM CHLORIDE 0.9% 1,000 ML IV STA (04:57)
[2024-12-16] MEDS: BENZOCAINE SPRAY 1 EACH MUCOUS MEM PRN (04:58)
[2024-12-16 05:50] LABS: Anisocytosis Slight; HCT 47.3 % (34.0-46.0); Hypochromasia Marked; MCHC 27.5 g/dL (31.0-37.0); MCV 83.5 fL (80.0-100.0); Mean Platelet Volume 8.5; Microcytosis Slight; Platelet Count 389 k/uL (150-450); RBC 5.67 m/uL (3.80-5.40); WBC 28.8 k/uL (3.8-10.6)
[2024-12-16 06:10] LABS: African American GFR (CKD) >90 (>60 ml/min/1.73 sqM); Anion Gap 9 mmol/L; Blood Urea Nitrogen 12 mg/dL (7-17); Calcium 9.1 mg/dL (8.4-10.2); Carbon Dioxide 23 mmol/L (22-30); Chloride 100 mmol/L (98-107); Glucose 193 mg/dL (74-99); Non-African American GFR(CKD) 89 (>60 ml/min/1.73 sqM); Sodium 132 mmol/L (137-145)
[2024-12-16 06:44] LABS: Potassium 6.5 mmol/L (3.5-5.1)
[2024-12-16] MEDS: HYDROmorphone 0.5 MG/0.5 ML SYRINGE IVP PRN (07:02)
[2024-12-16] MEDS: SODIUM BICARB 8.4% 50 ML SYR (1 MEQ/ML) IV STA (07:04)
[2024-12-16 07:45] LABS: Glucose,Whole Blood 168 mg/dL (70-110)
[2024-12-16] MEDS: INSULIN LISPRO (HumaLOG) 100 UNIT/ML 10 mL VL SQ SCH ×2 (08:00→12:12)
[2024-12-16] MEDS: DEXTROSE 50% SYRINGE 50 ML IVP ONE (08:03)
[2024-12-16] MEDS: CALCIUM GLUCONATE IN NACL 2 GM in SALINE 1 100ML.BAG IVPB ONE (08:04)
[2024-12-16] MEDS: INSULIN REGULAR 100 UNIT/ML VIAL (IV) IV ONE (08:05)
[2024-12-16] MEDS: ENOXAPARIN 40 MG/0.4 ML SYRINGE SQ SCH (09:04)
[2024-12-16 09:05] LABS: Glucose,Whole Blood 192 mg/dL (70-110)
[2024-12-16] MEDS ORDERED: ALBUTEROL NEBULIZED 2.5 MG/3 ML INHALATION PRN (11:02)
[2024-12-16] MEDS ORDERED: NON FORMULARY DRUG (Albuterol Inhaler 90 MCG Puff) INHALATION PRN (11:02)
[2024-12-16] MEDS: ASPIRIN 81 MG PO SCH (11:19)
--- NOTE | 2024-12-16 12:11 | P.GSCN ---
History of Present Illness Consult date: 12/16/24 History of present illness: CHIEF COMPLAINT: Abdominal pain HISTORY OF PRESENT ILLNESS: This is a 54-year-old female who presented with abdominal pain that started 3 days ago. She reports her pain was more in the left lower quadrant. She reports having bowel movements that were diarrhea. She had a CT scan abdomen pelvis that had reported early complete versus partial small bowel obstruction. Transition zone mid abdomen at the small bowel anastomotic site. She has NG tube in place with about 600 mL clearish output. Patient's abdominal surgical history includes open ileocecectomy for colitis with intramural abscess on 06/14/2024 and on 06/22/2024 was taken back to the OR for exploratory laparotomy with lysis of adhesions and small bowel resection x 2 and proximal right colon resection for small bowel obstruction secondary to adhesions and inflammation. Patient also has a history of appendectomy on 07/05/2024. Patient with history of abdominal ileus. PAST MEDICAL HISTORY: See below PAST SURGICAL HISTORY: See below MEDICATIONS: See below ALLERGIES: See below SOCIAL HISTORY: No illicit drug use. REVIEW OF SYSTEMS: CONSTITUTIONAL: Denies fever or chills. HEENT: Denies blurred vision, vision changes, or eye pain. Denies hemoptysis CARDIOVASCULAR: Denies chest pain or pressure. RESPIRATORY: No shortness of breath. GASTROINTESTINAL: See HPI for pertinent findings HEMATOLOGIC: Denies bleeding disorders. GENITOURINARY: Denies any blood in urine or increased urinary frequency. SKIN: Denies pruitis. Denies rash. PHYSICAL EXAM: VITAL SIGNS: Reviewed GENERAL: Well-developed in no acute distress. HEENT: No sclera icterus. Extraocular movements grossly intact. Moist buccal mucosa. Head is atraumatic, normocephalic. No nasal drainage. ABDOMEN: Soft. Mildly distended. Tenderness with palpation of the left lower quadrant NEUROLOGIC: Alert and oriented. Cranial nerves II through XII grossly intact. LABORATORY DATA: WBC is up from 20.5-28.8 Hgb 13 platelets 389 Sodium is 132 potassium 6.5 creatinine 0.76 Lactic acid 6.3 down to 3.6 IMAGING: CT scan abdomen pelvis reports correlate for early complete versus partial small bowel obstruction. Transition zone suggested at the mid abdomen at the small bowel anastomotic site ASSESSMENT: 1. Partial small bowel obstruction with transition zone suggestive mid abdomen at the small bowel anastomotic site 2. History of prior abdominal surgeries 3. Hyperkalemia PLAN: -Continue NG tube for decompression -Keep patient n.p.o. -Dulcolax suppository ordered -Clamp NG tube and have patient ambulate -Continue pain management -Repeat CBC and BMP in AM. -Continue antibiotics -Medicine service correcting hyperkalemia Thank you for this consultation Physician Wharf Attendant note has been reviewed by physician. Signing provider agrees with the documented findings, assessment, and plan of care. Past Medical History Past Medical History: Asthma, Coronary Artery Disease (CAD), COPD, Diabetes Mellitus, GERD/Reflux, Hypertension, Myocardial Infarction ([place]), Osteoarthritis (OA) Additional Past Medical History / Comment(s): DDD, scoliosis, [place] x4 Last Myocardial Infarction Date:: 2011 History of Any Multi-Drug Resistant Organisms: None Reported Past Surgical History: Appendectomy, Bowel Resection, Coronary Bypass/CABG, Heart Catheterization With Stent Additional Past Surgical History / Comment(s): seven stents, here for gastroenteritis with abcess (removal 06/21/24), per pt 2 ABD procedures at the same area, Bowel resection with appendectomy 07/05/2024 Past Anesthesia/Blood Transfusion Reactions: No Reported Reaction Date of Last Stent Placement:: 11/2018 Past Psychological History: Anxiety, Bipolar Smoking Status: Current every day smoker Past Alcohol Use History: None Reported Past Drug Use History: Marijuana - Past Family History Mother Family Medical History: Cancer Additional Family Medical History / Comment(s): Ovarian cancer Father Family Medical History: Congestive Heart Failure (CHF) Fmily Family Medical History: No Reported History Medications and Allergies Home Medications Medication Instructions Recorded Confirmed Type Atorvastatin [Lipitor] 80 mg PO HS 07/08/20 12/16/24 History Ranolazine [Ranexa] 1,000 mg PO BID 11/13/21 12/16/24 History Albuterol Inhaler [Ventolin Hfa 2 puff INHALATION RT-Q6H PRN 03/27/23 12/16/24 History Inhaler] Aspirin EC [Ecotrin Low Dose] 81 mg PO W/BRKFST 03/27/23 12/16/24 History Clopidogrel [Plavix] 75 mg PO DAILY 03/27/23 12/16/24 History Nitroglycerin Sl Tabs [Nitrostat] 0.4 mg SL Q5M PRN 03/27/23 12/16/24 History Omeprazole 40 mg PO AC-BID 03/27/23 12/16/24 History Pregabalin [Lyrica] 150 mg PO TID 03/27/23 12/16/24 History amLODIPine [Norvasc] 10 mg PO DAILY 03/27/23 12/16/24 History rOPINIRole HCL [Requip] 1 mg PO HS 03/27/23 12/16/24 History ALPRAZolam [Xanax] 0.5 mg PO BID PRN 06/22/23 12/16/24 History Insulin Lispro [humaLOG Kwikpen] See Protocol SQ AC-TID 03/16/24 12/16/24 History Ipratropium-Albuterol Nebulize 3 ml INHALATION RT-TID 03/16/24 12/16/24 History [Duoneb 0.5 mg-3 mg/3 ml Soln] Albuterol Nebulized [Ventolin 2.5 mg INHALATION RT-Q6H PRN 05/31/24 12/16/24 History Nebulized] Ondansetron Odt [Zofran ODT] 4 mg PO TID PRN 05/31/24 12/16/24 History lisinopriL [Zestril] 10 mg PO DAILY 05/31/24 12/16/24 History Dapagliflozin Propanediol [Farxiga] 10 mg PO DAILY 14 Days #14 tab 08/05/24 12/16/24 Rx Escitalopram [Lexapro] 10 mg PO DAILY 08/19/24 12/16/24 History ARIPiprazole [Abilify] 5 mg PO DAILY 12/16/24 12/16/24 History Fluticasone/Umeclidin/Vilanter 1 puff INHALATION RT-DAILY 12/16/24 12/16/24 History [Trelegy Ellipta 200-62.5-25] Isosorbide Mononitrate [Imdur] 120 mg PO BID 12/16/24 12/16/24 History Metoprolol Tartrate [Lopressor] 50 mg PO BID 12/16/24 12/16/24 History Semaglutide [Ozempic] 0.5 mg SQ TH 12/16/24 12/16/24 History diphenhydrAMINE [Benadryl] 25 mg PO BID 12/16/24 12/16/24 History Allergies Allergy/AdvReac Type Severity Reaction Status Date / Time Iodinated Contrast Media Allergy Anaphylaxis Verified 12/16/24 09:05 Surgical - Exam Vital Signs Temp Pulse Resp BP Pulse Ox 97.6 F 75 19 128/71 95 12/15/24 17:38 12/15/24 17:38 12/15/24 17:38 12/15/24 17:38 12/15/24 17:38 Results - Labs 12/16/24 05:06 12/16/24 05:06 Abnormal Lab Results - Last 24 Hours (Table) 12/15/24 12/15/24 12/15/24 Range/Units 19:56 19:56 19:56 WBC 20.5 H (3.8-10.6) k/uL RBC 5.49 H (3.80-5.40) m/uL Hct (34.0-46.0) % MCH 24.4 L (25.0-35.0) pg MCHC 30.2 L (31.0-37.0) g/dL RDW 19.9 H (11.5-15.5) % Neutrophils # 17.0 H (1.3-7.7) k/uL PT 9.8 L (10.0-12.5) sec APTT 21.0 L (22.0-30.0) sec Sodium 134 L (137-145) mmol/L Potassium (3.5-5.1) mmol/L Chloride 97 L (98-107) mmol/L Glucose 135 H (74-99) mg/dL POC Glucose (mg/dL) (70-110) mg/dL Plasma Lactic Acid Sarthak (0.7-2.0) mmol/L Alkaline Phosphatase 143 H (38-126) U/L Ur Specific [place] (1.001-1.035) Urine Protein (Negative) Urine Glucose (UA) (Negative) 12/15/24 12/15/24 12/16/24 Range/Units 19:56 23:40 01:00 WBC (3.8-10.6) k/uL RBC (3.80-5.40) m/uL Hct (34.0-46.0) % MCH (25.0-35.0) pg MCHC (31.0-37.0) g/dL RDW (11.5-15.5) % Neutrophils # (1.3-7.7) k/uL PT (10.0-12.5) sec APTT (22.0-30.0) sec Sodium (137-145) mmol/L Potassium (3.5-5.1) mmol/L Chloride (98-107) mmol/L Glucose (74-99) mg/dL POC Glucose (mg/dL) (70-110) mg/dL Plasma Lactic Acid Sarthak 3.1 H* 6.3 H* (0.7-2.0) mmol/L Alkaline Phosphatase (38-126) U/L Ur Specific [place] >1.050 H (1.001-1.035) Urine Protein Trace H (Negative) Urine Glucose (UA) 1+ H (Negative) 12/16/24 12/16/24 12/16/24 Range/Units 03:07 05:06 05:06 WBC 28.8 H (3.8-10.6) k/uL RBC 5.67 H (3.80-5.40) m/uL Hct 47.3 H (34.0-46.0) % MCH 23.0 L (25.0-35.0) pg MCHC 27.5 L (31.0-37.0) g/dL RDW 20.0 H (11.5-15.5) % Neutrophils # (1.3-7.7) k/uL PT (10.0-12.5) sec APTT (22.0-30.0) sec Sodium 132 L (137-145) mmol/L Potassium 6.5 H* (3.5-5.1) mmol/L Chloride (98-107) mmol/L Glucose 193 H (74-99) mg/dL POC Glucose (mg/dL) (70-110) mg/dL Plasma Lactic Acid Sarthak 4.0 H* (0.7-2.0) mmol/L Alkaline Phosphatase (38-126) U/L Ur Specific [place] (1.001-1.035) Urine Protein (Negative) Urine Glucose (UA) (Negative) 12/16/24 12/16/24 Range/Units 06:40 07:42 WBC (3.8-10.6) k/uL RBC (3.80-5.40) m/uL Hct (34.0-46.0) % MCH (25.0-35.0) pg MCHC (31.0-37.0) g/dL RDW (11.5-15.5) % Neutrophils # (1.3-7.7) k/uL PT (10.0-12.5) sec APTT (22.0-30.0) sec Sodium (137-145) mmol/L Potassium (3.5-5.1) mmol/L Chloride (98-107) mmol/L Glucose (74-99) mg/dL POC Glucose (mg/dL) 168 H (70-110) mg/dL Plasma Lactic Acid Sarthak 4.6 H* (0.7-2.0) mmol/L Alkaline Phosphatase (38-126) U/L Ur Specific [place] (1.001-1.035) Urine Protein (Negative) Urine Glucose (UA) (Negative) Diabetes panel 12/15/24 12/16/24 Range/Units 19:56 05:06 Sodium 134 L 132 L (137-145) mmol/L Potassium 4.7 6.5 H* (3.5-5.1) mmol/L Chloride 97 L 100 (98-107) mmol/L Carbon Dioxide 25 23 (22-30) mmol/L BUN 10 12 (7-17) mg/dL Creatinine 0.69 0.76 (0.52-1.04) mg/dL Glucose 135 H 193 H (74-99) mg/dL Calcium 9.7 9.1 (8.4-10.2) mg/dL AST 24 (14-36) U/L ALT 18 (4-34) U/L Alkaline Phosphatase 143 H (38-126) U/L Total Protein 7.4 (6.3-8.2) g/dL Albumin 4.5 (3.5-5.0) g/dL Calcium panel 12/15/24 12/16/24 Range/Units 19:56 05:06 Calcium 9.7 9.1 (8.4-10.2) mg/dL Albumin 4.5 (3.5-5.0) g/dL Pituitary panel 12/15/24 12/16/24 Range/Units 19:56 05:06 Sodium 134 L 132 L (137-145) mmol/L Potassium 4.7 6.5 H* (3.5-5.1) mmol/L Chloride 97 L 100 (98-107) mmol/L Carbon Dioxide 25 23 (22-30) mmol/L BUN 10 12 (7-17) mg/dL Creatinine 0.69 0.76 (0.52-1.04) mg/dL Glucose 135 H 193 H (74-99) mg/dL Calcium 9.7 9.1 (8.4-10.2) mg/dL Adrenal panel 12/15/24 12/16/24 Range/Units 19:56 05:06 Sodium 134 L 132 L (137-145) mmol/L Potassium 4.7 6.5 H* (3.5-5.1) mmol/L Chloride 97 L 100 (98-107) mmol/L Carbon Dioxide 25 23 (22-30) mmol/L BUN 10 12 (7-17) mg/dL Creatinine 0.69 0.76 (0.52-1.04) mg/dL Glucose 135 H 193 H (74-99) mg/dL Calcium 9.7 9.1 (8.4-10.2) mg/dL Total Bilirubin 0.5 (0.2-1.3) mg/dL AST 24 (14-36) U/L ALT 18 (4-34) U/L Alkaline Phosphatase 143 H (38-126) U/L Total Protein 7.4 (6.3-8.2) g/dL Albumin 4.5 (3.5-5.0) g/dL
[2024-12-16 12:13] LABS: Glucose,Whole Blood 131 mg/dL (70-110)
--- NOTE | 2024-12-16 12:13 | XR ---
EXAMINATION TYPE: XR chest 1V confirm line [facility] DATE OF EXAM: 12/16/2024 CLINICAL INDICATION: Female, 54 years old with history of NG tube placement., progress study. TECHNIQUE: Single AP portable upright view of the chest is obtained. COMPARISON: Chest x-ray from one day earlier FINDINGS: Redemonstration of nasogastric tube extending below diaphragm. Overlying sternal wires and mediastinal clips are redemonstrated. New right mid to lower lung linear and nodular opacity. Left l jean pierre remains clear. Cardiac silhouette size stable and within normal limits. Osseous structures are in tact. IMPRESSION: A nasogastric tube redemonstrated extending below diaphragm. New right mid to lower lung acute nodular infiltrate and/or atelectasis noted. [facility], , 12/16/2024 12:11 PM
--- NOTE | 2024-12-16 14:48 | P.PN ---
Subjective Progress Note Date: 12/16/24 54-year-old female with a PMH of CAD status post CABG and multiple stents, bowel resection x 2 (most recently 07/14/2024), type II DM, hypertension, hyperlipidemia, COPD, bipolar disorder, who presents to the emergency room with complaints of abdominal pain with nausea and vomiting. The patient reports that her symptoms started 2 days ago and quickly worsened for which she was initially seen at an outside facility yesterday where she was given several oral medications and sent home for suspected bowel obstruction. The patient reports that her symptoms however have persisted which prompted her to come to the emergency room. She now reports at 8 out of 10 diffuse lower abdominal discomfort. Notes for episodes of none bloody emesis throughout the day today. Denies experiencing fever, chills, chest discomfort, or shortness of breath. In the CT abdomen pelvis in the emergency room, findings were consistent with early complete versus partial small bowel obstruction. Chest x-ray revealed an appropriately placed NG tube with EKG showing sinus rhythm with sinus arrhythmia at 63 bpm with no additional ST/T wave changes noted as reviewed by me. Laboratory evaluation was remarkable for lactic acid of 3.1 and subsequently 6.3. Sodium was 134, chloride 97, with respiratory viral panel negative. The patient did have an anaphylactic reaction after receiving contrast dye with hives, diaphoresis, tachycardia, and fever. She was given the cocktail for anaphylaxis including epinephrine, Solu-Medrol, Decadron, and Benadryl. 12/16 - Patient seen and examined at bedside this morning, remaining in the ED. States that her pain is much improved, however continues to fluctuate of being more and less severe. NG tube was placed last night/early this morning, and had been draining ~600 cc clearish fluid (at the time which the patient was evaluated). She had an episode of pulling out her NG tube accidentally, it was replaced with position confirmed by x-ray and suction restarted. REVIEW OF SYSTEMS: Pertinent positives and negatives noted in HPI. Physical Exam: General: nontoxic, no distress, appears at stated age Derm: warm, dry, intact Head: atraumatic, normocephalic, symmetric Eyes: EOMI, anicteric sclera Mouth: no lip lesion, mucus membranes moist Cardiovascular: S1 S2 reg, no murmur, rubs, or gallops Lungs: CTA bilateral, no rales, no accessory muscle use Abdominal: Tenderness to light palpation throughout entire abdomen with mild distention Extremities: no gross muscle atrophy, no edema, no contractures Neuro: Alert, Oriented, CNII-XII grossly intact, gait normal Psych: well appearing, appropriate affect Data Received Today: Labs: WBC is 28.8, hemoglobin 13.0, hematocrit 47.3, platelet 3 9; sodium 132, potassium 6.5, chloride 100, bicarb 24, BUN 12, creatinine 0.6, glucose 193, lactic acid 3.6, calcium 9.1 Imagining: Chest x-ray to confirm the placement of NG tube Assessment and plan 54-year-old female PMH of CAD s/p CABG and multiple stents, bowel resection x 2 (most recently 07/14/2024), type 2 diabetes mellitus, hypertension, hy perlipidemia, COPD, bipolar disorder who presented to the emergency room with complaints of worsening abdominal pain with nausea and vomiting. Symptoms began 2 days ago and have progressively worsened. #Small bowel obstruction, partial vs complete -Continue with NG tube with low intermittent suction to assist with decompression -Continue n.p.o. for now -Pain control and antiemetics -General Surgery consulted, recommending placement of Dulcolax suppository and further pleural evaluation -If unsuccessful suppository, will be further evaluated for possible surgical intervention -Will continue to hold Plavix secondary to possibility of surgical intervention -Repeat CBC and BMP in the a.m. -Continue with Unasyn 3 g every 8 hours #Lactic acidosis -Monitor lactic acid levels until resolution -Trend: 3.1 -> 6.3 -> 4.0 -> 4.6 -> 3.6 #Hyperkalemia -Medically managed per protocol -Potassium recheck currently pending -Continue to monitor BMP #Hyponatremia -Na 132 today -Continue to monitor BMP #Hypochloremia, resolved -Chloride 100 today -Continue monitor BMP Chronic conditions: #CAD #Type 2 diabetes mellitus #Hypertension #Hyperlipidemia #COPD #Bipolar disorder -Resumed home meds other than those listed below -Holding Plavix, fark [employer], Benadryl -Initiated on sliding scale every 6 hours DVT ppx: Lovenox 40 mg subcu daily Code status: Full code Anticipated discharge place: Pending clinical course Anticipated discharge time: Pending clinical course Dictation was produced using dragon dictation software. please excuse any gramma tical, word or spelling errors. I saw and evaluated the patient during the owusu and critical portions of this encounter, and discussed the case in detail with the resident author of this note, I agree with the Assessment and Plan, and my changes, if any, are highlighted in blue. Objective - Vital Signs Vital signs: Vital Signs Temp 98.1 F 12/16/24 08:00 Pulse 93 12/16/24 14:00 Resp 18 12/16/24 14:00 BP 164/91 12/16/24 14:00 Pulse Ox 99 12/16/24 14:00 FiO2 Intake & Output 12/15/24 12/16/24 12/16/24 18:59 06:59 18:59 Weight 90.718 kg - Labs CBC & Chem 7: 12/16/24 05:06 12/16/24 05:06 Labs: Abnormal Lab Results - Last 24 Hours (Table) 12/15/24 12/15/24 12/15/24 Range/Units 19:56 19:56 19:56 WBC 20.5 H (3.8-10.6) k/uL RBC 5.49 H (3.80-5.40) m/uL Hct (34.0-46.0) % MCH 24.4 L (25.0-35.0) pg MCHC 30.2 L (31.0-37.0) g/dL RDW 19.9 H (11.5-15.5) % Neutrophils # 17.0 H (1.3-7.7) k/uL PT 9.8 L (10.0-12.5) sec APTT 21.0 L (22.0-30.0) sec Sodium 134 L (137-145) mmol/L Potassium (3.5-5.1) mmol/L Chloride 97 L (98-107) mmol/L Glucose 135 H (74-99) mg/dL POC Glucose (mg/dL) (70-110) mg/dL Plasma Lactic Acid Sarthak (0.7-2.0) mmol/L Alkaline Phosphatase 143 H (38-126) U/L Ur Specific Kerens (1.001-1.035) Urine Protein (Negative) Urine Glucose (UA) (Negative) 12/15/24 12/15/24 12/16/24 Range/Units 19:56 23:40 01:00 WBC (3.8-10.6) k/uL RBC (3.80-5.40) m/uL Hct (34.0-46.0) % MCH (25.0-35.0) pg MCHC (31.0-37.0) g/dL RDW (11.5-15.5) % Neutrophils # (1.3-7.7) k/uL PT (10.0-12.5) sec APTT (22.0-30.0) sec Sodium (137-145) mmol/L Potassium (3.5-5.1) mmol/L Chloride (98-107) mmol/L Glucose (74-99) mg/dL POC Glucose (mg/dL) (70-110) mg/dL Plasma Lactic Acid Sarthak 3.1 H* 6.3 H* (0.7-2.0) mmol/L Alkaline Phosphatase (38-126) U/L Ur Specific Kerens >1.050 H (1.001-1.035) Urine Protein Trace H (Negative) Urine Glucose (UA) 1+ H (Negative) 12/16/24 12/16/24 12/16/24 Range/Units 03:07 05:06 05:06 WBC 28.8 H (3.8-10.6) k/uL RBC 5.67 H (3.80-5.40) m/uL Hct 47.3 H (34.0-46.0) % MCH 23.0 L (25.0-35.0) pg MCHC 27.5 L (31.0-37.0) g/dL RDW 20.0 H (11.5-15.5) % Neutrophils # (1.3-7.7) k/uL PT (10.0-12.5) sec APTT (22.0-30.0) sec Sodium 132 L (137-145) mmol/L Potassium 6.5 H* (3.5-5.1) mmol/L Chloride (98-107) mmol/L Glucose 193 H (74-99) mg/dL POC Glucose (mg/dL) (70-110) mg/dL Plasma Lactic Acid Sarthak 4.0 H* (0.7-2.0) mmol/L Alkaline Phosphatase (38-126) U/L Ur Specific Kerens (1.001-1.035) Urine Protein (Negative) Urine Glucose (UA) (Negative) 12/16/24 12/16/24 12/16/24 Range/Units 06:40 07:42 09:04 WBC (3.8-10.6) k/uL RBC (3.80-5.40) m/uL Hct (34.0-46.0) % MCH (25.0-35.0) pg MCHC (31.0-37.0) g/dL RDW (11.5-15.5) % Neutrophils # (1.3-7.7) k/uL PT (10.0-12.5) sec APTT (22.0-30.0) sec Sodium (137-145) mmol/L Potassium (3.5-5.1) mmol/L Chloride (98-107) mmol/L Glucose (74-99) mg/dL POC Glucose (mg/dL) 168 H 192 H (70-110) mg/dL Plasma Lactic Acid Sarthak 4.6 H* (0.7-2.0) mmol/L Alkaline Phosphatase (38-126) U/L Ur Specific Kerens (1.001-1.035) Urine Protein (Negative) Urine Glucose (UA) (Negative) 12/16/24 12/16/24 Range/Units 11:04 12:12 WBC (3.8-10.6) k/uL RBC (3.80-5.40) m/uL Hct (34.0-46.0) % MCH (25.0-35.0) pg MCHC (31.0-37.0) g/dL RDW (11.5-15.5) % Neutrophils # (1.3-7.7) k/uL PT (10.0-12.5) sec APTT (22.0-30.0) sec Sodium (137-145) mmol/L Potassium (3.5-5.1) mmol/L Chloride (98-107) mmol/L Glucose (74-99) mg/dL POC Glucose (mg/dL) 131 H (70-110) mg/dL Plasma Lactic Acid Sarthak 3.6 H* (0.7-2.0) mmol/L Alkaline Phosphatase (38-126) U/L Ur Specific Kerens (1.001-1.035) Urine Protein (Negative) Urine Glucose (UA) (Negative)
[2024-12-16] MEDS: ONDANSETRON 4 MG/2 ML VIAL IVP PRN (15:14)
[2024-12-16] MEDS: AMPICILLIN-SULBACTAM 3 GM in SODIUM CHLORIDE 0.9% 100 ML IVPB SCH (15:21)
[2024-12-16] MEDS: PREGABALIN 75 MG CAP PO SCH (16:12)
[2024-12-16] MEDS: IPRATROPIUM-ALBUTEROL 3 ML NEB INHALATION SCH (16:20)
[2024-12-16] MEDS: PANTOPRAZOLE 40 MG TABLET PO SCH (17:39)
[2024-12-16 18:53] LABS: Glucose,Whole Blood 135 mg/dL (70-110)
[2024-12-16] MEDS: ATORVASTATIN 80 MG TAB PO SCH (21:40)
[2024-12-16] MEDS: ALPRAZolam 0.5 MG TAB PO PRN (21:40)
[2024-12-16] MEDS: METOPROLOL TARTRATE 50 MG TAB PO SCH (21:40)
[2024-12-16] MEDS: RANOLAZINE 500 MG TAB.ER.12H PO SCH (21:40)
[2024-12-16] MEDS: ISOSORBIDE MONONITRATE ER 60 MG TAB.ER.24H PO SCH (21:40)
[2024-12-16 23:59] LABS: Glucose,Whole Blood 116 mg/dL (70-110)
[2024-12-17] MEDS: bisacodyL 10 MG SUPP RECTAL STA (03:51)
[2024-12-17 05:13] LABS: Anisocytosis Moderate; Basophils % (A) 0 %; Eosinophils # (A) 0.1 k/uL (0-0.7); Eosinophils % (A) 0 %; HCT 34.5 % (34.0-46.0); HGB 10.5 gm/dL (11.4-16.0); Hypochromasia Marked; Lymphocytes % (A) 17 %; MCH 24.6 pg (25.0-35.0); MCHC 30.5 g/dL (31.0-37.0); MCV 80.7 fL (80.0-100.0); Mean Platelet Volume 7.8; Microcytosis Slight; Monocytes # (A) 0.9 k/uL (0-1.0); Monocytes % (A) 5 %; Neutrophils # (A) 12.9 k/uL (1.3-7.7); Neutrophils % (A) 75 %; Platelet Count 297 k/uL (150-450); RBC 4.27 m/uL (3.80-5.40); RDW 20.2 % (11.5-15.5); WBC 17.3 k/uL (3.8-10.6)
[2024-12-17 05:26] LABS: African American GFR (CKD) >90 (>60 ml/min/1.73 sqM); Anion Gap 5 mmol/L; Blood Urea Nitrogen 19 mg/dL (7-17); Calcium 9.2 mg/dL (8.4-10.2); Carbon Dioxide 33 mmol/L (22-30); Chloride 96 mmol/L (98-107); Glucose 113 mg/dL (74-99); Non-African American GFR(CKD) >90 (>60 ml/min/1.73 sqM); Sodium 134 mmol/L (137-145)
[2024-12-17] MEDS: SYMBICORT 160-4.5 MCG INHALER INHALATION SCH (06:07)
[2024-12-17 06:16] LABS: Glucose,Whole Blood 99 mg/dL (70-110)
[2024-12-17] MEDS: lisinopriL 10 MG TAB PO SCH (08:17)
[2024-12-17] MEDS: ESCITALOPRAM 10 MG TAB PO SCH (08:17)
[2024-12-17] MEDS: amLODIPine 10 MG TAB PO SCH (08:17)
[2024-12-17] MEDS: ARIPiprazole 5 MG TAB PO SCH (08:17)
[2024-12-17 12:17] LABS: Glucose,Whole Blood 109 mg/dL (70-110)
--- NOTE | 2024-12-17 12:41 | P.PN ---
Subjective Progress Note Date: 12/17/24 SURGICAL PROGRESS NOTE CHIEF COMPLAINT: Partial small bowel obstruction HISTORY OF PRESENT ILLNESS: Patient continues to complain of abdominal pain. More on the left lower side of the abdomen next to her old midline incision. She has NG tube in place with 600 mL output through the night. Patient has had no bowel movements or flatus. She had no results with a suppository given yesterday. Afebrile. White count is down from 28-17 hemoglobin 10. Potassium down from 6-5.0 PHYSICAL EXAM: VITAL SIGNS: Reviewed. GENERAL: Well-developed in no acute distress. ABDOMEN: Soft. Nondistended. Tenderness with palpation to the left of the midline incision. No rebound or guarding. NEUROLOGIC: Alert and oriented. Cranial nerves II through XII. grossly intact. ASSESSMENT: 1. Partial small bowel obstruction with transition zone suggestive mid abdomen at the small bowel anastomotic site 2. History of prior abdominal surgeries 3. Hyperkalemia resolved PLAN: -Continue NG tube for decompression -Keep patient n.p.o. -Continue antibiotics -Resume IV fluids. Normal saline IV fluids at 75 mL/h -Clamp NG tube and have patient ambulate -GI prophylaxis Protonix and DVT prophylaxis Lovenox Physician Senior Sql Developer note has been reviewed by physician. Signing provider agrees with the documented findings, assessment, and plan of care. Objective - Vital Signs Vital signs: Vital Signs Temp 98.3 F 12/17/24 11:38 Pulse 68 12/17/24 11:38 Resp 18 12/17/24 11:38 BP 87/56 12/17/24 11:38 Pulse Ox 91 L 12/17/24 11:38 FiO2 Intake & Output 12/16/24 12/17/24 12/17/24 18:59 06:59 18:59 Intake Total 300 Output Total 600 Balance -300 Weight 90.718 kg Intake: Intake, IV Titration 300 Amount Ampicillin-Sulbactam 3 gm 100 In Sodium Chloride 0.9% 100 ml @ 200 mls/hr IVPB Q8HR [facility] Rx#:[id number] Sodium Chloride 0.9% 1, 200 000 ml @ 20 mls/hr IV . Q24H [facility]ANDA Rx#:[id number] Oral 0 Output: Gastric Drainage 600 Other: Voiding Method Bedside Commode # Voids 2 - Labs CBC & Chem 7: 12/17/24 04:48 12/17/24 04:48 Labs: Abnormal Lab Results - Last 24 Hours (Table) 12/16/24 12/16/24 12/16/24 Range/Units 14:42 18:53 23:58 WBC (3.8-10.6) k/uL Hgb (11.4-16.0) gm/dL MCH (25.0-35.0) pg MCHC (31.0-37.0) g/dL RDW (11.5-15.5) % Neutrophils # (1.3-7.7) k/uL Sodium (137-145) mmol/L Potassium 5.7 H (3.5-5.1) mmol/L Chloride (98-107) mmol/L Carbon Dioxide (22-30) mmol/L BUN (7-17) mg/dL Glucose (74-99) mg/dL POC Glucose (mg/dL) 135 H 116 H (70-110) mg/dL 12/17/24 12/17/24 Range/Units 04:48 04:48 WBC 17.3 H (3.8-10.6) k/uL Hgb 10.5 L (11.4-16.0) gm/dL MCH 24.6 L (25.0-35.0) pg MCHC 30.5 L (31.0-37.0) g/dL RDW 20.2 H (11.5-15.5) % Neutrophils # 12.9 H (1.3-7.7) k/uL Sodium 134 L (137-145) mmol/L Potassium (3.5-5.1) mmol/L Chloride 96 L (98-107) mmol/L Carbon Dioxide 33 H (22-30) mmol/L BUN 19 H (7-17) mg/dL Glucose 113 H (74-99) mg/dL POC Glucose (mg/dL) (70-110) mg/dL Assessment and Plan Assessment: small bowel follow through in am rule out closed obstruction Time with Patient: Less than 30
[2024-12-17] MEDS: SODIUM CHLORIDE 0.9% 1,000 ML IV SCH (12:42)
--- NOTE | 2024-12-17 13:36 | P.PN ---
Subjective Progress Note Date: 12/17/24 54-year-old female with a PMH of CAD status post CABG and multiple stents, bowel resection x 2 (most recently 07/14/2024), type II DM, hypertension, hyperlipidemia, COPD, bipolar disorder, who presents to the emergency room with complaints of abdominal pain with nausea and vomiting. The patient reports that her symptoms started 2 days ago and quickly worsened for which she was initially seen at an outside facility yesterday where she was given several oral medications and sent home for suspected bowel obstruction. The patient reports that her symptoms however have persisted which prompted her to come to the emergency room. She now reports at 8 out of 10 diffuse lower abdominal discomfort. Notes for episodes of none bloody emesis throughout the day today. Denies experiencing fever, chills, chest discomfort, or shortness of breath. In the CT abdomen pelvis in the emergency room, findings were consistent with early complete versus partial small bowel obstruction. Chest x-ray revealed an appropriately placed NG tube with EKG showing sinus rhythm with sinus arrhythmia at 63 bpm with no additional ST/T wave changes noted as reviewed by me. Laboratory evaluation was remarkable for lactic acid of 3.1 and subsequently 6.3. Sodium was 134, chloride 97, with respiratory viral panel negative. The patient did have an anaphylactic reaction after receiving contrast dye with hives, diaphoresis, tachycardia, and fever. She was given the cocktail for anaphylaxis including epinephrine, Solu-Medrol, Decadron, and Benadryl. 12/16 - Patient seen and examined at bedside this morning, remaining in the ED. States that her pain is much improved, however continues to fluctuate of being more and less severe. NG tube was placed last night/early this morning, and had been draining ~600 cc clearish fluid (at the time which the patient was evaluated). She had an episode of pulling out her NG tube accidentally, it was replaced with position confirmed by x-ray and suction restarted. 12/17 - Patient seen and examined at bedside today, now up on the fifth floor. She states that she continues to have intermittent discomfort, but on the whole feels as though she is feeling better. NG tube remains placed now draining a dark brownish type of fluid. She continues to endorse no successful flatus or bowel movements. REVIEW OF SYSTEMS: Pertinent positives and negatives noted in HPI. Physical Exam: General: nontoxic, no distress, appears at stated age Derm: warm, dry, intact Head: atraumatic, normocephalic, symmetric Eyes: EOMI, anicteric sclera Mouth: no lip lesion, mucus membranes moist Cardiovascular: S1 S2 reg, no murmur, rubs, or gallops Lungs: CTA bilateral, no rales, no accessory muscle use Abdominal: Tenderness to light palpation throughout entire abdomen with mild distention Extremities: no gross muscle atrophy, no edema, no contractures Neuro: Alert, Oriented, CNII-XII grossly intact, gait normal Psych: well appearing, appropriate affect Data Received Today: Labs: WBC is 28.8, hemoglobin 13.0, hematocrit 47.3, platelet 3 9; sodium 132, potassium 6.5, chloride 100, bicarb 24, BUN 12, creatinine 0.6, glucose 193, lactic acid 3.6, calcium 9.1 Imagining: Chest x-ray to confirm the placement of NG tube Assessment and plan 54-year-old female PMH of CAD s/p CABG and multiple stents, bowel resection x 2 (most recently 07/14/2024), type 2 diabetes mellitus, hypertension, hyperlipidemia, COPD, bipolar disorder who presented to the emergency room with complaints of worsening abdominal pain with nausea and vomiting. Symptoms began 2 days ago and have progressively worsened. #Small bowel obstruction, partial -Continue with NG tube with low intermittent suction to assist with decompression; clamp when possible to allow the patient to ambulate -Continue n.p.o. for now -Pain control and antiemetics -General Surgery consulted -Suppository placed at approximately 0400 on 12/17/2024, will reevaluate whether she is able to achieve some relief of her symptoms -Will continue to hold Plavix secondary to possibility of surgical intervention -Repeat CBC and BMP in the a.m. -NS at 75 cc/h -Continue with Unasyn 3 g every 8 hours #Lactic acidosis, resolved -Monitor lactic acid levels until resolution -Trend: 3.1 -> 6.3 -> 4.0 -> 4.6 -> 3.6 -> 2.0 #Hyperkalemia, resolved -Potassium this morning 5.0 -Continue to monitor BMP #Hyponatremia, improving -Na 134 today -Continue to monitor BMP #Hypochloremia -Chloride 96 today -Continue monitor BMP Chronic conditions: #CAD #Type 2 diabetes mellitus #Hypertension #Hyperlipidemia #COPD #Bipolar disorder -Resumed home meds other than those listed below -Holding Plavix, fark [employer], Benadryl -Initiated on sliding scale every 6 hours DVT ppx: Lovenox 40 mg subcu daily GI PPx: Protonix 40 mg twice daily Code status: Full code Anticipated discharge place: Pending clinical course Anticipated discharge time: Pending clinical course Dictation was produced using [employer] dictation software. please excuse any grammatical, word or spelling errors. I saw and evaluated the patient during the owusu and critical portions of this encounter, and discussed the case in detail with the resident author of this note, I agree with the Assessment and Plan, and my changes, if any, are highlighted in blue. Objective - Vital Signs Vital signs: Vital Signs Temp 98.3 F 12/17/24 11:38 Pulse 71 12/17/24 12:40 Resp 18 12/17/24 11:38 BP 97/59 12/17/24 12:40 Pulse Ox 96 12/17/24 12:40 FiO2 Intake & Output 12/16/24 12/17/24 12/17/24 18:59 06:59 18:59 Intake Total 300 Output Total 600 Balance -300 Weight 90.718 kg Intake: Intake, IV Titration 300 Amount Ampicillin-Sulbactam 3 gm 100 In Sodium Chloride 0.9% 100 ml @ 200 mls/hr IVPB Q8HR [facility] Rx#:[id number] Sodium Chloride 0.9% 1, 200 000 ml @ 20 mls/hr IV . Q24H [facility] Rx#:[id number] Oral 0 Output: Gastric Drainage 600 Other: Voiding Method Bedside Commode # Voids 2 1 - Labs CBC & Chem 7: 12/17/24 04:48 12/17/24 04:48 Labs: Abnormal Lab Results - Last 24 Hours (Table) 12/16/24 12/16/24 12/16/24 Range/Units 14:42 18:53 23:58 WBC (3.8-10.6) k/uL Hgb (11.4-16.0) gm/dL MCH (25.0-35.0) pg MCHC (31.0-37.0) g/dL RDW (11.5-15.5) % Neutrophils # (1.3-7.7) k/uL Sodium (137-145) mmol/L Potassium 5.7 H (3.5-5.1) mmol/L Chloride (98-107) mmol/L Carbon Dioxide (22-30) mmol/L BUN (7-17) mg/dL Glucose (74-99) mg/dL POC Glucose (mg/dL) 135 H 116 H (70-110) mg/dL 12/17/24 12/17/24 Range/Units 04:48 04:48 WBC 17.3 H (3.8-10.6) k/uL Hgb 10.5 L (11.4-16.0) gm/dL MCH 24.6 L (25.0-35.0) pg MCHC 30.5 L (31.0-37.0) g/dL RDW 20.2 H (11.5-15.5) % Neutrophils # 12.9 H (1.3-7.7) k/uL Sodium 134 L (137-145) mmol/L Potassium (3.5-5.1) mmol/L Chloride 96 L (98-107) mmol/L Carbon Dioxide 33 H (22-30) mmol/L BUN 19 H (7-17) mg/dL Glucose 113 H (74-99) mg/dL POC Glucose (mg/dL) (70-110) mg/dL
[2024-12-17 17:46] LABS: Glucose,Whole Blood 99 mg/dL (70-110)
[2024-12-17] MEDS: NYSTATIN 100,000 UNIT/ML SUSP 500,000 UNIT/5 ML CUP PO SCH (21:07)
[2024-12-17 23:49] LABS: Glucose,Whole Blood 105 mg/dL (70-110)
[2024-12-18 05:49] LABS: Glucose,Whole Blood 97 mg/dL (70-110)
[2024-12-18 08:34] LABS: BUN/Creat Ratio 17.22 Ratio (12.00-20.00); Blood Urea Nitrogen 15.5 mg/dL (9.0-27.0); Calcium 8.8 mg/dL (8.7-10.3); Carbon Dioxide 31.8 mmol/L (21.6-31.8); Chloride 99 mmol/L (96-109); Glucose 94 mg/dL (70-110); Potassium 4.8 mmol/L (3.5-5.5); Sodium 139 mmol/L (135-145)
[2024-12-18 08:35] LABS: Basophils # (A) 0.04 X 10*3/uL (0.00-0.10); Basophils % (A) 0.4 %; Eosinophils # (A) 0.15 X 10*3/uL (0.04-0.35); Eosinophils % (A) 1.4 %; HGB 9.9 g/dL (12.0-15.0); Lymphocytes # (A) 3.74 X 10*3/uL (0.90-5.00); Lymphocytes % (A) 35.2 %; MCH 24.6 pg (27.0-32.0); MCV 82.1 FL (80.0-97.0); Mean Platelet Volume 10.8 FL (9.5-12.2); Monocytes # (A) 0.96 X 10*3/uL (0.20-1.00); NRBC Per 100 WBC 0 X 10*3/uL (0.00-0.01); Neutrophils # (A) 5.68 X 10*3/uL (1.80-7.70); Neutrophils % (A) 53.4 %; Platelet Count 285 X 10*3/uL (140-440); RBC 4.02 X 10*6/uL (4.10-5.20); RDW 21.8 % (11.5-14.5); WBC 10.63 X 10*3/uL (4.50-10.00)
[2024-12-18] MEDS: LACTATED RINGERS 1,000 ML IV ONE (10:55)
--- NOTE | 2024-12-18 11:57 | P.PN ---
Subjective Progress Note Date: 12/18/24 54-year-old female with a PMH of CAD status post CABG and multiple stents, bowel resection x 2 (most recently 07/14/2024), type II DM, hypertension, hyperlipidemia, COPD, bipolar disorder, who presents to the emergency room with complaints of abdominal pain with nausea and vomiting. The patient reports that her symptoms started 2 days ago and quickly worsened for which she was initially seen at an outside facility yesterday where she was given several oral medications and sent home for suspected bowel obstruction. The patient reports that her symptoms however have persisted which prompted her to come to the emergency room. She now reports at 8 out of 10 diffuse lower abdominal discomfort. Notes for episodes of none bloody emesis throughout the day today. Denies experiencing fever, chills, chest discomfort, or shortness of breath. In the CT abdomen pelvis in the emergency room, findings were consistent with early complete versus partial small bowel obstruction. Chest x-ray revealed an appropriately placed NG tube with EKG showing sinus rhythm with sinus arrhythmia at 63 bpm with no additional ST/T wave changes noted as reviewed by me. Laboratory evaluation was remarkable for lactic acid of 3.1 and subsequently 6.3. Sodium was 134, chloride 97, with respiratory viral panel negative. The patient did have an anaphylactic reaction after receiving contrast dye with hives, diaphoresis, tachycardia, and fever. She was given the cocktail for anaphylaxis including epinephrine, Solu-Medrol, Decadron, and Benadryl. 12/16 - Patient seen and examined at bedside this morning, remaining in the ED. States that her pain is much improved, however continues to fluctuate of being more and less severe. NG tube was placed last night/early this morning, and had been draining ~600 cc clearish fluid (at the time which the patient was evaluated). She had an episode of pulling out her NG tube accidentally, it was replaced with position confirmed by x-ray and suction restarted. 12/17 - Patient seen and examined at bedside today, now up on the fifth floor. She states that she continues to have intermittent discomfort, but on the whole feels as though she is feeling better. NG tube remains placed now draining a dark brownish type of fluid. She continues to endorse no successful flatus or bowel movements. 12/18 - Patient seen and examined at bedside today. States that she continues to intermittent pain as before. Still no passage of flatus or bowel movement. She continues to get up and walk around as she tolerates. She has had episodic hypotension, with blood pressure this morning 76/48. At the time she was given 1 L bolus of lactated ringer and her hypertension medications including amlodipine, lisinopril and Imdur were all held. She states that she was feeling a little bit lightheaded at the time however has no other complaints at this time. REVIEW OF SYSTEMS: Pertinent positives and negatives noted in HPI. Physical Exam: General: nontoxic, no distress, appears at stated age Derm: warm, dry, intact Head: atraumatic, normocephalic, symmetric Eyes: EOMI, anicteric sclera Mouth: no lip lesion, mucus membranes moist Cardiovascular: S1 S2 reg, no murmur, rubs, or gallops Lungs: CTA bilateral, no rales, no accessory muscle use Abdominal: Tenderness to light palpation throughout entire abdomen with mild distention Extremities: no gross muscle atrophy, no edema, no contractures Neuro: Alert, Oriented, CNII-XII grossly intact, gait normal Psych: well appearing, appropriate affect Data Received Today: Labs: WBCs 10.63, hemoglobin 9.9, hematocrit 33.0; sodium 139, potassium 4.8, BUN 15.5, creatinine 0.9, calcium 8.8 Imagining: No new imaging today Assessment and plan 54-year-old female PMH of CAD s/p CABG and multiple stents, bowel resection x 2 (most recently 07/14/2024), type 2 diabetes mellitus, hypertension, hyperlipi demia, COPD, bipolar disorder who presented to the emergency room with complaints of worsening abdominal pain with nausea and vomiting. Symptoms began 2 days ago and have progressively worsened. #Small bowel obstruction, partial -Continue with NG tube with low intermittent suction to assist with decompression; clamp when possible to allow the patient to ambulate -Continue n.p.o. for now -Pain control and antiemetics -General Surgery consulted -Suppository placed at approximately 0400 on 12/17/2024, will reevaluate whether she is able to achieve some relief of her symptoms -Will continue to hold Plavix secondary to possibility of surgical intervention -Repeat CBC and BMP in the a.m. -NS at 75 cc/h -Continue with Unasyn 3 g every 8 hours #Lactic acidosis, resolved -Monitor lactic acid levels until resolution -Trend: 3.1 -> 6.3 -> 4.0 -> 4.6 -> 3.6 -> 2.0 #Hyperkalemia, resolved -Potassium this morning 4.8 -Continue to monitor BMP #Hyponatremia, resolved -Na 139 today -Continue to monitor BMP #Hypochloremia, resolved -Chloride 99 today -Continue monitor BMP Chronic conditions: #CAD #Type 2 diabetes mellitus #Hypertension #Hyperlipidemia #COPD #Bipolar disorder -Resumed home meds other than those listed below -Holding Plavix, fark [employer], Benadryl -Initiated on sliding scale every 6 hours -Holding hypertension medications including amlodipine, lisinopril as well as Imdur due to hypotension 76/48 DVT ppx: Lovenox 40 mg subcu daily GI PPx: Protonix 40 mg twice daily Code status: Full code Anticipated discharge place: Pending clinical course Anticipated discharge time: Pending clinical course Dictation was produced using [employer] dictation software. please excuse any grammatical, word or spelling errors. I have seen and evaluated the patient today. Discussed with the resident and agree with the residents finding and plan as documented in the resident's note. Changes highlighted in blue font. Objective - Vital Signs Vital signs: Vital Signs Temp 98.2 F 12/18/24 01:23 Pulse 69 12/18/24 01:23 Resp 12 12/18/24 01:23 BP 112/68 12/18/24 01:23 Pulse Ox 94 L 12/18/24 01:23 FiO2 Intake & Output 12/17/24 12/18/24 12/18/24 18:59 06:59 18:59 Intake Total 1000 925 Output Total 400 Balance 600 925 Intake: Intake, IV Titration 1000 925 Amount Ampicillin-Sulbactam 3 gm 100 100 In Sodium Chloride 0.9% 100 ml @ 200 mls/hr IVPB Q8HR [facility] Rx#:[id number] Sodium Chloride 0.9% 1, 900 000 ml @ 20 mls/hr IV . Q24H [facility] Rx#:[id number] Sodium Chloride 0.9% 1, 825 000 ml @ 75 mls/hr IV . [id number] [facility] Rx#:[id number] Output: Gastric Drainage 400 Other: Voiding Method Bedside Commode # Voids 1 1 - Labs CBC & Chem 7: 12/18/24 05:07 12/18/24 05:07
[2024-12-18 12:51] LABS: Glucose,Whole Blood 86 mg/dL (70-110)
--- NOTE | 2024-12-18 13:08 | P.PN ---
Subjective Progress Note Date: 12/18/24 SURGICAL PROGRESS NOTE CHIEF COMPLAINT: Partial small bowel obstruction HISTORY OF PRESENT ILLNESS: Patient continues to complain that she is not feeling any better. She still has abdominal pain. She is requiring IV pain medication. No bowel movements or flatus. NG tube with 400 mL output last night and 200 mL output this morning clearish in color. Afebrile. BP 91/60. Medicine service has ordered a fluid bolus and adjusted BP meds. WBC is down from 17.3-10.63 Hgb 9.9 platelets 285 PHYSICAL EXAM: VITAL SIGNS: Reviewed. GENERAL: Well-developed in no acute distress. ABDOMEN: Soft. Nondistended. Tenderness with palpation to the left of the midline incision. No rebound or guarding. NEUROLOGIC: Alert and oriented. Cranial nerves II through XII. grossly intact. ASSESSMENT: 1. Partial small bowel obstruction with transition zone suggestive mid abdomen at the small bowel anastomotic site 2. History of prior abdominal surgeries PLAN: -Small bowel follow-through ordered for tomorrow with Gastrografin. Patient will be premedicated for iodine allergy -Continue NG tube for decompression -Keep patient n.p.o. -Continue antibiotics -Increase IV fluids to 100 mL/h -Encourage patient to increase activity level -GI prophylaxis Protonix and DVT prophylaxis Lovenox Physician Pullboat Engineer note has been reviewed by physician. Signing provider agrees with the documented findings, assessment, and plan of care. Objective - Vital Signs Vital signs: Vital Signs Temp 98.6 F 12/18/24 08:48 Pulse 54 L 12/18/24 08:48 Resp 17 12/18/24 08:48 BP 91/60 12/18/24 09:00 Pulse Ox 91 L 12/18/24 09:00 FiO2 Intake & Output 12/17/24 12/18/24 12/18/24 18:59 06:59 18:59 Intake Total 1000 925 Output Total 400 Balance 600 925 Intake: Intake, IV Titration 1000 925 Amount Ampicillin-Sulbactam 3 gm 100 100 In Sodium Chloride 0.9% 100 ml @ 200 mls/hr IVPB Q8HR [facility] Rx#:[id number] Sodium Chloride 0.9% 1, 900 000 ml @ 20 mls/hr IV . Q24H [facility] Rx#:[id number] Sodium Chloride 0.9% 1, 825 000 ml @ 75 mls/hr IV . [id number] [facility] Rx#:[id number] Output: Gastric Drainage 400 Other: Voiding Method Bedside Commode # Voids 1 1 - Labs CBC & Chem 7: 12/19/24 04:33 12/19/24 04:33 Labs: Abnormal Lab Results - Last 24 Hours (Table) 12/18/24 Range/Units 05:07 WBC 10.63 H (4.50-10.00) X 10*3/uL RBC 4.02 L (4.10-5.20) X 10*6/uL Hgb 9.9 L (12.0-15.0) g/dL Hct 33.0 L (37.2-46.3) % MCH 24.6 L (27.0-32.0) pg MCHC 30.0 L (32.0-37.0) g/dL RDW 21.8 H (11.5-14.5) % Immature Gran # 0.06 H (0.00-0.04) X 10*3/uL Assessment and Plan Assessment: rule out bowel obstruction -follow up small bowel follow through Time with Patient: Less than 30
[2024-12-18 17:10] LABS: Glucose,Whole Blood 82 mg/dL (70-110)
[2024-12-18] MEDS ORDERED: BENZOCAINE SPRAY 1 CAN MUCOUS MEM PRN (17:32)
[2024-12-18] MEDS: BENZOCAINE SPRAY 1 EACH MUCOUS MEM PRN (18:24)
[2024-12-18 20:24] LABS: Glucose,Whole Blood 85 mg/dL (70-110)
[2024-12-19] MEDS: FAMOTIDINE 20 MG/2 ML VIAL IV ONE (02:02)
[2024-12-19] MEDS: methylPREDNISolone SOD SUCCI 125 MG/2 ML VIAL IV ONE (02:03)
[2024-12-19] MEDS: diphenhydrAMINE 50 MG/ML 1 ML VIAL IVP ONE (02:05)
[2024-12-19 06:07] LABS: Glucose,Whole Blood 118 mg/dL (70-110)
[2024-12-19 08:38] LABS: BUN/Creat Ratio 12.75 Ratio (12.00-20.00); Basophils # (A) 0.04 X 10*3/uL (0.00-0.10); Basophils % (A) 0.4 %; Blood Urea Nitrogen 10.2 mg/dL (9.0-27.0); Carbon Dioxide 29.2 mmol/L (21.6-31.8); Chloride 106 mmol/L (96-109); Eosinophils # (A) 0.08 X 10*3/uL (0.04-0.35); Eosinophils % (A) 0.9 %; Glucose 114 mg/dL (70-110); HCT 34.2 % (37.2-46.3); HGB 10.2 g/dL (12.0-15.0); MCH 24.1 pg (27.0-32.0); MCHC 29.8 g/dL (32.0-37.0); MCV 80.9 FL (80.0-97.0); Mean Platelet Volume 10.5 FL (9.5-12.2); Monocytes # (A) 0.22 X 10*3/uL (0.20-1.00); Monocytes % (A) 2.4 %; NRBC Per 100 WBC 0 X 10*3/uL (0.00-0.01); Neutrophils # (A) 7.67 X 10*3/uL (1.80-7.70); Neutrophils % (A) 85.5 %; Platelet Count 268 X 10*3/uL (140-440); Potassium 4.6 mmol/L (3.5-5.5); RBC 4.23 X 10*6/uL (4.10-5.20); RDW 21.6 % (11.5-14.5); Sodium 146 mmol/L (135-145); WBC 8.98 X 10*3/uL (4.50-10.00)
--- NOTE | 2024-12-19 08:44 | XR ---
EXAMINATION TYPE: XR abdomen 1V DATE OF EXAM: 12/19/2024 8:34 AM CLINICAL INDICATION: Female, 54 years old with history of ABD PAIN, PRELIM FOR SBFT, pain TECHNIQUE: 2 supine images of the abdomen. COMPARISON: CT abdomen and pelvis 4 days earlier. FINDINGS: Contrast has progressed into distal small bowel loops and proximal colonic loops. Gas is se en in nondistended rectum and stomach. Some vascular calcification phleboliths in the pelvis are present. There is no nasogastric tube exten ding below diaphragm. Lung bases remain clear. Overlying sternal wires are redemonstrated. Coronary a rtery stent is noted. IMPRESSION: Overall nonspecific bowel gas pattern. No complete distal small bowel obstruction is pres ent. [facility], , 12/19/2024 8:41 AM
[2024-12-19 11:58] LABS: Glucose,Whole Blood 135 mg/dL (70-110)
[2024-12-19] MEDS: lisinopriL 10 MG TAB PO SCH (12:51)
[2024-12-19] MEDS: DEXTROSE 5%-0.45% NACL 1,000 ML IV SCH (12:51)
--- NOTE | 2024-12-19 14:22 | P.PN ---
Subjective Progress Note Date: 12/19/24 Patient seen and examined at bedside. States she began having flatus last night and this morning. Attempt was made at small bowel series this morning, however patient continues to have contrast from previous CT but it is noted in the colon. Objective - Vital Signs Vital signs: Vital Signs Temp 98.3 F 12/19/24 11:57 Pulse 59 L 12/19/24 11:57 Resp 18 12/19/24 11:57 BP 130/73 12/19/24 11:57 Pulse Ox 94 L 12/19/24 11:57 FiO2 Intake & Output 12/18/24 12/19/24 12/19/24 18:59 06:59 18:59 Output Total 300 900 Balance -300 -900 Output: Gastric Drainage 300 200 Urine 700 Other: Voiding Method Toilet Toilet Toilet # Voids 2 4 - Constitutional General appearance: Present: cooperative - Gastrointestinal Gastrointestinal Comment(s): Soft, nontender, nondistended - Labs CBC & Chem 7: 12/19/24 04:33 12/19/24 04:33 Labs: Abnormal Lab Results - Last 24 Hours (Table) 12/19/24 12/19/24 12/19/24 Range/Units 04:33 04:33 06:06 Hgb 10.2 L (12.0-15.0) g/dL Hct 34.2 L (37.2-46.3) % MCH 24.1 L (27.0-32.0) pg MCHC 29.8 L (32.0-37.0) g/dL RDW 21.6 H (11.5-14.5) % Immature Gran # 0.07 H (0.00-0.04) X 10*3/uL Sodium 146 H (135-145) mmol/L Glucose 114 H (70-110) mg/dL POC Glucose (mg/dL) 118 H (70-110) mg/dL 12/19/24 Range/Units 11:56 Hgb (12.0-15.0) g/dL Hct (37.2-46.3) % MCH (27.0-32.0) pg MCHC (32.0-37.0) g/dL RDW (11.5-14.5) % Immature Gran # (0.00-0.04) X 10*3/uL Sodium (135-145) mmol/L Glucose (70-110) mg/dL POC Glucose (mg/dL) 135 H (70-110) mg/dL Assessment and Plan Plan: 54-year-old female with concern for small bowel obstruction. Currently, on imaging contrast is noted to advance to the colon and patient is beginning to have bowel function with flatus. Recommend advancing diet to clear liquid diet. If patient tolerates this we can remove nasogastric tube. Patient is agreeable with this plan.
--- NOTE | 2024-12-19 14:31 | P.PN ---
Subjective Progress Note Date: 12/19/24 54-year-old female with a PMH of CAD status post CABG and multiple stents, bowel resection x 2 (most recently 07/14/2024), type II DM, hypertension, hyperlipidemia, COPD, bipolar disorder, who presents to the emergency room with complaints of abdominal pain with nausea and vomiting. The patient reports that her symptoms started 2 days ago and quickly worsened for which she was initially seen at an outside facility yesterday where she was given several oral medications and sent home for suspected bowel obstruction. The patient reports that her symptoms however have persisted which prompted her to come to the emergency room. She now reports at 8 out of 10 diffuse lower abdominal discomfort. Notes for episodes of none bloody emesis throughout the day today. Denies experiencing fever, chills, chest discomfort, or shortness of breath. In the CT abdomen pelvis in the emergency room, findings were consistent with early complete versus partial small bowel obstruction. Chest x-ray revealed an appropriately placed NG tube with EKG showing sinus rhythm with sinus arrhythmia at 63 bpm with no additional ST/T wave changes noted as reviewed by me. Laboratory evaluation was remarkable for lactic acid of 3.1 and subsequently 6.3. Sodium was 134, chloride 97, with respiratory viral panel negative. The patient did have an anaphylactic reaction after receiving contrast dye with hives, diaphoresis, tachycardia, and fever. She was given the cocktail for anaphylaxis including epinephrine, Solu-Medrol, Decadron, and Benadryl. 12/16 - Patient seen and examined at bedside this morning, remaining in the ED. States that her pain is much improved, however continues to fluctuate of being more and less severe. NG tube was placed last night/early this morning, and had been draining ~600 cc clearish fluid (at the time which the patient was evaluated). She had an episode of pulling out her NG tube accidentally, it was replaced with position confirmed by x-ray and suction restarted. 12/17 - Patient seen and examined at bedside today, now up on the fifth floor. She states that she continues to have intermittent discomfort, but on the whole feels as though she is feeling better. NG tube remains placed now draining a dark brownish type of fluid. She continues to endorse no successful flatus or bowel movements. 12/18 - Patient seen and examined at bedside today. States that she continues to intermittent pain as before. Still no passage of flatus or bowel movement. She continues to get up and walk around as she tolerates. She has had episodic hypotension, with blood pressure this morning 76/48. At the time she was given 1 L bolus of lactated ringer and her hypertension medications including amlodipine, lisinopril and Imdur were all held. She states that she was feeling a little bit lightheaded at the time however has no other complaints at this time. 12/19 - Patient seen and examined at bedside this morning. She continues to have intermittent pain, the same as before. She endorses having flatus last night and this morning. Following her episode of hypotension yesterday morning her antihypertensive medications were held, however was noted to have been hypertensive earlier this morning and her lisinopril was restarted at 10 mg daily. Attempt was made for her to undergo a small bowel series this morning, however was not achieved. On abdominal x-ray it was noted that contrast did advanced to the colon. Her pain remains "about the same" as it has been. She has no acute complaints at this time. REVIEW OF SYSTEMS: Pertinent positives and negatives noted in HPI. Physical Exam: General: nontoxic, no distress, appears at stated age Derm: warm, dry, intact Head: atraumatic, normocephalic, symmetric Eyes: EOMI, anicteric sclera Mouth: no lip lesion, mucus membranes moist Cardiovascular: S1 S2 reg, no murmur, rubs, or gallops Lungs: CTA bilateral, no rales, no accessory muscle use Abdominal: Tenderness to light palpation throughout entire abdomen with mild distention Extremities: no gross muscle atrophy, no edema, no contractures Neuro: Alert, Oriented, CNII-XII grossly intact, gait normal Psych: well appearing, appropriate affect Data Received Today: Labs: WBCs 8.98, hemoglobin 10.2, hematocrit 34.2, platelet 268; sodium 146, potassium 4.6, BUN 10.2, creatinine 0.8, calcium 9.0 Imagining: Abdominal x-ray which showed contrast progressed to the distal small bowel loops and proximal colonic loops, without evidence of complete distal small bowel obstruction. Assessment and plan 54-year-old female PMH of CAD s/p CABG and multiple stents, bowel resection x 2 (most recently 07/14/2024), type 2 diabetes mellitus, hypertension, hyperlipidemia, COPD, bipolar disorder who presented to the emergency room with complaints of worsening abdominal pain with nausea and vomiting. Symptoms began 2 days ago and have progressively worsened. #Small bowel obstruction, partial -Continue with NG tube with low intermittent suction to assist with decompression; clamp when possible to allow the patient to ambulate -Diet advanced to clear liquid, if tolerated NG tube can be removed -Pain control and antiemetics -General Surgery consulted -Suppository placed at approximately 0400 on 12/17/2024, began having episodic flatus yesterday afternoon -Will continue to hold Plavix secondary to possibility of surgical intervention -Small bowel unable to be completed earlier, abdominal x-ray did show contrast advanced into the distal small bowel loops and proximal colonic loops -Repeat CBC and BMP in the a.m. -Normal saline discontinued -Started on D5W half-normal at 100 cc/h -Continue with Unasyn 3 g every 8 hours #Hypernatremia, likely due to inadequate oral intake secondary to partial bowel obstruction -Sodium this morning showed to be 146 -Normal saline discontinued -Started on D5 W half-normal at 100 cc/h -Will continue to monitor BMP #Lactic acidosis, resolved -Monitor lactic acid levels until resolution -Trend: 3.1 -> 6.3 -> 4.0 -> 4.6 -> 3.6 -> 2.0 #Hyperkalemia, resolved #Hyponatremia, resolved #Hypochloremia, resolved -Continue monitor BMP Chronic conditions: #CAD #Type 2 diabetes mellitus #Hypertension #Hyperlipidemia #COPD #Bipolar disorder -Resumed home meds other than those listed below -Holding Plavix, Farxiga, Benadryl -Initiated on sliding scale every 6 hours -Holding hypertension medications including amlodipine and Imdur due to episodic hypotension on 12/18/2024 -Episodic hypertension overnight, restarted lisinopril 10 mg daily DVT ppx: Lovenox 40 mg subcu daily GI PPx: Protonix 40 mg twice daily Code status: Full code Anticipated discharge place: Pending clinical course Anticipated discharge time: Pending clinical course Dictation was produced using [email or web address] dictation software. please excuse any grammatical, word or spelling errors. I have seen and evaluated the patient today. Discussed with the resident and agree with the residents finding and plan as documented in the resident's note. Changes highlighted in blue font. Objective - Vital Signs Vital signs: Vital Signs Temp 96.5 F L 12/19/24 02:35 Pulse 84 12/19/24 02:35 Resp 14 12/19/24 02:35 BP 177/105 12/19/24 02:35 Pulse Ox 99 12/19/24 02:35 FiO2 Intake & Output 12/18/24 12/19/24 12/19/24 18:59 06:59 18:59 Output Total 300 900 Balance -300 -900 Output: Gastric Drainage 300 200 Urine 700 Other: Voiding Method Toilet Toilet # Voids 2 4 - Labs CBC & Chem 7: 12/19/24 04:33 12/19/24 04:33 Labs: Abnormal Lab Results - Last 24 Hours (Table) 12/18/24 12/19/24 Range/Units 05:07 06:06 WBC 10.63 H (4.50-10.00) X 10*3/uL RBC 4.02 L (4.10-5.20) X 10*6/uL Hgb 9.9 L (12.0-15.0) g/dL Hct 33.0 L (37.2-46.3) % MCH 24.6 L (27.0-32.0) pg MCHC 30.0 L (32.0-37.0) g/dL RDW 21.8 H (11.5-14.5) % Immature Gran # 0.06 H (0.00-0.04) X 10*3/uL POC Glucose (mg/dL) 118 H (70-110) mg/dL
[2024-12-19 17:08] LABS: Glucose,Whole Blood 144 mg/dL (70-110)
[2024-12-19] MEDS ORDERED: ACETAMINOPHEN TAB 325 MG TAB PO PRN (20:12)
[2024-12-20 00:13] LABS: Glucose,Whole Blood 159 mg/dL (70-110)
[2024-12-20] MEDS: HYDROcodone/APAP 5-325MG 1 EACH TAB PO STA (05:57)
[2024-12-20 06:17] LABS: Anisocytosis Slight; Basophils % (A) 0 %; Eosinophils % (A) 1 %; HCT 33.5 % (34.0-46.0); HGB 10.3 gm/dL (11.4-16.0); Hypochromasia Marked; Lymphocytes # (A) 1.9 k/uL (1.0-4.8); Lymphocytes % (A) 21 %; MCH 24.6 pg (25.0-35.0); MCHC 30.8 g/dL (31.0-37.0); Mean Platelet Volume 8.2; Microcytosis Slight; Monocytes # (A) 0.6 k/uL (0-1.0); Monocytes % (A) 7 %; Neutrophils # (A) 6.4 k/uL (1.3-7.7); Neutrophils % (A) 69 %; Platelet Count 284 k/uL (150-450); RBC 4.18 m/uL (3.80-5.40); RDW 19.8 % (11.5-15.5); WBC 9.2 k/uL (3.8-10.6)
[2024-12-20 06:31] LABS: African American GFR (CKD) >90 (>60 ml/min/1.73 sqM); Anion Gap 7 mmol/L; Blood Urea Nitrogen 11 mg/dL (7-17); Calcium 8.9 mg/dL (8.4-10.2); Carbon Dioxide 26 mmol/L (22-30); Chloride 99 mmol/L (98-107); Glucose 132 mg/dL (74-99); Non-African American GFR(CKD) >90 (>60 ml/min/1.73 sqM); Potassium 4.1 mmol/L (3.5-5.1); Sodium 132 mmol/L (137-145)
--- NOTE | 2024-12-20 06:49 | P.PN ---
Subjective Progress Note Date: 12/20/24 Patient seen and examined at bedside. Tolerating clear liquid diet and nasogastric tube was removed. States she is still having flatus, no bowel movement. Objective - Vital Signs Vital signs: Vital Signs Temp 98 F 12/20/24 00:17 Pulse 69 12/20/24 00:17 Resp 16 12/20/24 00:17 BP 122/80 12/20/24 00:17 Pulse Ox 98 12/20/24 00:17 FiO2 Intake & Output 12/19/24 12/19/24 12/20/24 06:59 18:59 06:59 Intake Total 480 240 Output Total 900 500 Balance -900 -20 240 Intake: Oral 480 240 Output: Gastric Drainage 200 500 Urine 700 Other: Voiding Method Toilet Toilet Toilet # Voids 4 3 3 - Constitutional General appearance: Present: cooperative, no acute distress - Gastrointestinal Gastrointestinal Comment(s): Soft, nontender, nondistended, no rebound or guarding - Labs CBC & Chem 7: 12/20/24 05:19 12/20/24 05:19 Labs: Abnormal Lab Results - Last 24 Hours (Table) 12/19/24 12/19/24 12/19/24 Range/Units 04:33 04:33 11:56 Hgb 10.2 L (12.0-15.0) g/dL Hct 34.2 L (37.2-46.3) % MCH 24.1 L (27.0-32.0) pg MCHC 29.8 L (32.0-37.0) g/dL RDW 21.6 H (11.5-14.5) % Immature Gran # 0.07 H (0.00-0.04) X 10*3/uL Sodium 146 H (135-145) mmol/L Glucose 114 H (70-110) mg/dL POC Glucose (mg/dL) 135 H (70-110) mg/dL 12/19/24 12/20/24 12/20/24 Range/Units 17:07 00:12 05:19 Hgb 10.3 L (12.0-15.0) g/dL Hct 33.5 L (37.2-46.3) % MCH 24.6 L (27.0-32.0) pg MCHC 30.8 L (32.0-37.0) g/dL RDW 19.8 H (11.5-14.5) % Immature Gran # (0.00-0.04) X 10*3/uL Sodium (135-145) mmol/L Glucose (70-110) mg/dL POC Glucose (mg/dL) 144 H 159 H (70-110) mg/dL 12/20/24 Range/Units 05:19 Hgb (12.0-15.0) g/dL Hct (37.2-46.3) % MCH (27.0-32.0) pg MCHC (32.0-37.0) g/dL RDW (11.5-14.5) % Immature Gran # (0.00-0.04) X 10*3/uL Sodium 132 L (135-145) mmol/L Glucose 132 H (70-110) mg/dL POC Glucose (mg/dL) (70-110) mg/dL Assessment and Plan Plan: 54-year-old female with partial small bowel obstruction that appears to be resolving. Tolerating clear liquid diet. Will advance to full liquid diet. Await further bowel function.
[2024-12-20 07:32] LABS: Glucose,Whole Blood 120 mg/dL (70-110)
[2024-12-20] MEDS: INSULIN LISPRO (HumaLOG) 100 UNIT/ML 10 mL VL SQ SCH (07:51)
[2024-12-20] MEDS: IBUPROFEN 800 MG TAB PO PRN (08:56)
[2024-12-20 12:10] LABS: Glucose,Whole Blood 91 mg/dL (70-110)
--- NOTE | 2024-12-20 12:49 | P.PN ---
Subjective Progress Note Date: 12/20/24 54-year-old female with a PMH of CAD status post CABG and multiple stents, bowel resection x 2 (most recently 07/14/2024), type II DM, hypertension, hyperlipidemia, COPD, bipolar disorder, who presents to the emergency room with complaints of abdominal pain with nausea and vomiting. The patient reports that her symptoms started 2 days ago and quickly worsened for which she was initially seen at an outside facility yesterday where she was given several oral medications and sent home for suspected bowel obstruction. The patient reports that her symptoms however have persisted which prompted her to come to the emergency room. She now reports at 8 out of 10 diffuse lower abdominal discomfort. Notes for episodes of none bloody emesis throughout the day today. Denies experiencing fever, chills, chest discomfort, or shortness of breath. In the CT abdomen pelvis in the emergency room, findings were consistent with early complete versus partial small bowel obstruction. Chest x-ray revealed an appropriately placed NG tube with EKG showing sinus rhythm with sinus arrhythmia at 63 bpm with no additional ST/T wave changes noted as reviewed by me. Laboratory evaluation was remarkable for lactic acid of 3.1 and subsequently 6.3. Sodium was 134, chloride 97, with respiratory viral panel negative. The patient did have an anaphylactic reaction after receiving contrast dye with hives, diaphoresis, tachycardia, and fever. She was given the cocktail for anaphylaxis including epinephrine, Solu-Medrol, Decadron, and Benadryl. 12/16 - Patient seen and examined at bedside this morning, remaining in the ED. States that her pain is much improved, however continues to fluctuate of being more and less severe. NG tube was placed last night/early this morning, and had been draining ~600 cc clearish fluid (at the time which the patient was evaluated). She had an episode of pulling out her NG tube accidentally, it was replaced with position confirmed by x-ray and suction restarted. 12/17 - Patient seen and examined at bedside today, now up on the fifth floor. She states that she continues to have intermittent discomfort, but on the whole feels as though she is feeling better. NG tube remains placed now draining a dark brownish type of fluid. She continues to endorse no successful flatus or bowel movements. 12/18 - Patient seen and examined at bedside today. States that she continues to intermittent pain as before. Still no passage of flatus or bowel movement. She continues to get up and walk around as she tolerates. She has had episodic hypotension, with blood pressure this morning 76/48. At the time she was given 1 L bolus of lactated ringer and her hypertension medications including amlodipine, lisinopril and Imdur were all held. She states that she was feeling a little bit lightheaded at the time however has no other complaints at this time. 12/19 - Patient seen and examined at bedside this morning. She continues to have intermittent pain, the same as before. She endorses having flatus last night and this morning. Following her episode of hypotension yesterday morning her antihypertensive medications were held, however was noted to have been hypertensive earlier this morning and her lisinopril was restarted at 10 mg daily. Attempt was made for her to undergo a small bowel series this morning, however was not achieved. On abdominal x-ray it was noted that contrast did advanced to the colon. Her pain remains "about the same" as it has been. She has no acute complaints at this time. 12/20 - Patient seen and examined at bedside this morning. She was tolerating clear liquid diet well last night, and her NG tube was removed. States she is continued having flatus, however no bowel movement as of yet. She is been tolerating the clear liquid diet, as per surgery's recommendation she will be advanced to full liquid diet and await further bowel function. She has no acute complaints at this time. REVIEW OF SYSTEMS: Pertinent positives and negatives noted in HPI. Physical Exam: General: nontoxic, no distress, appears at stated age Derm: warm, dry, intact Head: atraumatic, normocephalic, symmetric Eyes: EOMI, anicteric sclera Mouth: no lip lesion, mucus membranes moist Cardiovascular: S1 S2 reg, no murmur, rubs, or gallops Lungs: CTA bilateral, no rales, no accessory muscle use Abdominal: Tenderness to light palpation throughout entire abdomen with mild distention Extremities: no gross muscle atrophy, no edema, no contractures Neuro: Alert, Oriented, CNII-XII grossly intact, gait normal Psych: well appearing, appropriate affect Data Received Today: Labs: WBCs 9.2, hemoglobin 10.3, hematocrit 33.5, platelet 284; sodium 132, potassium 4.1, BUN 11, creatinine 0.74, calcium 8.9 Imagining: No new imaging today Assessment and plan 54-year-old female PMH of CAD s/p CABG and multiple stents, bowel resection x 2 (most recently 07/14/2024), type 2 diabetes mellitus, hypertension, hyperlipidemia, COPD, bipolar disorder who presented to the emergency room with complaints of worsening abdominal pain with nausea and vomiting. Symptoms began 2 days ago and have progressively worsened. #Small bowel obstruction, partial -NG tube discontinued as she was tolerating clear liquid diet well -Diet will be advanced to full liquid diet, await further bowel movement -Pain control and antiemetics -General Surgery consulted -Senokotdocusate sodium 1 each twice daily added to current regimen -Will continue to hold Plavix secondary to possibility of surgical intervention - discussed with surgery, will hold for 1 additional day -Small bowel unable to be completed earlier, abdominal x-ray did show contrast advanced into the distal small bowel loops and proximal colonic loops -Repeat CBC and BMP in the a.m. -D5W half-normal discontinued as hypernatremia resolved -Continue with Unasyn 3 g every 8 hours #Hypernatremia, likely due to inadequate oral intake secondary to partial bowel obstruction - resolved -Sodium this morning showed to be 132 -D5W half-normal discontinued as hypernatremia resolved -Will continue to monitor BMP #Lactic acidosis, resolved -Monitor lactic acid levels until resolution -Trend: 3.1 -> 6.3 -> 4.0 -> 4.6 -> 3.6 -> 2.0 #Hyperkalemia, resolved #Hyponatremia, resolved #Hypochloremia, resolved -Continue monitor BMP Chronic conditions: #CAD #Type 2 diabetes mellitus #Hypertension #Hyperlipidemia #COPD #Bipolar disorder -Resumed home meds other than those listed below -Holding Plavix, Farxiga, Benadryl -Initiated on sliding scale every 6 hours -Holding hypertension medications including amlodipine and Imdur due to episodic hypotension on 12/18/2024 -Episodic hypertension overnight, restarted lisinopril 10 mg daily DVT ppx: Lovenox 40 mg subcu daily GI PPx: Protonix 40 mg twice daily Code status: Full code Anticipated discharge place: Pending clinical course Anticipated discharge time: Pending clinical course Dictation was produced using [employer] software. please excuse any grammatical, word or spelling errors. I have seen and evaluated the patient today. Discussed with the resident and agree with the residents finding and plan as documented in the resident's note. Changes highlighted in blue font. Objective - Vital Signs Vital signs: Vital Signs Temp 98.1 F 12/20/24 07:02 Pulse 65 12/20/24 07:02 Resp 16 12/20/24 07:02 BP 127/77 12/20/24 07:02 Pulse Ox 97 12/20/24 07:02 FiO2 Intake & Output 12/19/24 12/20/24 12/20/24 18:59 06:59 18:59 Intake Total 480 240 Output Total 500 Balance -20 240 Intake: Oral 480 240 Output: Gastric Drainage 500 Other: Voiding Method Toilet Toilet # Voids 3 3 - Labs CBC & Chem 7: 12/20/24 05:19 12/20/24 05:19 Labs: Abnormal Lab Results - Last 24 Hours (Table) 12/19/24 12/19/24 12/19/24 Range/Units 04:33 04:33 11:56 Hgb 10.2 L (12.0-15.0) g/dL Hct 34.2 L (37.2-46.3) % MCH 24.1 L (27.0-32.0) pg MCHC 29.8 L (32.0-37.0) g/dL RDW 21.6 H (11.5-14.5) % Immature Gran # 0.07 H (0.00-0.04) X 10*3/uL Sodium 146 H (135-145) mmol/L Glucose 114 H (70-110) mg/dL POC Glucose (mg/dL) 135 H (70-110) mg/dL 12/19/24 12/20/24 12/20/24 Range/Units 17:07 00:12 05:19 Hgb 10.3 L (12.0-15.0) g/dL Hct 33.5 L (37.2-46.3) % MCH 24.6 L (27.0-32.0) pg MCHC 30.8 L (32.0-37.0) g/dL RDW 19.8 H (11.5-14.5) % Immature Gran # (0.00-0.04) X 10*3/uL Sodium (135-145) mmol/L Glucose (70-110) mg/dL POC Glucose (mg/dL) 144 H 159 H (70-110) mg/dL 12/20/24 12/20/24 Range/Units 05:19 07:31 Hgb (12.0-15.0) g/dL Hct (37.2-46.3) % MCH (27.0-32.0) pg MCHC (32.0-37.0) g/dL RDW (11.5-14.5) % Immature Gran # (0.00-0.04) X 10*3/uL Sodium 132 L (135-145) mmol/L Glucose 132 H (70-110) mg/dL POC Glucose (mg/dL) 120 H (70-110) mg/dL
[2024-12-20] MEDS: SENNOSIDES-DOCUSATE SODIUM 1 EACH TAB PO SCH (12:52)
[2024-12-20] MEDS: HYDROcodone/APAP 5-325MG 1 EACH TAB PO PRN (12:52)
[2024-12-20 13:18] VITALS: BMI 33.3
[2024-12-20 17:13] LABS: Glucose,Whole Blood 114 mg/dL (70-110)
[2024-12-20 20:07] LABS: Glucose,Whole Blood 84 mg/dL (70-110)
[2024-12-20] MEDS ORDERED: ONDANSETRON ODT 4 MG TAB PO PRN (20:35)
[2024-12-20] MEDS: AMOXIC-POT CLAV 875-125MG 1 EACH TAB PO SCH (20:46)
[2024-12-21 08:04] LABS: Glucose,Whole Blood 90 mg/dL (70-110)
[2024-12-21 08:31] VITALS: RESP 18
[2024-12-21 09:15] LABS: Anisocytosis Moderate; Basophils % (A) 0 %; Eosinophils # (A) 0.2 k/uL (0-0.7); Eosinophils % (A) 2 %; HCT 42.2 % (34.0-46.0); HGB 12.7 gm/dL (11.4-16.0); Hypochromasia Marked; Lymphocytes # (A) 3.4 k/uL (1.0-4.8); Lymphocytes % (A) 37 %; MCH 24.6 pg (25.0-35.0); MCHC 30.2 g/dL (31.0-37.0); MCV 81.5 fL (80.0-100.0); Mean Platelet Volume 8.2; Microcytosis Slight; Monocytes # (A) 0.6 k/uL (0-1.0); Monocytes % (A) 6 %; Neutrophils # (A) 4.8 k/uL (1.3-7.7); Neutrophils % (A) 53 %; Platelet Count 317 k/uL (150-450); RBC 5.18 m/uL (3.80-5.40); WBC 9.1 k/uL (3.8-10.6)
[2024-12-21 09:34] LABS: African American GFR (CKD) 83 (>60 ml/min/1.73 sqM); Anion Gap 11 mmol/L; Blood Urea Nitrogen 10 mg/dL (7-17); Calcium 9.1 mg/dL (8.4-10.2); Carbon Dioxide 19 mmol/L (22-30); Chloride 105 mmol/L (98-107); Glucose 161 mg/dL (74-99); Non-African American GFR(CKD) 72 (>60 ml/min/1.73 sqM); Potassium 4.5 mmol/L (3.5-5.1); Sodium 135 mmol/L (137-145)
[2024-12-21 12:52] LABS: Glucose,Whole Blood 57 mg/dL (70-110)
--- NOTE | 2024-12-21 13:20 | P.PN ---
Progress Note - Text Progress Note Date: 12/21/24 No acute events overnight. Patient is tolerating diet. She is having bowel function. Denies nausea and vomiting VSS General-NAD CVS-RRR Lungs-NLB Abdomen-soft, NTND 54 year old female with resolving SBO -Ok for discharge from surgery standpoint -Regular Diet Freeman Portillo DO [facility] [phone]
[2024-12-21 13:23] LABS: Glucose,Whole Blood 79 mg/dL (70-110)
[2024-12-21 13:33] VITALS: BP 126/71; PULSE 50; TEMP 98.2
--- NOTE | 2024-12-21 15:59 | P.DS ---
Providers Date of admission: 12/15/24 22:30 Attending physician: Brooklyn Frederick MD Consults: 12/15/24 22:27 Consult Physician Urgent Consulting Provider: Adrian Dubois Consult Reason/Comments: Partial small bowel obstuction Do you want consulting provider notified?: Yes 12/16/24 06:48 Consult Physician Stat Consulting Provider: Adrian Dubois Consult Reason/Comments: SBO Do you want consulting provider notified?: Yes Primary care physician: Stated None Hospital Course: I have seen and evaluated the patient today. Discussed with the resident and agree with the residents finding and plan as documented in the resident's note. Changes highlighted in blue font. Discharge diagnoses; #Small bowel obstruction, partial #Hypernatremia, likely due to inadequate oral intake secondary to partial bowel obstruction - resolved #Lactic acidosis, resolved #Hyperkalemia, resolved #Hyponatremia, resolved #Hypochloremia, resolved Hospital course; 54-year-old female with a PMH of CAD status post CABG and multiple stents, bowel resection x 2 (most recently 07/14/2024), type II DM, hypertension, hyperlipidemia, COPD, bipolar disorder, who presents to the emergency room with complaints of abdominal pain with nausea and vomiting. The patient reports that her symptoms started 2 days ago and quickly worsened for which she was initially seen at an outside facility yesterday where she was given several oral medications and sent home for suspected bowel obstruction. The patient reports that her symptoms however have persisted which prompted her to come to the emergency room. Upon arrival she was made n.p.o. and underwent a CT abdomen/pelvis which showed signs of early complete vs partial small bowel obstruction. At that time surgery was consulted, and they came and evaluated the patient. She continued to have diffuse abdominal pain that would wax and wane with a lack of flatus or bowel movements. On her fifth day of this admission she attempted to have a small bowel follow-through completed, which was unable to be completed however at that time an abdominal x-ray was taken which showed that contrast had progressed into the distal small bowel loops and proximal colonic loops. Following that she was advanced to a clear liquid diet which she tolerated, and began endorsing the passage of flatus. Her diet was then advanced to full liquid diet with continued flatus. She had her first bowel movement on the afternoon of her sixth day on this admission. Her diet was advanced to full this afternoon (day 7 of this admission) and she tolerated well without issue. Discussed with the patient, the importance of continued regular follow-up with PCP. She is excited for discharge today. Patient received 4 days of Unasyn, leukocytosis has resolved, she is afebrile, VSS, symptoms of SBO resolved, no antibiotics provided at discharge. Physical Exam: General: nontoxic, no distress, appears at stated age Derm: warm, dry, intact Head: atraumatic, normocephalic, symmetric Eyes: EOMI, anicteric sclera Mouth: no lip lesion, mucus membranes moist Cardiovascular: S1 S2 reg, no murmur, rubs, or gallops Lungs: CTA bilateral, no rales, no accessory muscle use Abdominal: Slight tenderness to light palpation throughout entire abdomen with mild distention, bowel sounds active Extremities: no gross muscle atrophy, no edema, no contractures Neuro: Alert, Oriented, CNII-XII grossly intact, gait normal Psych: well appearing, appropriate affect Dictation was produced using [employer] dictation software. please excuse any grammatical, word or spelling errors. Delmar Beard MD PGY-1 IM Patient Condition at Discharge: Good Plan - Discharge Summary Discharge Rx Participant: No New Discharge Prescriptions: Continue Atorvastatin [Lipitor] 80 mg PO HS Ranolazine [Ranexa] 1,000 mg PO BID Nitroglycerin Sl Tabs [Nitrostat] 0.4 mg SL Q5M PRN PRN Reason: Chest Pain Aspirin EC [Ecotrin Low Dose] 81 mg PO W/BRKFST Albuterol Inhaler [Ventolin Hfa Inhaler] 2 puff INHALATION RT-Q6H PRN PRN Reason: Shortness Of Breath Insulin Lispro [humaLOG Kwikpen] See Protocol SQ AC-TID Ipratropium-Albuterol Nebulize [Duoneb 0.5 mg-3 mg/3 ml Soln] 3 ml INHALATION RT-TID Ondansetron Odt [Zofran ODT] 4 mg PO TID PRN PRN Reason: Nausea lisinopriL [Zestril] 10 mg PO DAILY Dapagliflozin Propanediol [Farxiga] 10 mg PO DAILY 14 Days #14 tab Semaglutide [Ozempic] 0.5 mg SQ TH diphenhydrAMINE [Benadryl] 25 mg PO BID ARIPiprazole [Abilify] 5 mg PO DAILY rOPINIRole HCL [Requip] 1 mg PO HS amLODIPine [Norvasc] 10 mg PO DAILY Omeprazole 40 mg PO AC-BID Pregabalin [Lyrica] 150 mg PO TID Clopidogrel [Plavix] 75 mg PO DAILY ALPRAZolam [Xanax] 0.5 mg PO BID PRN PRN Reason: Anxiety Albuterol Nebulized [Ventolin Nebulized] 2.5 mg INHALATION RT-Q6H PRN PRN Reason: Shortness Of Breath Escitalopram [Lexapro] 10 mg PO DAILY Metoprolol Tartrate [Lopressor] 50 mg PO BID Isosorbide Mononitrate [Imdur] 120 mg PO BID Fluticasone/Umeclidin/Vilanter [Trelegy Ellipta 200-62.5-25] 1 puff INHALATION RT-DAILY Discharge Medication List Atorvastatin [Lipitor] 80 mg PO HS 07/08/20 [History] Ranolazine [Ranexa] 1,000 mg PO BID 11/13/21 [History] Albuterol Inhaler [Ventolin Hfa Inhaler] 2 puff INHALATION RT-Q6H PRN 03/27/23 [History] Aspirin EC [Ecotrin Low Dose] 81 mg PO W/BRKFST 03/27/23 [History] Clopidogrel [Plavix] 75 mg PO DAILY 03/27/23 [History] Nitroglycerin Sl Tabs [Nitrostat] 0.4 mg SL Q5M PRN 03/27/23 [History] Omeprazole 40 mg PO AC-BID 03/27/23 [History] Pregabalin [Lyrica] 150 mg PO TID 03/27/23 [History] amLODIPine [Norvasc] 10 mg PO DAILY 03/27/23 [History] rOPINIRole HCL [Requip] 1 mg PO HS 03/27/23 [History] ALPRAZolam [Xanax] 0.5 mg PO BID PRN 06/22/23 [History] Insulin Lispro [humaLOG Kwikpen] See Protocol SQ AC-TID 03/16/24 [History] Ipratropium-Albuterol Nebulize [Duoneb 0.5 mg-3 mg/3 ml Soln] 3 ml INHALATION RT-TID 03/16/24 [History] Albuterol Nebulized [Ventolin Nebulized] 2.5 mg INHALATION RT-Q6H PRN 05/31/24 [History] Ondansetron Odt [Zofran ODT] 4 mg PO TID PRN 05/31/24 [History] lisinopriL [Zestril] 10 mg PO DAILY 05/31/24 [History] Dapagliflozin Propanediol [Farxiga] 10 mg PO DAILY 14 Days #14 tab 08/05/24 [Rx] Escitalopram [Lexapro] 10 mg PO DAILY 08/19/24 [History] ARIPiprazole [Abilify] 5 mg PO DAILY 12/16/24 [History] Fluticasone/Umeclidin/Vilanter [Trelegy Ellipta 200-62.5-25] 1 puff INHALATION RT-DAILY 12/16/24 [History] Isosorbide Mononitrate [Imdur] 120 mg PO BID 12/16/24 [History] Metoprolol Tartrate [Lopressor] 50 mg PO BID 12/16/24 [History] Semaglutide [Ozempic] 0.5 mg SQ TH 12/16/24 [History] diphenhydrAMINE [Benadryl] 25 mg PO BID 12/16/24 [History] Follow up Appointment(s)/Referral(s): Ana Bonilla MD [REFERRING] - 1-2 Days (please call to make your appointment when office opens on 12/23/24) Marga Samuel DO [Doctor of Osteopathic Medicine] - 1 Week (please call to make your appointment when office opens on 12/23/24) Patient Instructions/Handouts: Bowel Obstruction (GEN), What to Do if Your Blood Sugar is Low (DC) Discharge Disposition: HOME SELF-CARE
[2024-12-23 07:42] LABS: Glucose,Whole Blood 90 mg/dL (70-110)
== END 2024-12-21 15:04 | disposition home or self-care (01) | DRG 247 ==
LOC: EC 17:35 → 5NMEDONC 22:30
PROVIDERS: ADMIT Internal Medicine; ATTEND Internal Medicine
PROC: 0D9670Z Drainage of Stomach with Drainage Device, Via Natural or Artificial Opening (ICD-10-PCS; principal; 2024-12-16)
DX: K56.600 Partial intestinal obstruction, unspecified as to cause (principal); E87.0 Hyperosmolality and hypernatremia; E87.20 Acidosis, unspecified; E87.5 Hyperkalemia; E87.1 Hypo-osmolality and hyponatremia; E87.8 Other disorders of electrolyte and fluid balance, not elsewhere classified; F17.200 Nicotine dependence, unspecified, uncomplicated; T78.2XXA Anaphylactic shock, unspecified, initial encounter; R00.0 Tachycardia, unspecified; R61 Generalized hyperhidrosis; E11.9 Type 2 diabetes mellitus without complications; F31.9 Bipolar disorder, unspecified; I25.10 Atherosclerotic heart disease of native coronary artery without angina pectoris; J44.89 Other specified chronic obstructive pulmonary disease; E78.5 Hyperlipidemia, unspecified; I10 Essential (primary) hypertension; T50.8X5A Adverse effect of diagnostic agents, initial encounter; Z79.82 Long term (current) use of aspirin; Z79.84 Long term (current) use of oral hypoglycemic drugs; I25.2 Old myocardial infarction; Z79.02 Long term (current) use of antithrombotics/antiplatelets; Z79.899 Other long term (current) drug therapy; Z90.49 Acquired absence of other specified parts of digestive tract; Z95.1 Presence of aortocoronary bypass graft
CPT/HCPCS: 36415; 71045; 74018; 74177; 80048; 80053; 81003; 83605; 83690; 84132; 85025; 85027; 85610; 85730; 87324; 87636; 93005; 94640; 96361; 96365; 96366; 96367; 96368; 96372; 96375; 96376; 99285

== ENCOUNTER 2024-12-22 23:44 | Inpatient (IN) | payer OTHER ==
--- NOTE | 2024-12-23 00:11 | ED ---
General Adult HPI - General Chief complaint: Abdominal Pain Stated complaint: abdominal pain Time Seen by Provider: 12/22/24 23:50 Source: patient, EMS, RN notes reviewed Mode of arrival: EMS Limitations: no limitations - History of Present Illness Initial comments: 54-year-old female presents to the emergency department for evaluation of abdominal pain. Patient states that she was discharged Monday. She was admitted for small bowel obstruction. She had an NG tube at that time. She states that she was having bowel movements. She had 3 small bowel movements this morning. She was passing gas up until this time but has not had any further bowel movements or flatulence. She states that the pain recurred and is similar to what it was when she was admitted. He admits to nausea. She has not had any vomiting. She has an extensive abdominal surgery history. She follows with Dr. Dubois - Related Data Home Medications Medication Instructions Recorded Confirmed Atorvastatin [Lipitor] 80 mg PO HS 07/08/20 12/23/24 Ranolazine [Ranexa] 1,000 mg PO BID 11/13/21 12/23/24 Albuterol Inhaler [Ventolin Hfa 2 puff INHALATION RT-Q6H PRN 03/27/23 12/23/24 Inhaler] Aspirin EC [Ecotrin Low Dose] 81 mg PO W/BRKFST 03/27/23 12/23/24 Clopidogrel [Plavix] 75 mg PO DAILY 03/27/23 12/23/24 Nitroglycerin Sl Tabs [Nitrostat] 0.4 mg SL Q5M PRN 03/27/23 12/23/24 Omeprazole 40 mg PO AC-BID 03/27/23 12/23/24 Pregabalin [Lyrica] 150 mg PO TID 03/27/23 12/23/24 amLODIPine [Norvasc] 10 mg PO DAILY 03/27/23 12/23/24 rOPINIRole HCL [Requip] 1 mg PO HS 03/27/23 12/23/24 ALPRAZolam [Xanax] 0.5 mg PO BID PRN 06/22/23 12/23/24 Insulin Lispro [humaLOG Kwikpen] See Protocol SQ AC-TID 03/16/24 12/23/24 Ipratropium-Albuterol Nebulize 3 ml INHALATION RT-TID 03/16/24 12/23/24 [Duoneb 0.5 mg-3 mg/3 ml Soln] Albuterol Nebulized [Ventolin 2.5 mg INHALATION RT-Q6H PRN 05/31/24 12/23/24 Nebulized] Ondansetron Odt [Zofran ODT] 4 mg PO TID PRN 05/31/24 12/23/24 lisinopriL [Zestril] 10 mg PO DAILY 05/31/24 12/23/24 Escitalopram [Lexapro] 10 mg PO DAILY 08/19/24 12/23/24 ARIPiprazole [Abilify] 5 mg PO DAILY 12/16/24 12/23/24 Fluticasone/Umeclidin/Vilanter 1 puff INHALATION RT-DAILY 12/16/24 12/23/24 [Trelegy Ellipta 200-62.5-25] Isosorbide Mononitrate [Imdur] 120 mg PO BID 12/16/24 12/23/24 rOPINIRole HCL [Requip] 2 mg PO HS 12/23/24 12/23/24 Previous Rx's Medication Instructions Recorded Dapagliflozin Propanediol [Farxiga] 10 mg PO DAILY 14 Days #14 tab 08/05/24 Metoprolol Tartrate [Lopressor] 25 mg PO BID 30 Days #60 tab 12/25/24 polyethylene glycoL 3350 [Miralax] 17 gm PO HS 30 Days #30 packet 12/25/24 Allergies Allergy/AdvReac Type Severity Reaction Status Date / Time Iodinated Contrast Media Allergy Anaphylaxis Verified 12/23/24 09:00 Review of Systems ROS Statement: Those systems with pertinent positive or pertinent negative responses have been documented in the HPI. ROS Other: All systems not noted in ROS Statement are negative. Past Medical History Past Medical History: Asthma, Coronary Artery Disease (CAD), COPD, Diabetes Mellitus, GERD/Reflux, Hypertension, Myocardial Infarction (ND), Osteoarthritis (OA) Additional Past Medical History / Comment(s): DDD, scoliosis, ND x4 Last Myocardial Infarction Date:: 2011 History of Any Multi-Drug Resistant Organisms: None Reported Past Surgical History: Appendectomy, Bowel Resection, Coronary Bypass/CABG, Heart Catheterization With Stent Additional Past Surgical History / Comment(s): seven stents, here for gastroenteritis with abcess (removal 06/21/24), per pt 2 ABD procedures at the same area, Bowel resection with appendectomy 07/05/2024 Past Anesthesia/Blood Transfusion Reactions: No Reported Reaction Date of Last Stent Placement:: 11/2018 Past Psychological History: Anxiety, Bipolar Smoking Status: Current every day smoker Past Alcohol Use History: None Reported Past Drug Use History: Marijuana - Past Family History Mother Family Medical History: Cancer Additional Family Medical History / Comment(s): Ovarian cancer Father Family Medical History: Congestive Heart Failure (CHF) Fmily Family Medical History: No Reported History General Exam Limitations: no limitations General appearance: alert, in no apparent distress Head exam: Present: atraumatic, normocephalic, normal inspection Eye exam: Present: normal appearance, PERRL, EOMI. Absent: scleral icterus, conjunctival injection, periorbital swelling ENT exam: Present: normal exam, mucous membranes moist Neck exam: Present: normal inspection. Absent: tenderness, meningismus, lymphadenopathy Respiratory exam: Present: normal lung sounds bilaterally. Absent: respiratory distress, wheezes, rales, rhonchi, stridor Cardiovascular Exam: Present: regular rate, normal rhythm, normal heart sounds. Absent: systolic murmur, diastolic murmur, rubs, gallop, clicks GI/Abdominal exam: Present: distended, tenderness, hyperactive bowel sounds Extremities exam: Present: normal inspection, full ROM, normal capillary refill. Absent: tenderness, pedal edema, joint swelling, calf tenderness Back exam: Present: normal inspection Neurological exam: Present: alert, oriented X3 Psychiatric exam: Present: normal affect, normal mood Skin exam: Present: warm, dry, intact, normal color. Absent: rash Course Vital Signs 12/22/24 12/23/24 12/23/24 23:46 01:31 05:23 Temperature 99.1 F Pulse Rate 89 100 92 Respiratory 20 18 16 Rate Blood Pressure 129/99 144/100 97/54 O2 Sat by Pulse 96 95 94 L Oximetry 12/23/24 05:53 Temperature Pulse Rate 97 Respiratory 18 Rate Blood Pressure 118/66 O2 Sat by Pulse 94 L Oximetry Medical Decision Making - Medical Decision Making Was pt. sent in by a medical professional or institution (, PA, STAGE DIRECTOR, urgent care, hospital, or detention...) When possible be specific @ -No Did you speak to anyone other than the patient for history (EMS, parent, family, police, friend...)? What history was obtained from this source @ -No Did you review nursing and triage notes (agree or disagree)? Why? @ -I reviewed and agree with nursing and triage notes Were old charts reviewed (outside hosp., previous admission, EMS record, old EKG, old radiological studies, urgent care reports/EKG's, detention records)? Report findings @ -No old charts were reviewed Differential Diagnosis (chest pain, altered mental status, abdominal pain women, abdominal pain men, vaginal bleeding, weakness, fever, dyspnea, syncope, headache, dizziness, GI bleed, back pain, seizure, CVA, palpatations, mental health, musculoskeletal)? @ -Differential Abdominal Pain Women: Appendicitis, Cholecystitis, diverticulosis, ischemic bowel, pancreatitis, hepatitis, UTI, gastroenteritis, AAA, incarcerated hernia, bowel obstruction, constipation, inflammatory bowel, hepatitis, peptic ulcer disease, splenic infa rction, perforated viscus, vulvitis, ovarian torsion, PID, kidney stone, placenta abruption, this is not meant to be an all-inclusive list EKG interpreted by me (3pts min.). @ -none X-rays interpreted by me (1pt min.). @ -None done CT interpreted by me (1pt min.). @ -CT abdomen pelvis shows fluid-filled small bowel loops suggestive of enteritis, there is no significant obstruction however low-grade partial obstruction cannot be excluded U/S interpreted by me (1pt. min.). @ -None done What testing was considered but not performed or refused? (CT, X-rays, U/S, labs)? Why? @ -None What meds were considered but not given or refused? Why? @ -None Did you discuss the management of the patient with other professionals (professionals i.e. , PA, STAGE DIRECTOR, lab, RT, psych nurse, social sciences department chair, librarian special library, teacher, commissioned fire officer, rifle case repairer)? Give summary @ -Discussed with Dr. Portillo who recommended admission to medicine with surgery consultation Discussed with sound who is accepting of the admission Was smoking cessation discussed for >3mins.? @ -No Was critical care preformed (if so, how long)? @ -No Were there social determinants of health that impacted care today? How? (Homelessness, low income, unemployed, alcoholism, drug addiction, transportation, low edu. Level, literacy, decrease access to med. care, nursing home, rehab)? @ -No Was there de-escalation of care discussed even if they declined (Discuss DNR or withdrawal of care, Hospice)? DNR status @ -No What co-morbidities impacted this encounter? (DM, HTN, Smoking, COPD, CAD, Cancer, CVA, ARF, Chemo, Hep., AIDS, mental health diagnosis, sleep apnea, morbid obesity)? @ -Multiple abdominal surgeries Was patient admitted / discharged? Hospital course, mention meds given and route, prescriptions, significant lab abnormalities, going to OR and other pertinent info. @ -Admitted. Patient presented the emergency department for evaluation of abdominal pain. Laboratory studies obtainedRevealing WBC of 12.5, hemoglobin 11.1 which is stable for the patient; CMP is sodium and potassium within normal limits no significant lactic acidosis. UA shows no evidence of infectious process. CT of the abdomen pelvis shows fluid-filled small bowel loops in the right lower quadrant suggestive of enteritis, no significant obstruction but low-grade partial obstruction cannot be excluded. Patient was provided medication for pain control in the emergency department. I discussed this with Dr. Portillo who recommends medical admission with surgery consultation. I discussed this with bella who is accepting of the admission. Patient un derstanding agreeable with plan. Patient stable at time of admission. Case discussed with Dr. Palma. Undiagnosed new problem with uncertain prognosis? @ -No Drug Therapy requiring intensive monitoring for toxicity (Heparin, Nitro, Insulin, Cardizem)? @ -No Were any procedures done? @ -No Diagnosis/symptom? @ -Enteritis, partial obstruction Acute, or Chronic, or Acute on Chronic? @ -Acute Uncomplicated (without systemic symptoms) or Complicated (systemic symptoms)? @ -Uncomplicated Side effects of treatment? @ -No Exacerbation, Progression, or Severe Exacerbation? @ -No Poses a threat to life or bodily function? How? (Chest pain, USA, ND, pneumonia, PE, COPD, DKA, ARF, appy, cholecystitis, CVA, Diverticulitis, Homicidal, Suicidal, threat to staff... and all critical care pts) @ -No - Lab Data Result diagrams: 12/25/24 08:03 12/25/24 08:03 Lab Results 12/23/24 12/23/24 12/23/24 Range/Units 01:11 01:11 01:11 WBC 12.5 H (3.8-10.6) k/uL RBC 4.61 (3.80-5.40) m/uL Hgb 11.1 L (11.4-16.0) gm/dL Hct 37.2 (34.0-46.0) % MCV 80.7 (80.0-100.0) fL MCH 24.1 L (25.0-35.0) pg MCHC 29.9 L (31.0-37.0) g/dL RDW 20.7 H (11.5-15.5) % Plt Count 330 (150-450) k/uL MPV 8.9 Neutrophils % 61 % Lymphocytes % 30 % Monocytes % 5 % Eosinophils % 2 % Basophils % 1 % Neutrophils # 7.6 (1.3-7.7) k/uL Lymphocytes # 3.8 (1.0-4.8) k/uL Monocytes # 0.6 (0-1.0) k/uL Eosinophils # 0.2 (0-0.7) k/uL Basophils # 0.1 (0-0.2) k/uL Hypochromasia Moderate Anisocytosis Moderate Microcytosis Slight Sodium 137 (137-145) mmol/L Potassium 3.8 (3.5-5.1) mmol/L Chloride 109 H (98-107) mmol/L Carbon Dioxide 19 L (22-30) mmol/L Anion Gap 9 mmol/L BUN 10 (7-17) mg/dL Creatinine 0.87 (0.52-1.04) mg/dL Est GFR (CKD-EPI)AfAm 86 (>60 ml/min/1.73 sqM) Est GFR (CKD-EPI)NonAf 75 (>60 ml/min/1.73 sqM) Glucose 139 H (74-99) mg/dL Estimated Ave Glu mg/dL mg/dL Hemoglobin A1c (<=6.0) % Plasma Lactic Acid Sarthak 1.7 (0.7-2.0) mmol/L Calcium 9.1 (8.4-10.2) mg/dL Total Bilirubin 0.4 (0.2-1.3) mg/dL AST 17 (14-36) U/L ALT 15 (4-34) U/L Alkaline Phosphatase 80 (38-126) U/L Total Protein 5.7 L (6.3-8.2) g/dL Albumin 3.4 L (3.5-5.0) g/dL Amylase 53 (30-110) U/L Lipase 213 (23-300) U/L TSH (0.465-4.680) mIU/L Free T4 (0.78-2.19) ng/dL Urine Color Urine Appearance (Clear) Urine pH (5.0-8.0) Ur Specific [place] (1.001-1.035) Urine Protein (Negative) Urine Glucose (UA) (Negative) Urine Ketones (Negative) Urine Blood (Negative) Urine Nitrite (Negative) Urine Bilirubin (Negative) Urine Urobilinogen (<2.0) mg/dL Ur Leukocyte Esterase (Negative) 12/23/24 12/23/24 12/23/24 Range/Units 01:11 01:11 04:04 WBC (3.8-10.6) k/uL RBC (3.80-5.40) m/uL Hgb (11.4-16.0) gm/dL Hct (34.0-46.0) % MCV (80.0-100.0) fL MCH (25.0-35.0) pg MCHC (31.0-37.0) g/dL RDW (11.5-15.5) % Plt Count (150-450) k/uL MPV Neutrophils % % Lymphocytes % % Monocytes % % Eosinophils % % Basophils % % Neutrophils # (1.3-7.7) k/uL Lymphocytes # (1.0-4.8) k/uL Monocytes # (0-1.0) k/uL Eosinophils # (0-0.7) k/uL Basophils # (0-0.2) k/uL Hypochromasia Anisocytosis Microcytosis Sodium (137-145) mmol/L Potassium (3.5-5.1) mmol/L Chloride (98-107) mmol/L Carbon Dioxide (22-30) mmol/L Anion Gap mmol/L BUN (7-17) mg/dL Creatinine (0.52-1.04) mg/dL Est GFR (CKD-EPI)AfAm (>60 ml/min/1.73 sqM) Est GFR (CKD-EPI)NonAf (>60 ml/min/1.73 sqM) Glucose (74-99) mg/dL Estimated Ave Glu mg/dL 148 mg/dL Hemoglobin A1c 6.8 H (<=6.0) % Plasma Lactic Acid Sarthak (0.7-2.0) mmol/L Calcium (8.4-10.2) mg/dL Total Bilirubin (0.2-1.3) mg/dL AST (14-36) U/L ALT (4-34) U/L Alkaline Phosphatase (38-126) U/L Total Protein (6.3-8.2) g/dL Albumin (3.5-5.0) g/dL Amylase (30-110) U/L Lipase (23-300) U/L TSH 8.220 H (0.465-4.680) mIU/L Free T4 0.90 (0.78-2.19) ng/dL Urine Color Colorless Urine Appearance Clear (Clear) Urine pH 6.0 (5.0-8.0) Ur Specific [place] 1.031 (1.001-1.035) Urine Protein Negative (Negative) Urine Glucose (UA) Negative (Negative) Urine Ketones Negative (Negative) Urine Blood Negative (Negative) Urine Nitrite Negative (Negative) Urine Bilirubin Negative (Negative) Urine Urobilinogen <2.0 (<2.0) mg/dL Ur Leukocyte Esterase Negative (Negative) Disposition Clinical Impression: Partial small bowel obstruction Disposition: ADMITTED IP TO THIS [facility] Condition: Stable Is patient prescribed a controlled substance at d/c from ED?: No
[2024-12-23] MEDS: MORPHINE SULFATE 4 MG/ML SYRINGE IVP STA (00:19)
[2024-12-23] MEDS: LACTATED RINGERS 1,000 ML IV ONE (00:42)
[2024-12-23] MEDS: HYDROmorphone 0.5 MG/0.5 ML SYRINGE IVP STA ×2 (01:28→03:48)
[2024-12-23] MEDS: diphenhydrAMINE 50 MG/ML 1 ML VIAL IVP STA (01:29)
[2024-12-23 01:34] LABS: Anisocytosis Moderate; Basophils # (A) 0.1 k/uL (0-0.2); Basophils % (A) 1 %; Eosinophils # (A) 0.2 k/uL (0-0.7); Eosinophils % (A) 2 %; HCT 37.2 % (34.0-46.0); HGB 11.1 gm/dL (11.4-16.0); Hypochromasia Moderate; Lymphocytes # (A) 3.8 k/uL (1.0-4.8); Lymphocytes % (A) 30 %; MCH 24.1 pg (25.0-35.0); MCHC 29.9 g/dL (31.0-37.0); MCV 80.7 fL (80.0-100.0); Mean Platelet Volume 8.9; Microcytosis Slight; Monocytes # (A) 0.6 k/uL (0-1.0); Monocytes % (A) 5 %; Neutrophils # (A) 7.6 k/uL (1.3-7.7); Neutrophils % (A) 61 %; Platelet Count 330 k/uL (150-450); RBC 4.61 m/uL (3.80-5.40); RDW 20.7 % (11.5-15.5); WBC 12.5 k/uL (3.8-10.6)
[2024-12-23 02:04] LABS: ALT 15 U/L (4-34); AST 17 U/L (14-36); African American GFR (CKD) 86 (>60 ml/min/1.73 sqM); Albumin 3.4 g/dL (3.5-5.0); Alkaline Phosphatase 80 U/L (38-126); Amylase 53 U/L (30-110); Anion Gap 9 mmol/L; Blood Urea Nitrogen 10 mg/dL (7-17); Calcium 9.1 mg/dL (8.4-10.2); Carbon Dioxide 19 mmol/L (22-30); Chloride 109 mmol/L (98-107); Glucose 139 mg/dL (74-99); Lipase 213 U/L (23-300); Non-African American GFR(CKD) 75 (>60 ml/min/1.73 sqM); Potassium 3.8 mmol/L (3.5-5.1); Sodium 137 mmol/L (137-145); Total Bilirubin 0.4 mg/dL (0.2-1.3); Total Protein 5.7 g/dL (6.3-8.2)
[2024-12-23] MEDS: FAMOTIDINE 20 MG/2 ML VIAL IV STA (02:20)
[2024-12-23] MEDS: methylPREDNISolone SOD SUCCI 125 MG/2 ML VIAL IV STA (02:20)
--- NOTE | 2024-12-23 03:22 | CT ---
EXAM: CT Abdomen and Pelvis With Intravenous Contrast CLINICAL HISTORY: ITS.REASON CT Reason: pain, recent SBO TECHNIQUE: Axial computed tomography images of the abdomen and pelvis with intravenous contrast. CTDI is 26 mGy and DLP is 1274.9 mGy-cm. This CT exam was performed using one or more of the following dose reduction techniques: automated exposure control, adjustment of the mA and/or kV according to patient size, and/or use of iterative reconstruction technique. COMPARISON: No relevant prior studies available. FINDINGS: Lung bases: Unremarkable. No mass. No consolidation. ABDOMEN: Liver: Unremarkable. No mass. Gallbladder and bile ducts: Unremarkable. No calcified stones. No ductal dilation. Pancreas: Unremarkable. No mass. No ductal dilation. Spleen: Unremarkable. No splenomegaly. Adrenals: Unremarkable. No mass. Kidneys and ureters: Unremarkable. No solid mass. No hydronephrosis. Stomach and bowel: Partial small bowel resection. Mild fluid-filled small bowel in the RIGHT lower quadrant, correlate for mild enteritis. No significant obstruction however, a low-grade partial obstruction extending into the anastomotic suture line cannot entirely be excluded. PELVIS: Appendix: No findings to suggest acute appendicitis. Bladder: Unremarkable. No mass. Reproductive: Unremarkable as visualized. ABDOMEN and PELVIS: Intraperitoneal space: Unremarkable. No free air. No significant fluid collection. Bones/joints: Degenerative changes of the spine. No acute fracture. No dislocation. Soft tissues: Unremarkable. Vasculature: Atherosclerotic changes of the aorta. No abdominal aortic aneurysm. Lymph nodes: Unremarkable. No enlarged lymph nodes. IMPRESSION: Partial small bowel resection. Mild fluid-filled small bowel in the RIGHT lower quadrant, correlate for mild enteritis. No significant obstruction however, a low-grade partial obstruction extending into the anastomotic suture line cannot entirely be excluded.
[2024-12-23] MEDS ORDERED: NALOXONE 0.4 MG/ML 1 ML VIAL IV PRN (03:56)
[2024-12-23] MEDS ORDERED: HYDROmorphone 0.5 MG/0.5 ML SYRINGE IVP PRN (03:58)
[2024-12-23] MEDS ORDERED: DEXTROSE 50% SYRINGE 50 ML IVP PRN ×2 (04:15)
--- NOTE | 2024-12-23 04:15 | P.HPIM ---
History of Present Illness H&P Date: 12/23/24 Chief Complaint: Abdominal pain 54-year-old female with history of bowel resection x 2 most recent was in June 2024 Patient recently admitted and evaluated for possible small bowel obstruction she spent about a week in the hospital was managed conservatively had extensive testing resulted and passing bowel movement tolerating p.o. intake and resolution of abdominal pain patient also received a course of Unasyn while inpatient for possible colitis patient was discharged over the weekend yesterday she said she continued to have bowel movements at home however on Monday started having abdominal pain again with feeling nauseous no vomiting this time no GI bleeding pain started getting worse it was central 8 out of 10 in severity colicky in nature for which she decided to come in the hospital for evaluation CT of the abdomen showed partial small bowel obstruction mild fluid-filled small bowel in the right lower quadrant suspicious for enteritis no significant o bstruction however low-grade partial obstruction extending into the anastomotic suture cannot be excluded This was discussed with general surgery on-call who recommended admission for further evaluation review of systems Pertinent positives as noted in HPI. All other systems were reviewed and are negative on exam Constitutional: No acute distress, conversant, pleasant Eyes: Anicteric sclerae, moist conjunctiva, Pupils equal round reactive to light ENMT: NC/AT Oropharynx clear, no erythema, or exudates Neck: Supple, no masses, or JVD No carotid bruits No thyromegaly Lungs: Clear to auscultation Clear to percussion Normal respiratory effort, no accessory muscle use Cardiovascular: Heart regular in rate and rhythm, No murmurs, gallops, or rubs No peripheral edema Abdominal: Soft Nontender, no guarding, rebound or rigidity Abdomen moving with respiration Normoactive bowel sounds No hepatomegaly, No splenomegaly No palpable mass No abdominal wall hernia noted Skin: Normal temperature, tone, texture, turgor No induration No subcutaneous nodules No rash, lesions No ulcers Extremities: No digital cyanosis No clubbing Pedal pulses intact and symmetrical Radial pulses intact and symmetrical No calf tenderness Psychiatric: Alert and oriented to person, place and time Appropriate affect fair judgement Neuro Muscles Strength 5/5 in all 4 extremities Sensation to light touch grossly present throughout Cranial nerves II-XII grossly intact review of systems Pertinent positives as noted in HPI. All other systems were reviewed and are negative on exam Constitutional: No acute distress, conversant, pleasant Eyes: Anicteric sclerae, moist conjunctiva, Pupils equal round reactive to light ENMT: NC/AT Oropharynx clear, no erythema, or exudates Neck: Supple, no masses, or JVD No carotid bruits No thyromegaly Lungs: Clear to auscultation Clear to percussion Normal respiratory effort, no accessory muscle use Cardiovascular: Heart regular in rate and rhythm, No murmurs, gallops, or rubs No peripheral edema Abdominal: Soft Tenderness to palpation over the epigastric and periumbilical region, no guarding, rebound or rigidity Abdomen moving with respiration Normoactive bowel sounds Extremities: No digital cyanosis No clubbing Pedal pulses intact and symmetrical Radial pulses intact and symmetrical No calf tenderness Psychiatric: Alert and oriented to person, place and time Appropriate affect fair judgement Neuro Muscles Strength 5/5 in all 4 extremities Sensation to light touch grossly present throughout Cranial nerves II-XII grossly intact Past Medical History Past Medical History: Asthma, Coronary Artery Disease (CAD), COPD, Diabetes Mellitus, GERD/Reflux, Hypertension, Myocardial Infarction (MT), Osteoarthritis (OA) Additional Past Medical History / Comment(s): DDD, scoliosis, MT x4 Last Myocardial Infarction Date:: 2011 History of Any Multi-Drug Resistant Organisms: None Reported Past Surgical History: Appendectomy, Bowel Resection, Coronary Bypass/CABG, Heart Catheterization With Stent Additional Past Surgical History / Comment(s): seven stents, here for gastroenteritis with abcess (removal 06/21/24), per pt 2 ABD procedures at the same area, Bowel resection with appendectomy 07/05/2024 Past Anesthesia/Blood Transfusion Reactions: No Reported Reaction Date of Last Stent Placement:: 11/2018 Past Psychological History: Anxiety, Bipolar Smoking Status: Current every day smoker Past Alcohol Use History: None Reported Past Drug Use History: Marijuana - Past Family History Mother Family Medical History: Cancer Additional Family Medical History / Comment(s): Ovarian cancer Father Family Medical History: Congestive Heart Failure (CHF) Fmily Family Medical History: No Reported History Medications and Allergies Home Medications Medication Instructions Recorded Confirmed Type Atorvastatin [Lipitor] 80 mg PO HS 07/08/20 12/16/24 History Ranolazine [Ranexa] 1,000 mg PO BID 11/13/21 12/16/24 History Albuterol Inhaler [Ventolin Hfa 2 puff INHALATION RT-Q6H PRN 03/27/23 12/16/24 History Inhaler] Aspirin EC [Ecotrin Low Dose] 81 mg PO W/BRKFST 03/27/23 12/16/24 History Clopidogrel [Plavix] 75 mg PO DAILY 03/27/23 12/16/24 History Nitroglycerin Sl Tabs [Nitrostat] 0.4 mg SL Q5M PRN 03/27/23 12/16/24 History Omeprazole 40 mg PO AC-BID 03/27/23 12/16/24 History Pregabalin [Lyrica] 150 mg PO TID 03/27/23 12/16/24 History amLODIPine [Norvasc] 10 mg PO DAILY 03/27/23 12/16/24 History rOPINIRole HCL [Requip] 1 mg PO HS 03/27/23 12/16/24 History ALPRAZolam [Xanax] 0.5 mg PO BID PRN 06/22/23 12/16/24 History Insulin Lispro [humaLOG Kwikpen] See Protocol SQ AC-TID 03/16/24 12/16/24 History Ipratropium-Albuterol Nebulize 3 ml INHALATION RT-TID 03/16/24 12/16/24 History [Duoneb 0.5 mg-3 mg/3 ml Soln] Albuterol Nebulized [Ventolin 2.5 mg INHALATION RT-Q6H PRN 05/31/24 12/16/24 History Nebulized] Ondansetron Odt [Zofran ODT] 4 mg PO TID PRN 05/31/24 12/16/24 History lisinopriL [Zestril] 10 mg PO DAILY 05/31/24 12/16/24 History Dapagliflozin Propanediol [Farxiga] 10 mg PO DAILY 14 Days #14 tab 08/05/24 12/16/24 Rx Escitalopram [Lexapro] 10 mg PO DAILY 08/19/24 12/16/24 History ARIPiprazole [Abilify] 5 mg PO DAILY 12/16/24 12/16/24 History Fluticasone/Umeclidin/Vilanter 1 puff INHALATION RT-DAILY 12/16/24 12/16/24 History [Trelegy Ellipta 200-62.5-25] Isosorbide Mononitrate [Imdur] 120 mg PO BID 12/16/24 12/16/24 History Metoprolol Tartrate [Lopressor] 50 mg PO BID 12/16/24 12/16/24 History Semaglutide [Ozempic] 0.5 mg SQ TH 12/16/24 12/16/24 History diphenhydrAMINE [Benadryl] 25 mg PO BID 12/16/24 12/16/24 History Allergies Allergy/AdvReac Type Severity Reaction Status Date / Time Iodinated Contrast Media Allergy Anaphylaxis Verified 12/22/24 23:53 Physical Exam Vitals: Vital Signs Temp Pulse Resp BP Pulse Ox 12/23/24 01:31 100 18 144/100 95 12/22/24 23:46 99.1 F 89 20 129/99 96 Intake and Output 12/22/24 12/22/24 12/23/24 14:59 22:59 06:59 Other: Weight 99.79 kg Results CBC & Chem 7: 12/23/24 01:11 12/23/24 01:11 Labs: Abnormal Lab Results - Last 24 Hours (Table) 12/23/24 12/23/24 Range/Units 01:11 01:11 WBC 12.5 H (3.8-10.6) k/uL Hgb 11.1 L (11.4-16.0) gm/dL MCH 24.1 L (25.0-35.0) pg MCHC 29.9 L (31.0-37.0) g/dL RDW 20.7 H (11.5-15.5) % Chloride 109 H (98-107) mmol/L Carbon Dioxide 19 L (22-30) mmol/L Glucose 139 H (74-99) mg/dL Total Protein 5.7 L (6.3-8.2) g/dL Albumin 3.4 L (3.5-5.0) g/dL Assessment and Plan Assessment: 54-year-old female with history of bowel resection x 2 most recently with June 2024 she was recently hospitalized and discharged for partial small bowel obstruction however after less than 48 hours after discharge she comes back to the hospital with recurrent abdominal pain I discussed case with ED doctor and accepted the admission for intractable abdominal pain for general sood rgery evaluation with anticipated length of stay less than 2 midnights Recurrent abdominal pain with possible low-grade partial small bowel obstruction Conservative management General Surgery evaluation CT of the abdomen showed possible low-grade partial obstruction of the small bowel N.p.o. IV fluid hydration normal saline 100 cc/h Pain control with opioids Dilaudid 1 mg IV push every 3 hours as needed Zofran 4 mg IV push every 8 hours as needed for nausea vomiting Blood work showing slightly elevated white count 12.5 Renal function unremarkable with sodium 137 potassium 3.8 BUN 10 creatinine 0.87 Lipase unremarkable 213 amylase unremarkable 53 Mild anemia Hemoglobin 11.1 stable at baseline Denies GI bleeding Chronic conditions Coronary artery disease, hypertension, diabetes mellitus, history of CAD status post stents Resume home medications Insulin sliding scale Full code DVT prophylaxis heparin subcu 3 times daily 5000 units
[2024-12-23 04:21] LABS: Appearance,Urine Clear (Clear); Bilirubin,Urine Negative (Negative); Blood,Urine Negative (Negative); Color,Urine Colorless; Glucose,Urine (UA) Negative (Negative); Ketones,Urine Negative (Negative); Leukocyte Esterase,Urine Negative (Negative); Nitrite,Urine Negative (Negative); Protein,Urine Negative (Negative); Specific Gravity,Urine 1.031 (1.001-1.035); Urobilinogen,Urine <2.0 mg/dL (<2.0)
[2024-12-23] MEDS: SODIUM CHLORIDE 0.9% 1,000 ML IV SCH (05:42)
[2024-12-23] MEDS: ONDANSETRON 4 MG/2 ML VIAL IVP PRN (05:42)
[2024-12-23 05:58] LABS: Glucose,Whole Blood 175 mg/dL (70-110)
[2024-12-23] MEDS: HEPARIN SODIUM,PORCINE 5,000 UNIT/ML 1 ML VIAL SQ SCH (08:00)
[2024-12-23] MEDS: HYDROmorphone 1 MG/ML 1 ML SYRINGE IVP PRN (08:01)
[2024-12-23] MEDS: ALPRAZolam 0.5 MG TAB PO PRN (08:25)
[2024-12-23] MEDS: INSULIN LISPRO (HumaLOG) 100 UNIT/ML 10 mL VL SQ SCH (10:03)
[2024-12-23] MEDS: IPRATROPIUM-ALBUTEROL 3 ML NEB INHALATION SCH (10:46)
[2024-12-23] MEDS: SYMBICORT 160-4.5 MCG INHALER INHALATION SCH (10:47)
[2024-12-23] MEDS: TIOTROPIUM 2.5 MCG INHALER INHALATION SCH (10:53)
--- NOTE | 2024-12-23 11:28 | P.GSCN ---
History of Present Illness Consult date: 12/23/24 History of present illness: CHIEF COMPLAINT: Abdominal pain HISTORY OF PRESENT ILLNESS: This is a 54-year-old female who returns to the hospital with complaints of abdominal pain. Patient was discharged from the hospital on Monday. She was admitted to the hospital at that time for small bowel obstruction. She was managed conservatively. Patient was having bowel movements on Monday and after discharge. Patient reports that the bowel movements stopped early this morning and flatus stopped yesterday. She reports cramping abdominal pain that feels like contractions across the mid abdomen. She had a CT scan abdomen pelvis completed that reported partial small bowel resection. Mild fluid-filled small bowel in the right lower quadrant correlate for mild enteritis. No significant obstruction however a low-grade partial obstruction extending to the anastomotic suture line cannot entirely be excluded. Patient denies any fever chills or sweats. Her surgical history includes open ileocecectomy for colitis with intramural abscess on 06/14/2024 and on 06/22/2024 was taken back to the OR for exploratory laparotomy with lysis of adhesions and small bowel resection x 2 and proximal right colon resection for small bowel obstruction secondary to adhesions and inflammation. Appendectomy on 07/05/2024. Patient with cardiac history of coronary artery disease cardiac stents and on Plavix. Also history of CABG. Last dose of Plavix was yesterday December 22, 2024. Patient reports not being on a bowel regimen at home. PAST MEDICAL HISTORY: See below PAST SURGICAL HISTORY: See below MEDICATIONS: See below ALLERGIES: See below SOCIAL HISTORY: No illicit drug use. REVIEW OF SYSTEMS: CONSTITUTIONAL: Denies fever or chills. HEENT: Denies blurred vision, vision changes, or eye pain. Denies hemoptysis CARDIOVASCULAR: Denies chest pain or pressure. RESPIRATORY: No shortness of breath. GASTROINTESTINAL: See HPI for pertinent findings HEMATOLOGIC: Denies bleeding disorders. GENITOURINARY: Denies any blood in urine or increased urinary frequency. SKIN: Denies pruitis. Denies rash. PHYSICAL EXAM: VITAL SIGNS: Reviewed GENERAL: Well-developed in no acute distress. HEENT: No sclera icterus. Extraocular movements grossly intact. Moist buccal mucosa. Head is atraumatic, normocephalic. No nasal drainage. ABDOMEN: Soft. Nondistended. Tenderness palpation across mid abdomen. Patient has bruising from heparin injections across abdomen. No rebound or guarding noted. NEUROLOGIC: Alert and oriented. Cranial nerves II through XII grossly intact. LABORATORY DATA: WBC is 12.5 Hgb 11.1 platelets 330 Sodium is 137 potassium 3.8 creatinine 0.87 Lactic acid 1.7 LFTs normal lipase 213 Urinalysis negative IMAGING: CT scan abdomen pelvis reports partial small bowel resection. Mild fluid-filled small bowel in the right lower quadrant correlate for mild enteritis. No significant obstruction however low-grade partial obstruction extending into the anastomotic suture line cannot entirely be excluded ASSESSMENT: 1. Abdominal pain 2. Low-grade partial small bowel obstruction extending into the anastomotic suture line not completely excluded on CT scan 3. Recent small bowel obstruction and hospitalization managed conservatively 4. History of abdominal surgeries PLAN: -Recommend conservative management -Discussed case with medicine service. They are discontinuing the Ozempic which affects bowel motility and can contribute to ileus and bowel obstruction. Agree with her plan to discontinue the Ozempic -Agree with clear liquid diet -Recommend bowel regimen. At this time start Dulcolax suppository and Senokot S -Continue to monitor -Recommend the patient continues a bowel regimen after discharge Physician Gospel Singer note has been reviewed by physician. Signing provider agrees with the documented findings, assessment, and plan of care. Past Medical History Past Medical History: Asthma, Coronary Artery Disease (CAD), COPD, Diabetes Mellitus, GERD/Reflux, Hypertension, Myocardial Infarction (NM), Osteoarthritis (OA) Additional Past Medical History / Comment(s): DDD, scoliosis, NM x4 Last Myocardial Infarction Date:: 2011 History of Any Multi-Drug Resistant Organisms: None Reported Past Surgical History: Appendectomy, Bowel Resection, Coronary Bypass/CABG, Heart Catheterization With Stent Additional Past Surgical History / Comment(s): seven stents, here for gastroenteritis with abcess (removal 06/21/24), per pt 2 ABD procedures at the [facility] area, Bowel resection with appendectomy 07/05/2024 Past Anesthesia/Blood Transfusion Reactions: No Reported Reaction Date of Last Stent Placement:: 11/2018 Past Psychological History: Anxiety, Bipolar Smoking Status: Current every day smoker Past Alcohol Use History: None Reported Past Drug Use History: Marijuana - Past Family History Mother Family Medical History: Cancer Additional Family Medical History / Comment(s): Ovarian cancer Father Family Medical History: Congestive Heart Failure (CHF) Fmily Family Medical History: No Reported History Medications and Allergies Home Medications Medication Instructions Recorded Confirmed Type Atorvastatin [Lipitor] 80 mg PO HS 07/08/20 12/23/24 History Ranolazine [Ranexa] 1,000 mg PO BID 11/13/21 12/23/24 History Albuterol Inhaler [Ventolin Hfa 2 puff INHALATION RT-Q6H PRN 03/27/23 12/23/24 History Inhaler] Aspirin EC [Ecotrin Low Dose] 81 mg PO W/BRKFST 03/27/23 12/23/24 History Clopidogrel [Plavix] 75 mg PO DAILY 03/27/23 12/23/24 History Nitroglycerin Sl Tabs [Nitrostat] 0.4 mg SL Q5M PRN 03/27/23 12/23/24 History Omeprazole 40 mg PO AC-BID 03/27/23 12/23/24 History Pregabalin [Lyrica] 150 mg PO TID 03/27/23 12/23/24 History amLODIPine [Norvasc] 10 mg PO DAILY 03/27/23 12/23/24 History rOPINIRole HCL [Requip] 1 mg PO HS 03/27/23 12/23/24 History ALPRAZolam [Xanax] 0.5 mg PO BID PRN 06/22/23 12/23/24 History Insulin Lispro [humaLOG Kwikpen] See Protocol SQ AC-TID 03/16/24 12/23/24 History Ipratropium-Albuterol Nebulize 3 ml INHALATION RT-TID 03/16/24 12/23/24 History [Duoneb 0.5 mg-3 mg/3 ml Soln] Albuterol Nebulized [Ventolin 2.5 mg INHALATION RT-Q6H PRN 05/31/24 12/23/24 History Nebulized] Ondansetron Odt [Zofran ODT] 4 mg PO TID PRN 05/31/24 12/23/24 History lisinopriL [Zestril] 10 mg PO DAILY 05/31/24 12/23/24 History Dapagliflozin Propanediol [Farxiga] 10 mg PO DAILY 14 Days #14 tab 08/05/24 12/23/24 Rx Escitalopram [Lexapro] 10 mg PO DAILY 08/19/24 12/23/24 History ARIPiprazole [Abilify] 5 mg PO DAILY 12/16/24 12/23/24 History Fluticasone/Umeclidin/Vilanter 1 puff INHALATION RT-DAILY 12/16/24 12/23/24 History [Trelegy Ellipta 200-62.5-25] Isosorbide Mononitrate [Imdur] 120 mg PO BID 12/16/24 12/23/24 History Metoprolol Tartrate [Lopressor] 50 mg PO BID 12/16/24 12/23/24 History diphenhydrAMINE [Benadryl] 25 mg PO BID 12/16/24 12/23/24 History rOPINIRole HCL [Requip] 2 mg PO HS 12/23/24 12/23/24 History Allergies Allergy/AdvReac Type Severity Reaction Status Date / Time Iodinated Contrast Media Allergy Anaphylaxis Verified 12/23/24 09:00 Surgical - Exam Vital Signs Temp Pulse Resp BP Pulse Ox 99.1 F 89 20 129/99 96 12/22/24 23:46 12/22/24 23:46 12/22/24 23:46 12/22/24 23:46 12/22/24 23:46 Results - Labs 12/23/24 01:11 12/23/24 01:11 Abnormal Lab Results - Last 24 Hours (Table) 12/23/24 12/23/24 12/23/24 Range/Units 01:11 01:11 05:56 WBC 12.5 H (3.8-10.6) k/uL Hgb 11.1 L (11.4-16.0) gm/dL MCH 24.1 L (25.0-35.0) pg MCHC 29.9 L (31.0-37.0) g/dL RDW 20.7 H (11.5-15.5) % Chloride 109 H (98-107) mmol/L Carbon Dioxide 19 L (22-30) mmol/L Glucose 139 H (74-99) mg/dL POC Glucose (mg/dL) 175 H (70-110) mg/dL Total Protein 5.7 L (6.3-8.2) g/dL Albumin 3.4 L (3.5-5.0) g/dL Diabetes panel 12/23/24 Range/Units 01:11 Sodium 137 (137-145) mmol/L Potassium 3.8 (3.5-5.1) mmol/L Chloride 109 H (98-107) mmol/L Carbon Dioxide 19 L (22-30) mmol/L BUN 10 (7-17) mg/dL Creatinine 0.87 (0.52-1.04) mg/dL Glucose 139 H (74-99) mg/dL Calcium 9.1 (8.4-10.2) mg/dL AST 17 (14-36) U/L ALT 15 (4-34) U/L Alkaline Phosphatase 80 (38-126) U/L Total Protein 5.7 L (6.3-8.2) g/dL Albumin 3.4 L (3.5-5.0) g/dL Calcium panel 12/23/24 Range/Units 01:11 Calcium 9.1 (8.4-10.2) mg/dL Albumin 3.4 L (3.5-5.0) g/dL Pituitary panel 12/23/24 Range/Units 01:11 Sodium 137 (137-145) mmol/L Potassium 3.8 (3.5-5.1) mmol/L Chloride 109 H (98-107) mmol/L Carbon Dioxide 19 L (22-30) mmol/L BUN 10 (7-17) mg/dL Creatinine 0.87 (0.52-1.04) mg/dL Glucose 139 H (74-99) mg/dL Calcium 9.1 (8.4-10.2) mg/dL Adrenal panel 12/23/24 Range/Units 01:11 Sodium 137 (137-145) mmol/L Potassium 3.8 (3.5-5.1) mmol/L Chloride 109 H (98-107) mmol/L Carbon Dioxide 19 L (22-30) mmol/L BUN 10 (7-17) mg/dL Creatinine 0.87 (0.52-1.04) mg/dL Glucose 139 H (74-99) mg/dL Calcium 9.1 (8.4-10.2) mg/dL Total Bilirubin 0.4 (0.2-1.3) mg/dL AST 17 (14-36) U/L ALT 15 (4-34) U/L Alkaline Phosphatase 80 (38-126) U/L Total Protein 5.7 L (6.3-8.2) g/dL Albumin 3.4 L (3.5-5.0) g/dL
[2024-12-23] MEDS: ASPIRIN 81 MG PO SCH (11:30)
[2024-12-23] MEDS: bisacodyL 10 MG SUPP RECTAL STA (11:30)
[2024-12-23] MEDS: DAPAGLIFLOZIN PROPANEDIOL 10 MG TABLET PO SCH (11:31)
[2024-12-23] MEDS: ESCITALOPRAM 10 MG TAB PO SCH (11:31)
[2024-12-23] MEDS: amLODIPine 10 MG TAB PO SCH (11:31)
[2024-12-23] MEDS: lisinopriL 10 MG TAB PO SCH (11:31)
[2024-12-23] MEDS: METOPROLOL TARTRATE 50 MG TAB PO SCH (11:31)
[2024-12-23] MEDS: ISOSORBIDE MONONITRATE ER 60 MG TAB.ER.24H PO SCH (11:31)
[2024-12-23] MEDS: RANOLAZINE 500 MG TAB.ER.12H PO SCH (11:31)
[2024-12-23] MEDS: PREGABALIN 75 MG CAP PO SCH (11:31)
[2024-12-23] MEDS: ARIPiprazole 5 MG TAB PO SCH (11:31)
[2024-12-23] MEDS: PANTOPRAZOLE 40 MG TABLET PO SCH (11:32)
[2024-12-23] MEDS: SENNOSIDES-DOCUSATE SODIUM 1 EACH TAB PO SCH (11:36)
--- NOTE | 2024-12-23 12:32 | P.PN ---
Subjective Progress Note Date: 12/23/24 Hospital course: Patient is a pleasant 54-year-old female with a past medical history of CAD status post CABG followed by stents, hypertension, hyperlipidemia, COPD, insulin-dependent diabetes mellitus, bipolar disorder, and recurrent ileus and small bowel obstructions with history of bowel resection x 2. She was recently admitted. For partial small bowel obstruction on 12/15/2024 and later discharged on 12/21/2024 after conservative management resulting in resolution of abdominal pain and return of normal bowel function. Patient reports after returning home she took her missed dose of Ozempic on day of discharge and initially she has continued to have normal bowel function but states that her abdominal pain returned the very next day on 12/22/2024 and was again accompanied by nausea. Patient reported this pain was centrally located and colicky in nature so she came to the emergency department for evaluation. Upon arrival to our facility, patient underwent evaluation in the ER. Vital signs upon arrival show blood pressure 129/99, heart rate 89, respiratory rate 20, temp 99.1 F, and SpO2 of present on room air. Labs completed and reviewed. CBC showing leukocytosis with WBC count of 12.5 and normocytic anemia with hemoglobin of 11.1. BMP showing mild metabolic acidosis with chloride of 109, bicarb of 19, and anion gap of 9. Blood glucose was 139. Lactic acid was 1.7. Liver profile was unremarkable with exception of low total protein of 5.7 and albumin of 3.4. Amylase and lipase normal findings. Urinalysis negative for blood, protein, or infection. CT abdomen pelvis with IV contrast was completed reporting partial bowel resection with mild fluid-filled small bowel in the right lower quadrant correlating for mild enteritis but no significant obstruction however a low- grade partial obstruction extending into the anastomotic suture line cannot be entirely excluded. Patient admitted under our services with consultation to general surgery. Physical exam: Patient seen and fully evaluated at bedside this morning. She reports her abdominal pain remains but has improved since arrival to our facility. She denies any further episodes of nausea and denies having any episodes of v omiting. Had long discussion with patient at bedside regarding her previously prescribed Ozempic and recommendations for discontinuation. Patient was informed that this medication will be discontinued on discharge and highly recommend stopping use and educated patient on adverse effects of this me dication and risks of recurrent episodes of gastroparesis, ileus, and increased risk of development of small bowel obstruction with her history. Patient did verbalize understanding. Vital signs reviewed and stable. General: Nontoxic, no distress and appears stated age. Derm: Skin warm and dry, normal coloration for ethnicity. Head: Atraumatic, normocephalic and symmetric. Eyes: EOM's intact, no lid lag, and anicteric sclera Mouth: no lip lesions, mucus membranes moist Cardiovascular: regular rate and rhythm with normal S1S2, no murmur, positive posterior tibial pulses bilaterally, and cap refill < 2 seconds. Lungs: Respirations even, regular, and unlabored on room air. Lungs CTA jaycee aterally, no rhonchi, no rales, no wheezing, and no accessory muscle usage. Abdominal: soft., BS x4, mild diffuse tenderness on palpation, no guarding, no appreciable organomegaly Ext: ROM intact. No gross muscle atrophy, no edema, no contractures Neuro: Speech clear, face symmetrical and CN II-XII grossly intact with no noted focal neuro deficits Psych: Alert and oriented to person, place, time, and situation. Appropriate and pleasant affect. Assessment and Plan of Care: Recurrent abdominal pain with possible low-grade partial small bowel obstruction -Continue conservative management. -Recommend discontinuation of Ozempic with patient's significant history of gastroparesis and recurrent small bowel obstructions and abdominal surgeries with previous bowel resections. Ozempic is a medication that is known to slow bowel motility placing patient at increased risk for recurrent episodes of gastroparesis and ileus which can in turn develop into small bowel obstruction. -General Surgery consulted for evaluation, discussed plan of care in detail with General Surgeon and General Surgery PA. -Will advance diet to clear liquids. -Continue gentle IV fluid hydration with 0.9% normal saline 100 cc/h. -Symptomatic care and pain management notes Zofran 4 mg IVP every 8 hours as needed for nausea and/or vomiting.. -GI prophylaxis with Protonix 40 mg daily. Insulin-dependent diabetes mellitus with hyperglycemia -Blood glucose currently 175. Patient to continue glycemic protocol with Humalog sliding scale. -As stated above, Ozempic to be discontinued. CAD status post CABG followed by stents Hypertension Hyperlipidemia Continue daily medication regimen with amlodipine 10 mg daily, aspirin 81 mg daily, atorvastatin 80 mg nightly, Farxiga 10 mg daily, isosorbide mononitrate 120 mg twice daily, lisinopril 10 mg daily, metoprolol 50 mg twice daily, and Ranexa 1000 mg twice daily. COPD, not in acute exacerbation -Supplement Ventolin inhaler for DuoNeb treatments 3 times daily and continue home Symbicort 160-4.5 mcg inhaler 2 puffs twice daily and Spiriva 2 puffs daily. Bipolar disorder Continue Xanax 0.5 mg twice daily, Abilify 5 mg daily, and Lyrica 150 mg 3 times daily. Data and imaging reviewed: -Labs completed and reviewed. CBC showing leukocytosis with WBC count of 12.5 and normocytic anemia with hemoglobin of 11.1. BMP showing mild metabolic acidosis with chloride of 109, bicarb of 19, and anion gap of 9. Blood glucose was 139. Lactic acid was 1.7. Liver profile was unremarkable with exception of low total protein of 5.7 and albumin of 3.4. Amylase and lipase normal findings. Urinalysis negative for blood, protein, or infection. -CT abdomen pelvis with IV contrast was completed reporting partial bowel resection with mild fluid-filled small bowel in the right lower quadrant correlating for mild enteritis but no significant obstruction however a low- grade partial obstruction extending into the anastomotic suture line cannot be entirely excluded. -Vital signs showing blood pressure 118/66, heart rate 97, respiratory rate 18, temp 99.1 F, and SpO2 of 94% on room air. CODE STATUS: Full code DVT prophylaxis: Heparin Discussed with: Patient, general surgeon, and general surgery PA Anticipated discharge date: Pending clinical course, possibly tomorrow pending bowel function and if patient tolerates advancement of diet and continued advancement Anticipated discharge place: Home Patient was seen independently by Nurse Pracitioner. This document was prepared using [employer] dictation software. Please allow for errors in gypsum block setter, while rare they do occur. Boris Hernandez NP rendered care for this patient independently, reviewed the findings and plan as documented in the note above and agree with plan. I did not physically speak with or examine the patient on this date. Objective - Vital Signs Vital signs: Vital Signs Temp 99.1 F 12/22/24 23:46 Pulse 97 12/23/24 05:53 Resp 18 12/23/24 05:53 BP 118/66 12/23/24 05:53 Pulse Ox 94 L 12/23/24 05:53 FiO2 Intake & Output 12/22/24 12/23/24 12/23/24 18:59 06:59 18:59 Weight 99.79 kg - Labs CBC & Chem 7: 12/23/24 01:11 12/23/24 01:11 Labs: Abnormal Lab Results - Last 24 Hours (Table) 12/23/24 12/23/24 12/23/24 Range/Units 01:11 01:11 05:56 WBC 12.5 H (3.8-10.6) k/uL Hgb 11.1 L (11.4-16.0) gm/dL MCH 24.1 L (25.0-35.0) pg MCHC 29.9 L (31.0-37.0) g/dL RDW 20.7 H (11.5-15.5) % Chloride 109 H (98-107) mmol/L Carbon Dioxide 19 L (22-30) mmol/L Glucose 139 H (74-99) mg/dL POC Glucose (mg/dL) 175 H (70-110) mg/dL Total Protein 5.7 L (6.3-8.2) g/dL Albumin 3.4 L (3.5-5.0) g/dL
[2024-12-23 14:45] LABS: Glucose,Whole Blood 173 mg/dL (70-110)
[2024-12-23 17:11] LABS: Glucose,Whole Blood 146 mg/dL (70-110)
[2024-12-23] MEDS: METOCLOPRAMIDE 5 MG/ML 2 ML VIAL IVP SCH (19:02)
[2024-12-23] MEDS: CLOPIDOGREL 75 MG TAB PO SCH (20:18)
[2024-12-23 20:28] LABS: Glucose,Whole Blood 108 mg/dL (70-110)
[2024-12-23] MEDS: ATORVASTATIN 80 MG TAB PO SCH (21:54)
[2024-12-23] MEDS: polyethylene glycoL 3350 17 GM POWD.PACK PO SCH (21:55)
[2024-12-23] MEDS ORDERED: ACETAMINOPHEN TAB 325 MG TAB PO PRN (22:53)
[2024-12-23] MEDS: HYDROcodone/APAP 5-325MG 1 EACH TAB PO PRN (23:22)
[2024-12-24 07:03] LABS: Glucose,Whole Blood 91 mg/dL (70-110)
[2024-12-24] MEDS: METOPROLOL TARTRATE 25 MG TAB PO SCH (09:36)
--- NOTE | 2024-12-24 11:00 | P.CRDCN ---
History of Present Illness Consult date: 12/24/24 Reason for Consult (text): Bradycardia History of present illness: This is a 54-year-old female patient follows with a cvicu nurse in [place] with past medical history of coronary artery disease status post CABG with vein graft to the LAD and residual disease in the left circumflex and RCA which is nonobstructive. Her last cardiac catheterization was performed in 2021. She also has a past medical history of hypertension, dyslipidemia, diabetes mellitus type 2. We have been asked to evaluate the patient for chest pain. Patient presented to the hospital due to abdominal pain. Patient was just discharged from the hospital on Monday after she was admitted for small bowel obstruction with conservative management. We have been asked to evaluate the patient for bradycardia. Patient states that she has been on metoprolol at 50 mg twice daily for a long period of time probably years. Blood pressure 108/64, heart rate 81 but running 48 during the night, pulse ox 96% on 2 L nasal cannula. Patient was resumed on beta-daniel at 50 mg twice daily but the last 2 doses were held by nursing due to bradycardia. -Laboratory studies: WBC 12.5, hemoglobin 11.1. Sodium 137, potassium 3.8, BUN 10 and creatinine 0.87. Hemoglobin A1c 6.8. Lipase 213. -Home cardiac medications: Amlodipine 10 mg daily, aspirin 81 mg daily, Lipitor 80 mg at bedtime, Plavix 75 mg daily, Farxiga 10 mg daily, Imdur 120 mg twice daily, lisinopril 10 mg daily, metoprolol tartrate 50 mg twice daily, Nitrostat as needed, Ranexa 1000 mg twice daily. -Cardiac catheterization performed 07/31/2024 at [facility] by Dr. Thompson revealed 50% mid RCA stenosis. Patent left circumflex stent and 40% in-stent stenosis with mild neointimal hyperplasia. 100% occluded ostial LAD. Patent vein graft to LAD. Occluded vein graft to OM. When compared to the findings from 2021, all arteries appear plum or with better runoff and distal left circumflex and LAD. Mid RCA disease has progressed from before currently at 40 to 50%. Plan was for medical management. -Echocardiogram performed 07/31/2024 revealed normal LV function and wall motion. Review Of Systems: At the time of my exam: CONSTITUTIONAL: Denies fever or chills. HEENT: Denies blurred vision, vision changes, or eye pain. Denies hemoptysis CARDIOVASCULAR: Denies chest pain. Denies orthopnea. Denies PND. Denies palpitations RESPIRATORY: Denies shortness of breath. GASTROINTESTINAL: Reports abdominal pain. Denies nausea or vomiting. HEMATOLOGIC: Denies bleeding disorders. GENITOURINARY: Denies any blood in urine. SKIN: Denies puritis. Denies rash. Physical examination: Gen: This is a 54-year-old female in no acute respiratory distress. VS: reviewed HEENT: Head is atraumatic, normocephalic. Pupils equal, round. Sclerae is anicteric. NECK: Supple. No JVD. LUNGS: Clear to auscultation. No wheezes or rhonchi. No intercostal retractions. HEART: Regular rate and rhythm. No murmur. ABDOMEN: Soft No tenderness. EXTREMITIES: No pedal edema. No calf tenderness. NEUROLOGICAL: Patient is awake, alert and oriented x3. Assessment: Bradycardia, asymptomatic Abdominal pain with partial small bowel obstruction History of history of coronary artery disease as noted above Hypertension Dyslipidemia Diabetes mellitus type 2 Plan: Resume patient's home cardiac medications but decrease beta-daniel to 25 mg twice daily No need to repeat echocardiogram At the time of discharge, patient will follow-up with her primary cvicu nurse in 2 weeks. No further cardiac workup at this time Cardiology will sign off this case and follow on an as-needed basis. Please reconsult for any new concerns. Thank you kindly for this consultation. Nurse practitioner note has been reviewed, I agree with documented findings and plan of care. Patient was seen and examined. Past Medical History Past Medical History: Asthma, Coronary Artery Disease (CAD), COPD, Diabetes Mellitus, GERD/Reflux, Hypertension, Myocardial Infarction (AK), Osteoarthritis (OA) Additional Past Medical History / Comment(s): DDD, scoliosis, AK x4, SBO Last Myocardial Infarction Date:: 2011 History of Any Multi-Drug Resistant Organisms: None Reported Past Surgical History: Appendectomy, Bowel Resection, Coronary Bypass/CABG, Heart Catheterization With Stent Additional Past Surgical History / Comment(s): seven stents, here for gastroenteritis with abcess (removal 06/21/24), per pt 2 ABD procedures at the same area, Bowel resection with appendectomy 07/05/2024 Past Anesthesia/Blood Transfusion Reactions: No Reported Reaction Date of Last Stent Placement:: 11/2018 Past Psychological History: Anxiety, Bipolar Smoking Status: Current every day smoker Past Alcohol Use History: None Reported Additional Past Alcohol Use History / Comment(s): 2 ppd Past Drug Use History: Marijuana Additional Drug Use History / Comment(s): currently smokes 1 joint per day - Past Family History Mother Family Medical History: Cancer Additional Family Medical History / Comment(s): Ovarian cancer Father Family Medical History: Congestive Heart Failure (CHF) Fmily Family Medical History: No Reported History Medications and Allergies Home Medications Medication Instructions Recorded Confirmed Type Atorvastatin [Lipitor] 80 mg PO HS 07/08/20 12/23/24 History Ranolazine [Ranexa] 1,000 mg PO BID 11/13/21 12/23/24 History Albuterol Inhaler [Ventolin Hfa 2 puff INHALATION RT-Q6H PRN 03/27/23 12/23/24 History Inhaler] Aspirin EC [Ecotrin Low Dose] 81 mg PO W/BRKFST 03/27/23 12/23/24 History Clopidogrel [Plavix] 75 mg PO DAILY 03/27/23 12/23/24 History Nitroglycerin Sl Tabs [Nitrostat] 0.4 mg SL Q5M PRN 03/27/23 12/23/24 History Omeprazole 40 mg PO AC-BID 03/27/23 12/23/24 History Pregabalin [Lyrica] 150 mg PO TID 03/27/23 12/23/24 History amLODIPine [Norvasc] 10 mg PO DAILY 03/27/23 12/23/24 History rOPINIRole HCL [Requip] 1 mg PO HS 03/27/23 12/23/24 History ALPRAZolam [Xanax] 0.5 mg PO BID PRN 06/22/23 12/23/24 History Insulin Lispro [humaLOG Kwikpen] See Protocol SQ AC-TID 03/16/24 12/23/24 History Ipratropium-Albuterol Nebulize 3 ml INHALATION RT-TID 03/16/24 12/23/24 History [Duoneb 0.5 mg-3 mg/3 ml Soln] Albuterol Nebulized [Ventolin 2.5 mg INHALATION RT-Q6H PRN 05/31/24 12/23/24 History Nebulized] Ondansetron Odt [Zofran ODT] 4 mg PO TID PRN 05/31/24 12/23/24 History lisinopriL [Zestril] 10 mg PO DAILY 05/31/24 12/23/24 History Dapagliflozin Propanediol [Farxiga] 10 mg PO DAILY 14 Days #14 tab 08/05/24 12/23/24 Rx Escitalopram [Lexapro] 10 mg PO DAILY 08/19/24 12/23/24 History ARIPiprazole [Abilify] 5 mg PO DAILY 12/16/24 12/23/24 History Fluticasone/Umeclidin/Vilanter 1 puff INHALATION RT-DAILY 12/16/24 12/23/24 History [Trelegy Ellipta 200-62.5-25] Isosorbide Mononitrate [Imdur] 120 mg PO BID 12/16/24 12/23/24 History Metoprolol Tartrate [Lopressor] 50 mg PO BID 12/16/24 12/23/24 History diphenhydrAMINE [Benadryl] 25 mg PO BID 12/16/24 12/23/24 History rOPINIRole HCL [Requip] 2 mg PO HS 12/23/24 12/23/24 History Allergies Allergy/AdvReac Type Severity Reaction Status Date / Time Iodinated Contrast Media Allergy Anaphylaxis Verified 12/23/24 09:00 Physical Exam Vitals: Vital Signs Temp Pulse Pulse Pulse Resp BP Pulse Ox 12/24/24 07:00 98.0 F 81 16 108/64 96 12/24/24 01:26 98.8 F 52 L 14 118/54 93 L 12/23/24 22:11 47 L 48 L 14 110/68 99 12/23/24 21:47 48 L 52 L 14 109/59 93 L 12/23/24 19:27 97.7 F 64 16 101/54 94 L 12/23/24 18:42 68 12/23/24 18:30 64 12/23/24 15:00 98.0 F 81 19 113/58 99 12/23/24 11:07 80 12/23/24 10:48 80 Intake and Output 12/23/24 12/24/24 12/24/24 22:59 06:59 14:59 Intake Total 960 Balance 960 Intake: Oral 960 Other: # Voids 4 Weight 99.79 kg Results 12/23/24 01:11 12/23/24 01:11 Current Medications Generic Name Dose Route Start Last Admin Trade Name Freq PRN Reason Stop Dose Admin Acetaminophen 650 mg 12/23/24 22:53 Acetaminophen Tab 325 Mg Tab PO Q6HR PRN Fever and/ or Pain Hydrocodone Bitart/Acetaminophen 1 each 12/23/24 22:51 12/24/24 06:32 Hydrocodone/Apap 5-325mg 1 Each Tab PO 1 each Q6HR PRN Administration Pain Albuterol/Ipratropium 3 ml 12/23/24 08:00 12/24/24 07:53 Ipratropium-Albuterol 3 Ml Neb INHALATION Not Given RT-TID AMANDA Alprazolam 0.5 mg 12/23/24 04:13 12/23/24 08:25 Alprazolam 0.5 Mg Tab PO 0.5 mg BID PRN Administration Anxiety Amlodipine Besylate 10 mg 12/23/24 09:00 12/24/24 09:00 Amlodipine 10 Mg Tab PO 10 mg DAILY AMANDA Administration Aripiprazole 5 mg 12/23/24 09:00 12/24/24 09:00 Aripiprazole 5 Mg Tab PO 5 mg DAILY AMANDA Administration Aspirin 81 mg 12/23/24 09:00 12/24/24 08:59 Aspirin 81 Mg PO 81 mg DAILY AMANDA Administration Atorvastatin Calcium 80 mg 12/23/24 21:00 12/23/24 21:54 Atorvastatin 80 Mg Tab PO 80 mg HS AMANDA Administration Budesonide/Formoterol Fumarate 2 puff 12/23/24 08:00 12/24/24 07:52 Symbicort 160-4.5 Mcg Inhaler INHALATION 2 puff RT-BID AMANDA Administration Dapagliflozin 10 mg 12/23/24 09:00 12/24/24 09:00 Dapagliflozin Propanediol 10 Mg Tablet PO 10 mg DAILY AMANDA Administration Dextrose/Water 50 ml 12/23/24 04:15 Dextrose 50% Syringe 50 Ml IVP PER PROTOCOL PRN Hypoglycemia Protocol Dextrose/Water 25 ml 12/23/24 04:15 Dextrose 50% Syringe 50 Ml IVP PER PROTOCOL PRN Hypoglycemia Protocol Escitalopram Oxalate 10 mg 12/23/24 09:00 12/24/24 09:01 Escitalopram 10 Mg Tab PO 10 mg DAILY AMANDA Administration Heparin Sodium (Porcine) 5,000 unit 12/23/24 08:00 12/24/24 08:59 Heparin Sodium,Porcine 5,000 Unit/Ml 1 Ml Vial SQ 5,000 unit Q8HR AMANDA Administration Sodium Chloride 1,000 mls @ 100 mls/hr 12/23/24 04:00 12/23/24 23:23 Saline 0.9% IV 100 mls/hr .Q10H AMANDA Administration Ibuprofen 800 mg 12/23/24 22:52 Ibuprofen 800 Mg Tab PO QID PRN Pain Insulin Human Lispro 0 unit 12/23/24 07:30 12/24/24 07:04 Insulin Lispro (Humalog) 100 Unit/Ml 10 Ml Vl SQ Not Given ACHS [facility] Protocol Isosorbide Mononitrate 120 mg 12/23/24 09:00 12/24/24 09:01 Isosorbide Mononitrate Er 60 Mg Tab.Er.24h PO 120 mg BID AMANDA Administration Lisinopril 10 mg 12/23/24 09:00 12/24/24 09:00 Lisinopril 10 Mg Tab PO 10 mg DAILY AMANDA Administration Metoclopramide HCl 10 mg 12/23/24 18:30 12/24/24 06:32 Metoclopramide 5 Mg/Ml 2 Ml Vial IVP 10 mg Q6HR AMANDA Administration Metoprolol Tartrate 50 mg 12/23/24 09:00 12/23/24 21:50 Metoprolol Tartrate 50 Mg Tab PO Not Given BID AMANDA Naloxone HCl 0.2 mg 12/23/24 03:56 Naloxone 0.4 Mg/Ml 1 Ml Vial IV Q2M PRN Opioid Reversal Ondansetron HCl 4 mg 12/23/24 04:15 12/23/24 05:42 Ondansetron 4 Mg/2 Ml Vial IVP 4 mg Q8H PRN Administration Nausea And Vomiting Pantoprazole Sodium 40 mg 12/23/24 07:30 12/24/24 07:50 Pantoprazole 40 Mg Tablet PO 40 mg AC-BRKFST AMANDA Administration Polyethylene Glycol 17 gm 12/23/24 21:00 12/23/24 21:55 Polyethylene Glycol 3350 17 Gm Powd.Pack PO 17 gm HS AMANDA Administration Pregabalin 150 mg 12/23/24 09:00 12/24/24 09:00 Pregabalin 75 Mg Cap PO 150 mg TID AMANDA Administration Ranolazine 1,000 mg 12/23/24 09:00 12/24/24 09:01 Ranolazine 500 Mg Tab.Er.12h PO 1,000 mg BID AMANDA Administration Ropinirole HCl 2 mg 12/23/24 21:00 12/23/24 21:56 Ropinirole Hcl 1 Mg Tab PO 2 mg HS AMANDA Administration Senna/Docusate Sodium 1 each 12/23/24 09:00 12/24/24 08:59 Sennosides-Docusate Sodium 1 Each Tab PO 1 each BID AMANDA Administration Tiotropium [place]imley 2 puff 12/23/24 08:00 12/24/24 07:52 Tiotropium 2.5 Mcg Inhaler INHALATION 2 puff RT-DAILY AMANDA Administration Intake and Output 12/23/24 12/24/24 12/24/24 22:59 06:59 14:59 Intake Total 960 Balance 960 Intake: Oral 960 Other: # Voids 4 Weight 99.79 kg 12/23/24 01:11 12/23/24 01:11
[2024-12-24] MEDS: LACTULOSE 20 GM/30 ML CUP PO ONE (11:36)
[2024-12-24 11:44] LABS: Glucose,Whole Blood 90 mg/dL (70-110)
--- NOTE | 2024-12-24 12:42 | P.PN ---
Subjective Progress Note Date: 12/24/24 Hospital course: Patient is a pleasant 54-year-old female with a past medical history of CAD status post CABG followed by stents, hypertension, hyperlipidemia, COPD, insulin-dependent diabetes mellitus, bipolar disorder, and recurrent ileus and small bowel obstructions with history of bowel resection x 2. She was recently admitted. For partial small bowel obstruction on 12/15/2024 and later discharged on 12/21/2024 after conservative management resulting in resolution of abdominal pain and return of normal bowel function. Patient reports after returning home she took her missed dose of Ozempic on day of discharge and initially she has continued to have normal bowel function but states that her abdominal pain returned the very next day on 12/22/2024 and was again accompanied by nausea. Patient reported this pain was centrally located and colicky in nature so she came to the emergency department for evaluation. Upon arrival to our facility, patient underwent evaluation in the ER. Vital signs upon arrival show blood pressure 129/99, heart rate 89, respiratory rate 20, temp 99.1 F, and SpO2 of present on room air. Labs completed and reviewed. CBC showing leukocytosis with WBC count of 12.5 and normocytic anemia with hemoglobin of 11.1. BMP showing mild metabolic acidosis with chloride of 109, bicarb of 19, and anion gap of 9. Blood glucose was 139. Lactic acid was 1.7. Liver profile was unremarkable with exception of low total protein of 5.7 and albumin of 3.4. Amylase and lipase normal findings. Urinalysis negative for blood, protein, or infection. CT abdomen pelvis with IV contrast was completed reporting partial bowel resection with mild fluid-filled small bowel in the right lower quadrant correlating for mild enteritis but no significant obstruction however a low- grade partial obstruction extending into the anastomotic suture line cannot be entirely excluded. Patient admitted under our services with consultation to general surgery. Physical exam: Patient seen and fully evaluated at bedside this morning. Patient reports she continues to have mild abdominal discomfort/cramping but states has improved from yesterday and significantly improved since arrival to our facility. Patient reports she is tolerating clear liquid intake and is requesting her diet to be advanced. Patient has only had 1 small bowel movement since arrival, informed patient that we will discuss with general surgery and likely will need to wait until patient has a bowel movement prior to advancing of diet. Patient verbalized understanding. She denies any episodes of nausea or vomiting or any other complaints at this time. Vital signs reviewed and stable. General: Nontoxic, no distress and appears stated age. Derm: Skin warm and dry, normal coloration for ethnicity. Head: Atraumatic, normocephalic and symmetric. Eyes: EOM's intact, no lid lag, and anicteric sclera Mouth: no lip lesions, mucus membranes moist Cardiovascular: regular rate and rhythm with normal S1S2, no murmur, positive posterior tibial pulses bilaterally, and cap refill < 2 seconds. Lungs: Respirations even, regular, and unlabored on room air. Lungs CTA bilaterally, no rhonchi, no rales, no wheezing, and no accessory muscle usage. Abdominal: soft., BS x4, mild diffuse tenderness left lower quadrant upon palpation, no guarding, no appreciable organomegaly Ext: ROM intact. No gross muscle atrophy, no edema, no contractures Neuro: Speech clear, face symmetrical and CN II-XII grossly intact with no noted focal neuro deficits Psych: Alert and oriented to person, place, time, and situation. Appropriate and pleasant affect. Assessment and Plan of Care: Recurrent abdominal pain with possible low-grade partial small bowel obstruction/ileus -Continue conservative management. -After discussing with general surgery team, order was placed for Reglan 10 mg IVP every 6 hours and a one-time dose of lactulose this morning. -Recommended discontinuation of Ozempic with patient's significant history of gastroparesis and recurrent small bowel obstructions and abdominal surgeries with previous bowel resections. Ozempic is a medication that is known to slow bowel motility placing patient at increased risk for recurrent episodes of gastroparesis and ileus which can in turn develop into small bowel obstruction. -General Surgery following discussed plan of care with General Surgery PA. -Continue clear liquid diet, once patient has another bowel movement may advance to full liquid diet. -Continue gentle IV fluid hydration with 0.9% normal saline 100 cc/h. -Symptomatic care and pain management notes Zofran 4 mg IVP every 8 hours as needed for nausea and/or vomiting.. -GI prophylaxis with Protonix 40 mg daily. Insulin-dependent diabetes mellitus with hyperglycemia -Blood glucose levels controlled this morning at 91. Patient to continue glycemic protocol with Humalog sliding scale. -As stated above, Ozempic to be discontinued. CAD status post CABG followed by stents Hypertension Hyperlipidemia Continue daily medication regimen with amlodipine 10 mg daily, aspirin 81 mg daily, atorvastatin 80 mg nightly, Farxiga 10 mg daily, isosorbide mononitrate 120 mg twice daily, lisinopril 10 mg daily, metoprolol 25 mg twice daily, and Ranexa 1000 mg twice daily. COPD, not in acute exacerbation -Supplement Ventolin inhaler for DuoNeb treatments 3 times daily and continue home Symbicort 160-4.5 mcg inhaler 2 puffs twice daily and Spiriva 2 puffs hilda y. Bipolar disorder Continue Xanax 0.5 mg twice daily, Abilify 5 mg daily, and Lyrica 150 mg 3 ti mes daily. Asymptomatic bradycardia -Overnight patient had an episode of bradycardia and nighttime physician consulted cardiology. Cardiology evaluated decreasing metoprolol to 25 mg twice daily and recommending patient follow-up outpatient with her primary program engagement director. Stating no need for repeating echocardiogram. Data and imaging reviewed: -Labs completed and reviewed. CBC showing leukocytosis with WBC count of 12.5 and normocytic anemia with hemoglobin of 11.1. BMP showing mild metabolic acidosis with chloride of 109, bicarb of 19, and anion gap of 9. Blood glucose was 139. Lactic acid was 1.7. Liver profile was unremarkable with exception of low total protein of 5.7 and albumin of 3.4. Amylase and lipase normal findings. Urinalysis negative for blood, protein, or infection. -Vital signs showing blood pressure 108/64, heart rate 81, respiratory rate 16, temp 98.0 F, and SpO2 of 96% on 2 L.. CODE STATUS: Full code DVT prophylaxis: Heparin Discussed with: Patient, general surgeon, and general surgery PA Anticipated discharge date: Pending clinical course, possibly tomorrow pending bowel function and if patient tolerates advancement of diet and continued advancement Anticipated discharge place: Home Patient was seen independently by Nurse Pracitioner. This document was prepared using [employer] dictation software. Please allow for errors in software installation engineer, while rare they do occur. Boris Hernandez NP rendered care for this patient independently, reviewed the findings and plan as documented in the note above and agree with plan. I did not physically speak with or examine the patient on this date. Objective - Vital Signs Vital signs: Vital Signs Temp 98.0 F 12/24/24 07:00 Pulse 81 12/24/24 07:00 Resp 16 12/24/24 07:00 BP 108/64 12/24/24 07:00 Pulse Ox 96 12/24/24 07:00 FiO2 Intake & Output 12/23/24 12/24/24 12/24/24 18:59 06:59 18:59 Intake Total 960 Balance 960 Weight 99.79 kg Intake: Oral 960 Other: # Voids 4 4 # Bowel Movements 1 - Labs CBC & Chem 7: 12/23/24 01:11 12/23/24 01:11 Labs: Abnormal Lab Results - Last 24 Hours (Table) 12/23/24 12/23/24 12/23/24 Range/Units 01:11 14:43 17:10 POC Glucose (mg/dL) 173 H 146 H (70-110) mg/dL Hemoglobin A1c 6.8 H (<=6.0) %
[2024-12-24] MEDS: IBUPROFEN 800 MG TAB PO PRN (12:52)
--- NOTE | 2024-12-24 13:09 | P.PN ---
Subjective Progress Note Date: 12/24/24 SURGICAL PROGRESS NOTE CHIEF COMPLAINT: Partial small bowel obstruction HISTORY OF PRESENT ILLNESS: Patient continues to complain of abdominal pain more so on the left side of the abdomen. She was having flatus. Did have a small BM yesterday after the suppository. Denies any nausea or vomiting. She has tolerated the clear liquids. Afebrile. PHYSICAL EXAM: VITAL SIGNS: Reviewed. GENERAL: Well-developed in no acute distress. ABDOMEN: Soft. Nondistended. Tenderness mid abdomen left side of old incision. No rebound or guarding noted NEUROLOGIC: Alert and oriented. Cranial nerves II through XII grossly intact. ASSESSMENT: 1. Abdominal pain 2. Low-grade partial small bowel obstruction extending into the anastomotic suture line not completely excluded on CT scan 3. Recent small bowel obstruction and hospitalization managed conservatively 4. History of abdominal surgeries PLAN: -Agree with 1 dose of lactulose. Discussed with medicine service -Continue Senokot -Encourage patient to ambulate -Continue clear liquid diet for now Physician Telegraph Operator note has been reviewed by physician. Signing provider agrees with the documented findings, assessment, and plan of care. Objective - Vital Signs Vital signs: Vital Signs Temp 98.0 F 12/24/24 07:00 Pulse 74 12/24/24 12:14 Resp 16 12/24/24 07:00 BP 108/64 12/24/24 07:00 Pulse Ox 96 12/24/24 07:00 FiO2 Intake & Output 12/23/24 12/24/24 12/24/24 18:59 06:59 18:59 Intake Total 960 Balance 960 Weight 99.79 kg Intake: Oral 960 Other: # Voids 4 4 # Bowel Movements 1 - Labs CBC & Chem 7: 12/23/24 01:11 12/23/24 01:11 Labs: Abnormal Lab Results - Last 24 Hours (Table) 12/23/24 12/23/24 12/23/24 Range/Units 01:11 01:11 14:43 POC Glucose (mg/dL) 173 H (70-110) mg/dL Hemoglobin A1c 6.8 H (<=6.0) % TSH 8.220 H (0.465-4.680) mIU/L 12/23/24 Range/Units 17:10 POC Glucose (mg/dL) 146 H (70-110) mg/dL Hemoglobin A1c (<=6.0) % TSH (0.465-4.680) mIU/L
[2024-12-24] MEDS: bisacodyL 10 MG SUPP RECTAL STA (14:31)
[2024-12-24] MEDS: MINERAL OIL 133 ML ENEMA RECTAL STA (16:51)
[2024-12-24 17:06] LABS: Glucose,Whole Blood 78 mg/dL (70-110)
[2024-12-24 19:46] LABS: Glucose,Whole Blood 125 mg/dL (70-110)
[2024-12-25 01:36] VITALS: RESP 16
[2024-12-25 06:04] LABS: Glucose,Whole Blood 74 mg/dL (70-110)
[2024-12-25 06:18] LABS: Glucose,Whole Blood 74 mg/dL (70-110)
[2024-12-25 09:16] LABS: Anisocytosis Moderate; HCT 32.2 % (34.0-46.0); HGB 9.7 gm/dL (11.4-16.0); Hypochromasia Marked; MCH 24.9 pg (25.0-35.0); MCHC 30.1 g/dL (31.0-37.0); MCV 82.9 fL (80.0-100.0); Mean Platelet Volume 8.6; Microcytosis Slight; Platelet Count 300 k/uL (150-450); RBC 3.89 m/uL (3.80-5.40); RDW 20.8 % (11.5-15.5); WBC 7.1 k/uL (3.8-10.6)
[2024-12-25 09:33] LABS: ALT 13 U/L (4-34); AST 18 U/L (14-36); African American GFR (CKD) 86 (>60 ml/min/1.73 sqM); Albumin 2.9 g/dL (3.5-5.0); Alkaline Phosphatase 70 U/L (38-126); Anion Gap 7 mmol/L; Blood Urea Nitrogen 6 mg/dL (7-17); Calcium 8.5 mg/dL (8.4-10.2); Carbon Dioxide 23 mmol/L (22-30); Chloride 109 mmol/L (98-107); Glucose 86 mg/dL (74-99); Magnesium 1.9 mg/dL (1.6-2.3); Non-African American GFR(CKD) 74 (>60 ml/min/1.73 sqM); Sodium 139 mmol/L (137-145); Total Bilirubin 0.5 mg/dL (0.2-1.3); Total Protein 4.9 g/dL (6.3-8.2)
--- NOTE | 2024-12-25 11:02 | P.PN ---
Subjective Progress Note Date: 12/25/24 Hospital course: Patient is a pleasant 54-year-old female with a past medical history of CAD status post CABG followed by stents, hypertension, hyperlipidemia, COPD, insulin-dependent diabetes mellitus, bipolar disorder, and recurrent ileus and small bowel obstructions with history of bowel resection x 2. She was recently admitted. For partial small bowel obstruction on 12/15/2024 and later discharged on 12/21/2024 after conservative management resulting in resolution of abdominal pain and return of normal bowel function. Patient reports after returning home she took her missed dose of Ozempic on day of discharge and initially she has continued to have normal bowel function but states that her abdominal pain returned the very next day on 12/22/2024 and was again accompanied by nausea. Patient reported this pain was centrally located and colicky in nature so she came to the emergency department for evaluation. Upon arrival to our facility, patient underwent evaluation in the ER. Vital signs upon arrival show blood pressure 129/99, heart rate 89, respiratory rate 20, temp 99.1 F, and SpO2 of present on room air. Labs completed and reviewed. CBC showing leukocytosis with WBC count of 12.5 and normocytic anemia with hemoglobin of 11.1. BMP showing mild metabolic acidosis with chloride of 109, bicarb of 19, and anion gap of 9. Blood glucose was 139. Lactic acid was 1.7. Liver profile was unremarkable with exception of low total protein of 5.7 and albumin of 3.4. Amylase and lipase normal findings. Urinalysis negative for blood, protein, or infection. CT abdomen pelvis with IV contrast was completed reporting partial bowel resection with mild fluid-filled small bowel in the right lower quadrant correlating for mild enteritis but no significant obstruction however a low- grade partial obstruction extending into the anastomotic suture line cannot be entirely excluded. Patient admitted under our services with consultation to general surgery. Physical exam: Patient seen and fully evaluated at bedside this morning. Patient reports feeling much better this morning, bowel function finally returned after administration of enema yesterday evening and she has had a total of 5 docume nted bowel movements overnight. Discussed with general surgery team, diet being advanced to full liquid diet at this time. Again educated patient that Ozempic is to be discontinued and she will be discharged home on daily MiraLAX once diet is fully advanced and she is tolerating. Plan for likely discharge either later this evening versus tomorrow morning. Vital signs reviewed and stable. General: Nontoxic, no distress and appears stated age. Derm: Skin warm and dry, normal coloration for ethnicity. Head: Atraumatic, normocephalic and symmetric. Eyes: EOM's intact, no lid lag, and anicteric sclera Mouth: no lip lesions, mucus membranes moist Cardiovascular: regular rate and rhythm with normal S1S2, no murmur, positive posterior tibial pulses bilaterally, and cap refill < 2 seconds. Lungs: Respirations even, regular, and unlabored on room air. Lungs CTA bilaterally, no rhonchi, no rales, no wheezing, and no accessory muscle usage. Abdominal: soft., BS x4, mild diffuse tenderness left lower quadrant upon palpation, no guarding, no appreciable organomegaly Ext: ROM intact. No gross muscle atrophy, no edema, no contractures Neuro: Speech clear, face symmetrical and CN II-XII grossly intact with no noted focal neuro deficits Psych: Alert and oriented to person, place, time, and situation. Appropriate and pleasant affect. Assessment and Plan of Care: Recurrent abdominal pain with possible low-grade partial small bowel obstruct ion/ileus -After administration of enema last night patient finally began having bowel movements. She has had a documented 5 bowel movements since administration of enema yesterday evening. -Continue Reglan 10 mg IVP every 6 hours and MiraLAX 17 g nightly. -Recommended discontinuation of Ozempic with patient's significant history of gastroparesis and recurrent small bowel obstructions and abdominal surgeries with previous bowel resections. Ozempic is a medication that is known to slow bowel motility placing patient at increased risk for recurrent episodes of gastroparesis and ileus which can in turn develop into small bowel obstruction. -General Surgery following discussed plan of care with General Surgery PA. Diet being advanced to full liquid and we will continue to monitor. -Patient tolerating oral intake, IV fluids discontinued at this time. -Symptomatic care and pain management notes Zofran 4 mg IVP every 8 hours as needed for nausea and/or vomiting.. -GI prophylaxis with Protonix 40 mg daily. Insulin-dependent diabetes mellitus with hyperglycemia -Blood glucose levels controlled this morning at 86. Patient to continue glycemic protocol with Humalog sliding scale. -As stated above, Ozempic to be discontinued. CAD status post CABG followed by stents Hypertension Hyperlipidemia Continue daily medication regimen with amlodipine 10 mg daily, aspirin 81 mg daily, atorvastatin 80 mg nightly, Farxiga 10 mg daily, isosorbide mononitrate 120 mg twice daily, lisinopril 10 mg daily, metoprolol 25 mg twice daily, and Ranexa 1000 mg twice daily. COPD, not in acute exacerbation -Supplement Ventolin inhaler for DuoNeb treatments 3 times daily and continue home Symbicort 160-4.5 mcg inhaler 2 puffs twice daily and Spiriva 2 puffs daily. Bipolar disorder Continue Xanax 0.5 mg twice daily, Abilify 5 mg daily, and Lyrica 150 mg 3 times daily. Asymptomatic bradycardia -Overnight patient had an episode of bradycardia and nighttime physician consulted cardiology. Cardiology evaluated decreasing metoprolol to 25 mg twice daily and recommending patient follow-up outpatient with her primary product sales engineer. Stating no need for repeating echocardiogram. Data and imaging reviewed: -Labs completed and reviewed. CBC showing microcytic anemia with hemoglobin of 9.7. BMP showing mild hyperchloremia with chloride of 109. Blood glucose 86. Magnesium 1.9. Liver profile unremarkable with exception of low total protein of 4.9 and albumin of 2.9. -Vital signs showing blood pressure 107/67, heart rate 71, respiratory rate 16, temp 98.1 F, and SpO2 of 97% on room air. CODE STATUS: Full code DVT prophylaxis: Heparin Discussed with: Patient, general surgeon, and general surgery PA Anticipated discharge date: Within the next [address]: Home Patient was seen independently by Nurse Pracitioner. This document was prepared using [employer] dictation software. Please allow for errors in human resources coordinator, while rare they do occur. Boris Hernandez NP rendered care for this patient independently, reviewed the findings and plan as documented in the note above and agree with plan. I did not physically speak with or examine the patient on this date. Objective - Vital Signs Vital signs: Vital Signs Temp 98.1 F 12/25/24 07:00 Pulse 57 L 12/25/24 07:00 Resp 16 12/25/24 07:00 BP 81/48 12/25/24 07:00 Pulse Ox 97 12/25/24 07:00 FiO2 Intake & Output 12/24/24 12/25/24 12/25/24 18:59 06:59 18:59 Intake Total 800 Balance 800 Intake: Intake, IV Titration 800 Amount Sodium Chloride 0.9% 1, 800 000 ml @ 100 mls/hr IV . Q10H [facility] Rx#:[id number] Other: # Bowel Movements 2 - Labs CBC & Chem 7: 12/25/24 08:03 12/25/24 08:03 Labs: Abnormal Lab Results - Last 24 Hours (Table) 12/23/24 12/24/24 Range/Units 01:11 19:44 POC Glucose (mg/dL) 125 H (70-110) mg/dL TSH 8.220 H (0.465-4.680) mIU/L
[2024-12-25 11:26] LABS: Glucose,Whole Blood 87 mg/dL (70-110)
--- NOTE | 2024-12-25 13:12 | P.PN ---
Subjective Progress Note Date: 12/25/24 SURGICAL PROGRESS NOTE CHIEF COMPLAINT: Partial small bowel obstruction HISTORY OF PRESENT ILLNESS: Patient reports abdominal pain is improved today. She had multiple bowel movements. She denies any nausea or vomiting. She is asking for more to eat. Hypotension has improved. WBC 7.1 Hgb 9.7 PHYSICAL EXAM: VITAL SIGNS: Reviewed. GENERAL: Well-developed in no acute distress. ABDOMEN: Soft. Nondistended. Mild tenderness mid abdomen left side of old incision. No rebound or guarding noted NEUROLOGIC: Alert and oriented. Cranial nerves II through XII grossly intact. ASSESSMENT: 1. Partial small bowel obstruction resolved PLAN: -Advance diet to full liquids -Continue bowel regimen -Encourage patient to ambulate Physician Sign Maintenance note has been reviewed by physician. Signing provider agrees with the documented findings, assessment, and plan of care. Attestation Patient seen and examined at bedside. States abdominal pain is greatly improved. Having multiple bowel movements. Requesting further diet. If patient continues to improve after advancement of diet, she is surgically stable for discharge. Recommending holding GLP-1 as this may be slowing her bowel regimen. Marga Samuel, Objective - Vital Signs Vital signs: Vital Signs Temp 98.1 F 12/25/24 07:00 Pulse 72 12/25/24 11:08 Resp 16 12/25/24 07:00 BP 107/67 12/25/24 08:35 Pulse Ox 97 12/25/24 07:00 FiO2 Intake & Output 12/24/24 12/25/24 12/25/24 18:59 06:59 18:59 Intake Total 800 Balance 800 Intake: Intake, IV Titration 800 Amount Sodium Chloride 0.9% 1, 800 000 ml @ 100 mls/hr IV . Q10H [facility] Rx#:[id number] Other: # Bowel Movements 2 - Labs CBC & Chem 7: 12/25/24 08:03 12/25/24 08:03 Labs: Abnormal Lab Results - Last 24 Hours (Table) 12/24/24 12/25/24 12/25/24 Range/Units 19:44 08:03 08:03 Hgb 9.7 L (11.4-16.0) gm/dL Hct 32.2 L (34.0-46.0) % MCH 24.9 L (25.0-35.0) pg MCHC 30.1 L (31.0-37.0) g/dL RDW 20.8 H (11.5-15.5) % Chloride 109 H (98-107) mmol/L BUN 6 L (7-17) mg/dL POC Glucose (mg/dL) 125 H (70-110) mg/dL Total Protein 4.9 L (6.3-8.2) g/dL Albumin 2.9 L (3.5-5.0) g/dL
[2024-12-25 15:51] VITALS: BP 103/67; PULSE 61; TEMP 99.1
--- NOTE | 2024-12-25 15:57 | P.DS ---
Providers Date of admission: 12/23/24 04:08 Expected date of discharge: 12/25/24 Attending physician: Ander Mccain MD Consults: 12/23/24 03:56 Consult Physician Routine Consulting Provider: Adrian Dubois Consult Reason/Comments: ?SBO Do you want consulting provider notified?: Already Contacted 12/24/24 04:33 Consult Physician Routine Consulting Provider: Iqra Ascencio Consult Reason/Comments: bradycardia Do you want consulting provider notified?: Yes, Notify in am Primary care physician: Stated None Hospital Course: Discharge Diagnosis: Recurrent abdominal pain with ileus versus low-grade partial small bowel obstruction. Resolved after conservative management. Patient had a total of 5 bowel movements and reports feeling great. Diet was slowly advanced and she is tolerating regular diet and free from any abdominal pain, nausea, vomiting, or any other complaints. Patient was strongly educated on the importance of discontinuation of Ozempic secondary to her history of gastroparesis and recurrent small bowel obstructions requiring repeated abdominal surgeries with bowel resections. Patient verbalized understanding. Patient medically optimized for discharge she is being discharged home on MiraLAX 17 g nightly, Ozempic was discontinued and patient also advised to avoid use Benadryl as she takes typically 4 times daily as needed. Patient to follow-up outpatient with PCP in 1 to 2 days and with general surgery in 1 to 2 weeks. Insulin-dependent diabetes mellitus with hyperglycemia and Ozempic discontinued patient to continue with daily medication regiment with Jardiance 10 mg daily and home Humalog sliding scale. CAD status post CABG followed by stents. Continue daily medication regimen with amlodipine 10 mg daily, aspirin 81 mg daily, atorvastatin 80 mg nightly, Farxiga 10 mg daily, isosorbide mononitrate 120 mg twice daily, lisinopril 10 mg daily, metoprolol 25 mg twice daily, and Ranexa 1000 mg twice daily. Hypertension. Continue daily medication regimen with amlodipine 10 mg daily, lisinopril 10 mg daily, and metoprolol 25 mg twice daily. Hyperlipidemia. Continue daily medication regimen with atorvastatin 80 mg nightly. COPD, not in acute exacerbation. Continue Ventolin inhaler 2 puffs every 6 hours as needed for wheezing/shortness of breath. Bipolar disorder. Continue home medication regimen with Xanax 0.5 mg twice daily, Abilify 5 mg daily, and Lyrica 150 mg 3 times daily. Asymptomatic bradycardia. Patient had episode of asymptomatic bradycardia and was evaluated by cardiology decreasing metoprolol to 25 mg twice daily. Patient to follow-up outpatient with her primary face man. Hospital course: Patient is a pleasant 54-year-old female with a past medical history of CAD status post CABG followed by stents, hypertension, hyperlipidemia, COPD, insulin-dependent diabetes mellitus, bipolar disorder, and recurrent ileus and small bowel obstructions with history of bowel resection x 2. She was recently admitted. For partial small bowel obstruction on 12/15/2024 and later discharged on 12/21/2024 after conservative management resulting in resolution of abdominal pain and return of normal bowel function. Patient reports after returning home she took her missed dose of Ozempic on day of discharge and initially she has continued to have normal bowel function but states that her abdominal pain returned the very next day on 12/22/2024 and was again accompanied by nausea. Patient reported this pain was centrally located and colicky in nature so she came to the emergency department for evaluation. Upon arrival to our facility, patient underwent evaluation in the ER. Vital signs upon arrival show blood pressure 129/99, heart rate 89, respiratory rate 20, temp 99.1 F, and SpO2 of present on room air. Labs completed and reviewed. CBC showing leukocytosis with WBC count of 12.5 and normocytic anemia with hemoglobin of 11.1. BMP showing mild metabolic acidosis with chloride of 109, bicarb of 19, and anion gap of 9. Blood glucose was 139. Lactic acid was 1.7. Liver profile was unremarkable with exception of low total protein of 5.7 and albumin of 3.4. Amylase and lipase normal findings. Urinalysis negative for blood, protein, or infection. CT abdomen pelvis with IV contrast was completed reporting partial bowel resection with mild fluid-filled small bowel in the right lower quadrant correlating for mild enteritis but no significant obstruction however a low- grade partial obstruction extending into the anastomotic suture line cannot be entirely excluded. Patient admitted under our services with consultation to general surgery. Patient was treated with conservative measures. Partial small bowel obstruction/ileus resolved with conservative management. Patient had a total of 5 bowel movements and reports feeling great. Diet was slowly advanced and she is tolerating regular diet and free from any abdominal pain, nausea, vomiting, or any other complaints. Patient was strongly educated on the importance of discontinuation of Ozempic secondary to her history of gastroparesis and recurrent small bowel obstructions requiring repeated abdominal surgeries with bowel resections. Patient verbalized understanding. Patient medically optimized for discharge she is being discharged home on MiraLAX 17 g nightly, Ozempic was discontinued and patient also advised to avoid use Benadryl as she takes typically 4 times daily as needed. Patient to follow- up outpatient with PCP in 1 to 2 days and with general surgery in 1 to 2 weeks. A total of 35 minutes of time were spent preparing this complex discharge summary. Pt was discharged on 12/25/2024 at 3:44 PM. Patient was seen independently by Nurse Practitioner. This document was prepared using [employer] dictation software. Please allow for errors in county auditor while rare they do occur. Boris Hernandez NP rendered care for this patient independently, reviewed the findings and plan as documented in the note above. I did not physically speak with or examine the patient on this date. Patient Condition at Discharge: Stable Plan - Discharge Summary Discharge Rx Participant: No New Discharge Prescriptions: New polyethylene glycoL 3350 [Miralax] 17 gm PO HS 30 Days #30 packet Metoprolol Tartrate [Lopressor] 25 mg PO BID 30 Days #60 tab Continue Atorvastatin [Lipitor] 80 mg PO HS Ranolazine [Ranexa] 1,000 mg PO BID Nitroglycerin Sl Tabs [Nitrostat] 0.4 mg SL Q5M PRN PRN Reason: Chest Pain Aspirin EC [Ecotrin Low Dose] 81 mg PO W/BRKFST Albuterol Inhaler [Ventolin Hfa Inhaler] 2 puff INHALATION RT-Q6H PRN PRN Reason: Shortness Of Breath Insulin Lispro [humaLOG Kwikpen] See Protocol SQ AC-TID Ipratropium-Albuterol Nebulize [Duoneb 0.5 mg-3 mg/3 ml Soln] 3 ml INHALATION RT-TID Ondansetron Odt [Zofran ODT] 4 mg PO TID PRN PRN Reason: Nausea lisinopriL [Zestril] 10 mg PO DAILY Dapagliflozin Propanediol [Farxiga] 10 mg PO DAILY 14 Days #14 tab ARIPiprazole [Abilify] 5 mg PO DAILY rOPINIRole HCL [Requip] 2 mg PO HS rOPINIRole HCL [Requip] 1 mg PO HS amLODIPine [Norvasc] 10 mg PO DAILY Omeprazole 40 mg PO AC-BID Pregabalin [Lyrica] 150 mg PO TID Clopidogrel [Plavix] 75 mg PO DAILY ALPRAZolam [Xanax] 0.5 mg PO BID PRN PRN Reason: Anxiety Albuterol Nebulized [Ventolin Nebulized] 2.5 mg INHALATION RT-Q6H PRN PRN Reason: Shortness Of Breath Escitalopram [Lexapro] 10 mg PO DAILY Isosorbide Mononitrate [Imdur] 120 mg PO BID Fluticasone/Umeclidin/Vilanter [Trelegy Ellipta 200-62.5-25] 1 puff INHALATION RT-DAILY Discontinued Semaglutide [Ozempic] 0.5 mg SQ TH diphenhydrAMINE [Benadryl] 25 mg PO BID Metoprolol Tartrate [Lopressor] 50 mg PO BID Discharge Medication List Atorvastatin [Lipitor] 80 mg PO HS 07/08/20 [History] Ranolazine [Ranexa] 1,000 mg PO BID 11/13/21 [History] Albuterol Inhaler [Ventolin Hfa Inhaler] 2 puff INHALATION RT-Q6H PRN 03/27/23 [History] Aspirin EC [Ecotrin Low Dose] 81 mg PO W/BRKFST 03/27/23 [History] Clopidogrel [Plavix] 75 mg PO DAILY 03/27/23 [History] Nitroglycerin Sl Tabs [Nitrostat] 0.4 mg SL Q5M PRN 03/27/23 [History] Omeprazole 40 mg PO AC-BID 03/27/23 [History] Pregabalin [Lyrica] 150 mg PO TID 03/27/23 [History] amLODIPine [Norvasc] 10 mg PO DAILY 03/27/23 [History] rOPINIRole HCL [Requip] 1 mg PO HS 03/27/23 [History] ALPRAZolam [Xanax] 0.5 mg PO BID PRN 06/22/23 [History] Insulin Lispro [humaLOG Kwikpen] See Protocol SQ AC-TID 03/16/24 [History] Ipratropium-Albuterol Nebulize [Duoneb 0.5 mg-3 mg/3 ml Soln] 3 ml INHALATION RT-TID 03/16/24 [History] Albuterol Nebulized [Ventolin Nebulized] 2.5 mg INHALATION RT-Q6H PRN 05/31/24 [History] Ondansetron Odt [Zofran ODT] 4 mg PO TID PRN 05/31/24 [History] lisinopriL [Zestril] 10 mg PO DAILY 05/31/24 [History] Dapagliflozin Propanediol [Farxiga] 10 mg PO DAILY 14 Days #14 tab 08/05/24 [Rx] Escitalopram [Lexapro] 10 mg PO DAILY 08/19/24 [History] ARIPiprazole [Abilify] 5 mg PO DAILY 12/16/24 [History] Fluticasone/Umeclidin/Vilanter [Trelegy Ellipta 200-62.5-25] 1 puff INHALATION RT-DAILY 12/16/24 [History] Isosorbide Mononitrate [Imdur] 120 mg PO BID 12/16/24 [History] rOPINIRole HCL [Requip] 2 mg PO HS 12/23/24 [History] Metoprolol Tartrate [Lopressor] 25 mg PO BID 30 Days #60 tab 12/25/24 [Rx] polyethylene glycoL 3350 [Miralax] 17 gm PO HS 30 Days #30 packet 12/25/24 [Rx] Follow up Appointment(s)/Referral(s): Adrian Dubois DO [Doctor of Osteopathic Medicine] - [facility] [NON-STAFF] - 1-2 Days (Please call and schedule follow up appointment prior to discharging patient. ) Patient Instructions/Handouts: Bowel Obstruction (DC), Ileus (DC), Gastroparesis (DC) Activity/Diet/Wound Care/Special Instructions: Activity: As tolerated. Take breaks as needed. Diet: Heart healthy, carb consistent, and high-fiber diet. Special Instructions: With your significant history of previous small bowel obstructions and abdominal surgeries, it is highly recommended discontinuation of Ozempic as this medication is known to slow bowel motility placing you at an increased risk for recurrent episodes of gastroparesis and ileus which can in turn develop into small bowel obstruction. Also avoid using Benadryl as this can also lead to constipation. Thank you for allowing us to participate in your care, it was truly a pleasure having you for our patient!!! Discharge Disposition: HOME SELF-CARE
== END 2024-12-25 17:14 | disposition home or self-care (01) | DRG 247 ==
LOC: EC 23:44 → 1SOBS 12-23 03:57 → OBSVTOIN 12-23 04:08 → 1SOBS 12-23 06:22
PROVIDERS: ADMIT Internal Medicine; ATTEND Internal Medicine
DX: K56.600 Partial intestinal obstruction, unspecified as to cause (principal); D64.9 Anemia, unspecified; E87.20 Acidosis, unspecified; F17.210 Nicotine dependence, cigarettes, uncomplicated; F31.9 Bipolar disorder, unspecified; F41.9 Anxiety disorder, unspecified; E11.43 Type 2 diabetes mellitus with diabetic autonomic (poly)neuropathy; K31.84 Gastroparesis; I10 Essential (primary) hypertension; I25.10 Atherosclerotic heart disease of native coronary artery without angina pectoris; J44.89 Other specified chronic obstructive pulmonary disease; E11.65 Type 2 diabetes mellitus with hyperglycemia; M41.9 Scoliosis, unspecified; Z95.5 Presence of coronary angioplasty implant and graft; Z79.4 Long term (current) use of insulin; D72.829 Elevated white blood cell count, unspecified; E78.5 Hyperlipidemia, unspecified; I25.2 Old myocardial infarction; Z79.02 Long term (current) use of antithrombotics/antiplatelets; Z79.82 Long term (current) use of aspirin; Z79.84 Long term (current) use of oral hypoglycemic drugs; Z79.899 Other long term (current) drug therapy; Z82.49 Family history of ischemic heart disease and other diseases of the circulatory system; Z90.49 Acquired absence of other specified parts of digestive tract; R00.1 Bradycardia, unspecified
CPT/HCPCS: 36415; 74177; 80053; 81003; 82150; 83036; 83605; 83690; 83735; 84439; 84443; 85025; 85027; 94640; 96374; 96375; 96376; 99285

== ENCOUNTER 2025-03-05 17:20 | Inpatient (IN) | payer OTHER ==
--- NOTE | 2025-03-05 17:29 | ED ---
General Adult HPI - General Chief complaint: Chest Pain Stated complaint: Chest pain Time Seen by Provider: 03/05/25 17:20 Source: patient, EMS, RN notes reviewed, old records reviewed Mode of arrival: EMS Limitations: no limitations - History of Present Illness Initial comments: This is a 54-year-old female with a past medical history significant for bypass surgery and 7 stents. Patient states she was just resting about about 45 minutes prior to arrival when she start having left-sided chest pain. Patient states she also became short of breath. Patient denies any radiation of the pain. Patient end any headache. Patient any numbness weakness. Patient denies any abdominal pain. Patient did not deny any recent fever chills or cough. Patient got Zofran and route and and had fentanyl and it did help a little - Related Data Home Medications Medication Instructions Recorded Confirmed Atorvastatin [Lipitor] 80 mg PO HS 07/08/20 12/23/24 Ranolazine [Ranexa] 1,000 mg PO BID 11/13/21 12/23/24 Albuterol Inhaler [Ventolin Hfa 2 puff INHALATION RT-Q6H PRN 03/27/23 12/23/24 Inhaler] Aspirin EC [Ecotrin Low Dose] 81 mg PO W/BRKFST 03/27/23 12/23/24 Clopidogrel [Plavix] 75 mg PO DAILY 03/27/23 12/23/24 Nitroglycerin Sl Tabs [Nitrostat] 0.4 mg SL Q5M PRN 03/27/23 12/23/24 Omeprazole 40 mg PO AC-BID 03/27/23 12/23/24 Pregabalin [Lyrica] 150 mg PO TID 03/27/23 12/23/24 amLODIPine [Norvasc] 10 mg PO DAILY 03/27/23 12/23/24 rOPINIRole HCL [Requip] 1 mg PO HS 03/27/23 12/23/24 ALPRAZolam [Xanax] 0.5 mg PO BID PRN 06/22/23 12/23/24 Insulin Lispro [humaLOG Kwikpen] See Protocol SQ AC-TID 03/16/24 12/23/24 Ipratropium-Albuterol Nebulize 3 ml INHALATION RT-TID 03/16/24 12/23/24 [Duoneb 0.5 mg-3 mg/3 ml Soln] Albuterol Nebulized [Ventolin 2.5 mg INHALATION RT-Q6H PRN 05/31/24 12/23/24 Nebulized] Ondansetron Odt [Zofran ODT] 4 mg PO TID PRN 05/31/24 12/23/24 lisinopriL [Zestril] 10 mg PO DAILY 05/31/24 12/23/24 Escitalopram [Lexapro] 10 mg PO DAILY 08/19/24 12/23/24 ARIPiprazole [Abilify] 5 mg PO DAILY 12/16/24 12/23/24 Fluticasone/Umeclidin/Vilanter 1 puff INHALATION RT-DAILY 12/16/24 12/23/24 [Trelegy Ellipta 200-62.5-25] Isosorbide Mononitrate [Imdur] 120 mg PO BID 12/16/24 12/23/24 rOPINIRole HCL [Requip] 2 mg PO HS 12/23/24 12/23/24 Previous Rx's Medication Instructions Recorded Dapagliflozin Propanediol [Farxiga] 10 mg PO DAILY 14 Days #14 tab 08/05/24 Metoprolol Tartrate [Lopressor] 25 mg PO BID 30 Days #60 tab 12/25/24 polyethylene glycoL 3350 [Miralax] 17 gm PO HS 30 Days #30 packet 12/25/24 Allergies Allergy/AdvReac Type Severity Reaction Status Date / Time Iodinated Contrast Media Allergy Anaphylaxis Verified 03/05/25 17:26 Review of Systems ROS Statement: Those systems with pertinent positive or pertinent negative responses have been documented in the HPI. ROS Other: All systems not noted in ROS Statement are negative. Past Medical History Past Medical History: Asthma, Coronary Artery Disease (CAD), COPD, Diabetes Mellitus, GERD/Reflux, Hypertension, Myocardial Infarction (VT), Osteoarthritis (OA) Additional Past Medical History / Comment(s): DDD, scoliosis, VT x4 Last Myocardial Infarction Date:: 2011 History of Any Multi-Drug Resistant Organisms: None Reported Past Surgical History: Appendectomy, Bowel Resection, Coronary Bypass/CABG, Heart Catheterization With Stent Additional Past Surgical History / Comment(s): seven stents, here for gastroenteritis with abcess (removal 06/21/24), per pt 2 ABD procedures at the same area, Bowel resection with appendectomy 07/05/2024 Past Anesthesia/Blood Transfusion Reactions: No Reported Reaction Date of Last Stent Placement:: 11/2018 Past Psychological History: Anxiety, Bipolar Smoking Status: Current every day smoker Past Alcohol Use History: None Reported Past Drug Use History: Marijuana - Past Family History Mother Family Medical History: Cancer Additional Family Medical History / Comment(s): Ovarian cancer Father Family Medical History: Congestive Heart Failure (CHF) Fmily Family Medical History: No Reported History General Exam - General Exam Comments Initial Comments: GENERAL: Patient is well-developed and well-nourished. Patient is nontoxic and well- hydrated and is in mild distress. ENT: Neck is soft and supple. No significant lymphadenopathy is noted. Oropharynx is clear. Moist mucous membranes. Neck has full range of motion without eliciting any pain. EYES: The sclera were anicteric and conjunctiva were pink and moist. Extraocular movements were intact and pupils were equal round and reactive to light. Eyelids were unremarkable. PULMONARY: Unlabored respirations. Good breath sounds bilaterally. No audible rales rhonchi or wheezing was noted. CARDIOVASCULAR: There is a regular rate and rhythm without any murmurs gallops or rubs. ABDOMEN: Soft and nontender with normal bowel sounds. SKIN: Skin is clear with no lesions or rashes and otherwise unremarkable. NEUROLOGIC: Patient is alert and oriented x3. Cranial nerves II through XII are grossly intact. Motor and sensory are also intact. Normal speech, volume and content. Symmetrical smile. MUSCULOSKELETAL: Normal extremities with adequate strength and full range of motion. No lower extremity swelling or edema. No calf tenderness. LYMPHATICS: No significant lymphadenopathy is noted PSYCHIATRIC: Patient is very anxious Limitations: no limitations Course Vital Signs 03/05/25 03/05/25 03/05/25 17:22 17:46 18:30 Temperature 98.7 F Pulse Rate 95 98 85 Respiratory 20 20 18 Rate Blood Pressure 131/89 128/78 118/23 O2 Sat by Pulse 96 95 95 Oximetry 03/05/25 19:26 Temperature Pulse Rate 86 Respiratory 20 Rate Blood Pressure 121/98 O2 Sat by Pulse 95 Oximetry Medical Decision Making - Medical Decision Making EKG is interpreted by myself and EKG shows a sinus rhythm at 87 bpm CA 116 QRS is 82 QT interval 356 QTc is 401. Patient's EKG shows no ST segment elevation or depression. Was pt. sent in by a medical professional or institution ([facility], [facility], urgent care, hospital, or fdc...) When possible be specific @ -No Did you speak to anyone other than the patient for history (EMS, parent, family, police, friend...)? What history was obtained from this source @ -No Did you review nursing and triage notes (agree or disagree)? Why? @ -I reviewed and agree with nursing and triage notes Were old charts reviewed (outside hosp., previous admission, EMS record, old EKG, old radiological studies, urgent care reports/EKG's, fdc records)? Report findings @ -No old charts were reviewed Differential Diagnosis? @ -Differential Chest Pain: Stable Angina, Unstable Angina, STEMI, NSTEMI Aortic Dissection, Pneumothorax, Musculoskeletal, Esophageal Spasm GERD, Cholecystitis, Pancreatitis, Zoster, this is not meant to be an all-inclusive list. EKG interpreted by me (3pts min.). @ -As above X-rays interpreted by me (1pt min.). @ -Chest x-ray shows no acute abnormality CT interpreted by me (1pt min.). @ -None done U/S interpreted by me (1pt. min.). @ -None done What testing was considered but not performed or refused? (CT, X-rays, U/S, labs)? Why? @ -None What meds were considered but not given or refused? Why? @ -None Did you discuss the management of the patient with other professionals (professionals i.e. [facility], [facility], lab, RT, psych nurse, long term care social worker, batch and furnace manager, teacher, information officer, casework manager)? Give summary @ -I spoke with [facility] they agreed to admit the patient admitted the patient I wrote admitting orders Was smoking cessation discussed for >3mins.? @ -No Was critical care preformed (if so, how long)? @ -No Were there social determinants of health that impacted care today? How? (Homelessness, low income, unemployed, alcoholism, drug addiction, transportation, low edu. Level, literacy, decrease access to med. care, penitentiary, rehab)? @ -No Was there de-escalation of care discussed even if they declined (Discuss DNR or withdrawal of care, Hospice)? DNR status @ -No What co-morbidities impacted this encounter? (DM, HTN, Smoking, COPD, CAD, Cancer, CVA, ARF, Chemo, Hep., AIDS, mental health diagnosis, sleep apnea, morbid obesity)? @ -None Was patient admitted / discharged? Hospital course, mention meds given and route, prescriptions, significant lab abnormalities, going to OR and other pertinent info. @ -Patient had lab work done and showed no elevation in troponin. Chest x-ray was normal. Patient continued to want Dilaudid and asked multiple times for it. Patient will be admitted to [facility] with a consult to cardiology Undiagnosed new problem with uncertain prognosis? @ -No Drug Therapy requiring intensive monitoring for toxicity (Heparin, Nitro, Insulin, Cardizem)? @ -No Were any procedures done? @ -No Diagnosis/symptom? @ -Chest pain Acute, or Chronic, or Acute on Chronic? @ -Acute Uncomplicated (without systemic symptoms) or Complicated (systemic symptoms)? @ -Complicated Side effects of treatment? @ -No Exacerbation, Progression, or Severe Exacerbation? @ -No Poses a threat to life or bodily function? How? (Chest pain, USA, VT, pneumonia, PE, COPD, DKA, ARF, appy, cholecystitis, CVA, Diverticulitis, Homicidal, Suicidal, threat to staff... and all critical care pts) @ -Yes this can lead to an VT and endorgan dysfunction - Lab Data Result diagrams: 03/05/25 17:31 03/05/25 17:31 Lab Results 03/05/25 03/05/25 03/05/25 Range/Units 17:31 17:31 17:31 WBC 11.65 H (4.50-10.00) 10*3/uL RBC 4.57 (4.10-5.20) 10*6/uL Hgb 11.7 L (12.0-15.0) g/dL Hct 35.7 L (37.2-46.3) % MCV 78.1 L (80.0-97.0) fL MCH 25.6 L (27.0-32.0) pg MCHC 32.8 (32.0-37.0) g/dL Plt Count 328 (140-440) 10*3/uL MPV 10.3 (9.5-12.2) fL Immature Gran % (Auto) 0.7 % Neutrophils % (Manual) 48 % Lymphocytes % (Manual) 40 % Monocytes % (Manual) 6 % Eosinophils % (Manual) 6 % Immature Gran # 0.08 H (0.00-0.04) 10*3/uL Neutrophils # (Manual) 5.59 (1.3-7.7) k/uL Lymphocytes # (Manual) 4.66 (1.0-4.8) k/uL Monocytes # (Manual) 0.70 (0-1.0) k/uL Eosinophils # (Manual) 0.70 (0-0.7) k/uL Nucleated RBCs 0 (0-0) /100 WBC Manual Slide Review Performed Large Platelets Present Polychromasia Present PT 10.1 (10.0-12.5) sec INR 0.9 (<1.2) APTT 22.5 (22.0-30.0) sec Sodium 136 L (137-145) mmol/L Potassium 4.7 (3.5-5.1) mmol/L Chloride 105 (98-107) mmol/L Carbon Dioxide 21 L (22-30) mmol/L Anion Gap 10 mmol/L BUN 10 (7-17) mg/dL Creatinine 0.75 (0.52-1.04) mg/dL Est GFR (CKD-EPI)AfAm >90 (>60 ml/min/1.73 sqM) Est GFR (CKD-EPI)NonAf 90 (>60 ml/min/1.73 sqM) Glucose 173 H (74-99) mg/dL Calcium 8.7 (8.4-10.2) mg/dL Magnesium 1.4 L (1.6-2.3) mg/dL Total Bilirubin 0.7 (0.2-1.3) mg/dL AST 30 (14-36) U/L ALT 15 (4-34) U/L Alkaline Phosphatase 113 (38-126) U/L Troponin I (0.000-0.034) ng/mL Total Protein 7.1 (6.3-8.2) g/dL Albumin 4.2 (3.5-5.0) g/dL 03/05/25 Range/Units 17:31 WBC (4.50-10.00) 10*3/uL RBC (4.10-5.20) 10*6/uL Hgb (12.0-15.0) g/dL Hct (37.2-46.3) % MCV (80.0-97.0) fL MCH (27.0-32.0) pg MCHC (32.0-37.0) g/dL Plt Count (140-440) 10*3/uL MPV (9.5-12.2) fL Immature Gran % (Auto) % Neutrophils % (Manual) % Lymphocytes % (Manual) % Monocytes % (Manual) % Eosinophils % (Manual) % Immature Gran # (0.00-0.04) 10*3/uL Neutrophils # (Manual) (1.3-7.7) k/uL Lymphocytes # (Manual) (1.0-4.8) k/uL Monocytes # (Manual) (0-1.0) k/uL Eosinophils # (Manual) (0-0.7) k/uL Nucleated RBCs (0-0) /100 WBC Manual Slide Review Large Platelets Polychromasia PT (10.0-12.5) sec INR (<1.2) APTT (22.0-30.0) sec Sodium (137-145) mmol/L Potassium (3.5-5.1) mmol/L Chloride (98-107) mmol/L Carbon Dioxide (22-30) mmol/L Anion Gap mmol/L BUN (7-17) mg/dL Creatinine (0.52-1.04) mg/dL Est GFR (CKD-EPI)AfAm (>60 ml/min/1.73 sqM) Est GFR (CKD-EPI)NonAf (>60 ml/min/1.73 sqM) Glucose (74-99) mg/dL Calcium (8.4-10.2) mg/dL Magnesium (1.6-2.3) mg/dL Total Bilirubin (0.2-1.3) mg/dL AST (14-36) U/L ALT (4-34) U/L Alkaline Phosphatase (38-126) U/L Troponin I <0.012 (0.000-0.034) ng/mL Total Protein (6.3-8.2) g/dL Albumin (3.5-5.0) g/dL Disposition Clinical Impression: Chest pain Disposition: ADMITTED IP TO THIS [facility] Referrals: Nonstaff,Physician [Primary Care Provider] - 1-2 days Time of Disposition: 20:20
[2025-03-05 17:42] LABS: HCT 35.7 % (37.2-46.3); HGB 11.7 g/dL (12.0-15.0); MCH 25.6 pg (27.0-32.0); MCHC 32.8 g/dL (32.0-37.0); MCV 78.1 fL (80.0-97.0); Mean Platelet Volume 10.3 fL (9.5-12.2); Platelet Count 328 10*3/uL (140-440); RBC 4.57 10*6/uL (4.10-5.20); WBC 11.65 10*3/uL (4.50-10.00)
[2025-03-05] MEDS: NITROGLYCERIN OINT 1 INCH/GM PACKET TOPICAL STA (17:43)
[2025-03-05] MEDS: SODIUM CHLORIDE 0.9% 500 ML 500 ML IV STA (17:43)
[2025-03-05] MEDS: LORazepam 1 MG/0.5 ML VIAL IV STA (17:44)
[2025-03-05 18:08] LABS: ALT 15 U/L (4-34); African American GFR (CKD) >90 (>60 ml/min/1.73 sqM); Albumin 4.2 g/dL (3.5-5.0); Anion Gap 10 mmol/L; Blood Urea Nitrogen 10 mg/dL (7-17); Calcium 8.7 mg/dL (8.4-10.2); Carbon Dioxide 21 mmol/L (22-30); Chloride 105 mmol/L (98-107); Glucose 173 mg/dL (74-99); Non-African American GFR(CKD) 90 (>60 ml/min/1.73 sqM); Sodium 136 mmol/L (137-145); Total Bilirubin 0.7 mg/dL (0.2-1.3); Total Protein 7.1 g/dL (6.3-8.2)
[2025-03-05 18:09] LABS: AST 30 U/L (14-36); Alkaline Phosphatase 113 U/L (38-126); Magnesium 1.4 mg/dL (1.6-2.3); Potassium 4.7 mmol/L (3.5-5.1)
[2025-03-05 18:23] LABS: INR 0.9 (<1.2); Partial Thromboplastin Time 22.5 sec (22.0-30.0); Prothrombin Time 10.1 sec (10.0-12.5)
[2025-03-05 18:27] LABS: Large Platelets Present; Lymphocytes # (M) 4.66 k/uL (1.0-4.8); Neutrophils # (M) 5.59 k/uL (1.3-7.7); Neutrophils % (M) 48 %; Nucleated Red Blood Cells 0 /100 WBC (0-0); Polychromasia Present; Total Cells Counted 100
--- NOTE | 2025-03-05 18:47 | XR ---
EXAMINATION TYPE: XR chest 2V DATE OF EXAM: 03/05/2025 6:07 PM COMPARISON: Chest radiographs from 12/16/2024. CLINICAL INDICATION: Female, 54 years old with history of Chest Pain; [facility] TECHNIQUE: XR chest 2V Frontal and lateral views of the chest. FINDINGS: Lungs/Pleura: There is no evidence of pleural effusion, focal consolidation, or pneumothorax. Pulmonary vascularity: Unremarkable. Heart/mediastinum: Cardiomediastinal silhouette is unremarkable. Musculoskeletal: No acute osseous pathology. Midline sternotomy wires are noted. IMPRESSION: No acute cardiopulmonary disease/process. [facility], , 03/05/2025 6:44 PM
[2025-03-05] MEDS: MAGNESIUM SULFATE-D5W PMX 1 GM in DEXTROSE/WATER 1 100ML.BAG IVPB ONE (20:16)
[2025-03-05] MEDS ORDERED: NITROGLYCERIN SL TABS 0.4 MG TAB SUBLINGUAL PRN (20:20)
[2025-03-06] MEDS: NITROGLYCERIN OINT 1 INCH/GM PACKET TOPICAL SCH (02:55)
[2025-03-06] MEDS ORDERED: LORazepam 1 MG/0.5 ML VIAL IV PRN (05:53)
[2025-03-06] MEDS: MORPHINE SULFATE 2 MG/ML SYRINGE IVP STA ×2 (06:24→12:21)
[2025-03-06 08:36] LABS: Chol/HDL Ratio 4.13 Ratio; LDL Cholesterol,Calculated 82.8 mg/dL (0.0-131.0)
[2025-03-06] MEDS: ASPIRIN 325 MG TAB PO SCH (08:49)
--- NOTE | 2025-03-06 10:27 | P.CRDCN ---
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 She has a past medical history of coronary artery disease with CABG in 2008 with most recent cardiac catheterization 07/29/2024 as below, hypertension, hyperlipidemia, COPD, tobacco use and dependence. We have been asked to evaluate the patient for chest pain. Patient states she came into the hospital due to bad chest pain. She states she took an Xanax and was taken a nap and the pain started while she was sleeping. She states she is having it on and off. She states she is also having shortness of breath. She is waking up with shortness of breath at nighttime. She complains of cough and wheezing. She denies any palpitations no lower extremity edema. Chest pain is worse with deep breathing. She also complains of back pain with deep breathing. She denies palpitations. She states she had a stroke many years ago. She denies seizure activity. No blood in her urine or stool. Blood pressure 123/77, heart rate 81, pulse ox 95% on 2 L nasal cannula. She states she has been taking all of he r medications as directed. Patient is seen today in the emergency center waiting for a bed on the observation unit. She has been started on Nitropaste. Patient was seen by cardiology in November of this year following a hospitalization for partial small bowel obstruction. Patient was seen by cardiology for bradycardia that was asymptomatic but recommendations were to decrease the beta- daniel to 25 mg twice daily. -EKG: Sinus rhythm with no acute ST-T wave changes. -Chest x-ray: No acute process. -Laboratory studies: Troponin negative x 3. Triglycerides 253, cholesterol 176, LDL 82, HDL 42. Sodium 136, potassium 4.7, creatinine 0.75. Glucose 173. Magnesium 1.4. WBC 11.6, hemoglobin 9.7. -Home cardiac medications: Have not been confirmed at the time of this dictation. -Cardiac catheterization performed 07/29/2024 revealed 50% mid RCA stenosis, patent left circumflex stent with 40% in-stent restenosis and mild neointimal hyperplasia, 100% occluded ostial LAD, patent vein graft to the LAD, occluded vein graft to the OM. Recommendations at that time were for maximizing medical therapy, dual antiplatelet with Plavix and aspirin for 12 months and continue Lipitor, Ranexa, Imdur, metoprolol. -Echocardiogram limited study performed 07/30/2024 revealed EF 55 to 60%. Review Of Systems: At the time of my exam: CONSTITUTIONAL: Denies fever or chills. HEENT: Denies blurred vision, vision changes, or eye pain. Denies hemoptysis CARDIOVASCULAR: Denies chest pain. Denies orthopnea. Denies PND. Denies palpitations RESPIRATORY: Denies shortness of breath. GASTROINTESTINAL: Denies abdominal pain. Denies nausea or vomiting. HEMATOLOGIC: Denies bleeding disorders. GENITOURINARY: Denies any blood in urine. SKIN: Denies puritis. Denies rash. Physical examination: Gen: This is a 54-year-old female in no acute distress VS: reviewed HEENT: Head is atraumatic, normocephalic. Pupils equal, round. Sclerae is anicteric. NECK: Supple. No JVD. LUNGS: Bilateral rhonchi. No wheezing. No intercostal retractions. HEART: Regular rate and rhythm. Systolic murmur. + Chest wall tenderness ABDOMEN: Soft No tenderness. EXTREMITIES: No pedal edema. No calf tenderness. NEUROLOGICAL: Patient is awake, alert and oriented x3. Assessment: Atypical chest pain, probably noncardiac, probably due to COPD Elevated blood sugar possible diabetes History of coronary artery disease with previous CABG and on medical therapy. Most recent cardiac catheterization performed 07/29/2024 as above Hypertension Hyperlipidemia COPD exacerbation Tobacco use and dependence. Plan: Resume the following cardiac medications: Aspirin 81 mg daily, atorvastatin 80 mg at bedtime, Plavix 75 mg daily, Imdur 30 mg daily, lisinopril 10 mg daily, metoprolol tartrate 25 mg twice daily, Ranexa 1000 mg every 12 hours, Discontinue Nitropaste Obtain 2-D echocardiogram and Doppler study to assess cardiac structure and function Smoking cessation. Dr. Ascencio discussed with the patient need for smoking cessation and she will be provided with the [place] quit line information at discharge. If echocardiogram is unremarkable, patient is cleared for discharge from cardiology will follow-up with her oyster harvester in [place]. No further cardiac workup at this time Thank you kindly for this consultation. Nurse practitioner note has been reviewed, I agree with documented findings and plan of care. Patient was seen and examined. Past Medical History Past Medical History: Asthma, Coronary Artery Disease (CAD), COPD, Diabetes Mellitus, GERD/Reflux, Hypertension, Myocardial Infarction ([place]), Osteoarthritis (OA) Additional Past Medical History / Comment(s): DDD, scoliosis, [place] x4 Last Myocardial Infarction Date:: 2011 History of Any Multi-Drug Resistant Organisms: None Reported Past Surgical History: Appendectomy, Bowel Resection, Coronary Bypass/CABG, Heart Catheterization With Stent Additional Past Surgical History / Comment(s): seven stents, here for gastroenteritis with abcess (removal 06/21/24), per pt 2 ABD procedures at the same area, Bowel resection with appendectomy 07/05/2024 Past Anesthesia/Blood Transfusion Reactions: No Reported Reaction Date of Last Stent Placement:: 11/2018 Past Psychological History: Anxiety, Bipolar Smoking Status: Current every day smoker Past Alcohol Use History: None Reported Past Drug Use History: Marijuana - Past Family History Mother Family Medical History: Cancer Additional Family Medical History / Comment(s): Ovarian cancer Father Family Medical History: Congestive Heart Failure (CHF) Fmily Family Medical History: No Reported History Medications and Allergies Home Medications Medication Instructions Recorded Confirmed Type Atorvastatin [Lipitor] 80 mg PO HS 07/08/20 12/23/24 History Ranolazine [Ranexa] 1,000 mg PO BID 11/13/21 12/23/24 History Albuterol Inhaler [Ventolin Hfa 2 puff INHALATION RT-Q6H PRN 03/27/23 12/23/24 History Inhaler] Aspirin EC [Ecotrin Low Dose] 81 mg PO W/BRKFST 03/27/23 12/23/24 History Clopidogrel [Plavix] 75 mg PO DAILY 03/27/23 12/23/24 History Nitroglycerin Sl Tabs [Nitrostat] 0.4 mg SL Q5M PRN 03/27/23 12/23/24 History Omeprazole 40 mg PO AC-BID 03/27/23 12/23/24 History Pregabalin [Lyrica] 150 mg PO TID 03/27/23 12/23/24 History amLODIPine [Norvasc] 10 mg PO DAILY 03/27/23 12/23/24 History rOPINIRole HCL [Requip] 1 mg PO HS 03/27/23 12/23/24 History ALPRAZolam [Xanax] 0.5 mg PO BID PRN 06/22/23 12/23/24 History Insulin Lispro [humaLOG Kwikpen] See Protocol SQ AC-TID 03/16/24 12/23/24 History Ipratropium-Albuterol Nebulize 3 ml INHALATION RT-TID 03/16/24 12/23/24 History [Duoneb 0.5 mg-3 mg/3 ml Soln] Albuterol Nebulized [Ventolin 2.5 mg INHALATION RT-Q6H PRN 05/31/24 12/23/24 History Nebulized] Ondansetron Odt [Zofran ODT] 4 mg PO TID PRN 05/31/24 12/23/24 History lisinopriL [Zestril] 10 mg PO DAILY 05/31/24 12/23/24 History Dapagliflozin Propanediol [Farxiga] 10 mg PO DAILY 14 Days #14 tab 08/05/24 12/23/24 Rx Escitalopram [Lexapro] 10 mg PO DAILY 08/19/24 12/23/24 History ARIPiprazole [Abilify] 5 mg PO DAILY 12/16/24 12/23/24 History Fluticasone/Umeclidin/Vilanter 1 puff INHALATION RT-DAILY 12/16/24 12/23/24 History [Trelegy Ellipta 200-62.5-25] Isosorbide Mononitrate [Imdur] 120 mg PO BID 12/16/24 12/23/24 History rOPINIRole HCL [Requip] 2 mg PO HS 12/23/24 12/23/24 History Metoprolol Tartrate [Lopressor] 25 mg PO BID 30 Days #60 tab 12/25/24 Rx polyethylene glycoL 3350 [Miralax] 17 gm PO HS 30 Days #30 packet 12/25/24 Rx Allergies Allergy/AdvReac Type Severity Reaction Status Date / Time Iodinated Contrast Media Allergy Anaphylaxis Verified 03/05/25 17:26 Physical Exam Vitals: Vital Signs Temp Pulse Resp BP Pulse Ox 03/06/25 06:21 85 18 118/66 99 03/06/25 05:31 89 18 133/91 100 03/06/25 02:54 72 18 112/74 94 L 03/05/25 22:27 82 18 135/85 96 03/05/25 19:26 86 20 121/98 95 03/05/25 18:30 85 18 118/23 95 03/05/25 17:46 98 20 128/78 95 03/05/25 17:22 98.7 F 95 20 131/89 96 Intake and Output 03/05/25 03/06/25 03/06/25 22:59 06:59 14:59 Other: Weight 90.718 kg Results 03/05/25 17:31 03/05/25 17:31 Cardiac Enzymes 03/05/25 03/05/25 03/05/25 Range/Units 17:31 17:31 20:54 AST 30 (14-36) U/L Troponin I <0.012 <0.012 (0.000-0.034) ng/mL 03/06/25 Range/Units 00:18 AST (14-36) U/L Troponin I <0.012 (0.000-0.034) ng/mL Coagulation 03/05/25 Range/Units 17:31 PT 10.1 (10.0-12.5) sec APTT 22.5 (22.0-30.0) sec Lipids 03/05/25 Range/Units 17:31 Triglycerides 253.00 H (0.00-149.00) mg/dL Cholesterol 176.00 (0.00-200.00) mg/dL HDL Cholesterol 42.60 (40.00-60.00) mg/dL Cholesterol/HDL Ratio 4.13 Ratio CBC 03/05/25 Range/Units 17:31 WBC 11.65 H (4.50-10.00) 10*3/uL RBC 4.57 (4.10-5.20) 10*6/uL Hgb 11.7 L (12.0-15.0) g/dL Hct 35.7 L (37.2-46.3) % Plt Count 328 (140-440) 10*3/uL Comprehensive Metabolic Panel 03/05/25 Range/Units 17:31 Sodium 136 L (137-145) mmol/L Potassium 4.7 (3.5-5.1) mmol/L Chloride 105 (98-107) mmol/L Carbon Dioxide 21 L (22-30) mmol/L BUN 10 (7-17) mg/dL Creatinine 0.75 (0.52-1.04) mg/dL Glucose 173 H (74-99) mg/dL Calcium 8.7 (8.4-10.2) mg/dL AST 30 (14-36) U/L ALT 15 (4-34) U/L Alkaline Phosphatase 113 (38-126) U/L Total Protein 7.1 (6.3-8.2) g/dL Albumin 4.2 (3.5-5.0) g/dL Current Medications Generic Name Dose Route Start Last Admin Trade Name Freq PRN Reason Stop Dose Admin Aspirin 325 mg 03/06/25 09:00 Aspirin 325 Mg Tab PO DAILY AMANDA Lorazepam 0.5 mg 03/06/25 05:53 Lorazepam 1 Mg/0.5 Ml Vial IV BID PRN Anxiety Nitroglycerin 0.4 mg 03/05/25 20:20 Nitroglycerin Sl Tabs 0.4 Mg Tab SUBLINGUAL Q5M PRN Chest Pain Nitroglycerin 1 inch 03/06/25 00:00 03/06/25 06:24 Nitroglycerin Oint 1 Inch/Gm Packet TOPICAL 1 inch Q6HR [facility] Administration Intake and Output 03/05/25 03/06/25 03/06/25 22:59 06:59 14:59 Other: Weight 90.718 kg 03/05/25 17:31 03/05/25 17:31
[2025-03-06] MEDS: RANOLAZINE 500 MG TAB.ER.12H PO SCH (10:45)
[2025-03-06] MEDS: METOPROLOL TARTRATE 25 MG TAB PO SCH (10:46)
[2025-03-06] MEDS: lisinopriL 10 MG TAB PO SCH (10:46)
[2025-03-06] MEDS: ISOSORBIDE MONONITRATE ER 30 MG TAB.ER.24H PO SCH (10:46)
[2025-03-06] MEDS: CLOPIDOGREL 75 MG TAB PO SCH ×2 (10:46→13:48)
--- NOTE | 2025-03-06 13:22 | P.HPIM ---
History of Present Illness 54-year-old female with history of coronary artery disease CABG in the past came in with complaints of shortness of breath and chest pain with some mild pleuritic component and cough and wheezing patient continues to smoke denied any sputum production. Patient denied any orthopnea paroxysmal nocturnal dyspnea. Chest x-ray did not show any significant abnormality EKG did not show any acute ST-T wave changes troponins were negative patient was eval by cardiology they believe her chest pressure is secondary to his COPD and cough. Patient had a cardia catheterization in July 2020 for which showed 50% mid RCA stenosis patent left circumflex stents with 40% in-stent restenosis 100% occluded ostial LAD occluded vein graft to obtuse marginal. Maximal medical therapy was recommended patient is on very high dose of Imdur and Ranexa along with beta- daniel and WILLIAM inhibitor. Patient is also on statin. Echocardiogram showed normal ejection fraction. REVIEW OF SYSTEMS: All other systems are negative except those mentioned in the HPI PHYSICAL EXAMINATION: GENERAL: The patient is alert and oriented x3, not in any acute distress. Well developed, well nourished. HEENT: Pupils are round and equally reacting to light. EOMI. No scleral icterus. No conjunctival pallor. Normocephalic, atraumatic. No pharyngeal erythema. No thyromegaly. CARDIOVASCULAR: S1 and S2 present. No murmurs, rubs, or gallops. PULMONARY: Chest is clear to auscultation, no wheezing or crackles. ABDOMEN: Soft, nontender, nondistended, normoactive bowel sounds. No palpable organomegaly. MUSCULOSKELETAL: No joint swelling or deformity. EXTREMITIES: No cyanosis, clubbing, or pedal edema. NEUROLOGICAL: Gross neurological examination did not reveal any focal deficits. SKIN: No rashes. Assessment and plan -COPD with mild acute exacerbation considering her diabetes mellitus patient will be started on inhaled steroids and breathing treatments. - Bronchitis for which we will order azithromycin - Chest pain appears to be the musculoskeletal or secondary to COPD cardiology evaluate the patient rule out acute coronary syndromes continue with medical therapy. Echocardiogram is being obtained - Hypertension - Hyperlipidemia - Continue nicotine use: Counseling was provided - Leukocytosis secondary to bronchitis. DVT prophylaxis: Lovenox possibility of discharge tomorrow Past Medical History Past Medical History: Asthma, Coronary Artery Disease (CAD), COPD, Diabetes Mellitus, GERD/Reflux, Hypertension, Myocardial Infarction ([place]), Osteoarthritis (OA) Additional Past Medical History / Comment(s): DDD, scoliosis, [place] x4 Last Myocardial Infarction Date:: 2011 History of Any Multi-Drug Resistant Organisms: None Reported Past Surgical History: Appendectomy, Bowel Resection, Coronary Bypass/CABG, Heart Catheterization With Stent Additional Past Surgical History / Comment(s): seven stents, here for gastroenteritis with abcess (removal 06/21/24), per pt 2 ABD procedures at the same area, Bowel resection with appendectomy 07/05/2024 Past Anesthesia/Blood Transfusion Reactions: No Reported Reaction Date of Last Stent Placement:: 11/2018 Past Psychological History: Anxiety, Bipolar Smoking Status: Current every day smoker Past Alcohol Use History: None Reported Past Drug Use History: Marijuana - Past Family History Mother Family Medical History: Cancer Additional Family Medical History / Comment(s): Ovarian cancer Father Family Medical History: Congestive Heart Failure (CHF) Fmily Family Medical History: No Reported History Medications and Allergies Home Medications Medication Instructions Recorded Confirmed Type Atorvastatin [Lipitor] 80 mg PO HS 07/08/20 03/06/25 History Ranolazine [Ranexa] 1,000 mg PO BID 11/13/21 03/06/25 History Albuterol Inhaler [Ventolin Hfa 2 puff INHALATION RT-Q6H PRN 03/27/23 03/06/25 History Inhaler] Clopidogrel [Plavix] 75 mg PO DAILY 03/27/23 03/06/25 History Nitroglycerin Sl Tabs [Nitrostat] 0.4 mg SL Q5M PRN 03/27/23 03/06/25 History Omeprazole 40 mg PO AC-BID 03/27/23 03/06/25 History Pregabalin [Lyrica] 150 mg PO TID 03/27/23 03/06/25 History amLODIPine [Norvasc] 10 mg PO DAILY 03/27/23 03/06/25 History ALPRAZolam [Xanax] 0.5 mg PO BID PRN 06/22/23 03/06/25 History Ipratropium-Albuterol Nebulize 3 ml INHALATION RT-Q6H PRN 03/16/24 03/06/25 History [Duoneb 0.5 mg-3 mg/3 ml Soln] Dapagliflozin Propanediol [Farxiga] 10 mg PO DAILY 14 Days #14 tab 08/05/24 03/06/25 Rx Escitalopram [Lexapro] 10 mg PO DAILY 08/19/24 03/06/25 History ARIPiprazole [Abilify] 5 mg PO DAILY 12/16/24 03/06/25 History Fluticasone/Umeclidin/Vilanter 1 puff INHALATION RT-DAILY 12/16/24 03/06/25 History [Trelegy Ellipta 200-62.5-25] Isosorbide Mononitrate [Imdur] 120 mg PO BID 12/16/24 03/06/25 History rOPINIRole HCL [Requip] 2 mg PO HS 12/23/24 03/06/25 History Ferrous Gluconate 324 mg PO Q2D 03/06/25 03/06/25 History Insulin Aspart [NovoLOG Flexpen] See Protocol SQ AC-TID 03/06/25 03/06/25 History Metoprolol Tartrate [Lopressor] 50 mg PO BID 03/06/25 03/06/25 History Ondansetron [Zofran] 4 mg PO Q8HR PRN 03/06/25 03/06/25 History Allergies Allergy/AdvReac Type Severity Reaction Status Date / Time Iodinated Contrast Media Allergy Anaphylaxis Verified 03/06/25 12:53 Physical Exam Vitals: Vital Signs Temp Pulse Resp BP Pulse Ox 03/06/25 12:54 66 18 113/75 96 03/06/25 10:39 74 19 124/92 97 03/06/25 08:00 81 17 123/77 95 03/06/25 06:21 85 18 118/66 99 03/06/25 05:31 89 18 133/91 100 03/06/25 02:54 72 18 112/74 94 L 03/05/25 22:27 82 18 135/85 96 03/05/25 19:26 86 20 121/98 95 03/05/25 18:30 85 18 118/23 95 03/05/25 17:46 98 20 128/78 95 03/05/25 17:22 98.7 F 95 20 131/89 96 Intake and Output 03/05/25 03/06/25 03/06/25 22:59 06:59 14:59 Other: Weight 90.718 kg Results CBC & Chem 7: 03/05/25 17:31 03/05/25 17:31 Labs: Abnormal Lab Results - Last 24 Hours (Table) 03/05/25 03/05/25 03/05/25 Range/Units 17:31 17:31 17:31 WBC 11.65 H (4.50-10.00) 10*3/uL Hgb 11.7 L (12.0-15.0) g/dL Hct 35.7 L (37.2-46.3) % MCV 78.1 L (80.0-97.0) fL MCH 25.6 L (27.0-32.0) pg Immature Gran # 0.08 H (0.00-0.04) 10*3/uL Sodium 136 L (137-145) mmol/L Carbon Dioxide 21 L (22-30) mmol/L Glucose 173 H (74-99) mg/dL Magnesium 1.4 L (1.6-2.3) mg/dL Triglycerides 253.00 H (0.00-149.00) mg/dL VLDL Cholesterol, Calc 50.60 H (5.00-40.00) mg/dL
[2025-03-06] MEDS: ALPRAZolam 0.5 MG TAB PO PRN (13:48)
[2025-03-06] MEDS: ESCITALOPRAM 10 MG TAB PO SCH (13:48)
[2025-03-06] MEDS: ENOXAPARIN 40 MG/0.4 ML SYRINGE SQ SCH (13:49)
[2025-03-06] MEDS: AZITHROMYCIN 500 MG TAB PO SCH (13:49)
[2025-03-06] MEDS: MAGNESIUM SULFATE-D5W PMX 1 GM in DEXTROSE/WATER 1 100ML.BAG IVPB ONE (13:55)
[2025-03-06] MEDS: IPRATROPIUM-ALBUTEROL 3 ML NEB INHALATION SCH (15:44)
[2025-03-06] MEDS: PREGABALIN 75 MG CAP PO SCH (17:33)
[2025-03-06] MEDS: PANTOPRAZOLE 40 MG TABLET PO SCH (17:33)
[2025-03-06 17:34] LABS: Glucose,Whole Blood 171 mg/dL (70-110)
[2025-03-06] MEDS: ACETAMINOPHEN TAB 325 MG TAB PO PRN (17:34)
[2025-03-06] MEDS: INSULIN LISPRO (HumaLOG) 100 UNIT/ML 10 mL VL SQ SCH (17:35)
[2025-03-06] MEDS ORDERED: BUDESONIDE 0.5 MG/2 ML NEBU INHALATION SCH (20:00)
[2025-03-06 20:08] LABS: Glucose,Whole Blood 147 mg/dL (70-110)
[2025-03-06] MEDS ORDERED: ATORVASTATIN 80 MG TAB PO SCH (21:00)
[2025-03-06] MEDS: ATORVASTATIN 80 MG TAB PO SCH (21:36)
[2025-03-06] MEDS ORDERED: DEXTROSE 50% SYRINGE 50 ML IVP PRN ×2 (23:01)
[2025-03-06] MEDS: guaiFENesin SYRUP 100MG/5ML 200 MG/10 ML CUP PO PRN (23:27)
[2025-03-07] MEDS: IPRATROPIUM-ALBUTEROL 3 ML NEB INHALATION PRN (03:02)
[2025-03-07 05:52] LABS: Glucose,Whole Blood 150 mg/dL (70-110)
[2025-03-07] MEDS: INSULIN LISPRO (HumaLOG) 100 UNIT/ML 10 mL VL SQ SCH (05:56)
[2025-03-07] MEDS: HYDROcodone/APAP 5-325MG 1 EACH TAB PO PRN (06:12)
[2025-03-07] MEDS: SYMBICORT 160-4.5 MCG INHALER INHALATION SCH (07:40)
[2025-03-07 08:41] LABS: HCT 38.6 % (37.2-46.3); HGB 11.6 g/dL (12.0-15.0); MCH 24.8 pg (27.0-32.0); MCHC 30.1 g/dL (32.0-37.0); MCV 82.7 FL (80.0-97.0); Mean Platelet Volume 10.2 FL (9.5-12.2); NRBC Per 100 WBC 0 X 10*3/uL (0.00-0.01); Platelet Count 254 X 10*3/uL (140-440); RBC 4.67 X 10*6/uL (4.10-5.20); RDW 19.9 % (11.5-14.5); WBC 6.27 X 10*3/uL (4.50-10.00)
[2025-03-07 09:15] LABS: Blood Urea Nitrogen 11.7 mg/dL (9.0-27.0); Calcium 8.8 mg/dL (8.7-10.3); Carbon Dioxide 22.3 mmol/L (21.6-31.8); Chloride 102 mmol/L (96-109); Glucose 148 mg/dL (70-110); Potassium 5.1 mmol/L (3.5-5.5); Sodium 139 mmol/L (135-145)
[2025-03-07] MEDS: ASPIRIN 81 MG PO SCH (09:51)
[2025-03-07] MEDS: DAPAGLIFLOZIN PROPANEDIOL 10 MG TABLET PO SCH (09:51)
[2025-03-07] MEDS: ARIPiprazole 5 MG TAB PO SCH (09:51)
[2025-03-07 12:17] LABS: Glucose,Whole Blood 85 mg/dL (70-110)
[2025-03-07] MEDS: methylPREDNISolone SOD SUCCI 125 MG/2 ML VIAL IV SCH (12:27)
--- NOTE | 2025-03-07 13:53 | P.PN ---
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 She has a past medical history of coronary artery disease with CABG in 2008 with most recent cardiac catheterization 07/29/2024 as below, hypertension, hyperlipidemia, COPD, tobacco use and dependence. We have been asked to evaluate the patient for chest pain. Patient states she came into the hospital due to bad chest pain. She states she took an Xanax and was taken a nap and the pain started while she was sleeping. She states she is having it on and off. She states she is also having shortness of breath. She is waking up with shortness of breath at nighttime. She complains of cough and wheezing. She denies any palpitations no lower extremity edema. Chest pain is worse with deep breathing. She also complains of back pain with deep breathing. She denies palpitations. She states she had a stroke many years ago. She denies seizure activity. No blood in her urine or stool. Blood pressure 123/77, heart rate 81, pulse ox 95% on 2 L nasal cannula. She states she has been taking all of her medications as directed. Patient is seen today in the emergency center waiting for a bed on the observation unit. She has been started on Nitropaste. Patient was seen by cardiology in November of this year following a hospitalization for partial small bowel obstruction. Patient was seen by cardiology for br adycardia that was asymptomatic but recommendations were to decrease the beta- daniel to 25 mg twice daily. -EKG: Sinus rhythm with no acute ST-T wave changes. -Chest x-ray: No acute process. -Laboratory studies: Troponin negative x 3. Triglycerides 253, cholesterol 176, LDL 82, HDL 42. Sodium 136, potassium 4.7, creatinine 0.75. Glucose 173. Magnesium 1.4. WBC 11.6, hemoglobin 9.7. -Home cardiac medications: Have not been confirmed at the time of this dictation. -Cardiac catheterization performed 07/29/2024 revealed 50% mid RCA stenosis, patent left circumflex stent with 40% in-stent restenosis and mild neointimal hyperplasia, 100% occluded ostial LAD, patent vein graft to the LAD, occluded vein graft to the OM. Recommendations at that time were for maximizing medical therapy, dual antiplatelet with Plavix and aspirin for 12 months and continue Lipitor, Ranexa, Imdur, metoprolol. -Echocardiogram limited study performed 07/30/2024 revealed EF 55 to 60%. 03/07/2025 Patient seen and examined. She states the chest pain that she had on the left side is now more in the epigastric area. She states she continues to have a cough and it hurts in her chest when she coughs. Blood pressure 98/64, heart rate 75, pulse ox 95% on room air. Repeat blood work reveals hemoglobin 11.6, BUN 11.7, creatinine 0.9, potassium 5.1. Echocardiogram has been obtained and report is pending. Physical examination: Gen: This is a 54-year-old female in no acute distress VS: reviewed HEENT: Head is atraumatic, normocephalic. Pupils equal, round. Sclerae is anicteric. NECK: Supple. No JVD. LUNGS: Bilateral rhonchi. No wheezing. No intercostal retractions. HEART: Regular rate and rhythm. Systolic murmur. + Chest wall tenderness ABDOMEN: Soft No tenderness. EXTREMITIES: No pedal edema. No calf tenderness. NEUROLOGICAL: Patient is awake, alert and oriented x3. Assessment: Atypical chest pain, probably noncardiac, probably due to COPD Elevated blood sugar possible diabetes History of coronary artery disease with previous CABG and on medical therapy. Most recent cardiac catheterization performed 07/29/2024 as above Hypertension Hyperlipidemia COPD exacerbation Tobacco use and dependence. Plan: Resume the following cardiac medications: Aspirin 81 mg daily, atorvastatin 80 mg at bedtime, Plavix 75 mg daily, Imdur 30 mg daily, lisinopril 10 mg daily, metoprolol tartrate 25 mg twice daily, Ranexa 1000 mg every 12 hours, Discontinue Nitropaste Obtain 2-D echocardiogram and Doppler study report Add consult for pulmonary medicine Smoking cessation. Dr. Ascencio discussed with the patient need for smoking cessation and she will be provided with the [place] quit line information at discharge. If echocardiogram is unremarkable, patient is cleared for discharge from cardiology will follow-up with her chief of anesthesiology in [place]. No further cardiac workup at this time Thank you kindly for this consultation. Nurse practitioner note has been reviewed, I agree with documented findings and plan of care. Patient was seen and examined. Objective - Vital Signs Vital signs: Vital Signs Temp 97.8 F 03/07/25 06:50 Pulse 75 03/07/25 06:50 Resp 18 03/07/25 06:50 BP 98/64 03/07/25 06:50 Pulse Ox 95 03/07/25 06:50 FiO2 Intake & Output 03/06/25 03/07/25 03/07/25 18:59 06:59 18:59 Weight 90.718 kg Other: # Voids 3 - Labs CBC & Chem 7: 03/07/25 05:42 03/07/25 05:42 Labs: Abnormal Lab Results - Last 24 Hours (Table) 03/05/25 03/06/25 03/06/25 Range/Units 17:31 17:32 20:06 POC Glucose (mg/dL) 171 H 147 H (70-110) mg/dL Triglycerides 253.00 H (0.00-149.00) mg/dL VLDL Cholesterol, Calc 50.60 H (5.00-40.00) mg/dL 03/07/25 Range/Units 05:50 POC Glucose (mg/dL) 150 H (70-110) mg/dL Triglycerides (0.00-149.00) mg/dL VLDL Cholesterol, Calc (5.00-40.00) mg/dL
--- NOTE | 2025-03-07 14:19 | P.CNPUL ---
History of Present Illness Consult date: 03/07/25 Reason for consult: dyspnea, chest pain Chief complaint: Chest pain, shortness of breath History of present illness: This is a pleasant 54-year-old female patient with known history of coronary artery disease with previous CABG and stent placements, diabetes mellitus, hypertension, anxiety, bipolar disorder, chronic obstructive pulmonary disease, chronic tobacco dependence, marijuana use who presented to the emergency room on 03/05/2025 with complaints of chest pain and shortness of breath. Acute coronary syndrome was ruled out. [place] to be atypical chest pain per cardiology. Concern regarding COPD exacerbation we are consulted today for the same. Chest x-ray reveals no acute pulmonary process. White count 6.27. Hemoglobin 11.6. Platelets 254. Sodium 139. Potassium 5.1. Bicarb 22. BUN 12. Creatinine 0.9. Glucose 148. Troponin negative x 3. She is seen today in consultation on the regular medical floor. She is currently sitting up in bed. Awake and alert in no acute distress. She is dyspneic with conversation. Dyspneic with minimal exertion. She is maintaining O2 saturations in the 90s on 2 L/min per nasal cannula. She has been afebrile. Hemodynamically stable. Review of Systems REVIEW OF SYSTEMS: CONSTITUTIONAL: Denies any recent significant weight loss or weight gain. EYES: Denies change in vision. EARS, NOSE, MOUTH, THROAT: Denies headaches, denies sore throat. CARDIOVASCULAR: Positive for chest pain, no palpitations or syncopal episodes. RESPIRATORY: Positive for shortness of breath, cough, congestion no hemoptysis. GASTROINTESTINAL: Denies change in appetite, denies abdominal pain GENITOURINARY: Denies hematuria, denies infections. MUSKULOSKELETAL: Denies pain, denies swelling. INTEGUMENTARY: Denies rash, denies eczema. NEUROLOGICAL: Denies recent memory loss, no recent seizure activity. PSYCHIATRIC: Denies anxiety, denies depression. HEMATOLOGIC/LYMPHATIC: Denies anemia, denies enlarged lymph nodes. Past Medical History Past Medical History: Asthma, Coronary Artery Disease (CAD), COPD, CVA/TIA, Diabetes Mellitus, GERD/Reflux, Hypertension, Myocardial Infarction (SC), Osteoarthritis (OA), Pneumonia Additional Past Medical History / Comment(s): DDD, scoliosis, [place] x4, restless leg syndrome Last Myocardial Infarction Date:: 2011 History of Any Multi-Drug Resistant Organisms: None Reported Past Surgical History: Appendectomy, Bowel Resection, Coronary Bypass/CABG, Heart Catheterization With Stent Additional Past Surgical History / Comment(s): seven stents, here for gastroenteritis with abcess (removal 06/21/24), per pt 2 ABD procedures at the same area, Bowel resection with appendectomy 07/05/2024 Past Anesthesia/Blood Transfusion Reactions: No Reported Reaction Date of Last Stent Placement:: 2022 Past Psychological History: Anxiety, Bipolar Smoking Status: Current every day smoker Past Alcohol Use History: None Reported Additional Past Alcohol Use History / Comment(s): smokes 1/2 ppd Past Drug Use History: Marijuana Additional Drug Use History / Comment(s): currently smokes 1 joint per day - Past Family History Mother Family Medical History: Cancer Additional Family Medical History / Comment(s): Ovarian cancer Father Family Medical History: Congestive Heart Failure (CHF) Sister(s) Family Medical History: COPD, Hypertension Fmily Family Medical History: No Reported History Medications and Allergies Home Medications Medication Instructions Recorded Confirmed Type Atorvastatin [Lipitor] 80 mg PO HS 07/08/20 03/06/25 History Ranolazine [Ranexa] 1,000 mg PO BID 11/13/21 03/06/25 History Albuterol Inhaler [Ventolin Hfa 2 puff INHALATION RT-Q6H PRN 03/27/23 03/06/25 History Inhaler] Clopidogrel [Plavix] 75 mg PO DAILY 03/27/23 03/06/25 History Nitroglycerin Sl Tabs [Nitrostat] 0.4 mg SL Q5M PRN 03/27/23 03/06/25 History Omeprazole 40 mg PO AC-BID 03/27/23 03/06/25 History Pregabalin [Lyrica] 150 mg PO TID 03/27/23 03/06/25 History amLODIPine [Norvasc] 10 mg PO DAILY 03/27/23 03/06/25 History ALPRAZolam [Xanax] 0.5 mg PO BID PRN 06/22/23 03/06/25 History Ipratropium-Albuterol Nebulize 3 ml INHALATION RT-Q6H PRN 03/16/24 03/06/25 History [Duoneb 0.5 mg-3 mg/3 ml Soln] Dapagliflozin Propanediol [Farxiga] 10 mg PO DAILY 14 Days #14 tab 08/05/24 03/06/25 Rx Escitalopram [Lexapro] 10 mg PO DAILY 08/19/24 03/06/25 History ARIPiprazole [Abilify] 5 mg PO DAILY 12/16/24 03/06/25 History Fluticasone/Umeclidin/Vilanter 1 puff INHALATION RT-DAILY 12/16/24 03/06/25 History [Trelegy Ellipta 200-62.5-25] Isosorbide Mononitrate [Imdur] 120 mg PO BID 12/16/24 03/06/25 History rOPINIRole HCL [Requip] 2 mg PO HS 12/23/24 03/06/25 History Ferrous Gluconate 324 mg PO Q2D 03/06/25 03/06/25 History Insulin Aspart [NovoLOG Flexpen] See Protocol SQ AC-TID 03/06/25 03/06/25 H istory Metoprolol Tartrate [Lopressor] 50 mg PO BID 03/06/25 03/06/25 History Ondansetron [Zofran] 4 mg PO Q8HR PRN 03/06/25 03/06/25 History Allergies Allergy/AdvReac Type Severity Reaction Status Date / Time Iodinated Contrast Media Allergy Anaphylaxis Verified 03/06/25 12:53 Physical Exam Vitals: Vital Signs Temp Pulse Pulse Resp BP BP Pulse Ox 03/07/25 11:23 68 03/07/25 11:05 68 03/07/25 06:50 97.8 F 75 18 98/64 95 03/07/25 06:08 95/67 03/07/25 03:17 62 03/07/25 03:03 60 03/07/25 01:35 97.8 F 57 L 18 102/72 98 03/06/25 22:44 98/67 03/06/25 21:26 65 93/60 95 03/06/25 20:20 95 03/06/25 18:38 64 03/06/25 18:29 68 03/06/25 17:43 98.7 F 64 19 101/57 96 03/06/25 16:00 72 18 110/48 99 03/06/25 15:44 78 Intake and Output 03/06/25 03/07/2525 22:59 06:59 14:59 Intake Total 598 Balance 598 Intake: Oral 598 Other: # Voids 2 3 Weight 90.718 kg GENERAL EXAM: Alert, pleasant 54-year-old female, resting in bed, on 2 L nasal cannula, comfortable in no apparent distress. HEAD: Normocephalic. EYES: Normal reaction of pupils, equal size. NOSE: Clear with pink turbinates. THROAT: No erythema or exudates. NECK: No masses, no JVD. CHEST: No chest wall deformity. Substernal chest pain upon palpation LUNGS: Equal air entry with bilateral end expiratory wheeze. CVS: S1 and S2 normal with no audible murmur, regular rhythm. ABDOMEN: No hepatosplenomegaly, normal bowel sounds, no guarding or rigidity. SPINE: No scoliosis or deformity SKIN: No rashes CENTRAL NERVOUS SYSTEM: No focal deficits, tone is normal in all 4 extremities. EXTREMITIES: There is no peripheral edema. No clubbing, no cyanosis. Peripheral pulses are intact. Results - Laboratory Findings CBC and BMP: 03/07/25 05:42 03/07/25 05:42 PT/INR, D-dimer PT 10.1 sec (10.0-12.5) 03/05/25 17:31 INR 0.9 (<1.2) 03/05/25 17:31 Abnormal lab findings: Abnormal Labs 03/05/25 03/05/25 03/05/25 17:31 17:31 17:31 WBC 11.65 H Hgb 11.7 L Hct 35.7 L MCV 78.1 L MCH 25.6 L MCHC RDW Immature Gran # 0.08 H Sodium 136 L Carbon Dioxide 21 L Anion Gap Glucose 173 H POC Glucose (mg/dL) Hemoglobin A1c Magnesium 1.4 L Triglycerides 253.00 H VLDL Cholesterol, Calc 50.60 H 03/06/25 03/06/25 03/07/25 17:32 20:06 05:42 WBC Hgb 11.6 L Hct MCV MCH 24.8 L MCHC 30.1 L RDW 19.9 H Immature Gran # Sodium Carbon Dioxide Anion Gap Glucose POC Glucose (mg/dL) 171 H 147 H Hemoglobin A1c Magnesium Triglycerides VLDL Cholesterol, Calc 03/07/25 03/07/25 03/07/25 05:42 05:42 05:50 WBC Hgb Hct MCV MCH MCHC RDW Immature Gran # Sodium Carbon Dioxide Anion Gap 14.70 H Glucose 148 H POC Glucose (mg/dL) 150 H Hemoglobin A1c 7.1 H Magnesium Triglycerides VLDL Cholesterol, Calc - Diagnostic Findings Chest x-ray: image reviewed Assessment and Plan Assessment: Atypical chest pain, chest wall pain. Acute coronary syndrome ruled out Acute exacerbation of chronic obstructive pulmonary disease Acute hypoxic respiratory failure secondary to above Chronic and ongoing tobacco dependence Coronary artery disease with previous stent placements, subsequent CABG History of anxiety Bipolar disorder History of marijuana use Diabetes mellitus Hypertension Plan: The patient was seen and evaluated Chest x-ray, labs and medications reviewed Chest pain is reproducible Continue DuoNeb inhalations Continue Symbicort Add Solu Medrol Lovenox for DVT prophylaxis Protonix for GI prophylaxis Resume her home medications Titrate down/off the FiO2 as tolerated Increase her activity as tolerated We will continue to follow and make further recommendations based on her clinical status I have personally seen and examined the patient, performed the documentation and the assessment and plan as written. Number of minutes spent on the visit: 20 Dictation was produced using [employer] dictation software. Please excuse any grammatical, word or spelling errors. Time with Patient: Greater than 30
[2025-03-07 16:32] LABS: Glucose,Whole Blood 186 mg/dL (70-110)
[2025-03-07 17:53] LABS: Glucose,Whole Blood 270 mg/dL (70-110)
--- NOTE | 2025-03-07 18:18 | CA ---
Transthoracic Echo Report Name: Griselda Mcadams Age: 54 Gender: F : 1970 Exam Date: 03/07/2025 07:26 Exam Location: [place] [facility] Ht (in): 65 Wt (lb): 200 Ordering Physician: Hiro Velez MD Attending/Referring Phys: Palliative Care Specialist Angie Stone RDCS Procedure CPT: Indications: Chest Pain Cardiac Hx: Technical Quality: Fair Contrast 1: Total Dose (mL): Contrast 2: Total Dose (mL): MEASUREMENTS (Male / Female) Normal Values 2D ECHO LV Diastolic Diameter PLAX 4.9 cm 4.2 - 5.9 / 3.9 - 5.3 cm LV Systolic Diameter PLAX 3.7 cm IVS Diastolic Thickness 0.9 cm 0.6 - 1.0 / 0.6 - 0.9 cm LVPW Diastolic Thickness 0.9 cm 0.6 - 1.0 / 0.6 - 0.9 cm LV Relative Wall Thickness 0.4 RV Internal Dim ED PLAX 3.8 cm LVOT Diameter 1.4 cm LA Systolic Diameter LX 3.6 cm 3.0 - 4.0 / 2.7 - 3.8 cm LV Diastolic Volume MOD 4C 91.9 cm??? LV Systolic Volume MOD 4C 40.3 cm??? LV Ejection Fraction MOD 4C 56.1 % LV Cardiac Index MOD 4C 1393.2 cm???/min???m??? LV Diastolic Length 4C 8.9 cm LV Systolic Length 4C 7.4 cm LV Diastolic Volume MOD 2C 86.5 cm??? LV Systolic Volume MOD 2C 41.6 cm??? LV Ejection Fraction MOD 2C 51.9 % LV Cardiac Index MOD 2C 1213.5 cm???/min???m??? LV Diastolic Length 2C 8.7 cm LV Systolic Length 2C 7.1 cm LA Volume 54.4 cm??? 18 - 58 / 22 - 52 cm??? LA Volume Index 26.2 cm???/m??? 16 - 28 cm???/m??? DOPPLER MV Area PHT 2.4 cm??? Mitral E Point Velocity 91.8 cm/s Mitral A Point Velocity 50.3 cm/s Mitral E to A Ratio 1.8 MV Deceleration Time 321.4 ms TR Peak Velocity 220.3 cm/s TR Peak Gradient 19.4 mmHg FINDINGS Left Ventricle Left ventricular ejection fraction is estimated at 55 to 60%. Normal left ventricular systolic function with no obvious regional wall motion abnormalities. Left ventricular cavity size normal. Left ventricular wall thickness normal. Right Ventricle Mild right ventricular dilatation. Right ventricular systolic pressure within normal limits. Right Atrium Normal right atrial size. Left Atrium Mildly increased left atrial volume. Mitral Valve Structurally normal mitral valve. No mitral stenosis. Mild mitral regurgitation. Aortic Valve Aortic valve not well visualized. No aortic stenosis. Mild aortic regurgitation. Tricuspid Valve Structurally normal tricuspid valve. No tricuspid stenosis. Mild tricuspid regurgitation. Pulmonic Valve Pulmonic valve not well visualized.trace pulmonic regurgitation. Pericardium No pericardial effusion. Aorta Aortic annulus normal. CONCLUSIONS Technically difficult study. Normal left ventricular size and systolic function 2. Mild mitral and tricuspid regurgitation 3. Mild aortic regurgitation Previewed by: Dr. Iqra Ascencio MD (Electronically Signed) Final Date: 07 March 2025 18:17
--- NOTE | 2025-03-07 19:01 | P.PN ---
Subjective Progress Note Date: 03/07/25 54-year-old female with history of coronary artery disease CABG in the past came in with complaints of shortness of breath and chest pain with some mild pleuritic component and cough and wheezing patient continues to smoke denied any sputum production. Patient denied any orthopnea paroxysmal nocturnal dyspnea. Chest x-ray did not show any significant abnormality EKG did not show any acute ST-T wave changes troponins were negative patient was eval by cardiology they believe her chest pressure is secondary to his COPD and cough. Patient had a cardia catheterization in July 2020 for which showed 50% mid RCA stenosis patent left circumflex stents with 40% in-stent restenosis 100% occluded ostial LAD occluded vein graft to obtuse marginal. Maximal medical therapy was recommended patient is on very high dose of Imdur and Ranexa along with beta- daniel and WILLIAM inhibitor. Patient is also on statin. Echocardiogram showed normal ejection fraction. 03/07/2025 Patient is evaluated today in follow up on the medical floor. Continues to report shortness of breath and does have scattered wheezing. Continues on oral azithromycin and pulmonology has started IV solumedrol. Procalcitonin level <0. 20. Echocardiogram reveals EF 55-60%, mild MR and TR, mild aortic regurgitation. Review of Systems Constitutional: Denied any fatigue denied any fever. Cardio vascular: denied any chest pain, palpitations Gastrointestinal: denied any nausea, vomiting, diarrhea Pulmonary: Reports shortness of breath and cough Neurologic denied any new focal deficits All inpatient medications were reviewed and appropriate changes in these medications as dictated in the interval history and assessment and plan. Assessment and plan - COPD with mild acute exacerbation considering her diabetes mellitus patient will be started on inhaled steroids and breathing treatments. Patient started on systemic steroids - Bronchitis for which we will order azithromycin - Chest pain appears to be the musculoskeletal or secondary to COPD cardiology evaluate the patient rule out acute coronary syndromes continue with medical therapy. Echocardiogram is being obtained - Hypertension - Hyperlipidemia - History of CAD/previous cABG - Continue nicotine use: Counseling was provided pt states she is down to half pack per day from 2 packs per day - Leukocytosis secondary to bronchitis. DVT prophylaxis: Lovenox Cleared from a cardiac standpoint. Pulmonology following. Continue treatment for COPD exacerbation as mentioned above. Possible D/C home next 24 hours. The impression and plan of care has been dictated by Violetta Maya, Nurse Practitioner as directed. Dr. iLto MD I have performed a history and physical examination and medical decision making of this patient, discussed the same with the dictator, and agree with the dictators assessment and plan as written, documented as a scribe. Based on total visit time, I have performed more than 50% of this visit. Objective - Vital Signs Vital signs: Vital Signs Temp 97.8 F 03/07/25 06:50 Pulse 75 03/07/25 06:50 Resp 18 03/07/25 06:50 BP 98/64 03/07/25 06:50 Pulse Ox 95 03/07/25 06:50 FiO2 Intake & Output 03/06/25 03/07/25 03/07/25 18:59 06:59 18:59 Intake Total 598 Balance 598 Weight 90.718 kg Intake: Oral 598 Other: # Voids 3 - Labs CBC & Chem 7: 03/07/25 05:42 03/07/25 05:42 Labs: Abnormal Lab Results - Last 24 Hours (Table) 03/06/25 03/06/25 03/07/25 Range/Units 17:32 20:06 05:42 Hgb 11.6 L (12.0-15.0) g/dL MCH 24.8 L (27.0-32.0) pg MCHC 30.1 L (32.0-37.0) g/dL RDW 19.9 H (11.5-14.5) % Anion Gap (4.00-12.00) mmol/L Glucose (70-110) mg/dL POC Glucose (mg/dL) 171 H 147 H (70-110) mg/dL 03/07/25 03/07/25 Range/Units 05:42 05:50 Hgb (12.0-15.0) g/dL MCH (27.0-32.0) pg MCHC (32.0-37.0) g/dL RDW (11.5-14.5) % Anion Gap 14.70 H (4.00-12.00) mmol/L Glucose 148 H (70-110) mg/dL POC Glucose (mg/dL) 150 H (70-110) mg/dL Assessment and Plan Time with Patient: Less than 30
[2025-03-07 20:41] LABS: Glucose,Whole Blood 305 mg/dL (70-110)
[2025-03-07] MEDS: ONDANSETRON ODT 4 MG TAB PO PRN (21:53)
[2025-03-08 06:24] LABS: Glucose,Whole Blood 192 mg/dL (70-110)
[2025-03-08 07:27] LABS: African American GFR (CKD) 80 (>60 ml/min/1.73 sqM); Anion Gap 7 mmol/L; Blood Urea Nitrogen 15 mg/dL (7-17); Calcium 9.6 mg/dL (8.4-10.2); Carbon Dioxide 27 mmol/L (22-30); Chloride 102 mmol/L (98-107); Glucose 201 mg/dL (74-99); Non-African American GFR(CKD) 69 (>60 ml/min/1.73 sqM); Potassium 5.3 mmol/L (3.5-5.1); Sodium 136 mmol/L (137-145)
[2025-03-08] MEDS: SODIUM ZIRCONIUM CYCLOSILICATE 10 GM PACKET PO ONE ×2 (11:48→19:52)
[2025-03-08 11:58] LABS: Glucose,Whole Blood 371 mg/dL (70-110)
--- NOTE | 2025-03-08 12:47 | PN ---
PROGRESS NOTE SUBJECTIVE: 54-year-old lady with history of coronary artery disease, status post CABG, hypertension, dyslipidemia, who is admitted to hospital with chest pain and ruled out for myocardial infarction. This morning, she is feeling well and is free of cardiac symptoms. Denies chest pain, difficulty in breathing, palpitations, dizziness or syncope. An echo on this admission revealed normal LV function with mild mitral and aortic regurgitation. OBJECTIVE: GENERAL: On exam, comfortable at rest. VITAL SIGNS: Blood pressure is little on the lower side at 94/60, respiratory rate is 18. CHEST: Reveals good air entry bilaterally. HEART: Reveals first and second heart sounds. No gallop. EXTREMITIES: Examination of extremities did not reveal any edema. Peripheral pulses are felt. ASSESSMENT: 1. Coronary artery disease, status post coronary artery bypass graft. 2. Atypical chest pain. 3. Hypertension. 4. Dyslipidemia. 5. Chronic obstructive pulmonary disease exacerbation. PLAN: I reviewed echo results with the patient. We will continue her on her current medications. MMODL / IJN: [id number] /
--- NOTE | 2025-03-08 13:03 | P.PN ---
Subjective Progress Note Date: 03/08/25 This is a pleasant 54-year-old female patient with known history of coronary artery disease with previous CABG and stent placements, diabetes mellitus, hypertension, anxiety, bipolar disorder, chronic obstructive pulmonary disease, chronic tobacco dependence, marijuana use who presented to the emergency room on 03/05/2025 with complaints of chest pain and shortness of breath. Acute coronary syndrome was ruled out. [place] to be atypical chest pain per cardiology. Concern regarding COPD exacerbation we are consulted today for the same. Chest x-ray reveals no acute pulmonary process. White count 6.27. Hemoglobin 11.6. Platelets 254. Sodium 139. Potassium 5.1. Bicarb 22. BUN 12. Creatinine 0. 9. Glucose 148. Troponin negative x 3. She is seen today in consultation on the regular medical floor. She is currently sitting up in bed. Awake and alert in no acute distress. She is dyspneic with conversation. Dyspneic with minimal exertion. She is maintaining O2 saturations in the 90s on 2 L/min per nasal cannula. She has been afebrile. Hemodynamically stable. The patient is seen today March 08, 2025 in follow-up on the regular medical floor. She is currently sitting up in bed. Awake and alert in no acute distress. Feeling better today compared to yesterday. Still requiring oxygen at 2 L/min per nasal cannula. Still with some wheezing. Sodium 136. Potassium 4.9. Bicarb 27. BUN 15. Creatinine 0.93. Glucose 201. She remains on DuoNeb inhalations, Symbicort, Solu-Medrol. Lovenox for DVT prophylaxis. Robitussin for her cough. Objective - Vital Signs Vital signs: Vital Signs Temp 98.3 F 03/08/25 07:35 Pulse 93 03/08/25 12:29 Resp 18 03/08/25 07:35 BP 94/60 03/08/25 08:32 Pulse Ox 93 L 03/08/25 07:35 FiO2 Intake & Output 03/07/25 03/08/25 03/08/25 18:59 06:59 18:59 Intake Total 1074 712 Balance 1074 712 Intake: Oral 1074 712 Other: # Voids 10 1 2 # Bowel Movements 3 - Exam GENERAL EXAM: Alert, 54-year-old female, on 2 L nasal cannula, comfortable in no apparent distress. HEAD: Normocephalic. EYES: Normal reaction of pupils, equal size. NOSE: Clear with pink turbinates. THROAT: No erythema or exudates. NECK: No masses, no JVD. CHEST: No chest wall deformity. LUNGS: Equal air entry with bilateral end expiratory wheeze, diminished. CVS: S1 and S2 normal with no audible murmur, regular rhythm. ABDOMEN: No hepatosplenomegaly, normal bowel sounds, no guarding or rigidity. SPINE: No scoliosis or deformity SKIN: No rashes CENTRAL NERVOUS SYSTEM: No focal deficits, tone is normal in all 4 extremities. EXTREMITIES: There is no peripheral edema. No clubbing, no cyanosis. Peripheral pulses are intact. - Labs CBC & Chem 7: 03/07/25 05:42 03/08/25 11:39 Labs: Abnormal Lab Results - Last 24 Hours (Table) 03/07/25 03/07/25 03/07/25 Range/Units 16:31 17:52 20:40 Sodium (137-145) mmol/L Potassium (3.5-5.1) mmol/L Glucose (74-99) mg/dL POC Glucose (mg/dL) 186 H 270 H 305 H (70-110) mg/dL 03/08/25 03/08/25 03/08/25 Range/Units 06:04 06:23 11:57 Sodium 136 L (137-145) mmol/L Potassium 5.3 H (3.5-5.1) mmol/L Glucose 201 H (74-99) mg/dL POC Glucose (mg/dL) 192 H 371 H (70-110) mg/dL Assessment and Plan Assessment: Atypical chest pain, chest wall pain. Acute coronary syndrome ruled out Acute exacerbation of chronic obstructive pulmonary disease Acute hypoxic respiratory failure secondary to above Chronic and ongoing tobacco dependence Coronary artery disease with previous stent placements, subsequent CABG History of anxiety Bipolar disorder History of marijuana use Diabetes mellitus Hypertension Plan: The patient was seen and evaluated Labs and medications reviewed Continue DuoNeb inhalations Continue Symbicort Continue Solu Medrol Lovenox for DVT prophylaxis Protonix for GI prophylaxis Titrate down/off the FiO2 as tolerated Increase her activity as tolerated We will continue to follow I have personally seen and examined the patient, performed the documentation and the assessment and plan as written. Number of minutes spent on the visit: 10 Dictation was produced using [employer] dictation software. Please excuse any grammatical, word or spelling errors.
--- NOTE | 2025-03-08 13:49 | P.PN ---
Subjective Progress Note Date: 03/08/25 54-year-old female with history of coronary artery disease CABG in the past came in with complaints of shortness of breath and chest pain with some mild pleuritic component and cough and wheezing patient continues to smoke denied any sputum production. Patient denied any orthopnea paroxysmal nocturnal dyspnea. Chest x-ray did not show any significant abnormality EKG did not show any acute ST-T wave changes troponins were negative patient was eval by cardiology they believe her chest pressure is secondary to his COPD and cough. Patient had a cardia catheterization in July 2020 for which showed 50% mid RCA stenosis patent left circumflex stents with 40% in-stent restenosis 100% occluded ostial LAD occluded vein graft to obtuse marginal. Maximal medical therapy was recommended patient is on very high dose of Imdur and Ranexa along with beta- daniel and WILLIAM inhibitor. Patient is also on statin. Echocardiogram showed normal ejection fraction. 03/07/2025 Patient is evaluated today in follow up on the medical floor. Continues to report shortness of breath and does have scattered wheezing. Continues on oral azithromycin and pulmonology has started IV solumedrol. Procalcitonin level <0. 20. Echocardiogram reveals EF 55-60%, mild MR and TR, mild aortic regurgitation. 03/08/2025 Patient evaluated today on the medical floor. Has been continued on high dose IV solumedrol. Wants to go home today waiting for pulmonology to round. Echocardiogram comes back revealing an EF 55-60% mild MR and TR, mild aortic regurgitation. Review of Systems Constitutional: Denied any fatigue denied any fever. Cardio vascular: denied any chest pain, palpitations Gastrointestinal: denied any nausea, vomiting, diarrhea Pulmonary: Reports shortness of breath and cough Neurologic denied any new focal deficits All inpatient medications were reviewed and appropriate changes in these medications as dictated in the interval history and assessment and plan. PHYSICAL EXAMINATION: GENERAL: The patient is alert and oriented x3, not in any acute distress. Well developed, well nourished. HEENT: Pupils are round and equally reacting to light. EOMI. No scleral icterus. No conjunctival pallor. Normocephalic, atraumatic. No pharyngeal erythema. No thyromegaly. CARDIOVASCULAR: S1 and S2 present. No murmurs, rubs, or gallops. PULMONARY: Faint scattered posterior wheezing ABDOMEN: Soft, nontender, nondistended, normoactive bowel sounds. No palpable organomegaly. MUSCULOSKELETAL: No joint swelling or deformity. EXTREMITIES: No cyanosis, clubbing, or pedal edema. NEUROLOGICAL: Gross neurological examination did not reveal any focal deficits. SKIN: No rashes. Assessment and plan - COPD with mild acute exacerbation continue on inhaled steroids and breathing treatments. Patient started on systemic steroids - Bronchitis for which we will order azithromycin - Diabetes mellitus type 2 with steroid induced hyperglycemia - Chest pain appears to be the musculoskeletal or secondary to COPD cardiology evaluate the patient rule out acute coronary syndromes continue with medical therapy. - Hypertension - Hyperlipidemia - History of CAD/previous cABG - Continue nicotine use: Counseling was provided pt states she is down to half pack per day from 2 packs per day - Leukocytosis secondary to bronchitis. DVT prophylaxis: Lovenox Cleared from a cardiac standpoint. Pulmonology following. Continue treatment for COPD exacerbation as mentioned above. Patient wanting to DC home today. The impression and plan of care has been dictated by Violetta Maya, Nurse Practitioner as directed. Dr. Lito MD I have performed a history and physical examination and medical decision making of this patient, discussed the same with the dictator, and agree with the dictators assessment and plan as written, documented as a scribe. Based on total visit time, I have performed more than 50% of this visit. Objective - Vital Signs Vital signs: Vital Signs Temp 98.3 F 03/08/25 07:35 Pulse 93 03/08/25 12:29 Resp 18 03/08/25 07:35 BP 94/60 03/08/25 08:32 Pulse Ox 93 L 03/08/25 07:35 FiO2 Intake & Output 03/07/25 03/08/25 03/08/25 18:59 06:59 18:59 Intake Total 1074 712 Balance 1074 712 Intake: Oral 1074 712 Other: # Voids 10 1 2 # Bowel Movements 3 - Labs CBC & Chem 7: 03/07/25 05:42 03/08/25 11:39 Labs: Abnormal Lab Results - Last 24 Hours (Table) 03/07/25 03/07/25 03/07/25 Range/Units 16:31 17:52 20:40 Sodium (137-145) mmol/L Potassium (3.5-5.1) mmol/L Glucose (74-99) mg/dL POC Glucose (mg/dL) 186 H 270 H 305 H (70-110) mg/dL 03/08/25 03/08/25 03/08/25 Range/Units 06:04 06:23 11:57 Sodium 136 L (137-145) mmol/L Potassium 5.3 H (3.5-5.1) mmol/L Glucose 201 H (74-99) mg/dL POC Glucose (mg/dL) 192 H 371 H (70-110) mg/dL Assessment and Plan Time with Patient: Less than 30
[2025-03-08 16:28] LABS: Glucose,Whole Blood 246 mg/dL (70-110)
[2025-03-08 20:39] LABS: Glucose,Whole Blood 313 mg/dL (70-110)
[2025-03-08] MEDS: INSULIN GLARGINE (LANTUS) 100 UNIT/ML SYR SQ SCH (21:15)
[2025-03-09 06:20] LABS: Glucose,Whole Blood 210 mg/dL (70-110)
[2025-03-09 07:28] VITALS: BP 116/70; RESP 18; TEMP 98
[2025-03-09] MEDS: lisinopriL 5 MG TAB PO SCH (08:38)
[2025-03-09 09:19] VITALS: PULSE 84
[2025-03-09 09:37] LABS: Blood Urea Nitrogen 19.8 mg/dL (9.0-27.0); Carbon Dioxide 25.5 mmol/L (21.6-31.8); Chloride 102 mmol/L (96-109); Glucose 188 mg/dL (70-110); Potassium 4.8 mmol/L (3.5-5.5); Sodium 142 mmol/L (135-145)
[2025-03-09 09:38] LABS: Calcium 9.2 mg/dL (8.7-10.3)
--- NOTE | 2025-03-09 12:40 | P.PN ---
Subjective Progress Note Date: 03/09/25 This is a pleasant 54-year-old female patient with known history of coronary artery disease with previous CABG and stent placements, diabetes mellitus, hypertension, anxiety, bipolar disorder, chronic obstructive pulmonary disease, chronic tobacco dependence, marijuana use who presented to the emergency room on 03/05/2025 with complaints of chest pain and shortness of breath. Acute coronary syndrome was ruled out. [place] to be atypical chest pain per cardiology. Concern regarding COPD exacerbation we are consulted today for the same. Chest x-ray reveals no acute pulmonary process. White count 6.27. Hemoglobin 11.6. Platelets 254. Sodium 139. Potassium 5.1. Bicarb 22. BUN 12. Creatinine 0. 9. Glucose 148. Troponin negative x 3. She is seen today in consultation on the regular medical floor. She is currently sitting up in bed. Awake and alert in no acute distress. She is dyspneic with conversation. Dyspneic with minimal exertion. She is maintaining O2 saturations in the 90s on 2 L/min per nasal cannula. She has been afebrile. Hemodynamically stable. The patient is seen today March 08, 2025 in follow-up on the regular medical floor. She is currently sitting up in bed. Awake and alert in no acute distress. Feeling better today compared to yesterday. Still requiring oxygen at 2 L/min per nasal cannula. Still with some wheezing. Sodium 136. Potassium 4.9. Bicarb 27. BUN 15. Creatinine 0.93. Glucose 201. She remains on DuoNeb inhalations, Symbicort, Solu-Medrol. Lovenox for DVT prophylaxis. Robitussin for her cough. The patient is seen today March 09, 2025 in follow-up on the regular medical floor. She is sitting up in bed. Awake and alert in no acute distress. Feeling back to her baseline. No worsening shortness of breath, cough or congestion. Maintaining good O2 saturations in the mid 90s on room air oxygen. She is afebrile. Hemodynamically stable. Sodium 142. Potassium 4.8. Bicarb 26. BUN 20. Creatinine 0.9. Glucose 188. She remains on DuoNeb inhalations, Solu-Medrol, Symbicort. Lovenox for DVT prophylaxis. Objective - Vital Signs Vital signs: Vital Signs Temp 98 F 03/09/25 07:07 Pulse 78 03/09/25 08:27 Resp 18 03/09/25 07:07 BP 116/70 03/09/25 07:07 Pulse Ox 96 03/09/25 07:07 FiO2 Intake & Output 03/08/25 03/09/25 03/09/25 18:59 06:59 18:59 Intake Total 1212 Balance 1212 Intake: Oral 1212 Other: # Voids 2 1 - Exam GENERAL EXAM: Alert, 54-year-old female, sitting up in bed, on room air oxygen, comfortable in no apparent distress. HEAD: Normocephalic. EYES: Normal reaction of pupils, equal size. NOSE: Clear with pink turbinates. THROAT: No erythema or exudates. NECK: No masses, no JVD. CHEST: No chest wall deformity. LUNGS: Equal air entry with bilateral end expiratory wheeze, diminished. CVS: S1 and S2 normal with no audible murmur, regular rhythm. ABDOMEN: No hepatosplenomegaly, normal bowel sounds, no guarding or rigidity. SPINE: No scoliosis or deformity SKIN: No rashes CENTRAL NERVOUS SYSTEM: No focal deficits, tone is normal in all 4 extremities. EXTREMITIES: There is no peripheral edema. No clubbing, no cyanosis. Peripheral pulses are intact. - Labs CBC & Chem 7: 03/07/25 05:42 03/09/25 04:13 Labs: Abnormal Lab Results - Last 24 Hours (Table) 03/08/25 03/08/25 03/09/25 Range/Units 16:26 20:38 04:13 Anion Gap 14.50 H (4.00-12.00) mmol/L BUN/Creatinine Ratio 22.00 H (12.00-20.00) Ratio Glucose 188 H (70-110) mg/dL POC Glucose (mg/dL) 246 H 313 H (70-110) mg/dL 03/09/25 Range/Units 06:19 Anion Gap (4.00-12.00) mmol/L BUN/Creatinine Ratio (12.00-20.00) Ratio Glucose (70-110) mg/dL POC Glucose (mg/dL) 210 H (70-110) mg/dL Assessment and Plan Assessment: Atypical chest pain, chest wall pain. Acute coronary syndrome ruled out Acute exacerbation of chronic obstructive pulmonary disease Acute hypoxic respiratory failure secondary to above Chronic and ongoing tobacco dependence Coronary artery disease with previous stent placements, subsequent CABG History of anxiety Bipolar disorder History of marijuana use Diabetes mellitus Hypertension Plan: The patient was seen and evaluated Labs and medications reviewed Stable and on room air oxygen Cleared for discharge Continue her home pulmonary medications Completed prednisone taper Follow-up in our office in 1 week I have personally seen and examined the patient, performed the documentation and the assessment and plan as written. Number of minutes spent on the visit: 10 Dictation was produced using [employer] dictation software. Please excuse any grammatical, word or spelling errors.
--- NOTE | 2025-03-09 12:45 | P.PN ---
Subjective Progress Note Date: 03/09/25 Consult reason: chest pain History of present illness: This is a 54-year-old female patient follows with a public health social worker in [place]. She has a past medical history of coronary artery disease with CABG in 2008 with most recent cardiac catheterization 07/29/2024 as below, hypertension, hyperlipidemia, COPD, tobacco use and dependence. We have been asked to evaluate the patient for chest pain. Patient states she came into the hospital due to bad chest pain. She states she took an Xanax and was taken a nap and the pain started while she was sleeping. She states she is having it on and off. She states she is also having shortness of breath. She is waking up with shortness of breath at nighttime. She complains of cough and wheezing. She denies any palpitations no lower extremity edema. Chest pain is worse with deep breathing. She also complains of back pain with deep breathing. She denies palpitations. She states she had a stroke many years ago. She denies seizure activity. No blood in her urine or stool. Blood pressure 123/77, heart rate 81, pulse ox 95% on 2 L nasal cannula. She states she has been taking all of her medications as directed. Patient is seen today in the emergency center waiting for a bed on the observation unit. She has been started on Nitropaste. Patient was seen by cardiology in November of this year following a hospitalization for partial small bowel obstruction. Patient was seen by cardiology for br adycardia that was asymptomatic but recommendations were to decrease the beta- daniel to 25 mg twice daily. -EKG: Sinus rhythm with no acute ST-T wave changes. -Chest x-ray: No acute process. -Laboratory studies: Troponin negative x 3. Triglycerides 253, cholesterol 176, LDL 82, HDL 42. Sodium 136, potassium 4.7, creatinine 0.75. Glucose 173. Magnesium 1.4. WBC 11.6, hemoglobin 9.7. -Home cardiac medications: Have not been confirmed at the time of this dictation. -Cardiac catheterization performed 07/29/2024 revealed 50% mid RCA stenosis, patent left circumflex stent with 40% in-stent restenosis and mild neointimal hyperplasia, 100% occluded ostial LAD, patent vein graft to the LAD, occluded vein graft to the OM. Recommendations at that time were for maximizing medical therapy, dual antiplatelet with Plavix and aspirin for 12 months and continue Lipitor, Ranexa, Imdur, metoprolol. -Echocardiogram limited study performed 07/30/2024 revealed EF 55 to 60%. 03/07/2025 Patient seen and examined. She states the chest pain that she had on the left side is now more in the epigastric area. She states she continues to have a cough and it hurts in her chest when she coughs. Blood pressure 98/64, heart rate 75, pulse ox 95% on room air. Repeat blood work reveals hemoglobin 11.6, BUN 11.7, creatinine 0.9, potassium 5.1. Echocardiogram has been obtained and report is pending. 03/09/2025 Patient denies chest pain or chest pressure. Blood pressure 116/70, heart rate 75, pulse ox 96% on 2 L nasal cannula. Echocardiogram revealed difficult study, normal left ventricular size and s ystolic function. Mild mitral and tricuspid regurgitation. Mild aortic regurgitation. Physical examination: Gen: This is a 54-year-old female in no acute distress VS: reviewed HEENT: Head is atraumatic, normocephalic. Pupils equal, round. Sclerae is anicteric. NECK: Supple. No JVD. LUNGS: Bilateral rhonchi. No wheezing. No intercostal retractions. HEART: Regular rate and rhythm. Systolic murmur. + Chest wall tenderness ABDOMEN: Soft No tenderness. EXTREMITIES: No pedal edema. No calf tenderness. NEUROLOGICAL: Patient is awake, alert and oriented x3. Assessment: Atypical chest pain, probably noncardiac, probably due to COPD Elevated blood sugar possible diabetes History of coronary artery disease with previous CABG and on medical therapy. Most recent cardiac catheterization performed 07/29/2024 as above Hypertension Hyperlipidemia COPD exacerbation Tobacco use and dependence. Plan: Resume the following cardiac medications: Aspirin 81 mg daily, atorvastatin 80 mg at bedtime, Plavix 75 mg daily, Imdur 30 mg daily, lisinopril 10 mg daily, metoprolol tartrate 25 mg twice daily, Ranexa 1000 mg every 12 hours, Smoking cessation. Dr. Ascencio discussed with the patient need for smoking cessation and she will be provided with the [place] quit line information at discharge. Patient is cleared for discharge from cardiology will follow-up with her public health social worker in [place]. Nurse practitioner note has been reviewed, I agree with documented findings and plan of care. Patient was seen and examined. Objective - Vital Signs Vital signs: Vital Signs Temp 98 F 03/09/25 07:07 Pulse 78 03/09/25 08:27 Resp 18 03/09/25 07:07 BP 116/70 03/09/25 07:07 Pulse Ox 96 03/09/25 07:07 FiO2 Intake & Output 03/08/25 03/09/25 03/09/25 18:59 06:59 18:59 Intake Total 1212 Balance 1212 Intake: Oral 1212 Other: # Voids 2 1 - Labs CBC & Chem 7: 03/07/25 05:42 03/09/25 04:13 Labs: Abnormal Lab Results - Last 24 Hours (Table) 03/08/25 03/08/25 03/08/25 Range/Units 11:57 16:26 20:38 Anion Gap (4.00-12.00) mmol/L BUN/Creatinine Ratio (12.00-20.00) Ratio Glucose (70-110) mg/dL POC Glucose (mg/dL) 371 H 246 H 313 H (70-110) mg/dL 03/09/25 03/09/25 Range/Units 04:13 06:19 Anion Gap 14.50 H (4.00-12.00) mmol/L BUN/Creatinine Ratio 22.00 H (12.00-20.00) Ratio Glucose 188 H (70-110) mg/dL POC Glucose (mg/dL) 210 H (70-110) mg/dL
--- NOTE | 2025-03-10 23:16 | P.DS ---
Providers Date of admission: 03/05/25 20:22 Attending physician: Hiro Velez Consults: 03/05/25 20:20 Consult Physician Urgent Consulting Provider: [facility] Consult Reason/Comments: Chest pain Do you want consulting provider notified?: Yes 03/07/25 08:23 Consult Physician Routine Consulting Provider: Nimco Colbert Consult Reason/Comments: copd, dyspnea, Do you want consulting provider notified?: Yes Primary care physician: Physician Nonstaff Hospital Course: Final Diagnosis - COPD with mild acute exacerbation continue on inhaled steroids and breathing treatments. Patient started on systemic steroids - Bronchitis for which we will order azithromycin - Diabetes mellitus type 2 with steroid induced hyperglycemia - Chest pain appears to be the musculoskeletal or secondary to COPD cardiology evaluate the patient rule out acute coronary syndromes continue with medical therapy. - Hypertension - Hyperlipidemia - History of CAD/previous cABG - Continue nicotine use: Counseling was provided pt states she is down to half pack per day from 2 packs per day - Leukocytosis secondary to bronchitis. Discharge Disposition Patient is stable for discharge home with overall guarded prognosis and high risk for readmission secondary to her continued smoking. Patient continues to cut back on tobacco. Cardiac medications were adjusted; patient has been started on lisinopril 5 mg daily, metoprolol decreased to 25 mg twice daily, continues on imdur. Patient to continue azithromycin for 1 day to complete antibiotic therapy and patient to continue on long prednisone taper. Recommend to follow up with her known biotechnologist on discharge. Patient to see her known hospice director Dr Dos Santos on discharge. Total time taken in discharge planning greater than 35 minutes. Hospital Course This is a 54-year-old female with history of coronary artery disease CABG in the past came in with complaints of shortness of breath and chest pain with some mild pleuritic component and cough and wheezing. patient continues to smoke states she has cut down to 1/2 pack per day from 2 packs per day. Patient denied any orthopnea paroxysmal nocturnal dyspnea. Chest x-ray did not show any significant abnormality EKG did not show any acute ST-T wave changes troponins were negative patient was eval by cardiology they believe her chest pressure is secondary to his COPD and cough. Patient had a cardia catheterization in July 2020 for which showed 50% mid RCA stenosis patent left circumflex stents with 40% in-stent restenosis 100% occluded ostial LAD occluded vein graft to obtuse marginal. Maximal medical therapy was recommended patient is on very high dose of Imdur and Ranexa along with beta-daniel and WILLIAM inhibitor. Patient is also on statin. Echocardiogram showed normal ejection fraction. Patient was started on oral azithromycin and pulmonology has started IV solumedrol. Procalcitonin level <0.20. Echocardiogram reveals EF 55-60%, mild MR and TR, mild aortic regurgitation. Cardiac medications adjusted and pulmonology cleared for discharge. Her wheezing has improved and she is tolerating increased activity. No reports of chest pain. Review of Systems Constitutional: Denied any fatigue denied any fever. Cardio vascular: denied any chest pain, palpitations Gastrointestinal: denied any nausea, vomiting, diarrhea Pulmonary: Reports shortness of breath and cough Neurologic denied any new focal deficits All inpatient medications were reviewed and appropriate changes in these medications as dictated in the interval history and assessment and plan. PHYSICAL EXAMINATION: GENERAL: The patient is alert and oriented x3, not in any acute distress. Well developed, well nourished. HEENT: Pupils are round and equally reacting to light. EOMI. No scleral icterus. No conjunctival pallor. Normocephalic, atraumatic. No pharyngeal erythema. No thyromegaly. CARDIOVASCULAR: S1 and S2 present. No murmurs, rubs, or gallops. PULMONARY: Faint scattered posterior wheezing ABDOMEN: Soft, nontender, nondistended, normoactive bowel sounds. No palpable organomegaly. MUSCULOSKELETAL: No joint swelling or deformity. EXTREMITIES: No cyanosis, clubbing, or pedal edema. NEUROLOGICAL: Gross neurological examination did not reveal any focal deficits. SKIN: No rashes. Please see medication reconciliation for a list of current medications. Thank you for allowing us to participate in the care of this patient. The impression and plan of care has been dictated by Violetta Maya, Nurse Practitioner as directed. Dr. Lito MD I have performed a history and physical examination and medical decision making of this patient, discussed the same with the dictator, and agree with the dictators assessment and plan as written, documented as a scribe. Based on total visit time, I have performed more than 50% of this visit. Patient Condition at Discharge: Fair Plan - Discharge Summary Discharge Rx Participant: No New Discharge Prescriptions: New Metoprolol Tartrate [Lopressor] 25 mg PO BID #60 tab predniSONE 0 mg PO DIRECTED 15 Days #35 tab lisinopriL [Zestril] 5 mg PO DAILY #30 tab Aspirin 81 mg PO DAILY #30 tab Isosorbide Mononitrate ER [Imdur] 30 mg PO DAILY #30 tab Azithromycin [Zithromax] 500 mg PO DAILY@1200 #1 tab Continue Atorvastatin [Lipitor] 80 mg PO HS Ranolazine [Ranexa] 1,000 mg PO BID Nitroglycerin Sl Tabs [Nitrostat] 0.4 mg SL Q5M PRN PRN Reason: Chest Pain Albuterol Inhaler [Ventolin Hfa Inhaler] 2 puff INHALATION RT-Q6H PRN PRN Reason: Shortness Of Breath Ipratropium-Albuterol Nebulize [Duoneb 0.5 mg-3 mg/3 ml Soln] 3 ml INHALATION RT-Q6H PRN PRN Reason: Shortness Of Breath Dapagliflozin Propanediol [Farxiga] 10 mg PO DAILY 14 Days #14 tab ARIPiprazole [Abilify] 5 mg PO DAILY rOPINIRole HCL [Requip] 2 mg PO HS Insulin Aspart [NovoLOG Flexpen] See Protocol SQ AC-TID Omeprazole 40 mg PO AC-BID Pregabalin [Lyrica] 150 mg PO TID Clopidogrel [Plavix] 75 mg PO DAILY ALPRAZolam [Xanax] 0.5 mg PO BID PRN PRN Reason: Anxiety Escitalopram [Lexapro] 10 mg PO DAILY Fluticasone/Umeclidin/Vilanter [Trelegy Ellipta 200-62.5-25] 1 puff INHALATION RT-DAILY Ondansetron [Zofran] 4 mg PO Q8HR PRN PRN Reason: Nausea Ferrous Gluconate 324 mg PO Q2D Discontinued Metoprolol Tartrate [Lopressor] 50 mg PO BID amLODIPine [Norvasc] 10 mg PO DAILY Isosorbide Mononitrate [Imdur] 120 mg PO BID Discharge Medication List Atorvastatin [Lipitor] 80 mg PO HS 07/08/20 [History] Ranolazine [Ranexa] 1,000 mg PO BID 11/13/21 [History] Albuterol Inhaler [Ventolin Hfa Inhaler] 2 puff INHALATION RT-Q6H PRN 03/27/23 [History] Clopidogrel [Plavix] 75 mg PO DAILY 03/27/23 [History] Nitroglycerin Sl Tabs [Nitrostat] 0.4 mg SL Q5M PRN 03/27/23 [History] Omeprazole 40 mg PO AC-BID 03/27/23 [History] Pregabalin [Lyrica] 150 mg PO TID 03/27/23 [History] ALPRAZolam [Xanax] 0.5 mg PO BID PRN 06/22/23 [History] Ipratropium-Albuterol Nebulize [Duoneb 0.5 mg-3 mg/3 ml Soln] 3 ml INHALATION RT-Q6H PRN 03/16/24 [History] Dapagliflozin Propanediol [Farxiga] 10 mg PO DAILY 14 Days #14 tab 08/05/24 [Rx] Escitalopram [Lexapro] 10 mg PO DAILY 08/19/24 [History] ARIPiprazole [Abilify] 5 mg PO DAILY 12/16/24 [History] Fluticasone/Umeclidin/Vilanter [Trelegy Ellipta 200-62.5-25] 1 puff INHALATION RT-DAILY 12/16/24 [History] rOPINIRole HCL [Requip] 2 mg PO HS 12/23/24 [History] Ferrous Gluconate 324 mg PO Q2D 03/06/25 [History] Insulin Aspart [NovoLOG Flexpen] See Protocol SQ AC-TID 03/06/25 [History] Ondansetron [Zofran] 4 mg PO Q8HR PRN 03/06/25 [History] Aspirin 81 mg PO DAILY #30 tab 03/08/25 [Rx] Azithromycin [Zithromax] 500 mg PO DAILY@1200 #1 tab 03/08/25 [Rx] Isosorbide Mononitrate ER [Imdur] 30 mg PO DAILY #30 tab 03/08/25 [Rx] Metoprolol Tartrate [Lopressor] 25 mg PO BID #60 tab 03/08/25 [Rx] lisinopriL [Zestril] 5 mg PO DAILY #30 tab 03/08/25 [Rx] predniSONE 0 mg PO DIRECTED 15 Days #35 tab 03/08/25 [Rx] Follow up Appointment(s)/Referral(s): Blanca Cabrales, ION [REFERRING] - 1-2 Days Kemar Jin MD [REFERRING] - 1-2 Days Nonstaff,Physician [Primary Care Provider] - 1-2 days Rabia Dos Santos MD [STAFF PHYSICIAN] - 1 Week Ambulatory/Diagnostic Orders: Basic Metabolic Panel [LAB.AMB] Time Frame: 3 Days, Location: None Selected Activity/Diet/Wound Care/Special Instructions: Continue oral prednisone taper Discharge Disposition: HOME SELF-CARE
== END 2025-03-09 11:12 | disposition home or self-care (01) | DRG 140 ==
LOC: EC 17:20 → OBSVTOIN 20:22 → 6NMEDSUR 20:22
PROVIDERS: ADMIT Hospitalist; ATTEND Hospitalist
DX: J44.1 Chronic obstructive pulmonary disease with (acute) exacerbation (principal); J96.01 Acute respiratory failure with hypoxia; M41.9 Scoliosis, unspecified; T38.0X5A Adverse effect of glucocorticoids and synthetic analogues, initial encounter; T82.855A Stenosis of coronary artery stent, initial encounter; Y83.1 Surgical operation with implant of artificial internal device as the cause of abnormal reaction of the patient, or of later complication, without mention of misadventure at the time of the procedure; I25.82 Chronic total occlusion of coronary artery; I25.810 Atherosclerosis of coronary artery bypass graft(s) without angina pectoris; I25.2 Old myocardial infarction; I25.10 Atherosclerotic heart disease of native coronary artery without angina pectoris; F31.9 Bipolar disorder, unspecified; E11.65 Type 2 diabetes mellitus with hyperglycemia; I10 Essential (primary) hypertension; I08.0 Rheumatic disorders of both mitral and aortic valves; G25.81 Restless legs syndrome; K21.9 Gastro-esophageal reflux disease without esophagitis; M19.90 Unspecified osteoarthritis, unspecified site; F41.9 Anxiety disorder, unspecified; F17.200 Nicotine dependence, unspecified, uncomplicated; E78.5 Hyperlipidemia, unspecified; D72.829 Elevated white blood cell count, unspecified; Z79.02 Long term (current) use of antithrombotics/antiplatelets; Z79.84 Long term (current) use of oral hypoglycemic drugs; Z79.899 Other long term (current) drug therapy; Z86.73 Personal history of transient ischemic attack (TIA), and cerebral infarction without residual deficits; Z90.49 Acquired absence of other specified parts of digestive tract; Z95.1 Presence of aortocoronary bypass graft; Z91.041 Radiographic dye allergy status
CPT/HCPCS: 36415; 71046; 80048; 80053; 80061; 83036; 83735; 84132; 84145; 84484; 85025; 85027; 85610; 85730; 93005; 93306; 94640; 96361; 96365; 96366; 96372; 96375; 99285

== ENCOUNTER 2025-03-14 16:11 | Inpatient (IN) | payer OTHER ==
--- NOTE | 2025-03-14 16:26 | ED ---
General Adult HPI - General Chief complaint: Chest Pain Stated complaint: Chest Pain Time Seen by Provider: 03/14/25 16:13 Source: patient, EMS, RN notes reviewed, old records reviewed Mode of arrival: EMS Limitations: no limitations - History of Present Illness Initial comments: Patient is a 54-year-old female present to the emergency department with c omplaints of chest discomfort. Onset of symptoms was an hour ago at rest. Discomfort is rated 7/10. Patient did receive aspirin and nitroglycerin by EMS. Nitroglycerin did help however symptoms returned after a few minutes. Discomfort feels like tightness. Patient has associated dyspnea. Patient has nausea and did vomit once. Patient has felt sweaty. Patient does have history of previous coronary artery disease and CO with similar symptoms. Patient was in the hospital recently with bronchitis however symptoms feel different from that. - Related Data Home Medications Medication Instructions Recorded Confirmed Atorvastatin [Lipitor] 80 mg PO HS 07/08/20 03/06/25 Ranolazine [Ranexa] 1,000 mg PO BID 11/13/21 03/06/25 Albuterol Inhaler [Ventolin Hfa 2 puff INHALATION RT-Q6H PRN 03/27/23 03/06/25 Inhaler] Clopidogrel [Plavix] 75 mg PO DAILY 03/27/23 03/06/25 Nitroglycerin Sl Tabs [Nitrostat] 0.4 mg SL Q5M PRN 03/27/23 03/06/25 Omeprazole 40 mg PO AC-BID 03/27/23 03/06/25 Pregabalin [Lyrica] 150 mg PO TID 03/27/23 03/06/25 ALPRAZolam [Xanax] 0.5 mg PO BID PRN 06/22/23 03/06/25 Ipratropium-Albuterol Nebulize 3 ml INHALATION RT-Q6H PRN 03/16/24 03/06/25 [Duoneb 0.5 mg-3 mg/3 ml Soln] Escitalopram [Lexapro] 10 mg PO DAILY 08/19/24 03/06/25 ARIPiprazole [Abilify] 5 mg PO DAILY 12/16/24 03/06/25 Fluticasone/Umeclidin/Vilanter 1 puff INHALATION RT-DAILY 12/16/24 03/06/25 [Trelegy Ellipta 200-62.5-25] rOPINIRole HCL [Requip] 2 mg PO HS 12/23/24 03/06/25 Ferrous Gluconate 324 mg PO Q2D 03/06/25 03/06/25 Insulin Aspart [NovoLOG Flexpen] See Protocol SQ AC-TID 03/06/25 03/06/25 Ondansetron [Zofran] 4 mg PO Q8HR PRN 03/06/25 03/06/25 Previous Rx's Medication Instructions Recorded Dapagliflozin Propanediol [Farxiga] 10 mg PO DAILY 14 Days #14 tab 08/05/24 Aspirin 81 mg PO DAILY #30 tab 03/08/25 Azithromycin [Zithromax] 500 mg PO DAILY@1200 #1 tab 03/08/25 Isosorbide Mononitrate ER [Imdur] 30 mg PO DAILY #30 tab 03/08/25 Metoprolol Tartrate [Lopressor] 25 mg PO BID #60 tab 03/08/25 lisinopriL [Zestril] 5 mg PO DAILY #30 tab 03/08/25 predniSONE 0 mg PO DIRECTED 15 Days #35 tab 03/08/25 Allergies Allergy/AdvReac Type Severity Reaction Status Date / Time Iodinated Contrast Media Allergy Anaphylaxis Verified 03/14/25 20:34 Review of Systems ROS Statement: Those systems with pertinent positive or pertinent negative responses have been documented in the HPI. ROS Other: All systems not noted in ROS Statement are negative. Constitutional: Denies: fever Eyes: Denies: eye pain Respiratory: Reports: dyspnea Cardiovascular: Reports: as per HPI, chest pain Musculoskeletal: Denies: back pain Past Medical History Past Medical History: Asthma, Coronary Artery Disease (CAD), COPD, CVA/TIA, Diabetes Mellitus, GERD/Reflux, Hypertension, Myocardial Infarction (CO), Osteoarthritis (OA), Pneumonia Additional Past Medical History / Comment(s): DDD, scoliosis, CO x4, restless leg syndrome Last Myocardial Infarction Date:: 2011 History of Any Multi-Drug Resistant Organisms: None Reported Past Surgical History: Appendectomy, Bowel Resection, Coronary Bypass/CABG, Heart Catheterization With Stent Additional Past Surgical History / Comment(s): seven stents, here for gastroenteritis with abcess (removal 06/21/24), per pt 2 ABD procedures at the same area, Bowel resection with appendectomy 07/05/2024 Past Anesthesia/Blood Transfusion Reactions: No Reported Reaction Date of Last Stent Placement:: 2022 Past Psychological History: Anxiety, Bipolar Smoking Status: Current every day smoker Past Alcohol Use History: None Reported Past Drug Use History: Marijuana - Past Family History Mother Family Medical History: Cancer Additional Family Medical History / Comment(s): Ovarian cancer Father Family Medical History: Congestive Heart Failure (CHF) Sister(s) Family Medical History: COPD, Hypertension Fmily Family Medical History: No Reported History General Exam Limitations: no limitations General appearance: alert Head exam: Present: normocephalic Eye exam: Present: normal appearance Neck exam: Present: normal inspection Respiratory exam: Present: normal lung sounds bilaterally Cardiovascular Exam: Present: regular rate, normal rhythm, normal heart sounds Expanded Peripheral pulses: 2+: Radial (R), Radial (L), Posterior Tibialis (R), Posterior Tibialis (L) GI/Abdominal exam: Present: soft. Absent: tenderness Extremities exam: Present: normal inspection. Absent: pedal edema, calf tenderness Neurological exam: Present: alert Psychiatric exam: Present: normal affect, normal mood Skin exam: Present: normal color Course Vital Signs 03/14/25 03/14/25 03/14/25 16:13 17:10 18:11 Temperature 97.6 F Pulse Rate 73 84 66 Respiratory 20 19 17 Rate Blood Pressure 144/98 127/80 130/75 O2 Sat by Pulse 98 98 98 Oximetry 03/14/25 03/14/25 03/14/25 18:26 18:35 19:40 Temperature Pulse Rate 75 67 84 Respiratory 18 Rate Blood Pressure 113/81 O2 Sat by Pulse 99 Oximetry 03/14/25 03/14/25 03/14/25 20:14 20:15 20:25 Temperature Pulse Rate 156 H 154 H 151 H Respiratory 24 Rate Blood Pressure 119/93 O2 Sat by Pulse Oximetry 03/14/25 03/14/25 03/14/25 20:28 20:31 20:39 Temperature Pulse Rate 154 H 147 H 130 H Respiratory 30 H Rate Blood Pressure 145/110 O2 Sat by Pulse Oximetry 03/14/25 03/14/25 03/14/25 20:40 20:41 20:47 Temperature Pulse Rate 134 H 135 H Respiratory 24 24 Rate Blood Pressure 130/82 O2 Sat by Pulse 98 96 Oximetry EKG Findings - EKG Results: EKG: interpreted by ERMD, sinus rhythm, normal axis, normal QRS, normal ST/T Medical Decision Making - Medical Decision Making Was pt. sent in by a medical professional or institution (VICENTE Mckenna, BIOPHYSICS SCIENTIST, urgent care, hospital, or [facility]...) When possible be specific @ -No Did you speak to anyone other than the patient for history (EMS, parent, family, police, friend...)? What history was obtained from this source @ -No Did you review nursing and triage notes (agree or disagree)? Why? @ -I reviewed and agree with nursing and triage notes Were old charts reviewed (outside hosp., previous admission, EMS record, old EKG, old radiological studies, urgent care reports/EKG's, [facility] records)? Report findings @ -Previous admission reviewed Differential Diagnosis (chest pain, altered mental status, abdominal pain women, abdominal pain men, vaginal bleeding, weakness, fever, dyspnea, syncope, headache, dizziness, GI bleed, back pain, seizure, CVA, palpatations, mental health, musculoskeletal)? @ -Differential Chest Pain: Stable Angina, Unstable Angina, STEMI, NSTEMI Aortic Dissection, Pneumothorax, Musculoskeletal, Esophageal Spasm GERD, Cholecystitis, Pancreatitis, Zoster, this is not meant to be an all-inclusive list. EKG interpreted by me (3pts min.). @ -As above X-rays interpreted by me (1pt min.). @ -Chest x-ray shows no acute process CT interpreted by me (1pt min.). @ -CT scan shows no acute process U/S interpreted by me (1pt. min.). @ -None done What testing was considered but not performed or refused? (CT, X-rays, U/S, labs)? Why? @ -None What meds were considered but not given or refused? Why? @ -None Did you discuss the management of the patient with other professionals (professionals i.e. VICENTE Mckenna, BIOPHYSICS SCIENTIST, lab, RT, psych nurse, secondary social studies teacher, freelance recruiter, teacher, port patrol officer, welfare case worker)? Give summary @ -Case was discussed with practitioner Lesia Wright who will admit covering Dr. Velez's group patient was previously recently admitted with Case also discussed with Dr. Gann who will consult for critical care and accept ICU. Was smoking cessation discussed for >3mins.? @ -No Was critical care preformed (if so, how long)? @ -80 minutes critical care time Were there social determinants of health that impacted care today? How? (Homelessness, low income, unemployed, alcoholism, drug addiction, transportation, low edu. Level, literacy, decrease access to med. care, senior care, rehab)? @ -No Was there de-escalation of care discussed even if they declined (Discuss DNR or withdrawal of care, Hospice)? DNR status @ -No What co-morbidities impacted this encounter? (DM, HTN, Smoking, COPD, CAD, Cancer, CVA, ARF, Chemo, Hep., AIDS, mental health diagnosis, sleep apnea, morbid obesity)? @ -History of allergic reaction to iodine contrast. Discussion was had with patient prior to receiving iodine contrast regarding concerns for chest discomfort and dyspnea and elevated D-dimer. Agreement was made that patient would have CT scan with contrast with premedication. Patient understands risk and benefits. Was patient admitted / discharged? Hospital course, mention meds given and route, prescriptions, significant lab abnormalities, going to OR and other pertinent info. @ -Patient presents with chest discomfort and associated dyspnea. Cardiac initial evaluation unremarkable. Elevated D-dimer. Patient did receive CT sc an. Immediately following CT scan that patient was premedicated for she did develop severe anaphylactic reaction. Patient did receive 3 rounds of IM epi. Patient received 2 DuoNeb's and 2 albuterol treatments. Patient did receive additional 50 of Benadryl and additional 20 of Pepcid. Patient has started to improve at this point. I was at bedside for 55 minutes. Heart rate was up to 156, now down to 133. Blood pressure has been stable other than initial reading of 89. Patient did have mild uvula edema. Patient did have significant wheezing that has improved. Respiratory distress has resolved at this point. Patient is advised to not have iodine contrast ever again unless it was imm ediately lifesaving. Undiagnosed new problem with uncertain prognosis? @ -No Drug Therapy requiring intensive monitoring for toxicity (Heparin, Nitro, Insulin, Cardizem)? @ -No Were any procedures done? @ -No Diagnosis/symptom? @ -Chest pain, anaphylactic Acute, or Chronic, or Acute on Chronic? @ -Acute, acute Uncomplicated (without systemic symptoms) or Complicated (systemic symptoms)? @ -Default Side effects of treatment? @ -No Exacerbation, Progression, or Severe Exacerbation? @ -No Poses a threat to life or bodily function? How? (Chest pain, USA, CO, pneumonia, PE, COPD, DKA, ARF, appy, cholecystitis, CVA, Diverticulitis, Homicidal, Suicidal, threat to staff... and all critical care pts) @ -Threat to cardiac function, threat to respiratory and systemic function of organs. - Lab Data Result diagrams: 03/14/25 16:37 03/14/25 16:37 Lab Results 03/14/25 03/14/25 03/14/25 Range/Units 16:37 16:37 16:37 WBC 9.40 (4.50-10.00) 10*3/uL RBC 4.85 (4.10-5.20) 10*6/uL Hgb 12.4 (12.0-15.0) g/dL Hct 38.4 (37.2-46.3) % MCV 79.2 L (80.0-97.0) fL MCH 25.6 L (27.0-32.0) pg MCHC 32.3 (32.0-37.0) g/dL Plt Count 383 (140-440) 10*3/uL MPV 10.2 (9.5-12.2) fL Immature Gran % (Auto) 0.7 % Neutrophils % 56.5 % Lymphocytes % 33.0 % Monocytes % 7.7 % Eosinophils % 1.6 % Basophils % 0.5 % Immature Gran # 0.07 H (0.00-0.04) 10*3/uL Neutrophils # 5.31 (1.80-7.70) 10*3/uL Lymphocytes # 3.10 (0.90-5.00) 10*3/uL Monocytes # 0.72 (0.20-1.00) 10*3/uL Eosinophils # 0.15 (0.04-0.35) 10*3/uL Basophils # 0.05 (0.00-0.10) 10*3/uL PT (10.0-12.5) sec INR (<1.2) APTT (22.0-30.0) sec D-Dimer (<0.60) mg/L FEU Sodium 139 (137-145) mmol/L Potassium 4.2 (3.5-5.1) mmol/L Chloride 108 H (98-107) mmol/L Carbon Dioxide 23 (22-30) mmol/L Anion Gap 8 mmol/L BUN 10 (7-17) mg/dL Creatinine 0.72 (0.52-1.04) mg/dL Est GFR (CKD-EPI)AfAm >90 (>60 ml/min/1.73 sqM) Est GFR (CKD-EPI)NonAf >90 (>60 ml/min/1.73 sqM) Glucose 93 (74-99) mg/dL Calcium 9.6 (8.4-10.2) mg/dL Magnesium 2.0 (1.6-2.3) mg/dL Total Bilirubin 1.2 (0.2-1.3) mg/dL AST 28 (14-36) U/L ALT 24 (4-34) U/L Alkaline Phosphatase 126 (38-126) U/L Troponin I <0.012 (0.000-0.034) ng/mL NT-Pro-B Natriuret Pep 458 pg/mL Total Protein 6.6 (6.3-8.2) g/dL Albumin 4.1 (3.5-5.0) g/dL 03/14/25 Range/Units 18:11 WBC (4.50-10.00) 10*3/uL RBC (4.10-5.20) 10*6/uL Hgb (12.0-15.0) g/dL Hct (37.2-46.3) % MCV (80.0-97.0) fL MCH (27.0-32.0) pg MCHC (32.0-37.0) g/dL Plt Count (140-440) 10*3/uL MPV (9.5-12.2) fL Immature Gran % (Auto) % Neutrophils % % Lymphocytes % % Monocytes % % Eosinophils % % Basophils % % Immature Gran # (0.00-0.04) 10*3/uL Neutrophils # (1.80-7.70) 10*3/uL Lymphocytes # (0.90-5.00) 10*3/uL Monocytes # (0.20-1.00) 10*3/uL Eosinophils # (0.04-0.35) 10*3/uL Basophils # (0.00-0.10) 10*3/uL PT 10.5 (10.0-12.5) sec INR 0.9 (<1.2) APTT 22.0 (22.0-30.0) sec D-Dimer 0.92 H (<0.60) mg/L FEU Sodium (137-145) mmol/L Potassium (3.5-5.1) mmol/L Chloride (98-107) mmol/L Carbon Dioxide (22-30) mmol/L Anion Gap mmol/L BUN (7-17) mg/dL Creatinine (0.52-1.04) mg/dL Est GFR (CKD-EPI)AfAm (>60 ml/min/1.73 sqM) Est GFR (CKD-EPI)NonAf (>60 ml/min/1.73 sqM) Glucose (74-99) mg/dL Calcium (8.4-10.2) mg/dL Magnesium (1.6-2.3) mg/dL Total Bilirubin (0.2-1.3) mg/dL AST (14-36) U/L ALT (4-34) U/L Alkaline Phosphatase (38-126) U/L Troponin I (0.000-0.034) ng/mL NT-Pro-B Natriuret Pep pg/mL Total Protein (6.3-8.2) g/dL Albumin (3.5-5.0) g/dL Critical Care Time Critical Care Time: Yes Total Critical Care Time: 80 Disposition Clinical Impression: Anaphylactic reaction, Chest pain Disposition: ADMITTED IP TO THIS [facility] Condition: Serious Is patient prescribed a controlled substance at d/c from ED?: No Time of Disposition: 20:55
[2025-03-14] MEDS: NITROGLYCERIN OINT 1 INCH/GM PACKET TOPICAL STA (16:28)
[2025-03-14] MEDS: NITROGLYCERIN SL TABS 0.4 MG TAB SUBLINGUAL STA (16:42)
[2025-03-14 16:48] LABS: Basophils # (A) 0.05 10*3/uL (0.00-0.10); Basophils % (A) 0.5 %; Eosinophils # (A) 0.15 10*3/uL (0.04-0.35); Eosinophils % (A) 1.6 %; HCT 38.4 % (37.2-46.3); HGB 12.4 g/dL (12.0-15.0); MCH 25.6 pg (27.0-32.0); MCHC 32.3 g/dL (32.0-37.0); MCV 79.2 fL (80.0-97.0); Mean Platelet Volume 10.2 fL (9.5-12.2); Monocytes # (A) 0.72 10*3/uL (0.20-1.00); Monocytes % (A) 7.7 %; Neutrophils # (A) 5.31 10*3/uL (1.80-7.70); Neutrophils % (A) 56.5 %; Platelet Count 383 10*3/uL (140-440); RBC 4.85 10*6/uL (4.10-5.20)
--- NOTE | 2025-03-14 17:07 | XR ---
EXAMINATION TYPE: XR chest 2V DATE OF EXAM: 03/14/2025 4:50 PM COMPARISON: 03/05/2025 CLINICAL INDICATION: Female, 54 years old with history of Chest Pain: Shortness of breath TECHNIQUE: XR chest 2V views of the chest are obtained. FINDINGS: Scattered senescent parenchymal changes noted. Hyperinflation compatible with COPD. No evidence for infiltrate. No evidence for atelectasis. Heart size is stable. Mediastinal structures are stable and grossly unremarkable. No evidence for hilar prominence. Degenerative changes dorsal spine. IMPRESSION: 1. No evidence for acute pulmonary disease. [facility], , 03/14/2025 5:05 PM
[2025-03-14 17:12] LABS: ALT 24 U/L (4-34); AST 28 U/L (14-36); African American GFR (CKD) >90 (>60 ml/min/1.73 sqM); Albumin 4.1 g/dL (3.5-5.0); Alkaline Phosphatase 126 U/L (38-126); Anion Gap 8 mmol/L; Blood Urea Nitrogen 10 mg/dL (7-17); Calcium 9.6 mg/dL (8.4-10.2); Carbon Dioxide 23 mmol/L (22-30); Chloride 108 mmol/L (98-107); Glucose 93 mg/dL (74-99); Non-African American GFR(CKD) >90 (>60 ml/min/1.73 sqM); Potassium 4.2 mmol/L (3.5-5.1); Sodium 139 mmol/L (137-145); Total Bilirubin 1.2 mg/dL (0.2-1.3); Total Protein 6.6 g/dL (6.3-8.2)
[2025-03-14] MEDS: MORPHINE SULFATE 4 MG/ML SYRINGE IVP STA (17:15)
[2025-03-14 17:20] LABS: NT-Pro-B-Type Natriuretic Pept 458 pg/mL
[2025-03-14] MEDS: ALBUTEROL NEBULIZED 2.5 MG/3 ML INHALATION STA ×3 (18:25→22:07)
[2025-03-14 18:52] LABS: INR 0.9 (<1.2)
[2025-03-14 18:53] LABS: Prothrombin Time 10.5 sec (10.0-12.5)
[2025-03-14] MEDS: diphenhydrAMINE 50 MG/ML 1 ML VIAL IVP STA ×2 (19:34→20:27)
[2025-03-14] MEDS: FAMOTIDINE 20 MG/2 ML VIAL IV STA ×2 (19:37→20:27)
[2025-03-14] MEDS: methylPREDNISolone SOD SUCCI 125 MG/2 ML VIAL IV STA (19:37)
[2025-03-14] MEDS: IPRATROPIUM-ALBUTEROL 3 ML NEB INHALATION STA ×2 (20:14→20:24)
[2025-03-14] MEDS: EPINEPHrine - Anaphylaxis Kit (1 mg/mL) IM STA ×3 (20:27→20:30)
--- NOTE | 2025-03-14 20:32 | CT ---
EXAMINATION TYPE: CT angio chest DATE OF EXAM: 03/14/2025 8:04 PM COMPARISON: None. CLINICAL INDICATION: Female, 54 years old with history of benny, difficulty breathing, TECHNIQUE: CT of the chest is performed on a spiral scan at 2 mm thick sections. Study is performed with intravenous contrast timed for evaluation for pulmonary embolism. This will limit additional po rtions of the evaluation. 10mm MIP images reconstructed by the technologist are reviewed on the comp uter in the coronal and sagittal planes. Contrast used:100 mL of Isovue 370 with IV Contrast, (none if empty) Oral contrast used: (none if empty) CT DLP: 414.1 mGycm, Automated exposure control for dose reduction was used. FINDINGS: No persistent filling defects are evident to suggest an acute pulmonary embolism. No mediastinal or hilar adenopathy enlarged by CT criteria is evident. Scattered small lymph nodes a re present. The ascending aorta diameter at the level of the main pulmonary artery is 3.5 cm. The main pulmonary artery diameter at the bifurcation is 2.0 cm. Lung windows are clear. Emphysematous changes are present. Mild coronary artery calcifications present. Limited CT sections were through the upper abdomen. Upper abdomen appears unremarkable. IMPRESSION: 1. No acute pulmonary embolism. 2. No acute pulmonary process. 3. Emphysema. 4. Patient is reported to have reacted to the contrast despite premedication. [facility], , 03/14/2025 8:30 PM
[2025-03-14] MEDS ORDERED: NITROGLYCERIN SL TABS 0.4 MG TAB SUBLINGUAL PRN (21:02)
[2025-03-14 22:13] LABS: Glucose,Whole Blood 393 mg/dL (70-110)
[2025-03-14] MEDS ORDERED: NALOXONE 0.4 MG/ML 1 ML VIAL IV PRN (22:23)
[2025-03-14] MEDS: ASPIRIN 81 MG PO STA (22:30)
[2025-03-14] MEDS ORDERED: DEXTROSE 50% SYRINGE 50 ML IVP PRN ×2 (23:14)
[2025-03-14] MEDS: HYDROcodone/APAP 5-325MG 1 EACH TAB PO PRN (23:22)
[2025-03-14] MEDS: ONDANSETRON 4 MG/2 ML VIAL IVP PRN (23:24)
[2025-03-14] MEDS: NITROGLYCERIN OINT 1 INCH/GM PACKET TOPICAL SCH (23:28)
[2025-03-14] MEDS: diphenhydrAMINE 50 MG/ML 1 ML VIAL IVP SCH (23:28)
[2025-03-14] MEDS: LACTATED RINGERS 1,000 ML IV SCH (23:29)
[2025-03-14] MEDS: INSULIN LISPRO (HumaLOG) 100 UNIT/ML 10 mL VL SQ SCH (23:29)
[2025-03-15] MEDS: methylPREDNISolone SOD SUCCI 125 MG/2 ML VIAL IV SCH (01:44)
[2025-03-15 03:45] LABS: HCT 40.6 % (37.2-46.3); HGB 12.8 g/dL (12.0-15.0); MCH 25.4 pg (27.0-32.0); MCHC 31.5 g/dL (32.0-37.0); MCV 80.6 fL (80.0-97.0); Mean Platelet Volume 10.3 fL (9.5-12.2); Platelet Count 415 10*3/uL (140-440); RBC 5.04 10*6/uL (4.10-5.20); RDW 21.3 % (11.5-14.5); WBC 20.87 10*3/uL (4.50-10.00)
[2025-03-15 04:02] LABS: African American GFR (CKD) 86 (>60 ml/min/1.73 sqM); Anion Gap 11 mmol/L; Blood Urea Nitrogen 12 mg/dL (7-17); Calcium 9.3 mg/dL (8.4-10.2); Carbon Dioxide 20 mmol/L (22-30); Chloride 105 mmol/L (98-107); Glucose 194 mg/dL (74-99); Non-African American GFR(CKD) 75 (>60 ml/min/1.73 sqM); Potassium 4.2 mmol/L (3.5-5.1); Sodium 136 mmol/L (137-145)
[2025-03-15] MEDS: IPRATROPIUM-ALBUTEROL 3 ML NEB INHALATION PRN (04:34)
[2025-03-15 06:02] LABS: Glucose,Whole Blood 195 mg/dL (70-110)
[2025-03-15] MEDS: IPRATROPIUM-ALBUTEROL 3 ML NEB INHALATION SCH (07:56)
[2025-03-15] MEDS: ASPIRIN 325 MG TAB PO SCH (08:55)
[2025-03-15] MEDS: FAMOTIDINE 20 MG/2 ML VIAL IV SCH (08:55)
--- NOTE | 2025-03-15 10:04 | P.CNPUL ---
History of Present Illness Consult date: 03/15/25 Requesting physician: Dev Alexander Reason for consult: other (Critical care management) Chief complaint: Chest pain, anaphylaxis History of present illness: This is a 54-year-old female patient with a known history of chronic obstructive pulmonary disease chronic and ongoing tobacco dependence, coronary artery disease with previous stent placements, subsequent coronary artery bypass grafting, anxiety, bipolar disorder, diabetes mellitus, hypertension, marijuana use. She presented here to the emergency department yesterday with complaints of chest pain. EKG revealed sinus rhythm with no significant ST or T wave abnormality. Chest x-ray revealed no acute pulmonary disease. White count 20.8. Hemoglobin 12.8. Platelets 415. Sodium 136. Potassium 4.2. Bicarb 20. BUN 12. Creatinine 0.87. Glucose 195. Troponins were negative x 3. proBNP 458. D-dimer was 0.92 and she did undergo a CT angiogram. She does have a contrast allergy and she was pretreated before the test. Pulmonary embolism was ruled out. There was no acute pulmonary process. Some evidence of emphysema. Following the scan she developed a severe anaphylactic reaction. She was treated in the emergency department with steroids, Benadryl and epinephrine 0.3 mg IM x 3 and multiple breathing treatments. She was admitted to the intensive care unit for further observation. Presently she is sitting up in bed. Awake and alert in no acute distress. She has been maintaining good O2 saturations in the upper 90s on 2 L/min per nasal cannula. She has been afebrile. Hemodynamically stable. Denies any chest pain currently. No shortness of breath. No tongue swelling. No lip swelling. Feeling back to her baseline. Review of Systems REVIEW OF SYSTEMS: CONSTITUTIONAL: Positive for anaphylaxis reaction. Denies any recent significant weight loss or weight gain. EYES: Denies change in vision. EARS, NOSE, MOUTH, THROAT: Denies headaches, denies sore throat. CARDIOVASCULAR: Denies chest pain, palpitations or syncopal episodes. RESPIRATORY: Positive for shortness of breath, no cough, congestion or hemoptysis. GASTROINTESTINAL: Denies change in appetite, denies abdominal pain GENITOURINARY: Denies hematuria, denies infections. MUSKULOSKELETAL: Denies pain, denies swelling. INTEGUMENTARY: Denies rash, denies eczema. NEUROLOGICAL: Denies recent memory loss, no recent seizure activity. PSYCHIATRIC: Denies anxiety, denies depression. HEMATOLOGIC/LYMPHATIC: Denies anemia, denies enlarged lymph nodes. Past Medical History Past Medical History: Asthma, Coronary Artery Disease (CAD), COPD, CVA/TIA, Diabetes Mellitus, GERD/Reflux, Hypertension, Myocardial Infarction ([place]), Osteoarthritis (OA), Pneumonia Additional Past Medical History / Comment(s): DDD, scoliosis, [place] x4, restless leg syndrome Last Myocardial Infarction Date:: 2011 History of Any Multi-Drug Resistant Organisms: None Reported Past Surgical History: Appendectomy, Bowel Resection, Coronary Bypass/CABG, Heart Catheterization With Stent Additional Past Surgical History / Comment(s): seven stents, here for gastroenteritis with abcess (removal 06/21/24), per pt 2 ABD procedures at the same area, Bowel resection with appendectomy 07/05/2024 Past Anesthesia/Blood Transfusion Reactions: No Reported Reaction Date of Last Stent Placement:: 2022 Past Psychological History: Anxiety, Bipolar Smoking Status: Current every day smoker Past Alcohol Use History: None Reported Past Drug Use History: Marijuana - Past Family History Mother Family Medical History: Cancer Additional Family Medical History / Comment(s): Ovarian cancer Father Family Medical History: Congestive Heart Failure (CHF) Sister(s) Family Medical History: COPD, Hypertension Fmily Family Medical History: No Reported History Medications and Allergies Home Medications Medication Instructions Recorded Confirmed Type Atorvastatin [Lipitor] 80 mg PO HS 07/08/20 03/06/25 History Ranolazine [Ranexa] 1,000 mg PO BID 11/13/21 03/06/25 History Albuterol Inhaler [Ventolin Hfa 2 puff INHALATION RT-Q6H PRN 03/27/23 03/06/25 History Inhaler] Clopidogrel [Plavix] 75 mg PO DAILY 03/27/23 03/06/25 History Nitroglycerin Sl Tabs [Nitrostat] 0.4 mg SL Q5M PRN 03/27/23 03/06/25 History Omeprazole 40 mg PO AC-BID 03/27/23 03/06/25 History Pregabalin [Lyrica] 150 mg PO TID 03/27/23 03/06/25 History ALPRAZolam [Xanax] 0.5 mg PO BID PRN 06/22/23 03/06/25 History Ipratropium-Albuterol Nebulize 3 ml INHALATION RT-Q6H PRN 03/16/24 03/06/25 History [Duoneb 0.5 mg-3 mg/3 ml Soln] Dapagliflozin Propanediol [Farxiga] 10 mg PO DAILY 14 Days #14 tab 08/05/24 03/06/25 Rx Escitalopram [Lexapro] 10 mg PO DAILY 08/19/24 03/06/25 History ARIPiprazole [Abilify] 5 mg PO DAILY 12/16/24 03/06/25 History Fluticasone/Umeclidin/Vilanter 1 puff INHALATION RT-DAILY 12/16/24 03/06/25 Hist ory [Trelegy Ellipta 200-62.5-25] rOPINIRole HCL [Requip] 2 mg PO HS 12/23/24 03/06/25 History Ferrous Gluconate 324 mg PO Q2D 03/06/25 03/06/25 History Insulin Aspart [NovoLOG Flexpen] See Protocol SQ AC-TID 03/06/25 03/06/25 History Ondansetron [Zofran] 4 mg PO Q8HR PRN 03/06/25 03/06/25 History Aspirin 81 mg PO DAILY #30 tab 03/08/25 Rx Azithromycin [Zithromax] 500 mg PO DAILY@1200 #1 tab 03/08/25 Rx Isosorbide Mononitrate ER [Imdur] 30 mg PO DAILY #30 tab 03/08/25 Rx Metoprolol Tartrate [Lopressor] 25 mg PO BID #60 tab 03/08/25 Rx lisinopriL [Zestril] 5 mg PO DAILY #30 tab 03/08/25 Rx predniSONE 0 mg PO DIRECTED 15 Days #35 tab 03/08/25 Rx Allergies Allergy/AdvReac Type Severity Reaction Status Date / Time Iodinated Contrast Media Allergy Anaphylaxis Verified 03/14/25 20:34 Physical Exam Vitals: Vital Signs Temp Pulse Resp BP Pulse Ox 03/15/25 09:00 88 03/15/25 08:30 92 128/81 95 03/15/25 08:06 80 03/15/25 08:00 98.5 F 68 14 117/69 98 03/15/25 07:58 98 03/15/25 07:56 80 03/15/25 07:30 71 122/84 95 03/15/25 07:00 80 14 126/78 96 03/15/25 06:30 75 15 96 03/15/25 06:00 78 30 H 132/81 95 03/15/25 05:30 79 13 136/84 95 03/15/25 05:00 82 17 134/76 95 03/15/25 04:35 80 03/15/25 04:30 80 17 139/83 94 L 03/15/25 04:00 98.1 F 78 14 129/79 95 03/15/25 03:30 80 16 113/70 94 L 03/15/25 03:00 72 8 L 119/69 96 03/15/25 02:30 81 16 151/95 96 03/15/25 02:00 93 23 139/99 95 03/15/25 01:30 94 21 134/71 98 03/15/25 01:00 98 13 132/81 96 03/15/25 00:30 100 20 155/94 97 03/15/25 00:10 99 13 155/94 97 03/15/25 00:00 97.6 F 97 18 159/107 97 03/14/25 23:30 13 148/103 97 03/14/25 23:00 101 H 13 149/92 96 03/14/25 22:30 101 H 17 93 L 03/14/25 22:09 105 H 20 132/113 93 L 03/14/25 21:45 108 H 20 99/52 93 L 03/14/25 21:02 123 H 20 127/93 93 L 03/14/25 20:47 135 H 24 96 03/14/25 20:41 130/82 03/14/25 20:40 134 H 24 98 03/14/25 20:39 130 H 03/14/25 20:31 147 H 30 H 145/110 03/14/25 20:28 154 H 03/14/25 20:25 151 H 03/14/25 20:15 154 H 24 119/93 03/14/25 20:14 156 H 03/14/25 19:40 84 18 113/81 99 03/14/25 18:35 67 03/14/25 18:26 75 03/14/25 18:11 66 17 130/75 98 03/14/25 17:10 84 19 127/80 98 03/14/25 16:13 97.6 F 73 20 144/98 98 Intake and Output 03/14/25 03/15/25 03/15/25 22:59 06:59 14:59 Intake Total 600 225 Output Total 1300 0 Balance -700 225 Intake: IV 600 225 Lactated Ringers 1,000 ml 600 225 @ 75 mls/hr IV .[id number] [facility] Rx#:[id number] Output: Urine 1300 0 Other: Voiding Method Bedside Commode Toilet # Voids 1 1 Weight 90.718 kg 92.8 kg GENERAL EXAM: Alert, oriented 54-year-old female, on 2 L nasal cannula, comfortable in no apparent distress. HEAD: Normocephalic. EYES: Normal reaction of pupils, equal size. NOSE: Clear with pink turbinates. THROAT: No erythema or exudates. NECK: No masses, no JVD. CHEST: No chest wall deformity. LUNGS: Equal air entry with no crackles, wheeze, rhonchi or dullness. CVS: S1 and S2 normal with no audible murmur, regular rhythm. ABDOMEN: No hepatosplenomegaly, normal bowel sounds, no guarding or rigidity. SPINE: No scoliosis or deformity SKIN: No rashes CENTRAL NERVOUS SYSTEM: No focal deficits, tone is normal in all 4 extremities. EXTREMITIES: There is no peripheral edema. No clubbing, no cyanosis. Peripheral pulses are intact. Results - Laboratory Findings CBC and BMP: 03/15/25 02:54 03/15/25 02:54 PT/INR, D-dimer PT 10.5 sec (10.0-12.5) 03/14/25 18:11 INR 0.9 (<1.2) 03/14/25 18:11 D-Dimer 0.92 mg/L FEU (<0.60) H 03/14/25 18:11 Abnormal lab findings: Abnormal Labs 03/14/25 03/14/25 03/14/25 16:37 16:37 18:11 WBC MCV 79.2 L MCH 25.6 L MCHC Immature Gran # 0.07 H D-Dimer 0.92 H Sodium Chloride 108 H Carbon Dioxide Glucose POC Glucose (mg/dL) 03/14/25 03/15/25 03/15/25 22:11 02:54 02:54 WBC 20.87 H MCV MCH 25.4 L MCHC 31.5 L Immature Gran # D-Dimer Sodium 136 L Chloride Carbon Dioxide 20 L Glucose 194 H POC Glucose (mg/dL) 393 H 03/15/25 06:01 WBC MCV MCH MCHC Immature Gran # D-Dimer Sodium Chloride Carbon Dioxide Glucose POC Glucose (mg/dL) 195 H - Diagnostic Findings Chest x-ray: image reviewed CT scan - chest: image reviewed Assessment and Plan Assessment: Atypical chest pain, acute coronary syndrome ruled out Mildly elevated D-dimer, CT angiogram ruled out pulmonary embolism. No acute p ulmonary process Anaphylaxis reaction secondary to IV contrast despite being pretreated Chronic obstructive pulmonary disease Chronic and ongoing tobacco dependence History of marijuana use Coronary disease with previous stent placements, subsequent CABG Bipolar disorder Diabetes mellitus Hypertension Plan: The patient was seen and evaluated Imaging, labs and medications reviewed Stable and on 2 L nasal cannula Continue IV Solu-Medrol Continue Benadryl Continue Pepcid Add Symbicort Continue DuoNeb inhalations Transfer to 3 S. Cardiology consult pending We will continue to follow and make further recommendations based on her clinical status I have personally seen and examined the patient, performed the documentation and the assessment and plan as written. Number of minutes spent on the visit: 20 Dictation was produced using [employer] dictation software. Please excuse any grammatical, word or spelling errors. Time with Patient: Greater than 30
[2025-03-15 10:59] LABS: Glucose,Whole Blood 197 mg/dL (70-110)
--- NOTE | 2025-03-15 11:49 | P.CRDCN ---
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 She has prior history of CAD status post CABG. Her recent heart cath from 07/2024. She has a history of hypertension dyslipidemia COPD tobacco smoker. This time she presented to the hospital because of substernal chest pressure. In ER she had mildly elevated D-dimer for which she had a CT angio chest done. It ruled out PE however she developed anaphylactic reaction however she was pretreated for known contrast allergy. Interestingly she has not had anaphylactic reaction to iodine in the past when she had her heart cath in 08/14 24. Post anaphylactic reaction she has been managed in ICU. She was recently hospitalized 03/05/2025 with similar substernal chest pressure at that time she was ruled out of ACS and on cardiology evaluation she was discharged home on her home cardiac medications. recommended home medications were aspirin, Plavix, Lipitor 80, Imdur 30, lisinopril 10, metoprolol 25 twice daily, Ranexa 1000 twice daily Current vitals BP 128/81, heart rate 92 Admission Labs: Hb 12, BUN 10, creatinine 0.7, troponins negative, NT-proBNP 458 Admission EKG: Normal sinus rhythm REVIEW OF SYSTEMS: 14 point review of system is negative except what is mentioned above in HPI. PHYSICAL EXAMINATION: Neck: Brisk carotid upstroke, no jugular venous distention. Lungs: Clear to auscultation. Heart: Regular rate and rhythm, S1-S2, , no murmur or rub. Abdomen: Soft nontender, positive bowel sounds. Extremities: No edema, intact distal pulses. Neuro: Alert, oritented, no focal deficits. Detailed neuro exam was not per formed. ASSESSMENT: # Atypical chest pain, rule out of ACS # Prior history of CAD status post PCI and CABG. Stable CAD at this time. ACC class III # 40 to 50% mid RCA disease, patent stent in LCx with 40% in-stent stenosis with neointimal hyperplasia, patent vein graft to LAD, occluded vein graft to OM. Poor distal runoff with small vessel disease in mid to distal arteries. # Anaphylactic reaction after exposure to iodine contrast for CTA chest angiogram # COPD # Tobacco smoker # Marijuana user # Bipolar disease # Type 2 diabetes # Hypertension PLAN: Continue home medication without any changes Consider SGLT2 on outpatient basis Supportive care in ICU Recent echo from 02/2025 EF 55%, no RWMA, mild MR TR, mild aortic regurgitation At this time patient is stable from cardiovascular standpoint. No further cardiac workup recommended at this time Jhonny Thompson MD, FACC, RPVI Thank you for allowing [facility] to participate in this patient's care. Feel free to reach out in case of any followup questions. Past Medical History Past Medical History: Asthma, Coronary Artery Disease (CAD), COPD, CVA/TIA, Diabetes Mellitus, GERD/Reflux, Hypertension, Myocardial Infarction ([place]), Osteoarthritis (OA), Pneumonia Additional Past Medical History / Comment(s): DDD, scoliosis, [place] x4, restless leg syndrome Last Myocardial Infarction Date:: 2011 History of Any Multi-Drug Resistant Organisms: None Reported Past Surgical History: Appendectomy, Bowel Resection, Coronary Bypass/CABG, Heart Catheterization With Stent Additional Past Surgical History / Comment(s): seven stents, here for gastroenteritis with abcess (removal 06/21/24), per pt 2 ABD procedures at the same area, Bowel resection with appendectomy 07/05/2024 Past Anesthesia/Blood Transfusion Reactions: No Reported Reaction Date of Last Stent Placement:: 2022 Past Psychological History: Anxiety, Bipolar Smoking Status: Current every day smoker Past Alcohol Use History: None Reported Past Drug Use History: Marijuana - Past Family History Mother Family Medical History: Cancer Additional Family Medical History / Comment(s): Ovarian cancer Father Family Medical History: Congestive Heart Failure (CHF) Sister(s) Family Medical History: COPD, Hypertension Fmily Family Medical History: No Reported History Medications and Allergies Home Medications Medication Instructions Recorded Confirmed Type Atorvastatin [Lipitor] 80 mg PO HS 07/08/20 03/06/25 History Ranolazine [Ranexa] 1,000 mg PO BID 11/13/21 03/06/25 History Albuterol Inhaler [Ventolin Hfa 2 puff INHALATION RT-Q6H PRN 03/27/23 03/06/25 History Inhaler] Clopidogrel [Plavix] 75 mg PO DAILY 03/27/23 03/06/25 History Nitroglycerin Sl Tabs [Nitrostat] 0.4 mg SL Q5M PRN 03/27/23 03/06/25 History Omeprazole 40 mg PO AC-BID 03/27/23 03/06/25 History Pregabalin [Lyrica] 150 mg PO TID 03/27/23 03/06/25 History ALPRAZolam [Xanax] 0.5 mg PO BID PRN 06/22/23 03/06/25 History Ipratropium-Albuterol Nebulize 3 ml INHALATION RT-Q6H PRN 03/16/24 03/06/25 History [Duoneb 0.5 mg-3 mg/3 ml Soln] Dapagliflozin Propanediol [Farxiga] 10 mg PO DAILY 14 Days #14 tab 08/05/24 03/06/25 Rx Escitalopram [Lexapro] 10 mg PO DAILY 08/19/24 03/06/25 History ARIPiprazole [Abilify] 5 mg PO DAILY 12/16/24 03/06/25 History Fluticasone/Umeclidin/Vilanter 1 puff INHALATION RT-DAILY 12/16/24 03/06/25 History [Trelegy Ellipta 200-62.5-25] rOPINIRole HCL [Requip] 2 mg PO HS 12/23/24 03/06/25 History Ferrous Gluconate 324 mg PO Q2D 03/06/25 03/06/25 History Insulin Aspart [NovoLOG Flexpen] See Protocol SQ AC-TID 03/06/25 03/06/25 History Ondansetron [Zofran] 4 mg PO Q8HR PRN 03/06/25 03/06/25 History Aspirin 81 mg PO DAILY #30 tab 03/08/25 Rx Azithromycin [Zithromax] 500 mg PO DAILY@1200 #1 tab 03/08/25 Rx Isosorbide Mononitrate ER [Imdur] 30 mg PO DAILY #30 tab 03/08/25 Rx Metoprolol Tartrate [Lopressor] 25 mg PO BID #60 tab 03/08/25 Rx lisinopriL [Zestril] 5 mg PO DAILY #30 tab 03/08/25 Rx predniSONE 0 mg PO DIRECTED 15 Days #35 tab 03/08/25 Rx Allergies Allergy/AdvReac Type Severity Reaction Status Date / Time Iodinated Contrast Media Allergy Anaphylaxis Verified 03/14/25 20:34 Physical Exam Vitals: Vital Signs Temp Pulse Resp BP Pulse Ox 03/15/25 11:38 82 03/15/25 11:28 88 03/15/25 09:00 88 03/15/25 08:30 92 128/81 95 03/15/25 08:06 80 03/15/25 08:00 98.5 F 68 14 117/69 98 03/15/25 07:58 98 03/15/25 07:56 80 03/15/25 07:30 71 122/84 95 03/15/25 07:00 80 14 126/78 96 03/15/25 06:30 75 15 96 03/15/25 06:00 78 30 H 132/81 95 03/15/25 05:30 79 13 136/84 95 03/15/25 05:00 82 17 134/76 95 03/15/25 04:35 80 03/15/25 04:30 80 17 139/83 94 L 03/15/25 04:00 98.1 F 78 14 129/79 95 03/15/25 03:30 80 16 113/70 94 L 03/15/25 03:00 72 8 L 119/69 96 03/15/25 02:30 81 16 151/95 96 03/15/25 02:00 93 23 139/99 95 03/15/25 01:30 94 21 134/71 98 03/15/25 01:00 98 13 132/81 96 03/15/25 00:30 100 20 155/94 97 03/15/25 00:10 99 13 155/94 97 03/15/25 00:00 97.6 F 97 18 159/107 97 03/14/25 23:30 13 148/103 97 03/14/25 23:00 101 H 13 149/92 96 03/14/25 22:30 101 H 17 93 L 03/14/25 22:09 105 H 20 132/113 93 L 03/14/25 21:45 108 H 20 99/52 93 L 03/14/25 21:02 123 H 20 127/93 93 L 03/14/25 20:47 135 H 24 96 03/14/25 20:41 130/82 03/14/25 20:40 134 H 24 98 03/14/25 20:39 130 H 03/14/25 20:31 147 H 30 H 145/110 03/14/25 20:28 154 H 03/14/25 20:25 151 H 03/14/25 20:15 154 H 24 119/93 03/14/25 20:14 156 H 03/14/25 19:40 84 18 113/81 99 03/14/25 18:35 67 03/14/25 18:26 75 03/14/25 18:11 66 17 130/75 98 03/14/25 17:10 84 19 127/80 98 03/14/25 16:13 97.6 F 73 20 144/98 98 Intake and Output 03/14/25 03/15/25 03/15/25 22:59 06:59 14:59 Intake Total 600 225 Output Total 1300 0 Balance -700 225 Intake: IV 600 225 Lactated Ringers 1,000 ml 600 225 @ 75 mls/hr IV .[id number] [facility] Rx#:[id number] Output: Urine 1300 0 Other: Voiding Method Bedside Commode Toilet # Voids 1 1 Weight 90.718 kg 92.8 kg Results 03/15/25 02:54 03/15/25 02:54 Cardiac Enzymes 03/14/25 03/14/25 03/14/25 Range/Units 16:37 16:37 22:51 AST 28 (14-36) U/L Troponin I <0.012 0.012 (0.000-0.034) ng/mL 03/15/25 Range/Units 02:40 AST (14-36) U/L Troponin I <0.012 (0.000-0.034) ng/mL Coagulation 03/14/25 Range/Units 18:11 PT 10.5 (10.0-12.5) sec APTT 22.0 (22.0-30.0) sec CBC 03/14/25 03/15/25 Range/Units 16:37 02:54 WBC 9.40 20.87 H (4.50-10.00) 10*3/uL RBC 4.85 5.04 (4.10-5.20) 10*6/uL Hgb 12.4 12.8 (12.0-15.0) g/dL Hct 38.4 40.6 (37.2-46.3) % Plt Count 383 415 (140-440) 10*3/uL Comprehensive Metabolic Panel 06/20/25 06/21/25 Range/Units 16:37 02:54 Sodium 139 136 L (137-145) mmol/L Potassium 4.2 4.2 (3.5-5.1) mmol/L Chloride 108 H 105 (98-107) mmol/L Carbon Dioxide 23 20 L (22-30) mmol/L BUN 10 12 (7-17) mg/dL Creatinine 0.72 0.87 (0.52-1.04) mg/dL Glucose 93 194 H (74-99) mg/dL Calcium 9.6 9.3 (8.4-10.2) mg/dL AST 28 (14-36) U/L ALT 24 (4-34) U/L Alkaline Phosphatase 126 (38-126) U/L Total Protein 6.6 (6.3-8.2) g/dL Albumin 4.1 (3.5-5.0) g/dL Current Medications Generic Name Dose Route Start Last Admin Trade Name Freq PRN Reason Stop Dose Admin Acetaminophen 325 mg 03/14/25 23:13 Acetaminophen Tab 325 Mg Tab PO Q6HR PRN Fever and/ or Pain Hydrocodone Bitart/Acetaminophen 1 each 03/14/25 23:12 03/15/25 05:26 Hydrocodone/Apap 5-325mg 1 Each Tab PO 1 each Q6HR PRN Administration Pain Albuterol/Ipratropium 3 ml 03/15/25 08:00 03/15/25 11:28 Ipratropium-Albuterol 3 Ml Neb INHALATION 3 ml RT-QID [facility] Administration Albuterol/Ipratropium 3 ml 03/14/25 21:00 03/15/25 04:34 Ipratropium-Albuterol 3 Ml Neb INHALATION 3 ml RT-QID PRN Administration Shortness Of Breath Or Wheezing Aspirin 81 mg 03/16/25 09:00 Aspirin 325 Mg Tab PO DAILY [facility] Atorvastatin Calcium 80 mg 03/15/25 21:00 Atorvastatin 80 Mg Tab PO HS [facility] Clopidogrel Bisulfate 75 mg 03/15/25 11:45 Clopidogrel 75 Mg Tab PO DAILY [facility] Dextrose/Water 25 ml 03/14/25 23:14 Dextrose 50% Syringe 50 Ml IVP PER PROTOCOL PRN Hypoglycemia Protocol Dextrose/Water 50 ml 03/14/25 23:14 Dextrose 50% Syringe 50 Ml IVP PER PROTOCOL PRN Hypoglycemia Protocol Diphenhydramine HCl 25 mg 03/15/25 00:00 03/15/25 11:05 Diphenhydramine 50 Mg/Ml 1 Ml Vial IVP 25 mg Q6HR [facility] Administration Famotidine 20 mg 03/15/25 09:00 03/15/25 08:55 Famotidine 20 Mg/2 Ml Vial IV 20 mg Q12HR [facility] Administration Insulin Human Lispro 0 unit 03/14/25 23:19 03/15/25 11:05 Insulin Lispro (Humalog) 100 Unit/Ml 10 Ml Vl SQ 2 unit ACHS [facility] Administration Protocol Isosorbide Mononitrate 30 mg 03/15/25 11:45 Isosorbide Mononitrate Er 30 Mg Tab.Er.24h PO DAILY [facility] Lisinopril 10 mg 03/15/25 11:45 Lisinopril 10 Mg Tab PO DAILY [facility] Methylprednisolone Sodium Succinate 60 mg 03/15/25 02:00 03/15/25 08:55 Methylprednisolone Sod Succi 125 Mg/2 Ml Vial IV 60 mg Q6H [facility] Administration Metoprolol Tartrate 25 mg 03/15/25 11:45 Metoprolol Tartrate 25 Mg Tab PO BID [facility] Naloxone HCl 0.2 mg 03/14/25 22:23 Naloxone 0.4 Mg/Ml 1 Ml Vial IV Q2M PRN Opioid Reversal Nitroglycerin 0.4 mg 03/14/25 21:02 Nitroglycerin Sl Tabs 0.4 Mg Tab SUBLINGUAL Q5M PRN Chest Pain Nitroglycerin 1 inch 03/15/25 00:00 03/15/25 11:05 Nitroglycerin Oint 1 Inch/Gm Packet TOPICAL 1 inch Q6HR [facility] Administration Ondansetron HCl 4 mg 03/14/25 23:13 03/14/25 23:24 Ondansetron 4 Mg/2 Ml Vial IVP 4 mg Q6HR PRN Administration Nausea And Vomiting Ranolazine 1,000 mg 03/15/25 11:45 Ranolazine 500 Mg Tab.Er.12h PO Q12HR [facility] Intake and Output 03/14/25 03/15/25 03/15/25 22:59 06:59 14:59 Intake Total 600 225 Output Total 1300 0 Balance -700 225 Intake: IV 600 225 Lactated Ringers 1,000 ml 600 225 @ 75 mls/hr IV .[id number] [facility] Rx#:[id number] Output: Urine 1300 0 Other: Voiding Method Bedside Commode Toilet # Voids 1 1 Weight 90.718 kg 92.8 kg 03/15/25 02:54 03/15/25 02:54
[2025-03-15] MEDS: ISOSORBIDE MONONITRATE ER 30 MG TAB.ER.24H PO SCH (12:16)
[2025-03-15] MEDS: METOPROLOL TARTRATE 25 MG TAB PO SCH (12:20)
[2025-03-15] MEDS: lisinopriL 10 MG TAB PO SCH (12:20)
[2025-03-15] MEDS: RANOLAZINE 500 MG TAB.ER.12H PO SCH (12:20)
[2025-03-15] MEDS: CLOPIDOGREL 75 MG TAB PO SCH (12:20)
[2025-03-15 13:23] LABS: Chol/HDL Ratio 3.98 Ratio
[2025-03-15 13:25] LABS: LDL Cholesterol,Calculated 123.4 mg/dL (0.0-131.0)
[2025-03-15 16:50] LABS: Glucose,Whole Blood 210 mg/dL (70-110)
[2025-03-15 19:43] LABS: Glucose,Whole Blood 172 mg/dL (70-110)
[2025-03-15] MEDS: ATORVASTATIN 80 MG TAB PO SCH (19:51)
[2025-03-15] MEDS: hydrOXYzine HCL 25 MG TAB PO STA (20:48)
[2025-03-15] MEDS: ALPRAZolam 0.5 MG TAB PO PRN (20:48)
[2025-03-16 03:37] LABS: HCT 33.5 % (37.2-46.3); HGB 10.6 g/dL (12.0-15.0); MCH 25.2 pg (27.0-32.0); MCHC 31.6 g/dL (32.0-37.0); MCV 79.6 fL (80.0-97.0); Mean Platelet Volume 10.4 fL (9.5-12.2); Platelet Count 400 10*3/uL (140-440); RBC 4.21 10*6/uL (4.10-5.20); RDW 21.4 % (11.5-14.5); WBC 21.85 10*3/uL (4.50-10.00)
[2025-03-16 03:52] LABS: African American GFR (CKD) >90 (>60 ml/min/1.73 sqM); Anion Gap 10 mmol/L; Blood Urea Nitrogen 16 mg/dL (7-17); Carbon Dioxide 23 mmol/L (22-30); Chloride 103 mmol/L (98-107); Glucose 183 mg/dL (74-99); Non-African American GFR(CKD) 80 (>60 ml/min/1.73 sqM); Sodium 136 mmol/L (137-145)
[2025-03-16 06:04] LABS: Glucose,Whole Blood 193 mg/dL (70-110)
[2025-03-16] MEDS: ASPIRIN 81 MG PO SCH (08:22)
--- NOTE | 2025-03-16 10:41 | P.PN ---
Subjective Progress Note Date: 03/16/25 This is a 54-year-old female patient with a known history of chronic obstructive pulmonary disease chronic and ongoing tobacco dependence, coronary artery disease with previous stent placements, subsequent coronary artery bypass grafting, anxiety, bipolar disorder, diabetes mellitus, hypertension, marijuana use. She presented here to the emergency department yesterday with complaints of chest pain. EKG revealed sinus rhythm with no significant ST or T wave abnormality. Chest x-ray revealed no acute pulmonary disease. White count 20.8. Hemoglobin 12.8. Platelets 415. Sodium 136. Potassium 4.2. Bicarb 20. BUN 12. Creatinine 0.87. Glucose 195. Troponins were negative x 3. proBNP 458. D-dimer was 0.92 and she did undergo a CT angiogram. She does have a contrast allergy and she was pretreated before the test. Pulmonary embolism was ruled out. There was no acute pulmonary process. Some evidence of emphysema. Following the scan she developed a severe anaphylactic reaction. She was treated in the emergency department with steroids, Benadryl and epinephrine 0.3 mg IM x 3 and multiple breathing treatments. She was admitted to the intensive care unit for further observation. Presently she is sitting up in bed. Awake and alert in no acute distress. She has been maintaining good O2 saturations in the upper 90s on 2 L/min per nasal cannula. She has been afebrile. Hemodyn amically stable. Denies any chest pain currently. No shortness of breath. No tongue swelling. No lip swelling. Feeling back to her baseline. The patient is seen today March 16, 2025 in follow-up in the intensive care unit. She remains a 3 S. overflow patient. Awake and alert no acute distress. She is up ambulating in the hallway. Maintaining O2 saturations in the mid 90s on 2 L/min per nasal cannula. She has been afebrile. Hemodynamically stable. She is still having episodes of itching of her skin and a scratchiness in the back of her throat. White count 21.8. Hemoglobin 10.6. Platelets 400,000. Sodium 136. Potassium 5.0. Bicarb 23. BUN 16. Creatinine 0.83. Glucose 183. She is continued on DuoNeb and elations. Remains on Benadryl, Solu-Medrol and Pepcid. Objective - Vital Signs Vital signs: Vital Signs Temp 97 F L 06/22/25 08:00 Pulse 83 03/16/25 08:19 Resp 16 03/16/25 08:00 BP 104/54 03/16/25 08:00 Pulse Ox 96 03/16/25 08:08 FiO2 Intake & Output 03/15/25 03/16/25 03/16/25 18:59 06:59 18:59 Intake Total 375 Output Total 0 Balance 375 Intake: IV 225 Lactated Ringers 1,000 ml 225 @ 75 mls/hr IV .[id number] [facility] Rx#:[id number] Oral 150 Output: Urine 0 Other: Voiding Method Toilet Toilet # Voids 3 3 - Exam GENERAL EXAM: Alert, active, ambulating in the hallway, on 2 L nasal cannula, comfortable in no apparent distress. HEAD: Normocephalic. EYES: Normal reaction of pupils, equal size. NOSE: Clear with pink turbinates. THROAT: No erythema or exudates. NECK: No masses, no JVD. CHEST: No chest wall deformity. LUNGS: Equal air entry with no crackles, wheeze, rhonchi or dullness. CVS: S1 and S2 normal with no audible murmur, regular rhythm. ABDOMEN: No hepatosplenomegaly, normal bowel sounds, no guarding or rigidity. SPINE: No scoliosis or deformity SKIN: No rashes CENTRAL NERVOUS SYSTEM: No focal deficits, tone is normal in all 4 extremities. EXTREMITIES: There is no peripheral edema. No clubbing, no cyanosis. Peripheral pulses are intact. - Labs CBC & Chem 7: 03/16/25 03:01 03/16/25 03:01 Labs: Abnormal Lab Results - Last 24 Hours (Table) 03/15/25 03/15/25 03/15/25 Range/Units 10:57 16:49 19:42 WBC (4.50-10.00) 10*3/uL Hgb (12.0-15.0) g/dL Hct (37.2-46.3) % MCV (80.0-97.0) fL MCH (27.0-32.0) pg MCHC (32.0-37.0) g/dL Sodium (137-145) mmol/L Glucose (74-99) mg/dL POC Glucose (mg/dL) 197 H 210 H 172 H (70-110) mg/dL 03/16/25 03/16/25 03/16/25 Range/Units 03:01 03:01 06:02 WBC 21.85 H (4.50-10.00) 10*3/uL Hgb 10.6 L (12.0-15.0) g/dL Hct 33.5 L (37.2-46.3) % MCV 79.6 L (80.0-97.0) fL MCH 25.2 L (27.0-32.0) pg MCHC 31.6 L (32.0-37.0) g/dL Sodium 136 L (137-145) mmol/L Glucose 183 H (74-99) mg/dL POC Glucose (mg/dL) 193 H (70-110) mg/dL Assessment and Plan Assessment: Atypical chest pain, acute coronary syndrome ruled out Mildly elevated D-dimer, CT angiogram ruled out pulmonary embolism. No acute pulmonary process Anaphylaxis reaction secondary to IV contrast despite being pre-treated Chronic obstructive pulmonary disease Chronic and ongoing tobacco dependence History of marijuana use Coronary disease with previous stent placements, subsequent CABG Bipolar disorder Diabetes mellitus Hypertension Plan: The patient was seen and evaluated Labs and medications reviewed Stable and on 2 L nasal cannula Discontinue IV Solu-Medrol Initiate a prednisone taper Continue Benadryl Continue Pepcid Continue DuoNeb inhalations Transfer to a regular medical floor Cleared for discharge to home I have personally seen and examined the patient, performed the documentation and the assessment and plan as written. Number of minutes spent on the visit: 10 Dictation was produced using [employer] dictation software. Please excuse any grammatical, word or spelling errors.
[2025-03-16 11:36] LABS: Glucose,Whole Blood 269 mg/dL (70-110)
[2025-03-16] MEDS: predniSONE 20 MG TAB PO SCH (12:18)
[2025-03-16] MEDS: ACETAMINOPHEN TAB 325 MG TAB PO PRN (12:18)
[2025-03-16] MEDS: diphenhydrAMINE 25 MG CAP PO PRN (12:18)
[2025-03-16 12:42] VITALS: BP 118/70; PULSE 72; RESP 18; TEMP 98.4
[2025-03-16] MEDS ORDERED: FAMOTIDINE 20 MG TAB PO SCH (21:00)
== END 2025-03-16 13:13 | disposition home or self-care (01) | DRG 198 ==
LOC: EC 16:11 → 3SCARD 21:03 → 2SICU 21:37
PROVIDERS: ADMIT Internal Medicine; ATTEND Internal Medicine
DX: R07.89 Other chest pain (principal); T50.8X5A Adverse effect of diagnostic agents, initial encounter; T82.855A Stenosis of coronary artery stent, initial encounter; T88.6XXA Anaphylactic reaction due to adverse effect of correct drug or medicament properly administered, initial encounter; Y83.1 Surgical operation with implant of artificial internal device as the cause of abnormal reaction of the patient, or of later complication, without mention of misadventure at the time of the procedure; Z66 Do not resuscitate; E11.9 Type 2 diabetes mellitus without complications; E78.5 Hyperlipidemia, unspecified; F17.200 Nicotine dependence, unspecified, uncomplicated; R79.1 Abnormal coagulation profile; K21.9 Gastro-esophageal reflux disease without esophagitis; F41.9 Anxiety disorder, unspecified; F31.9 Bipolar disorder, unspecified; M19.90 Unspecified osteoarthritis, unspecified site; G25.81 Restless legs syndrome; I10 Essential (primary) hypertension; I25.10 Atherosclerotic heart disease of native coronary artery without angina pectoris; I25.2 Old myocardial infarction; I25.810 Atherosclerosis of coronary artery bypass graft(s) without angina pectoris; J43.9 Emphysema, unspecified; J44.89 Other specified chronic obstructive pulmonary disease; M41.9 Scoliosis, unspecified; Z79.02 Long term (current) use of antithrombotics/antiplatelets; Z79.82 Long term (current) use of aspirin; Z79.84 Long term (current) use of oral hypoglycemic drugs; Z79.899 Other long term (current) drug therapy; Z90.49 Acquired absence of other specified parts of digestive tract; Z91.041 Radiographic dye allergy status; Z87.01 Personal history of pneumonia (recurrent); Z28.310 Unvaccinated for COVID-19
CPT/HCPCS: 36415; 71046; 71275; 80048; 80053; 80061; 83735; 83880; 84484; 85025; 85027; 85379; 85610; 85730; 93005; 94640; 94760; 96372; 96374; 96375; 99291